=== PATIENT | male | born 1935 | race African-American/Black ===

== ENCOUNTER → 2016-11-29 | Outpatient (CLI) | payer MEDICARE, OTHER ==
[2016-11-29] VITALS (10 sets, daily range): BP systolic 99–116; BP diastolic 52–75
[~2016-11-29] MED LIST: CARI-277 PO; CYANOCOBALAMIN (B-12) 1000 MCG/1 ML VIAL IM ONE; DOBUTamine 1000MCG/ML 250 ML IV ONE; DOCU-94 PO; ESZO1TAB21 PO; EZET10TA2 PO; FURO40TA4 PO; METO25TA5 PO; NOR5T PO; POT20T PO; PRAS10TA PO; SIMV-8 PO
[2016-11-29 12:44] LABS: BUN/Creatinine Ratio 15.2; Calcium 8.5 mg/dL (8.5-10.1); Potassium 4.4 mmol/L (3.5-5.1)
[2016-11-29 12:54] LABS: Basophils # (auto) 0 uL; Basophils % (auto) 0.7 % (0.0-2.0); Eosinophils # (auto) 0.4 uL; Hemoglobin 13.6 g/dL (13.5-17.5); Lymphocytes # (auto) 1.1 uL; Mean Corpuscular Hemoglobin 31.5 pg (28.0-32.0); Mean Corpuscular Hgb Conc. 32.3 g/dL (32.0-36.0); Mean Corpuscular Volume 97.7 fL (80.0-100.0); Mean Platelet Volume 8.6 fL (7.4-10.4); Monocytes # (auto) 0.5 uL; Monocytes % (auto) 11.9 % (0.0-12.0); Neutrophils # (auto) 2.4 uL; Neutrophils % (auto) 55.4 % (37.0-80.0); Platelet Count (auto) 203 10^3/uL (140-450); Red Cell Distribution Width 14.2 % (11.6-16.0); White Blood Cell 4.4 10^3/uL (4.4-10.8)
[2016-11-29 13:00] LABS: B-Type Natriuretic Peptide 571.46 pg/mL (0-100); Temperature: 22.2 C (20.0-25.0)
== END | disposition home or self-care (01) ==
LOC: CHF HDHVI 07:33
PROVIDERS: ATTEND Internal Medicine Cardiovascular Disease
DX: I10 Essential (primary) hypertension (principal); I50.9 Heart failure, unspecified; D64.9 Anemia, unspecified
CPT/HCPCS: 36415; 80048; 83880; 85025; 96365; 96366; 96372; G0463; J1642

== ENCOUNTER → 2016-12-01 | Outpatient (CLI) | payer OTHER ==
[~2016-12-01] VITALS: Ht 30.5 cm; Wt 85.0 kg
[2016-12-01] VITALS (9 sets, daily range): BP systolic 93–112; BP diastolic 48–63
[~2016-12-01] MED LIST changes: -CYANOCOBALAMIN (B-12) 1000 MCG/1 ML VIAL IM ONE
== END ==
LOC: CHF HDHVI 07:38
PROVIDERS: ATTEND Internal Medicine Cardiovascular Disease
DX: I50.9 Heart failure, unspecified (principal); I25.10 Atherosclerotic heart disease of native coronary artery without angina pectoris; Z95.1 Presence of aortocoronary bypass graft; I10 Essential (primary) hypertension; R52 Pain, unspecified; I25.5 Ischemic cardiomyopathy
CPT/HCPCS: 96365; 96366; G0463; J1250; J1642; 96367

== ENCOUNTER → 2016-12-05 | Outpatient (CLI) | payer OTHER ==
[2016-12-05] VITALS (8 sets, daily range): BP systolic 95–113; BP diastolic 55–67
[~2016-12-05] VITALS: Ht 30.5 cm; Wt 84.5 kg
== END | disposition home or self-care (01) ==
LOC: CHF HDHVI 07:36
PROVIDERS: ATTEND Internal Medicine Cardiovascular Disease
DX: I50.9 Heart failure, unspecified (principal)
CPT/HCPCS: 96365; 96366; G0463; J1250; J1642

== ENCOUNTER → 2016-12-07 | Outpatient (CLI) | payer OTHER ==
[~2016-12-07] VITALS: Ht 30.5 cm; Wt 83.9 kg
[2016-12-07] VITALS (8 sets, daily range): BP systolic 87–103; BP diastolic 48–58
[~2016-12-07] MED LIST changes: +CYANOCOBALAMIN (B-12) 1000 MCG/1 ML VIAL IM ONE; +CYANOCOBALAMIN (B-12) 1000 MCG/1 ML VIAL ONE
[2016-12-07 17:17] LABS: B-Type Natriuretic Peptide 510.65 pg/mL (0-100)
[2016-12-07 17:18] LABS: Temperature: 22.5 C (20.0-25.0)
[2016-12-07 17:28] LABS: BUN/Creatinine Ratio 16.8; Potassium 4.1 mmol/L (3.5-5.1)
== END | disposition home or self-care (01) ==
LOC: CHF HDHVI 07:36
PROVIDERS: ATTEND Internal Medicine Cardiovascular Disease
DX: I10 Essential (primary) hypertension (principal); I50.9 Heart failure, unspecified
CPT/HCPCS: 36415; 80048; 83880; 96365; 96366; 96372; G0463; J1642

== ENCOUNTER → 2016-12-09 | Outpatient (CLI) | payer OTHER ==
[2016-12-09] VITALS (9 sets, daily range): BP systolic 86–110; BP diastolic 40–66
[~2016-12-09] MED LIST changes: -CYANOCOBALAMIN (B-12) 1000 MCG/1 ML VIAL IM ONE; -CYANOCOBALAMIN (B-12) 1000 MCG/1 ML VIAL ONE
[2016-12-09 16:14] LABS: Urine Bilirubin Negative (Negative); Urine Blood Negative /uL (Negative); Urine Color Yellow (Yellow); Urine Glucose Normal (Normal); Urine Ketone Negative (Negative); Urine Nitrite Negative (Negative); Urine Urobilinogen Normal (Negative); Urine pH 5.5 (5.0-8.0)
== END | disposition home or self-care (01) ==
LOC: CHF HDHVI 07:36
PROVIDERS: ATTEND Internal Medicine Cardiovascular Disease
DX: N39.0 Urinary tract infection, site not specified (principal)
CPT/HCPCS: 81003; 87086; 96365; 96366; 96367; G0463; J1642

== ENCOUNTER → 2016-12-12 | Outpatient (CLI) | payer OTHER ==
[2016-12-12] VITALS (9 sets, daily range): BP systolic 92–114; BP diastolic 50–78
== END | disposition home or self-care (01) ==
LOC: CHF HDHVI 07:42
PROVIDERS: ATTEND Internal Medicine Cardiovascular Disease
DX: I11.0 Hypertensive heart disease with heart failure (principal); I50.9 Heart failure, unspecified; I25.10 Atherosclerotic heart disease of native coronary artery without angina pectoris; D64.9 Anemia, unspecified; Z95.1 Presence of aortocoronary bypass graft
CPT/HCPCS: 96365; 96366; G0463; J1250; J1642

== ENCOUNTER → 2016-12-14 | Outpatient (CLI) | payer OTHER ==
[2016-12-14] VITALS (9 sets, daily range): BP systolic 92–107; BP diastolic 50–59
[2016-12-14 16:40] LABS: Basophils # (auto) 0 uL; Basophils % (auto) 0.7 % (0.0-2.0); Eosinophils # (auto) 0.3 uL; Eosinophils % (auto) 9.1 % (0.0-7.0); Hematocrit 43.6 % (41.0-53.0); Hemoglobin 14.4 g/dL (13.5-17.5); Lymphocytes # (auto) 0.9 uL; Lymphocytes % (auto) 25.7 % (10.0-50.0); Mean Corpuscular Hemoglobin 32.2 pg (28.0-32.0); Mean Corpuscular Hgb Conc. 33.1 g/dL (32.0-36.0); Mean Corpuscular Volume 97.2 fL (80.0-100.0); Mean Platelet Volume 9.2 fL (7.4-10.4); Monocytes # (auto) 0.5 uL; Monocytes % (auto) 13.5 % (0.0-12.0); Neutrophils # (auto) 1.8 uL; Platelet Count (auto) 186 10^3/uL (140-450); Red Cell Distribution Width 14.6 % (11.6-16.0); White Blood Cell 3.6 10^3/uL (4.4-10.8)
[2016-12-14 16:50] LABS: BUN/Creatinine Ratio 12.3; Calcium 8.2 mg/dL (8.5-10.1); Magnesium 2.5 mg/dL (1.6-2.6); Potassium 3.8 mmol/L (3.5-5.1)
[2016-12-14 17:11] LABS: B-Type Natriuretic Peptide 433.62 pg/mL (0-100); Temperature: 21.9 C (20.0-25.0)
== END | disposition home or self-care (01) ==
LOC: CHF HDHVI 07:32
PROVIDERS: ATTEND Internal Medicine Cardiovascular Disease
DX: I10 Essential (primary) hypertension (principal); I50.9 Heart failure, unspecified; E83.40 Disorders of magnesium metabolism, unspecified; D64.9 Anemia, unspecified
CPT/HCPCS: 36415; 80048; 83735; 83880; 85025; 85049; 96365; 96366; G0463; J1642

== ENCOUNTER → 2016-12-16 | Outpatient (CLI) | payer OTHER ==
[2016-12-16] VITALS (9 sets, daily range): BP systolic 90–104; BP diastolic 51–66
== END | disposition home or self-care (01) ==
LOC: CHF HDHVI 07:35
PROVIDERS: ATTEND Internal Medicine Cardiovascular Disease
DX: I10 Essential (primary) hypertension (principal); I50.9 Heart failure, unspecified; I25.10 Atherosclerotic heart disease of native coronary artery without angina pectoris
CPT/HCPCS: 96365; 96366; G0463; J1250; J1642

== ENCOUNTER → 2016-12-19 | Outpatient (CLI) | payer OTHER ==
[2016-12-19] VITALS (9 sets, daily range): BP systolic 87–114; BP diastolic 45–71
== END | disposition home or self-care (01) ==
LOC: CHF HDHVI 07:34
PROVIDERS: ATTEND Internal Medicine Cardiovascular Disease
DX: I50.9 Heart failure, unspecified (principal); I25.10 Atherosclerotic heart disease of native coronary artery without angina pectoris; R53.83 Other fatigue; R53.81 Other malaise
CPT/HCPCS: 96365; 96366; G0463; J1250; J1642

== ENCOUNTER → 2016-12-21 | Outpatient (CLI) | payer OTHER ==
[2016-12-21] VITALS (8 sets, daily range): BP systolic 92–135; BP diastolic 53–69
[2016-12-21 12:33] LABS: Basophils # (auto) 0.1 uL; DEFINITIVE VIEW TRANSMISSION; Eosinophils # (auto) 0.2 uL; Hematocrit 44.9 % (41.0-53.0); Hemoglobin 14.2 g/dL (13.5-17.5); Lymphocytes # (auto) 1.2 uL; Mean Corpuscular Hemoglobin 31.3 pg (28.0-32.0); Mean Corpuscular Hgb Conc. 31.7 g/dL (32.0-36.0); Mean Platelet Volume 9.1 fL (7.4-10.4); Monocytes # (auto) 0.6 uL; Monocytes % (auto) 15.1 % (0.0-12.0); Platelet Count (auto) 149 10^3/uL (140-450); Red Cell Distribution Width 13.4 % (11.6-16.0); White Blood Cell 4.1 10^3/uL (4.4-10.8)
[2016-12-21 12:36] LABS: Basophils % (auto) 0.1 % (0.0-2.0)
[2016-12-21 12:37] LABS: Lymphocytes % (auto) 31.6 % (10.0-50.0); Neutrophils % (auto) 47.2 % (37.0-80.0)
[2016-12-21 13:17] LABS: BUN/Creatinine Ratio 15.6; Calcium 8.8 mg/dL (8.5-10.1); Magnesium 2.5 mg/dL (1.6-2.6)
[2016-12-21 13:36] LABS: B-Type Natriuretic Peptide 550.91 pg/mL (0-100); Temperature: 22.4 C (20.0-25.0)
== END | disposition home or self-care (01) ==
LOC: CHF HDHVI 07:38
PROVIDERS: ATTEND Internal Medicine Cardiovascular Disease
DX: I10 Essential (primary) hypertension (principal); I50.9 Heart failure, unspecified; E83.40 Disorders of magnesium metabolism, unspecified; D64.9 Anemia, unspecified
CPT/HCPCS: 36415; 80048; 83735; 83880; 85025; 85049; 93701; 96365; 96366; G0463; J1642

== ENCOUNTER → 2016-12-23 | Outpatient (CLI) | payer OTHER ==
[2016-12-23] VITALS (8 sets, daily range): BP systolic 91–127; BP diastolic 51–70
== END | disposition home or self-care (01) ==
LOC: CHF HDHVI 07:37
PROVIDERS: ATTEND Internal Medicine Cardiovascular Disease
DX: I50.9 Heart failure, unspecified (principal); I10 Essential (primary) hypertension; I25.10 Atherosclerotic heart disease of native coronary artery without angina pectoris
CPT/HCPCS: 96365; 96366; G0463; J1250; J1642; 96367

== ENCOUNTER → 2016-12-26 | Outpatient (CLI) | payer OTHER ==
[2016-12-26] VITALS (9 sets, daily range): BP systolic 95–105; BP diastolic 52–69
[~2016-12-26] VITALS: Ht 30.5 cm; Wt 84.4 kg
[~2016-12-26] MED LIST changes: +CYANOCOBALAMIN (B-12) 1000 MCG/1 ML VIAL IM ONE; +CYANOCOBALAMIN (B-12) 1000 MCG/1 ML VIAL ONE
== END | disposition home or self-care (01) ==
LOC: CHF HDHVI 07:45
PROVIDERS: ATTEND Internal Medicine Cardiovascular Disease
DX: I50.9 Heart failure, unspecified (principal); I25.10 Atherosclerotic heart disease of native coronary artery without angina pectoris; D64.9 Anemia, unspecified; R53.81 Other malaise; R53.83 Other fatigue
CPT/HCPCS: 96365; 96366; 96372; G0463; J1250; J1642; J3420

== ENCOUNTER → 2016-12-28 | Outpatient (CLI) | payer OTHER ==
[2016-12-28] VITALS (9 sets, daily range): BP systolic 92–112; BP diastolic 52–75
[~2016-12-28] MED LIST changes: -CYANOCOBALAMIN (B-12) 1000 MCG/1 ML VIAL IM ONE; -CYANOCOBALAMIN (B-12) 1000 MCG/1 ML VIAL ONE
[2016-12-28 14:02] LABS: Basophils # (auto) 0 uL; Basophils % (auto) 0.7 % (0.0-2.0); Eosinophils # (auto) 0.3 uL; Eosinophils % (auto) 8.5 % (0.0-7.0); Hematocrit 44.2 % (41.0-53.0); Hemoglobin 14.1 g/dL (13.5-17.5); Lymphocytes % (auto) 26.3 % (10.0-50.0); Mean Corpuscular Hemoglobin 30.9 pg (28.0-32.0); Mean Corpuscular Hgb Conc. 31.9 g/dL (32.0-36.0); Mean Corpuscular Volume 96.9 fL (80.0-100.0); Mean Platelet Volume 8.9 fL (7.4-10.4); Monocytes # (auto) 0.5 uL; Monocytes % (auto) 13.9 % (0.0-12.0); Neutrophils % (auto) 50.6 % (37.0-80.0); Platelet Count (auto) 176 10^3/uL (140-450); White Blood Cell 3.9 10^3/uL (4.4-10.8)
[2016-12-28 14:16] LABS: Potassium 4.4 mmol/L (3.5-5.1)
[2016-12-28 14:46] LABS: BUN/Creatinine Ratio 16.2; Calcium 8.8 mg/dL (8.5-10.1); Magnesium 2.5 mg/dL (1.6-2.6)
[2016-12-28 16:28] LABS: B-Type Natriuretic Peptide 554.28 pg/mL (0-100); Temperature: 22.2 C (20.0-25.0)
== END | disposition home or self-care (01) ==
LOC: CHF HDHVI 07:34
PROVIDERS: ATTEND Internal Medicine Cardiovascular Disease
DX: I10 Essential (primary) hypertension (principal); I50.9 Heart failure, unspecified; E83.40 Disorders of magnesium metabolism, unspecified; D64.9 Anemia, unspecified
CPT/HCPCS: 36415; 80048; 83735; 83880; 85025; 96365; 96366; G0463; J1642

== ENCOUNTER → 2016-12-30 | Outpatient (CLI) | payer OTHER ==
[2016-12-30] VITALS (9 sets, daily range): BP systolic 95–103; BP diastolic 50–67
== END | disposition home or self-care (01) ==
LOC: CHF HDHVI 07:38
PROVIDERS: ATTEND Internal Medicine Cardiovascular Disease
DX: I11.0 Hypertensive heart disease with heart failure (principal); I50.9 Heart failure, unspecified; I25.10 Atherosclerotic heart disease of native coronary artery without angina pectoris
CPT/HCPCS: 96365; 96366; G0463; J1250; J1642; 96367

== ENCOUNTER → 2017-01-02 | Outpatient (CLI) | payer OTHER ==
[2017-01-02] VITALS (8 sets, daily range): BP systolic 94–103; BP diastolic 50–62
== END ==
LOC: CHF HDHVI 07:33
PROVIDERS: ATTEND Internal Medicine Cardiovascular Disease
DX: I11.0 Hypertensive heart disease with heart failure (principal); I50.9 Heart failure, unspecified; I25.10 Atherosclerotic heart disease of native coronary artery without angina pectoris; D64.9 Anemia, unspecified; Z95.1 Presence of aortocoronary bypass graft
CPT/HCPCS: 96365; 96366; G0463; J1250; J1642

== ENCOUNTER → 2017-01-04 | Outpatient (CLI) | payer OTHER ==
[2017-01-04] VITALS (8 sets, daily range): BP systolic 94–117; BP diastolic 51–66
[~2017-01-04] VITALS: Ht 30.5 cm; Wt 85.4 kg
[2017-01-04 14:02] LABS: B-Type Natriuretic Peptide 567.73 pg/mL (0-100)
[2017-01-04 14:04] LABS: Albumin 3.8 g/dL (3.4-5.0); Bilirubin, Direct 0.1 mg/dL (0-0.2); Bilirubin, Total 0.5 mg/dL (0.2-1.0); Potassium 4.3 mmol/L (3.5-5.1); Total Protein 7.3 g/dL (6.4-8.2)
== END | disposition home or self-care (01) ==
LOC: CHF HDHVI 07:34
PROVIDERS: ATTEND Internal Medicine Cardiovascular Disease
DX: K74.1 Hepatic sclerosis (principal); I11.0 Hypertensive heart disease with heart failure; I50.9 Heart failure, unspecified; I25.10 Atherosclerotic heart disease of native coronary artery without angina pectoris
CPT/HCPCS: 36415; 80076; 82565; 83880; 84132; 84520; 96365; 96366; G0463; J1250; J1642

== ENCOUNTER → 2017-01-06 | Outpatient (CLI) | payer OTHER ==
[2017-01-06] VITALS (9 sets, daily range): BP systolic 94–107; BP diastolic 51–71
[~2017-01-06] MED LIST changes: +CYANOCOBALAMIN (B-12) 1000 MCG/1 ML VIAL IM ONE; +CYANOCOBALAMIN (B-12) 1000 MCG/1 ML VIAL ONE
== END | disposition home or self-care (01) ==
LOC: CHF HDHVI 07:47
PROVIDERS: ATTEND Internal Medicine Cardiovascular Disease
DX: I50.9 Heart failure, unspecified (principal); D64.9 Anemia, unspecified
CPT/HCPCS: 96365; 96366; 96372; G0463; J1250; J1642; J3420

== ENCOUNTER → 2017-01-09 | Outpatient (CLI) | payer OTHER ==
[~2017-01-09] VITALS: Ht 2.5 cm; Wt 85.9 kg
[~2017-01-09] MED LIST changes: -CYANOCOBALAMIN (B-12) 1000 MCG/1 ML VIAL IM ONE; +KETOROLAC TROMETH 60MG/2ML VIAL IM ONE
[2017-01-09 07:50] VITALS: BP 104/66
[2017-01-09 08:00] VITALS: BP 96/46
[2017-01-09 08:15] VITALS: BP 87/45
[2017-01-09 08:30] VITALS: BP 81/44
[2017-01-09 09:00] VITALS: BP 89/53
[2017-01-09 09:30] VITALS: BP 88/51
[2017-01-13 12:22] VITALS: BP 112/68
[2017-01-13 12:23] VITALS: BP 118/66
[2017-01-13 12:24] VITALS: BP 118/66
[2017-01-13 12:25] VITALS: BP 118/66
== END | disposition home or self-care (01) ==
LOC: CHF HDHVI 07:37
PROVIDERS: ATTEND Internal Medicine Cardiovascular Disease
DX: I50.9 Heart failure, unspecified (principal); I25.9 Chronic ischemic heart disease, unspecified; M54.9 Dorsalgia, unspecified
CPT/HCPCS: 96365; 96366; 96372; G0463; J1250; J1642; J1885

== ENCOUNTER → 2017-01-11 | Outpatient (CLI) | payer OTHER ==
[~2017-01-11] VITALS: Ht 30.5 cm; Wt 86.2 kg
[2017-01-11] VITALS (9 sets, daily range): BP systolic 92–111; BP diastolic 52–72
[~2017-01-11] MED LIST changes: -CYANOCOBALAMIN (B-12) 1000 MCG/1 ML VIAL ONE; -KETOROLAC TROMETH 60MG/2ML VIAL IM ONE
[2017-01-11 13:10] LABS: Potassium 4.2 mmol/L (3.5-5.1)
[2017-01-11 13:23] LABS: Basophils # (auto) 0 uL; Basophils % (auto) 0.5 % (0.0-2.0); Eosinophils # (auto) 0.3 uL; Hematocrit 42.6 % (41.0-53.0); Hemoglobin 13.8 g/dL (13.5-17.5); Lymphocytes # (auto) 1.1 uL; Lymphocytes % (auto) 28.9 % (10.0-50.0); Mean Corpuscular Hemoglobin 31.6 pg (28.0-32.0); Mean Corpuscular Hgb Conc. 32.3 g/dL (32.0-36.0); Mean Corpuscular Volume 97.7 fL (80.0-100.0); Mean Platelet Volume 8.9 fL (7.4-10.4); Monocytes # (auto) 0.4 uL; Monocytes % (auto) 11.8 % (0.0-12.0); Neutrophils % (auto) 51.8 % (37.0-80.0); Platelet Count (auto) 153 10^3/uL (140-450); Red Cell Distribution Width 14.2 % (11.6-16.0); White Blood Cell 3.8 10^3/uL (4.4-10.8)
[2017-01-11 16:36] LABS: B-Type Natriuretic Peptide 622.91 pg/mL (0-100); Temperature: 23.1 C (20.0-25.0)
== END | disposition home or self-care (01) ==
LOC: CHF HDHVI 07:37
PROVIDERS: ATTEND Internal Medicine Cardiovascular Disease
DX: I50.9 Heart failure, unspecified (principal); Z79.899 Other long term (current) drug therapy; D64.9 Anemia, unspecified
CPT/HCPCS: 36415; 82565; 83880; 84132; 84520; 85025; 96365; 96366; G0463; J1642

== ENCOUNTER → 2017-01-13 | Outpatient (CLI) | payer OTHER ==
[2017-01-13] VITALS (9 sets, daily range): BP systolic 100–140; BP diastolic 59–82
== END | disposition home or self-care (01) ==
LOC: CHF HDHVI 07:36
PROVIDERS: ATTEND Internal Medicine Cardiovascular Disease
DX: I11.0 Hypertensive heart disease with heart failure (principal); I50.9 Heart failure, unspecified; I25.10 Atherosclerotic heart disease of native coronary artery without angina pectoris
CPT/HCPCS: 96365; 96366; G0463; J1250; J1642

== ENCOUNTER → 2017-01-16 | Outpatient (CLI) | payer OTHER ==
[~2017-01-16] VITALS: Ht 30.5 cm; Wt 0.5 kg
[2017-01-16] VITALS (9 sets, daily range): BP systolic 89–102; BP diastolic 52–69
[~2017-01-16] MED LIST changes: +CYANOCOBALAMIN (B-12) 1000 MCG/1 ML VIAL IM ONE; +CYANOCOBALAMIN (B-12) 1000 MCG/1 ML VIAL ONE
== END | disposition home or self-care (01) ==
LOC: CHF HDHVI 07:38
PROVIDERS: ATTEND Internal Medicine Cardiovascular Disease
DX: I11.0 Hypertensive heart disease with heart failure (principal); I50.9 Heart failure, unspecified; D64.9 Anemia, unspecified; R53.83 Other fatigue; R53.81 Other malaise; Z95.1 Presence of aortocoronary bypass graft
CPT/HCPCS: 96365; 96366; 96372; G0463; J1250; J1642; J3420

== ENCOUNTER → 2017-01-18 | Outpatient (CLI) | payer OTHER ==
[2017-01-18] VITALS (10 sets, daily range): BP systolic 95–110; BP diastolic 55–74
[~2017-01-18] MED LIST changes: -CYANOCOBALAMIN (B-12) 1000 MCG/1 ML VIAL IM ONE; -CYANOCOBALAMIN (B-12) 1000 MCG/1 ML VIAL ONE
[2017-01-18 13:14] LABS: B-Type Natriuretic Peptide 698.92 pg/mL (0-100)
[2017-01-18 13:19] LABS: Calcium 9.4 mg/dL (8.5-10.1); Potassium 5.2 mmol/L (3.5-5.1)
== END | disposition home or self-care (01) ==
LOC: CHF HDHVI 07:39
PROVIDERS: ATTEND Internal Medicine Cardiovascular Disease
DX: I10 Essential (primary) hypertension (principal); I50.9 Heart failure, unspecified; E11.9 Type 2 diabetes mellitus without complications
CPT/HCPCS: 36415; 80048; 83036; 83880; 96365; 96366; G0463; J1642

== ENCOUNTER → 2017-01-20 | Outpatient (CLI) | payer OTHER ==
[2017-01-20] VITALS (8 sets, daily range): BP systolic 90–111; BP diastolic 52–77
== END | disposition home or self-care (01) ==
LOC: CHF HDHVI 07:46
PROVIDERS: ATTEND Internal Medicine Cardiovascular Disease
DX: I11.0 Hypertensive heart disease with heart failure (principal); I50.9 Heart failure, unspecified; I25.10 Atherosclerotic heart disease of native coronary artery without angina pectoris; D64.9 Anemia, unspecified; Z95.1 Presence of aortocoronary bypass graft
CPT/HCPCS: 96365; 96366; G0463; J1250; J1642

== ENCOUNTER → 2017-01-23 | Outpatient (CLI) | payer OTHER ==
[2017-01-23] VITALS (10 sets, daily range): BP systolic 94–112; BP diastolic 52–78
[~2017-01-23] MED LIST changes: +CYANOCOBALAMIN (B-12) 1000 MCG/1 ML VIAL IM ONE; +CYANOCOBALAMIN (B-12) 1000 MCG/1 ML VIAL ONE
== END | disposition home or self-care (01) ==
LOC: CHF HDHVI 07:34
PROVIDERS: ATTEND Internal Medicine Cardiovascular Disease
DX: I11.0 Hypertensive heart disease with heart failure (principal); I50.9 Heart failure, unspecified; I25.10 Atherosclerotic heart disease of native coronary artery without angina pectoris; D64.9 Anemia, unspecified; Z95.1 Presence of aortocoronary bypass graft
CPT/HCPCS: 96365; 96366; 96372; G0463; J1250; J1642; J3420

== ENCOUNTER → 2017-01-25 | Outpatient (CLI) | payer OTHER ==
[2017-01-25] VITALS (7 sets, daily range): BP systolic 95–119; BP diastolic 53–80
[~2017-01-25] MED LIST changes: -CYANOCOBALAMIN (B-12) 1000 MCG/1 ML VIAL IM ONE; -CYANOCOBALAMIN (B-12) 1000 MCG/1 ML VIAL ONE
[2017-01-25 12:12] LABS: Basophils # (auto) 0 uL; Basophils % (auto) 0.4 % (0.0-2.0); Eosinophils # (auto) 0.3 uL; Eosinophils % (auto) 6.9 % (0.0-7.0); Hematocrit 49.1 % (41.0-53.0); Hemoglobin 16.2 g/dL (13.5-17.5); Lymphocytes # (auto) 1.6 uL; Lymphocytes % (auto) 34.9 % (10.0-50.0); Mean Platelet Volume 8.8 fL (7.4-10.4); Monocytes # (auto) 0.6 uL; Monocytes % (auto) 13.5 % (0.0-12.0); Neutrophils # (auto) 2.1 uL; Neutrophils % (auto) 44.3 % (37.0-80.0); Platelet Count (auto) 187 10^3/uL (140-450); Red Cell Distribution Width 14.4 % (11.6-16.0); White Blood Cell 4.7 10^3/uL (4.4-10.8)
[2017-01-25 14:18] LABS: Potassium 6.4 mmol/L (3.5-5.1)
== END | disposition home or self-care (01) ==
LOC: CHF HDHVI 07:44
PROVIDERS: ATTEND Internal Medicine Cardiovascular Disease
DX: I50.9 Heart failure, unspecified (principal); Z79.899 Other long term (current) drug therapy; D64.9 Anemia, unspecified
CPT/HCPCS: 36415; 82565; 83880; 84132; 84520; 85025; J1642

== ENCOUNTER → 2017-01-27 | Outpatient (CLI) | payer OTHER ==
[2017-01-27] VITALS (8 sets, daily range): BP systolic 94–113; BP diastolic 51–67
== END | disposition home or self-care (01) ==
LOC: CHF HDHVI 07:37
PROVIDERS: ATTEND Internal Medicine Cardiovascular Disease
DX: I11.0 Hypertensive heart disease with heart failure (principal); I50.9 Heart failure, unspecified; I25.10 Atherosclerotic heart disease of native coronary artery without angina pectoris; Z95.1 Presence of aortocoronary bypass graft; Z79.899 Other long term (current) drug therapy
CPT/HCPCS: 96365; 96366; G0463; J1250; J1642

== ENCOUNTER → 2017-01-30 | Outpatient (CLI) | payer OTHER ==
[2017-01-30] VITALS (9 sets, daily range): BP systolic 95–110; BP diastolic 58–70
== END | disposition home or self-care (01) ==
LOC: CHF HDHVI 07:39
PROVIDERS: ATTEND Internal Medicine Cardiovascular Disease
DX: I11.0 Hypertensive heart disease with heart failure (principal); I50.9 Heart failure, unspecified; I25.10 Atherosclerotic heart disease of native coronary artery without angina pectoris
CPT/HCPCS: 96365; 96366; G0463; J1250; J1642

== ENCOUNTER → 2017-02-01 | Outpatient (CLI) | payer OTHER ==
[2017-02-01] VITALS (9 sets, daily range): BP systolic 91–113; BP diastolic 53–77
[2017-02-01 12:37] LABS: Basophils # (auto) 0 uL; Basophils % (auto) 0.7 % (0.0-2.0); Eosinophils # (auto) 0.4 uL; Hematocrit 43.1 % (41.0-53.0); Hemoglobin 14.3 g/dL (13.5-17.5); Lymphocytes # (auto) 1.2 uL; Lymphocytes % (auto) 30.1 % (10.0-50.0); Mean Corpuscular Hgb Conc. 33.1 g/dL (32.0-36.0); Mean Corpuscular Volume 96.6 fL (80.0-100.0); Mean Platelet Volume 8.9 fL (7.4-10.4); Monocytes # (auto) 0.6 uL; Monocytes % (auto) 14.5 % (0.0-12.0); Neutrophils # (auto) 1.9 uL; Neutrophils % (auto) 45.7 % (37.0-80.0); Platelet Count (auto) 168 10^3/uL (140-450); Red Cell Distribution Width 14.2 % (11.6-16.0); White Blood Cell 4.1 10^3/uL (4.4-10.8)
[2017-02-01 13:14] LABS: BUN/Creatinine Ratio 16.8; Magnesium 2.5 mg/dL (1.6-2.6); Potassium 4.3 mmol/L (3.5-5.1)
[2017-02-01 13:27] LABS: B-Type Natriuretic Peptide 612.81 pg/mL (0-100)
== END | disposition home or self-care (01) ==
LOC: CHF HDHVI 09:02
PROVIDERS: ATTEND Internal Medicine Cardiovascular Disease
DX: I10 Essential (primary) hypertension (principal); I50.9 Heart failure, unspecified; E83.40 Disorders of magnesium metabolism, unspecified; D64.9 Anemia, unspecified
CPT/HCPCS: 36415; 80048; 83735; 83880; 85025; 96365; 96366; G0463; J1642

== ENCOUNTER → 2017-02-03 | Outpatient (CLI) | payer OTHER ==
[2017-02-03] VITALS (10 sets, daily range): BP systolic 93–109; BP diastolic 55–67
== END | disposition home or self-care (01) ==
LOC: CHF HDHVI 07:39
PROVIDERS: ATTEND Internal Medicine Cardiovascular Disease
DX: I10 Essential (primary) hypertension (principal); I50.9 Heart failure, unspecified; I25.10 Atherosclerotic heart disease of native coronary artery without angina pectoris; D64.9 Anemia, unspecified; Z95.1 Presence of aortocoronary bypass graft
CPT/HCPCS: 96365; 96366; G0463; J1250; J1642

== ENCOUNTER 2017-02-07 12:23 | Emergency (ER) | payer OTHER ==
[~2017-02-07] VITALS: Ht 180.3 cm; Wt 86.2 kg
[~2017-02-07 12:23] MED LIST changes: -DOBUTamine 1000MCG/ML 250 ML IV ONE
[2017-02-07 13:41] LABS: Hematocrit 43.5 % (41.0-53.0); Hemoglobin 14.6 g/dL (13.5-17.5); Mean Corpuscular Hemoglobin 32.4 pg (28.0-32.0); Mean Corpuscular Hgb Conc. 33.6 g/dL (32.0-36.0); Mean Corpuscular Volume 96.3 fL (80.0-100.0); Mean Platelet Volume 8.3 fL (7.4-10.4); Platelet Count (auto) 172 10^3/uL (140-450); White Blood Cell 4.2 10^3/uL (4.4-10.8)
[2017-02-07 13:44] LABS: Metamyelocytes % 0; Myelocytes % 0; Promyelocytes % 0; Reactive Lymphocytes 0
[2017-02-07 13:55] LABS: Partial Thromboplastin Time 26.1 sec (22.64-33.71); Prothrombin Time 11.9 sec (9.37-12.3)
[2017-02-07 13:59] LABS: INR 1.16 (0.9-1.15)
[2017-02-07 14:05] LABS: Albumin 3.7 g/dL (3.4-5.0); Anion Gap 8 (5-15); Aspartate Aminotransferase 20 U/L (15-37); BUN/Creatinine Ratio 13.7; Blood Urea Nitrogen 16 mg/dL (7-18); Calcium 8.3 mg/dL (8.5-10.1); Carbon Dioxide 27 mmol/L (21-32); Chloride 103 mmol/L (98-107); GFR African American 77 mL/min; GFR Non-African American 63 mL/min; Glucose 105 mg/dL (74-106); Sodium 138 mmol/L (136-145)
[2017-02-07 14:09] LABS: Alkaline Phosphatase 53 U/L (45-117); Bilirubin, Total 0.6 mg/dL (0.2-1.0); Total Protein 7.2 g/dL (6.4-8.2)
[2017-02-07 15:30] VITALS: BP 149/85
[2017-02-07 15:35] LABS: Platelet Estimate Adequate
[2017-02-07 15:36] LABS: RBC Morphology Normal
[2017-02-07 15:43] LABS: B-Type Natriuretic Peptide 826.46 pg/mL (0-100); Temperature: 23.7 C (20.0-25.0)
== END 2017-02-07 16:08 | disposition home or self-care (01) ==
LOC: ER 12:28
DX: I48.91 Unspecified atrial fibrillation (principal); I11.0 Hypertensive heart disease with heart failure; I50.9 Heart failure, unspecified; E78.5 Hyperlipidemia, unspecified; I25.810 Atherosclerosis of coronary artery bypass graft(s) without angina pectoris; Z95.1 Presence of aortocoronary bypass graft; Z88.8 Allergy status to other drugs, medicaments and biological substances; Z86.73 Personal history of transient ischemic attack (TIA), and cerebral infarction without residual deficits; Z87.440 Personal history of urinary (tract) infections; Z95.0 Presence of cardiac pacemaker
CPT/HCPCS: 36415; 71010; 80053; 83880; 84484; 85007; 85027; 85610; 85730; 93005

== ENCOUNTER → 2017-02-10 | Outpatient (CLI) | payer OTHER ==
[~2017-02-10] MED LIST changes: +DOBUTamine 1000MCG/ML 250 ML IV ONE
[2017-02-10 07:50] VITALS: BP 107/60
[2017-02-10 08:00] VITALS: BP 100/57
[2017-02-10 08:15] VITALS: BP 99/54
[2017-02-10 11:05] VITALS: BP 125/69
== END | disposition home or self-care (01) ==
LOC: CHF HDHVI 07:42
PROVIDERS: ATTEND Internal Medicine Cardiovascular Disease
DX: I50.9 Heart failure, unspecified (principal); I11.0 Hypertensive heart disease with heart failure; I25.10 Atherosclerotic heart disease of native coronary artery without angina pectoris; Z95.0 Presence of cardiac pacemaker; R00.2 Palpitations; E78.5 Hyperlipidemia, unspecified
CPT/HCPCS: 96365; 96366; G0463; J1250; J1642

== ENCOUNTER → 2017-02-13 | Outpatient (CLI) | payer OTHER ==
[2017-02-13] VITALS (8 sets, daily range): BP systolic 94–131; BP diastolic 52–77
[~2017-02-13] MED LIST changes: +CYANOCOBALAMIN (B-12) 1000 MCG/1 ML VIAL IM ONE; +CYANOCOBALAMIN (B-12) 1000 MCG/1 ML VIAL ONE
== END | disposition home or self-care (01) ==
LOC: CHF HDHVI 07:31
PROVIDERS: ATTEND Internal Medicine Cardiovascular Disease
DX: I11.0 Hypertensive heart disease with heart failure (principal); I50.9 Heart failure, unspecified; D64.9 Anemia, unspecified; E78.5 Hyperlipidemia, unspecified; Z95.0 Presence of cardiac pacemaker
CPT/HCPCS: 96365; 96366; 96372; G0463; J1250; J1642; J3420

== ENCOUNTER → 2017-02-15 | Outpatient (CLI) | payer OTHER ==
[2017-02-15] VITALS (10 sets, daily range): BP systolic 91–108; BP diastolic 46–64
[~2017-02-15] MED LIST changes: -CYANOCOBALAMIN (B-12) 1000 MCG/1 ML VIAL IM ONE; -CYANOCOBALAMIN (B-12) 1000 MCG/1 ML VIAL ONE
[2017-02-15 12:17] LABS: Basophils # (auto) 0 uL; Basophils % (auto) 0.6 % (0.0-2.0); Eosinophils # (auto) 0.4 uL; Eosinophils % (auto) 9.2 % (0.0-7.0); Hematocrit 44.1 % (41.0-53.0); Hemoglobin 14.6 g/dL (13.5-17.5); Lymphocytes # (auto) 1.1 uL; Lymphocytes % (auto) 27.5 % (10.0-50.0); Mean Corpuscular Hemoglobin 32.1 pg (28.0-32.0); Mean Corpuscular Hgb Conc. 33.1 g/dL (32.0-36.0); Mean Corpuscular Volume 96.9 fL (80.0-100.0); Mean Platelet Volume 9.1 fL (7.4-10.4); Monocytes # (auto) 0.6 uL; Monocytes % (auto) 14.2 % (0.0-12.0); Neutrophils % (auto) 48.5 % (37.0-80.0); Platelet Count (auto) 176 10^3/uL (140-450); Red Cell Distribution Width 14.6 % (11.6-16.0); White Blood Cell 4.1 10^3/uL (4.4-10.8)
[2017-02-15 13:59] LABS: B-Type Natriuretic Peptide 806.15 pg/mL (0-100); Temperature: 22.5 C (20.0-25.0)
[2017-02-15 15:29] LABS: BUN/Creatinine Ratio 14.4; Calcium 8.9 mg/dL (8.5-10.1); Magnesium 2.4 mg/dL (1.6-2.6); Potassium 4.1 mmol/L (3.5-5.1)
== END | disposition home or self-care (01) ==
LOC: CHF HDHVI 07:35
PROVIDERS: ATTEND Internal Medicine Cardiovascular Disease
DX: I10 Essential (primary) hypertension (principal); I50.9 Heart failure, unspecified; Z79.899 Other long term (current) drug therapy; D64.9 Anemia, unspecified
CPT/HCPCS: 36415; 80048; 83735; 83880; 85025; 96365; 96366; G0463; J1642

== ENCOUNTER → 2017-02-17 | Outpatient (CLI) | payer OTHER ==
[2017-02-17] VITALS (8 sets, daily range): BP systolic 90–114; BP diastolic 51–66
== END | disposition home or self-care (01) ==
LOC: CHF HDHVI 07:38
PROVIDERS: ATTEND Internal Medicine Cardiovascular Disease
DX: I11.0 Hypertensive heart disease with heart failure (principal); I50.9 Heart failure, unspecified; I25.10 Atherosclerotic heart disease of native coronary artery without angina pectoris; D64.9 Anemia, unspecified; Z95.0 Presence of cardiac pacemaker; E78.5 Hyperlipidemia, unspecified
CPT/HCPCS: 96365; 96366; G0463; J1250; J1642

== ENCOUNTER → 2017-02-20 | Outpatient (CLI) | payer OTHER ==
[2017-02-20] VITALS (8 sets, daily range): BP systolic 97–118; BP diastolic 58–75
[~2017-02-20] MED LIST changes: +POTASSIUM CHL 20MEQ/100ML 100 ML IV ONE; +POTASSIUM CHL 20MEQ/100ML 50 ML IV ONE
== END | disposition home or self-care (01) ==
LOC: CHF HDHVI 07:41
PROVIDERS: ATTEND Internal Medicine Cardiovascular Disease
DX: I11.0 Hypertensive heart disease with heart failure (principal); I50.9 Heart failure, unspecified; I25.10 Atherosclerotic heart disease of native coronary artery without angina pectoris; D64.9 Anemia, unspecified; E78.5 Hyperlipidemia, unspecified; Z95.0 Presence of cardiac pacemaker
CPT/HCPCS: 96365; 96366; G0463; J1250; J1642; J3480

== ENCOUNTER → 2017-02-22 | Outpatient (CLI) | payer OTHER ==
[2017-02-22] VITALS (10 sets, daily range): BP systolic 91–118; BP diastolic 57–74
[~2017-02-22] MED LIST changes: -POTASSIUM CHL 20MEQ/100ML 100 ML IV ONE; -POTASSIUM CHL 20MEQ/100ML 50 ML IV ONE
[2017-02-22 12:23] LABS: Basophils # (auto) 0 uL; Basophils % (auto) 0.5 % (0.0-2.0); Eosinophils # (auto) 0.3 uL; Eosinophils % (auto) 7.6 % (0.0-7.0); Hematocrit 43.4 % (41.0-53.0); Hemoglobin 14.4 g/dL (13.5-17.5); Lymphocytes # (auto) 1.2 uL; Lymphocytes % (auto) 28.1 % (10.0-50.0); Mean Corpuscular Hgb Conc. 33.1 g/dL (32.0-36.0); Mean Corpuscular Volume 96.6 fL (80.0-100.0); Monocytes # (auto) 0.6 uL; Monocytes % (auto) 13.5 % (0.0-12.0); Neutrophils # (auto) 2.2 uL; Neutrophils % (auto) 50.3 % (37.0-80.0); Platelet Count (auto) 175 10^3/uL (140-450); Red Cell Distribution Width 14.6 % (11.6-16.0); White Blood Cell 4.4 10^3/uL (4.4-10.8)
[2017-02-22 13:02] LABS: BUN/Creatinine Ratio 14.6; Calcium 8.8 mg/dL (8.5-10.1); Potassium 4.4 mmol/L (3.5-5.1)
[2017-02-22 14:09] LABS: Temperature: 23.1 C (20.0-25.0)
== END | disposition home or self-care (01) ==
LOC: CHF HDHVI 07:27
PROVIDERS: ATTEND Internal Medicine Cardiovascular Disease
DX: I10 Essential (primary) hypertension (principal); I50.9 Heart failure, unspecified; Z79.899 Other long term (current) drug therapy; D64.9 Anemia, unspecified
CPT/HCPCS: 36415; 80048; 83880; 85025; 96365; 96366; G0463; J1642

== ENCOUNTER → 2017-02-24 | Outpatient (CLI) | payer OTHER ==
[2017-02-24 08:00] VITALS: BP 114/70
[2017-02-24 08:15] VITALS: BP 127/70
[2017-02-24 08:30] VITALS: BP 134/83
[2017-02-24 08:45] VITALS: BP 122/75
[2017-02-24 11:10] VITALS: BP 110/66
== END | disposition home or self-care (01) ==
LOC: CHF HDHVI 07:36
PROVIDERS: ATTEND Internal Medicine Cardiovascular Disease
DX: I11.0 Hypertensive heart disease with heart failure (principal); I50.9 Heart failure, unspecified; I25.10 Atherosclerotic heart disease of native coronary artery without angina pectoris; D64.9 Anemia, unspecified; Z95.0 Presence of cardiac pacemaker; I42.0 Dilated cardiomyopathy
CPT/HCPCS: 96365; 96366; G0463; J1250; J1642

== ENCOUNTER → 2017-02-27 | Outpatient (CLI) | payer OTHER ==
[2017-02-27] VITALS (9 sets, daily range): BP systolic 94–119; BP diastolic 55–82
== END ==
LOC: CHF HDHVI 07:34
PROVIDERS: ATTEND Internal Medicine Cardiovascular Disease
DX: I11.0 Hypertensive heart disease with heart failure (principal); I50.9 Heart failure, unspecified; I25.10 Atherosclerotic heart disease of native coronary artery without angina pectoris; D64.9 Anemia, unspecified; E78.5 Hyperlipidemia, unspecified; Z95.0 Presence of cardiac pacemaker
CPT/HCPCS: 96365; 96366; G0463; J1250; J1642

== ENCOUNTER → 2017-03-01 | Outpatient (CLI) | payer OTHER ==
[2017-03-01] VITALS (10 sets, daily range): BP systolic 94–117; BP diastolic 53–72
[2017-03-01 13:49] LABS: Temperature: 22.4 C (20.0-25.0)
== END | disposition home or self-care (01) ==
LOC: CHF HDHVI 07:34
PROVIDERS: ATTEND Internal Medicine Cardiovascular Disease
DX: I50.9 Heart failure, unspecified (principal); R94.4 Abnormal results of kidney function studies; I10 Essential (primary) hypertension; E55.9 Vitamin D deficiency, unspecified
CPT/HCPCS: 36415; 82306; 82565; 83880; 84132; 84520; 96365; 96366; G0463; J1642

== ENCOUNTER → 2017-03-03 | Outpatient (CLI) | payer OTHER ==
[2017-03-03] VITALS (9 sets, daily range): BP systolic 100–124; BP diastolic 54–73
== END | disposition home or self-care (01) ==
LOC: CHF HDHVI 07:35
PROVIDERS: ATTEND Internal Medicine Cardiovascular Disease
DX: I11.0 Hypertensive heart disease with heart failure (principal); I50.9 Heart failure, unspecified; D64.9 Anemia, unspecified; E78.5 Hyperlipidemia, unspecified; Z95.0 Presence of cardiac pacemaker
CPT/HCPCS: 96365; 96366; G0463; J1250; J1642

== ENCOUNTER → 2017-03-06 | Outpatient (CLI) | payer OTHER ==
[2017-03-06] VITALS (9 sets, daily range): BP systolic 94–111; BP diastolic 51–67
[~2017-03-06] MED LIST changes: +CYANOCOBALAMIN (B-12) 1000 MCG/1 ML VIAL IM ONE; +CYANOCOBALAMIN (B-12) 1000 MCG/1 ML VIAL ONE
== END ==
LOC: CHF HDHVI 07:34
PROVIDERS: ATTEND Internal Medicine Cardiovascular Disease
DX: I11.0 Hypertensive heart disease with heart failure (principal); I50.9 Heart failure, unspecified; I25.10 Atherosclerotic heart disease of native coronary artery without angina pectoris; D64.9 Anemia, unspecified; E78.5 Hyperlipidemia, unspecified; Z95.0 Presence of cardiac pacemaker
CPT/HCPCS: 96365; 96366; 96372; G0463; J1250; J1642; J3420

== ENCOUNTER → 2017-03-08 | Outpatient (CLI) | payer OTHER ==
[~2017-03-08] VITALS: Ht 30.5 cm; Wt 88.9 kg
[2017-03-08] VITALS (10 sets, daily range): BP systolic 97–118; BP diastolic 54–67
[~2017-03-08] MED LIST changes: -CYANOCOBALAMIN (B-12) 1000 MCG/1 ML VIAL IM ONE; -CYANOCOBALAMIN (B-12) 1000 MCG/1 ML VIAL ONE
[2017-03-08 16:10] LABS: Basophils # (auto) 0 uL; Basophils % (auto) 0.4 % (0.0-2.0); Eosinophils # (auto) 0.3 uL; Eosinophils % (auto) 7.9 % (0.0-7.0); Hematocrit 42.3 % (41.0-53.0); Hemoglobin 14.1 g/dL (13.5-17.5); Lymphocytes # (auto) 1.3 uL; Lymphocytes % (auto) 29.9 % (10.0-50.0); Mean Corpuscular Hemoglobin 31.8 pg (28.0-32.0); Mean Corpuscular Hgb Conc. 33.2 g/dL (32.0-36.0); Mean Corpuscular Volume 95.8 fL (80.0-100.0); Mean Platelet Volume 9.2 fL (7.4-10.4); Monocytes # (auto) 0.5 uL; Monocytes % (auto) 11.5 % (0.0-12.0); Neutrophils # (auto) 2.2 uL; Neutrophils % (auto) 50.3 % (37.0-80.0); Platelet Count (auto) 178 10^3/uL (140-450); Red Cell Distribution Width 14.6 % (11.6-16.0); White Blood Cell 4.3 10^3/uL (4.4-10.8)
[2017-03-08 16:17] LABS: BUN/Creatinine Ratio 16.5; Potassium 4.1 mmol/L (3.5-5.1)
[2017-03-08 16:34] LABS: B-Type Natriuretic Peptide 751.23 pg/mL (0-100); Temperature: 23.7 C (20.0-25.0)
== END | disposition home or self-care (01) ==
LOC: CHF HDHVI 07:34
PROVIDERS: ATTEND Internal Medicine Cardiovascular Disease
DX: I11.0 Hypertensive heart disease with heart failure (principal); I50.9 Heart failure, unspecified; I25.10 Atherosclerotic heart disease of native coronary artery without angina pectoris; D64.9 Anemia, unspecified; E78.5 Hyperlipidemia, unspecified; Z95.0 Presence of cardiac pacemaker
CPT/HCPCS: 36415; 80048; 83880; 85025; 96365; 96366; G0463; J1250; J1642

== ENCOUNTER → 2017-03-10 | Outpatient (CLI) | payer OTHER ==
[2017-03-10] VITALS (8 sets, daily range): BP systolic 97–115; BP diastolic 54–78
== END | disposition home or self-care (01) ==
LOC: CHF HDHVI 07:36
PROVIDERS: ATTEND Internal Medicine Cardiovascular Disease
DX: I50.9 Heart failure, unspecified (principal); I25.10 Atherosclerotic heart disease of native coronary artery without angina pectoris; I42.0 Dilated cardiomyopathy
CPT/HCPCS: 96365; 96366; G0463; J1250; J1642

== ENCOUNTER → 2017-03-13 | Outpatient (CLI) | payer OTHER ==
[2017-03-13] VITALS (9 sets, daily range): BP systolic 104–112; BP diastolic 53–72
[~2017-03-13] MED LIST changes: +CYANOCOBALAMIN (B-12) 1000 MCG/1 ML VIAL IM ONE; +CYANOCOBALAMIN (B-12) 1000 MCG/1 ML VIAL ONE
== END | disposition home or self-care (01) ==
LOC: CHF HDHVI 07:36
PROVIDERS: ATTEND Internal Medicine Cardiovascular Disease
DX: I50.9 Heart failure, unspecified (principal); I25.10 Atherosclerotic heart disease of native coronary artery without angina pectoris; I42.0 Dilated cardiomyopathy; D64.9 Anemia, unspecified
CPT/HCPCS: 93701; 96365; 96366; 96372; G0463; J1250; J1642; J3420

== ENCOUNTER → 2017-03-15 | Outpatient (CLI) | payer OTHER ==
[2017-03-15] VITALS (9 sets, daily range): BP systolic 92–119; BP diastolic 52–73
[~2017-03-15] MED LIST changes: -CYANOCOBALAMIN (B-12) 1000 MCG/1 ML VIAL IM ONE; -CYANOCOBALAMIN (B-12) 1000 MCG/1 ML VIAL ONE
[2017-03-15 13:36] LABS: B-Type Natriuretic Peptide 800.23 pg/mL (0-100); Temperature: 22.9 C (20.0-25.0)
[2017-03-15 13:49] LABS: Potassium 4.3 mmol/L (3.5-5.1)
== END | disposition home or self-care (01) ==
LOC: CHF HDHVI 07:33
PROVIDERS: ATTEND Internal Medicine Cardiovascular Disease
DX: I10 Essential (primary) hypertension (principal); I50.9 Heart failure, unspecified; R94.4 Abnormal results of kidney function studies; Z79.899 Other long term (current) drug therapy
CPT/HCPCS: 36415; 82565; 83880; 84132; 84520; J1642

== ENCOUNTER → 2017-03-17 | Outpatient (CLI) | payer OTHER ==
[~2017-03-17] VITALS: Ht 30.5 cm; Wt 88.7 kg
[2017-03-17] VITALS (9 sets, daily range): BP systolic 102–128; BP diastolic 61–83
== END | disposition home or self-care (01) ==
LOC: CHF HDHVI 07:33
PROVIDERS: ATTEND Internal Medicine Cardiovascular Disease
DX: I50.9 Heart failure, unspecified (principal)
CPT/HCPCS: 96365; 96366; G0463; J1250; J1642

== ENCOUNTER → 2017-03-20 | Outpatient (CLI) | payer OTHER ==
[2017-03-20] VITALS (8 sets, daily range): BP systolic 96–116; BP diastolic 57–78
[~2017-03-20] MED LIST changes: +CYANOCOBALAMIN (B-12) 1000 MCG/1 ML VIAL IM ONE; +CYANOCOBALAMIN (B-12) 1000 MCG/1 ML VIAL ONE
== END | disposition home or self-care (01) ==
LOC: CHF HDHVI 07:35
PROVIDERS: ATTEND Internal Medicine Cardiovascular Disease
DX: I50.9 Heart failure, unspecified (principal)
CPT/HCPCS: 96365; 96366; 96372; G0463; J1250; J1642; J3420

== ENCOUNTER → 2017-03-22 | Outpatient (CLI) | payer OTHER ==
[~2017-03-22] VITALS: Ht 30.5 cm; Wt 89.4 kg
[2017-03-22] VITALS (9 sets, daily range): BP systolic 91–128; BP diastolic 48–70
[~2017-03-22] MED LIST changes: -CYANOCOBALAMIN (B-12) 1000 MCG/1 ML VIAL IM ONE; -CYANOCOBALAMIN (B-12) 1000 MCG/1 ML VIAL ONE
[2017-03-22 13:01] LABS: B-Type Natriuretic Peptide 728.35 pg/mL (0-100); Temperature: 23.1 C (20.0-25.0)
[2017-03-22 13:03] LABS: BUN/Creatinine Ratio 15.4; Calcium 8.7 mg/dL (8.5-10.1); Potassium 4.4 mmol/L (3.5-5.1)
== END | disposition home or self-care (01) ==
LOC: CHF HDHVI 07:44
PROVIDERS: ATTEND Internal Medicine Cardiovascular Disease
DX: I10 Essential (primary) hypertension (principal); I50.9 Heart failure, unspecified
CPT/HCPCS: 36415; 80048; 83880; 96365; 96366; G0463; J1642

== ENCOUNTER → 2017-03-24 | Outpatient (CLI) | payer OTHER ==
[~2017-03-24] VITALS: Ht 30.5 cm; Wt 89.0 kg
[2017-03-24 08:15] VITALS: BP 96/57
[2017-03-24 08:30] VITALS: BP 99/59
[2017-03-24 08:45] VITALS: BP 107/61
[2017-03-24 09:00] VITALS: BP 95/57
[2017-03-24 09:30] VITALS: BP 103/58
[2017-03-24 11:15] VITALS: BP 113/72
== END | disposition home or self-care (01) ==
LOC: CHF HDHVI 07:33
PROVIDERS: ATTEND Internal Medicine Cardiovascular Disease
DX: E83.40 Disorders of magnesium metabolism, unspecified (principal)
CPT/HCPCS: 36415; 83735; J1642

== ENCOUNTER → 2017-03-27 | Outpatient (CLI) | payer OTHER ==
[2017-03-27] VITALS (9 sets, daily range): BP systolic 98–111; BP diastolic 51–73
== END | disposition home or self-care (01) ==
LOC: CHF HDHVI 07:36
PROVIDERS: ATTEND Internal Medicine Cardiovascular Disease
DX: I11.0 Hypertensive heart disease with heart failure (principal); I50.9 Heart failure, unspecified; I25.10 Atherosclerotic heart disease of native coronary artery without angina pectoris; Z95.0 Presence of cardiac pacemaker; D64.9 Anemia, unspecified; E78.5 Hyperlipidemia, unspecified
CPT/HCPCS: 96365; 96366; G0463; J1250; J1642

== ENCOUNTER → 2017-03-29 | Outpatient (CLI) | payer OTHER ==
[2017-03-29] VITALS (9 sets, daily range): BP systolic 98–116; BP diastolic 54–77
[2017-03-29 12:38] LABS: Magnesium 2.7 mg/dL (1.6-2.6); Potassium 4.3 mmol/L (3.5-5.1)
[2017-03-29 12:49] LABS: B-Type Natriuretic Peptide 777.92 pg/mL (0-100)
[2017-03-29 12:50] LABS: Temperature: 24.5 C (20.0-25.0)
== END | disposition home or self-care (01) ==
LOC: CHF HDHVI 08:07
PROVIDERS: ATTEND Internal Medicine Cardiovascular Disease
DX: I10 Essential (primary) hypertension (principal); R94.4 Abnormal results of kidney function studies; I50.9 Heart failure, unspecified; E83.42 Hypomagnesemia
CPT/HCPCS: 36415; 82565; 83735; 83880; 84132; 84520; 96365; 96366; G0463; J1642

== ENCOUNTER → 2017-03-31 | Outpatient (CLI) | payer OTHER ==
[2017-03-31] VITALS (9 sets, daily range): BP systolic 95–125; BP diastolic 57–78
== END | disposition home or self-care (01) ==
LOC: CHF HDHVI 08:06
PROVIDERS: ATTEND Internal Medicine Cardiovascular Disease
DX: I50.9 Heart failure, unspecified (principal)
CPT/HCPCS: 96365; 96366; G0463; J1250; J1642

== ENCOUNTER → 2017-04-03 | Outpatient (CLI) | payer OTHER ==
[2017-04-03] VITALS (9 sets, daily range): BP systolic 95–118; BP diastolic 55–74
[~2017-04-03] MED LIST changes: +CYANOCOBALAMIN (B-12) 1000 MCG/1 ML VIAL IM ONE; +CYANOCOBALAMIN (B-12) 1000 MCG/1 ML VIAL ONE
== END | disposition home or self-care (01) ==
LOC: CHF HDHVI 07:51
PROVIDERS: ATTEND Internal Medicine Cardiovascular Disease
DX: I11.0 Hypertensive heart disease with heart failure (principal); I50.9 Heart failure, unspecified; I25.10 Atherosclerotic heart disease of native coronary artery without angina pectoris; D64.9 Anemia, unspecified; E78.5 Hyperlipidemia, unspecified; I42.9 Cardiomyopathy, unspecified
CPT/HCPCS: 96365; 96366; 96372; G0463; J1250; J1642; J3420

== ENCOUNTER → 2017-04-05 | Outpatient (CLI) | payer OTHER ==
[2017-04-05] VITALS (10 sets, daily range): BP systolic 90–109; BP diastolic 52–67
[~2017-04-05] MED LIST changes: -CYANOCOBALAMIN (B-12) 1000 MCG/1 ML VIAL IM ONE; -CYANOCOBALAMIN (B-12) 1000 MCG/1 ML VIAL ONE
[2017-04-05 12:36] LABS: Potassium 3.8 mmol/L (3.5-5.1)
[2017-04-05 12:45] LABS: B-Type Natriuretic Peptide 841.73 pg/mL (0-100); Temperature: 22.7 C (20.0-25.0)
== END | disposition home or self-care (01) ==
LOC: CHF HDHVI 07:34
PROVIDERS: ATTEND Internal Medicine Cardiovascular Disease
DX: R94.4 Abnormal results of kidney function studies (principal); I50.9 Heart failure, unspecified
CPT/HCPCS: 36415; 82565; 83880; 84132; 84520; 96365; 96366; G0463; J1642

== ENCOUNTER → 2017-04-07 | Outpatient (CLI) | payer OTHER ==
[2017-04-07] VITALS (8 sets, daily range): BP systolic 102–120; BP diastolic 55–76
== END | disposition home or self-care (01) ==
LOC: CHF HDHVI 07:36
PROVIDERS: ATTEND Internal Medicine Cardiovascular Disease
DX: I50.9 Heart failure, unspecified (principal); D64.9 Anemia, unspecified
CPT/HCPCS: 96365; 96366; G0463; J1250; J1642

== ENCOUNTER → 2017-04-10 | Outpatient (CLI) | payer OTHER ==
[2017-04-10] VITALS (8 sets, daily range): BP systolic 100–122; BP diastolic 52–83
[~2017-04-10] MED LIST changes: +CYANOCOBALAMIN (B-12) 1000 MCG/1 ML VIAL IM ONE; +CYANOCOBALAMIN (B-12) 1000 MCG/1 ML VIAL ONE; +HYDR-4663 PO; -NOR5T PO
== END | disposition home or self-care (01) ==
LOC: CHF HDHVI 07:37
PROVIDERS: ATTEND Internal Medicine Cardiovascular Disease
DX: I50.9 Heart failure, unspecified (principal); D64.9 Anemia, unspecified; E87.70 Fluid overload, unspecified; R53.83 Other fatigue
CPT/HCPCS: 96365; 96366; 96372; G0463; J1250; J1642; J3420

== ENCOUNTER → 2017-04-12 | Outpatient (CLI) | payer OTHER ==
[2017-04-12] VITALS (9 sets, daily range): BP systolic 105–125; BP diastolic 54–81
[~2017-04-12] MED LIST changes: -CYANOCOBALAMIN (B-12) 1000 MCG/1 ML VIAL IM ONE; -CYANOCOBALAMIN (B-12) 1000 MCG/1 ML VIAL ONE; -HYDR-4663 PO; +NOR5T PO
[2017-04-12 12:58] LABS: Potassium 4.4 mmol/L (3.5-5.1)
[2017-04-12 13:02] LABS: B-Type Natriuretic Peptide 989.13 pg/mL (0-100); Temperature: 23.7 C (20.0-25.0)
== END | disposition home or self-care (01) ==
LOC: CHF HDHVI 07:37
PROVIDERS: ATTEND Internal Medicine Cardiovascular Disease
DX: R94.4 Abnormal results of kidney function studies (principal); I10 Essential (primary) hypertension; I50.9 Heart failure, unspecified
CPT/HCPCS: 36415; 82565; 83880; 84132; 84520; 96365; 96366; G0463; J1642

== ENCOUNTER → 2017-04-14 | Outpatient (CLI) | payer OTHER ==
[~2017-04-14] VITALS: Ht 30.5 cm; Wt 89.4 kg
[2017-04-14 07:45] VITALS: BP 115/80
[2017-04-14 08:00] VITALS: BP 105/68
[2017-04-14 08:15] VITALS: BP 99/66
[2017-04-14 08:30] VITALS: BP 99/58
[2017-04-14 09:00] VITALS: BP 103/60
[2017-04-14 10:50] VITALS: BP 109/63
== END | disposition home or self-care (01) ==
LOC: CHF HDHVI 07:39
PROVIDERS: ATTEND Internal Medicine Cardiovascular Disease
DX: I50.9 Heart failure, unspecified (principal); I25.10 Atherosclerotic heart disease of native coronary artery without angina pectoris
CPT/HCPCS: 96365; 96366; G0463; J1250; J1642

== ENCOUNTER → 2017-04-17 | Outpatient (CLI) | payer OTHER ==
[2017-04-17] VITALS (8 sets, daily range): BP systolic 98–129; BP diastolic 54–82
[~2017-04-17] VITALS: Ht 30.5 cm; Wt 89.4 kg
[~2017-04-17] MED LIST changes: +CYANOCOBALAMIN (B-12) 1000 MCG/1 ML VIAL IM ONE; +CYANOCOBALAMIN (B-12) 1000 MCG/1 ML VIAL ONE; +HYDR-4663 PO; -NOR5T PO
[2017-04-17] MEDS: DOBUTamine 1000MCG/ML 250 ML IV SCH ×2 (11:50→14:29)
== END | disposition home or self-care (01) ==
LOC: CHF HDHVI 07:41
PROVIDERS: ATTEND Internal Medicine Cardiovascular Disease
DX: I50.9 Heart failure, unspecified (principal); I48.91 Unspecified atrial fibrillation; I42.9 Cardiomyopathy, unspecified; N28.9 Disorder of kidney and ureter, unspecified
CPT/HCPCS: 96365; 96366; 96372; G0463; J1250; J1642; J3420

== ENCOUNTER → 2017-04-19 | Outpatient (CLI) | payer OTHER ==
[~2017-04-19] VITALS: Ht 30.5 cm; Wt 89.4 kg
[2017-04-19] VITALS (9 sets, daily range): BP systolic 102–118; BP diastolic 61–74
[~2017-04-19] MED LIST changes: -CYANOCOBALAMIN (B-12) 1000 MCG/1 ML VIAL IM ONE; -CYANOCOBALAMIN (B-12) 1000 MCG/1 ML VIAL ONE; -HYDR-4663 PO; +NOR5T PO
[2017-04-19 12:39] LABS: Basophils # (auto) 0 uL; Basophils % (auto) 0.5 % (0.0-2.0); Eosinophils # (auto) 0.3 uL; Eosinophils % (auto) 7.8 % (0.0-7.0); Hemoglobin 14.4 g/dL (13.5-17.5); Lymphocytes # (auto) 1.2 uL; Lymphocytes % (auto) 28.7 % (10.0-50.0); Mean Corpuscular Hemoglobin 33.3 pg (28.0-32.0); Mean Corpuscular Hgb Conc. 34.2 g/dL (32.0-36.0); Mean Corpuscular Volume 97.2 fL (80.0-100.0); Mean Platelet Volume 9.2 fL (7.4-10.4); Monocytes # (auto) 0.6 uL; Monocytes % (auto) 14.2 % (0.0-12.0); Neutrophils # (auto) 2.1 uL; Neutrophils % (auto) 48.8 % (37.0-80.0); Platelet Count (auto) 165 10^3/uL (140-450); Red Cell Distribution Width 14.2 % (11.6-16.0); White Blood Cell 4.3 10^3/uL (4.4-10.8)
[2017-04-19 12:54] LABS: Albumin 3.6 g/dL (3.4-5.0); Calcium 8.2 mg/dL (8.5-10.1); Potassium 3.9 mmol/L (3.5-5.1)
[2017-04-19 13:03] LABS: BUN/Creatinine Ratio 16.8; Bilirubin, Total 0.9 mg/dL (0.2-1.0); Total Protein 7.1 g/dL (6.4-8.2)
[2017-04-19 13:05] LABS: B-Type Natriuretic Peptide 770.73 pg/mL (0-100); Temperature: 23.5 C (20.0-25.0)
== END | disposition home or self-care (01) ==
LOC: CHF HDHVI 07:37
PROVIDERS: ATTEND Internal Medicine Cardiovascular Disease
DX: I10 Essential (primary) hypertension (principal); D64.9 Anemia, unspecified; I50.9 Heart failure, unspecified
CPT/HCPCS: 36415; 80053; 83880; 85025; 96365; 96366; G0463; J1642

== ENCOUNTER → 2017-04-21 | Outpatient (CLI) | payer OTHER ==
[~2017-04-21] VITALS: Ht 30.5 cm; Wt 89.6 kg
[2017-04-21] VITALS (10 sets, daily range): BP systolic 91–105; BP diastolic 52–63
== END | disposition home or self-care (01) ==
LOC: CHF HDHVI 07:33
PROVIDERS: ATTEND Internal Medicine Cardiovascular Disease
DX: I50.9 Heart failure, unspecified (principal); D64.9 Anemia, unspecified
CPT/HCPCS: 96365; 96366; G0463; J1250; J1642

== ENCOUNTER 2017-04-25 17:27 | Observation (INO) | payer OTHER ==
[~2017-04-25] VITALS: Ht 180.3 cm; Wt 87.5 kg
[~2017-04-25 17:27] MED LIST changes: -CYANOCOBALAMIN (B-12) 1000 MCG/1 ML VIAL IM ONE; -CYANOCOBALAMIN (B-12) 1000 MCG/1 ML VIAL ONE; -DOBUTamine 1000MCG/ML 250 ML IV ONE; +HYDR-4663 PO; -NOR5T PO
[2017-04-25 18:38] LABS: Basophils # (auto) 0 uL; Basophils % (auto) 0.6 % (0.0-2.0); Eosinophils # (auto) 0.3 uL; Hematocrit 44.3 % (41.0-53.0); Hemoglobin 15.2 g/dL (13.5-17.5); Lymphocytes # (auto) 1.4 uL; Lymphocytes % (auto) 31.5 % (10.0-50.0); Mean Corpuscular Hemoglobin 33.8 pg (28.0-32.0); Mean Corpuscular Hgb Conc. 34.3 g/dL (32.0-36.0); Mean Corpuscular Volume 98.5 fL (80.0-100.0); Mean Platelet Volume 8.5 fL (7.4-10.4); Monocytes # (auto) 0.6 uL; Monocytes % (auto) 13.6 % (0.0-12.0); Neutrophils # (auto) 2.1 uL; Neutrophils % (auto) 48.3 % (37.0-80.0); Platelet Count (auto) 183 10^3/uL (140-450); Red Cell Distribution Width 14.4 % (11.6-16.0); White Blood Cell 4.4 10^3/uL (4.4-10.8)
[2017-04-25 19:02] LABS: Anion Gap 9 (5-15); Aspartate Aminotransferase 24 U/L (15-37); BUN/Creatinine Ratio 12.8; Blood Urea Nitrogen 16 mg/dL (7-18); Calcium 8.9 mg/dL (8.5-10.1); Carbon Dioxide 27 mmol/L (21-32); Chloride 105 mmol/L (98-107); GFR African American 71 mL/min; GFR Non-African American 59 mL/min; Glucose 129 mg/dL (74-106); Magnesium 2.4 mg/dL (1.6-2.6); Potassium 4.3 mmol/L (3.5-5.1); Sodium 141 mmol/L (136-145)
[2017-04-25 19:07] LABS: Alkaline Phosphatase 69 U/L (45-117); Bilirubin, Total 0.6 mg/dL (0.2-1.0); Total Protein 7.7 g/dL (6.4-8.2)
[2017-04-25 20:21] LABS: INR 1.05 (0.9-1.15); Partial Thromboplastin Time 26.6 sec (22.64-33.71); Prothrombin Time 11.5 sec (9.37-12.3)
[2017-04-25 20:28] LABS: B-Type Natriuretic Peptide 480.3 pg/mL (0-100); Temperature: 22.7 C (20.0-25.0)
[2017-04-25 21:14] VITALS: BP 121/79
[2017-04-25] MEDS ORDERED: FUROSEMIDE 20 MG/2 ML VIAL IV ONE (22:30)
== END 2017-04-25 23:08 | disposition left against medical advice (07) | DRG 204 ==
LOC: ER 17:29 → OVERFLOW 19:46 → ER 23:08
PROVIDERS: ADMIT Emergency Medicine; ATTEND Emergency Medicine
DX: R06.02 Shortness of breath (principal); R00.2 Palpitations; I10 Essential (primary) hypertension; I50.9 Heart failure, unspecified; I11.0 Hypertensive heart disease with heart failure; I48.91 Unspecified atrial fibrillation; I25.10 Atherosclerotic heart disease of native coronary artery without angina pectoris; Z86.73 Personal history of transient ischemic attack (TIA), and cerebral infarction without residual deficits; M54.9 Dorsalgia, unspecified; G89.29 Other chronic pain; Z95.1 Presence of aortocoronary bypass graft; Z95.0 Presence of cardiac pacemaker; Z87.442 Personal history of urinary calculi; E78.5 Hyperlipidemia, unspecified; Z85.038 Personal history of other malignant neoplasm of large intestine; Z98.890 Other specified postprocedural states; Z95.810 Presence of automatic (implantable) cardiac defibrillator; M25.70 Osteophyte, unspecified joint
CPT/HCPCS: 36415; 71020; 80053; 83735; 83880; 84443; 84484; 85025; 85379; 85610; 85730; 93005; 99285; G0378

== ENCOUNTER → 2017-04-25 | Outpatient (CLI) | payer OTHER ==
[2017-04-25] VITALS (9 sets, daily range): BP systolic 94–116; BP diastolic 57–73
[~2017-04-25] MED LIST changes: +CYANOCOBALAMIN (B-12) 1000 MCG/1 ML VIAL IM ONE; +CYANOCOBALAMIN (B-12) 1000 MCG/1 ML VIAL ONE
[2017-04-25 12:30] LABS: Basophils # (auto) 0 uL; Basophils % (auto) 0.7 % (0.0-2.0); Eosinophils # (auto) 0.3 uL; Eosinophils % (auto) 7.1 % (0.0-7.0); Hemoglobin 14.3 g/dL (13.5-17.5); Lymphocytes # (auto) 1.3 uL; Lymphocytes % (auto) 29.4 % (10.0-50.0); Mean Corpuscular Hemoglobin 33.4 pg (28.0-32.0); Mean Corpuscular Volume 98.1 fL (80.0-100.0); Mean Platelet Volume 9.3 fL (7.4-10.4); Monocytes # (auto) 0.7 uL; Monocytes % (auto) 16.2 % (0.0-12.0); Neutrophils % (auto) 46.6 % (37.0-80.0); Platelet Count (auto) 175 10^3/uL (140-450); Red Cell Distribution Width 14.1 % (11.6-16.0); White Blood Cell 4.3 10^3/uL (4.4-10.8)
[2017-04-25 12:40] LABS: BUN/Creatinine Ratio 14.3; Calcium 8.5 mg/dL (8.5-10.1); Magnesium 2.5 mg/dL (1.6-2.6); Potassium 4.3 mmol/L (3.5-5.1)
[2017-04-25 12:59] LABS: B-Type Natriuretic Peptide 562.86 pg/mL (0-100); Temperature: 22.9 C (20.0-25.0)
== END | disposition home or self-care (01) ==
LOC: CHF HDHVI 08:05
PROVIDERS: ATTEND Internal Medicine Cardiovascular Disease
DX: I10 Essential (primary) hypertension (principal); I50.9 Heart failure, unspecified; E83.42 Hypomagnesemia; D64.9 Anemia, unspecified
CPT/HCPCS: 36415; 80048; 83735; 83880; 85025; 96365; 96367; G0463; J1642

== ENCOUNTER → 2017-04-27 | Outpatient (CLI) | payer OTHER ==
[2017-04-27] VITALS (10 sets, daily range): BP systolic 98–120; BP diastolic 53–79
[~2017-04-27] MED LIST changes: +DOBUTamine 1000MCG/ML 250 ML IV ONE
== END | disposition home or self-care (01) ==
LOC: CHF HDHVI 07:40
PROVIDERS: ATTEND Internal Medicine Cardiovascular Disease
DX: I11.0 Hypertensive heart disease with heart failure (principal); I50.9 Heart failure, unspecified; E87.70 Fluid overload, unspecified; I48.91 Unspecified atrial fibrillation; K21.9 Gastro-esophageal reflux disease without esophagitis
CPT/HCPCS: 96365; 96366; G0463; J1250; J1642

== ENCOUNTER → 2017-05-01 | Outpatient (CLI) | payer OTHER ==
[~2017-05-01] MED LIST changes: +CYANOCOBALAMIN (B-12) 1000 MCG/1 ML VIAL IM ONE; +CYANOCOBALAMIN (B-12) 1000 MCG/1 ML VIAL ONE
[2017-05-01 07:46] VITALS: BP 114/72
[2017-05-01 08:00] VITALS: BP 109/67
[2017-05-01 08:15] VITALS: BP 106/65
[2017-05-01 08:30] VITALS: BP 115/73
[2017-05-01 08:45] VITALS: BP 130/74
[2017-05-01 10:45] VITALS: BP 122/70
== END | disposition home or self-care (01) ==
LOC: CHF HDHVI 07:34
PROVIDERS: ATTEND Internal Medicine Cardiovascular Disease
DX: I50.9 Heart failure, unspecified (principal); I48.91 Unspecified atrial fibrillation; E87.70 Fluid overload, unspecified; R53.83 Other fatigue; E78.5 Hyperlipidemia, unspecified
CPT/HCPCS: 96365; 96366; 96372; G0463; J1250; J1642; J3420

== ENCOUNTER → 2017-05-03 | Outpatient (CLI) | payer OTHER ==
[2017-05-03] VITALS (10 sets, daily range): BP systolic 110–126; BP diastolic 67–80
[~2017-05-03] MED LIST changes: -CYANOCOBALAMIN (B-12) 1000 MCG/1 ML VIAL IM ONE; -CYANOCOBALAMIN (B-12) 1000 MCG/1 ML VIAL ONE
[2017-05-03 12:48] LABS: Basophils # (auto) 0 uL; Basophils % (auto) 0.7 % (0.0-2.0); Eosinophils # (auto) 0.4 uL; Eosinophils % (auto) 7.9 % (0.0-7.0); Hematocrit 43.4 % (41.0-53.0); Hemoglobin 14.5 g/dL (13.5-17.5); Lymphocytes # (auto) 1.5 uL; Lymphocytes % (auto) 31.7 % (10.0-50.0); Mean Corpuscular Hemoglobin 32.9 pg (28.0-32.0); Mean Corpuscular Hgb Conc. 33.4 g/dL (32.0-36.0); Mean Corpuscular Volume 98.6 fL (80.0-100.0); Mean Platelet Volume 9.4 fL (7.4-10.4); Monocytes # (auto) 0.7 uL; Monocytes % (auto) 14.1 % (0.0-12.0); Neutrophils # (auto) 2.1 uL; Neutrophils % (auto) 45.6 % (37.0-80.0); Platelet Count (auto) 177 10^3/uL (140-450); Red Cell Distribution Width 14.4 % (11.6-16.0); White Blood Cell 4.7 10^3/uL (4.4-10.8)
[2017-05-03 13:30] LABS: B-Type Natriuretic Peptide 745.15 pg/mL (0-100); Potassium 4.4 mmol/L (3.5-5.1); Temperature: 22.3 C (20.0-25.0)
== END | disposition home or self-care (01) ==
LOC: CHF HDHVI 07:29
PROVIDERS: ATTEND Internal Medicine Cardiovascular Disease
DX: R94.4 Abnormal results of kidney function studies (principal); E87.6 Hypokalemia; D64.9 Anemia, unspecified; I50.9 Heart failure, unspecified
CPT/HCPCS: 36415; 82565; 83880; 84132; 84520; 85025; 96365; 96366; G0463; J1642

== ENCOUNTER → 2017-05-05 | Outpatient (CLI) | payer OTHER ==
[2017-05-05] VITALS (10 sets, daily range): BP systolic 101–130; BP diastolic 60–77
[~2017-05-05] VITALS: Ht 30.5 cm; Wt 90.7 kg
== END | disposition home or self-care (01) ==
LOC: CHF HDHVI 07:39
PROVIDERS: ATTEND Internal Medicine Cardiovascular Disease
DX: I11.0 Hypertensive heart disease with heart failure (principal); I50.9 Heart failure, unspecified; I25.10 Atherosclerotic heart disease of native coronary artery without angina pectoris; I48.91 Unspecified atrial fibrillation; R53.83 Other fatigue
CPT/HCPCS: 96365; 96366; G0463; J1250; J1642

== ENCOUNTER → 2017-05-08 | Outpatient (CLI) | payer OTHER ==
[2017-05-08] VITALS (7 sets, daily range): BP systolic 106–121; BP diastolic 61–74
[~2017-05-08] MED LIST changes: +CYANOCOBALAMIN (B-12) 1000 MCG/1 ML VIAL IM ONE; +CYANOCOBALAMIN (B-12) 1000 MCG/1 ML VIAL ONE
== END | disposition home or self-care (01) ==
LOC: CHF HDHVI 07:28
PROVIDERS: ATTEND Internal Medicine Cardiovascular Disease
DX: I50.9 Heart failure, unspecified (principal); I25.10 Atherosclerotic heart disease of native coronary artery without angina pectoris; I48.91 Unspecified atrial fibrillation; R53.83 Other fatigue
CPT/HCPCS: 96365; 96366; 96372; G0463; J1250; J1642; J3420

== ENCOUNTER → 2017-05-10 | Outpatient (CLI) | payer OTHER ==
[2017-05-10] VITALS (8 sets, daily range): BP systolic 98–121; BP diastolic 52–72
[~2017-05-10] MED LIST changes: -CYANOCOBALAMIN (B-12) 1000 MCG/1 ML VIAL IM ONE; -CYANOCOBALAMIN (B-12) 1000 MCG/1 ML VIAL ONE
[2017-05-10 12:26] LABS: Basophils # (auto) 0 uL; Basophils % (auto) 0.5 % (0.0-2.0); Eosinophils # (auto) 0.3 uL; Eosinophils % (auto) 6.5 % (0.0-7.0); Hematocrit 43.1 % (41.0-53.0); Hemoglobin 14.3 g/dL (13.5-17.5); Lymphocytes # (auto) 1.1 uL; Lymphocytes % (auto) 24.4 % (10.0-50.0); Mean Corpuscular Hgb Conc. 33.2 g/dL (32.0-36.0); Mean Corpuscular Volume 99.6 fL (80.0-100.0); Mean Platelet Volume 9.5 fL (7.4-10.4); Monocytes # (auto) 0.7 uL; Neutrophils # (auto) 2.5 uL; Neutrophils % (auto) 53.6 % (37.0-80.0); Platelet Count (auto) 167 10^3/uL (140-450); Red Cell Distribution Width 13.9 % (11.6-16.0); White Blood Cell 4.7 10^3/uL (4.4-10.8)
[2017-05-10 12:44] LABS: Potassium 3.9 mmol/L (3.5-5.1)
[2017-05-10 12:53] LABS: Temperature: 23.5 C (20.0-25.0)
== END | disposition home or self-care (01) ==
LOC: CHF HDHVI 07:25
PROVIDERS: ATTEND Internal Medicine Cardiovascular Disease
DX: R94.4 Abnormal results of kidney function studies (principal); E87.6 Hypokalemia; I50.9 Heart failure, unspecified; D64.9 Anemia, unspecified
CPT/HCPCS: 36415; 82565; 83880; 84132; 84520; 85025; 96365; 96366; G0463; J1642

== ENCOUNTER → 2017-05-12 | Outpatient (CLI) | payer OTHER ==
[2017-05-12 07:45] VITALS: BP 102/50
[2017-05-12 08:00] VITALS: BP 101/56
[2017-05-12 08:15] VITALS: BP 100/56
[2017-05-12 08:30] VITALS: BP 104/54
[2017-05-12 08:45] VITALS: BP 105/56
[2017-05-12 10:50] VITALS: BP 135/77
== END | disposition home or self-care (01) ==
LOC: CHF HDHVI 07:27
PROVIDERS: ATTEND Internal Medicine Cardiovascular Disease
DX: I50.9 Heart failure, unspecified (principal); I48.91 Unspecified atrial fibrillation; R53.83 Other fatigue
CPT/HCPCS: 96365; 96366; G0463; J1250; J1642

== ENCOUNTER → 2017-05-15 | Outpatient (CLI) | payer OTHER ==
[2017-05-15] VITALS (9 sets, daily range): BP systolic 112–131; BP diastolic 63–81
[~2017-05-15] MED LIST changes: +CYANOCOBALAMIN (B-12) 1000 MCG/1 ML VIAL IM ONE; +CYANOCOBALAMIN (B-12) 1000 MCG/1 ML VIAL ONE
== END | disposition home or self-care (01) ==
LOC: CHF HDHVI 07:40
PROVIDERS: ATTEND Internal Medicine Cardiovascular Disease
DX: I50.9 Heart failure, unspecified (principal); I48.91 Unspecified atrial fibrillation; R53.83 Other fatigue; Z95.810 Presence of automatic (implantable) cardiac defibrillator
CPT/HCPCS: 96365; 96366; 96372; G0463; J1250; J1642; J3420

== ENCOUNTER → 2017-05-17 | Outpatient (CLI) | payer OTHER ==
[2017-05-17] VITALS (9 sets, daily range): BP systolic 109–131; BP diastolic 62–84
[~2017-05-17] MED LIST changes: -CYANOCOBALAMIN (B-12) 1000 MCG/1 ML VIAL IM ONE; -CYANOCOBALAMIN (B-12) 1000 MCG/1 ML VIAL ONE
[2017-05-17 12:46] LABS: B-Type Natriuretic Peptide 1142.25 pg/mL (0-100)
[2017-05-17 12:53] LABS: BUN/Creatinine Ratio 15.6; Calcium 8.4 mg/dL (8.5-10.1); Potassium 3.9 mmol/L (3.5-5.1)
[2017-05-17 12:57] LABS: Basophils # (auto) 0 uL; Basophils % (auto) 0.4 % (0.0-2.0); CONDITION Y; Eosinophils # (auto) 0.3 uL; Eosinophils % (auto) 6.5 % (0.0-7.0); Hematocrit 42.2 % (41.0-53.0); Hemoglobin 14.3 g/dL (13.5-17.5); Lymphocytes # (auto) 1.2 uL; Lymphocytes % (auto) 28.3 % (10.0-50.0); Mean Corpuscular Hemoglobin 33.3 pg (28.0-32.0); Mean Corpuscular Hgb Conc. 33.9 g/dL (32.0-36.0); Mean Corpuscular Volume 98.3 fL (80.0-100.0); Mean Platelet Volume 9.7 fL (7.4-10.4); Monocytes # (auto) 0.5 uL; Monocytes % (auto) 11.6 % (0.0-12.0); Neutrophils # (auto) 2.3 uL; Neutrophils % (auto) 53.2 % (37.0-80.0); Platelet Count (auto) 162 10^3/uL (140-450); Red Cell Distribution Width 14.2 % (11.6-16.0); White Blood Cell 4.3 10^3/uL (4.4-10.8)
[2017-05-17 13:14] LABS: Temperature: 22.9 C (20.0-25.0)
== END | disposition home or self-care (01) ==
LOC: CHF HDHVI 07:33
PROVIDERS: ATTEND Internal Medicine Cardiovascular Disease
DX: I11.0 Hypertensive heart disease with heart failure (principal); I50.9 Heart failure, unspecified; D64.9 Anemia, unspecified
CPT/HCPCS: 36415; 80048; 83880; 85025; 96365; 96366; G0463; J1250; J1642

== ENCOUNTER → 2017-05-19 | Outpatient (CLI) | payer OTHER ==
[2017-05-19] VITALS (9 sets, daily range): BP systolic 102–130; BP diastolic 61–84
[~2017-05-19] VITALS: Ht 30.5 cm; Wt 89.4 kg
== END | disposition home or self-care (01) ==
LOC: CHF HDHVI 07:37
PROVIDERS: ATTEND Internal Medicine Cardiovascular Disease
DX: I50.9 Heart failure, unspecified (principal); I48.91 Unspecified atrial fibrillation; E87.70 Fluid overload, unspecified; R53.83 Other fatigue; Z95.810 Presence of automatic (implantable) cardiac defibrillator
CPT/HCPCS: 96365; 96366; G0463; J1250; J1642

== ENCOUNTER → 2017-05-22 | Outpatient (CLI) | payer OTHER ==
[2017-05-22] VITALS (10 sets, daily range): BP systolic 102–126; BP diastolic 57–79
[~2017-05-22] MED LIST changes: +CYANOCOBALAMIN (B-12) 1000 MCG/1 ML VIAL IM ONE; +CYANOCOBALAMIN (B-12) 1000 MCG/1 ML VIAL ONE
== END | disposition home or self-care (01) ==
LOC: CHF HDHVI 07:39
PROVIDERS: ATTEND Internal Medicine Cardiovascular Disease
DX: I50.9 Heart failure, unspecified (principal); I48.91 Unspecified atrial fibrillation; R53.83 Other fatigue; Z95.810 Presence of automatic (implantable) cardiac defibrillator
CPT/HCPCS: 96365; 96366; 96372; G0463; J1250; J1642; J3420

== ENCOUNTER → 2017-05-24 | Outpatient (CLI) | payer OTHER ==
[2017-05-24] VITALS (9 sets, daily range): BP systolic 96–129; BP diastolic 57–70
[~2017-05-24] MED LIST changes: -CYANOCOBALAMIN (B-12) 1000 MCG/1 ML VIAL IM ONE; -CYANOCOBALAMIN (B-12) 1000 MCG/1 ML VIAL ONE
[2017-05-24 12:11] LABS: Potassium 4.1 mmol/L (3.5-5.1)
[2017-05-24 12:18] LABS: B-Type Natriuretic Peptide 566.11 pg/mL (0-100)
[2017-05-24 12:35] LABS: Temperature: 23.7 C (20.0-25.0)
== END | disposition home or self-care (01) ==
LOC: CHF HDHVI 07:38
PROVIDERS: ATTEND Internal Medicine Cardiovascular Disease
DX: I50.9 Heart failure, unspecified (principal); I48.91 Unspecified atrial fibrillation; E11.9 Type 2 diabetes mellitus without complications; E87.6 Hypokalemia; R53.83 Other fatigue; R94.4 Abnormal results of kidney function studies
CPT/HCPCS: 36415; 82565; 83036; 83880; 84132; 84520; J1250; J1642

== ENCOUNTER → 2017-05-26 | Outpatient (CLI) | payer OTHER ==
[2017-05-24 10:55] VITALS: BP 126/79
[2017-05-26] VITALS (9 sets, daily range): BP systolic 94–140; BP diastolic 54–81
[~2017-05-26] VITALS: Ht 30.5 cm; Wt 90.7 kg
== END | disposition home or self-care (01) ==
LOC: CHF HDHVI 07:36
PROVIDERS: ATTEND Internal Medicine Cardiovascular Disease
DX: I50.9 Heart failure, unspecified (principal); I48.91 Unspecified atrial fibrillation; R53.83 Other fatigue
CPT/HCPCS: 96365; 96366; G0463; J1250; J1642

== ENCOUNTER → 2017-05-29 | Outpatient (CLI) | payer OTHER ==
[2017-05-29] VITALS (9 sets, daily range): BP systolic 108–120; BP diastolic 67–83
[~2017-05-29] MED LIST changes: +CYANOCOBALAMIN (B-12) 1000 MCG/1 ML VIAL ONE; +KETOROLAC TROMETH 60MG/2ML VIAL IM ONE
[2017-06-02 10:55] VITALS: BP 120/69
== END | disposition home or self-care (01) ==
LOC: CHF HDHVI 07:34
PROVIDERS: ATTEND Internal Medicine Cardiovascular Disease
DX: I50.9 Heart failure, unspecified (principal)
CPT/HCPCS: 96365; 96366; 96372; G0463; J1250; J1642; J1885; J3420

== ENCOUNTER → 2017-05-31 | Outpatient (CLI) | payer OTHER ==
[2017-05-31] VITALS (7 sets, daily range): BP systolic 102–128; BP diastolic 56–79
[~2017-05-31] MED LIST changes: -CYANOCOBALAMIN (B-12) 1000 MCG/1 ML VIAL ONE; -KETOROLAC TROMETH 60MG/2ML VIAL IM ONE
[2017-05-31 12:50] LABS: Magnesium 2.6 mg/dL (1.6-2.6); Potassium 4.6 mmol/L (3.5-5.1)
[2017-05-31 12:51] LABS: B-Type Natriuretic Peptide 959.03 pg/mL (0-100)
[2017-05-31 13:05] LABS: Temperature: 22.9 C (20.0-25.0)
== END | disposition home or self-care (01) ==
LOC: CHF HDHVI 07:36
PROVIDERS: ATTEND Internal Medicine Cardiovascular Disease
DX: E87.6 Hypokalemia (principal); R94.4 Abnormal results of kidney function studies; I50.9 Heart failure, unspecified; E83.42 Hypomagnesemia
CPT/HCPCS: 36415; 82565; 83735; 83880; 84132; 84520; 96365; 96366; G0463; J1250; J1642

== ENCOUNTER → 2017-06-02 | Outpatient (CLI) | payer OTHER ==
[2017-06-02] VITALS (10 sets, daily range): BP systolic 102–125; BP diastolic 58–78
== END | disposition home or self-care (01) ==
LOC: CHF HDHVI 07:41
PROVIDERS: ATTEND Internal Medicine Cardiovascular Disease
DX: I50.9 Heart failure, unspecified (principal); I48.91 Unspecified atrial fibrillation; R53.83 Other fatigue; Z95.0 Presence of cardiac pacemaker; Z95.810 Presence of automatic (implantable) cardiac defibrillator
CPT/HCPCS: 96365; 96366; G0463; J1250; J1642

== ENCOUNTER → 2017-06-05 | Outpatient (CLI) | payer OTHER ==
[2017-06-05] VITALS (9 sets, daily range): BP systolic 98–126; BP diastolic 53–72
[~2017-06-05] MED LIST changes: +CYANOCOBALAMIN (B-12) 1000 MCG/1 ML VIAL IM ONE; +CYANOCOBALAMIN (B-12) 1000 MCG/1 ML VIAL ONE
== END ==
LOC: CHF HDHVI 07:31
PROVIDERS: ATTEND Internal Medicine Cardiovascular Disease
DX: I48.91 Unspecified atrial fibrillation (principal); I49.5 Sick sinus syndrome; I25.10 Atherosclerotic heart disease of native coronary artery without angina pectoris; Z95.810 Presence of automatic (implantable) cardiac defibrillator; Z95.1 Presence of aortocoronary bypass graft; R53.83 Other fatigue
CPT/HCPCS: 96365; 96366; 96372; G0463; J1250; J1642; J3420

== ENCOUNTER → 2017-06-07 | Outpatient (CLI) | payer OTHER ==
[2017-06-07] VITALS (9 sets, daily range): BP systolic 97–123; BP diastolic 51–75
[~2017-06-07] MED LIST changes: -CYANOCOBALAMIN (B-12) 1000 MCG/1 ML VIAL IM ONE; -CYANOCOBALAMIN (B-12) 1000 MCG/1 ML VIAL ONE
[2017-06-07 12:32] LABS: Basophils # (auto) 0 uL; Basophils % (auto) 0.5 % (0.0-2.0); CONDITION Y; Eosinophils # (auto) 0.3 uL; Eosinophils % (auto) 8.2 % (0.0-7.0); Hematocrit 41.7 % (41.0-53.0); Hemoglobin 14.1 g/dL (13.5-17.5); Lymphocytes # (auto) 1.1 uL; Lymphocytes % (auto) 29.9 % (10.0-50.0); Mean Corpuscular Hemoglobin 33.2 pg (28.0-32.0); Mean Corpuscular Hgb Conc. 33.8 g/dL (32.0-36.0); Mean Corpuscular Volume 98.3 fL (80.0-100.0); Mean Platelet Volume 9.6 fL (7.4-10.4); Monocytes # (auto) 0.5 uL; Neutrophils # (auto) 1.8 uL; Neutrophils % (auto) 48.4 % (37.0-80.0); Platelet Count (auto) 173 10^3/uL (140-450); Red Cell Distribution Width 13.8 % (11.6-16.0); White Blood Cell 3.8 10^3/uL (4.4-10.8)
[2017-06-07 13:04] LABS: BUN/Creatinine Ratio 15.7; Calcium 8.4 mg/dL (8.5-10.1); Magnesium 2.6 mg/dL (1.6-2.6); Potassium 3.8 mmol/L (3.5-5.1)
[2017-06-07 13:09] LABS: B-Type Natriuretic Peptide 432.74 pg/mL (0-100)
[2017-06-07 13:14] LABS: Temperature: 24.8 C (20.0-25.0)
== END | disposition home or self-care (01) ==
LOC: CHF HDHVI 07:34
PROVIDERS: ATTEND Internal Medicine Cardiovascular Disease
DX: I11.0 Hypertensive heart disease with heart failure (principal); I50.9 Heart failure, unspecified; E83.40 Disorders of magnesium metabolism, unspecified; D64.9 Anemia, unspecified
CPT/HCPCS: 36415; 80048; 83735; 83880; 85025; 96365; 96366; G0463; J1250; J1642

== ENCOUNTER → 2017-06-09 | Outpatient (CLI) | payer OTHER ==
[2017-06-09] VITALS (8 sets, daily range): BP systolic 104–123; BP diastolic 63–82
== END | disposition home or self-care (01) ==
LOC: CHF HDHVI 07:39
PROVIDERS: ATTEND Internal Medicine Cardiovascular Disease
DX: I50.9 Heart failure, unspecified (principal); I25.10 Atherosclerotic heart disease of native coronary artery without angina pectoris
CPT/HCPCS: 96365; 96366; G0463; J1250; J1642; 96375

== ENCOUNTER → 2017-06-12 | Outpatient (CLI) | payer OTHER ==
[2017-06-12] VITALS (9 sets, daily range): BP systolic 96–120; BP diastolic 57–71
== END | disposition home or self-care (01) ==
LOC: CHF HDHVI 07:34
PROVIDERS: ATTEND Internal Medicine Cardiovascular Disease
DX: I25.10 Atherosclerotic heart disease of native coronary artery without angina pectoris (principal); I50.9 Heart failure, unspecified
CPT/HCPCS: 96365; 96366; G0463; J1250; J1642

== ENCOUNTER → 2017-06-14 | Outpatient (CLI) | payer OTHER ==
[2017-06-14] VITALS (9 sets, daily range): BP systolic 91–117; BP diastolic 48–65
[2017-06-14 13:15] LABS: B-Type Natriuretic Peptide 736.91 pg/mL (0-100)
[2017-06-14 13:23] LABS: Temperature: 23.4 C (20.0-25.0)
== END | disposition home or self-care (01) ==
LOC: CHF HDHVI 07:45
PROVIDERS: ATTEND Internal Medicine Cardiovascular Disease
DX: E87.6 Hypokalemia (principal); I50.9 Heart failure, unspecified; R94.4 Abnormal results of kidney function studies
CPT/HCPCS: 36415; 82565; 83880; 84132; 84520; 96365; 96366; G0463; J1250; J1642

== ENCOUNTER → 2017-06-16 | Outpatient (CLI) | payer OTHER ==
[2017-06-16 07:54] VITALS: BP 112/75
[2017-06-16 08:15] VITALS: BP 115/67
[2017-06-16 08:30] VITALS: BP 119/74
[2017-06-16 08:45] VITALS: BP 109/67
[2017-06-16 09:00] VITALS: BP 118/72
[2017-06-22 13:35] VITALS: BP 118/59
== END | disposition home or self-care (01) ==
LOC: CHF HDHVI 07:36
PROVIDERS: ATTEND Internal Medicine Cardiovascular Disease
DX: I50.9 Heart failure, unspecified (principal); E87.70 Fluid overload, unspecified; R53.83 Other fatigue; I48.91 Unspecified atrial fibrillation; Z95.810 Presence of automatic (implantable) cardiac defibrillator
CPT/HCPCS: 96365; 96366; G0463; J1250; J1642

== ENCOUNTER → 2017-06-19 | Outpatient (CLI) | payer OTHER ==
[2017-06-19] VITALS (9 sets, daily range): BP systolic 101–121; BP diastolic 56–72
== END | disposition home or self-care (01) ==
LOC: CHF HDHVI 07:32
PROVIDERS: ATTEND Internal Medicine Cardiovascular Disease
DX: I50.9 Heart failure, unspecified (principal); I25.10 Atherosclerotic heart disease of native coronary artery without angina pectoris; Z95.1 Presence of aortocoronary bypass graft; Z95.810 Presence of automatic (implantable) cardiac defibrillator
CPT/HCPCS: 96365; 96366; G0463; J1250; J1642

== ENCOUNTER → 2017-06-21 | Outpatient (CLI) | payer OTHER ==
[2017-06-21] VITALS (9 sets, daily range): BP systolic 96–123; BP diastolic 50–75
[~2017-06-21] VITALS: Ht 30.5 cm; Wt 88.9 kg
[2017-06-21 12:02] LABS: Basophils # (auto) 0 uL; Basophils % (auto) 0.4 % (0.0-2.0); CONDITION Y; Eosinophils # (auto) 0.4 uL; Hemoglobin 14.6 g/dL (13.5-17.5); Lymphocytes # (auto) 1.2 uL; Lymphocytes % (auto) 29.4 % (10.0-50.0); Mean Corpuscular Hemoglobin 33.5 pg (28.0-32.0); Mean Corpuscular Volume 98.6 fL (80.0-100.0); Mean Platelet Volume 9.5 fL (7.4-10.4); Monocytes # (auto) 0.5 uL; Monocytes % (auto) 12.8 % (0.0-12.0); Neutrophils % (auto) 48.4 % (37.0-80.0); Platelet Count (auto) 176 10^3/uL (140-450); Red Cell Distribution Width 13.7 % (11.6-16.0); White Blood Cell 4.1 10^3/uL (4.4-10.8)
[2017-06-21 12:35] LABS: B-Type Natriuretic Peptide 623.28 pg/mL (0-100)
[2017-06-21 12:43] LABS: Temperature: 24.7 C (20.0-25.0)
[2017-06-21 18:08] LABS: BUN/Creatinine Ratio 20.7; Bilirubin, Direct 0.2 mg/dL (0-0.2); Bilirubin, Total 0.9 mg/dL (0.2-1.0); Calcium 8.7 mg/dL (8.5-10.1); Magnesium 2.6 mg/dL (1.6-2.6); Potassium 4.2 mmol/L (3.5-5.1); Total Protein 7.4 g/dL (6.4-8.2)
== END | disposition home or self-care (01) ==
LOC: CHF HDHVI 07:27
PROVIDERS: ATTEND Internal Medicine Cardiovascular Disease
DX: K74.1 Hepatic sclerosis (principal); E78.00 Pure hypercholesterolemia, unspecified; I50.9 Heart failure, unspecified; D64.9 Anemia, unspecified; E83.42 Hypomagnesemia; D51.9 Vitamin B12 deficiency anemia, unspecified
CPT/HCPCS: 36415; 80048; 80061; 80076; 82306; 82607; 83735; 83880; 85025; 96365; 96366; G0463; J1250; J1642

== ENCOUNTER → 2017-06-23 | Outpatient (CLI) | payer OTHER ==
[2017-06-23 08:00] VITALS: BP 107/67
[2017-06-23 08:15] VITALS: BP 110/70
[2017-06-23 08:30] VITALS: BP 111/56
[2017-06-23 08:45] VITALS: BP 110/67
[2017-06-23 10:50] VITALS: BP 113/63
== END | disposition home or self-care (01) ==
LOC: CHF HDHVI 07:58
PROVIDERS: ATTEND Internal Medicine Cardiovascular Disease
DX: I50.9 Heart failure, unspecified (principal); I48.91 Unspecified atrial fibrillation; Z95.810 Presence of automatic (implantable) cardiac defibrillator; Z95.0 Presence of cardiac pacemaker
CPT/HCPCS: 96365; 96366; G0463; J1250; J1642

== ENCOUNTER → 2017-06-26 | Outpatient (CLI) | payer OTHER ==
[2017-06-26] VITALS (9 sets, daily range): BP systolic 91–119; BP diastolic 51–69
[~2017-06-26] MED LIST changes: +CYANOCOBALAMIN (B-12) 1000 MCG/1 ML VIAL IM ONE; +CYANOCOBALAMIN (B-12) 1000 MCG/1 ML VIAL ONE
== END | disposition home or self-care (01) ==
LOC: CHF HDHVI 07:36
PROVIDERS: ATTEND Internal Medicine Cardiovascular Disease
DX: I50.9 Heart failure, unspecified (principal); I25.10 Atherosclerotic heart disease of native coronary artery without angina pectoris; R53.83 Other fatigue; Z95.810 Presence of automatic (implantable) cardiac defibrillator
CPT/HCPCS: 96365; 96366; 96372; G0463; J1250; J1642; J3420

== ENCOUNTER → 2017-06-28 | Outpatient (CLI) | payer OTHER ==
[2017-06-28] VITALS (10 sets, daily range): BP systolic 100–121; BP diastolic 54–73
[~2017-06-28] VITALS: Ht 30.5 cm; Wt 90.3 kg
[~2017-06-28] MED LIST changes: -CYANOCOBALAMIN (B-12) 1000 MCG/1 ML VIAL IM ONE; -CYANOCOBALAMIN (B-12) 1000 MCG/1 ML VIAL ONE
[2017-06-28 13:01] LABS: Potassium 3.9 mmol/L (3.5-5.1)
[2017-06-28 14:24] LABS: B-Type Natriuretic Peptide 757.47 pg/mL (0-100)
[2017-06-28 14:40] LABS: Temperature: 23.7 C (20.0-25.0)
== END | disposition home or self-care (01) ==
LOC: CHF HDHVI 07:31
PROVIDERS: ATTEND Internal Medicine Cardiovascular Disease
DX: E87.6 Hypokalemia (principal); R94.4 Abnormal results of kidney function studies; I50.9 Heart failure, unspecified
CPT/HCPCS: 36415; 82565; 83880; 84132; 84520; 93701; 96365; 96366; G0463; J1250; J1642

== ENCOUNTER → 2017-06-30 | Outpatient (CLI) | payer OTHER ==
[2017-06-30] VITALS (8 sets, daily range): BP systolic 103–121; BP diastolic 61–73
== END | disposition home or self-care (01) ==
LOC: CHF HDHVI 07:44
PROVIDERS: ATTEND Internal Medicine Cardiovascular Disease
DX: I50.9 Heart failure, unspecified (principal); D64.9 Anemia, unspecified
CPT/HCPCS: 96365; 96366; G0463; J1250; J1642

== ENCOUNTER → 2017-07-03 | Outpatient (CLI) | payer OTHER ==
[2017-07-03] VITALS (9 sets, daily range): BP systolic 104–129; BP diastolic 58–79
[~2017-07-03] VITALS: Ht 30.5 cm; Wt 90.7 kg
== END | disposition home or self-care (01) ==
LOC: CHF HDHVI 07:35
PROVIDERS: ATTEND Internal Medicine Cardiovascular Disease
DX: I25.10 Atherosclerotic heart disease of native coronary artery without angina pectoris (principal); I48.91 Unspecified atrial fibrillation; Z95.810 Presence of automatic (implantable) cardiac defibrillator
CPT/HCPCS: 96365; 96366; G0463; J1250; J1642

== ENCOUNTER → 2017-07-05 | Outpatient (CLI) | payer OTHER ==
[2017-07-05 07:37] VITALS: BP 109/72
[2017-07-05 07:45] VITALS: BP 109/72
[2017-07-05 08:00] VITALS: BP 116/69
[2017-07-05 08:15] VITALS: BP 111/64
[2017-07-05 11:02] VITALS: BP 117/70
[2017-07-05 12:37] LABS: BUN/Creatinine Ratio 15.7; Calcium 8.7 mg/dL (8.5-10.1); Potassium 4.4 mmol/L (3.5-5.1)
[2017-07-05 12:41] LABS: B-Type Natriuretic Peptide 851.61 pg/mL (0-100)
[2017-07-05 12:42] LABS: Temperature: 23.3 C (20.0-25.0)
== END | disposition home or self-care (01) ==
LOC: CHF HDHVI 07:25
PROVIDERS: ATTEND Internal Medicine Cardiovascular Disease
DX: I11.0 Hypertensive heart disease with heart failure (principal); I50.9 Heart failure, unspecified
CPT/HCPCS: 36415; 80048; 83880; 96365; 96366; G0463; J1250; J1642

== ENCOUNTER → 2017-07-07 | Outpatient (CLI) | payer OTHER ==
[2017-07-07] VITALS (7 sets, daily range): BP systolic 112–126; BP diastolic 65–84
== END | disposition home or self-care (01) ==
LOC: CHF HDHVI 07:44
PROVIDERS: ATTEND Internal Medicine Cardiovascular Disease
DX: I49.5 Sick sinus syndrome (principal); I48.91 Unspecified atrial fibrillation; I50.9 Heart failure, unspecified
CPT/HCPCS: 96365; 96366; G0463; J1250; J1642

== ENCOUNTER → 2017-07-10 | Outpatient (CLI) | payer OTHER ==
[2017-07-10] VITALS (10 sets, daily range): BP systolic 97–111; BP diastolic 55–69
== END ==
LOC: CHF HDHVI 07:41
PROVIDERS: ATTEND Internal Medicine Cardiovascular Disease
DX: I50.9 Heart failure, unspecified (principal); I48.91 Unspecified atrial fibrillation; Z95.1 Presence of aortocoronary bypass graft
CPT/HCPCS: 96365; 96366; G0463; J1250; J1642

== ENCOUNTER → 2017-07-12 | Outpatient (CLI) | payer OTHER ==
[2017-07-12 10:55] VITALS: BP 125/75
[2017-07-12 12:37] LABS: Basophils # (auto) 0 uL; Basophils % (auto) 0.5 % (0.0-2.0); CONDITION Y; Eosinophils # (auto) 0.3 uL; Eosinophils % (auto) 7.7 % (0.0-7.0); Hematocrit 42.3 % (41.0-53.0); Hemoglobin 14.3 g/dL (13.5-17.5); Lymphocytes # (auto) 1.3 uL; Lymphocytes % (auto) 28.6 % (10.0-50.0); Mean Corpuscular Hemoglobin 33.2 pg (28.0-32.0); Mean Corpuscular Hgb Conc. 33.8 g/dL (32.0-36.0); Mean Corpuscular Volume 98.4 fL (80.0-100.0); Mean Platelet Volume 9.3 fL (7.4-10.4); Monocytes # (auto) 0.7 uL; Monocytes % (auto) 15.8 % (0.0-12.0); Neutrophils # (auto) 2.1 uL; Neutrophils % (auto) 47.4 % (37.0-80.0); Platelet Count (auto) 169 10^3/uL (140-450); White Blood Cell 4.4 10^3/uL (4.4-10.8)
[2017-07-12 13:20] LABS: B-Type Natriuretic Peptide 887.26 pg/mL (0-100)
[2017-07-12 13:21] LABS: Potassium 4.3 mmol/L (3.5-5.1)
[2017-07-12 13:37] LABS: Temperature: 23.3 C (20.0-25.0)
== END | disposition home or self-care (01) ==
LOC: CHF HDHVI 07:23
PROVIDERS: ATTEND Internal Medicine Cardiovascular Disease
DX: I50.9 Heart failure, unspecified (principal); R94.4 Abnormal results of kidney function studies; E87.6 Hypokalemia; D64.9 Anemia, unspecified; I48.91 Unspecified atrial fibrillation; Z95.1 Presence of aortocoronary bypass graft
CPT/HCPCS: 36415; 82565; 83880; 84132; 84520; 85025; 96365; 96366; G0463; J1250; J1642

== ENCOUNTER → 2017-07-14 | Outpatient (CLI) | payer OTHER ==
[2017-07-14] VITALS (10 sets, daily range): BP systolic 95–123; BP diastolic 52–77
== END | disposition home or self-care (01) ==
LOC: CHF HDHVI 07:37
PROVIDERS: ATTEND Internal Medicine Cardiovascular Disease
DX: I50.9 Heart failure, unspecified (principal); I48.91 Unspecified atrial fibrillation; I25.10 Atherosclerotic heart disease of native coronary artery without angina pectoris; Z95.1 Presence of aortocoronary bypass graft; I25.2 Old myocardial infarction
CPT/HCPCS: 96365; 96366; G0463; J1250; J1642

== ENCOUNTER → 2017-07-19 | Outpatient (CLI) | payer OTHER ==
[2017-07-19] VITALS (10 sets, daily range): BP systolic 113–135; BP diastolic 70–87
[2017-07-19 13:05] LABS: Basophils # (auto) 0 uL; Basophils % (auto) 0.7 % (0.0-2.0); CONDITION Y; Eosinophils # (auto) 0.3 uL; Eosinophils % (auto) 8.4 % (0.0-7.0); Hematocrit 43.1 % (41.0-53.0); Hemoglobin 14.7 g/dL (13.5-17.5); Lymphocytes # (auto) 1.3 uL; Lymphocytes % (auto) 33.2 % (10.0-50.0); Mean Corpuscular Hemoglobin 33.5 pg (28.0-32.0); Mean Corpuscular Volume 98.4 fL (80.0-100.0); Mean Platelet Volume 9.4 fL (7.4-10.4); Monocytes # (auto) 0.6 uL; Monocytes % (auto) 14.9 % (0.0-12.0); Neutrophils # (auto) 1.7 uL; Neutrophils % (auto) 42.8 % (37.0-80.0); Platelet Count (auto) 179 10^3/uL (140-450); Red Cell Distribution Width 13.5 % (11.6-16.0); White Blood Cell 3.9 10^3/uL (4.4-10.8)
[2017-07-19 13:31] LABS: Magnesium 2.8 mg/dL (1.6-2.6); Potassium 4.1 mmol/L (3.5-5.1)
[2017-07-19 13:49] LABS: Temperature: 23.3 C (20.0-25.0)
== END | disposition home or self-care (01) ==
LOC: CHF HDHVI 07:30
PROVIDERS: ATTEND Internal Medicine Cardiovascular Disease
DX: I50.9 Heart failure, unspecified (principal); I25.10 Atherosclerotic heart disease of native coronary artery without angina pectoris; E87.6 Hypokalemia; R94.4 Abnormal results of kidney function studies; E83.42 Hypomagnesemia; D64.9 Anemia, unspecified
CPT/HCPCS: 36415; 82565; 83735; 83880; 84132; 84520; 85025; 93701; 96365; 96366; G0463; J1250; J1642

== ENCOUNTER → 2017-07-21 | Outpatient (CLI) | payer OTHER ==
[2017-07-21] VITALS (9 sets, daily range): BP systolic 110–128; BP diastolic 60–83
== END | disposition home or self-care (01) ==
LOC: CHF HDHVI 08:10
PROVIDERS: ATTEND Internal Medicine Cardiovascular Disease
DX: I11.0 Hypertensive heart disease with heart failure (principal); I50.9 Heart failure, unspecified; I48.91 Unspecified atrial fibrillation; E78.5 Hyperlipidemia, unspecified; Z95.810 Presence of automatic (implantable) cardiac defibrillator
CPT/HCPCS: 96365; 96366; G0463; J1250; J1642

== ENCOUNTER → 2017-07-24 | Outpatient (CLI) | payer OTHER ==
[2017-07-23 07:45] VITALS: BP 101/64
[2017-07-24] VITALS (9 sets, daily range): BP systolic 94–112; BP diastolic 51–68
== END | disposition home or self-care (01) ==
LOC: CHF HDHVI 07:30
PROVIDERS: ATTEND Internal Medicine Cardiovascular Disease
DX: I48.91 Unspecified atrial fibrillation (principal); I50.9 Heart failure, unspecified; Z95.810 Presence of automatic (implantable) cardiac defibrillator
CPT/HCPCS: 96365; 96366; G0463; J1250; J1642

== ENCOUNTER → 2017-07-26 | Outpatient (CLI) | payer OTHER ==
[2017-07-26] VITALS (10 sets, daily range): BP systolic 93–124; BP diastolic 49–74
[~2017-07-26] MED LIST changes: +CYANOCOBALAMIN (B-12) 1000 MCG/1 ML VIAL IM ONE; +CYANOCOBALAMIN (B-12) 1000 MCG/1 ML VIAL ONE
[2017-07-26 12:49] LABS: Potassium 4.1 mmol/L (3.5-5.1)
[2017-07-26 12:50] LABS: B-Type Natriuretic Peptide 438.14 pg/mL (0-100)
[2017-07-26 13:20] LABS: Temperature: 23.7 C (20.0-25.0)
== END | disposition home or self-care (01) ==
LOC: CHF HDHVI 07:55
PROVIDERS: ATTEND Internal Medicine Cardiovascular Disease
DX: E87.6 Hypokalemia (principal); R94.4 Abnormal results of kidney function studies; I50.9 Heart failure, unspecified
CPT/HCPCS: 36415; 82565; 83880; 84132; 84520; 96365; 96366; G0463; J1250; J1642; J3420

== ENCOUNTER → 2017-07-28 | Outpatient (CLI) | payer OTHER ==
[2017-07-28] VITALS (10 sets, daily range): BP systolic 97–129; BP diastolic 54–83
[~2017-07-28] MED LIST changes: -CYANOCOBALAMIN (B-12) 1000 MCG/1 ML VIAL IM ONE; -CYANOCOBALAMIN (B-12) 1000 MCG/1 ML VIAL ONE
== END | disposition home or self-care (01) ==
LOC: CHF HDHVI 08:04
PROVIDERS: ATTEND Internal Medicine Cardiovascular Disease
DX: I50.9 Heart failure, unspecified (principal); F31.9 Bipolar disorder, unspecified; Z95.810 Presence of automatic (implantable) cardiac defibrillator
CPT/HCPCS: 96365; 96366; G0463; J1250; J1642

== ENCOUNTER → 2017-08-01 | Outpatient (CLI) | payer OTHER ==
[~2017-08-01] VITALS: Ht 30.5 cm; Wt 90.7 kg
[2017-08-01 08:30] VITALS: BP 97/54
[2017-08-01 08:45] VITALS: BP 97/52
[2017-08-01 09:00] VITALS: BP 100/60
[2017-08-01 09:30] VITALS: BP 108/58
[2017-08-01 10:50] VITALS: BP 126/82
[2017-08-01 12:33] LABS: Basophils # (auto) 0 uL; Basophils % (auto) 0.7 % (0.0-2.0); CONDITION Y; Eosinophils # (auto) 0.4 uL; Eosinophils % (auto) 9.6 % (0.0-7.0); Hematocrit 43.3 % (41.0-53.0); Hemoglobin 14.5 g/dL (13.5-17.5); Lymphocytes # (auto) 1.3 uL; Lymphocytes % (auto) 30.1 % (10.0-50.0); Mean Corpuscular Hemoglobin 33.2 pg (28.0-32.0); Mean Corpuscular Hgb Conc. 33.5 g/dL (32.0-36.0); Mean Corpuscular Volume 99.2 fL (80.0-100.0); Mean Platelet Volume 9.4 fL (7.4-10.4); Monocytes # (auto) 0.6 uL; Monocytes % (auto) 14.1 % (0.0-12.0); Neutrophils # (auto) 1.9 uL; Neutrophils % (auto) 45.5 % (37.0-80.0); Platelet Count (auto) 175 10^3/uL (140-450); Red Cell Distribution Width 13.8 % (11.6-16.0); White Blood Cell 4.2 10^3/uL (4.4-10.8)
[2017-08-01 12:38] LABS: B-Type Natriuretic Peptide 560.2 pg/mL (0-100)
[2017-08-01 12:39] LABS: BUN/Creatinine Ratio 14.8; Calcium 8.6 mg/dL (8.5-10.1); Potassium 3.9 mmol/L (3.5-5.1)
[2017-08-01 12:44] LABS: Temperature: 23.9 C (20.0-25.0)
== END | disposition home or self-care (01) ==
LOC: CHF HDHVI 07:35
PROVIDERS: ATTEND Internal Medicine Cardiovascular Disease
DX: I11.0 Hypertensive heart disease with heart failure (principal); I50.9 Heart failure, unspecified; D64.9 Anemia, unspecified
CPT/HCPCS: 36415; 80048; 83880; 85025; 96365; 96366; G0463; J1250; J1642

== ENCOUNTER → 2017-08-03 | Outpatient (CLI) | payer OTHER ==
[2017-08-03] VITALS (8 sets, daily range): BP systolic 93–115; BP diastolic 52–66
== END | disposition home or self-care (01) ==
LOC: CHF HDHVI 07:31
PROVIDERS: ATTEND Internal Medicine Cardiovascular Disease
DX: I48.91 Unspecified atrial fibrillation (principal)
CPT/HCPCS: 96365; 96366; G0463; J1250; J1642

== ENCOUNTER → 2017-08-07 | Outpatient (CLI) | payer OTHER ==
[2017-08-07] VITALS (10 sets, daily range): BP systolic 98–127; BP diastolic 55–76
== END | disposition home or self-care (01) ==
LOC: CHF HDHVI 07:38
PROVIDERS: ATTEND Internal Medicine Cardiovascular Disease
DX: E87.70 Fluid overload, unspecified (principal); I48.91 Unspecified atrial fibrillation
CPT/HCPCS: 96365; 96366; G0463; J1250; J1642

== ENCOUNTER → 2017-08-09 | Outpatient (CLI) | payer OTHER ==
[2017-08-09] VITALS (10 sets, daily range): BP systolic 106–131; BP diastolic 49–81
[~2017-08-09] VITALS: Ht 30.5 cm; Wt 91.0 kg
[2017-08-09 12:35] LABS: BUN/Creatinine Ratio 16.5; Calcium 8.6 mg/dL (8.5-10.1); Potassium 4.4 mmol/L (3.5-5.1)
[2017-08-09 12:47] LABS: B-Type Natriuretic Peptide 779.95 pg/mL (0-100)
[2017-08-09 12:48] LABS: Temperature: 21.5 C (20.0-25.0)
== END | disposition home or self-care (01) ==
LOC: CHF HDHVI 07:30
PROVIDERS: ATTEND Internal Medicine Cardiovascular Disease
DX: I11.0 Hypertensive heart disease with heart failure (principal); I50.9 Heart failure, unspecified
CPT/HCPCS: 36415; 80048; 83880; 96365; 96366; G0463; J1250; J1642

== ENCOUNTER → 2017-08-11 | Outpatient (CLI) | payer OTHER ==
[2017-08-11] VITALS (10 sets, daily range): BP systolic 108–129; BP diastolic 59–85
[~2017-08-11] VITALS: Ht 30.5 cm; Wt 91.3 kg
== END | disposition home or self-care (01) ==
LOC: CHF HDHVI 07:45
PROVIDERS: ATTEND Internal Medicine Cardiovascular Disease
DX: I50.9 Heart failure, unspecified (principal); I48.91 Unspecified atrial fibrillation; T82.9XXA Unspecified complication of cardiac and vascular prosthetic device, implant and graft, initial encounter
CPT/HCPCS: 96365; 96366; G0463; J1250; J1642

== ENCOUNTER → 2017-08-14 | Outpatient (CLI) | payer OTHER ==
[2017-08-14] VITALS (10 sets, daily range): BP systolic 101–129; BP diastolic 63–85
[~2017-08-14] MED LIST changes: +FUROSEMIDE 20 MG/2 ML VIAL IV ONE; +FUROSEMIDE 20 MG/2 ML VIAL ONE; +POTASSIUM CHL 10 Meq TABLET PO ONE
== END | disposition home or self-care (01) ==
LOC: CHF HDHVI 07:35
PROVIDERS: ATTEND Internal Medicine Cardiovascular Disease
DX: I50.9 Heart failure, unspecified (principal); I25.10 Atherosclerotic heart disease of native coronary artery without angina pectoris; I42.9 Cardiomyopathy, unspecified
CPT/HCPCS: 96365; 96366; 96375; G0463; J1250; J1642; J1940; 96374

== ENCOUNTER → 2017-08-16 | Outpatient (CLI) | payer OTHER ==
[2017-08-16] VITALS (7 sets, daily range): BP systolic 97–118; BP diastolic 60–75
[~2017-08-16] VITALS: Ht 30.5 cm; Wt 91.6 kg
[~2017-08-16] MED LIST changes: -FUROSEMIDE 20 MG/2 ML VIAL IV ONE; -FUROSEMIDE 20 MG/2 ML VIAL ONE; -POTASSIUM CHL 10 Meq TABLET PO ONE
[2017-08-16 12:09] LABS: BUN/Creatinine Ratio 16.8; Calcium 8.5 mg/dL (8.5-10.1); Magnesium 2.7 mg/dL (1.6-2.6); Potassium 4.1 mmol/L (3.5-5.1)
[2017-08-16 12:26] LABS: B-Type Natriuretic Peptide 484.57 pg/mL (0-100); Basophils # (auto) 0 uL; Basophils % (auto) 0.8 % (0.0-2.0); Eosinophils # (auto) 0.4 uL; Eosinophils % (auto) 9.6 % (0.0-7.0); Hematocrit 41.9 % (41.0-53.0); Hemoglobin 14.4 g/dL (13.5-17.5); Lymphocytes # (auto) 1.3 uL; Lymphocytes % (auto) 29.4 % (10.0-50.0); Mean Corpuscular Hemoglobin 33.9 pg (28.0-32.0); Mean Corpuscular Hgb Conc. 34.4 g/dL (32.0-36.0); Mean Corpuscular Volume 98.6 fL (80.0-100.0); Mean Platelet Volume 8.7 fL (6.9-10.8); Monocytes # (auto) 0.6 uL; Monocytes % (auto) 14.2 % (0.0-12.0); Nucleated Red Blood Cells % 0.1 %; Platelet Count (auto) 143 10^3/uL (140-450); Red Cell Distribution Width 13.5 % (11.8-14.3); White Blood Cell 4.4 10^3/uL (4.4-10.8)
[2017-08-16 13:38] LABS: Temperature: 21.9 C (20.0-25.0)
== END | disposition home or self-care (01) ==
LOC: CHF HDHVI 07:32
PROVIDERS: ATTEND Internal Medicine Cardiovascular Disease
DX: I11.0 Hypertensive heart disease with heart failure (principal); I10 Essential (primary) hypertension; I50.9 Heart failure, unspecified; D64.9 Anemia, unspecified; E83.42 Hypomagnesemia
CPT/HCPCS: 36415; 80048; 83735; 83880; 85025; 93701; 96365; 96366; G0463; J1250; J1642

== ENCOUNTER → 2017-08-18 | Outpatient (CLI) | payer OTHER ==
[2017-08-18] VITALS (8 sets, daily range): BP systolic 100–116; BP diastolic 57–66
== END | disposition home or self-care (01) ==
LOC: CHF HDHVI 07:35
PROVIDERS: ATTEND Internal Medicine Cardiovascular Disease
DX: I50.9 Heart failure, unspecified (principal); D64.9 Anemia, unspecified; E29.1 Testicular hypofunction
CPT/HCPCS: 96365; 96366; G0463; J1250; J1642

== ENCOUNTER → 2017-08-21 | Outpatient (CLI) | payer OTHER ==
[2017-08-21] VITALS (9 sets, daily range): BP systolic 95–124; BP diastolic 52–75
[~2017-08-21] MED LIST changes: +CYANOCOBALAMIN (B-12) 1000 MCG/1 ML VIAL IM ONE; +CYANOCOBALAMIN (B-12) 1000 MCG/1 ML VIAL ONE
== END ==
LOC: CHF HDHVI 07:41
PROVIDERS: ATTEND Internal Medicine Cardiovascular Disease
DX: I50.9 Heart failure, unspecified (principal); I48.91 Unspecified atrial fibrillation; Z95.810 Presence of automatic (implantable) cardiac defibrillator
CPT/HCPCS: 96365; 96366; 96372; G0463; J1250; J1642; J3420

== ENCOUNTER → 2017-08-23 | Outpatient (CLI) | payer OTHER ==
[2017-08-23] VITALS (8 sets, daily range): BP systolic 95–125; BP diastolic 50–74
[~2017-08-23] MED LIST changes: -CYANOCOBALAMIN (B-12) 1000 MCG/1 ML VIAL IM ONE; -CYANOCOBALAMIN (B-12) 1000 MCG/1 ML VIAL ONE
[2017-08-23 12:20] LABS: Potassium 3.8 mmol/L (3.5-5.1)
[2017-08-23 12:33] LABS: B-Type Natriuretic Peptide 461.41 pg/mL (0-100)
[2017-08-23 12:41] LABS: Temperature: 23.3 C (20.0-25.0)
== END | disposition home or self-care (01) ==
LOC: CHF HDHVI 07:37
PROVIDERS: ATTEND Internal Medicine Cardiovascular Disease
DX: E87.6 Hypokalemia (principal); R94.4 Abnormal results of kidney function studies; I50.9 Heart failure, unspecified
CPT/HCPCS: 36415; 82565; 83880; 84132; 84520; 96365; 96366; G0463; J1250; J1642

== ENCOUNTER → 2017-08-25 | Outpatient (CLI) | payer OTHER ==
[~2017-08-25] VITALS: Ht 30.5 cm; Wt 61.0 kg
[2017-08-25] VITALS (8 sets, daily range): BP systolic 102–121; BP diastolic 50–71
== END ==
LOC: CHF HDHVI 07:34
PROVIDERS: ATTEND Internal Medicine Cardiovascular Disease
DX: I50.9 Heart failure, unspecified (principal); I25.10 Atherosclerotic heart disease of native coronary artery without angina pectoris; I48.91 Unspecified atrial fibrillation
CPT/HCPCS: 96365; 96366; G0463; J1250; J1642

== ENCOUNTER → 2017-08-28 | Outpatient (CLI) | payer OTHER ==
[2017-08-28] VITALS (8 sets, daily range): BP systolic 103–120; BP diastolic 47–83
[~2017-08-28] VITALS: Ht 30.5 cm; Wt 104.3 kg
== END | disposition home or self-care (01) ==
LOC: CHF HDHVI 07:39
PROVIDERS: ATTEND Internal Medicine Cardiovascular Disease
DX: I50.9 Heart failure, unspecified (principal); I25.10 Atherosclerotic heart disease of native coronary artery without angina pectoris; Z95.1 Presence of aortocoronary bypass graft
CPT/HCPCS: 96365; 96366; G0463; J1250; J1642

== ENCOUNTER → 2017-08-30 | Outpatient (CLI) | payer OTHER ==
[2017-08-30] VITALS (9 sets, daily range): BP systolic 107–129; BP diastolic 58–78
[~2017-08-30] VITALS: Ht 30.5 cm; Wt 0.5 kg
[2017-08-30 12:43] LABS: B-Type Natriuretic Peptide 369.14 pg/mL (0-100); BUN/Creatinine Ratio 15.2; Calcium 8.1 mg/dL (8.5-10.1); Potassium 3.8 mmol/L (3.5-5.1)
[2017-08-30 12:52] LABS: Temperature: 21.7 C (20.0-25.0)
== END | disposition home or self-care (01) ==
LOC: CHF HDHVI 07:41
PROVIDERS: ATTEND Internal Medicine Cardiovascular Disease
DX: I11.0 Hypertensive heart disease with heart failure (principal); I50.9 Heart failure, unspecified; I25.10 Atherosclerotic heart disease of native coronary artery without angina pectoris; I48.91 Unspecified atrial fibrillation
CPT/HCPCS: 36415; 80048; 83880; 96365; 96366; G0463; J1250; J1642

== ENCOUNTER → 2017-09-01 | Outpatient (CLI) | payer OTHER ==
[2017-09-01 07:55] VITALS: BP 116/78
[2017-09-01 08:15] VITALS: BP 112/66
[2017-09-01 08:30] VITALS: BP 107/58
[2017-09-01 08:45] VITALS: BP 106/60
[2017-09-01 11:00] VITALS: BP 122/66
== END | disposition home or self-care (01) ==
LOC: CHF HDHVI 07:41
PROVIDERS: ATTEND Internal Medicine Cardiovascular Disease
DX: I48.91 Unspecified atrial fibrillation (principal); I11.0 Hypertensive heart disease with heart failure; I50.9 Heart failure, unspecified
CPT/HCPCS: 96365; 96366; G0463; J1250; J1642

== ENCOUNTER → 2017-09-04 | Outpatient (CLI) | payer OTHER ==
[2017-09-04] VITALS (8 sets, daily range): BP systolic 99–116; BP diastolic 54–68
[~2017-09-04] VITALS: Ht 30.5 cm; Wt 91.7 kg
[~2017-09-04] MED LIST changes: -HYDR-4663 PO; +HYDR-4683 PO
== END | disposition home or self-care (01) ==
LOC: CHF HDHVI 07:40
PROVIDERS: ATTEND Internal Medicine Cardiovascular Disease
DX: I50.9 Heart failure, unspecified (principal); I25.10 Atherosclerotic heart disease of native coronary artery without angina pectoris; I42.9 Cardiomyopathy, unspecified
CPT/HCPCS: 96365; 96366; G0463; J1250; J1642

== ENCOUNTER → 2017-09-06 | Outpatient (CLI) | payer OTHER ==
[~2017-09-06] MED LIST changes: +HYDR-4663 PO; -HYDR-4683 PO
[2017-09-06 08:00] VITALS: BP 122/79
[2017-09-06 08:15] VITALS: BP 115/68
[2017-09-06 08:30] VITALS: BP 106/62
[2017-09-06 08:45] VITALS: BP 108/64
[2017-09-06 09:15] VITALS: BP 119/72
[2017-09-06 11:15] VITALS: BP 134/78
[2017-09-06 12:47] LABS: Basophils # (auto) 0 uL; Basophils % (auto) 0.8 % (0.0-2.0); Eosinophils # (auto) 0.3 uL; Eosinophils % (auto) 7.4 % (0.0-7.0); Hematocrit 41.8 % (41.0-53.0); Hemoglobin 14.3 g/dL (13.5-17.5); Lymphocytes % (auto) 27.7 % (10.0-50.0); Mean Corpuscular Hemoglobin 33.7 pg (28.0-32.0); Mean Corpuscular Hgb Conc. 34.1 g/dL (32.0-36.0); Mean Corpuscular Volume 98.8 fL (80.0-100.0); Mean Platelet Volume 8.8 fL (6.9-10.8); Monocytes # (auto) 0.6 uL; Monocytes % (auto) 15.5 % (0.0-12.0); Neutrophils # (auto) 1.8 uL; Neutrophils % (auto) 48.6 % (37.0-80.0); Nucleated Red Blood Cells % 0.4 %; Platelet Count (auto) 143 10^3/uL (140-450); Red Cell Distribution Width 13.5 % (11.8-14.3); White Blood Cell 3.7 10^3/uL (4.4-10.8)
[2017-09-06 13:03] LABS: Calcium 8.5 mg/dL (8.5-10.1)
[2017-09-06 13:25] LABS: B-Type Natriuretic Peptide 974.58 pg/mL (0-100); Temperature: 21.5 C (20.0-25.0)
== END | disposition home or self-care (01) ==
LOC: CHF HDHVI 07:32
PROVIDERS: ATTEND Internal Medicine Cardiovascular Disease
DX: I11.0 Hypertensive heart disease with heart failure (principal); I50.9 Heart failure, unspecified; I25.10 Atherosclerotic heart disease of native coronary artery without angina pectoris; E11.9 Type 2 diabetes mellitus without complications; D64.9 Anemia, unspecified; E55.9 Vitamin D deficiency, unspecified; Z98.61 Coronary angioplasty status; Z95.1 Presence of aortocoronary bypass graft
CPT/HCPCS: 36415; 80048; 82306; 83036; 83880; 85025; 96365; 96366; G0463; J1250; J1642

== ENCOUNTER → 2017-09-08 | Outpatient (CLI) | payer OTHER ==
[~2017-09-08] MED LIST changes: -HYDR-4663 PO; +HYDR-4683 PO
[2017-09-08 08:00] VITALS: BP 106/61
[2017-09-08 08:15] VITALS: BP 112/62
[2017-09-08 08:30] VITALS: BP 105/62
[2017-09-08 11:00] VITALS: BP 112/64
== END ==
LOC: CHF HDHVI 07:36
PROVIDERS: ATTEND Internal Medicine Cardiovascular Disease
DX: I50.9 Heart failure, unspecified (principal); I48.91 Unspecified atrial fibrillation; Z95.0 Presence of cardiac pacemaker
CPT/HCPCS: 96365; 96366; G0463; J1250; J1642

== ENCOUNTER → 2017-09-11 | Outpatient (CLI) | payer OTHER ==
[2017-09-11 11:10] VITALS: BP 127/79
== END | disposition home or self-care (01) ==
LOC: CHF HDHVI 07:38
PROVIDERS: ATTEND Internal Medicine Cardiovascular Disease
DX: I50.9 Heart failure, unspecified (principal); I48.91 Unspecified atrial fibrillation; Z95.810 Presence of automatic (implantable) cardiac defibrillator
CPT/HCPCS: 96365; 96366; G0463; J1250; J1642

== ENCOUNTER → 2017-09-13 | Outpatient (CLI) | payer OTHER ==
[2017-09-13] VITALS (9 sets, daily range): BP systolic 106–115; BP diastolic 62–74
[2017-09-13 13:41] LABS: BUN/Creatinine Ratio 18.3; Calcium 8.8 mg/dL (8.5-10.1); Potassium 4.2 mmol/L (3.5-5.1)
[2017-09-13 13:54] LABS: B-Type Natriuretic Peptide 480.55 pg/mL (0-100)
[2017-09-13 14:10] LABS: Temperature: 23.1 C (20.0-25.0)
== END | disposition home or self-care (01) ==
LOC: CHF HDHVI 07:37
PROVIDERS: ATTEND Internal Medicine Cardiovascular Disease
DX: I11.0 Hypertensive heart disease with heart failure (principal); I50.9 Heart failure, unspecified
CPT/HCPCS: 36415; 80048; 83880; 93701; 96365; 96366; G0463; J1250; J1642

== ENCOUNTER → 2017-09-15 | Outpatient (CLI) | payer OTHER ==
[2017-09-15] VITALS (9 sets, daily range): BP systolic 109–129; BP diastolic 62–75
[~2017-09-15] MED LIST changes: +BACITRACIN TOP OINT 1 UD PKG TOP ONE
== END | disposition home or self-care (01) ==
LOC: CHF HDHVI 08:10
PROVIDERS: ATTEND Internal Medicine Cardiovascular Disease
DX: I50.9 Heart failure, unspecified (principal); I25.10 Atherosclerotic heart disease of native coronary artery without angina pectoris; Z95.810 Presence of automatic (implantable) cardiac defibrillator
CPT/HCPCS: 96365; 96366; G0463; J1250; J1642

== ENCOUNTER → 2017-09-18 | Outpatient (CLI) | payer OTHER ==
[2017-09-18] VITALS (9 sets, daily range): BP systolic 110–126; BP diastolic 60–76
== END | disposition home or self-care (01) ==
LOC: CHF HDHVI 07:40
PROVIDERS: ATTEND Internal Medicine Cardiovascular Disease
DX: I50.9 Heart failure, unspecified (principal); I48.91 Unspecified atrial fibrillation; Z95.810 Presence of automatic (implantable) cardiac defibrillator
CPT/HCPCS: 96365; 96366; G0463; J1250; J1642

== ENCOUNTER → 2017-09-20 | Outpatient (CLI) | payer OTHER ==
[2017-09-20] VITALS (7 sets, daily range): BP systolic 98–114; BP diastolic 49–70
[~2017-09-20] VITALS: Ht 30.5 cm; Wt 90.7 kg
[~2017-09-20] MED LIST changes: +DIPHENOXYLATE W/ATROPINE 2.5 MG TAB PO ONE; +SODIUM CHLORIDE 0.9% 200 ML IV SCH
[2017-09-20 12:31] LABS: Basophils # (auto) 0 uL; Basophils % (auto) 0.5 % (0.0-2.0); Eosinophils # (auto) 0.2 uL; Eosinophils % (auto) 4.8 % (0.0-7.0); Hematocrit 42.4 % (41.0-53.0); Hemoglobin 14.3 g/dL (13.5-17.5); Mean Corpuscular Hemoglobin 33.3 pg (28.0-32.0); Mean Corpuscular Hgb Conc. 33.6 g/dL (32.0-36.0); Mean Platelet Volume 8.7 fL (6.9-10.8); Monocytes # (auto) 0.5 uL; Monocytes % (auto) 12.4 % (0.0-12.0); Neutrophils # (auto) 2.4 uL; Neutrophils % (auto) 58.3 % (37.0-80.0); Nucleated Red Blood Cells % 0.1 %; Platelet Count (auto) 143 10^3/uL (140-450); Red Cell Distribution Width 13.5 % (11.8-14.3); White Blood Cell 4.1 10^3/uL (4.4-10.8)
[2017-09-20 12:39] LABS: BUN/Creatinine Ratio 16.7; Calcium 8.3 mg/dL (8.5-10.1)
[2017-09-20 12:56] LABS: B-Type Natriuretic Peptide 642.08 pg/mL (0-100)
[2017-09-20 13:01] LABS: Temperature: 23.3 C (20.0-25.0)
== END | disposition home or self-care (01) ==
LOC: CHF HDHVI 07:36
PROVIDERS: ATTEND Internal Medicine Cardiovascular Disease
DX: I11.0 Hypertensive heart disease with heart failure (principal); I50.9 Heart failure, unspecified; D64.9 Anemia, unspecified; E86.1 Hypovolemia; I48.91 Unspecified atrial fibrillation; R19.7 Diarrhea, unspecified; Z95.810 Presence of automatic (implantable) cardiac defibrillator
CPT/HCPCS: 36415; 80048; 83880; 85025; 96361; 96365; 96366; G0463; J1250; J1642

== ENCOUNTER → 2017-09-21 | Outpatient (CLI) | payer OTHER ==
[~2017-09-21] MED LIST changes: -BACITRACIN TOP OINT 1 UD PKG TOP ONE; -DOBUTamine 1000MCG/ML 250 ML IV ONE; +MVI in SODIUM CHLORIDE 0.9% 1,010 ML ONE; +MVI in SODIUM CHLORIDE 0.9% 500 ML IVB ONE; -SODIUM CHLORIDE 0.9% 200 ML IV SCH; +cloNIDine HCL 0.1 MG TAB ONE
[2017-09-21 09:15] VITALS: BP 107/67
[2017-09-21 09:45] VITALS: BP 100/57
[2017-09-21 10:15] VITALS: BP 106/66
[2017-09-21 10:45] VITALS: BP 108/63
[2017-09-21 11:15] VITALS: BP 116/68
[2017-09-21 12:10] VITALS: BP 116/68
[2017-09-21 12:45] LABS: Albumin 3.9 g/dL (3.4-5.0); BUN/Creatinine Ratio 14.4; Calcium 8.5 mg/dL (8.5-10.1); Magnesium 2.4 mg/dL (1.6-2.6); Potassium 3.9 mmol/L (3.5-5.1); Total Protein 7.5 g/dL (6.4-8.2)
== END | disposition home or self-care (01) ==
LOC: CHF HDHVI 08:33
PROVIDERS: ATTEND Internal Medicine Cardiovascular Disease
DX: I11.0 Hypertensive heart disease with heart failure (principal); I50.9 Heart failure, unspecified; E83.42 Hypomagnesemia; R74.8 Abnormal levels of other serum enzymes; I25.10 Atherosclerotic heart disease of native coronary artery without angina pectoris; E86.0 Dehydration; R19.7 Diarrhea, unspecified
CPT/HCPCS: 36415; 80053; 82150; 83690; 83735; 96365; 96366; G0463; J1642; J3411; J3475

== ENCOUNTER → 2017-09-22 | Outpatient (CLI) | payer OTHER ==
[~2017-09-22] MED LIST changes: -DIPHENOXYLATE W/ATROPINE 2.5 MG TAB PO ONE; +DOBUTamine 1000MCG/ML 250 ML IV ONE; -MVI in SODIUM CHLORIDE 0.9% 1,010 ML ONE; -MVI in SODIUM CHLORIDE 0.9% 500 ML IVB ONE; -cloNIDine HCL 0.1 MG TAB ONE
[2017-09-22 08:00] VITALS: BP 110/72
[2017-09-22 08:15] VITALS: BP 116/66
[2017-09-22 08:30] VITALS: BP 111/62
[2017-09-22 08:45] VITALS: BP 108/60
[2017-09-22 11:10] VITALS: BP 127/62
== END | disposition home or self-care (01) ==
LOC: CHF HDHVI 07:34
PROVIDERS: ATTEND Internal Medicine Cardiovascular Disease
DX: I50.9 Heart failure, unspecified (principal); D64.9 Anemia, unspecified; I48.91 Unspecified atrial fibrillation
CPT/HCPCS: 96365; 96366; G0463; J1250; J1642

== ENCOUNTER → 2017-09-25 | Outpatient (CLI) | payer OTHER ==
[2017-09-25] VITALS (7 sets, daily range): BP systolic 90–112; BP diastolic 52–69
[~2017-09-25] MED LIST changes: +CYANOCOBALAMIN (B-12) 1000 MCG/1 ML VIAL IM ONE; +CYANOCOBALAMIN (B-12) 1000 MCG/1 ML VIAL ONE
== END | disposition home or self-care (01) ==
LOC: CHF HDHVI 07:40
PROVIDERS: ATTEND Internal Medicine Cardiovascular Disease
DX: I50.9 Heart failure, unspecified (principal); I25.10 Atherosclerotic heart disease of native coronary artery without angina pectoris; R53.81 Other malaise; R53.83 Other fatigue
CPT/HCPCS: 96365; 96366; 96372; G0463; J1250; J1642; J3420

== ENCOUNTER → 2017-09-27 | Outpatient (CLI) | payer OTHER ==
[~2017-09-27] VITALS: Ht 30.5 cm; Wt 90.7 kg
[~2017-09-27] MED LIST changes: -CYANOCOBALAMIN (B-12) 1000 MCG/1 ML VIAL IM ONE; -CYANOCOBALAMIN (B-12) 1000 MCG/1 ML VIAL ONE
[2017-09-27 08:15] VITALS: BP 103/63
[2017-09-27 08:30] VITALS: BP 96/56
[2017-09-27 08:45] VITALS: BP 91/54
[2017-09-27 12:31] LABS: Basophils # (auto) 0 uL; Basophils % (auto) 0.8 % (0.0-2.0); Eosinophils # (auto) 0.3 uL; Eosinophils % (auto) 6.2 % (0.0-7.0); Hematocrit 41.3 % (41.0-53.0); Hemoglobin 14.1 g/dL (13.5-17.5); Lymphocytes # (auto) 1.3 uL; Lymphocytes % (auto) 27.3 % (10.0-50.0); Mean Corpuscular Hemoglobin 33.4 pg (28.0-32.0); Mean Corpuscular Hgb Conc. 34.3 g/dL (32.0-36.0); Mean Corpuscular Volume 97.6 fL (80.0-100.0); Mean Platelet Volume 8.7 fL (6.9-10.8); Monocytes # (auto) 0.6 uL; Monocytes % (auto) 13.4 % (0.0-12.0); Neutrophils # (auto) 2.4 uL; Neutrophils % (auto) 52.3 % (37.0-80.0); Nucleated Red Blood Cells % 0.1 %; Platelet Count (auto) 159 10^3/uL (140-450); Red Cell Distribution Width 13.4 % (11.8-14.3); White Blood Cell 4.6 10^3/uL (4.4-10.8)
[2017-09-27 12:45] LABS: BUN/Creatinine Ratio 17.8; Calcium 8.4 mg/dL (8.5-10.1); Magnesium 2.7 mg/dL (1.6-2.6); Potassium 3.9 mmol/L (3.5-5.1)
[2017-09-27 12:53] LABS: B-Type Natriuretic Peptide 438.75 pg/mL (0-100)
[2017-09-27 13:03] LABS: Temperature: 23.5 C (20.0-25.0)
[2017-09-28 08:37] VITALS: BP 114/62
== END | disposition home or self-care (01) ==
LOC: CHF HDHVI 08:23
PROVIDERS: ATTEND Internal Medicine Cardiovascular Disease
DX: I11.0 Hypertensive heart disease with heart failure (principal); I50.9 Heart failure, unspecified; I25.10 Atherosclerotic heart disease of native coronary artery without angina pectoris; E83.42 Hypomagnesemia; D64.9 Anemia, unspecified
CPT/HCPCS: 36415; 80048; 83735; 83880; 85025; J1250; J1642

== ENCOUNTER → 2017-09-29 | Outpatient (CLI) | payer OTHER ==
[2017-09-29] VITALS (7 sets, daily range): BP systolic 94–114; BP diastolic 52–71
== END | disposition home or self-care (01) ==
LOC: CHF HDHVI 07:31
PROVIDERS: ATTEND Internal Medicine Cardiovascular Disease
DX: I50.9 Heart failure, unspecified (principal); I49.5 Sick sinus syndrome; I48.91 Unspecified atrial fibrillation
CPT/HCPCS: 96365; 96366; G0463; J1250; J1642

== ENCOUNTER → 2017-10-02 | Outpatient (CLI) | payer OTHER ==
[2017-10-02] VITALS (7 sets, daily range): BP systolic 103–124; BP diastolic 59–77
== END | disposition home or self-care (01) ==
LOC: CHF HDHVI 07:54
PROVIDERS: ATTEND Internal Medicine Cardiovascular Disease
DX: I50.9 Heart failure, unspecified (principal); I48.91 Unspecified atrial fibrillation; Z95.810 Presence of automatic (implantable) cardiac defibrillator
CPT/HCPCS: 96365; 96366; G0463; J1250; J1642

== ENCOUNTER → 2017-10-04 | Outpatient (CLI) | payer OTHER ==
[~2017-10-04] VITALS: Ht 30.5 cm; Wt 91.2 kg
[2017-10-04] VITALS (9 sets, daily range): BP systolic 89–130; BP diastolic 47–77
[2017-10-04 13:15] LABS: Potassium 4.7 mmol/L (3.5-5.1)
[2017-10-04 13:19] LABS: B-Type Natriuretic Peptide 615.87 pg/mL (0-100); Temperature: 21.2 C (20.0-25.0)
== END | disposition home or self-care (01) ==
LOC: CHF HDHVI 07:52
PROVIDERS: ATTEND Internal Medicine Cardiovascular Disease
DX: I50.9 Heart failure, unspecified (principal); R94.4 Abnormal results of kidney function studies; E78.6 Lipoprotein deficiency
CPT/HCPCS: 36415; 82565; 83880; 84132; 84520; 96365; 96366; G0463; J1250; J1642

== ENCOUNTER → 2017-10-06 | Outpatient (CLI) | payer OTHER ==
[2017-10-06] VITALS (10 sets, daily range): BP systolic 103–123; BP diastolic 56–73
== END ==
LOC: CHF HDHVI 08:07
PROVIDERS: ATTEND Internal Medicine Cardiovascular Disease
DX: I10 Essential (primary) hypertension (principal); I48.91 Unspecified atrial fibrillation; I25.10 Atherosclerotic heart disease of native coronary artery without angina pectoris; D64.9 Anemia, unspecified
CPT/HCPCS: 96365; 96366; G0463; J1250; J1642

== ENCOUNTER → 2017-10-09 | Outpatient (CLI) | payer OTHER ==
[2017-10-09] VITALS (7 sets, daily range): BP systolic 89–117; BP diastolic 45–67
[~2017-10-09] MED LIST changes: +KETOROLAC TROMETH 60MG/2ML VIAL IM ONE
== END | disposition home or self-care (01) ==
LOC: CHF HDHVI 07:37
PROVIDERS: ATTEND Internal Medicine Cardiovascular Disease
DX: I50.9 Heart failure, unspecified (principal); D64.9 Anemia, unspecified; M54.9 Dorsalgia, unspecified
CPT/HCPCS: 96365; 96366; 96372; G0463; J1250; J1642; J1885

== ENCOUNTER → 2017-10-11 | Outpatient (CLI) | payer OTHER ==
[~2017-10-11] VITALS: Ht 30.5 cm; Wt 0.5 kg
[2017-10-11] VITALS (9 sets, daily range): BP systolic 98–124; BP diastolic 51–75
[~2017-10-11] MED LIST changes: -KETOROLAC TROMETH 60MG/2ML VIAL IM ONE
[2017-10-11 12:55] LABS: Magnesium 2.5 mg/dL (1.6-2.6); Potassium 4.2 mmol/L (3.5-5.1)
[2017-10-11 13:25] LABS: B-Type Natriuretic Peptide 401.3 pg/mL (0-100)
[2017-10-11 13:27] LABS: Temperature: 22.7 C (20.0-25.0)
== END | disposition home or self-care (01) ==
LOC: CHF HDHVI 08:11
PROVIDERS: ATTEND Internal Medicine Cardiovascular Disease
DX: I50.9 Heart failure, unspecified (principal); E87.6 Hypokalemia; R94.4 Abnormal results of kidney function studies; E83.42 Hypomagnesemia
CPT/HCPCS: 36415; 72128; 72131; 77078; 82565; 83735; 83880; 84132; 84520; 96365; 96366; G0463; J1250; J1642

== ENCOUNTER → 2017-10-13 | Outpatient (CLI) | payer OTHER ==
[~2017-10-13] VITALS: Ht 30.5 cm; Wt 90.5 kg
[2017-10-13] VITALS (8 sets, daily range): BP systolic 105–134; BP diastolic 56–79
== END | disposition home or self-care (01) ==
LOC: CHF HDHVI 08:21
PROVIDERS: ATTEND Internal Medicine Cardiovascular Disease
DX: I50.9 Heart failure, unspecified (principal); I48.91 Unspecified atrial fibrillation; D64.9 Anemia, unspecified; I25.10 Atherosclerotic heart disease of native coronary artery without angina pectoris; M25.519 Pain in unspecified shoulder
CPT/HCPCS: 96365; 96366; G0463; J1250; J1642

== ENCOUNTER → 2017-10-16 | Outpatient (CLI) | payer OTHER ==
[2017-10-16] VITALS (9 sets, daily range): BP systolic 109–125; BP diastolic 61–81
== END | disposition home or self-care (01) ==
LOC: CHF HDHVI 07:56
PROVIDERS: ATTEND Internal Medicine Cardiovascular Disease
DX: I50.9 Heart failure, unspecified (principal); I48.91 Unspecified atrial fibrillation; R53.83 Other fatigue; Z95.810 Presence of automatic (implantable) cardiac defibrillator
CPT/HCPCS: 96365; 96366; G0463; J1250; J1642

== ENCOUNTER → 2017-10-18 | Outpatient (CLI) | payer OTHER ==
[2017-10-18 07:45] VITALS: BP 125/81
[2017-10-18 08:00] VITALS: BP 100/58
[2017-10-18 08:15] VITALS: BP 112/66
[2017-10-18 08:30] VITALS: BP 111/61
[2017-10-18 08:45] VITALS: BP 120/70
[2017-10-18 10:50] VITALS: BP 120/72
[2017-10-18 12:42] LABS: BUN/Creatinine Ratio 16.8; Calcium 8.6 mg/dL (8.5-10.1); Potassium 4.4 mmol/L (3.5-5.1)
[2017-10-18 12:49] LABS: B-Type Natriuretic Peptide 339.68 pg/mL (0-100)
[2017-10-18 12:52] LABS: Temperature: 23.1 C (20.0-25.0)
== END | disposition home or self-care (01) ==
LOC: CHF HDHVI 07:50
PROVIDERS: ATTEND Internal Medicine Cardiovascular Disease
DX: I10 Essential (primary) hypertension (principal); I50.9 Heart failure, unspecified
CPT/HCPCS: 36415; 80048; 83880; 96365; 96366; G0463; J1250; J1642

== ENCOUNTER → 2017-10-23 | Outpatient (CLI) | payer OTHER ==
[2017-10-23] VITALS (8 sets, daily range): BP systolic 90–117; BP diastolic 50–67
[~2017-10-23] MED LIST changes: +CYANOCOBALAMIN (B-12) 1000 MCG/1 ML VIAL IM ONE; +CYANOCOBALAMIN (B-12) 1000 MCG/1 ML VIAL ONE
== END | disposition home or self-care (01) ==
LOC: CHF HDHVI 07:52
PROVIDERS: ATTEND Internal Medicine Cardiovascular Disease
DX: I50.9 Heart failure, unspecified (principal); I48.91 Unspecified atrial fibrillation; Z95.810 Presence of automatic (implantable) cardiac defibrillator
CPT/HCPCS: 96365; 96366; 96372; G0463; J1250; J1642; J3420

== ENCOUNTER → 2017-10-25 | Outpatient (CLI) | payer OTHER ==
[2017-10-25] VITALS (10 sets, daily range): BP systolic 102–125; BP diastolic 58–78
[~2017-10-25] MED LIST changes: -CYANOCOBALAMIN (B-12) 1000 MCG/1 ML VIAL IM ONE; -CYANOCOBALAMIN (B-12) 1000 MCG/1 ML VIAL ONE
[2017-10-25 13:17] LABS: B-Type Natriuretic Peptide 438.37 pg/mL (0-100)
[2017-10-25 13:23] LABS: Potassium 4.2 mmol/L (3.5-5.1)
[2017-10-25 13:28] LABS: Temperature: 21.7 C (20.0-25.0)
== END | disposition home or self-care (01) ==
LOC: CHF HDHVI 07:49
PROVIDERS: ATTEND Internal Medicine Cardiovascular Disease
DX: I50.9 Heart failure, unspecified (principal); E87.6 Hypokalemia; R94.4 Abnormal results of kidney function studies; I48.91 Unspecified atrial fibrillation; Z95.810 Presence of automatic (implantable) cardiac defibrillator
CPT/HCPCS: 36415; 82565; 83880; 84132; 84520; 96365; 96366; G0463; J1250; J1642

== ENCOUNTER → 2017-10-27 | Outpatient (CLI) | payer OTHER ==
[~2017-10-27] VITALS: Ht 30.5 cm; Wt 90.3 kg
[2017-10-27] VITALS (9 sets, daily range): BP systolic 107–125; BP diastolic 55–72
== END | disposition home or self-care (01) ==
LOC: CHF HDHVI 08:02
PROVIDERS: ATTEND Internal Medicine Cardiovascular Disease
DX: I11.0 Hypertensive heart disease with heart failure (principal); I50.9 Heart failure, unspecified; I48.91 Unspecified atrial fibrillation; E78.5 Hyperlipidemia, unspecified; D64.9 Anemia, unspecified; M19.90 Unspecified osteoarthritis, unspecified site
CPT/HCPCS: 93701; 96365; 96366; G0463; J1250; J1642

== ENCOUNTER → 2017-10-30 | Outpatient (CLI) | payer OTHER ==
[2017-10-30] VITALS (9 sets, daily range): BP systolic 91–107; BP diastolic 48–62
== END | disposition home or self-care (01) ==
LOC: CHF HDHVI 08:07
PROVIDERS: ATTEND Internal Medicine Cardiovascular Disease
DX: I50.9 Heart failure, unspecified (principal); I25.10 Atherosclerotic heart disease of native coronary artery without angina pectoris
CPT/HCPCS: 96365; 96366; G0463; J1250; J1642

== ENCOUNTER → 2017-11-01 | Outpatient (CLI) | payer OTHER ==
[2017-11-01] VITALS (9 sets, daily range): BP systolic 98–132; BP diastolic 52–77
[~2017-11-01] MED LIST changes: -EZET10TA2 PO; +EZET10TA6 PO
[2017-11-01 14:02] LABS: Basophils # (auto) 0 uL; Eosinophils # (auto) 0.3 uL; Monocytes # (auto) 0.6 uL
[2017-11-01 14:05] LABS: Basophils % (auto) 0.7 % (0.0-2.0); Hematocrit 41.6 % (41.0-53.0); Hemoglobin 14.6 g/dL (13.5-17.5); Lymphocytes % (auto) 25.7 % (10.0-50.0); Mean Corpuscular Hemoglobin 34.7 pg (28.0-32.0); Mean Corpuscular Volume 98.9 fL (80.0-100.0); Monocytes % (auto) 15.4 % (0.0-12.0); Neutrophils # (auto) 2.1 uL; Neutrophils % (auto) 51.2 % (37.0-80.0); Nucleated Red Blood Cells % 0.1 %; Platelet Count (auto) 159 10^3/uL (140-450); Red Cell Distribution Width 13.3 % (11.8-14.3); White Blood Cell 4.1 10^3/uL (4.4-10.8)
[2017-11-01 14:21] LABS: Magnesium 2.6 mg/dL (1.6-2.6); Potassium 4.2 mmol/L (3.5-5.1)
[2017-11-01 14:31] LABS: B-Type Natriuretic Peptide 307.7 pg/mL (0-100)
[2017-11-01 14:40] LABS: Temperature: 24.1 C (20.0-25.0)
== END | disposition home or self-care (01) ==
LOC: CHF HDHVI 07:52
PROVIDERS: ATTEND Internal Medicine Cardiovascular Disease
DX: E87.5 Hyperkalemia (principal); R94.4 Abnormal results of kidney function studies; E83.42 Hypomagnesemia; I50.9 Heart failure, unspecified; I48.91 Unspecified atrial fibrillation; R53.83 Other fatigue
CPT/HCPCS: 36415; 82565; 83735; 83880; 84132; 84520; 85025; 96365; 96366; G0463; J1250; J1642

== ENCOUNTER → 2017-11-03 | Outpatient (CLI) | payer OTHER ==
[2017-11-03] VITALS (9 sets, daily range): BP systolic 98–129; BP diastolic 52–77
[~2017-11-03] VITALS: Ht 30.5 cm; Wt 90.7 kg
== END ==
LOC: CHF HDHVI 07:41
PROVIDERS: ATTEND Internal Medicine Cardiovascular Disease
DX: I50.9 Heart failure, unspecified (principal); I48.91 Unspecified atrial fibrillation; Z95.810 Presence of automatic (implantable) cardiac defibrillator
CPT/HCPCS: 96365; 96366; G0463; J1250; J1642

== ENCOUNTER → 2017-11-06 | Outpatient (CLI) | payer OTHER ==
[2017-11-06] VITALS (8 sets, daily range): BP systolic 107–132; BP diastolic 60–74
== END | disposition home or self-care (01) ==
LOC: CHF HDHVI 07:49
PROVIDERS: ATTEND Internal Medicine Cardiovascular Disease
DX: I50.9 Heart failure, unspecified (principal); I48.91 Unspecified atrial fibrillation; Z95.810 Presence of automatic (implantable) cardiac defibrillator
CPT/HCPCS: 96365; 96366; G0463; J1250; J1642

== ENCOUNTER → 2017-11-08 | Outpatient (CLI) | payer OTHER ==
[2017-11-08] VITALS (10 sets, daily range): BP systolic 107–126; BP diastolic 55–83
[~2017-11-08] VITALS: Ht 30.5 cm; Wt 0.5 kg
[2017-11-08 16:51] LABS: Potassium 4.5 mmol/L (3.5-5.1)
[2017-11-08 17:01] LABS: B-Type Natriuretic Peptide 363.83 pg/mL (0-100)
[2017-11-08 17:11] LABS: Temperature: 23.1 C (20.0-25.0)
== END | disposition home or self-care (01) ==
LOC: CHF HDHVI 07:48
PROVIDERS: ATTEND Internal Medicine Cardiovascular Disease
DX: I50.9 Heart failure, unspecified (principal); E87.5 Hyperkalemia; R94.4 Abnormal results of kidney function studies; I25.10 Atherosclerotic heart disease of native coronary artery without angina pectoris
CPT/HCPCS: 36415; 82565; 83880; 84132; 84520; 96365; 96366; G0463; J1250; J1642

== ENCOUNTER → 2017-11-10 | Outpatient (CLI) | payer OTHER ==
[2017-11-10] VITALS (9 sets, daily range): BP systolic 91–141; BP diastolic 51–81
== END ==
LOC: CHF HDHVI 07:57
PROVIDERS: ATTEND Internal Medicine Cardiovascular Disease
DX: I11.0 Hypertensive heart disease with heart failure (principal); I25.10 Atherosclerotic heart disease of native coronary artery without angina pectoris; I48.91 Unspecified atrial fibrillation; I10 Essential (primary) hypertension
CPT/HCPCS: 96365; 96366; G0463; J1250; J1642

== ENCOUNTER → 2017-11-13 | Outpatient (CLI) | payer OTHER ==
[~2017-11-13] VITALS: Ht 30.5 cm; Wt 89.8 kg
[2017-11-13] VITALS (9 sets, daily range): BP systolic 108–123; BP diastolic 59–79
[~2017-11-13] MED LIST changes: +GLUCCAP OR; +MAGN400T5 PO; +POTA10TA51 PO; +POTA20TA53 PO; +SACU1TAB PO
== END | disposition home or self-care (01) ==
LOC: CHF HDHVI 07:46
PROVIDERS: ATTEND Internal Medicine Cardiovascular Disease
DX: I50.9 Heart failure, unspecified (principal); I25.10 Atherosclerotic heart disease of native coronary artery without angina pectoris; I48.91 Unspecified atrial fibrillation; J44.9 Chronic obstructive pulmonary disease, unspecified; Z95.1 Presence of aortocoronary bypass graft
CPT/HCPCS: 96365; 96366; G0463; J1250; J1642

== ENCOUNTER → 2017-11-15 | Outpatient (CLI) | payer OTHER ==
[2017-11-15] VITALS (7 sets, daily range): BP systolic 99–127; BP diastolic 58–75
[2017-11-15 12:08] LABS: BUN/Creatinine Ratio 19.8; Calcium 8.1 mg/dL (8.5-10.1)
== END | disposition home or self-care (01) ==
LOC: CHF HDHVI 07:52
PROVIDERS: ATTEND Internal Medicine Cardiovascular Disease
DX: I11.0 Hypertensive heart disease with heart failure (principal); I50.9 Heart failure, unspecified; I48.91 Unspecified atrial fibrillation; Z95.810 Presence of automatic (implantable) cardiac defibrillator
CPT/HCPCS: 36415; 80048; 83880; 96365; 96366; G0463; J1250; J1642

== ENCOUNTER → 2017-11-17 | Outpatient (CLI) | payer OTHER ==
[2017-11-17] VITALS (7 sets, daily range): BP systolic 101–119; BP diastolic 53–73
[~2017-11-17] MED LIST changes: +CYANOCOBALAMIN (B-12) 1000 MCG/1 ML VIAL IM ONE; +CYANOCOBALAMIN (B-12) 1000 MCG/1 ML VIAL ONE
== END | disposition home or self-care (01) ==
LOC: CHF HDHVI 07:37
PROVIDERS: ATTEND Internal Medicine Cardiovascular Disease
DX: I11.0 Hypertensive heart disease with heart failure (principal); I50.9 Heart failure, unspecified; I25.10 Atherosclerotic heart disease of native coronary artery without angina pectoris; I48.91 Unspecified atrial fibrillation
CPT/HCPCS: 96365; 96366; 96372; G0463; J1250; J1642; J3420

== ENCOUNTER → 2017-11-21 | Outpatient (CLI) | payer OTHER ==
[2017-11-21] VITALS (7 sets, daily range): BP systolic 110–130; BP diastolic 64–72
[~2017-11-21] MED LIST changes: -CYANOCOBALAMIN (B-12) 1000 MCG/1 ML VIAL IM ONE; -CYANOCOBALAMIN (B-12) 1000 MCG/1 ML VIAL ONE
== END | disposition home or self-care (01) ==
LOC: CHF HDHVI 07:44
PROVIDERS: ATTEND Internal Medicine Cardiovascular Disease
DX: I50.9 Heart failure, unspecified (principal); I48.91 Unspecified atrial fibrillation; Z95.810 Presence of automatic (implantable) cardiac defibrillator
CPT/HCPCS: 96365; 96366; G0463; J1250; J1642

== ENCOUNTER → 2017-11-23 | Outpatient (CLI) | payer OTHER ==
[2017-11-23] VITALS (9 sets, daily range): BP systolic 105–138; BP diastolic 62–85
[~2017-11-23] VITALS: Ht 30.5 cm; Wt 0.5 kg
[2017-11-23 16:08] LABS: Potassium 3.9 mmol/L (3.5-5.1)
== END | disposition home or self-care (01) ==
LOC: CHF HDHVI 07:38
PROVIDERS: ATTEND Internal Medicine Cardiovascular Disease
DX: I50.9 Heart failure, unspecified (principal); E87.5 Hyperkalemia; R94.4 Abnormal results of kidney function studies; I48.91 Unspecified atrial fibrillation; Z95.810 Presence of automatic (implantable) cardiac defibrillator
CPT/HCPCS: 36415; 82565; 83880; 84132; 84520; 96365; 96366; G0463; J1250; J1642

== ENCOUNTER → 2017-11-28 | Outpatient (CLI) | payer OTHER ==
[2017-11-28] VITALS (9 sets, daily range): BP systolic 97–138; BP diastolic 55–85
== END | disposition home or self-care (01) ==
LOC: CHF HDHVI 07:53
PROVIDERS: ATTEND Internal Medicine Cardiovascular Disease
DX: I50.9 Heart failure, unspecified (principal); I48.91 Unspecified atrial fibrillation; Z95.810 Presence of automatic (implantable) cardiac defibrillator
CPT/HCPCS: 96365; 96366; G0463; J1250; J1642

== ENCOUNTER → 2017-11-30 | Outpatient (CLI) | payer OTHER ==
[2017-11-30] VITALS (9 sets, daily range): BP systolic 107–128; BP diastolic 57–75
== END | disposition home or self-care (01) ==
LOC: CHF HDHVI 07:44
PROVIDERS: ATTEND Internal Medicine Cardiovascular Disease
DX: I50.9 Heart failure, unspecified (principal); I48.91 Unspecified atrial fibrillation; Z95.810 Presence of automatic (implantable) cardiac defibrillator
CPT/HCPCS: 96365; 96366; G0463; J1250; J1642

== ENCOUNTER → 2017-12-04 | Outpatient (CLI) | payer OTHER ==
[2017-12-04] VITALS (10 sets, daily range): BP systolic 94–115; BP diastolic 53–73
== END | disposition home or self-care (01) ==
LOC: CHF HDHVI 07:51
PROVIDERS: ATTEND Internal Medicine Cardiovascular Disease
DX: I50.9 Heart failure, unspecified (principal); I48.91 Unspecified atrial fibrillation; Z95.810 Presence of automatic (implantable) cardiac defibrillator
CPT/HCPCS: 96365; 96366; G0463; J1250; J1642

== ENCOUNTER → 2017-12-06 | Outpatient (CLI) | payer OTHER ==
[~2017-12-06] VITALS: Ht 30.5 cm; Wt 92.1 kg
[2017-12-06] VITALS (9 sets, daily range): BP systolic 114–127; BP diastolic 61–79
[~2017-12-06] MED LIST changes: +CATHFLO ACTIVASE (ALTEPLASE) 2 MG VIAL IV ONE
[2017-12-06 12:51] LABS: Potassium 4.3 mmol/L (3.5-5.1)
[2017-12-06 12:52] LABS: BUN/Creatinine Ratio 14.5; Calcium 8.8 mg/dL (8.5-10.1); Magnesium 2.7 mg/dL (1.6-2.6)
== END | disposition home or self-care (01) ==
LOC: CHF HDHVI 07:53
PROVIDERS: ATTEND Internal Medicine Cardiovascular Disease
DX: I11.0 Hypertensive heart disease with heart failure (principal); I50.9 Heart failure, unspecified; E83.42 Hypomagnesemia; E11.9 Type 2 diabetes mellitus without complications; I48.91 Unspecified atrial fibrillation; Z95.810 Presence of automatic (implantable) cardiac defibrillator
CPT/HCPCS: 36415; 80048; 83036; 83735; 83880; 96365; 96366; 96374; 96375; G0463; J1642

== ENCOUNTER → 2017-12-08 | Outpatient (CLI) | payer OTHER ==
[~2017-12-08] MED LIST changes: -CATHFLO ACTIVASE (ALTEPLASE) 2 MG VIAL IV ONE
[2017-12-08 07:50] VITALS: BP 108/72
[2017-12-08 08:15] VITALS: BP 103/66
[2017-12-08 08:30] VITALS: BP 107/73
[2017-12-08 09:00] VITALS: BP 110/72
[2017-12-08 09:30] VITALS: BP 121/80
[2017-12-08 11:00] VITALS: BP 128/85
== END | disposition home or self-care (01) ==
LOC: CHF HDHVI 07:59
PROVIDERS: ATTEND Internal Medicine Cardiovascular Disease
DX: I50.9 Heart failure, unspecified (principal); I48.91 Unspecified atrial fibrillation; Z95.810 Presence of automatic (implantable) cardiac defibrillator
CPT/HCPCS: 96365; 96366; G0463; J1642

== ENCOUNTER → 2017-12-11 | Outpatient (CLI) | payer OTHER ==
[2017-12-11] VITALS (10 sets, daily range): BP systolic 91–119; BP diastolic 50–74
== END | disposition home or self-care (01) ==
LOC: CHF HDHVI 08:41
PROVIDERS: ATTEND Internal Medicine Cardiovascular Disease
DX: I50.9 Heart failure, unspecified (principal); I48.91 Unspecified atrial fibrillation; Z95.810 Presence of automatic (implantable) cardiac defibrillator
CPT/HCPCS: 96365; 96366; G0463; J1250; J1642

== ENCOUNTER → 2017-12-13 | Outpatient (CLI) | payer OTHER ==
[~2017-12-13] VITALS: Ht 30.5 cm; Wt 91.4 kg
[~2017-12-13] MED LIST changes: +CHOLESTYRAMINE 4 GM POWDER ONE; +LEVOFLOXACIN 500 MG TAB ONE; +LEVOFLOXACIN 500 MG TAB PO ONE; +MVI in SODIUM CHLORIDE 0.9% 1,010 ML ONE; +MVI in SODIUM CHLORIDE 0.9% 500 ML IVB ONE; +ONDANSETRON HCL 4 MG/2 ML VIAL IV ONE; +ONDANSETRON HCL 4 MG/2 ML VIAL ONE
[2017-12-13 07:50] VITALS: BP 116/76
[2017-12-13 08:15] VITALS: BP 103/57
[2017-12-13 08:30] VITALS: BP 106/60
[2017-12-13 08:45] VITALS: BP 97/56
[2017-12-13 12:00] VITALS: BP 127/97
[2017-12-13 12:29] LABS: Basophils # (auto) 0 uL; Basophils % (auto) 0.8 % (0.0-2.0); Eosinophils # (auto) 0.3 uL; Eosinophils % (auto) 8.5 % (0.0-7.0); Hematocrit 42.8 % (41.0-53.0); Hemoglobin 14.6 g/dL (13.5-17.5); Lymphocytes % (auto) 26.1 % (10.0-50.0); Mean Corpuscular Hemoglobin 33.4 pg (28.0-32.0); Mean Corpuscular Volume 98.2 fL (80.0-100.0); Monocytes # (auto) 0.5 uL; Monocytes % (auto) 14.5 % (0.0-12.0); Neutrophils # (auto) 1.8 uL; Neutrophils % (auto) 50.1 % (37.0-80.0); Platelet Count (auto) 165 10^3/uL (140-450); Red Blood Cells 4.36 10^6/uL (4.5-5.90); Red Cell Distribution Width 13.5 % (11.8-14.3); White Blood Cell 3.7 10^3/uL (4.4-10.8)
[2017-12-13 13:38] LABS: BUN/Creatinine Ratio 14.8; Calcium 8.6 mg/dL (8.5-10.1); Potassium 4.5 mmol/L (3.5-5.1)
== END | disposition home or self-care (01) ==
LOC: CHF HDHVI 07:50
PROVIDERS: ATTEND Internal Medicine Cardiovascular Disease
DX: I11.0 Hypertensive heart disease with heart failure (principal); I50.9 Heart failure, unspecified; D64.9 Anemia, unspecified; I25.10 Atherosclerotic heart disease of native coronary artery without angina pectoris
CPT/HCPCS: 36415; 80048; 83880; 85025; 96365; 96366; 96375; G0463; J1250; J1642; J2405; J3411; J3475

== ENCOUNTER → 2017-12-14 | Outpatient (CLI) | payer OTHER ==
[~2017-12-14] MED LIST changes: -CHOLESTYRAMINE 4 GM POWDER ONE; +CYANOCOBALAMIN (B-12) 1000 MCG/1 ML VIAL IM ONE; +CYANOCOBALAMIN (B-12) 1000 MCG/1 ML VIAL ONE; -DOBUTamine 1000MCG/ML 250 ML IV ONE; -LEVOFLOXACIN 500 MG TAB ONE; -LEVOFLOXACIN 500 MG TAB PO ONE; +MVI in SODIUM CHLORIDE 0.9% 1,000 ML IVB ONE; -MVI in SODIUM CHLORIDE 0.9% 500 ML IVB ONE; -ONDANSETRON HCL 4 MG/2 ML VIAL IV ONE; -ONDANSETRON HCL 4 MG/2 ML VIAL ONE
[2017-12-14 11:00] VITALS: BP 110/70
[2017-12-14 12:02] LABS: Basophils # (auto) 0 uL; Basophils % (auto) 0.3 % (0.0-2.0); Eosinophils # (auto) 0.1 uL; Eosinophils % (auto) 1.9 % (0.0-7.0); Hematocrit 41.1 % (41.0-53.0); Hemoglobin 13.7 g/dL (13.5-17.5); Lymphocytes # (auto) 0.4 uL; Lymphocytes % (auto) 8.5 % (10.0-50.0); Mean Corpuscular Hemoglobin 33.5 pg (28.0-32.0); Mean Corpuscular Hgb Conc. 33.5 g/dL (32.0-36.0); Mean Corpuscular Volume 100.2 fL (80.0-100.0); Monocytes # (auto) 0.7 uL; Monocytes % (auto) 16.2 % (0.0-12.0); Neutrophils # (auto) 3.1 uL; Neutrophils % (auto) 73.1 % (37.0-80.0); Nucleated Red Blood Cells % 0.1 %; Platelet Count (auto) 133 10^3/uL (140-450); Red Cell Distribution Width 13.8 % (11.8-14.3); White Blood Cell 4.3 10^3/uL (4.4-10.8)
[2017-12-14 12:13] LABS: Albumin 3.5 g/dL (3.4-5.0); BUN/Creatinine Ratio 16.4; Bilirubin, Total 0.7 mg/dL (0.2-1.0); Calcium 7.9 mg/dL (8.5-10.1); Magnesium 2.6 mg/dL (1.6-2.6); Potassium 4.3 mmol/L (3.5-5.1)
== END | disposition home or self-care (01) ==
LOC: CHF HDHVI 08:18
PROVIDERS: ATTEND Internal Medicine Cardiovascular Disease
DX: E83.42 Hypomagnesemia (principal); I10 Essential (primary) hypertension; D64.9 Anemia, unspecified; E86.0 Dehydration; R53.83 Other fatigue; J11.1 Influenza due to unidentified influenza virus with other respiratory manifestations
CPT/HCPCS: 36415; 80053; 83735; 85025; 96365; 96366; 96372; G0463; J1642

== ENCOUNTER → 2017-12-15 | Outpatient (CLI) | payer OTHER ==
[2017-12-15] VITALS (9 sets, daily range): BP systolic 87–131; BP diastolic 48–73
[~2017-12-15] VITALS: Ht 30.5 cm; Wt 91.7 kg
[~2017-12-15] MED LIST changes: -CYANOCOBALAMIN (B-12) 1000 MCG/1 ML VIAL IM ONE; -CYANOCOBALAMIN (B-12) 1000 MCG/1 ML VIAL ONE; +DOBUTamine 1000MCG/ML 250 ML IV ONE; -MVI in SODIUM CHLORIDE 0.9% 1,000 ML IVB ONE; -MVI in SODIUM CHLORIDE 0.9% 1,010 ML ONE; +TESTOSTERONE CYPIONATE 200 MG/ML 1ML VIAL IM ONE
== END | disposition home or self-care (01) ==
LOC: CHF HDHVI 07:50
PROVIDERS: ATTEND Internal Medicine Cardiovascular Disease
DX: I50.9 Heart failure, unspecified (principal); I48.91 Unspecified atrial fibrillation
CPT/HCPCS: 96365; 96366; 96372; G0463; J1071; J1250; J1642

== ENCOUNTER → 2017-12-18 | Outpatient (CLI) | payer OTHER ==
[2017-12-11 11:00] VITALS: BP 119/74
[~2017-12-18] MED LIST changes: -TESTOSTERONE CYPIONATE 200 MG/ML 1ML VIAL IM ONE
[2017-12-18 10:55] VITALS: BP 111/70
== END | disposition home or self-care (01) ==
LOC: CHF HDHVI 07:58
PROVIDERS: ATTEND Internal Medicine Cardiovascular Disease
DX: I50.9 Heart failure, unspecified (principal); I48.91 Unspecified atrial fibrillation; Z95.810 Presence of automatic (implantable) cardiac defibrillator
CPT/HCPCS: 93701; 96365; 96366; G0463; J1250; J1642

== ENCOUNTER → 2017-12-20 | Outpatient (CLI) | payer OTHER ==
[2017-12-20] VITALS (8 sets, daily range): BP systolic 103–123; BP diastolic 54–71
[2017-12-20 12:31] LABS: Potassium 4.1 mmol/L (3.5-5.1)
== END | disposition home or self-care (01) ==
LOC: CHF HDHVI 07:52
PROVIDERS: ATTEND Internal Medicine Cardiovascular Disease
DX: I11.0 Hypertensive heart disease with heart failure (principal); I50.9 Heart failure, unspecified; E87.5 Hyperkalemia; I25.10 Atherosclerotic heart disease of native coronary artery without angina pectoris; D64.9 Anemia, unspecified; R94.4 Abnormal results of kidney function studies
CPT/HCPCS: 36415; 82565; 83880; 84132; 84520; 96365; 96366; G0463; J1250; J1642

== ENCOUNTER → 2017-12-22 | Outpatient (CLI) | payer OTHER ==
[2017-12-22] VITALS (7 sets, daily range): BP systolic 95–124; BP diastolic 49–80
== END | disposition home or self-care (01) ==
LOC: CHF HDHVI 07:59
PROVIDERS: ATTEND Internal Medicine Cardiovascular Disease
DX: I11.0 Hypertensive heart disease with heart failure (principal); I50.9 Heart failure, unspecified; I48.91 Unspecified atrial fibrillation; D64.9 Anemia, unspecified
CPT/HCPCS: 96365; 96366; G0463; J1250; J1642

== ENCOUNTER → 2017-12-25 | Outpatient (CLI) | payer OTHER ==
[2017-12-25] VITALS (9 sets, daily range): BP systolic 94–109; BP diastolic 48–56
[~2017-12-25] MED LIST changes: +CYANOCOBALAMIN (B-12) 1000 MCG/1 ML VIAL IM ONE; +CYANOCOBALAMIN (B-12) 1000 MCG/1 ML VIAL ONE
== END | disposition home or self-care (01) ==
LOC: CHF HDHVI 07:48
PROVIDERS: ATTEND Internal Medicine Cardiovascular Disease
DX: I50.9 Heart failure, unspecified (principal); I48.91 Unspecified atrial fibrillation; R53.83 Other fatigue; Z95.810 Presence of automatic (implantable) cardiac defibrillator
CPT/HCPCS: 96365; 96366; 96372; G0463; J1250; J1642; J3420

== ENCOUNTER → 2017-12-29 | Outpatient (CLI) | payer OTHER ==
[~2017-12-29] VITALS: Ht 30.5 cm; Wt 91.3 kg
[~2017-12-29] MED LIST changes: -ESZO1TAB21 PO; -POT20T PO
[2017-12-29 07:50] VITALS: BP 105/65
[2017-12-29 08:00] VITALS: BP 97/53
[2017-12-29 08:15] VITALS: BP 95/50
[2017-12-29 08:30] VITALS: BP 101/52
[2017-12-29 09:00] VITALS: BP 95/49
[2017-12-29 10:55] VITALS: BP 125/72
[2017-12-29 11:59] LABS: Hematocrit 40.4 % (41.0-53.0); Hemoglobin 13.7 g/dL (13.5-17.5); Red Blood Cells 4.06 10^6/uL (4.5-5.90); White Blood Cell 3.2 10^3/uL (4.4-10.8)
[2017-12-29 12:00] LABS: Mean Corpuscular Hemoglobin 33.8 pg (28.0-32.0); Mean Corpuscular Volume 99.4 fL (80.0-100.0); Platelet Count (auto) 135 10^3/uL (140-450); Red Cell Distribution Width 13.9 % (11.8-14.3)
[2017-12-29 12:13] LABS: Band Neutrophils % (manual) 0; Basophils % (manual) 0 (0.0-2.0); Blast Cells 0; Metamyelocytes % 0; Myelocytes % 0; Promyelocytes % 0; Reactive Lymphocytes 0
[2017-12-29 12:20] LABS: BUN/Creatinine Ratio 11.2; Calcium 8.3 mg/dL (8.5-10.1); Magnesium 2.8 mg/dL (1.6-2.6); Potassium 4.3 mmol/L (3.5-5.1)
[2017-12-29 13:32] LABS: Eosinophils % (manual) 3 (0-7); Lymphocytes % (manual) 31 (10.0-50.0); Monocytes % (manual) 18 (0-12)
== END | disposition home or self-care (01) ==
LOC: CHF HDHVI 07:52
PROVIDERS: ATTEND Internal Medicine Cardiovascular Disease
DX: I11.0 Hypertensive heart disease with heart failure (principal); I50.9 Heart failure, unspecified; D64.9 Anemia, unspecified; E83.42 Hypomagnesemia; I25.10 Atherosclerotic heart disease of native coronary artery without angina pectoris
CPT/HCPCS: 36415; 80048; 83735; 83880; 85007; 85027; 96365; 96366; 96372; G0463; J1250; J1642; J3420

== ENCOUNTER → 2018-01-01 | Outpatient (CLI) | payer OTHER ==
[2017-12-29 07:40] VITALS: BP 100/62
[2018-01-01] VITALS (8 sets, daily range): BP systolic 94–119; BP diastolic 50–65
[~2018-01-01] MED LIST changes: -CYANOCOBALAMIN (B-12) 1000 MCG/1 ML VIAL IM ONE; -CYANOCOBALAMIN (B-12) 1000 MCG/1 ML VIAL ONE
== END | disposition home or self-care (01) ==
LOC: CHF HDHVI 07:59
PROVIDERS: ATTEND Internal Medicine Cardiovascular Disease
DX: I50.9 Heart failure, unspecified (principal); I48.91 Unspecified atrial fibrillation; Z95.810 Presence of automatic (implantable) cardiac defibrillator
CPT/HCPCS: 96365; 96366; G0463; J1250; J1642

== ENCOUNTER → 2018-01-03 | Outpatient (CLI) | payer OTHER ==
[2018-01-03 08:00] VITALS: BP 114/60
[2018-01-03 12:21] LABS: Basophils # (auto) 0 uL; Basophils % (auto) 0.4 % (0.0-2.0); Eosinophils # (auto) 0.1 uL; Hematocrit 43.5 % (41.0-53.0); Hemoglobin 14.4 g/dL (13.5-17.5); Lymphocytes # (auto) 1.1 uL; Lymphocytes % (auto) 27.4 % (10.0-50.0); Mean Corpuscular Hemoglobin 33.1 pg (28.0-32.0); Mean Corpuscular Hgb Conc. 33.2 g/dL (32.0-36.0); Mean Corpuscular Volume 99.7 fL (80.0-100.0); Monocytes # (auto) 0.7 uL; Monocytes % (auto) 17.2 % (0.0-12.0); Neutrophils # (auto) 2.2 uL; Nucleated Red Blood Cells % 0.1 %; Platelet Count (auto) 195 10^3/uL (140-450); Red Blood Cells 4.36 10^6/uL (4.5-5.90); Red Cell Distribution Width 14.1 % (11.8-14.3); White Blood Cell 4.1 10^3/uL (4.4-10.8)
[2018-01-03 12:48] LABS: BUN/Creatinine Ratio 11.5; Calcium 8.7 mg/dL (8.5-10.1); Potassium 3.9 mmol/L (3.5-5.1)
[2018-01-03 15:42] VITALS: BP 108/69
== END | disposition home or self-care (01) ==
LOC: CHF HDHVI 07:55
PROVIDERS: ATTEND Internal Medicine Cardiovascular Disease
DX: I11.0 Hypertensive heart disease with heart failure (principal); I50.9 Heart failure, unspecified; D64.9 Anemia, unspecified; I25.10 Atherosclerotic heart disease of native coronary artery without angina pectoris
CPT/HCPCS: 36415; 80048; 83880; 85025; 96365; 96366; G0463; J1250; J1642

== ENCOUNTER → 2018-01-05 | Outpatient (CLI) | payer OTHER ==
[2018-01-05] VITALS (7 sets, daily range): BP systolic 88–124; BP diastolic 51–76
[~2018-01-05] VITALS: Ht 30.5 cm; Wt 89.4 kg
[~2018-01-05] MED LIST changes: +ESZO1TAB21 PO; +POT20T PO
[2018-01-12 08:51] VITALS: BP 117/64
== END ==
LOC: CHF HDHVI 07:30
PROVIDERS: ATTEND Internal Medicine Cardiovascular Disease
DX: I25.5 Ischemic cardiomyopathy (principal); I48.1 Persistent atrial fibrillation; I25.10 Atherosclerotic heart disease of native coronary artery without angina pectoris; I50.9 Heart failure, unspecified
CPT/HCPCS: 93306; 96365; 96366; G0463; J1250; J1642

== ENCOUNTER → 2018-01-08 | Outpatient (CLI) | payer OTHER ==
[2018-01-08] VITALS (7 sets, daily range): BP systolic 88–113; BP diastolic 50–63
[~2018-01-08] MED LIST changes: -ESZO1TAB21 PO; -POT20T PO
== END | disposition home or self-care (01) ==
LOC: CHF HDHVI 08:05
PROVIDERS: ATTEND Internal Medicine Cardiovascular Disease
DX: I50.9 Heart failure, unspecified (principal); D64.9 Anemia, unspecified; I48.91 Unspecified atrial fibrillation
CPT/HCPCS: 96365; 96366; G0463; J1250; J1642

== ENCOUNTER → 2018-01-10 | Outpatient (CLI) | payer OTHER ==
[~2018-01-10] VITALS: Ht 180.3 cm; Wt 88.9 kg
[2018-01-10] VITALS (8 sets, daily range): BP systolic 96–127; BP diastolic 48–73
[2018-01-10 12:21] LABS: Hematocrit 42.9 % (41.0-53.0); Hemoglobin 14.4 g/dL (13.5-17.5); Mean Corpuscular Hemoglobin 33.3 pg (28.0-32.0); Mean Corpuscular Hgb Conc. 33.6 g/dL (32.0-36.0); Platelet Count (auto) 217 10^3/uL (140-450); Red Blood Cells 4.33 10^6/uL (4.5-5.90); Red Cell Distribution Width 14.1 % (11.8-14.3); White Blood Cell 3.1 10^3/uL (4.4-10.8)
[2018-01-10 12:29] LABS: Band Neutrophils % (manual) 0; Basophils % (manual) 0 (0.0-2.0)
[2018-01-10 12:30] LABS: Blast Cells 0; Metamyelocytes % 0; Myelocytes % 0; Promyelocytes % 0; Reactive Lymphocytes 0
[2018-01-10 13:00] LABS: Albumin 3.6 g/dL (3.4-5.0); Calcium 8.6 mg/dL (8.5-10.1); Magnesium 2.5 mg/dL (1.6-2.6); Potassium 4.2 mmol/L (3.5-5.1)
[2018-01-10 13:02] LABS: BUN/Creatinine Ratio 15.5; Eosinophils % (manual) 3 (0-7); Lymphocytes % (manual) 34 (10.0-50.0); Monocytes % (manual) 17 (0-12)
[2018-01-10 13:05] LABS: Bilirubin, Total 0.9 mg/dL (0.2-1.0); Total Protein 7.3 g/dL (6.4-8.2)
== END | disposition home or self-care (01) ==
LOC: CHF HDHVI 07:57
PROVIDERS: ATTEND Internal Medicine Cardiovascular Disease
DX: I11.0 Hypertensive heart disease with heart failure (principal); E83.42 Hypomagnesemia; I50.23 Acute on chronic systolic (congestive) heart failure; D64.9 Anemia, unspecified; I25.10 Atherosclerotic heart disease of native coronary artery without angina pectoris; I48.1 Persistent atrial fibrillation; Z95.1 Presence of aortocoronary bypass graft; Z95.0 Presence of cardiac pacemaker
CPT/HCPCS: 36415; 78452; 80053; 83735; 83880; 85007; 85027; 93017; 96365; 96366; 96375; A9500; G0463; J1250; J1642; 96374

== ENCOUNTER → 2018-01-12 | Outpatient (CLI) | payer OTHER ==
[2018-01-12] VITALS (9 sets, daily range): BP systolic 98–127; BP diastolic 53–70
[~2018-01-12] MED LIST changes: +CYANOCOBALAMIN (B-12) 1000 MCG/1 ML VIAL IM ONE; +CYANOCOBALAMIN (B-12) 1000 MCG/1 ML VIAL ONE; +TESTOSTERONE CYPIONATE 200 MG/ML 1ML VIAL IM ONE
== END | disposition home or self-care (01) ==
LOC: CHF HDHVI 07:55
PROVIDERS: ATTEND Internal Medicine Cardiovascular Disease
DX: I50.9 Heart failure, unspecified (principal); I48.91 Unspecified atrial fibrillation; D64.9 Anemia, unspecified; E29.1 Testicular hypofunction; R53.1 Weakness
CPT/HCPCS: 96365; 96366; 96372; G0463; J1071; J1250; J1642; J3420

== ENCOUNTER → 2018-01-15 | Outpatient (CLI) | payer OTHER ==
[2018-01-15] VITALS (8 sets, daily range): BP systolic 100–123; BP diastolic 52–74
[~2018-01-15] MED LIST changes: -CYANOCOBALAMIN (B-12) 1000 MCG/1 ML VIAL IM ONE; -CYANOCOBALAMIN (B-12) 1000 MCG/1 ML VIAL ONE; -TESTOSTERONE CYPIONATE 200 MG/ML 1ML VIAL IM ONE
== END | disposition home or self-care (01) ==
LOC: CHF HDHVI 07:52
PROVIDERS: ATTEND Internal Medicine Cardiovascular Disease
DX: I50.9 Heart failure, unspecified (principal); I48.91 Unspecified atrial fibrillation; Z95.810 Presence of automatic (implantable) cardiac defibrillator
CPT/HCPCS: 96365; 96366; G0463; J1250; J1642

== ENCOUNTER → 2018-01-17 | Outpatient (CLI) | payer OTHER ==
[2018-01-17] VITALS (9 sets, daily range): BP systolic 99–123; BP diastolic 56–75
[~2018-01-17] VITALS: Ht 30.5 cm; Wt 90.7 kg
[2018-01-17 12:32] LABS: BUN/Creatinine Ratio 14.3; Calcium 8.2 mg/dL (8.5-10.1); Potassium 4.3 mmol/L (3.5-5.1)
== END | disposition home or self-care (01) ==
LOC: CHF HDHVI 07:59
PROVIDERS: ATTEND Internal Medicine Cardiovascular Disease
DX: I11.0 Hypertensive heart disease with heart failure (principal); I50.9 Heart failure, unspecified; I48.91 Unspecified atrial fibrillation; R53.83 Other fatigue; Z95.810 Presence of automatic (implantable) cardiac defibrillator
CPT/HCPCS: 36415; 80048; 83880; 93701; 96365; 96366; G0463; J1250; J1642

== ENCOUNTER → 2018-01-19 | Outpatient (CLI) | payer OTHER ==
[~2018-01-19] VITALS: Ht 30.5 cm; Wt 90.7 kg
[2018-01-19] VITALS (8 sets, daily range): BP systolic 91–122; BP diastolic 52–72
== END | disposition home or self-care (01) ==
LOC: CHF HDHVI 07:55
PROVIDERS: ATTEND Internal Medicine Cardiovascular Disease
DX: I50.9 Heart failure, unspecified (principal); D64.9 Anemia, unspecified; I48.91 Unspecified atrial fibrillation
CPT/HCPCS: 96365; 96366; G0463; J1250; J1642

== ENCOUNTER → 2018-01-22 | Outpatient (CLI) | payer OTHER ==
[2018-01-22] VITALS (9 sets, daily range): BP systolic 101–129; BP diastolic 61–85
== END | disposition home or self-care (01) ==
LOC: CHF HDHVI 07:51
PROVIDERS: ATTEND Internal Medicine Cardiovascular Disease
DX: I50.9 Heart failure, unspecified (principal); I48.91 Unspecified atrial fibrillation; Z95.810 Presence of automatic (implantable) cardiac defibrillator
CPT/HCPCS: 96365; 96366; G0463; J1250; J1642

== ENCOUNTER → 2018-01-24 | Outpatient (CLI) | payer OTHER ==
[2018-01-24] VITALS (7 sets, daily range): BP systolic 95–119; BP diastolic 45–76
== END | disposition home or self-care (01) ==
LOC: CHF HDHVI 08:11
PROVIDERS: ATTEND Internal Medicine Cardiovascular Disease
DX: I50.9 Heart failure, unspecified (principal); I48.91 Unspecified atrial fibrillation; Z95.810 Presence of automatic (implantable) cardiac defibrillator
CPT/HCPCS: 96365; 96366; G0463; J1250; J1642

== ENCOUNTER → 2018-01-26 | Outpatient (CLI) | payer OTHER ==
[2018-01-26 07:50] VITALS: BP 118/74
[2018-01-26 08:00] VITALS: BP 113/65
[2018-01-26 08:15] VITALS: BP 103/54
[2018-01-26 08:30] VITALS: BP 100/50
[2018-01-26 08:45] VITALS: BP 98/53
[2018-01-26 11:00] VITALS: BP 118/91
== END | disposition home or self-care (01) ==
LOC: CHF HDHVI 07:57
PROVIDERS: ATTEND Internal Medicine Cardiovascular Disease
DX: I50.9 Heart failure, unspecified (principal); I48.91 Unspecified atrial fibrillation; Z95.810 Presence of automatic (implantable) cardiac defibrillator
CPT/HCPCS: 96365; 96366; G0463; J1250; J1642

== ENCOUNTER → 2018-01-29 | Outpatient (CLI) | payer OTHER ==
[2018-01-29] VITALS (9 sets, daily range): BP systolic 102–123; BP diastolic 61–73
== END | disposition home or self-care (01) ==
LOC: CHF HDHVI 08:23
PROVIDERS: ATTEND Internal Medicine Cardiovascular Disease
DX: I50.9 Heart failure, unspecified (principal); I48.91 Unspecified atrial fibrillation; Z95.810 Presence of automatic (implantable) cardiac defibrillator
CPT/HCPCS: 96365; 96366; G0463; J1250; J1642

== ENCOUNTER → 2018-01-31 | Outpatient (CLI) | payer OTHER ==
[2018-01-31 07:50] VITALS: BP 111/71
[2018-01-31 08:05] VITALS: BP 108/66
[2018-01-31 08:20] VITALS: BP 108/55
[2018-01-31 08:35] VITALS: BP 95/57
[2018-01-31 11:00] VITALS: BP 114/67
[2018-01-31 12:12] LABS: Calcium 9.1 mg/dL (8.5-10.1); Hematocrit 45.8 % (41.0-53.0); Hemoglobin 15.3 g/dL (13.5-17.5); Magnesium 2.7 mg/dL (1.6-2.6); Mean Corpuscular Hemoglobin 33.5 pg (28.0-32.0); Mean Corpuscular Hgb Conc. 33.4 g/dL (32.0-36.0); Mean Corpuscular Volume 100.2 fL (80.0-100.0); Platelet Count (auto) 134 10^3/uL (140-450); Red Blood Cells 4.57 10^6/uL (4.5-5.90); Red Cell Distribution Width 14.9 % (11.8-14.3); White Blood Cell 4.2 10^3/uL (4.4-10.8)
[2018-01-31 12:22] LABS: Band Neutrophils % (manual) 0; Basophils % (manual) 0 (0.0-2.0)
[2018-01-31 12:23] LABS: Blast Cells 0; Metamyelocytes % 0; Myelocytes % 0; Promyelocytes % 0; Reactive Lymphocytes 0
[2018-01-31 15:04] LABS: Eosinophils % (manual) 4 (0-7); Lymphocytes % (manual) 43 (10.0-50.0); Monocytes % (manual) 12 (0-12)
== END | disposition home or self-care (01) ==
LOC: CHF HDHVI 07:47
PROVIDERS: ATTEND Internal Medicine Cardiovascular Disease
DX: I11.0 Hypertensive heart disease with heart failure (principal); I50.9 Heart failure, unspecified; E83.40 Disorders of magnesium metabolism, unspecified; D64.9 Anemia, unspecified
CPT/HCPCS: 36415; 80048; 83735; 83880; 85007; 85027; J1250; J1642; 96365; 96366; G0463

== ENCOUNTER → 2018-02-02 | Outpatient (CLI) | payer OTHER ==
[2018-02-02 07:50] VITALS: BP 99/60
[2018-02-02 08:00] VITALS: BP 92/47
[2018-02-02 08:15] VITALS: BP 94/48
[2018-02-02 08:30] VITALS: BP 120/46
[2018-02-02 09:00] VITALS: BP 91/53
[2018-02-02 11:05] VITALS: BP 124/75
== END | disposition home or self-care (01) ==
LOC: CHF HDHVI 08:01
PROVIDERS: ATTEND Internal Medicine Cardiovascular Disease
DX: I50.9 Heart failure, unspecified (principal); D64.9 Anemia, unspecified; I48.91 Unspecified atrial fibrillation; E29.1 Testicular hypofunction
CPT/HCPCS: 96365; 96366; G0463; J1250; J1642

== ENCOUNTER → 2018-02-05 | Outpatient (CLI) | payer OTHER ==
[~2018-02-05] VITALS: Ht 30.5 cm; Wt 89.8 kg
[2018-02-05] VITALS (7 sets, daily range): BP systolic 102–125; BP diastolic 57–77
== END | disposition home or self-care (01) ==
LOC: CHF HDHVI 08:07
PROVIDERS: ATTEND Internal Medicine Cardiovascular Disease
DX: I50.9 Heart failure, unspecified (principal); I25.10 Atherosclerotic heart disease of native coronary artery without angina pectoris
CPT/HCPCS: 96365; 96366; G0463; J1250; J1642

== ENCOUNTER → 2018-02-07 | Outpatient (CLI) | payer OTHER ==
[2018-02-07] VITALS (9 sets, daily range): BP systolic 99–120; BP diastolic 53–76
[~2018-02-07] VITALS: Ht 30.5 cm; Wt 90.0 kg
[~2018-02-07] MED LIST changes: +CATHFLO ACTIVASE (ALTEPLASE) 2 MG VIAL IV ONE
[2018-02-07 12:05] LABS: White Blood Cell 2.9 10^3/uL (4.4-10.8)
[2018-02-07 12:09] LABS: Hematocrit 42.7 % (41.0-53.0); Hemoglobin 14.7 g/dL (13.5-17.5); Mean Corpuscular Hemoglobin 34.2 pg (28.0-32.0); Mean Corpuscular Hgb Conc. 34.5 g/dL (32.0-36.0); Mean Corpuscular Volume 99.2 fL (80.0-100.0); Platelet Count (auto) 144 10^3/uL (140-450); Red Cell Distribution Width 14.3 % (11.8-14.3)
[2018-02-07 12:23] LABS: Band Neutrophils % (manual) 0; Basophils % (manual) 0 (0.0-2.0); Metamyelocytes % 0
[2018-02-07 12:24] LABS: Blast Cells 0; Myelocytes % 0; Promyelocytes % 0; Reactive Lymphocytes 0
[2018-02-07 12:25] LABS: BUN/Creatinine Ratio 20.6; Calcium 8.4 mg/dL (8.5-10.1); Potassium 4.2 mmol/L (3.5-5.1)
[2018-02-07 14:18] LABS: Eosinophils % (manual) 7 (0-7); Lymphocytes % (manual) 32 (10.0-50.0); Monocytes % (manual) 17 (0-12)
== END | disposition home or self-care (01) ==
LOC: CHF HDHVI 07:51
PROVIDERS: ATTEND Internal Medicine Cardiovascular Disease
DX: I11.0 Hypertensive heart disease with heart failure (principal); I50.9 Heart failure, unspecified; D64.9 Anemia, unspecified; I25.10 Atherosclerotic heart disease of native coronary artery without angina pectoris
CPT/HCPCS: 36415; 80048; 83880; 85007; 85027; 96365; 96366; 96375; G0463; J1250; J1642; J2997

== ENCOUNTER → 2018-02-09 | Outpatient (CLI) | payer OTHER ==
[2018-02-09] VITALS (9 sets, daily range): BP systolic 104–120; BP diastolic 57–77
[~2018-02-09] MED LIST changes: -CATHFLO ACTIVASE (ALTEPLASE) 2 MG VIAL IV ONE
== END | disposition home or self-care (01) ==
LOC: CHF HDHVI 07:56
PROVIDERS: ATTEND Internal Medicine Cardiovascular Disease
DX: I50.9 Heart failure, unspecified (principal); I48.91 Unspecified atrial fibrillation; Z95.810 Presence of automatic (implantable) cardiac defibrillator
CPT/HCPCS: 96365; 96366; G0463; J1250; J1642

== ENCOUNTER → 2018-02-12 | Outpatient (CLI) | payer OTHER ==
[2018-02-12] VITALS (9 sets, daily range): BP systolic 103–120; BP diastolic 55–76
== END | disposition home or self-care (01) ==
LOC: CHF HDHVI 07:49
PROVIDERS: ATTEND Internal Medicine Cardiovascular Disease
DX: I50.9 Heart failure, unspecified (principal); I48.91 Unspecified atrial fibrillation; I25.10 Atherosclerotic heart disease of native coronary artery without angina pectoris; Z95.810 Presence of automatic (implantable) cardiac defibrillator
CPT/HCPCS: 93701; 96365; 96366; G0463; J1250; J1642

== ENCOUNTER → 2018-02-14 | Outpatient (CLI) | payer OTHER ==
[2018-02-14] VITALS (7 sets, daily range): BP systolic 97–120; BP diastolic 52–78
[2018-02-14 12:43] LABS: Potassium 4.3 mmol/L (3.5-5.1)
== END | disposition home or self-care (01) ==
LOC: CHF HDHVI 07:55
PROVIDERS: ATTEND Internal Medicine Cardiovascular Disease
DX: I50.23 Acute on chronic systolic (congestive) heart failure (principal); E87.6 Hypokalemia; I48.91 Unspecified atrial fibrillation; I25.10 Atherosclerotic heart disease of native coronary artery without angina pectoris; R94.4 Abnormal results of kidney function studies; Z95.810 Presence of automatic (implantable) cardiac defibrillator
CPT/HCPCS: 36415; 82565; 83880; 84132; 84520; 96365; 96366; G0463; J1250; J1642

== ENCOUNTER → 2018-02-16 | Outpatient (CLI) | payer OTHER ==
[2018-02-16 07:50] VITALS: BP 121/85
[2018-02-16 08:00] VITALS: BP 119/73
[2018-02-16 08:15] VITALS: BP 108/62
[2018-02-16 08:30] VITALS: BP 106/63
[2018-02-16 08:45] VITALS: BP 105/62
[2018-02-16 11:00] VITALS: BP 123/78
== END | disposition home or self-care (01) ==
LOC: CHF HDHVI 07:59
PROVIDERS: ATTEND Internal Medicine Cardiovascular Disease
DX: I50.9 Heart failure, unspecified (principal); I25.10 Atherosclerotic heart disease of native coronary artery without angina pectoris
CPT/HCPCS: 96365; 96366; G0463; J1250; J1642

== ENCOUNTER → 2018-02-19 | Outpatient (CLI) | payer OTHER ==
[2018-02-19] VITALS (9 sets, daily range): BP systolic 97–148; BP diastolic 54–84
== END | disposition home or self-care (01) ==
LOC: CHF HDHVI 08:02
PROVIDERS: ATTEND Internal Medicine Cardiovascular Disease
DX: I50.9 Heart failure, unspecified (principal); I48.91 Unspecified atrial fibrillation; Z95.810 Presence of automatic (implantable) cardiac defibrillator
CPT/HCPCS: 96365; 96366; G0463; J1250; J1642

== ENCOUNTER → 2018-02-21 | Outpatient (CLI) | payer OTHER ==
[2018-02-21] VITALS (9 sets, daily range): BP systolic 94–123; BP diastolic 51–76
[2018-02-21 12:28] LABS: Basophils # (auto) 0 uL; Basophils % (auto) 0.5 % (0.0-2.0); Eosinophils # (auto) 0.1 uL; Eosinophils % (auto) 3.7 % (0.0-7.0); Hematocrit 45.7 % (41.0-53.0); Hemoglobin 15.4 g/dL (13.5-17.5); Lymphocytes # (auto) 1.1 uL; Lymphocytes % (auto) 34.7 % (10.0-50.0); Mean Corpuscular Hemoglobin 33.5 pg (28.0-32.0); Mean Corpuscular Hgb Conc. 33.7 g/dL (32.0-36.0); Mean Corpuscular Volume 99.6 fL (80.0-100.0); Monocytes # (auto) 0.5 uL; Monocytes % (auto) 15.3 % (0.0-12.0); Neutrophils # (auto) 1.4 uL; Neutrophils % (auto) 45.8 % (37.0-80.0); Nucleated Red Blood Cells % 0.1 %; Platelet Count (auto) 160 10^3/uL (140-450); Red Blood Cells 4.59 10^6/uL (4.5-5.90); Red Cell Distribution Width 13.6 % (11.8-14.3)
[2018-02-21 12:46] LABS: Albumin 3.8 g/dL (3.4-5.0); BUN/Creatinine Ratio 12.5; Bilirubin, Direct 0.2 mg/dL (0-0.2); Bilirubin, Total 0.9 mg/dL (0.2-1.0); Calcium 8.4 mg/dL (8.5-10.1); Magnesium 2.5 mg/dL (1.6-2.6); Potassium 4.2 mmol/L (3.5-5.1); Total Protein 7.5 g/dL (6.4-8.2)
== END | disposition home or self-care (01) ==
LOC: CHF HDHVI 08:05
PROVIDERS: ATTEND Internal Medicine Cardiovascular Disease
DX: I50.23 Acute on chronic systolic (congestive) heart failure (principal); E78.5 Hyperlipidemia, unspecified; D64.9 Anemia, unspecified; I10 Essential (primary) hypertension; E03.9 Hypothyroidism, unspecified; E55.9 Vitamin D deficiency, unspecified; R53.81 Other malaise; R97.20 Elevated prostate specific antigen [PSA]; K74.1 Hepatic sclerosis; E11.9 Type 2 diabetes mellitus without complications; I25.10 Atherosclerotic heart disease of native coronary artery without angina pectoris; I42.9 Cardiomyopathy, unspecified
CPT/HCPCS: 36415; 80048; 80061; 80076; 82306; 83036; 83735; 83880; 84153; 84154; 84403; 84443; 85025; 96365; 96366; G0463; J1250; J1642

== ENCOUNTER → 2018-02-23 | Outpatient (CLI) | payer OTHER ==
[2018-02-23 11:15] VITALS: BP 114/72
== END | disposition home or self-care (01) ==
LOC: CHF HDHVI 07:41
PROVIDERS: ATTEND Internal Medicine Cardiovascular Disease
DX: I11.0 Hypertensive heart disease with heart failure (principal); I50.23 Acute on chronic systolic (congestive) heart failure; I48.91 Unspecified atrial fibrillation; E11.9 Type 2 diabetes mellitus without complications; E78.5 Hyperlipidemia, unspecified; E03.9 Hypothyroidism, unspecified; E55.9 Vitamin D deficiency, unspecified; Z95.810 Presence of automatic (implantable) cardiac defibrillator
CPT/HCPCS: J1250; J1642; 96365; 96366; G0463

== ENCOUNTER → 2018-02-26 | Outpatient (CLI) | payer OTHER ==
[2018-02-26] VITALS (9 sets, daily range): BP systolic 88–116; BP diastolic 49–66
[~2018-02-26] MED LIST changes: +CYANOCOBALAMIN (B-12) 1000 MCG/1 ML VIAL IM ONE; +CYANOCOBALAMIN (B-12) 1000 MCG/1 ML VIAL ONE
== END | disposition home or self-care (01) ==
LOC: CHF HDHVI 07:58
PROVIDERS: ATTEND Internal Medicine Cardiovascular Disease
DX: I50.9 Heart failure, unspecified (principal); I42.9 Cardiomyopathy, unspecified
CPT/HCPCS: 96365; 96366; 96372; G0463; J1250; J1642; J3420

== ENCOUNTER → 2018-02-28 | Outpatient (CLI) | payer OTHER ==
[2018-02-28] VITALS (10 sets, daily range): BP systolic 94–134; BP diastolic 51–78
[~2018-02-28] MED LIST changes: -CYANOCOBALAMIN (B-12) 1000 MCG/1 ML VIAL IM ONE; -CYANOCOBALAMIN (B-12) 1000 MCG/1 ML VIAL ONE
[2018-02-28 12:02] LABS: Basophils # (auto) 0 uL; Basophils % (auto) 0.8 % (0.0-2.0); Eosinophils # (auto) 0.3 uL; Eosinophils % (auto) 7.2 % (0.0-7.0); Hemoglobin 15.2 g/dL (13.5-17.5); Lymphocytes # (auto) 1.5 uL; Lymphocytes % (auto) 41.6 % (10.0-50.0); Mean Corpuscular Hemoglobin 33.7 pg (28.0-32.0); Mean Corpuscular Hgb Conc. 33.8 g/dL (32.0-36.0); Mean Corpuscular Volume 99.7 fL (80.0-100.0); Monocytes # (auto) 0.6 uL; Monocytes % (auto) 15.5 % (0.0-12.0); Neutrophils # (auto) 1.3 uL; Neutrophils % (auto) 34.9 % (37.0-80.0); Nucleated Red Blood Cells % 0.5 %; Platelet Count (auto) 165 10^3/uL (140-450); Red Blood Cells 4.52 10^6/uL (4.5-5.90); Red Cell Distribution Width 13.7 % (11.8-14.3); White Blood Cell 3.7 10^3/uL (4.4-10.8)
[2018-02-28 12:22] LABS: BUN/Creatinine Ratio 14.1; Calcium 8.4 mg/dL (8.5-10.1); Potassium 4.3 mmol/L (3.5-5.1)
== END | disposition home or self-care (01) ==
LOC: CHF HDHVI 08:11
PROVIDERS: ATTEND Internal Medicine Cardiovascular Disease
DX: I50.23 Acute on chronic systolic (congestive) heart failure (principal); D64.9 Anemia, unspecified; I25.10 Atherosclerotic heart disease of native coronary artery without angina pectoris
CPT/HCPCS: 36415; 80048; 83880; 85025; 96365; 96366; G0463; J1250; J1642

== ENCOUNTER → 2018-03-02 | Outpatient (CLI) | payer OTHER ==
[2018-03-02 10:45] VITALS: BP 114/64
== END | disposition home or self-care (01) ==
LOC: CHF HDHVI 08:07
PROVIDERS: ATTEND Internal Medicine Cardiovascular Disease
DX: I11.0 Hypertensive heart disease with heart failure (principal); I50.22 Chronic systolic (congestive) heart failure; D64.9 Anemia, unspecified; I42.9 Cardiomyopathy, unspecified; E78.5 Hyperlipidemia, unspecified; E03.9 Hypothyroidism, unspecified; E55.9 Vitamin D deficiency, unspecified
CPT/HCPCS: 96365; 96366; G0463; J1250; J1642

== ENCOUNTER → 2018-03-05 | Outpatient (CLI) | payer OTHER ==
[2018-03-05] VITALS (10 sets, daily range): BP systolic 94–120; BP diastolic 52–69
== END | disposition home or self-care (01) ==
LOC: CHF HDHVI 07:50
PROVIDERS: ATTEND Internal Medicine Cardiovascular Disease
DX: I11.0 Hypertensive heart disease with heart failure (principal); I50.23 Acute on chronic systolic (congestive) heart failure; D64.9 Anemia, unspecified; I48.91 Unspecified atrial fibrillation; E78.00 Pure hypercholesterolemia, unspecified; E11.9 Type 2 diabetes mellitus without complications; E55.9 Vitamin D deficiency, unspecified; E78.5 Hyperlipidemia, unspecified
CPT/HCPCS: 96365; 96366; G0463; J1250; J1642

== ENCOUNTER → 2018-03-07 | Outpatient (CLI) | payer OTHER ==
[2018-03-07] VITALS (9 sets, daily range): BP systolic 100–126; BP diastolic 56–74
[2018-03-07 12:08] LABS: Basophils # (auto) 0 uL; Basophils % (auto) 0.6 % (0.0-2.0); Eosinophils # (auto) 0.1 uL; Hematocrit 44.2 % (41.0-53.0); Hemoglobin 15.1 g/dL (13.5-17.5); Lymphocytes # (auto) 1.3 uL; Lymphocytes % (auto) 39.6 % (10.0-50.0); Mean Corpuscular Hemoglobin 33.9 pg (28.0-32.0); Mean Corpuscular Hgb Conc. 34.2 g/dL (32.0-36.0); Mean Corpuscular Volume 99.1 fL (80.0-100.0); Monocytes # (auto) 0.6 uL; Monocytes % (auto) 17.9 % (0.0-12.0); Neutrophils # (auto) 1.2 uL; Neutrophils % (auto) 37.9 % (37.0-80.0); Nucleated Red Blood Cells % 0.4 %; Platelet Count (auto) 125 10^3/uL (140-450); Red Blood Cells 4.46 10^6/uL (4.5-5.90); Red Cell Distribution Width 13.3 % (11.8-14.3); White Blood Cell 3.2 10^3/uL (4.4-10.8)
[2018-03-07 12:26] LABS: BUN/Creatinine Ratio 12.2; Calcium 8.8 mg/dL (8.5-10.1); Potassium 4.1 mmol/L (3.5-5.1)
== END | disposition home or self-care (01) ==
LOC: CHF HDHVI 07:54
PROVIDERS: ATTEND Internal Medicine Cardiovascular Disease
DX: I11.0 Hypertensive heart disease with heart failure (principal); I50.23 Acute on chronic systolic (congestive) heart failure; E78.5 Hyperlipidemia, unspecified; E55.9 Vitamin D deficiency, unspecified; I25.10 Atherosclerotic heart disease of native coronary artery without angina pectoris; E11.9 Type 2 diabetes mellitus without complications
CPT/HCPCS: 36415; 80048; 83880; 85025; 96365; 96366; G0463; J1250; J1642

== ENCOUNTER → 2018-03-09 | Outpatient (CLI) | payer OTHER ==
[~2018-03-09] VITALS: Ht 30.5 cm; Wt 89.5 kg
[2018-03-09] VITALS (10 sets, daily range): BP systolic 84–124; BP diastolic 43–67
== END | disposition home or self-care (01) ==
LOC: CHF HDHVI 07:57
PROVIDERS: ATTEND Internal Medicine Cardiovascular Disease
DX: I11.0 Hypertensive heart disease with heart failure (principal); I50.23 Acute on chronic systolic (congestive) heart failure; E78.5 Hyperlipidemia, unspecified; E55.9 Vitamin D deficiency, unspecified; E11.9 Type 2 diabetes mellitus without complications; E03.9 Hypothyroidism, unspecified
CPT/HCPCS: 96365; 96366; G0463; J1250; J1642

== ENCOUNTER → 2018-03-12 | Outpatient (CLI) | payer OTHER ==
[2018-03-12] VITALS (9 sets, daily range): BP systolic 105–116; BP diastolic 48–78
== END | disposition home or self-care (01) ==
LOC: CHF HDHVI 08:01
PROVIDERS: ATTEND Internal Medicine Cardiovascular Disease
DX: I11.0 Hypertensive heart disease with heart failure (principal); I50.23 Acute on chronic systolic (congestive) heart failure; E03.9 Hypothyroidism, unspecified; E78.5 Hyperlipidemia, unspecified; I25.10 Atherosclerotic heart disease of native coronary artery without angina pectoris; E55.9 Vitamin D deficiency, unspecified
CPT/HCPCS: 96365; 96366; G0463; J1250; J1642

== ENCOUNTER → 2018-03-14 | Outpatient (CLI) | payer OTHER ==
[2018-03-14] VITALS (7 sets, daily range): BP systolic 100–116; BP diastolic 47–68
[2018-03-14 12:42] LABS: BUN/Creatinine Ratio 17.2; Calcium 8.6 mg/dL (8.5-10.1); Potassium 4.1 mmol/L (3.5-5.1)
== END | disposition home or self-care (01) ==
LOC: CHF HDHVI 07:53
PROVIDERS: ATTEND Internal Medicine Cardiovascular Disease
DX: I11.0 Hypertensive heart disease with heart failure (principal); I50.23 Acute on chronic systolic (congestive) heart failure; E03.9 Hypothyroidism, unspecified; E55.9 Vitamin D deficiency, unspecified; E11.9 Type 2 diabetes mellitus without complications; E78.00 Pure hypercholesterolemia, unspecified
CPT/HCPCS: 36415; 80048; 83880; 96365; 96366; G0463; J1642

== ENCOUNTER → 2018-03-16 | Outpatient (CLI) | payer OTHER ==
[~2018-03-16] VITALS: Ht 30.5 cm; Wt 89.5 kg
[2018-03-16] VITALS (10 sets, daily range): BP systolic 104–132; BP diastolic 52–81
== END | disposition home or self-care (01) ==
LOC: CHF HDHVI 07:59
PROVIDERS: ATTEND Internal Medicine Cardiovascular Disease
DX: I11.0 Hypertensive heart disease with heart failure (principal); I50.23 Acute on chronic systolic (congestive) heart failure; E11.9 Type 2 diabetes mellitus without complications; I48.91 Unspecified atrial fibrillation; D64.9 Anemia, unspecified; I25.10 Atherosclerotic heart disease of native coronary artery without angina pectoris; E78.5 Hyperlipidemia, unspecified; E03.9 Hypothyroidism, unspecified; E78.00 Pure hypercholesterolemia, unspecified
CPT/HCPCS: 96365; 96366; G0463; J1250; J1642

== ENCOUNTER → 2018-03-19 | Outpatient (CLI) | payer OTHER ==
[2018-03-19] VITALS (8 sets, daily range): BP systolic 102–135; BP diastolic 42–94
== END | disposition home or self-care (01) ==
LOC: CHF HDHVI 08:20
PROVIDERS: ATTEND Internal Medicine Cardiovascular Disease
DX: I11.0 Hypertensive heart disease with heart failure (principal); I50.23 Acute on chronic systolic (congestive) heart failure; I25.10 Atherosclerotic heart disease of native coronary artery without angina pectoris; D64.9 Anemia, unspecified; E03.9 Hypothyroidism, unspecified; I42.9 Cardiomyopathy, unspecified; E11.9 Type 2 diabetes mellitus without complications; E78.00 Pure hypercholesterolemia, unspecified; E55.9 Vitamin D deficiency, unspecified
CPT/HCPCS: 96365; 96366; G0463; J1250; J1642

== ENCOUNTER → 2018-03-21 | Outpatient (CLI) | payer OTHER ==
[2018-03-21 08:00] VITALS: BP 117/71
[2018-03-21 08:15] VITALS: BP 127/65
[2018-03-21 08:30] VITALS: BP 105/64
[2018-03-21 08:45] VITALS: BP 106/46
[2018-03-21 09:00] VITALS: BP 95/47
[2018-03-21 11:06] VITALS: BP 122/69
[2018-03-21 12:19] LABS: Basophils # (auto) 0 uL; Basophils % (auto) 0.6 % (0.0-2.0); Eosinophils # (auto) 0.1 uL; Eosinophils % (auto) 3.1 % (0.0-7.0); Hematocrit 45.2 % (41.0-53.0); Hemoglobin 15.4 g/dL (13.5-17.5); Lymphocytes # (auto) 1.6 uL; Lymphocytes % (auto) 43.6 % (10.0-50.0); Mean Corpuscular Hemoglobin 33.9 pg (28.0-32.0); Mean Corpuscular Volume 99.6 fL (80.0-100.0); Monocytes # (auto) 0.6 uL; Monocytes % (auto) 16.4 % (0.0-12.0); Neutrophils # (auto) 1.4 uL; Neutrophils % (auto) 36.3 % (37.0-80.0); Nucleated Red Blood Cells % 0.2 %; Platelet Count (auto) 163 10^3/uL (140-450); Red Blood Cells 4.54 10^6/uL (4.5-5.90); Red Cell Distribution Width 13.2 % (11.8-14.3); White Blood Cell 3.7 10^3/uL (4.4-10.8)
[2018-03-21 12:33] LABS: BUN/Creatinine Ratio 15.1; Calcium 8.6 mg/dL (8.5-10.1); Potassium 4.5 mmol/L (3.5-5.1)
== END | disposition home or self-care (01) ==
LOC: CHF HDHVI 08:16
PROVIDERS: ATTEND Internal Medicine Cardiovascular Disease
DX: I11.0 Hypertensive heart disease with heart failure (principal); I50.23 Acute on chronic systolic (congestive) heart failure; R60.9 Edema, unspecified; I25.10 Atherosclerotic heart disease of native coronary artery without angina pectoris; E11.9 Type 2 diabetes mellitus without complications; I48.91 Unspecified atrial fibrillation; E03.9 Hypothyroidism, unspecified; E78.00 Pure hypercholesterolemia, unspecified; Z95.810 Presence of automatic (implantable) cardiac defibrillator
CPT/HCPCS: 36415; 80048; 83880; 85025; 93701; 94618; 96365; 96366; G0463; J1250; J1642

== ENCOUNTER → 2018-03-23 | Outpatient (CLI) | payer OTHER ==
[2018-03-23] VITALS (8 sets, daily range): BP systolic 93–113; BP diastolic 43–61
[~2018-03-23] MED LIST changes: -DOBUTamine 1000MCG/ML 250 ML IV ONE
== END | disposition home or self-care (01) ==
LOC: CHF HDHVI 07:55
PROVIDERS: ATTEND Internal Medicine Cardiovascular Disease
DX: I11.0 Hypertensive heart disease with heart failure (principal); I50.23 Acute on chronic systolic (congestive) heart failure; E11.9 Type 2 diabetes mellitus without complications; I25.10 Atherosclerotic heart disease of native coronary artery without angina pectoris; E03.9 Hypothyroidism, unspecified; E78.5 Hyperlipidemia, unspecified; E78.00 Pure hypercholesterolemia, unspecified
CPT/HCPCS: 96365; 96366; G0463; J1642

== ENCOUNTER → 2018-03-26 | Outpatient (CLI) | payer OTHER ==
[~2018-03-26] VITALS: Ht 30.5 cm; Wt 89.8 kg
[2018-03-26] VITALS (10 sets, daily range): BP systolic 103–129; BP diastolic 48–83
[~2018-03-26] MED LIST changes: +BACITRACIN TOP OINT 1 UD PKG TOP ONE; +CYANOCOBALAMIN (B-12) 1000 MCG/1 ML VIAL IM ONE; +CYANOCOBALAMIN (B-12) 1000 MCG/1 ML VIAL ONE
== END | disposition home or self-care (01) ==
LOC: CHF HDHVI 08:05
PROVIDERS: ATTEND Internal Medicine Cardiovascular Disease
DX: I11.0 Hypertensive heart disease with heart failure (principal); I50.23 Acute on chronic systolic (congestive) heart failure; I25.10 Atherosclerotic heart disease of native coronary artery without angina pectoris; R53.83 Other fatigue; E11.9 Type 2 diabetes mellitus without complications; E78.5 Hyperlipidemia, unspecified; E78.00 Pure hypercholesterolemia, unspecified; E03.9 Hypothyroidism, unspecified
CPT/HCPCS: 96365; 96366; 96372; G0463; J1642; J3420

== ENCOUNTER → 2018-03-28 | Outpatient (CLI) | payer OTHER ==
[2018-03-28] VITALS (9 sets, daily range): BP systolic 105–125; BP diastolic 43–76
[~2018-03-28] VITALS: Ht 30.5 cm; Wt 88.9 kg
[~2018-03-28] MED LIST changes: -CYANOCOBALAMIN (B-12) 1000 MCG/1 ML VIAL IM ONE; -CYANOCOBALAMIN (B-12) 1000 MCG/1 ML VIAL ONE
[2018-03-28] MEDS: BACITRACIN TOP OINT 1 UD PKG TOP ONE (10:50)
[2018-03-28 12:07] LABS: BUN/Creatinine Ratio 15.2; Basophils # (auto) 0 uL; Basophils % (auto) 0.6 % (0.0-2.0); Eosinophils # (auto) 0.1 uL; Hematocrit 45.8 % (41.0-53.0); Hemoglobin 15.7 g/dL (13.5-17.5); Lymphocytes # (auto) 1.3 uL; Mean Corpuscular Hemoglobin 33.6 pg (28.0-32.0); Mean Corpuscular Hgb Conc. 34.3 g/dL (32.0-36.0); Mean Corpuscular Volume 97.9 fL (80.0-100.0); Monocytes # (auto) 0.5 uL; Monocytes % (auto) 15.5 % (0.0-12.0); Neutrophils # (auto) 1.4 uL; Neutrophils % (auto) 41.9 % (37.0-80.0); Nucleated Red Blood Cells % 0.1 %; Platelet Count (auto) 171 10^3/uL (140-450); Potassium 4.3 mmol/L (3.5-5.1); Red Blood Cells 4.68 10^6/uL (4.5-5.90); Red Cell Distribution Width 13.2 % (11.8-14.3); White Blood Cell 3.4 10^3/uL (4.4-10.8)
== END | disposition home or self-care (01) ==
LOC: CHF HDHVI 07:48
PROVIDERS: ATTEND Internal Medicine Cardiovascular Disease
DX: I11.0 Hypertensive heart disease with heart failure (principal); I50.23 Acute on chronic systolic (congestive) heart failure; D64.9 Anemia, unspecified; I25.10 Atherosclerotic heart disease of native coronary artery without angina pectoris; E03.9 Hypothyroidism, unspecified; E78.5 Hyperlipidemia, unspecified; E11.9 Type 2 diabetes mellitus without complications; Z95.810 Presence of automatic (implantable) cardiac defibrillator
CPT/HCPCS: 36415; 80048; 83880; 85025; 96365; 96366; G0463; J1642

== ENCOUNTER → 2018-03-30 | Outpatient (CLI) | payer OTHER ==
[2018-03-30] VITALS (10 sets, daily range): BP systolic 89–110; BP diastolic 43–71
[~2018-03-30] MED LIST changes: -BACITRACIN TOP OINT 1 UD PKG TOP ONE
== END | disposition home or self-care (01) ==
LOC: CHF HDHVI 08:04
PROVIDERS: ATTEND Internal Medicine Cardiovascular Disease
DX: I11.0 Hypertensive heart disease with heart failure (principal); I50.23 Acute on chronic systolic (congestive) heart failure; I25.10 Atherosclerotic heart disease of native coronary artery without angina pectoris; E03.9 Hypothyroidism, unspecified; I48.1 Persistent atrial fibrillation; E11.9 Type 2 diabetes mellitus without complications; J44.9 Chronic obstructive pulmonary disease, unspecified; I25.2 Old myocardial infarction; E78.00 Pure hypercholesterolemia, unspecified; E78.5 Hyperlipidemia, unspecified; Z95.810 Presence of automatic (implantable) cardiac defibrillator; Z98.61 Coronary angioplasty status; Z95.1 Presence of aortocoronary bypass graft; Z86.73 Personal history of transient ischemic attack (TIA), and cerebral infarction without residual deficits
CPT/HCPCS: 96365; 96366; G0463; J1642

== ENCOUNTER → 2018-04-02 | Outpatient (CLI) | payer OTHER ==
[2018-04-02] VITALS (10 sets, daily range): BP systolic 101–129; BP diastolic 56–77
[~2018-04-02] MED LIST changes: +CYANOCOBALAMIN (B-12) 1000 MCG/1 ML VIAL ONE
== END | disposition home or self-care (01) ==
LOC: CHF HDHVI 08:02
PROVIDERS: ATTEND Internal Medicine Cardiovascular Disease
DX: I11.0 Hypertensive heart disease with heart failure (principal); I50.23 Acute on chronic systolic (congestive) heart failure; I25.10 Atherosclerotic heart disease of native coronary artery without angina pectoris; E03.9 Hypothyroidism, unspecified; E11.9 Type 2 diabetes mellitus without complications; I25.2 Old myocardial infarction; I48.91 Unspecified atrial fibrillation; Z95.810 Presence of automatic (implantable) cardiac defibrillator; Z95.1 Presence of aortocoronary bypass graft; Z86.73 Personal history of transient ischemic attack (TIA), and cerebral infarction without residual deficits
CPT/HCPCS: 96365; 96366; G0463; J1642

== ENCOUNTER → 2018-04-04 | Outpatient (CLI) | payer OTHER ==
[2018-04-04] VITALS (10 sets, daily range): BP systolic 99–119; BP diastolic 38–73
[~2018-04-04] VITALS: Ht 30.5 cm; Wt 58.1 kg
[~2018-04-04] MED LIST changes: -CYANOCOBALAMIN (B-12) 1000 MCG/1 ML VIAL ONE
[2018-04-04 12:12] LABS: Potassium 4.2 mmol/L (3.5-5.1)
== END | disposition home or self-care (01) ==
LOC: CHF HDHVI 07:55
PROVIDERS: ATTEND Internal Medicine Cardiovascular Disease
DX: I11.0 Hypertensive heart disease with heart failure (principal); I50.23 Acute on chronic systolic (congestive) heart failure; E11.9 Type 2 diabetes mellitus without complications; I25.10 Atherosclerotic heart disease of native coronary artery without angina pectoris; I48.91 Unspecified atrial fibrillation; E03.9 Hypothyroidism, unspecified; E78.5 Hyperlipidemia, unspecified; Z95.810 Presence of automatic (implantable) cardiac defibrillator
CPT/HCPCS: 36415; 82565; 83880; 84132; 84520; 96365; 96366; G0463; J1642

== ENCOUNTER → 2018-04-06 | Outpatient (CLI) | payer OTHER ==
[~2018-04-06] VITALS: Ht 30.5 cm; Wt 90.3 kg
[2018-04-06] VITALS (9 sets, daily range): BP systolic 100–122; BP diastolic 55–74
== END | disposition home or self-care (01) ==
LOC: CHF HDHVI 08:01
PROVIDERS: ATTEND Internal Medicine Cardiovascular Disease
DX: I11.0 Hypertensive heart disease with heart failure (principal); I50.23 Acute on chronic systolic (congestive) heart failure; I25.10 Atherosclerotic heart disease of native coronary artery without angina pectoris; I48.91 Unspecified atrial fibrillation; D64.9 Anemia, unspecified; E29.1 Testicular hypofunction; E03.9 Hypothyroidism, unspecified; E11.9 Type 2 diabetes mellitus without complications
CPT/HCPCS: 96365; 96366; G0463; J1642

== ENCOUNTER → 2018-04-09 | Outpatient (CLI) | payer OTHER ==
[2018-04-09] VITALS (10 sets, daily range): BP systolic 98–124; BP diastolic 55–77
== END | disposition home or self-care (01) ==
LOC: CHF HDHVI 08:08
PROVIDERS: ATTEND Internal Medicine Cardiovascular Disease
DX: I11.0 Hypertensive heart disease with heart failure (principal); I50.23 Acute on chronic systolic (congestive) heart failure; I48.91 Unspecified atrial fibrillation; E03.9 Hypothyroidism, unspecified; I25.10 Atherosclerotic heart disease of native coronary artery without angina pectoris; E11.9 Type 2 diabetes mellitus without complications; E78.00 Pure hypercholesterolemia, unspecified; Z95.810 Presence of automatic (implantable) cardiac defibrillator
CPT/HCPCS: 96365; 96366; G0463; J1642

== ENCOUNTER → 2018-04-11 | Outpatient (CLI) | payer OTHER ==
[2018-04-11] VITALS (10 sets, daily range): BP systolic 101–119; BP diastolic 53–73
[~2018-04-11] VITALS: Ht 30.5 cm; Wt 89.8 kg
[~2018-04-11] MED LIST changes: +CATHFLO ACTIVASE (ALTEPLASE) 2 MG VIAL IV ONE
[2018-04-11 12:31] LABS: Potassium 4.3 mmol/L (3.5-5.1)
== END | disposition home or self-care (01) ==
LOC: CHF HDHVI 07:44
PROVIDERS: ATTEND Internal Medicine Cardiovascular Disease
DX: I11.0 Hypertensive heart disease with heart failure (principal); I50.23 Acute on chronic systolic (congestive) heart failure; D51.9 Vitamin B12 deficiency anemia, unspecified; E11.9 Type 2 diabetes mellitus without complications; I25.10 Atherosclerotic heart disease of native coronary artery without angina pectoris; F31.9 Bipolar disorder, unspecified; I25.2 Old myocardial infarction; E03.9 Hypothyroidism, unspecified; I48.1 Persistent atrial fibrillation; K21.9 Gastro-esophageal reflux disease without esophagitis; E78.00 Pure hypercholesterolemia, unspecified; J44.9 Chronic obstructive pulmonary disease, unspecified; Z98.61 Coronary angioplasty status; Z95.1 Presence of aortocoronary bypass graft; Z95.810 Presence of automatic (implantable) cardiac defibrillator; Z86.73 Personal history of transient ischemic attack (TIA), and cerebral infarction without residual deficits; Z85.038 Personal history of other malignant neoplasm of large intestine
CPT/HCPCS: 36415; 82565; 82607; 83880; 84132; 84520; 96365; 96366; G0463; J1642

== ENCOUNTER → 2018-04-13 | Outpatient (CLI) | payer OTHER ==
[2018-04-13] VITALS (9 sets, daily range): BP systolic 111–124; BP diastolic 58–81
== END | disposition home or self-care (01) ==
LOC: CHF HDHVI 08:04
PROVIDERS: ATTEND Internal Medicine Cardiovascular Disease
DX: I11.0 Hypertensive heart disease with heart failure (principal); I50.23 Acute on chronic systolic (congestive) heart failure; I48.1 Persistent atrial fibrillation; I25.10 Atherosclerotic heart disease of native coronary artery without angina pectoris; E11.9 Type 2 diabetes mellitus without complications; E03.9 Hypothyroidism, unspecified; E78.00 Pure hypercholesterolemia, unspecified; K21.9 Gastro-esophageal reflux disease without esophagitis; I25.2 Old myocardial infarction; F31.9 Bipolar disorder, unspecified; Z95.1 Presence of aortocoronary bypass graft; Z95.810 Presence of automatic (implantable) cardiac defibrillator; Z44.9 Encounter for fitting and adjustment of unspecified external prosthetic device; Z98.61 Coronary angioplasty status; Z86.73 Personal history of transient ischemic attack (TIA), and cerebral infarction without residual deficits; Z85.038 Personal history of other malignant neoplasm of large intestine
CPT/HCPCS: 96365; 96366; 96375; G0463; J1642; J2997

== ENCOUNTER → 2018-04-16 | Outpatient (CLI) | payer OTHER ==
[2018-04-16] VITALS (9 sets, daily range): BP systolic 103–120; BP diastolic 55–81
[~2018-04-16] MED LIST changes: -CATHFLO ACTIVASE (ALTEPLASE) 2 MG VIAL IV ONE
== END | disposition home or self-care (01) ==
LOC: CHF HDHVI 08:10
PROVIDERS: ATTEND Internal Medicine Cardiovascular Disease
DX: I11.0 Hypertensive heart disease with heart failure (principal); I50.23 Acute on chronic systolic (congestive) heart failure; E11.9 Type 2 diabetes mellitus without complications; I25.10 Atherosclerotic heart disease of native coronary artery without angina pectoris; E78.5 Hyperlipidemia, unspecified; E03.9 Hypothyroidism, unspecified; I25.2 Old myocardial infarction; K21.9 Gastro-esophageal reflux disease without esophagitis; I48.1 Persistent atrial fibrillation; E78.00 Pure hypercholesterolemia, unspecified; Z98.61 Coronary angioplasty status; Z86.73 Personal history of transient ischemic attack (TIA), and cerebral infarction without residual deficits; Z95.1 Presence of aortocoronary bypass graft; Z95.810 Presence of automatic (implantable) cardiac defibrillator
CPT/HCPCS: 96365; 96366; G0463; J1642

== ENCOUNTER → 2018-04-18 | Outpatient (CLI) | payer OTHER ==
[2018-04-18] VITALS (10 sets, daily range): BP systolic 91–123; BP diastolic 51–73
== END | disposition home or self-care (01) ==
LOC: CHF HDHVI 07:42
PROVIDERS: ATTEND Internal Medicine Cardiovascular Disease
DX: I11.0 Hypertensive heart disease with heart failure (principal); I50.23 Acute on chronic systolic (congestive) heart failure; I25.10 Atherosclerotic heart disease of native coronary artery without angina pectoris; J44.9 Chronic obstructive pulmonary disease, unspecified; E78.5 Hyperlipidemia, unspecified; E03.9 Hypothyroidism, unspecified; I48.1 Persistent atrial fibrillation; E11.9 Type 2 diabetes mellitus without complications; I25.2 Old myocardial infarction; K21.9 Gastro-esophageal reflux disease without esophagitis; Z95.810 Presence of automatic (implantable) cardiac defibrillator; Z98.61 Coronary angioplasty status; Z95.1 Presence of aortocoronary bypass graft; Z79.899 Other long term (current) drug therapy
CPT/HCPCS: 83880; 96365; 96366; G0463; J1642

== ENCOUNTER → 2018-04-20 | Outpatient (CLI) | payer OTHER ==
[~2018-04-20] VITALS: Ht 30.5 cm; Wt 90.3 kg
[2018-04-20] VITALS (9 sets, daily range): BP systolic 98–122; BP diastolic 50–65
[~2018-04-20] MED LIST changes: +CYANOCOBALAMIN (B-12) 1000 MCG/1 ML VIAL IM ONE; +CYANOCOBALAMIN (B-12) 1000 MCG/1 ML VIAL ONE; +KETOROLAC TROMETH 30 MG/ML 1ML VIAL IV ONE; +KETOROLAC TROMETH 60MG/2ML VIAL IM ONE
== END | disposition home or self-care (01) ==
LOC: CHF HDHVI 07:58
PROVIDERS: ATTEND Internal Medicine Cardiovascular Disease
DX: I25.10 Atherosclerotic heart disease of native coronary artery without angina pectoris (principal); I48.91 Unspecified atrial fibrillation; I11.0 Hypertensive heart disease with heart failure; I50.23 Acute on chronic systolic (congestive) heart failure; M54.9 Dorsalgia, unspecified; E11.9 Type 2 diabetes mellitus without complications; E03.9 Hypothyroidism, unspecified; I25.2 Old myocardial infarction; E78.00 Pure hypercholesterolemia, unspecified; E78.5 Hyperlipidemia, unspecified; D51.9 Vitamin B12 deficiency anemia, unspecified; Z98.61 Coronary angioplasty status; Z95.810 Presence of automatic (implantable) cardiac defibrillator; Z95.1 Presence of aortocoronary bypass graft; Z86.73 Personal history of transient ischemic attack (TIA), and cerebral infarction without residual deficits
CPT/HCPCS: 93701; 96365; 96366; 96372; 96375; G0463; J1642; J1885; J3420

== ENCOUNTER → 2018-04-24 | Outpatient (CLI) | payer OTHER ==
[~2018-04-24] MED LIST changes: -CYANOCOBALAMIN (B-12) 1000 MCG/1 ML VIAL IM ONE; -CYANOCOBALAMIN (B-12) 1000 MCG/1 ML VIAL ONE; +KETOROLAC TROMETH 30 MG/ML 1ML VIAL IM ONE
[2018-04-24 11:00] VITALS: BP 119/67
[2018-04-24 12:02] LABS: Basophils # (auto) 0 uL; Basophils % (auto) 0.8 % (0.0-2.0); Eosinophils # (auto) 0.2 uL; Eosinophils % (auto) 4.6 % (0.0-7.0); Hematocrit 42.7 % (41.0-53.0); Hemoglobin 14.4 g/dL (13.5-17.5); Lymphocytes # (auto) 1.2 uL; Lymphocytes % (auto) 35.9 % (10.0-50.0); Mean Corpuscular Hemoglobin 33.1 pg (28.0-32.0); Mean Corpuscular Hgb Conc. 33.7 g/dL (32.0-36.0); Mean Corpuscular Volume 98.1 fL (80.0-100.0); Monocytes # (auto) 0.6 uL; Monocytes % (auto) 17.1 % (0.0-12.0); Neutrophils # (auto) 1.4 uL; Neutrophils % (auto) 41.6 % (37.0-80.0); Platelet Count (auto) 146 10^3/uL (140-450); Red Blood Cells 4.35 10^6/uL (4.5-5.90); Red Cell Distribution Width 13.2 % (11.8-14.3); White Blood Cell 3.4 10^3/uL (4.4-10.8)
[2018-04-24 12:23] LABS: Albumin 3.6 g/dL (3.4-5.0); BUN/Creatinine Ratio 17.8; Bilirubin, Total 0.4 mg/dL (0.2-1.0); Calcium 8.3 mg/dL (8.5-10.1); Magnesium 2.9 mg/dL (1.6-2.6); Potassium 4.6 mmol/L (3.5-5.1); Total Protein 7.2 g/dL (6.4-8.2)
== END | disposition home or self-care (01) ==
LOC: CHF HDHVI 07:51
PROVIDERS: ATTEND Internal Medicine Cardiovascular Disease
DX: I11.0 Hypertensive heart disease with heart failure (principal); I50.23 Acute on chronic systolic (congestive) heart failure; M54.5 Low back pain; I48.1 Persistent atrial fibrillation; D64.9 Anemia, unspecified; E11.9 Type 2 diabetes mellitus without complications; I25.10 Atherosclerotic heart disease of native coronary artery without angina pectoris; E78.5 Hyperlipidemia, unspecified; E03.9 Hypothyroidism, unspecified; I25.2 Old myocardial infarction; E78.00 Pure hypercholesterolemia, unspecified; F31.9 Bipolar disorder, unspecified; J44.9 Chronic obstructive pulmonary disease, unspecified; K21.9 Gastro-esophageal reflux disease without esophagitis; Z98.61 Coronary angioplasty status; Z95.1 Presence of aortocoronary bypass graft; Z86.73 Personal history of transient ischemic attack (TIA), and cerebral infarction without residual deficits; Z79.899 Other long term (current) drug therapy; Z95.810 Presence of automatic (implantable) cardiac defibrillator; Z85.038 Personal history of other malignant neoplasm of large intestine
CPT/HCPCS: 36415; 80053; 83735; 83880; 85025; 96365; 96366; 96372; 96375; G0463; J1642; J1885

== ENCOUNTER → 2018-04-26 | Outpatient (CLI) | payer OTHER ==
[2018-04-26] VITALS (8 sets, daily range): BP systolic 117–129; BP diastolic 65–79
[~2018-04-26] MED LIST changes: -KETOROLAC TROMETH 30 MG/ML 1ML VIAL IM ONE; -KETOROLAC TROMETH 30 MG/ML 1ML VIAL IV ONE; -KETOROLAC TROMETH 60MG/2ML VIAL IM ONE
== END | disposition home or self-care (01) ==
LOC: CHF HDHVI 08:12
PROVIDERS: ATTEND Internal Medicine Cardiovascular Disease
DX: I11.0 Hypertensive heart disease with heart failure (principal); I50.23 Acute on chronic systolic (congestive) heart failure; I25.10 Atherosclerotic heart disease of native coronary artery without angina pectoris; M54.9 Dorsalgia, unspecified; J44.9 Chronic obstructive pulmonary disease, unspecified; K21.9 Gastro-esophageal reflux disease without esophagitis; E78.5 Hyperlipidemia, unspecified; E03.9 Hypothyroidism, unspecified; I25.2 Old myocardial infarction; I48.91 Unspecified atrial fibrillation; E78.00 Pure hypercholesterolemia, unspecified; E11.9 Type 2 diabetes mellitus without complications; Z79.899 Other long term (current) drug therapy; Z95.1 Presence of aortocoronary bypass graft; Z95.810 Presence of automatic (implantable) cardiac defibrillator; Z98.61 Coronary angioplasty status; Z86.73 Personal history of transient ischemic attack (TIA), and cerebral infarction without residual deficits
CPT/HCPCS: 96365; 96366; G0463; J1642

== ENCOUNTER → 2018-04-30 | Outpatient (CLI) | payer OTHER ==
[2018-04-30] VITALS (10 sets, daily range): BP systolic 94–125; BP diastolic 52–72
[~2018-04-30] MED LIST changes: +DOBUTamine 1000MCG/ML 250 ML IV ONE
== END | disposition home or self-care (01) ==
LOC: CHF HDHVI 07:56
PROVIDERS: ATTEND Internal Medicine Cardiovascular Disease
DX: I11.0 Hypertensive heart disease with heart failure (principal); I50.23 Acute on chronic systolic (congestive) heart failure; I25.10 Atherosclerotic heart disease of native coronary artery without angina pectoris; J44.9 Chronic obstructive pulmonary disease, unspecified; K21.9 Gastro-esophageal reflux disease without esophagitis; E78.5 Hyperlipidemia, unspecified; E03.9 Hypothyroidism, unspecified; I25.2 Old myocardial infarction; Z86.73 Personal history of transient ischemic attack (TIA), and cerebral infarction without residual deficits; E78.00 Pure hypercholesterolemia, unspecified; E11.9 Type 2 diabetes mellitus without complications; I48.1 Persistent atrial fibrillation; Z95.1 Presence of aortocoronary bypass graft; Z98.61 Coronary angioplasty status; Z79.899 Other long term (current) drug therapy; Z95.810 Presence of automatic (implantable) cardiac defibrillator
CPT/HCPCS: 96365; 96366; G0463; J1250; J1642

== ENCOUNTER → 2018-05-02 | Outpatient (CLI) | payer OTHER ==
[2018-05-02] VITALS (8 sets, daily range): BP systolic 99–125; BP diastolic 53–72
[2018-05-02 12:33] LABS: Potassium 4.1 mmol/L (3.5-5.1)
== END | disposition home or self-care (01) ==
LOC: CHF HDHVI 07:47
PROVIDERS: ATTEND Internal Medicine Cardiovascular Disease
DX: I11.0 Hypertensive heart disease with heart failure (principal); I50.23 Acute on chronic systolic (congestive) heart failure; I25.10 Atherosclerotic heart disease of native coronary artery without angina pectoris; J44.9 Chronic obstructive pulmonary disease, unspecified; Z95.810 Presence of automatic (implantable) cardiac defibrillator; Z98.61 Coronary angioplasty status; K21.9 Gastro-esophageal reflux disease without esophagitis; E03.9 Hypothyroidism, unspecified; I25.2 Old myocardial infarction; I48.1 Persistent atrial fibrillation; Z95.1 Presence of aortocoronary bypass graft; E78.00 Pure hypercholesterolemia, unspecified; E11.9 Type 2 diabetes mellitus without complications
CPT/HCPCS: 36415; 82565; 83880; 84132; 84520; 96365; 96366; G0463; J1250; J1642

== ENCOUNTER → 2018-05-04 | Outpatient (CLI) | payer OTHER ==
[2018-05-04] VITALS (9 sets, daily range): BP systolic 100–130; BP diastolic 53–72
[~2018-05-04] MED LIST changes: +DOBUTamine 1000MCG/ML 250 ML IV SCH
== END | disposition home or self-care (01) ==
LOC: CHF HDHVI 07:57
PROVIDERS: ATTEND Internal Medicine Cardiovascular Disease
DX: I11.0 Hypertensive heart disease with heart failure (principal); I50.23 Acute on chronic systolic (congestive) heart failure; I25.10 Atherosclerotic heart disease of native coronary artery without angina pectoris; I48.1 Persistent atrial fibrillation; I25.2 Old myocardial infarction; E11.9 Type 2 diabetes mellitus without complications; J44.9 Chronic obstructive pulmonary disease, unspecified; E78.00 Pure hypercholesterolemia, unspecified; F31.9 Bipolar disorder, unspecified; Z85.038 Personal history of other malignant neoplasm of large intestine; Z86.73 Personal history of transient ischemic attack (TIA), and cerebral infarction without residual deficits; Z95.1 Presence of aortocoronary bypass graft; Z95.810 Presence of automatic (implantable) cardiac defibrillator; Z79.899 Other long term (current) drug therapy
CPT/HCPCS: 96365; 96366; G0463; J1250; J1642

== ENCOUNTER → 2018-05-09 | Outpatient (CLI) | payer OTHER ==
[~2018-05-09] VITALS: Ht 30.5 cm; Wt 90.2 kg
[2018-05-09] VITALS (10 sets, daily range): BP systolic 104–129; BP diastolic 57–82
[~2018-05-09] MED LIST changes: -DOBUTamine 1000MCG/ML 250 ML IV SCH
[2018-05-09 12:08] LABS: Basophils # (auto) 0 uL; Basophils % (auto) 0.6 % (0.0-2.0); Eosinophils # (auto) 0.1 uL; Eosinophils % (auto) 2.7 % (0.0-7.0); Hematocrit 44.3 % (41.0-53.0); Lymphocytes # (auto) 1.6 uL; Mean Corpuscular Hemoglobin 32.9 pg (28.0-32.0); Mean Corpuscular Hgb Conc. 33.9 g/dL (32.0-36.0); Mean Corpuscular Volume 96.9 fL (80.0-100.0); Monocytes # (auto) 0.6 uL; Monocytes % (auto) 14.7 % (0.0-12.0); Neutrophils # (auto) 1.7 uL; Nucleated Red Blood Cells % 0.6 %; Platelet Count (auto) 160 10^3/uL (140-450); Red Blood Cells 4.57 10^6/uL (4.5-5.90); White Blood Cell 4.1 10^3/uL (4.4-10.8)
[2018-05-09 12:19] LABS: Potassium 4.3 mmol/L (3.5-5.1)
== END | disposition home or self-care (01) ==
LOC: CHF HDHVI 08:10
PROVIDERS: ATTEND Internal Medicine Cardiovascular Disease
DX: I11.0 Hypertensive heart disease with heart failure (principal); I50.23 Acute on chronic systolic (congestive) heart failure; I25.10 Atherosclerotic heart disease of native coronary artery without angina pectoris; E11.9 Type 2 diabetes mellitus without complications; J44.9 Chronic obstructive pulmonary disease, unspecified; F31.9 Bipolar disorder, unspecified; E78.5 Hyperlipidemia, unspecified; I25.2 Old myocardial infarction; K21.9 Gastro-esophageal reflux disease without esophagitis; E03.9 Hypothyroidism, unspecified; E78.00 Pure hypercholesterolemia, unspecified; I48.1 Persistent atrial fibrillation; Z85.038 Personal history of other malignant neoplasm of large intestine; Z86.73 Personal history of transient ischemic attack (TIA), and cerebral infarction without residual deficits; Z79.899 Other long term (current) drug therapy; Z95.810 Presence of automatic (implantable) cardiac defibrillator; Z95.1 Presence of aortocoronary bypass graft; Z98.61 Coronary angioplasty status
CPT/HCPCS: 36415; 82565; 83880; 84132; 84520; 85025; 96365; 96366; G0463; J1250; J1642

== ENCOUNTER → 2018-05-11 | Outpatient (CLI) | payer OTHER ==
[~2018-05-11] MED LIST changes: +CATHFLO ACTIVASE (ALTEPLASE) 2 MG VIAL IV ONE; -DOBUTamine 1000MCG/ML 250 ML IV ONE
[2018-05-11 10:45] VITALS: BP 126/81
== END | disposition home or self-care (01) ==
LOC: CHF HDHVI 07:54
PROVIDERS: ATTEND Internal Medicine Cardiovascular Disease
DX: I11.0 Hypertensive heart disease with heart failure (principal); I50.23 Acute on chronic systolic (congestive) heart failure; I25.10 Atherosclerotic heart disease of native coronary artery without angina pectoris; J44.9 Chronic obstructive pulmonary disease, unspecified; K21.9 Gastro-esophageal reflux disease without esophagitis; E78.5 Hyperlipidemia, unspecified; E03.9 Hypothyroidism, unspecified; I25.2 Old myocardial infarction; I48.1 Persistent atrial fibrillation; E78.00 Pure hypercholesterolemia, unspecified; E11.9 Type 2 diabetes mellitus without complications; Z95.1 Presence of aortocoronary bypass graft; Z95.810 Presence of automatic (implantable) cardiac defibrillator; Z98.61 Coronary angioplasty status; Z79.899 Other long term (current) drug therapy
CPT/HCPCS: 71046; 93005; 96374; 96376; G0463; J1642; J2997; 96375

== ENCOUNTER → 2018-05-14 | Outpatient (CLI) | payer OTHER ==
[2018-05-14] VITALS (9 sets, daily range): BP systolic 86–118; BP diastolic 44–68
[~2018-05-14] MED LIST changes: -CATHFLO ACTIVASE (ALTEPLASE) 2 MG VIAL IV ONE; +DOBUTamine 1000MCG/ML 250 ML IV ONE; +KETOROLAC TROMETH 60MG/2ML VIAL IM ONE
== END | disposition home or self-care (01) ==
LOC: CHF HDHVI 07:51
PROVIDERS: ATTEND Internal Medicine Cardiovascular Disease
DX: I11.0 Hypertensive heart disease with heart failure (principal); I50.23 Acute on chronic systolic (congestive) heart failure; I25.10 Atherosclerotic heart disease of native coronary artery without angina pectoris; I25.2 Old myocardial infarction; I48.1 Persistent atrial fibrillation; J44.9 Chronic obstructive pulmonary disease, unspecified; K21.9 Gastro-esophageal reflux disease without esophagitis; E78.5 Hyperlipidemia, unspecified; E03.9 Hypothyroidism, unspecified; E78.00 Pure hypercholesterolemia, unspecified; E11.9 Type 2 diabetes mellitus without complications; F31.9 Bipolar disorder, unspecified; M54.5 Low back pain; Z79.899 Other long term (current) drug therapy; Z85.038 Personal history of other malignant neoplasm of large intestine; Z86.73 Personal history of transient ischemic attack (TIA), and cerebral infarction without residual deficits; Z98.61 Coronary angioplasty status; Z95.1 Presence of aortocoronary bypass graft; Z95.810 Presence of automatic (implantable) cardiac defibrillator
CPT/HCPCS: 96365; 96366; G0463; J1250; J1642

== ENCOUNTER → 2018-05-16 | Outpatient (CLI) | payer OTHER ==
[2018-05-16] VITALS (9 sets, daily range): BP systolic 83–115; BP diastolic 48–62
[~2018-05-16] MED LIST changes: -KETOROLAC TROMETH 60MG/2ML VIAL IM ONE
[2018-05-16 11:56] LABS: Basophils # (auto) 0 uL; Basophils % (auto) 0.5 % (0.0-2.0); Eosinophils # (auto) 0.2 uL; Hemoglobin 14.1 g/dL (13.5-17.5); Lymphocytes # (auto) 1.3 uL; Lymphocytes % (auto) 26.7 % (10.0-50.0); Mean Corpuscular Hemoglobin 33.1 pg (28.0-32.0); Mean Corpuscular Hgb Conc. 33.7 g/dL (32.0-36.0); Mean Corpuscular Volume 98.2 fL (80.0-100.0); Monocytes # (auto) 0.8 uL; Neutrophils # (auto) 2.6 uL; Neutrophils % (auto) 51.8 % (37.0-80.0); Nucleated Red Blood Cells % 0.1 %; Platelet Count (auto) 141 10^3/uL (140-450); Red Blood Cells 4.28 10^6/uL (4.5-5.90); Red Cell Distribution Width 13.5 % (11.8-14.3)
[2018-05-16 12:04] LABS: BUN/Creatinine Ratio 15.3; Calcium 8.6 mg/dL (8.5-10.1); Magnesium 2.8 mg/dL (1.6-2.6); Potassium 4.1 mmol/L (3.5-5.1)
== END | disposition home or self-care (01) ==
LOC: CHF HDHVI 08:00
PROVIDERS: ATTEND Internal Medicine Cardiovascular Disease
DX: I11.0 Hypertensive heart disease with heart failure (principal); I50.23 Acute on chronic systolic (congestive) heart failure; D64.9 Anemia, unspecified; I48.91 Unspecified atrial fibrillation; E83.40 Disorders of magnesium metabolism, unspecified; I25.10 Atherosclerotic heart disease of native coronary artery without angina pectoris; J44.9 Chronic obstructive pulmonary disease, unspecified; E03.9 Hypothyroidism, unspecified; E78.5 Hyperlipidemia, unspecified; I25.2 Old myocardial infarction; I48.1 Persistent atrial fibrillation; E11.9 Type 2 diabetes mellitus without complications; E78.00 Pure hypercholesterolemia, unspecified; Z95.1 Presence of aortocoronary bypass graft; Z95.810 Presence of automatic (implantable) cardiac defibrillator
CPT/HCPCS: 36415; 80048; 83735; 83880; 85025; 96365; 96366; G0463; J1250; J1642

== ENCOUNTER → 2018-05-18 | Outpatient (CLI) | payer OTHER ==
[2018-05-18] VITALS (10 sets, daily range): BP systolic 101–120; BP diastolic 56–74
== END | disposition home or self-care (01) ==
LOC: CHF HDHVI 07:56
PROVIDERS: ATTEND Internal Medicine Cardiovascular Disease
DX: I11.0 Hypertensive heart disease with heart failure (principal); I50.23 Acute on chronic systolic (congestive) heart failure; I25.10 Atherosclerotic heart disease of native coronary artery without angina pectoris; J44.9 Chronic obstructive pulmonary disease, unspecified; K21.9 Gastro-esophageal reflux disease without esophagitis; E78.5 Hyperlipidemia, unspecified; I48.1 Persistent atrial fibrillation; E03.9 Hypothyroidism, unspecified; I25.2 Old myocardial infarction; E11.9 Type 2 diabetes mellitus without complications; E78.00 Pure hypercholesterolemia, unspecified; Z95.1 Presence of aortocoronary bypass graft; Z98.61 Coronary angioplasty status; Z95.810 Presence of automatic (implantable) cardiac defibrillator
CPT/HCPCS: 96365; 96366; G0463; J1250; J1642

== ENCOUNTER → 2018-05-21 | Outpatient (CLI) | payer OTHER ==
[2018-05-21 11:00] VITALS: BP 125/70
== END | disposition home or self-care (01) ==
LOC: CHF HDHVI 08:02
PROVIDERS: ATTEND Internal Medicine Cardiovascular Disease
DX: I11.0 Hypertensive heart disease with heart failure (principal); I50.23 Acute on chronic systolic (congestive) heart failure; I48.1 Persistent atrial fibrillation; I25.10 Atherosclerotic heart disease of native coronary artery without angina pectoris; E11.9 Type 2 diabetes mellitus without complications; J44.9 Chronic obstructive pulmonary disease, unspecified; E78.5 Hyperlipidemia, unspecified; E03.9 Hypothyroidism, unspecified; I25.2 Old myocardial infarction; K21.9 Gastro-esophageal reflux disease without esophagitis; Z79.899 Other long term (current) drug therapy; Z95.1 Presence of aortocoronary bypass graft; Z95.810 Presence of automatic (implantable) cardiac defibrillator
CPT/HCPCS: 96365; 96366; G0463; J1250; J1642

== ENCOUNTER → 2018-05-23 | Outpatient (CLI) | payer OTHER ==
[~2018-05-23] VITALS: Ht 30.5 cm; Wt 89.8 kg
[2018-05-23] VITALS (10 sets, daily range): BP systolic 100–120; BP diastolic 56–80
[~2018-05-23] MED LIST changes: +CYANOCOBALAMIN (B-12) 1000 MCG/1 ML VIAL IM ONE; +CYANOCOBALAMIN (B-12) 1000 MCG/1 ML VIAL ONE
[2018-05-23 12:27] LABS: Potassium 4.3 mmol/L (3.5-5.1)
== END | disposition home or self-care (01) ==
LOC: CHF HDHVI 07:59
PROVIDERS: ATTEND Internal Medicine Cardiovascular Disease
DX: I11.0 Hypertensive heart disease with heart failure (principal); I50.23 Acute on chronic systolic (congestive) heart failure; I48.1 Persistent atrial fibrillation; I25.10 Atherosclerotic heart disease of native coronary artery without angina pectoris; I25.2 Old myocardial infarction; E11.9 Type 2 diabetes mellitus without complications; J44.9 Chronic obstructive pulmonary disease, unspecified; K21.9 Gastro-esophageal reflux disease without esophagitis; E78.5 Hyperlipidemia, unspecified; E03.9 Hypothyroidism, unspecified; E78.00 Pure hypercholesterolemia, unspecified; Z79.899 Other long term (current) drug therapy; Z95.810 Presence of automatic (implantable) cardiac defibrillator; Z95.1 Presence of aortocoronary bypass graft; Z98.61 Coronary angioplasty status; Z85.038 Personal history of other malignant neoplasm of large intestine; Z86.73 Personal history of transient ischemic attack (TIA), and cerebral infarction without residual deficits
CPT/HCPCS: 36415; 82565; 83880; 84132; 84520; 96365; 96366; 96372; G0463; J1250; J1642; J3420

== ENCOUNTER → 2018-05-31 | Outpatient (CLI) | payer OTHER ==
[2018-05-31] VITALS (9 sets, daily range): BP systolic 101–136; BP diastolic 57–81
[~2018-05-31] MED LIST changes: -CYANOCOBALAMIN (B-12) 1000 MCG/1 ML VIAL IM ONE; -CYANOCOBALAMIN (B-12) 1000 MCG/1 ML VIAL ONE; -DOBUTamine 1000MCG/ML 250 ML IV ONE
== END | disposition home or self-care (01) ==
LOC: CHF HDHVI 08:03
PROVIDERS: ATTEND Internal Medicine Cardiovascular Disease
DX: I13.0 Hypertensive heart and chronic kidney disease with heart failure and stage 1 through stage 4 chronic kidney disease, or unspecified chronic kidney disease (principal); E11.22 Type 2 diabetes mellitus with diabetic chronic kidney disease; I50.23 Acute on chronic systolic (congestive) heart failure; N18.9 Chronic kidney disease, unspecified; D63.1 Anemia in chronic kidney disease; I25.10 Atherosclerotic heart disease of native coronary artery without angina pectoris; K21.9 Gastro-esophageal reflux disease without esophagitis; E78.5 Hyperlipidemia, unspecified; E03.9 Hypothyroidism, unspecified; I25.2 Old myocardial infarction; I48.1 Persistent atrial fibrillation; E78.00 Pure hypercholesterolemia, unspecified; F31.9 Bipolar disorder, unspecified; Z79.899 Other long term (current) drug therapy; Z95.1 Presence of aortocoronary bypass graft; Z98.61 Coronary angioplasty status; Z85.038 Personal history of other malignant neoplasm of large intestine; Z95.810 Presence of automatic (implantable) cardiac defibrillator; Z86.73 Personal history of transient ischemic attack (TIA), and cerebral infarction without residual deficits
CPT/HCPCS: 96365; 96366; G0463; J1642

== ENCOUNTER → 2018-06-13 | Outpatient (CLI) | payer OTHER ==
[2018-06-13] VITALS (9 sets, daily range): BP systolic 104–120; BP diastolic 58–72
[~2018-06-13] VITALS: Ht 30.5 cm; Wt 90.7 kg
[2018-06-13 12:09] LABS: Basophils # (auto) 0 uL; Basophils % (auto) 0.7 % (0.0-2.0); Eosinophils # (auto) 0.2 uL; Eosinophils % (auto) 4.3 % (0.0-7.0); Hematocrit 43.1 % (41.0-53.0); Hemoglobin 14.4 g/dL (13.5-17.5); Lymphocytes # (auto) 1.2 uL; Lymphocytes % (auto) 31.8 % (10.0-50.0); Mean Corpuscular Hemoglobin 32.8 pg (28.0-32.0); Mean Corpuscular Hgb Conc. 33.3 g/dL (32.0-36.0); Mean Corpuscular Volume 98.3 fL (80.0-100.0); Monocytes # (auto) 0.5 uL; Monocytes % (auto) 12.7 % (0.0-12.0); Neutrophils # (auto) 1.9 uL; Neutrophils % (auto) 50.5 % (37.0-80.0); Nucleated Red Blood Cells % 0.5 %; Platelet Count (auto) 145 10^3/uL (140-450); Red Blood Cells 4.39 10^6/uL (4.5-5.90); Red Cell Distribution Width 13.6 % (11.8-14.3); White Blood Cell 3.8 10^3/uL (4.4-10.8)
[2018-06-13 12:21] LABS: Albumin 3.8 g/dL (3.4-5.0); BUN/Creatinine Ratio 14.6; Bilirubin, Total 0.7 mg/dL (0.2-1.0); Calcium 8.5 mg/dL (8.5-10.1); Magnesium 2.9 mg/dL (1.6-2.6); Potassium 4.1 mmol/L (3.5-5.1); Total Protein 7.5 g/dL (6.4-8.2)
== END | disposition home or self-care (01) ==
LOC: CHF HDHVI 07:48
PROVIDERS: ATTEND Internal Medicine Cardiovascular Disease
DX: I48.91 Unspecified atrial fibrillation (principal); I13.0 Hypertensive heart and chronic kidney disease with heart failure and stage 1 through stage 4 chronic kidney disease, or unspecified chronic kidney disease; E11.22 Type 2 diabetes mellitus with diabetic chronic kidney disease; N18.9 Chronic kidney disease, unspecified; I50.23 Acute on chronic systolic (congestive) heart failure; E83.40 Disorders of magnesium metabolism, unspecified; D64.9 Anemia, unspecified; I48.1 Persistent atrial fibrillation; I25.10 Atherosclerotic heart disease of native coronary artery without angina pectoris; I25.2 Old myocardial infarction; K21.9 Gastro-esophageal reflux disease without esophagitis; J44.9 Chronic obstructive pulmonary disease, unspecified; E78.5 Hyperlipidemia, unspecified; E03.9 Hypothyroidism, unspecified; E78.00 Pure hypercholesterolemia, unspecified; F31.9 Bipolar disorder, unspecified; Z79.899 Other long term (current) drug therapy; Z95.810 Presence of automatic (implantable) cardiac defibrillator; Z98.61 Coronary angioplasty status
CPT/HCPCS: 36415; 80053; 83735; 83880; 85025; 96365; 96366; G0463; J1642

== ENCOUNTER → 2018-06-18 | Outpatient (CLI) | payer OTHER ==
[2018-06-18] VITALS (10 sets, daily range): BP systolic 93–115; BP diastolic 54–66
[~2018-06-18] MED LIST changes: +DOBUTamine 1000MCG/ML 250 ML IV ONE
== END | disposition home or self-care (01) ==
LOC: CHF HDHVI 07:50
PROVIDERS: ATTEND Internal Medicine Cardiovascular Disease
DX: I13.0 Hypertensive heart and chronic kidney disease with heart failure and stage 1 through stage 4 chronic kidney disease, or unspecified chronic kidney disease (principal); E11.22 Type 2 diabetes mellitus with diabetic chronic kidney disease; N18.9 Chronic kidney disease, unspecified; I50.23 Acute on chronic systolic (congestive) heart failure; D63.1 Anemia in chronic kidney disease; I25.10 Atherosclerotic heart disease of native coronary artery without angina pectoris; J44.9 Chronic obstructive pulmonary disease, unspecified; I48.1 Persistent atrial fibrillation; I25.2 Old myocardial infarction; K21.9 Gastro-esophageal reflux disease without esophagitis; E78.00 Pure hypercholesterolemia, unspecified; E03.9 Hypothyroidism, unspecified; E78.5 Hyperlipidemia, unspecified; F31.9 Bipolar disorder, unspecified; Z98.61 Coronary angioplasty status; Z95.810 Presence of automatic (implantable) cardiac defibrillator; Z95.1 Presence of aortocoronary bypass graft
CPT/HCPCS: 96365; 96366; G0463; J1250; J1642

== ENCOUNTER → 2018-06-25 | Outpatient (CLI) | payer OTHER ==
[2018-06-25] VITALS (10 sets, daily range): BP systolic 88–118; BP diastolic 42–71
[~2018-06-25] VITALS: Ht 30.5 cm; Wt 89.8 kg
[~2018-06-25] MED LIST changes: +CYANOCOBALAMIN (B-12) 1000 MCG/1 ML VIAL IM ONE; +CYANOCOBALAMIN (B-12) 1000 MCG/1 ML VIAL ONE
== END | disposition home or self-care (01) ==
LOC: CHF HDHVI 07:52
PROVIDERS: ATTEND Internal Medicine Cardiovascular Disease
DX: I13.0 Hypertensive heart and chronic kidney disease with heart failure and stage 1 through stage 4 chronic kidney disease, or unspecified chronic kidney disease (principal); E11.22 Type 2 diabetes mellitus with diabetic chronic kidney disease; N18.9 Chronic kidney disease, unspecified; I50.23 Acute on chronic systolic (congestive) heart failure; R53.83 Other fatigue; I48.1 Persistent atrial fibrillation; K21.9 Gastro-esophageal reflux disease without esophagitis; I25.10 Atherosclerotic heart disease of native coronary artery without angina pectoris; E78.5 Hyperlipidemia, unspecified; E03.9 Hypothyroidism, unspecified; I25.2 Old myocardial infarction; E78.00 Pure hypercholesterolemia, unspecified; J44.9 Chronic obstructive pulmonary disease, unspecified; Z95.1 Presence of aortocoronary bypass graft; Z95.810 Presence of automatic (implantable) cardiac defibrillator; Z98.61 Coronary angioplasty status
CPT/HCPCS: 96365; 96366; 96372; G0463; J1250; J3420

== ENCOUNTER → 2018-06-27 | Outpatient (CLI) | payer OTHER ==
[2018-06-27] VITALS (9 sets, daily range): BP systolic 97–123; BP diastolic 53–72
[~2018-06-27] MED LIST changes: -CYANOCOBALAMIN (B-12) 1000 MCG/1 ML VIAL IM ONE; -CYANOCOBALAMIN (B-12) 1000 MCG/1 ML VIAL ONE
== END | disposition home or self-care (01) ==
LOC: CHF HDHVI 07:51
PROVIDERS: ATTEND Internal Medicine Cardiovascular Disease
DX: I13.0 Hypertensive heart and chronic kidney disease with heart failure and stage 1 through stage 4 chronic kidney disease, or unspecified chronic kidney disease (principal); E11.22 Type 2 diabetes mellitus with diabetic chronic kidney disease; N18.9 Chronic kidney disease, unspecified; I50.23 Acute on chronic systolic (congestive) heart failure; D63.1 Anemia in chronic kidney disease; I25.10 Atherosclerotic heart disease of native coronary artery without angina pectoris; I25.2 Old myocardial infarction; I48.1 Persistent atrial fibrillation; K21.9 Gastro-esophageal reflux disease without esophagitis; J44.9 Chronic obstructive pulmonary disease, unspecified; E78.5 Hyperlipidemia, unspecified; E03.9 Hypothyroidism, unspecified; E78.00 Pure hypercholesterolemia, unspecified; Z79.899 Other long term (current) drug therapy; Z95.810 Presence of automatic (implantable) cardiac defibrillator; Z95.1 Presence of aortocoronary bypass graft
CPT/HCPCS: 96365; 96366; G0463; J1250; 96367

== ENCOUNTER → 2018-06-29 | Outpatient (CLI) | payer OTHER ==
[2018-06-29] VITALS (10 sets, daily range): BP systolic 100–114; BP diastolic 53–70
== END | disposition home or self-care (01) ==
LOC: CHF HDHVI 08:18
PROVIDERS: ATTEND Internal Medicine Cardiovascular Disease
DX: I13.0 Hypertensive heart and chronic kidney disease with heart failure and stage 1 through stage 4 chronic kidney disease, or unspecified chronic kidney disease (principal); E11.22 Type 2 diabetes mellitus with diabetic chronic kidney disease; N18.9 Chronic kidney disease, unspecified; I50.23 Acute on chronic systolic (congestive) heart failure; D63.1 Anemia in chronic kidney disease; I48.1 Persistent atrial fibrillation; I25.10 Atherosclerotic heart disease of native coronary artery without angina pectoris; I25.2 Old myocardial infarction; J44.9 Chronic obstructive pulmonary disease, unspecified; K21.9 Gastro-esophageal reflux disease without esophagitis; E78.5 Hyperlipidemia, unspecified; E03.9 Hypothyroidism, unspecified; E78.00 Pure hypercholesterolemia, unspecified; F31.9 Bipolar disorder, unspecified; Z79.899 Other long term (current) drug therapy; Z95.1 Presence of aortocoronary bypass graft; Z85.038 Personal history of other malignant neoplasm of large intestine; Z98.61 Coronary angioplasty status; Z95.810 Presence of automatic (implantable) cardiac defibrillator
CPT/HCPCS: 96365; 96366; G0463; J1250

== ENCOUNTER → 2018-07-02 | Outpatient (CLI) | payer OTHER ==
[2018-07-02] VITALS (8 sets, daily range): BP systolic 97–115; BP diastolic 41–70
== END | disposition home or self-care (01) ==
LOC: CHF HDHVI 07:53
PROVIDERS: ATTEND Internal Medicine Cardiovascular Disease
DX: I13.0 Hypertensive heart and chronic kidney disease with heart failure and stage 1 through stage 4 chronic kidney disease, or unspecified chronic kidney disease (principal); E11.22 Type 2 diabetes mellitus with diabetic chronic kidney disease; N18.9 Chronic kidney disease, unspecified; I50.23 Acute on chronic systolic (congestive) heart failure; D63.1 Anemia in chronic kidney disease; J44.9 Chronic obstructive pulmonary disease, unspecified; I25.10 Atherosclerotic heart disease of native coronary artery without angina pectoris; F31.9 Bipolar disorder, unspecified; K21.9 Gastro-esophageal reflux disease without esophagitis; E78.5 Hyperlipidemia, unspecified; E03.9 Hypothyroidism, unspecified; I25.2 Old myocardial infarction; I48.91 Unspecified atrial fibrillation; Z79.899 Other long term (current) drug therapy; Z95.1 Presence of aortocoronary bypass graft; Z85.038 Personal history of other malignant neoplasm of large intestine; Z95.810 Presence of automatic (implantable) cardiac defibrillator; Z86.73 Personal history of transient ischemic attack (TIA), and cerebral infarction without residual deficits
CPT/HCPCS: 96365; 96366; G0463; J1250

== ENCOUNTER → 2018-07-04 | Outpatient (CLI) | payer OTHER ==
[2018-07-04] VITALS (9 sets, daily range): BP systolic 99–120; BP diastolic 50–73
[2018-07-04 12:26] LABS: Basophils # (auto) 0 uL; Basophils % (auto) 0.6 % (0.0-2.0); Eosinophils # (auto) 0.2 uL; Hematocrit 43.9 % (41.0-53.0); Hemoglobin 15.3 g/dL (13.5-17.5); Lymphocytes # (auto) 1.4 uL; Mean Corpuscular Hemoglobin 34.1 pg (28.0-32.0); Mean Corpuscular Hgb Conc. 34.7 g/dL (32.0-36.0); Mean Corpuscular Volume 98.3 fL (80.0-100.0); Monocytes # (auto) 0.6 uL; Monocytes % (auto) 14.4 % (0.0-12.0); Neutrophils # (auto) 1.9 uL; Nucleated Red Blood Cells % 0.7 %; Platelet Count (auto) 142 10^3/uL (140-450); Red Blood Cells 4.47 10^6/uL (4.5-5.90); Red Cell Distribution Width 13.4 % (11.8-14.3)
[2018-07-04 12:45] LABS: BUN/Creatinine Ratio 12.5; Calcium 9.2 mg/dL (8.5-10.1)
== END | disposition home or self-care (01) ==
LOC: CHF HDHVI 08:02
PROVIDERS: ATTEND Internal Medicine Cardiovascular Disease
DX: I13.0 Hypertensive heart and chronic kidney disease with heart failure and stage 1 through stage 4 chronic kidney disease, or unspecified chronic kidney disease (principal); I50.23 Acute on chronic systolic (congestive) heart failure; N18.9 Chronic kidney disease, unspecified; D63.1 Anemia in chronic kidney disease; J44.9 Chronic obstructive pulmonary disease, unspecified; E78.5 Hyperlipidemia, unspecified; E03.9 Hypothyroidism, unspecified; I25.2 Old myocardial infarction; E11.22 Type 2 diabetes mellitus with diabetic chronic kidney disease; E78.00 Pure hypercholesterolemia, unspecified; I48.1 Persistent atrial fibrillation; Z79.899 Other long term (current) drug therapy; Z95.810 Presence of automatic (implantable) cardiac defibrillator
CPT/HCPCS: 36415; 80048; 83880; 85025; 96365; 96366; G0463; J1250

== ENCOUNTER → 2018-07-06 | Outpatient (CLI) | payer OTHER ==
[2018-07-06] VITALS (10 sets, daily range): BP systolic 110–130; BP diastolic 59–82
[~2018-07-06] VITALS: Ht 30.5 cm; Wt 90.0 kg
[~2018-07-06] MED LIST changes: +DOBUTamine 1000MCG/ML 250 ML IV SCH
== END | disposition home or self-care (01) ==
LOC: CHF HDHVI 08:14
PROVIDERS: ATTEND Internal Medicine Cardiovascular Disease
DX: I13.0 Hypertensive heart and chronic kidney disease with heart failure and stage 1 through stage 4 chronic kidney disease, or unspecified chronic kidney disease (principal); I50.23 Acute on chronic systolic (congestive) heart failure; N18.9 Chronic kidney disease, unspecified; D63.1 Anemia in chronic kidney disease; J44.9 Chronic obstructive pulmonary disease, unspecified; E78.5 Hyperlipidemia, unspecified; E03.9 Hypothyroidism, unspecified; I25.2 Old myocardial infarction; I48.1 Persistent atrial fibrillation; E78.00 Pure hypercholesterolemia, unspecified; I25.10 Atherosclerotic heart disease of native coronary artery without angina pectoris; K21.9 Gastro-esophageal reflux disease without esophagitis; E11.22 Type 2 diabetes mellitus with diabetic chronic kidney disease; Z95.1 Presence of aortocoronary bypass graft; Z95.810 Presence of automatic (implantable) cardiac defibrillator; Z79.899 Other long term (current) drug therapy
CPT/HCPCS: 96365; 96366; G0463; J1250; J1642

== ENCOUNTER → 2018-07-09 | Outpatient (CLI) | payer OTHER ==
[2018-07-09] VITALS (9 sets, daily range): BP systolic 94–113; BP diastolic 50–71
[~2018-07-09] MED LIST changes: -DOBUTamine 1000MCG/ML 250 ML IV SCH
== END | disposition home or self-care (01) ==
LOC: CHF HDHVI 08:16
PROVIDERS: ATTEND Internal Medicine Cardiovascular Disease
DX: I13.0 Hypertensive heart and chronic kidney disease with heart failure and stage 1 through stage 4 chronic kidney disease, or unspecified chronic kidney disease (principal); N18.9 Chronic kidney disease, unspecified; I50.23 Acute on chronic systolic (congestive) heart failure; E11.22 Type 2 diabetes mellitus with diabetic chronic kidney disease; I25.10 Atherosclerotic heart disease of native coronary artery without angina pectoris; D63.1 Anemia in chronic kidney disease; K21.9 Gastro-esophageal reflux disease without esophagitis; E78.5 Hyperlipidemia, unspecified; E03.9 Hypothyroidism, unspecified; I25.2 Old myocardial infarction; I48.1 Persistent atrial fibrillation; E78.00 Pure hypercholesterolemia, unspecified; Z95.1 Presence of aortocoronary bypass graft; Z95.810 Presence of automatic (implantable) cardiac defibrillator; Z79.899 Other long term (current) drug therapy
CPT/HCPCS: 96365; 96366; G0463; J1250; J1642

== ENCOUNTER → 2018-07-11 | Outpatient (CLI) | payer OTHER ==
[~2018-07-11] VITALS: Ht 30.5 cm; Wt 91.2 kg
[2018-07-11 11:00] VITALS: BP 108/63
== END | disposition home or self-care (01) ==
LOC: CHF HDHVI 07:58
PROVIDERS: ATTEND Internal Medicine Cardiovascular Disease
DX: I25.10 Atherosclerotic heart disease of native coronary artery without angina pectoris (principal); I13.0 Hypertensive heart and chronic kidney disease with heart failure and stage 1 through stage 4 chronic kidney disease, or unspecified chronic kidney disease; E11.22 Type 2 diabetes mellitus with diabetic chronic kidney disease; N18.9 Chronic kidney disease, unspecified; I50.23 Acute on chronic systolic (congestive) heart failure; D63.1 Anemia in chronic kidney disease; I25.2 Old myocardial infarction; J44.9 Chronic obstructive pulmonary disease, unspecified; I48.91 Unspecified atrial fibrillation; K21.9 Gastro-esophageal reflux disease without esophagitis; E78.00 Pure hypercholesterolemia, unspecified; E78.5 Hyperlipidemia, unspecified; E03.9 Hypothyroidism, unspecified; Z79.899 Other long term (current) drug therapy; Z95.810 Presence of automatic (implantable) cardiac defibrillator; Z95.1 Presence of aortocoronary bypass graft; Z98.61 Coronary angioplasty status; Z85.038 Personal history of other malignant neoplasm of large intestine
CPT/HCPCS: 96365; 96366; G0463; J1250; J1642

== ENCOUNTER → 2018-07-13 | Outpatient (CLI) | payer OTHER ==
[2018-07-13] VITALS (8 sets, daily range): BP systolic 103–116; BP diastolic 57–71
[~2018-07-13] MED LIST changes: +BACITRACIN TOP OINT 1 UD PKG TOP ONE
== END | disposition home or self-care (01) ==
LOC: CHF HDHVI 07:50
PROVIDERS: ATTEND Internal Medicine Cardiovascular Disease
DX: I25.10 Atherosclerotic heart disease of native coronary artery without angina pectoris (principal); I42.9 Cardiomyopathy, unspecified; I13.0 Hypertensive heart and chronic kidney disease with heart failure and stage 1 through stage 4 chronic kidney disease, or unspecified chronic kidney disease; E11.22 Type 2 diabetes mellitus with diabetic chronic kidney disease; N18.9 Chronic kidney disease, unspecified; I50.23 Acute on chronic systolic (congestive) heart failure; I48.1 Persistent atrial fibrillation; I25.2 Old myocardial infarction; J44.9 Chronic obstructive pulmonary disease, unspecified; K21.9 Gastro-esophageal reflux disease without esophagitis; E78.5 Hyperlipidemia, unspecified; E03.9 Hypothyroidism, unspecified; E78.00 Pure hypercholesterolemia, unspecified; F31.9 Bipolar disorder, unspecified; Z79.899 Other long term (current) drug therapy; Z95.1 Presence of aortocoronary bypass graft; Z86.73 Personal history of transient ischemic attack (TIA), and cerebral infarction without residual deficits; Z98.61 Coronary angioplasty status; Z95.810 Presence of automatic (implantable) cardiac defibrillator
CPT/HCPCS: 96365; 96366; G0463; J1250; J1642

== ENCOUNTER → 2018-07-16 | Outpatient (CLI) | payer OTHER ==
[2018-07-16] VITALS (9 sets, daily range): BP systolic 103–139; BP diastolic 58–86
[~2018-07-16] MED LIST changes: -BACITRACIN TOP OINT 1 UD PKG TOP ONE; +CYANOCOBALAMIN (B-12) 1000 MCG/1 ML VIAL ONE
== END | disposition home or self-care (01) ==
LOC: CHF HDHVI 08:04
PROVIDERS: ATTEND Internal Medicine Cardiovascular Disease
DX: I25.10 Atherosclerotic heart disease of native coronary artery without angina pectoris (principal); I13.0 Hypertensive heart and chronic kidney disease with heart failure and stage 1 through stage 4 chronic kidney disease, or unspecified chronic kidney disease; E11.22 Type 2 diabetes mellitus with diabetic chronic kidney disease; N18.9 Chronic kidney disease, unspecified; I50.23 Acute on chronic systolic (congestive) heart failure; K21.9 Gastro-esophageal reflux disease without esophagitis; J44.9 Chronic obstructive pulmonary disease, unspecified; I48.1 Persistent atrial fibrillation; I25.2 Old myocardial infarction; E78.5 Hyperlipidemia, unspecified; E03.9 Hypothyroidism, unspecified; E78.00 Pure hypercholesterolemia, unspecified; F31.9 Bipolar disorder, unspecified; Z79.899 Other long term (current) drug therapy; Z95.810 Presence of automatic (implantable) cardiac defibrillator; Z98.61 Coronary angioplasty status
CPT/HCPCS: 96365; 96366; G0463; J1250; J1642

== ENCOUNTER → 2018-07-18 | Outpatient (CLI) | payer OTHER ==
[~2018-07-18] VITALS: Ht 30.5 cm; Wt 90.7 kg
[2018-07-18] VITALS (10 sets, daily range): BP systolic 107–124; BP diastolic 57–71
[~2018-07-18] MED LIST changes: -CYANOCOBALAMIN (B-12) 1000 MCG/1 ML VIAL ONE
== END | disposition home or self-care (01) ==
LOC: CHF HDHVI 07:52
PROVIDERS: ATTEND Internal Medicine Cardiovascular Disease
DX: I13.0 Hypertensive heart and chronic kidney disease with heart failure and stage 1 through stage 4 chronic kidney disease, or unspecified chronic kidney disease (principal); E11.22 Type 2 diabetes mellitus with diabetic chronic kidney disease; N18.9 Chronic kidney disease, unspecified; I50.23 Acute on chronic systolic (congestive) heart failure; I25.10 Atherosclerotic heart disease of native coronary artery without angina pectoris; J44.9 Chronic obstructive pulmonary disease, unspecified; K21.9 Gastro-esophageal reflux disease without esophagitis; E78.5 Hyperlipidemia, unspecified; E03.9 Hypothyroidism, unspecified; I25.2 Old myocardial infarction; I48.1 Persistent atrial fibrillation; E78.00 Pure hypercholesterolemia, unspecified; F31.9 Bipolar disorder, unspecified; Z79.899 Other long term (current) drug therapy; Z86.73 Personal history of transient ischemic attack (TIA), and cerebral infarction without residual deficits; Z95.1 Presence of aortocoronary bypass graft; Z85.038 Personal history of other malignant neoplasm of large intestine
CPT/HCPCS: 96365; 96366; G0463; J1250; J1642

== ENCOUNTER → 2018-07-20 | Outpatient (CLI) | payer OTHER ==
[2018-07-20] VITALS (9 sets, daily range): BP systolic 103–132; BP diastolic 52–77
== END | disposition home or self-care (01) ==
LOC: CHF HDHVI 07:40
PROVIDERS: ATTEND Internal Medicine Cardiovascular Disease
DX: I13.0 Hypertensive heart and chronic kidney disease with heart failure and stage 1 through stage 4 chronic kidney disease, or unspecified chronic kidney disease (principal); E11.22 Type 2 diabetes mellitus with diabetic chronic kidney disease; N18.3 Chronic kidney disease, stage 3 (moderate); I50.23 Acute on chronic systolic (congestive) heart failure; I48.91 Unspecified atrial fibrillation; I25.10 Atherosclerotic heart disease of native coronary artery without angina pectoris; I25.2 Old myocardial infarction; I48.1 Persistent atrial fibrillation; J44.9 Chronic obstructive pulmonary disease, unspecified; K21.9 Gastro-esophageal reflux disease without esophagitis; E78.5 Hyperlipidemia, unspecified; E03.9 Hypothyroidism, unspecified; E78.00 Pure hypercholesterolemia, unspecified; Z79.899 Other long term (current) drug therapy; Z95.810 Presence of automatic (implantable) cardiac defibrillator; Z95.1 Presence of aortocoronary bypass graft; Z86.73 Personal history of transient ischemic attack (TIA), and cerebral infarction without residual deficits; Z85.038 Personal history of other malignant neoplasm of large intestine; Z98.61 Coronary angioplasty status
CPT/HCPCS: 96365; 96366; G0463; J1250; J1642

== ENCOUNTER → 2018-07-23 | Outpatient (CLI) | payer OTHER ==
[2018-07-23 11:05] VITALS: BP 111/61
[2018-07-23 12:28] LABS: Basophils # (auto) 0 uL; Basophils % (auto) 0.7 % (0.0-2.0); Eosinophils # (auto) 0.1 uL; Eosinophils % (auto) 4.1 % (0.0-7.0); Hematocrit 40.8 % (41.0-53.0); Lymphocytes # (auto) 1.2 uL; Lymphocytes % (auto) 33.5 % (10.0-50.0); Mean Corpuscular Hemoglobin 33.8 pg (28.0-32.0); Mean Corpuscular Hgb Conc. 34.3 g/dL (32.0-36.0); Mean Corpuscular Volume 98.6 fL (80.0-100.0); Monocytes # (auto) 0.6 uL; Monocytes % (auto) 16.9 % (0.0-12.0); Neutrophils # (auto) 1.6 uL; Neutrophils % (auto) 44.8 % (37.0-80.0); Nucleated Red Blood Cells % 0.6 %; Platelet Count (auto) 152 10^3/uL (140-450); Red Blood Cells 4.14 10^6/uL (4.5-5.90); Red Cell Distribution Width 13.3 % (11.8-14.3); White Blood Cell 3.5 10^3/uL (4.4-10.8)
[2018-07-23 12:48] LABS: BUN/Creatinine Ratio 12.9; Calcium 8.5 mg/dL (8.5-10.1); Potassium 4.4 mmol/L (3.5-5.1)
== END | disposition home or self-care (01) ==
LOC: CHF HDHVI 08:02
PROVIDERS: ATTEND Internal Medicine Cardiovascular Disease
DX: I25.10 Atherosclerotic heart disease of native coronary artery without angina pectoris (principal); I48.91 Unspecified atrial fibrillation; I13.0 Hypertensive heart and chronic kidney disease with heart failure and stage 1 through stage 4 chronic kidney disease, or unspecified chronic kidney disease; E11.22 Type 2 diabetes mellitus with diabetic chronic kidney disease; N18.9 Chronic kidney disease, unspecified; I50.23 Acute on chronic systolic (congestive) heart failure; D63.1 Anemia in chronic kidney disease; J44.9 Chronic obstructive pulmonary disease, unspecified; I48.1 Persistent atrial fibrillation; I25.2 Old myocardial infarction; K21.9 Gastro-esophageal reflux disease without esophagitis; E78.5 Hyperlipidemia, unspecified; E03.9 Hypothyroidism, unspecified; E78.00 Pure hypercholesterolemia, unspecified; Z79.899 Other long term (current) drug therapy; Z95.810 Presence of automatic (implantable) cardiac defibrillator; Z95.1 Presence of aortocoronary bypass graft; Z98.61 Coronary angioplasty status
CPT/HCPCS: 36415; 80048; 83880; 85025; 96365; 96366; G0463; J1250; J1642

== ENCOUNTER → 2018-07-25 | Outpatient (CLI) | payer OTHER ==
[2018-07-25] VITALS (9 sets, daily range): BP systolic 102–132; BP diastolic 54–77
[~2018-07-25] MED LIST changes: +CYANOCOBALAMIN (B-12) 1000 MCG/1 ML VIAL IM ONE; +CYANOCOBALAMIN (B-12) 1000 MCG/1 ML VIAL ONE
== END | disposition home or self-care (01) ==
LOC: CHF HDHVI 08:10
PROVIDERS: ATTEND Internal Medicine Cardiovascular Disease
DX: I13.0 Hypertensive heart and chronic kidney disease with heart failure and stage 1 through stage 4 chronic kidney disease, or unspecified chronic kidney disease (principal); E11.22 Type 2 diabetes mellitus with diabetic chronic kidney disease; N18.9 Chronic kidney disease, unspecified; I50.23 Acute on chronic systolic (congestive) heart failure; D63.1 Anemia in chronic kidney disease; I25.10 Atherosclerotic heart disease of native coronary artery without angina pectoris; I48.1 Persistent atrial fibrillation; I25.2 Old myocardial infarction; J44.9 Chronic obstructive pulmonary disease, unspecified; K21.9 Gastro-esophageal reflux disease without esophagitis; E78.00 Pure hypercholesterolemia, unspecified; E78.5 Hyperlipidemia, unspecified; E03.9 Hypothyroidism, unspecified; Z79.899 Other long term (current) drug therapy; Z95.1 Presence of aortocoronary bypass graft; Z95.810 Presence of automatic (implantable) cardiac defibrillator; Z86.73 Personal history of transient ischemic attack (TIA), and cerebral infarction without residual deficits; Z98.61 Coronary angioplasty status
CPT/HCPCS: 93701; 96365; 96366; 96372; G0463; J1250; J1642; J3420

== ENCOUNTER → 2018-08-01 | Outpatient (CLI) | payer OTHER ==
[2018-08-01] VITALS (10 sets, daily range): BP systolic 102–131; BP diastolic 55–68
[~2018-08-01] MED LIST changes: -CYANOCOBALAMIN (B-12) 1000 MCG/1 ML VIAL IM ONE; -CYANOCOBALAMIN (B-12) 1000 MCG/1 ML VIAL ONE
[2018-08-01 12:39] LABS: Hematocrit 38.3 % (41.0-53.0); Hemoglobin 13.3 g/dL (13.5-17.5); Mean Corpuscular Hemoglobin 33.9 pg (28.0-32.0); Mean Corpuscular Hgb Conc. 34.7 g/dL (32.0-36.0); Mean Corpuscular Volume 97.6 fL (80.0-100.0); Platelet Count (auto) 145 10^3/uL (140-450); Red Blood Cells 3.93 10^6/uL (4.5-5.90); Red Cell Distribution Width 13.2 % (11.8-14.3); White Blood Cell 3.1 10^3/uL (4.4-10.8)
[2018-08-01 12:44] LABS: Band Neutrophils % (manual) 0; Basophils % (manual) 0 (0.0-2.0); Blast Cells 0; Metamyelocytes % 0; Myelocytes % 0; Promyelocytes % 0
[2018-08-01 12:46] LABS: BUN/Creatinine Ratio 12.4; Calcium 8.5 mg/dL (8.5-10.1)
[2018-08-01 13:49] LABS: Eosinophils % (manual) 1 (0-7); Lymphocytes % (manual) 39 (10.0-50.0); Monocytes % (manual) 14 (0-12); Reactive Lymphocytes 1
== END | disposition home or self-care (01) ==
LOC: CHF HDHVI 08:16
PROVIDERS: ATTEND Internal Medicine Cardiovascular Disease
DX: I13.0 Hypertensive heart and chronic kidney disease with heart failure and stage 1 through stage 4 chronic kidney disease, or unspecified chronic kidney disease (principal); E11.22 Type 2 diabetes mellitus with diabetic chronic kidney disease; N18.3 Chronic kidney disease, stage 3 (moderate); I50.23 Acute on chronic systolic (congestive) heart failure; D63.1 Anemia in chronic kidney disease; I48.1 Persistent atrial fibrillation; R53.83 Other fatigue; I25.10 Atherosclerotic heart disease of native coronary artery without angina pectoris; I25.2 Old myocardial infarction; J44.9 Chronic obstructive pulmonary disease, unspecified; K21.9 Gastro-esophageal reflux disease without esophagitis; E78.5 Hyperlipidemia, unspecified; E03.9 Hypothyroidism, unspecified; E78.00 Pure hypercholesterolemia, unspecified; F31.9 Bipolar disorder, unspecified; Z79.899 Other long term (current) drug therapy; Z95.1 Presence of aortocoronary bypass graft; Z98.61 Coronary angioplasty status; Z95.810 Presence of automatic (implantable) cardiac defibrillator
CPT/HCPCS: 36415; 80048; 83880; 85007; 85027; 96365; 96366; G0463; J1250; J1642

== ENCOUNTER → 2018-08-03 | Outpatient (CLI) | payer OTHER ==
[2018-08-03] VITALS (8 sets, daily range): BP systolic 112–138; BP diastolic 62–76
== END | disposition home or self-care (01) ==
LOC: CHF HDHVI 08:41
PROVIDERS: ATTEND Internal Medicine Cardiovascular Disease
DX: E11.22 Type 2 diabetes mellitus with diabetic chronic kidney disease (principal); I13.0 Hypertensive heart and chronic kidney disease with heart failure and stage 1 through stage 4 chronic kidney disease, or unspecified chronic kidney disease; N18.3 Chronic kidney disease, stage 3 (moderate); I50.23 Acute on chronic systolic (congestive) heart failure; D63.1 Anemia in chronic kidney disease; I25.10 Atherosclerotic heart disease of native coronary artery without angina pectoris; F31.9 Bipolar disorder, unspecified; J44.9 Chronic obstructive pulmonary disease, unspecified; K21.9 Gastro-esophageal reflux disease without esophagitis; E78.5 Hyperlipidemia, unspecified; E03.9 Hypothyroidism, unspecified; E78.00 Pure hypercholesterolemia, unspecified; I48.0 Paroxysmal atrial fibrillation; I25.2 Old myocardial infarction; Z95.1 Presence of aortocoronary bypass graft; Z95.810 Presence of automatic (implantable) cardiac defibrillator; Z79.899 Other long term (current) drug therapy
CPT/HCPCS: 96365; 96366; G0463; J1250; J1642

== ENCOUNTER → 2018-08-06 | Outpatient (CLI) | payer OTHER ==
[2018-08-06] VITALS (7 sets, daily range): BP systolic 101–118; BP diastolic 52–67
== END | disposition home or self-care (01) ==
LOC: CHF HDHVI 07:51
PROVIDERS: ATTEND Internal Medicine Cardiovascular Disease
DX: E11.22 Type 2 diabetes mellitus with diabetic chronic kidney disease (principal); I13.0 Hypertensive heart and chronic kidney disease with heart failure and stage 1 through stage 4 chronic kidney disease, or unspecified chronic kidney disease; N18.3 Chronic kidney disease, stage 3 (moderate); I50.23 Acute on chronic systolic (congestive) heart failure; D63.1 Anemia in chronic kidney disease; I25.10 Atherosclerotic heart disease of native coronary artery without angina pectoris; F31.9 Bipolar disorder, unspecified; J44.9 Chronic obstructive pulmonary disease, unspecified; K21.9 Gastro-esophageal reflux disease without esophagitis; E78.5 Hyperlipidemia, unspecified; E03.9 Hypothyroidism, unspecified; E78.00 Pure hypercholesterolemia, unspecified; I48.91 Unspecified atrial fibrillation; I25.2 Old myocardial infarction
CPT/HCPCS: 93005; 96365; 96366; G0463; J1250; J1642

== ENCOUNTER → 2018-08-08 | Outpatient (CLI) | payer OTHER ==
[~2018-08-08] VITALS: Ht 30.5 cm; Wt 90.7 kg
[2018-08-08] VITALS (9 sets, daily range): BP systolic 92–117; BP diastolic 54–73
[2018-08-08 12:57] LABS: Basophils # (auto) 0 uL; Basophils % (auto) 0.8 % (0.0-2.0); Eosinophils # (auto) 0.2 uL; Eosinophils % (auto) 6.3 % (0.0-7.0); Lymphocytes # (auto) 1.1 uL; Lymphocytes % (auto) 30.8 % (10.0-50.0); Mean Corpuscular Hemoglobin 33.8 pg (28.0-32.0); Mean Corpuscular Volume 99.3 fL (80.0-100.0); Monocytes # (auto) 0.6 uL; Monocytes % (auto) 16.2 % (0.0-12.0); Neutrophils # (auto) 1.6 uL; Neutrophils % (auto) 45.9 % (37.0-80.0); Nucleated Red Blood Cells % 0.1 %; Platelet Count (auto) 145 10^3/uL (140-450); Red Blood Cells 4.13 10^6/uL (4.5-5.90); Red Cell Distribution Width 13.3 % (11.8-14.3); White Blood Cell 3.6 10^3/uL (4.4-10.8)
[2018-08-08 13:30] LABS: BUN/Creatinine Ratio 12.3; Calcium 8.6 mg/dL (8.5-10.1); Potassium 4.5 mmol/L (3.5-5.1)
== END | disposition home or self-care (01) ==
LOC: CHF HDHVI 07:54
PROVIDERS: ATTEND Internal Medicine Cardiovascular Disease
DX: I13.0 Hypertensive heart and chronic kidney disease with heart failure and stage 1 through stage 4 chronic kidney disease, or unspecified chronic kidney disease (principal); E11.22 Type 2 diabetes mellitus with diabetic chronic kidney disease; N18.3 Chronic kidney disease, stage 3 (moderate); I50.23 Acute on chronic systolic (congestive) heart failure; D63.1 Anemia in chronic kidney disease; E78.5 Hyperlipidemia, unspecified; E03.9 Hypothyroidism, unspecified; E78.00 Pure hypercholesterolemia, unspecified; I48.91 Unspecified atrial fibrillation; I25.10 Atherosclerotic heart disease of native coronary artery without angina pectoris; I25.2 Old myocardial infarction; J44.9 Chronic obstructive pulmonary disease, unspecified; K21.9 Gastro-esophageal reflux disease without esophagitis; F31.9 Bipolar disorder, unspecified; Z95.1 Presence of aortocoronary bypass graft; Z79.899 Other long term (current) drug therapy; Z86.73 Personal history of transient ischemic attack (TIA), and cerebral infarction without residual deficits; Z85.038 Personal history of other malignant neoplasm of large intestine; Z95.810 Presence of automatic (implantable) cardiac defibrillator
CPT/HCPCS: 36415; 80048; 83880; 85025; 96365; 96366; G0463; J1250; J1642

== ENCOUNTER → 2018-08-10 | Outpatient (CLI) | payer OTHER ==
[2018-08-10] VITALS (10 sets, daily range): BP systolic 98–128; BP diastolic 52–73
[~2018-08-10] VITALS: Ht 30.5 cm; Wt 41.3 kg
[~2018-08-10] MED LIST changes: +KETOROLAC TROMETH 30 MG/ML 1ML VIAL IV ONE; +KETOROLAC TROMETH 60MG/2ML VIAL IM ONE
== END | disposition home or self-care (01) ==
LOC: CHF HDHVI 07:53
PROVIDERS: ATTEND Internal Medicine Cardiovascular Disease
DX: E11.22 Type 2 diabetes mellitus with diabetic chronic kidney disease (principal); I13.0 Hypertensive heart and chronic kidney disease with heart failure and stage 1 through stage 4 chronic kidney disease, or unspecified chronic kidney disease; N18.3 Chronic kidney disease, stage 3 (moderate); I50.23 Acute on chronic systolic (congestive) heart failure; D63.1 Anemia in chronic kidney disease; I25.10 Atherosclerotic heart disease of native coronary artery without angina pectoris; F31.9 Bipolar disorder, unspecified; J44.9 Chronic obstructive pulmonary disease, unspecified; E78.5 Hyperlipidemia, unspecified; E03.9 Hypothyroidism, unspecified; I25.2 Old myocardial infarction; I48.0 Paroxysmal atrial fibrillation; E78.00 Pure hypercholesterolemia, unspecified; Z95.810 Presence of automatic (implantable) cardiac defibrillator; Z79.899 Other long term (current) drug therapy
CPT/HCPCS: 96365; 96366; 96372; 96375; G0463; J1250; J1642; J1885

== ENCOUNTER → 2018-08-13 | Outpatient (CLI) | payer OTHER ==
[2018-08-13] VITALS (10 sets, daily range): BP systolic 94–118; BP diastolic 51–72
[~2018-08-13] MED LIST changes: -KETOROLAC TROMETH 30 MG/ML 1ML VIAL IV ONE; -KETOROLAC TROMETH 60MG/2ML VIAL IM ONE
== END | disposition home or self-care (01) ==
LOC: CHF HDHVI 07:59
PROVIDERS: ATTEND Internal Medicine Cardiovascular Disease
DX: I13.0 Hypertensive heart and chronic kidney disease with heart failure and stage 1 through stage 4 chronic kidney disease, or unspecified chronic kidney disease (principal); E11.22 Type 2 diabetes mellitus with diabetic chronic kidney disease; N18.3 Chronic kidney disease, stage 3 (moderate); I50.23 Acute on chronic systolic (congestive) heart failure; D63.1 Anemia in chronic kidney disease; I25.10 Atherosclerotic heart disease of native coronary artery without angina pectoris; J44.9 Chronic obstructive pulmonary disease, unspecified; K21.9 Gastro-esophageal reflux disease without esophagitis; E78.5 Hyperlipidemia, unspecified; E03.9 Hypothyroidism, unspecified; I25.2 Old myocardial infarction; I48.1 Persistent atrial fibrillation; F31.9 Bipolar disorder, unspecified; E78.00 Pure hypercholesterolemia, unspecified; Z79.899 Other long term (current) drug therapy; Z95.1 Presence of aortocoronary bypass graft; Z95.810 Presence of automatic (implantable) cardiac defibrillator; Z86.73 Personal history of transient ischemic attack (TIA), and cerebral infarction without residual deficits; Z98.61 Coronary angioplasty status; Z85.038 Personal history of other malignant neoplasm of large intestine
CPT/HCPCS: 96365; 96366; G0463; J1250; J1642

== ENCOUNTER → 2018-08-15 | Outpatient (CLI) | payer OTHER ==
[2018-08-15] VITALS (8 sets, daily range): BP systolic 86–119; BP diastolic 50–71
[~2018-08-15] MED LIST changes: +D5W/SOD CHL 0.45%/KCL 40MEQ 1,000 ML IV ONE
[2018-08-15 13:07] LABS: Potassium 4.3 mmol/L (3.5-5.1)
== END | disposition home or self-care (01) ==
LOC: CHF HDHVI 08:00
PROVIDERS: ATTEND Internal Medicine Cardiovascular Disease
DX: I13.0 Hypertensive heart and chronic kidney disease with heart failure and stage 1 through stage 4 chronic kidney disease, or unspecified chronic kidney disease (principal); E11.22 Type 2 diabetes mellitus with diabetic chronic kidney disease; N18.3 Chronic kidney disease, stage 3 (moderate); I50.23 Acute on chronic systolic (congestive) heart failure; D63.1 Anemia in chronic kidney disease; I25.10 Atherosclerotic heart disease of native coronary artery without angina pectoris; F31.9 Bipolar disorder, unspecified; K21.9 Gastro-esophageal reflux disease without esophagitis; E78.5 Hyperlipidemia, unspecified; E03.9 Hypothyroidism, unspecified; I25.2 Old myocardial infarction; I48.1 Persistent atrial fibrillation; E78.00 Pure hypercholesterolemia, unspecified; Z95.1 Presence of aortocoronary bypass graft; Z86.73 Personal history of transient ischemic attack (TIA), and cerebral infarction without residual deficits; Z95.810 Presence of automatic (implantable) cardiac defibrillator; Z85.038 Personal history of other malignant neoplasm of large intestine; Z98.61 Coronary angioplasty status; Z79.899 Other long term (current) drug therapy
CPT/HCPCS: 36415; 82565; 83880; 84132; 84520; 96365; 96366; G0463; J1250; J1642

== ENCOUNTER → 2018-08-17 | Outpatient (CLI) | payer OTHER ==
[2018-08-17] VITALS (8 sets, daily range): BP systolic 97–125; BP diastolic 53–72
[~2018-08-17] MED LIST changes: -D5W/SOD CHL 0.45%/KCL 40MEQ 1,000 ML IV ONE
== END | disposition home or self-care (01) ==
LOC: CHF HDHVI 08:01
PROVIDERS: ATTEND Internal Medicine Cardiovascular Disease
DX: I13.0 Hypertensive heart and chronic kidney disease with heart failure and stage 1 through stage 4 chronic kidney disease, or unspecified chronic kidney disease (principal); E11.22 Type 2 diabetes mellitus with diabetic chronic kidney disease; N18.3 Chronic kidney disease, stage 3 (moderate); I50.23 Acute on chronic systolic (congestive) heart failure; D63.1 Anemia in chronic kidney disease; I25.10 Atherosclerotic heart disease of native coronary artery without angina pectoris; J44.9 Chronic obstructive pulmonary disease, unspecified; K21.9 Gastro-esophageal reflux disease without esophagitis; E78.5 Hyperlipidemia, unspecified; E03.9 Hypothyroidism, unspecified; I25.2 Old myocardial infarction; I48.1 Persistent atrial fibrillation; F31.9 Bipolar disorder, unspecified; E78.00 Pure hypercholesterolemia, unspecified; Z79.899 Other long term (current) drug therapy; Z95.1 Presence of aortocoronary bypass graft; Z95.810 Presence of automatic (implantable) cardiac defibrillator; Z86.73 Personal history of transient ischemic attack (TIA), and cerebral infarction without residual deficits; Z98.61 Coronary angioplasty status; Z85.038 Personal history of other malignant neoplasm of large intestine
CPT/HCPCS: 96365; 96366; G0463; J1250; J1642

== ENCOUNTER → 2018-08-20 | Outpatient (CLI) | payer OTHER ==
[2018-08-20] VITALS (7 sets, daily range): BP systolic 106–124; BP diastolic 56–77
[~2018-08-20] MED LIST changes: +CYANOCOBALAMIN (B-12) 1000 MCG/1 ML VIAL IM ONE; +CYANOCOBALAMIN (B-12) 1000 MCG/1 ML VIAL ONE
[2018-08-20 13:35] LABS: Magnesium 2.6 mg/dL (1.6-2.6); Potassium 4.3 mmol/L (3.5-5.1)
== END | disposition home or self-care (01) ==
LOC: CHF HDHVI 08:07
PROVIDERS: ATTEND Internal Medicine Cardiovascular Disease
DX: I13.0 Hypertensive heart and chronic kidney disease with heart failure and stage 1 through stage 4 chronic kidney disease, or unspecified chronic kidney disease (principal); E11.22 Type 2 diabetes mellitus with diabetic chronic kidney disease; N18.3 Chronic kidney disease, stage 3 (moderate); I50.23 Acute on chronic systolic (congestive) heart failure; D63.1 Anemia in chronic kidney disease; D51.9 Vitamin B12 deficiency anemia, unspecified; E55.9 Vitamin D deficiency, unspecified; R94.4 Abnormal results of kidney function studies; E87.5 Hyperkalemia; I25.10 Atherosclerotic heart disease of native coronary artery without angina pectoris; J44.9 Chronic obstructive pulmonary disease, unspecified; F31.9 Bipolar disorder, unspecified; K21.9 Gastro-esophageal reflux disease without esophagitis; E78.5 Hyperlipidemia, unspecified; E03.9 Hypothyroidism, unspecified; I25.2 Old myocardial infarction; I48.1 Persistent atrial fibrillation; E78.00 Pure hypercholesterolemia, unspecified; Z79.899 Other long term (current) drug therapy; Z98.61 Coronary angioplasty status; Z95.1 Presence of aortocoronary bypass graft; Z95.810 Presence of automatic (implantable) cardiac defibrillator; Z86.73 Personal history of transient ischemic attack (TIA), and cerebral infarction without residual deficits; Z85.038 Personal history of other malignant neoplasm of large intestine
CPT/HCPCS: 36415; 82306; 82565; 83735; 83880; 84132; 84520; 93005; 96365; 96366; 96372; G0463; J1250; J1642; J3420

== ENCOUNTER → 2018-08-22 | Outpatient (CLI) | payer OTHER ==
[~2018-08-22] MED LIST changes: -CYANOCOBALAMIN (B-12) 1000 MCG/1 ML VIAL IM ONE; -CYANOCOBALAMIN (B-12) 1000 MCG/1 ML VIAL ONE
[2018-08-22 08:00] VITALS: BP 102/58
[2018-08-22 08:17] VITALS: BP 94/56
[2018-08-22 08:30] VITALS: BP 87/52
[2018-08-22 08:45] VITALS: BP 96/56
[2018-08-22 10:50] VITALS: BP 124/77
== END | disposition home or self-care (01) ==
LOC: CHF HDHVI 08:06
PROVIDERS: ATTEND Internal Medicine Cardiovascular Disease
DX: I13.0 Hypertensive heart and chronic kidney disease with heart failure and stage 1 through stage 4 chronic kidney disease, or unspecified chronic kidney disease (principal); E11.22 Type 2 diabetes mellitus with diabetic chronic kidney disease; I50.23 Acute on chronic systolic (congestive) heart failure; N18.3 Chronic kidney disease, stage 3 (moderate); D63.1 Anemia in chronic kidney disease; I48.1 Persistent atrial fibrillation; I25.10 Atherosclerotic heart disease of native coronary artery without angina pectoris; I25.2 Old myocardial infarction; J44.9 Chronic obstructive pulmonary disease, unspecified; K21.9 Gastro-esophageal reflux disease without esophagitis; E78.5 Hyperlipidemia, unspecified; E03.9 Hypothyroidism, unspecified; E78.00 Pure hypercholesterolemia, unspecified; F31.9 Bipolar disorder, unspecified; Z79.899 Other long term (current) drug therapy; Z95.810 Presence of automatic (implantable) cardiac defibrillator; Z98.61 Coronary angioplasty status
CPT/HCPCS: 96365; 96366; G0463; J1250; J1642

== ENCOUNTER → 2018-08-24 | Outpatient (CLI) | payer OTHER ==
[2018-08-24] VITALS (9 sets, daily range): BP systolic 89–129; BP diastolic 50–79
[~2018-08-24] MED LIST changes: +CYANOCOBALAMIN (B-12) 1000 MCG/1 ML VIAL ONE
== END | disposition home or self-care (01) ==
LOC: CHF HDHVI 07:54
PROVIDERS: ATTEND Internal Medicine Cardiovascular Disease
DX: I13.0 Hypertensive heart and chronic kidney disease with heart failure and stage 1 through stage 4 chronic kidney disease, or unspecified chronic kidney disease (principal); E11.22 Type 2 diabetes mellitus with diabetic chronic kidney disease; N18.3 Chronic kidney disease, stage 3 (moderate); I50.23 Acute on chronic systolic (congestive) heart failure; D63.1 Anemia in chronic kidney disease; I25.10 Atherosclerotic heart disease of native coronary artery without angina pectoris; I48.1 Persistent atrial fibrillation; I25.2 Old myocardial infarction; E03.9 Hypothyroidism, unspecified; E78.5 Hyperlipidemia, unspecified; E78.00 Pure hypercholesterolemia, unspecified; K21.9 Gastro-esophageal reflux disease without esophagitis; F31.9 Bipolar disorder, unspecified; Z79.899 Other long term (current) drug therapy; Z95.810 Presence of automatic (implantable) cardiac defibrillator; Z95.1 Presence of aortocoronary bypass graft; Z98.61 Coronary angioplasty status
CPT/HCPCS: 96365; 96366; G0463; J1250; J1642

== ENCOUNTER → 2018-08-27 | Outpatient (CLI) | payer OTHER ==
[2018-08-27] VITALS (9 sets, daily range): BP systolic 104–128; BP diastolic 57–75
[~2018-08-27] MED LIST changes: -CYANOCOBALAMIN (B-12) 1000 MCG/1 ML VIAL ONE
== END | disposition home or self-care (01) ==
LOC: CHF HDHVI 08:02
PROVIDERS: ATTEND Internal Medicine Cardiovascular Disease
DX: I25.10 Atherosclerotic heart disease of native coronary artery without angina pectoris (principal); I48.1 Persistent atrial fibrillation; I13.0 Hypertensive heart and chronic kidney disease with heart failure and stage 1 through stage 4 chronic kidney disease, or unspecified chronic kidney disease; E11.22 Type 2 diabetes mellitus with diabetic chronic kidney disease; N18.3 Chronic kidney disease, stage 3 (moderate); I50.23 Acute on chronic systolic (congestive) heart failure; D63.1 Anemia in chronic kidney disease; K21.9 Gastro-esophageal reflux disease without esophagitis; J44.9 Chronic obstructive pulmonary disease, unspecified; E78.5 Hyperlipidemia, unspecified; E03.9 Hypothyroidism, unspecified; E78.00 Pure hypercholesterolemia, unspecified; F31.9 Bipolar disorder, unspecified; Z79.899 Other long term (current) drug therapy; Z95.810 Presence of automatic (implantable) cardiac defibrillator; Z98.61 Coronary angioplasty status
CPT/HCPCS: 96365; 96366; G0463; J1250; J1642

== ENCOUNTER → 2018-08-29 | Outpatient (CLI) | payer OTHER ==
[~2018-08-29] VITALS: Ht 30.5 cm; Wt 90.7 kg
[2018-08-29] VITALS (8 sets, daily range): BP systolic 97–130; BP diastolic 54–74
== END | disposition home or self-care (01) ==
LOC: CHF HDHVI 07:55
PROVIDERS: ATTEND Internal Medicine Cardiovascular Disease
DX: I42.8 Other cardiomyopathies (principal); I25.10 Atherosclerotic heart disease of native coronary artery without angina pectoris; I13.0 Hypertensive heart and chronic kidney disease with heart failure and stage 1 through stage 4 chronic kidney disease, or unspecified chronic kidney disease; E11.22 Type 2 diabetes mellitus with diabetic chronic kidney disease; N18.3 Chronic kidney disease, stage 3 (moderate); I50.23 Acute on chronic systolic (congestive) heart failure; D63.1 Anemia in chronic kidney disease; I25.2 Old myocardial infarction; I48.1 Persistent atrial fibrillation; J44.9 Chronic obstructive pulmonary disease, unspecified; K21.9 Gastro-esophageal reflux disease without esophagitis; E78.5 Hyperlipidemia, unspecified; E03.9 Hypothyroidism, unspecified; E78.00 Pure hypercholesterolemia, unspecified; F31.9 Bipolar disorder, unspecified; Z79.899 Other long term (current) drug therapy; Z98.61 Coronary angioplasty status; Z95.810 Presence of automatic (implantable) cardiac defibrillator
CPT/HCPCS: 96365; 96366; G0463; J1250; J1642

== ENCOUNTER → 2018-08-31 | Outpatient (CLI) | payer OTHER ==
[2018-08-31] VITALS (9 sets, daily range): BP systolic 102–127; BP diastolic 57–71
== END | disposition home or self-care (01) ==
LOC: CHF HDHVI 08:01
PROVIDERS: ATTEND Internal Medicine Cardiovascular Disease
DX: E11.22 Type 2 diabetes mellitus with diabetic chronic kidney disease (principal); I13.0 Hypertensive heart and chronic kidney disease with heart failure and stage 1 through stage 4 chronic kidney disease, or unspecified chronic kidney disease; N18.3 Chronic kidney disease, stage 3 (moderate); I50.23 Acute on chronic systolic (congestive) heart failure; D63.1 Anemia in chronic kidney disease; I25.10 Atherosclerotic heart disease of native coronary artery without angina pectoris; F31.9 Bipolar disorder, unspecified; J44.9 Chronic obstructive pulmonary disease, unspecified; K21.9 Gastro-esophageal reflux disease without esophagitis; E78.5 Hyperlipidemia, unspecified; E03.9 Hypothyroidism, unspecified; I25.2 Old myocardial infarction; I48.0 Paroxysmal atrial fibrillation; E78.00 Pure hypercholesterolemia, unspecified; Z79.899 Other long term (current) drug therapy
CPT/HCPCS: 96365; 96366; G0463; J1250; J1642

== ENCOUNTER → 2018-09-03 | Outpatient (CLI) | payer OTHER ==
[2018-09-03] VITALS (9 sets, daily range): BP systolic 96–112; BP diastolic 51–72
== END | disposition home or self-care (01) ==
LOC: CHF HDHVI 08:09
PROVIDERS: ATTEND Internal Medicine Cardiovascular Disease
DX: E11.22 Type 2 diabetes mellitus with diabetic chronic kidney disease (principal); I13.0 Hypertensive heart and chronic kidney disease with heart failure and stage 1 through stage 4 chronic kidney disease, or unspecified chronic kidney disease; N18.3 Chronic kidney disease, stage 3 (moderate); I50.23 Acute on chronic systolic (congestive) heart failure; D63.1 Anemia in chronic kidney disease; F31.9 Bipolar disorder, unspecified; E78.5 Hyperlipidemia, unspecified; E03.9 Hypothyroidism, unspecified; I25.2 Old myocardial infarction; I48.0 Paroxysmal atrial fibrillation; K21.9 Gastro-esophageal reflux disease without esophagitis; Z95.1 Presence of aortocoronary bypass graft
CPT/HCPCS: 93701; 96365; 96366; G0463; J1250; J1642

== ENCOUNTER → 2018-09-05 | Outpatient (CLI) | payer OTHER ==
[2018-09-05 08:30] VITALS: BP 133/65
[2018-09-05 09:00] VITALS: BP 136/70
[2018-09-05 09:30] VITALS: BP 101/57
[2018-09-05 10:00] VITALS: BP 112/56
[2018-09-05 10:30] VITALS: BP 122/67
[2018-09-05 10:59] VITALS: BP 130/76
== END | disposition home or self-care (01) ==
LOC: CHF HDHVI 07:55
PROVIDERS: ATTEND Internal Medicine Cardiovascular Disease
DX: I50.22 Chronic systolic (congestive) heart failure (principal); I13.0 Hypertensive heart and chronic kidney disease with heart failure and stage 1 through stage 4 chronic kidney disease, or unspecified chronic kidney disease; E11.22 Type 2 diabetes mellitus with diabetic chronic kidney disease; N18.3 Chronic kidney disease, stage 3 (moderate); I48.1 Persistent atrial fibrillation; I25.10 Atherosclerotic heart disease of native coronary artery without angina pectoris; J44.9 Chronic obstructive pulmonary disease, unspecified; I42.9 Cardiomyopathy, unspecified; F31.9 Bipolar disorder, unspecified; E03.9 Hypothyroidism, unspecified; I25.2 Old myocardial infarction; E78.5 Hyperlipidemia, unspecified; E78.00 Pure hypercholesterolemia, unspecified; K21.9 Gastro-esophageal reflux disease without esophagitis; D63.1 Anemia in chronic kidney disease; Z85.038 Personal history of other malignant neoplasm of large intestine; Z95.810 Presence of automatic (implantable) cardiac defibrillator; Z86.73 Personal history of transient ischemic attack (TIA), and cerebral infarction without residual deficits; Z98.61 Coronary angioplasty status; Z95.1 Presence of aortocoronary bypass graft
CPT/HCPCS: 96365; 96366; G0463; J1250; J1642

== ENCOUNTER → 2018-09-07 | Outpatient (CLI) | payer OTHER ==
[2018-09-07] VITALS (9 sets, daily range): BP systolic 103–130; BP diastolic 56–72
[~2018-09-07] VITALS: Ht 30.5 cm; Wt 89.8 kg
== END | disposition home or self-care (01) ==
LOC: CHF HDHVI 07:47
PROVIDERS: ATTEND Internal Medicine Cardiovascular Disease
DX: I13.0 Hypertensive heart and chronic kidney disease with heart failure and stage 1 through stage 4 chronic kidney disease, or unspecified chronic kidney disease (principal); I50.84 End stage heart failure; I42.8 Other cardiomyopathies; I50.23 Acute on chronic systolic (congestive) heart failure; N18.3 Chronic kidney disease, stage 3 (moderate); E11.22 Type 2 diabetes mellitus with diabetic chronic kidney disease; D63.1 Anemia in chronic kidney disease; J44.9 Chronic obstructive pulmonary disease, unspecified; I25.2 Old myocardial infarction; E78.5 Hyperlipidemia, unspecified; K21.9 Gastro-esophageal reflux disease without esophagitis; Z85.038 Personal history of other malignant neoplasm of large intestine; Z86.73 Personal history of transient ischemic attack (TIA), and cerebral infarction without residual deficits; Z95.1 Presence of aortocoronary bypass graft; Z95.810 Presence of automatic (implantable) cardiac defibrillator; Z79.899 Other long term (current) drug therapy; Z98.61 Coronary angioplasty status
CPT/HCPCS: 96365; 96366; G0463; J1250; J1642

== ENCOUNTER → 2018-09-10 | Outpatient (CLI) | payer OTHER ==
[~2018-09-10] VITALS: Ht 30.5 cm; Wt 89.8 kg
[2018-09-10] VITALS (9 sets, daily range): BP systolic 104–120; BP diastolic 56–66
== END | disposition home or self-care (01) ==
LOC: CHF HDHVI 07:56
PROVIDERS: ATTEND Internal Medicine Cardiovascular Disease
DX: I50.84 End stage heart failure (principal); I13.0 Hypertensive heart and chronic kidney disease with heart failure and stage 1 through stage 4 chronic kidney disease, or unspecified chronic kidney disease; I50.23 Acute on chronic systolic (congestive) heart failure; N18.3 Chronic kidney disease, stage 3 (moderate); D63.1 Anemia in chronic kidney disease; J44.9 Chronic obstructive pulmonary disease, unspecified; I25.2 Old myocardial infarction; I42.8 Other cardiomyopathies; E78.5 Hyperlipidemia, unspecified; E03.9 Hypothyroidism, unspecified; I48.0 Paroxysmal atrial fibrillation; E87.5 Hyperkalemia; E11.22 Type 2 diabetes mellitus with diabetic chronic kidney disease; D51.3 Other dietary vitamin B12 deficiency anemia; K21.9 Gastro-esophageal reflux disease without esophagitis; E78.00 Pure hypercholesterolemia, unspecified; Z95.810 Presence of automatic (implantable) cardiac defibrillator; Z95.1 Presence of aortocoronary bypass graft; Z98.61 Coronary angioplasty status
CPT/HCPCS: 96365; 96366; G0463; J1250; J1642

== ENCOUNTER → 2018-09-12 | Outpatient (CLI) | payer OTHER ==
[2018-09-12] VITALS (9 sets, daily range): BP systolic 99–120; BP diastolic 54–69
[2018-09-12 12:13] LABS: Basophils # (auto) 0 uL; Basophils % (auto) 0.6 % (0.0-2.0); Eosinophils # (auto) 0.1 uL; Eosinophils % (auto) 3.1 % (0.0-7.0); Hematocrit 43.1 % (41.0-53.0); Hemoglobin 14.7 g/dL (13.5-17.5); Lymphocytes # (auto) 1.4 uL; Lymphocytes % (auto) 36.2 % (10.0-50.0); Mean Corpuscular Hemoglobin 33.2 pg (28.0-32.0); Mean Corpuscular Hgb Conc. 34.1 g/dL (32.0-36.0); Mean Corpuscular Volume 97.2 fL (80.0-100.0); Monocytes # (auto) 0.7 uL; Neutrophils # (auto) 1.7 uL; Neutrophils % (auto) 43.1 % (37.0-80.0); Nucleated Red Blood Cells % 0.2 %; Platelet Count (auto) 159 10^3/uL (140-450); Red Blood Cells 4.44 10^6/uL (4.5-5.90); White Blood Cell 3.9 10^3/uL (4.4-10.8)
[2018-09-12 12:23] LABS: Calcium 8.8 mg/dL (8.5-10.1); Potassium 4.3 mmol/L (3.5-5.1)
[2018-09-12 12:25] LABS: BUN/Creatinine Ratio 13.7
== END | disposition home or self-care (01) ==
LOC: CHF HDHVI 08:00
PROVIDERS: ATTEND Internal Medicine Cardiovascular Disease
DX: I13.0 Hypertensive heart and chronic kidney disease with heart failure and stage 1 through stage 4 chronic kidney disease, or unspecified chronic kidney disease (principal); I50.23 Acute on chronic systolic (congestive) heart failure; N18.3 Chronic kidney disease, stage 3 (moderate); D63.8 Anemia in other chronic diseases classified elsewhere; E11.22 Type 2 diabetes mellitus with diabetic chronic kidney disease; I48.1 Persistent atrial fibrillation; I48.0 Paroxysmal atrial fibrillation; I25.10 Atherosclerotic heart disease of native coronary artery without angina pectoris; I50.84 End stage heart failure; J44.9 Chronic obstructive pulmonary disease, unspecified; E78.5 Hyperlipidemia, unspecified; E03.9 Hypothyroidism, unspecified; I25.2 Old myocardial infarction; K21.9 Gastro-esophageal reflux disease without esophagitis; E87.5 Hyperkalemia; E55.9 Vitamin D deficiency, unspecified; E78.00 Pure hypercholesterolemia, unspecified; F31.9 Bipolar disorder, unspecified; R94.4 Abnormal results of kidney function studies; Z85.038 Personal history of other malignant neoplasm of large intestine; Z95.810 Presence of automatic (implantable) cardiac defibrillator; Z95.1 Presence of aortocoronary bypass graft; Z79.899 Other long term (current) drug therapy; Z86.73 Personal history of transient ischemic attack (TIA), and cerebral infarction without residual deficits; Z98.61 Coronary angioplasty status
CPT/HCPCS: 36415; 80048; 83880; 85025; 96365; 96366; G0463; J1250; J1642

== ENCOUNTER → 2018-09-14 | Outpatient (CLI) | payer OTHER ==
[~2018-09-14] VITALS: Ht 30.5 cm; Wt 90.7 kg
[2018-09-14] VITALS (8 sets, daily range): BP systolic 92–110; BP diastolic 51–71
== END | disposition home or self-care (01) ==
LOC: CHF HDHVI 08:07
PROVIDERS: ATTEND Internal Medicine Cardiovascular Disease
DX: I13.0 Hypertensive heart and chronic kidney disease with heart failure and stage 1 through stage 4 chronic kidney disease, or unspecified chronic kidney disease (principal); I50.23 Acute on chronic systolic (congestive) heart failure; E11.22 Type 2 diabetes mellitus with diabetic chronic kidney disease; N18.3 Chronic kidney disease, stage 3 (moderate); D63.8 Anemia in other chronic diseases classified elsewhere; I50.84 End stage heart failure; I25.10 Atherosclerotic heart disease of native coronary artery without angina pectoris; I48.0 Paroxysmal atrial fibrillation; K21.9 Gastro-esophageal reflux disease without esophagitis; I42.9 Cardiomyopathy, unspecified; D51.3 Other dietary vitamin B12 deficiency anemia; E78.00 Pure hypercholesterolemia, unspecified; R94.4 Abnormal results of kidney function studies; F31.9 Bipolar disorder, unspecified; E55.9 Vitamin D deficiency, unspecified; E03.9 Hypothyroidism, unspecified; Z79.899 Other long term (current) drug therapy; Z98.61 Coronary angioplasty status; Z85.89 Personal history of malignant neoplasm of other organs and systems; Z85.038 Personal history of other malignant neoplasm of large intestine; Z95.1 Presence of aortocoronary bypass graft; Z95.810 Presence of automatic (implantable) cardiac defibrillator; Z86.73 Personal history of transient ischemic attack (TIA), and cerebral infarction without residual deficits
CPT/HCPCS: 96365; 96366; G0463; J1250; J1642

== ENCOUNTER → 2018-09-17 | Outpatient (CLI) | payer OTHER ==
[2018-09-17] VITALS (8 sets, daily range): BP systolic 90–119; BP diastolic 46–66
== END | disposition home or self-care (01) ==
LOC: CHF HDHVI 08:00
PROVIDERS: ATTEND Internal Medicine Cardiovascular Disease
DX: I13.0 Hypertensive heart and chronic kidney disease with heart failure and stage 1 through stage 4 chronic kidney disease, or unspecified chronic kidney disease (principal); I50.23 Acute on chronic systolic (congestive) heart failure; E11.22 Type 2 diabetes mellitus with diabetic chronic kidney disease; D63.8 Anemia in other chronic diseases classified elsewhere; N18.3 Chronic kidney disease, stage 3 (moderate); D63.1 Anemia in chronic kidney disease; D51.3 Other dietary vitamin B12 deficiency anemia; I48.0 Paroxysmal atrial fibrillation; I48.1 Persistent atrial fibrillation; E55.9 Vitamin D deficiency, unspecified; E78.5 Hyperlipidemia, unspecified; E03.9 Hypothyroidism, unspecified; J44.9 Chronic obstructive pulmonary disease, unspecified; I42.8 Other cardiomyopathies; E78.00 Pure hypercholesterolemia, unspecified; I25.10 Atherosclerotic heart disease of native coronary artery without angina pectoris; F31.9 Bipolar disorder, unspecified; E87.5 Hyperkalemia; Z95.1 Presence of aortocoronary bypass graft; K21.9 Gastro-esophageal reflux disease without esophagitis; Z79.899 Other long term (current) drug therapy; Z95.810 Presence of automatic (implantable) cardiac defibrillator; Z85.038 Personal history of other malignant neoplasm of large intestine
CPT/HCPCS: 96365; 96366; G0463; J1250; J1642

== ENCOUNTER → 2018-09-19 | Outpatient (CLI) | payer OTHER ==
[2018-09-19] VITALS (9 sets, daily range): BP systolic 102–112; BP diastolic 56–69
== END | disposition home or self-care (01) ==
LOC: CHF HDHVI 07:51
PROVIDERS: ATTEND Internal Medicine Cardiovascular Disease
DX: I13.0 Hypertensive heart and chronic kidney disease with heart failure and stage 1 through stage 4 chronic kidney disease, or unspecified chronic kidney disease (principal); I50.23 Acute on chronic systolic (congestive) heart failure; N18.3 Chronic kidney disease, stage 3 (moderate); E11.22 Type 2 diabetes mellitus with diabetic chronic kidney disease; D63.1 Anemia in chronic kidney disease; D51.3 Other dietary vitamin B12 deficiency anemia; I48.1 Persistent atrial fibrillation; I48.0 Paroxysmal atrial fibrillation; I42.8 Other cardiomyopathies; K21.9 Gastro-esophageal reflux disease without esophagitis; E87.5 Hyperkalemia; E78.5 Hyperlipidemia, unspecified; J44.9 Chronic obstructive pulmonary disease, unspecified; E03.9 Hypothyroidism, unspecified; E78.00 Pure hypercholesterolemia, unspecified; E55.9 Vitamin D deficiency, unspecified; I50.84 End stage heart failure; I25.2 Old myocardial infarction; Z86.73 Personal history of transient ischemic attack (TIA), and cerebral infarction without residual deficits; Z85.038 Personal history of other malignant neoplasm of large intestine; Z98.61 Coronary angioplasty status; Z95.810 Presence of automatic (implantable) cardiac defibrillator; Z95.1 Presence of aortocoronary bypass graft
CPT/HCPCS: 96365; 96366; G0463; J1250; J1642

== ENCOUNTER → 2018-09-21 | Outpatient (CLI) | payer OTHER ==
[2018-09-21] VITALS (9 sets, daily range): BP systolic 92–121; BP diastolic 49–75
== END | disposition home or self-care (01) ==
LOC: CHF HDHVI 07:54
PROVIDERS: ATTEND Internal Medicine Cardiovascular Disease
DX: I13.0 Hypertensive heart and chronic kidney disease with heart failure and stage 1 through stage 4 chronic kidney disease, or unspecified chronic kidney disease (principal); I50.23 Acute on chronic systolic (congestive) heart failure; N18.3 Chronic kidney disease, stage 3 (moderate); D63.1 Anemia in chronic kidney disease; E11.22 Type 2 diabetes mellitus with diabetic chronic kidney disease; I48.0 Paroxysmal atrial fibrillation; I48.1 Persistent atrial fibrillation; J44.9 Chronic obstructive pulmonary disease, unspecified; I50.84 End stage heart failure; E78.5 Hyperlipidemia, unspecified; E03.9 Hypothyroidism, unspecified; I25.2 Old myocardial infarction; E55.9 Vitamin D deficiency, unspecified; I25.10 Atherosclerotic heart disease of native coronary artery without angina pectoris; F31.9 Bipolar disorder, unspecified; K21.9 Gastro-esophageal reflux disease without esophagitis; E87.5 Hyperkalemia; I42.8 Other cardiomyopathies; D51.3 Other dietary vitamin B12 deficiency anemia; Z85.038 Personal history of other malignant neoplasm of large intestine; Z85.89 Personal history of malignant neoplasm of other organs and systems; Z95.810 Presence of automatic (implantable) cardiac defibrillator; Z86.73 Personal history of transient ischemic attack (TIA), and cerebral infarction without residual deficits; Z79.899 Other long term (current) drug therapy; Z95.1 Presence of aortocoronary bypass graft
CPT/HCPCS: 96365; 96366; G0463; J1250; J1642

== ENCOUNTER → 2018-09-24 | Outpatient (CLI) | payer OTHER ==
[2018-09-24] VITALS (8 sets, daily range): BP systolic 100–120; BP diastolic 53–77
[~2018-09-24] MED LIST changes: +CYANOCOBALAMIN (B-12) 1000 MCG/1 ML VIAL IM ONE; +CYANOCOBALAMIN (B-12) 1000 MCG/1 ML VIAL ONE; +DOBUTamine 1000MCG/ML 250 ML IV SCH
== END | disposition home or self-care (01) ==
LOC: CHF HDHVI 07:57
PROVIDERS: ATTEND Internal Medicine Cardiovascular Disease
DX: I13.0 Hypertensive heart and chronic kidney disease with heart failure and stage 1 through stage 4 chronic kidney disease, or unspecified chronic kidney disease (principal); I50.23 Acute on chronic systolic (congestive) heart failure; E11.22 Type 2 diabetes mellitus with diabetic chronic kidney disease; N18.3 Chronic kidney disease, stage 3 (moderate); D63.8 Anemia in other chronic diseases classified elsewhere; I48.0 Paroxysmal atrial fibrillation; R53.1 Weakness; I25.10 Atherosclerotic heart disease of native coronary artery without angina pectoris; I50.84 End stage heart failure; E78.5 Hyperlipidemia, unspecified; E03.9 Hypothyroidism, unspecified; I25.2 Old myocardial infarction; K21.9 Gastro-esophageal reflux disease without esophagitis; E87.5 Hyperkalemia; J44.9 Chronic obstructive pulmonary disease, unspecified; I42.8 Other cardiomyopathies; E78.00 Pure hypercholesterolemia, unspecified; E55.9 Vitamin D deficiency, unspecified; F31.9 Bipolar disorder, unspecified; R94.4 Abnormal results of kidney function studies; Z85.038 Personal history of other malignant neoplasm of large intestine; Z95.1 Presence of aortocoronary bypass graft; Z95.810 Presence of automatic (implantable) cardiac defibrillator; Z79.899 Other long term (current) drug therapy
CPT/HCPCS: 96365; 96366; 96372; G0463; J1250; J1642; J3420

== ENCOUNTER → 2018-09-26 | Outpatient (CLI) | payer OTHER ==
[2018-09-26] VITALS (9 sets, daily range): BP systolic 97–122; BP diastolic 54–69
[~2018-09-26] MED LIST changes: -CYANOCOBALAMIN (B-12) 1000 MCG/1 ML VIAL IM ONE; -CYANOCOBALAMIN (B-12) 1000 MCG/1 ML VIAL ONE; -DOBUTamine 1000MCG/ML 250 ML IV SCH
== END | disposition home or self-care (01) ==
LOC: CHF HDHVI 08:02
PROVIDERS: ATTEND Internal Medicine Cardiovascular Disease
DX: I13.0 Hypertensive heart and chronic kidney disease with heart failure and stage 1 through stage 4 chronic kidney disease, or unspecified chronic kidney disease (principal); E11.22 Type 2 diabetes mellitus with diabetic chronic kidney disease; I50.23 Acute on chronic systolic (congestive) heart failure; I50.84 End stage heart failure; I48.1 Persistent atrial fibrillation; N18.3 Chronic kidney disease, stage 3 (moderate); I25.10 Atherosclerotic heart disease of native coronary artery without angina pectoris; J44.9 Chronic obstructive pulmonary disease, unspecified; I25.2 Old myocardial infarction; I42.8 Other cardiomyopathies; E03.9 Hypothyroidism, unspecified; E78.5 Hyperlipidemia, unspecified; E78.00 Pure hypercholesterolemia, unspecified; K21.9 Gastro-esophageal reflux disease without esophagitis; D63.1 Anemia in chronic kidney disease; F31.9 Bipolar disorder, unspecified; Z85.038 Personal history of other malignant neoplasm of large intestine; Z86.73 Personal history of transient ischemic attack (TIA), and cerebral infarction without residual deficits; Z95.1 Presence of aortocoronary bypass graft; Z98.61 Coronary angioplasty status; Z95.810 Presence of automatic (implantable) cardiac defibrillator
CPT/HCPCS: 96365; 96366; G0463; J1250; J1642

== ENCOUNTER → 2018-09-28 | Outpatient (CLI) | payer OTHER ==
[2018-09-28] VITALS (9 sets, daily range): BP systolic 81–101; BP diastolic 47–66
[2018-09-28 11:57] LABS: Basophils # (auto) 0 uL; Basophils % (auto) 0.8 % (0.0-2.0); Eosinophils # (auto) 0.2 uL; Eosinophils % (auto) 3.9 % (0.0-7.0); Hematocrit 42.4 % (41.0-53.0); Lymphocytes # (auto) 1.3 uL; Lymphocytes % (auto) 33.5 % (10.0-50.0); Mean Corpuscular Hemoglobin 32.5 pg (28.0-32.0); Mean Corpuscular Hgb Conc. 33.1 g/dL (32.0-36.0); Mean Corpuscular Volume 98.2 fL (80.0-100.0); Monocytes # (auto) 0.7 uL; Monocytes % (auto) 17.3 % (0.0-12.0); Neutrophils # (auto) 1.7 uL; Neutrophils % (auto) 44.5 % (37.0-80.0); Platelet Count (auto) 147 10^3/uL (140-450); Red Blood Cells 4.31 10^6/uL (4.5-5.90); Red Cell Distribution Width 13.1 % (11.8-14.3); White Blood Cell 3.9 10^3/uL (4.4-10.8)
[2018-09-28 12:06] LABS: Albumin 3.5 g/dL (3.4-5.0); Calcium 8.6 mg/dL (8.5-10.1); Potassium 4.2 mmol/L (3.5-5.1)
[2018-09-28 12:11] LABS: BUN/Creatinine Ratio 13.1; Bilirubin, Total 0.6 mg/dL (0.2-1.0); Total Protein 7.1 g/dL (6.4-8.2)
== END | disposition home or self-care (01) ==
LOC: CHF HDHVI 07:59
PROVIDERS: ATTEND Internal Medicine Cardiovascular Disease
DX: I13.0 Hypertensive heart and chronic kidney disease with heart failure and stage 1 through stage 4 chronic kidney disease, or unspecified chronic kidney disease (principal); E11.22 Type 2 diabetes mellitus with diabetic chronic kidney disease; I50.23 Acute on chronic systolic (congestive) heart failure; I50.84 End stage heart failure; N18.3 Chronic kidney disease, stage 3 (moderate); I25.10 Atherosclerotic heart disease of native coronary artery without angina pectoris; I25.2 Old myocardial infarction; I48.1 Persistent atrial fibrillation; I42.8 Other cardiomyopathies; J44.9 Chronic obstructive pulmonary disease, unspecified; E03.9 Hypothyroidism, unspecified; D63.1 Anemia in chronic kidney disease; E78.5 Hyperlipidemia, unspecified; E78.00 Pure hypercholesterolemia, unspecified; F31.9 Bipolar disorder, unspecified; Z95.810 Presence of automatic (implantable) cardiac defibrillator; Z95.1 Presence of aortocoronary bypass graft; Z98.61 Coronary angioplasty status; Z85.038 Personal history of other malignant neoplasm of large intestine; Z86.73 Personal history of transient ischemic attack (TIA), and cerebral infarction without residual deficits
CPT/HCPCS: 36415; 80053; 83880; 85025; 96365; 96366; G0463; J1250; J1642

== ENCOUNTER → 2018-10-01 | Outpatient (CLI) | payer OTHER ==
[2018-10-01] VITALS (9 sets, daily range): BP systolic 113–127; BP diastolic 59–71
== END | disposition home or self-care (01) ==
LOC: CHF HDHVI 07:50
PROVIDERS: ATTEND Internal Medicine Cardiovascular Disease
DX: I13.0 Hypertensive heart and chronic kidney disease with heart failure and stage 1 through stage 4 chronic kidney disease, or unspecified chronic kidney disease (principal); I50.23 Acute on chronic systolic (congestive) heart failure; N18.3 Chronic kidney disease, stage 3 (moderate); D63.8 Anemia in other chronic diseases classified elsewhere; E11.22 Type 2 diabetes mellitus with diabetic chronic kidney disease; I48.0 Paroxysmal atrial fibrillation; I48.1 Persistent atrial fibrillation; I25.10 Atherosclerotic heart disease of native coronary artery without angina pectoris; I50.84 End stage heart failure; I42.8 Other cardiomyopathies; K21.9 Gastro-esophageal reflux disease without esophagitis; R94.4 Abnormal results of kidney function studies; E87.5 Hyperkalemia; E55.9 Vitamin D deficiency, unspecified; D51.3 Other dietary vitamin B12 deficiency anemia; F31.9 Bipolar disorder, unspecified; E78.5 Hyperlipidemia, unspecified; J44.9 Chronic obstructive pulmonary disease, unspecified; E03.9 Hypothyroidism, unspecified; I25.2 Old myocardial infarction; Z79.899 Other long term (current) drug therapy; Z85.038 Personal history of other malignant neoplasm of large intestine; Z86.73 Personal history of transient ischemic attack (TIA), and cerebral infarction without residual deficits; Z95.810 Presence of automatic (implantable) cardiac defibrillator; Z98.61 Coronary angioplasty status; Z95.1 Presence of aortocoronary bypass graft
CPT/HCPCS: 96365; 96366; G0463; J1250; J1642

== ENCOUNTER → 2018-10-03 | Outpatient (CLI) | payer OTHER ==
[2018-10-03 08:00] VITALS: BP 93/50
[2018-10-03 08:15] VITALS: BP 90/50
[2018-10-03 08:30] VITALS: BP 96/51
[2018-10-03 10:45] VITALS: BP 123/75
== END | disposition home or self-care (01) ==
LOC: CHF HDHVI 08:24
PROVIDERS: ATTEND Internal Medicine Cardiovascular Disease
DX: I13.0 Hypertensive heart and chronic kidney disease with heart failure and stage 1 through stage 4 chronic kidney disease, or unspecified chronic kidney disease (principal); I50.23 Acute on chronic systolic (congestive) heart failure; N18.3 Chronic kidney disease, stage 3 (moderate); E11.22 Type 2 diabetes mellitus with diabetic chronic kidney disease; D63.8 Anemia in other chronic diseases classified elsewhere; I25.10 Atherosclerotic heart disease of native coronary artery without angina pectoris; R94.4 Abnormal results of kidney function studies; J44.9 Chronic obstructive pulmonary disease, unspecified; I50.84 End stage heart failure; K21.9 Gastro-esophageal reflux disease without esophagitis; E87.5 Hyperkalemia; F31.9 Bipolar disorder, unspecified; E78.5 Hyperlipidemia, unspecified; E03.9 Hypothyroidism, unspecified; I25.2 Old myocardial infarction; I42.8 Other cardiomyopathies; D51.3 Other dietary vitamin B12 deficiency anemia; I48.1 Persistent atrial fibrillation; I48.0 Paroxysmal atrial fibrillation; E55.9 Vitamin D deficiency, unspecified; E78.00 Pure hypercholesterolemia, unspecified; Z85.038 Personal history of other malignant neoplasm of large intestine; Z79.899 Other long term (current) drug therapy; Z95.810 Presence of automatic (implantable) cardiac defibrillator; Z86.73 Personal history of transient ischemic attack (TIA), and cerebral infarction without residual deficits; Z95.1 Presence of aortocoronary bypass graft
CPT/HCPCS: 96365; 96366; G0463; J1250; J1642

== ENCOUNTER → 2018-10-05 | Outpatient (CLI) | payer OTHER ==
[2018-10-05] VITALS (8 sets, daily range): BP systolic 84–112; BP diastolic 45–64
[~2018-10-05] VITALS: Ht 30.5 cm; Wt 90.7 kg
== END | disposition home or self-care (01) ==
LOC: CHF HDHVI 07:58
PROVIDERS: ATTEND Internal Medicine Cardiovascular Disease
DX: I13.0 Hypertensive heart and chronic kidney disease with heart failure and stage 1 through stage 4 chronic kidney disease, or unspecified chronic kidney disease (principal); I50.23 Acute on chronic systolic (congestive) heart failure; E11.22 Type 2 diabetes mellitus with diabetic chronic kidney disease; N18.3 Chronic kidney disease, stage 3 (moderate); D63.8 Anemia in other chronic diseases classified elsewhere; I25.10 Atherosclerotic heart disease of native coronary artery without angina pectoris; F31.9 Bipolar disorder, unspecified; J44.9 Chronic obstructive pulmonary disease, unspecified; I50.84 End stage heart failure; K21.9 Gastro-esophageal reflux disease without esophagitis; E87.5 Hyperkalemia; E78.5 Hyperlipidemia, unspecified; E03.9 Hypothyroidism, unspecified; I25.2 Old myocardial infarction; I42.8 Other cardiomyopathies; D51.3 Other dietary vitamin B12 deficiency anemia; I48.0 Paroxysmal atrial fibrillation; I48.1 Persistent atrial fibrillation; E55.9 Vitamin D deficiency, unspecified; Z85.89 Personal history of malignant neoplasm of other organs and systems; Z95.1 Presence of aortocoronary bypass graft; Z85.038 Personal history of other malignant neoplasm of large intestine; Z98.61 Coronary angioplasty status; Z79.899 Other long term (current) drug therapy; Z86.73 Personal history of transient ischemic attack (TIA), and cerebral infarction without residual deficits
CPT/HCPCS: 96365; 96366; G0463; J1250; J1642

== ENCOUNTER → 2018-10-08 | Outpatient (CLI) | payer OTHER ==
[2018-10-08] VITALS (8 sets, daily range): BP systolic 109–128; BP diastolic 62–86
== END | disposition home or self-care (01) ==
LOC: CHF HDHVI 08:05
PROVIDERS: ATTEND Internal Medicine Cardiovascular Disease
DX: I13.0 Hypertensive heart and chronic kidney disease with heart failure and stage 1 through stage 4 chronic kidney disease, or unspecified chronic kidney disease (principal); I50.23 Acute on chronic systolic (congestive) heart failure; E11.22 Type 2 diabetes mellitus with diabetic chronic kidney disease; D63.8 Anemia in other chronic diseases classified elsewhere; N18.3 Chronic kidney disease, stage 3 (moderate); I48.0 Paroxysmal atrial fibrillation; I48.1 Persistent atrial fibrillation; R94.4 Abnormal results of kidney function studies; J44.9 Chronic obstructive pulmonary disease, unspecified; I25.10 Atherosclerotic heart disease of native coronary artery without angina pectoris; F31.9 Bipolar disorder, unspecified; I50.84 End stage heart failure; K21.9 Gastro-esophageal reflux disease without esophagitis; E87.5 Hyperkalemia; E55.9 Vitamin D deficiency, unspecified; E78.5 Hyperlipidemia, unspecified; E78.00 Pure hypercholesterolemia, unspecified; E03.9 Hypothyroidism, unspecified; I25.2 Old myocardial infarction; I42.8 Other cardiomyopathies; D51.3 Other dietary vitamin B12 deficiency anemia; Z85.038 Personal history of other malignant neoplasm of large intestine; Z79.899 Other long term (current) drug therapy; Z95.1 Presence of aortocoronary bypass graft; Z95.810 Presence of automatic (implantable) cardiac defibrillator; Z86.73 Personal history of transient ischemic attack (TIA), and cerebral infarction without residual deficits; Z98.61 Coronary angioplasty status; Z85.89 Personal history of malignant neoplasm of other organs and systems
CPT/HCPCS: 96365; 96366; G0463; J1250; J1642

== ENCOUNTER → 2018-10-10 | Outpatient (CLI) | payer OTHER ==
[~2018-10-10] MED LIST changes: +DOBUTamine 1000MCG/ML 250 ML IV SCH
[2018-10-10 07:45] VITALS: BP 120/76
[2018-10-10 08:00] VITALS: BP 115/60
[2018-10-10 08:15] VITALS: BP 116/57
[2018-10-10 08:30] VITALS: BP 104/68
[2018-10-10 11:00] VITALS: BP 131/78
== END | disposition home or self-care (01) ==
LOC: CHF HDHVI 07:56
PROVIDERS: ATTEND Internal Medicine Cardiovascular Disease
DX: I13.0 Hypertensive heart and chronic kidney disease with heart failure and stage 1 through stage 4 chronic kidney disease, or unspecified chronic kidney disease (principal); I50.22 Chronic systolic (congestive) heart failure; I50.84 End stage heart failure; E11.22 Type 2 diabetes mellitus with diabetic chronic kidney disease; N18.3 Chronic kidney disease, stage 3 (moderate); E11.21 Type 2 diabetes mellitus with diabetic nephropathy; E11.40 Type 2 diabetes mellitus with diabetic neuropathy, unspecified; E11.319 Type 2 diabetes mellitus with unspecified diabetic retinopathy without macular edema; I25.10 Atherosclerotic heart disease of native coronary artery without angina pectoris; I25.2 Old myocardial infarction; I70.0 Atherosclerosis of aorta; I48.1 Persistent atrial fibrillation; J44.9 Chronic obstructive pulmonary disease, unspecified; I42.0 Dilated cardiomyopathy; I25.5 Ischemic cardiomyopathy; E78.5 Hyperlipidemia, unspecified; E78.00 Pure hypercholesterolemia, unspecified; E03.9 Hypothyroidism, unspecified; I35.0 Nonrheumatic aortic (valve) stenosis; I34.0 Nonrheumatic mitral (valve) insufficiency; I34.2 Nonrheumatic mitral (valve) stenosis; K74.1 Hepatic sclerosis; G89.29 Other chronic pain; K21.9 Gastro-esophageal reflux disease without esophagitis; M19.072 Primary osteoarthritis, left ankle and foot; F31.9 Bipolar disorder, unspecified; Z85.038 Personal history of other malignant neoplasm of large intestine; Z86.73 Personal history of transient ischemic attack (TIA), and cerebral infarction without residual deficits; Z79.899 Other long term (current) drug therapy; Z95.810 Presence of automatic (implantable) cardiac defibrillator; Z95.1 Presence of aortocoronary bypass graft; Z95.5 Presence of coronary angioplasty implant and graft; Z87.891 Personal history of nicotine dependence
CPT/HCPCS: 96365; 96366; G0463; J1250; J1642

== ENCOUNTER → 2018-10-12 | Outpatient (CLI) | payer OTHER ==
[2018-10-12] VITALS (9 sets, daily range): BP systolic 107–134; BP diastolic 57–81
[~2018-10-12] MED LIST changes: -DOBUTamine 1000MCG/ML 250 ML IV SCH
== END | disposition home or self-care (01) ==
LOC: CHF HDHVI 07:57
PROVIDERS: ATTEND Internal Medicine Cardiovascular Disease
DX: I25.5 Ischemic cardiomyopathy (principal); I48.1 Persistent atrial fibrillation; I13.0 Hypertensive heart and chronic kidney disease with heart failure and stage 1 through stage 4 chronic kidney disease, or unspecified chronic kidney disease; E11.22 Type 2 diabetes mellitus with diabetic chronic kidney disease; N18.3 Chronic kidney disease, stage 3 (moderate); I50.23 Acute on chronic systolic (congestive) heart failure; I48.0 Paroxysmal atrial fibrillation; I25.2 Old myocardial infarction; I42.0 Dilated cardiomyopathy; I70.0 Atherosclerosis of aorta; J44.9 Chronic obstructive pulmonary disease, unspecified; K21.9 Gastro-esophageal reflux disease without esophagitis; M19.072 Primary osteoarthritis, left ankle and foot; E78.5 Hyperlipidemia, unspecified; E03.9 Hypothyroidism, unspecified; E78.00 Pure hypercholesterolemia, unspecified; F31.9 Bipolar disorder, unspecified; Z86.73 Personal history of transient ischemic attack (TIA), and cerebral infarction without residual deficits; Z85.038 Personal history of other malignant neoplasm of large intestine; Z95.810 Presence of automatic (implantable) cardiac defibrillator; Z95.1 Presence of aortocoronary bypass graft
CPT/HCPCS: 93306; 96365; 96366; G0463; J1250; J1642

== ENCOUNTER → 2018-10-15 | Outpatient (CLI) | payer OTHER ==
[2018-10-15] VITALS (9 sets, daily range): BP systolic 94–126; BP diastolic 48–73
[2018-10-15 11:51] LABS: Potassium 3.9 mmol/L (3.5-5.1)
== END | disposition home or self-care (01) ==
LOC: CHF HDHVI 08:08
PROVIDERS: ATTEND Internal Medicine Cardiovascular Disease
DX: I25.10 Atherosclerotic heart disease of native coronary artery without angina pectoris (principal); I42.8 Other cardiomyopathies; E87.6 Hypokalemia; R94.4 Abnormal results of kidney function studies; I13.0 Hypertensive heart and chronic kidney disease with heart failure and stage 1 through stage 4 chronic kidney disease, or unspecified chronic kidney disease; E11.22 Type 2 diabetes mellitus with diabetic chronic kidney disease; N18.3 Chronic kidney disease, stage 3 (moderate); I50.23 Acute on chronic systolic (congestive) heart failure; I48.0 Paroxysmal atrial fibrillation; I25.2 Old myocardial infarction; I48.1 Persistent atrial fibrillation; I25.5 Ischemic cardiomyopathy; I42.0 Dilated cardiomyopathy; I70.0 Atherosclerosis of aorta; J44.9 Chronic obstructive pulmonary disease, unspecified; K21.9 Gastro-esophageal reflux disease without esophagitis; M19.072 Primary osteoarthritis, left ankle and foot; E78.5 Hyperlipidemia, unspecified; E03.9 Hypothyroidism, unspecified; E78.00 Pure hypercholesterolemia, unspecified; F31.9 Bipolar disorder, unspecified; Z86.73 Personal history of transient ischemic attack (TIA), and cerebral infarction without residual deficits; Z85.038 Personal history of other malignant neoplasm of large intestine; Z95.810 Presence of automatic (implantable) cardiac defibrillator; Z95.1 Presence of aortocoronary bypass graft
CPT/HCPCS: 36415; 82565; 83880; 84132; 84520; 96365; 96366; G0463; J1250; J1642

== ENCOUNTER → 2018-10-17 | Outpatient (CLI) | payer OTHER ==
[2018-10-17] VITALS (8 sets, daily range): BP systolic 90–124; BP diastolic 49–68
[~2018-10-17] VITALS: Ht 30.5 cm; Wt 90.7 kg
== END | disposition home or self-care (01) ==
LOC: CHF HDHVI 07:58
PROVIDERS: ATTEND Internal Medicine Cardiovascular Disease
DX: I13.0 Hypertensive heart and chronic kidney disease with heart failure and stage 1 through stage 4 chronic kidney disease, or unspecified chronic kidney disease (principal); E11.22 Type 2 diabetes mellitus with diabetic chronic kidney disease; I50.22 Chronic systolic (congestive) heart failure; N18.3 Chronic kidney disease, stage 3 (moderate); I70.0 Atherosclerosis of aorta; E03.9 Hypothyroidism, unspecified; E78.5 Hyperlipidemia, unspecified; I25.5 Ischemic cardiomyopathy; I25.2 Old myocardial infarction; I48.0 Paroxysmal atrial fibrillation; I48.1 Persistent atrial fibrillation; I25.10 Atherosclerotic heart disease of native coronary artery without angina pectoris; I25.9 Chronic ischemic heart disease, unspecified; K74.1 Hepatic sclerosis; F31.9 Bipolar disorder, unspecified; I42.0 Dilated cardiomyopathy; M19.072 Primary osteoarthritis, left ankle and foot; E11.319 Type 2 diabetes mellitus with unspecified diabetic retinopathy without macular edema; E78.00 Pure hypercholesterolemia, unspecified; I50.84 End stage heart failure; J44.9 Chronic obstructive pulmonary disease, unspecified; Z86.73 Personal history of transient ischemic attack (TIA), and cerebral infarction without residual deficits; Z85.038 Personal history of other malignant neoplasm of large intestine; Z95.810 Presence of automatic (implantable) cardiac defibrillator; Z95.0 Presence of cardiac pacemaker; Z98.61 Coronary angioplasty status; Z95.1 Presence of aortocoronary bypass graft; Z79.899 Other long term (current) drug therapy; Z88.8 Allergy status to other drugs, medicaments and biological substances
CPT/HCPCS: 96365; 96366; G0463; J1250; J1642

== ENCOUNTER → 2018-10-22 | Outpatient (CLI) | payer OTHER ==
[~2018-10-22] VITALS: Ht 30.5 cm; Wt 90.7 kg
[~2018-10-22] MED LIST changes: +CYANOCOBALAMIN (B-12) 1000 MCG/1 ML VIAL IM ONE; +CYANOCOBALAMIN (B-12) 1000 MCG/1 ML VIAL ONE
[2018-10-22 07:42] VITALS: BP 122/72
[2018-10-22 08:00] VITALS: BP 113/64
[2018-10-22 08:15] VITALS: BP 118/64
[2018-10-22 10:33] VITALS: BP 131/79
[2018-10-22 11:52] VITALS: BP 127/73
== END | disposition home or self-care (01) ==
LOC: CHF HDHVI 07:51
PROVIDERS: ATTEND Internal Medicine Cardiovascular Disease
DX: I13.0 Hypertensive heart and chronic kidney disease with heart failure and stage 1 through stage 4 chronic kidney disease, or unspecified chronic kidney disease (principal); E11.22 Type 2 diabetes mellitus with diabetic chronic kidney disease; I50.22 Chronic systolic (congestive) heart failure; N18.3 Chronic kidney disease, stage 3 (moderate); D63.1 Anemia in chronic kidney disease; I25.10 Atherosclerotic heart disease of native coronary artery without angina pectoris; I42.0 Dilated cardiomyopathy; I25.5 Ischemic cardiomyopathy; I48.1 Persistent atrial fibrillation; I25.2 Old myocardial infarction; I70.0 Atherosclerosis of aorta; I48.0 Paroxysmal atrial fibrillation; E11.319 Type 2 diabetes mellitus with unspecified diabetic retinopathy without macular edema; K74.1 Hepatic sclerosis; E78.5 Hyperlipidemia, unspecified; E78.00 Pure hypercholesterolemia, unspecified; E03.9 Hypothyroidism, unspecified; K21.9 Gastro-esophageal reflux disease without esophagitis; M19.072 Primary osteoarthritis, left ankle and foot; J44.9 Chronic obstructive pulmonary disease, unspecified; F31.9 Bipolar disorder, unspecified; Z87.440 Personal history of urinary (tract) infections; Z87.891 Personal history of nicotine dependence; Z79.899 Other long term (current) drug therapy; Z95.1 Presence of aortocoronary bypass graft; Z95.810 Presence of automatic (implantable) cardiac defibrillator; Z85.89 Personal history of malignant neoplasm of other organs and systems; Z85.038 Personal history of other malignant neoplasm of large intestine; Z86.73 Personal history of transient ischemic attack (TIA), and cerebral infarction without residual deficits
CPT/HCPCS: 96365; 96366; 96372; G0463; J1250; J1642; J3420

== ENCOUNTER → 2018-10-24 | Outpatient (CLI) | payer OTHER ==
[2018-10-24] VITALS (9 sets, daily range): BP systolic 93–114; BP diastolic 49–68
[~2018-10-24] MED LIST changes: -CYANOCOBALAMIN (B-12) 1000 MCG/1 ML VIAL IM ONE; -CYANOCOBALAMIN (B-12) 1000 MCG/1 ML VIAL ONE
== END | disposition home or self-care (01) ==
LOC: CHF HDHVI 07:56
PROVIDERS: ATTEND Internal Medicine Cardiovascular Disease
DX: I25.10 Atherosclerotic heart disease of native coronary artery without angina pectoris (principal); I13.0 Hypertensive heart and chronic kidney disease with heart failure and stage 1 through stage 4 chronic kidney disease, or unspecified chronic kidney disease; E11.22 Type 2 diabetes mellitus with diabetic chronic kidney disease; N18.3 Chronic kidney disease, stage 3 (moderate); I50.23 Acute on chronic systolic (congestive) heart failure; I48.1 Persistent atrial fibrillation; I25.2 Old myocardial infarction; I25.5 Ischemic cardiomyopathy; I42.0 Dilated cardiomyopathy; I70.0 Atherosclerosis of aorta; J44.9 Chronic obstructive pulmonary disease, unspecified; K21.9 Gastro-esophageal reflux disease without esophagitis; M19.072 Primary osteoarthritis, left ankle and foot; E78.5 Hyperlipidemia, unspecified; E03.9 Hypothyroidism, unspecified; E78.00 Pure hypercholesterolemia, unspecified; F31.9 Bipolar disorder, unspecified; Z86.73 Personal history of transient ischemic attack (TIA), and cerebral infarction without residual deficits; Z85.038 Personal history of other malignant neoplasm of large intestine; Z95.810 Presence of automatic (implantable) cardiac defibrillator; Z95.1 Presence of aortocoronary bypass graft
CPT/HCPCS: 96365; 96366; G0463; J1250; J1642

== ENCOUNTER → 2018-10-26 | Outpatient (CLI) | payer OTHER ==
[2018-10-26] VITALS (8 sets, daily range): BP systolic 100–125; BP diastolic 52–69
== END | disposition home or self-care (01) ==
LOC: CHF HDHVI 07:53
PROVIDERS: ATTEND Internal Medicine Cardiovascular Disease
DX: I13.0 Hypertensive heart and chronic kidney disease with heart failure and stage 1 through stage 4 chronic kidney disease, or unspecified chronic kidney disease (principal); I50.22 Chronic systolic (congestive) heart failure; I50.84 End stage heart failure; E11.22 Type 2 diabetes mellitus with diabetic chronic kidney disease; E11.21 Type 2 diabetes mellitus with diabetic nephropathy; E11.40 Type 2 diabetes mellitus with diabetic neuropathy, unspecified; E11.319 Type 2 diabetes mellitus with unspecified diabetic retinopathy without macular edema; N18.3 Chronic kidney disease, stage 3 (moderate); I25.2 Old myocardial infarction; I70.0 Atherosclerosis of aorta; I48.1 Persistent atrial fibrillation; J44.9 Chronic obstructive pulmonary disease, unspecified; I25.10 Atherosclerotic heart disease of native coronary artery without angina pectoris; I25.5 Ischemic cardiomyopathy; I42.0 Dilated cardiomyopathy; I35.0 Nonrheumatic aortic (valve) stenosis; I34.0 Nonrheumatic mitral (valve) insufficiency; E03.9 Hypothyroidism, unspecified; E78.5 Hyperlipidemia, unspecified; K74.1 Hepatic sclerosis; M19.072 Primary osteoarthritis, left ankle and foot; E78.00 Pure hypercholesterolemia, unspecified; K21.9 Gastro-esophageal reflux disease without esophagitis; F31.9 Bipolar disorder, unspecified; Z86.73 Personal history of transient ischemic attack (TIA), and cerebral infarction without residual deficits; Z85.038 Personal history of other malignant neoplasm of large intestine; Z95.1 Presence of aortocoronary bypass graft; Z79.899 Other long term (current) drug therapy; Z95.810 Presence of automatic (implantable) cardiac defibrillator; Z95.5 Presence of coronary angioplasty implant and graft; Z87.891 Personal history of nicotine dependence
CPT/HCPCS: 96365; 96366; G0463; J1250; J1642

== ENCOUNTER → 2018-10-29 | Outpatient (CLI) | payer OTHER ==
[2018-10-29] VITALS (9 sets, daily range): BP systolic 106–131; BP diastolic 47–76
== END | disposition home or self-care (01) ==
LOC: CHF HDHVI 08:11
PROVIDERS: ATTEND Internal Medicine Cardiovascular Disease
DX: I13.0 Hypertensive heart and chronic kidney disease with heart failure and stage 1 through stage 4 chronic kidney disease, or unspecified chronic kidney disease (principal); I50.23 Acute on chronic systolic (congestive) heart failure; I50.84 End stage heart failure; I42.8 Other cardiomyopathies; E11.22 Type 2 diabetes mellitus with diabetic chronic kidney disease; E11.40 Type 2 diabetes mellitus with diabetic neuropathy, unspecified; E11.319 Type 2 diabetes mellitus with unspecified diabetic retinopathy without macular edema; N18.3 Chronic kidney disease, stage 3 (moderate); I25.10 Atherosclerotic heart disease of native coronary artery without angina pectoris; I70.0 Atherosclerosis of aorta; I25.2 Old myocardial infarction; I48.1 Persistent atrial fibrillation; J44.9 Chronic obstructive pulmonary disease, unspecified; E78.5 Hyperlipidemia, unspecified; E78.00 Pure hypercholesterolemia, unspecified; E03.9 Hypothyroidism, unspecified; I35.0 Nonrheumatic aortic (valve) stenosis; I34.0 Nonrheumatic mitral (valve) insufficiency; M19.072 Primary osteoarthritis, left ankle and foot; K74.1 Hepatic sclerosis; K21.9 Gastro-esophageal reflux disease without esophagitis; F31.9 Bipolar disorder, unspecified; Z79.899 Other long term (current) drug therapy; Z85.038 Personal history of other malignant neoplasm of large intestine; Z86.73 Personal history of transient ischemic attack (TIA), and cerebral infarction without residual deficits; Z95.1 Presence of aortocoronary bypass graft; Z95.810 Presence of automatic (implantable) cardiac defibrillator; Z95.5 Presence of coronary angioplasty implant and graft; Z87.891 Personal history of nicotine dependence
CPT/HCPCS: 83880; 96365; 96366; G0463; J1250; J1642

== ENCOUNTER → 2018-10-31 | Outpatient (CLI) | payer OTHER ==
[2018-10-31] VITALS (9 sets, daily range): BP systolic 91–116; BP diastolic 53–66
== END | disposition home or self-care (01) ==
LOC: CHF HDHVI 08:22
PROVIDERS: ATTEND Internal Medicine Cardiovascular Disease
DX: I13.0 Hypertensive heart and chronic kidney disease with heart failure and stage 1 through stage 4 chronic kidney disease, or unspecified chronic kidney disease (principal); I50.22 Chronic systolic (congestive) heart failure; I50.84 End stage heart failure; E11.22 Type 2 diabetes mellitus with diabetic chronic kidney disease; E11.21 Type 2 diabetes mellitus with diabetic nephropathy; E11.40 Type 2 diabetes mellitus with diabetic neuropathy, unspecified; E11.319 Type 2 diabetes mellitus with unspecified diabetic retinopathy without macular edema; N18.3 Chronic kidney disease, stage 3 (moderate); I48.1 Persistent atrial fibrillation; I25.10 Atherosclerotic heart disease of native coronary artery without angina pectoris; I70.0 Atherosclerosis of aorta; I25.2 Old myocardial infarction; J44.9 Chronic obstructive pulmonary disease, unspecified; I42.0 Dilated cardiomyopathy; I25.5 Ischemic cardiomyopathy; I35.0 Nonrheumatic aortic (valve) stenosis; I34.2 Nonrheumatic mitral (valve) stenosis; I34.0 Nonrheumatic mitral (valve) insufficiency; E78.00 Pure hypercholesterolemia, unspecified; E78.5 Hyperlipidemia, unspecified; E03.9 Hypothyroidism, unspecified; K74.1 Hepatic sclerosis; M19.072 Primary osteoarthritis, left ankle and foot; K21.9 Gastro-esophageal reflux disease without esophagitis; D64.9 Anemia, unspecified; F31.9 Bipolar disorder, unspecified; Z85.038 Personal history of other malignant neoplasm of large intestine; Z95.5 Presence of coronary angioplasty implant and graft; Z95.810 Presence of automatic (implantable) cardiac defibrillator; Z95.1 Presence of aortocoronary bypass graft; Z79.899 Other long term (current) drug therapy; Z86.73 Personal history of transient ischemic attack (TIA), and cerebral infarction without residual deficits; Z87.891 Personal history of nicotine dependence
CPT/HCPCS: 96365; 96366; G0463; J1250; J1642

== ENCOUNTER → 2018-11-02 | Outpatient (CLI) | payer OTHER ==
[2018-11-02] VITALS (9 sets, daily range): BP systolic 93–123; BP diastolic 47–72
[~2018-11-02] VITALS: Ht 30.5 cm; Wt 90.7 kg
== END | disposition home or self-care (01) ==
LOC: CHF HDHVI 08:06
PROVIDERS: ATTEND Internal Medicine Cardiovascular Disease
DX: I13.0 Hypertensive heart and chronic kidney disease with heart failure and stage 1 through stage 4 chronic kidney disease, or unspecified chronic kidney disease (principal); I50.22 Chronic systolic (congestive) heart failure; I50.84 End stage heart failure; I25.10 Atherosclerotic heart disease of native coronary artery without angina pectoris; E11.22 Type 2 diabetes mellitus with diabetic chronic kidney disease; N18.3 Chronic kidney disease, stage 3 (moderate); E11.40 Type 2 diabetes mellitus with diabetic neuropathy, unspecified; E11.319 Type 2 diabetes mellitus with unspecified diabetic retinopathy without macular edema; E11.21 Type 2 diabetes mellitus with diabetic nephropathy; J44.9 Chronic obstructive pulmonary disease, unspecified; I25.2 Old myocardial infarction; I70.0 Atherosclerosis of aorta; I42.0 Dilated cardiomyopathy; I25.5 Ischemic cardiomyopathy; I34.0 Nonrheumatic mitral (valve) insufficiency; I35.0 Nonrheumatic aortic (valve) stenosis; I48.1 Persistent atrial fibrillation; E78.5 Hyperlipidemia, unspecified; E03.9 Hypothyroidism, unspecified; E78.00 Pure hypercholesterolemia, unspecified; M19.072 Primary osteoarthritis, left ankle and foot; K21.9 Gastro-esophageal reflux disease without esophagitis; F31.9 Bipolar disorder, unspecified; Z85.038 Personal history of other malignant neoplasm of large intestine; Z86.73 Personal history of transient ischemic attack (TIA), and cerebral infarction without residual deficits; Z95.810 Presence of automatic (implantable) cardiac defibrillator; Z95.5 Presence of coronary angioplasty implant and graft; Z95.1 Presence of aortocoronary bypass graft; Z79.899 Other long term (current) drug therapy; Z87.891 Personal history of nicotine dependence
CPT/HCPCS: 96365; 96366; G0463; J1250; J1642

== ENCOUNTER → 2018-11-05 | Outpatient (CLI) | payer OTHER ==
[~2018-11-05] VITALS: Ht 30.5 cm; Wt 90.9 kg
[2018-11-05] VITALS (8 sets, daily range): BP systolic 101–121; BP diastolic 52–65
[~2018-11-05] MED LIST changes: -DOBUTamine 1000MCG/ML 250 ML IV ONE
[2018-11-05] MEDS: DOBUTamine 1000MCG/ML 250 ML IV ONE ×2 (07:50→10:33)
== END | disposition home or self-care (01) ==
LOC: CHF HDHVI 08:17
PROVIDERS: ATTEND Internal Medicine Cardiovascular Disease
DX: I13.0 Hypertensive heart and chronic kidney disease with heart failure and stage 1 through stage 4 chronic kidney disease, or unspecified chronic kidney disease (principal); I50.22 Chronic systolic (congestive) heart failure; I50.84 End stage heart failure; E11.22 Type 2 diabetes mellitus with diabetic chronic kidney disease; N18.3 Chronic kidney disease, stage 3 (moderate); E11.40 Type 2 diabetes mellitus with diabetic neuropathy, unspecified; E11.319 Type 2 diabetes mellitus with unspecified diabetic retinopathy without macular edema; E11.21 Type 2 diabetes mellitus with diabetic nephropathy; I70.0 Atherosclerosis of aorta; I25.10 Atherosclerotic heart disease of native coronary artery without angina pectoris; J44.9 Chronic obstructive pulmonary disease, unspecified; I42.0 Dilated cardiomyopathy; I25.5 Ischemic cardiomyopathy; I48.1 Persistent atrial fibrillation; I25.2 Old myocardial infarction; I35.0 Nonrheumatic aortic (valve) stenosis; I34.0 Nonrheumatic mitral (valve) insufficiency; E78.5 Hyperlipidemia, unspecified; E03.9 Hypothyroidism, unspecified; E78.00 Pure hypercholesterolemia, unspecified; K74.1 Hepatic sclerosis; G89.29 Other chronic pain; M19.072 Primary osteoarthritis, left ankle and foot; I34.2 Nonrheumatic mitral (valve) stenosis; K21.9 Gastro-esophageal reflux disease without esophagitis; F31.9 Bipolar disorder, unspecified; Z85.038 Personal history of other malignant neoplasm of large intestine; Z86.73 Personal history of transient ischemic attack (TIA), and cerebral infarction without residual deficits; Z95.1 Presence of aortocoronary bypass graft; Z95.810 Presence of automatic (implantable) cardiac defibrillator; Z95.5 Presence of coronary angioplasty implant and graft; Z79.899 Other long term (current) drug therapy; Z87.891 Personal history of nicotine dependence
CPT/HCPCS: 96365; 96366; G0463; J1250; J1642

== ENCOUNTER → 2018-11-07 | Outpatient (CLI) | payer OTHER ==
[2018-11-07] VITALS (8 sets, daily range): BP systolic 105–129; BP diastolic 56–77
[~2018-11-07] MED LIST changes: +DOBUTamine 1000MCG/ML 250 ML IV ONE
== END | disposition home or self-care (01) ==
LOC: CHF HDHVI 07:57
PROVIDERS: ATTEND Internal Medicine Cardiovascular Disease
DX: I13.0 Hypertensive heart and chronic kidney disease with heart failure and stage 1 through stage 4 chronic kidney disease, or unspecified chronic kidney disease (principal); E11.22 Type 2 diabetes mellitus with diabetic chronic kidney disease; N18.3 Chronic kidney disease, stage 3 (moderate); I50.22 Chronic systolic (congestive) heart failure; D63.1 Anemia in chronic kidney disease; I25.10 Atherosclerotic heart disease of native coronary artery without angina pectoris; J44.9 Chronic obstructive pulmonary disease, unspecified; I48.1 Persistent atrial fibrillation; E78.5 Hyperlipidemia, unspecified; E03.9 Hypothyroidism, unspecified; I25.2 Old myocardial infarction; G89.29 Other chronic pain; M19.072 Primary osteoarthritis, left ankle and foot; E78.00 Pure hypercholesterolemia, unspecified; E11.40 Type 2 diabetes mellitus with diabetic neuropathy, unspecified; E11.319 Type 2 diabetes mellitus with unspecified diabetic retinopathy without macular edema; Z90.89 Acquired absence of other organs; Z87.891 Personal history of nicotine dependence; Z95.1 Presence of aortocoronary bypass graft; Z85.89 Personal history of malignant neoplasm of other organs and systems; Z95.5 Presence of coronary angioplasty implant and graft; Z79.899 Other long term (current) drug therapy; Z85.038 Personal history of other malignant neoplasm of large intestine; Z86.73 Personal history of transient ischemic attack (TIA), and cerebral infarction without residual deficits; Z95.810 Presence of automatic (implantable) cardiac defibrillator; Z79.01 Long term (current) use of anticoagulants
CPT/HCPCS: 96365; 96366; G0463; J1250; J1642

== ENCOUNTER → 2018-11-09 | Outpatient (CLI) | payer OTHER ==
[2018-11-09] VITALS (9 sets, daily range): BP systolic 109–132; BP diastolic 55–76
[~2018-11-09] MED LIST changes: +DOBUTamine 1000MCG/ML 250 ML IV SCH
== END | disposition home or self-care (01) ==
LOC: CHF HDHVI 07:53
PROVIDERS: ATTEND Internal Medicine Cardiovascular Disease
DX: I13.0 Hypertensive heart and chronic kidney disease with heart failure and stage 1 through stage 4 chronic kidney disease, or unspecified chronic kidney disease (principal); E11.22 Type 2 diabetes mellitus with diabetic chronic kidney disease; E11.21 Type 2 diabetes mellitus with diabetic nephropathy; E11.40 Type 2 diabetes mellitus with diabetic neuropathy, unspecified; E11.319 Type 2 diabetes mellitus with unspecified diabetic retinopathy without macular edema; N18.3 Chronic kidney disease, stage 3 (moderate); I50.22 Chronic systolic (congestive) heart failure; I50.84 End stage heart failure; D63.1 Anemia in chronic kidney disease; D63.8 Anemia in other chronic diseases classified elsewhere; J44.9 Chronic obstructive pulmonary disease, unspecified; E78.5 Hyperlipidemia, unspecified; I48.0 Paroxysmal atrial fibrillation; E03.9 Hypothyroidism, unspecified; I25.2 Old myocardial infarction; G89.29 Other chronic pain; E78.00 Pure hypercholesterolemia, unspecified; M19.072 Primary osteoarthritis, left ankle and foot; F31.9 Bipolar disorder, unspecified; K21.9 Gastro-esophageal reflux disease without esophagitis; Z79.01 Long term (current) use of anticoagulants; Z79.899 Other long term (current) drug therapy; Z98.890 Other specified postprocedural states; Z90.89 Acquired absence of other organs; Z87.11 Personal history of peptic ulcer disease; Z85.038 Personal history of other malignant neoplasm of large intestine; Z85.89 Personal history of malignant neoplasm of other organs and systems; Z87.440 Personal history of urinary (tract) infections; Z87.442 Personal history of urinary calculi; Z87.891 Personal history of nicotine dependence; Z95.1 Presence of aortocoronary bypass graft; Z95.810 Presence of automatic (implantable) cardiac defibrillator; Z98.61 Coronary angioplasty status; Z86.73 Personal history of transient ischemic attack (TIA), and cerebral infarction without residual deficits
CPT/HCPCS: 93701; 96365; 96366; G0463; J1250; J1642

== ENCOUNTER → 2018-11-12 | Outpatient (CLI) | payer OTHER ==
[~2018-11-12] VITALS: Ht 30.5 cm; Wt 0.5 kg
[2018-11-12] VITALS (8 sets, daily range): BP systolic 111–127; BP diastolic 57–69
[~2018-11-12] MED LIST changes: -DOBUTamine 1000MCG/ML 250 ML IV SCH
== END | disposition home or self-care (01) ==
LOC: CHF HDHVI 07:54
PROVIDERS: ATTEND Internal Medicine Cardiovascular Disease
DX: I13.0 Hypertensive heart and chronic kidney disease with heart failure and stage 1 through stage 4 chronic kidney disease, or unspecified chronic kidney disease (principal); E11.22 Type 2 diabetes mellitus with diabetic chronic kidney disease; N18.3 Chronic kidney disease, stage 3 (moderate); I50.22 Chronic systolic (congestive) heart failure; I48.0 Paroxysmal atrial fibrillation; E11.319 Type 2 diabetes mellitus with unspecified diabetic retinopathy without macular edema; E11.21 Type 2 diabetes mellitus with diabetic nephropathy; E11.40 Type 2 diabetes mellitus with diabetic neuropathy, unspecified; K21.9 Gastro-esophageal reflux disease without esophagitis; E78.5 Hyperlipidemia, unspecified; E03.9 Hypothyroidism, unspecified; I25.2 Old myocardial infarction; G89.29 Other chronic pain; I70.0 Atherosclerosis of aorta; F31.9 Bipolar disorder, unspecified; J44.9 Chronic obstructive pulmonary disease, unspecified; M19.072 Primary osteoarthritis, left ankle and foot; E78.00 Pure hypercholesterolemia, unspecified; Z79.899 Other long term (current) drug therapy; Z79.01 Long term (current) use of anticoagulants; Z87.891 Personal history of nicotine dependence; Z95.1 Presence of aortocoronary bypass graft; Z86.73 Personal history of transient ischemic attack (TIA), and cerebral infarction without residual deficits; Z95.810 Presence of automatic (implantable) cardiac defibrillator
CPT/HCPCS: 96365; 96366; G0463; J1250; J1642

== ENCOUNTER → 2018-11-14 | Outpatient (CLI) | payer OTHER ==
[~2018-11-14] VITALS: Ht 30.5 cm; Wt 91.2 kg
[2018-11-14 08:00] VITALS: BP 108/53
[2018-11-14 08:15] VITALS: BP 90/50
[2018-11-14 08:30] VITALS: BP 106/53
[2018-11-14 09:00] VITALS: BP 98/49
[2018-11-14 09:30] VITALS: BP 105/55
[2018-11-14 10:50] VITALS: BP 108/49
== END | disposition home or self-care (01) ==
LOC: CHF HDHVI 08:03
PROVIDERS: ATTEND Internal Medicine Cardiovascular Disease
DX: I13.0 Hypertensive heart and chronic kidney disease with heart failure and stage 1 through stage 4 chronic kidney disease, or unspecified chronic kidney disease (principal); E11.22 Type 2 diabetes mellitus with diabetic chronic kidney disease; N18.3 Chronic kidney disease, stage 3 (moderate); I50.22 Chronic systolic (congestive) heart failure; I25.10 Atherosclerotic heart disease of native coronary artery without angina pectoris; I25.2 Old myocardial infarction; I48.1 Persistent atrial fibrillation; J44.9 Chronic obstructive pulmonary disease, unspecified; K21.9 Gastro-esophageal reflux disease without esophagitis; E78.5 Hyperlipidemia, unspecified; E11.319 Type 2 diabetes mellitus with unspecified diabetic retinopathy without macular edema; M19.072 Primary osteoarthritis, left ankle and foot; E11.40 Type 2 diabetes mellitus with diabetic neuropathy, unspecified; E78.00 Pure hypercholesterolemia, unspecified; E03.9 Hypothyroidism, unspecified; F31.9 Bipolar disorder, unspecified; Z79.01 Long term (current) use of anticoagulants; Z79.899 Other long term (current) drug therapy; Z87.891 Personal history of nicotine dependence; Z95.5 Presence of coronary angioplasty implant and graft; Z95.1 Presence of aortocoronary bypass graft; Z85.038 Personal history of other malignant neoplasm of large intestine; Z86.73 Personal history of transient ischemic attack (TIA), and cerebral infarction without residual deficits; Z95.810 Presence of automatic (implantable) cardiac defibrillator
CPT/HCPCS: 96365; 96366; G0463; J1250; J1642

== ENCOUNTER → 2018-11-16 | Outpatient (CLI) | payer OTHER ==
[~2018-11-16] VITALS: Ht 30.5 cm; Wt 90.2 kg
[2018-11-16] VITALS (10 sets, daily range): BP systolic 101–125; BP diastolic 53–76
== END | disposition home or self-care (01) ==
LOC: CHF HDHVI 07:49
PROVIDERS: ATTEND Internal Medicine Cardiovascular Disease
DX: E11.22 Type 2 diabetes mellitus with diabetic chronic kidney disease (principal); I13.0 Hypertensive heart and chronic kidney disease with heart failure and stage 1 through stage 4 chronic kidney disease, or unspecified chronic kidney disease; N18.3 Chronic kidney disease, stage 3 (moderate); I50.22 Chronic systolic (congestive) heart failure; I43 Cardiomyopathy in diseases classified elsewhere; I25.10 Atherosclerotic heart disease of native coronary artery without angina pectoris; F31.9 Bipolar disorder, unspecified; J44.9 Chronic obstructive pulmonary disease, unspecified; K21.9 Gastro-esophageal reflux disease without esophagitis; E78.5 Hyperlipidemia, unspecified; E03.9 Hypothyroidism, unspecified; I25.2 Old myocardial infarction; G89.29 Other chronic pain; Z79.899 Other long term (current) drug therapy; I48.0 Paroxysmal atrial fibrillation; Z95.1 Presence of aortocoronary bypass graft; E78.00 Pure hypercholesterolemia, unspecified; E11.40 Type 2 diabetes mellitus with diabetic neuropathy, unspecified; D63.1 Anemia in chronic kidney disease
CPT/HCPCS: 96365; 96366; G0463; J1250; J1642

== ENCOUNTER → 2018-11-19 | Outpatient (CLI) | payer OTHER ==
[2018-11-19] VITALS (9 sets, daily range): BP systolic 103–135; BP diastolic 55–84
[~2018-11-19] VITALS: Ht 30.5 cm; Wt 90.7 kg
--- NOTE | 2018-11-19 07:30 | NUR ---
PT. TO [facility]F CLINIC FOR DOBUTAMIN E INFUSION PER DR. ENGLISH. ORDERS RECEIVED AND CARRIED OUT. SEE NSG ASSESS.
--- NOTE | 2018-11-19 07:40 | NUR ---
Ayah Cath Insertion 20 gauge Ayah Cath inserted using sterile technique in the upper chest with occlusive dressing over saucedo needle. Patient tolerated procedure well. See e-MAR for medications given during this visit.
--- NOTE | 2018-11-19 07:44 | NUR ---
Clinic Provider Clinic Provider into see pt with new orders received and carried out. Dobutamine gtt started at {5}mcg/kg/hr per MD order.
--- NOTE | 2018-11-19 10:44 | NUR ---
dobutamine infusion completed. tolerated well. VS WNL. Ayah Cath Removal Quinones needle D/C'd after Heparin flush per protocol. See e-MAR for medications given during this visit. Sterile occlusive dressing to site. Patient tolerated procedure well. Site benign post infusion. Discharge Instructions See e-MAR for any mediations given with this visit. Patient education given on disease process. Patient verbalized understanding. Previous labs reviewed. Patient discharged in stable condition with after care instructions and follow up appointment FOR Monday11/21/18
--- NOTE | 2018-11-19 10:45 | NUR ---
CHF MEDICATION ADMINISTRATION DOBUTAMINE GTT AT 5 MCG/KG/MIN START AT 0744/STOP AT 1044 (27.3 ML/HR) HEPARIN 500 UNITS IVP AT 1044
== END | disposition home or self-care (01) ==
LOC: CHF HDHVI 07:35
PROVIDERS: ATTEND Internal Medicine Cardiovascular Disease
DX: I13.0 Hypertensive heart and chronic kidney disease with heart failure and stage 1 through stage 4 chronic kidney disease, or unspecified chronic kidney disease (principal); E11.22 Type 2 diabetes mellitus with diabetic chronic kidney disease; N18.3 Chronic kidney disease, stage 3 (moderate); I50.22 Chronic systolic (congestive) heart failure; I25.10 Atherosclerotic heart disease of native coronary artery without angina pectoris; E11.21 Type 2 diabetes mellitus with diabetic nephropathy; E11.40 Type 2 diabetes mellitus with diabetic neuropathy, unspecified; E11.319 Type 2 diabetes mellitus with unspecified diabetic retinopathy without macular edema; I48.0 Paroxysmal atrial fibrillation; I42.0 Dilated cardiomyopathy; I25.5 Ischemic cardiomyopathy; I25.2 Old myocardial infarction; J44.9 Chronic obstructive pulmonary disease, unspecified; I70.0 Atherosclerosis of aorta; E78.5 Hyperlipidemia, unspecified; E03.9 Hypothyroidism, unspecified; E78.00 Pure hypercholesterolemia, unspecified; K21.9 Gastro-esophageal reflux disease without esophagitis; M19.072 Primary osteoarthritis, left ankle and foot; F31.9 Bipolar disorder, unspecified; G89.29 Other chronic pain; Z79.01 Long term (current) use of anticoagulants; Z95.1 Presence of aortocoronary bypass graft; Z85.038 Personal history of other malignant neoplasm of large intestine; Z95.810 Presence of automatic (implantable) cardiac defibrillator; Z87.891 Personal history of nicotine dependence; Z86.73 Personal history of transient ischemic attack (TIA), and cerebral infarction without residual deficits; Z98.61 Coronary angioplasty status
CPT/HCPCS: 96365; 96366; G0463; J1250; J1642

== ENCOUNTER → 2018-11-21 | Outpatient (CLI) | payer OTHER ==
[2018-11-21] VITALS (8 sets, daily range): BP systolic 86–115; BP diastolic 41–60
[~2018-11-21] MED LIST changes: +CYANOCOBALAMIN (B-12) 1000 MCG/1 ML VIAL IM ONE; +CYANOCOBALAMIN (B-12) 1000 MCG/1 ML VIAL ONE
--- NOTE | 2018-11-21 08:00 | NUR ---
IN TO CLINIC FOR SCHEDULED INFUSION. AFFECT CHEERFUL AND COOPERATIVE. DENIES PAIN. Ayah Cath Insertion 20 gauge Ayah Cath inserted using sterile technique in the upper chest with occlusive dressing over saucedo needle. Patient tolerated procedure well. Ordered labs drawn and sent. See e-MAR for medications given during this visit.
--- NOTE | 2018-11-21 08:13 | NUR ---
START IV MEDICATION PER ORDER. VS WNL.
--- NOTE | 2018-11-21 10:00 | NUR ---
TOLERATING DOBUTAMINE INFUSION WELL. VS WNL.
--- NOTE | 2018-11-21 11:15 | NUR ---
INFUSION COMPLETED. TOLERATED WELL. VS WNL. Discharge Instructions See e-MAR for any mediations given with this visit. Patient education given on disease process. Patient verbalized understanding. Previous labs reviewed. Patient discharged in stable condition with after care instructions and follow up appointment FOR 11/23/18
[2018-11-21 12:12] LABS: Hematocrit 42.4 % (41.0-53.0); Hemoglobin 14.4 g/dL (13.5-17.5); Mean Corpuscular Hemoglobin 33.1 pg (28.0-32.0); Mean Corpuscular Volume 97.4 fL (80.0-100.0); Platelet Count (auto) 146 10^3/uL (140-450); Red Blood Cells 4.35 10^6/uL (4.5-5.90); Red Cell Distribution Width 13.6 % (11.8-14.3); White Blood Cell 3.8 10^3/uL (4.4-10.8)
[2018-11-21 12:18] LABS: BUN/Creatinine Ratio 13.5; Basophils % (manual) 0 (0.0-2.0); Blast Cells 0; Calcium 8.4 mg/dL (8.5-10.1); Magnesium 2.5 mg/dL (1.6-2.6); Metamyelocytes % 0; Myelocytes % 0; Potassium 3.8 mmol/L (3.5-5.1); Promyelocytes % 0; Reactive Lymphocytes 0
[2018-11-21 12:55] LABS: Band Neutrophils % (manual) 1; Eosinophils % (manual) 8 (0-7); Lymphocytes % (manual) 34 (10.0-50.0); Monocytes % (manual) 14 (0-12)
== END | disposition home or self-care (01) ==
LOC: CHF HDHVI 08:10
PROVIDERS: ATTEND Internal Medicine Cardiovascular Disease
DX: I13.0 Hypertensive heart and chronic kidney disease with heart failure and stage 1 through stage 4 chronic kidney disease, or unspecified chronic kidney disease (principal); E11.22 Type 2 diabetes mellitus with diabetic chronic kidney disease; I50.22 Chronic systolic (congestive) heart failure; N18.3 Chronic kidney disease, stage 3 (moderate); I25.10 Atherosclerotic heart disease of native coronary artery without angina pectoris; I48.0 Paroxysmal atrial fibrillation; I48.1 Persistent atrial fibrillation; E83.40 Disorders of magnesium metabolism, unspecified; D64.9 Anemia, unspecified; I70.0 Atherosclerosis of aorta; F31.9 Bipolar disorder, unspecified; E11.40 Type 2 diabetes mellitus with diabetic neuropathy, unspecified; E11.319 Type 2 diabetes mellitus with unspecified diabetic retinopathy without macular edema; I42.9 Cardiomyopathy, unspecified; M19.072 Primary osteoarthritis, left ankle and foot; I25.2 Old myocardial infarction; E78.5 Hyperlipidemia, unspecified; K21.9 Gastro-esophageal reflux disease without esophagitis; E03.9 Hypothyroidism, unspecified; G89.29 Other chronic pain; E78.00 Pure hypercholesterolemia, unspecified; Z79.899 Other long term (current) drug therapy; Z87.891 Personal history of nicotine dependence; Z95.1 Presence of aortocoronary bypass graft; Z85.038 Personal history of other malignant neoplasm of large intestine; Z95.810 Presence of automatic (implantable) cardiac defibrillator; Z79.01 Long term (current) use of anticoagulants
CPT/HCPCS: 36415; 80048; 83735; 83880; 85007; 85027; 96365; 96366; 96372; G0463; J1250; J1642; J3420

== ENCOUNTER → 2018-11-23 | Outpatient (CLI) | payer OTHER ==
[2018-11-23] VITALS (8 sets, daily range): BP systolic 97–119; BP diastolic 48–68
[~2018-11-23] MED LIST changes: -CYANOCOBALAMIN (B-12) 1000 MCG/1 ML VIAL IM ONE; -CYANOCOBALAMIN (B-12) 1000 MCG/1 ML VIAL ONE
--- NOTE | 2018-11-23 07:30 | NUR ---
PT. TO CHF CLINIC FOR DOBUTREX INFUSION PER DR. ENGLISH . ORDERS RECEIVED AND CARRIED OUT. SEE NSG ASSESS. PREVIOUS LABS REVIEWED WITH PT. WITH ADDITIONAL INSTRUCTIONS TO INCREASE K-DUR BY 10 MEQ ON . AND . ONLY PT'S K+ LEVELS HAVE BEEN TRENDING DOWN.
--- NOTE | 2018-11-23 07:50 | NUR ---
Clinic Provider Clinic Provider into see pt with new orders received and carried out. Dobutamine gtt started at {5}mcg/kg/hr per MD order.
--- NOTE | 2018-11-23 11:00 | NUR ---
CHF PT DOBUTAMINE COMPLETE 1058 Ayah Cath Removal Quinones needle D/C'd after Heparin flush per protocol. See e-MAR for medications given during this visit. Sterile occlusive dressing to site. Patient tolerated procedure well. Site benign post infusion.
== END | disposition home or self-care (01) ==
LOC: CHF HDHVI 07:41
PROVIDERS: ATTEND Internal Medicine Cardiovascular Disease
DX: I25.10 Atherosclerotic heart disease of native coronary artery without angina pectoris (principal); I13.0 Hypertensive heart and chronic kidney disease with heart failure and stage 1 through stage 4 chronic kidney disease, or unspecified chronic kidney disease; E11.22 Type 2 diabetes mellitus with diabetic chronic kidney disease; N18.3 Chronic kidney disease, stage 3 (moderate); I50.22 Chronic systolic (congestive) heart failure; D63.1 Anemia in chronic kidney disease; I42.8 Other cardiomyopathies; I70.0 Atherosclerosis of aorta; I25.2 Old myocardial infarction; I42.9 Cardiomyopathy, unspecified; J44.9 Chronic obstructive pulmonary disease, unspecified; I48.1 Persistent atrial fibrillation; E11.40 Type 2 diabetes mellitus with diabetic neuropathy, unspecified; E11.21 Type 2 diabetes mellitus with diabetic nephropathy; E11.319 Type 2 diabetes mellitus with unspecified diabetic retinopathy without macular edema; K21.9 Gastro-esophageal reflux disease without esophagitis; E78.5 Hyperlipidemia, unspecified; E03.9 Hypothyroidism, unspecified; G89.29 Other chronic pain; F31.9 Bipolar disorder, unspecified; E78.00 Pure hypercholesterolemia, unspecified; M19.072 Primary osteoarthritis, left ankle and foot; Z79.01 Long term (current) use of anticoagulants; Z79.899 Other long term (current) drug therapy; Z87.891 Personal history of nicotine dependence; Z86.73 Personal history of transient ischemic attack (TIA), and cerebral infarction without residual deficits; Z95.1 Presence of aortocoronary bypass graft; Z95.810 Presence of automatic (implantable) cardiac defibrillator
CPT/HCPCS: 96365; 96366; G0463; J1250; J1642

== ENCOUNTER → 2018-11-26 | Outpatient (CLI) | payer OTHER ==
[2018-11-26] VITALS (7 sets, daily range): BP systolic 105–117; BP diastolic 58–82
--- NOTE | 2018-11-26 07:35 | NUR ---
PT. TO CHF CLINIC FOR EVAL AND TX FOR DOBUTAMINE DRIP DRIP. ORDERS RECEIVED AND CARRIED OUT. SEE NSG ASSESS.
--- NOTE | 2018-11-26 07:45 | NUR ---
Ayah Cath Insertion 20 gauge Ayah Cath inserted using sterile technique in the upper chest with occlusive dressing over saucedo needle. Patient tolerated procedure well. . See e-MAR for medications given during this visit.
--- NOTE | 2018-11-26 07:50 | NUR ---
Clinic Provider Clinic Provider into see pt with new orders received and carried out. Dobutamine gtt started at {5}mcg/kg/hr per MD order.
--- NOTE | 2018-11-26 10:50 | NUR ---
Ayah Cath Removal Quinones needle D/C'd after Heparin flush per protocol. See e-MAR for medications given during this visit. Sterile occlusive dressing to site. Patient tolerated procedure well. Site benign post infusion.
--- NOTE | 2018-11-26 10:55 | NUR ---
Discharge Instructions See e-MAR for any mediations given with this visit. Patient education given on disease process. Patient verbalized understanding. Previous labs reviewed. Patient discharged in stable condition with after care instructions and follow up appointment.
== END | disposition home or self-care (01) ==
LOC: CHF HDHVI 08:02
PROVIDERS: ATTEND Internal Medicine Cardiovascular Disease
DX: I13.0 Hypertensive heart and chronic kidney disease with heart failure and stage 1 through stage 4 chronic kidney disease, or unspecified chronic kidney disease (principal); E11.22 Type 2 diabetes mellitus with diabetic chronic kidney disease; N18.3 Chronic kidney disease, stage 3 (moderate); I50.22 Chronic systolic (congestive) heart failure; I25.10 Atherosclerotic heart disease of native coronary artery without angina pectoris; I42.8 Other cardiomyopathies; I70.0 Atherosclerosis of aorta; I48.1 Persistent atrial fibrillation; J44.9 Chronic obstructive pulmonary disease, unspecified; K21.9 Gastro-esophageal reflux disease without esophagitis; E78.5 Hyperlipidemia, unspecified; E03.9 Hypothyroidism, unspecified; I25.2 Old myocardial infarction; M19.072 Primary osteoarthritis, left ankle and foot; E78.00 Pure hypercholesterolemia, unspecified; E11.21 Type 2 diabetes mellitus with diabetic nephropathy; E11.40 Type 2 diabetes mellitus with diabetic neuropathy, unspecified; E11.319 Type 2 diabetes mellitus with unspecified diabetic retinopathy without macular edema; G89.29 Other chronic pain; F31.9 Bipolar disorder, unspecified; Z86.73 Personal history of transient ischemic attack (TIA), and cerebral infarction without residual deficits; Z79.01 Long term (current) use of anticoagulants; Z95.1 Presence of aortocoronary bypass graft; Z87.891 Personal history of nicotine dependence; Z95.810 Presence of automatic (implantable) cardiac defibrillator
CPT/HCPCS: 96365; 96366; G0463; J1250; J1642

== ENCOUNTER → 2018-11-28 | Outpatient (CLI) | payer OTHER ==
[2018-11-28] VITALS (8 sets, daily range): BP systolic 93–114; BP diastolic 42–64
--- NOTE | 2018-11-28 11:00 | NUR ---
IN TO CLINIC AT 0730 FOR SCHEDULED INFUSION. VS WNL. Ayah Cath Insertion 20 gauge Ayah Cath inserted using sterile technique in the upper chest with occlusive dressing over saucedo needle. Patient tolerated procedure well. See e-MAR for medications given during this visit. ACCESSED BY GISELA ALVAREZ. SITE USED FOR DOBUTAMINE INFUSION AND TOLERATED WELL. SITE BENIGN POST INFUSION. SEE FREQUENT VITAL SIGNS OBTAINED. IN DIRECT LINE OF SIGHT FOR ENTIRE INFUSION AND TOLERATED WELL WITH VS WNL. WITHOUT DISTRESS OR DISCOMFORT. Ayah Cath Removal Saucedo needle D/C'd after Heparin flush per protocol. See e-MAR for medications given during this visit. Sterile occlusive dressing to site. Patient tolerated procedure well. Site benign post infusion. MEDICATION ADMINISTRATION DOBUTAMINE GTT AT 5 MCG/KG/MIN START AT 0752/STOP AT 1055 HEPARIN 500 UNITS IVP TO RIGHT CHEST PORT
[2018-11-28 13:16] LABS: Potassium 4.1 mmol/L (3.5-5.1)
== END | disposition home or self-care (01) ==
LOC: CHF HDHVI 08:17
PROVIDERS: ATTEND Internal Medicine Cardiovascular Disease
DX: I13.0 Hypertensive heart and chronic kidney disease with heart failure and stage 1 through stage 4 chronic kidney disease, or unspecified chronic kidney disease (principal); E11.22 Type 2 diabetes mellitus with diabetic chronic kidney disease; N18.3 Chronic kidney disease, stage 3 (moderate); I50.22 Chronic systolic (congestive) heart failure; I25.10 Atherosclerotic heart disease of native coronary artery without angina pectoris; R94.4 Abnormal results of kidney function studies; E87.6 Hypokalemia; E55.9 Vitamin D deficiency, unspecified; I42.8 Other cardiomyopathies; I70.0 Atherosclerosis of aorta; I48.1 Persistent atrial fibrillation; J44.9 Chronic obstructive pulmonary disease, unspecified; K21.9 Gastro-esophageal reflux disease without esophagitis; E78.5 Hyperlipidemia, unspecified; E03.9 Hypothyroidism, unspecified; I25.2 Old myocardial infarction; M19.072 Primary osteoarthritis, left ankle and foot; E78.00 Pure hypercholesterolemia, unspecified; E11.21 Type 2 diabetes mellitus with diabetic nephropathy; E11.40 Type 2 diabetes mellitus with diabetic neuropathy, unspecified; E11.319 Type 2 diabetes mellitus with unspecified diabetic retinopathy without macular edema; G89.29 Other chronic pain; F31.9 Bipolar disorder, unspecified; Z86.73 Personal history of transient ischemic attack (TIA), and cerebral infarction without residual deficits; Z79.01 Long term (current) use of anticoagulants; Z95.1 Presence of aortocoronary bypass graft; Z87.891 Personal history of nicotine dependence; Z95.810 Presence of automatic (implantable) cardiac defibrillator
CPT/HCPCS: 36415; 82306; 82565; 83880; 84132; 84520; 96365; 96366; G0463; J1250; J1642

== ENCOUNTER → 2018-11-30 | Outpatient (CLI) | payer OTHER ==
[2018-11-30] VITALS (9 sets, daily range): BP systolic 99–150; BP diastolic 51–70
[~2018-11-30] VITALS: Ht 30.5 cm; Wt 90.7 kg
--- NOTE | 2018-11-30 07:47 | NUR ---
IN TO CLINIC FOR SCHEDULED INFUSION. Ayah Cath Insertion 20 gauge Ayah Cath inserted using sterile technique in the upper chest with occlusive dressing over saucedo needle. Patient tolerated procedure well. Ordered labs drawn and sent. See e-MAR for medications given during this visit. DOBUTAMINE GTT STARTED AT 5 MCG/KG/MIN (27.3 ML/HR)
--- NOTE | 2018-11-30 09:00 | NUR ---
DOBUTAMINE INFUSION ONGOING, TOLERATING WELL. VS WNL
--- NOTE | 2018-11-30 10:47 | NUR ---
INFUSION COMPLETED. TOLERATED WELL.
--- NOTE | 2018-11-30 10:54 | NUR ---
Ayah Cath Removal Quinones needle D/C'd after Heparin flush per protocol. See e-MAR for medications given during this visit. Sterile occlusive dressing to site. Patient tolerated procedure well. Site benign post infusion. Discharge Instructions See e-MAR for any mediations given with this visit. Patient education given on disease process. Patient verbalized understanding. Previous labs reviewed. Patient discharged in stable condition with after care instructions and follow up appointment FOR 12/03/18 MEDICATION ADMINISTRATION. DOBUTAMINE GTT AT 5 MCG/KG/MIN START AT 0747/STOP AT 1047 (27.3ML/HR) HEPARIN 500 UNITS IVP TO RIGHT CHEST PORT AT 1047
== END | disposition home or self-care (01) ==
LOC: CHF HDHVI 07:53
PROVIDERS: ATTEND Internal Medicine Cardiovascular Disease
DX: I13.0 Hypertensive heart and chronic kidney disease with heart failure and stage 1 through stage 4 chronic kidney disease, or unspecified chronic kidney disease (principal); E11.22 Type 2 diabetes mellitus with diabetic chronic kidney disease; N18.3 Chronic kidney disease, stage 3 (moderate); I50.22 Chronic systolic (congestive) heart failure; I25.10 Atherosclerotic heart disease of native coronary artery without angina pectoris; I42.9 Cardiomyopathy, unspecified; I70.0 Atherosclerosis of aorta; I48.1 Persistent atrial fibrillation; J44.9 Chronic obstructive pulmonary disease, unspecified; K21.9 Gastro-esophageal reflux disease without esophagitis; E78.5 Hyperlipidemia, unspecified; E03.9 Hypothyroidism, unspecified; I25.2 Old myocardial infarction; M19.072 Primary osteoarthritis, left ankle and foot; E78.00 Pure hypercholesterolemia, unspecified; E11.21 Type 2 diabetes mellitus with diabetic nephropathy; E11.40 Type 2 diabetes mellitus with diabetic neuropathy, unspecified; E11.319 Type 2 diabetes mellitus with unspecified diabetic retinopathy without macular edema; G89.29 Other chronic pain; F31.9 Bipolar disorder, unspecified; Z86.73 Personal history of transient ischemic attack (TIA), and cerebral infarction without residual deficits; Z79.01 Long term (current) use of anticoagulants; Z95.1 Presence of aortocoronary bypass graft; Z87.891 Personal history of nicotine dependence; Z95.810 Presence of automatic (implantable) cardiac defibrillator
CPT/HCPCS: 96365; 96366; G0463; J1250; J1642

== ENCOUNTER → 2018-12-03 | Outpatient (CLI) | payer OTHER ==
[2018-12-03] VITALS (8 sets, daily range): BP systolic 101–126; BP diastolic 49–90
--- NOTE | 2018-12-03 07:45 | NUR ---
IN TO CLINIC FOR SCHEDULED INFUSION. AFFECT CHEERFUL AND WITHOUT DISTRESS OR DISCOMFORT. VS WNL. Ayah Cath Insertion 20 gauge Ayah Cath inserted using sterile technique in the upper chest with occlusive dressing over saucedo needle. Patient tolerated procedure well. See e-MAR for medications given during this visit. START DOBUTAMINE GTT AT 5 MCG/KG/MIN
--- NOTE | 2018-12-03 08:48 | NUR ---
INFUSION ONGOING. VS WNL.
--- NOTE | 2018-12-03 09:30 | NUR ---
CHF PT UP TO REST ROOM . RESUMED DOBUTAMINE THERAPY
--- NOTE | 2018-12-03 10:55 | NUR ---
CHF IV DOBUTAMINE COMPLETE 1049 Ayah Cath Removal Quinones needle D/C'd after Heparin flush per protocol. See e-MAR for medications given during this visit. Sterile occlusive dressing to site. Patient tolerated procedure well. Site benign post infusion. F/U [facility] FOR CONTINUED DOBUTAMINE THERAPY.
== END | disposition home or self-care (01) ==
LOC: CHF HDHVI 08:07
PROVIDERS: ATTEND Internal Medicine Cardiovascular Disease
DX: I13.0 Hypertensive heart and chronic kidney disease with heart failure and stage 1 through stage 4 chronic kidney disease, or unspecified chronic kidney disease (principal); E11.22 Type 2 diabetes mellitus with diabetic chronic kidney disease; N18.3 Chronic kidney disease, stage 3 (moderate); I50.22 Chronic systolic (congestive) heart failure; I25.810 Atherosclerosis of coronary artery bypass graft(s) without angina pectoris; I48.1 Persistent atrial fibrillation; I70.0 Atherosclerosis of aorta; I25.2 Old myocardial infarction; J44.9 Chronic obstructive pulmonary disease, unspecified; K21.9 Gastro-esophageal reflux disease without esophagitis; E78.5 Hyperlipidemia, unspecified; E03.9 Hypothyroidism, unspecified; M19.072 Primary osteoarthritis, left ankle and foot; E78.00 Pure hypercholesterolemia, unspecified; E11.40 Type 2 diabetes mellitus with diabetic neuropathy, unspecified; E11.319 Type 2 diabetes mellitus with unspecified diabetic retinopathy without macular edema; E11.21 Type 2 diabetes mellitus with diabetic nephropathy; F31.9 Bipolar disorder, unspecified; G89.29 Other chronic pain; Z86.73 Personal history of transient ischemic attack (TIA), and cerebral infarction without residual deficits; Z95.810 Presence of automatic (implantable) cardiac defibrillator; Z79.01 Long term (current) use of anticoagulants; Z95.1 Presence of aortocoronary bypass graft; Z87.891 Personal history of nicotine dependence
CPT/HCPCS: 96365; 96366; G0463; J1250; J1642

== ENCOUNTER → 2018-12-05 | Outpatient (CLI) | payer OTHER ==
[2018-12-05] VITALS (8 sets, daily range): BP systolic 108–138; BP diastolic 55–78
[~2018-12-05] VITALS: Ht 30.5 cm; Wt 41.3 kg
--- NOTE | 2018-12-05 10:51 | NUR ---
IN TO CLINIC AT 0730 FOR SCHEDULED DOBUTAMINE INFUSION. RIGHT CHEST PORT ACCESSED PER PROTOCOL. SITE USED FOR INFUSION AND REMAINED BENIGN POST INFUSION. VS WNL. WITHOUT DISTRESS OR DISCOMFORT. TOLERATED INFUSION WELL. Ayah Cath Removal Quinones needle D/C'd after Heparin flush per protocol. See e-MAR for medications given during this visit. Sterile occlusive dressing to site. Patient tolerated procedure well. Site benign post infusion. SEE FREQUENT VITAL SIGNS. ALL CARE ADMINISTERED BY THIS RN. MEDICATION ADMINISTRATION DOBUTAMINE GTT AT 5 MCG/KG/MIN START AT 0750/STOP AT 1049 (27.35 ML/HR) HEPARIN 500 UNITS IVP AT 1049
== END | disposition home or self-care (01) ==
LOC: CHF HDHVI 08:10
PROVIDERS: ATTEND Internal Medicine Cardiovascular Disease
DX: I13.0 Hypertensive heart and chronic kidney disease with heart failure and stage 1 through stage 4 chronic kidney disease, or unspecified chronic kidney disease (principal); I50.22 Chronic systolic (congestive) heart failure; I50.84 End stage heart failure; E11.22 Type 2 diabetes mellitus with diabetic chronic kidney disease; N18.3 Chronic kidney disease, stage 3 (moderate); E11.21 Type 2 diabetes mellitus with diabetic nephropathy; E11.40 Type 2 diabetes mellitus with diabetic neuropathy, unspecified; E11.319 Type 2 diabetes mellitus with unspecified diabetic retinopathy without macular edema; J44.9 Chronic obstructive pulmonary disease, unspecified; I48.1 Persistent atrial fibrillation; I70.0 Atherosclerosis of aorta; I25.10 Atherosclerotic heart disease of native coronary artery without angina pectoris; I25.2 Old myocardial infarction; K21.9 Gastro-esophageal reflux disease without esophagitis; E78.00 Pure hypercholesterolemia, unspecified; I42.0 Dilated cardiomyopathy; I25.5 Ischemic cardiomyopathy; M19.072 Primary osteoarthritis, left ankle and foot; E78.5 Hyperlipidemia, unspecified; E03.9 Hypothyroidism, unspecified; K74.1 Hepatic sclerosis; G89.29 Other chronic pain; F31.9 Bipolar disorder, unspecified; Z85.038 Personal history of other malignant neoplasm of large intestine; Z86.73 Personal history of transient ischemic attack (TIA), and cerebral infarction without residual deficits; Z79.01 Long term (current) use of anticoagulants; Z79.899 Other long term (current) drug therapy; Z95.810 Presence of automatic (implantable) cardiac defibrillator; Z95.1 Presence of aortocoronary bypass graft; Z95.5 Presence of coronary angioplasty implant and graft; Z87.891 Personal history of nicotine dependence
CPT/HCPCS: 96365; 96366; G0463; J1250; J1642

== ENCOUNTER → 2018-12-07 | Outpatient (CLI) | payer OTHER ==
[2018-12-07] VITALS (8 sets, daily range): BP systolic 104–123; BP diastolic 55–67
== END | disposition home or self-care (01) ==
LOC: CHF HDHVI 07:59
PROVIDERS: ATTEND Internal Medicine Cardiovascular Disease
DX: I13.0 Hypertensive heart and chronic kidney disease with heart failure and stage 1 through stage 4 chronic kidney disease, or unspecified chronic kidney disease (principal); E11.22 Type 2 diabetes mellitus with diabetic chronic kidney disease; N18.3 Chronic kidney disease, stage 3 (moderate); I50.22 Chronic systolic (congestive) heart failure; I48.1 Persistent atrial fibrillation; D64.9 Anemia, unspecified; I25.10 Atherosclerotic heart disease of native coronary artery without angina pectoris; I70.0 Atherosclerosis of aorta; J44.9 Chronic obstructive pulmonary disease, unspecified; I25.2 Old myocardial infarction; I42.9 Cardiomyopathy, unspecified; E11.21 Type 2 diabetes mellitus with diabetic nephropathy; E11.40 Type 2 diabetes mellitus with diabetic neuropathy, unspecified; E11.319 Type 2 diabetes mellitus with unspecified diabetic retinopathy without macular edema; E78.5 Hyperlipidemia, unspecified; E03.9 Hypothyroidism, unspecified; M19.072 Primary osteoarthritis, left ankle and foot; F31.9 Bipolar disorder, unspecified; G89.29 Other chronic pain; Z95.810 Presence of automatic (implantable) cardiac defibrillator; Z85.038 Personal history of other malignant neoplasm of large intestine; Z95.5 Presence of coronary angioplasty implant and graft; Z79.01 Long term (current) use of anticoagulants
CPT/HCPCS: 96365; 96366; G0463; J1250; J1642

== ENCOUNTER → 2018-12-10 | Outpatient (CLI) | payer OTHER ==
[2018-12-10] VITALS (9 sets, daily range): BP systolic 101–127; BP diastolic 52–71
--- NOTE | 2018-12-10 07:30 | NUR ---
PT. TO [facility]F CLINIC FOR DOBUTAMINE INFUSION PER MD ORDER. PT. WITH SOME SLIGHT EXERCISE RESTRICTIONS OVER THE WEEKEND DUE TO INCLEMENT WEATHER. MD ORDERS RECEIVED AND CARRIED OUT. SEE NSG ASSESS.
--- NOTE | 2018-12-10 07:40 | NUR ---
Clinic Provider Clinic Provider into see pt with new orders received and carried out. Dobutamine gtt started at {5}mcg/kg/hr per MD order. .
--- NOTE | 2018-12-10 10:45 | NUR ---
infusion completed. tolerated well vs wnl. Ayah Cath Removal Quinones needle D/C'd after Heparin flush per protocol. See e-MAR for medications given during this visit. Sterile occlusive dressing to site. Patient tolerated procedure well. Site benign post infusion.
--- NOTE | 2018-12-10 10:50 | NUR ---
Discharge Instructions See e-MAR for any mediations given with this visit. Patient education given on disease process. Patient verbalized understanding. Previous labs reviewed. Patient discharged in stable condition with after care instructions and follow up appointment FOR 12/12/18 MEDICATION ADMINISTRATION HEPARIN 500 UNITS IVP TO RIGHT CHEST PORT AT 1045 DOBUTAMINE DRIP AT 5 MCG/KG/MIN START AT 0740/STOP AT 1050 (27.5 ML/HR)
== END | disposition home or self-care (01) ==
LOC: CHF HDHVI 08:05
PROVIDERS: ATTEND Internal Medicine Cardiovascular Disease
DX: I13.0 Hypertensive heart and chronic kidney disease with heart failure and stage 1 through stage 4 chronic kidney disease, or unspecified chronic kidney disease (principal); I50.22 Chronic systolic (congestive) heart failure; I50.84 End stage heart failure; I42.8 Other cardiomyopathies; I25.10 Atherosclerotic heart disease of native coronary artery without angina pectoris; E11.22 Type 2 diabetes mellitus with diabetic chronic kidney disease; N18.3 Chronic kidney disease, stage 3 (moderate); E11.21 Type 2 diabetes mellitus with diabetic nephropathy; E11.40 Type 2 diabetes mellitus with diabetic neuropathy, unspecified; E11.319 Type 2 diabetes mellitus with unspecified diabetic retinopathy without macular edema; J44.9 Chronic obstructive pulmonary disease, unspecified; I70.0 Atherosclerosis of aorta; E78.5 Hyperlipidemia, unspecified; E03.9 Hypothyroidism, unspecified; I25.2 Old myocardial infarction; I48.1 Persistent atrial fibrillation; K21.9 Gastro-esophageal reflux disease without esophagitis; E78.00 Pure hypercholesterolemia, unspecified; K74.1 Hepatic sclerosis; M19.072 Primary osteoarthritis, left ankle and foot; G89.29 Other chronic pain; F31.9 Bipolar disorder, unspecified; Z86.73 Personal history of transient ischemic attack (TIA), and cerebral infarction without residual deficits; Z85.038 Personal history of other malignant neoplasm of large intestine; Z79.899 Other long term (current) drug therapy; Z79.01 Long term (current) use of anticoagulants; Z95.810 Presence of automatic (implantable) cardiac defibrillator; Z95.5 Presence of coronary angioplasty implant and graft; Z87.891 Personal history of nicotine dependence
CPT/HCPCS: 96365; 96366; G0463; J1250; J1642

== ENCOUNTER → 2018-12-12 | Outpatient (CLI) | payer OTHER ==
[2018-12-12] VITALS (9 sets, daily range): BP systolic 95–131; BP diastolic 42–75
[~2018-12-12] VITALS: Ht 1 cm; Wt 40.8 kg
[~2018-12-12] MED LIST changes: +CYANOCOBALAMIN (B-12) 1000 MCG/1 ML VIAL ONE
--- NOTE | 2018-12-12 07:30 | NUR ---
PT. TO [facility]F CLINIC FOR DOBUTAMINE INFUSION PER MD ORDER. SEE NSG ASSESS.
--- NOTE | 2018-12-12 07:45 | NUR ---
Clinic Provider Clinic Provider into see pt with new orders received and carried out. Dobutamine gtt started at {5}mcg/kg/hr per MD order.
--- NOTE | 2018-12-12 10:46 | NUR ---
VS WNL. TOLERATED INFUSION WELL. Discharge Instructions See e-MAR for any mediations given with this visit. Patient education given on disease process. Patient verbalized understanding. Previous labs reviewed. Patient discharged in stable condition with after care instructions and follow up appointment FOR 12/14/18 MEDICATION ADMINISTRATION DOBUTAMINE GTT START AT 0745/STOP AT 1044 (27.45 ML/HR) HEPARIN 500 UNITS IVP TO RIGHT CHEST PORT AT 1044
[2018-12-12 11:55] LABS: Basophils # (auto) 0 uL; Basophils % (auto) 0.7 % (0.0-2.0); Eosinophils # (auto) 0.2 uL; Hematocrit 41.9 % (41.0-53.0); Hemoglobin 14.3 g/dL (13.5-17.5); Lymphocytes # (auto) 1.4 uL; Lymphocytes % (auto) 37.9 % (10.0-50.0); Mean Corpuscular Hemoglobin 33.3 pg (28.0-32.0); Mean Corpuscular Hgb Conc. 34.1 g/dL (32.0-36.0); Mean Corpuscular Volume 97.6 fL (80.0-100.0); Monocytes # (auto) 0.6 uL; Monocytes % (auto) 16.5 % (0.0-12.0); Neutrophils # (auto) 1.4 uL; Neutrophils % (auto) 38.9 % (37.0-80.0); Nucleated Red Blood Cells % 0.6 %; Platelet Count (auto) 162 10^3/uL (140-450); Red Blood Cells 4.29 10^6/uL (4.5-5.90); Red Cell Distribution Width 13.2 % (11.8-14.3); White Blood Cell 3.6 10^3/uL (4.4-10.8)
[2018-12-12 12:03] LABS: Chloride 105 mmol/L (98-107); Potassium 4.2 mmol/L (3.5-5.1); Sodium 138 mmol/L (136-145)
[2018-12-12 12:19] LABS: Alanine Aminotransferase 24 U/L (16-61); Albumin 3.7 g/dL (3.4-5.0); Alkaline Phosphatase 65 U/L (45-117); Anion Gap 8 (5-15); Aspartate Aminotransferase 19 U/L (15-37); BUN/Creatinine Ratio 13.8; Bilirubin, Total 0.5 mg/dL (0.2-1.0); Blood Urea Nitrogen 16 mg/dL (7-18); Calcium 8.7 mg/dL (8.5-10.1); Carbon Dioxide 25 mmol/L (21-32); GFR African American > 60 mL/min; GFR Non-African American > 60 mL/min; Glucose 144 mg/dL (74-106); Magnesium 2.5 mg/dL (1.6-2.6); Total Protein 7.2 g/dL (6.4-8.2)
== END | disposition home or self-care (01) ==
LOC: CHF HDHVI 08:00
PROVIDERS: ATTEND Internal Medicine Cardiovascular Disease
DX: I12.9 Hypertensive chronic kidney disease with stage 1 through stage 4 chronic kidney disease, or unspecified chronic kidney disease (principal); E11.22 Type 2 diabetes mellitus with diabetic chronic kidney disease; I50.22 Chronic systolic (congestive) heart failure; N18.3 Chronic kidney disease, stage 3 (moderate); I25.10 Atherosclerotic heart disease of native coronary artery without angina pectoris; E83.40 Disorders of magnesium metabolism, unspecified; D64.9 Anemia, unspecified; I42.8 Other cardiomyopathies; I50.84 End stage heart failure; K21.9 Gastro-esophageal reflux disease without esophagitis; E11.40 Type 2 diabetes mellitus with diabetic neuropathy, unspecified; E11.319 Type 2 diabetes mellitus with unspecified diabetic retinopathy without macular edema; I48.0 Paroxysmal atrial fibrillation; I48.1 Persistent atrial fibrillation; E03.9 Hypothyroidism, unspecified; E78.5 Hyperlipidemia, unspecified; I25.2 Old myocardial infarction; M19.072 Primary osteoarthritis, left ankle and foot; G89.29 Other chronic pain; F31.9 Bipolar disorder, unspecified; E78.00 Pure hypercholesterolemia, unspecified; Z79.899 Other long term (current) drug therapy; Z95.810 Presence of automatic (implantable) cardiac defibrillator; Z95.5 Presence of coronary angioplasty implant and graft; Z86.73 Personal history of transient ischemic attack (TIA), and cerebral infarction without residual deficits
CPT/HCPCS: 36415; 80053; 83735; 83880; 85025; 96365; 96366; G0463; J1250; J1642

== ENCOUNTER → 2018-12-14 | Outpatient (CLI) | payer OTHER ==
[2018-12-14] VITALS (9 sets, daily range): BP systolic 94–129; BP diastolic 45–67
[~2018-12-14] MED LIST changes: -CYANOCOBALAMIN (B-12) 1000 MCG/1 ML VIAL ONE
--- NOTE | 2018-12-14 07:30 | NUR ---
PT. TO CHF CLINIC FOR DOBUTAMINE DRIP PER MD ORDER. SEE NSG ASSESS. WT. DOWN AND PT. FEELING SLIGHTLY BETTER SINCE LAST TX.
--- NOTE | 2018-12-14 07:47 | NUR ---
Clinic Provider Clinic Provider into see pt with new orders received and carried out. Dobutamine gtt started at {5}mcg/kg/hr per MD order.
--- NOTE | 2018-12-14 10:55 | NUR ---
CHF CLINIC Discharge Instructions See e-MAR for any mediations given with this visit. Patient education given on disease process. Patient verbalized understanding. Previous labs reviewed. Patient discharged in stable condition with after care instructions and follow up appointment ON MONDAY. NOTE DOBUTAMINE [id number] ADMIN BY GISELA ALVAREZ. HEPARIN ADMIN BY MACY ALVAREZ.
== END | disposition home or self-care (01) ==
LOC: CHF HDHVI 08:03
PROVIDERS: ATTEND Internal Medicine Cardiovascular Disease
DX: I13.0 Hypertensive heart and chronic kidney disease with heart failure and stage 1 through stage 4 chronic kidney disease, or unspecified chronic kidney disease (principal); E11.22 Type 2 diabetes mellitus with diabetic chronic kidney disease; I50.22 Chronic systolic (congestive) heart failure; N18.3 Chronic kidney disease, stage 3 (moderate); I25.10 Atherosclerotic heart disease of native coronary artery without angina pectoris; I42.8 Other cardiomyopathies; I48.0 Paroxysmal atrial fibrillation; I48.1 Persistent atrial fibrillation; I25.2 Old myocardial infarction; E11.40 Type 2 diabetes mellitus with diabetic neuropathy, unspecified; E11.319 Type 2 diabetes mellitus with unspecified diabetic retinopathy without macular edema; J44.9 Chronic obstructive pulmonary disease, unspecified; G89.29 Other chronic pain; M19.072 Primary osteoarthritis, left ankle and foot; E78.00 Pure hypercholesterolemia, unspecified; E78.5 Hyperlipidemia, unspecified; K21.9 Gastro-esophageal reflux disease without esophagitis; F31.9 Bipolar disorder, unspecified; E03.9 Hypothyroidism, unspecified; Z98.61 Coronary angioplasty status; Z87.891 Personal history of nicotine dependence; Z85.038 Personal history of other malignant neoplasm of large intestine; Z95.810 Presence of automatic (implantable) cardiac defibrillator; Z86.73 Personal history of transient ischemic attack (TIA), and cerebral infarction without residual deficits; Z79.899 Other long term (current) drug therapy; Z79.01 Long term (current) use of anticoagulants
CPT/HCPCS: 96365; 96366; G0463; J1250; J1642

== ENCOUNTER → 2018-12-17 | Outpatient (CLI) | payer OTHER ==
[2018-12-17] VITALS (7 sets, daily range): BP systolic 88–137; BP diastolic 42–71
--- NOTE | 2018-12-17 07:30 | NUR ---
PT. TO CHF CLINIC FOR DOBUTAMINE THERAPY PER DR. ENGLISH. ORDERSA RECEIVED AND CARRIED OUT. SEE NSG. ASSESS.
--- NOTE | 2018-12-17 07:47 | NUR ---
Clinic Provider Clinic Provider into see pt with new orders received and carried out. Dobutamine gtt started at {5}mcg/kg/hr per MD order.
--- NOTE | 2018-12-17 10:55 | NUR ---
CHF IV DOBUTAMINE COMPLETE Ayah Cath Removal Quinones needle D/C'd after Heparin flush per protocol. See e-MAR for medications given during this visit. Sterile occlusive dressing to site. Patient tolerated procedure well. Site benign post infusion. Discharge Instructions See e-MAR for any mediations given with this visit. Patient education given on disease process. Patient verbalized understanding. Previous labs reviewed. Patient discharged in stable condition with after care instructions and follow up appointment. F/U [facility] 12/19/18 FOR CONTINUED IV THERAPY DOBUTAMINE.
== END | disposition home or self-care (01) ==
LOC: CHF HDHVI 08:06
PROVIDERS: ATTEND Internal Medicine Cardiovascular Disease
DX: I13.0 Hypertensive heart and chronic kidney disease with heart failure and stage 1 through stage 4 chronic kidney disease, or unspecified chronic kidney disease (principal); I25.10 Atherosclerotic heart disease of native coronary artery without angina pectoris; I25.2 Old myocardial infarction; I25.9 Chronic ischemic heart disease, unspecified; I48.0 Paroxysmal atrial fibrillation; I50.84 End stage heart failure; E11.22 Type 2 diabetes mellitus with diabetic chronic kidney disease; E11.21 Type 2 diabetes mellitus with diabetic nephropathy; E11.40 Type 2 diabetes mellitus with diabetic neuropathy, unspecified; E11.319 Type 2 diabetes mellitus with unspecified diabetic retinopathy without macular edema; N18.3 Chronic kidney disease, stage 3 (moderate); D63.8 Anemia in other chronic diseases classified elsewhere; E03.9 Hypothyroidism, unspecified; E78.5 Hyperlipidemia, unspecified; E78.00 Pure hypercholesterolemia, unspecified; M19.079 Primary osteoarthritis, unspecified ankle and foot; G89.29 Other chronic pain; K21.9 Gastro-esophageal reflux disease without esophagitis; Z95.1 Presence of aortocoronary bypass graft; Z95.5 Presence of coronary angioplasty implant and graft; Z79.01 Long term (current) use of anticoagulants; Z79.899 Other long term (current) drug therapy; Z85.038 Personal history of other malignant neoplasm of large intestine; Z87.891 Personal history of nicotine dependence; Z95.810 Presence of automatic (implantable) cardiac defibrillator; Z86.73 Personal history of transient ischemic attack (TIA), and cerebral infarction without residual deficits
CPT/HCPCS: 96365; 96366; G0463; J1250; J1642

== ENCOUNTER → 2018-12-19 | Outpatient (CLI) | payer OTHER ==
[2018-12-19] VITALS (10 sets, daily range): BP systolic 89–117; BP diastolic 49–71
--- NOTE | 2018-12-19 10:50 | NUR ---
CHF Clinic Discharge Instructions See e-MAR for any mediations given with this visit. Patient education given on disease process. Patient verbalized understanding. Previous labs reviewed. Patient discharged in stable condition with after care instructions and follow up appointment on Monday. NOTE Dobutamine [id number] admin by Kandy ALVAREZ Heparin admin by iAsha ALVAREZ Cardiodynamics performed by Ernestina CABRAL and results reviewed with patient by Kandy ALVAREZ.
== END | disposition home or self-care (01) ==
LOC: CHF HDHVI 08:00
PROVIDERS: ATTEND Internal Medicine Cardiovascular Disease
DX: I13.2 Hypertensive heart and chronic kidney disease with heart failure and with stage 5 chronic kidney disease, or end stage renal disease (principal); I50.22 Chronic systolic (congestive) heart failure; I50.84 End stage heart failure; N18.6 End stage renal disease; J44.9 Chronic obstructive pulmonary disease, unspecified; E11.22 Type 2 diabetes mellitus with diabetic chronic kidney disease; E11.40 Type 2 diabetes mellitus with diabetic neuropathy, unspecified; E11.319 Type 2 diabetes mellitus with unspecified diabetic retinopathy without macular edema; I25.10 Atherosclerotic heart disease of native coronary artery without angina pectoris; E11.21 Type 2 diabetes mellitus with diabetic nephropathy; I25.2 Old myocardial infarction; G89.29 Other chronic pain; I48.1 Persistent atrial fibrillation; M19.072 Primary osteoarthritis, left ankle and foot; I42.8 Other cardiomyopathies; E78.00 Pure hypercholesterolemia, unspecified; K21.9 Gastro-esophageal reflux disease without esophagitis; I70.0 Atherosclerosis of aorta; E78.5 Hyperlipidemia, unspecified; E03.9 Hypothyroidism, unspecified; F31.9 Bipolar disorder, unspecified; I42.0 Dilated cardiomyopathy; I25.5 Ischemic cardiomyopathy; Z95.810 Presence of automatic (implantable) cardiac defibrillator; Z79.01 Long term (current) use of anticoagulants; Z79.899 Other long term (current) drug therapy; Z85.038 Personal history of other malignant neoplasm of large intestine; Z87.891 Personal history of nicotine dependence; Z95.1 Presence of aortocoronary bypass graft; Z86.73 Personal history of transient ischemic attack (TIA), and cerebral infarction without residual deficits; Z95.5 Presence of coronary angioplasty implant and graft
CPT/HCPCS: 93701; 96365; 96366; G0463; J1250; J1642

== ENCOUNTER → 2018-12-21 | Outpatient (CLI) | payer OTHER ==
[2018-12-21] VITALS (9 sets, daily range): BP systolic 93–120; BP diastolic 47–67
--- NOTE | 2018-12-21 07:40 | NUR ---
Ayah Cath Insertion 20 gauge Ayah Cath inserted using sterile technique in the [R) upper chest with occlusive dressing over saucedo needle. Patient tolerated procedure well. Ordered labs drawn and sent. See e-MAR for medications given during this visit. Clinic Provider Clinic Provider into see pt with new orders received and carried out. Dobutamine gtt started at {5}mcg/kg/hr per MD order.
--- NOTE | 2018-12-21 10:45 | NUR ---
CHF CLINIC Discharge Instructions See e-MAR for any mediations given with this visit. Patient education given on disease process. Patient verbalized understanding. Previous labs reviewed. Patient discharged in stable condition with after care instructions and follow up appointment. NOTE DOBUTAMINE INFUSION [id number] ADMIN BY ISAC ALVAREZ. HEPARIN ADMIN BY ISAC ALVAREZ.
== END | disposition home or self-care (01) ==
LOC: CHF HDHVI 07:48
PROVIDERS: ATTEND Internal Medicine Cardiovascular Disease
DX: I13.0 Hypertensive heart and chronic kidney disease with heart failure and stage 1 through stage 4 chronic kidney disease, or unspecified chronic kidney disease (principal); E11.22 Type 2 diabetes mellitus with diabetic chronic kidney disease; N18.3 Chronic kidney disease, stage 3 (moderate); I50.22 Chronic systolic (congestive) heart failure; I25.10 Atherosclerotic heart disease of native coronary artery without angina pectoris; I48.1 Persistent atrial fibrillation; I42.9 Cardiomyopathy, unspecified; I70.0 Atherosclerosis of aorta; J44.9 Chronic obstructive pulmonary disease, unspecified; K21.9 Gastro-esophageal reflux disease without esophagitis; E78.5 Hyperlipidemia, unspecified; E03.9 Hypothyroidism, unspecified; I25.2 Old myocardial infarction; M19.072 Primary osteoarthritis, left ankle and foot; E78.00 Pure hypercholesterolemia, unspecified; E11.21 Type 2 diabetes mellitus with diabetic nephropathy; E11.40 Type 2 diabetes mellitus with diabetic neuropathy, unspecified; E11.319 Type 2 diabetes mellitus with unspecified diabetic retinopathy without macular edema; G89.29 Other chronic pain; F31.9 Bipolar disorder, unspecified; Z86.73 Personal history of transient ischemic attack (TIA), and cerebral infarction without residual deficits; Z79.01 Long term (current) use of anticoagulants; Z95.1 Presence of aortocoronary bypass graft; Z87.891 Personal history of nicotine dependence; Z95.810 Presence of automatic (implantable) cardiac defibrillator
CPT/HCPCS: 96365; 96366; G0463; J1250; J1642

== ENCOUNTER → 2018-12-24 | Outpatient (CLI) | payer OTHER ==
[2018-12-24] VITALS (10 sets, daily range): BP systolic 98–139; BP diastolic 47–79
[~2018-12-24] MED LIST changes: +CYANOCOBALAMIN (B-12) 1000 MCG/1 ML VIAL IM ONE; +CYANOCOBALAMIN (B-12) 1000 MCG/1 ML VIAL ONE
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
--- NOTE | 2018-12-24 07:50 | NUR ---
Clinic Provider Clinic Provider into see pt with new orders received and carried out. Dobutamine gtt started at {5}mcg/kg/hr per MD order.
--- NOTE | 2018-12-24 08:35 | NUR ---
MEDS: PT. MEDICATED WITH VIT. B12 1000MCG IM LFT DELT.
--- NOTE | 2018-12-24 09:35 | NUR ---
dobutamine infusion ongoing. denies pain or discomfort. TOLERATING WELL. VS WNL. PT CHEERFUL AND VISITING WITH OTHER PATIENTS.
--- NOTE | 2018-12-24 10:50 | NUR ---
INFUSION COMPLETED AND TURNED TO OFF. Ayah Cath Removal Quinones needle D/C'd after Heparin flush per protocol. See e-MAR for medications given during this visit. Sterile occlusive dressing to site. Patient tolerated procedure well. Site benign post infusion. Discharge Instructions See e-MAR for any mediations given with this visit. Patient education given on disease process. Patient verbalized understanding. Previous labs reviewed. Patient discharged in stable condition with after care instructions and follow up appointment FOR 12/26/18 MEDICATION ADMINISTRATION DOBUTAMINE INFUSION AT 5 MCG/KG/MIN START AT 0750/STOP AT 1050 (27.54 ML/HR) VIT B12 1000 MCG IM TO LEFT DELTOID AT 0835 HEPARIN 500 UNITS IVP TO RIGHT CHEST PORT AT 1050
== END | disposition home or self-care (01) ==
LOC: CHF HDHVI 08:09
PROVIDERS: ATTEND Internal Medicine Cardiovascular Disease
DX: I13.0 Hypertensive heart and chronic kidney disease with heart failure and stage 1 through stage 4 chronic kidney disease, or unspecified chronic kidney disease (principal); E11.22 Type 2 diabetes mellitus with diabetic chronic kidney disease; N18.3 Chronic kidney disease, stage 3 (moderate); I50.22 Chronic systolic (congestive) heart failure; I25.10 Atherosclerotic heart disease of native coronary artery without angina pectoris; I42.9 Cardiomyopathy, unspecified; I70.0 Atherosclerosis of aorta; I48.1 Persistent atrial fibrillation; J44.9 Chronic obstructive pulmonary disease, unspecified; K21.9 Gastro-esophageal reflux disease without esophagitis; E78.5 Hyperlipidemia, unspecified; E03.9 Hypothyroidism, unspecified; I25.2 Old myocardial infarction; M19.072 Primary osteoarthritis, left ankle and foot; E78.00 Pure hypercholesterolemia, unspecified; E11.21 Type 2 diabetes mellitus with diabetic nephropathy; E11.40 Type 2 diabetes mellitus with diabetic neuropathy, unspecified; E11.319 Type 2 diabetes mellitus with unspecified diabetic retinopathy without macular edema; G89.29 Other chronic pain; F31.9 Bipolar disorder, unspecified; Z86.73 Personal history of transient ischemic attack (TIA), and cerebral infarction without residual deficits; Z79.01 Long term (current) use of anticoagulants; Z95.1 Presence of aortocoronary bypass graft; Z87.891 Personal history of nicotine dependence; Z95.810 Presence of automatic (implantable) cardiac defibrillator
CPT/HCPCS: 96365; 96366; 96372; G0463; J1250; J1642; J3420

== ENCOUNTER → 2018-12-26 | Outpatient (CLI) | payer OTHER ==
[~2018-12-26] VITALS: Ht 30.5 cm; Wt 91.6 kg
[2018-12-26] VITALS (9 sets, daily range): BP systolic 93–110; BP diastolic 49–62
[~2018-12-26] MED LIST changes: -CYANOCOBALAMIN (B-12) 1000 MCG/1 ML VIAL IM ONE; -CYANOCOBALAMIN (B-12) 1000 MCG/1 ML VIAL ONE
--- NOTE | 2018-12-26 07:30 | NUR ---
Ayah Cath Insertion 20 gauge Ayah Cath inserted using sterile technique in the R upper chest with occlusive dressing over saucedo needle. Patient tolerated procedure well. Ordered labs drawn and sent. See e-MAR for medications given during this visit.
--- NOTE | 2018-12-26 10:55 | NUR ---
CHF CLINIC Discharge Instructions See e-MAR for any mediations given with this visit. Patient education given on disease process. Patient verbalized understanding. Previous labs reviewed. Patient discharged in stable condition with after care instructions and follow up appointment ON MONDAY. NOTE DOBUTAMINE INFUSION [id number] ADMIN BY ISAC ALVAREZ. HEPARIN ADMIN BY ISAC ALVAREZ. LABS DRAWN BY ISAC ALVAREZ FROM [facility].
[2018-12-26 12:12] LABS: Basophils # (auto) 0 uL; Basophils % (auto) 0.6 % (0.0-2.0); Eosinophils # (auto) 0.3 uL; Eosinophils % (auto) 7.1 % (0.0-7.0); Hematocrit 42.1 % (41.0-53.0); Hemoglobin 14.2 g/dL (13.5-17.5); Lymphocytes # (auto) 1.3 uL; Lymphocytes % (auto) 30.9 % (10.0-50.0); Mean Corpuscular Hemoglobin 33.2 pg (28.0-32.0); Mean Corpuscular Hgb Conc. 33.8 g/dL (32.0-36.0); Mean Corpuscular Volume 97.9 fL (80.0-100.0); Monocytes # (auto) 0.7 uL; Monocytes % (auto) 17.2 % (0.0-12.0); Neutrophils # (auto) 1.8 uL; Neutrophils % (auto) 44.2 % (37.0-80.0); Nucleated Red Blood Cells % 0.4 %; Platelet Count (auto) 137 10^3/uL (140-450); Red Cell Distribution Width 12.7 % (11.8-14.3); White Blood Cell 4.1 10^3/uL (4.4-10.8)
[2018-12-26 12:27] LABS: BUN/Creatinine Ratio 15.3; Calcium 8.6 mg/dL (8.5-10.1)
[2018-12-26 19:01] LABS: Potassium 4.1 mmol/L (3.5-5.1)
== END | disposition home or self-care (01) ==
LOC: CHF HDHVI 08:01
PROVIDERS: ATTEND Internal Medicine Cardiovascular Disease
DX: I13.0 Hypertensive heart and chronic kidney disease with heart failure and stage 1 through stage 4 chronic kidney disease, or unspecified chronic kidney disease (principal); E11.22 Type 2 diabetes mellitus with diabetic chronic kidney disease; I50.22 Chronic systolic (congestive) heart failure; N18.3 Chronic kidney disease, stage 3 (moderate); E83.40 Disorders of magnesium metabolism, unspecified; D64.9 Anemia, unspecified; I48.1 Persistent atrial fibrillation; I25.10 Atherosclerotic heart disease of native coronary artery without angina pectoris; I42.9 Cardiomyopathy, unspecified; I25.2 Old myocardial infarction; J44.9 Chronic obstructive pulmonary disease, unspecified; E11.319 Type 2 diabetes mellitus with unspecified diabetic retinopathy without macular edema; E11.40 Type 2 diabetes mellitus with diabetic neuropathy, unspecified; E03.9 Hypothyroidism, unspecified; E78.5 Hyperlipidemia, unspecified; E78.00 Pure hypercholesterolemia, unspecified; M19.072 Primary osteoarthritis, left ankle and foot; G89.29 Other chronic pain; F31.9 Bipolar disorder, unspecified; Z86.73 Personal history of transient ischemic attack (TIA), and cerebral infarction without residual deficits; Z95.810 Presence of automatic (implantable) cardiac defibrillator; Z79.899 Other long term (current) drug therapy; Z87.891 Personal history of nicotine dependence; Z98.61 Coronary angioplasty status; Z79.01 Long term (current) use of anticoagulants
CPT/HCPCS: 36415; 80048; 83880; 85025; 96365; 96366; G0463; J1250; J1642

== ENCOUNTER → 2018-12-28 | Outpatient (CLI) | payer OTHER ==
[~2018-12-28] VITALS: Ht 30.5 cm; Wt 92.1 kg
[2018-12-28] VITALS (8 sets, daily range): BP systolic 103–120; BP diastolic 47–81
--- NOTE | 2018-12-28 07:30 | NUR ---
PT. TO CHF CLINIC FOR DOBUTAMINE THERAPY. WT UP SLIGHTLY SINCE LAST VISIT WITH EXERCISE DOWN SINCE LAST VISIT ALSO. ORDERS RECEIVED AND CARRIED OUT. SEE NSG ASSESS.
--- NOTE | 2018-12-28 07:40 | NUR ---
Clinic Provider Clinic Provider into see pt with new orders received and carried out. Dobutamine gtt started at {5}mcg/kg/hr per MD order.
--- NOTE | 2018-12-28 10:40 | NUR ---
INFUSION COMPLETED. TOLERATED WELL. VS WNL. Ayah Cath Removal Quinones needle D/C'd after Heparin flush per protocol. See e-MAR for medications given during this visit. Sterile occlusive dressing to site. Patient tolerated procedure well. Site benign post infusion.
--- NOTE | 2018-12-28 10:45 | NUR ---
MEDICATION ADMINISTRATION DOBUTAMINE GTT AT 5 MCG/KG/MIN START AT 0742/STOP AT 1048 (28 ML/HR) HEPARIN 500 UNITS IVP TO RIGHT CHEST PORT
== END | disposition home or self-care (01) ==
LOC: CHF HDHVI 07:47
PROVIDERS: ATTEND Internal Medicine Cardiovascular Disease
DX: I13.0 Hypertensive heart and chronic kidney disease with heart failure and stage 1 through stage 4 chronic kidney disease, or unspecified chronic kidney disease (principal); E11.22 Type 2 diabetes mellitus with diabetic chronic kidney disease; N18.3 Chronic kidney disease, stage 3 (moderate); I50.22 Chronic systolic (congestive) heart failure; I25.10 Atherosclerotic heart disease of native coronary artery without angina pectoris; I42.8 Other cardiomyopathies; I70.0 Atherosclerosis of aorta; I48.1 Persistent atrial fibrillation; I25.2 Old myocardial infarction; J44.9 Chronic obstructive pulmonary disease, unspecified; K21.9 Gastro-esophageal reflux disease without esophagitis; E78.5 Hyperlipidemia, unspecified; E03.9 Hypothyroidism, unspecified; M19.072 Primary osteoarthritis, left ankle and foot; E78.00 Pure hypercholesterolemia, unspecified; E11.21 Type 2 diabetes mellitus with diabetic nephropathy; E11.40 Type 2 diabetes mellitus with diabetic neuropathy, unspecified; E11.319 Type 2 diabetes mellitus with unspecified diabetic retinopathy without macular edema; F31.9 Bipolar disorder, unspecified; G89.29 Other chronic pain; Z86.73 Personal history of transient ischemic attack (TIA), and cerebral infarction without residual deficits; Z79.01 Long term (current) use of anticoagulants; Z95.1 Presence of aortocoronary bypass graft; Z87.891 Personal history of nicotine dependence; Z95.810 Presence of automatic (implantable) cardiac defibrillator
CPT/HCPCS: 96365; 96366; G0463; J1250; J1642

== ENCOUNTER → 2018-12-31 | Outpatient (CLI) | payer OTHER ==
[~2018-12-31] VITALS: Ht 30.5 cm; Wt 91.6 kg
[2018-12-31] VITALS (9 sets, daily range): BP systolic 105–134; BP diastolic 60–77
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
--- NOTE | 2018-12-31 07:48 | NUR ---
Clinic Provider Clinic Provider into see pt with new orders received and carried out. Dobutamine gtt started at {5}mcg/kg/hr per MD order.
--- NOTE | 2018-12-31 10:55 | NUR ---
INFUSION COMPLETED AND TOLERATED WELL. VS WNL. Ayah Cath Removal Quinones needle D/C'd after Heparin flush per protocol. See e-MAR for medications given during this visit. Sterile occlusive dressing to site. Patient tolerated procedure well. Site benign post infusion. MEDICATION ADMINISTRATION DOBUTAMINE GTT AT 5 MCG/KG/MIN START AT 0748/STOP AT 1050 (27.63 ML/HR) HEPARIN 500 UNITS IVP TO RIGHT CHEST PORT AT 1050
== END | disposition home or self-care (01) ==
LOC: CHF HDHVI 07:59
PROVIDERS: ATTEND Internal Medicine Cardiovascular Disease
DX: E11.22 Type 2 diabetes mellitus with diabetic chronic kidney disease (principal); I13.0 Hypertensive heart and chronic kidney disease with heart failure and stage 1 through stage 4 chronic kidney disease, or unspecified chronic kidney disease; N18.6 End stage renal disease; I50.22 Chronic systolic (congestive) heart failure; I25.10 Atherosclerotic heart disease of native coronary artery without angina pectoris; I42.8 Other cardiomyopathies; F31.9 Bipolar disorder, unspecified; J44.9 Chronic obstructive pulmonary disease, unspecified; K21.9 Gastro-esophageal reflux disease without esophagitis; E78.5 Hyperlipidemia, unspecified; E03.9 Hypothyroidism, unspecified; I25.2 Old myocardial infarction; G89.29 Other chronic pain; I48.1 Persistent atrial fibrillation; E78.00 Pure hypercholesterolemia, unspecified; E11.40 Type 2 diabetes mellitus with diabetic neuropathy, unspecified; M19.072 Primary osteoarthritis, left ankle and foot; E87.70 Fluid overload, unspecified; D63.1 Anemia in chronic kidney disease; I48.0 Paroxysmal atrial fibrillation; Z79.899 Other long term (current) drug therapy; Z79.01 Long term (current) use of anticoagulants; Z85.038 Personal history of other malignant neoplasm of large intestine; Z87.891 Personal history of nicotine dependence; Z95.810 Presence of automatic (implantable) cardiac defibrillator; Z95.1 Presence of aortocoronary bypass graft; Z86.73 Personal history of transient ischemic attack (TIA), and cerebral infarction without residual deficits
CPT/HCPCS: 96365; 96366; G0463; J1250; J1642

== ENCOUNTER → 2019-01-02 | Outpatient (CLI) | payer OTHER ==
[2019-01-02] VITALS (9 sets, daily range): BP systolic 99–125; BP diastolic 43–79
[~2019-01-02] MED LIST changes: +DOBUTamine 1000MCG/ML 250 ML IV SCH
--- NOTE | 2019-01-02 07:48 | NUR ---
Ayah Cath Insertion 20 gauge Ayah Cath inserted using sterile technique in the upper chest with occlusive dressing over saucedo needle. Patient tolerated procedure well. Ordered labs drawn and sent. See e-MAR for medications given during this visit. Clinic Provider Clinic Provider into see pt with new orders received and carried out. Dobutamine gtt started at {5}mcg/kg/hr per MD order.
--- NOTE | 2019-01-02 11:00 | NUR ---
SEE FREQUENT VITALS. TOLERATED INFUSION WELL. VISITING OR ON IPAD DURING ENTIRE INFUSION WITHOUT COMPLAINT OR DISTRESS. Ayah Cath Removal Quinones needle D/C'd after Heparin flush per protocol. See e-MAR for medications given during this visit. Sterile occlusive dressing to site. Patient tolerated procedure well. Site benign post infusion. Discharge Instructions See e-MAR for any mediations given with this visit. Patient education given on disease process. Patient verbalized understanding. Previous labs reviewed. Patient discharged in stable condition with after care instructions and follow up appointment FOR Monday01/04/19 MEDICATION ADMINISTRATION DOBUTAMINE GTT AT 5 MCG/KG/MIN START AT 0748/STOP AT 1050 (27.69 ML/HR) HEPARIN 500 UNITS IVP TO RIGHT CHEST PORT AT 1055
== END | disposition home or self-care (01) ==
LOC: CHF HDHVI 07:52
PROVIDERS: ATTEND Internal Medicine Cardiovascular Disease
DX: I13.2 Hypertensive heart and chronic kidney disease with heart failure and with stage 5 chronic kidney disease, or end stage renal disease (principal); I50.9 Heart failure, unspecified; I25.10 Atherosclerotic heart disease of native coronary artery without angina pectoris; N18.6 End stage renal disease; F31.9 Bipolar disorder, unspecified; E11.22 Type 2 diabetes mellitus with diabetic chronic kidney disease; J44.9 Chronic obstructive pulmonary disease, unspecified; I50.84 End stage heart failure; E78.5 Hyperlipidemia, unspecified; E03.9 Hypothyroidism, unspecified; I25.2 Old myocardial infarction; G89.29 Other chronic pain; I48.1 Persistent atrial fibrillation; E78.00 Pure hypercholesterolemia, unspecified; E11.21 Type 2 diabetes mellitus with diabetic nephropathy; E11.319 Type 2 diabetes mellitus with unspecified diabetic retinopathy without macular edema; K21.9 Gastro-esophageal reflux disease without esophagitis; I50.22 Chronic systolic (congestive) heart failure; M19.90 Unspecified osteoarthritis, unspecified site; I25.9 Chronic ischemic heart disease, unspecified; E11.41 Type 2 diabetes mellitus with diabetic mononeuropathy; M19.079 Primary osteoarthritis, unspecified ankle and foot; Z79.01 Long term (current) use of anticoagulants; Z87.891 Personal history of nicotine dependence; Z95.810 Presence of automatic (implantable) cardiac defibrillator; Z86.73 Personal history of transient ischemic attack (TIA), and cerebral infarction without residual deficits; Z95.5 Presence of coronary angioplasty implant and graft; Z85.038 Personal history of other malignant neoplasm of large intestine
CPT/HCPCS: 96365; 96366; G0463; J1250; J1642

== ENCOUNTER → 2019-01-04 | Outpatient (CLI) | payer OTHER ==
[2019-01-04] VITALS (9 sets, daily range): BP systolic 102–133; BP diastolic 56–81
[~2019-01-04] MED LIST changes: -DOBUTamine 1000MCG/ML 250 ML IV SCH
--- NOTE | 2019-01-04 10:55 | NUR ---
CHF CLINIC Discharge Instructions See e-MAR for any mediations given with this visit. Patient education given on disease process. Patient verbalized understanding. Previous labs reviewed. Patient discharged in stable condition with after care instructions and follow up appointment. NOTE DOBUTAMINE INFUSION [id number] ADMIN BY ISAC ALVAREZ HEPARIN ADMIN BY MACY ALVAREZ
== END | disposition home or self-care (01) ==
LOC: CHF HDHVI 07:48
PROVIDERS: ATTEND Internal Medicine Cardiovascular Disease
DX: I13.2 Hypertensive heart and chronic kidney disease with heart failure and with stage 5 chronic kidney disease, or end stage renal disease (principal); E11.22 Type 2 diabetes mellitus with diabetic chronic kidney disease; N18.6 End stage renal disease; I50.22 Chronic systolic (congestive) heart failure; I48.1 Persistent atrial fibrillation; J44.9 Chronic obstructive pulmonary disease, unspecified; K21.9 Gastro-esophageal reflux disease without esophagitis; E03.9 Hypothyroidism, unspecified; E78.5 Hyperlipidemia, unspecified; I25.2 Old myocardial infarction; M19.072 Primary osteoarthritis, left ankle and foot; E78.00 Pure hypercholesterolemia, unspecified; E11.40 Type 2 diabetes mellitus with diabetic neuropathy, unspecified; E11.319 Type 2 diabetes mellitus with unspecified diabetic retinopathy without macular edema; I25.10 Atherosclerotic heart disease of native coronary artery without angina pectoris; F31.9 Bipolar disorder, unspecified; M10.9 Gout, unspecified; G89.29 Other chronic pain; M54.9 Dorsalgia, unspecified; Z85.038 Personal history of other malignant neoplasm of large intestine; Z95.810 Presence of automatic (implantable) cardiac defibrillator; Z86.73 Personal history of transient ischemic attack (TIA), and cerebral infarction without residual deficits; Z79.01 Long term (current) use of anticoagulants; Z87.891 Personal history of nicotine dependence; Z90.89 Acquired absence of other organs; Z79.899 Other long term (current) drug therapy
CPT/HCPCS: 96365; 96366; G0463; J1250; J1642

== ENCOUNTER → 2019-01-07 | Outpatient (CLI) | payer OTHER ==
[~2019-01-07] VITALS: Ht 30.5 cm; Wt 90.4 kg
[2019-01-07] VITALS (10 sets, daily range): BP systolic 103–125; BP diastolic 49–67
--- NOTE | 2019-01-07 07:40 | NUR ---
Ayah Cath Insertion 20 gauge Ayah Cath inserted by Roscoe ALVAREZ using sterile technique in the R upper chest with occlusive dressing over saucedo needle. Patient tolerated procedure well. Ordered labs drawn and sent. See e-MAR for medications given during this visit.
--- NOTE | 2019-01-07 10:10 | NUR ---
PATIENT TO MD SIDE FOR DR APPOINTMENT
--- NOTE | 2019-01-07 11:15 | NUR ---
PATIENT BACK FROM [facility], DOBUTAMINE INFUSION RESTARTED.
--- NOTE | 2019-01-07 11:45 | NUR ---
Ayah Cath Removal Quinones needle D/C'd by Kandy ALVAREZ after Heparin flush per protocol. See e-MAR for medications given during this visit. Sterile occlusive dressing to site. Patient tolerated procedure well. Site benign post infusion.
--- NOTE | 2019-01-07 11:46 | NUR ---
CHF CLINIC Discharge Instructions See e-MAR for any mediations given with this visit. Patient education given on disease process. Patient verbalized understanding. Previous labs reviewed. Patient discharged in stable condition with after care instructions and follow up appointment ON MONDAY. NOTE DOBUTAMINE INFUSION [id number], [id number] ADMIN BY GISELA ALVAREZ HEPARIN ADMIN BY ISAC ALVAREZ
== END | disposition home or self-care (01) ==
LOC: CHF HDHVI 07:57
PROVIDERS: ATTEND Internal Medicine Cardiovascular Disease
DX: I13.11 Hypertensive heart and chronic kidney disease without heart failure, with stage 5 chronic kidney disease, or end stage renal disease (principal); E11.22 Type 2 diabetes mellitus with diabetic chronic kidney disease; I50.22 Chronic systolic (congestive) heart failure; N18.6 End stage renal disease; I48.0 Paroxysmal atrial fibrillation; D64.9 Anemia, unspecified; I25.10 Atherosclerotic heart disease of native coronary artery without angina pectoris; I42.9 Cardiomyopathy, unspecified; I25.2 Old myocardial infarction; I50.84 End stage heart failure; K21.9 Gastro-esophageal reflux disease without esophagitis; E78.5 Hyperlipidemia, unspecified; E03.9 Hypothyroidism, unspecified; J44.9 Chronic obstructive pulmonary disease, unspecified; M19.072 Primary osteoarthritis, left ankle and foot; G89.29 Other chronic pain; F31.9 Bipolar disorder, unspecified; E78.00 Pure hypercholesterolemia, unspecified; E11.319 Type 2 diabetes mellitus with unspecified diabetic retinopathy without macular edema; Z79.899 Other long term (current) drug therapy; Z95.810 Presence of automatic (implantable) cardiac defibrillator; Z95.1 Presence of aortocoronary bypass graft; Z79.01 Long term (current) use of anticoagulants; Z87.891 Personal history of nicotine dependence; Z85.038 Personal history of other malignant neoplasm of large intestine; Z98.61 Coronary angioplasty status
CPT/HCPCS: 96365; 96366; G0463; J1250; J1642

== ENCOUNTER → 2019-01-09 | Outpatient (CLI) | payer OTHER ==
[2019-01-09] VITALS (9 sets, daily range): BP systolic 95–144; BP diastolic 60–88
[~2019-01-09] VITALS: Ht 30.5 cm; Wt 90.3 kg
--- NOTE | 2019-01-09 07:45 | NUR ---
Ayah Cath Insertion 20 gauge Ayah Cath inserted by Kandy ALVAREZ using sterile technique in the [facility] upper chest with occlusive dressing over saucedo needle. Patient tolerated procedure well. Ordered labs drawn and sent. See e-MAR for medications given during this visit.
--- NOTE | 2019-01-09 11:05 | NUR ---
CHF CLINIC Discharge Instructions See e-MAR for any mediations given with this visit. Patient education given on disease process. Patient verbalized understanding. Previous labs reviewed. Patient discharged in stable condition with after care instructions and follow up appointment on Monday. Note Dobutamine [id number] admin by Kandy ALVAREZ Heparin admin by Kandy ALVAREZ
[2019-01-09 11:23] LABS: BUN/Creatinine Ratio 17.2; Calcium 8.5 mg/dL (8.5-10.1); Potassium 4.1 mmol/L (3.5-5.1)
[2019-01-09 11:42] LABS: Basophils # (auto) 0 uL; Basophils % (auto) 0.6 % (0.0-2.0); Eosinophils # (auto) 0.3 uL; Eosinophils % (auto) 9.9 % (0.0-7.0); Hematocrit 42.6 % (41.0-53.0); Hemoglobin 14.4 g/dL (13.5-17.5); Lymphocytes # (auto) 1.4 uL; Mean Corpuscular Hemoglobin 33.1 pg (28.0-32.0); Mean Corpuscular Hgb Conc. 33.9 g/dL (32.0-36.0); Mean Corpuscular Volume 97.8 fL (80.0-100.0); Monocytes # (auto) 0.6 uL; Monocytes % (auto) 15.8 % (0.0-12.0); Neutrophils # (auto) 1.2 uL; Neutrophils % (auto) 34.7 % (37.0-80.0); Platelet Count (auto) 154 10^3/uL (140-450); Red Blood Cells 4.36 10^6/uL (4.5-5.90); Red Cell Distribution Width 13.2 % (11.8-14.3); White Blood Cell 3.5 10^3/uL (4.4-10.8)
== END | disposition home or self-care (01) ==
LOC: CHF HDHVI 08:00
PROVIDERS: ATTEND Internal Medicine Cardiovascular Disease
DX: I13.11 Hypertensive heart and chronic kidney disease without heart failure, with stage 5 chronic kidney disease, or end stage renal disease (principal); E11.22 Type 2 diabetes mellitus with diabetic chronic kidney disease; I50.22 Chronic systolic (congestive) heart failure; N18.6 End stage renal disease; D64.9 Anemia, unspecified; I48.1 Persistent atrial fibrillation; I25.10 Atherosclerotic heart disease of native coronary artery without angina pectoris; I42.9 Cardiomyopathy, unspecified; I50.84 End stage heart failure; I25.2 Old myocardial infarction; E11.319 Type 2 diabetes mellitus with unspecified diabetic retinopathy without macular edema; E78.00 Pure hypercholesterolemia, unspecified; M19.072 Primary osteoarthritis, left ankle and foot; F31.9 Bipolar disorder, unspecified; E78.5 Hyperlipidemia, unspecified; G89.29 Other chronic pain; J44.9 Chronic obstructive pulmonary disease, unspecified; Z86.73 Personal history of transient ischemic attack (TIA), and cerebral infarction without residual deficits; Z79.01 Long term (current) use of anticoagulants; Z87.891 Personal history of nicotine dependence; Z98.61 Coronary angioplasty status; Z95.810 Presence of automatic (implantable) cardiac defibrillator; Z79.899 Other long term (current) drug therapy
CPT/HCPCS: 36415; 80048; 83880; 85025; 96365; 96366; G0463; J1250; J1642

== ENCOUNTER → 2019-01-11 | Outpatient (CLI) | payer OTHER ==
[~2019-01-11] VITALS: Ht 30.5 cm; Wt 90.3 kg
[2019-01-11] VITALS (9 sets, daily range): BP systolic 102–117; BP diastolic 54–72
--- NOTE | 2019-01-11 07:30 | NUR ---
PT. TO CHF CLINIC FOR DOBUTAMINE INFUSION PER DR. ENGLISH. WT. NAKIA. MD ORDERS RECEIVED AND CARRIED OUT. SEE NSG ASSESS.
--- NOTE | 2019-01-11 07:45 | NUR ---
Clinic Provider Clinic Provider into see pt with new orders received and carried out. Dobutamine gtt started at {5}mcg/kg/hr per MD order.
--- NOTE | 2019-01-11 10:52 | NUR ---
CHF CLINIC Discharge Instructions See e-MAR for any mediations given with this visit. Patient education given on disease process. Patient verbalized understanding. Previous labs reviewed. Patient discharged in stable condition with after care instructions and follow up appointment ON MONDAY. NOTE DOBUTAMINE [id number] ADMIN BY GISELA ALVAREZ HEPARIN ADMIN BY MACY ALVAREZ
== END | disposition home or self-care (01) ==
LOC: CHF HDHVI 07:37
PROVIDERS: ATTEND Internal Medicine Cardiovascular Disease
DX: I25.10 Atherosclerotic heart disease of native coronary artery without angina pectoris (principal); I42.8 Other cardiomyopathies; I13.2 Hypertensive heart and chronic kidney disease with heart failure and with stage 5 chronic kidney disease, or end stage renal disease; E11.22 Type 2 diabetes mellitus with diabetic chronic kidney disease; N18.6 End stage renal disease; I50.22 Chronic systolic (congestive) heart failure; I48.1 Persistent atrial fibrillation; I25.2 Old myocardial infarction; I70.0 Atherosclerosis of aorta; J44.9 Chronic obstructive pulmonary disease, unspecified; F31.9 Bipolar disorder, unspecified; E11.319 Type 2 diabetes mellitus with unspecified diabetic retinopathy without macular edema; E11.40 Type 2 diabetes mellitus with diabetic neuropathy, unspecified; E78.5 Hyperlipidemia, unspecified; G89.29 Other chronic pain; E78.00 Pure hypercholesterolemia, unspecified; K21.9 Gastro-esophageal reflux disease without esophagitis; E03.9 Hypothyroidism, unspecified; M19.072 Primary osteoarthritis, left ankle and foot; Z85.038 Personal history of other malignant neoplasm of large intestine; Z95.1 Presence of aortocoronary bypass graft; Z79.01 Long term (current) use of anticoagulants; Z79.899 Other long term (current) drug therapy; Z95.810 Presence of automatic (implantable) cardiac defibrillator; Z86.73 Personal history of transient ischemic attack (TIA), and cerebral infarction without residual deficits; Z87.891 Personal history of nicotine dependence
CPT/HCPCS: 96365; 96366; G0463; J1250; J1642

== ENCOUNTER → 2019-01-14 | Outpatient (CLI) | payer OTHER ==
[~2019-01-14] VITALS: Ht 33 cm; Wt 90.7 kg
[2019-01-14] VITALS (9 sets, daily range): BP systolic 107–126; BP diastolic 56–80
[~2019-01-14] MED LIST changes: +CYANOCOBALAMIN (B-12) 1000 MCG/1 ML VIAL IM ONE; +CYANOCOBALAMIN (B-12) 1000 MCG/1 ML VIAL ONE
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
--- NOTE | 2019-01-14 07:44 | NUR ---
Clinic Provider Clinic Provider into see pt with new orders received and carried out. Dobutamine gtt started at {5}mcg/kg/hr per MD order.
--- NOTE | 2019-01-14 08:30 | NUR ---
CHF INFUSING ON GOING SITE BENIGN PT TOLERATING THERAPY WELL V/S DONE
--- NOTE | 2019-01-14 10:00 | NUR ---
CHF PT INFUSION CONTINUING, IV SITE BENIGN 0 DISTRESS V/S DONE
--- NOTE | 2019-01-14 10:55 | NUR ---
Discharge Instructions [facility] NEEDED D/C PT TOLERATED WELL SITE BENIGN POST INFUSION. See e-MAR for any mediations given with this visit. Patient education given on disease process. Patient verbalized understanding. Previous labs reviewed. Patient discharged in stable condition with after care instructions and follow up appointment 01/16/2018 FOLLOW UP AT CHF CLINIC MEDICATIONS DOBUTAMINE 5MCG/KG/MIN (RATE 27.33 ML/HR) START TIME 0744 END TIME 1044 HEPARIN 500 UNITS INP X 1 1053
== END | disposition home or self-care (01) ==
LOC: CHF HDHVI 08:09
PROVIDERS: ATTEND Internal Medicine Cardiovascular Disease
DX: I13.2 Hypertensive heart and chronic kidney disease with heart failure and with stage 5 chronic kidney disease, or end stage renal disease (principal); E11.22 Type 2 diabetes mellitus with diabetic chronic kidney disease; N18.6 End stage renal disease; I50.22 Chronic systolic (congestive) heart failure; I48.1 Persistent atrial fibrillation; I25.2 Old myocardial infarction; I25.10 Atherosclerotic heart disease of native coronary artery without angina pectoris; I70.0 Atherosclerosis of aorta; I42.9 Cardiomyopathy, unspecified; J44.9 Chronic obstructive pulmonary disease, unspecified; F31.9 Bipolar disorder, unspecified; E11.319 Type 2 diabetes mellitus with unspecified diabetic retinopathy without macular edema; E11.40 Type 2 diabetes mellitus with diabetic neuropathy, unspecified; E78.5 Hyperlipidemia, unspecified; G89.29 Other chronic pain; E78.00 Pure hypercholesterolemia, unspecified; K21.9 Gastro-esophageal reflux disease without esophagitis; E03.9 Hypothyroidism, unspecified; M19.072 Primary osteoarthritis, left ankle and foot; Z85.038 Personal history of other malignant neoplasm of large intestine; Z95.1 Presence of aortocoronary bypass graft; Z79.01 Long term (current) use of anticoagulants; Z79.899 Other long term (current) drug therapy; Z95.810 Presence of automatic (implantable) cardiac defibrillator; Z86.73 Personal history of transient ischemic attack (TIA), and cerebral infarction without residual deficits; Z87.891 Personal history of nicotine dependence
CPT/HCPCS: 96365; 96366; 96372; G0463; J1250; J1642; J3420

== ENCOUNTER → 2019-01-16 | Outpatient (CLI) | payer OTHER ==
[2019-01-16] VITALS (9 sets, daily range): BP systolic 102–126; BP diastolic 54–71
[~2019-01-16] MED LIST changes: -CYANOCOBALAMIN (B-12) 1000 MCG/1 ML VIAL IM ONE; -CYANOCOBALAMIN (B-12) 1000 MCG/1 ML VIAL ONE
--- NOTE | 2019-01-16 11:00 | NUR ---
CHF IN TO CLINIC AT 0730 FOR SCHEDULED INFUSION. RIGHT CHEST PORT ACCESSED PER PROTOCOL. FLUSHED WITH SALINE DRESSING APPLIED AND Clinic Provider into see pt with new orders received and carried out. Dobutamine gtt started at {5}mcg/kg/hr per MD order. VS WNL. WITHOUT DISTRESS OR DISCOMFORT FOR DURATION OF INFUSION. VISITING OR USING IPAD DURING INFUSION. RIGHT CHEST PORT DCD PER PROTOCOL AT END OF INFUSION. FLUSHED AND HEPARINIZED BEFORE REMOVAL PER PROTOCOL. Discharge Instructions See e-MAR for any mediations given with this visit. Patient education given on disease process. Patient verbalized understanding. Previous labs reviewed. Patient discharged in stable condition with after care instructions and follow up appointment FOR 01/18/19 MEDICATION ADMINISTRATION DOBUTAMINE GTT AT 5 MCG/KG/MIN (27.45 ML/HR) START AT 0754/STOP AT 1055 HEPARIN 500 UNITS IVP TO RIGHT CHEST PORT AT 1100
== END | disposition home or self-care (01) ==
LOC: CHF HDHVI 07:46
PROVIDERS: ATTEND Internal Medicine Cardiovascular Disease
DX: I13.2 Hypertensive heart and chronic kidney disease with heart failure and with stage 5 chronic kidney disease, or end stage renal disease (principal); E11.22 Type 2 diabetes mellitus with diabetic chronic kidney disease; N18.6 End stage renal disease; I50.22 Chronic systolic (congestive) heart failure; I48.1 Persistent atrial fibrillation; I25.10 Atherosclerotic heart disease of native coronary artery without angina pectoris; I70.0 Atherosclerosis of aorta; I25.2 Old myocardial infarction; I42.9 Cardiomyopathy, unspecified; J44.9 Chronic obstructive pulmonary disease, unspecified; K21.9 Gastro-esophageal reflux disease without esophagitis; E78.5 Hyperlipidemia, unspecified; E03.9 Hypothyroidism, unspecified; E78.00 Pure hypercholesterolemia, unspecified; E11.40 Type 2 diabetes mellitus with diabetic neuropathy, unspecified; E11.319 Type 2 diabetes mellitus with unspecified diabetic retinopathy without macular edema; M19.072 Primary osteoarthritis, left ankle and foot; F31.9 Bipolar disorder, unspecified; G89.29 Other chronic pain; Z79.01 Long term (current) use of anticoagulants; Z79.899 Other long term (current) drug therapy; Z85.038 Personal history of other malignant neoplasm of large intestine; Z87.891 Personal history of nicotine dependence; Z95.1 Presence of aortocoronary bypass graft; Z95.810 Presence of automatic (implantable) cardiac defibrillator; Z86.73 Personal history of transient ischemic attack (TIA), and cerebral infarction without residual deficits
CPT/HCPCS: 96365; 96366; G0463; J1250; J1642

== ENCOUNTER → 2019-01-18 | Outpatient (CLI) | payer OTHER ==
[~2019-01-18] VITALS: Ht 30.5 cm; Wt 0.5 kg
[2019-01-18 07:45] VITALS: BP 107/60
[2019-01-18 08:00] VITALS: BP 105/62
[2019-01-18 08:15] VITALS: BP 90/58
[2019-01-18 08:30] VITALS: BP 109/55
[2019-01-18 09:15] VITALS: BP 91/56
[2019-01-18 11:00] VITALS: BP 114/75
== END | disposition home or self-care (01) ==
LOC: CHF HDHVI 08:00
PROVIDERS: ATTEND Internal Medicine Cardiovascular Disease
DX: I13.2 Hypertensive heart and chronic kidney disease with heart failure and with stage 5 chronic kidney disease, or end stage renal disease (principal); E11.22 Type 2 diabetes mellitus with diabetic chronic kidney disease; N18.6 End stage renal disease; I50.22 Chronic systolic (congestive) heart failure; I48.1 Persistent atrial fibrillation; I25.10 Atherosclerotic heart disease of native coronary artery without angina pectoris; I70.0 Atherosclerosis of aorta; I25.2 Old myocardial infarction; I42.9 Cardiomyopathy, unspecified; J44.9 Chronic obstructive pulmonary disease, unspecified; K21.9 Gastro-esophageal reflux disease without esophagitis; E78.5 Hyperlipidemia, unspecified; E03.9 Hypothyroidism, unspecified; E78.00 Pure hypercholesterolemia, unspecified; E11.40 Type 2 diabetes mellitus with diabetic neuropathy, unspecified; E11.319 Type 2 diabetes mellitus with unspecified diabetic retinopathy without macular edema; M19.072 Primary osteoarthritis, left ankle and foot; F31.9 Bipolar disorder, unspecified; G89.29 Other chronic pain; Z79.01 Long term (current) use of anticoagulants; Z79.899 Other long term (current) drug therapy; Z85.038 Personal history of other malignant neoplasm of large intestine; Z87.891 Personal history of nicotine dependence; Z95.1 Presence of aortocoronary bypass graft; Z95.810 Presence of automatic (implantable) cardiac defibrillator; Z86.73 Personal history of transient ischemic attack (TIA), and cerebral infarction without residual deficits
CPT/HCPCS: 96365; 96366; G0463; J1250; J1642

== ENCOUNTER → 2019-01-21 | Outpatient (CLI) | payer OTHER ==
[2019-01-21] VITALS (9 sets, daily range): BP systolic 88–143; BP diastolic 52–67
--- NOTE | 2019-01-21 07:30 | NUR ---
PT. TO CHF CLINIC FOR DOBUTREX INFUSION PER DR. ENGLISH. SEE NSG ASSESS. ORDERS RECEIVED AND CARRIED OUT.
--- NOTE | 2019-01-21 07:50 | NUR ---
Clinic Provider Clinic Provider into see pt with new orders received and carried out. Dobutamine gtt started at {5}mcg/kg/hr per MD order.
--- NOTE | 2019-01-21 10:55 | NUR ---
CHF tolerated infusion well. VS WNL. AWAKE AND WITHOUT DISTRESS FOR ENTIRE INFUSION. USING IPAD OR VISITING WITH OTHER PATIENTS. Patient tolerated procedure well. Ayah Cath Removal Quinones needle D/C'd after Heparin flush per protocol. See e-MAR for medications given during this visit. Sterile occlusive dressing to site. Patient tolerated procedure well. Site benign post infusion. MEDICATION ADMINISTRATION DOBUTAMINE GTT AT 5 MCG/KG/MIN START AT 0753/STOP AT 1053 (27.36 ML/HR) HEPARIN 500 UNITS IVP AT 1055 TO PORT
== END | disposition home or self-care (01) ==
LOC: CHF HDHVI 08:00
PROVIDERS: ATTEND Internal Medicine Cardiovascular Disease
DX: I13.2 Hypertensive heart and chronic kidney disease with heart failure and with stage 5 chronic kidney disease, or end stage renal disease (principal); E11.22 Type 2 diabetes mellitus with diabetic chronic kidney disease; I50.22 Chronic systolic (congestive) heart failure; N18.6 End stage renal disease; I25.10 Atherosclerotic heart disease of native coronary artery without angina pectoris; I42.8 Other cardiomyopathies; I25.2 Old myocardial infarction; I48.1 Persistent atrial fibrillation; G89.29 Other chronic pain; M54.9 Dorsalgia, unspecified; J44.9 Chronic obstructive pulmonary disease, unspecified; E11.41 Type 2 diabetes mellitus with diabetic mononeuropathy; E11.319 Type 2 diabetes mellitus with unspecified diabetic retinopathy without macular edema; M19.072 Primary osteoarthritis, left ankle and foot; K21.9 Gastro-esophageal reflux disease without esophagitis; E78.5 Hyperlipidemia, unspecified; E03.9 Hypothyroidism, unspecified; F31.9 Bipolar disorder, unspecified; Z90.89 Acquired absence of other organs; Z79.01 Long term (current) use of anticoagulants; Z95.5 Presence of coronary angioplasty implant and graft; Z85.038 Personal history of other malignant neoplasm of large intestine; Z87.891 Personal history of nicotine dependence; Z79.899 Other long term (current) drug therapy; Z95.1 Presence of aortocoronary bypass graft; Z95.810 Presence of automatic (implantable) cardiac defibrillator
CPT/HCPCS: 96365; 96366; G0463; J1250; J1642

== ENCOUNTER → 2019-01-23 | Outpatient (CLI) | payer OTHER ==
--- NOTE | 2019-01-23 07:30 | NUR ---
CHF PT TO CHF CLINIC 0 DISTRESS A/O X 3 HERE FOR DOBUTAMINE THERAPY
--- NOTE | 2019-01-23 08:00 | NUR ---
Ayah Cath Insertion 20 gauge Ayah Cath inserted by Kandy ALVAREZ using sterile technique in the R upper chest with occlusive dressing over saucedo needle. Patient tolerated procedure well. Ordered labs drawn and sent. See e-MAR for medications given during this visit.
[2019-01-23 08:08] VITALS: BP 127/80
--- NOTE | 2019-01-23 11:10 | NUR ---
Port Needle REMOVED Port Needle Dressing Change provided. See e-MAR for medications given during this visit. Line Heparinized. Vital signs stable. Pt tolerated procedure well.
[2019-01-23 11:14] VITALS: BP 117/79
--- NOTE | 2019-01-23 11:14 | NUR ---
Discharge Instructions See e-MAR for any mediations given with this visit. Patient education given on disease process. Patient verbalized understanding. Previous labs reviewed. Patient discharged in stable condition with after care instructions and follow up appointment. MEDICATIONS 0808 START TIME DOBUTAMINE 5MCG/KG/MIN 1110 STOP TIME DOBUTAMINE DRIP HEPARIN 500 UNITS IVP
== END | disposition home or self-care (01) ==
LOC: CHF HDHVI 08:09
PROVIDERS: ATTEND Internal Medicine Cardiovascular Disease
DX: I13.2 Hypertensive heart and chronic kidney disease with heart failure and with stage 5 chronic kidney disease, or end stage renal disease (principal); E11.22 Type 2 diabetes mellitus with diabetic chronic kidney disease; I50.22 Chronic systolic (congestive) heart failure; N18.6 End stage renal disease; D64.9 Anemia, unspecified; I48.1 Persistent atrial fibrillation; I25.10 Atherosclerotic heart disease of native coronary artery without angina pectoris; I25.2 Old myocardial infarction; J44.9 Chronic obstructive pulmonary disease, unspecified; K21.9 Gastro-esophageal reflux disease without esophagitis; E78.00 Pure hypercholesterolemia, unspecified; E11.319 Type 2 diabetes mellitus with unspecified diabetic retinopathy without macular edema; E78.5 Hyperlipidemia, unspecified; E03.9 Hypothyroidism, unspecified; M19.072 Primary osteoarthritis, left ankle and foot; G89.29 Other chronic pain; F31.9 Bipolar disorder, unspecified; Z79.899 Other long term (current) drug therapy; Z87.891 Personal history of nicotine dependence; Z95.5 Presence of coronary angioplasty implant and graft; Z86.73 Personal history of transient ischemic attack (TIA), and cerebral infarction without residual deficits; Z90.89 Acquired absence of other organs; Z79.01 Long term (current) use of anticoagulants; Z95.1 Presence of aortocoronary bypass graft; Z95.810 Presence of automatic (implantable) cardiac defibrillator; Z85.038 Personal history of other malignant neoplasm of large intestine
CPT/HCPCS: 96365; 96366; G0463; J1250; J1642

== ENCOUNTER → 2019-01-25 | Outpatient (CLI) | payer OTHER ==
[2019-01-25] VITALS (10 sets, daily range): BP systolic 94–125; BP diastolic 56–81
--- NOTE | 2019-01-25 11:00 | NUR ---
CHF CLINIC Discharge Instructions See e-MAR for any mediations given with this visit. Patient education given on disease process. Patient verbalized understanding. Previous labs reviewed. Patient discharged in stable condition with after care instructions and follow up appointment ON MONDAY. NOTE DOBUTAMINE [id number] ADMIN BY ISAC ALVAREZ. HEPARIN ADMIN BY MACY ALVAREZ.
== END | disposition home or self-care (01) ==
LOC: CHF HDHVI 07:54
PROVIDERS: ATTEND Internal Medicine Cardiovascular Disease
DX: I13.2 Hypertensive heart and chronic kidney disease with heart failure and with stage 5 chronic kidney disease, or end stage renal disease (principal); E11.22 Type 2 diabetes mellitus with diabetic chronic kidney disease; I50.22 Chronic systolic (congestive) heart failure; N18.6 End stage renal disease; D64.9 Anemia, unspecified; I48.1 Persistent atrial fibrillation; I25.10 Atherosclerotic heart disease of native coronary artery without angina pectoris; I25.2 Old myocardial infarction; J44.9 Chronic obstructive pulmonary disease, unspecified; K21.9 Gastro-esophageal reflux disease without esophagitis; E78.5 Hyperlipidemia, unspecified; G89.29 Other chronic pain; E78.00 Pure hypercholesterolemia, unspecified; E03.9 Hypothyroidism, unspecified; E11.319 Type 2 diabetes mellitus with unspecified diabetic retinopathy without macular edema; E11.40 Type 2 diabetes mellitus with diabetic neuropathy, unspecified; M19.079 Primary osteoarthritis, unspecified ankle and foot; F31.9 Bipolar disorder, unspecified; Z90.89 Acquired absence of other organs; Z79.899 Other long term (current) drug therapy; Z87.891 Personal history of nicotine dependence; Z85.038 Personal history of other malignant neoplasm of large intestine; Z86.73 Personal history of transient ischemic attack (TIA), and cerebral infarction without residual deficits; Z79.01 Long term (current) use of anticoagulants; Z95.1 Presence of aortocoronary bypass graft; Z95.810 Presence of automatic (implantable) cardiac defibrillator; Z95.5 Presence of coronary angioplasty implant and graft
CPT/HCPCS: 96365; 96366; G0463; J1250; J1642

== ENCOUNTER → 2019-01-28 | Outpatient (CLI) | payer OTHER ==
[2019-01-28] VITALS (10 sets, daily range): BP systolic 109–137; BP diastolic 60–74
--- NOTE | 2019-01-28 11:20 | NUR ---
CHF CLINIC Discharge Instructions See e-MAR for any mediations given with this visit. Patient education given on disease process. Patient verbalized understanding. Previous labs reviewed. Patient discharged in stable condition with after care instructions and follow up appointment. NOTE DOBUTAMINE [id number] ADMIN BY MACY ALVAREZ HEPARIN ADMIN BY MACY ALVAREZ
[2019-01-28 12:35] LABS: Potassium 4.2 mmol/L (3.5-5.1)
[2019-01-28 12:39] LABS: Basophils # (auto) 0 uL; Basophils % (auto) 0.9 % (0.0-2.0); Eosinophils # (auto) 0.3 uL; Eosinophils % (auto) 8.6 % (0.0-7.0); Hematocrit 40.4 % (41.0-53.0); Hemoglobin 13.8 g/dL (13.5-17.5); Lymphocytes # (auto) 1.3 uL; Lymphocytes % (auto) 31.3 % (10.0-50.0); Mean Corpuscular Hemoglobin 33.3 pg (28.0-32.0); Mean Corpuscular Hgb Conc. 34.2 g/dL (32.0-36.0); Mean Corpuscular Volume 97.3 fL (80.0-100.0); Monocytes # (auto) 0.7 uL; Monocytes % (auto) 17.7 % (0.0-12.0); Neutrophils # (auto) 1.7 uL; Neutrophils % (auto) 41.5 % (37.0-80.0); Platelet Count (auto) 137 10^3/uL (140-450); Red Blood Cells 4.15 10^6/uL (4.5-5.90); Red Cell Distribution Width 13.3 % (11.8-14.3)
[2019-01-28 12:50] LABS: Albumin 3.6 g/dL (3.4-5.0); BUN/Creatinine Ratio 17.1; Bilirubin, Total 0.5 mg/dL (0.2-1.0); Calcium 8.8 mg/dL (8.5-10.1); Magnesium 2.6 mg/dL (1.6-2.6); Total Protein 6.9 g/dL (6.4-8.2)
== END | disposition home or self-care (01) ==
LOC: CHF HDHVI 07:56
PROVIDERS: ATTEND Internal Medicine Cardiovascular Disease
DX: I13.2 Hypertensive heart and chronic kidney disease with heart failure and with stage 5 chronic kidney disease, or end stage renal disease (principal); E11.22 Type 2 diabetes mellitus with diabetic chronic kidney disease; I50.23 Acute on chronic systolic (congestive) heart failure; N18.6 End stage renal disease; D64.9 Anemia, unspecified; E83.40 Disorders of magnesium metabolism, unspecified; I48.1 Persistent atrial fibrillation; I25.10 Atherosclerotic heart disease of native coronary artery without angina pectoris; J44.9 Chronic obstructive pulmonary disease, unspecified; K21.9 Gastro-esophageal reflux disease without esophagitis; I25.2 Old myocardial infarction; M19.072 Primary osteoarthritis, left ankle and foot; G89.29 Other chronic pain; F31.9 Bipolar disorder, unspecified; E11.319 Type 2 diabetes mellitus with unspecified diabetic retinopathy without macular edema; E11.40 Type 2 diabetes mellitus with diabetic neuropathy, unspecified; E78.5 Hyperlipidemia, unspecified; E03.9 Hypothyroidism, unspecified; E78.00 Pure hypercholesterolemia, unspecified; Z95.5 Presence of coronary angioplasty implant and graft; Z79.899 Other long term (current) drug therapy; Z79.01 Long term (current) use of anticoagulants; Z85.038 Personal history of other malignant neoplasm of large intestine; Z87.891 Personal history of nicotine dependence; Z95.810 Presence of automatic (implantable) cardiac defibrillator; Z86.73 Personal history of transient ischemic attack (TIA), and cerebral infarction without residual deficits; Z90.89 Acquired absence of other organs
CPT/HCPCS: 36415; 80053; 82306; 83735; 83880; 85025; 93701; 96365; 96366; G0463; J1250; J1642

== ENCOUNTER → 2019-01-30 | Outpatient (CLI) | payer OTHER ==
[2019-01-30] VITALS (9 sets, daily range): BP systolic 112–132; BP diastolic 61–82
[~2019-01-30] MED LIST changes: +DOBUTamine 1000MCG/ML 250 ML IV SCH
--- NOTE | 2019-01-30 07:30 | NUR ---
CHF PT ARRIVED TO CLINIC FOR DOBUTAMINE DRIP THERAPY.
--- NOTE | 2019-01-30 07:45 | NUR ---
Ayah Cath Insertion 20 gauge Ayah Cath inserted using sterile technique in the upper chest with occlusive dressing over saucedo needle. Patient tolerated procedure well. Ordered labs drawn and sent. See e-MAR for medications given during this visit. STARTED BY ISAC ALVAREZ
--- NOTE | 2019-01-30 07:52 | NUR ---
Clinic Provider Dobutamine gtt started at {5}mcg/kg/hr per MD order.
--- NOTE | 2019-01-30 11:00 | NUR ---
Ayah Cath Removal Quinones needle D/C'd after Heparin flush per protocol. See e-MAR for medications given during this visit. Sterile occlusive dressing to site. Patient tolerated procedure well. Site benign post infusion. BY ISAC ALVAREZ
--- NOTE | 2019-01-30 11:05 | NUR ---
PT PRESENTED THIS AM WITH REPORT OF IRREGULAR HEART RATE. 12 LEAD EKG COMPLETED AND COMPARED TO PREVIOUS EKG FROM 2017. NOTED TO HAVE SLIGHTLY MORE PVCS. PRAVIN FROM [employer] CALLED IN AND NOTED THAT PT HAS 110 INCREASED PVCS SINCE December. ALSO NOTED THAT ON DEC 27 PT HAD 13 SECONDS OF NON-SUSTAINED VTACH AT 1130 AT NIGHT. PT REPORTEDLY UNAWARE. FINDINGS REPORTED TO DR ENGLISH WITH NEW ORDERS RECIEVED. PT TO START MEXILETINE 100MG PO BID. RX FOR SCRIPT SENT TO [facility] ON [address] [facility]. PT AWARE. INSTRUCTED TO REDUCE EVENING METOPROLOL TO 25 MG INSTEAD OF 50 MG AT BEDTIME. REPEAT BACK INSTRUCTIONS OBTAINED.
--- NOTE | 2019-01-30 11:15 | NUR ---
Discharge Instructions See e-MAR for any mediations given with this visit. Patient education given on disease process. Patient verbalized understanding. Previous labs reviewed. Patient discharged in stable condition with after care instructions and follow up appointment. MEDICATIONS START TIME 0757 DOBUTAMINE DRIP 5MCG/KG/MIN STOP TIME 1105 HEPARIN 500 UNITS IV X 1
== END | disposition home or self-care (01) ==
LOC: CHF HDHVI 07:58
PROVIDERS: ATTEND Internal Medicine Cardiovascular Disease
DX: I13.2 Hypertensive heart and chronic kidney disease with heart failure and with stage 5 chronic kidney disease, or end stage renal disease (principal); E11.22 Type 2 diabetes mellitus with diabetic chronic kidney disease; I50.22 Chronic systolic (congestive) heart failure; N18.6 End stage renal disease; R00.2 Palpitations; I48.1 Persistent atrial fibrillation; I25.2 Old myocardial infarction; I25.10 Atherosclerotic heart disease of native coronary artery without angina pectoris; I42.9 Cardiomyopathy, unspecified; M19.072 Primary osteoarthritis, left ankle and foot; E11.319 Type 2 diabetes mellitus with unspecified diabetic retinopathy without macular edema; E11.40 Type 2 diabetes mellitus with diabetic neuropathy, unspecified; K21.9 Gastro-esophageal reflux disease without esophagitis; G89.29 Other chronic pain; J44.9 Chronic obstructive pulmonary disease, unspecified; E03.9 Hypothyroidism, unspecified; E78.5 Hyperlipidemia, unspecified; E78.00 Pure hypercholesterolemia, unspecified; F31.9 Bipolar disorder, unspecified; Z90.89 Acquired absence of other organs; Z85.038 Personal history of other malignant neoplasm of large intestine; Z86.73 Personal history of transient ischemic attack (TIA), and cerebral infarction without residual deficits; Z79.01 Long term (current) use of anticoagulants; Z95.1 Presence of aortocoronary bypass graft; Z87.891 Personal history of nicotine dependence; Z79.899 Other long term (current) drug therapy; Z95.810 Presence of automatic (implantable) cardiac defibrillator
CPT/HCPCS: 93005; 96365; 96366; G0463; J1250; J1642

== ENCOUNTER → 2019-02-01 | Outpatient (CLI) | payer OTHER ==
[2019-02-01] VITALS (9 sets, daily range): BP systolic 96–122; BP diastolic 55–71
[~2019-02-01] MED LIST changes: -DOBUTamine 1000MCG/ML 250 ML IV SCH
--- NOTE | 2019-02-01 11:06 | NUR ---
CHF CLINIC Discharge Instructions See e-MAR for any mediations given with this visit. Patient education given on disease process. Patient verbalized understanding. Previous labs reviewed. Patient discharged in stable condition with after care instructions and follow up appointment. NOTE DOBUTAMINE [id number] ADMIN BY GISELA ALVAREZ HEPARIN ADMIN BY ISAC ALVAREZ
== END | disposition home or self-care (01) ==
LOC: CHF HDHVI 08:06
PROVIDERS: ATTEND Internal Medicine Cardiovascular Disease
DX: I13.2 Hypertensive heart and chronic kidney disease with heart failure and with stage 5 chronic kidney disease, or end stage renal disease (principal); E11.22 Type 2 diabetes mellitus with diabetic chronic kidney disease; I50.22 Chronic systolic (congestive) heart failure; N18.6 End stage renal disease; D64.9 Anemia, unspecified; I48.1 Persistent atrial fibrillation; J44.9 Chronic obstructive pulmonary disease, unspecified; I25.2 Old myocardial infarction; I42.9 Cardiomyopathy, unspecified; G89.29 Other chronic pain; K21.9 Gastro-esophageal reflux disease without esophagitis; E78.5 Hyperlipidemia, unspecified; E03.9 Hypothyroidism, unspecified; E11.319 Type 2 diabetes mellitus with unspecified diabetic retinopathy without macular edema; E11.40 Type 2 diabetes mellitus with diabetic neuropathy, unspecified; M19.072 Primary osteoarthritis, left ankle and foot; F31.9 Bipolar disorder, unspecified; E78.00 Pure hypercholesterolemia, unspecified; Z90.89 Acquired absence of other organs; Z79.899 Other long term (current) drug therapy; Z86.73 Personal history of transient ischemic attack (TIA), and cerebral infarction without residual deficits; Z85.038 Personal history of other malignant neoplasm of large intestine; Z79.01 Long term (current) use of anticoagulants; Z95.810 Presence of automatic (implantable) cardiac defibrillator; Z87.891 Personal history of nicotine dependence; Z95.5 Presence of coronary angioplasty implant and graft; Z95.1 Presence of aortocoronary bypass graft
CPT/HCPCS: 96365; 96366; G0463; J1250; J1642

== ENCOUNTER → 2019-02-04 | Outpatient (CLI) | payer OTHER ==
[2019-02-04] VITALS (10 sets, daily range): BP systolic 101–129; BP diastolic 56–77
--- NOTE | 2019-02-04 07:55 | NUR ---
Ayah Cath Insertion 20 gauge Ayah Cath inserted using sterile technique in the upper chest with occlusive dressing over saucedo needle. Patient tolerated procedure well. Ordered labs drawn and sent. See e-MAR for medications given during this visit. Clinic Provider Clinic Provider into see pt with new orders received and carried out. Dobutamine gtt started at {5}mcg/kg/hr per MD ORDER.
--- NOTE | 2019-02-04 08:00 | NUR ---
PT YELLS "OH OH, ITS GOING TO HAPPEN" SITTING UP IN CHAIR. COLOR PALE. REPORTS THAT HIS AICD IS PREPARING TO FIRE. RN IN ATTENDANCE. DOBUTAMINE TURNED TO OFF.
--- NOTE | 2019-02-04 08:05 | NUR ---
NO FIRING OF AICD. ON MONITOR BY DEFIBRILLATOR. NO CHANGE NOTED. RHYTHM APPEAR PACED AND VENTRICULAR PER NORMAL RATE. GIVE IV FLUIDS FOR HEAD (WOOZY).
--- NOTE | 2019-02-04 08:10 | NUR ---
NORMAL COLOR. REPORTS FEELING BETTER. RESUME DOBUTAMINE GTT AT 4 MCG/KG/MIN. REVIEWED SIDE EFFECTS OF NEW MEDICATION MIXELITINE, AND PT MAY CERTAINLY BE FEELING SIDE EFFECTS. NEW MEDICATION WAS TAKEN BY PATIENT TODAY AT 430 AM. WILL CLARIFY . ALSO FOLLOW WITH MD ALSO.
--- NOTE | 2019-02-04 10:00 | NUR ---
CONTINUES TO TOLERATE IV FLUID. NO FURTHER EPISODE WHERE HE FEEL LIKE AICD IM GOING TO FIRE. VS WNL
--- NOTE | 2019-02-04 11:00 | NUR ---
CHF COMPLETED INFUSION. STILL REPORTS FEELING ABNORMAL. ALL PTS SYMPTOMS WERE ADDRESSED. REVIEWED PT STATUS WITH PHYSICIAN WITH NEW ORDERS RECIEVED.
--- NOTE | 2019-02-04 11:05 | NUR ---
chf completed treatment. tolerated well. still reports feeling (WOOZY) IN THE HEAD. ABSOLUTELY REFUSES TO HAVE NURSING CONTACT FAMILY AND PATIENT INSISTS THAT HE CAN DRIVE HIMSELF HOME. INSTRUCTIONS FOR MEXILITINE: SKIP DOSE TOMORROW AND OPEN MEDICATION CAPSULE INTO APPLESAUCE AND MIX WELL, TAKE 1/2 OF APPLESAUCE IN MEDICINE CUP. ( GOAL DOSE IS 100 MG DAILY) Discharge Instructions See e-MAR for any mediations given with this visit. Patient education given on disease process. Patient verbalized understanding. Previous labs reviewed. Patient discharged in stable condition with after care instructions and follow up appointment FOR Monday02/06/19 MEDICATION ADMINISTRATION DOBUTAMINE GTT START AT 0755/STOP AT 1105 (27.27 AND 22.05 ML/HR) HEPARIN 500 UNITS IVP TO RIGHT CHEST PORT
[2019-02-04 12:34] LABS: Potassium 4.3 mmol/L (3.5-5.1)
== END | disposition home or self-care (01) ==
LOC: CHF HDHVI 08:05
PROVIDERS: ATTEND Internal Medicine Cardiovascular Disease
DX: E11.22 Type 2 diabetes mellitus with diabetic chronic kidney disease (principal); I13.2 Hypertensive heart and chronic kidney disease with heart failure and with stage 5 chronic kidney disease, or end stage renal disease; N18.6 End stage renal disease; I50.23 Acute on chronic systolic (congestive) heart failure; E87.6 Hypokalemia; R94.4 Abnormal results of kidney function studies; I48.91 Unspecified atrial fibrillation; D63.1 Anemia in chronic kidney disease; I25.10 Atherosclerotic heart disease of native coronary artery without angina pectoris; F31.9 Bipolar disorder, unspecified; K21.9 Gastro-esophageal reflux disease without esophagitis; E78.5 Hyperlipidemia, unspecified; E03.9 Hypothyroidism, unspecified; I25.2 Old myocardial infarction; G89.29 Other chronic pain; M19.072 Primary osteoarthritis, left ankle and foot; E78.00 Pure hypercholesterolemia, unspecified; E11.41 Type 2 diabetes mellitus with diabetic mononeuropathy; J44.9 Chronic obstructive pulmonary disease, unspecified; E11.319 Type 2 diabetes mellitus with unspecified diabetic retinopathy without macular edema; E11.40 Type 2 diabetes mellitus with diabetic neuropathy, unspecified; Z86.73 Personal history of transient ischemic attack (TIA), and cerebral infarction without residual deficits; Z95.810 Presence of automatic (implantable) cardiac defibrillator; Z79.01 Long term (current) use of anticoagulants; Z79.899 Other long term (current) drug therapy; Z85.038 Personal history of other malignant neoplasm of large intestine; Z87.891 Personal history of nicotine dependence; Z95.1 Presence of aortocoronary bypass graft
CPT/HCPCS: 36415; 82565; 83880; 84132; 84520; 96365; 96366; G0463; J1250; J1642

== ENCOUNTER → 2019-02-06 | Outpatient (CLI) | payer OTHER ==
[2019-02-06] VITALS (10 sets, daily range): BP systolic 93–122; BP diastolic 52–74
[~2019-02-06] VITALS: Ht 30.5 cm; Wt 91.2 kg
[~2019-02-06] MED LIST changes: +KETOROLAC TROMETH 60MG/2ML VIAL IM ONE
--- NOTE | 2019-02-06 11:00 | NUR ---
CHF CLINIC Discharge Instructions See e-MAR for any mediations given with this visit. Patient education given on disease process. Patient verbalized understanding. Previous labs reviewed. Patient discharged in stable condition with after care instructions and follow up appointment. NOTE DOBUTAMINE [id number] ADMIN BY ISAC ALVAREZ TORADOL IM R GLUTE ADMIN BY BUDDY CABRAL HEPARIN ADMIN BY ISAC ALVAREZ
== END | disposition home or self-care (01) ==
LOC: CHF HDHVI 08:02
PROVIDERS: ATTEND Internal Medicine Cardiovascular Disease
DX: I13.2 Hypertensive heart and chronic kidney disease with heart failure and with stage 5 chronic kidney disease, or end stage renal disease (principal); E11.22 Type 2 diabetes mellitus with diabetic chronic kidney disease; N18.6 End stage renal disease; I50.22 Chronic systolic (congestive) heart failure; I48.1 Persistent atrial fibrillation; I25.2 Old myocardial infarction; I25.10 Atherosclerotic heart disease of native coronary artery without angina pectoris; M54.9 Dorsalgia, unspecified; G89.29 Other chronic pain; K21.9 Gastro-esophageal reflux disease without esophagitis; E78.5 Hyperlipidemia, unspecified; J44.9 Chronic obstructive pulmonary disease, unspecified; E03.9 Hypothyroidism, unspecified; F31.9 Bipolar disorder, unspecified; E78.00 Pure hypercholesterolemia, unspecified; E11.319 Type 2 diabetes mellitus with unspecified diabetic retinopathy without macular edema; M19.079 Primary osteoarthritis, unspecified ankle and foot; Z79.899 Other long term (current) drug therapy; Z85.038 Personal history of other malignant neoplasm of large intestine; Z87.891 Personal history of nicotine dependence; Z90.89 Acquired absence of other organs; Z79.01 Long term (current) use of anticoagulants; Z95.810 Presence of automatic (implantable) cardiac defibrillator; Z86.73 Personal history of transient ischemic attack (TIA), and cerebral infarction without residual deficits; Z95.1 Presence of aortocoronary bypass graft
CPT/HCPCS: 96365; 96366; 96372; G0463; J1250; J1642; J1885

== ENCOUNTER → 2019-02-08 | Outpatient (CLI) | payer OTHER ==
[~2019-02-08] VITALS: Ht 30.5 cm; Wt 90.3 kg
[2019-02-08] VITALS (8 sets, daily range): BP systolic 113–136; BP diastolic 61–74
[~2019-02-08] MED LIST changes: -KETOROLAC TROMETH 60MG/2ML VIAL IM ONE
--- NOTE | 2019-02-08 07:35 | NUR ---
PT. TO CHF CLINIC FOR DOBUTAMINE INFUSION PER MD ORDER. PT. STATES HE IS NOT TOLERATING MEXITIL WELL AND DID NOT SLEEP ALL NIGHT LONG. PT. TOOK LAST DOSE AT 2019 LAST NIGHT, HALF DOSE, TOTAL 100MG. APPT. MADE FOR DR. ENGLISH THIS AM. ORDERS RECEVED AND CARRIED OUT.
--- NOTE | 2019-02-08 07:55 | NUR ---
Clinic Provider Clinic Provider into see pt with new orders received and carried out. Dobutamine gtt started at {5}mcg/kg/hr per MD order.
--- NOTE | 2019-02-08 11:05 | NUR ---
CHF CLINIC Discharge Instructions See e-MAR for any mediations given with this visit. Patient education given on disease process. Patient verbalized understanding. Previous labs reviewed. Patient discharged in stable condition with after care instructions and follow up appointment. NOTE DOBUTAMINE INFUSION [id number] ADMIN BY GISELA ALVAREZ. HEPARIN ADMIN BY ISAC ALVAREZ. DR ENGLISH DC'D PATIENT MEDICATION MEXILETINE, PATIENT VERBALIZED UNDERSTANDING.
== END | disposition home or self-care (01) ==
LOC: CHF HDHVI 08:01
PROVIDERS: ATTEND Internal Medicine Cardiovascular Disease
DX: I13.2 Hypertensive heart and chronic kidney disease with heart failure and with stage 5 chronic kidney disease, or end stage renal disease (principal); E11.22 Type 2 diabetes mellitus with diabetic chronic kidney disease; N18.6 End stage renal disease; I50.22 Chronic systolic (congestive) heart failure; I25.10 Atherosclerotic heart disease of native coronary artery without angina pectoris; I48.1 Persistent atrial fibrillation; I42.8 Other cardiomyopathies; I25.2 Old myocardial infarction; J44.9 Chronic obstructive pulmonary disease, unspecified; K21.9 Gastro-esophageal reflux disease without esophagitis; G89.29 Other chronic pain; M19.072 Primary osteoarthritis, left ankle and foot; E78.5 Hyperlipidemia, unspecified; E03.9 Hypothyroidism, unspecified; E78.00 Pure hypercholesterolemia, unspecified; E11.319 Type 2 diabetes mellitus with unspecified diabetic retinopathy without macular edema; E11.41 Type 2 diabetes mellitus with diabetic mononeuropathy; Z90.89 Acquired absence of other organs; Z79.01 Long term (current) use of anticoagulants; Z95.1 Presence of aortocoronary bypass graft; Z95.5 Presence of coronary angioplasty implant and graft; Z79.899 Other long term (current) drug therapy; Z95.810 Presence of automatic (implantable) cardiac defibrillator; Z86.73 Personal history of transient ischemic attack (TIA), and cerebral infarction without residual deficits; Z85.038 Personal history of other malignant neoplasm of large intestine; Z87.891 Personal history of nicotine dependence
CPT/HCPCS: 96365; 96366; G0463; J1250; J1642

== ENCOUNTER → 2019-02-11 | Outpatient (CLI) | payer OTHER ==
[~2019-02-11] VITALS: Ht 30.5 cm; Wt 41.3 kg
[2019-02-11] VITALS (10 sets, daily range): BP systolic 99–118; BP diastolic 51–74
--- NOTE | 2019-02-11 07:30 | NUR ---
PATIENT ARRIVED TO CHF CLINIC FOR DOBUTAMINE INFUSION PER DR ENGLISH'S ORDERS. PATIENT SATED < I AM MUCH BETTER, SINCE DISCONTINUING MEXITIL MEDICATION LAST MONDAY PER MD INSTRUCTION> . NEW ORDERS RECEIVED FROM DR ENGLISH AND CARRIED OUT. PLEASE SEE NURSING ASSESSMENT.
--- NOTE | 2019-02-11 07:40 | NUR ---
Ayah Cath Insertion 20 gauge Ayah Cath inserted using sterile technique in the upper chest with occlusive dressing over saucedo needle. Patient tolerated procedure well. Ordered labs drawn and sent. See e-MAR for medications given during this visit. PATIENT TOLERATED WELL.
--- NOTE | 2019-02-11 07:45 | NUR ---
Clinic Provider Clinic Provider into see pt with new orders received and carried out. Dobutamine gtt started at {5}mcg/kg/hr per MD order.
--- NOTE | 2019-02-11 10:00 | NUR ---
VISITING WITH PATIENTS. WITHOUT DISTRESS.
--- NOTE | 2019-02-11 10:50 | NUR ---
Ayah Cath Removal Quinones needle D/C'd after Heparin flush per protocol. See e-MAR for medications given during this visit. Sterile occlusive dressing to site. Patient tolerated procedure well. Site benign post infusion. Discharge Instructions See e-MAR for any mediations given with this visit. Patient education given on disease process. Patient verbalized understanding. Previous labs reviewed. Patient discharged in stable condition with after care instructions and follow up appointment. MEDICATION ADMINISTRATION DOBUTAMINE GTT AT 5MCG/KG/MIN START AT 0745/STOP AT 1045 (27.33 ML/HR) HEPARIN 500 UNITS IVP AT 1047
[2019-02-11 11:52] LABS: Albumin 3.7 g/dL (3.4-5.0); Calcium 8.9 mg/dL (8.5-10.1); Magnesium 2.8 mg/dL (1.6-2.6); Potassium 4.2 mmol/L (3.5-5.1)
[2019-02-11 11:53] LABS: Basophils # (auto) 0 uL; Basophils % (auto) 0.8 % (0.0-2.0); Eosinophils # (auto) 0.4 uL; Eosinophils % (auto) 10.1 % (0.0-7.0); Hematocrit 43.7 % (41.0-53.0); Hemoglobin 14.6 g/dL (13.5-17.5); Lymphocytes # (auto) 1.3 uL; Lymphocytes % (auto) 32.5 % (10.0-50.0); Mean Corpuscular Hemoglobin 32.8 pg (28.0-32.0); Mean Corpuscular Hgb Conc. 33.4 g/dL (32.0-36.0); Mean Corpuscular Volume 98.2 fL (80.0-100.0); Monocytes # (auto) 0.7 uL; Monocytes % (auto) 17.2 % (0.0-12.0); Neutrophils # (auto) 1.6 uL; Neutrophils % (auto) 39.4 % (37.0-80.0); Nucleated Red Blood Cells % 0.8 %; Platelet Count (auto) 150 10^3/uL (140-450); Red Blood Cells 4.45 10^6/uL (4.5-5.90); Red Cell Distribution Width 13.3 % (11.8-14.3); White Blood Cell 4.2 10^3/uL (4.4-10.8)
[2019-02-11 11:55] LABS: BUN/Creatinine Ratio 14.2; Bilirubin, Total 0.6 mg/dL (0.2-1.0); Total Protein 7.3 g/dL (6.4-8.2)
== END | disposition home or self-care (01) ==
LOC: CHF HDHVI 07:55
PROVIDERS: ATTEND Internal Medicine Cardiovascular Disease
DX: I13.2 Hypertensive heart and chronic kidney disease with heart failure and with stage 5 chronic kidney disease, or end stage renal disease (principal); E11.22 Type 2 diabetes mellitus with diabetic chronic kidney disease; I50.23 Acute on chronic systolic (congestive) heart failure; N18.6 End stage renal disease; D64.9 Anemia, unspecified; E29.1 Testicular hypofunction; I42.8 Other cardiomyopathies; I48.1 Persistent atrial fibrillation; I25.10 Atherosclerotic heart disease of native coronary artery without angina pectoris; I25.2 Old myocardial infarction; J44.9 Chronic obstructive pulmonary disease, unspecified; K21.9 Gastro-esophageal reflux disease without esophagitis; E03.9 Hypothyroidism, unspecified; G89.29 Other chronic pain; M54.9 Dorsalgia, unspecified; M19.072 Primary osteoarthritis, left ankle and foot; E11.319 Type 2 diabetes mellitus with unspecified diabetic retinopathy without macular edema; E11.41 Type 2 diabetes mellitus with diabetic mononeuropathy; F31.9 Bipolar disorder, unspecified; Z79.899 Other long term (current) drug therapy; Z90.89 Acquired absence of other organs; Z85.038 Personal history of other malignant neoplasm of large intestine; Z87.891 Personal history of nicotine dependence; Z86.73 Personal history of transient ischemic attack (TIA), and cerebral infarction without residual deficits; Z95.1 Presence of aortocoronary bypass graft; Z95.810 Presence of automatic (implantable) cardiac defibrillator
CPT/HCPCS: 36415; 80053; 83735; 83880; 84403; 85025; 96365; 96366; G0463; J1250; J1642

== ENCOUNTER → 2019-02-13 | Outpatient (CLI) | payer OTHER ==
[2019-02-13] VITALS (7 sets, daily range): BP systolic 90–129; BP diastolic 55–75
--- NOTE | 2019-02-13 07:30 | NUR ---
PT. TO CHF CLINIC FOR DOBUTAMINE INFUSION PER DR. ENGLISH. SEE NSG ASSESS. ORDERS RECEIVED AND CARRIED OUT.
--- NOTE | 2019-02-13 07:48 | NUR ---
Clinic Provider Clinic Provider into see pt with new orders received and carried out. Dobutamine gtt started at {5}mcg/kg/hr per MD order.
--- NOTE | 2019-02-13 10:54 | NUR ---
Discharge Instructions See e-MAR for any mediations given with this visit. Patient education given on disease process. Patient verbalized understanding. Previous labs reviewed. Patient discharged in stable condition with after care instructions and follow up appointment. MEDICATIONS 0745 START TIME DOBUTAMINE DRIP 5MCG/KG/MIN 1054 STOP TIME DOBUTAMINE 1050 HEPARIN 500 UNITS IVP X 1 TO LORRI CATH
== END | disposition home or self-care (01) ==
LOC: CHF HDHVI 07:44
PROVIDERS: ATTEND Internal Medicine Cardiovascular Disease
DX: I13.2 Hypertensive heart and chronic kidney disease with heart failure and with stage 5 chronic kidney disease, or end stage renal disease (principal); E11.22 Type 2 diabetes mellitus with diabetic chronic kidney disease; N18.6 End stage renal disease; I50.22 Chronic systolic (congestive) heart failure; I25.10 Atherosclerotic heart disease of native coronary artery without angina pectoris; I42.8 Other cardiomyopathies; J44.9 Chronic obstructive pulmonary disease, unspecified; K21.9 Gastro-esophageal reflux disease without esophagitis; I25.2 Old myocardial infarction; I48.1 Persistent atrial fibrillation; G89.29 Other chronic pain; M54.9 Dorsalgia, unspecified; M19.072 Primary osteoarthritis, left ankle and foot; E11.319 Type 2 diabetes mellitus with unspecified diabetic retinopathy without macular edema; E78.5 Hyperlipidemia, unspecified; E03.9 Hypothyroidism, unspecified; E78.00 Pure hypercholesterolemia, unspecified; E11.40 Type 2 diabetes mellitus with diabetic neuropathy, unspecified; Z85.038 Personal history of other malignant neoplasm of large intestine; F31.9 Bipolar disorder, unspecified; Z87.891 Personal history of nicotine dependence; Z79.899 Other long term (current) drug therapy; Z90.89 Acquired absence of other organs; Z79.01 Long term (current) use of anticoagulants; Z86.73 Personal history of transient ischemic attack (TIA), and cerebral infarction without residual deficits; Z95.810 Presence of automatic (implantable) cardiac defibrillator
CPT/HCPCS: 96365; 96366; G0463; J1250; J1642

== ENCOUNTER → 2019-02-15 | Outpatient (CLI) | payer OTHER ==
[2019-02-15] VITALS (10 sets, daily range): BP systolic 88–112; BP diastolic 51–68
--- NOTE | 2019-02-15 07:30 | NUR ---
PT. TO [facility]F CLINIC FOR DOBUTAMINE INFUSION PER MD ORDER. SEE NSG ASSESS. PT. BROUGHT HIS AFFLOVEST IN FOR EXAM, STATING HE NEEDS NEW BATTERY. WILL CONTACT REP. IN THIS AREA FOR ASSIST.
--- NOTE | 2019-02-15 07:43 | NUR ---
Clinic Provider Clinic Provider into see pt with new orders received and carried out. Dobutamine gtt started at {5}mcg/kg/hr per MD order.
--- NOTE | 2019-02-15 09:00 | NUR ---
pt. resting with no c/o. pt. states he just received an email from [employer], and they will be sending him a new battery overnight.
== END | disposition home or self-care (01) ==
LOC: CHF HDHVI 07:50
PROVIDERS: ATTEND Internal Medicine Cardiovascular Disease
DX: I13.2 Hypertensive heart and chronic kidney disease with heart failure and with stage 5 chronic kidney disease, or end stage renal disease (principal); E11.22 Type 2 diabetes mellitus with diabetic chronic kidney disease; I50.22 Chronic systolic (congestive) heart failure; N18.6 End stage renal disease; J44.9 Chronic obstructive pulmonary disease, unspecified; I25.10 Atherosclerotic heart disease of native coronary artery without angina pectoris; I48.1 Persistent atrial fibrillation; I25.2 Old myocardial infarction; I42.8 Other cardiomyopathies; K21.9 Gastro-esophageal reflux disease without esophagitis; E11.40 Type 2 diabetes mellitus with diabetic neuropathy, unspecified; E11.319 Type 2 diabetes mellitus with unspecified diabetic retinopathy without macular edema; E78.5 Hyperlipidemia, unspecified; E03.9 Hypothyroidism, unspecified; G89.29 Other chronic pain; F31.9 Bipolar disorder, unspecified; E78.00 Pure hypercholesterolemia, unspecified; M19.90 Unspecified osteoarthritis, unspecified site; Z86.73 Personal history of transient ischemic attack (TIA), and cerebral infarction without residual deficits; Z95.810 Presence of automatic (implantable) cardiac defibrillator; Z79.899 Other long term (current) drug therapy; Z85.038 Personal history of other malignant neoplasm of large intestine; Z87.891 Personal history of nicotine dependence; Z95.1 Presence of aortocoronary bypass graft
CPT/HCPCS: 96365; 96366; G0463; J1250; J1642

== ENCOUNTER → 2019-02-18 | Outpatient (CLI) | payer OTHER ==
[2019-02-18] VITALS (11 sets, daily range): BP systolic 96–112; BP diastolic 48–66
--- NOTE | 2019-02-18 07:30 | NUR ---
CHF PT ARRIVED TO THE CHF CLINIC ALERT AND ORIENTED 0 DISTRESS.
--- NOTE | 2019-02-18 07:45 | NUR ---
Ayah Cath Insertion 20 gauge Ayah Cath inserted using sterile technique in the upper chest with occlusive dressing over saucedo needle. Patient tolerated procedure well. Ordered labs drawn and sent. See e-MAR for medications given during this visit.
--- NOTE | 2019-02-18 10:45 | NUR ---
Discharge Instructions See e-MAR for any mediations given with this visit. Patient education given on disease process. Patient verbalized understanding. Previous labs reviewed. Patient discharged in stable condition with after care instructions and follow up appointment. MEDICATIONS 0749 START TIME DOBUTAMINE DRIP 1045 STOP TIME DOBUTAMINE DRIP 1040 HEPARIN 500 UNITS IV X 1 TO LORRI CATH
== END | disposition home or self-care (01) ==
LOC: CHF HDHVI 08:14
PROVIDERS: ATTEND Internal Medicine Cardiovascular Disease
DX: I13.2 Hypertensive heart and chronic kidney disease with heart failure and with stage 5 chronic kidney disease, or end stage renal disease (principal); E11.22 Type 2 diabetes mellitus with diabetic chronic kidney disease; I50.22 Chronic systolic (congestive) heart failure; N18.6 End stage renal disease; I25.10 Atherosclerotic heart disease of native coronary artery without angina pectoris; I48.1 Persistent atrial fibrillation; I25.2 Old myocardial infarction; K21.9 Gastro-esophageal reflux disease without esophagitis; J44.9 Chronic obstructive pulmonary disease, unspecified; F31.9 Bipolar disorder, unspecified; E78.5 Hyperlipidemia, unspecified; E03.9 Hypothyroidism, unspecified; E78.00 Pure hypercholesterolemia, unspecified; E11.319 Type 2 diabetes mellitus with unspecified diabetic retinopathy without macular edema; E11.41 Type 2 diabetes mellitus with diabetic mononeuropathy; G89.29 Other chronic pain; M54.9 Dorsalgia, unspecified; M19.072 Primary osteoarthritis, left ankle and foot; Z95.5 Presence of coronary angioplasty implant and graft; Z79.899 Other long term (current) drug therapy; Z87.891 Personal history of nicotine dependence; Z85.038 Personal history of other malignant neoplasm of large intestine; Z90.89 Acquired absence of other organs; Z86.73 Personal history of transient ischemic attack (TIA), and cerebral infarction without residual deficits; Z79.01 Long term (current) use of anticoagulants
CPT/HCPCS: 96365; 96366; G0463; J1250; J1642

== ENCOUNTER → 2019-02-20 | Outpatient (CLI) | payer OTHER ==
[2019-02-20] VITALS (9 sets, daily range): BP systolic 99–130; BP diastolic 51–85
--- NOTE | 2019-02-20 07:30 | NUR ---
PT. TO CHF CLINIC FOR DOBUTAMINE THERAPY PER DR. ENGLISH. ORDERS RECEVED AND CARRIED OUT. SEE NSG ASSESS,
--- NOTE | 2019-02-20 07:40 | NUR ---
Clinic Provider Clinic Provider into see pt with new orders received and carried out. Dobutamine gtt started at {5}mcg/kg/hr per MD order.
--- NOTE | 2019-02-20 10:45 | NUR ---
CHF TOLERATED INFUSION WELL. WITHOUT DISTRESS OR DISCOMFORT. VS WNL. Discharge Instructions See e-MAR for any mediations given with this visit. Patient education given on disease process. Patient verbalized understanding. Previous labs reviewed. Patient discharged in stable condition with after care instructions and follow up appointment FOR 02/22/19 MEDICATION ADMINISTRATION DOBUTAMINE GTT AT 5 MCG/KG/MIN START AT 0740/STOP AT 1040 (27.31ML/HR) HEPARIN 500 UNITS IVP AT 1045
== END | disposition home or self-care (01) ==
LOC: CHF HDHVI 07:53
PROVIDERS: ATTEND Internal Medicine Cardiovascular Disease
DX: I13.2 Hypertensive heart and chronic kidney disease with heart failure and with stage 5 chronic kidney disease, or end stage renal disease (principal); E11.22 Type 2 diabetes mellitus with diabetic chronic kidney disease; I50.22 Chronic systolic (congestive) heart failure; N18.6 End stage renal disease; I42.8 Other cardiomyopathies; I25.10 Atherosclerotic heart disease of native coronary artery without angina pectoris; I48.1 Persistent atrial fibrillation; I25.2 Old myocardial infarction; K21.9 Gastro-esophageal reflux disease without esophagitis; J44.9 Chronic obstructive pulmonary disease, unspecified; G89.29 Other chronic pain; M54.9 Dorsalgia, unspecified; M19.072 Primary osteoarthritis, left ankle and foot; F31.9 Bipolar disorder, unspecified; E78.00 Pure hypercholesterolemia, unspecified; E78.5 Hyperlipidemia, unspecified; E03.9 Hypothyroidism, unspecified; E11.40 Type 2 diabetes mellitus with diabetic neuropathy, unspecified; E11.319 Type 2 diabetes mellitus with unspecified diabetic retinopathy without macular edema; Z95.1 Presence of aortocoronary bypass graft; Z79.899 Other long term (current) drug therapy; Z85.038 Personal history of other malignant neoplasm of large intestine; Z95.5 Presence of coronary angioplasty implant and graft; Z79.01 Long term (current) use of anticoagulants; Z86.73 Personal history of transient ischemic attack (TIA), and cerebral infarction without residual deficits; Z90.89 Acquired absence of other organs; Z95.810 Presence of automatic (implantable) cardiac defibrillator
CPT/HCPCS: 96365; 96366; G0463; J1250; J1642

== ENCOUNTER → 2019-02-22 | Outpatient (CLI) | payer OTHER ==
[2019-02-22] VITALS (9 sets, daily range): BP systolic 99–128; BP diastolic 53–78
[~2019-02-22] VITALS: Ht 30.5 cm; Wt 90.3 kg
[~2019-02-22] MED LIST changes: +CYANOCOBALAMIN (B-12) 1000 MCG/1 ML VIAL IM ONE; +CYANOCOBALAMIN (B-12) 1000 MCG/1 ML VIAL ONE
--- NOTE | 2019-02-22 07:30 | NUR ---
CHF PATIENT IN CHF CLINIC FOR DOBUTAMINE INFUSION THERAPY. VSS.
--- NOTE | 2019-02-22 07:45 | NUR ---
Clinic Provider Clinic Provider into see pt with new orders received and carried out. Dobutamine gtt started at 5 mcg/kg/hr per MD order.
--- NOTE | 2019-02-22 10:51 | NUR ---
CHF TREATMENT COMPLETED. TOLERATED WELL. AFFECT CHEERFUL AND COOPERATIVE. WITHOUT DISTRESS OR DISCOMFORT. Ayah Cath Removal Quinones needle D/C'd after Heparin flush per protocol. See e-MAR for medications given during this visit. Sterile occlusive dressing to site. Patient tolerated procedure well. Site benign post infusion. Discharge Instructions See e-MAR for any mediations given with this visit. Patient education given on disease process. Patient verbalized understanding. Previous labs reviewed. Patient discharged in stable condition with after care instructions and follow up appointment FOR 02/25/19 MEDICATION ADMINISTRATION DOBUTAMINE GTT AT 5 MCG/KG/MIN START AT 0745/STOP AT 1047 (27.27 ML/HR) VIT B123 1000 MCG IM TO RIGHT DELTOID AT 0949 HEPARIN 500 UNITS IVP TO RIGHT CHEST PORT AT 1049
== END | disposition home or self-care (01) ==
LOC: CHF HDHVI 07:54
PROVIDERS: ATTEND Internal Medicine Cardiovascular Disease
DX: I13.2 Hypertensive heart and chronic kidney disease with heart failure and with stage 5 chronic kidney disease, or end stage renal disease (principal); E11.22 Type 2 diabetes mellitus with diabetic chronic kidney disease; I50.22 Chronic systolic (congestive) heart failure; N18.6 End stage renal disease; R53.83 Other fatigue; I25.10 Atherosclerotic heart disease of native coronary artery without angina pectoris; I48.1 Persistent atrial fibrillation; I25.2 Old myocardial infarction; J44.9 Chronic obstructive pulmonary disease, unspecified; K21.9 Gastro-esophageal reflux disease without esophagitis; E78.5 Hyperlipidemia, unspecified; F31.9 Bipolar disorder, unspecified; G89.29 Other chronic pain; M19.072 Primary osteoarthritis, left ankle and foot; E78.00 Pure hypercholesterolemia, unspecified; E11.319 Type 2 diabetes mellitus with unspecified diabetic retinopathy without macular edema; Z87.891 Personal history of nicotine dependence; Z90.89 Acquired absence of other organs; Z79.01 Long term (current) use of anticoagulants; Z85.038 Personal history of other malignant neoplasm of large intestine; Z95.810 Presence of automatic (implantable) cardiac defibrillator; Z86.73 Personal history of transient ischemic attack (TIA), and cerebral infarction without residual deficits; Z79.899 Other long term (current) drug therapy; Z95.5 Presence of coronary angioplasty implant and graft
CPT/HCPCS: 96365; 96366; 96372; G0463; J1250; J1642; J3420

== ENCOUNTER → 2019-02-25 | Outpatient (CLI) | payer OTHER ==
[2019-02-25] VITALS (11 sets, daily range): BP systolic 109–159; BP diastolic 57–83
[~2019-02-25] MED LIST changes: -CYANOCOBALAMIN (B-12) 1000 MCG/1 ML VIAL IM ONE; -CYANOCOBALAMIN (B-12) 1000 MCG/1 ML VIAL ONE
--- NOTE | 2019-02-25 07:30 | NUR ---
PT. TO CHF CLINIC FOR DOBUTAMINE INFUSION PER MD ORDER. PT. DID WELL OVER THE WEEKEND, FEELING BETTER, AND DOING BIKE WORK. NEW ORDERS RECEIVED AND CARRIED OUT. SEE NSG ASSESS.
--- NOTE | 2019-02-25 07:46 | NUR ---
Clinic Provider Clinic Provider into see pt with new orders received and carried out. Dobutamine gtt started at {5}mcg/kg/hr per MD order.
--- NOTE | 2019-02-25 11:06 | NUR ---
Port Needle Dressing Change Port Needle Dressing Change provided. See e-MAR for medications given during this visit. Line Heparinized. Vital signs stable. Pt tolerated procedure well.
--- NOTE | 2019-02-25 11:06 | NUR ---
Discharge Instructions See e-MAR for any mediations given with this visit. Patient education given on disease process. Patient verbalized understanding. Previous labs reviewed. Patient discharged in stable condition with after care instructions and follow up appointment. MEDICATIONS 0746 START TIME DOBUTAMINE DRIP 1050 STOP TIME DOBUTAMINE DRIP 1055 HEPARIN 500 UNITS IVP X 1
== END | disposition home or self-care (01) ==
LOC: CHF HDHVI 08:21
PROVIDERS: ATTEND Internal Medicine Cardiovascular Disease
DX: I13.2 Hypertensive heart and chronic kidney disease with heart failure and with stage 5 chronic kidney disease, or end stage renal disease (principal); I50.9 Heart failure, unspecified; I50.84 End stage heart failure; N18.6 End stage renal disease; I25.10 Atherosclerotic heart disease of native coronary artery without angina pectoris; F31.9 Bipolar disorder, unspecified; J44.9 Chronic obstructive pulmonary disease, unspecified; I50.22 Chronic systolic (congestive) heart failure; K21.9 Gastro-esophageal reflux disease without esophagitis; E78.5 Hyperlipidemia, unspecified; I25.2 Old myocardial infarction; E11.319 Type 2 diabetes mellitus with unspecified diabetic retinopathy without macular edema; E11.40 Type 2 diabetes mellitus with diabetic neuropathy, unspecified; E11.41 Type 2 diabetes mellitus with diabetic mononeuropathy; E11.22 Type 2 diabetes mellitus with diabetic chronic kidney disease; E03.9 Hypothyroidism, unspecified; Z95.1 Presence of aortocoronary bypass graft; Z79.01 Long term (current) use of anticoagulants; Z79.899 Other long term (current) drug therapy; Z85.038 Personal history of other malignant neoplasm of large intestine; Z87.891 Personal history of nicotine dependence; Z95.810 Presence of automatic (implantable) cardiac defibrillator; Z86.73 Personal history of transient ischemic attack (TIA), and cerebral infarction without residual deficits
CPT/HCPCS: 96365; 96366; G0463; J1250; J1642

== ENCOUNTER → 2019-02-27 | Outpatient (CLI) | payer OTHER ==
[2019-02-27] VITALS (10 sets, daily range): BP systolic 97–124; BP diastolic 53–73
--- NOTE | 2019-02-27 10:52 | NUR ---
CHF CLINIC Discharge Instructions See e-MAR for any mediations given with this visit. Patient education given on disease process. Patient verbalized understanding. Previous labs reviewed. Patient discharged in stable condition with after care instructions and follow up appointment. NOTE DOBUTAMINE INFUSION [id number] ADMIN BY GISELA ALVAREZ HEPARIN ADMIN BY ISAC ALVAREZ
== END | disposition home or self-care (01) ==
LOC: CHF HDHVI 07:49
PROVIDERS: ATTEND Internal Medicine Cardiovascular Disease
DX: I13.2 Hypertensive heart and chronic kidney disease with heart failure and with stage 5 chronic kidney disease, or end stage renal disease (principal); E11.22 Type 2 diabetes mellitus with diabetic chronic kidney disease; E11.41 Type 2 diabetes mellitus with diabetic mononeuropathy; E11.319 Type 2 diabetes mellitus with unspecified diabetic retinopathy without macular edema; N18.6 End stage renal disease; I50.22 Chronic systolic (congestive) heart failure; I50.84 End stage heart failure; M10.9 Gout, unspecified; I25.10 Atherosclerotic heart disease of native coronary artery without angina pectoris; F31.9 Bipolar disorder, unspecified; J44.9 Chronic obstructive pulmonary disease, unspecified; K21.9 Gastro-esophageal reflux disease without esophagitis; E78.5 Hyperlipidemia, unspecified; E03.9 Hypothyroidism, unspecified; I25.2 Old myocardial infarction; G89.29 Other chronic pain; I48.1 Persistent atrial fibrillation; M19.072 Primary osteoarthritis, left ankle and foot; E78.00 Pure hypercholesterolemia, unspecified; Z85.038 Personal history of other malignant neoplasm of large intestine; Z79.01 Long term (current) use of anticoagulants; Z95.5 Presence of coronary angioplasty implant and graft; Z79.899 Other long term (current) drug therapy; Z87.891 Personal history of nicotine dependence; Z95.1 Presence of aortocoronary bypass graft; Z95.810 Presence of automatic (implantable) cardiac defibrillator; Z86.73 Personal history of transient ischemic attack (TIA), and cerebral infarction without residual deficits; Z90.89 Acquired absence of other organs
CPT/HCPCS: 96365; 96366; G0463; J1250; J1642

== ENCOUNTER → 2019-03-01 | Outpatient (CLI) | payer OTHER ==
[2019-03-01] VITALS (9 sets, daily range): BP systolic 106–126; BP diastolic 58–71
== END | disposition home or self-care (01) ==
LOC: CHF HDHVI 07:35
PROVIDERS: ATTEND Internal Medicine Cardiovascular Disease
DX: I13.2 Hypertensive heart and chronic kidney disease with heart failure and with stage 5 chronic kidney disease, or end stage renal disease (principal); E11.22 Type 2 diabetes mellitus with diabetic chronic kidney disease; E11.41 Type 2 diabetes mellitus with diabetic mononeuropathy; E11.319 Type 2 diabetes mellitus with unspecified diabetic retinopathy without macular edema; N18.6 End stage renal disease; I50.22 Chronic systolic (congestive) heart failure; I50.84 End stage heart failure; I42.8 Other cardiomyopathies; I25.10 Atherosclerotic heart disease of native coronary artery without angina pectoris; F31.9 Bipolar disorder, unspecified; J44.9 Chronic obstructive pulmonary disease, unspecified; K21.9 Gastro-esophageal reflux disease without esophagitis; E78.5 Hyperlipidemia, unspecified; E03.9 Hypothyroidism, unspecified; I25.2 Old myocardial infarction; G89.29 Other chronic pain; I48.1 Persistent atrial fibrillation; I48.0 Paroxysmal atrial fibrillation; M19.072 Primary osteoarthritis, left ankle and foot; E78.00 Pure hypercholesterolemia, unspecified; M19.90 Unspecified osteoarthritis, unspecified site; Z90.89 Acquired absence of other organs; Z86.73 Personal history of transient ischemic attack (TIA), and cerebral infarction without residual deficits; Z79.899 Other long term (current) drug therapy; Z79.01 Long term (current) use of anticoagulants; Z87.891 Personal history of nicotine dependence; Z95.1 Presence of aortocoronary bypass graft; Z85.038 Personal history of other malignant neoplasm of large intestine; Z95.810 Presence of automatic (implantable) cardiac defibrillator; Z95.5 Presence of coronary angioplasty implant and graft
CPT/HCPCS: 96365; 96366; G0463; J1250; J1642

== ENCOUNTER → 2019-03-04 | Outpatient (CLI) | payer OTHER ==
[2019-03-04] VITALS (9 sets, daily range): BP systolic 97–107; BP diastolic 51–59
--- NOTE | 2019-03-04 07:30 | NUR ---
PT. TO CHF CLINIC FOR DOBUTAMINE THERAPY PER DR. ENGLISH. PT. WITH C/O LEFT GREATER TOE PAIN OVER THE WEEKEND WITH NO SPECIFIC MECH. OF INJURY. ORDERS RECEIVED AND CARRIED OUT. SEE NSG ASSESS.
--- NOTE | 2019-03-04 07:47 | NUR ---
Clinic Provider Clinic Provider into see pt with new orders received and carried out. Dobutamine gtt started at {5}mcg/kg/hr per MD order.
[2019-03-04] MEDS: DOBUTamine 1000MCG/ML 250 ML IV SCH ×2 (10:11→11:11)
--- NOTE | 2019-03-04 10:55 | NUR ---
Discharge Instructions See e-MAR for any mediations given with this visit. Patient education given on disease process. Patient verbalized understanding. Previous labs reviewed. Patient discharged in stable condition with after care instructions and follow up appointment. MEDICATIONS 0747 START TIME DOBUTAMINE DRIP 1048 STOP TIME DOBUTAMINE DRIP 1050 HEPARIN 500 UNITS IV X 1
[2019-03-04 12:43] LABS: Basophils # (auto) 0.1 uL; Basophils % (auto) 1.8 % (0.0-2.0); Eosinophils # (auto) 0.4 uL; Eosinophils % (auto) 11.3 % (0.0-7.0); Hematocrit 42.7 % (41.0-53.0); Hemoglobin 14.4 g/dL (13.5-17.5); Lymphocytes # (auto) 1.1 uL; Mean Corpuscular Hemoglobin 32.9 pg (28.0-32.0); Mean Corpuscular Hgb Conc. 33.6 g/dL (32.0-36.0); Monocytes # (auto) 0.5 uL; Monocytes % (auto) 14.6 % (0.0-12.0); Neutrophils # (auto) 1.6 uL; Neutrophils % (auto) 42.3 % (37.0-80.0); Nucleated Red Blood Cells % 0.6 %; Platelet Count (auto) 156 10^3/uL (140-450); Red Blood Cells 4.36 10^6/uL (4.5-5.90); Red Cell Distribution Width 12.8 % (11.8-14.3); White Blood Cell 3.7 10^3/uL (4.4-10.8)
[2019-03-04 13:42] LABS: Potassium 4.2 mmol/L (3.5-5.1)
[2019-03-04 13:47] LABS: BUN/Creatinine Ratio 14.9; Uric Acid 5.6 mg/dL (3.5-7.2)
== END | disposition home or self-care (01) ==
LOC: CHF HDHVI 08:02
PROVIDERS: ATTEND Internal Medicine Cardiovascular Disease
DX: I13.2 Hypertensive heart and chronic kidney disease with heart failure and with stage 5 chronic kidney disease, or end stage renal disease (principal); E11.22 Type 2 diabetes mellitus with diabetic chronic kidney disease; I50.23 Acute on chronic systolic (congestive) heart failure; N18.6 End stage renal disease; M10.9 Gout, unspecified; I42.8 Other cardiomyopathies; D64.9 Anemia, unspecified; I48.1 Persistent atrial fibrillation; I25.10 Atherosclerotic heart disease of native coronary artery without angina pectoris; I25.2 Old myocardial infarction; F31.9 Bipolar disorder, unspecified; K21.9 Gastro-esophageal reflux disease without esophagitis; E78.5 Hyperlipidemia, unspecified; E03.9 Hypothyroidism, unspecified; G89.29 Other chronic pain; M19.072 Primary osteoarthritis, left ankle and foot; E78.00 Pure hypercholesterolemia, unspecified; E11.41 Type 2 diabetes mellitus with diabetic mononeuropathy; E11.319 Type 2 diabetes mellitus with unspecified diabetic retinopathy without macular edema; Z90.89 Acquired absence of other organs; Z79.01 Long term (current) use of anticoagulants; Z79.899 Other long term (current) drug therapy; Z85.038 Personal history of other malignant neoplasm of large intestine; Z87.891 Personal history of nicotine dependence; Z95.1 Presence of aortocoronary bypass graft; Z86.73 Personal history of transient ischemic attack (TIA), and cerebral infarction without residual deficits; Z95.810 Presence of automatic (implantable) cardiac defibrillator; Z95.5 Presence of coronary angioplasty implant and graft
CPT/HCPCS: 36415; 80048; 83880; 84550; 85025; 96365; 96366; G0463; J1250; J1642

== ENCOUNTER → 2019-03-06 | Outpatient (CLI) | payer OTHER ==
[2019-03-06] VITALS (7 sets, daily range): BP systolic 91–102; BP diastolic 46–66
--- NOTE | 2019-03-06 10:51 | NUR ---
CHF CLINIC Discharge Instructions See e-MAR for any mediations given with this visit. Patient education given on disease process. Patient verbalized understanding. Previous labs reviewed. Patient discharged in stable condition with after care instructions and follow up appointment ON MONDAY. NOTE DOBUTAMINE [id number] ADMIN BY ISAC ALVAREZ HEPARIN ADMIN BY VÍCTOR ALVAREZ
== END | disposition home or self-care (01) ==
LOC: CHF HDHVI 08:07
PROVIDERS: ATTEND Internal Medicine Cardiovascular Disease
DX: I13.2 Hypertensive heart and chronic kidney disease with heart failure and with stage 5 chronic kidney disease, or end stage renal disease (principal); E11.22 Type 2 diabetes mellitus with diabetic chronic kidney disease; I50.22 Chronic systolic (congestive) heart failure; N18.6 End stage renal disease; I48.1 Persistent atrial fibrillation; G89.29 Other chronic pain; M54.9 Dorsalgia, unspecified; J44.9 Chronic obstructive pulmonary disease, unspecified; I25.10 Atherosclerotic heart disease of native coronary artery without angina pectoris; I25.2 Old myocardial infarction; M19.072 Primary osteoarthritis, left ankle and foot; M10.9 Gout, unspecified; K21.9 Gastro-esophageal reflux disease without esophagitis; E78.5 Hyperlipidemia, unspecified; E03.9 Hypothyroidism, unspecified; E78.00 Pure hypercholesterolemia, unspecified; F31.9 Bipolar disorder, unspecified; E11.41 Type 2 diabetes mellitus with diabetic mononeuropathy; E11.319 Type 2 diabetes mellitus with unspecified diabetic retinopathy without macular edema; Z90.89 Acquired absence of other organs; Z79.899 Other long term (current) drug therapy; Z79.01 Long term (current) use of anticoagulants; Z85.038 Personal history of other malignant neoplasm of large intestine; Z87.891 Personal history of nicotine dependence; Z95.1 Presence of aortocoronary bypass graft; Z95.810 Presence of automatic (implantable) cardiac defibrillator; Z95.5 Presence of coronary angioplasty implant and graft; Z86.73 Personal history of transient ischemic attack (TIA), and cerebral infarction without residual deficits
CPT/HCPCS: 96365; 96366; G0463; J1250; J1642

== ENCOUNTER → 2019-03-08 | Outpatient (CLI) | payer OTHER ==
[2019-03-08] VITALS (8 sets, daily range): BP systolic 92–117; BP diastolic 51–63
--- NOTE | 2019-03-08 10:50 | NUR ---
IN TO CLINIC FOR SCHEDULED INFUSION. ALERT AND WITHOUT DISTRESS. VS WNL. Ayah Cath Insertion 20 gauge Ayah Cath inserted using sterile technique in the [RIGHT) upper chest with occlusive dressing over saucedo needle. Patient tolerated procedure well. Ordered labs drawn and sent. See e-MAR for medications given during this visit. Clinic Provider Clinic Provider into see pt with new orders received and carried out. Dobutamine gtt started at {5}mcg/kg/hr per MD order. SEE FREQUENT VITAL SIGNS. ALL WNL. PT REMAINED AWAKE AND ALERT THROUGHOUT DURATION OF INFUSION. Discharge Instructions See e-MAR for any mediations given with this visit. Patient education given on disease process. Patient verbalized understanding. Previous labs reviewed. Patient discharged in stable condition with after care instructions and follow up appointment FOR Monday03/11/19 MEDICATION ADMINISTRATION DOBUTAMINE GTT AT 5 MCG/KG/MIN START AT 0746/STOP AT 1045 (27.27 ML HR) HEPARIN 500 UNITS IVP AT 1047
== END | disposition home or self-care (01) ==
LOC: CHF HDHVI 07:52
PROVIDERS: ATTEND Internal Medicine Cardiovascular Disease
DX: I13.2 Hypertensive heart and chronic kidney disease with heart failure and with stage 5 chronic kidney disease, or end stage renal disease (principal); E11.22 Type 2 diabetes mellitus with diabetic chronic kidney disease; I50.22 Chronic systolic (congestive) heart failure; N18.6 End stage renal disease; I25.10 Atherosclerotic heart disease of native coronary artery without angina pectoris; I25.2 Old myocardial infarction; I48.1 Persistent atrial fibrillation; J44.9 Chronic obstructive pulmonary disease, unspecified; E11.319 Type 2 diabetes mellitus with unspecified diabetic retinopathy without macular edema; F31.9 Bipolar disorder, unspecified; K21.9 Gastro-esophageal reflux disease without esophagitis; M19.072 Primary osteoarthritis, left ankle and foot; G89.29 Other chronic pain; M10.9 Gout, unspecified; E78.5 Hyperlipidemia, unspecified; E03.9 Hypothyroidism, unspecified; E78.00 Pure hypercholesterolemia, unspecified; Z79.01 Long term (current) use of anticoagulants; Z79.899 Other long term (current) drug therapy; Z85.038 Personal history of other malignant neoplasm of large intestine; Z87.891 Personal history of nicotine dependence; Z90.89 Acquired absence of other organs; Z95.1 Presence of aortocoronary bypass graft; Z86.73 Personal history of transient ischemic attack (TIA), and cerebral infarction without residual deficits; Z95.810 Presence of automatic (implantable) cardiac defibrillator; Z95.5 Presence of coronary angioplasty implant and graft
CPT/HCPCS: 96365; 96366; G0463; J1250; J1642

== ENCOUNTER → 2019-03-11 | Outpatient (CLI) | payer OTHER ==
[2019-03-11] VITALS (10 sets, daily range): BP systolic 97–113; BP diastolic 49–63
--- NOTE | 2019-03-11 07:30 | NUR ---
PT. TO CHF CLINIC FOR DOBUTAMINE INFUSION PER DR. ENGLISH. PT. PRESENTS WITH INITIAL BP OF 87/41, WHICH IS LOW FOR THIS PT. WHO STATES HE FEELS HE IS PACING ALL OF THE TIME AND FEELING A LITTLE MORE TIRED THIS AM. ADDITIONAL ORDERS RECEIVED FROM FOR .9NS WITH DOBUTREX INFUSION. SEE NSG ASSESS.
[2019-03-11] MEDS: SODIUM CHLORIDE 0.9% 250 ML IV SCH ×3 (07:40→08:30)
--- NOTE | 2019-03-11 07:40 | NUR ---
.9NS BOLUS STARTED AT 500CC/HR FOR B/P 87/40. PT. AOX4, PWD, WITH NO OTHER C/O.
--- NOTE | 2019-03-11 07:49 | NUR ---
MEDS: DOBUTAMINE DRIP STARTED AT 5 MCG/KG/MIN.
--- NOTE | 2019-03-11 08:00 | NUR ---
MEDS: .9NS DC'D AT THIS TIME WITH 125 CC INFUSED. B/P 101/61,70, 16, 98% RA
--- NOTE | 2019-03-11 08:30 | NUR ---
COMFORT: PT. WITH NO C/O. VSS, 102/57, 70
--- NOTE | 2019-03-11 10:50 | NUR ---
Discharge Instructions See e-MAR for any mediations given with this visit. Patient education given on disease process. Patient verbalized understanding. Previous labs reviewed. Patient discharged in stable condition with after care instructions and follow up appointment. MEDICATIONS START TIME 0749 DOBUTAMINE DRIP 5MCG/KG.MIN STOP TIME 1048 DOBUATMINE DRIP
== END | disposition home or self-care (01) ==
LOC: CHF HDHVI 07:54
PROVIDERS: ATTEND Internal Medicine Cardiovascular Disease
DX: I13.2 Hypertensive heart and chronic kidney disease with heart failure and with stage 5 chronic kidney disease, or end stage renal disease (principal); E11.22 Type 2 diabetes mellitus with diabetic chronic kidney disease; N18.6 End stage renal disease; I50.22 Chronic systolic (congestive) heart failure; I25.10 Atherosclerotic heart disease of native coronary artery without angina pectoris; I42.8 Other cardiomyopathies; I70.0 Atherosclerosis of aorta; J44.9 Chronic obstructive pulmonary disease, unspecified; K21.9 Gastro-esophageal reflux disease without esophagitis; E78.5 Hyperlipidemia, unspecified; E03.9 Hypothyroidism, unspecified; I25.2 Old myocardial infarction; G89.29 Other chronic pain; I48.0 Paroxysmal atrial fibrillation; M19.072 Primary osteoarthritis, left ankle and foot; E78.00 Pure hypercholesterolemia, unspecified; E11.319 Type 2 diabetes mellitus with unspecified diabetic retinopathy without macular edema; E11.41 Type 2 diabetes mellitus with diabetic mononeuropathy; F31.9 Bipolar disorder, unspecified; Z79.01 Long term (current) use of anticoagulants; Z85.038 Personal history of other malignant neoplasm of large intestine; Z79.899 Other long term (current) drug therapy; Z87.891 Personal history of nicotine dependence; Z95.810 Presence of automatic (implantable) cardiac defibrillator; Z95.1 Presence of aortocoronary bypass graft; Z95.5 Presence of coronary angioplasty implant and graft; Z86.73 Personal history of transient ischemic attack (TIA), and cerebral infarction without residual deficits
CPT/HCPCS: 96365; 96366; G0463; J1250; J1642; J7050

== ENCOUNTER → 2019-03-13 | Outpatient (CLI) | payer OTHER ==
[2019-03-13] VITALS (10 sets, daily range): BP systolic 92–115; BP diastolic 49–80
--- NOTE | 2019-03-13 07:30 | NUR ---
CHF Ayah Cath Insertion 20 gauge Ayah Cath inserted using sterile technique in the upper chest with occlusive dressing over saucedo needle. Patient tolerated procedure well. Ordered labs drawn and sent. See e-MAR for medications given during this visit. Clinic Provider Clinic Provider into see pt with new orders received and carried out. Dobutamine gtt started at {5}mcg/kg/hr per MD order.
--- NOTE | 2019-03-13 10:55 | NUR ---
Discharge Instructions See e-MAR for any mediations given with this visit. Patient education given on disease process. Patient verbalized understanding. Previous labs reviewed. Patient discharged in stable condition with after care instructions and follow up appointment. MEDICATIONS 0747 START TIME DOBUTAMINE DRIP 1048 STOP TIME DOBUTAMINE DRIP 1048 HEPARIN 500 UNITS IVP X 1 TO LORRI CATH
== END | disposition home or self-care (01) ==
LOC: CHF HDHVI 07:57
PROVIDERS: ATTEND Internal Medicine Cardiovascular Disease
DX: I13.2 Hypertensive heart and chronic kidney disease with heart failure and with stage 5 chronic kidney disease, or end stage renal disease (principal); E11.22 Type 2 diabetes mellitus with diabetic chronic kidney disease; I50.22 Chronic systolic (congestive) heart failure; N18.6 End stage renal disease; I48.0 Paroxysmal atrial fibrillation; I25.2 Old myocardial infarction; E78.5 Hyperlipidemia, unspecified; E03.9 Hypothyroidism, unspecified; K21.9 Gastro-esophageal reflux disease without esophagitis; J44.9 Chronic obstructive pulmonary disease, unspecified; E11.41 Type 2 diabetes mellitus with diabetic mononeuropathy; E11.319 Type 2 diabetes mellitus with unspecified diabetic retinopathy without macular edema; F31.9 Bipolar disorder, unspecified; G89.29 Other chronic pain; E78.00 Pure hypercholesterolemia, unspecified; M19.072 Primary osteoarthritis, left ankle and foot; M10.9 Gout, unspecified; Z79.01 Long term (current) use of anticoagulants; Z79.899 Other long term (current) drug therapy; Z85.038 Personal history of other malignant neoplasm of large intestine; Z87.891 Personal history of nicotine dependence; Z95.1 Presence of aortocoronary bypass graft; Z95.810 Presence of automatic (implantable) cardiac defibrillator; Z95.5 Presence of coronary angioplasty implant and graft; Z90.89 Acquired absence of other organs; Z86.73 Personal history of transient ischemic attack (TIA), and cerebral infarction without residual deficits
CPT/HCPCS: 82962; 96365; 96366; G0463; J1250; J1642

== ENCOUNTER → 2019-03-15 | Outpatient (CLI) | payer OTHER ==
[2019-03-15] VITALS (10 sets, daily range): BP systolic 93–117; BP diastolic 47–66
--- NOTE | 2019-03-15 07:30 | NUR ---
PT. TO CHF CLINIC FOR DOBUTAMINE INFUSION PER DR. ENGLISH. ORDERS RECEIVED AND CARRIED OUT. PT. WT STABLE, AND PT. FEELING BETTER SINCE LAST TX. SEE NSG ASSESS.
--- NOTE | 2019-03-15 07:40 | NUR ---
Ayah Cath Insertion 20 gauge Ayah Cath inserted using sterile technique in the upper chest with occlusive dressing over sauceod needle. Patient tolerated procedure well. See e-MAR for medications given during this visit.
--- NOTE | 2019-03-15 07:50 | NUR ---
Clinic Provider Clinic Provider into see pt with new orders received and carried out. Dobutamine gtt started at {5}mcg/kg/hr per MD order.
--- NOTE | 2019-03-15 11:17 | NUR ---
CHF CLINIC Discharge Instructions See e-MAR for any mediations given with this visit. Patient education given on disease process. Patient verbalized understanding. Previous labs reviewed. Patient discharged in stable condition with after care instructions and follow up appointment. NOTE DOBUTAMINE INFUSION [id number] ADMIN BY GISELA ALVAREZ HEPARIN ADMIN BY MACY ALVAREZ
== END | disposition home or self-care (01) ==
LOC: CHF HDHVI 07:35
PROVIDERS: ATTEND Internal Medicine Cardiovascular Disease
DX: I25.10 Atherosclerotic heart disease of native coronary artery without angina pectoris (principal); I42.8 Other cardiomyopathies; I13.2 Hypertensive heart and chronic kidney disease with heart failure and with stage 5 chronic kidney disease, or end stage renal disease; E11.22 Type 2 diabetes mellitus with diabetic chronic kidney disease; N18.6 End stage renal disease; I50.22 Chronic systolic (congestive) heart failure; I25.2 Old myocardial infarction; I70.0 Atherosclerosis of aorta; I48.1 Persistent atrial fibrillation; J44.9 Chronic obstructive pulmonary disease, unspecified; K21.9 Gastro-esophageal reflux disease without esophagitis; E78.5 Hyperlipidemia, unspecified; E03.9 Hypothyroidism, unspecified; E78.00 Pure hypercholesterolemia, unspecified; E11.41 Type 2 diabetes mellitus with diabetic mononeuropathy; E11.319 Type 2 diabetes mellitus with unspecified diabetic retinopathy without macular edema; M19.072 Primary osteoarthritis, left ankle and foot; G89.29 Other chronic pain; F31.9 Bipolar disorder, unspecified; Z86.73 Personal history of transient ischemic attack (TIA), and cerebral infarction without residual deficits; Z79.899 Other long term (current) drug therapy; Z87.891 Personal history of nicotine dependence; Z85.038 Personal history of other malignant neoplasm of large intestine; Z95.1 Presence of aortocoronary bypass graft; Z79.01 Long term (current) use of anticoagulants; Z95.5 Presence of coronary angioplasty implant and graft
CPT/HCPCS: 96365; 96366; G0463; J1250; J1642

== ENCOUNTER → 2019-03-18 | Outpatient (CLI) | payer OTHER ==
[2019-03-18] VITALS (9 sets, daily range): BP systolic 94–115; BP diastolic 46–67
--- NOTE | 2019-03-18 07:30 | NUR ---
PT. TO CHF CLINIC FOR DOBUTAMINE INFUSION PER DR. ENGLISH. PT. HAD GOOD WEEKEND OF ACTIVITY. ORDERS RECEIVED AND CARRIED OUT. SEE NSG ASSESS.
--- NOTE | 2019-03-18 07:44 | NUR ---
Clinic Provider Clinic Provider into see pt with new orders received and carried out. Dobutamine gtt started at {5}mcg/kg/hr per MD order.
--- NOTE | 2019-03-18 09:00 | NUR ---
DOBUTAMINE INFUSION ONGOING AT 5 MCG/KG/MIN. TOLERATING WELL. VS WNL. VISITING WITH OTHER PATIENTS.
--- NOTE | 2019-03-18 10:40 | NUR ---
INFUSION COMPLETED. TOLERATED WELL.
--- NOTE | 2019-03-18 10:45 | NUR ---
CHF Ayah Cath Removal Quinones needle D/C'd after Heparin flush per protocol. See e-MAR for medications given during this visit. Sterile occlusive dressing to site. Patient tolerated procedure well. Site benign post infusion. Discharge Instructions See e-MAR for any mediations given with this visit. Patient education given on disease process. Patient verbalized understanding. Previous labs reviewed. Patient discharged in stable condition with after care instructions and follow up appointment FOR 03/20/19 MEDICATION ADMINISTRATION DOBUTAMINE GTT AT 5 MCG/KG/MIN 27.27 ML/HR START AT 0744/STOP AT 1040 HEPARIN 500 UNITS IVP AT 1040
== END | disposition home or self-care (01) ==
LOC: CHF HDHVI 07:52
PROVIDERS: ATTEND Internal Medicine Cardiovascular Disease
DX: I13.2 Hypertensive heart and chronic kidney disease with heart failure and with stage 5 chronic kidney disease, or end stage renal disease (principal); I50.84 End stage heart failure; I50.22 Chronic systolic (congestive) heart failure; N18.6 End stage renal disease; J44.9 Chronic obstructive pulmonary disease, unspecified; F31.9 Bipolar disorder, unspecified; K21.9 Gastro-esophageal reflux disease without esophagitis; E78.5 Hyperlipidemia, unspecified; E03.9 Hypothyroidism, unspecified; I25.2 Old myocardial infarction; G89.29 Other chronic pain; M19.072 Primary osteoarthritis, left ankle and foot; E78.00 Pure hypercholesterolemia, unspecified; E11.22 Type 2 diabetes mellitus with diabetic chronic kidney disease; E11.40 Type 2 diabetes mellitus with diabetic neuropathy, unspecified; E11.319 Type 2 diabetes mellitus with unspecified diabetic retinopathy without macular edema; E11.41 Type 2 diabetes mellitus with diabetic mononeuropathy; Z79.01 Long term (current) use of anticoagulants; Z79.899 Other long term (current) drug therapy; Z85.038 Personal history of other malignant neoplasm of large intestine; Z87.891 Personal history of nicotine dependence; Z95.1 Presence of aortocoronary bypass graft; Z95.810 Presence of automatic (implantable) cardiac defibrillator; Z86.73 Personal history of transient ischemic attack (TIA), and cerebral infarction without residual deficits
CPT/HCPCS: 96365; 96366; G0463; J1250; J1642

== ENCOUNTER → 2019-03-20 | Outpatient (CLI) | payer OTHER ==
[~2019-03-20] VITALS: Ht 30.5 cm; Wt 89.4 kg
[~2019-03-20] MED LIST changes: +CHOLESTYRAMINE 4 GM POWDER ONE; +CHOLESTYRAMINE 4 GM POWDER PO ONE; -DOBUTamine 1000MCG/ML 250 ML IV ONE; +MVI in SODIUM CHLORIDE 0.9% 1,010 ML ONE; +MVI in SODIUM CHLORIDE 0.9% 500 ML IVB ONE; +ONDANSETRON HCL 4 MG/2 ML VIAL IV ONE; +ONDANSETRON HCL 4 MG/2 ML VIAL ONE
--- NOTE | 2019-03-20 07:35 | NUR ---
REPORTS FEELING POORLY. REPORTS DIARRHEA AND NAUSEA WITH ACCOMPANYING LOSS OF WEIGHT SINCE LAST VISIT 2 DAYS AGO. BP BORDERLINE LOW FOR PTS NORMAL. CLINIC PROVIDER CONSULTED. ORDERS RECIEVED.
--- NOTE | 2019-03-20 07:58 | NUR ---
Ayah Cath Insertion 20 gauge Ayah Cath inserted using sterile technique in the upper chest with occlusive dressing over saucedo needle. Patient tolerated procedure well. Ordered labs drawn and sent. See e-MAR for medications given during this visit. MEDICATE WITH ZOFRAN FOR ONGOING NAUSEA. START MVI AT 250 ML/HR .
[2019-03-20 08:28] LABS: Hemoglobin 14.5 g/dL (13.5-17.5); Mean Corpuscular Hgb Conc. 33.8 g/dL (32.0-36.0); Mean Corpuscular Volume 97.8 fL (80.0-100.0); Platelet Count (auto) 139 10^3/uL (140-450); White Blood Cell 3.6 10^3/uL (4.4-10.8)
[2019-03-20 08:37] LABS: BUN/Creatinine Ratio 12.9; Calcium 7.9 mg/dL (8.5-10.1); Magnesium 2.4 mg/dL (1.6-2.6); Potassium 3.9 mmol/L (3.5-5.1)
[2019-03-20 08:38] LABS: Band Neutrophils % (manual) 0; Basophils % (manual) 0 (0.0-2.0); Blast Cells 0; Metamyelocytes % 0; Myelocytes % 0; Promyelocytes % 0; Reactive Lymphocytes 0
[2019-03-20 09:06] LABS: Eosinophils % (manual) 9 (0-7); Lymphocytes % (manual) 23 (10.0-50.0); Monocytes % (manual) 14 (0-12)
--- NOTE | 2019-03-20 09:39 | NUR ---
PT REPORTS FEELING BACK TO NORMAL AND FEELING 'GOOD". SKIN STILL HAS PALLOR, BUT IMPROVED. MUCOUS MEMBRANES APPEAR IMPROVED, BUT RESIDUAL DRYNESS STILL NOTED BY LIPS STICKING TO TEETH. ONGOING MVI INFUSION. MEDICATED ALSO WITH QUESTRAN FOR DIARRHEA AND TOLERATED WELL. CONTINUE TO MONITOR.
[2019-03-20 10:19] VITALS: BP 109/61
--- NOTE | 2019-03-20 10:19 | NUR ---
Discharge Instructions See e-MAR for any mediations given with this visit. Patient education given on disease process. Patient verbalized understanding. Previous labs reviewed. Patient discharged in stable condition with after care instructions and follow up appointment. MEDICATIONS 0755 ZOFRAN 4MG IVP X 1 0758 START TIME MVI BAG 1015 STOP TIME MVI BAG 0915 QUESTRAN 4GRAM PO X 1 1016 HEPARIN 500 UNITS IVP X 1 TO LORRI CATH
== END | disposition home or self-care (01) ==
LOC: CHF HDHVI 07:47
PROVIDERS: ATTEND Internal Medicine Cardiovascular Disease
DX: I13.2 Hypertensive heart and chronic kidney disease with heart failure and with stage 5 chronic kidney disease, or end stage renal disease (principal); N18.6 End stage renal disease; I50.23 Acute on chronic systolic (congestive) heart failure; I50.84 End stage heart failure; D64.9 Anemia, unspecified; E83.40 Disorders of magnesium metabolism, unspecified; R19.7 Diarrhea, unspecified; R53.83 Other fatigue; R53.1 Weakness; I25.10 Atherosclerotic heart disease of native coronary artery without angina pectoris; F31.9 Bipolar disorder, unspecified; J44.9 Chronic obstructive pulmonary disease, unspecified; K21.9 Gastro-esophageal reflux disease without esophagitis; E78.5 Hyperlipidemia, unspecified; E03.9 Hypothyroidism, unspecified; I25.2 Old myocardial infarction; G89.29 Other chronic pain; I48.1 Persistent atrial fibrillation; M19.072 Primary osteoarthritis, left ankle and foot; E78.00 Pure hypercholesterolemia, unspecified; E11.22 Type 2 diabetes mellitus with diabetic chronic kidney disease; E11.41 Type 2 diabetes mellitus with diabetic mononeuropathy; E11.51 Type 2 diabetes mellitus with diabetic peripheral angiopathy without gangrene; E11.319 Type 2 diabetes mellitus with unspecified diabetic retinopathy without macular edema; Z95.810 Presence of automatic (implantable) cardiac defibrillator; Z90.49 Acquired absence of other specified parts of digestive tract; Z79.01 Long term (current) use of anticoagulants; Z79.899 Other long term (current) drug therapy; Z85.038 Personal history of other malignant neoplasm of large intestine; Z87.891 Personal history of nicotine dependence; Z95.1 Presence of aortocoronary bypass graft; Z95.5 Presence of coronary angioplasty implant and graft; Z86.73 Personal history of transient ischemic attack (TIA), and cerebral infarction without residual deficits
CPT/HCPCS: 36415; 80048; 83735; 83880; 85007; 85027; 96365; 96366; 96375; G0463; J1642; J2405; J3411; J3475

== ENCOUNTER → 2019-03-21 | Outpatient (CLI) | payer OTHER ==
[~2019-03-21] VITALS: Ht 30.5 cm; Wt 89.4 kg
[2019-03-21] VITALS (8 sets, daily range): BP systolic 98–115; BP diastolic 54–66
[~2019-03-21] MED LIST changes: -CHOLESTYRAMINE 4 GM POWDER ONE; -CHOLESTYRAMINE 4 GM POWDER PO ONE; -ONDANSETRON HCL 4 MG/2 ML VIAL IV ONE; -ONDANSETRON HCL 4 MG/2 ML VIAL ONE
--- NOTE | 2019-03-21 10:25 | NUR ---
Ayah Cath Removal Quinones needle D/C'd by Ebony ALVAREZ after Heparin flush per protocol. See e-MAR for medications given during this visit. Sterile occlusive dressing to site. Patient tolerated procedure well. Site benign post infusion.
--- NOTE | 2019-03-21 10:27 | NUR ---
CHF CLINIC Discharge Instructions See e-MAR for any mediations given with this visit. Patient education given on disease process. Patient verbalized understanding. Previous labs reviewed. Patient discharged in stable condition with after care instructions and follow up appointment MONDAY. NOTE MVI IN NS [phone] ADMIN BY MACY ALVAREZ. HEPARIN ADMIN BY VÍCTOR ALVAREZ.
[2019-03-21 12:10] LABS: Hematocrit 41.8 % (41.0-53.0); Hemoglobin 13.9 g/dL (13.5-17.5); Mean Corpuscular Hemoglobin 32.6 pg (28.0-32.0); Mean Corpuscular Hgb Conc. 33.2 g/dL (32.0-36.0); Mean Corpuscular Volume 98.2 fL (80.0-100.0); Platelet Count (auto) 129 10^3/uL (140-450); Red Blood Cells 4.26 10^6/uL (4.5-5.90); Red Cell Distribution Width 13.3 % (11.8-14.3); White Blood Cell 3.6 10^3/uL (4.4-10.8)
[2019-03-21 12:54] LABS: Basophils % (manual) 0 (0.0-2.0); Blast Cells 0; Metamyelocytes % 0; Myelocytes % 0; Promyelocytes % 0; Reactive Lymphocytes 0
[2019-03-21 13:12] LABS: Potassium 4.6 mmol/L (3.5-5.1)
[2019-03-21 13:19] LABS: BUN/Creatinine Ratio 13.4; Magnesium 2.6 mg/dL (1.6-2.6)
[2019-03-21 13:52] LABS: Band Neutrophils % (manual) 2; Eosinophils % (manual) 7 (0-7); Lymphocytes % (manual) 21 (10.0-50.0); Monocytes % (manual) 17 (0-12)
== END | disposition home or self-care (01) ==
LOC: CHF HDHVI 07:34
PROVIDERS: ATTEND Internal Medicine Cardiovascular Disease
DX: I13.2 Hypertensive heart and chronic kidney disease with heart failure and with stage 5 chronic kidney disease, or end stage renal disease (principal); I50.23 Acute on chronic systolic (congestive) heart failure; N18.6 End stage renal disease; I50.84 End stage heart failure; D64.9 Anemia, unspecified; E83.40 Disorders of magnesium metabolism, unspecified; R53.83 Other fatigue; R19.7 Diarrhea, unspecified; R53.1 Weakness; I25.10 Atherosclerotic heart disease of native coronary artery without angina pectoris; J44.9 Chronic obstructive pulmonary disease, unspecified; K21.9 Gastro-esophageal reflux disease without esophagitis; E78.5 Hyperlipidemia, unspecified; E03.9 Hypothyroidism, unspecified; I25.2 Old myocardial infarction; G89.29 Other chronic pain; M19.072 Primary osteoarthritis, left ankle and foot; E78.00 Pure hypercholesterolemia, unspecified; E11.319 Type 2 diabetes mellitus with unspecified diabetic retinopathy without macular edema; E11.41 Type 2 diabetes mellitus with diabetic mononeuropathy; F31.9 Bipolar disorder, unspecified; E11.22 Type 2 diabetes mellitus with diabetic chronic kidney disease; I48.0 Paroxysmal atrial fibrillation; M10.9 Gout, unspecified; Z79.01 Long term (current) use of anticoagulants; Z95.810 Presence of automatic (implantable) cardiac defibrillator; Z95.5 Presence of coronary angioplasty implant and graft; Z86.73 Personal history of transient ischemic attack (TIA), and cerebral infarction without residual deficits; Z85.038 Personal history of other malignant neoplasm of large intestine; Z87.891 Personal history of nicotine dependence; Z95.1 Presence of aortocoronary bypass graft
CPT/HCPCS: 36415; 80048; 83735; 85007; 85027; 96365; 96366; G0463; J1642; J3411; J3475

== ENCOUNTER → 2019-03-22 | Outpatient (CLI) | payer OTHER ==
[2019-03-22] VITALS (9 sets, daily range): BP systolic 105–118; BP diastolic 55–64
[~2019-03-22] MED LIST changes: +DOBUTamine 1000MCG/ML 250 ML IV ONE; -MVI in SODIUM CHLORIDE 0.9% 1,010 ML ONE; -MVI in SODIUM CHLORIDE 0.9% 500 ML IVB ONE
--- NOTE | 2019-03-22 11:00 | NUR ---
IN TO CLINIC FOR SCHEDULED INFUSION. REPORTS FEELING BETTER TODAY. DENIES ANY FURTHER DIARHEA AND DENIES DISTRESS. Ayah Cath Insertion 20 gauge Ayah Cath inserted using sterile technique in the upper chest with occlusive dressing over saucedo needle. Patient tolerated procedure well. See e-MAR for medications given during this visit. Clinic Provider Clinic Provider into see pt with new orders received and carried out. Dobutamine gtt started at {5}mcg/kg/hr per MD order. TOLERATED INFUSION WELL AND WITHOUT DISTRESS. VS WNL. SAUCEDO SITE BENIGN POST INFUSION. DISCHARGED TO SELF CARE IN NO DISTRESS OR DISCOMFORT. MEDICATION ADMINISTRATION DOBUTAMINE GTT AT 5 MCG/KG/MIN START AT 0800/STOP AT 1100 ( 27.33 ML/HR) HEPARIN 500 UNITS IVP AT 1100 AM
== END | disposition home or self-care (01) ==
LOC: CHF HDHVI 07:39
PROVIDERS: ATTEND Internal Medicine Cardiovascular Disease
DX: I13.2 Hypertensive heart and chronic kidney disease with heart failure and with stage 5 chronic kidney disease, or end stage renal disease (principal); E11.22 Type 2 diabetes mellitus with diabetic chronic kidney disease; I50.22 Chronic systolic (congestive) heart failure; N18.6 End stage renal disease; I48.1 Persistent atrial fibrillation; K21.9 Gastro-esophageal reflux disease without esophagitis; I25.10 Atherosclerotic heart disease of native coronary artery without angina pectoris; F31.9 Bipolar disorder, unspecified; J44.9 Chronic obstructive pulmonary disease, unspecified; E78.5 Hyperlipidemia, unspecified; E03.9 Hypothyroidism, unspecified; I25.2 Old myocardial infarction; G89.29 Other chronic pain; M19.072 Primary osteoarthritis, left ankle and foot; E78.00 Pure hypercholesterolemia, unspecified; E11.319 Type 2 diabetes mellitus with unspecified diabetic retinopathy without macular edema; M10.9 Gout, unspecified; E11.40 Type 2 diabetes mellitus with diabetic neuropathy, unspecified; Z85.038 Personal history of other malignant neoplasm of large intestine; Z87.891 Personal history of nicotine dependence; Z86.73 Personal history of transient ischemic attack (TIA), and cerebral infarction without residual deficits; Z90.89 Acquired absence of other organs; Z95.810 Presence of automatic (implantable) cardiac defibrillator; Z79.899 Other long term (current) drug therapy; Z79.01 Long term (current) use of anticoagulants; Z95.1 Presence of aortocoronary bypass graft
CPT/HCPCS: 96365; 96366; G0463; J1250; J1642

== ENCOUNTER → 2019-03-25 | Outpatient (CLI) | payer OTHER ==
[~2019-03-25] MED LIST changes: +CYANOCOBALAMIN (B-12) 1000 MCG/1 ML VIAL IM ONE; +CYANOCOBALAMIN (B-12) 1000 MCG/1 ML VIAL ONE
--- NOTE | 2019-03-25 07:30 | NUR ---
PT. TO CHF CLINIC FOR DOBUTAMINE INFUSION PER DR. ENGLISH. PT. FEELING BETTER OVER THE WEEKEND, WITH WT. DOWN SLIGHTLY SINCE GASTROENTERITIS LAST WEEK. NEW ORDERS RECEIVED AND CARRIED OUT. SEE NSG ASSESS.
--- NOTE | 2019-03-25 07:37 | NUR ---
Clinic Provider Clinic Provider into see pt with new orders received and carried out. Dobutamine gtt started at {5}mcg/kg/hr per MD order.
[2019-03-25 08:00] VITALS: BP 93/56
[2019-03-25 08:15] VITALS: BP 97/55
--- NOTE | 2019-03-25 08:17 | NUR ---
MEDS: PT. MEDICATED WITH VIT. B12 1000 MCG. IM RT DELT. PER MD ORDER.
[2019-03-25 09:00] VITALS: BP 98/53
--- NOTE | 2019-03-25 09:00 | NUR ---
PT. RESTING WITHOUT COMPLICATIONS TO MEDS. VSS
[2019-03-25 09:30] VITALS: BP 104/60
[2019-03-25 10:00] VITALS: BP 103/51
[2019-03-25 10:53] VITALS: BP 108/66
--- NOTE | 2019-03-25 10:53 | NUR ---
Discharge Instructions See e-MAR for any mediations given with this visit. Patient education given on disease process. Patient verbalized understanding. Previous labs reviewed. Patient discharged in stable condition with after care instructions and follow up appointment. MEDICATIONS 0737 START TIME DOBUTAMINE DRIP 5MCG/KG/MIN 1045 STOP TIME DOBUTAMINE DRIP 0817 VITAMIN B12 1000MCG/KG IM RIGHT DELTOID 1051 HEPARIN 500 UNITS IVP X 1
== END | disposition home or self-care (01) ==
LOC: CHF HDHVI 07:43
PROVIDERS: ATTEND Internal Medicine Cardiovascular Disease
DX: I13.2 Hypertensive heart and chronic kidney disease with heart failure and with stage 5 chronic kidney disease, or end stage renal disease (principal); I50.84 End stage heart failure; N18.6 End stage renal disease; D64.9 Anemia, unspecified; I25.10 Atherosclerotic heart disease of native coronary artery without angina pectoris; F31.9 Bipolar disorder, unspecified; K21.9 Gastro-esophageal reflux disease without esophagitis; E78.5 Hyperlipidemia, unspecified; E03.9 Hypothyroidism, unspecified; I25.2 Old myocardial infarction; G89.29 Other chronic pain; M19.072 Primary osteoarthritis, left ankle and foot; E11.22 Type 2 diabetes mellitus with diabetic chronic kidney disease; E11.41 Type 2 diabetes mellitus with diabetic mononeuropathy; E11.319 Type 2 diabetes mellitus with unspecified diabetic retinopathy without macular edema; Z79.899 Other long term (current) drug therapy; Z79.01 Long term (current) use of anticoagulants; Z85.038 Personal history of other malignant neoplasm of large intestine; Z87.891 Personal history of nicotine dependence; Z95.810 Presence of automatic (implantable) cardiac defibrillator; Z95.1 Presence of aortocoronary bypass graft; Z86.73 Personal history of transient ischemic attack (TIA), and cerebral infarction without residual deficits
CPT/HCPCS: 96365; 96366; 96372; G0463; J1250; J1642; J3420

== ENCOUNTER → 2019-03-27 | Outpatient (CLI) | payer OTHER ==
[~2019-03-27] VITALS: Ht 30.5 cm; Wt 888.1 kg
[2019-03-27] VITALS (10 sets, daily range): BP systolic 102–134; BP diastolic 54–70
[~2019-03-27] MED LIST changes: -CYANOCOBALAMIN (B-12) 1000 MCG/1 ML VIAL IM ONE; -CYANOCOBALAMIN (B-12) 1000 MCG/1 ML VIAL ONE
--- NOTE | 2019-03-27 07:35 | NUR ---
PT. TO CHF CLINIC FOR DOBUTREX INFUSION PER MD ORDER. PT. STATES HE IS FEELING BETTER EACH DAY AFTER GASTROENTERITIS EVENT LAST WEEK. WT STABLE AT 197.6 LBS. ORDERS RECEIVED AND CARRIED OUT. SEE NSG ASSESS.
--- NOTE | 2019-03-27 07:46 | NUR ---
Clinic Provider Clinic Provider into see pt with new orders received and carried out. Dobutamine gtt started at {5}mcg/kg/hr per MD order.
--- NOTE | 2019-03-27 10:57 | NUR ---
Discharge Instructions See e-MAR for any mediations given with this visit. Patient education given on disease process. Patient verbalized understanding. Previous labs reviewed. Patient discharged in stable condition with after care instructions and follow up appointment. MEDICATIONS 0746 START TIME DOBUTAMINE DRIP 5MCG/KG/MIN 1051 STOP TIME DOBUTAMINE DRIP 1051 HEPARIN 500 UNITS IVP X 1 TO PORTACATH
== END | disposition home or self-care (01) ==
LOC: CHF HDHVI 07:46
PROVIDERS: ATTEND Internal Medicine Cardiovascular Disease
DX: I13.2 Hypertensive heart and chronic kidney disease with heart failure and with stage 5 chronic kidney disease, or end stage renal disease (principal); I50.84 End stage heart failure; N18.6 End stage renal disease; I25.10 Atherosclerotic heart disease of native coronary artery without angina pectoris; F31.9 Bipolar disorder, unspecified; J44.9 Chronic obstructive pulmonary disease, unspecified; K21.9 Gastro-esophageal reflux disease without esophagitis; E78.5 Hyperlipidemia, unspecified; E03.9 Hypothyroidism, unspecified; I25.2 Old myocardial infarction; G89.29 Other chronic pain; E11.22 Type 2 diabetes mellitus with diabetic chronic kidney disease; E11.41 Type 2 diabetes mellitus with diabetic mononeuropathy; E11.319 Type 2 diabetes mellitus with unspecified diabetic retinopathy without macular edema; I50.22 Chronic systolic (congestive) heart failure; M19.90 Unspecified osteoarthritis, unspecified site; Z79.01 Long term (current) use of anticoagulants; Z85.038 Personal history of other malignant neoplasm of large intestine; Z86.73 Personal history of transient ischemic attack (TIA), and cerebral infarction without residual deficits; Z79.899 Other long term (current) drug therapy; Z90.89 Acquired absence of other organs; Z95.1 Presence of aortocoronary bypass graft
CPT/HCPCS: 96365; 96366; G0463; J1250; J1642

== ENCOUNTER → 2019-03-29 | Outpatient (CLI) | payer OTHER ==
[2019-03-29] VITALS (10 sets, daily range): BP systolic 91–111; BP diastolic 53–68
--- NOTE | 2019-03-29 07:30 | NUR ---
PT. TO CHF CLINIC FOR DOBUTAMINE INFUSION PER MD ORDER. PT. STILL WITH SOB WITH EXERTION, BUT FEELING BETTER TODAY. MD ORDERS RECEIVED AND CARRIED OUT. SEE NSG ASSESS.
--- NOTE | 2019-03-29 07:40 | NUR ---
Clinic Provider Clinic Provider into see pt with new orders received and carried out. Dobutamine gtt started at {5}mcg/kg/hr per MD order.
--- NOTE | 2019-03-29 10:55 | NUR ---
[facility] CLINIC Discharge Instructions See e-MAR for any mediations given with this visit. Patient education given on disease process. Patient verbalized understanding. Previous labs reviewed. Patient discharged in stable condition with after care instructions and follow up appointment ON MONDAY. NOTE DOBUTAMINE INFUSION [id number] ADMIN BY GISELA ALVAREZ HEPARIN ADMIN BY MACY ALVAREZ
== END | disposition home or self-care (01) ==
LOC: CHF HDHVI 07:29
PROVIDERS: ATTEND Internal Medicine Cardiovascular Disease
DX: I13.2 Hypertensive heart and chronic kidney disease with heart failure and with stage 5 chronic kidney disease, or end stage renal disease (principal); N18.6 End stage renal disease; I50.84 End stage heart failure; I25.10 Atherosclerotic heart disease of native coronary artery without angina pectoris; F31.9 Bipolar disorder, unspecified; J44.9 Chronic obstructive pulmonary disease, unspecified; K21.9 Gastro-esophageal reflux disease without esophagitis; E78.5 Hyperlipidemia, unspecified; E03.9 Hypothyroidism, unspecified; I25.2 Old myocardial infarction; G89.29 Other chronic pain; M19.072 Primary osteoarthritis, left ankle and foot; E11.22 Type 2 diabetes mellitus with diabetic chronic kidney disease; E11.41 Type 2 diabetes mellitus with diabetic mononeuropathy; E11.319 Type 2 diabetes mellitus with unspecified diabetic retinopathy without macular edema; I50.22 Chronic systolic (congestive) heart failure; Z79.899 Other long term (current) drug therapy; Z79.01 Long term (current) use of anticoagulants; Z85.038 Personal history of other malignant neoplasm of large intestine; Z95.810 Presence of automatic (implantable) cardiac defibrillator; Z86.73 Personal history of transient ischemic attack (TIA), and cerebral infarction without residual deficits; Z95.1 Presence of aortocoronary bypass graft
CPT/HCPCS: 96365; 96366; G0463; J1250; J1642

== ENCOUNTER → 2019-04-01 | Outpatient (CLI) | payer OTHER ==
[2019-04-01] VITALS (8 sets, daily range): BP systolic 90–115; BP diastolic 46–71
[~2019-04-01] MED LIST changes: +SODIUM CHLORIDE 0.9% 1,000 ML IV SCH
--- NOTE | 2019-04-01 07:30 | NUR ---
PT. TO CHF CLINIC FOR DOBUTREX INFUSION PER MD. WEIGHT STABLE OVER THE WEEKEND WITH INCREASE IN EXERCISE TOLERANCE PER PT. ORDERS RECEIVED AND CARRIED OUT. SEE NSG ASSESS.
--- NOTE | 2019-04-01 07:35 | NUR ---
Ayah Cath Insertion gauge Ayah Cath inserted using sterile technique in the upper chest with occlusive dressing over saucedo needle. Patient tolerated procedure well. See e-MAR for medications given during this visit.
--- NOTE | 2019-04-01 07:40 | NUR ---
Clinic Provider Clinic Provider into see pt with new orders received and carried out. Dobutamine gtt started at {5}mcg/kg/hr per MD order.
--- NOTE | 2019-04-01 08:10 | NUR ---
HYPOTENSIVE 90/46. CLINIC PROVIDER CONSULTED AND ORDERS RECIEVED AND CARRIED OUT.
--- NOTE | 2019-04-01 08:45 | NUR ---
FLUID CHALLENGE COMPLETE, ADMINISTERED TOTAL OF 250 ML OF NS.
--- NOTE | 2019-04-01 09:06 | NUR ---
SEE FREQUENT VITAL SIGNS. BP IMPROVED.
--- NOTE | 2019-04-01 10:55 | NUR ---
COMPLETED INFUSION WITHOUT INCIDENT. WITHOUT DISTRESS OR DISCOMFORT. VSS.
--- NOTE | 2019-04-01 11:03 | NUR ---
CHF Ayah Cath Removal Quinones needle D/C'd after Heparin flush per protocol. See e-MAR for medications given during this visit. Sterile occlusive dressing to site. Patient tolerated procedure well. Site benign post infusion. Discharge Instructions See e-MAR for any mediations given with this visit. Patient education given on disease process. Patient verbalized understanding. Previous labs reviewed. Patient discharged in stable condition with after care instructions and follow up appointment FOR Monday04/03/19. MEDICATION ADMINISTRATION DOBUTAMINE GTT AT 5 MCG/KG/MIN (27.03 ML/HR) START AT 0740/STOP AT 1055 0.9 NS 250 ML START AT 0810/STOP AT 0845 HEPARIN 500 UNITS IVP TO RIGHT CHEST PORT AT 1055
== END | disposition home or self-care (01) ==
LOC: CHF HDHVI 08:03
PROVIDERS: ATTEND Internal Medicine Cardiovascular Disease
DX: I13.2 Hypertensive heart and chronic kidney disease with heart failure and with stage 5 chronic kidney disease, or end stage renal disease (principal); I50.84 End stage heart failure; N18.6 End stage renal disease; I50.22 Chronic systolic (congestive) heart failure; I25.10 Atherosclerotic heart disease of native coronary artery without angina pectoris; F31.9 Bipolar disorder, unspecified; J44.9 Chronic obstructive pulmonary disease, unspecified; K21.9 Gastro-esophageal reflux disease without esophagitis; E78.5 Hyperlipidemia, unspecified; E03.9 Hypothyroidism, unspecified; I25.2 Old myocardial infarction; G89.29 Other chronic pain; M19.072 Primary osteoarthritis, left ankle and foot; E78.00 Pure hypercholesterolemia, unspecified; E11.22 Type 2 diabetes mellitus with diabetic chronic kidney disease; E11.41 Type 2 diabetes mellitus with diabetic mononeuropathy; E11.319 Type 2 diabetes mellitus with unspecified diabetic retinopathy without macular edema; I48.1 Persistent atrial fibrillation; I48.0 Paroxysmal atrial fibrillation; Z95.810 Presence of automatic (implantable) cardiac defibrillator; Z79.01 Long term (current) use of anticoagulants; Z79.899 Other long term (current) drug therapy; Z85.038 Personal history of other malignant neoplasm of large intestine; Z87.891 Personal history of nicotine dependence; Z95.1 Presence of aortocoronary bypass graft; Z86.73 Personal history of transient ischemic attack (TIA), and cerebral infarction without residual deficits
CPT/HCPCS: 96365; 96366; G0463; J1250; J1642; J7050

== ENCOUNTER → 2019-04-03 | Outpatient (CLI) | payer OTHER ==
[~2019-04-03] VITALS: Ht 30.5 cm; Wt 89.5 kg
[2019-04-03] VITALS (10 sets, daily range): BP systolic 102–130; BP diastolic 55–82
[~2019-04-03] MED LIST changes: +CYANOCOBALAMIN (B-12) 1000 MCG/1 ML VIAL IM ONE; +CYANOCOBALAMIN (B-12) 1000 MCG/1 ML VIAL ONE; -SODIUM CHLORIDE 0.9% 1,000 ML IV SCH
--- NOTE | 2019-04-03 07:30 | NUR ---
PT. TO CHF CLINIC FOR DOBUTAMINE DRIP PER MD ORDER. PT. CONTINUING TO FEEL BETTER EACH DAY AFTER GASTROENTERITIS. WT STABLE. ORDERS RECEIVED AND CARRIED OUT. SEE NSG. ASSESS.
--- NOTE | 2019-04-03 07:46 | NUR ---
Clinic Provider Clinic Provider into see pt with new orders received and carried out. Dobutamine gtt started at {5}mcg/kg/hr per MD order.
--- NOTE | 2019-04-03 07:48 | NUR ---
MEDS: PT. MEDICATED WITH VIT. B12 ,1000MCG IM ,RT DELT. PER MD ORDER.
--- NOTE | 2019-04-03 10:52 | NUR ---
[facility] CLINIC Discharge Instructions See e-MAR for any mediations given with this visit. Patient education given on disease process. Patient verbalized understanding. Previous labs reviewed. Patient discharged in stable condition with after care instructions and follow up appointment. NOTE DOBUTAMINE [id number] ADMIN BY GISELA ALVAREZ B12 IM R DELTOID ADMIN BY GISELA ALVAREZ HEPARIN ADMIN BY ISAC ALVAREZ
[2019-04-03 12:51] LABS: Potassium 4.1 mmol/L (3.5-5.1)
[2019-04-03 12:52] LABS: Basophils # (auto) 0 uL; Basophils % (auto) 0.9 % (0.0-2.0); Eosinophils # (auto) 0.4 uL; Hematocrit 42.6 % (41.0-53.0); Hemoglobin 14.7 g/dL (13.5-17.5); Lymphocytes # (auto) 1.4 uL; Lymphocytes % (auto) 35.9 % (10.0-50.0); Mean Corpuscular Hemoglobin 33.2 pg (28.0-32.0); Mean Corpuscular Hgb Conc. 34.5 g/dL (32.0-36.0); Mean Corpuscular Volume 96.3 fL (80.0-100.0); Monocytes # (auto) 0.7 uL; Monocytes % (auto) 17.8 % (0.0-12.0); Neutrophils # (auto) 1.4 uL; Neutrophils % (auto) 36.4 % (37.0-80.0); Nucleated Red Blood Cells % 0.2 %; Platelet Count (auto) 153 10^3/uL (140-450); Red Blood Cells 4.42 10^6/uL (4.5-5.90); White Blood Cell 3.9 10^3/uL (4.4-10.8)
[2019-04-03 13:31] LABS: Albumin 3.8 g/dL (3.4-5.0); BUN/Creatinine Ratio 13.6; Bilirubin, Total 0.8 mg/dL (0.2-1.0); Calcium 8.6 mg/dL (8.5-10.1); Magnesium 2.6 mg/dL (1.6-2.6); Total Protein 7.3 g/dL (6.4-8.2)
== END | disposition home or self-care (01) ==
LOC: CHF HDHVI 07:58
PROVIDERS: ATTEND Internal Medicine Cardiovascular Disease
DX: I13.2 Hypertensive heart and chronic kidney disease with heart failure and with stage 5 chronic kidney disease, or end stage renal disease (principal); I50.84 End stage heart failure; N18.6 End stage renal disease; I25.10 Atherosclerotic heart disease of native coronary artery without angina pectoris; D64.9 Anemia, unspecified; F31.9 Bipolar disorder, unspecified; J44.9 Chronic obstructive pulmonary disease, unspecified; K21.9 Gastro-esophageal reflux disease without esophagitis; E78.5 Hyperlipidemia, unspecified; E03.9 Hypothyroidism, unspecified; I25.2 Old myocardial infarction; G89.29 Other chronic pain; M19.072 Primary osteoarthritis, left ankle and foot; E11.22 Type 2 diabetes mellitus with diabetic chronic kidney disease; E11.40 Type 2 diabetes mellitus with diabetic neuropathy, unspecified; E11.319 Type 2 diabetes mellitus with unspecified diabetic retinopathy without macular edema; E11.41 Type 2 diabetes mellitus with diabetic mononeuropathy; Z79.01 Long term (current) use of anticoagulants; Z85.038 Personal history of other malignant neoplasm of large intestine; Z87.891 Personal history of nicotine dependence; Z95.1 Presence of aortocoronary bypass graft; Z95.810 Presence of automatic (implantable) cardiac defibrillator; Z86.73 Personal history of transient ischemic attack (TIA), and cerebral infarction without residual deficits
CPT/HCPCS: 36415; 80053; 83735; 83880; 85025; 96365; 96366; 96372; G0463; J1250; J1642; J3420

== ENCOUNTER → 2019-04-05 | Outpatient (CLI) | payer OTHER ==
[~2019-04-05] VITALS: Ht 30.5 cm; Wt 89.8 kg
[2019-04-05] VITALS (9 sets, daily range): BP systolic 91–124; BP diastolic 45–70
[~2019-04-05] MED LIST changes: -CYANOCOBALAMIN (B-12) 1000 MCG/1 ML VIAL IM ONE; -CYANOCOBALAMIN (B-12) 1000 MCG/1 ML VIAL ONE
--- NOTE | 2019-04-05 07:46 | NUR ---
IN TO CLINIC FOR SCHEDULED INFUSION. Clinic Provider Clinic Provider into see pt with new orders received and carried out. Ayah Cath Insertion 20 gauge Ayah Cath inserted using sterile technique in the upper chest with occlusive dressing over saucedo needle. Patient tolerated procedure well. Ordered labs drawn and sent. See e-MAR for medications given during this visit. Dobutamine gtt started at {5}mcg/kg/hr per MD order.
--- NOTE | 2019-04-05 08:30 | NUR ---
DOBUTAMINE INFUSION IN PROGRESS AT 5 MCG/KG/MIN. WITHOUT DISTRESS OR DISCOMFORT. TOLERATING WELL.
--- NOTE | 2019-04-05 10:00 | NUR ---
SEE FREQUENT VITAL SIGNS. TOLERATING WELL
--- NOTE | 2019-04-05 10:55 | NUR ---
CHF MEDICATION ADMINISTRATION DOBUTAMINE GTT AT 5 MCG/KG/MIN START AT 0747/STOP AT 1050 (27.03 ML HR) HEPARIN 500 UNITS IVP AT 1050 TO PORT A CATH
== END | disposition home or self-care (01) ==
LOC: CHF HDHVI 07:32
PROVIDERS: ATTEND Internal Medicine Cardiovascular Disease
DX: I13.2 Hypertensive heart and chronic kidney disease with heart failure and with stage 5 chronic kidney disease, or end stage renal disease (principal); I50.84 End stage heart failure; N18.6 End stage renal disease; I50.22 Chronic systolic (congestive) heart failure; I48.91 Unspecified atrial fibrillation; I25.10 Atherosclerotic heart disease of native coronary artery without angina pectoris; F31.9 Bipolar disorder, unspecified; J44.9 Chronic obstructive pulmonary disease, unspecified; K21.9 Gastro-esophageal reflux disease without esophagitis; E78.5 Hyperlipidemia, unspecified; E03.9 Hypothyroidism, unspecified; I25.2 Old myocardial infarction; G89.29 Other chronic pain; M19.072 Primary osteoarthritis, left ankle and foot; E11.22 Type 2 diabetes mellitus with diabetic chronic kidney disease; E11.319 Type 2 diabetes mellitus with unspecified diabetic retinopathy without macular edema; E11.41 Type 2 diabetes mellitus with diabetic mononeuropathy; E78.00 Pure hypercholesterolemia, unspecified; Z79.01 Long term (current) use of anticoagulants; Z85.038 Personal history of other malignant neoplasm of large intestine; Z87.891 Personal history of nicotine dependence; Z95.1 Presence of aortocoronary bypass graft; Z95.810 Presence of automatic (implantable) cardiac defibrillator; Z86.73 Personal history of transient ischemic attack (TIA), and cerebral infarction without residual deficits; Z79.899 Other long term (current) drug therapy
CPT/HCPCS: 96365; 96366; G0463; J1250; J1642

== ENCOUNTER → 2019-04-08 | Outpatient (CLI) | payer OTHER ==
[2019-04-08] VITALS (8 sets, daily range): BP systolic 101–119; BP diastolic 42–66
--- NOTE | 2019-04-08 07:30 | NUR ---
PT. TO CHF CLINIC FOR DOBUTREX INFUSION PER MD ORDER. PT. FEELING BETTER AFTER WEEKEND. NEW ORDERS RECEIVED AND CARRIED OUT. SEE NSG ASSESS.
--- NOTE | 2019-04-08 07:48 | NUR ---
Clinic Provider Clinic Provider into see pt with new orders received and carried out. Dobutamine gtt started at {5}mcg/kg/hr per MD order.
--- NOTE | 2019-04-08 10:45 | NUR ---
BACK FROM SEEING MD. LASSITER WNL. RESUME DOBUTAMINE GTT
== END | disposition home or self-care (01) ==
LOC: CHF HDHVI 07:42
PROVIDERS: ATTEND Internal Medicine Cardiovascular Disease
DX: I13.2 Hypertensive heart and chronic kidney disease with heart failure and with stage 5 chronic kidney disease, or end stage renal disease (principal); I50.22 Chronic systolic (congestive) heart failure; I50.84 End stage heart failure; N18.6 End stage renal disease; E11.22 Type 2 diabetes mellitus with diabetic chronic kidney disease; I27.21 Secondary pulmonary arterial hypertension; R06.00 Dyspnea, unspecified; I25.10 Atherosclerotic heart disease of native coronary artery without angina pectoris; J44.9 Chronic obstructive pulmonary disease, unspecified; F31.9 Bipolar disorder, unspecified; K21.9 Gastro-esophageal reflux disease without esophagitis; E78.5 Hyperlipidemia, unspecified; E03.9 Hypothyroidism, unspecified; I25.2 Old myocardial infarction; G89.29 Other chronic pain; I48.1 Persistent atrial fibrillation; M19.072 Primary osteoarthritis, left ankle and foot; E78.00 Pure hypercholesterolemia, unspecified; E11.41 Type 2 diabetes mellitus with diabetic mononeuropathy; E11.51 Type 2 diabetes mellitus with diabetic peripheral angiopathy without gangrene; E11.319 Type 2 diabetes mellitus with unspecified diabetic retinopathy without macular edema; Z95.810 Presence of automatic (implantable) cardiac defibrillator; Z90.49 Acquired absence of other specified parts of digestive tract; Z79.01 Long term (current) use of anticoagulants; Z85.038 Personal history of other malignant neoplasm of large intestine; Z87.891 Personal history of nicotine dependence; Z95.1 Presence of aortocoronary bypass graft; Z95.5 Presence of coronary angioplasty implant and graft; Z86.73 Personal history of transient ischemic attack (TIA), and cerebral infarction without residual deficits
CPT/HCPCS: 96365; 96366; G0463; J1250; J1642

== ENCOUNTER → 2019-04-10 | Outpatient (CLI) | payer OTHER ==
[2019-04-10] VITALS (11 sets, daily range): BP systolic 94–120; BP diastolic 48–68
--- NOTE | 2019-04-10 07:30 | NUR ---
IN TO CLINIC FOR SCHEDULED INFUSION. WITHOUT COMPLAINT..VS WNL
--- NOTE | 2019-04-10 08:57 | NUR ---
DOBUTAMINE GTT ONGOING. TOLERATING WELL. WITHOUT COM[PLAINT.
--- NOTE | 2019-04-10 11:00 | NUR ---
[facility] CLINIC Discharge Instructions See e-MAR for any mediations given with this visit. Patient education given on disease process. Patient verbalized understanding. Previous labs reviewed. Patient discharged in stable condition with after care instructions and follow up appointment ON MONDAY. NOTE DOBUTAMINE [id number] ADMIN BY ISAC ALVAREZ. HEPARIN ADMIN BY MACY ALVAREZ.
== END | disposition home or self-care (01) ==
LOC: CHF HDHVI 07:56
PROVIDERS: ATTEND Internal Medicine Cardiovascular Disease
DX: I13.2 Hypertensive heart and chronic kidney disease with heart failure and with stage 5 chronic kidney disease, or end stage renal disease (principal); E11.22 Type 2 diabetes mellitus with diabetic chronic kidney disease; I50.22 Chronic systolic (congestive) heart failure; N18.6 End stage renal disease; I25.10 Atherosclerotic heart disease of native coronary artery without angina pectoris; I25.2 Old myocardial infarction; I48.1 Persistent atrial fibrillation; K21.9 Gastro-esophageal reflux disease without esophagitis; M10.9 Gout, unspecified; E11.41 Type 2 diabetes mellitus with diabetic mononeuropathy; E11.319 Type 2 diabetes mellitus with unspecified diabetic retinopathy without macular edema; E78.5 Hyperlipidemia, unspecified; E03.9 Hypothyroidism, unspecified; G89.29 Other chronic pain; M19.072 Primary osteoarthritis, left ankle and foot; E78.00 Pure hypercholesterolemia, unspecified; Z90.89 Acquired absence of other organs; Z95.810 Presence of automatic (implantable) cardiac defibrillator; Z79.01 Long term (current) use of anticoagulants; Z90.49 Acquired absence of other specified parts of digestive tract; Z85.038 Personal history of other malignant neoplasm of large intestine; Z87.891 Personal history of nicotine dependence; Z95.1 Presence of aortocoronary bypass graft; Z95.5 Presence of coronary angioplasty implant and graft; Z79.899 Other long term (current) drug therapy; Z86.73 Personal history of transient ischemic attack (TIA), and cerebral infarction without residual deficits
CPT/HCPCS: 96365; 96366; G0463; J1250; J1642

== ENCOUNTER → 2019-04-12 | Outpatient (CLI) | payer OTHER ==
[2019-04-12] VITALS (8 sets, daily range): BP systolic 92–123; BP diastolic 50–81
--- NOTE | 2019-04-12 07:30 | NUR ---
PT. TO CHF CLINIC FOR DOBUTAMINE INFUSION PER MD ORDER. NEW ORDERS RECEIVED AND CARRIED OUT. SEE NSG ASSESS.
--- NOTE | 2019-04-12 07:43 | NUR ---
Clinic Provider Clinic Provider into see pt with new orders received and carried out. Dobutamine gtt started at {5}mcg/kg/hr per MD order.
--- NOTE | 2019-04-12 10:05 | NUR ---
Patient to back office for echo
--- NOTE | 2019-04-12 10:45 | NUR ---
Patient back from echo, restarted Dobutamine infusion
--- NOTE | 2019-04-12 11:30 | NUR ---
[facility] CLINIC Discharge Instructions See e-MAR for any mediations given with this visit. Patient education given on disease process. Patient verbalized understanding. Previous labs reviewed. Patient discharged in stable condition with after care instructions and follow up appointment. Note Dobutamine [id number] admin by Roscoe ALVAREZ. Heparin admin by Aisha ALVAREZ
== END | disposition home or self-care (01) ==
LOC: CHF HDHVI 07:27
PROVIDERS: ATTEND Internal Medicine Cardiovascular Disease
DX: I13.2 Hypertensive heart and chronic kidney disease with heart failure and with stage 5 chronic kidney disease, or end stage renal disease (principal); E11.22 Type 2 diabetes mellitus with diabetic chronic kidney disease; I50.23 Acute on chronic systolic (congestive) heart failure; N18.6 End stage renal disease; I25.10 Atherosclerotic heart disease of native coronary artery without angina pectoris; I48.1 Persistent atrial fibrillation; I25.2 Old myocardial infarction; I25.5 Ischemic cardiomyopathy; I42.8 Other cardiomyopathies; J44.9 Chronic obstructive pulmonary disease, unspecified; F31.9 Bipolar disorder, unspecified; E11.41 Type 2 diabetes mellitus with diabetic mononeuropathy; E11.319 Type 2 diabetes mellitus with unspecified diabetic retinopathy without macular edema; K21.9 Gastro-esophageal reflux disease without esophagitis; E78.5 Hyperlipidemia, unspecified; E03.9 Hypothyroidism, unspecified; G89.29 Other chronic pain; M19.072 Primary osteoarthritis, left ankle and foot; E78.00 Pure hypercholesterolemia, unspecified; M10.9 Gout, unspecified; Z95.5 Presence of coronary angioplasty implant and graft; Z79.899 Other long term (current) drug therapy; Z85.038 Personal history of other malignant neoplasm of large intestine; Z87.891 Personal history of nicotine dependence; Z95.1 Presence of aortocoronary bypass graft; Z86.73 Personal history of transient ischemic attack (TIA), and cerebral infarction without residual deficits; Z95.810 Presence of automatic (implantable) cardiac defibrillator; Z79.01 Long term (current) use of anticoagulants
CPT/HCPCS: 93306; 96365; 96366; G0463; J1250; J1642

== ENCOUNTER → 2019-04-15 | Outpatient (CLI) | payer OTHER ==
[2019-04-15] VITALS (9 sets, daily range): BP systolic 102–137; BP diastolic 63–79
--- NOTE | 2019-04-15 07:30 | NUR ---
PT. TO [facility]F CLINIC FOR DOBUTAMINE INFUSION PER MD ORDER. PT. WAS UNABLE TO DO ANY EXERCISES OVER THE WEEKEND. SEE NSG ASSESS. ORDERS RECEIVED AND CARRIED OUT.
--- NOTE | 2019-04-15 07:40 | NUR ---
Clinic Provider Clinic Provider into see pt with new orders received and carried out. Dobutamine gtt started at {5}mcg/kg/hr per MD order.
--- NOTE | 2019-04-15 10:45 | NUR ---
Discharge Instructions See e-MAR for any mediations given with this visit. Patient education given on disease process. Patient verbalized understanding. Previous labs reviewed. Patient discharged in stable condition with after care instructions and follow up appointment. MEDICATIONS 0740 DOBUTAMINE IV START TIME 5MCG/KG/MIN STOP TIME 1040 1044 HEPARIN 500 UNTIS IVP
== END | disposition home or self-care (01) ==
LOC: CHF HDHVI 07:38
PROVIDERS: ATTEND Internal Medicine Cardiovascular Disease
DX: I13.2 Hypertensive heart and chronic kidney disease with heart failure and with stage 5 chronic kidney disease, or end stage renal disease (principal); I50.84 End stage heart failure; I25.10 Atherosclerotic heart disease of native coronary artery without angina pectoris; I50.23 Acute on chronic systolic (congestive) heart failure; F31.9 Bipolar disorder, unspecified; J44.9 Chronic obstructive pulmonary disease, unspecified; N18.6 End stage renal disease; K21.9 Gastro-esophageal reflux disease without esophagitis; E78.5 Hyperlipidemia, unspecified; E03.9 Hypothyroidism, unspecified; I25.2 Old myocardial infarction; G89.29 Other chronic pain; I48.1 Persistent atrial fibrillation; E78.00 Pure hypercholesterolemia, unspecified; E11.22 Type 2 diabetes mellitus with diabetic chronic kidney disease; E11.41 Type 2 diabetes mellitus with diabetic mononeuropathy; E11.319 Type 2 diabetes mellitus with unspecified diabetic retinopathy without macular edema; I48.0 Paroxysmal atrial fibrillation; M19.90 Unspecified osteoarthritis, unspecified site; Z79.01 Long term (current) use of anticoagulants; Z79.899 Other long term (current) drug therapy; Z95.1 Presence of aortocoronary bypass graft; Z95.810 Presence of automatic (implantable) cardiac defibrillator; Z95.5 Presence of coronary angioplasty implant and graft; Z86.73 Personal history of transient ischemic attack (TIA), and cerebral infarction without residual deficits
CPT/HCPCS: 96365; 96366; G0463; J1250; J1642

== ENCOUNTER → 2019-04-17 | Outpatient (CLI) | payer OTHER ==
[~2019-04-17] VITALS: Ht 30.5 cm; Wt 89.3 kg
[2019-04-17] VITALS (10 sets, daily range): BP systolic 100–132; BP diastolic 50–79
--- NOTE | 2019-04-17 07:30 | NUR ---
PT. TO [facility]F CLINIC FOR DOBUTAMINE INFUSION PER MD ORDER. PT. DID EXERCISE YESTERDAY. ORDERS RECEIVED AND CARRIED OUT. SEE NSG ASSESS.
--- NOTE | 2019-04-17 07:35 | NUR ---
CARDIODYNAMICS DONE PER MD ORDER. RESULTS REVIEWED WITH PT. AND CHARTED.
--- NOTE | 2019-04-17 07:52 | NUR ---
Clinic Provider Clinic Provider into see pt with new orders received and carried out. Dobutamine gtt started at {5}mcg/kg/hr per MD order.
--- NOTE | 2019-04-17 11:00 | NUR ---
[facility] CLINIC Discharge Instructions See e-MAR for any mediations given with this visit. Patient education given on disease process. Patient verbalized understanding. Previous labs reviewed. Patient discharged in stable condition with after care instructions and follow up appointment on Monday. Note Dobutamine [id number] admin by Roscoe ALVAREZ Heparin admin by Aisha ALVAREZ
== END | disposition home or self-care (01) ==
LOC: CHF HDHVI 07:32
PROVIDERS: ATTEND Internal Medicine Cardiovascular Disease
DX: I13.2 Hypertensive heart and chronic kidney disease with heart failure and with stage 5 chronic kidney disease, or end stage renal disease (principal); I50.23 Acute on chronic systolic (congestive) heart failure; I50.84 End stage heart failure; N18.6 End stage renal disease; I25.10 Atherosclerotic heart disease of native coronary artery without angina pectoris; F31.9 Bipolar disorder, unspecified; K21.9 Gastro-esophageal reflux disease without esophagitis; E78.5 Hyperlipidemia, unspecified; E03.9 Hypothyroidism, unspecified; I25.2 Old myocardial infarction; G89.29 Other chronic pain; I48.0 Paroxysmal atrial fibrillation; E78.00 Pure hypercholesterolemia, unspecified; E11.22 Type 2 diabetes mellitus with diabetic chronic kidney disease; E11.41 Type 2 diabetes mellitus with diabetic mononeuropathy; E11.319 Type 2 diabetes mellitus with unspecified diabetic retinopathy without macular edema; M19.90 Unspecified osteoarthritis, unspecified site; M19.072 Primary osteoarthritis, left ankle and foot; Z79.01 Long term (current) use of anticoagulants; Z79.899 Other long term (current) drug therapy; Z95.1 Presence of aortocoronary bypass graft; Z95.810 Presence of automatic (implantable) cardiac defibrillator; Z95.5 Presence of coronary angioplasty implant and graft; Z86.73 Personal history of transient ischemic attack (TIA), and cerebral infarction without residual deficits; Z85.038 Personal history of other malignant neoplasm of large intestine; Z87.891 Personal history of nicotine dependence; Z90.49 Acquired absence of other specified parts of digestive tract
CPT/HCPCS: 83880; 93701; 96365; 96366; G0463; J1250; J1642

== ENCOUNTER → 2019-04-19 | Outpatient (CLI) | payer OTHER ==
[2019-04-19] VITALS (9 sets, daily range): BP systolic 98–131; BP diastolic 48–67
[~2019-04-19] VITALS: Ht 30.5 cm; Wt 40.8 kg
--- NOTE | 2019-04-19 07:30 | NUR ---
PT. TO CHF CLINIC FOR DOBUTAMINE THERAPY PER MD ORDER. ORDERS RECEIVED AND CARRIED OUT. SEE NSG. ASSESS.
--- NOTE | 2019-04-19 07:37 | NUR ---
Clinic Provider Clinic Provider into see pt with new orders received and carried out. Dobutamine gtt started at {5}mcg/kg/hr per MD order.
--- NOTE | 2019-04-19 09:45 | NUR ---
VISITING. VS WNL. WITHOUT DISTRESS OR DISCOMFORT.
--- NOTE | 2019-04-19 10:50 | NUR ---
INFUSION COMPLETED AND TOLERATED WELL. VS WNL. WITHOUT DISTRESS OR DISCOMFORT. Discharge Instructions See e-MAR for any mediations given with this visit. Patient education given on disease process. Patient verbalized understanding. Previous labs reviewed. Patient discharged in stable condition with after care instructions and follow up appointment FOR Monday04/23/19 MEDICATION ADMINISTRATION DOBUTAMINE GTT AT 5 MCG/KG/MIN 27.12 ML/HR START AT 0737/STOP AT 1045 HEPARIN 500 UNITS IVP AT 1050
== END | disposition home or self-care (01) ==
LOC: CHF HDHVI 07:42
PROVIDERS: ATTEND Internal Medicine Cardiovascular Disease
DX: I13.2 Hypertensive heart and chronic kidney disease with heart failure and with stage 5 chronic kidney disease, or end stage renal disease (principal); I50.84 End stage heart failure; N18.6 End stage renal disease; I50.23 Acute on chronic systolic (congestive) heart failure; I25.10 Atherosclerotic heart disease of native coronary artery without angina pectoris; J44.9 Chronic obstructive pulmonary disease, unspecified; K21.9 Gastro-esophageal reflux disease without esophagitis; E78.5 Hyperlipidemia, unspecified; E03.9 Hypothyroidism, unspecified; Z79.01 Long term (current) use of anticoagulants; I25.2 Old myocardial infarction; G89.29 Other chronic pain; E11.41 Type 2 diabetes mellitus with diabetic mononeuropathy; F31.9 Bipolar disorder, unspecified; E11.22 Type 2 diabetes mellitus with diabetic chronic kidney disease; M19.90 Unspecified osteoarthritis, unspecified site; Z90.49 Acquired absence of other specified parts of digestive tract; Z79.899 Other long term (current) drug therapy; Z95.810 Presence of automatic (implantable) cardiac defibrillator; Z95.5 Presence of coronary angioplasty implant and graft; Z86.73 Personal history of transient ischemic attack (TIA), and cerebral infarction without residual deficits; Z87.891 Personal history of nicotine dependence; Z95.1 Presence of aortocoronary bypass graft
CPT/HCPCS: 96365; 96366; G0463; J1250; J1642

== ENCOUNTER → 2019-04-24 | Outpatient (CLI) | payer OTHER ==
[2019-04-24] VITALS (10 sets, daily range): BP systolic 104–126; BP diastolic 53–67
[~2019-04-24] MED LIST changes: +EZET10TA22 PO; -EZET10TA6 PO; -HYDR-4683 PO; +HYDR-4833 PO; +POTA-220 PO; -POTA20TA53 PO
--- NOTE | 2019-04-24 07:35 | NUR ---
PT. TO CHF CLINIC FOR DOBUTAMINE INFUSION PER MD ORDER. PT. STATES HE IS FEELING BETTER SINCE LAST TX, WITH MINIMAL SOB WITH EXERTION. ORDERS RECEIVED AND CARRIED OUT. SEE NSG ASSESS.
--- NOTE | 2019-04-24 07:45 | NUR ---
Clinic Provider Clinic Provider into see pt with new orders received and carried out. Dobutamine gtt started at {5}mcg/kg/hr per MD order.
--- NOTE | 2019-04-24 10:00 | NUR ---
PT. RESTING WITH NO C/O. VSS.
== END | disposition home or self-care (01) ==
LOC: CHF HDHVI 07:32
PROVIDERS: ATTEND Internal Medicine Cardiovascular Disease
DX: I25.10 Atherosclerotic heart disease of native coronary artery without angina pectoris (principal); I13.2 Hypertensive heart and chronic kidney disease with heart failure and with stage 5 chronic kidney disease, or end stage renal disease; E11.22 Type 2 diabetes mellitus with diabetic chronic kidney disease; N18.6 End stage renal disease; I50.22 Chronic systolic (congestive) heart failure; I48.1 Persistent atrial fibrillation; I42.8 Other cardiomyopathies; I25.5 Ischemic cardiomyopathy; I70.0 Atherosclerosis of aorta; J44.9 Chronic obstructive pulmonary disease, unspecified; K21.9 Gastro-esophageal reflux disease without esophagitis; E78.5 Hyperlipidemia, unspecified; E78.00 Pure hypercholesterolemia, unspecified; E03.9 Hypothyroidism, unspecified; E11.41 Type 2 diabetes mellitus with diabetic mononeuropathy; F31.9 Bipolar disorder, unspecified; M19.072 Primary osteoarthritis, left ankle and foot; G58.9 Mononeuropathy, unspecified; Z87.891 Personal history of nicotine dependence; Z90.49 Acquired absence of other specified parts of digestive tract; Z79.899 Other long term (current) drug therapy; Z95.810 Presence of automatic (implantable) cardiac defibrillator; Z95.5 Presence of coronary angioplasty implant and graft
CPT/HCPCS: 96365; 96366; G0463; J1250; J1642

== ENCOUNTER → 2019-04-26 | Outpatient (CLI) | payer OTHER ==
[2019-04-26] VITALS (10 sets, daily range): BP systolic 86–123; BP diastolic 45–69
[~2019-04-26] MED LIST changes: +CYANOCOBALAMIN (B-12) 1000 MCG/1 ML VIAL IM ONE; +CYANOCOBALAMIN (B-12) 1000 MCG/1 ML VIAL ONE; -EZET10TA22 PO; +EZET10TA6 PO; +HYDR-4683 PO; -HYDR-4833 PO; -POTA-220 PO; +POTA20TA53 PO
--- NOTE | 2019-04-26 07:30 | NUR ---
PT. TO CHF CLINIC FOR DOBUTAMINE INFUSION PER MD ORDER. PT. STATES HE FEELS BETTER SINCE LAST TX. ORDERS RECEIVED AND CARRIED OUT. SEE NSG ASSESS.
--- NOTE | 2019-04-26 07:40 | NUR ---
Clinic Provider Clinic Provider into see pt with new orders received and carried out. Dobutamine gtt started at {5}mcg/kg/hr per MD order.
--- NOTE | 2019-04-26 07:45 | NUR ---
MEDS: PT. MEDICATED WITH VIT. B12 1000MCG IM RT DELT. PER MD ORDER.
--- NOTE | 2019-04-26 10:53 | NUR ---
[facility] CLINIC Discharge Instructions See e-MAR for any mediations given with this visit. Patient education given on disease process. Patient verbalized understanding. Previous labs reviewed. Patient discharged in stable condition with after care instructions and follow up appointment. NOTE DOBUTAMINE [id number] ADMIN BY GISELA ALVAREZ B12 IM R DELTOID ADMIN BY GISELA ALVAREZ HEPARIN ADMIN BY MACY ALVAREZ
== END | disposition home or self-care (01) ==
LOC: CHF HDHVI 07:54
PROVIDERS: ATTEND Internal Medicine Cardiovascular Disease
DX: I13.2 Hypertensive heart and chronic kidney disease with heart failure and with stage 5 chronic kidney disease, or end stage renal disease (principal); E11.22 Type 2 diabetes mellitus with diabetic chronic kidney disease; N18.6 End stage renal disease; I50.22 Chronic systolic (congestive) heart failure; D64.9 Anemia, unspecified; I42.8 Other cardiomyopathies; I25.10 Atherosclerotic heart disease of native coronary artery without angina pectoris; I25.2 Old myocardial infarction; I70.0 Atherosclerosis of aorta; I48.1 Persistent atrial fibrillation; J44.9 Chronic obstructive pulmonary disease, unspecified; F31.9 Bipolar disorder, unspecified; K21.9 Gastro-esophageal reflux disease without esophagitis; E78.5 Hyperlipidemia, unspecified; E03.9 Hypothyroidism, unspecified; E11.41 Type 2 diabetes mellitus with diabetic mononeuropathy; E11.319 Type 2 diabetes mellitus with unspecified diabetic retinopathy without macular edema; E78.00 Pure hypercholesterolemia, unspecified; G89.29 Other chronic pain; M19.072 Primary osteoarthritis, left ankle and foot; Z79.899 Other long term (current) drug therapy; Z95.810 Presence of automatic (implantable) cardiac defibrillator; Z79.01 Long term (current) use of anticoagulants; Z87.891 Personal history of nicotine dependence; Z90.49 Acquired absence of other specified parts of digestive tract; Z95.5 Presence of coronary angioplasty implant and graft; Z85.038 Personal history of other malignant neoplasm of large intestine
CPT/HCPCS: 96365; 96366; 96372; G0463; J1250; J1642; J3420

== ENCOUNTER → 2019-04-29 | Outpatient (CLI) | payer OTHER ==
[2019-04-29] VITALS (7 sets, daily range): BP systolic 92–117; BP diastolic 47–68
[~2019-04-29] VITALS: Ht 30.5 cm; Wt 89.8 kg
[~2019-04-29] MED LIST changes: -CYANOCOBALAMIN (B-12) 1000 MCG/1 ML VIAL IM ONE; -CYANOCOBALAMIN (B-12) 1000 MCG/1 ML VIAL ONE
--- NOTE | 2019-04-29 07:30 | NUR ---
CHF PT ARRIVED AT THE CHF CLINIC FOR WEEKLY THERAPY SESSION. PT A/O X 3 0 DISTRESS NO PAIN. VITAL SIGNS OBTAINED
--- NOTE | 2019-04-29 07:45 | NUR ---
Clinic Provider Clinic Provider Updated on pt status new orders received and carried out. Dobutamine gtt started at {5}mcg/kg/hr per MD order.
--- NOTE | 2019-04-29 10:45 | NUR ---
CHF INFUSION COMPLETED. TOLERATED WELL VS WNL. WITHOUT DISTRESS OR DISCOMFORT. Ayah Cath Removal Quinones needle D/C'd after Heparin flush per protocol. See e-MAR for medications given during this visit. Sterile occlusive dressing to site. Patient tolerated procedure well. Site benign post infusion. Discharge Instructions See e-MAR for any mediations given with this visit. Patient education given on disease process. Patient verbalized understanding. Previous labs reviewed. Patient discharged in stable condition with after care instructions and follow up appointment FOR 05/01/19 MEDICATION ADMINISTRATION DOBUTAMINE GTT AT 5 MCG/KG/MIN START AT 0747/STOP AT 1044 (27.06 ML/HR) HEPARIN 500 UNITS IVP AT 1044
[2019-04-29 13:21] LABS: Potassium 4.1 mmol/L (3.5-5.1)
== END | disposition home or self-care (01) ==
LOC: CHF HDHVI 07:54
PROVIDERS: ATTEND Internal Medicine Cardiovascular Disease
DX: I13.2 Hypertensive heart and chronic kidney disease with heart failure and with stage 5 chronic kidney disease, or end stage renal disease (principal); E11.22 Type 2 diabetes mellitus with diabetic chronic kidney disease; N18.6 End stage renal disease; I50.22 Chronic systolic (congestive) heart failure; E87.6 Hypokalemia; R94.4 Abnormal results of kidney function studies; I25.10 Atherosclerotic heart disease of native coronary artery without angina pectoris; I25.2 Old myocardial infarction; I70.0 Atherosclerosis of aorta; I48.1 Persistent atrial fibrillation; J44.9 Chronic obstructive pulmonary disease, unspecified; K21.9 Gastro-esophageal reflux disease without esophagitis; E78.5 Hyperlipidemia, unspecified; E03.9 Hypothyroidism, unspecified; E78.00 Pure hypercholesterolemia, unspecified; E11.41 Type 2 diabetes mellitus with diabetic mononeuropathy; E11.319 Type 2 diabetes mellitus with unspecified diabetic retinopathy without macular edema; F31.9 Bipolar disorder, unspecified; G89.29 Other chronic pain; M19.072 Primary osteoarthritis, left ankle and foot; Z90.49 Acquired absence of other specified parts of digestive tract; Z87.891 Personal history of nicotine dependence; Z86.73 Personal history of transient ischemic attack (TIA), and cerebral infarction without residual deficits; Z95.1 Presence of aortocoronary bypass graft; Z95.5 Presence of coronary angioplasty implant and graft; Z95.810 Presence of automatic (implantable) cardiac defibrillator; Z79.899 Other long term (current) drug therapy; Z79.01 Long term (current) use of anticoagulants; Z85.038 Personal history of other malignant neoplasm of large intestine
CPT/HCPCS: 36415; 82565; 83880; 84132; 84520; 96365; 96366; G0463; J1250; J1642

== ENCOUNTER → 2019-05-01 | Outpatient (CLI) | payer OTHER ==
[2019-05-01] VITALS (10 sets, daily range): BP systolic 96–127; BP diastolic 46–71
--- NOTE | 2019-05-01 07:35 | NUR ---
PT. TO [facility]F CLINIC FOR DOBUTAMINE INFUSION PER MD ORDER. SEE NSG ASSESS. ORDERS RECEIVED AND CARRIED OUT.
--- NOTE | 2019-05-01 07:40 | NUR ---
Aayh Cath Insertion 20 gauge Ayah Cath inserted using sterile technique in the upper chest with occlusive dressing over saucedo needle. Patient tolerated procedure well. See e-MAR for medications given during this visit.
--- NOTE | 2019-05-01 07:52 | NUR ---
Clinic Provider Clinic Provider into see pt with new orders received and carried out. Dobutamine gtt started at {5}mcg/kg/hr per MD order.
--- NOTE | 2019-05-01 11:00 | NUR ---
CHF Clinic Discharge Instructions See e-MAR for any mediations given with this visit. Patient education given on disease process. Patient verbalized understanding. Previous labs reviewed. Patient discharged in stable condition with after care instructions and follow up appointment on Monday. Note Dobutamine [id number] admin by Roscoe ALVAREZ. Heparin admin by Aisha ALVAREZ
== END | disposition home or self-care (01) ==
LOC: CHF HDHVI 07:48
PROVIDERS: ATTEND Internal Medicine Cardiovascular Disease
DX: I13.2 Hypertensive heart and chronic kidney disease with heart failure and with stage 5 chronic kidney disease, or end stage renal disease (principal); I50.23 Acute on chronic systolic (congestive) heart failure; I50.84 End stage heart failure; N18.6 End stage renal disease; I25.10 Atherosclerotic heart disease of native coronary artery without angina pectoris; F31.9 Bipolar disorder, unspecified; J44.9 Chronic obstructive pulmonary disease, unspecified; K21.9 Gastro-esophageal reflux disease without esophagitis; E78.5 Hyperlipidemia, unspecified; E03.9 Hypothyroidism, unspecified; I25.2 Old myocardial infarction; G89.29 Other chronic pain; M19.072 Primary osteoarthritis, left ankle and foot; E78.00 Pure hypercholesterolemia, unspecified; E11.22 Type 2 diabetes mellitus with diabetic chronic kidney disease; E11.41 Type 2 diabetes mellitus with diabetic mononeuropathy; E11.319 Type 2 diabetes mellitus with unspecified diabetic retinopathy without macular edema; Z90.49 Acquired absence of other specified parts of digestive tract; Z79.01 Long term (current) use of anticoagulants; Z79.899 Other long term (current) drug therapy; Z85.038 Personal history of other malignant neoplasm of large intestine; Z87.891 Personal history of nicotine dependence; Z95.1 Presence of aortocoronary bypass graft; Z95.810 Presence of automatic (implantable) cardiac defibrillator; Z95.5 Presence of coronary angioplasty implant and graft; Z86.73 Personal history of transient ischemic attack (TIA), and cerebral infarction without residual deficits
CPT/HCPCS: 96365; 96366; G0463; J1250; J1642

== ENCOUNTER → 2019-05-03 | Outpatient (CLI) | payer OTHER ==
[2019-05-03] VITALS (8 sets, daily range): BP systolic 95–124; BP diastolic 49–71
--- NOTE | 2019-05-03 07:30 | NUR ---
IN TO CLINIC FOR SCHEDULED INFUSION. WITHOUT DISTRESS OR DISCOMFORT. Ayah Cath Insertion 20 gauge Ayah Cath inserted using sterile technique in the upper chest with occlusive dressing over saucedo needle. Patient tolerated procedure well. Ordered labs drawn and sent. See e-MAR for medications given during this visit.
--- NOTE | 2019-05-03 07:48 | NUR ---
Clinic Provider Clinic Provider into see pt with new orders received and carried out. Dobutamine gtt started at {5}mcg/kg/hr per MD order.
--- NOTE | 2019-05-03 09:36 | NUR ---
AFFECT WITHOUT DISTRESS OR DISCOMFORT. VS WNL. TOLERATING DOBUTAMINE WELL.
--- NOTE | 2019-05-03 11:00 | NUR ---
Discharge Instructions See e-MAR for any mediations given with this visit. Patient education given on disease process. Patient verbalized understanding. Previous labs reviewed. Patient discharged in stable condition with after care instructions and follow up appointment. MEDICATIONS 0748 START TIEM DOBUTAMINE DRIP 5MCG/KG/MIN STOP TIME 1048 1050 HEPARIN 500 UNITS IVP X 1
== END | disposition home or self-care (01) ==
LOC: CHF HDHVI 07:34
PROVIDERS: ATTEND Internal Medicine Cardiovascular Disease
DX: I13.2 Hypertensive heart and chronic kidney disease with heart failure and with stage 5 chronic kidney disease, or end stage renal disease (principal); I50.23 Acute on chronic systolic (congestive) heart failure; I50.84 End stage heart failure; N18.6 End stage renal disease; I25.10 Atherosclerotic heart disease of native coronary artery without angina pectoris; F31.9 Bipolar disorder, unspecified; J44.9 Chronic obstructive pulmonary disease, unspecified; K21.9 Gastro-esophageal reflux disease without esophagitis; E78.5 Hyperlipidemia, unspecified; E03.9 Hypothyroidism, unspecified; I25.2 Old myocardial infarction; G89.29 Other chronic pain; M19.072 Primary osteoarthritis, left ankle and foot; E78.00 Pure hypercholesterolemia, unspecified; E11.22 Type 2 diabetes mellitus with diabetic chronic kidney disease; E11.41 Type 2 diabetes mellitus with diabetic mononeuropathy; E11.319 Type 2 diabetes mellitus with unspecified diabetic retinopathy without macular edema; I48.1 Persistent atrial fibrillation; M19.90 Unspecified osteoarthritis, unspecified site; Z90.49 Acquired absence of other specified parts of digestive tract; Z79.01 Long term (current) use of anticoagulants; Z79.899 Other long term (current) drug therapy; Z85.038 Personal history of other malignant neoplasm of large intestine; Z87.891 Personal history of nicotine dependence; Z95.810 Presence of automatic (implantable) cardiac defibrillator; Z95.1 Presence of aortocoronary bypass graft; Z95.5 Presence of coronary angioplasty implant and graft; Z86.73 Personal history of transient ischemic attack (TIA), and cerebral infarction without residual deficits
CPT/HCPCS: 96365; 96366; G0463; J1250; J1642

== ENCOUNTER → 2019-05-06 | Outpatient (CLI) | payer OTHER ==
[2019-05-06] VITALS (9 sets, daily range): BP systolic 109–129; BP diastolic 54–75
[~2019-05-06] VITALS: Ht 30.5 cm; Wt 89.7 kg
[~2019-05-06] MED LIST changes: -DOBUTamine 1000MCG/ML 250 ML IV ONE
--- NOTE | 2019-05-06 07:30 | NUR ---
PT. TO CHF CLINIC FOR DOBUTAMINE INFUSION PER MD ORDER. PT. STATES HE HAD A GOOD WEEKEND. ORDERS RECEIVED AND CARRIED OUT.
[2019-05-06] MEDS: DOBUTamine 1000MCG/ML 250 ML IV ONE ×2 (07:44→09:32)
--- NOTE | 2019-05-06 07:44 | NUR ---
Clinic Provider Clinic Provider into see pt with new orders received and carried out. Dobutamine gtt started at {5}mcg/kg/hr per MD order.
--- NOTE | 2019-05-06 10:50 | NUR ---
CHF Clinic Discharge Instructions See e-MAR for any mediations given with this visit. Patient education given on disease process. Patient verbalized understanding. Previous labs reviewed. Patient discharged in stable condition with after care instructions and follow up appointment on Monday. Note Dobutamine [id number] admin by Roscoe ALVAREZ Heparin admin by Aisha ALVAREZ
[2019-05-06 11:57] LABS: Basophils # (auto) 0 uL; Basophils % (auto) 0.7 % (0.0-2.0); Eosinophils # (auto) 0.3 uL; Hematocrit 43.5 % (41.0-53.0); Hemoglobin 14.5 g/dL (13.5-17.5); Lymphocytes # (auto) 1.3 uL; Lymphocytes % (auto) 35.5 % (10.0-50.0); Mean Corpuscular Hemoglobin 32.4 pg (28.0-32.0); Mean Corpuscular Hgb Conc. 33.3 g/dL (32.0-36.0); Mean Corpuscular Volume 97.5 fL (80.0-100.0); Monocytes # (auto) 0.6 uL; Monocytes % (auto) 16.5 % (0.0-12.0); Neutrophils # (auto) 1.5 uL; Neutrophils % (auto) 39.3 % (37.0-80.0); Platelet Count (auto) 151 10^3/uL (140-450); Red Blood Cells 4.46 10^6/uL (4.5-5.90); Red Cell Distribution Width 13.5 % (11.8-14.3); White Blood Cell 3.7 10^3/uL (4.4-10.8)
[2019-05-06 13:14] LABS: Potassium 4.4 mmol/L (3.5-5.1)
[2019-05-06 13:37] LABS: Albumin 3.7 g/dL (3.4-5.0); Bilirubin, Total 0.6 mg/dL (0.2-1.0); Calcium 8.7 mg/dL (8.5-10.1); Magnesium 2.7 mg/dL (1.6-2.6); Total Protein 7.2 g/dL (6.4-8.2)
== END | disposition home or self-care (01) ==
LOC: CHF HDHVI 07:33
PROVIDERS: ATTEND Internal Medicine Cardiovascular Disease
DX: I13.2 Hypertensive heart and chronic kidney disease with heart failure and with stage 5 chronic kidney disease, or end stage renal disease (principal); I50.23 Acute on chronic systolic (congestive) heart failure; I50.84 End stage heart failure; N18.6 End stage renal disease; E83.40 Disorders of magnesium metabolism, unspecified; D64.9 Anemia, unspecified; I25.10 Atherosclerotic heart disease of native coronary artery without angina pectoris; F32.9 Major depressive disorder, single episode, unspecified; J44.9 Chronic obstructive pulmonary disease, unspecified; K21.9 Gastro-esophageal reflux disease without esophagitis; E78.5 Hyperlipidemia, unspecified; E03.9 Hypothyroidism, unspecified; I25.2 Old myocardial infarction; G89.29 Other chronic pain; I48.1 Persistent atrial fibrillation; M19.072 Primary osteoarthritis, left ankle and foot; E78.00 Pure hypercholesterolemia, unspecified; E11.41 Type 2 diabetes mellitus with diabetic mononeuropathy; E11.319 Type 2 diabetes mellitus with unspecified diabetic retinopathy without macular edema; Z90.49 Acquired absence of other specified parts of digestive tract; Z79.01 Long term (current) use of anticoagulants; Z79.899 Other long term (current) drug therapy; Z86.73 Personal history of transient ischemic attack (TIA), and cerebral infarction without residual deficits; Z95.810 Presence of automatic (implantable) cardiac defibrillator; Z95.5 Presence of coronary angioplasty implant and graft
CPT/HCPCS: 36415; 80053; 83735; 83880; 85025; 96365; 96366; G0463; J1642

== ENCOUNTER → 2019-05-08 | Outpatient (CLI) | payer OTHER ==
[~2019-05-08] VITALS: Ht 180.3 cm; Wt 89.8 kg
[~2019-05-08] MED LIST changes: +DOBUTamine 1000MCG/ML 250 ML IV ONE
--- NOTE | 2019-05-08 08:00 | NUR ---
PT FOR STRESS TEST THIS AM. INFUSION DEFERRED FOR STRESS TEST.
[2019-05-08 10:24] VITALS: BP 124/73
--- NOTE | 2019-05-08 10:24 | NUR ---
START DOBUTAMINE GTT TO RIGHT CHEST PORT. STRESS TEST COMPLETED AND PT RECOVERED. Clinic Provider Clinic Provider into see pt with new orders received and carried out. Dobutamine gtt started at {5}mcg/kg/hr per MD order.
[2019-05-08 10:45] VITALS: BP 112/63
--- NOTE | 2019-05-08 12:45 | NUR ---
Ayah Cath Removal Quinones needle D/C'd after Heparin flush per protocol. See e-MAR for medications given during this visit. Sterile occlusive dressing to site. Patient tolerated procedure well. Site benign post infusion. NOTE: []Discharge Instructions See e-MAR for any mediations given with this visit. Patient education given on disease process. Patient verbalized understanding. Previous labs reviewed. Patient discharged in stable condition with after care instructions and follow up appointment FOR Monday05/10/19 MEDICATION ADMINISTRATION DOBUTAMINE GTT AT 5 MCG/KG/MIN START AT 1024/STOP AT 1240 (26.7 ML/HR) HEPARIN 500 UNITS IVP TO RIGHT CHEST PORT AT 1240
[2019-05-08 13:22] VITALS: BP 124/74
== END | disposition home or self-care (01) ==
LOC: Rad HDHVI 07:35
PROVIDERS: ATTEND Internal Medicine Cardiovascular Disease
DX: I13.2 Hypertensive heart and chronic kidney disease with heart failure and with stage 5 chronic kidney disease, or end stage renal disease (principal); I50.22 Chronic systolic (congestive) heart failure; N18.6 End stage renal disease; I50.84 End stage heart failure; I48.91 Unspecified atrial fibrillation; E83.40 Disorders of magnesium metabolism, unspecified; D64.9 Anemia, unspecified; I25.10 Atherosclerotic heart disease of native coronary artery without angina pectoris; F31.9 Bipolar disorder, unspecified; J44.9 Chronic obstructive pulmonary disease, unspecified; K21.9 Gastro-esophageal reflux disease without esophagitis; E78.5 Hyperlipidemia, unspecified; E03.9 Hypothyroidism, unspecified; I25.2 Old myocardial infarction; G89.29 Other chronic pain; I48.1 Persistent atrial fibrillation; M19.072 Primary osteoarthritis, left ankle and foot; E11.22 Type 2 diabetes mellitus with diabetic chronic kidney disease; E78.00 Pure hypercholesterolemia, unspecified; E11.41 Type 2 diabetes mellitus with diabetic mononeuropathy; E11.51 Type 2 diabetes mellitus with diabetic peripheral angiopathy without gangrene; E11.319 Type 2 diabetes mellitus with unspecified diabetic retinopathy without macular edema; Z95.810 Presence of automatic (implantable) cardiac defibrillator; Z90.49 Acquired absence of other specified parts of digestive tract; Z79.01 Long term (current) use of anticoagulants; Z79.899 Other long term (current) drug therapy; Z85.038 Personal history of other malignant neoplasm of large intestine; Z87.891 Personal history of nicotine dependence; Z95.1 Presence of aortocoronary bypass graft; Z95.5 Presence of coronary angioplasty implant and graft; Z86.73 Personal history of transient ischemic attack (TIA), and cerebral infarction without residual deficits
CPT/HCPCS: 78452; 93017; 96365; 96366; 96375; A9500; G0463; J1250; J1642; 96374

== ENCOUNTER → 2019-05-10 | Outpatient (CLI) | payer OTHER ==
[2019-05-10] VITALS (8 sets, daily range): BP systolic 91–122; BP diastolic 51–68
--- NOTE | 2019-05-10 07:30 | NUR ---
PT. TO CHF CLINIC FOR DOBUTAMINE INFUSION PER MD ORDER . SEE NSG ASSESS, WITH ORDERS RECEIVED AND CARRIED OUT.
--- NOTE | 2019-05-10 07:40 | NUR ---
Clinic Provider Clinic Provider into see pt with new orders received and carried out. Dobutamine gtt started at {5}mcg/kg/hr per MD order.
--- NOTE | 2019-05-10 10:50 | NUR ---
[facility] CLINIC Discharge Instructions See e-MAR for any mediations given with this visit. Patient education given on disease process. Patient verbalized understanding. Previous labs reviewed. Patient discharged in stable condition with after care instructions and follow up appointment. NOTE DOBUTAMINE [id number] ADMIN BY GISELA ALVAREZ HEPARIN ADMIN BY MACY ALVAREZ
== END | disposition home or self-care (01) ==
LOC: CHF HDHVI 07:33
PROVIDERS: ATTEND Internal Medicine Cardiovascular Disease
DX: I25.10 Atherosclerotic heart disease of native coronary artery without angina pectoris (principal); I13.2 Hypertensive heart and chronic kidney disease with heart failure and with stage 5 chronic kidney disease, or end stage renal disease; E11.22 Type 2 diabetes mellitus with diabetic chronic kidney disease; N18.6 End stage renal disease; I50.22 Chronic systolic (congestive) heart failure; I42.8 Other cardiomyopathies; I48.1 Persistent atrial fibrillation; I25.2 Old myocardial infarction; J44.9 Chronic obstructive pulmonary disease, unspecified; E11.41 Type 2 diabetes mellitus with diabetic mononeuropathy; E11.319 Type 2 diabetes mellitus with unspecified diabetic retinopathy without macular edema; K21.9 Gastro-esophageal reflux disease without esophagitis; E78.5 Hyperlipidemia, unspecified; E78.00 Pure hypercholesterolemia, unspecified; E03.9 Hypothyroidism, unspecified; G89.29 Other chronic pain; F31.9 Bipolar disorder, unspecified; M19.072 Primary osteoarthritis, left ankle and foot; Z87.891 Personal history of nicotine dependence; Z79.01 Long term (current) use of anticoagulants; Z95.810 Presence of automatic (implantable) cardiac defibrillator; Z95.5 Presence of coronary angioplasty implant and graft; Z79.899 Other long term (current) drug therapy; Z86.73 Personal history of transient ischemic attack (TIA), and cerebral infarction without residual deficits; Z90.49 Acquired absence of other specified parts of digestive tract; Z95.1 Presence of aortocoronary bypass graft
CPT/HCPCS: 96365; 96366; G0463; J1250; J1642

== ENCOUNTER → 2019-05-13 | Outpatient (CLI) | payer OTHER ==
[2019-05-13] VITALS (9 sets, daily range): BP systolic 96–139; BP diastolic 43–74
--- NOTE | 2019-05-13 07:30 | NUR ---
CHF PT ARRIVED TO THE CHF CLINIC FOR WEEKLY THERAPY , A/O X 3 , V/S OBTAINED O DISTRESS NOTED
--- NOTE | 2019-05-13 10:45 | NUR ---
Discharge Instructions See e-MAR for any mediations given with this visit. Patient education given on disease process. Patient verbalized understanding. Previous labs reviewed. Patient discharged in stable condition with after care instructions and follow up appointment. MEDICATIONS 0740 DOBUTAMINE DRIP START TIME 1040 DOBUTAMINE DRIP STOP TIME
== END | disposition home or self-care (01) ==
LOC: CHF HDHVI 07:52
PROVIDERS: ATTEND Internal Medicine Cardiovascular Disease
DX: I25.10 Atherosclerotic heart disease of native coronary artery without angina pectoris (principal); I13.2 Hypertensive heart and chronic kidney disease with heart failure and with stage 5 chronic kidney disease, or end stage renal disease; E11.22 Type 2 diabetes mellitus with diabetic chronic kidney disease; N18.6 End stage renal disease; I50.22 Chronic systolic (congestive) heart failure; I42.8 Other cardiomyopathies; I48.1 Persistent atrial fibrillation; I25.2 Old myocardial infarction; J44.9 Chronic obstructive pulmonary disease, unspecified; E11.41 Type 2 diabetes mellitus with diabetic mononeuropathy; E11.51 Type 2 diabetes mellitus with diabetic peripheral angiopathy without gangrene; K21.9 Gastro-esophageal reflux disease without esophagitis; E78.00 Pure hypercholesterolemia, unspecified; E78.5 Hyperlipidemia, unspecified; E03.9 Hypothyroidism, unspecified; M19.072 Primary osteoarthritis, left ankle and foot; F31.9 Bipolar disorder, unspecified; G89.29 Other chronic pain; Z79.01 Long term (current) use of anticoagulants; Z95.1 Presence of aortocoronary bypass graft; Z87.891 Personal history of nicotine dependence; Z95.5 Presence of coronary angioplasty implant and graft; Z86.73 Personal history of transient ischemic attack (TIA), and cerebral infarction without residual deficits; Z95.810 Presence of automatic (implantable) cardiac defibrillator; Z90.49 Acquired absence of other specified parts of digestive tract; Z79.899 Other long term (current) drug therapy
CPT/HCPCS: 96365; 96366; G0463; J1250; J1642

== ENCOUNTER → 2019-05-15 | Outpatient (CLI) | payer OTHER ==
--- NOTE | 2019-05-15 07:30 | NUR ---
PT. TO [facility]F CLINIC FOR DOBUTAMINE INFUSION PER MD ORDER. SEE NSG ASSESS. ORDERS RECEIVED AND CARRIED OUT.
[2019-05-15 07:44] VITALS: BP 110/60
--- NOTE | 2019-05-15 07:44 | NUR ---
Clinic Provider Clinic Provider into see pt with new orders received and carried out. Dobutamine gtt started at {5}mcg/kg/hr per MD order.
[2019-05-15 08:00] VITALS: BP 107/57
[2019-05-15 08:15] VITALS: BP 123/66
[2019-05-15 08:30] VITALS: BP 103/58
[2019-05-15 08:45] VITALS: BP 106/60
[2019-05-15 10:45] VITALS: BP 126/68
--- NOTE | 2019-05-15 10:45 | NUR ---
Discharge Instructions See e-MAR for any mediations given with this visit. Patient education given on disease process. Patient verbalized understanding. Previous labs reviewed. Patient discharged in stable condition with after care instructions and follow up appointment. MEDICATIONS 0744 START TIME DOBUTAMINE DRIP 5 MCG/KG/MIN 1044 STOP TIME DOBUTAMINIE DRIP 1043 HEPARIN 500 UNITS IVP X 1
== END | disposition home or self-care (01) ==
LOC: CHF HDHVI 08:19
PROVIDERS: ATTEND Internal Medicine Cardiovascular Disease
DX: I13.2 Hypertensive heart and chronic kidney disease with heart failure and with stage 5 chronic kidney disease, or end stage renal disease (principal); E11.22 Type 2 diabetes mellitus with diabetic chronic kidney disease; N18.6 End stage renal disease; I50.22 Chronic systolic (congestive) heart failure; I42.8 Other cardiomyopathies; I25.2 Old myocardial infarction; I48.1 Persistent atrial fibrillation; F31.9 Bipolar disorder, unspecified; J44.9 Chronic obstructive pulmonary disease, unspecified; K21.9 Gastro-esophageal reflux disease without esophagitis; E78.5 Hyperlipidemia, unspecified; E03.9 Hypothyroidism, unspecified; G89.29 Other chronic pain; M19.072 Primary osteoarthritis, left ankle and foot; E78.00 Pure hypercholesterolemia, unspecified; E11.41 Type 2 diabetes mellitus with diabetic mononeuropathy; E11.51 Type 2 diabetes mellitus with diabetic peripheral angiopathy without gangrene; E11.319 Type 2 diabetes mellitus with unspecified diabetic retinopathy without macular edema; Z79.01 Long term (current) use of anticoagulants; Z87.891 Personal history of nicotine dependence; Z95.1 Presence of aortocoronary bypass graft; Z79.899 Other long term (current) drug therapy; Z95.810 Presence of automatic (implantable) cardiac defibrillator; Z95.5 Presence of coronary angioplasty implant and graft; Z86.73 Personal history of transient ischemic attack (TIA), and cerebral infarction without residual deficits; Z90.49 Acquired absence of other specified parts of digestive tract
CPT/HCPCS: 96365; 96366; G0463; J1250; J1642

== ENCOUNTER → 2019-05-17 | Outpatient (CLI) | payer OTHER ==
[2019-05-17] VITALS (10 sets, daily range): BP systolic 96–126; BP diastolic 52–69
--- NOTE | 2019-05-17 07:30 | NUR ---
PT. TO CHF CLINIC FOR DOBUTAMINE INFUSION PER MD ORDER. PT. STATES HE'S FEELING BETTER SINCE LAST TX. SEE NSG ASSESS.
--- NOTE | 2019-05-17 07:38 | NUR ---
Clinic Provider Clinic Provider into see pt with new orders received and carried out. Dobutamine gtt started at {5}mcg/kg/hr per MD order.
--- NOTE | 2019-05-17 10:40 | NUR ---
[facility]F CLINIC Discharge Instructions See e-MAR for any mediations given with this visit. Patient education given on disease process. Patient verbalized understanding. Previous labs reviewed. Patient discharged in stable condition with after care instructions and follow up appointment. NOTE DOBUTAMINE [id number] ADMIN BY GISELA ALVAREZ HEPARIN ADMIN BY MACY ALVAREZ
== END | disposition home or self-care (01) ==
LOC: CHF HDHVI 07:34
PROVIDERS: ATTEND Internal Medicine Cardiovascular Disease
DX: I25.10 Atherosclerotic heart disease of native coronary artery without angina pectoris (principal); I13.2 Hypertensive heart and chronic kidney disease with heart failure and with stage 5 chronic kidney disease, or end stage renal disease; E11.22 Type 2 diabetes mellitus with diabetic chronic kidney disease; I50.22 Chronic systolic (congestive) heart failure; N18.6 End stage renal disease; I48.1 Persistent atrial fibrillation; I25.2 Old myocardial infarction; J44.9 Chronic obstructive pulmonary disease, unspecified; I42.8 Other cardiomyopathies; K21.9 Gastro-esophageal reflux disease without esophagitis; E78.5 Hyperlipidemia, unspecified; E03.9 Hypothyroidism, unspecified; E11.41 Type 2 diabetes mellitus with diabetic mononeuropathy; E11.51 Type 2 diabetes mellitus with diabetic peripheral angiopathy without gangrene; E11.319 Type 2 diabetes mellitus with unspecified diabetic retinopathy without macular edema; F31.9 Bipolar disorder, unspecified; G89.29 Other chronic pain; M19.072 Primary osteoarthritis, left ankle and foot; E78.00 Pure hypercholesterolemia, unspecified; Z85.038 Personal history of other malignant neoplasm of large intestine; Z90.49 Acquired absence of other specified parts of digestive tract; Z95.5 Presence of coronary angioplasty implant and graft; Z86.73 Personal history of transient ischemic attack (TIA), and cerebral infarction without residual deficits; Z95.1 Presence of aortocoronary bypass graft; Z87.891 Personal history of nicotine dependence; Z79.899 Other long term (current) drug therapy; Z79.01 Long term (current) use of anticoagulants; Z95.810 Presence of automatic (implantable) cardiac defibrillator
CPT/HCPCS: 96365; 96366; G0463; J1250; J1642

== ENCOUNTER → 2019-05-20 | Outpatient (CLI) | payer OTHER ==
[~2019-05-20] VITALS: Ht 30.5 cm; Wt 88.9 kg
[2019-05-20] VITALS (9 sets, daily range): BP systolic 92–121; BP diastolic 50–67
[~2019-05-20] MED LIST changes: +CYANOCOBALAMIN (B-12) 1000 MCG/1 ML VIAL IM ONE; +CYANOCOBALAMIN (B-12) 1000 MCG/1 ML VIAL ONE; +KETOROLAC TROMETH 60MG/2ML VIAL IM ONE; +KETOROLAC TROMETH 60MG/2ML VIAL ONE
== END | disposition home or self-care (01) ==
LOC: CHF HDHVI 07:49
PROVIDERS: ATTEND Internal Medicine Cardiovascular Disease
DX: I13.2 Hypertensive heart and chronic kidney disease with heart failure and with stage 5 chronic kidney disease, or end stage renal disease (principal); N18.6 End stage renal disease; I50.84 End stage heart failure; D64.9 Anemia, unspecified; I25.10 Atherosclerotic heart disease of native coronary artery without angina pectoris; F31.9 Bipolar disorder, unspecified; J44.9 Chronic obstructive pulmonary disease, unspecified; I50.22 Chronic systolic (congestive) heart failure; K21.9 Gastro-esophageal reflux disease without esophagitis; E78.5 Hyperlipidemia, unspecified; E03.9 Hypothyroidism, unspecified; I25.2 Old myocardial infarction; G89.29 Other chronic pain; I48.1 Persistent atrial fibrillation; M19.072 Primary osteoarthritis, left ankle and foot; E78.00 Pure hypercholesterolemia, unspecified; E11.22 Type 2 diabetes mellitus with diabetic chronic kidney disease; E11.51 Type 2 diabetes mellitus with diabetic peripheral angiopathy without gangrene; E11.319 Type 2 diabetes mellitus with unspecified diabetic retinopathy without macular edema; E11.41 Type 2 diabetes mellitus with diabetic mononeuropathy; Z90.49 Acquired absence of other specified parts of digestive tract; Z79.01 Long term (current) use of anticoagulants; Z85.038 Personal history of other malignant neoplasm of large intestine; Z87.891 Personal history of nicotine dependence; Z95.1 Presence of aortocoronary bypass graft; Z95.5 Presence of coronary angioplasty implant and graft; Z86.73 Personal history of transient ischemic attack (TIA), and cerebral infarction without residual deficits; Z95.810 Presence of automatic (implantable) cardiac defibrillator
CPT/HCPCS: 93701; 96365; 96366; 96372; G0463; J1250; J1642; J1885; J3420

== ENCOUNTER → 2019-05-22 | Outpatient (CLI) | payer OTHER ==
[2019-05-22] VITALS (9 sets, daily range): BP systolic 97–131; BP diastolic 52–77
[~2019-05-22] MED LIST changes: -CYANOCOBALAMIN (B-12) 1000 MCG/1 ML VIAL IM ONE; -CYANOCOBALAMIN (B-12) 1000 MCG/1 ML VIAL ONE; -KETOROLAC TROMETH 60MG/2ML VIAL IM ONE; -KETOROLAC TROMETH 60MG/2ML VIAL ONE
--- NOTE | 2019-05-22 07:31 | NUR ---
Ayah Cath Insertion 20 gauge Ayah Cath inserted using sterile technique in the upper chest with occlusive dressing over saucedo needle. Patient tolerated procedure well. Clinic Provider Clinic Provider into see pt with new orders received and carried out. Dobutamine gtt started at {5}mcg/kg/hr per MD order. See e-MAR for medications given during this visit.
--- NOTE | 2019-05-22 10:40 | NUR ---
Discharge Instructions See e-MAR for any mediations given with this visit. Patient education given on disease process. Patient verbalized understanding. Previous labs reviewed. Patient discharged in stable condition with after care instructions and follow up appointment. MEDICATIONS 0731 START TIME DOBUTAMINE DRIP 5MCG/KG/MIN 1035 STOP TIME DOBUTAMINE DRIP 1036 HEPARIN 500 UNITS IVP X 1
== END | disposition home or self-care (01) ==
LOC: CHF HDHVI 07:38
PROVIDERS: ATTEND Internal Medicine Cardiovascular Disease
DX: I13.2 Hypertensive heart and chronic kidney disease with heart failure and with stage 5 chronic kidney disease, or end stage renal disease (principal); E11.22 Type 2 diabetes mellitus with diabetic chronic kidney disease; I50.22 Chronic systolic (congestive) heart failure; N18.6 End stage renal disease; I48.1 Persistent atrial fibrillation; I25.2 Old myocardial infarction; I27.21 Secondary pulmonary arterial hypertension; J44.9 Chronic obstructive pulmonary disease, unspecified; F31.9 Bipolar disorder, unspecified; I25.10 Atherosclerotic heart disease of native coronary artery without angina pectoris; K21.9 Gastro-esophageal reflux disease without esophagitis; E78.5 Hyperlipidemia, unspecified; E03.9 Hypothyroidism, unspecified; G89.29 Other chronic pain; M19.072 Primary osteoarthritis, left ankle and foot; E78.00 Pure hypercholesterolemia, unspecified; E11.41 Type 2 diabetes mellitus with diabetic mononeuropathy; E11.51 Type 2 diabetes mellitus with diabetic peripheral angiopathy without gangrene; E11.319 Type 2 diabetes mellitus with unspecified diabetic retinopathy without macular edema; I42.8 Other cardiomyopathies; F32.9 Major depressive disorder, single episode, unspecified; Z95.810 Presence of automatic (implantable) cardiac defibrillator; Z79.01 Long term (current) use of anticoagulants; Z79.899 Other long term (current) drug therapy; Z86.73 Personal history of transient ischemic attack (TIA), and cerebral infarction without residual deficits; Z87.891 Personal history of nicotine dependence; Z95.5 Presence of coronary angioplasty implant and graft; Z95.1 Presence of aortocoronary bypass graft; Z90.49 Acquired absence of other specified parts of digestive tract
CPT/HCPCS: 96365; 96366; G0463; J1250; J1642

== ENCOUNTER → 2019-05-24 | Outpatient (CLI) | payer OTHER ==
[2019-05-24] VITALS (8 sets, daily range): BP systolic 120–136; BP diastolic 64–82
[~2019-05-24] MED LIST changes: +CATHFLO ACTIVASE (ALTEPLASE) 2 MG VIAL IV ONE; +EZET10TA22 PO; -EZET10TA6 PO; -HYDR-4683 PO; +HYDR-4833 PO; +POTA-220 PO; -POTA20TA53 PO
--- NOTE | 2019-05-24 07:30 | NUR ---
PT. TO CHF CLINIC FOR DOBUTAMINE INFUSION PER MD ORDER. ORDERS ALSO RECEIVED FOR CATH-RIYA TO PC DUE TO INABILITY TO GET BLOOD FROM PC AND RESISTANCE IN FLUSHING WITH .9NS MULTIPLE TIMES. SEE NSG ASSESS. ORDERS RECEIVED AND CARRIED OUT.
--- NOTE | 2019-05-24 07:55 | NUR ---
MEDS: CATH-RIYA 2 MG IN 2CC STERILE WATER ADMINISTERED TO PC [place], AND TO REMAIN IN FOR 30 MIN.
--- NOTE | 2019-05-24 08:25 | NUR ---
PC NOW PATENT AFTER CATH-RIYA ASPIRATED WITH GOOD BLOOD FLOW RETURN.
--- NOTE | 2019-05-24 08:30 | NUR ---
LABS DRAWN AND SENT VIA PC AND SENT PER MD ORDER.
--- NOTE | 2019-05-24 08:33 | NUR ---
Clinic Provider Clinic Provider into see pt with new orders received and carried out. Dobutamine gtt started at {5}mcg/kg/hr per MD order.
[2019-05-24 11:45] LABS: BUN/Creatinine Ratio 14.7; Calcium 8.6 mg/dL (8.5-10.1); Magnesium 2.7 mg/dL (1.6-2.6); Potassium 4.3 mmol/L (3.5-5.1)
[2019-05-24 11:49] LABS: Hematocrit 41.7 % (41.0-53.0); Hemoglobin 14.2 g/dL (13.5-17.5); Mean Corpuscular Hemoglobin 33.2 pg (28.0-32.0); Mean Corpuscular Hgb Conc. 34.1 g/dL (32.0-36.0); Mean Corpuscular Volume 97.4 fL (80.0-100.0); Platelet Count (auto) 139 10^3/uL (140-450); Red Blood Cells 4.28 10^6/uL (4.5-5.90); Red Cell Distribution Width 13.3 % (11.8-14.3); White Blood Cell 3.6 10^3/uL (4.4-10.8)
[2019-05-24 12:13] LABS: Band Neutrophils % (manual) 0; Basophils % (manual) 0 (0.0-2.0)
[2019-05-24 12:14] LABS: Blast Cells 0; Metamyelocytes % 0; Myelocytes % 0; Promyelocytes % 0; Reactive Lymphocytes 0
[2019-05-24 16:26] LABS: Eosinophils % (manual) 6 (0-7); Lymphocytes % (manual) 30 (10.0-50.0); Monocytes % (manual) 19 (0-12)
== END | disposition home or self-care (01) ==
LOC: CHF HDHVI 07:47
PROVIDERS: ATTEND Internal Medicine Cardiovascular Disease
DX: I13.2 Hypertensive heart and chronic kidney disease with heart failure and with stage 5 chronic kidney disease, or end stage renal disease (principal); E11.22 Type 2 diabetes mellitus with diabetic chronic kidney disease; I50.22 Chronic systolic (congestive) heart failure; N18.6 End stage renal disease; D64.9 Anemia, unspecified; E83.40 Disorders of magnesium metabolism, unspecified; I42.8 Other cardiomyopathies; I25.10 Atherosclerotic heart disease of native coronary artery without angina pectoris; I25.2 Old myocardial infarction; I27.21 Secondary pulmonary arterial hypertension; K21.9 Gastro-esophageal reflux disease without esophagitis; J44.9 Chronic obstructive pulmonary disease, unspecified; E11.40 Type 2 diabetes mellitus with diabetic neuropathy, unspecified; E11.36 Type 2 diabetes mellitus with diabetic cataract; E11.51 Type 2 diabetes mellitus with diabetic peripheral angiopathy without gangrene; F31.9 Bipolar disorder, unspecified; E78.5 Hyperlipidemia, unspecified; E03.9 Hypothyroidism, unspecified; G89.29 Other chronic pain; M19.072 Primary osteoarthritis, left ankle and foot; E78.00 Pure hypercholesterolemia, unspecified; Z85.038 Personal history of other malignant neoplasm of large intestine; Z87.891 Personal history of nicotine dependence; Z95.1 Presence of aortocoronary bypass graft; Z95.810 Presence of automatic (implantable) cardiac defibrillator; Z90.49 Acquired absence of other specified parts of digestive tract; Z86.73 Personal history of transient ischemic attack (TIA), and cerebral infarction without residual deficits; Z79.01 Long term (current) use of anticoagulants; Z79.899 Other long term (current) drug therapy; Z95.5 Presence of coronary angioplasty implant and graft
CPT/HCPCS: 36415; 80048; 83735; 83880; 85007; 85027; 96365; 96366; G0463; J1250; J1642; J2997; 96361; 96374

== ENCOUNTER → 2019-05-27 | Outpatient (CLI) | payer OTHER ==
[~2019-05-27] VITALS: Ht 30.5 cm; Wt 89.4 kg
[2019-05-27] VITALS (9 sets, daily range): BP systolic 116–129; BP diastolic 59–72
[~2019-05-27] MED LIST changes: -CATHFLO ACTIVASE (ALTEPLASE) 2 MG VIAL IV ONE; -EZET10TA22 PO; +EZET10TA6 PO; +HYDR-4683 PO; -HYDR-4833 PO; -POTA-220 PO; +POTA20TA53 PO
--- NOTE | 2019-05-27 07:45 | NUR ---
CHF PT ARRIVED AT THE CHF CLINIC FOR WEEKLY THERAPY , ALERT AND ORIENTED 0 DISTRESS, VSS OBTAINED
--- NOTE | 2019-05-27 07:45 | NUR ---
Clinic Provider Clinic Provider updated on pt status with new orders received and carried out. Dobutamine gtt started at {5}mcg/kg/hr per MD order.
--- NOTE | 2019-05-27 10:00 | NUR ---
ASSESS PT TOLERATING THERAPY, VISITING AND LAUGHING WITH OTHER PATIENTS
--- NOTE | 2019-05-27 10:53 | NUR ---
Discharge Instructions See e-MAR for any mediations given with this visit. Patient education given on disease process. Patient verbalized understanding. Previous labs reviewed. Patient discharged in stable condition with after care instructions and follow up appointment. MEDICATIONS 0743 START TIME DOBUTAMINE DRIP 5MCG/KG/MIN 1043 STOP TIME DOBUTAMINE DRIP 1049 HEPARIN 500 UNITS IVP X 1
== END | disposition home or self-care (01) ==
LOC: CHF HDHVI 07:42
PROVIDERS: ATTEND Internal Medicine Cardiovascular Disease
DX: I13.2 Hypertensive heart and chronic kidney disease with heart failure and with stage 5 chronic kidney disease, or end stage renal disease (principal); E11.22 Type 2 diabetes mellitus with diabetic chronic kidney disease; I50.22 Chronic systolic (congestive) heart failure; N18.6 End stage renal disease; I25.10 Atherosclerotic heart disease of native coronary artery without angina pectoris; I48.1 Persistent atrial fibrillation; I42.8 Other cardiomyopathies; I25.2 Old myocardial infarction; F31.9 Bipolar disorder, unspecified; I27.21 Secondary pulmonary arterial hypertension; J44.9 Chronic obstructive pulmonary disease, unspecified; E78.00 Pure hypercholesterolemia, unspecified; K21.9 Gastro-esophageal reflux disease without esophagitis; E78.5 Hyperlipidemia, unspecified; E03.9 Hypothyroidism, unspecified; F32.9 Major depressive disorder, single episode, unspecified; M19.072 Primary osteoarthritis, left ankle and foot; E11.51 Type 2 diabetes mellitus with diabetic peripheral angiopathy without gangrene; E11.41 Type 2 diabetes mellitus with diabetic mononeuropathy; E11.319 Type 2 diabetes mellitus with unspecified diabetic retinopathy without macular edema; Z95.1 Presence of aortocoronary bypass graft; Z95.5 Presence of coronary angioplasty implant and graft; Z79.01 Long term (current) use of anticoagulants; Z90.49 Acquired absence of other specified parts of digestive tract; Z95.810 Presence of automatic (implantable) cardiac defibrillator; Z87.891 Personal history of nicotine dependence; Z86.73 Personal history of transient ischemic attack (TIA), and cerebral infarction without residual deficits
CPT/HCPCS: 96365; 96366; G0463; J1250; J1642

== ENCOUNTER → 2019-05-29 | Outpatient (CLI) | payer OTHER ==
[2019-05-29] VITALS (9 sets, daily range): BP systolic 93–132; BP diastolic 48–73
--- NOTE | 2019-05-29 07:30 | NUR ---
PT. TO [facility]F CLINIC FOR DOBUTAMINE INFUSION PER MD ORDER. SEE NSG ASSESS. ORDERS RECEIVED AND CARRIED OUT.
--- NOTE | 2019-05-29 07:42 | NUR ---
Clinic Provider Clinic Provider into see pt with new orders received and carried out. Dobutamine gtt started at {5}mcg/kg/hr per MD order.
--- NOTE | 2019-05-29 09:00 | NUR ---
PT. TO AND FROM [facility], WITHOUT ASSIST. MEDS RESUMED WITH NO C/O. VSS
== END | disposition home or self-care (01) ==
LOC: CHF HDHVI 07:50
PROVIDERS: ATTEND Internal Medicine Cardiovascular Disease
DX: I13.2 Hypertensive heart and chronic kidney disease with heart failure and with stage 5 chronic kidney disease, or end stage renal disease (principal); E11.22 Type 2 diabetes mellitus with diabetic chronic kidney disease; I50.22 Chronic systolic (congestive) heart failure; N18.6 End stage renal disease; I25.10 Atherosclerotic heart disease of native coronary artery without angina pectoris; I42.8 Other cardiomyopathies; I25.2 Old myocardial infarction; I27.21 Secondary pulmonary arterial hypertension; I48.1 Persistent atrial fibrillation; M19.072 Primary osteoarthritis, left ankle and foot; K21.9 Gastro-esophageal reflux disease without esophagitis; F31.9 Bipolar disorder, unspecified; J44.9 Chronic obstructive pulmonary disease, unspecified; E78.5 Hyperlipidemia, unspecified; E03.9 Hypothyroidism, unspecified; F32.9 Major depressive disorder, single episode, unspecified; E78.00 Pure hypercholesterolemia, unspecified; E11.41 Type 2 diabetes mellitus with diabetic mononeuropathy; E11.51 Type 2 diabetes mellitus with diabetic peripheral angiopathy without gangrene; E11.319 Type 2 diabetes mellitus with unspecified diabetic retinopathy without macular edema; Z95.5 Presence of coronary angioplasty implant and graft; Z79.899 Other long term (current) drug therapy; Z87.891 Personal history of nicotine dependence; Z95.1 Presence of aortocoronary bypass graft; Z95.810 Presence of automatic (implantable) cardiac defibrillator; Z79.01 Long term (current) use of anticoagulants; Z86.73 Personal history of transient ischemic attack (TIA), and cerebral infarction without residual deficits; Z90.49 Acquired absence of other specified parts of digestive tract
CPT/HCPCS: 96365; 96366; G0463; J1250; J1642

== ENCOUNTER → 2019-05-31 | Outpatient (CLI) | payer OTHER ==
[2019-05-31] VITALS (9 sets, daily range): BP systolic 96–128; BP diastolic 47–73
[~2019-05-31] MED LIST changes: +EZET10TA22 PO; -EZET10TA6 PO; -HYDR-4683 PO; +HYDR-4833 PO; +POTA-220 PO; -POTA20TA53 PO
--- NOTE | 2019-05-31 10:45 | NUR ---
CHF CLINIC Discharge Instructions See e-MAR for any mediations given with this visit. Patient education given on disease process. Patient verbalized understanding. Previous labs reviewed. Patient discharged in stable condition with after care instructions and follow up appointment. NOTE DOBUTAMINE [id number] ADMIN BY ISAC ALVAREZ. HEPARIN ADMIN BY ISAC ALVAREZ
== END | disposition home or self-care (01) ==
LOC: CHF HDHVI 07:31
PROVIDERS: ATTEND Internal Medicine Cardiovascular Disease
DX: I13.2 Hypertensive heart and chronic kidney disease with heart failure and with stage 5 chronic kidney disease, or end stage renal disease (principal); E11.22 Type 2 diabetes mellitus with diabetic chronic kidney disease; I50.22 Chronic systolic (congestive) heart failure; N18.6 End stage renal disease; I25.10 Atherosclerotic heart disease of native coronary artery without angina pectoris; J44.9 Chronic obstructive pulmonary disease, unspecified; I25.2 Old myocardial infarction; I48.1 Persistent atrial fibrillation; I42.8 Other cardiomyopathies; K21.9 Gastro-esophageal reflux disease without esophagitis; I27.21 Secondary pulmonary arterial hypertension; E78.5 Hyperlipidemia, unspecified; E03.9 Hypothyroidism, unspecified; G89.29 Other chronic pain; M19.072 Primary osteoarthritis, left ankle and foot; E78.00 Pure hypercholesterolemia, unspecified; E11.41 Type 2 diabetes mellitus with diabetic mononeuropathy; E11.21 Type 2 diabetes mellitus with diabetic nephropathy; E11.51 Type 2 diabetes mellitus with diabetic peripheral angiopathy without gangrene; E11.319 Type 2 diabetes mellitus with unspecified diabetic retinopathy without macular edema; Z87.891 Personal history of nicotine dependence; Z95.5 Presence of coronary angioplasty implant and graft; Z79.01 Long term (current) use of anticoagulants; Z95.810 Presence of automatic (implantable) cardiac defibrillator; Z95.1 Presence of aortocoronary bypass graft; Z79.899 Other long term (current) drug therapy; Z85.030 Personal history of malignant carcinoid tumor of large intestine; Z86.73 Personal history of transient ischemic attack (TIA), and cerebral infarction without residual deficits; Z90.49 Acquired absence of other specified parts of digestive tract; F31.9 Bipolar disorder, unspecified
CPT/HCPCS: 96365; 96366; G0463; J1250; J1642

== ENCOUNTER → 2019-06-03 | Outpatient (CLI) | payer OTHER ==
[2019-06-03] VITALS (10 sets, daily range): BP systolic 104–127; BP diastolic 57–70
[~2019-06-03] MED LIST changes: -EZET10TA22 PO; +EZET10TA6 PO; +HYDR-4683 PO; -HYDR-4833 PO; -POTA-220 PO; +POTA20TA53 PO
--- NOTE | 2019-06-03 10:50 | NUR ---
Discharge Instructions See e-MAR for any mediations given with this visit. Patient education given on disease process. Patient verbalized understanding. Previous labs reviewed. Patient discharged in stable condition with after care instructions and follow up appointment. MEDICATIONS 0746 START TIME DOBUTAMINE 5MCG/KG/MIN 1046 STOP TIME DOBUTAMINE 1048 HEPARIN 500 UNITS IVP X 1
== END | disposition home or self-care (01) ==
LOC: CHF HDHVI 08:04
PROVIDERS: ATTEND Internal Medicine Cardiovascular Disease
DX: I13.2 Hypertensive heart and chronic kidney disease with heart failure and with stage 5 chronic kidney disease, or end stage renal disease (principal); E11.22 Type 2 diabetes mellitus with diabetic chronic kidney disease; I50.22 Chronic systolic (congestive) heart failure; N18.6 End stage renal disease; I25.10 Atherosclerotic heart disease of native coronary artery without angina pectoris; I27.21 Secondary pulmonary arterial hypertension; I25.2 Old myocardial infarction; I48.1 Persistent atrial fibrillation; I42.8 Other cardiomyopathies; F31.9 Bipolar disorder, unspecified; J44.9 Chronic obstructive pulmonary disease, unspecified; K21.9 Gastro-esophageal reflux disease without esophagitis; E78.5 Hyperlipidemia, unspecified; E03.9 Hypothyroidism, unspecified; F32.9 Major depressive disorder, single episode, unspecified; M19.072 Primary osteoarthritis, left ankle and foot; E78.00 Pure hypercholesterolemia, unspecified; E11.41 Type 2 diabetes mellitus with diabetic mononeuropathy; E11.51 Type 2 diabetes mellitus with diabetic peripheral angiopathy without gangrene; G89.29 Other chronic pain; Z86.73 Personal history of transient ischemic attack (TIA), and cerebral infarction without residual deficits; Z95.810 Presence of automatic (implantable) cardiac defibrillator; Z79.899 Other long term (current) drug therapy; Z79.01 Long term (current) use of anticoagulants; Z95.1 Presence of aortocoronary bypass graft; Z87.891 Personal history of nicotine dependence; Z95.5 Presence of coronary angioplasty implant and graft; Z90.49 Acquired absence of other specified parts of digestive tract
CPT/HCPCS: 96365; 96366; G0463; J1250; J1642

== ENCOUNTER → 2019-06-05 | Outpatient (CLI) | payer OTHER ==
[2019-06-05] VITALS (8 sets, daily range): BP systolic 93–122; BP diastolic 53–72
[~2019-06-05] MED LIST changes: +DOBUTamine 1000MCG/ML 0 ML IV ONE
--- NOTE | 2019-06-05 07:30 | NUR ---
PT. TO CHF CLINIC FOR DOBUTAMINE INFUSION PER MD ORDER. PT. STATES HE IS FEELING BETTER SINCE LAST TX. MD ORDERS RECEIVED AND CARRIED OUT. SEE NSG. ASSESS.
--- NOTE | 2019-06-05 07:45 | NUR ---
Clinic Provider Clinic Provider into see pt with new orders received and carried out. Dobutamine gtt started at {5}mcg/kg/hr per MD order.
--- NOTE | 2019-06-05 10:57 | NUR ---
Discharge Instructions See e-MAR for any mediations given with this visit. Patient education given on disease process. Patient verbalized understanding. Previous labs reviewed. Patient discharged in stable condition with after care instructions and follow up appointment. MEDICATIONS 0745 START TIME DOBUTAMINE DRIP 5MCG/KG/MIN 1048 STOP TIME DOBUTAMINE DRIP HEPARIN 500 UNITS IVP X 1
== END | disposition home or self-care (01) ==
LOC: CHF HDHVI 08:07
PROVIDERS: ATTEND Internal Medicine Cardiovascular Disease
DX: I13.2 Hypertensive heart and chronic kidney disease with heart failure and with stage 5 chronic kidney disease, or end stage renal disease (principal); E11.22 Type 2 diabetes mellitus with diabetic chronic kidney disease; I50.22 Chronic systolic (congestive) heart failure; N18.6 End stage renal disease; I25.10 Atherosclerotic heart disease of native coronary artery without angina pectoris; I25.2 Old myocardial infarction; I42.8 Other cardiomyopathies; I48.1 Persistent atrial fibrillation; F31.9 Bipolar disorder, unspecified; I27.21 Secondary pulmonary arterial hypertension; J44.9 Chronic obstructive pulmonary disease, unspecified; K21.9 Gastro-esophageal reflux disease without esophagitis; E78.5 Hyperlipidemia, unspecified; E03.9 Hypothyroidism, unspecified; E11.51 Type 2 diabetes mellitus with diabetic peripheral angiopathy without gangrene; F32.9 Major depressive disorder, single episode, unspecified; G89.29 Other chronic pain; E78.00 Pure hypercholesterolemia, unspecified; E11.41 Type 2 diabetes mellitus with diabetic mononeuropathy; Z95.5 Presence of coronary angioplasty implant and graft; Z87.891 Personal history of nicotine dependence; Z90.49 Acquired absence of other specified parts of digestive tract; Z95.810 Presence of automatic (implantable) cardiac defibrillator; Z79.01 Long term (current) use of anticoagulants; Z86.73 Personal history of transient ischemic attack (TIA), and cerebral infarction without residual deficits; Z95.1 Presence of aortocoronary bypass graft; Z79.899 Other long term (current) drug therapy
CPT/HCPCS: 96365; 96366; G0463; J1250; J1642

== ENCOUNTER → 2019-06-07 | Outpatient (CLI) | payer OTHER ==
[~2019-06-07] VITALS: Ht 180.3 cm; Wt 88.6 kg
[2019-06-07] VITALS (10 sets, daily range): BP systolic 103–122; BP diastolic 53–68
[~2019-06-07] MED LIST changes: +EZET10TA22 PO; -EZET10TA6 PO; -HYDR-4683 PO; +HYDR-4833 PO; +POTA-220 PO; -POTA20TA53 PO
--- NOTE | 2019-06-07 07:47 | NUR ---
Ayah Cath Insertion 20 gauge Ayah Cath inserted using sterile technique in the upper chest with occlusive dressing over saucedo needle. Patient tolerated procedure well. See e-MAR for medications given during this visit. Clinic Provider Clinic Provider into see pt with new orders received and carried out. Dobutamine gtt started at {5}mcg/kg/hr per MD order.
--- NOTE | 2019-06-07 10:50 | NUR ---
Ayah Cath Removal Quinones needle D/C'd after Heparin flush per protocol by Kandy ALVAREZ. See e-MAR for medications given during this visit. Sterile occlusive dressing to site. Patient tolerated procedure well. Site benign post infusion.
--- NOTE | 2019-06-07 10:55 | NUR ---
Discharge Instructions See e-MAR for any mediations given with this visit. Patient education given on disease process. Patient verbalized understanding. Previous labs reviewed. Patient discharged in stable condition with after care instructions and follow up appointment on Monday. Note Dobutamine [id number] admin by Roscoe ALVAREZ. Heparin admin by Kandy ALVAREZ
== END | disposition home or self-care (01) ==
LOC: CHF HDHVI 07:55
PROVIDERS: ATTEND Internal Medicine Cardiovascular Disease
DX: I13.2 Hypertensive heart and chronic kidney disease with heart failure and with stage 5 chronic kidney disease, or end stage renal disease (principal); E11.22 Type 2 diabetes mellitus with diabetic chronic kidney disease; I50.22 Chronic systolic (congestive) heart failure; N18.6 End stage renal disease; I25.10 Atherosclerotic heart disease of native coronary artery without angina pectoris; I42.8 Other cardiomyopathies; I48.1 Persistent atrial fibrillation; I27.21 Secondary pulmonary arterial hypertension; I25.2 Old myocardial infarction; F31.9 Bipolar disorder, unspecified; J44.9 Chronic obstructive pulmonary disease, unspecified; K21.9 Gastro-esophageal reflux disease without esophagitis; E78.5 Hyperlipidemia, unspecified; E03.9 Hypothyroidism, unspecified; G89.29 Other chronic pain; M19.072 Primary osteoarthritis, left ankle and foot; E78.00 Pure hypercholesterolemia, unspecified; E11.41 Type 2 diabetes mellitus with diabetic mononeuropathy; E11.51 Type 2 diabetes mellitus with diabetic peripheral angiopathy without gangrene; E11.319 Type 2 diabetes mellitus with unspecified diabetic retinopathy without macular edema; Z86.73 Personal history of transient ischemic attack (TIA), and cerebral infarction without residual deficits; Z90.49 Acquired absence of other specified parts of digestive tract; Z95.810 Presence of automatic (implantable) cardiac defibrillator; Z79.899 Other long term (current) drug therapy; Z87.891 Personal history of nicotine dependence; Z85.030 Personal history of malignant carcinoid tumor of large intestine; Z95.5 Presence of coronary angioplasty implant and graft; Z79.01 Long term (current) use of anticoagulants; Z95.1 Presence of aortocoronary bypass graft
CPT/HCPCS: 96365; 96366; G0463; J1250; J1642

== ENCOUNTER → 2019-06-10 | Outpatient (CLI) | payer OTHER ==
[2019-06-10] VITALS (10 sets, daily range): BP systolic 99–143; BP diastolic 52–81
[~2019-06-10] MED LIST changes: -DOBUTamine 1000MCG/ML 0 ML IV ONE; -EZET10TA22 PO; +EZET10TA6 PO; +HYDR-4683 PO; -HYDR-4833 PO; -POTA-220 PO; +POTA20TA53 PO
--- NOTE | 2019-06-10 07:30 | NUR ---
PT. TO CHF CLINIC FOR EVAL. AND TX. SOB WITH EXERTION. NEW ORDERS RECEIVED FOR DOBUTAMINE INFUSION AND CARRIED OUT. SEE NSG ASSESS.
--- NOTE | 2019-06-10 07:47 | NUR ---
Clinic Provider Clinic Provider into see pt with new orders received and carried out. Dobutamine gtt started at {5}mcg/kg/hr per MD order.
--- NOTE | 2019-06-10 10:00 | NUR ---
INFUSION ONGOING. WITHOUT DISTRESS AND WITHOUT DISCOMFORT.
--- NOTE | 2019-06-10 10:55 | NUR ---
CHF INFUSION COMPLETED. TOLERATED WELL. Ayah Cath Removal Quinones needle D/C'd after Heparin flush per protocol. See e-MAR for medications given during this visit. Sterile occlusive dressing to site. Patient tolerated procedure well. Site benign post infusion. DISCHARGED TO SELF CARE WITHOUT DISTRESS. MEDICATION ADMINISTRATION DOBUTAMINE GTT AT 5 MCG/KG/MIN START AT 0747/STOP AT 1046 (26.16 ML/HR) HEPARIN 500 UNITS IVP AT 1050 TO RIGHT CHEST PORT
== END | disposition home or self-care (01) ==
LOC: CHF HDHVI 07:50
PROVIDERS: ATTEND Internal Medicine Cardiovascular Disease
DX: I13.2 Hypertensive heart and chronic kidney disease with heart failure and with stage 5 chronic kidney disease, or end stage renal disease (principal); E11.22 Type 2 diabetes mellitus with diabetic chronic kidney disease; I50.23 Acute on chronic systolic (congestive) heart failure; I50.84 End stage heart failure; N18.6 End stage renal disease; I25.10 Atherosclerotic heart disease of native coronary artery without angina pectoris; D64.9 Anemia, unspecified; E78.5 Hyperlipidemia, unspecified; F31.9 Bipolar disorder, unspecified; J44.9 Chronic obstructive pulmonary disease, unspecified; K21.9 Gastro-esophageal reflux disease without esophagitis; E03.9 Hypothyroidism, unspecified; I25.2 Old myocardial infarction; G89.29 Other chronic pain; I42.8 Other cardiomyopathies; I48.1 Persistent atrial fibrillation; E78.00 Pure hypercholesterolemia, unspecified; E11.41 Type 2 diabetes mellitus with diabetic mononeuropathy; E11.51 Type 2 diabetes mellitus with diabetic peripheral angiopathy without gangrene; M19.072 Primary osteoarthritis, left ankle and foot; Z85.038 Personal history of other malignant neoplasm of large intestine; Z90.49 Acquired absence of other specified parts of digestive tract; Z79.01 Long term (current) use of anticoagulants; Z79.899 Other long term (current) drug therapy; Z87.891 Personal history of nicotine dependence; Z95.1 Presence of aortocoronary bypass graft; Z95.810 Presence of automatic (implantable) cardiac defibrillator; Z95.5 Presence of coronary angioplasty implant and graft; Z86.73 Personal history of transient ischemic attack (TIA), and cerebral infarction without residual deficits
CPT/HCPCS: 96365; 96366; G0463; J1250; J1642

== ENCOUNTER → 2019-06-12 | Outpatient (CLI) | payer OTHER ==
[2019-06-12] VITALS (10 sets, daily range): BP systolic 101–144; BP diastolic 48–92
--- NOTE | 2019-06-12 07:30 | NUR ---
PT. TO [facility]F CLINIC FOR EVAL. AND TX. PT. STATES HE IS FASTING FOR LABS, AND FEELING BETTER SINCE LAST TX.. MD ORDERS RECEIVED AND CARRIED OUT. SEE NSG. ASSESS.
--- NOTE | 2019-06-12 07:35 | NUR ---
Ayah Cath Insertion 20 gauge Ayah Cath inserted using sterile technique in the upper chest with occlusive dressing over saucedo needle. Patient tolerated procedure well. Ordered labs drawn and sent. See e-MAR for medications given during this visit. NOTE PT. IS FASTING.
--- NOTE | 2019-06-12 07:40 | NUR ---
Clinic Provider Clinic Provider into see pt with new orders received and carried out. Dobutamine gtt started at {5}mcg/kg/hr per MD order.
--- NOTE | 2019-06-12 08:10 | NUR ---
PT. TO AND FROM [facility]. UA OBTAINED AND SENT PER MD ORDER. IV MEDS RESUMED.
--- NOTE | 2019-06-12 10:53 | NUR ---
Discharge Instructions See e-MAR for any mediations given with this visit. Patient education given on disease process. Patient verbalized understanding. Previous labs reviewed. Patient discharged in stable condition with after care instructions and follow up appointment. NOTE DOBUTAMINE [id number] ADMIN BY GISELA ALVAREZ. HEPARIN ADMIN BY FAVIAN ALVAREZ AND MACY ALVAREZ.
[2019-06-12 12:07] LABS: Basophils # (auto) 0 uL; Basophils % (auto) 0.8 % (0.0-2.0); Eosinophils # (auto) 0.2 uL; Eosinophils % (auto) 6.3 % (0.0-7.0); Hematocrit 44.1 % (41.0-53.0); Lymphocytes # (auto) 1.3 uL; Lymphocytes % (auto) 38.4 % (10.0-50.0); Mean Corpuscular Hemoglobin 33.3 pg (28.0-32.0); Mean Corpuscular Hgb Conc. 34.1 g/dL (32.0-36.0); Mean Corpuscular Volume 97.8 fL (80.0-100.0); Monocytes # (auto) 0.5 uL; Monocytes % (auto) 13.2 % (0.0-12.0); Neutrophils # (auto) 1.4 uL; Neutrophils % (auto) 41.3 % (37.0-80.0); Nucleated Red Blood Cells % 0.2 %; Platelet Count (auto) 152 10^3/uL (140-450); Red Blood Cells 4.51 10^6/uL (4.5-5.90); Red Cell Distribution Width 13.6 % (11.8-14.3); Urine Blood Negative /uL (Negative); White Blood Cell 3.4 10^3/uL (4.4-10.8)
[2019-06-12 12:52] LABS: Albumin 3.9 g/dL (3.4-5.0); Calcium 9.1 mg/dL (8.5-10.1); Potassium 4.5 mmol/L (3.5-5.1)
[2019-06-12 12:58] LABS: Bilirubin, Total 0.7 mg/dL (0.2-1.0); Total Protein 7.6 g/dL (6.4-8.2)
[2019-06-12 15:52] LABS: BUN/Creatinine Ratio 17.5
== END | disposition home or self-care (01) ==
LOC: CHF HDHVI 07:58
PROVIDERS: ATTEND Internal Medicine Cardiovascular Disease
DX: I13.2 Hypertensive heart and chronic kidney disease with heart failure and with stage 5 chronic kidney disease, or end stage renal disease (principal); E11.22 Type 2 diabetes mellitus with diabetic chronic kidney disease; I50.23 Acute on chronic systolic (congestive) heart failure; N18.6 End stage renal disease; E78.5 Hyperlipidemia, unspecified; N39.0 Urinary tract infection, site not specified; D64.9 Anemia, unspecified; I42.8 Other cardiomyopathies; I25.10 Atherosclerotic heart disease of native coronary artery without angina pectoris; F31.9 Bipolar disorder, unspecified; J44.9 Chronic obstructive pulmonary disease, unspecified; I50.84 End stage heart failure; K21.9 Gastro-esophageal reflux disease without esophagitis; E03.9 Hypothyroidism, unspecified; I25.2 Old myocardial infarction; G89.29 Other chronic pain; I48.1 Persistent atrial fibrillation; M19.072 Primary osteoarthritis, left ankle and foot; E78.00 Pure hypercholesterolemia, unspecified; E11.41 Type 2 diabetes mellitus with diabetic mononeuropathy; E11.51 Type 2 diabetes mellitus with diabetic peripheral angiopathy without gangrene; Z90.49 Acquired absence of other specified parts of digestive tract; Z79.01 Long term (current) use of anticoagulants; Z79.899 Other long term (current) drug therapy; Z85.038 Personal history of other malignant neoplasm of large intestine; Z87.891 Personal history of nicotine dependence; Z95.1 Presence of aortocoronary bypass graft; Z95.810 Presence of automatic (implantable) cardiac defibrillator; Z95.5 Presence of coronary angioplasty implant and graft; Z86.73 Personal history of transient ischemic attack (TIA), and cerebral infarction without residual deficits
CPT/HCPCS: 36415; 80053; 80061; 81003; 83880; 85025; 96365; 96366; G0463; J1250; J1642

== ENCOUNTER → 2019-06-14 | Outpatient (CLI) | payer OTHER ==
[2019-06-14] VITALS (10 sets, daily range): BP systolic 102–132; BP diastolic 55–69
[~2019-06-14] VITALS: Ht 30.5 cm; Wt 88.0 kg
[~2019-06-14] MED LIST changes: +EZET10TA22 PO; -EZET10TA6 PO; -HYDR-4683 PO; +HYDR-4833 PO; +POTA-220 PO; -POTA20TA53 PO
--- NOTE | 2019-06-14 11:00 | NUR ---
CHF CLINIC Discharge Instructions See e-MAR for any mediations given with this visit. Patient education given on disease process. Patient verbalized understanding. Previous labs reviewed. Patient discharged in stable condition with after care instructions and follow up appointment. NOTE DOBUTAMINE [id number] ADMIN BY MACY ALVAREZ HEPARIN ADMIN BY MACY ALVAREZ
== END | disposition home or self-care (01) ==
LOC: CHF HDHVI 07:34
PROVIDERS: ATTEND Internal Medicine Cardiovascular Disease
DX: I13.2 Hypertensive heart and chronic kidney disease with heart failure and with stage 5 chronic kidney disease, or end stage renal disease (principal); I50.22 Chronic systolic (congestive) heart failure; N18.6 End stage renal disease; I25.10 Atherosclerotic heart disease of native coronary artery without angina pectoris; I25.2 Old myocardial infarction; I42.8 Other cardiomyopathies; F31.9 Bipolar disorder, unspecified; J44.9 Chronic obstructive pulmonary disease, unspecified; I27.21 Secondary pulmonary arterial hypertension; I48.1 Persistent atrial fibrillation; D64.9 Anemia, unspecified; K21.9 Gastro-esophageal reflux disease without esophagitis; E78.5 Hyperlipidemia, unspecified; E03.9 Hypothyroidism, unspecified; G89.29 Other chronic pain; M19.072 Primary osteoarthritis, left ankle and foot; E78.00 Pure hypercholesterolemia, unspecified; E11.22 Type 2 diabetes mellitus with diabetic chronic kidney disease; E11.41 Type 2 diabetes mellitus with diabetic mononeuropathy; E11.51 Type 2 diabetes mellitus with diabetic peripheral angiopathy without gangrene; E11.319 Type 2 diabetes mellitus with unspecified diabetic retinopathy without macular edema; Z87.891 Personal history of nicotine dependence; Z95.810 Presence of automatic (implantable) cardiac defibrillator; Z79.899 Other long term (current) drug therapy; Z95.1 Presence of aortocoronary bypass graft; Z90.49 Acquired absence of other specified parts of digestive tract; Z79.01 Long term (current) use of anticoagulants; Z95.5 Presence of coronary angioplasty implant and graft; Z85.030 Personal history of malignant carcinoid tumor of large intestine
CPT/HCPCS: 96365; 96366; G0463; J1250; J1642

== ENCOUNTER → 2019-06-17 | Outpatient (CLI) | payer OTHER ==
[2019-06-17] VITALS (9 sets, daily range): BP systolic 89–120; BP diastolic 46–69
[~2019-06-17] VITALS: Ht 30.5 cm; Wt 88.1 kg
--- NOTE | 2019-06-17 07:30 | NUR ---
PT. TO CHF CLINIC FOR DOBUTAMINE INFUSION PER MD ORDER. PT. STATES HE IS FEELING BETTER OVER THE WEEKEND. MD ORDERS RECEIVED AND CARRIED OUT. SEE NSG. ASSESS
--- NOTE | 2019-06-17 07:47 | NUR ---
Clinic Provider Clinic Provider into see pt with new orders received and carried out. Dobutamine gtt started at {5}mcg/kg/hr per MD order. Addendum: 07/18/19 at 1655 by VÍCTOR FIGUEROA RN RN AL LATE ENTRY FOR 06/17/19 DOBUTAMINE DRIP [id number] BY GISELA ALVAREZ HEPARIN 500 UNITS IVP X 1
== END | disposition home or self-care (01) ==
LOC: CHF HDHVI 07:57
PROVIDERS: ATTEND Internal Medicine Cardiovascular Disease
DX: I13.2 Hypertensive heart and chronic kidney disease with heart failure and with stage 5 chronic kidney disease, or end stage renal disease (principal); E11.22 Type 2 diabetes mellitus with diabetic chronic kidney disease; E11.36 Type 2 diabetes mellitus with diabetic cataract; E11.41 Type 2 diabetes mellitus with diabetic mononeuropathy; E11.51 Type 2 diabetes mellitus with diabetic peripheral angiopathy without gangrene; E11.21 Type 2 diabetes mellitus with diabetic nephropathy; E11.319 Type 2 diabetes mellitus with unspecified diabetic retinopathy without macular edema; N18.6 End stage renal disease; I50.22 Chronic systolic (congestive) heart failure; I50.84 End stage heart failure; I25.10 Atherosclerotic heart disease of native coronary artery without angina pectoris; I42.9 Cardiomyopathy, unspecified; F41.9 Anxiety disorder, unspecified; F31.9 Bipolar disorder, unspecified; J44.9 Chronic obstructive pulmonary disease, unspecified; K21.9 Gastro-esophageal reflux disease without esophagitis; E78.5 Hyperlipidemia, unspecified; E03.9 Hypothyroidism, unspecified; I25.2 Old myocardial infarction; G89.29 Other chronic pain; I48.1 Persistent atrial fibrillation; M19.072 Primary osteoarthritis, left ankle and foot; E78.00 Pure hypercholesterolemia, unspecified; Z79.01 Long term (current) use of anticoagulants; Z79.899 Other long term (current) drug therapy; Z90.49 Acquired absence of other specified parts of digestive tract; Z87.891 Personal history of nicotine dependence; Z95.810 Presence of automatic (implantable) cardiac defibrillator; Z98.61 Coronary angioplasty status; Z86.73 Personal history of transient ischemic attack (TIA), and cerebral infarction without residual deficits; Z85.038 Personal history of other malignant neoplasm of large intestine; Z87.440 Personal history of urinary (tract) infections
CPT/HCPCS: 96365; 96366; G0463; J1250; J1642

== ENCOUNTER → 2019-06-19 | Outpatient (CLI) | payer OTHER ==
[2019-06-19] VITALS (8 sets, daily range): BP systolic 115–142; BP diastolic 63–72
--- NOTE | 2019-06-19 07:30 | NUR ---
PT. TO CHF CLINIC FOR DOBUTAMINE INFUSION PER MD ORDER. PT. WITH NO C/O AT THIS TIME.
--- NOTE | 2019-06-19 07:46 | NUR ---
MEDS: DOBUTAMINE DRIP STARTED AT 5 MVG/KG/MIN PER MD ORDER. Addendum: 07/18/19 at 1651 by VÍCTOR FIGUEROA RN RN ND LATE ENTRY FOR 06/19/14 DOBUTAMINE DRIP [id number] HEPARIN 500 UNITS IVP X 1
== END | disposition home or self-care (01) ==
LOC: CHF HDHVI 08:16
PROVIDERS: ATTEND Internal Medicine Cardiovascular Disease
DX: I13.2 Hypertensive heart and chronic kidney disease with heart failure and with stage 5 chronic kidney disease, or end stage renal disease (principal); E11.22 Type 2 diabetes mellitus with diabetic chronic kidney disease; E11.36 Type 2 diabetes mellitus with diabetic cataract; E11.41 Type 2 diabetes mellitus with diabetic mononeuropathy; E11.51 Type 2 diabetes mellitus with diabetic peripheral angiopathy without gangrene; E11.21 Type 2 diabetes mellitus with diabetic nephropathy; E11.319 Type 2 diabetes mellitus with unspecified diabetic retinopathy without macular edema; N18.6 End stage renal disease; I50.22 Chronic systolic (congestive) heart failure; I50.84 End stage heart failure; I25.10 Atherosclerotic heart disease of native coronary artery without angina pectoris; I42.9 Cardiomyopathy, unspecified; F41.9 Anxiety disorder, unspecified; F31.9 Bipolar disorder, unspecified; J44.9 Chronic obstructive pulmonary disease, unspecified; K21.9 Gastro-esophageal reflux disease without esophagitis; E78.5 Hyperlipidemia, unspecified; E03.9 Hypothyroidism, unspecified; I25.2 Old myocardial infarction; G89.29 Other chronic pain; I48.1 Persistent atrial fibrillation; M19.072 Primary osteoarthritis, left ankle and foot; E78.00 Pure hypercholesterolemia, unspecified; Z79.01 Long term (current) use of anticoagulants; Z79.899 Other long term (current) drug therapy; Z90.49 Acquired absence of other specified parts of digestive tract; Z87.891 Personal history of nicotine dependence; Z95.810 Presence of automatic (implantable) cardiac defibrillator; Z98.61 Coronary angioplasty status; Z86.73 Personal history of transient ischemic attack (TIA), and cerebral infarction without residual deficits; Z85.038 Personal history of other malignant neoplasm of large intestine; Z87.440 Personal history of urinary (tract) infections
CPT/HCPCS: 96365; 96366; G0463; J1250; J1642

== ENCOUNTER → 2019-06-21 | Outpatient (CLI) | payer OTHER ==
[2019-06-21] VITALS (7 sets, daily range): BP systolic 106–124; BP diastolic 57–70
[~2019-06-21] MED LIST changes: +CATHFLO ACTIVASE (ALTEPLASE) 2 MG VIAL IV ONE
--- NOTE | 2019-06-21 07:45 | NUR ---
CARDIODYNAMICS DONE AND REVIEWED.
--- NOTE | 2019-06-21 08:23 | NUR ---
BLOOD ASPIRATED AND OBTAINED FROM PORT. MULTIPLE FLUSHES AND ATTEMPTS TO NOW. PT TOLERATED WELL. Clinic Provider Clinic Provider into see pt with new orders received and carried out. Dobutamine gtt started at {5}mcg/kg/hr per MD order.
--- NOTE | 2019-06-21 10:30 | NUR ---
INFUSION ONGOING WITHOUT DISTRESS. VS WNL.
--- NOTE | 2019-06-21 11:30 | NUR ---
INFUSION COMPLETED. TOLERATED WELL. VS WNL.
--- NOTE | 2019-06-21 11:35 | NUR ---
CHF Discharge Instructions See e-MAR for any mediations given with this visit. Patient education given on disease process. Patient verbalized understanding. Previous labs reviewed. Patient discharged in stable condition with after care instructions and follow up appointment FOR 06/24/19 MEDICATION ADMINISTRATION DOBUTAMINE GTT AT 5 MCG/KG/MIN START AT 0823/STOP AT 1130 (26.4ML/HR) HEPARIN 500 UNITS IVP AT 1130 CARDIODYNAMICS
--- NOTE | 2019-07-31 14:32 | NUR ---
LATE ENTRY FOR 06/21/19 FOR 0745 CATH FLOW ORDERED TO RIGHT CHEST PORT. ADMINISTERED BY GISELA ALVAREZ PER PROTOCOL.
== END | disposition home or self-care (01) ==
LOC: CHF HDHVI 07:31
PROVIDERS: ATTEND Internal Medicine Cardiovascular Disease
DX: I13.2 Hypertensive heart and chronic kidney disease with heart failure and with stage 5 chronic kidney disease, or end stage renal disease (principal); E11.22 Type 2 diabetes mellitus with diabetic chronic kidney disease; N18.6 End stage renal disease; I50.22 Chronic systolic (congestive) heart failure; I25.10 Atherosclerotic heart disease of native coronary artery without angina pectoris; I48.91 Unspecified atrial fibrillation; I27.21 Secondary pulmonary arterial hypertension; I48.1 Persistent atrial fibrillation; I25.2 Old myocardial infarction; F41.9 Anxiety disorder, unspecified; E78.00 Pure hypercholesterolemia, unspecified; F31.9 Bipolar disorder, unspecified; J44.9 Chronic obstructive pulmonary disease, unspecified; K21.9 Gastro-esophageal reflux disease without esophagitis; E11.51 Type 2 diabetes mellitus with diabetic peripheral angiopathy without gangrene; E11.319 Type 2 diabetes mellitus with unspecified diabetic retinopathy without macular edema; E11.21 Type 2 diabetes mellitus with diabetic nephropathy; E11.40 Type 2 diabetes mellitus with diabetic neuropathy, unspecified; E78.5 Hyperlipidemia, unspecified; E03.9 Hypothyroidism, unspecified; G89.29 Other chronic pain; M19.072 Primary osteoarthritis, left ankle and foot; Z86.73 Personal history of transient ischemic attack (TIA), and cerebral infarction without residual deficits; Z79.899 Other long term (current) drug therapy; Z85.060 Personal history of malignant carcinoid tumor of small intestine; Z85.810 Personal history of malignant neoplasm of tongue; Z87.891 Personal history of nicotine dependence; Z95.1 Presence of aortocoronary bypass graft; Z95.810 Presence of automatic (implantable) cardiac defibrillator; Z79.01 Long term (current) use of anticoagulants; Z95.5 Presence of coronary angioplasty implant and graft; Z90.49 Acquired absence of other specified parts of digestive tract
CPT/HCPCS: 93701; 96365; 96366; G0463; J1250; J1642; 96375

== ENCOUNTER → 2019-06-24 | Outpatient (CLI) | payer OTHER ==
[~2019-06-24] VITALS: Ht 30.5 cm; Wt 87.4 kg
[~2019-06-24] MED LIST changes: -CATHFLO ACTIVASE (ALTEPLASE) 2 MG VIAL IV ONE; +CYANOCOBALAMIN (B-12) 1000 MCG/1 ML VIAL IM ONE; +CYANOCOBALAMIN (B-12) 1000 MCG/1 ML VIAL ONE; +HYDROmorphone HCL 2 MG/ML VL ONE
[2019-06-24 08:00] VITALS: BP 110/65
[2019-06-24 08:15] VITALS: BP 105/51
[2019-06-24 08:30] VITALS: BP 102/51
[2019-06-24 11:04] VITALS: BP 129/73
--- NOTE | 2019-06-24 11:04 | NUR ---
Discharge Instructions See e-MAR for any mediations given with this visit. Patient education given on disease process. Patient verbalized understanding. Previous labs reviewed. Patient discharged in stable condition with after care instructions and follow up appointment. MEDICATIONS [place] DRIP IV [id number] HEPARIN 500 UNITS IVP X 1 VITAMIN B12 IM X 1 LOT # [id number] EXP 03/17
== END | disposition home or self-care (01) ==
LOC: CHF HDHVI 08:02
PROVIDERS: ATTEND Internal Medicine Cardiovascular Disease
DX: I13.2 Hypertensive heart and chronic kidney disease with heart failure and with stage 5 chronic kidney disease, or end stage renal disease (principal); E11.22 Type 2 diabetes mellitus with diabetic chronic kidney disease; I50.22 Chronic systolic (congestive) heart failure; N18.6 End stage renal disease; D64.9 Anemia, unspecified; I25.10 Atherosclerotic heart disease of native coronary artery without angina pectoris; F31.9 Bipolar disorder, unspecified; J44.9 Chronic obstructive pulmonary disease, unspecified; I48.1 Persistent atrial fibrillation; I42.8 Other cardiomyopathies; I25.2 Old myocardial infarction; I27.21 Secondary pulmonary arterial hypertension; K21.9 Gastro-esophageal reflux disease without esophagitis; E78.5 Hyperlipidemia, unspecified; E03.9 Hypothyroidism, unspecified; G89.29 Other chronic pain; M19.072 Primary osteoarthritis, left ankle and foot; E78.00 Pure hypercholesterolemia, unspecified; E11.41 Type 2 diabetes mellitus with diabetic mononeuropathy; E11.51 Type 2 diabetes mellitus with diabetic peripheral angiopathy without gangrene; E11.319 Type 2 diabetes mellitus with unspecified diabetic retinopathy without macular edema; Z95.5 Presence of coronary angioplasty implant and graft; Z95.1 Presence of aortocoronary bypass graft; Z95.810 Presence of automatic (implantable) cardiac defibrillator; Z90.49 Acquired absence of other specified parts of digestive tract; Z86.73 Personal history of transient ischemic attack (TIA), and cerebral infarction without residual deficits; Z79.01 Long term (current) use of anticoagulants; Z85.030 Personal history of malignant carcinoid tumor of large intestine; Z79.899 Other long term (current) drug therapy; Z87.891 Personal history of nicotine dependence
CPT/HCPCS: 96365; 96366; 96372; G0463; J1250; J1642; J3420

== ENCOUNTER → 2019-06-26 | Outpatient (CLI) | payer OTHER ==
[2019-06-26] VITALS (9 sets, daily range): BP systolic 106–140; BP diastolic 60–74
[~2019-06-26] MED LIST changes: -CYANOCOBALAMIN (B-12) 1000 MCG/1 ML VIAL IM ONE; -CYANOCOBALAMIN (B-12) 1000 MCG/1 ML VIAL ONE; -HYDROmorphone HCL 2 MG/ML VL ONE
--- NOTE | 2019-06-26 07:30 | NUR ---
IN TO CLINIC FOR SCHEDULED INFUSION. WITHOUT DISTRESS. VS WNL
--- NOTE | 2019-06-26 10:53 | NUR ---
CHF CLINIC Discharge Instructions See e-MAR for any mediations given with this visit. Patient education given on disease process. Patient verbalized understanding. Previous labs reviewed. Patient discharged in stable condition with after care instructions and follow up appointment. NOTE DOBUTAMINE [id number] ADMIN BY ISAC ALVAREZ HEPARIN ADMIN BY MACY ALVAREZ
== END | disposition home or self-care (01) ==
LOC: CHF HDHVI 07:25
PROVIDERS: ATTEND Internal Medicine Cardiovascular Disease
DX: I13.2 Hypertensive heart and chronic kidney disease with heart failure and with stage 5 chronic kidney disease, or end stage renal disease (principal); I50.22 Chronic systolic (congestive) heart failure; N18.6 End stage renal disease; I25.10 Atherosclerotic heart disease of native coronary artery without angina pectoris; I48.1 Persistent atrial fibrillation; I25.2 Old myocardial infarction; I42.8 Other cardiomyopathies; F31.9 Bipolar disorder, unspecified; J44.9 Chronic obstructive pulmonary disease, unspecified; K21.9 Gastro-esophageal reflux disease without esophagitis; E78.5 Hyperlipidemia, unspecified; E03.9 Hypothyroidism, unspecified; G89.29 Other chronic pain; Z85.030 Personal history of malignant carcinoid tumor of large intestine; Z87.891 Personal history of nicotine dependence; Z95.1 Presence of aortocoronary bypass graft; Z95.810 Presence of automatic (implantable) cardiac defibrillator; Z90.49 Acquired absence of other specified parts of digestive tract; Z79.01 Long term (current) use of anticoagulants; Z79.899 Other long term (current) drug therapy
CPT/HCPCS: 96365; 96366; G0463; J1250; J1642

== ENCOUNTER → 2019-06-28 | Outpatient (CLI) | payer OTHER ==
[~2019-06-28] VITALS: Ht 30.5 cm; Wt 86.6 kg
[2019-06-28] VITALS (7 sets, daily range): BP systolic 100–126; BP diastolic 52–67
--- NOTE | 2019-06-28 11:00 | NUR ---
CHF CLINIC Discharge Instructions See e-MAR for any mediations given with this visit. Patient education given on disease process. Patient verbalized understanding. Previous labs reviewed. Patient discharged in stable condition with after care instructions and follow up appointment ON MONDAY. NOTE DOBUTAMINE [id number] ADMIN BY ISAC ALVAREZ. HEPARIN ADMIN BY ISAC ALVAREZ.
== END | disposition home or self-care (01) ==
LOC: CHF HDHVI 07:47
PROVIDERS: ATTEND Internal Medicine Cardiovascular Disease
DX: I13.2 Hypertensive heart and chronic kidney disease with heart failure and with stage 5 chronic kidney disease, or end stage renal disease (principal); E11.22 Type 2 diabetes mellitus with diabetic chronic kidney disease; I50.22 Chronic systolic (congestive) heart failure; N18.6 End stage renal disease; I27.21 Secondary pulmonary arterial hypertension; I25.10 Atherosclerotic heart disease of native coronary artery without angina pectoris; I42.8 Other cardiomyopathies; I25.2 Old myocardial infarction; D64.9 Anemia, unspecified; I48.1 Persistent atrial fibrillation; F31.9 Bipolar disorder, unspecified; J44.9 Chronic obstructive pulmonary disease, unspecified; K21.9 Gastro-esophageal reflux disease without esophagitis; E78.5 Hyperlipidemia, unspecified; E03.9 Hypothyroidism, unspecified; G89.29 Other chronic pain; M19.072 Primary osteoarthritis, left ankle and foot; E78.00 Pure hypercholesterolemia, unspecified; E11.41 Type 2 diabetes mellitus with diabetic mononeuropathy; E11.51 Type 2 diabetes mellitus with diabetic peripheral angiopathy without gangrene; E11.319 Type 2 diabetes mellitus with unspecified diabetic retinopathy without macular edema; Z79.899 Other long term (current) drug therapy; Z87.891 Personal history of nicotine dependence; Z95.810 Presence of automatic (implantable) cardiac defibrillator; Z79.01 Long term (current) use of anticoagulants; Z86.73 Personal history of transient ischemic attack (TIA), and cerebral infarction without residual deficits; Z90.49 Acquired absence of other specified parts of digestive tract; Z85.030 Personal history of malignant carcinoid tumor of large intestine; Z95.1 Presence of aortocoronary bypass graft
CPT/HCPCS: 96365; 96366; G0463; J1250; J1642

== ENCOUNTER → 2019-07-01 | Outpatient (CLI) | payer OTHER ==
[2019-07-01] VITALS (9 sets, daily range): BP systolic 107–140; BP diastolic 60–77
--- NOTE | 2019-07-01 07:35 | NUR ---
PT. TO CHF CLINIC FOR DOBUTAMINE THERAPY PER MD ORDER. PT. STATES HE IS FEELING BETTER AND NOTED THAT HE HAS ONLY REGISTERED 12 PVC'S IN THE MONTH OF MAY. ORDERS RECEIVED AND CARRIED OUT.
--- NOTE | 2019-07-01 07:55 | NUR ---
Clinic Provider Clinic Provider into see pt with new orders received and carried out. Dobutamine gtt started at {5}mcg/kg/hr per MD order.
--- NOTE | 2019-07-01 11:00 | NUR ---
Ayah Cath Removal Quinones needle D/C'd by Dami ALVAREZ after Heparin flush per protocol. See e-MAR for medications given during this visit. Sterile occlusive dressing to site. Patient tolerated procedure well. Site benign post infusion.
--- NOTE | 2019-07-01 11:02 | NUR ---
CHF CLINIC Discharge Instructions See e-MAR for any mediations given with this visit. Patient education given on disease process. Patient verbalized understanding. Previous labs reviewed. Patient discharged in stable condition with after care instructions and follow up appointment. Note Dobutamine [id number] admin by Roscoe ALVAREZ Heparin admin by Dami ALVAREZ
[2019-07-01 12:18] LABS: Basophils # (auto) 0 uL; Basophils % (auto) 0.4 % (0.0-2.0); Eosinophils # (auto) 0.1 uL; Eosinophils % (auto) 2.5 % (0.0-7.0); Hematocrit 43.1 % (41.0-53.0); Hemoglobin 14.6 g/dL (13.5-17.5); Lymphocytes # (auto) 1.2 uL; Lymphocytes % (auto) 33.6 % (10.0-50.0); Mean Corpuscular Hemoglobin 33.1 pg (28.0-32.0); Mean Corpuscular Hgb Conc. 33.9 g/dL (32.0-36.0); Mean Corpuscular Volume 97.8 fL (80.0-100.0); Monocytes # (auto) 0.6 uL; Neutrophils # (auto) 1.7 uL; Neutrophils % (auto) 47.5 % (37.0-80.0); Nucleated Red Blood Cells % 0.3 %; Platelet Count (auto) 154 10^3/uL (140-450); Red Blood Cells 4.41 10^6/uL (4.5-5.90); Red Cell Distribution Width 13.4 % (11.8-14.3); White Blood Cell 3.6 10^3/uL (4.4-10.8)
[2019-07-01 14:04] LABS: Albumin 3.6 g/dL (3.4-5.0); Calcium 8.6 mg/dL (8.5-10.1); Magnesium 2.8 mg/dL (1.6-2.6); Potassium 4.6 mmol/L (3.5-5.1)
[2019-07-01 14:06] LABS: BUN/Creatinine Ratio 16.1; Bilirubin, Total 0.5 mg/dL (0.2-1.0); Total Protein 7.3 g/dL (6.4-8.2)
== END | disposition home or self-care (01) ==
LOC: CHF HDHVI 08:03
PROVIDERS: ATTEND Internal Medicine Cardiovascular Disease
DX: I13.2 Hypertensive heart and chronic kidney disease with heart failure and with stage 5 chronic kidney disease, or end stage renal disease (principal); E11.22 Type 2 diabetes mellitus with diabetic chronic kidney disease; I50.22 Chronic systolic (congestive) heart failure; N18.6 End stage renal disease; I25.10 Atherosclerotic heart disease of native coronary artery without angina pectoris; I42.8 Other cardiomyopathies; D64.9 Anemia, unspecified; E83.40 Disorders of magnesium metabolism, unspecified; I48.1 Persistent atrial fibrillation; F31.9 Bipolar disorder, unspecified; I25.2 Old myocardial infarction; J44.9 Chronic obstructive pulmonary disease, unspecified; K21.9 Gastro-esophageal reflux disease without esophagitis; E78.5 Hyperlipidemia, unspecified; E03.9 Hypothyroidism, unspecified; G89.29 Other chronic pain; M19.072 Primary osteoarthritis, left ankle and foot; E78.00 Pure hypercholesterolemia, unspecified; I27.21 Secondary pulmonary arterial hypertension; E11.21 Type 2 diabetes mellitus with diabetic nephropathy; E11.41 Type 2 diabetes mellitus with diabetic mononeuropathy; E11.51 Type 2 diabetes mellitus with diabetic peripheral angiopathy without gangrene; E11.319 Type 2 diabetes mellitus with unspecified diabetic retinopathy without macular edema; Z79.01 Long term (current) use of anticoagulants; Z86.73 Personal history of transient ischemic attack (TIA), and cerebral infarction without residual deficits; Z85.030 Personal history of malignant carcinoid tumor of large intestine; Z95.5 Presence of coronary angioplasty implant and graft; Z95.1 Presence of aortocoronary bypass graft; Z79.899 Other long term (current) drug therapy; Z87.891 Personal history of nicotine dependence; Z90.49 Acquired absence of other specified parts of digestive tract; Z95.810 Presence of automatic (implantable) cardiac defibrillator
CPT/HCPCS: 36415; 80053; 83735; 83880; 85025; 96365; 96366; G0463; J1250; J1642

== ENCOUNTER → 2019-07-03 | Outpatient (CLI) | payer OTHER ==
[2019-07-03] VITALS (9 sets, daily range): BP systolic 110–141; BP diastolic 62–77
--- NOTE | 2019-07-03 10:56 | NUR ---
Ayah Cath Removal Quinones needle D/C'd by Renetta ALVAREZ after Heparin flush per protocol. See e-MAR for medications given during this visit. Sterile occlusive dressing to site. Patient tolerated procedure well. Site benign post infusion.
--- NOTE | 2019-07-03 11:00 | NUR ---
CHF CLINIC Discharge Instructions See e-MAR for any mediations given with this visit. Patient education given on disease process. Patient verbalized understanding. Previous labs reviewed. Patient discharged in stable condition with after care instructions and follow up appointment. NOTE DOBUTAMINE [id number] ADMIN BY GISELA ALVAREZ HEPARIN ADMIN BY ELSIE ALVAREZ
== END | disposition home or self-care (01) ==
LOC: CHF HDHVI 08:05
PROVIDERS: ATTEND Internal Medicine Cardiovascular Disease
DX: I13.2 Hypertensive heart and chronic kidney disease with heart failure and with stage 5 chronic kidney disease, or end stage renal disease (principal); E11.22 Type 2 diabetes mellitus with diabetic chronic kidney disease; I50.22 Chronic systolic (congestive) heart failure; N18.6 End stage renal disease; I25.10 Atherosclerotic heart disease of native coronary artery without angina pectoris; I48.1 Persistent atrial fibrillation; I42.8 Other cardiomyopathies; I25.2 Old myocardial infarction; I27.21 Secondary pulmonary arterial hypertension; F31.9 Bipolar disorder, unspecified; J44.9 Chronic obstructive pulmonary disease, unspecified; K21.9 Gastro-esophageal reflux disease without esophagitis; E78.5 Hyperlipidemia, unspecified; E03.9 Hypothyroidism, unspecified; G89.29 Other chronic pain; M19.072 Primary osteoarthritis, left ankle and foot; E78.00 Pure hypercholesterolemia, unspecified; E11.41 Type 2 diabetes mellitus with diabetic mononeuropathy; E11.21 Type 2 diabetes mellitus with diabetic nephropathy; E11.51 Type 2 diabetes mellitus with diabetic peripheral angiopathy without gangrene; E11.319 Type 2 diabetes mellitus with unspecified diabetic retinopathy without macular edema; Z90.49 Acquired absence of other specified parts of digestive tract; Z95.1 Presence of aortocoronary bypass graft; Z85.030 Personal history of malignant carcinoid tumor of large intestine; Z95.810 Presence of automatic (implantable) cardiac defibrillator; Z79.01 Long term (current) use of anticoagulants; Z95.5 Presence of coronary angioplasty implant and graft; Z87.891 Personal history of nicotine dependence; Z79.899 Other long term (current) drug therapy; Z86.73 Personal history of transient ischemic attack (TIA), and cerebral infarction without residual deficits
CPT/HCPCS: 96365; 96366; G0463; J1250; J1642

== ENCOUNTER → 2019-07-05 | Outpatient (CLI) | payer OTHER ==
[2019-07-05] VITALS (9 sets, daily range): BP systolic 109–125; BP diastolic 58–74
--- NOTE | 2019-07-05 07:30 | NUR ---
PT. TO CHF CLINIC FOR EVAL. AND TX. ORDERS RECEIVED AND CARRIED OUT, WITH PT. STATING SOB WITH HIS EXERCISE REGIMEN. WT. STABLE, AND HAS BEEN VERY STABLE FOR PAST 2 WEEKS. SEE NSG ASSESS.
--- NOTE | 2019-07-05 07:42 | NUR ---
Clinic Provider Clinic Provider into see pt with new orders received and carried out. Dobutamine gtt started at {5}mcg/kg/hr per MD order.
--- NOTE | 2019-07-05 10:48 | NUR ---
CHF CLINIC Discharge Instructions See e-MAR for any mediations given with this visit. Patient education given on disease process. Patient verbalized understanding. Previous labs reviewed. Patient discharged in stable condition with after care instructions and follow up appointment. NOTE DOBUTAMINE [phone] ADMIN BY GISELA ALVAREZ HEPARIN ADMIN BY MACY ALVAREZ
== END | disposition home or self-care (01) ==
LOC: CHF HDHVI 07:33
PROVIDERS: ATTEND Internal Medicine Cardiovascular Disease
DX: I13.0 Hypertensive heart and chronic kidney disease with heart failure and stage 1 through stage 4 chronic kidney disease, or unspecified chronic kidney disease (principal); E11.22 Type 2 diabetes mellitus with diabetic chronic kidney disease; I50.22 Chronic systolic (congestive) heart failure; N18.6 End stage renal disease; I25.10 Atherosclerotic heart disease of native coronary artery without angina pectoris; I42.8 Other cardiomyopathies; J44.9 Chronic obstructive pulmonary disease, unspecified; I25.2 Old myocardial infarction; I48.1 Persistent atrial fibrillation; F31.9 Bipolar disorder, unspecified; K21.9 Gastro-esophageal reflux disease without esophagitis; E78.5 Hyperlipidemia, unspecified; E03.9 Hypothyroidism, unspecified; G89.29 Other chronic pain; M19.90 Unspecified osteoarthritis, unspecified site; E78.00 Pure hypercholesterolemia, unspecified; E11.41 Type 2 diabetes mellitus with diabetic mononeuropathy; E11.21 Type 2 diabetes mellitus with diabetic nephropathy; E11.51 Type 2 diabetes mellitus with diabetic peripheral angiopathy without gangrene; E11.319 Type 2 diabetes mellitus with unspecified diabetic retinopathy without macular edema; Z95.1 Presence of aortocoronary bypass graft; Z90.49 Acquired absence of other specified parts of digestive tract; Z86.73 Personal history of transient ischemic attack (TIA), and cerebral infarction without residual deficits; Z79.899 Other long term (current) drug therapy; Z79.01 Long term (current) use of anticoagulants; Z95.5 Presence of coronary angioplasty implant and graft; Z87.891 Personal history of nicotine dependence; Z85.030 Personal history of malignant carcinoid tumor of large intestine; Z95.810 Presence of automatic (implantable) cardiac defibrillator
CPT/HCPCS: 96365; 96366; G0463; J1250; J1642

== ENCOUNTER → 2019-07-08 | Outpatient (CLI) | payer OTHER ==
[~2019-07-08] VITALS: Ht 30.5 cm; Wt 86.7 kg
[2019-07-08] VITALS (9 sets, daily range): BP systolic 98–131; BP diastolic 51–67
--- NOTE | 2019-07-08 07:35 | NUR ---
PT. TO CHF CLINIC FOR DOBUTREX INFUSION PER MD ORDER. PT. WITH MORE SOB ON EXERTION OVER THE WEEKEND. ORDERS RECEIVED AND CARRIED OUT. SEE NSG ASSESS.
--- NOTE | 2019-07-08 07:50 | NUR ---
Clinic Provider Clinic Provider into see pt with new orders received and carried out. Dobutamine gtt started at {5}mcg/kg/hr per MD order.
--- NOTE | 2019-07-08 11:05 | NUR ---
Discharge Instructions See e-MAR for any mediations given with this visit. Patient education given on disease process. Patient verbalized understanding. Previous labs reviewed. Patient discharged in stable condition with after care instructions and follow up appointment. medications DOBUTAMINE DRIP [id number] HEPARIN 500 UNIT IVP X 1 Addendum: 07/18/19 at 1501 by VÍCTOR FIGUEROA RN RN [place] LATE ENTRY FOR 07/08/19 DOBUTAMINE DRIP [id number]
[2019-07-18 15:01] VITALS: BP 117/64
== END | disposition home or self-care (01) ==
LOC: CHF HDHVI 07:59
PROVIDERS: ATTEND Internal Medicine Cardiovascular Disease
DX: I13.2 Hypertensive heart and chronic kidney disease with heart failure and with stage 5 chronic kidney disease, or end stage renal disease (principal); E11.22 Type 2 diabetes mellitus with diabetic chronic kidney disease; I50.22 Chronic systolic (congestive) heart failure; N18.6 End stage renal disease; I25.10 Atherosclerotic heart disease of native coronary artery without angina pectoris; I27.21 Secondary pulmonary arterial hypertension; I42.8 Other cardiomyopathies; I48.1 Persistent atrial fibrillation; I25.2 Old myocardial infarction; F31.9 Bipolar disorder, unspecified; J44.9 Chronic obstructive pulmonary disease, unspecified; K21.9 Gastro-esophageal reflux disease without esophagitis; E78.5 Hyperlipidemia, unspecified; E03.9 Hypothyroidism, unspecified; G89.29 Other chronic pain; M19.072 Primary osteoarthritis, left ankle and foot; E78.00 Pure hypercholesterolemia, unspecified; E11.21 Type 2 diabetes mellitus with diabetic nephropathy; E11.41 Type 2 diabetes mellitus with diabetic mononeuropathy; E11.51 Type 2 diabetes mellitus with diabetic peripheral angiopathy without gangrene; E11.319 Type 2 diabetes mellitus with unspecified diabetic retinopathy without macular edema; Z95.810 Presence of automatic (implantable) cardiac defibrillator; Z87.891 Personal history of nicotine dependence; Z85.030 Personal history of malignant carcinoid tumor of large intestine; Z79.01 Long term (current) use of anticoagulants; Z95.1 Presence of aortocoronary bypass graft; Z86.73 Personal history of transient ischemic attack (TIA), and cerebral infarction without residual deficits; Z95.5 Presence of coronary angioplasty implant and graft; Z90.49 Acquired absence of other specified parts of digestive tract
CPT/HCPCS: 96365; 96366; G0463; J1250; J1642

== ENCOUNTER → 2019-07-10 | Outpatient (CLI) | payer OTHER ==
[2019-07-10] VITALS (9 sets, daily range): BP systolic 109–132; BP diastolic 56–73
[~2019-07-10] VITALS: Ht 30.5 cm; Wt 86.7 kg
--- NOTE | 2019-07-10 07:30 | NUR ---
PT. TO CHF CLINIC FOR DOBUTREX INFUSION PER MD ORDER. PT. STAES HE IS FEELING BETTER SINCE LAST TX. SEE NSG ASSESS. ORDERS RECEIVED AND CARRIED OUT.
--- NOTE | 2019-07-10 07:43 | NUR ---
Clinic Provider Clinic Provider into see pt with new orders received and carried out. Dobutamine gtt started at {5}mcg/kg/hr per MD order. .
--- NOTE | 2019-07-10 10:48 | NUR ---
Discharge Instructions See e-MAR for any mediations given with this visit. Patient education given on disease process. Patient verbalized understanding. Previous labs reviewed. Patient discharged in stable condition with after care instructions and follow up appointment. MEDICATIONS DOBUTAMINE DRIP [id number] HEPARIN 500 UNITS IVP
== END | disposition home or self-care (01) ==
LOC: CHF HDHVI 07:32
PROVIDERS: ATTEND Internal Medicine Cardiovascular Disease
DX: I13.2 Hypertensive heart and chronic kidney disease with heart failure and with stage 5 chronic kidney disease, or end stage renal disease (principal); E11.22 Type 2 diabetes mellitus with diabetic chronic kidney disease; I50.22 Chronic systolic (congestive) heart failure; N18.6 End stage renal disease; I25.10 Atherosclerotic heart disease of native coronary artery without angina pectoris; I42.8 Other cardiomyopathies; I25.2 Old myocardial infarction; I27.21 Secondary pulmonary arterial hypertension; F31.9 Bipolar disorder, unspecified; I48.1 Persistent atrial fibrillation; J44.9 Chronic obstructive pulmonary disease, unspecified; K21.9 Gastro-esophageal reflux disease without esophagitis; E78.5 Hyperlipidemia, unspecified; E03.9 Hypothyroidism, unspecified; G89.29 Other chronic pain; E78.00 Pure hypercholesterolemia, unspecified; E11.41 Type 2 diabetes mellitus with diabetic mononeuropathy; E11.21 Type 2 diabetes mellitus with diabetic nephropathy; E11.51 Type 2 diabetes mellitus with diabetic peripheral angiopathy without gangrene; E11.319 Type 2 diabetes mellitus with unspecified diabetic retinopathy without macular edema; M19.072 Primary osteoarthritis, left ankle and foot; Z86.73 Personal history of transient ischemic attack (TIA), and cerebral infarction without residual deficits; Z95.1 Presence of aortocoronary bypass graft; Z95.810 Presence of automatic (implantable) cardiac defibrillator; Z85.030 Personal history of malignant carcinoid tumor of large intestine; Z79.01 Long term (current) use of anticoagulants; Z90.49 Acquired absence of other specified parts of digestive tract; Z95.5 Presence of coronary angioplasty implant and graft; Z87.891 Personal history of nicotine dependence; Z79.899 Other long term (current) drug therapy
CPT/HCPCS: 96365; 96366; G0463; J1250; J1642

== ENCOUNTER → 2019-07-12 | Outpatient (CLI) | payer OTHER ==
[~2019-07-12] VITALS: Ht 180.3 cm; Wt 87.1 kg
--- NOTE | 2019-07-12 07:45 | NUR ---
Ayah Cath Insertion 20 gauge Ayah Cath inserted by Jessica ALVAREZ using sterile technique in the R upper chest with occlusive dressing over saucedo needle. Patient tolerated procedure well. Ordered labs drawn and sent. See e-MAR for medications given during this visit.
[2019-07-12 07:52] VITALS: BP 124/73
[2019-07-12 08:00] VITALS: BP 117/69
[2019-07-12 08:15] VITALS: BP 109/58
[2019-07-12 08:30] VITALS: BP 110/54
[2019-07-12 11:03] VITALS: BP 120/61
--- NOTE | 2019-07-12 11:03 | NUR ---
CHF CLINIC Discharge Instructions See e-MAR for any mediations given with this visit. Patient education given on disease process. Patient verbalized understanding. Previous labs reviewed. Patient discharged in stable condition with after care instructions and follow up appointment. NOTE DOBUTAMINE [id number] ADMIN BY GISELA ALVAREZ HEPARIN ADMIN BY MACY ALVAREZ
== END | disposition home or self-care (01) ==
LOC: CHF HDHVI 07:41
PROVIDERS: ATTEND Internal Medicine Cardiovascular Disease
DX: I13.2 Hypertensive heart and chronic kidney disease with heart failure and with stage 5 chronic kidney disease, or end stage renal disease (principal); I50.84 End stage heart failure; I50.22 Chronic systolic (congestive) heart failure; F32.9 Major depressive disorder, single episode, unspecified; F41.9 Anxiety disorder, unspecified; I25.10 Atherosclerotic heart disease of native coronary artery without angina pectoris; J44.9 Chronic obstructive pulmonary disease, unspecified; N18.6 End stage renal disease; K21.9 Gastro-esophageal reflux disease without esophagitis; E78.5 Hyperlipidemia, unspecified; E03.9 Hypothyroidism, unspecified; I25.2 Old myocardial infarction; G89.29 Other chronic pain; M19.072 Primary osteoarthritis, left ankle and foot; E11.22 Type 2 diabetes mellitus with diabetic chronic kidney disease; E11.21 Type 2 diabetes mellitus with diabetic nephropathy; E11.40 Type 2 diabetes mellitus with diabetic neuropathy, unspecified; E11.51 Type 2 diabetes mellitus with diabetic peripheral angiopathy without gangrene; E11.319 Type 2 diabetes mellitus with unspecified diabetic retinopathy without macular edema; Z90.49 Acquired absence of other specified parts of digestive tract; Z79.01 Long term (current) use of anticoagulants; Z85.030 Personal history of malignant carcinoid tumor of large intestine; Z87.891 Personal history of nicotine dependence; Z95.1 Presence of aortocoronary bypass graft; Z95.810 Presence of automatic (implantable) cardiac defibrillator; Z86.73 Personal history of transient ischemic attack (TIA), and cerebral infarction without residual deficits
CPT/HCPCS: 96365; 96366; G0463; J1250; J1642

== ENCOUNTER → 2019-07-15 | Outpatient (CLI) | payer OTHER ==
[2019-07-15] VITALS (8 sets, daily range): BP systolic 96–111; BP diastolic 50–63
[~2019-07-15] VITALS: Ht 30.5 cm; Wt 0.5 kg
--- NOTE | 2019-07-15 07:30 | NUR ---
CHF PT ARRIVED TO CHF CLINIC , A/O X 3 0 DISTRESS, VSS WNL Addendum: 07/15/19 at 1123 by VÍCTOR FIGUEROA RN RN WI A/0 X 4
--- NOTE | 2019-07-15 07:50 | NUR ---
Ayah Cath Insertion 20 gauge Ayah Cath inserted using sterile technique in the upper chest with occlusive dressing over saucedo needle. Patient tolerated procedure well. Ordered labs drawn and sent. See e-MAR for medications given during this visit. COMPLETED BY ISAC ALVAREZ
--- NOTE | 2019-07-15 10:55 | NUR ---
Ayah Cath Removal Quinones needle D/C'd after Heparin flush per protocol. See e-MAR for medications given during this visit. Sterile occlusive dressing to site. Patient tolerated procedure well. Site benign post infusion. COMPLETED BY TAY ALVAREZ
--- NOTE | 2019-07-15 10:57 | NUR ---
Discharge Instructions See e-MAR for any mediations given with this visit. Patient education given on disease process. Patient verbalized understanding. Previous labs reviewed. Patient discharged in stable condition with after care instructions and follow up appointment. MEDICATIONS DOBUTAMINE DRIP [id number] HEPARIN 500 UNITS IVP
[2019-07-15 12:17] LABS: Basophils # (auto) 0 uL; Basophils % (auto) 0.8 % (0.0-2.0); Eosinophils # (auto) 0.2 uL; Eosinophils % (auto) 4.4 % (0.0-7.0); Hematocrit 42.6 % (41.0-53.0); Hemoglobin 14.7 g/dL (13.5-17.5); Lymphocytes # (auto) 1.1 uL; Lymphocytes % (auto) 31.6 % (10.0-50.0); Mean Corpuscular Hemoglobin 33.6 pg (28.0-32.0); Mean Corpuscular Hgb Conc. 34.6 g/dL (32.0-36.0); Mean Corpuscular Volume 97.3 fL (80.0-100.0); Monocytes # (auto) 0.5 uL; Monocytes % (auto) 13.8 % (0.0-12.0); Neutrophils # (auto) 1.7 uL; Neutrophils % (auto) 49.4 % (37.0-80.0); Platelet Count (auto) 132 10^3/uL (140-450); Red Blood Cells 4.38 10^6/uL (4.5-5.90); Red Cell Distribution Width 13.4 % (11.8-14.3); White Blood Cell 3.5 10^3/uL (4.4-10.8)
[2019-07-15 13:44] LABS: Calcium 8.5 mg/dL (8.5-10.1); Potassium 4.1 mmol/L (3.5-5.1)
[2019-07-15 13:49] LABS: BUN/Creatinine Ratio 16.5
== END | disposition home or self-care (01) ==
LOC: CHF HDHVI 07:52
PROVIDERS: ATTEND Internal Medicine Cardiovascular Disease
DX: I13.2 Hypertensive heart and chronic kidney disease with heart failure and with stage 5 chronic kidney disease, or end stage renal disease (principal); E11.22 Type 2 diabetes mellitus with diabetic chronic kidney disease; I50.22 Chronic systolic (congestive) heart failure; N18.6 End stage renal disease; D64.9 Anemia, unspecified; I25.10 Atherosclerotic heart disease of native coronary artery without angina pectoris; I48.1 Persistent atrial fibrillation; I27.21 Secondary pulmonary arterial hypertension; I25.2 Old myocardial infarction; I42.8 Other cardiomyopathies; F31.9 Bipolar disorder, unspecified; J44.9 Chronic obstructive pulmonary disease, unspecified; K21.9 Gastro-esophageal reflux disease without esophagitis; E78.5 Hyperlipidemia, unspecified; E03.9 Hypothyroidism, unspecified; G89.29 Other chronic pain; M19.072 Primary osteoarthritis, left ankle and foot; E78.00 Pure hypercholesterolemia, unspecified; E11.21 Type 2 diabetes mellitus with diabetic nephropathy; E11.51 Type 2 diabetes mellitus with diabetic peripheral angiopathy without gangrene; E11.319 Type 2 diabetes mellitus with unspecified diabetic retinopathy without macular edema; E11.40 Type 2 diabetes mellitus with diabetic neuropathy, unspecified; Z95.5 Presence of coronary angioplasty implant and graft; Z95.1 Presence of aortocoronary bypass graft; Z85.030 Personal history of malignant carcinoid tumor of large intestine; Z95.810 Presence of automatic (implantable) cardiac defibrillator; Z87.891 Personal history of nicotine dependence; Z79.01 Long term (current) use of anticoagulants; Z79.899 Other long term (current) drug therapy; Z90.49 Acquired absence of other specified parts of digestive tract; Z86.73 Personal history of transient ischemic attack (TIA), and cerebral infarction without residual deficits
CPT/HCPCS: 36415; 80048; 83880; 85025; 96365; 96366; G0463; J1250; J1642

== ENCOUNTER → 2019-07-17 | Outpatient (CLI) | payer OTHER ==
[2019-07-17] VITALS (9 sets, daily range): BP systolic 98–123; BP diastolic 52–70
--- NOTE | 2019-07-17 07:30 | NUR ---
CHF Clinic Provider Clinic Provider updated on pt status new orders received and carried out. Dobutamine gtt started at {5}mcg/kg/hr per MD order.
--- NOTE | 2019-07-17 10:57 | NUR ---
Ayah Cath Removal Quinones needle D/C'd after Heparin flush per protocol. See e-MAR for medications given during this visit. Sterile occlusive dressing to site. Patient tolerated procedure well. Site benign post infusion. BY KAYLEEN ALVAREZ
--- NOTE | 2019-07-17 10:57 | NUR ---
Discharge Instructions See e-MAR for any mediations given with this visit. Patient education given on disease process. Patient verbalized understanding. Previous labs reviewed. Patient discharged in stable condition with after care instructions and follow up appointment. MEDICATIONS DOBUTAMINE DRIP [id number] HEPARIN 500 UNITS IVP X 1
== END | disposition home or self-care (01) ==
LOC: CHF HDHVI 07:58
PROVIDERS: ATTEND Internal Medicine Cardiovascular Disease
DX: I13.2 Hypertensive heart and chronic kidney disease with heart failure and with stage 5 chronic kidney disease, or end stage renal disease (principal); E11.22 Type 2 diabetes mellitus with diabetic chronic kidney disease; I50.22 Chronic systolic (congestive) heart failure; N18.6 End stage renal disease; I48.1 Persistent atrial fibrillation; I25.10 Atherosclerotic heart disease of native coronary artery without angina pectoris; I25.2 Old myocardial infarction; I27.21 Secondary pulmonary arterial hypertension; J44.9 Chronic obstructive pulmonary disease, unspecified; K21.9 Gastro-esophageal reflux disease without esophagitis; E11.51 Type 2 diabetes mellitus with diabetic peripheral angiopathy without gangrene; E11.36 Type 2 diabetes mellitus with diabetic cataract; E11.41 Type 2 diabetes mellitus with diabetic mononeuropathy; E78.5 Hyperlipidemia, unspecified; E03.9 Hypothyroidism, unspecified; G89.29 Other chronic pain; F31.9 Bipolar disorder, unspecified; M19.072 Primary osteoarthritis, left ankle and foot; E78.00 Pure hypercholesterolemia, unspecified; F41.9 Anxiety disorder, unspecified; Z85.038 Personal history of other malignant neoplasm of large intestine; Z87.891 Personal history of nicotine dependence; Z95.1 Presence of aortocoronary bypass graft; Z79.01 Long term (current) use of anticoagulants; Z90.49 Acquired absence of other specified parts of digestive tract; Z79.899 Other long term (current) drug therapy; Z86.73 Personal history of transient ischemic attack (TIA), and cerebral infarction without residual deficits; Z95.810 Presence of automatic (implantable) cardiac defibrillator; Z95.5 Presence of coronary angioplasty implant and graft
CPT/HCPCS: 96365; 96366; G0463; J1250; J1642

== ENCOUNTER → 2019-07-19 | Outpatient (CLI) | payer OTHER ==
[2019-07-19] VITALS (9 sets, daily range): BP systolic 97–111; BP diastolic 51–70
--- NOTE | 2019-07-19 07:30 | NUR ---
PT. TO CHF CLINIC FOR DOBUTREX INFUSION PER MD ORDER. PT. WITH INCREASED ENERGY SINCE LAST TX. ORDERS RECEIVED AND CARRIED OUT. SEE NSG ASSESS.
--- NOTE | 2019-07-19 07:48 | NUR ---
Clinic Provider Clinic Provider into see pt with new orders received and carried out. Dobutamine gtt started at {5}mcg/kg/hr per MD order.
--- NOTE | 2019-07-19 11:00 | NUR ---
CHF VS WNL. RIGHT CHEST PORT SITE BENIGN POST USE. Discharge Instructions See e-MAR for any mediations given with this visit. Patient education given on disease process. Patient verbalized understanding. Previous labs reviewed. Patient discharged in stable condition with after care instructions and follow up appointment FOR Monday07/22/19 MEDICATION ADMINISTRATION DOBUTAMINE GTT START 0745/STOP 1053 HEPARIN IVP TO PORT 1055
== END | disposition home or self-care (01) ==
LOC: CHF HDHVI 07:55
PROVIDERS: ATTEND Internal Medicine Cardiovascular Disease
DX: I13.2 Hypertensive heart and chronic kidney disease with heart failure and with stage 5 chronic kidney disease, or end stage renal disease (principal); E11.22 Type 2 diabetes mellitus with diabetic chronic kidney disease; I50.22 Chronic systolic (congestive) heart failure; N18.6 End stage renal disease; I25.2 Old myocardial infarction; I25.10 Atherosclerotic heart disease of native coronary artery without angina pectoris; I48.1 Persistent atrial fibrillation; I27.21 Secondary pulmonary arterial hypertension; I42.8 Other cardiomyopathies; J44.9 Chronic obstructive pulmonary disease, unspecified; K21.9 Gastro-esophageal reflux disease without esophagitis; E11.51 Type 2 diabetes mellitus with diabetic peripheral angiopathy without gangrene; E11.36 Type 2 diabetes mellitus with diabetic cataract; E78.5 Hyperlipidemia, unspecified; E03.9 Hypothyroidism, unspecified; F41.9 Anxiety disorder, unspecified; F31.9 Bipolar disorder, unspecified; G89.29 Other chronic pain; E78.00 Pure hypercholesterolemia, unspecified; M19.90 Unspecified osteoarthritis, unspecified site; Z85.038 Personal history of other malignant neoplasm of large intestine; Z87.891 Personal history of nicotine dependence; Z90.49 Acquired absence of other specified parts of digestive tract; Z79.899 Other long term (current) drug therapy; Z95.810 Presence of automatic (implantable) cardiac defibrillator; Z79.01 Long term (current) use of anticoagulants; Z95.1 Presence of aortocoronary bypass graft
CPT/HCPCS: 96365; 96366; G0463; J1250; J1642

== ENCOUNTER → 2019-07-22 | Outpatient (CLI) | payer OTHER ==
[~2019-07-22] VITALS: Ht 30.5 cm; Wt 86.9 kg
[2019-07-22] VITALS (8 sets, daily range): BP systolic 94–129; BP diastolic 49–69
--- NOTE | 2019-07-22 07:30 | NUR ---
PT. TO CHF CLINIC FOR DOBUTAMINE INFUSION PER MD ORDER. PT. HAD GOOD WEEKEND WITH MINIMAL SOB ISSUES. ORDERS RECEIVED AND CARRIED OUT. SEE NSG ASSESS.
--- NOTE | 2019-07-22 07:49 | NUR ---
Clinic Provider Clinic Provider into see pt with new orders received and carried out. Dobutamine gtt started at {5}mcg/kg/hr per MD order.
--- NOTE | 2019-07-22 10:49 | NUR ---
Ayah Cath Removal Quinones needle D/C'd after Heparin flush per protocol. See e-MAR for medications given during this visit. Sterile occlusive dressing to site. Patient tolerated procedure well. Site benign post infusion. MEDICATIONS DOBUTAMINE DRIP [id number] HEPARIN 500 UNITS IVP
== END | disposition home or self-care (01) ==
LOC: CHF HDHVI 08:03
PROVIDERS: ATTEND Internal Medicine Cardiovascular Disease
DX: I13.2 Hypertensive heart and chronic kidney disease with heart failure and with stage 5 chronic kidney disease, or end stage renal disease (principal); E11.22 Type 2 diabetes mellitus with diabetic chronic kidney disease; N18.6 End stage renal disease; I50.22 Chronic systolic (congestive) heart failure; I25.10 Atherosclerotic heart disease of native coronary artery without angina pectoris; I42.8 Other cardiomyopathies; I25.2 Old myocardial infarction; I48.1 Persistent atrial fibrillation; I27.21 Secondary pulmonary arterial hypertension; F41.9 Anxiety disorder, unspecified; F31.9 Bipolar disorder, unspecified; J44.9 Chronic obstructive pulmonary disease, unspecified; K21.9 Gastro-esophageal reflux disease without esophagitis; E78.5 Hyperlipidemia, unspecified; E03.9 Hypothyroidism, unspecified; G89.29 Other chronic pain; M19.072 Primary osteoarthritis, left ankle and foot; E78.00 Pure hypercholesterolemia, unspecified; E11.41 Type 2 diabetes mellitus with diabetic mononeuropathy; E11.21 Type 2 diabetes mellitus with diabetic nephropathy; E11.51 Type 2 diabetes mellitus with diabetic peripheral angiopathy without gangrene; E11.319 Type 2 diabetes mellitus with unspecified diabetic retinopathy without macular edema; Z85.038 Personal history of other malignant neoplasm of large intestine; Z85.810 Personal history of malignant neoplasm of tongue; Z87.891 Personal history of nicotine dependence; Z95.1 Presence of aortocoronary bypass graft; Z79.01 Long term (current) use of anticoagulants; Z95.810 Presence of automatic (implantable) cardiac defibrillator; Z90.49 Acquired absence of other specified parts of digestive tract; Z79.899 Other long term (current) drug therapy; Z86.73 Personal history of transient ischemic attack (TIA), and cerebral infarction without residual deficits
CPT/HCPCS: 96365; 96366; G0463; J1250; J1642

== ENCOUNTER → 2019-07-24 | Outpatient (CLI) | payer OTHER ==
[2019-07-24] VITALS (8 sets, daily range): BP systolic 95–122; BP diastolic 48–67
[~2019-07-24] MED LIST changes: +CYANOCOBALAMIN (B-12) 1000 MCG/1 ML VIAL IM ONE; +CYANOCOBALAMIN (B-12) 1000 MCG/1 ML VIAL ONE
--- NOTE | 2019-07-24 07:30 | NUR ---
PT. TO CHF CLINIC FOR DOBUTREX INFUSION PER MD ORDER. PT. STATES HE'S FEELING BETTER SINCE LAST TX. ORDERS RECEIVED AND CARRIED OUT. SEE NSG ASSESS.
--- NOTE | 2019-07-24 07:41 | NUR ---
Clinic Provider Clinic Provider into see pt with new orders received and carried out. Dobutamine gtt started at {5}mcg/kg/hr per MD order.
--- NOTE | 2019-07-24 10:46 | NUR ---
Discharge Instructions See e-MAR for any mediations given with this visit. Patient education given on disease process. Patient verbalized understanding. Previous labs reviewed. Patient discharged in stable condition with after care instructions and follow up appointment. MEDS DOBUTAMINE DRIP [id number] VITAMIN B12 IM HEPARIN 500 UNITS IVP
== END | disposition home or self-care (01) ==
LOC: CHF HDHVI 07:54
PROVIDERS: ATTEND Internal Medicine Cardiovascular Disease
DX: I13.2 Hypertensive heart and chronic kidney disease with heart failure and with stage 5 chronic kidney disease, or end stage renal disease (principal); E11.22 Type 2 diabetes mellitus with diabetic chronic kidney disease; N18.6 End stage renal disease; I50.22 Chronic systolic (congestive) heart failure; I25.10 Atherosclerotic heart disease of native coronary artery without angina pectoris; I27.21 Secondary pulmonary arterial hypertension; I48.1 Persistent atrial fibrillation; I25.2 Old myocardial infarction; I42.8 Other cardiomyopathies; D64.9 Anemia, unspecified; F41.9 Anxiety disorder, unspecified; F31.9 Bipolar disorder, unspecified; J44.9 Chronic obstructive pulmonary disease, unspecified; K21.9 Gastro-esophageal reflux disease without esophagitis; E78.5 Hyperlipidemia, unspecified; E03.9 Hypothyroidism, unspecified; G89.29 Other chronic pain; E78.00 Pure hypercholesterolemia, unspecified; E11.51 Type 2 diabetes mellitus with diabetic peripheral angiopathy without gangrene; E11.319 Type 2 diabetes mellitus with unspecified diabetic retinopathy without macular edema; M19.072 Primary osteoarthritis, left ankle and foot; E11.41 Type 2 diabetes mellitus with diabetic mononeuropathy; E11.21 Type 2 diabetes mellitus with diabetic nephropathy; Z79.899 Other long term (current) drug therapy; Z85.038 Personal history of other malignant neoplasm of large intestine; Z90.49 Acquired absence of other specified parts of digestive tract; Z95.5 Presence of coronary angioplasty implant and graft; Z79.01 Long term (current) use of anticoagulants; Z87.891 Personal history of nicotine dependence; Z86.73 Personal history of transient ischemic attack (TIA), and cerebral infarction without residual deficits; Z95.1 Presence of aortocoronary bypass graft; Z85.810 Personal history of malignant neoplasm of tongue
CPT/HCPCS: 96365; 96366; 96372; G0463; J1250; J1642; J3420

== ENCOUNTER → 2019-07-26 | Outpatient (CLI) | payer OTHER ==
[~2019-07-26] VITALS: Ht 180.3 cm; Wt 86.9 kg
[2019-07-26] VITALS (9 sets, daily range): BP systolic 94–120; BP diastolic 44–62
[~2019-07-26] MED LIST changes: -CYANOCOBALAMIN (B-12) 1000 MCG/1 ML VIAL IM ONE; -CYANOCOBALAMIN (B-12) 1000 MCG/1 ML VIAL ONE
--- NOTE | 2019-07-26 07:35 | NUR ---
PT. TO CHF CLINIC FOR DOBUTREX INFUSION PER MD ORDER. PT. HAS BEEN INSTRUCTED ABOUT CLINIC CLOSURE NEXT MONDAY AND WILL BE SCHEDULED FOR NEXT MONDAY. PT. STATES HE HAS LESS ENERGY SINCE LAST TX. MD ORDERS RECEIVED AND CARRIED OUT. SEE NSG. ASSESS.
--- NOTE | 2019-07-26 07:45 | NUR ---
Clinic Provider Clinic Provider into see pt with new orders received and carried out. Dobutamine gtt started at {5}mcg/kg/hr per MD order.
--- NOTE | 2019-07-26 10:50 | NUR ---
CHF CLINIC Discharge Instructions See e-MAR for any mediations given with this visit. Patient education given on disease process. Patient verbalized understanding. Previous labs reviewed. Patient discharged in stable condition with after care instructions and follow up appointment. Note Dobutamine [id number] admin by Roscoe ALVAREZ Heparin admin by Aisha ALVAREZ
== END | disposition home or self-care (01) ==
LOC: CHF HDHVI 08:11
PROVIDERS: ATTEND Internal Medicine Cardiovascular Disease
DX: I13.2 Hypertensive heart and chronic kidney disease with heart failure and with stage 5 chronic kidney disease, or end stage renal disease (principal); E11.22 Type 2 diabetes mellitus with diabetic chronic kidney disease; N18.6 End stage renal disease; I50.22 Chronic systolic (congestive) heart failure; I42.8 Other cardiomyopathies; F41.9 Anxiety disorder, unspecified; I25.10 Atherosclerotic heart disease of native coronary artery without angina pectoris; I48.1 Persistent atrial fibrillation; I25.2 Old myocardial infarction; I27.21 Secondary pulmonary arterial hypertension; F31.9 Bipolar disorder, unspecified; J44.9 Chronic obstructive pulmonary disease, unspecified; K21.9 Gastro-esophageal reflux disease without esophagitis; E78.5 Hyperlipidemia, unspecified; E03.9 Hypothyroidism, unspecified; G89.29 Other chronic pain; M19.072 Primary osteoarthritis, left ankle and foot; E78.00 Pure hypercholesterolemia, unspecified; E11.41 Type 2 diabetes mellitus with diabetic mononeuropathy; E11.51 Type 2 diabetes mellitus with diabetic peripheral angiopathy without gangrene; E11.319 Type 2 diabetes mellitus with unspecified diabetic retinopathy without macular edema; Z95.810 Presence of automatic (implantable) cardiac defibrillator; Z85.810 Personal history of malignant neoplasm of tongue; Z87.891 Personal history of nicotine dependence; Z86.73 Personal history of transient ischemic attack (TIA), and cerebral infarction without residual deficits; Z95.1 Presence of aortocoronary bypass graft; Z95.5 Presence of coronary angioplasty implant and graft; Z85.030 Personal history of malignant carcinoid tumor of large intestine; Z79.01 Long term (current) use of anticoagulants; Z79.899 Other long term (current) drug therapy; Z90.49 Acquired absence of other specified parts of digestive tract
CPT/HCPCS: 96365; 96366; G0463; J1250; J1642

== ENCOUNTER → 2019-07-30 | Outpatient (CLI) | payer OTHER ==
[2019-07-30] VITALS (9 sets, daily range): BP systolic 95–129; BP diastolic 53–70
[~2019-07-30] VITALS: Ht 180.3 cm; Wt 87.1 kg
--- NOTE | 2019-07-30 10:51 | NUR ---
Discharge Instructions See e-MAR for any mediations given with this visit. Patient education given on disease process. Patient verbalized understanding. Previous labs reviewed. Patient discharged in stable condition with after care instructions and follow up appointment. MEDS DOBUTAMINE DRIP [id number] HEPARIN 500 UNITS IVP X 1
== END | disposition home or self-care (01) ==
LOC: CHF HDHVI 08:04
PROVIDERS: ATTEND Internal Medicine Cardiovascular Disease
DX: I13.2 Hypertensive heart and chronic kidney disease with heart failure and with stage 5 chronic kidney disease, or end stage renal disease (principal); E11.22 Type 2 diabetes mellitus with diabetic chronic kidney disease; N18.6 End stage renal disease; I50.22 Chronic systolic (congestive) heart failure; I25.10 Atherosclerotic heart disease of native coronary artery without angina pectoris; I25.2 Old myocardial infarction; I48.1 Persistent atrial fibrillation; I42.8 Other cardiomyopathies; R53.83 Other fatigue; F41.9 Anxiety disorder, unspecified; F31.9 Bipolar disorder, unspecified; J44.9 Chronic obstructive pulmonary disease, unspecified; K21.9 Gastro-esophageal reflux disease without esophagitis; E78.5 Hyperlipidemia, unspecified; E03.9 Hypothyroidism, unspecified; G89.29 Other chronic pain; M19.072 Primary osteoarthritis, left ankle and foot; E78.00 Pure hypercholesterolemia, unspecified; E11.41 Type 2 diabetes mellitus with diabetic mononeuropathy; E11.51 Type 2 diabetes mellitus with diabetic peripheral angiopathy without gangrene; E11.319 Type 2 diabetes mellitus with unspecified diabetic retinopathy without macular edema; E11.21 Type 2 diabetes mellitus with diabetic nephropathy; Z79.899 Other long term (current) drug therapy; Z85.030 Personal history of malignant carcinoid tumor of large intestine; Z85.810 Personal history of malignant neoplasm of tongue; Z87.891 Personal history of nicotine dependence; Z95.1 Presence of aortocoronary bypass graft; Z95.810 Presence of automatic (implantable) cardiac defibrillator; Z95.5 Presence of coronary angioplasty implant and graft; Z79.01 Long term (current) use of anticoagulants; Z86.73 Personal history of transient ischemic attack (TIA), and cerebral infarction without residual deficits; Z90.49 Acquired absence of other specified parts of digestive tract
CPT/HCPCS: 96365; 96366; G0463; J1250; J1642

== ENCOUNTER → 2019-08-02 | Outpatient (CLI) | payer OTHER ==
[2019-08-02] VITALS (9 sets, daily range): BP systolic 94–120; BP diastolic 50–65
--- NOTE | 2019-08-02 08:45 | NUR ---
TO APPOINTMENT WITH DR ENGLISH. DOBUTAMINE GTT STOPPED.
--- NOTE | 2019-08-02 09:25 | NUR ---
RETURNED FROM APPOINTMENT WITH DR ENGLISH. BAND AIDS TO RIGHT HAND, MIDDLE AND RING FINGER. PT STATES HE HAD INJECTIONS TO HIS FINGERS. DENIES PAIN. WITHOUT DISTRESS. DOBUTAMINE GTT RESUMED AT 5 MCG/KG/MIN.
--- NOTE | 2019-08-02 11:45 | NUR ---
INFUSION COMPLETED . TOLERATED WELL. VS WNL. Ayah Cath Removal Quinones needle D/C'd after Heparin flush per protocol. See e-MAR for medications given during this visit. Sterile occlusive dressing to site. Patient tolerated procedure well. Site benign post infusion. DISCHARGED TO SELF CARE IN NO DISTRESS OR DISCOMFORT. MEDICATION ADMINISTRATION DOBUTAMINE GTT START AT 0748/STOP AT 1145 HEPARIN TO PORT
== END | disposition home or self-care (01) ==
LOC: CHF HDHVI 07:48
PROVIDERS: ATTEND Internal Medicine Cardiovascular Disease
DX: I13.2 Hypertensive heart and chronic kidney disease with heart failure and with stage 5 chronic kidney disease, or end stage renal disease (principal); E11.22 Type 2 diabetes mellitus with diabetic chronic kidney disease; N18.6 End stage renal disease; I50.22 Chronic systolic (congestive) heart failure; D64.9 Anemia, unspecified; I48.91 Unspecified atrial fibrillation; I25.10 Atherosclerotic heart disease of native coronary artery without angina pectoris; I25.2 Old myocardial infarction; I27.21 Secondary pulmonary arterial hypertension; I42.8 Other cardiomyopathies; F31.9 Bipolar disorder, unspecified; J44.9 Chronic obstructive pulmonary disease, unspecified; E78.5 Hyperlipidemia, unspecified; E03.9 Hypothyroidism, unspecified; G89.29 Other chronic pain; E78.00 Pure hypercholesterolemia, unspecified; E11.41 Type 2 diabetes mellitus with diabetic mononeuropathy; E11.21 Type 2 diabetes mellitus with diabetic nephropathy; E11.51 Type 2 diabetes mellitus with diabetic peripheral angiopathy without gangrene; E11.319 Type 2 diabetes mellitus with unspecified diabetic retinopathy without macular edema; F41.9 Anxiety disorder, unspecified; K21.9 Gastro-esophageal reflux disease without esophagitis; M19.072 Primary osteoarthritis, left ankle and foot; Z85.030 Personal history of malignant carcinoid tumor of large intestine; Z85.060 Personal history of malignant carcinoid tumor of small intestine; Z85.810 Personal history of malignant neoplasm of tongue; Z87.891 Personal history of nicotine dependence; Z95.5 Presence of coronary angioplasty implant and graft; Z79.899 Other long term (current) drug therapy; Z90.49 Acquired absence of other specified parts of digestive tract; Z95.810 Presence of automatic (implantable) cardiac defibrillator; Z95.1 Presence of aortocoronary bypass graft; Z79.01 Long term (current) use of anticoagulants; Z86.73 Personal history of transient ischemic attack (TIA), and cerebral infarction without residual deficits
CPT/HCPCS: 96365; 96366; G0463; J1250; J1642

== ENCOUNTER → 2019-08-05 | Outpatient (CLI) | payer OTHER ==
[~2019-08-05] VITALS: Ht 30.5 cm; Wt 39.5 kg
[2019-08-05] VITALS (9 sets, daily range): BP systolic 101–137; BP diastolic 54–74
--- NOTE | 2019-08-05 07:30 | NUR ---
PT. TO CHF CLINIC FOR DOBUTAMINE INFUSION PER MD ORDER. PT. STATES NO INCREASE IN ENERGY SINCE LAST TX. SEE NSG ASSESS. MD ORDERS RECEIVED AND CARRIED OUT.
--- NOTE | 2019-08-05 07:50 | NUR ---
Clinic Provider Clinic Provider into see pt with new orders received and carried out. Dobutamine gtt started at {5}mcg/kg/hr per MD order.
--- NOTE | 2019-08-05 10:53 | NUR ---
Discharge Instructions See e-MAR for any mediations given with this visit. Patient education given on disease process. Patient verbalized understanding. Previous labs reviewed. Patient discharged in stable condition with after care instructions and follow up appointment. MEDS DOBUTAMINE DRIP [id number] HEPARIN 500 UNITS IVP
--- NOTE | 2019-08-05 10:53 | NUR ---
Initial PICC Line PICC line assessed before access for ordered medications per . Port accessed per protocol flushed with 10 ml 0.9% NS prior to administration of ordered medication. See e-MAR for medications given during this visit. Addendum: 08/05/19 at 1212 by VÍCTOR FIGUEROA RN RN [place] Venecia MONAE
== END | disposition home or self-care (01) ==
LOC: CHF HDHVI 07:55
PROVIDERS: ATTEND Internal Medicine Cardiovascular Disease
DX: I13.2 Hypertensive heart and chronic kidney disease with heart failure and with stage 5 chronic kidney disease, or end stage renal disease (principal); N18.6 End stage renal disease; I50.22 Chronic systolic (congestive) heart failure; I50.84 End stage heart failure; F41.9 Anxiety disorder, unspecified; I25.10 Atherosclerotic heart disease of native coronary artery without angina pectoris; F32.9 Major depressive disorder, single episode, unspecified; J44.9 Chronic obstructive pulmonary disease, unspecified; K21.9 Gastro-esophageal reflux disease without esophagitis; E78.5 Hyperlipidemia, unspecified; E03.9 Hypothyroidism, unspecified; I25.2 Old myocardial infarction; G89.29 Other chronic pain; I48.1 Persistent atrial fibrillation; M19.072 Primary osteoarthritis, left ankle and foot; E78.00 Pure hypercholesterolemia, unspecified; E11.22 Type 2 diabetes mellitus with diabetic chronic kidney disease; E11.41 Type 2 diabetes mellitus with diabetic mononeuropathy; E11.21 Type 2 diabetes mellitus with diabetic nephropathy; E11.319 Type 2 diabetes mellitus with unspecified diabetic retinopathy without macular edema; I27.21 Secondary pulmonary arterial hypertension; Z90.49 Acquired absence of other specified parts of digestive tract; Z79.01 Long term (current) use of anticoagulants; Z85.030 Personal history of malignant carcinoid tumor of large intestine; Z87.891 Personal history of nicotine dependence; Z85.810 Personal history of malignant neoplasm of tongue; Z95.1 Presence of aortocoronary bypass graft; Z95.810 Presence of automatic (implantable) cardiac defibrillator; Z86.73 Personal history of transient ischemic attack (TIA), and cerebral infarction without residual deficits
CPT/HCPCS: 96365; 96366; G0463; J1250; J1642

== ENCOUNTER → 2019-08-07 | Outpatient (CLI) | payer OTHER ==
[2019-08-07] VITALS (9 sets, daily range): BP systolic 108–127; BP diastolic 55–71
[~2019-08-07] MED LIST changes: +CATHFLO ACTIVASE (ALTEPLASE) 2 MG VIAL IV ONE
--- NOTE | 2019-08-07 07:30 | NUR ---
PT. TO CHF CLINIC [facility] DOBUTAMINE INFUSION PER MD ORDER. PT. TO HAVE CATH RIYA INJECTION VIA LORRI CATH DUE TO INABILITY TO DRAW LABS AT PRIOUS CHF VISITS. ORDERS RECEIVED AND CARRIED OUT. SEE NSG ASSESS.
--- NOTE | 2019-08-07 07:35 | NUR ---
CARDIODYNAMICS DONE PER MD ORDER. RESULTS REVIEWED WITH PT. AND MD.
--- NOTE | 2019-08-07 07:50 | NUR ---
Ayah Cath Insertion 20 gauge Ayah Cath inserted using sterile technique in the upper chest with occlusive dressing over saucedo needle. Patient tolerated procedure well. See e-MAR for medications given during this visit. PT. TO RECEIVE CATH RIYA PER MD ORDER AND PROTOCOL.
--- NOTE | 2019-08-07 07:57 | NUR ---
MEDS: CATH RIYA 2 MG/2.2CC INJECTED IN ESPINOZA/ LORRI CATH SITE PER MD ORDER.
--- NOTE | 2019-08-07 08:35 | NUR ---
MEDS: CATH RIYA ASPIRATED WITH BLOOD WITH MUCH LESS RESISTANCE. ORDERED LABS DRAWN AND SENT. ESPINOZA FLUSHES EASILY.
--- NOTE | 2019-08-07 09:03 | NUR ---
MEDS: DOBUTREX STARTED AT 5 MCG/KG/MIN PER MD ORDER.
--- NOTE | 2019-08-07 10:30 | NUR ---
BRP, WITHOUT ASSIST. MEDS RESUMED. VSS
--- NOTE | 2019-08-07 12:00 | NUR ---
MEDS:Ayah Cath Removal Quinones needle D/C'd after Heparin flush per protocol. See e-MAR for medications given during this visit. Sterile occlusive dressing to site. Patient tolerated procedure well. Site benign post infusion.
[2019-08-07 12:05] LABS: Basophils # (auto) 0 uL; Basophils % (auto) 0.2 % (0.0-2.0); Eosinophils # (auto) 0 uL; Eosinophils % (auto) 0.7 % (0.0-7.0); Hematocrit 41.8 % (41.0-53.0); Hemoglobin 14.3 g/dL (13.5-17.5); Lymphocytes # (auto) 1.2 uL; Lymphocytes % (auto) 23.6 % (10.0-50.0); Mean Corpuscular Hemoglobin 33.3 pg (28.0-32.0); Mean Corpuscular Hgb Conc. 34.2 g/dL (32.0-36.0); Mean Corpuscular Volume 97.4 fL (80.0-100.0); Monocytes # (auto) 0.8 uL; Monocytes % (auto) 15.2 % (0.0-12.0); Neutrophils # (auto) 3.1 uL; Neutrophils % (auto) 60.3 % (37.0-80.0); Nucleated Red Blood Cells % 0.1 %; Platelet Count (auto) 165 10^3/uL (140-450); Red Cell Distribution Width 13.4 % (11.8-14.3); White Blood Cell 5.1 10^3/uL (4.4-10.8)
[2019-08-07 12:30] LABS: Calcium 8.8 mg/dL (8.5-10.1); Magnesium 2.6 mg/dL (1.6-2.6); Potassium 4.6 mmol/L (3.5-5.1)
[2019-08-07 12:39] LABS: BUN/Creatinine Ratio 18.5
== END | disposition home or self-care (01) ==
LOC: CHF HDHVI 08:02
PROVIDERS: ATTEND Internal Medicine Cardiovascular Disease
DX: I13.2 Hypertensive heart and chronic kidney disease with heart failure and with stage 5 chronic kidney disease, or end stage renal disease (principal); E11.22 Type 2 diabetes mellitus with diabetic chronic kidney disease; N18.6 End stage renal disease; I50.23 Acute on chronic systolic (congestive) heart failure; D64.9 Anemia, unspecified; E83.40 Disorders of magnesium metabolism, unspecified; I25.10 Atherosclerotic heart disease of native coronary artery without angina pectoris; I48.1 Persistent atrial fibrillation; I42.8 Other cardiomyopathies; I27.21 Secondary pulmonary arterial hypertension; I25.2 Old myocardial infarction; F31.9 Bipolar disorder, unspecified; J44.9 Chronic obstructive pulmonary disease, unspecified; E78.5 Hyperlipidemia, unspecified; E03.9 Hypothyroidism, unspecified; G89.29 Other chronic pain; E78.00 Pure hypercholesterolemia, unspecified; E11.41 Type 2 diabetes mellitus with diabetic mononeuropathy; E11.51 Type 2 diabetes mellitus with diabetic peripheral angiopathy without gangrene; E11.319 Type 2 diabetes mellitus with unspecified diabetic retinopathy without macular edema; M19.90 Unspecified osteoarthritis, unspecified site; F41.9 Anxiety disorder, unspecified; K21.9 Gastro-esophageal reflux disease without esophagitis; Z95.1 Presence of aortocoronary bypass graft; Z85.030 Personal history of malignant carcinoid tumor of large intestine; Z85.060 Personal history of malignant carcinoid tumor of small intestine; Z85.810 Personal history of malignant neoplasm of tongue; Z87.891 Personal history of nicotine dependence; Z95.5 Presence of coronary angioplasty implant and graft; Z95.810 Presence of automatic (implantable) cardiac defibrillator; Z86.73 Personal history of transient ischemic attack (TIA), and cerebral infarction without residual deficits; Z79.01 Long term (current) use of anticoagulants; Z90.49 Acquired absence of other specified parts of digestive tract; Z79.899 Other long term (current) drug therapy
CPT/HCPCS: 36415; 80048; 83735; 83880; 85025; 93701; 96365; 96366; G0463; J1250; J1642; J2997; 96374

== ENCOUNTER → 2019-08-09 | Outpatient (CLI) | payer OTHER ==
[2019-08-09] VITALS (9 sets, daily range): BP systolic 93–135; BP diastolic 48–72
[~2019-08-09] MED LIST changes: -CATHFLO ACTIVASE (ALTEPLASE) 2 MG VIAL IV ONE
--- NOTE | 2019-08-09 07:47 | NUR ---
Clinic Provider Clinic Provider into see pt with new orders received and carried out. Dobutamine gtt started at {5}mcg/kg/hr per MD order.
--- NOTE | 2019-08-09 10:55 | NUR ---
CHF CLINIC Discharge Instructions See e-MAR for any mediations given with this visit. Patient education given on disease process. Patient verbalized understanding. Previous labs reviewed. Patient discharged in stable condition with after care instructions and follow up appointment. NOTE DOBUTAMINE [id number] ADMIN BY GISELA ALVAREZ HEPARIN ADMIN BY MACY ALVAREZ DUPLICATE ORDERS PUT IN AND CORRECTED IN ORDERS AND ON THE EMAR.
== END | disposition home or self-care (01) ==
LOC: CHF HDHVI 08:29
PROVIDERS: ATTEND Internal Medicine Cardiovascular Disease
DX: I13.2 Hypertensive heart and chronic kidney disease with heart failure and with stage 5 chronic kidney disease, or end stage renal disease (principal); E11.22 Type 2 diabetes mellitus with diabetic chronic kidney disease; N18.6 End stage renal disease; I50.22 Chronic systolic (congestive) heart failure; I48.1 Persistent atrial fibrillation; D64.9 Anemia, unspecified; F41.9 Anxiety disorder, unspecified; I25.10 Atherosclerotic heart disease of native coronary artery without angina pectoris; I42.8 Other cardiomyopathies; I27.21 Secondary pulmonary arterial hypertension; I25.2 Old myocardial infarction; J44.9 Chronic obstructive pulmonary disease, unspecified; K21.9 Gastro-esophageal reflux disease without esophagitis; E78.5 Hyperlipidemia, unspecified; E03.9 Hypothyroidism, unspecified; G89.29 Other chronic pain; M19.072 Primary osteoarthritis, left ankle and foot; E78.00 Pure hypercholesterolemia, unspecified; E11.41 Type 2 diabetes mellitus with diabetic mononeuropathy; E11.21 Type 2 diabetes mellitus with diabetic nephropathy; E11.319 Type 2 diabetes mellitus with unspecified diabetic retinopathy without macular edema; F31.9 Bipolar disorder, unspecified; Z79.899 Other long term (current) drug therapy; Z85.810 Personal history of malignant neoplasm of tongue; Z87.891 Personal history of nicotine dependence; Z95.1 Presence of aortocoronary bypass graft; Z95.810 Presence of automatic (implantable) cardiac defibrillator; Z85.060 Personal history of malignant carcinoid tumor of small intestine; Z90.49 Acquired absence of other specified parts of digestive tract; Z86.73 Personal history of transient ischemic attack (TIA), and cerebral infarction without residual deficits; Z79.01 Long term (current) use of anticoagulants
CPT/HCPCS: 96365; 96366; G0463; J1250; J1642

== ENCOUNTER → 2019-08-12 | Outpatient (CLI) | payer OTHER ==
[2019-08-12] VITALS (9 sets, daily range): BP systolic 93–127; BP diastolic 49–70
--- NOTE | 2019-08-12 07:45 | NUR ---
Ayah Cath Insertion 20 gauge Ayah Cath inserted by Ebony ALVAREZ using sterile technique in the R upper chest with occlusive dressing over saucedo needle. Patient tolerated procedure well. Ordered labs drawn and sent. See e-MAR for medications given during this visit.
--- NOTE | 2019-08-12 11:01 | NUR ---
CHF CLINIC Discharge Instructions See e-MAR for any mediations given with this visit. Patient education given on disease process. Patient verbalized understanding. Previous labs reviewed. Patient discharged in stable condition with after care instructions and follow up appointment. NOTE DOBUTAMINE [id number] ADMIN BY VÍCTOR ALVAREZ. HEPARIN ADMIN BY ISAC ALVAREZ.
== END | disposition home or self-care (01) ==
LOC: CHF HDHVI 08:07
PROVIDERS: ATTEND Internal Medicine Cardiovascular Disease
DX: I13.2 Hypertensive heart and chronic kidney disease with heart failure and with stage 5 chronic kidney disease, or end stage renal disease (principal); E11.22 Type 2 diabetes mellitus with diabetic chronic kidney disease; N18.6 End stage renal disease; I50.22 Chronic systolic (congestive) heart failure; I25.10 Atherosclerotic heart disease of native coronary artery without angina pectoris; I48.1 Persistent atrial fibrillation; I27.21 Secondary pulmonary arterial hypertension; I25.2 Old myocardial infarction; I42.8 Other cardiomyopathies; F41.9 Anxiety disorder, unspecified; F31.9 Bipolar disorder, unspecified; J44.9 Chronic obstructive pulmonary disease, unspecified; K21.9 Gastro-esophageal reflux disease without esophagitis; E78.5 Hyperlipidemia, unspecified; E03.9 Hypothyroidism, unspecified; G89.29 Other chronic pain; M19.072 Primary osteoarthritis, left ankle and foot; E78.00 Pure hypercholesterolemia, unspecified; E11.41 Type 2 diabetes mellitus with diabetic mononeuropathy; E11.21 Type 2 diabetes mellitus with diabetic nephropathy; E11.319 Type 2 diabetes mellitus with unspecified diabetic retinopathy without macular edema; E11.51 Type 2 diabetes mellitus with diabetic peripheral angiopathy without gangrene; Z86.73 Personal history of transient ischemic attack (TIA), and cerebral infarction without residual deficits; Z85.060 Personal history of malignant carcinoid tumor of small intestine; Z85.810 Personal history of malignant neoplasm of tongue; Z87.891 Personal history of nicotine dependence; Z95.1 Presence of aortocoronary bypass graft; Z95.810 Presence of automatic (implantable) cardiac defibrillator; Z85.030 Personal history of malignant carcinoid tumor of large intestine; Z95.5 Presence of coronary angioplasty implant and graft; Z90.49 Acquired absence of other specified parts of digestive tract; Z79.899 Other long term (current) drug therapy; Z79.01 Long term (current) use of anticoagulants
CPT/HCPCS: 96365; 96366; G0463; J1250; J1642

== ENCOUNTER → 2019-08-14 | Outpatient (CLI) | payer OTHER ==
[2019-08-14] VITALS (10 sets, daily range): BP systolic 92–123; BP diastolic 42–68
--- NOTE | 2019-08-14 07:30 | NUR ---
PT. TO CHF CLINIC FOR DOBUTAMINE THERAPY PER MD ORDER. PT. STATES HE HAD ICD CHECKED AND REPROGRAMMED YESTERDAY. THIS RN WILL FOLLOW UP WITH CHANGES.. NEW ORDERS RECEIVED AND CARRIED OUT. SEE NSG ASSESS.
--- NOTE | 2019-08-14 07:50 | NUR ---
Clinic Provider Clinic Provider into see pt with new orders received and carried out. Dobutamine gtt started at {5}mcg/kg/hr per MD order.
--- NOTE | 2019-08-14 11:00 | NUR ---
Discharge Instructions See e-MAR for any mediations given with this visit. Patient education given on disease process. Patient verbalized understanding. Previous labs reviewed. Patient discharged in stable condition with after care instructions and follow up appointment. meds dobutamine drip [id number] heparin 500 units ivp
== END | disposition home or self-care (01) ==
LOC: CHF HDHVI 07:53
PROVIDERS: ATTEND Internal Medicine Cardiovascular Disease
DX: I13.2 Hypertensive heart and chronic kidney disease with heart failure and with stage 5 chronic kidney disease, or end stage renal disease (principal); E11.22 Type 2 diabetes mellitus with diabetic chronic kidney disease; N18.6 End stage renal disease; I50.22 Chronic systolic (congestive) heart failure; I25.10 Atherosclerotic heart disease of native coronary artery without angina pectoris; I42.8 Other cardiomyopathies; I48.1 Persistent atrial fibrillation; F31.9 Bipolar disorder, unspecified; J44.9 Chronic obstructive pulmonary disease, unspecified; E78.5 Hyperlipidemia, unspecified; E03.9 Hypothyroidism, unspecified; I25.2 Old myocardial infarction; G89.29 Other chronic pain; E78.00 Pure hypercholesterolemia, unspecified; E11.41 Type 2 diabetes mellitus with diabetic mononeuropathy; E11.21 Type 2 diabetes mellitus with diabetic nephropathy; E11.51 Type 2 diabetes mellitus with diabetic peripheral angiopathy without gangrene; M19.90 Unspecified osteoarthritis, unspecified site; Z85.030 Personal history of malignant carcinoid tumor of large intestine; Z85.060 Personal history of malignant carcinoid tumor of small intestine; Z85.810 Personal history of malignant neoplasm of tongue; Z87.891 Personal history of nicotine dependence; Z79.01 Long term (current) use of anticoagulants
CPT/HCPCS: 96365; 96366; G0463; J1250; J1642

== ENCOUNTER → 2019-08-16 | Outpatient (CLI) | payer OTHER ==
[~2019-08-16] MED LIST changes: +CATHFLO ACTIVASE (ALTEPLASE) 2 MG VIAL IV ONE; -DOBUTamine 1000MCG/ML 250 ML IV ONE; +HEPARIN 1,000 UNITS/ml 1ML VIAL IV ONE; +STERILE WATER 20 ML ONE
[2019-08-16 07:30] VITALS: BP 110/64
--- NOTE | 2019-08-16 07:50 | NUR ---
Ayah Cath Insertion 20 gauge Ayah Cath inserted using sterile technique in the upper chest with occlusive dressing over saucedo needle. Patient tolerated procedure well. NO RETURN BLOOD OBTAINED. PORT HAS BEEN FLUSHING WITH RESISTANCE, CATH FLOW ADMINISTERED.
--- NOTE | 2019-08-16 09:35 | NUR ---
ATTEMPT ASPIRATION. NO BLOOD RETURNED.
--- NOTE | 2019-08-16 10:10 | NUR ---
ATTEMPT ASPIRATION. NO BLOOD RETURNED. REMAINDER OF SECOND DOSE ADMINISTERED.
--- NOTE | 2019-08-16 10:55 | NUR ---
ATTEMPT ASPIRATION WITH GOOD BLOOD RETURN. 10 ML ASPIRATED AND DISCARDED. FLUSHED WELL WITH 0.9NS Ayah Cath Removal Quinones needle D/C'd after Heparin flush per protocol. See e-MAR for medications given during this visit. Sterile occlusive dressing to site. Patient tolerated procedure well. Site benign post infusion. DISCHARGED TO SELF CARE IN NO DISTRESS OR DISCOMFORT. MEDICATION ADMINISTRATION CATH FLOW 2.2 ML X 2 VIALS TO RIGHT CHEST PORT HEPARIN 1000 UNITS IN 10 ML TO RIGHT CHEST PORT
[2019-08-16 11:00] VITALS: BP 110/64
== END | disposition home or self-care (01) ==
LOC: CHF HDHVI 07:34
PROVIDERS: ATTEND Internal Medicine Cardiovascular Disease
DX: I13.2 Hypertensive heart and chronic kidney disease with heart failure and with stage 5 chronic kidney disease, or end stage renal disease (principal); E11.22 Type 2 diabetes mellitus with diabetic chronic kidney disease; N18.6 End stage renal disease; I50.22 Chronic systolic (congestive) heart failure; I25.10 Atherosclerotic heart disease of native coronary artery without angina pectoris; I48.91 Unspecified atrial fibrillation; I25.2 Old myocardial infarction; I48.1 Persistent atrial fibrillation; I42.8 Other cardiomyopathies; F31.9 Bipolar disorder, unspecified; R06.02 Shortness of breath; J44.9 Chronic obstructive pulmonary disease, unspecified; E78.5 Hyperlipidemia, unspecified; E03.9 Hypothyroidism, unspecified; G89.29 Other chronic pain; E78.00 Pure hypercholesterolemia, unspecified; E11.21 Type 2 diabetes mellitus with diabetic nephropathy; E11.41 Type 2 diabetes mellitus with diabetic mononeuropathy; E11.51 Type 2 diabetes mellitus with diabetic peripheral angiopathy without gangrene; F41.9 Anxiety disorder, unspecified; K21.9 Gastro-esophageal reflux disease without esophagitis; M19.072 Primary osteoarthritis, left ankle and foot; Z95.1 Presence of aortocoronary bypass graft; Z95.5 Presence of coronary angioplasty implant and graft; Z85.030 Personal history of malignant carcinoid tumor of large intestine; Z85.060 Personal history of malignant carcinoid tumor of small intestine; Z85.810 Personal history of malignant neoplasm of tongue; Z79.01 Long term (current) use of anticoagulants; Z90.49 Acquired absence of other specified parts of digestive tract; Z87.891 Personal history of nicotine dependence; Z95.810 Presence of automatic (implantable) cardiac defibrillator; Z79.899 Other long term (current) drug therapy; Z86.73 Personal history of transient ischemic attack (TIA), and cerebral infarction without residual deficits
CPT/HCPCS: 71046; G0463; J1642; J2997; 96374

== ENCOUNTER → 2019-08-19 | Outpatient (CLI) | payer OTHER ==
[2019-08-19] VITALS (9 sets, daily range): BP systolic 104–125; BP diastolic 59–68
[~2019-08-19] VITALS: Ht 30.5 cm; Wt 86.2 kg
[~2019-08-19] MED LIST changes: -CATHFLO ACTIVASE (ALTEPLASE) 2 MG VIAL IV ONE; +DOBUTamine 1000MCG/ML 250 ML IV ONE; -HEPARIN 1,000 UNITS/ml 1ML VIAL IV ONE; -STERILE WATER 20 ML ONE
--- NOTE | 2019-08-19 07:30 | NUR ---
IN TO CLINIC FOR SCHEDULED INFUSION. WITHOUT DISTRESS OR DISCOMFORT.
--- NOTE | 2019-08-19 07:45 | NUR ---
RIGHT CHEST PORT ACCESSED AND BLOOD RETURN VERIFIED. LABS DRAWN AND SENT.
--- NOTE | 2019-08-19 07:49 | NUR ---
Clinic Provider Clinic Provider into see pt with new orders received and carried out. Dobutamine gtt started at {5}mcg/kg/hr per MD order.
--- NOTE | 2019-08-19 09:00 | NUR ---
INFUSION ONGOING. WITHOUT COMPLAINT. VS WNL. PORT A CATH SITE PATENT AND BENIGN.
--- NOTE | 2019-08-19 10:00 | NUR ---
INFUSION ONGOING. VS WNL.
--- NOTE | 2019-08-19 10:55 | NUR ---
CHF INFUSION COMPLETED AND PT TOLERATED WELL. WITHOUT COMPLAINT. Ayah Cath Removal Quinones needle D/C'd after Heparin flush per protocol. See e-MAR for medications given during this visit. Sterile occlusive dressing to site. Patient tolerated procedure well. Site benign post infusion.DISCHARGED TO SELF CARE IN NO DISTRESS OR DISCOMFORT. MEDICATION ADMINISTRATION DOBUTAMINE GTT START AT 0749/STOP AT 1050 HEPARIN TO RIGHT CHEST PORT
== END | disposition home or self-care (01) ==
LOC: CHF HDHVI 08:00
PROVIDERS: ATTEND Internal Medicine Cardiovascular Disease
DX: I13.2 Hypertensive heart and chronic kidney disease with heart failure and with stage 5 chronic kidney disease, or end stage renal disease (principal); E11.22 Type 2 diabetes mellitus with diabetic chronic kidney disease; N18.6 End stage renal disease; I50.23 Acute on chronic systolic (congestive) heart failure; I25.10 Atherosclerotic heart disease of native coronary artery without angina pectoris; K90.9 Intestinal malabsorption, unspecified; C61 Malignant neoplasm of prostate; I25.2 Old myocardial infarction; I42.8 Other cardiomyopathies; I48.1 Persistent atrial fibrillation; I27.21 Secondary pulmonary arterial hypertension; R53.83 Other fatigue; F41.9 Anxiety disorder, unspecified; F31.9 Bipolar disorder, unspecified; J44.9 Chronic obstructive pulmonary disease, unspecified; K21.9 Gastro-esophageal reflux disease without esophagitis; E78.5 Hyperlipidemia, unspecified; E03.9 Hypothyroidism, unspecified; G89.29 Other chronic pain; M19.072 Primary osteoarthritis, left ankle and foot; E78.00 Pure hypercholesterolemia, unspecified; E11.41 Type 2 diabetes mellitus with diabetic mononeuropathy; E11.21 Type 2 diabetes mellitus with diabetic nephropathy; E11.51 Type 2 diabetes mellitus with diabetic peripheral angiopathy without gangrene; E11.319 Type 2 diabetes mellitus with unspecified diabetic retinopathy without macular edema; Z85.030 Personal history of malignant carcinoid tumor of large intestine; Z85.060 Personal history of malignant carcinoid tumor of small intestine; Z85.810 Personal history of malignant neoplasm of tongue; Z87.891 Personal history of nicotine dependence; Z95.1 Presence of aortocoronary bypass graft; Z95.5 Presence of coronary angioplasty implant and graft; Z79.899 Other long term (current) drug therapy; Z95.810 Presence of automatic (implantable) cardiac defibrillator; Z86.73 Personal history of transient ischemic attack (TIA), and cerebral infarction without residual deficits; Z79.01 Long term (current) use of anticoagulants; Z90.49 Acquired absence of other specified parts of digestive tract
CPT/HCPCS: 36415; 82306; 83036; 83880; 84153; 84154; 84443; 96365; 96366; G0463; J1250; J1642

== ENCOUNTER → 2019-08-21 | Outpatient (CLI) | payer OTHER ==
[2019-08-21] VITALS (9 sets, daily range): BP systolic 88–126; BP diastolic 48–70
[~2019-08-21] MED LIST changes: +HEPARIN 1,000 UNITS/ml 1ML VIAL IV ONE
--- NOTE | 2019-08-21 07:30 | NUR ---
IN FOR SCHEDULED INFUSION. Ayah Cath Insertion 20 gauge Ayah Cath inserted using sterile technique in the upper chest with occlusive dressing over saucedo needle. Patient tolerated procedure well. See e-MAR for medications given during this visit.
--- NOTE | 2019-08-21 07:44 | NUR ---
Clinic Provider Clinic Provider into see pt with new orders received and carried out. Dobutamine gtt started at {5}mcg/kg/hr per MD order. .
--- NOTE | 2019-08-21 09:23 | NUR ---
INFUSION ONGOING. VS WNL. WITHOUT DISTRESS.
--- NOTE | 2019-08-21 10:00 | NUR ---
VS WNL. INFUSION ONGOING. TOLERATING WELL.
--- NOTE | 2019-08-21 10:49 | NUR ---
CHF Ayah Cath Removal Quinones needle D/C'd after Heparin flush. DUE TO FREQUENT CLOTTING AND INABILITY TO ASPIRATE BLOOD RETURN, NEW ORDER FOR HEAPRIN 1000 UNITS AT COMPLETION OF EACH TREATMENT. See e-MAR for medications given during this visit. Sterile occlusive dressing to site. Patient tolerated procedure well. Site benign post infusion. MEDICATION ADMINISTRATION DOBUTAMINE INFUSION AT 5 MCG/KG/MIN START AT 0744/STOP AT 1045 HEPARIN AT 1048
== END | disposition home or self-care (01) ==
LOC: CHF HDHVI 07:50
PROVIDERS: ATTEND Internal Medicine Cardiovascular Disease
DX: I13.2 Hypertensive heart and chronic kidney disease with heart failure and with stage 5 chronic kidney disease, or end stage renal disease (principal); E11.22 Type 2 diabetes mellitus with diabetic chronic kidney disease; N18.6 End stage renal disease; I50.22 Chronic systolic (congestive) heart failure; I25.10 Atherosclerotic heart disease of native coronary artery without angina pectoris; I25.2 Old myocardial infarction; I42.8 Other cardiomyopathies; I48.1 Persistent atrial fibrillation; I27.21 Secondary pulmonary arterial hypertension; F41.9 Anxiety disorder, unspecified; F31.9 Bipolar disorder, unspecified; J44.9 Chronic obstructive pulmonary disease, unspecified; K21.9 Gastro-esophageal reflux disease without esophagitis; E78.5 Hyperlipidemia, unspecified; E03.9 Hypothyroidism, unspecified; M19.072 Primary osteoarthritis, left ankle and foot; E78.00 Pure hypercholesterolemia, unspecified; E11.21 Type 2 diabetes mellitus with diabetic nephropathy; E11.41 Type 2 diabetes mellitus with diabetic mononeuropathy; E11.51 Type 2 diabetes mellitus with diabetic peripheral angiopathy without gangrene; G89.29 Other chronic pain; Z79.01 Long term (current) use of anticoagulants; Z85.030 Personal history of malignant carcinoid tumor of large intestine; Z85.060 Personal history of malignant carcinoid tumor of small intestine; Z85.810 Personal history of malignant neoplasm of tongue; Z87.891 Personal history of nicotine dependence; Z95.1 Presence of aortocoronary bypass graft; Z95.5 Presence of coronary angioplasty implant and graft; Z95.810 Presence of automatic (implantable) cardiac defibrillator; Z86.73 Personal history of transient ischemic attack (TIA), and cerebral infarction without residual deficits; Z90.49 Acquired absence of other specified parts of digestive tract
CPT/HCPCS: 96365; 96366; G0463; J1250; J1642; J1644

== ENCOUNTER → 2019-08-23 | Outpatient (CLI) | payer OTHER ==
[~2019-08-23] VITALS: Ht 30.5 cm; Wt 39.0 kg
[2019-08-23] VITALS (10 sets, daily range): BP systolic 90–119; BP diastolic 46–67
[~2019-08-23] MED LIST changes: -HEPARIN 1,000 UNITS/ml 1ML VIAL IV ONE
--- NOTE | 2019-08-23 08:45 | NUR ---
INFUSION ONGOING AND TOLERATING WELL.
--- NOTE | 2019-08-23 09:30 | NUR ---
DENIES DISTRESS. DOBUTAMINE GTT AT 5 MCG/KG/MIN.
--- NOTE | 2019-08-23 10:50 | NUR ---
INFUSION COMPLETED. Ayah Cath Removal Quinones needle D/C'd after Heparin flush per protocol. See e-MAR for medications given during this visit. Sterile occlusive dressing to site. Patient tolerated procedure well. Site benign post infusion.
--- NOTE | 2019-08-23 10:56 | NUR ---
CHF INFUSION COMPLETED. TOLERATED WELL. RIGHT CHEST PORT SITE BENIGN POST USE. SEE FREQUENT VITAL SIGNS. NO DISCOMFORT AND NO DISTRESS NOTED. DISCHARGED TO SELF CARE AND RETURN TO CLINIC ON Monday08/26/19
== END | disposition home or self-care (01) ==
LOC: CHF HDHVI 07:32
PROVIDERS: ATTEND Internal Medicine Cardiovascular Disease
DX: I13.2 Hypertensive heart and chronic kidney disease with heart failure and with stage 5 chronic kidney disease, or end stage renal disease (principal); E11.22 Type 2 diabetes mellitus with diabetic chronic kidney disease; N18.6 End stage renal disease; I50.22 Chronic systolic (congestive) heart failure; F41.9 Anxiety disorder, unspecified; I25.10 Atherosclerotic heart disease of native coronary artery without angina pectoris; I25.2 Old myocardial infarction; I48.1 Persistent atrial fibrillation; I42.8 Other cardiomyopathies; I27.21 Secondary pulmonary arterial hypertension; F31.9 Bipolar disorder, unspecified; J44.9 Chronic obstructive pulmonary disease, unspecified; K21.9 Gastro-esophageal reflux disease without esophagitis; E78.5 Hyperlipidemia, unspecified; E03.9 Hypothyroidism, unspecified; G89.29 Other chronic pain; M19.072 Primary osteoarthritis, left ankle and foot; E78.00 Pure hypercholesterolemia, unspecified; E11.41 Type 2 diabetes mellitus with diabetic mononeuropathy; E11.21 Type 2 diabetes mellitus with diabetic nephropathy; E11.51 Type 2 diabetes mellitus with diabetic peripheral angiopathy without gangrene; E11.319 Type 2 diabetes mellitus with unspecified diabetic retinopathy without macular edema; Z85.030 Personal history of malignant carcinoid tumor of large intestine; Z85.060 Personal history of malignant carcinoid tumor of small intestine; Z85.810 Personal history of malignant neoplasm of tongue; Z87.891 Personal history of nicotine dependence; Z95.1 Presence of aortocoronary bypass graft; Z95.5 Presence of coronary angioplasty implant and graft; Z95.810 Presence of automatic (implantable) cardiac defibrillator; Z79.899 Other long term (current) drug therapy; Z90.49 Acquired absence of other specified parts of digestive tract; Z79.01 Long term (current) use of anticoagulants; Z86.73 Personal history of transient ischemic attack (TIA), and cerebral infarction without residual deficits
CPT/HCPCS: 96365; 96366; G0463; J1250; J1642

== ENCOUNTER → 2019-08-26 | Outpatient (CLI) | payer OTHER ==
[~2019-08-26] VITALS: Ht 30.5 cm; Wt 0.5 kg
[2019-08-26] VITALS (9 sets, daily range): BP systolic 87–113; BP diastolic 43–66
[~2019-08-26] MED LIST changes: +CYANOCOBALAMIN (B-12) 1000 MCG/1 ML VIAL IM ONE; +CYANOCOBALAMIN (B-12) 1000 MCG/1 ML VIAL ONE; +HEPARIN 1,000 UNITS/ml 1ML VIAL IV ONE
--- NOTE | 2019-08-26 07:30 | NUR ---
IN TO CLINIC FOR SCHEDULED INFUSION. VSS. WITHOUT DISTRESS.
--- NOTE | 2019-08-26 07:48 | NUR ---
Ayah Cath Insertion 20 gauge Ayah Cath inserted using sterile technique in the upper chest with occlusive dressing over saucedo needle. Patient tolerated procedure well. See e-MAR for medications given during this visit. CLINIC PROVIDER CONSULTED. START DOBUTAMINE GTT AT 5 MCG/KG/MIN
--- NOTE | 2019-08-26 09:00 | NUR ---
VS WNL. INFUSION ONGOING. TOLERATING WELL.
--- NOTE | 2019-08-26 10:00 | NUR ---
DENIES PAIN. AFFECT WITHOUT DISTRESS. IV INFUSING.
--- NOTE | 2019-08-26 11:00 | NUR ---
CHF INFUSION COMPLETED. Ayah Cath Removal Quinones needle D/C'd after Heparin flush per protocol. See e-MAR for medications given during this visit. Sterile occlusive dressing to site. Patient tolerated procedure well. Site benign post infusion. DISCHARGED TO SELF CARE IN NO DISTRESS OR DISCOMFORT. MEDICATION ADMINISTRATION DOBUTAMINE GTT START AT 0745/STOP AT 1050 VIT B12 IM TO LEFT DELTOID AT 1058 HEPARIN IVP TO RIGHT CHEST PORT A CATH AT 1059
== END | disposition home or self-care (01) ==
LOC: CHF HDHVI 07:51
PROVIDERS: ATTEND Internal Medicine Cardiovascular Disease
DX: I13.2 Hypertensive heart and chronic kidney disease with heart failure and with stage 5 chronic kidney disease, or end stage renal disease (principal); E11.22 Type 2 diabetes mellitus with diabetic chronic kidney disease; N18.6 End stage renal disease; I50.22 Chronic systolic (congestive) heart failure; I48.1 Persistent atrial fibrillation; I25.10 Atherosclerotic heart disease of native coronary artery without angina pectoris; I27.21 Secondary pulmonary arterial hypertension; F41.9 Anxiety disorder, unspecified; F31.9 Bipolar disorder, unspecified; J44.9 Chronic obstructive pulmonary disease, unspecified; K21.9 Gastro-esophageal reflux disease without esophagitis; E78.5 Hyperlipidemia, unspecified; E03.9 Hypothyroidism, unspecified; M19.072 Primary osteoarthritis, left ankle and foot; E78.00 Pure hypercholesterolemia, unspecified; E11.41 Type 2 diabetes mellitus with diabetic mononeuropathy; E11.21 Type 2 diabetes mellitus with diabetic nephropathy; E11.51 Type 2 diabetes mellitus with diabetic peripheral angiopathy without gangrene; E11.319 Type 2 diabetes mellitus with unspecified diabetic retinopathy without macular edema; Z85.030 Personal history of malignant carcinoid tumor of large intestine; Z85.060 Personal history of malignant carcinoid tumor of small intestine; Z85.810 Personal history of malignant neoplasm of tongue; Z87.891 Personal history of nicotine dependence; Z95.1 Presence of aortocoronary bypass graft; Z95.5 Presence of coronary angioplasty implant and graft; Z95.810 Presence of automatic (implantable) cardiac defibrillator; Z86.73 Personal history of transient ischemic attack (TIA), and cerebral infarction without residual deficits; Z79.01 Long term (current) use of anticoagulants; Z90.49 Acquired absence of other specified parts of digestive tract
CPT/HCPCS: 96365; 96366; 96372; G0463; J1250; J1642; J1644; J3420

== ENCOUNTER → 2019-08-28 | Outpatient (CLI) | payer OTHER ==
[2019-08-28] VITALS (8 sets, daily range): BP systolic 109–128; BP diastolic 68–78
[~2019-08-28] MED LIST changes: -CYANOCOBALAMIN (B-12) 1000 MCG/1 ML VIAL IM ONE; -CYANOCOBALAMIN (B-12) 1000 MCG/1 ML VIAL ONE; -HEPARIN 1,000 UNITS/ml 1ML VIAL IV ONE
--- NOTE | 2019-08-28 07:30 | NUR ---
PT. TO CHF CLINIC FOR DOBUTAMINE THERAPY PER DR. ENGLISH. PT. STATES HE IS FEELING BETTER SINCE LAST TX. MD ORDERS RECEIVED AND CARRIED OUT. SEE NSG ASSESS.
--- NOTE | 2019-08-28 07:48 | NUR ---
Clinic Provider Clinic Provider into see pt with new orders received and carried out. Dobutamine gtt started at {5}mcg/kg/hr per MD order.
== END | disposition home or self-care (01) ==
LOC: CHF HDHVI 08:04
PROVIDERS: ATTEND Internal Medicine Cardiovascular Disease
DX: I13.2 Hypertensive heart and chronic kidney disease with heart failure and with stage 5 chronic kidney disease, or end stage renal disease (principal); E11.22 Type 2 diabetes mellitus with diabetic chronic kidney disease; N18.6 End stage renal disease; I50.22 Chronic systolic (congestive) heart failure; I25.10 Atherosclerotic heart disease of native coronary artery without angina pectoris; I48.11 Longstanding persistent atrial fibrillation; I42.8 Other cardiomyopathies; I27.21 Secondary pulmonary arterial hypertension; I25.2 Old myocardial infarction; F41.9 Anxiety disorder, unspecified; F31.9 Bipolar disorder, unspecified; K21.9 Gastro-esophageal reflux disease without esophagitis; E78.5 Hyperlipidemia, unspecified; E03.9 Hypothyroidism, unspecified; M19.072 Primary osteoarthritis, left ankle and foot; E78.00 Pure hypercholesterolemia, unspecified; E11.41 Type 2 diabetes mellitus with diabetic mononeuropathy; E11.319 Type 2 diabetes mellitus with unspecified diabetic retinopathy without macular edema; E11.51 Type 2 diabetes mellitus with diabetic peripheral angiopathy without gangrene; G89.29 Other chronic pain; Z79.899 Other long term (current) drug therapy; Z85.030 Personal history of malignant carcinoid tumor of large intestine; Z85.060 Personal history of malignant carcinoid tumor of small intestine; Z85.810 Personal history of malignant neoplasm of tongue; Z87.891 Personal history of nicotine dependence; Z95.1 Presence of aortocoronary bypass graft; Z95.5 Presence of coronary angioplasty implant and graft; Z95.810 Presence of automatic (implantable) cardiac defibrillator; Z86.73 Personal history of transient ischemic attack (TIA), and cerebral infarction without residual deficits; Z90.49 Acquired absence of other specified parts of digestive tract; Z79.01 Long term (current) use of anticoagulants
CPT/HCPCS: 96365; 96366; G0463; J1250; J1642

== ENCOUNTER → 2019-08-30 | Outpatient (CLI) | payer OTHER ==
[2019-08-30] VITALS (9 sets, daily range): BP systolic 91–122; BP diastolic 45–63
--- NOTE | 2019-08-30 09:08 | NUR ---
AFFECT CHEERFUL AND VISITING WITH OTHER PATIENTS. VS WNL
--- NOTE | 2019-08-30 10:51 | NUR ---
CHF CLINIC Discharge Instructions See e-MAR for any mediations given with this visit. Patient education given on disease process. Patient verbalized understanding. Previous labs reviewed. Patient discharged in stable condition with after care instructions and follow up appointment. NOTE DOBUTAMINE INFUSION [id number] ADMIN BY GISELA ALVAREZ. HEPARIN ADMIN BY ISAC ALVAREZ.
== END | disposition home or self-care (01) ==
LOC: CHF HDHVI 07:34
PROVIDERS: ATTEND Internal Medicine Cardiovascular Disease
DX: I13.2 Hypertensive heart and chronic kidney disease with heart failure and with stage 5 chronic kidney disease, or end stage renal disease (principal); E11.22 Type 2 diabetes mellitus with diabetic chronic kidney disease; N18.6 End stage renal disease; I50.22 Chronic systolic (congestive) heart failure; I25.10 Atherosclerotic heart disease of native coronary artery without angina pectoris; I48.11 Longstanding persistent atrial fibrillation; I42.8 Other cardiomyopathies; I27.21 Secondary pulmonary arterial hypertension; I25.2 Old myocardial infarction; F41.9 Anxiety disorder, unspecified; F31.9 Bipolar disorder, unspecified; K21.9 Gastro-esophageal reflux disease without esophagitis; E78.5 Hyperlipidemia, unspecified; E03.9 Hypothyroidism, unspecified; G89.29 Other chronic pain; M19.072 Primary osteoarthritis, left ankle and foot; E78.00 Pure hypercholesterolemia, unspecified; E11.41 Type 2 diabetes mellitus with diabetic mononeuropathy; E11.51 Type 2 diabetes mellitus with diabetic peripheral angiopathy without gangrene; E11.319 Type 2 diabetes mellitus with unspecified diabetic retinopathy without macular edema; J44.9 Chronic obstructive pulmonary disease, unspecified; E11.21 Type 2 diabetes mellitus with diabetic nephropathy; Z79.899 Other long term (current) drug therapy; Z85.030 Personal history of malignant carcinoid tumor of large intestine; Z85.060 Personal history of malignant carcinoid tumor of small intestine; Z85.810 Personal history of malignant neoplasm of tongue; Z87.891 Personal history of nicotine dependence; Z95.1 Presence of aortocoronary bypass graft; Z95.5 Presence of coronary angioplasty implant and graft; Z95.810 Presence of automatic (implantable) cardiac defibrillator; Z86.73 Personal history of transient ischemic attack (TIA), and cerebral infarction without residual deficits; Z90.49 Acquired absence of other specified parts of digestive tract; Z79.01 Long term (current) use of anticoagulants
CPT/HCPCS: 96365; 96366; G0463; J1250; J1642

== ENCOUNTER → 2019-09-02 | Outpatient (CLI) | payer OTHER ==
[2019-09-02] VITALS (9 sets, daily range): BP systolic 96–126; BP diastolic 53–70
--- NOTE | 2019-09-02 10:50 | NUR ---
Discharge Instructions See e-MAR for any mediations given with this visit. Patient education given on disease process. Patient verbalized understanding. Previous labs reviewed. Patient discharged in stable condition with after care instructions and follow up appointment. MEDICATIONS DOBUTAMINE DRIP [id number] HEPARIN 1000 UNITS IVP
== END | disposition home or self-care (01) ==
LOC: CHF HDHVI 08:25
PROVIDERS: ATTEND Internal Medicine Cardiovascular Disease
DX: I13.2 Hypertensive heart and chronic kidney disease with heart failure and with stage 5 chronic kidney disease, or end stage renal disease (principal); E11.22 Type 2 diabetes mellitus with diabetic chronic kidney disease; N18.6 End stage renal disease; I50.22 Chronic systolic (congestive) heart failure; F41.9 Anxiety disorder, unspecified; I25.10 Atherosclerotic heart disease of native coronary artery without angina pectoris; I27.21 Secondary pulmonary arterial hypertension; I48.11 Longstanding persistent atrial fibrillation; I25.2 Old myocardial infarction; I42.8 Other cardiomyopathies; F31.9 Bipolar disorder, unspecified; J44.9 Chronic obstructive pulmonary disease, unspecified; K21.9 Gastro-esophageal reflux disease without esophagitis; E78.5 Hyperlipidemia, unspecified; E03.9 Hypothyroidism, unspecified; G89.29 Other chronic pain; E78.00 Pure hypercholesterolemia, unspecified; E11.41 Type 2 diabetes mellitus with diabetic mononeuropathy; E11.21 Type 2 diabetes mellitus with diabetic nephropathy; E11.51 Type 2 diabetes mellitus with diabetic peripheral angiopathy without gangrene; M19.90 Unspecified osteoarthritis, unspecified site; Z79.899 Other long term (current) drug therapy; Z85.030 Personal history of malignant carcinoid tumor of large intestine; Z85.060 Personal history of malignant carcinoid tumor of small intestine; Z85.810 Personal history of malignant neoplasm of tongue; Z87.891 Personal history of nicotine dependence; Z95.1 Presence of aortocoronary bypass graft; Z95.810 Presence of automatic (implantable) cardiac defibrillator; Z95.5 Presence of coronary angioplasty implant and graft; Z86.73 Personal history of transient ischemic attack (TIA), and cerebral infarction without residual deficits; Z79.01 Long term (current) use of anticoagulants; Z90.49 Acquired absence of other specified parts of digestive tract
CPT/HCPCS: 96365; 96366; G0463; J1250; J1642

== ENCOUNTER → 2019-09-04 | Outpatient (CLI) | payer OTHER ==
[2019-09-04] VITALS (7 sets, daily range): BP systolic 92–126; BP diastolic 49–65
[~2019-09-04] MED LIST changes: +KETOROLAC TROMETH 60MG/2ML VIAL IM ONE; +KETOROLAC TROMETH 60MG/2ML VIAL ONE
--- NOTE | 2019-09-04 07:30 | NUR ---
PT. TO CHF CLINIC FOR DOBUTAMINE INFUSION PER MD ORDER. PT. 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 SEE ORDERS AND NSG ASSESS.
--- NOTE | 2019-09-04 07:30 | NUR ---
Discharge Instructions See e-MAR for any mediations given with this visit. Patient education given on disease process. Patient verbalized understanding. Previous labs reviewed. Patient discharged in stable condition with after care instructions and follow up appointment. MEDICATIONS DOBUTAMINE DRIP [id number] TORADOL IM Addendum: 09/24/19 at 1622 by VÍCTOR MORLEY RN [place] LATE ENTRY FOR 09/04/19 PT DISCHARGED AT 1100
--- NOTE | 2019-09-04 07:43 | NUR ---
Clinic Provider Clinic Provider into see pt with new orders received and carried out. Dobutamine gtt started at {5}mcg/kg/hr per MD order.
--- NOTE | 2019-09-04 09:38 | NUR ---
MEDS: PT. MEDICATED WITH TORADOL 60MG IM RT GLUT. PER MD ORDER FOR LOW BACK PAIN 03/06
--- NOTE | 2019-09-04 10:07 | NUR ---
COMFORT: PT. STATES PAIN COMING DOWN TO 2-3 AFTER MEDS.
== END | disposition home or self-care (01) ==
LOC: CHF HDHVI 07:37
PROVIDERS: ATTEND Internal Medicine Cardiovascular Disease
DX: I13.2 Hypertensive heart and chronic kidney disease with heart failure and with stage 5 chronic kidney disease, or end stage renal disease (principal); E11.22 Type 2 diabetes mellitus with diabetic chronic kidney disease; N18.6 End stage renal disease; I50.22 Chronic systolic (congestive) heart failure; I25.10 Atherosclerotic heart disease of native coronary artery without angina pectoris; I48.11 Longstanding persistent atrial fibrillation; I25.2 Old myocardial infarction; I42.8 Other cardiomyopathies; I27.21 Secondary pulmonary arterial hypertension; E78.5 Hyperlipidemia, unspecified; F41.9 Anxiety disorder, unspecified; F31.9 Bipolar disorder, unspecified; K21.9 Gastro-esophageal reflux disease without esophagitis; E03.9 Hypothyroidism, unspecified; G89.29 Other chronic pain; M19.072 Primary osteoarthritis, left ankle and foot; E78.00 Pure hypercholesterolemia, unspecified; E11.41 Type 2 diabetes mellitus with diabetic mononeuropathy; E11.51 Type 2 diabetes mellitus with diabetic peripheral angiopathy without gangrene; E11.319 Type 2 diabetes mellitus with unspecified diabetic retinopathy without macular edema; Z79.899 Other long term (current) drug therapy; Z85.030 Personal history of malignant carcinoid tumor of large intestine; Z85.060 Personal history of malignant carcinoid tumor of small intestine; Z85.810 Personal history of malignant neoplasm of tongue; Z85.46 Personal history of malignant neoplasm of prostate; Z95.810 Presence of automatic (implantable) cardiac defibrillator; Z95.5 Presence of coronary angioplasty implant and graft; Z87.891 Personal history of nicotine dependence; Z95.1 Presence of aortocoronary bypass graft; Z86.73 Personal history of transient ischemic attack (TIA), and cerebral infarction without residual deficits; Z90.49 Acquired absence of other specified parts of digestive tract; Z79.01 Long term (current) use of anticoagulants
CPT/HCPCS: 96365; 96366; 96372; G0463; J1250; J1642; J1885

== ENCOUNTER → 2019-09-06 | Outpatient (CLI) | payer OTHER ==
[2019-09-06] VITALS (9 sets, daily range): BP systolic 99–126; BP diastolic 54–72
[~2019-09-06] MED LIST changes: -KETOROLAC TROMETH 60MG/2ML VIAL IM ONE; -KETOROLAC TROMETH 60MG/2ML VIAL ONE
--- NOTE | 2019-09-06 10:52 | NUR ---
CHF CLINIC Discharge Instructions See e-MAR for any mediations given with this visit. Patient education given on disease process. Patient verbalized understanding. Previous labs reviewed. Patient discharged in stable condition with after care instructions and follow up appointment. NOTE DOBUTAMINE [id number] ADMIN BY ISAC ALVAREZ HEPARIN ADMIN BY MACY ALVAREZ
== END | disposition home or self-care (01) ==
LOC: CHF HDHVI 07:39
PROVIDERS: ATTEND Internal Medicine Cardiovascular Disease
DX: I13.2 Hypertensive heart and chronic kidney disease with heart failure and with stage 5 chronic kidney disease, or end stage renal disease (principal); E11.22 Type 2 diabetes mellitus with diabetic chronic kidney disease; N18.6 End stage renal disease; I50.22 Chronic systolic (congestive) heart failure; I48.11 Longstanding persistent atrial fibrillation; I25.10 Atherosclerotic heart disease of native coronary artery without angina pectoris; I25.2 Old myocardial infarction; I42.8 Other cardiomyopathies; I27.21 Secondary pulmonary arterial hypertension; F31.9 Bipolar disorder, unspecified; F41.9 Anxiety disorder, unspecified; J44.9 Chronic obstructive pulmonary disease, unspecified; K21.9 Gastro-esophageal reflux disease without esophagitis; E78.5 Hyperlipidemia, unspecified; E03.9 Hypothyroidism, unspecified; G89.29 Other chronic pain; E78.00 Pure hypercholesterolemia, unspecified; E11.41 Type 2 diabetes mellitus with diabetic mononeuropathy; E11.21 Type 2 diabetes mellitus with diabetic nephropathy; E11.51 Type 2 diabetes mellitus with diabetic peripheral angiopathy without gangrene; M19.072 Primary osteoarthritis, left ankle and foot; E11.319 Type 2 diabetes mellitus with unspecified diabetic retinopathy without macular edema; Z79.899 Other long term (current) drug therapy; Z85.030 Personal history of malignant carcinoid tumor of large intestine; Z85.060 Personal history of malignant carcinoid tumor of small intestine; Z85.810 Personal history of malignant neoplasm of tongue; Z87.891 Personal history of nicotine dependence; Z95.5 Presence of coronary angioplasty implant and graft; Z95.1 Presence of aortocoronary bypass graft; Z90.49 Acquired absence of other specified parts of digestive tract; Z79.01 Long term (current) use of anticoagulants; Z86.73 Personal history of transient ischemic attack (TIA), and cerebral infarction without residual deficits; Z95.810 Presence of automatic (implantable) cardiac defibrillator
CPT/HCPCS: 96365; 96366; G0463; J1250; J1642

== ENCOUNTER → 2019-09-09 | Outpatient (CLI) | payer OTHER ==
[2019-09-09] VITALS (10 sets, daily range): BP systolic 83–104; BP diastolic 41–58
--- NOTE | 2019-09-09 07:30 | NUR ---
IN TO CLINIC FOR SCHEDULED INFUSION. VS WNL
--- NOTE | 2019-09-09 09:38 | NUR ---
INFUSION ONGOING. REMAINS ASYMPTOMATIC BUT HYPOTENSIVE. FLUID CHALLENGE INITIATED.
--- NOTE | 2019-09-09 10:00 | NUR ---
FLUID CHALLENGE COMPLETED, RECIEVED 125 ML OF 0.9NS ONLY. CONTINUE TO MONITOR.
--- NOTE | 2019-09-09 11:00 | NUR ---
CHF MEDICATION REVIEW. DISCUSSED REGIMEN WITH DR ENGLISH. PT TO REDUCE METOPROLOL TO 25 MG PO AT HS. ( WAS TAKING 50 MG AT HS AND 25 MG Q AM). REPEAT BACK INSTRUCTIONS OBTAINED. RIGHT CHEST PORT DCD AND SITE BENIGN POST USE. DISCHARGED TO SELF CARE IN NO DISTRESS OR DISCOMFORT. MEDICATION ADMINISTRATION DOBUTAMINE GTT AT 5 MCG/KG/MIN START AT 0749/STOP AT 1049 HEPARIN 1000 UNITS IVP TO RIGHT CHEST PORT
[2019-09-09 12:06] LABS: Basophils # (auto) 0 uL; Basophils % (auto) 0.5 % (0.0-2.0); Eosinophils # (auto) 0 uL; Hematocrit 41.4 % (41.0-53.0); Lymphocytes # (auto) 1.3 uL; Lymphocytes % (auto) 31.2 % (10.0-50.0); Mean Corpuscular Hemoglobin 33.6 pg (28.0-32.0); Mean Corpuscular Hgb Conc. 33.9 g/dL (32.0-36.0); Mean Corpuscular Volume 99.1 fL (80.0-100.0); Monocytes # (auto) 0.6 uL; Monocytes % (auto) 15.1 % (0.0-12.0); Neutrophils # (auto) 2.2 uL; Neutrophils % (auto) 52.2 % (37.0-80.0); Nucleated Red Blood Cells % 0.1 %; Platelet Count (auto) 154 10^3/uL (140-450); Red Blood Cells 4.18 10^6/uL (4.5-5.90); Red Cell Distribution Width 13.9 % (11.8-14.3); White Blood Cell 4.1 10^3/uL (4.4-10.8)
[2019-09-09 12:24] LABS: Potassium 4.4 mmol/L (3.5-5.1)
[2019-09-09 12:33] LABS: Albumin 3.4 g/dL (3.4-5.0); Bilirubin, Total 0.6 mg/dL (0.2-1.0); Calcium 8.6 mg/dL (8.5-10.1); Magnesium 2.4 mg/dL (1.6-2.6)
== END | disposition home or self-care (01) ==
LOC: CHF HDHVI 08:06
PROVIDERS: ATTEND Internal Medicine Cardiovascular Disease
DX: I13.2 Hypertensive heart and chronic kidney disease with heart failure and with stage 5 chronic kidney disease, or end stage renal disease (principal); E11.22 Type 2 diabetes mellitus with diabetic chronic kidney disease; N18.6 End stage renal disease; I50.22 Chronic systolic (congestive) heart failure; I25.10 Atherosclerotic heart disease of native coronary artery without angina pectoris; I48.91 Unspecified atrial fibrillation; I25.2 Old myocardial infarction; I42.8 Other cardiomyopathies; I48.11 Longstanding persistent atrial fibrillation; I27.21 Secondary pulmonary arterial hypertension; F41.9 Anxiety disorder, unspecified; F31.9 Bipolar disorder, unspecified; D64.9 Anemia, unspecified; E83.40 Disorders of magnesium metabolism, unspecified; J44.9 Chronic obstructive pulmonary disease, unspecified; K21.9 Gastro-esophageal reflux disease without esophagitis; E78.5 Hyperlipidemia, unspecified; E03.9 Hypothyroidism, unspecified; G89.29 Other chronic pain; M19.072 Primary osteoarthritis, left ankle and foot; E78.00 Pure hypercholesterolemia, unspecified; E11.21 Type 2 diabetes mellitus with diabetic nephropathy; E11.41 Type 2 diabetes mellitus with diabetic mononeuropathy; E11.51 Type 2 diabetes mellitus with diabetic peripheral angiopathy without gangrene; E11.319 Type 2 diabetes mellitus with unspecified diabetic retinopathy without macular edema; Z79.899 Other long term (current) drug therapy; Z85.030 Personal history of malignant carcinoid tumor of large intestine; Z85.060 Personal history of malignant carcinoid tumor of small intestine; Z85.810 Personal history of malignant neoplasm of tongue; Z87.891 Personal history of nicotine dependence; Z95.1 Presence of aortocoronary bypass graft; Z95.5 Presence of coronary angioplasty implant and graft; Z95.810 Presence of automatic (implantable) cardiac defibrillator; Z79.01 Long term (current) use of anticoagulants; Z90.49 Acquired absence of other specified parts of digestive tract; Z86.73 Personal history of transient ischemic attack (TIA), and cerebral infarction without residual deficits
CPT/HCPCS: 36415; 80053; 83735; 83880; 85025; 96365; 96366; G0463; J1250; J1642

== ENCOUNTER → 2019-09-11 | Outpatient (CLI) | payer OTHER ==
[2019-09-11] VITALS (9 sets, daily range): BP systolic 96–122; BP diastolic 48–65
--- NOTE | 2019-09-11 07:30 | NUR ---
IN TO CLINIC FOR SCHEDULED INFUSION. VS WNL.
--- NOTE | 2019-09-11 10:55 | NUR ---
CHF INFUSION COMPLETED. TOLERATED WELL. VS WNL. RIGHT CHEST PORT DCD AND SITE BENIGN POST USE. DISCHARGED TO SELF CARE IN NO DISTRESS OR DISCOMFORT. MEDICATION ADMINISTRATION DOBUTAMINE INFUSION AT 5 MCG/KG/MIN START AT 1054/STOP AT 1050 HEPARIN 1000 UNITS IVP TO RIGHT CHEST PORT
== END | disposition home or self-care (01) ==
LOC: CHF HDHVI 07:56
PROVIDERS: ATTEND Internal Medicine Cardiovascular Disease
DX: I13.2 Hypertensive heart and chronic kidney disease with heart failure and with stage 5 chronic kidney disease, or end stage renal disease (principal); E11.22 Type 2 diabetes mellitus with diabetic chronic kidney disease; N18.6 End stage renal disease; I50.22 Chronic systolic (congestive) heart failure; F41.9 Anxiety disorder, unspecified; I25.10 Atherosclerotic heart disease of native coronary artery without angina pectoris; I27.21 Secondary pulmonary arterial hypertension; I48.11 Longstanding persistent atrial fibrillation; I25.2 Old myocardial infarction; I42.8 Other cardiomyopathies; F31.9 Bipolar disorder, unspecified; J44.9 Chronic obstructive pulmonary disease, unspecified; K21.9 Gastro-esophageal reflux disease without esophagitis; E78.5 Hyperlipidemia, unspecified; E03.9 Hypothyroidism, unspecified; G89.29 Other chronic pain; M19.072 Primary osteoarthritis, left ankle and foot; E78.00 Pure hypercholesterolemia, unspecified; E11.41 Type 2 diabetes mellitus with diabetic mononeuropathy; E11.51 Type 2 diabetes mellitus with diabetic peripheral angiopathy without gangrene; E11.319 Type 2 diabetes mellitus with unspecified diabetic retinopathy without macular edema; Z79.899 Other long term (current) drug therapy; Z85.030 Personal history of malignant carcinoid tumor of large intestine; Z85.060 Personal history of malignant carcinoid tumor of small intestine; Z85.810 Personal history of malignant neoplasm of tongue; Z87.891 Personal history of nicotine dependence; Z95.1 Presence of aortocoronary bypass graft; Z95.810 Presence of automatic (implantable) cardiac defibrillator; Z95.5 Presence of coronary angioplasty implant and graft; Z79.01 Long term (current) use of anticoagulants; Z86.73 Personal history of transient ischemic attack (TIA), and cerebral infarction without residual deficits; Z90.49 Acquired absence of other specified parts of digestive tract
CPT/HCPCS: 96365; 96366; G0463; J1250; J1642

== ENCOUNTER → 2019-09-13 | Outpatient (CLI) | payer OTHER ==
[2019-09-13] VITALS (10 sets, daily range): BP systolic 99–138; BP diastolic 48–87
[~2019-09-13] MED LIST changes: +DOBUTamine 1000MCG/ML 250 ML IV SCH
--- NOTE | 2019-09-13 07:30 | NUR ---
IN TO CLINIC FOR SCHEDULED INFUSION. VS WNL.
--- NOTE | 2019-09-13 09:57 | NUR ---
DOBUTAMINE INFUSION ONGOING. TOLERATING WELL. VS WNL.
--- NOTE | 2019-09-13 12:10 | NUR ---
CHF COMPLETED INFUSION. INFUSION HELD FOR APPROXIMATELY ONE HOUR WHILE PT WENT TO SEE DR EGNLISH FOR APPOINTMENT. RIGHT CHEST PORT DCD AND SITE BENIGN POST USE. FLUSHED WITH 1000 UNITS OF HEPARIN PER THIS PTS SPECIFIC NEEDS AND ORDERS. DISCHARGED TO SELF CARE IN NO DISTRESS OR DISCOMFORT. MEDICATION ADMINISTRATION DOBUTAMINE GTT AT 5 MCG/ KG (26.01 ML/HR) START AT 0747/STOP AT 1200 HEPARIN 1000 UNITS IVP TO RIGHT CHEST PORT
== END | disposition home or self-care (01) ==
LOC: CHF HDHVI 07:53
PROVIDERS: ATTEND Internal Medicine Cardiovascular Disease
DX: I13.2 Hypertensive heart and chronic kidney disease with heart failure and with stage 5 chronic kidney disease, or end stage renal disease (principal); I50.22 Chronic systolic (congestive) heart failure; N18.6 End stage renal disease; I25.10 Atherosclerotic heart disease of native coronary artery without angina pectoris; I48.11 Longstanding persistent atrial fibrillation; I27.21 Secondary pulmonary arterial hypertension; F31.9 Bipolar disorder, unspecified; J44.9 Chronic obstructive pulmonary disease, unspecified; F41.9 Anxiety disorder, unspecified; K21.9 Gastro-esophageal reflux disease without esophagitis; E78.5 Hyperlipidemia, unspecified; E03.9 Hypothyroidism, unspecified; E78.00 Pure hypercholesterolemia, unspecified; E11.22 Type 2 diabetes mellitus with diabetic chronic kidney disease; E11.41 Type 2 diabetes mellitus with diabetic mononeuropathy; E11.21 Type 2 diabetes mellitus with diabetic nephropathy; E11.51 Type 2 diabetes mellitus with diabetic peripheral angiopathy without gangrene; E11.319 Type 2 diabetes mellitus with unspecified diabetic retinopathy without macular edema; M19.90 Unspecified osteoarthritis, unspecified site; Z79.01 Long term (current) use of anticoagulants; Z85.030 Personal history of malignant carcinoid tumor of large intestine; Z85.060 Personal history of malignant carcinoid tumor of small intestine; Z85.810 Personal history of malignant neoplasm of tongue; Z87.891 Personal history of nicotine dependence; Z95.1 Presence of aortocoronary bypass graft; Z95.810 Presence of automatic (implantable) cardiac defibrillator; Z95.5 Presence of coronary angioplasty implant and graft; Z86.73 Personal history of transient ischemic attack (TIA), and cerebral infarction without residual deficits; Z90.49 Acquired absence of other specified parts of digestive tract
CPT/HCPCS: 96365; 96366; G0463; J1250; J1642

== ENCOUNTER → 2019-09-16 | Outpatient (CLI) | payer OTHER ==
[2019-09-16] VITALS (9 sets, daily range): BP systolic 95–125; BP diastolic 48–59
[~2019-09-16] MED LIST changes: -DOBUTamine 1000MCG/ML 250 ML IV SCH
--- NOTE | 2019-09-16 07:30 | NUR ---
CHF PT ARRIVED AT THE CHF CLINIC FOR WEEKLY THERAPY 0 DISTRESS. VSS A/O X 4
--- NOTE | 2019-09-16 07:35 | NUR ---
Clinic Provider Clinic Provider updated on pt status orders received and carried out. Dobutamine gtt started at {5}mcg/kg/hr per MD order.
--- NOTE | 2019-09-16 10:52 | NUR ---
Discharge Instructions See e-MAR for any mediations given with this visit. Patient education given on disease process. Patient verbalized understanding. Previous labs reviewed. Patient discharged in stable condition with after care instructions and follow up appointment. medications DOBUTAMINE DRIP [id number] HEPARIN IVP
== END | disposition home or self-care (01) ==
LOC: CHF HDHVI 07:57
PROVIDERS: ATTEND Internal Medicine Cardiovascular Disease
DX: I13.2 Hypertensive heart and chronic kidney disease with heart failure and with stage 5 chronic kidney disease, or end stage renal disease (principal); E11.22 Type 2 diabetes mellitus with diabetic chronic kidney disease; I50.22 Chronic systolic (congestive) heart failure; N18.6 End stage renal disease; I25.10 Atherosclerotic heart disease of native coronary artery without angina pectoris; I48.11 Longstanding persistent atrial fibrillation; I27.21 Secondary pulmonary arterial hypertension; I25.2 Old myocardial infarction; I42.8 Other cardiomyopathies; F31.9 Bipolar disorder, unspecified; F41.9 Anxiety disorder, unspecified; J44.9 Chronic obstructive pulmonary disease, unspecified; K21.9 Gastro-esophageal reflux disease without esophagitis; E78.5 Hyperlipidemia, unspecified; E03.9 Hypothyroidism, unspecified; E78.00 Pure hypercholesterolemia, unspecified; E11.41 Type 2 diabetes mellitus with diabetic mononeuropathy; E11.21 Type 2 diabetes mellitus with diabetic nephropathy; E11.51 Type 2 diabetes mellitus with diabetic peripheral angiopathy without gangrene; E11.319 Type 2 diabetes mellitus with unspecified diabetic retinopathy without macular edema; M19.90 Unspecified osteoarthritis, unspecified site; G89.29 Other chronic pain; Z79.01 Long term (current) use of anticoagulants; Z90.49 Acquired absence of other specified parts of digestive tract; Z85.030 Personal history of malignant carcinoid tumor of large intestine; Z85.060 Personal history of malignant carcinoid tumor of small intestine; Z85.810 Personal history of malignant neoplasm of tongue; Z87.891 Personal history of nicotine dependence; Z95.1 Presence of aortocoronary bypass graft; Z95.810 Presence of automatic (implantable) cardiac defibrillator; Z95.5 Presence of coronary angioplasty implant and graft; Z86.73 Personal history of transient ischemic attack (TIA), and cerebral infarction without residual deficits; Z79.899 Other long term (current) drug therapy
CPT/HCPCS: 96365; 96366; G0463; J1250; J1642

== ENCOUNTER → 2019-09-18 | Outpatient (CLI) | payer OTHER ==
[2019-09-18] VITALS (9 sets, daily range): BP systolic 100–125; BP diastolic 49–66
[~2019-09-18] VITALS: Ht 30.5 cm; Wt 86.2 kg
--- NOTE | 2019-09-18 07:30 | NUR ---
PT. TO CHF CLINIC FOR DOBUTAMINE INFUSION PER MD ORDER. PT. STATES FEELING BETTER SINCE LAST TX. ORDERS RECEIVED AND CARRIED OUT. SEE NSG ASSESS.
--- NOTE | 2019-09-18 07:50 | NUR ---
Clinic Provider Clinic Provider into see pt with new orders received and carried out. Dobutamine gtt started at {5}mcg/kg/hr per MD order.
--- NOTE | 2019-09-18 10:55 | NUR ---
Discharge Instructions See e-MAR for any mediations given with this visit. Patient education given on disease process. Patient verbalized understanding. Previous labs reviewed. Patient discharged in stable condition with after care instructions and follow up appointment. medications dobutamine drip [id number] heparin ivp
== END | disposition home or self-care (01) ==
LOC: CHF HDHVI 08:06
PROVIDERS: ATTEND Internal Medicine Cardiovascular Disease
DX: I13.2 Hypertensive heart and chronic kidney disease with heart failure and with stage 5 chronic kidney disease, or end stage renal disease (principal); E11.22 Type 2 diabetes mellitus with diabetic chronic kidney disease; N18.6 End stage renal disease; I50.22 Chronic systolic (congestive) heart failure; I25.10 Atherosclerotic heart disease of native coronary artery without angina pectoris; I42.8 Other cardiomyopathies; I25.2 Old myocardial infarction; I48.11 Longstanding persistent atrial fibrillation; I27.21 Secondary pulmonary arterial hypertension; F41.9 Anxiety disorder, unspecified; F31.9 Bipolar disorder, unspecified; J44.9 Chronic obstructive pulmonary disease, unspecified; K21.9 Gastro-esophageal reflux disease without esophagitis; E78.5 Hyperlipidemia, unspecified; E03.9 Hypothyroidism, unspecified; G89.29 Other chronic pain; E78.00 Pure hypercholesterolemia, unspecified; E11.41 Type 2 diabetes mellitus with diabetic mononeuropathy; E11.21 Type 2 diabetes mellitus with diabetic nephropathy; E11.51 Type 2 diabetes mellitus with diabetic peripheral angiopathy without gangrene; E11.319 Type 2 diabetes mellitus with unspecified diabetic retinopathy without macular edema; M19.072 Primary osteoarthritis, left ankle and foot; Z79.899 Other long term (current) drug therapy; Z85.030 Personal history of malignant carcinoid tumor of large intestine; Z85.060 Personal history of malignant carcinoid tumor of small intestine; Z85.810 Personal history of malignant neoplasm of tongue; Z87.891 Personal history of nicotine dependence; Z95.1 Presence of aortocoronary bypass graft; Z95.810 Presence of automatic (implantable) cardiac defibrillator; Z95.5 Presence of coronary angioplasty implant and graft; Z90.49 Acquired absence of other specified parts of digestive tract; Z79.01 Long term (current) use of anticoagulants
CPT/HCPCS: 96365; 96366; G0463; J1250; J1642

== ENCOUNTER → 2019-09-20 | Outpatient (CLI) | payer OTHER ==
[~2019-09-20] VITALS: Ht 30.5 cm; Wt 86.4 kg
[2019-09-20] VITALS (9 sets, daily range): BP systolic 97–122; BP diastolic 44–62
--- NOTE | 2019-09-20 07:45 | NUR ---
Ayah Cath Insertion 20 gauge Ayah Cath inserted by Maribel ALVAREZ using sterile technique in the R upper chest with occlusive dressing over saucedo needle. Patient tolerated procedure well. Ordered labs drawn and sent. See e-MAR for medications given during this visit.
--- NOTE | 2019-09-20 11:00 | NUR ---
Discharge Instructions See e-MAR for any mediations given with this visit. Patient education given on disease process. Patient verbalized understanding. Previous labs reviewed. Patient discharged in stable condition with after care instructions and follow up appointment. NOTE DOBUTAMINE [id number] ADMIN BY FRAN ALVAREZ HEPARIN ADMIN BY MACY ALVAREZ
== END | disposition home or self-care (01) ==
LOC: CHF HDHVI 08:27
PROVIDERS: ATTEND Internal Medicine Cardiovascular Disease
DX: I13.2 Hypertensive heart and chronic kidney disease with heart failure and with stage 5 chronic kidney disease, or end stage renal disease (principal); I50.23 Acute on chronic systolic (congestive) heart failure; N18.6 End stage renal disease; I50.84 End stage heart failure; F41.9 Anxiety disorder, unspecified; I25.10 Atherosclerotic heart disease of native coronary artery without angina pectoris; F31.9 Bipolar disorder, unspecified; J44.9 Chronic obstructive pulmonary disease, unspecified; K21.9 Gastro-esophageal reflux disease without esophagitis; E78.5 Hyperlipidemia, unspecified; E03.9 Hypothyroidism, unspecified; I48.11 Longstanding persistent atrial fibrillation; I25.2 Old myocardial infarction; G89.29 Other chronic pain; M19.072 Primary osteoarthritis, left ankle and foot; E78.00 Pure hypercholesterolemia, unspecified; I27.21 Secondary pulmonary arterial hypertension; E11.22 Type 2 diabetes mellitus with diabetic chronic kidney disease; E11.41 Type 2 diabetes mellitus with diabetic mononeuropathy; E11.21 Type 2 diabetes mellitus with diabetic nephropathy; E11.51 Type 2 diabetes mellitus with diabetic peripheral angiopathy without gangrene; E11.319 Type 2 diabetes mellitus with unspecified diabetic retinopathy without macular edema; Z86.73 Personal history of transient ischemic attack (TIA), and cerebral infarction without residual deficits; Z90.49 Acquired absence of other specified parts of digestive tract; Z79.01 Long term (current) use of anticoagulants; Z79.899 Other long term (current) drug therapy; Z85.030 Personal history of malignant carcinoid tumor of large intestine; Z85.060 Personal history of malignant carcinoid tumor of small intestine; Z85.810 Personal history of malignant neoplasm of tongue; Z87.891 Personal history of nicotine dependence; Z95.810 Presence of automatic (implantable) cardiac defibrillator; Z95.5 Presence of coronary angioplasty implant and graft; Z85.46 Personal history of malignant neoplasm of prostate
CPT/HCPCS: 96365; 96366; G0463; J1250; J1642

== ENCOUNTER → 2019-09-23 | Outpatient (CLI) | payer OTHER ==
[2019-09-23] VITALS (10 sets, daily range): BP systolic 98–125; BP diastolic 48–67
[~2019-09-23] MED LIST changes: +CYANOCOBALAMIN (B-12) 1000 MCG/1 ML VIAL IM ONE; +CYANOCOBALAMIN (B-12) 1000 MCG/1 ML VIAL ONE
--- NOTE | 2019-09-23 11:10 | NUR ---
CHF CLINIC Discharge Instructions See e-MAR for any mediations given with this visit. Patient education given on disease process. Patient verbalized understanding. Previous labs reviewed. Patient discharged in stable condition with after care instructions and follow up appointment. NOTE DOBUTAMINE [id number] ADMIN BY MACY ALVAREZ. B12 IM R DELTOID ADMIN BY BUDDY CABRAL. HEPARIN ADMIN BY MACY ALVAREZ.
[2019-09-23 12:08] LABS: Basophils # (auto) 0 uL; Basophils % (auto) 0.6 % (0.0-2.0); Eosinophils # (auto) 0.1 uL; Eosinophils % (auto) 1.7 % (0.0-7.0); Hematocrit 40.9 % (41.0-53.0); Hemoglobin 13.8 g/dL (13.5-17.5); Lymphocytes # (auto) 1.1 uL; Lymphocytes % (auto) 27.7 % (10.0-50.0); Mean Corpuscular Hemoglobin 33.5 pg (28.0-32.0); Mean Corpuscular Hgb Conc. 33.8 g/dL (32.0-36.0); Mean Corpuscular Volume 99.1 fL (80.0-100.0); Monocytes # (auto) 0.6 uL; Monocytes % (auto) 14.2 % (0.0-12.0); Neutrophils # (auto) 2.2 uL; Neutrophils % (auto) 55.8 % (37.0-80.0); Platelet Count (auto) 151 10^3/uL (140-450); Red Blood Cells 4.12 10^6/uL (4.5-5.90); Red Cell Distribution Width 14.2 % (11.8-14.3)
[2019-09-23 12:21] LABS: Albumin 3.5 g/dL (3.4-5.0); Calcium 8.3 mg/dL (8.5-10.1); Potassium 4.1 mmol/L (3.5-5.1)
[2019-09-23 12:24] LABS: BUN/Creatinine Ratio 14.4; Magnesium 2.4 mg/dL (1.6-2.6)
[2019-09-23 12:26] LABS: Bilirubin, Total 0.8 mg/dL (0.2-1.0); Total Protein 6.8 g/dL (6.4-8.2)
== END | disposition home or self-care (01) ==
LOC: CHF HDHVI 08:05
PROVIDERS: ATTEND Internal Medicine Cardiovascular Disease
DX: I13.2 Hypertensive heart and chronic kidney disease with heart failure and with stage 5 chronic kidney disease, or end stage renal disease (principal); E11.22 Type 2 diabetes mellitus with diabetic chronic kidney disease; N18.6 End stage renal disease; I50.23 Acute on chronic systolic (congestive) heart failure; I25.10 Atherosclerotic heart disease of native coronary artery without angina pectoris; I27.21 Secondary pulmonary arterial hypertension; I48.11 Longstanding persistent atrial fibrillation; I25.2 Old myocardial infarction; I42.8 Other cardiomyopathies; E83.40 Disorders of magnesium metabolism, unspecified; D64.9 Anemia, unspecified; F41.9 Anxiety disorder, unspecified; F31.9 Bipolar disorder, unspecified; J44.9 Chronic obstructive pulmonary disease, unspecified; K21.9 Gastro-esophageal reflux disease without esophagitis; E78.5 Hyperlipidemia, unspecified; E03.9 Hypothyroidism, unspecified; G89.29 Other chronic pain; M19.072 Primary osteoarthritis, left ankle and foot; E78.00 Pure hypercholesterolemia, unspecified; E11.41 Type 2 diabetes mellitus with diabetic mononeuropathy; E11.21 Type 2 diabetes mellitus with diabetic nephropathy; E11.51 Type 2 diabetes mellitus with diabetic peripheral angiopathy without gangrene; E11.319 Type 2 diabetes mellitus with unspecified diabetic retinopathy without macular edema; Z95.1 Presence of aortocoronary bypass graft; Z79.899 Other long term (current) drug therapy; Z90.49 Acquired absence of other specified parts of digestive tract; Z85.030 Personal history of malignant carcinoid tumor of large intestine; Z85.060 Personal history of malignant carcinoid tumor of small intestine; Z85.810 Personal history of malignant neoplasm of tongue; Z85.46 Personal history of malignant neoplasm of prostate; Z87.891 Personal history of nicotine dependence; Z95.810 Presence of automatic (implantable) cardiac defibrillator; Z95.5 Presence of coronary angioplasty implant and graft; Z79.01 Long term (current) use of anticoagulants; Z86.73 Personal history of transient ischemic attack (TIA), and cerebral infarction without residual deficits
CPT/HCPCS: 36415; 80053; 83735; 83880; 85025; 93701; 96365; 96366; 96372; G0463; J1250; J1642; J3420

== ENCOUNTER → 2019-09-25 | Outpatient (CLI) | payer OTHER ==
[2019-09-25] VITALS (9 sets, daily range): BP systolic 91–122; BP diastolic 46–65
[~2019-09-25] MED LIST changes: -CYANOCOBALAMIN (B-12) 1000 MCG/1 ML VIAL IM ONE; -CYANOCOBALAMIN (B-12) 1000 MCG/1 ML VIAL ONE
--- NOTE | 2019-09-25 11:05 | NUR ---
CHF CLINIC Discharge Instructions See e-MAR for any mediations given with this visit. Patient education given on disease process. Patient verbalized understanding. Previous labs reviewed. Patient discharged in stable condition with after care instructions and follow up appointment. NOTE DOBUTAMINE [id number] ADMIN BY GISELA ALVAREZ HEPARIN ADMIN BY VÍCTOR ALVAREZ
== END | disposition home or self-care (01) ==
LOC: CHF HDHVI 07:49
PROVIDERS: ATTEND Internal Medicine Cardiovascular Disease
DX: I13.2 Hypertensive heart and chronic kidney disease with heart failure and with stage 5 chronic kidney disease, or end stage renal disease (principal); E11.22 Type 2 diabetes mellitus with diabetic chronic kidney disease; N18.6 End stage renal disease; I50.22 Chronic systolic (congestive) heart failure; I25.10 Atherosclerotic heart disease of native coronary artery without angina pectoris; I48.11 Longstanding persistent atrial fibrillation; I25.2 Old myocardial infarction; I42.8 Other cardiomyopathies; I27.21 Secondary pulmonary arterial hypertension; F41.9 Anxiety disorder, unspecified; F31.9 Bipolar disorder, unspecified; J44.9 Chronic obstructive pulmonary disease, unspecified; K21.9 Gastro-esophageal reflux disease without esophagitis; E78.5 Hyperlipidemia, unspecified; E03.9 Hypothyroidism, unspecified; G89.29 Other chronic pain; M19.072 Primary osteoarthritis, left ankle and foot; E78.00 Pure hypercholesterolemia, unspecified; E11.41 Type 2 diabetes mellitus with diabetic mononeuropathy; E11.21 Type 2 diabetes mellitus with diabetic nephropathy; E11.51 Type 2 diabetes mellitus with diabetic peripheral angiopathy without gangrene; E11.319 Type 2 diabetes mellitus with unspecified diabetic retinopathy without macular edema; Z79.899 Other long term (current) drug therapy; Z85.030 Personal history of malignant carcinoid tumor of large intestine; Z90.49 Acquired absence of other specified parts of digestive tract; Z85.060 Personal history of malignant carcinoid tumor of small intestine; Z85.810 Personal history of malignant neoplasm of tongue; Z85.46 Personal history of malignant neoplasm of prostate; Z87.891 Personal history of nicotine dependence; Z95.1 Presence of aortocoronary bypass graft; Z95.810 Presence of automatic (implantable) cardiac defibrillator; Z95.5 Presence of coronary angioplasty implant and graft; Z86.73 Personal history of transient ischemic attack (TIA), and cerebral infarction without residual deficits; Z79.01 Long term (current) use of anticoagulants
CPT/HCPCS: 96365; 96366; G0463; J1250; J1642

== ENCOUNTER → 2019-09-27 | Outpatient (CLI) | payer OTHER ==
[2019-09-27] VITALS (9 sets, daily range): BP systolic 90–122; BP diastolic 43–76
--- NOTE | 2019-09-27 10:55 | NUR ---
Ayah Cath Removal Quinones needle D/C'd by Parris ALVAREZ after Heparin flush per protocol. See e-MAR for medications given during this visit. Sterile occlusive dressing to site. Patient tolerated procedure well. Site benign post infusion.
--- NOTE | 2019-09-27 10:57 | NUR ---
CHF CLINIC Discharge Instructions See e-MAR for any mediations given with this visit. Patient education given on disease process. Patient verbalized understanding. Previous labs reviewed. Patient discharged in stable condition with after care instructions and follow up appointment ON MONDAY. NOTE DOBUTAMINE [id number] ADMIN BY GISELA ALVAREZ HEPARIN ADMIN BY JARETT ALVAREZ
== END | disposition home or self-care (01) ==
LOC: CHF HDHVI 07:46
PROVIDERS: ATTEND Internal Medicine Cardiovascular Disease
DX: I13.2 Hypertensive heart and chronic kidney disease with heart failure and with stage 5 chronic kidney disease, or end stage renal disease (principal); E11.22 Type 2 diabetes mellitus with diabetic chronic kidney disease; N18.6 End stage renal disease; I50.22 Chronic systolic (congestive) heart failure; I25.10 Atherosclerotic heart disease of native coronary artery without angina pectoris; I48.11 Longstanding persistent atrial fibrillation; I25.2 Old myocardial infarction; I42.8 Other cardiomyopathies; I27.21 Secondary pulmonary arterial hypertension; F41.9 Anxiety disorder, unspecified; F31.9 Bipolar disorder, unspecified; J44.9 Chronic obstructive pulmonary disease, unspecified; K21.9 Gastro-esophageal reflux disease without esophagitis; E78.5 Hyperlipidemia, unspecified; E03.9 Hypothyroidism, unspecified; G89.29 Other chronic pain; E78.00 Pure hypercholesterolemia, unspecified; M19.072 Primary osteoarthritis, left ankle and foot; E11.41 Type 2 diabetes mellitus with diabetic mononeuropathy; E11.21 Type 2 diabetes mellitus with diabetic nephropathy; E11.51 Type 2 diabetes mellitus with diabetic peripheral angiopathy without gangrene; E11.319 Type 2 diabetes mellitus with unspecified diabetic retinopathy without macular edema; Z79.899 Other long term (current) drug therapy; Z85.030 Personal history of malignant carcinoid tumor of large intestine; Z85.060 Personal history of malignant carcinoid tumor of small intestine; Z85.810 Personal history of malignant neoplasm of tongue; Z85.46 Personal history of malignant neoplasm of prostate; Z87.891 Personal history of nicotine dependence; Z95.1 Presence of aortocoronary bypass graft; Z95.810 Presence of automatic (implantable) cardiac defibrillator; Z95.5 Presence of coronary angioplasty implant and graft; Z86.73 Personal history of transient ischemic attack (TIA), and cerebral infarction without residual deficits; Z90.49 Acquired absence of other specified parts of digestive tract; Z79.01 Long term (current) use of anticoagulants
CPT/HCPCS: 96365; 96366; G0463; J1250; J1642

== ENCOUNTER → 2019-09-30 | Outpatient (CLI) | payer OTHER ==
[~2019-09-30] VITALS: Ht 30.5 cm; Wt 87.6 kg
[2019-09-30] VITALS (10 sets, daily range): BP systolic 104–137; BP diastolic 44–74
[~2019-09-30] MED LIST changes: +MAGNESIUM OXIDE 400 MG TAB ONE; +MAGNESIUM OXIDE 400 MG TAB PO ONE
--- NOTE | 2019-09-30 07:30 | NUR ---
PT. TO CHF CLINIC FOR DOBUTREX INFUSION PER MD ORDER. PT. STATES HE HAD A GOOD WEEKEND, WITH MINIMAL SOB WITH EXERTION. ORDERS RECEIVED AND CARRIED OUT. SEE NSG. ASSESS.
--- NOTE | 2019-09-30 07:47 | NUR ---
Clinic Provider Clinic Provider into see pt with new orders received and carried out. Dobutamine gtt started at {5}mcg/kg/hr per MD order.
--- NOTE | 2019-09-30 09:15 | NUR ---
PT. C/O INCREASING ARRTHYMIAS. DENIES CHEST PAIN OR SOB. EKG DONE.
--- NOTE | 2019-09-30 09:33 | NUR ---
MED: EKG SHOWS V-PACED RHYTHM WITH OCC. PVC'S PT. MEDICATED WITH MAG OX 400MG PER DR. ENGLISH. PT. REMAINS ASYMPTOMATIC.
--- NOTE | 2019-09-30 12:00 | NUR ---
PACEMAKER PT PACEMAKER INTERROGATED BY [facility]. INCREASED FREQUENCY OF PVCS. PT STATES HE HAS NOT BEEN TAKING HIS DAILY NAPS AND BEEN MORE TIRED. STATES HE WILL TRYU NAPPING TODAY , MAG OXIDE GIVEN MD BETTENCOURT
--- NOTE | 2019-09-30 12:30 | NUR ---
Discharge Instructions See e-MAR for any mediations given with this visit. Patient education given on disease process. Patient verbalized understanding. Previous labs reviewed. Patient discharged in stable condition with after care instructions and follow up appointment. MEDICATIONS DOBUTAMINE DRIP [id number] HEPARIN IVP MAG OXIDE PO
== END | disposition home or self-care (01) ==
LOC: CHF HDHVI 07:40
PROVIDERS: ATTEND Internal Medicine Cardiovascular Disease
DX: I13.2 Hypertensive heart and chronic kidney disease with heart failure and with stage 5 chronic kidney disease, or end stage renal disease (principal); E11.22 Type 2 diabetes mellitus with diabetic chronic kidney disease; N18.6 End stage renal disease; I50.22 Chronic systolic (congestive) heart failure; I50.84 End stage heart failure; I25.10 Atherosclerotic heart disease of native coronary artery without angina pectoris; I27.21 Secondary pulmonary arterial hypertension; E78.5 Hyperlipidemia, unspecified; I49.9 Cardiac arrhythmia, unspecified; I48.11 Longstanding persistent atrial fibrillation; I25.2 Old myocardial infarction; I42.8 Other cardiomyopathies; F41.9 Anxiety disorder, unspecified; F31.9 Bipolar disorder, unspecified; J44.9 Chronic obstructive pulmonary disease, unspecified; K21.9 Gastro-esophageal reflux disease without esophagitis; E03.9 Hypothyroidism, unspecified; G89.29 Other chronic pain; M19.072 Primary osteoarthritis, left ankle and foot; E78.00 Pure hypercholesterolemia, unspecified; E11.41 Type 2 diabetes mellitus with diabetic mononeuropathy; E11.51 Type 2 diabetes mellitus with diabetic peripheral angiopathy without gangrene; E11.319 Type 2 diabetes mellitus with unspecified diabetic retinopathy without macular edema; E11.21 Type 2 diabetes mellitus with diabetic nephropathy; Z79.899 Other long term (current) drug therapy; Z85.038 Personal history of other malignant neoplasm of large intestine; Z90.49 Acquired absence of other specified parts of digestive tract; Z85.030 Personal history of malignant carcinoid tumor of large intestine; Z85.060 Personal history of malignant carcinoid tumor of small intestine; Z85.810 Personal history of malignant neoplasm of tongue; Z85.46 Personal history of malignant neoplasm of prostate; Z95.810 Presence of automatic (implantable) cardiac defibrillator; Z95.5 Presence of coronary angioplasty implant and graft; Z87.891 Personal history of nicotine dependence; Z95.1 Presence of aortocoronary bypass graft; Z79.01 Long term (current) use of anticoagulants; Z86.73 Personal history of transient ischemic attack (TIA), and cerebral infarction without residual deficits
CPT/HCPCS: 93005; 96365; 96366; G0463; J1250; J1642

== ENCOUNTER → 2019-10-02 | Outpatient (CLI) | payer OTHER ==
[2019-10-02] VITALS (9 sets, daily range): BP systolic 96–117; BP diastolic 46–70
[~2019-10-02] VITALS: Ht 30.5 cm; Wt 86.4 kg
[~2019-10-02] MED LIST changes: -MAGNESIUM OXIDE 400 MG TAB ONE; -MAGNESIUM OXIDE 400 MG TAB PO ONE
--- NOTE | 2019-10-02 07:45 | NUR ---
Ayah Cath Insertion 20 gauge Ayah Cath inserted by Trell ALVAREZ using sterile technique in the R upper chest with occlusive dressing over saucedo needle. Patient tolerated procedure well. Ordered labs drawn and sent. See e-MAR for medications given during this visit.
--- NOTE | 2019-10-02 10:59 | NUR ---
Ayah Cath Removal Quinones needle D/C'd by Trell ALVAREZ after Heparin flush per protocol. See e-MAR for medications given during this visit. Sterile occlusive dressing to site. Patient tolerated procedure well. Site benign post infusion.
--- NOTE | 2019-10-02 11:00 | NUR ---
Discharge Instructions See e-MAR for any mediations given with this visit. Patient education given on disease process. Patient verbalized understanding. Previous labs reviewed. Patient discharged in stable condition with after care instructions and follow up appointment. NOTE DOBUTAMINE [id number] ADMIN BY GISELA ALVAREZ HEPARIN ADMIN BY GUCCI ALVAREZ
[2019-10-02 12:14] LABS: Magnesium 2.5 mg/dL (1.6-2.6)
== END | disposition home or self-care (01) ==
LOC: CHF HDHVI 07:59
PROVIDERS: ATTEND Internal Medicine Cardiovascular Disease
DX: I13.2 Hypertensive heart and chronic kidney disease with heart failure and with stage 5 chronic kidney disease, or end stage renal disease (principal); E11.22 Type 2 diabetes mellitus with diabetic chronic kidney disease; N18.6 End stage renal disease; I50.22 Chronic systolic (congestive) heart failure; I25.10 Atherosclerotic heart disease of native coronary artery without angina pectoris; I48.11 Longstanding persistent atrial fibrillation; I25.2 Old myocardial infarction; I27.21 Secondary pulmonary arterial hypertension; I42.8 Other cardiomyopathies; E87.6 Hypokalemia; R53.83 Other fatigue; R94.4 Abnormal results of kidney function studies; E78.5 Hyperlipidemia, unspecified; F41.9 Anxiety disorder, unspecified; F31.9 Bipolar disorder, unspecified; J44.9 Chronic obstructive pulmonary disease, unspecified; K21.9 Gastro-esophageal reflux disease without esophagitis; E03.9 Hypothyroidism, unspecified; G89.29 Other chronic pain; M19.072 Primary osteoarthritis, left ankle and foot; E78.00 Pure hypercholesterolemia, unspecified; E11.41 Type 2 diabetes mellitus with diabetic mononeuropathy; E11.51 Type 2 diabetes mellitus with diabetic peripheral angiopathy without gangrene; E11.319 Type 2 diabetes mellitus with unspecified diabetic retinopathy without macular edema; Z79.899 Other long term (current) drug therapy; Z85.060 Personal history of malignant carcinoid tumor of small intestine; Z85.810 Personal history of malignant neoplasm of tongue; Z85.46 Personal history of malignant neoplasm of prostate; Z95.810 Presence of automatic (implantable) cardiac defibrillator; Z95.5 Presence of coronary angioplasty implant and graft; Z79.01 Long term (current) use of anticoagulants; Z90.49 Acquired absence of other specified parts of digestive tract; Z85.030 Personal history of malignant carcinoid tumor of large intestine; Z87.891 Personal history of nicotine dependence; Z95.1 Presence of aortocoronary bypass graft; Z86.73 Personal history of transient ischemic attack (TIA), and cerebral infarction without residual deficits
CPT/HCPCS: 36415; 82565; 83735; 83880; 84132; 84520; 96365; 96366; G0463; J1250; J1642

== ENCOUNTER → 2019-10-04 | Outpatient (CLI) | payer OTHER ==
[2019-10-04] VITALS (10 sets, daily range): BP systolic 102–137; BP diastolic 54–69
[~2019-10-04] MED LIST changes: +CATHFLO ACTIVASE (ALTEPLASE) 2 MG VIAL IV ONE; +STERILE WATER 10 ML ONE
--- NOTE | 2019-10-04 11:30 | NUR ---
CHF CLINIC Discharge Instructions See e-MAR for any mediations given with this visit. Patient education given on disease process. Patient verbalized understanding. Previous labs reviewed. Patient discharged in stable condition with after care instructions and follow up appointment. NOTE CATH RIYA ADMIN BY GISELA ALVAREZ DOBUTAMINE [id number] ADMIN BY GISELA ALVAREZ HEPARIN ADMIN BY FRAN ALVAREZ
== END | disposition home or self-care (01) ==
LOC: CHF HDHVI 07:53
PROVIDERS: ATTEND Internal Medicine Cardiovascular Disease
DX: I13.2 Hypertensive heart and chronic kidney disease with heart failure and with stage 5 chronic kidney disease, or end stage renal disease (principal); E11.22 Type 2 diabetes mellitus with diabetic chronic kidney disease; N18.6 End stage renal disease; I50.22 Chronic systolic (congestive) heart failure; I25.10 Atherosclerotic heart disease of native coronary artery without angina pectoris; I48.11 Longstanding persistent atrial fibrillation; I25.2 Old myocardial infarction; I63.9 Cerebral infarction, unspecified; G45.9 Transient cerebral ischemic attack, unspecified; E78.5 Hyperlipidemia, unspecified; Q42.8 Congenital absence, atresia and stenosis of other parts of large intestine; F41.9 Anxiety disorder, unspecified; F31.9 Bipolar disorder, unspecified; J44.9 Chronic obstructive pulmonary disease, unspecified; K21.9 Gastro-esophageal reflux disease without esophagitis; E03.9 Hypothyroidism, unspecified; M19.072 Primary osteoarthritis, left ankle and foot; E78.00 Pure hypercholesterolemia, unspecified; E11.41 Type 2 diabetes mellitus with diabetic mononeuropathy; E11.51 Type 2 diabetes mellitus with diabetic peripheral angiopathy without gangrene; E11.319 Type 2 diabetes mellitus with unspecified diabetic retinopathy without macular edema; G89.29 Other chronic pain; Z79.899 Other long term (current) drug therapy; Z85.030 Personal history of malignant carcinoid tumor of large intestine; Z85.060 Personal history of malignant carcinoid tumor of small intestine; Z85.810 Personal history of malignant neoplasm of tongue; Z85.46 Personal history of malignant neoplasm of prostate; Z95.5 Presence of coronary angioplasty implant and graft; Z86.73 Personal history of transient ischemic attack (TIA), and cerebral infarction without residual deficits; Z79.01 Long term (current) use of anticoagulants; Z95.1 Presence of aortocoronary bypass graft; Z95.0 Presence of cardiac pacemaker; Z98.890 Other specified postprocedural states; Z87.891 Personal history of nicotine dependence; Z88.6 Allergy status to analgesic agent; Z85.038 Personal history of other malignant neoplasm of large intestine; Z88.8 Allergy status to other drugs, medicaments and biological substances
CPT/HCPCS: 96365; 96366; 96375; G0463; J1250; J1642; J2997

== ENCOUNTER → 2019-10-07 | Outpatient (CLI) | payer OTHER ==
[2019-10-07] VITALS (10 sets, daily range): BP systolic 91–158; BP diastolic 46–65
[~2019-10-07] MED LIST changes: -CATHFLO ACTIVASE (ALTEPLASE) 2 MG VIAL IV ONE; -STERILE WATER 10 ML ONE
--- NOTE | 2019-10-07 07:35 | NUR ---
PT. TO CHF CLINIC FOR DOBUTREX INFUSION PER MD ORDER. WT. UP SLIGHTLY OVER THE WEEKEND BUT PT. HAS NO RESP. DIFFICULTIES AND STAES HE HAD GOOD WEEKEND. ORDERS RECEIVED AND CARRIED OUT. SEE NSG ASSESS.
--- NOTE | 2019-10-07 07:46 | NUR ---
Clinic Provider Clinic Provider into see pt with new orders received and carried out. Dobutamine gtt started at {5}mcg/kg/hr per MD order.
--- NOTE | 2019-10-07 10:50 | NUR ---
Discharge Instructions See e-MAR for any mediations given with this visit. Patient education given on disease process. Patient verbalized understanding. Previous labs reviewed. Patient discharged in stable condition with after care instructions and follow up appointment. MEDICATIONS DOBUTAMINE DRIP HEPARIN IVP
== END | disposition home or self-care (01) ==
LOC: CHF HDHVI 07:49
PROVIDERS: ATTEND Internal Medicine Cardiovascular Disease
DX: I13.2 Hypertensive heart and chronic kidney disease with heart failure and with stage 5 chronic kidney disease, or end stage renal disease (principal); E11.22 Type 2 diabetes mellitus with diabetic chronic kidney disease; N18.6 End stage renal disease; I50.22 Chronic systolic (congestive) heart failure; I50.84 End stage heart failure; I25.10 Atherosclerotic heart disease of native coronary artery without angina pectoris; I48.11 Longstanding persistent atrial fibrillation; I42.8 Other cardiomyopathies; I25.2 Old myocardial infarction; I25.5 Ischemic cardiomyopathy; I27.21 Secondary pulmonary arterial hypertension; F41.9 Anxiety disorder, unspecified; F31.9 Bipolar disorder, unspecified; J44.9 Chronic obstructive pulmonary disease, unspecified; K21.9 Gastro-esophageal reflux disease without esophagitis; E78.5 Hyperlipidemia, unspecified; E03.9 Hypothyroidism, unspecified; G89.29 Other chronic pain; M19.072 Primary osteoarthritis, left ankle and foot; E78.00 Pure hypercholesterolemia, unspecified; E11.41 Type 2 diabetes mellitus with diabetic mononeuropathy; E11.21 Type 2 diabetes mellitus with diabetic nephropathy; E11.51 Type 2 diabetes mellitus with diabetic peripheral angiopathy without gangrene; E11.319 Type 2 diabetes mellitus with unspecified diabetic retinopathy without macular edema; Z79.899 Other long term (current) drug therapy; Z85.030 Personal history of malignant carcinoid tumor of large intestine; Z85.060 Personal history of malignant carcinoid tumor of small intestine; Z85.810 Personal history of malignant neoplasm of tongue; Z85.46 Personal history of malignant neoplasm of prostate; Z90.49 Acquired absence of other specified parts of digestive tract; Z95.5 Presence of coronary angioplasty implant and graft; Z79.01 Long term (current) use of anticoagulants; Z95.810 Presence of automatic (implantable) cardiac defibrillator; Z86.73 Personal history of transient ischemic attack (TIA), and cerebral infarction without residual deficits; Z95.1 Presence of aortocoronary bypass graft; Z87.891 Personal history of nicotine dependence
CPT/HCPCS: 96365; 96366; G0463; J1250; J1642

== ENCOUNTER → 2019-10-09 | Outpatient (CLI) | payer OTHER ==
[2019-10-09] VITALS (9 sets, daily range): BP systolic 98–145; BP diastolic 43–75
--- NOTE | 2019-10-09 10:50 | NUR ---
CHF CLINIC Discharge Instructions See e-MAR for any mediations given with this visit. Patient education given on disease process. Patient verbalized understanding. Previous labs reviewed. Patient discharged in stable condition with after care instructions and follow up appointment. NOTE DOBUTAMINE [id number] ADMIN BY GISELA ALVAREZ HEPARIN ADMIN BY VÍCTOR ALVAREZ
== END | disposition home or self-care (01) ==
LOC: CHF HDHVI 07:53
PROVIDERS: ATTEND Internal Medicine Cardiovascular Disease
DX: I13.2 Hypertensive heart and chronic kidney disease with heart failure and with stage 5 chronic kidney disease, or end stage renal disease (principal); E11.22 Type 2 diabetes mellitus with diabetic chronic kidney disease; N18.6 End stage renal disease; I50.22 Chronic systolic (congestive) heart failure; I25.10 Atherosclerotic heart disease of native coronary artery without angina pectoris; I27.21 Secondary pulmonary arterial hypertension; I48.11 Longstanding persistent atrial fibrillation; I25.2 Old myocardial infarction; I42.8 Other cardiomyopathies; E78.5 Hyperlipidemia, unspecified; F41.9 Anxiety disorder, unspecified; F31.9 Bipolar disorder, unspecified; J44.9 Chronic obstructive pulmonary disease, unspecified; K21.9 Gastro-esophageal reflux disease without esophagitis; E03.9 Hypothyroidism, unspecified; M19.072 Primary osteoarthritis, left ankle and foot; G89.29 Other chronic pain; E78.00 Pure hypercholesterolemia, unspecified; E11.41 Type 2 diabetes mellitus with diabetic mononeuropathy; E11.51 Type 2 diabetes mellitus with diabetic peripheral angiopathy without gangrene; E11.319 Type 2 diabetes mellitus with unspecified diabetic retinopathy without macular edema; E11.21 Type 2 diabetes mellitus with diabetic nephropathy; Z79.899 Other long term (current) drug therapy; Z85.030 Personal history of malignant carcinoid tumor of large intestine; Z85.060 Personal history of malignant carcinoid tumor of small intestine; Z85.810 Personal history of malignant neoplasm of tongue; Z85.46 Personal history of malignant neoplasm of prostate; Z95.810 Presence of automatic (implantable) cardiac defibrillator; Z95.5 Presence of coronary angioplasty implant and graft; Z86.73 Personal history of transient ischemic attack (TIA), and cerebral infarction without residual deficits; Z79.01 Long term (current) use of anticoagulants; Z90.49 Acquired absence of other specified parts of digestive tract; Z87.891 Personal history of nicotine dependence; Z95.1 Presence of aortocoronary bypass graft
CPT/HCPCS: 93306; 96365; 96366; G0463; J1250; J1642

== ENCOUNTER → 2019-10-11 | Outpatient (CLI) | payer OTHER ==
[2019-10-11] VITALS (9 sets, daily range): BP systolic 108–139; BP diastolic 59–86
--- NOTE | 2019-10-11 11:10 | NUR ---
CHF CLINIC Discharge Instructions See e-MAR for any mediations given with this visit. Patient education given on disease process. Patient verbalized understanding. Previous labs reviewed. Patient discharged in stable condition with after care instructions and follow up appointment. NOTE DOBUTAMINE [id number] ADMIN BY MACY ALVAREZ HEPARIN ADMIN BY AMCY ALVAREZ
== END | disposition home or self-care (01) ==
LOC: CHF HDHVI 07:53
PROVIDERS: ATTEND Internal Medicine Cardiovascular Disease
DX: I13.2 Hypertensive heart and chronic kidney disease with heart failure and with stage 5 chronic kidney disease, or end stage renal disease (principal); E11.22 Type 2 diabetes mellitus with diabetic chronic kidney disease; N18.6 End stage renal disease; I50.22 Chronic systolic (congestive) heart failure; I50.84 End stage heart failure; I25.10 Atherosclerotic heart disease of native coronary artery without angina pectoris; I48.11 Longstanding persistent atrial fibrillation; I25.2 Old myocardial infarction; I42.8 Other cardiomyopathies; F41.9 Anxiety disorder, unspecified; R53.83 Other fatigue; F31.9 Bipolar disorder, unspecified; J44.9 Chronic obstructive pulmonary disease, unspecified; K21.9 Gastro-esophageal reflux disease without esophagitis; E78.5 Hyperlipidemia, unspecified; E03.9 Hypothyroidism, unspecified; M19.072 Primary osteoarthritis, left ankle and foot; E78.00 Pure hypercholesterolemia, unspecified; E11.41 Type 2 diabetes mellitus with diabetic mononeuropathy; E11.21 Type 2 diabetes mellitus with diabetic nephropathy; E11.51 Type 2 diabetes mellitus with diabetic peripheral angiopathy without gangrene; E11.319 Type 2 diabetes mellitus with unspecified diabetic retinopathy without macular edema; G89.29 Other chronic pain; Z79.899 Other long term (current) drug therapy; Z95.5 Presence of coronary angioplasty implant and graft; Z85.030 Personal history of malignant carcinoid tumor of large intestine; Z85.060 Personal history of malignant carcinoid tumor of small intestine; Z85.810 Personal history of malignant neoplasm of tongue; Z85.46 Personal history of malignant neoplasm of prostate; Z87.891 Personal history of nicotine dependence; Z95.1 Presence of aortocoronary bypass graft; Z95.810 Presence of automatic (implantable) cardiac defibrillator; Z86.73 Personal history of transient ischemic attack (TIA), and cerebral infarction without residual deficits; Z79.01 Long term (current) use of anticoagulants; Z90.49 Acquired absence of other specified parts of digestive tract
CPT/HCPCS: 96365; 96366; G0463; J1250; J1642

== ENCOUNTER → 2019-10-14 | Outpatient (CLI) | payer OTHER ==
[2019-10-14] VITALS (9 sets, daily range): BP systolic 82–129; BP diastolic 51–62
--- NOTE | 2019-10-14 07:25 | NUR ---
PT. TO CHF CLINIC FOR DOBUTAMINE INFUSION PER MD ORDER. PT. STATES HE HAD A GOOD WEEKEND, WITH INCREASED EXERCIS CAPACITY, AND MINIMAL SOB. MD ORDERS RECEIVED AND CARRIED OUT. SEE NSG ASSESS.
--- NOTE | 2019-10-14 07:40 | NUR ---
Clinic Provider Clinic Provider into see pt with new orders received and carried out. Dobutamine gtt started at {5}mcg/kg/hr per MD order.
--- NOTE | 2019-10-14 10:50 | NUR ---
Discharge Instructions See e-MAR for any mediations given with this visit. Patient education given on disease process. Patient verbalized understanding. Previous labs reviewed. Patient discharged in stable condition with after care instructions and follow up appointment. MEDICATIONS DOBUTAMINE DRIP [id number] HEPARIN 1000 UNITS IVP
== END | disposition home or self-care (01) ==
LOC: CHF HDHVI 08:07
PROVIDERS: ATTEND Internal Medicine Cardiovascular Disease
DX: I13.2 Hypertensive heart and chronic kidney disease with heart failure and with stage 5 chronic kidney disease, or end stage renal disease (principal); N18.6 End stage renal disease; I50.22 Chronic systolic (congestive) heart failure; F41.9 Anxiety disorder, unspecified; I25.10 Atherosclerotic heart disease of native coronary artery without angina pectoris; F31.9 Bipolar disorder, unspecified; J44.9 Chronic obstructive pulmonary disease, unspecified; I50.84 End stage heart failure; E78.5 Hyperlipidemia, unspecified; E11.22 Type 2 diabetes mellitus with diabetic chronic kidney disease; E03.9 Hypothyroidism, unspecified; K21.9 Gastro-esophageal reflux disease without esophagitis; I25.2 Old myocardial infarction; I48.11 Longstanding persistent atrial fibrillation; M19.072 Primary osteoarthritis, left ankle and foot; E78.00 Pure hypercholesterolemia, unspecified; E11.41 Type 2 diabetes mellitus with diabetic mononeuropathy; E11.21 Type 2 diabetes mellitus with diabetic nephropathy; E11.51 Type 2 diabetes mellitus with diabetic peripheral angiopathy without gangrene; E11.319 Type 2 diabetes mellitus with unspecified diabetic retinopathy without macular edema; Z90.49 Acquired absence of other specified parts of digestive tract; Z79.01 Long term (current) use of anticoagulants; Z85.038 Personal history of other malignant neoplasm of large intestine; Z85.068 Personal history of other malignant neoplasm of small intestine; Z85.46 Personal history of malignant neoplasm of prostate; Z85.810 Personal history of malignant neoplasm of tongue; Z87.891 Personal history of nicotine dependence; Z95.1 Presence of aortocoronary bypass graft; Z95.810 Presence of automatic (implantable) cardiac defibrillator; Z86.73 Personal history of transient ischemic attack (TIA), and cerebral infarction without residual deficits
CPT/HCPCS: 96365; 96366; G0463; J1250; J1642

== ENCOUNTER → 2019-10-16 | Outpatient (CLI) | payer OTHER ==
[2019-10-16] VITALS (10 sets, daily range): BP systolic 94–127; BP diastolic 47–68
[~2019-10-16] VITALS: Ht 30.5 cm; Wt 87.0 kg
--- NOTE | 2019-10-16 10:52 | NUR ---
Ayah Cath Removal Quinones needle D/C'd by Caren ALVAREZ after Heparin flush per protocol. See e-MAR for medications given during this visit. Sterile occlusive dressing to site. Patient tolerated procedure well. Site benign post infusion.
--- NOTE | 2019-10-16 10:55 | NUR ---
CHF Clinic Discharge Instructions See e-MAR for any mediations given with this visit. Patient education given on disease process. Patient verbalized understanding. Previous labs reviewed. Patient discharged in stable condition with after care instructions and follow up appointment. Note Dobutamine [id number] admin by Roscoe ALVAREZ. Heparin admin by Caren ALVAREZ.
== END | disposition home or self-care (01) ==
LOC: CHF HDHVI 08:00
PROVIDERS: ATTEND Internal Medicine Cardiovascular Disease
DX: I13.2 Hypertensive heart and chronic kidney disease with heart failure and with stage 5 chronic kidney disease, or end stage renal disease (principal); I50.22 Chronic systolic (congestive) heart failure; N18.6 End stage renal disease; I50.84 End stage heart failure; I25.2 Old myocardial infarction; I48.11 Longstanding persistent atrial fibrillation; R53.83 Other fatigue; F41.9 Anxiety disorder, unspecified; F31.9 Bipolar disorder, unspecified; J44.9 Chronic obstructive pulmonary disease, unspecified; K21.9 Gastro-esophageal reflux disease without esophagitis; E78.5 Hyperlipidemia, unspecified; E03.9 Hypothyroidism, unspecified; M19.072 Primary osteoarthritis, left ankle and foot; Z85.030 Personal history of malignant carcinoid tumor of large intestine; Z85.060 Personal history of malignant carcinoid tumor of small intestine; Z85.810 Personal history of malignant neoplasm of tongue; Z85.46 Personal history of malignant neoplasm of prostate; Z87.891 Personal history of nicotine dependence; Z95.1 Presence of aortocoronary bypass graft; Z79.01 Long term (current) use of anticoagulants; Z95.810 Presence of automatic (implantable) cardiac defibrillator; Z90.49 Acquired absence of other specified parts of digestive tract
CPT/HCPCS: 96365; 96366; G0463; J1250; J1642

== ENCOUNTER → 2019-10-18 | Outpatient (CLI) | payer OTHER ==
[2019-10-18] VITALS (9 sets, daily range): BP systolic 105–139; BP diastolic 56–72
--- NOTE | 2019-10-18 07:30 | NUR ---
PT. TO CHF CLINIC FOR DOBUTAMINE INFUSION PER MD ORDER. PT. STATES INCREASES IN ENERGY SINCE LAST TX. SEE NSG ASSESS.
--- NOTE | 2019-10-18 07:45 | NUR ---
Clinic Provider Clinic Provider into see pt with new orders received and carried out. Dobutamine gtt started at {5}mcg/kg/hr per MD order.
--- NOTE | 2019-10-18 10:55 | NUR ---
CHF CLINIC Discharge Instructions See e-MAR for any mediations given with this visit. Patient education given on disease process. Patient verbalized understanding. Previous labs reviewed. Patient discharged in stable condition with after care instructions and follow up appointment. NOTE DOBUTAMINE [id number] ADMIN BY GISELA ALVAREZ. HEPARIN ADMIN BY MACY ALVAREZ.
== END | disposition home or self-care (01) ==
LOC: CHF HDHVI 07:55
PROVIDERS: ATTEND Internal Medicine Cardiovascular Disease
DX: I13.2 Hypertensive heart and chronic kidney disease with heart failure and with stage 5 chronic kidney disease, or end stage renal disease (principal); E11.22 Type 2 diabetes mellitus with diabetic chronic kidney disease; I50.22 Chronic systolic (congestive) heart failure; N18.6 End stage renal disease; I48.11 Longstanding persistent atrial fibrillation; I25.10 Atherosclerotic heart disease of native coronary artery without angina pectoris; I50.84 End stage heart failure; I25.2 Old myocardial infarction; I42.8 Other cardiomyopathies; I27.21 Secondary pulmonary arterial hypertension; F41.9 Anxiety disorder, unspecified; F31.9 Bipolar disorder, unspecified; J44.9 Chronic obstructive pulmonary disease, unspecified; K21.9 Gastro-esophageal reflux disease without esophagitis; E78.5 Hyperlipidemia, unspecified; E03.9 Hypothyroidism, unspecified; M19.072 Primary osteoarthritis, left ankle and foot; E11.41 Type 2 diabetes mellitus with diabetic mononeuropathy; E11.21 Type 2 diabetes mellitus with diabetic nephropathy; E11.51 Type 2 diabetes mellitus with diabetic peripheral angiopathy without gangrene; E11.319 Type 2 diabetes mellitus with unspecified diabetic retinopathy without macular edema; G89.29 Other chronic pain; Z79.899 Other long term (current) drug therapy; Z95.5 Presence of coronary angioplasty implant and graft; Z95.810 Presence of automatic (implantable) cardiac defibrillator; Z85.030 Personal history of malignant carcinoid tumor of large intestine; Z85.060 Personal history of malignant carcinoid tumor of small intestine; Z85.810 Personal history of malignant neoplasm of tongue; Z85.46 Personal history of malignant neoplasm of prostate; Z87.891 Personal history of nicotine dependence; Z95.1 Presence of aortocoronary bypass graft; Z79.01 Long term (current) use of anticoagulants
CPT/HCPCS: 96365; 96366; G0463; J1250; J1642

== ENCOUNTER → 2019-10-21 | Outpatient (CLI) | payer OTHER ==
[~2019-10-21] MED LIST changes: +CATHFLO ACTIVASE (ALTEPLASE) 2 MG VIAL IV ONE; +CYANOCOBALAMIN (B-12) 1000 MCG/1 ML VIAL IM ONE; +CYANOCOBALAMIN (B-12) 1000 MCG/1 ML VIAL ONE; -DOBUTamine 1000MCG/ML 250 ML IV ONE; +STERILE WATER 10 ML ONE
--- NOTE | 2019-10-21 08:52 | NUR ---
B12 IM L DELTOID ADMIN BY BUDDY CABRAL.
--- NOTE | 2019-10-21 10:00 | NUR ---
UNABLE TO GET RETURN FROM PORT, MD AWARE. PATIENT REFERRED TO DR STOLL FOR PORT MALFUNCTION.
--- NOTE | 2019-10-21 10:30 | NUR ---
Ayah Cath Removal Quinones needle D/C'd unable to Heparin flush per protocol. See e-MAR for medications given during this visit. Sterile occlusive dressing to site. Patient tolerated procedure well. Site benign post infusion.
[2019-10-21 11:00] VITALS: BP 91/50
--- NOTE | 2019-10-21 11:00 | NUR ---
CHF CLINIC Discharge Instructions See e-MAR for any mediations given with this visit. Patient education given on disease process. Patient verbalized understanding. Previous labs reviewed. Patient discharged in stable condition with after care instructions and follow up appointment. NOTE CATHFLO ADMIN BY GISELA ALVAREZ
== END | disposition home or self-care (01) ==
LOC: CHF HDHVI 07:52
PROVIDERS: ATTEND Internal Medicine Cardiovascular Disease
DX: I13.2 Hypertensive heart and chronic kidney disease with heart failure and with stage 5 chronic kidney disease, or end stage renal disease (principal); E11.22 Type 2 diabetes mellitus with diabetic chronic kidney disease; N18.6 End stage renal disease; I50.22 Chronic systolic (congestive) heart failure; I25.10 Atherosclerotic heart disease of native coronary artery without angina pectoris; I50.84 End stage heart failure; I48.11 Longstanding persistent atrial fibrillation; I25.2 Old myocardial infarction; I27.21 Secondary pulmonary arterial hypertension; F31.9 Bipolar disorder, unspecified; J44.9 Chronic obstructive pulmonary disease, unspecified; F41.9 Anxiety disorder, unspecified; K21.9 Gastro-esophageal reflux disease without esophagitis; E78.5 Hyperlipidemia, unspecified; E03.9 Hypothyroidism, unspecified; G89.29 Other chronic pain; M19.072 Primary osteoarthritis, left ankle and foot; E11.41 Type 2 diabetes mellitus with diabetic mononeuropathy; E11.21 Type 2 diabetes mellitus with diabetic nephropathy; E11.51 Type 2 diabetes mellitus with diabetic peripheral angiopathy without gangrene; E11.319 Type 2 diabetes mellitus with unspecified diabetic retinopathy without macular edema; Z90.49 Acquired absence of other specified parts of digestive tract; Z79.899 Other long term (current) drug therapy; Z85.030 Personal history of malignant carcinoid tumor of large intestine; Z85.060 Personal history of malignant carcinoid tumor of small intestine; Z85.810 Personal history of malignant neoplasm of tongue; Z85.46 Personal history of malignant neoplasm of prostate; Z87.891 Personal history of nicotine dependence; Z95.1 Presence of aortocoronary bypass graft; Z95.810 Presence of automatic (implantable) cardiac defibrillator; Z95.5 Presence of coronary angioplasty implant and graft; Z79.01 Long term (current) use of anticoagulants
CPT/HCPCS: 71046; 96372; 96374; G0463; J2997; J3420

== ENCOUNTER → 2019-10-22 | Outpatient (CLI) | payer OTHER ==
[2019-10-22] VITALS (9 sets, daily range): BP systolic 107–120; BP diastolic 54–82
[~2019-10-22] MED LIST changes: -CATHFLO ACTIVASE (ALTEPLASE) 2 MG VIAL IV ONE; -CYANOCOBALAMIN (B-12) 1000 MCG/1 ML VIAL IM ONE; -CYANOCOBALAMIN (B-12) 1000 MCG/1 ML VIAL ONE; +DOBUTamine 1000MCG/ML 250 ML IV ONE; +DOBUTamine 1000MCG/ML 250 ML IV SCH; +MAGN400T40 PO; -MAGN400T5 PO; -STERILE WATER 10 ML ONE
== END | disposition home or self-care (01) ==
LOC: CHF HDHVI 10:38
PROVIDERS: ATTEND Internal Medicine Cardiovascular Disease
DX: I13.2 Hypertensive heart and chronic kidney disease with heart failure and with stage 5 chronic kidney disease, or end stage renal disease (principal); E11.22 Type 2 diabetes mellitus with diabetic chronic kidney disease; N18.6 End stage renal disease; I50.22 Chronic systolic (congestive) heart failure; I50.84 End stage heart failure; I25.10 Atherosclerotic heart disease of native coronary artery without angina pectoris; I48.11 Longstanding persistent atrial fibrillation; I25.2 Old myocardial infarction; I42.8 Other cardiomyopathies; I27.21 Secondary pulmonary arterial hypertension; F41.9 Anxiety disorder, unspecified; F31.9 Bipolar disorder, unspecified; J44.9 Chronic obstructive pulmonary disease, unspecified; K21.9 Gastro-esophageal reflux disease without esophagitis; E78.5 Hyperlipidemia, unspecified; E03.9 Hypothyroidism, unspecified; G89.29 Other chronic pain; M19.072 Primary osteoarthritis, left ankle and foot; E78.00 Pure hypercholesterolemia, unspecified; E11.41 Type 2 diabetes mellitus with diabetic mononeuropathy; E11.21 Type 2 diabetes mellitus with diabetic nephropathy; E11.51 Type 2 diabetes mellitus with diabetic peripheral angiopathy without gangrene; E11.319 Type 2 diabetes mellitus with unspecified diabetic retinopathy without macular edema; Z87.891 Personal history of nicotine dependence; Z79.899 Other long term (current) drug therapy; Z85.030 Personal history of malignant carcinoid tumor of large intestine; Z85.060 Personal history of malignant carcinoid tumor of small intestine; Z85.810 Personal history of malignant neoplasm of tongue; Z85.46 Personal history of malignant neoplasm of prostate; Z95.1 Presence of aortocoronary bypass graft; Z95.810 Presence of automatic (implantable) cardiac defibrillator; Z95.5 Presence of coronary angioplasty implant and graft; Z86.73 Personal history of transient ischemic attack (TIA), and cerebral infarction without residual deficits; Z79.01 Long term (current) use of anticoagulants; Z90.49 Acquired absence of other specified parts of digestive tract
CPT/HCPCS: 96365; 96366; J1250; G0463

== ENCOUNTER → 2019-10-28 | Outpatient (CLI) | payer OTHER ==
[~2019-10-28] VITALS: Ht 30.5 cm; Wt 88.0 kg
[2019-10-28] VITALS (10 sets, daily range): BP systolic 97–130; BP diastolic 44–67
[~2019-10-28] MED LIST changes: +BACITRACIN TOP OINT 1 UD PKG TOP ONE; -DOBUTamine 1000MCG/ML 250 ML IV SCH; -MAGN400T40 PO; +MAGN400T5 PO
--- NOTE | 2019-10-28 07:30 | NUR ---
PT. TO CHF CLINIC FOR DOBUTREX INFUSION PER MD ORDER. PT HAD HIS LORRI CATH RT UPPER CHEST REPAIRED ON 10/[address] WOOD, WITH ADEQUATE PLACEMENT OF P.C. AND OK TO USE ORDER RECEIVED FROM MD BY PT. STERILE DRESSING TO SITE RT UPPER CHEST REMOVED, WITH SUTURES INTACT, SITE BENIGN, WITH NO REDNESS OR SWELLING, AND MINIMAL PAIN PER PT. "12/06". ORDERS RECEIVED AND CARRIED OUT SEE NSG ASSESS.
--- NOTE | 2019-10-28 07:47 | NUR ---
Clinic Provider Clinic Provider into see pt with new orders received and carried out. Dobutamine gtt started at {5}mcg/kg/hr per MD order. ORDERS RECEIVED FOR BACITRACIN OINT. TO BE USED POST TX. AT SUTURE SITE BY .
--- NOTE | 2019-10-28 10:50 | NUR ---
Discharge Instructions See e-MAR for any mediations given with this visit. Patient education given on disease process. Patient verbalized understanding. Previous labs reviewed. Patient discharged in stable condition with after care instructions and follow up appointment. medications DOBUTAMINE DRIP [id number] HEPARIN IVP BACITRACIN OINTMENT TO PORTATH INCISION SITE
[2019-10-28 11:49] LABS: Basophils # (auto) 0 uL; Eosinophils # (auto) 0.1 uL; Eosinophils % (auto) 2.3 % (0.0-7.0); Lymphocytes # (auto) 1.1 uL; Mean Corpuscular Hemoglobin 34.2 pg (28.0-32.0); Monocytes # (auto) 0.5 uL; Neutrophils # (auto) 1.6 uL; Red Cell Distribution Width 13.5 % (11.8-14.3); White Blood Cell 3.3 10^3/uL (4.4-10.8)
[2019-10-28 11:54] LABS: Basophils % (auto) 0.4 % (0.0-2.0); Hematocrit 39.6 % (41.0-53.0); Hemoglobin 13.6 g/dL (13.5-17.5); Lymphocytes % (auto) 33.5 % (10.0-50.0); Mean Corpuscular Hgb Conc. 34.5 g/dL (32.0-36.0); Mean Corpuscular Volume 99.1 fL (80.0-100.0); Monocytes % (auto) 15.2 % (0.0-12.0); Neutrophils % (auto) 48.6 % (37.0-80.0); Nucleated Red Blood Cells % 0.1 %; Platelet Count (auto) 165 10^3/uL (140-450); Red Blood Cells 3.99 10^6/uL (4.5-5.90)
[2019-10-28 11:56] LABS: Potassium 3.9 mmol/L (3.5-5.1)
[2019-10-28 12:05] LABS: Albumin 3.6 g/dL (3.4-5.0); BUN/Creatinine Ratio 13.3; Bilirubin, Total 0.4 mg/dL (0.2-1.0); Calcium 8.2 mg/dL (8.5-10.1); Magnesium 2.5 mg/dL (1.6-2.6); Total Protein 7.1 g/dL (6.4-8.2)
== END | disposition home or self-care (01) ==
LOC: CHF HDHVI 08:02
PROVIDERS: ATTEND Internal Medicine Cardiovascular Disease
DX: I13.2 Hypertensive heart and chronic kidney disease with heart failure and with stage 5 chronic kidney disease, or end stage renal disease (principal); E11.22 Type 2 diabetes mellitus with diabetic chronic kidney disease; N18.6 End stage renal disease; I50.22 Chronic systolic (congestive) heart failure; I50.84 End stage heart failure; I25.10 Atherosclerotic heart disease of native coronary artery without angina pectoris; I48.11 Longstanding persistent atrial fibrillation; I25.2 Old myocardial infarction; I42.8 Other cardiomyopathies; I27.21 Secondary pulmonary arterial hypertension; D64.9 Anemia, unspecified; F41.9 Anxiety disorder, unspecified; F31.9 Bipolar disorder, unspecified; J44.9 Chronic obstructive pulmonary disease, unspecified; K21.9 Gastro-esophageal reflux disease without esophagitis; E78.5 Hyperlipidemia, unspecified; E03.9 Hypothyroidism, unspecified; G89.29 Other chronic pain; M19.072 Primary osteoarthritis, left ankle and foot; E11.41 Type 2 diabetes mellitus with diabetic mononeuropathy; E11.21 Type 2 diabetes mellitus with diabetic nephropathy; E11.319 Type 2 diabetes mellitus with unspecified diabetic retinopathy without macular edema; Z79.899 Other long term (current) drug therapy; Z85.030 Personal history of malignant carcinoid tumor of large intestine; Z85.060 Personal history of malignant carcinoid tumor of small intestine; Z85.810 Personal history of malignant neoplasm of tongue; Z85.46 Personal history of malignant neoplasm of prostate; Z87.891 Personal history of nicotine dependence; Z95.1 Presence of aortocoronary bypass graft; Z95.810 Presence of automatic (implantable) cardiac defibrillator; Z95.5 Presence of coronary angioplasty implant and graft; Z79.01 Long term (current) use of anticoagulants; Z90.49 Acquired absence of other specified parts of digestive tract
CPT/HCPCS: 36415; 80053; 83735; 83880; 85025; 96365; 96366; G0463; J1250; J1642

== ENCOUNTER → 2019-10-30 | Outpatient (CLI) | payer OTHER ==
[~2019-10-30] MED LIST changes: -BACITRACIN TOP OINT 1 UD PKG TOP ONE
--- NOTE | 2019-10-30 07:30 | NUR ---
PT. TO CHF CLINIC FOR DOBUTAMINE INFUSION PER DR. ENGLISH. INCREASE IN ENERGY SINCE LAST TX. P.C. SITE RT UPPER CHEST WITH OCCLUSIVE DRSG REMOVED. SITE BENIGN, ALL SUTURES INTACT WITH NO S&S OF INFECTION NOTED AND SCANT DRAINAGE ON TELFA. DENIES PAIN TO SITE. ORDERS RECEIVED AND CARRIED OUT.
[2019-10-30 07:49] VITALS: BP 103/57
--- NOTE | 2019-10-30 07:49 | NUR ---
Clinic Provider Clinic Provider into see pt with new orders received and carried out. Dobutamine gtt started at {5}mcg/kg/hr per MD order.
[2019-10-30 08:00] VITALS: BP 108/61
[2019-10-30 08:15] VITALS: BP 105/62
[2019-10-30 08:45] VITALS: BP 100/50
[2019-10-30 11:06] VITALS: BP 123/62
--- NOTE | 2019-10-30 11:06 | NUR ---
Discharge Instructions See e-MAR for any mediations given with this visit. Patient education given on disease process. Patient verbalized understanding. Previous labs reviewed. Patient discharged in stable condition with after care instructions and follow up appointment. MEDICATIONS DOBUTAMINE DRIP [id number] HEPARIN IVP
== END | disposition home or self-care (01) ==
LOC: CHF HDHVI 08:02
PROVIDERS: ATTEND Internal Medicine Cardiovascular Disease
DX: I13.2 Hypertensive heart and chronic kidney disease with heart failure and with stage 5 chronic kidney disease, or end stage renal disease (principal); N18.6 End stage renal disease; I50.22 Chronic systolic (congestive) heart failure; I50.84 End stage heart failure; I25.10 Atherosclerotic heart disease of native coronary artery without angina pectoris; I42.8 Other cardiomyopathies; I48.11 Longstanding persistent atrial fibrillation; I25.2 Old myocardial infarction; I27.21 Secondary pulmonary arterial hypertension; F41.9 Anxiety disorder, unspecified; F31.9 Bipolar disorder, unspecified; J44.9 Chronic obstructive pulmonary disease, unspecified; K21.9 Gastro-esophageal reflux disease without esophagitis; E78.5 Hyperlipidemia, unspecified; E03.9 Hypothyroidism, unspecified; G89.29 Other chronic pain; M19.072 Primary osteoarthritis, left ankle and foot; E11.22 Type 2 diabetes mellitus with diabetic chronic kidney disease; E11.41 Type 2 diabetes mellitus with diabetic mononeuropathy; E11.21 Type 2 diabetes mellitus with diabetic nephropathy; E11.51 Type 2 diabetes mellitus with diabetic peripheral angiopathy without gangrene; E78.00 Pure hypercholesterolemia, unspecified; Z85.030 Personal history of malignant carcinoid tumor of large intestine; Z85.060 Personal history of malignant carcinoid tumor of small intestine; Z85.810 Personal history of malignant neoplasm of tongue; Z85.46 Personal history of malignant neoplasm of prostate; Z87.891 Personal history of nicotine dependence; Z90.49 Acquired absence of other specified parts of digestive tract; Z95.1 Presence of aortocoronary bypass graft; Z95.5 Presence of coronary angioplasty implant and graft; Z79.899 Other long term (current) drug therapy; Z79.01 Long term (current) use of anticoagulants
CPT/HCPCS: 96365; 96366; G0463; J1250; J1642

== ENCOUNTER → 2019-11-01 | Outpatient (CLI) | payer OTHER ==
[2019-11-01] VITALS (10 sets, daily range): BP systolic 91–127; BP diastolic 44–77
[~2019-11-01] MED LIST changes: +DOBUTamine 1000MCG/ML 250 ML IV SCH; +MAGN400T40 PO; -MAGN400T5 PO
--- NOTE | 2019-11-01 07:40 | NUR ---
Ayah Cath Insertion [20] gauge Ayah Cath inserted using sterile technique in the [R] upper chest with occlusive dressing over saucedo needle. Patient tolerated procedure well. Ordered labs drawn and sent. See e-MAR for medications given during this visit. Addendum: 11/01/19 at 0936 by FRAN FELIX RN INSERTED BY GISELA ALVAREZ
--- NOTE | 2019-11-01 10:50 | NUR ---
Ayah Cath Removal Quinones needle D/C'd after Heparin flush per protocol BY GISELA ALVAREZ. See e-MAR for medications given during this visit. Sterile occlusive dressing to site. Patient tolerated procedure well. Site benign post infusion.
--- NOTE | 2019-11-01 10:52 | NUR ---
CHF Clinic Discharge Instructions See e-MAR for any mediations given with this visit. Patient education given on disease process. Patient verbalized understanding. Previous labs reviewed. Patient discharged in stable condition with after care instructions and follow up appointment. NOTE DOBUTAMINE [id number] ADMIN BY GISELA ALVAREZ HEPARIN IVP ADMIN BY GISELA ALVAREZ
== END | disposition home or self-care (01) ==
LOC: CHF HDHVI 08:16
PROVIDERS: ATTEND Internal Medicine Cardiovascular Disease
DX: I13.2 Hypertensive heart and chronic kidney disease with heart failure and with stage 5 chronic kidney disease, or end stage renal disease (principal); E11.22 Type 2 diabetes mellitus with diabetic chronic kidney disease; N18.6 End stage renal disease; I50.22 Chronic systolic (congestive) heart failure; I50.84 End stage heart failure; I25.10 Atherosclerotic heart disease of native coronary artery without angina pectoris; I48.11 Longstanding persistent atrial fibrillation; I25.2 Old myocardial infarction; I42.8 Other cardiomyopathies; I27.21 Secondary pulmonary arterial hypertension; F41.9 Anxiety disorder, unspecified; F31.9 Bipolar disorder, unspecified; J44.9 Chronic obstructive pulmonary disease, unspecified; K21.9 Gastro-esophageal reflux disease without esophagitis; E78.5 Hyperlipidemia, unspecified; E03.9 Hypothyroidism, unspecified; G89.29 Other chronic pain; M19.072 Primary osteoarthritis, left ankle and foot; E78.00 Pure hypercholesterolemia, unspecified; E11.41 Type 2 diabetes mellitus with diabetic mononeuropathy; E11.21 Type 2 diabetes mellitus with diabetic nephropathy; E11.51 Type 2 diabetes mellitus with diabetic peripheral angiopathy without gangrene; E11.319 Type 2 diabetes mellitus with unspecified diabetic retinopathy without macular edema; Z95.1 Presence of aortocoronary bypass graft; Z95.5 Presence of coronary angioplasty implant and graft; Z79.899 Other long term (current) drug therapy; Z85.030 Personal history of malignant carcinoid tumor of large intestine; Z85.060 Personal history of malignant carcinoid tumor of small intestine; Z85.810 Personal history of malignant neoplasm of tongue; Z85.46 Personal history of malignant neoplasm of prostate; Z87.891 Personal history of nicotine dependence; Z95.810 Presence of automatic (implantable) cardiac defibrillator; Z86.73 Personal history of transient ischemic attack (TIA), and cerebral infarction without residual deficits; Z79.01 Long term (current) use of anticoagulants; Z90.49 Acquired absence of other specified parts of digestive tract
CPT/HCPCS: 96365; 96366; G0463; J1250; J1642

== ENCOUNTER → 2019-11-04 | Outpatient (CLI) | payer OTHER ==
[2019-11-04] VITALS (10 sets, daily range): BP systolic 110–132; BP diastolic 51–70
[~2019-11-04] MED LIST changes: -DOBUTamine 1000MCG/ML 250 ML IV SCH
--- NOTE | 2019-11-04 11:23 | NUR ---
Discharge Instructions See e-MAR for any mediations given with this visit. Patient education given on disease process. Patient verbalized understanding. Previous labs reviewed. Patient discharged in stable condition with after care instructions and follow up appointment. MEDICATIONS DOBUTAMINE 5MCG/KG/MIN [id number] HEPARIN IVP
== END | disposition home or self-care (01) ==
LOC: CHF HDHVI 08:11
PROVIDERS: ATTEND Internal Medicine Cardiovascular Disease
DX: I13.2 Hypertensive heart and chronic kidney disease with heart failure and with stage 5 chronic kidney disease, or end stage renal disease (principal); E11.22 Type 2 diabetes mellitus with diabetic chronic kidney disease; N18.6 End stage renal disease; I50.22 Chronic systolic (congestive) heart failure; I50.84 End stage heart failure; I25.10 Atherosclerotic heart disease of native coronary artery without angina pectoris; I48.11 Longstanding persistent atrial fibrillation; I25.2 Old myocardial infarction; I42.8 Other cardiomyopathies; I27.21 Secondary pulmonary arterial hypertension; R00.0 Tachycardia, unspecified; F41.9 Anxiety disorder, unspecified; F31.9 Bipolar disorder, unspecified; J44.9 Chronic obstructive pulmonary disease, unspecified; K21.9 Gastro-esophageal reflux disease without esophagitis; E78.5 Hyperlipidemia, unspecified; E03.9 Hypothyroidism, unspecified; G89.29 Other chronic pain; M19.072 Primary osteoarthritis, left ankle and foot; E78.00 Pure hypercholesterolemia, unspecified; E11.41 Type 2 diabetes mellitus with diabetic mononeuropathy; E11.21 Type 2 diabetes mellitus with diabetic nephropathy; E11.51 Type 2 diabetes mellitus with diabetic peripheral angiopathy without gangrene; E11.319 Type 2 diabetes mellitus with unspecified diabetic retinopathy without macular edema; Z79.01 Long term (current) use of anticoagulants; Z79.899 Other long term (current) drug therapy; Z85.030 Personal history of malignant carcinoid tumor of large intestine; Z85.060 Personal history of malignant carcinoid tumor of small intestine; Z85.810 Personal history of malignant neoplasm of tongue; Z85.46 Personal history of malignant neoplasm of prostate; Z90.49 Acquired absence of other specified parts of digestive tract; Z87.891 Personal history of nicotine dependence; Z86.73 Personal history of transient ischemic attack (TIA), and cerebral infarction without residual deficits
CPT/HCPCS: 93701; 96365; 96366; G0463; J1250; J1642

== ENCOUNTER → 2019-11-06 | Outpatient (CLI) | payer OTHER ==
[2019-11-06] VITALS (9 sets, daily range): BP systolic 115–142; BP diastolic 57–72
== END | disposition home or self-care (01) ==
LOC: CHF HDHVI 08:08
PROVIDERS: ATTEND Internal Medicine Cardiovascular Disease
DX: I13.2 Hypertensive heart and chronic kidney disease with heart failure and with stage 5 chronic kidney disease, or end stage renal disease (principal); I50.84 End stage heart failure; N18.6 End stage renal disease; I50.22 Chronic systolic (congestive) heart failure; E11.22 Type 2 diabetes mellitus with diabetic chronic kidney disease; E11.41 Type 2 diabetes mellitus with diabetic mononeuropathy; E11.21 Type 2 diabetes mellitus with diabetic nephropathy; E11.51 Type 2 diabetes mellitus with diabetic peripheral angiopathy without gangrene; E11.319 Type 2 diabetes mellitus with unspecified diabetic retinopathy without macular edema; I48.91 Unspecified atrial fibrillation; I25.10 Atherosclerotic heart disease of native coronary artery without angina pectoris; F31.9 Bipolar disorder, unspecified; J44.9 Chronic obstructive pulmonary disease, unspecified; K21.9 Gastro-esophageal reflux disease without esophagitis; E78.5 Hyperlipidemia, unspecified; I25.2 Old myocardial infarction; Z79.01 Long term (current) use of anticoagulants; Z90.49 Acquired absence of other specified parts of digestive tract; Z79.899 Other long term (current) drug therapy; Z85.46 Personal history of malignant neoplasm of prostate; Z85.038 Personal history of other malignant neoplasm of large intestine; Z85.810 Personal history of malignant neoplasm of tongue; Z85.068 Personal history of other malignant neoplasm of small intestine; Z87.891 Personal history of nicotine dependence; Z95.0 Presence of cardiac pacemaker; Z86.73 Personal history of transient ischemic attack (TIA), and cerebral infarction without residual deficits
CPT/HCPCS: 96365; 96366; G0463; J1250; J1642

== ENCOUNTER → 2019-11-08 | Outpatient (CLI) | payer OTHER ==
[2019-11-08] VITALS (10 sets, daily range): BP systolic 99–127; BP diastolic 46–66
--- NOTE | 2019-11-08 07:40 | NUR ---
Ayah Cath Insertion 20 gauge Ayah Cath inserted using sterile technique in the R upper chest with occlusive dressing over saucedo needle. Patient tolerated procedure well. Ordered labs drawn and sent. See e-MAR for medications given during this visit. Addendum: 11/08/19 at 1312 by FRAN FELIX RN INSERTED BY GISELA ALVAREZ
--- NOTE | 2019-11-08 10:49 | NUR ---
Ayah Cath Removal Quinones needle D/C'd BY REYMUNDO ALVAREZ after Heparin flush per protocol. See e-MAR for medications given during this visit. Sterile occlusive dressing to site. Patient tolerated procedure well. Site benign post infusion.
--- NOTE | 2019-11-08 10:50 | NUR ---
CHF CLINIC Discharge Instructions See e-MAR for any mediations given with this visit. Patient education given on disease process. Patient verbalized understanding. Previous labs reviewed. Patient discharged in stable condition with after care instructions and follow up appointment. NOTES DOBUTAMINE [id number] ADMIN BY GISELA ALVAREZ HEPARIN IVP X1 ADMIN BY MACY ALVAREZ
== END | disposition home or self-care (01) ==
LOC: CHF HDHVI 07:21
PROVIDERS: ATTEND Internal Medicine Cardiovascular Disease
DX: I13.2 Hypertensive heart and chronic kidney disease with heart failure and with stage 5 chronic kidney disease, or end stage renal disease (principal); N18.6 End stage renal disease; I50.84 End stage heart failure; I50.22 Chronic systolic (congestive) heart failure; I48.91 Unspecified atrial fibrillation; E11.22 Type 2 diabetes mellitus with diabetic chronic kidney disease; E11.41 Type 2 diabetes mellitus with diabetic mononeuropathy; E11.21 Type 2 diabetes mellitus with diabetic nephropathy; E11.51 Type 2 diabetes mellitus with diabetic peripheral angiopathy without gangrene; E11.319 Type 2 diabetes mellitus with unspecified diabetic retinopathy without macular edema; I25.10 Atherosclerotic heart disease of native coronary artery without angina pectoris; F41.9 Anxiety disorder, unspecified; F31.9 Bipolar disorder, unspecified; J44.9 Chronic obstructive pulmonary disease, unspecified; E78.5 Hyperlipidemia, unspecified; K21.9 Gastro-esophageal reflux disease without esophagitis; I48.11 Longstanding persistent atrial fibrillation; E78.00 Pure hypercholesterolemia, unspecified; M19.072 Primary osteoarthritis, left ankle and foot; I25.2 Old myocardial infarction; Z95.1 Presence of aortocoronary bypass graft; Z90.49 Acquired absence of other specified parts of digestive tract; Z79.01 Long term (current) use of anticoagulants; Z79.899 Other long term (current) drug therapy; Z85.038 Personal history of other malignant neoplasm of large intestine; Z85.068 Personal history of other malignant neoplasm of small intestine; Z85.46 Personal history of malignant neoplasm of prostate; Z85.810 Personal history of malignant neoplasm of tongue; Z87.891 Personal history of nicotine dependence; Z86.73 Personal history of transient ischemic attack (TIA), and cerebral infarction without residual deficits; Z95.810 Presence of automatic (implantable) cardiac defibrillator
CPT/HCPCS: 96365; 96366; G0463; J1250; J1642

== ENCOUNTER → 2019-11-11 | Outpatient (CLI) | payer OTHER ==
[~2019-11-11] VITALS: Ht 30.5 cm; Wt 88.4 kg
[2019-11-11] VITALS (9 sets, daily range): BP systolic 104–149; BP diastolic 50–74
--- NOTE | 2019-11-11 11:00 | NUR ---
CHF Clinic Discharge Instructions See e-MAR for any mediations given with this visit. Patient education given on disease process. Patient verbalized understanding. Previous labs reviewed. Patient discharged in stable condition with after care instructions and follow up appointment. Note Dobutamine [id number] admin by Roscoe ALVAREZ Heparin admin by Ebony ALVAREZ
[2019-11-11 12:17] LABS: Basophils # (auto) 0 uL; Eosinophils # (auto) 0.1 uL; Eosinophils % (auto) 1.8 % (0.0-7.0); Mean Corpuscular Hgb Conc. 34.5 g/dL (32.0-36.0); Monocytes # (auto) 0.6 uL; Neutrophils # (auto) 1.9 uL; Red Cell Distribution Width 13.2 % (11.8-14.3)
[2019-11-11 12:23] LABS: Calcium 8.5 mg/dL (8.5-10.1)
[2019-11-11 12:25] LABS: Basophils % (auto) 0.5 % (0.0-2.0); Hematocrit 40.2 % (41.0-53.0); Hemoglobin 13.9 g/dL (13.5-17.5); Lymphocytes # (auto) 1.1 uL; Lymphocytes % (auto) 30.2 % (10.0-50.0); Mean Corpuscular Hemoglobin 34.3 pg (28.0-32.0); Mean Corpuscular Volume 99.4 fL (80.0-100.0); Neutrophils % (auto) 50.5 % (37.0-80.0); Nucleated Red Blood Cells % 0.1 %; Platelet Count (auto) 153 10^3/uL (140-450); Red Blood Cells 4.04 10^6/uL (4.5-5.90); White Blood Cell 3.7 10^3/uL (4.4-10.8)
[2019-11-11 12:28] LABS: Albumin 3.6 g/dL (3.4-5.0); BUN/Creatinine Ratio 16.7; Bilirubin, Total 0.6 mg/dL (0.2-1.0); Magnesium 2.4 mg/dL (1.6-2.6)
== END | disposition home or self-care (01) ==
LOC: CHF HDHVI 08:05
PROVIDERS: ATTEND Internal Medicine Cardiovascular Disease
DX: I13.2 Hypertensive heart and chronic kidney disease with heart failure and with stage 5 chronic kidney disease, or end stage renal disease (principal); E11.22 Type 2 diabetes mellitus with diabetic chronic kidney disease; N18.6 End stage renal disease; I50.22 Chronic systolic (congestive) heart failure; I50.84 End stage heart failure; I25.10 Atherosclerotic heart disease of native coronary artery without angina pectoris; I48.91 Unspecified atrial fibrillation; I25.2 Old myocardial infarction; I27.21 Secondary pulmonary arterial hypertension; I42.8 Other cardiomyopathies; D64.9 Anemia, unspecified; Z90.49 Acquired absence of other specified parts of digestive tract; F41.9 Anxiety disorder, unspecified; F31.9 Bipolar disorder, unspecified; K21.9 Gastro-esophageal reflux disease without esophagitis; E78.5 Hyperlipidemia, unspecified; M19.072 Primary osteoarthritis, left ankle and foot; E78.00 Pure hypercholesterolemia, unspecified; E11.41 Type 2 diabetes mellitus with diabetic mononeuropathy; E11.21 Type 2 diabetes mellitus with diabetic nephropathy; E11.51 Type 2 diabetes mellitus with diabetic peripheral angiopathy without gangrene; E11.319 Type 2 diabetes mellitus with unspecified diabetic retinopathy without macular edema; E03.9 Hypothyroidism, unspecified; G89.29 Other chronic pain; Z79.899 Other long term (current) drug therapy; Z85.030 Personal history of malignant carcinoid tumor of large intestine; Z85.810 Personal history of malignant neoplasm of tongue; Z85.060 Personal history of malignant carcinoid tumor of small intestine; Z85.46 Personal history of malignant neoplasm of prostate; Z95.1 Presence of aortocoronary bypass graft; Z95.810 Presence of automatic (implantable) cardiac defibrillator; Z86.73 Personal history of transient ischemic attack (TIA), and cerebral infarction without residual deficits; Z79.01 Long term (current) use of anticoagulants
CPT/HCPCS: 36415; 80053; 83735; 83880; 85025; 96365; 96366; G0463; J1250; J1642

== ENCOUNTER → 2019-11-13 | Outpatient (CLI) | payer OTHER ==
[2019-11-13] VITALS (9 sets, daily range): BP systolic 117–157; BP diastolic 54–79
[~2019-11-13] VITALS: Ht 30.5 cm; Wt 87.1 kg
--- NOTE | 2019-11-13 07:40 | NUR ---
Ayah Cath Insertion 20 gauge Ayah Cath inserted using sterile technique in the upper chest with occlusive dressing over saucedo needle. Patient tolerated procedure well. Ordered labs drawn and sent. See e-MAR for medications given during this visit. placed by javon ALVAREZ
--- NOTE | 2019-11-13 11:02 | NUR ---
Discharge Instructions See e-MAR for any mediations given with this visit. Patient education given on disease process. Patient verbalized understanding. Previous labs reviewed. Patient discharged in stable condition with after care instructions and follow up appointment. medicationa DOBUTAMINE DRIP [id number] HEPARIN IVP
== END | disposition home or self-care (01) ==
LOC: CHF HDHVI 08:07
PROVIDERS: ATTEND Internal Medicine Cardiovascular Disease
DX: I13.2 Hypertensive heart and chronic kidney disease with heart failure and with stage 5 chronic kidney disease, or end stage renal disease (principal); E11.22 Type 2 diabetes mellitus with diabetic chronic kidney disease; N18.6 End stage renal disease; I50.22 Chronic systolic (congestive) heart failure; I50.84 End stage heart failure; I25.10 Atherosclerotic heart disease of native coronary artery without angina pectoris; I25.2 Old myocardial infarction; I42.8 Other cardiomyopathies; I27.21 Secondary pulmonary arterial hypertension; D64.9 Anemia, unspecified; R53.83 Other fatigue; I48.91 Unspecified atrial fibrillation; J44.9 Chronic obstructive pulmonary disease, unspecified; F41.9 Anxiety disorder, unspecified; F31.9 Bipolar disorder, unspecified; K21.9 Gastro-esophageal reflux disease without esophagitis; E78.5 Hyperlipidemia, unspecified; E03.9 Hypothyroidism, unspecified; G89.29 Other chronic pain; M19.072 Primary osteoarthritis, left ankle and foot; E78.00 Pure hypercholesterolemia, unspecified; E11.41 Type 2 diabetes mellitus with diabetic mononeuropathy; E11.21 Type 2 diabetes mellitus with diabetic nephropathy; E11.51 Type 2 diabetes mellitus with diabetic peripheral angiopathy without gangrene; E11.319 Type 2 diabetes mellitus with unspecified diabetic retinopathy without macular edema; Z95.5 Presence of coronary angioplasty implant and graft; Z79.899 Other long term (current) drug therapy; Z85.030 Personal history of malignant carcinoid tumor of large intestine; Z85.060 Personal history of malignant carcinoid tumor of small intestine; Z85.810 Personal history of malignant neoplasm of tongue; Z85.46 Personal history of malignant neoplasm of prostate; Z95.1 Presence of aortocoronary bypass graft; Z95.810 Presence of automatic (implantable) cardiac defibrillator; Z90.49 Acquired absence of other specified parts of digestive tract; Z79.01 Long term (current) use of anticoagulants; Z86.73 Personal history of transient ischemic attack (TIA), and cerebral infarction without residual deficits
CPT/HCPCS: 96365; 96366; G0463; J1250; J1642

== ENCOUNTER → 2019-11-15 | Outpatient (CLI) | payer OTHER ==
[2019-11-15] VITALS (9 sets, daily range): BP systolic 103–130; BP diastolic 47–66
[~2019-11-15] VITALS: Ht 30.5 cm; Wt 88.5 kg
--- NOTE | 2019-11-15 10:55 | NUR ---
CHF CLINIC Discharge Instructions See e-MAR for any mediations given with this visit. Patient education given on disease process. Patient verbalized understanding. Previous labs reviewed. Patient discharged in stable condition with after care instructions and follow up appointment. NOTES DOBUTAMINE IV [id number] ADMIN BY GISELA ALVAREZ HEPARIN IVP X1 ADMIN BY FRAN ALVAREZ
== END | disposition home or self-care (01) ==
LOC: CHF HDHVI 08:07
PROVIDERS: ATTEND Internal Medicine Cardiovascular Disease
DX: I13.2 Hypertensive heart and chronic kidney disease with heart failure and with stage 5 chronic kidney disease, or end stage renal disease (principal); E11.22 Type 2 diabetes mellitus with diabetic chronic kidney disease; N18.6 End stage renal disease; I50.22 Chronic systolic (congestive) heart failure; I50.84 End stage heart failure; F41.9 Anxiety disorder, unspecified; I25.10 Atherosclerotic heart disease of native coronary artery without angina pectoris; I27.21 Secondary pulmonary arterial hypertension; I25.2 Old myocardial infarction; I48.11 Longstanding persistent atrial fibrillation; F31.9 Bipolar disorder, unspecified; J44.9 Chronic obstructive pulmonary disease, unspecified; K21.9 Gastro-esophageal reflux disease without esophagitis; E78.5 Hyperlipidemia, unspecified; G89.29 Other chronic pain; E78.00 Pure hypercholesterolemia, unspecified; E11.51 Type 2 diabetes mellitus with diabetic peripheral angiopathy without gangrene; E11.319 Type 2 diabetes mellitus with unspecified diabetic retinopathy without macular edema; Z87.891 Personal history of nicotine dependence; Z79.899 Other long term (current) drug therapy; Z85.030 Personal history of malignant carcinoid tumor of large intestine; Z85.060 Personal history of malignant carcinoid tumor of small intestine; Z85.810 Personal history of malignant neoplasm of tongue; Z85.46 Personal history of malignant neoplasm of prostate; Z95.1 Presence of aortocoronary bypass graft; Z95.5 Presence of coronary angioplasty implant and graft; Z95.810 Presence of automatic (implantable) cardiac defibrillator; Z86.73 Personal history of transient ischemic attack (TIA), and cerebral infarction without residual deficits; Z90.49 Acquired absence of other specified parts of digestive tract; Z79.01 Long term (current) use of anticoagulants
CPT/HCPCS: 96365; 96366; G0463; J1250; J1642

== ENCOUNTER → 2019-11-18 | Outpatient (CLI) | payer OTHER ==
[2019-11-18] VITALS (7 sets, daily range): BP systolic 110–123; BP diastolic 52–73
--- NOTE | 2019-11-18 07:30 | NUR ---
Patient brought in by , had episode of bradycardia and fatigue at 5am. EKG done and pacemaker rep contacted for interrogation.
--- NOTE | 2019-11-18 08:15 | NUR ---
Ayah Cath Insertion 20 gauge Ayah Cath inserted using sterile technique in the r upper chest with occlusive dressing over saucedo needle. Patient tolerated procedure well. Ordered labs drawn and sent STAT. See e-MAR for medications given during this visit.
--- NOTE | 2019-11-18 08:30 | NUR ---
Patient placed on continuos heart monitor.
[2019-11-18 08:55] LABS: Basophils # (auto) 0 uL; Basophils % (auto) 0.5 % (0.0-2.0); Eosinophils # (auto) 0.1 uL; Eosinophils % (auto) 1.8 % (0.0-7.0); Hematocrit 40.1 % (41.0-53.0); Hemoglobin 13.8 g/dL (13.5-17.5); Lymphocytes % (auto) 30.7 % (10.0-50.0); Mean Corpuscular Hgb Conc. 34.5 g/dL (32.0-36.0); Mean Corpuscular Volume 98.6 fL (80.0-100.0); Monocytes # (auto) 0.6 uL; Neutrophils # (auto) 1.5 uL; Neutrophils % (auto) 48.3 % (37.0-80.0); Nucleated Red Blood Cells % 0.1 %; Platelet Count (auto) 155 10^3/uL (140-450); Red Blood Cells 4.07 10^6/uL (4.5-5.90); Red Cell Distribution Width 13.2 % (11.8-14.3); White Blood Cell 3.1 10^3/uL (4.4-10.8)
[2019-11-18 08:58] LABS: Monocytes % (auto) 18.7 % (0.0-12.0)
[2019-11-18 08:59] LABS: BUN/Creatinine Ratio 14.4; Calcium 8.7 mg/dL (8.5-10.1); Magnesium 2.3 mg/dL (1.6-2.6)
--- NOTE | 2019-11-18 09:20 | NUR ---
Patient has not had an episode of bradycardia during monitoring.
--- NOTE | 2019-11-18 10:00 | NUR ---
Fernanda ALVAREZ at chairside doing pacemaker interrogation.
== END | disposition home or self-care (01) ==
LOC: CHF HDHVI 07:47
PROVIDERS: ATTEND Internal Medicine Cardiovascular Disease
DX: I13.2 Hypertensive heart and chronic kidney disease with heart failure and with stage 5 chronic kidney disease, or end stage renal disease (principal); N18.6 End stage renal disease; I50.22 Chronic systolic (congestive) heart failure; I50.84 End stage heart failure; I25.10 Atherosclerotic heart disease of native coronary artery without angina pectoris; I48.11 Longstanding persistent atrial fibrillation; I27.21 Secondary pulmonary arterial hypertension; I25.2 Old myocardial infarction; I42.8 Other cardiomyopathies; D64.9 Anemia, unspecified; F41.9 Anxiety disorder, unspecified; R53.83 Other fatigue; F31.9 Bipolar disorder, unspecified; J44.9 Chronic obstructive pulmonary disease, unspecified; K21.9 Gastro-esophageal reflux disease without esophagitis; E78.5 Hyperlipidemia, unspecified; E03.9 Hypothyroidism, unspecified; G89.29 Other chronic pain; M19.072 Primary osteoarthritis, left ankle and foot; E78.00 Pure hypercholesterolemia, unspecified; E11.22 Type 2 diabetes mellitus with diabetic chronic kidney disease; E11.41 Type 2 diabetes mellitus with diabetic mononeuropathy; E11.51 Type 2 diabetes mellitus with diabetic peripheral angiopathy without gangrene; E11.319 Type 2 diabetes mellitus with unspecified diabetic retinopathy without macular edema; Z79.899 Other long term (current) drug therapy; Z85.030 Personal history of malignant carcinoid tumor of large intestine; Z85.060 Personal history of malignant carcinoid tumor of small intestine; Z85.810 Personal history of malignant neoplasm of tongue; Z85.46 Personal history of malignant neoplasm of prostate; Z90.49 Acquired absence of other specified parts of digestive tract; Z87.891 Personal history of nicotine dependence; Z95.1 Presence of aortocoronary bypass graft; Z95.5 Presence of coronary angioplasty implant and graft; Z95.810 Presence of automatic (implantable) cardiac defibrillator; Z86.73 Personal history of transient ischemic attack (TIA), and cerebral infarction without residual deficits; Z79.01 Long term (current) use of anticoagulants
CPT/HCPCS: 36415; 80048; 83735; 83880; 85025; 93005; 96365; 96366; G0463; J1250; J1642

== ENCOUNTER → 2019-11-22 | Outpatient (CLI) | payer OTHER ==
[~2019-11-22] VITALS: Ht 165.1 cm; Wt 88.0 kg
[2019-11-22] VITALS (9 sets, daily range): BP systolic 110–137; BP diastolic 52–74
--- NOTE | 2019-11-22 11:18 | NUR ---
CHF Clinic Discharge Instructions See e-MAR for any mediations given with this visit. Patient education given on disease process. Patient verbalized understanding. Previous labs reviewed. Patient discharged in stable condition with after care instructions and follow up appointment. Note Dobutamine [id number] admin by Aisha ALVAREZ. Heparin admin by Aisha ALVAREZ.
== END | disposition home or self-care (01) ==
LOC: CHF HDHVI 08:01
PROVIDERS: ATTEND Internal Medicine Cardiovascular Disease
DX: I13.2 Hypertensive heart and chronic kidney disease with heart failure and with stage 5 chronic kidney disease, or end stage renal disease (principal); E11.22 Type 2 diabetes mellitus with diabetic chronic kidney disease; N18.6 End stage renal disease; I50.22 Chronic systolic (congestive) heart failure; I50.84 End stage heart failure; I25.10 Atherosclerotic heart disease of native coronary artery without angina pectoris; I48.11 Longstanding persistent atrial fibrillation; I27.21 Secondary pulmonary arterial hypertension; I25.2 Old myocardial infarction; I42.8 Other cardiomyopathies; F41.9 Anxiety disorder, unspecified; F31.9 Bipolar disorder, unspecified; J44.9 Chronic obstructive pulmonary disease, unspecified; R53.83 Other fatigue; K21.9 Gastro-esophageal reflux disease without esophagitis; E78.5 Hyperlipidemia, unspecified; G89.29 Other chronic pain; E78.00 Pure hypercholesterolemia, unspecified; E11.51 Type 2 diabetes mellitus with diabetic peripheral angiopathy without gangrene; E11.319 Type 2 diabetes mellitus with unspecified diabetic retinopathy without macular edema; E03.9 Hypothyroidism, unspecified; M19.072 Primary osteoarthritis, left ankle and foot; E11.41 Type 2 diabetes mellitus with diabetic mononeuropathy; E11.21 Type 2 diabetes mellitus with diabetic nephropathy; Z79.899 Other long term (current) drug therapy; Z85.030 Personal history of malignant carcinoid tumor of large intestine; Z85.060 Personal history of malignant carcinoid tumor of small intestine; Z79.01 Long term (current) use of anticoagulants; Z85.810 Personal history of malignant neoplasm of tongue; Z90.49 Acquired absence of other specified parts of digestive tract; Z85.46 Personal history of malignant neoplasm of prostate; Z87.891 Personal history of nicotine dependence; Z95.1 Presence of aortocoronary bypass graft; Z95.5 Presence of coronary angioplasty implant and graft; Z95.810 Presence of automatic (implantable) cardiac defibrillator; Z86.73 Personal history of transient ischemic attack (TIA), and cerebral infarction without residual deficits
CPT/HCPCS: 96365; 96366; G0463; J1250; J1642

== ENCOUNTER → 2019-11-25 | Outpatient (CLI) | payer OTHER ==
[2019-11-25] VITALS (9 sets, daily range): BP systolic 108–123; BP diastolic 52–66
[~2019-11-25] VITALS: Ht 30.5 cm; Wt 88.3 kg
[~2019-11-25] MED LIST changes: +CYANOCOBALAMIN (B-12) 1000 MCG/1 ML VIAL IM ONE; +CYANOCOBALAMIN (B-12) 1000 MCG/1 ML VIAL ONE
--- NOTE | 2019-11-25 08:00 | NUR ---
Ayah Cath Insertion 20 gauge Ayah Cath inserted using sterile technique in the r upper chest with occlusive dressing over saucedo needle. Patient tolerated procedure well. Ordered labs drawn and sent. See e-MAR for medications given during this visit.
--- NOTE | 2019-11-25 11:20 | NUR ---
CHF CLINIC Discharge Instructions See e-MAR for any mediations given with this visit. Patient education given on disease process. Patient verbalized understanding. Previous labs reviewed. Patient discharged in stable condition with after care instructions and follow up appointment. NOTE DOBUTAMINE [id number] ADMIN BY MACY ALVAREZ. HEPARIN ADMIN BY VÍCTOR ALVAREZ. B12 R DELTOID ADMIN BY FRAN CABRAL.
[2019-11-25 12:01] LABS: Basophils # (auto) 0 uL; Basophils % (auto) 0.6 % (0.0-2.0); Eosinophils # (auto) 0.1 uL; Eosinophils % (auto) 2.2 % (0.0-7.0); Hematocrit 40.5 % (41.0-53.0); Hemoglobin 13.8 g/dL (13.5-17.5); Lymphocytes % (auto) 31.4 % (10.0-50.0); Mean Corpuscular Hemoglobin 33.6 pg (28.0-32.0); Mean Corpuscular Volume 98.8 fL (80.0-100.0); Monocytes # (auto) 0.5 uL; Monocytes % (auto) 16.6 % (0.0-12.0); Neutrophils # (auto) 1.6 uL; Neutrophils % (auto) 49.2 % (37.0-80.0); Platelet Count (auto) 153 10^3/uL (140-450); Red Cell Distribution Width 12.9 % (11.8-14.3); White Blood Cell 3.2 10^3/uL (4.4-10.8)
[2019-11-25 12:12] LABS: Potassium 4.1 mmol/L (3.5-5.1)
[2019-11-25 12:25] LABS: BUN/Creatinine Ratio 15.2; Calcium 8.9 mg/dL (8.5-10.1); Magnesium 2.5 mg/dL (1.6-2.6)
== END | disposition home or self-care (01) ==
LOC: CHF HDHVI 08:08
PROVIDERS: ATTEND Internal Medicine Cardiovascular Disease
DX: I13.2 Hypertensive heart and chronic kidney disease with heart failure and with stage 5 chronic kidney disease, or end stage renal disease (principal); E11.22 Type 2 diabetes mellitus with diabetic chronic kidney disease; N18.6 End stage renal disease; I50.22 Chronic systolic (congestive) heart failure; I50.84 End stage heart failure; I25.10 Atherosclerotic heart disease of native coronary artery without angina pectoris; I48.11 Longstanding persistent atrial fibrillation; I27.21 Secondary pulmonary arterial hypertension; I25.2 Old myocardial infarction; I42.8 Other cardiomyopathies; J44.9 Chronic obstructive pulmonary disease, unspecified; R53.83 Other fatigue; D64.9 Anemia, unspecified; F41.9 Anxiety disorder, unspecified; F31.9 Bipolar disorder, unspecified; K21.9 Gastro-esophageal reflux disease without esophagitis; E78.5 Hyperlipidemia, unspecified; E03.9 Hypothyroidism, unspecified; G89.29 Other chronic pain; E78.00 Pure hypercholesterolemia, unspecified; E11.41 Type 2 diabetes mellitus with diabetic mononeuropathy; E11.21 Type 2 diabetes mellitus with diabetic nephropathy; E11.319 Type 2 diabetes mellitus with unspecified diabetic retinopathy without macular edema; Z79.899 Other long term (current) drug therapy; Z85.030 Personal history of malignant carcinoid tumor of large intestine; Z85.060 Personal history of malignant carcinoid tumor of small intestine; Z85.810 Personal history of malignant neoplasm of tongue; Z85.46 Personal history of malignant neoplasm of prostate; Z87.891 Personal history of nicotine dependence; Z95.1 Presence of aortocoronary bypass graft; Z95.5 Presence of coronary angioplasty implant and graft; Z79.01 Long term (current) use of anticoagulants; Z95.810 Presence of automatic (implantable) cardiac defibrillator; Z86.73 Personal history of transient ischemic attack (TIA), and cerebral infarction without residual deficits
CPT/HCPCS: 36415; 80048; 83735; 83880; 85025; 96365; 96366; 96372; G0463; J1250; J1642; J3420

== ENCOUNTER → 2019-11-29 | Outpatient (CLI) | payer OTHER ==
[~2019-11-29] MED LIST changes: -CYANOCOBALAMIN (B-12) 1000 MCG/1 ML VIAL IM ONE; -CYANOCOBALAMIN (B-12) 1000 MCG/1 ML VIAL ONE
--- NOTE | 2019-11-29 07:30 | NUR ---
CHF ARRIVED AT CHF CLINIC FOR WEEKLY TX AND F/U. PT A/O X 4 0 DISTRESS VSS
[2019-11-29 07:42] VITALS: BP 124/75
[2019-11-29 08:00] VITALS: BP 111/58
[2019-11-29 08:15] VITALS: BP 127/64
[2019-11-29 08:30] VITALS: BP 124/63
[2019-11-29 09:00] VITALS: BP 130/68
[2019-11-29 11:00] VITALS: BP 129/79
--- NOTE | 2019-11-29 11:00 | NUR ---
Discharge Instructions See e-MAR for any mediations given with this visit. Patient education given on disease process. Patient verbalized understanding. Previous labs reviewed. Patient discharged in stable condition with after care instructions and follow up appointment. MEDICATIONS DOBUTAMINE DRIP [id number] HEPARIN IVP
== END | disposition home or self-care (01) ==
LOC: CHF HDHVI 07:49
PROVIDERS: ATTEND Internal Medicine Cardiovascular Disease
DX: I13.2 Hypertensive heart and chronic kidney disease with heart failure and with stage 5 chronic kidney disease, or end stage renal disease (principal); E11.22 Type 2 diabetes mellitus with diabetic chronic kidney disease; N18.6 End stage renal disease; I50.22 Chronic systolic (congestive) heart failure; I50.84 End stage heart failure; I25.10 Atherosclerotic heart disease of native coronary artery without angina pectoris; I48.11 Longstanding persistent atrial fibrillation; I27.21 Secondary pulmonary arterial hypertension; F31.9 Bipolar disorder, unspecified; J44.9 Chronic obstructive pulmonary disease, unspecified; F41.9 Anxiety disorder, unspecified; K21.9 Gastro-esophageal reflux disease without esophagitis; E78.5 Hyperlipidemia, unspecified; E03.9 Hypothyroidism, unspecified; E78.00 Pure hypercholesterolemia, unspecified; E11.41 Type 2 diabetes mellitus with diabetic mononeuropathy; E11.21 Type 2 diabetes mellitus with diabetic nephropathy; E11.319 Type 2 diabetes mellitus with unspecified diabetic retinopathy without macular edema; E11.51 Type 2 diabetes mellitus with diabetic peripheral angiopathy without gangrene; M19.072 Primary osteoarthritis, left ankle and foot; Z85.030 Personal history of malignant carcinoid tumor of large intestine; Z85.060 Personal history of malignant carcinoid tumor of small intestine; Z85.810 Personal history of malignant neoplasm of tongue; Z85.46 Personal history of malignant neoplasm of prostate; Z87.891 Personal history of nicotine dependence; Z95.1 Presence of aortocoronary bypass graft; Z95.5 Presence of coronary angioplasty implant and graft; Z95.810 Presence of automatic (implantable) cardiac defibrillator; Z79.01 Long term (current) use of anticoagulants; Z90.49 Acquired absence of other specified parts of digestive tract; Z86.73 Personal history of transient ischemic attack (TIA), and cerebral infarction without residual deficits
CPT/HCPCS: 96365; 96366; G0463; J1250; J1642

== ENCOUNTER → 2019-12-02 | Outpatient (CLI) | payer OTHER ==
[2019-12-02] VITALS (9 sets, daily range): BP systolic 99–128; BP diastolic 49–65
[2019-12-02 13:31] LABS: Potassium 3.9 mmol/L (3.5-5.1)
== END | disposition home or self-care (01) ==
LOC: CHF HDHVI 07:48
PROVIDERS: ATTEND Internal Medicine Cardiovascular Disease
DX: I13.2 Hypertensive heart and chronic kidney disease with heart failure and with stage 5 chronic kidney disease, or end stage renal disease (principal); E11.22 Type 2 diabetes mellitus with diabetic chronic kidney disease; N18.6 End stage renal disease; I50.22 Chronic systolic (congestive) heart failure; I50.84 End stage heart failure; I25.10 Atherosclerotic heart disease of native coronary artery without angina pectoris; I48.11 Longstanding persistent atrial fibrillation; I25.2 Old myocardial infarction; I42.8 Other cardiomyopathies; I27.21 Secondary pulmonary arterial hypertension; F41.9 Anxiety disorder, unspecified; F31.9 Bipolar disorder, unspecified; J44.9 Chronic obstructive pulmonary disease, unspecified; K21.9 Gastro-esophageal reflux disease without esophagitis; E78.5 Hyperlipidemia, unspecified; E03.9 Hypothyroidism, unspecified; E78.00 Pure hypercholesterolemia, unspecified; E11.41 Type 2 diabetes mellitus with diabetic mononeuropathy; E11.21 Type 2 diabetes mellitus with diabetic nephropathy; E11.51 Type 2 diabetes mellitus with diabetic peripheral angiopathy without gangrene; E11.319 Type 2 diabetes mellitus with unspecified diabetic retinopathy without macular edema; G89.29 Other chronic pain; Z79.899 Other long term (current) drug therapy; Z85.030 Personal history of malignant carcinoid tumor of large intestine; Z85.060 Personal history of malignant carcinoid tumor of small intestine; Z85.810 Personal history of malignant neoplasm of tongue; Z85.46 Personal history of malignant neoplasm of prostate; Z87.891 Personal history of nicotine dependence; Z95.1 Presence of aortocoronary bypass graft; Z95.810 Presence of automatic (implantable) cardiac defibrillator; Z86.73 Personal history of transient ischemic attack (TIA), and cerebral infarction without residual deficits; Z95.5 Presence of coronary angioplasty implant and graft; Z90.49 Acquired absence of other specified parts of digestive tract; Z79.01 Long term (current) use of anticoagulants
CPT/HCPCS: 36415; 82565; 83880; 84132; 84520; 96365; 96366; G0463; J1250; J1642

== ENCOUNTER → 2019-12-04 | Outpatient (CLI) | payer OTHER ==
[2019-12-04] VITALS (10 sets, daily range): BP systolic 109–127; BP diastolic 55–70
--- NOTE | 2019-12-04 07:59 | NUR ---
Ayah Cath Insertion [20] gauge Ayah Cath inserted BY MACY ALVAREZ using sterile technique in the [RIGHT] upper chest with occlusive dressing over saucedo needle. Patient tolerated procedure well. Ordered labs drawn and sent. See e-MAR for medications given during this visit.
--- NOTE | 2019-12-04 08:00 | NUR ---
Ayah Cath Removal Quinones needle D/C'd after Heparin flush per protocol. See e-MAR for medications given during this visit. Sterile occlusive dressing to site. Patient tolerated procedure well. Site benign post infusion. Addendum: 12/04/19 at 1242 by FRAN FELIX RN WRONG TIME, ACTUAL TIME 1123
--- NOTE | 2019-12-04 11:24 | NUR ---
CHF CLINIC Discharge Instructions See e-MAR for any mediations given with this visit. Patient education given on disease process. Patient verbalized understanding. Previous labs reviewed. Patient discharged in stable condition with after care instructions and follow up appointment. NOTES DOBUTAMINE IV [id number] ADMIN BY MACY ALVAREZ HEPARIN IVP X 1 VIA PORT-A-CATH ADMIN BY FRAN ALVAREZ
== END | disposition home or self-care (01) ==
LOC: CHF HDHVI 07:49
PROVIDERS: ATTEND Internal Medicine Cardiovascular Disease
DX: I13.2 Hypertensive heart and chronic kidney disease with heart failure and with stage 5 chronic kidney disease, or end stage renal disease (principal); E11.22 Type 2 diabetes mellitus with diabetic chronic kidney disease; N18.6 End stage renal disease; I50.22 Chronic systolic (congestive) heart failure; I50.84 End stage heart failure; I48.11 Longstanding persistent atrial fibrillation; I27.21 Secondary pulmonary arterial hypertension; I25.10 Atherosclerotic heart disease of native coronary artery without angina pectoris; I25.2 Old myocardial infarction; I42.8 Other cardiomyopathies; F41.9 Anxiety disorder, unspecified; F31.9 Bipolar disorder, unspecified; J44.9 Chronic obstructive pulmonary disease, unspecified; K21.9 Gastro-esophageal reflux disease without esophagitis; E78.5 Hyperlipidemia, unspecified; E03.9 Hypothyroidism, unspecified; G89.29 Other chronic pain; E78.00 Pure hypercholesterolemia, unspecified; E11.41 Type 2 diabetes mellitus with diabetic mononeuropathy; E11.51 Type 2 diabetes mellitus with diabetic peripheral angiopathy without gangrene; E11.319 Type 2 diabetes mellitus with unspecified diabetic retinopathy without macular edema; M19.072 Primary osteoarthritis, left ankle and foot; Z79.899 Other long term (current) drug therapy; Z85.030 Personal history of malignant carcinoid tumor of large intestine; Z85.060 Personal history of malignant carcinoid tumor of small intestine; Z85.810 Personal history of malignant neoplasm of tongue; Z85.46 Personal history of malignant neoplasm of prostate; Z95.1 Presence of aortocoronary bypass graft; Z95.5 Presence of coronary angioplasty implant and graft; Z95.810 Presence of automatic (implantable) cardiac defibrillator; Z86.73 Personal history of transient ischemic attack (TIA), and cerebral infarction without residual deficits; Z90.49 Acquired absence of other specified parts of digestive tract; Z79.01 Long term (current) use of anticoagulants
CPT/HCPCS: 96365; 96366; G0463; J1250; J1642

== ENCOUNTER → 2019-12-06 | Outpatient (CLI) | payer OTHER ==
[~2019-12-06] VITALS: Ht 165.1 cm; Wt 88.0 kg
[2019-12-06] VITALS (10 sets, daily range): BP systolic 103–125; BP diastolic 53–67
--- NOTE | 2019-12-06 11:15 | NUR ---
Discharge Instructions See e-MAR for any mediations given with this visit. Patient education given on disease process. Patient verbalized understanding. Previous labs reviewed. Patient discharged in stable condition with after care instructions and follow up appointment. MEDICATIONS DOBUTAMINE DRIP [id number] HEPARIN IVP
== END | disposition home or self-care (01) ==
LOC: CHF HDHVI 07:53
PROVIDERS: ATTEND Internal Medicine Cardiovascular Disease
DX: I13.2 Hypertensive heart and chronic kidney disease with heart failure and with stage 5 chronic kidney disease, or end stage renal disease (principal); E11.22 Type 2 diabetes mellitus with diabetic chronic kidney disease; N18.6 End stage renal disease; I50.22 Chronic systolic (congestive) heart failure; I50.84 End stage heart failure; I48.11 Longstanding persistent atrial fibrillation; I25.10 Atherosclerotic heart disease of native coronary artery without angina pectoris; I25.2 Old myocardial infarction; I42.8 Other cardiomyopathies; I27.21 Secondary pulmonary arterial hypertension; R53.83 Other fatigue; F41.9 Anxiety disorder, unspecified; F31.9 Bipolar disorder, unspecified; J44.9 Chronic obstructive pulmonary disease, unspecified; K21.9 Gastro-esophageal reflux disease without esophagitis; E03.9 Hypothyroidism, unspecified; G89.29 Other chronic pain; E78.00 Pure hypercholesterolemia, unspecified; E11.41 Type 2 diabetes mellitus with diabetic mononeuropathy; E11.21 Type 2 diabetes mellitus with diabetic nephropathy; Z79.899 Other long term (current) drug therapy; Z85.030 Personal history of malignant carcinoid tumor of large intestine; Z85.060 Personal history of malignant carcinoid tumor of small intestine; Z85.810 Personal history of malignant neoplasm of tongue; Z85.46 Personal history of malignant neoplasm of prostate; Z95.1 Presence of aortocoronary bypass graft; Z95.810 Presence of automatic (implantable) cardiac defibrillator; Z95.5 Presence of coronary angioplasty implant and graft; Z86.73 Personal history of transient ischemic attack (TIA), and cerebral infarction without residual deficits; Z87.891 Personal history of nicotine dependence; Z90.49 Acquired absence of other specified parts of digestive tract; Z79.01 Long term (current) use of anticoagulants
CPT/HCPCS: 93701; 96365; 96366; G0463; J1250; J1642

== ENCOUNTER → 2019-12-09 | Outpatient (CLI) | payer OTHER ==
[2019-12-09] VITALS (9 sets, daily range): BP systolic 106–125; BP diastolic 53–71
--- NOTE | 2019-12-09 07:30 | NUR ---
Clinic Provider Clinic Provider UPDATED BY GISELA ALVAREZ with new orders received and carried out. Dobutamine gtt started at {5}mcg/kg/hr peR
--- NOTE | 2019-12-09 07:45 | NUR ---
Ayah Cath Insertion 20 gauge Ayah Cath inserted using sterile technique in the upper chest with occlusive dressing over saucedo needle. Patient tolerated procedure well. See e-MAR for medications given during this visit. STRATED BY GISELA ALVAREZ
--- NOTE | 2019-12-09 11:00 | NUR ---
Discharge Instructions See e-MAR for any mediations given with this visit. Patient education given on disease process. Patient verbalized understanding. Previous labs reviewed. Patient discharged in stable condition with after care instructions and follow up appointment. MEDICATIONS DOBUTAMINE DRIP [id number] HEPARIN IVP
== END | disposition home or self-care (01) ==
LOC: CHF HDHVI 08:08
PROVIDERS: ATTEND Internal Medicine Cardiovascular Disease
DX: I13.2 Hypertensive heart and chronic kidney disease with heart failure and with stage 5 chronic kidney disease, or end stage renal disease (principal); E11.22 Type 2 diabetes mellitus with diabetic chronic kidney disease; N18.6 End stage renal disease; I50.22 Chronic systolic (congestive) heart failure; I50.84 End stage heart failure; I25.10 Atherosclerotic heart disease of native coronary artery without angina pectoris; I48.11 Longstanding persistent atrial fibrillation; I25.2 Old myocardial infarction; I42.8 Other cardiomyopathies; F31.9 Bipolar disorder, unspecified; F41.9 Anxiety disorder, unspecified; J44.9 Chronic obstructive pulmonary disease, unspecified; K21.9 Gastro-esophageal reflux disease without esophagitis; E78.5 Hyperlipidemia, unspecified; E03.9 Hypothyroidism, unspecified; G89.29 Other chronic pain; M19.072 Primary osteoarthritis, left ankle and foot; E78.00 Pure hypercholesterolemia, unspecified; E11.41 Type 2 diabetes mellitus with diabetic mononeuropathy; E11.319 Type 2 diabetes mellitus with unspecified diabetic retinopathy without macular edema; E11.21 Type 2 diabetes mellitus with diabetic nephropathy; Z79.899 Other long term (current) drug therapy; Z85.030 Personal history of malignant carcinoid tumor of large intestine; Z85.060 Personal history of malignant carcinoid tumor of small intestine; Z85.46 Personal history of malignant neoplasm of prostate; Z85.810 Personal history of malignant neoplasm of tongue; Z87.891 Personal history of nicotine dependence; Z95.1 Presence of aortocoronary bypass graft; Z95.5 Presence of coronary angioplasty implant and graft; Z90.49 Acquired absence of other specified parts of digestive tract; Z95.810 Presence of automatic (implantable) cardiac defibrillator; Z86.73 Personal history of transient ischemic attack (TIA), and cerebral infarction without residual deficits; Z79.01 Long term (current) use of anticoagulants
CPT/HCPCS: 96365; 96366; G0463; J1250; J1642

== ENCOUNTER → 2019-12-11 | Outpatient (CLI) | payer OTHER ==
[~2019-12-11] VITALS: Ht 30.5 cm; Wt 0.5 kg
[2019-12-11] VITALS (9 sets, daily range): BP systolic 103–124; BP diastolic 51–65
[~2019-12-11] MED LIST changes: +DOBUTamine 1000MCG/ML 250 ML IV SCH
--- NOTE | 2019-12-11 10:58 | NUR ---
CHF CLINIC Discharge Instructions See e-MAR for any mediations given with this visit. Patient education given on disease process. Patient verbalized understanding. Previous labs reviewed. Patient discharged in stable condition with after care instructions and follow up appointment. NOTE DOBUTAMINE [id number] ADMIN BY GISELA ALVAREZ HEPARIN ADMIN BY VLAD ALVAREZ, SUPERVISED BY MACY ALVAREZ.
[2019-12-11 12:15] LABS: Basophils # (auto) 0 uL; Basophils % (auto) 0.7 % (0.0-2.0); Eosinophils # (auto) 0.1 uL; Eosinophils % (auto) 2.3 % (0.0-7.0); Hemoglobin 13.9 g/dL (13.5-17.5); Lymphocytes % (auto) 29.8 % (10.0-50.0); Mean Corpuscular Hemoglobin 33.4 pg (28.0-32.0); Mean Corpuscular Hgb Conc. 33.9 g/dL (32.0-36.0); Mean Corpuscular Volume 98.4 fL (80.0-100.0); Monocytes # (auto) 0.5 uL; Neutrophils # (auto) 1.7 uL; Neutrophils % (auto) 51.2 % (37.0-80.0); Nucleated Red Blood Cells % 0.1 %; Platelet Count (auto) 151 10^3/uL (140-450); Red Blood Cells 4.16 10^6/uL (4.5-5.90); Red Cell Distribution Width 12.6 % (11.8-14.3); White Blood Cell 3.3 10^3/uL (4.4-10.8)
[2019-12-11 12:26] LABS: Potassium 3.6 mmol/L (3.5-5.1)
[2019-12-11 12:38] LABS: BUN/Creatinine Ratio 13.6; Calcium 9.1 mg/dL (8.5-10.1); Magnesium 2.5 mg/dL (1.6-2.6)
== END | disposition home or self-care (01) ==
LOC: CHF HDHVI 07:53
PROVIDERS: ATTEND Internal Medicine Cardiovascular Disease
DX: I13.2 Hypertensive heart and chronic kidney disease with heart failure and with stage 5 chronic kidney disease, or end stage renal disease (principal); E11.22 Type 2 diabetes mellitus with diabetic chronic kidney disease; N18.6 End stage renal disease; I50.22 Chronic systolic (congestive) heart failure; I50.84 End stage heart failure; I48.91 Unspecified atrial fibrillation; I27.21 Secondary pulmonary arterial hypertension; I25.2 Old myocardial infarction; I42.8 Other cardiomyopathies; F41.9 Anxiety disorder, unspecified; F31.9 Bipolar disorder, unspecified; J44.9 Chronic obstructive pulmonary disease, unspecified; K21.9 Gastro-esophageal reflux disease without esophagitis; E03.9 Hypothyroidism, unspecified; E78.00 Pure hypercholesterolemia, unspecified; E11.41 Type 2 diabetes mellitus with diabetic mononeuropathy; E78.5 Hyperlipidemia, unspecified; M19.072 Primary osteoarthritis, left ankle and foot; E11.51 Type 2 diabetes mellitus with diabetic peripheral angiopathy without gangrene; E11.319 Type 2 diabetes mellitus with unspecified diabetic retinopathy without macular edema; Z79.899 Other long term (current) drug therapy; Z85.030 Personal history of malignant carcinoid tumor of large intestine; Z85.060 Personal history of malignant carcinoid tumor of small intestine; Z85.810 Personal history of malignant neoplasm of tongue; Z85.46 Personal history of malignant neoplasm of prostate; Z87.891 Personal history of nicotine dependence; Z95.1 Presence of aortocoronary bypass graft; Z95.810 Presence of automatic (implantable) cardiac defibrillator; Z86.73 Personal history of transient ischemic attack (TIA), and cerebral infarction without residual deficits; Z79.01 Long term (current) use of anticoagulants; Z90.49 Acquired absence of other specified parts of digestive tract
CPT/HCPCS: 36415; 80048; 83735; 83880; 85025; 96365; 96366; G0463; J1250; J1642

== ENCOUNTER → 2019-12-13 | Outpatient (CLI) | payer OTHER ==
[~2019-12-13] VITALS: Ht 30.5 cm; Wt 89.8 kg
[2019-12-13] VITALS (9 sets, daily range): BP systolic 100–127; BP diastolic 48–68
[~2019-12-13] MED LIST changes: +BACITRACIN TOP OINT 1 UD PKG TOP ONE; -DOBUTamine 1000MCG/ML 250 ML IV SCH
--- NOTE | 2019-12-13 07:35 | NUR ---
Ayah Cath Insertion [20] gauge Ayah Cath inserted BY GISELA ALVAREZ using sterile technique in the [R] upper chest with occlusive dressing over saucedo needle. Patient tolerated procedure well. Ordered labs drawn and sent. See e-MAR for medications given during this visit.
--- NOTE | 2019-12-13 10:35 | NUR ---
CHF CLINIC Discharge Instructions See e-MAR for any mediations given with this visit. Patient education given on disease process. Patient verbalized understanding. Previous labs reviewed. Patient discharged in stable condition with after care instructions and follow up appointment. NOTES DOBUTAMINE IV [id number] ADMIN BY GISELA ALVAREZ BACITRACIN OINT TOPICALLY TO RUC PORT-A-CATH INCISION/SUTURE SITE ADMIN BY FRAN ALVAREZ HEPARIN IVP VIA PORT-A-CATH ADMIN BY FRAN ALVAREZ
== END | disposition home or self-care (01) ==
LOC: CHF HDHVI 07:58
PROVIDERS: ATTEND Internal Medicine Cardiovascular Disease
DX: I13.2 Hypertensive heart and chronic kidney disease with heart failure and with stage 5 chronic kidney disease, or end stage renal disease (principal); E11.22 Type 2 diabetes mellitus with diabetic chronic kidney disease; N18.6 End stage renal disease; I50.22 Chronic systolic (congestive) heart failure; I50.84 End stage heart failure; I25.10 Atherosclerotic heart disease of native coronary artery without angina pectoris; I48.11 Longstanding persistent atrial fibrillation; I25.2 Old myocardial infarction; I42.8 Other cardiomyopathies; F41.9 Anxiety disorder, unspecified; F31.9 Bipolar disorder, unspecified; J44.9 Chronic obstructive pulmonary disease, unspecified; K21.9 Gastro-esophageal reflux disease without esophagitis; E78.5 Hyperlipidemia, unspecified; E03.9 Hypothyroidism, unspecified; M19.072 Primary osteoarthritis, left ankle and foot; E78.00 Pure hypercholesterolemia, unspecified; E11.41 Type 2 diabetes mellitus with diabetic mononeuropathy; E11.319 Type 2 diabetes mellitus with unspecified diabetic retinopathy without macular edema; G89.29 Other chronic pain; Z79.899 Other long term (current) drug therapy; Z85.030 Personal history of malignant carcinoid tumor of large intestine; Z85.060 Personal history of malignant carcinoid tumor of small intestine; Z85.810 Personal history of malignant neoplasm of tongue; Z85.46 Personal history of malignant neoplasm of prostate; Z87.891 Personal history of nicotine dependence; Z95.1 Presence of aortocoronary bypass graft; Z95.810 Presence of automatic (implantable) cardiac defibrillator; Z95.5 Presence of coronary angioplasty implant and graft; Z90.49 Acquired absence of other specified parts of digestive tract; Z79.01 Long term (current) use of anticoagulants; Z86.73 Personal history of transient ischemic attack (TIA), and cerebral infarction without residual deficits
CPT/HCPCS: 96365; 96366; G0463; J1250; J1642

== ENCOUNTER → 2019-12-16 | Outpatient (CLI) | payer OTHER ==
[~2019-12-16] VITALS: Ht 30.5 cm; Wt 88.0 kg
[2019-12-16] VITALS (9 sets, daily range): BP systolic 95–113; BP diastolic 43–59
[~2019-12-16] MED LIST changes: -BACITRACIN TOP OINT 1 UD PKG TOP ONE
--- NOTE | 2019-12-16 07:30 | NUR ---
Clinic Provider Clinic Provider UPDATED ON PT STATUS new orders received and carried out. Dobutamine gtt at {5}mcg/kg/hr per MD order.
--- NOTE | 2019-12-16 10:59 | NUR ---
Discharge Instructions See e-MAR for any mediations given with this visit. Patient education given on disease process. Patient verbalized understanding. Previous labs reviewed. Patient discharged in stable condition with after care instructions and follow up appointment. MEDICATIONS DOBUTAMINE DRIP [id number] HEPARIN IVP
== END | disposition home or self-care (01) ==
LOC: CHF HDHVI 07:55
PROVIDERS: ATTEND Internal Medicine Cardiovascular Disease
DX: I13.2 Hypertensive heart and chronic kidney disease with heart failure and with stage 5 chronic kidney disease, or end stage renal disease (principal); I50.22 Chronic systolic (congestive) heart failure; N18.6 End stage renal disease; I50.84 End stage heart failure; F31.9 Bipolar disorder, unspecified; I25.10 Atherosclerotic heart disease of native coronary artery without angina pectoris; J44.9 Chronic obstructive pulmonary disease, unspecified; E78.5 Hyperlipidemia, unspecified; E03.9 Hypothyroidism, unspecified; I48.11 Longstanding persistent atrial fibrillation; I25.2 Old myocardial infarction; M19.072 Primary osteoarthritis, left ankle and foot; E78.00 Pure hypercholesterolemia, unspecified; E11.22 Type 2 diabetes mellitus with diabetic chronic kidney disease; E11.319 Type 2 diabetes mellitus with unspecified diabetic retinopathy without macular edema; I27.21 Secondary pulmonary arterial hypertension; E11.51 Type 2 diabetes mellitus with diabetic peripheral angiopathy without gangrene; E11.40 Type 2 diabetes mellitus with diabetic neuropathy, unspecified; Z90.49 Acquired absence of other specified parts of digestive tract; Z79.01 Long term (current) use of anticoagulants; Z79.899 Other long term (current) drug therapy; Z85.038 Personal history of other malignant neoplasm of large intestine; Z85.068 Personal history of other malignant neoplasm of small intestine; Z85.46 Personal history of malignant neoplasm of prostate; Z85.810 Personal history of malignant neoplasm of tongue; Z87.891 Personal history of nicotine dependence; Z95.1 Presence of aortocoronary bypass graft; Z95.810 Presence of automatic (implantable) cardiac defibrillator; Z86.73 Personal history of transient ischemic attack (TIA), and cerebral infarction without residual deficits
CPT/HCPCS: 96365; 96366; G0463; J1250; J1642

== ENCOUNTER → 2019-12-18 | Outpatient (CLI) | payer OTHER ==
[2019-12-18] VITALS (9 sets, daily range): BP systolic 99–127; BP diastolic 45–71
--- NOTE | 2019-12-18 07:30 | NUR ---
PT. TO CHF CLINIC FOR DOBUTAMINE INFUSION PER MD ORDER. PT. STATES DECREASED ENERGY SINCE LAST TX. VSS. AOX4 PWD. ORDERS RECEIVED AND CARRIED OUT. SEE NSG. ASSESS.
--- NOTE | 2019-12-18 07:49 | NUR ---
MEDS: DOBUTAMINE DRIP STARTED AT 5 MCG/KG/MIN. PER MD ORDER.
--- NOTE | 2019-12-18 09:00 | NUR ---
COMFORT: PT. RESTING WITH NO C/O. VSS
== END | disposition home or self-care (01) ==
LOC: CHF HDHVI 07:52
PROVIDERS: ATTEND Internal Medicine Cardiovascular Disease
DX: I13.2 Hypertensive heart and chronic kidney disease with heart failure and with stage 5 chronic kidney disease, or end stage renal disease (principal); E11.22 Type 2 diabetes mellitus with diabetic chronic kidney disease; N18.6 End stage renal disease; I50.22 Chronic systolic (congestive) heart failure; I50.84 End stage heart failure; I25.10 Atherosclerotic heart disease of native coronary artery without angina pectoris; I42.8 Other cardiomyopathies; I27.21 Secondary pulmonary arterial hypertension; F41.9 Anxiety disorder, unspecified; J44.9 Chronic obstructive pulmonary disease, unspecified; E78.5 Hyperlipidemia, unspecified; E03.9 Hypothyroidism, unspecified; I48.11 Longstanding persistent atrial fibrillation; I25.2 Old myocardial infarction; M19.90 Unspecified osteoarthritis, unspecified site; E78.00 Pure hypercholesterolemia, unspecified; E11.21 Type 2 diabetes mellitus with diabetic nephropathy; E11.51 Type 2 diabetes mellitus with diabetic peripheral angiopathy without gangrene; E11.319 Type 2 diabetes mellitus with unspecified diabetic retinopathy without macular edema; F31.9 Bipolar disorder, unspecified; K21.9 Gastro-esophageal reflux disease without esophagitis; G89.29 Other chronic pain; E11.41 Type 2 diabetes mellitus with diabetic mononeuropathy; Z85.030 Personal history of malignant carcinoid tumor of large intestine; Z85.060 Personal history of malignant carcinoid tumor of small intestine; Z85.810 Personal history of malignant neoplasm of tongue; Z85.46 Personal history of malignant neoplasm of prostate; Z87.891 Personal history of nicotine dependence; Z95.1 Presence of aortocoronary bypass graft; Z95.810 Presence of automatic (implantable) cardiac defibrillator; Z86.73 Personal history of transient ischemic attack (TIA), and cerebral infarction without residual deficits; Z90.49 Acquired absence of other specified parts of digestive tract; Z79.01 Long term (current) use of anticoagulants; Z79.899 Other long term (current) drug therapy
CPT/HCPCS: 96365; 96366; G0463; J1250; J1642

== ENCOUNTER → 2019-12-20 | Outpatient (CLI) | payer OTHER ==
[2019-12-20] VITALS (10 sets, daily range): BP systolic 104–139; BP diastolic 52–71
[~2019-12-20] VITALS: Ht 30.5 cm; Wt 89.2 kg
--- NOTE | 2019-12-20 10:55 | NUR ---
[facility] Discharge Instructions See e-MAR for any mediations given with this visit. Patient education given on disease process. Patient verbalized understanding. Previous labs reviewed. Patient discharged in stable condition with after care instructions and follow up appointment. NOTE DOBUTAMINE [id number] ADMIN BY GISELA ALVAREZ HEPARIN ADMIN BY GISELA ALVAREZ
== END | disposition home or self-care (01) ==
LOC: CHF HDHVI 08:17
PROVIDERS: ATTEND Internal Medicine Cardiovascular Disease
DX: I13.2 Hypertensive heart and chronic kidney disease with heart failure and with stage 5 chronic kidney disease, or end stage renal disease (principal); E11.22 Type 2 diabetes mellitus with diabetic chronic kidney disease; N18.6 End stage renal disease; I50.22 Chronic systolic (congestive) heart failure; I50.84 End stage heart failure; I48.11 Longstanding persistent atrial fibrillation; I25.10 Atherosclerotic heart disease of native coronary artery without angina pectoris; I27.21 Secondary pulmonary arterial hypertension; I25.2 Old myocardial infarction; I42.8 Other cardiomyopathies; F31.9 Bipolar disorder, unspecified; F41.9 Anxiety disorder, unspecified; J44.9 Chronic obstructive pulmonary disease, unspecified; K21.9 Gastro-esophageal reflux disease without esophagitis; E78.5 Hyperlipidemia, unspecified; E03.9 Hypothyroidism, unspecified; G89.29 Other chronic pain; E78.00 Pure hypercholesterolemia, unspecified; E11.41 Type 2 diabetes mellitus with diabetic mononeuropathy; E11.21 Type 2 diabetes mellitus with diabetic nephropathy; E11.319 Type 2 diabetes mellitus with unspecified diabetic retinopathy without macular edema; E11.51 Type 2 diabetes mellitus with diabetic peripheral angiopathy without gangrene; M19.90 Unspecified osteoarthritis, unspecified site; Z79.899 Other long term (current) drug therapy; Z85.030 Personal history of malignant carcinoid tumor of large intestine; Z85.060 Personal history of malignant carcinoid tumor of small intestine; Z85.810 Personal history of malignant neoplasm of tongue; Z85.46 Personal history of malignant neoplasm of prostate; Z87.891 Personal history of nicotine dependence; Z79.01 Long term (current) use of anticoagulants; Z95.1 Presence of aortocoronary bypass graft; Z95.5 Presence of coronary angioplasty implant and graft; Z95.810 Presence of automatic (implantable) cardiac defibrillator; Z90.49 Acquired absence of other specified parts of digestive tract; Z86.73 Personal history of transient ischemic attack (TIA), and cerebral infarction without residual deficits
CPT/HCPCS: 96365; 96366; G0463; J1250; J1642

== ENCOUNTER → 2019-12-23 | Outpatient (CLI) | payer OTHER ==
[~2019-12-23] VITALS: Ht 30.5 cm; Wt 88.9 kg
[2019-12-23] VITALS (10 sets, daily range): BP systolic 97–143; BP diastolic 44–72
[~2019-12-23] MED LIST changes: +CYANOCOBALAMIN (B-12) 1000 MCG/1 ML VIAL IM ONE; +CYANOCOBALAMIN (B-12) 1000 MCG/1 ML VIAL ONE
--- NOTE | 2019-12-23 07:30 | NUR ---
PT. TO [facility] CLINIC FOR DOBUTAMINE INFUSION PER MD ORDER. PT. STATES HE HAS BEEN FEELING GOOD OVER THE WEEKEND, WITH MINIMAL SOB WITH EXERTION. MD ORDERS RECEIVED AND CARRIED OUT. SEE NSG ASSESS.
--- NOTE | 2019-12-23 07:47 | NUR ---
MEDS: DOBUTAMINE DRIP STARTED AT 5 MCG/KG/MIN PER MD ORDER. VSS, WITH PROTOCOL VITALS IN PLACE. PT. WITH NO C/O.
--- NOTE | 2019-12-23 07:50 | NUR ---
MEDS: PT. MEDICATED WITH VIT.B12 1000MCG IM LFT DELT. PER MD ORDER.
--- NOTE | 2019-12-23 10:50 | NUR ---
Discharge Instructions See e-MAR for any mediations given with this visit. Patient education given on disease process. Patient verbalized understanding. Previous labs reviewed. Patient discharged in stable condition with after care instructions and follow up appointment. MEDICATIONS DOBUTAMINE DRIP [id number] VITAMIN B12 IM 1000MCG LEFT DELTOID HEPARIN IVP
== END | disposition home or self-care (01) ==
LOC: CHF HDHVI 07:54
PROVIDERS: ATTEND Internal Medicine Cardiovascular Disease
DX: I13.2 Hypertensive heart and chronic kidney disease with heart failure and with stage 5 chronic kidney disease, or end stage renal disease (principal); E11.22 Type 2 diabetes mellitus with diabetic chronic kidney disease; N18.6 End stage renal disease; I50.22 Chronic systolic (congestive) heart failure; I50.84 End stage heart failure; I25.10 Atherosclerotic heart disease of native coronary artery without angina pectoris; I42.8 Other cardiomyopathies; I48.11 Longstanding persistent atrial fibrillation; I27.21 Secondary pulmonary arterial hypertension; D64.9 Anemia, unspecified; F41.9 Anxiety disorder, unspecified; F31.9 Bipolar disorder, unspecified; K21.9 Gastro-esophageal reflux disease without esophagitis; J44.9 Chronic obstructive pulmonary disease, unspecified; E78.5 Hyperlipidemia, unspecified; E03.9 Hypothyroidism, unspecified; E78.00 Pure hypercholesterolemia, unspecified; E11.41 Type 2 diabetes mellitus with diabetic mononeuropathy; E11.21 Type 2 diabetes mellitus with diabetic nephropathy; E11.51 Type 2 diabetes mellitus with diabetic peripheral angiopathy without gangrene; E11.319 Type 2 diabetes mellitus with unspecified diabetic retinopathy without macular edema; M19.90 Unspecified osteoarthritis, unspecified site; Z85.030 Personal history of malignant carcinoid tumor of large intestine; Z85.060 Personal history of malignant carcinoid tumor of small intestine; Z85.810 Personal history of malignant neoplasm of tongue; Z85.46 Personal history of malignant neoplasm of prostate; Z95.1 Presence of aortocoronary bypass graft; Z95.810 Presence of automatic (implantable) cardiac defibrillator; Z95.5 Presence of coronary angioplasty implant and graft; Z86.73 Personal history of transient ischemic attack (TIA), and cerebral infarction without residual deficits; Z90.49 Acquired absence of other specified parts of digestive tract; Z79.01 Long term (current) use of anticoagulants
CPT/HCPCS: 96365; 96366; 96372; G0463; J1250; J1642; J3420

== ENCOUNTER → 2019-12-25 | Outpatient (CLI) | payer OTHER ==
[2019-12-25] VITALS (9 sets, daily range): BP systolic 98–126; BP diastolic 48–65
[~2019-12-25] MED LIST changes: -CYANOCOBALAMIN (B-12) 1000 MCG/1 ML VIAL IM ONE; -CYANOCOBALAMIN (B-12) 1000 MCG/1 ML VIAL ONE
--- NOTE | 2019-12-25 10:58 | NUR ---
[facility] Discharge Instructions See e-MAR for any mediations given with this visit. Patient education given on disease process. Patient verbalized understanding. Previous labs reviewed. Patient discharged in stable condition with after care instructions and follow up appointment. NOTE DOBUTAMINE [id number] ADMIN BY GISELA ALVAREZ. HEPARIN ADMIN BY GISELA ALVAREZ.
== END | disposition home or self-care (01) ==
LOC: CHF HDHVI 08:02
PROVIDERS: ATTEND Internal Medicine Cardiovascular Disease
DX: I13.2 Hypertensive heart and chronic kidney disease with heart failure and with stage 5 chronic kidney disease, or end stage renal disease (principal); E11.22 Type 2 diabetes mellitus with diabetic chronic kidney disease; N18.6 End stage renal disease; I50.22 Chronic systolic (congestive) heart failure; I50.84 End stage heart failure; I25.10 Atherosclerotic heart disease of native coronary artery without angina pectoris; I48.11 Longstanding persistent atrial fibrillation; I27.21 Secondary pulmonary arterial hypertension; I25.2 Old myocardial infarction; I42.8 Other cardiomyopathies; F41.9 Anxiety disorder, unspecified; F31.9 Bipolar disorder, unspecified; J44.9 Chronic obstructive pulmonary disease, unspecified; K21.9 Gastro-esophageal reflux disease without esophagitis; E78.5 Hyperlipidemia, unspecified; E03.9 Hypothyroidism, unspecified; E78.00 Pure hypercholesterolemia, unspecified; E11.41 Type 2 diabetes mellitus with diabetic mononeuropathy; E11.21 Type 2 diabetes mellitus with diabetic nephropathy; E11.51 Type 2 diabetes mellitus with diabetic peripheral angiopathy without gangrene; E11.319 Type 2 diabetes mellitus with unspecified diabetic retinopathy without macular edema; M19.90 Unspecified osteoarthritis, unspecified site; G89.29 Other chronic pain; Z79.899 Other long term (current) drug therapy; Z90.49 Acquired absence of other specified parts of digestive tract; Z87.891 Personal history of nicotine dependence; Z79.01 Long term (current) use of anticoagulants; Z85.030 Personal history of malignant carcinoid tumor of large intestine; Z85.060 Personal history of malignant carcinoid tumor of small intestine; Z85.810 Personal history of malignant neoplasm of tongue; Z85.46 Personal history of malignant neoplasm of prostate; Z95.1 Presence of aortocoronary bypass graft; Z95.810 Presence of automatic (implantable) cardiac defibrillator; Z95.5 Presence of coronary angioplasty implant and graft; Z86.73 Personal history of transient ischemic attack (TIA), and cerebral infarction without residual deficits
CPT/HCPCS: 96365; 96366; G0463; J1250; J1642

== ENCOUNTER → 2019-12-27 | Outpatient (CLI) | payer OTHER ==
[2019-12-27] VITALS (9 sets, daily range): BP systolic 109–137; BP diastolic 52–86
--- NOTE | 2019-12-27 07:45 | NUR ---
Ayah Cath Insertion [20] gauge Ayah Cath inserted BY GISELA ALVAREZ using sterile technique in the [RIGHT] upper chest with occlusive dressing over saucedo needle. Patient tolerated procedure well. Ordered labs drawn and sent. See e-MAR for medications given during this visit.
--- NOTE | 2019-12-27 11:05 | NUR ---
[facility] Discharge Instructions See e-MAR for any mediations given with this visit. Patient education given on disease process. Patient verbalized understanding. Previous labs reviewed. Patient discharged in stable condition with after care instructions and follow up appointment. [place] IV [id number] ADMIN BY GISELA ALVAREZ HEPARIN IVP ADMIN BY FRAN ALVAREZ
== END | disposition home or self-care (01) ==
LOC: CHF HDHVI 08:01
PROVIDERS: ATTEND Internal Medicine Cardiovascular Disease
DX: I13.2 Hypertensive heart and chronic kidney disease with heart failure and with stage 5 chronic kidney disease, or end stage renal disease (principal); N18.6 End stage renal disease; I50.22 Chronic systolic (congestive) heart failure; I50.84 End stage heart failure; I25.10 Atherosclerotic heart disease of native coronary artery without angina pectoris; I48.11 Longstanding persistent atrial fibrillation; I25.2 Old myocardial infarction; I42.8 Other cardiomyopathies; I27.21 Secondary pulmonary arterial hypertension; F41.9 Anxiety disorder, unspecified; F31.9 Bipolar disorder, unspecified; J44.9 Chronic obstructive pulmonary disease, unspecified; K21.9 Gastro-esophageal reflux disease without esophagitis; E78.5 Hyperlipidemia, unspecified; E03.9 Hypothyroidism, unspecified; E78.00 Pure hypercholesterolemia, unspecified; E11.22 Type 2 diabetes mellitus with diabetic chronic kidney disease; E11.41 Type 2 diabetes mellitus with diabetic mononeuropathy; E11.21 Type 2 diabetes mellitus with diabetic nephropathy; E11.51 Type 2 diabetes mellitus with diabetic peripheral angiopathy without gangrene; E11.319 Type 2 diabetes mellitus with unspecified diabetic retinopathy without macular edema; M19.90 Unspecified osteoarthritis, unspecified site; G89.29 Other chronic pain; Z79.899 Other long term (current) drug therapy; Z85.030 Personal history of malignant carcinoid tumor of large intestine; Z85.060 Personal history of malignant carcinoid tumor of small intestine; Z85.810 Personal history of malignant neoplasm of tongue; Z85.46 Personal history of malignant neoplasm of prostate; Z90.49 Acquired absence of other specified parts of digestive tract; Z79.01 Long term (current) use of anticoagulants; Z87.891 Personal history of nicotine dependence; Z95.1 Presence of aortocoronary bypass graft; Z95.810 Presence of automatic (implantable) cardiac defibrillator; Z95.5 Presence of coronary angioplasty implant and graft; Z86.73 Personal history of transient ischemic attack (TIA), and cerebral infarction without residual deficits
CPT/HCPCS: 96365; 96366; G0463; J1250; J1642

== ENCOUNTER → 2019-12-30 | Outpatient (CLI) | payer OTHER ==
[2019-12-30] VITALS (9 sets, daily range): BP systolic 98–139; BP diastolic 41–69
--- NOTE | 2019-12-30 07:40 | NUR ---
CHF PT ARRIVED AT THE CLINIC FOR WEEKLY THERAPY, A/O X 4 0 DISTRESS VSS
--- NOTE | 2019-12-30 10:55 | NUR ---
Discharge Instructions See e-MAR for any mediations given with this visit. Patient education given on disease process. Patient verbalized understanding. Previous labs reviewed. Patient discharged in stable condition with after care instructions and follow up appointment. MEDICATIONS DOBUTAMINE DRIP [id number] HEPARIN IVP
== END | disposition home or self-care (01) ==
LOC: CHF HDHVI 08:13
PROVIDERS: ATTEND Internal Medicine Cardiovascular Disease
DX: I13.2 Hypertensive heart and chronic kidney disease with heart failure and with stage 5 chronic kidney disease, or end stage renal disease (principal); I48.11 Longstanding persistent atrial fibrillation; N18.6 End stage renal disease; I25.10 Atherosclerotic heart disease of native coronary artery without angina pectoris; I50.22 Chronic systolic (congestive) heart failure; I50.84 End stage heart failure; I25.2 Old myocardial infarction; I42.8 Other cardiomyopathies; I27.21 Secondary pulmonary arterial hypertension; R53.83 Other fatigue; F31.9 Bipolar disorder, unspecified; J44.9 Chronic obstructive pulmonary disease, unspecified; K21.9 Gastro-esophageal reflux disease without esophagitis; E78.5 Hyperlipidemia, unspecified; E03.9 Hypothyroidism, unspecified; G89.29 Other chronic pain; E78.00 Pure hypercholesterolemia, unspecified; E11.22 Type 2 diabetes mellitus with diabetic chronic kidney disease; E11.41 Type 2 diabetes mellitus with diabetic mononeuropathy; E11.21 Type 2 diabetes mellitus with diabetic nephropathy; E11.51 Type 2 diabetes mellitus with diabetic peripheral angiopathy without gangrene; E11.319 Type 2 diabetes mellitus with unspecified diabetic retinopathy without macular edema; Z90.49 Acquired absence of other specified parts of digestive tract; Z79.899 Other long term (current) drug therapy; Z85.030 Personal history of malignant carcinoid tumor of large intestine; Z85.060 Personal history of malignant carcinoid tumor of small intestine; Z85.810 Personal history of malignant neoplasm of tongue; Z79.01 Long term (current) use of anticoagulants; Z85.46 Personal history of malignant neoplasm of prostate; Z95.1 Presence of aortocoronary bypass graft; Z95.810 Presence of automatic (implantable) cardiac defibrillator; Z95.5 Presence of coronary angioplasty implant and graft; Z86.73 Personal history of transient ischemic attack (TIA), and cerebral infarction without residual deficits
CPT/HCPCS: 96365; 96366; G0463; J1250; J1642

== ENCOUNTER → 2020-01-01 | Outpatient (CLI) | payer OTHER ==
[2020-01-01] VITALS (9 sets, daily range): BP systolic 110–133; BP diastolic 53–71
--- NOTE | 2020-01-01 07:30 | NUR ---
CHF PT ARRIVED AT THE CLINIC FOR TREATMENT AND EVAL. A.O X 4 0 DISTRESS VSS
--- NOTE | 2020-01-01 10:52 | NUR ---
Discharge Instructions See e-MAR for any mediations given with this visit. Patient education given on disease process. Patient verbalized understanding. Previous labs reviewed. Patient discharged in stable condition with after care instructions and follow up appointment. medications DOBUTAMINE DRIP [id number] HEPARIN IVP X 1
== END | disposition home or self-care (01) ==
LOC: CHF HDHVI 07:59
PROVIDERS: ATTEND Internal Medicine Cardiovascular Disease
DX: I13.2 Hypertensive heart and chronic kidney disease with heart failure and with stage 5 chronic kidney disease, or end stage renal disease (principal); E11.22 Type 2 diabetes mellitus with diabetic chronic kidney disease; N18.6 End stage renal disease; I50.22 Chronic systolic (congestive) heart failure; I50.84 End stage heart failure; I25.10 Atherosclerotic heart disease of native coronary artery without angina pectoris; I42.8 Other cardiomyopathies; I27.21 Secondary pulmonary arterial hypertension; E78.5 Hyperlipidemia, unspecified; E03.9 Hypothyroidism, unspecified; F31.9 Bipolar disorder, unspecified; J44.9 Chronic obstructive pulmonary disease, unspecified; K21.9 Gastro-esophageal reflux disease without esophagitis; G89.29 Other chronic pain; E78.00 Pure hypercholesterolemia, unspecified; E11.41 Type 2 diabetes mellitus with diabetic mononeuropathy; E11.21 Type 2 diabetes mellitus with diabetic nephropathy; E11.319 Type 2 diabetes mellitus with unspecified diabetic retinopathy without macular edema; F41.9 Anxiety disorder, unspecified; M19.90 Unspecified osteoarthritis, unspecified site; I48.91 Unspecified atrial fibrillation; Z85.030 Personal history of malignant carcinoid tumor of large intestine; Z85.060 Personal history of malignant carcinoid tumor of small intestine; Z85.810 Personal history of malignant neoplasm of tongue; Z85.46 Personal history of malignant neoplasm of prostate; Z95.1 Presence of aortocoronary bypass graft; Z95.810 Presence of automatic (implantable) cardiac defibrillator; Z86.73 Personal history of transient ischemic attack (TIA), and cerebral infarction without residual deficits; Z79.899 Other long term (current) drug therapy; Z90.49 Acquired absence of other specified parts of digestive tract; Z79.01 Long term (current) use of anticoagulants; Z87.891 Personal history of nicotine dependence
CPT/HCPCS: 96365; 96366; G0463; J1250; J1642

== ENCOUNTER → 2020-01-03 | Outpatient (CLI) | payer OTHER ==
[2020-01-03] VITALS (9 sets, daily range): BP systolic 97–128; BP diastolic 49–66
--- NOTE | 2020-01-03 11:22 | NUR ---
[facility] Discharge Instructions See e-MAR for any mediations given with this visit. Patient education given on disease process. Patient verbalized understanding. Previous labs reviewed. Patient discharged in stable condition with after care instructions and follow up appointment. NOTE DOBUTAMINE [id number] ADMIN BY MACY ALVAREZ HEPARIN ADMIN BY MACY ALVAREZ
[2020-01-03 12:12] LABS: Basophils # (auto) 0 uL; Basophils % (auto) 0.5 % (0.0-2.0); Eosinophils # (auto) 0.1 uL; Eosinophils % (auto) 2.4 % (0.0-7.0); Hematocrit 41.1 % (41.0-53.0); Hemoglobin 13.8 g/dL (13.5-17.5); Lymphocytes # (auto) 1.1 uL; Lymphocytes % (auto) 32.6 % (10.0-50.0); Mean Corpuscular Hgb Conc. 33.7 g/dL (32.0-36.0); Mean Corpuscular Volume 97.9 fL (80.0-100.0); Monocytes # (auto) 0.6 uL; Monocytes % (auto) 16.7 % (0.0-12.0); Neutrophils # (auto) 1.6 uL; Neutrophils % (auto) 47.8 % (37.0-80.0); Nucleated Red Blood Cells % 0.1 %; Platelet Count (auto) 156 10^3/uL (140-450); Red Cell Distribution Width 12.6 % (11.8-14.3); White Blood Cell 3.3 10^3/uL (4.4-10.8)
[2020-01-03 12:36] LABS: Calcium 8.7 mg/dL (8.5-10.1); Magnesium 2.6 mg/dL (1.6-2.6); Potassium 3.8 mmol/L (3.5-5.1)
== END | disposition home or self-care (01) ==
LOC: CHF HDHVI 08:00
PROVIDERS: ATTEND Internal Medicine Cardiovascular Disease
DX: I13.2 Hypertensive heart and chronic kidney disease with heart failure and with stage 5 chronic kidney disease, or end stage renal disease (principal); N18.6 End stage renal disease; I50.22 Chronic systolic (congestive) heart failure; I50.84 End stage heart failure; I25.10 Atherosclerotic heart disease of native coronary artery without angina pectoris; I48.11 Longstanding persistent atrial fibrillation; I42.8 Other cardiomyopathies; I25.2 Old myocardial infarction; R53.83 Other fatigue; F41.9 Anxiety disorder, unspecified; F31.9 Bipolar disorder, unspecified; J44.9 Chronic obstructive pulmonary disease, unspecified; K21.9 Gastro-esophageal reflux disease without esophagitis; E78.5 Hyperlipidemia, unspecified; E03.9 Hypothyroidism, unspecified; G89.29 Other chronic pain; E78.00 Pure hypercholesterolemia, unspecified; E11.22 Type 2 diabetes mellitus with diabetic chronic kidney disease; E11.41 Type 2 diabetes mellitus with diabetic mononeuropathy; E11.51 Type 2 diabetes mellitus with diabetic peripheral angiopathy without gangrene; E11.21 Type 2 diabetes mellitus with diabetic nephropathy; E11.319 Type 2 diabetes mellitus with unspecified diabetic retinopathy without macular edema; M19.90 Unspecified osteoarthritis, unspecified site; Z95.810 Presence of automatic (implantable) cardiac defibrillator; Z79.899 Other long term (current) drug therapy; Z85.030 Personal history of malignant carcinoid tumor of large intestine; Z79.01 Long term (current) use of anticoagulants; Z85.060 Personal history of malignant carcinoid tumor of small intestine; Z85.810 Personal history of malignant neoplasm of tongue; Z85.46 Personal history of malignant neoplasm of prostate; Z90.49 Acquired absence of other specified parts of digestive tract; Z95.1 Presence of aortocoronary bypass graft; Z95.5 Presence of coronary angioplasty implant and graft; Z86.73 Personal history of transient ischemic attack (TIA), and cerebral infarction without residual deficits
CPT/HCPCS: 36415; 80048; 83735; 83880; 85025; 96365; 96366; G0463; J1250; J1642

== ENCOUNTER → 2020-01-06 | Outpatient (CLI) | payer OTHER ==
[~2020-01-06] VITALS: Ht 30.5 cm; Wt 88.8 kg
[2020-01-06] VITALS (9 sets, daily range): BP systolic 103–124; BP diastolic 52–71
--- NOTE | 2020-01-06 08:00 | NUR ---
Ayah Cath Insertion 20 gauge Ayah Cath inserted by Roscoe ALVAREZ using sterile technique in the [facility] upper chest with occlusive dressing over saucedo needle. Patient tolerated procedure well. Ordered labs drawn and sent. See e-MAR for medications given during this visit.
--- NOTE | 2020-01-06 11:15 | NUR ---
[facility] Discharge Instructions See e-MAR for any mediations given with this visit. Patient education given on disease process. Patient verbalized understanding. Previous labs reviewed. Patient discharged in stable condition with after care instructions and follow up appointment. NOTE DOBUTAMINE [id number] ADMIN BY GISELA ALVAREZ HEPARIN ADMIN BY MACY ALVAREZ
== END | disposition home or self-care (01) ==
LOC: CHF HDHVI 07:54
PROVIDERS: ATTEND Internal Medicine Cardiovascular Disease
DX: I13.2 Hypertensive heart and chronic kidney disease with heart failure and with stage 5 chronic kidney disease, or end stage renal disease (principal); E11.22 Type 2 diabetes mellitus with diabetic chronic kidney disease; N18.6 End stage renal disease; I50.22 Chronic systolic (congestive) heart failure; I50.84 End stage heart failure; I25.10 Atherosclerotic heart disease of native coronary artery without angina pectoris; I25.2 Old myocardial infarction; I27.21 Secondary pulmonary arterial hypertension; I48.11 Longstanding persistent atrial fibrillation; I42.8 Other cardiomyopathies; R53.83 Other fatigue; F31.9 Bipolar disorder, unspecified; J44.9 Chronic obstructive pulmonary disease, unspecified; K21.9 Gastro-esophageal reflux disease without esophagitis; E78.5 Hyperlipidemia, unspecified; E03.9 Hypothyroidism, unspecified; G89.29 Other chronic pain; R06.00 Dyspnea, unspecified; E78.00 Pure hypercholesterolemia, unspecified; E11.21 Type 2 diabetes mellitus with diabetic nephropathy; E11.41 Type 2 diabetes mellitus with diabetic mononeuropathy; E11.51 Type 2 diabetes mellitus with diabetic peripheral angiopathy without gangrene; M19.90 Unspecified osteoarthritis, unspecified site; Z79.899 Other long term (current) drug therapy; Z85.030 Personal history of malignant carcinoid tumor of large intestine; Z85.060 Personal history of malignant carcinoid tumor of small intestine; Z85.810 Personal history of malignant neoplasm of tongue; Z85.46 Personal history of malignant neoplasm of prostate; Z87.891 Personal history of nicotine dependence; Z95.1 Presence of aortocoronary bypass graft; Z95.5 Presence of coronary angioplasty implant and graft; Z86.73 Personal history of transient ischemic attack (TIA), and cerebral infarction without residual deficits; Z79.01 Long term (current) use of anticoagulants
CPT/HCPCS: 93701; 96365; 96366; G0463; J1250; J1642

== ENCOUNTER → 2020-01-08 | Outpatient (CLI) | payer OTHER ==
[2020-01-08] VITALS (9 sets, daily range): BP systolic 98–132; BP diastolic 54–83
--- NOTE | 2020-01-08 08:00 | NUR ---
Ayah Cath Insertion 20 gauge Ayah Cath inserted BY MACY ALVAREZ using sterile technique in the R upper chest with occlusive dressing over saucedo needle. Patient tolerated procedure well. Ordered labs drawn and sent. See e-MAR for medications given during this visit.
--- NOTE | 2020-01-08 11:23 | NUR ---
Discharge Instructions See e-MAR for any mediations given with this visit. Patient education given on disease process. Patient verbalized understanding. Previous labs reviewed. Patient discharged in stable condition with after care instructions and follow up appointment. NOTE DOBUTAMINE [id number] ADMIN BY MACY ALVAREZ HEPARIN IVP ADMIN BY JULIETA ALVAREZ
[2020-01-08 12:27] LABS: Albumin 3.7 g/dL (3.4-5.0)
[2020-01-08 12:31] LABS: Bilirubin, Direct 0.2 mg/dL (0-0.2); Bilirubin, Total 0.7 mg/dL (0.2-1.0); Total Protein 7.2 g/dL (6.4-8.2)
[2020-01-08 12:46] LABS: Prostate Specific Antigen 5.21 ng/mL (0.0-4.0)
== END | disposition home or self-care (01) ==
LOC: CHF HDHVI 07:58
PROVIDERS: ATTEND Internal Medicine Cardiovascular Disease
DX: I13.2 Hypertensive heart and chronic kidney disease with heart failure and with stage 5 chronic kidney disease, or end stage renal disease (principal); E11.22 Type 2 diabetes mellitus with diabetic chronic kidney disease; N18.6 End stage renal disease; I50.82 Biventricular heart failure; I50.22 Chronic systolic (congestive) heart failure; I25.10 Atherosclerotic heart disease of native coronary artery without angina pectoris; I48.91 Unspecified atrial fibrillation; I42.8 Other cardiomyopathies; I48.11 Longstanding persistent atrial fibrillation; E03.9 Hypothyroidism, unspecified; K90.9 Intestinal malabsorption, unspecified; C61 Malignant neoplasm of prostate; N39.0 Urinary tract infection, site not specified; D51.9 Vitamin B12 deficiency anemia, unspecified; R53.83 Other fatigue; F41.9 Anxiety disorder, unspecified; F31.9 Bipolar disorder, unspecified; J44.9 Chronic obstructive pulmonary disease, unspecified; K21.9 Gastro-esophageal reflux disease without esophagitis; E78.5 Hyperlipidemia, unspecified; E78.00 Pure hypercholesterolemia, unspecified; E11.21 Type 2 diabetes mellitus with diabetic nephropathy; E11.319 Type 2 diabetes mellitus with unspecified diabetic retinopathy without macular edema; E11.41 Type 2 diabetes mellitus with diabetic mononeuropathy; E11.51 Type 2 diabetes mellitus with diabetic peripheral angiopathy without gangrene; M19.90 Unspecified osteoarthritis, unspecified site; G89.29 Other chronic pain; Z79.01 Long term (current) use of anticoagulants; Z85.030 Personal history of malignant carcinoid tumor of large intestine; Z85.060 Personal history of malignant carcinoid tumor of small intestine; Z90.49 Acquired absence of other specified parts of digestive tract; Z85.810 Personal history of malignant neoplasm of tongue; Z85.46 Personal history of malignant neoplasm of prostate; Z87.891 Personal history of nicotine dependence; Z79.899 Other long term (current) drug therapy; Z86.73 Personal history of transient ischemic attack (TIA), and cerebral infarction without residual deficits; Z95.1 Presence of aortocoronary bypass graft; Z95.5 Presence of coronary angioplasty implant and graft
CPT/HCPCS: 36415; 80061; 80076; 82306; 82607; 83036; 84153; 84154; 84403; 84443; 96365; 96366; G0463; J1250; J1642

== ENCOUNTER → 2020-01-10 | Outpatient (CLI) | payer OTHER ==
[2020-01-10] VITALS (9 sets, daily range): BP systolic 107–123; BP diastolic 51–68
[~2020-01-10] VITALS: Ht 30.5 cm; Wt 88.2 kg
--- NOTE | 2020-01-10 11:09 | NUR ---
Ayah Cath Removal Quinones needle D/C'd by Cheyanne ALVAREZ after Heparin flush per protocol. See e-MAR for medications given during this visit. Sterile occlusive dressing to site. Patient tolerated procedure well. Site benign post infusion.
--- NOTE | 2020-01-10 11:13 | NUR ---
[facility] Discharge Instructions See e-MAR for any mediations given with this visit. Patient education given on disease process. Patient verbalized understanding. Previous labs reviewed. Patient discharged in stable condition with after care instructions and follow up appointment. NOTE DOBUTAMINE [id number] ADMIN BY MACY ALVAREZ HEPARIN ADMIN BY JULIETA ALVAREZ
== END | disposition home or self-care (01) ==
LOC: CHF HDHVI 08:25
PROVIDERS: ATTEND Internal Medicine Cardiovascular Disease
DX: I13.2 Hypertensive heart and chronic kidney disease with heart failure and with stage 5 chronic kidney disease, or end stage renal disease (principal); E11.22 Type 2 diabetes mellitus with diabetic chronic kidney disease; N18.6 End stage renal disease; I50.22 Chronic systolic (congestive) heart failure; I25.10 Atherosclerotic heart disease of native coronary artery without angina pectoris; I48.11 Longstanding persistent atrial fibrillation; I42.8 Other cardiomyopathies; I27.21 Secondary pulmonary arterial hypertension; R53.83 Other fatigue; F41.9 Anxiety disorder, unspecified; J44.9 Chronic obstructive pulmonary disease, unspecified; F31.9 Bipolar disorder, unspecified; K21.9 Gastro-esophageal reflux disease without esophagitis; E78.5 Hyperlipidemia, unspecified; E03.9 Hypothyroidism, unspecified; G89.29 Other chronic pain; E78.00 Pure hypercholesterolemia, unspecified; E11.41 Type 2 diabetes mellitus with diabetic mononeuropathy; E11.21 Type 2 diabetes mellitus with diabetic nephropathy; E11.51 Type 2 diabetes mellitus with diabetic peripheral angiopathy without gangrene; E11.319 Type 2 diabetes mellitus with unspecified diabetic retinopathy without macular edema; M19.90 Unspecified osteoarthritis, unspecified site; Z79.899 Other long term (current) drug therapy; Z85.030 Personal history of malignant carcinoid tumor of large intestine; Z85.060 Personal history of malignant carcinoid tumor of small intestine; Z85.810 Personal history of malignant neoplasm of tongue; Z85.46 Personal history of malignant neoplasm of prostate; Z79.01 Long term (current) use of anticoagulants; Z90.49 Acquired absence of other specified parts of digestive tract; Z87.891 Personal history of nicotine dependence; Z95.1 Presence of aortocoronary bypass graft; Z95.5 Presence of coronary angioplasty implant and graft; Z86.73 Personal history of transient ischemic attack (TIA), and cerebral infarction without residual deficits
CPT/HCPCS: 96365; 96366; G0463; J1250; J1642

== ENCOUNTER → 2020-01-13 | Outpatient (CLI) | payer OTHER ==
[2020-01-13] VITALS (8 sets, daily range): BP systolic 108–128; BP diastolic 56–69
--- NOTE | 2020-01-13 07:40 | NUR ---
Ayah Cath Insertion 20 gauge Ayah Cath inserted using sterile technique in the R upper chest with occlusive dressing over saucedo needle. Patient tolerated procedure well. See e-MAR for medications given during this visit.
--- NOTE | 2020-01-13 11:20 | NUR ---
Ayah Cath Removal Quinones needle D/C'd after Heparin flush per protocol. See e-MAR for medications given during this visit. Sterile occlusive dressing to site. Patient tolerated procedure well. Site benign post infusion. NOTE REMOVED BY MACY ALVAREZ
--- NOTE | 2020-01-13 11:25 | NUR ---
Discharge Instructions See e-MAR for any mediations given with this visit. Patient education given on disease process. Patient verbalized understanding. Previous labs reviewed. Patient discharged in stable condition with after care instructions and follow up appointment. NOTES DOBUTAMINE DRIP [id number] HEPARIN IV PUSH
== END | disposition home or self-care (01) ==
LOC: CHF HDHVI 07:58
PROVIDERS: ATTEND Internal Medicine Cardiovascular Disease
DX: I13.2 Hypertensive heart and chronic kidney disease with heart failure and with stage 5 chronic kidney disease, or end stage renal disease (principal); I50.22 Chronic systolic (congestive) heart failure; N18.6 End stage renal disease; I25.10 Atherosclerotic heart disease of native coronary artery without angina pectoris; I48.11 Longstanding persistent atrial fibrillation; I27.21 Secondary pulmonary arterial hypertension; I42.8 Other cardiomyopathies; I25.2 Old myocardial infarction; R53.83 Other fatigue; F41.9 Anxiety disorder, unspecified; F31.9 Bipolar disorder, unspecified; J44.9 Chronic obstructive pulmonary disease, unspecified; I50.84 End stage heart failure; K21.9 Gastro-esophageal reflux disease without esophagitis; E03.9 Hypothyroidism, unspecified; G89.29 Other chronic pain; E78.00 Pure hypercholesterolemia, unspecified; E11.22 Type 2 diabetes mellitus with diabetic chronic kidney disease; E11.21 Type 2 diabetes mellitus with diabetic nephropathy; E11.41 Type 2 diabetes mellitus with diabetic mononeuropathy; E11.51 Type 2 diabetes mellitus with diabetic peripheral angiopathy without gangrene; Z79.899 Other long term (current) drug therapy; Z85.030 Personal history of malignant carcinoid tumor of large intestine; Z85.060 Personal history of malignant carcinoid tumor of small intestine; Z85.810 Personal history of malignant neoplasm of tongue; Z85.46 Personal history of malignant neoplasm of prostate; Z95.1 Presence of aortocoronary bypass graft; Z95.810 Presence of automatic (implantable) cardiac defibrillator; Z95.5 Presence of coronary angioplasty implant and graft; Z86.73 Personal history of transient ischemic attack (TIA), and cerebral infarction without residual deficits; Z79.01 Long term (current) use of anticoagulants; Z90.49 Acquired absence of other specified parts of digestive tract
CPT/HCPCS: 96365; 96366; G0463; J1250; J1642

== ENCOUNTER → 2020-01-15 | Outpatient (CLI) | payer OTHER ==
[2020-01-15] VITALS (9 sets, daily range): BP systolic 104–118; BP diastolic 49–62
--- NOTE | 2020-01-15 11:00 | NUR ---
Ayah Cath Removal Quinones needle D/C'd by Saritha ALVAREZ after Heparin flush per protocol. See e-MAR for medications given during this visit. Sterile occlusive dressing to site. Patient tolerated procedure well. Site benign post infusion.
--- NOTE | 2020-01-15 11:05 | NUR ---
[facility] Discharge Instructions See e-MAR for any mediations given with this visit. Patient education given on disease process. Patient verbalized understanding. Previous labs reviewed. Patient discharged in stable condition with after care instructions and follow up appointment MONDAY. NOTE DOBUTAMINE [id number] ADMIN BY GISELA ALVAREZ HEPARIN IVP ADMIN BY TACOS ALVAREZ
== END | disposition home or self-care (01) ==
LOC: CHF HDHVI 08:11
PROVIDERS: ATTEND Internal Medicine Cardiovascular Disease
DX: I13.2 Hypertensive heart and chronic kidney disease with heart failure and with stage 5 chronic kidney disease, or end stage renal disease (principal); E11.22 Type 2 diabetes mellitus with diabetic chronic kidney disease; N18.6 End stage renal disease; I50.22 Chronic systolic (congestive) heart failure; I48.11 Longstanding persistent atrial fibrillation; I25.10 Atherosclerotic heart disease of native coronary artery without angina pectoris; I25.2 Old myocardial infarction; I42.8 Other cardiomyopathies; R53.83 Other fatigue; F41.9 Anxiety disorder, unspecified; F31.9 Bipolar disorder, unspecified; J44.9 Chronic obstructive pulmonary disease, unspecified; K21.9 Gastro-esophageal reflux disease without esophagitis; E78.5 Hyperlipidemia, unspecified; E03.9 Hypothyroidism, unspecified; G89.29 Other chronic pain; M19.90 Unspecified osteoarthritis, unspecified site; E11.319 Type 2 diabetes mellitus with unspecified diabetic retinopathy without macular edema; E11.41 Type 2 diabetes mellitus with diabetic mononeuropathy; E11.21 Type 2 diabetes mellitus with diabetic nephropathy; E11.51 Type 2 diabetes mellitus with diabetic peripheral angiopathy without gangrene; Z85.030 Personal history of malignant carcinoid tumor of large intestine; Z85.060 Personal history of malignant carcinoid tumor of small intestine; Z85.810 Personal history of malignant neoplasm of tongue; Z85.46 Personal history of malignant neoplasm of prostate; Z87.891 Personal history of nicotine dependence; Z90.49 Acquired absence of other specified parts of digestive tract; Z95.1 Presence of aortocoronary bypass graft; Z95.5 Presence of coronary angioplasty implant and graft; Z95.810 Presence of automatic (implantable) cardiac defibrillator; Z86.73 Personal history of transient ischemic attack (TIA), and cerebral infarction without residual deficits; Z79.899 Other long term (current) drug therapy
CPT/HCPCS: 96365; 96366; G0463; J1250; J1642

== ENCOUNTER → 2020-01-17 | Outpatient (CLI) | payer OTHER ==
[2020-01-17] VITALS (8 sets, daily range): BP systolic 100–125; BP diastolic 51–62
[~2020-01-17] VITALS: Ht 1 cm; Wt 0.5 kg
--- NOTE | 2020-01-17 07:30 | NUR ---
CHF PT ARRIVED TO THE CHF CLINIC FOR WEEKLY DOBUTAMINE DRIP TREATMENT AND LABS. A/O X4 VSS. SANTANA HIGGINS RN
--- NOTE | 2020-01-17 07:45 | NUR ---
Ayah Cath Insertion 20 gauge Ayah Cath inserted using sterile technique in the R upper chest with occlusive dressing over saucedo needle. Patient tolerated procedure well. Ordered labs drawn and sent. See e-MAR for medications given during this visit. NOTE INSERTED BY GISELA ALVAREZ
--- NOTE | 2020-01-17 07:54 | NUR ---
STARTED DOBUTAMINE DRIP AT 5 MCG/KG/MIN NON TITRATABLE
--- NOTE | 2020-01-17 09:00 | NUR ---
PT TOLERATING DOBUTAMINE THERAPY. VSS
--- NOTE | 2020-01-17 10:55 | NUR ---
Ayah Cath Removal Quinones needle D/C'd after Heparin flush per protocol. See e-MAR for medications given during this visit. Sterile occlusive dressing to site. Patient tolerated procedure well. Site benign post infusion. REMOVED BY GISELA ALVAREZ
--- NOTE | 2020-01-17 11:00 | NUR ---
Discharge Instructions See e-MAR for any mediations given with this visit. Patient education given on disease process. Patient verbalized understanding. Previous labs reviewed. Patient discharged in stable condition with after care instructions and follow up appointment. NOTE DOBUTAMINE DRIP [id number] HEPARIN FLUSH
[2020-01-17 12:18] LABS: Albumin 3.7 g/dL (3.4-5.0); Calcium 8.7 mg/dL (8.5-10.1); Potassium 4.1 mmol/L (3.5-5.1)
[2020-01-17 12:24] LABS: BUN/Creatinine Ratio 12.6; Bilirubin, Total 0.7 mg/dL (0.2-1.0); Magnesium 2.6 mg/dL (1.6-2.6); Total Protein 7.1 g/dL (6.4-8.2)
== END | disposition home or self-care (01) ==
LOC: CHF HDHVI 07:56
PROVIDERS: ATTEND Internal Medicine Cardiovascular Disease
DX: I13.2 Hypertensive heart and chronic kidney disease with heart failure and with stage 5 chronic kidney disease, or end stage renal disease (principal); E11.22 Type 2 diabetes mellitus with diabetic chronic kidney disease; N18.6 End stage renal disease; I50.22 Chronic systolic (congestive) heart failure; R53.83 Other fatigue; I48.11 Longstanding persistent atrial fibrillation; I25.10 Atherosclerotic heart disease of native coronary artery without angina pectoris; I27.21 Secondary pulmonary arterial hypertension; I25.2 Old myocardial infarction; I42.8 Other cardiomyopathies; F41.9 Anxiety disorder, unspecified; F31.9 Bipolar disorder, unspecified; J44.9 Chronic obstructive pulmonary disease, unspecified; K21.9 Gastro-esophageal reflux disease without esophagitis; E78.5 Hyperlipidemia, unspecified; E03.9 Hypothyroidism, unspecified; E11.41 Type 2 diabetes mellitus with diabetic mononeuropathy; M19.90 Unspecified osteoarthritis, unspecified site; E78.00 Pure hypercholesterolemia, unspecified; Z79.01 Long term (current) use of anticoagulants; Z85.030 Personal history of malignant carcinoid tumor of large intestine; Z85.060 Personal history of malignant carcinoid tumor of small intestine; Z90.49 Acquired absence of other specified parts of digestive tract; Z79.899 Other long term (current) drug therapy; Z86.73 Personal history of transient ischemic attack (TIA), and cerebral infarction without residual deficits; Z95.5 Presence of coronary angioplasty implant and graft; Z85.810 Personal history of malignant neoplasm of tongue; Z85.46 Personal history of malignant neoplasm of prostate; Z87.891 Personal history of nicotine dependence; Z95.1 Presence of aortocoronary bypass graft; Z95.810 Presence of automatic (implantable) cardiac defibrillator
CPT/HCPCS: 36415; 80053; 83735; 83880; 96365; 96366; G0463; J1250; J1642

== ENCOUNTER → 2020-01-20 | Outpatient (CLI) | payer OTHER ==
[2020-01-20] VITALS (9 sets, daily range): BP systolic 97–113; BP diastolic 44–64
[~2020-01-20] MED LIST changes: +CYANOCOBALAMIN (B-12) 1000 MCG/1 ML VIAL IM ONE; +CYANOCOBALAMIN (B-12) 1000 MCG/1 ML VIAL ONE; +DOBUTamine 1000MCG/ML 250 ML IV SCH
--- NOTE | 2020-01-20 07:30 | NUR ---
CHF PT ARRIVED TO CHF CLINIC FOR WEEKLY DOBUTAMINE INFUSION. A/O X4, VVS.
--- NOTE | 2020-01-20 07:40 | NUR ---
Ayah Cath Insertion 20 gauge Ayah Cath inserted using sterile technique in the R upper chest with occlusive dressing over saucedo needle. Patient tolerated procedure well. See e-MAR for medications given during this visit. NOTE INSERTED BY GISELA ALVAREZ
--- NOTE | 2020-01-20 07:48 | NUR ---
DOBUTAMINE DRIP STARTED AT 5MCG/KG/MIN NON TITRATABLE. VVS. WILL CONTINUE TO MONITOR
--- NOTE | 2020-01-20 08:48 | NUR ---
PT TOLERATING DOBUTAMINE DRIP INFUSION SITE BENIGN, VSS, WILL CONTINUE TO MONITOR
--- NOTE | 2020-01-20 10:49 | NUR ---
Ayah Cath Removal Quinones needle D/C'd after Heparin flush per protocol. See e-MAR for medications given during this visit. Sterile occlusive dressing to site. Patient tolerated procedure well. Site benign post infusion. REMOVED BY VÍCTOR ALVAREZ
--- NOTE | 2020-01-20 10:55 | NUR ---
Discharge Instructions See e-MAR for any mediations given with this visit. Patient education given on disease process. Patient verbalized understanding. Previous labs reviewed. Patient discharged in stable condition with after care instructions and follow up appointment. DOBUTAMINE DRIP [id number] BY GISELA ALVAREZ VIT B12 INJ L DELTOID JULIETA ALVAREZ HEPARIN FLUSH BY VÍCTOR ALVAREZ
== END | disposition home or self-care (01) ==
LOC: CHF HDHVI 08:05
PROVIDERS: ATTEND Internal Medicine Cardiovascular Disease
DX: I13.2 Hypertensive heart and chronic kidney disease with heart failure and with stage 5 chronic kidney disease, or end stage renal disease (principal); E11.22 Type 2 diabetes mellitus with diabetic chronic kidney disease; N18.6 End stage renal disease; I50.22 Chronic systolic (congestive) heart failure; R53.83 Other fatigue; I25.10 Atherosclerotic heart disease of native coronary artery without angina pectoris; I27.21 Secondary pulmonary arterial hypertension; I48.11 Longstanding persistent atrial fibrillation; I25.2 Old myocardial infarction; I42.8 Other cardiomyopathies; F41.9 Anxiety disorder, unspecified; F31.9 Bipolar disorder, unspecified; J44.9 Chronic obstructive pulmonary disease, unspecified; K21.9 Gastro-esophageal reflux disease without esophagitis; E78.5 Hyperlipidemia, unspecified; G89.29 Other chronic pain; E03.9 Hypothyroidism, unspecified; E78.00 Pure hypercholesterolemia, unspecified; E11.41 Type 2 diabetes mellitus with diabetic mononeuropathy; E11.319 Type 2 diabetes mellitus with unspecified diabetic retinopathy without macular edema; E11.51 Type 2 diabetes mellitus with diabetic peripheral angiopathy without gangrene; Z79.899 Other long term (current) drug therapy; Z85.030 Personal history of malignant carcinoid tumor of large intestine; Z85.060 Personal history of malignant carcinoid tumor of small intestine; Z85.810 Personal history of malignant neoplasm of tongue; Z85.46 Personal history of malignant neoplasm of prostate; Z87.891 Personal history of nicotine dependence; Z95.1 Presence of aortocoronary bypass graft; Z90.49 Acquired absence of other specified parts of digestive tract; Z79.01 Long term (current) use of anticoagulants; Z95.5 Presence of coronary angioplasty implant and graft; Z95.810 Presence of automatic (implantable) cardiac defibrillator; Z86.73 Personal history of transient ischemic attack (TIA), and cerebral infarction without residual deficits
CPT/HCPCS: 96365; 96366; 96372; G0463; J1250; J1642; J3420

== ENCOUNTER → 2020-01-22 | Outpatient (CLI) | payer OTHER ==
[2020-01-22] VITALS (9 sets, daily range): BP systolic 99–126; BP diastolic 46–66
[~2020-01-22] MED LIST changes: -CYANOCOBALAMIN (B-12) 1000 MCG/1 ML VIAL IM ONE; -CYANOCOBALAMIN (B-12) 1000 MCG/1 ML VIAL ONE; -DOBUTamine 1000MCG/ML 250 ML IV SCH
== END | disposition home or self-care (01) ==
LOC: CHF HDHVI 07:59
PROVIDERS: ATTEND Internal Medicine Cardiovascular Disease
DX: I13.2 Hypertensive heart and chronic kidney disease with heart failure and with stage 5 chronic kidney disease, or end stage renal disease (principal); E11.22 Type 2 diabetes mellitus with diabetic chronic kidney disease; N18.6 End stage renal disease; I50.22 Chronic systolic (congestive) heart failure; I50.84 End stage heart failure; I25.10 Atherosclerotic heart disease of native coronary artery without angina pectoris; I48.11 Longstanding persistent atrial fibrillation; I25.2 Old myocardial infarction; I27.21 Secondary pulmonary arterial hypertension; F31.9 Bipolar disorder, unspecified; F41.9 Anxiety disorder, unspecified; J44.9 Chronic obstructive pulmonary disease, unspecified; K21.9 Gastro-esophageal reflux disease without esophagitis; E78.5 Hyperlipidemia, unspecified; E03.9 Hypothyroidism, unspecified; R53.83 Other fatigue; G89.29 Other chronic pain; E78.00 Pure hypercholesterolemia, unspecified; E11.41 Type 2 diabetes mellitus with diabetic mononeuropathy; E11.319 Type 2 diabetes mellitus with unspecified diabetic retinopathy without macular edema; M19.90 Unspecified osteoarthritis, unspecified site; E11.21 Type 2 diabetes mellitus with diabetic nephropathy; Z85.030 Personal history of malignant carcinoid tumor of large intestine; Z79.899 Other long term (current) drug therapy; Z85.060 Personal history of malignant carcinoid tumor of small intestine; Z85.810 Personal history of malignant neoplasm of tongue; Z85.46 Personal history of malignant neoplasm of prostate; Z90.49 Acquired absence of other specified parts of digestive tract; Z87.891 Personal history of nicotine dependence; Z95.1 Presence of aortocoronary bypass graft; Z95.810 Presence of automatic (implantable) cardiac defibrillator; Z95.5 Presence of coronary angioplasty implant and graft; Z79.01 Long term (current) use of anticoagulants; Z86.73 Personal history of transient ischemic attack (TIA), and cerebral infarction without residual deficits
CPT/HCPCS: 96365; 96366; G0463; J1250; J1642

== ENCOUNTER → 2020-01-24 | Outpatient (CLI) | payer OTHER ==
[~2020-01-24] VITALS: Ht 30.5 cm; Wt 88.9 kg
[2020-01-24] VITALS (9 sets, daily range): BP systolic 93–116; BP diastolic 41–63
== END | disposition home or self-care (01) ==
LOC: CHF HDHVI 07:57
PROVIDERS: ATTEND Internal Medicine Cardiovascular Disease
DX: I13.2 Hypertensive heart and chronic kidney disease with heart failure and with stage 5 chronic kidney disease, or end stage renal disease (principal); E11.22 Type 2 diabetes mellitus with diabetic chronic kidney disease; N18.6 End stage renal disease; I50.22 Chronic systolic (congestive) heart failure; I50.84 End stage heart failure; I25.10 Atherosclerotic heart disease of native coronary artery without angina pectoris; I48.11 Longstanding persistent atrial fibrillation; I27.21 Secondary pulmonary arterial hypertension; I25.2 Old myocardial infarction; I42.8 Other cardiomyopathies; F41.9 Anxiety disorder, unspecified; F31.9 Bipolar disorder, unspecified; J44.9 Chronic obstructive pulmonary disease, unspecified; K21.9 Gastro-esophageal reflux disease without esophagitis; E78.5 Hyperlipidemia, unspecified; E03.9 Hypothyroidism, unspecified; G89.29 Other chronic pain; E78.00 Pure hypercholesterolemia, unspecified; E11.41 Type 2 diabetes mellitus with diabetic mononeuropathy; E11.21 Type 2 diabetes mellitus with diabetic nephropathy; M19.90 Unspecified osteoarthritis, unspecified site; Z85.030 Personal history of malignant carcinoid tumor of large intestine; Z85.060 Personal history of malignant carcinoid tumor of small intestine; Z85.810 Personal history of malignant neoplasm of tongue; Z85.46 Personal history of malignant neoplasm of prostate; Z79.899 Other long term (current) drug therapy; Z79.01 Long term (current) use of anticoagulants; Z95.810 Presence of automatic (implantable) cardiac defibrillator; Z90.49 Acquired absence of other specified parts of digestive tract; Z95.5 Presence of coronary angioplasty implant and graft; Z86.73 Personal history of transient ischemic attack (TIA), and cerebral infarction without residual deficits
CPT/HCPCS: 96365; 96366; G0463; J1250; J1642

== ENCOUNTER → 2020-01-27 | Outpatient (CLI) | payer OTHER ==
[2020-01-27] VITALS (9 sets, daily range): BP systolic 88–132; BP diastolic 42–71
[~2020-01-27] VITALS: Ht 30.5 cm; Wt 89.4 kg
== END | disposition home or self-care (01) ==
LOC: CHF HDHVI 08:07
PROVIDERS: ATTEND Internal Medicine Cardiovascular Disease
DX: I13.2 Hypertensive heart and chronic kidney disease with heart failure and with stage 5 chronic kidney disease, or end stage renal disease (principal); E11.22 Type 2 diabetes mellitus with diabetic chronic kidney disease; N18.6 End stage renal disease; I50.22 Chronic systolic (congestive) heart failure; I50.84 End stage heart failure; I25.10 Atherosclerotic heart disease of native coronary artery without angina pectoris; I48.11 Longstanding persistent atrial fibrillation; I42.8 Other cardiomyopathies; I25.2 Old myocardial infarction; I27.21 Secondary pulmonary arterial hypertension; R53.83 Other fatigue; F41.9 Anxiety disorder, unspecified; F31.9 Bipolar disorder, unspecified; J44.9 Chronic obstructive pulmonary disease, unspecified; K21.9 Gastro-esophageal reflux disease without esophagitis; E78.5 Hyperlipidemia, unspecified; E03.9 Hypothyroidism, unspecified; G89.29 Other chronic pain; E78.00 Pure hypercholesterolemia, unspecified; E11.41 Type 2 diabetes mellitus with diabetic mononeuropathy; E11.21 Type 2 diabetes mellitus with diabetic nephropathy; E11.319 Type 2 diabetes mellitus with unspecified diabetic retinopathy without macular edema; M19.90 Unspecified osteoarthritis, unspecified site; Z79.899 Other long term (current) drug therapy; Z87.891 Personal history of nicotine dependence; Z90.49 Acquired absence of other specified parts of digestive tract; Z85.030 Personal history of malignant carcinoid tumor of large intestine; Z85.060 Personal history of malignant carcinoid tumor of small intestine; Z85.810 Personal history of malignant neoplasm of tongue; Z85.46 Personal history of malignant neoplasm of prostate; Z86.73 Personal history of transient ischemic attack (TIA), and cerebral infarction without residual deficits; Z79.01 Long term (current) use of anticoagulants
CPT/HCPCS: 96365; 96366; G0463; J1250; J1642

== ENCOUNTER → 2020-01-29 | Outpatient (CLI) | payer OTHER ==
[2020-01-29] VITALS (8 sets, daily range): BP systolic 103–131; BP diastolic 53–67
--- NOTE | 2020-01-29 07:35 | NUR ---
CHF PT ARRIVED TO THE CHF CLINIC FOR WEEKLY DOBUTAMINE TREATMENT. A/O X4, VSS. 2.7LB WT LOSS SINCE LAST VISIT.
--- NOTE | 2020-01-29 08:10 | NUR ---
Ayah Cath Insertion 20 gauge Ayah Cath inserted using sterile technique in the R upper chest with occlusive dressing over saucedo needle. Patient tolerated procedure well. See e-MAR for medications given during this visit. NOTE INSERTED BY JULIETA ALVAREZ
--- NOTE | 2020-01-29 08:16 | NUR ---
DOBUTAMINE INFUSION STARTED A 5 MCG/KG/MIN. PT A/O X4 VSS. WILL CONTINUE TO MONITOR.
--- NOTE | 2020-01-29 11:22 | NUR ---
Ayah Cath Removal Quinones needle D/C'd after Heparin flush per protocol. See e-MAR for medications given during this visit. Sterile occlusive dressing to site. Patient tolerated procedure well. Site benign post infusion. NOTE REMOVED BY GISELA ALVAREZ
--- NOTE | 2020-01-29 11:29 | NUR ---
Discharge Instructions See e-MAR for any mediations given with this visit. Patient education given on disease process. Patient verbalized understanding. Previous labs reviewed. Patient discharged in stable condition with after care instructions and follow up appointment. NEXT APPOINTMENT MONDAY NOTE DOBUTAMINE [id number] BY JULIETA ALVAREZ HEPARIN IVP BY GISELA ALVAREZ
== END | disposition home or self-care (01) ==
LOC: CHF HDHVI 08:20
PROVIDERS: ATTEND Internal Medicine Cardiovascular Disease
DX: I13.2 Hypertensive heart and chronic kidney disease with heart failure and with stage 5 chronic kidney disease, or end stage renal disease (principal); E11.22 Type 2 diabetes mellitus with diabetic chronic kidney disease; N18.6 End stage renal disease; I50.22 Chronic systolic (congestive) heart failure; I50.84 End stage heart failure; I25.10 Atherosclerotic heart disease of native coronary artery without angina pectoris; I27.21 Secondary pulmonary arterial hypertension; I48.11 Longstanding persistent atrial fibrillation; I25.2 Old myocardial infarction; I42.8 Other cardiomyopathies; F41.9 Anxiety disorder, unspecified; F31.9 Bipolar disorder, unspecified; R53.83 Other fatigue; J44.9 Chronic obstructive pulmonary disease, unspecified; K21.9 Gastro-esophageal reflux disease without esophagitis; E78.5 Hyperlipidemia, unspecified; E03.9 Hypothyroidism, unspecified; G89.29 Other chronic pain; M19.90 Unspecified osteoarthritis, unspecified site; E78.00 Pure hypercholesterolemia, unspecified; E11.41 Type 2 diabetes mellitus with diabetic mononeuropathy; E11.21 Type 2 diabetes mellitus with diabetic nephropathy; E11.319 Type 2 diabetes mellitus with unspecified diabetic retinopathy without macular edema; E11.51 Type 2 diabetes mellitus with diabetic peripheral angiopathy without gangrene; Z85.030 Personal history of malignant carcinoid tumor of large intestine; Z85.060 Personal history of malignant carcinoid tumor of small intestine; Z85.810 Personal history of malignant neoplasm of tongue; Z90.49 Acquired absence of other specified parts of digestive tract; Z85.46 Personal history of malignant neoplasm of prostate; Z95.810 Presence of automatic (implantable) cardiac defibrillator; Z79.01 Long term (current) use of anticoagulants; Z95.5 Presence of coronary angioplasty implant and graft; Z86.73 Personal history of transient ischemic attack (TIA), and cerebral infarction without residual deficits
CPT/HCPCS: 96365; 96366; G0463; J1250; J1642

== ENCOUNTER → 2020-01-31 | Outpatient (CLI) | payer OTHER ==
[~2020-01-31] VITALS: Ht 165.1 cm; Wt 89.7 kg
[2020-01-31] VITALS (9 sets, daily range): BP systolic 90–114; BP diastolic 46–60
--- NOTE | 2020-01-31 07:30 | NUR ---
Patient in clinic for scheduled visit, patient AAOx4, denies pain, vitals wnl.
--- NOTE | 2020-01-31 08:00 | NUR ---
Ayah Cath Insertion 20 gauge Ayah Cath inserted by Aisha ALVAREZ using sterile technique in the r upper chest with occlusive dressing over saucedo needle. Patient tolerated procedure well. Ordered labs drawn and sent. See e-MAR for medications given during this visit.
--- NOTE | 2020-01-31 11:20 | NUR ---
[facility] Clinic Discharge Instructions See e-MAR for any mediations given with this visit. Patient education given on disease process. Patient verbalized understanding. Previous labs reviewed. Patient discharged in stable condition with after care instructions and follow up appointment. Note Dobutamine [id number] admin by Aisha ALVAREZ Heparin admin by Ebony ALVAREZ
[2020-01-31 11:49] LABS: Basophils # (auto) 0 10 ^3/uL (0-0.2); Basophils % (auto) 0.5 % (0.0-2.0); Eosinophils # (auto) 0.1 10 ^3/uL (0-0.8); Eosinophils % (auto) 2.3 % (0.0-7.0); Hematocrit 42.4 % (41.0-53.0); Hemoglobin 14.5 g/dL (13.5-17.5); Lymphocytes # (auto) 1.3 10 ^3/uL (0.4-5.4); Lymphocytes % (auto) 35.8 % (10.0-50.0); Mean Corpuscular Hgb Conc. 34.1 g/dL (32.0-36.0); Mean Corpuscular Volume 96.6 fL (80.0-100.0); Monocytes # (auto) 0.6 10 ^3/uL (0-1.3); Monocytes % (auto) 16.2 % (0.0-12.0); Neutrophils # (auto) 1.6 10 ^3/uL (1.6-8.6); Neutrophils % (auto) 45.2 % (37.0-80.0); Nucleated Red Blood Cells % 0.3 %; Platelet Count (auto) 146 10^3/uL (140-450); Red Blood Cells 4.39 10^6/uL (4.5-5.90); Red Cell Distribution Width 12.9 % (11.8-14.3); White Blood Cell 3.5 10^3/uL (4.4-10.8)
[2020-01-31 12:02] LABS: BUN/Creatinine Ratio 12.3; Calcium 8.8 mg/dL (8.5-10.1); Magnesium 2.7 mg/dL (1.6-2.6)
== END | disposition home or self-care (01) ==
LOC: CHF HDHVI 08:06
PROVIDERS: ATTEND Internal Medicine Cardiovascular Disease
DX: I50.22 Chronic systolic (congestive) heart failure (principal); I13.2 Hypertensive heart and chronic kidney disease with heart failure and with stage 5 chronic kidney disease, or end stage renal disease; N18.6 End stage renal disease; I50.84 End stage heart failure; I48.11 Longstanding persistent atrial fibrillation; I25.10 Atherosclerotic heart disease of native coronary artery without angina pectoris; I25.2 Old myocardial infarction; I42.8 Other cardiomyopathies; I27.21 Secondary pulmonary arterial hypertension; K21.9 Gastro-esophageal reflux disease without esophagitis; F41.9 Anxiety disorder, unspecified; F31.9 Bipolar disorder, unspecified; E78.5 Hyperlipidemia, unspecified; E03.9 Hypothyroidism, unspecified; G89.29 Other chronic pain; E78.00 Pure hypercholesterolemia, unspecified; E11.22 Type 2 diabetes mellitus with diabetic chronic kidney disease; E11.41 Type 2 diabetes mellitus with diabetic mononeuropathy; E11.51 Type 2 diabetes mellitus with diabetic peripheral angiopathy without gangrene; E11.319 Type 2 diabetes mellitus with unspecified diabetic retinopathy without macular edema; M19.90 Unspecified osteoarthritis, unspecified site; Z85.030 Personal history of malignant carcinoid tumor of large intestine; Z85.060 Personal history of malignant carcinoid tumor of small intestine; Z85.810 Personal history of malignant neoplasm of tongue; Z85.46 Personal history of malignant neoplasm of prostate; Z95.810 Presence of automatic (implantable) cardiac defibrillator; Z95.5 Presence of coronary angioplasty implant and graft; Z79.899 Other long term (current) drug therapy; Z87.891 Personal history of nicotine dependence; Z79.01 Long term (current) use of anticoagulants; Z90.49 Acquired absence of other specified parts of digestive tract; Z95.1 Presence of aortocoronary bypass graft
CPT/HCPCS: 36415; 80048; 83735; 83880; 85025; 96365; 96366; G0463; J1250; J1642

== ENCOUNTER → 2020-02-03 | Outpatient (CLI) | payer OTHER ==
[~2020-02-03] VITALS: Ht 30.5 cm; Wt 88.5 kg
[2020-02-03] VITALS (8 sets, daily range): BP systolic 92–108; BP diastolic 42–65
[~2020-02-03] MED LIST changes: +KETOROLAC TROMETH 60MG/2ML VIAL IM ONE; +KETOROLAC TROMETH 60MG/2ML VIAL ONE
== END | disposition home or self-care (01) ==
LOC: CHF HDHVI 08:14
PROVIDERS: ATTEND Internal Medicine Cardiovascular Disease
DX: I13.2 Hypertensive heart and chronic kidney disease with heart failure and with stage 5 chronic kidney disease, or end stage renal disease (principal); E11.22 Type 2 diabetes mellitus with diabetic chronic kidney disease; N18.6 End stage renal disease; I50.22 Chronic systolic (congestive) heart failure; I50.84 End stage heart failure; I25.10 Atherosclerotic heart disease of native coronary artery without angina pectoris; I27.21 Secondary pulmonary arterial hypertension; I48.11 Longstanding persistent atrial fibrillation; I25.2 Old myocardial infarction; F41.9 Anxiety disorder, unspecified; I42.8 Other cardiomyopathies; F31.9 Bipolar disorder, unspecified; J44.9 Chronic obstructive pulmonary disease, unspecified; K21.9 Gastro-esophageal reflux disease without esophagitis; E78.5 Hyperlipidemia, unspecified; E03.9 Hypothyroidism, unspecified; G89.29 Other chronic pain; E11.41 Type 2 diabetes mellitus with diabetic mononeuropathy; E11.51 Type 2 diabetes mellitus with diabetic peripheral angiopathy without gangrene; E11.319 Type 2 diabetes mellitus with unspecified diabetic retinopathy without macular edema; M19.90 Unspecified osteoarthritis, unspecified site; E78.00 Pure hypercholesterolemia, unspecified; Z79.899 Other long term (current) drug therapy; Z85.030 Personal history of malignant carcinoid tumor of large intestine; Z85.060 Personal history of malignant carcinoid tumor of small intestine; Z85.810 Personal history of malignant neoplasm of tongue; Z85.46 Personal history of malignant neoplasm of prostate; Z87.891 Personal history of nicotine dependence; Z95.1 Presence of aortocoronary bypass graft; Z95.810 Presence of automatic (implantable) cardiac defibrillator; Z95.5 Presence of coronary angioplasty implant and graft; Z86.73 Personal history of transient ischemic attack (TIA), and cerebral infarction without residual deficits; Z79.01 Long term (current) use of anticoagulants; Z90.49 Acquired absence of other specified parts of digestive tract
CPT/HCPCS: 96365; 96366; 96372; G0463; J1250; J1642; J1885

== ENCOUNTER → 2020-02-05 | Outpatient (CLI) | payer OTHER ==
[2020-02-05] VITALS (9 sets, daily range): BP systolic 96–122; BP diastolic 42–66
--- NOTE | 2020-02-05 07:30 | NUR ---
CHF PT ARRIVED TO THE CHF CLINIC FOR WEEKLY DOBUTAMINE INFUSION PER MD ORDERS. A/O X4 VSS. PT COMPLAINS OF PAIN IN LOWER BACK AND HIP 5/10 PAIN LEVEL
--- NOTE | 2020-02-05 07:44 | NUR ---
DOBUTAMINE DRIP STARTED @ 5 MCG/KG/MIN VSS WILL CONTINUE TO MONITOR.
--- NOTE | 2020-02-05 08:56 | NUR ---
PT TOLERATING DOBUTAMINE DRIP. VSS. INFUSION SITE BENIGN. WILL CONTINUE TO MONITOR.
--- NOTE | 2020-02-05 10:48 | NUR ---
Ayah Cath Removal Quinones needle D/C'd after Heparin flush per protocol. See e-MAR for medications given during this visit. Sterile occlusive dressing to site. Patient tolerated procedure well. Site benign post infusion. NOTE REMOVED BY VÍCTOR ALVAREZ
--- NOTE | 2020-02-05 10:50 | NUR ---
Discharge Instructions See e-MAR for any mediations given with this visit. Patient education given on disease process. Patient verbalized understanding. Previous labs reviewed. Patient discharged in stable condition with after care instructions and follow up appointment. ON MONDAY NOTE DOBUTAMINE DRIP [id number] TORADOL IM GIVEN BY BUDDY RAMOS HEPARIN FLUSH IV GIVEN BY VÍCTOR ALVAREZ
== END | disposition home or self-care (01) ==
LOC: CHF HDHVI 07:59
PROVIDERS: ATTEND Internal Medicine Cardiovascular Disease
DX: I13.2 Hypertensive heart and chronic kidney disease with heart failure and with stage 5 chronic kidney disease, or end stage renal disease (principal); E11.22 Type 2 diabetes mellitus with diabetic chronic kidney disease; N18.6 End stage renal disease; I50.22 Chronic systolic (congestive) heart failure; I50.84 End stage heart failure; F41.9 Anxiety disorder, unspecified; I25.10 Atherosclerotic heart disease of native coronary artery without angina pectoris; I42.8 Other cardiomyopathies; I27.21 Secondary pulmonary arterial hypertension; I48.91 Unspecified atrial fibrillation; I25.2 Old myocardial infarction; F31.9 Bipolar disorder, unspecified; R53.83 Other fatigue; J44.9 Chronic obstructive pulmonary disease, unspecified; K21.9 Gastro-esophageal reflux disease without esophagitis; E78.6 Lipoprotein deficiency; E03.9 Hypothyroidism, unspecified; G89.29 Other chronic pain; E78.00 Pure hypercholesterolemia, unspecified; E11.51 Type 2 diabetes mellitus with diabetic peripheral angiopathy without gangrene; E11.319 Type 2 diabetes mellitus with unspecified diabetic retinopathy without macular edema; E11.41 Type 2 diabetes mellitus with diabetic mononeuropathy; E11.21 Type 2 diabetes mellitus with diabetic nephropathy; M19.90 Unspecified osteoarthritis, unspecified site; Z79.899 Other long term (current) drug therapy; Z85.030 Personal history of malignant carcinoid tumor of large intestine; Z85.060 Personal history of malignant carcinoid tumor of small intestine; Z85.810 Personal history of malignant neoplasm of tongue; Z85.46 Personal history of malignant neoplasm of prostate; Z87.891 Personal history of nicotine dependence; Z95.1 Presence of aortocoronary bypass graft; Z86.73 Personal history of transient ischemic attack (TIA), and cerebral infarction without residual deficits; Z95.5 Presence of coronary angioplasty implant and graft; Z79.01 Long term (current) use of anticoagulants; Z90.49 Acquired absence of other specified parts of digestive tract
CPT/HCPCS: 96365; 96366; 96372; G0463; J1250; J1642; J1885

== ENCOUNTER → 2020-02-07 | Outpatient (CLI) | payer OTHER ==
[2020-02-07] VITALS (9 sets, daily range): BP systolic 95–112; BP diastolic 41–59
[~2020-02-07] MED LIST changes: -KETOROLAC TROMETH 60MG/2ML VIAL IM ONE; -KETOROLAC TROMETH 60MG/2ML VIAL ONE
--- NOTE | 2020-02-07 07:42 | NUR ---
CHF PT ARRIVED TO THE CHF CLINIC FOR WEEKLY DOBUTAMINE INFUSION PER MD ORDERS. A/O X4, VSS, PT REPORTED NO CHANGES SINCE LAST TREATMENT.
--- NOTE | 2020-02-07 08:09 | NUR ---
DOBUTAMINE DRIP STARTED AT 5MCG/KG/MIN. VSS. WILL CONTINUE TO MONITOR
--- NOTE | 2020-02-07 09:14 | NUR ---
PT TOLERATING DOBUTAMINE DRIP. INFUSION SITE BENIGN. VSS WILL CONTINUE TO MONITOR
--- NOTE | 2020-02-07 11:22 | NUR ---
Ayah Cath Removal Quinones needle D/C'd after Heparin flush per protocol. See e-MAR for medications given during this visit. Sterile occlusive dressing to site. Patient tolerated procedure well. Site benign post infusion. NOTE REMOVED BY JULIETA ALVAREZ
--- NOTE | 2020-02-07 11:28 | NUR ---
Discharge Instructions See e-MAR for any mediations given with this visit. Patient education given on disease process. Patient verbalized understanding. Previous labs reviewed. Patient discharged in stable condition with after care instructions and follow up appointment. WILL RETURN TO CLINIC MONDAY FOR NEXT TREATMENT NOTE DOBUTAMINE [id number] ADMIN BY JULIETA ALVAREZ HEPARIN FLUSH ADMIN BY JULIETA ALVAREZ
== END | disposition home or self-care (01) ==
LOC: CHF HDHVI 08:04
PROVIDERS: ATTEND Internal Medicine Cardiovascular Disease
DX: I13.2 Hypertensive heart and chronic kidney disease with heart failure and with stage 5 chronic kidney disease, or end stage renal disease (principal); E11.22 Type 2 diabetes mellitus with diabetic chronic kidney disease; N18.6 End stage renal disease; I50.22 Chronic systolic (congestive) heart failure; I50.84 End stage heart failure; F41.9 Anxiety disorder, unspecified; I25.10 Atherosclerotic heart disease of native coronary artery without angina pectoris; I48.11 Longstanding persistent atrial fibrillation; I27.21 Secondary pulmonary arterial hypertension; I25.2 Old myocardial infarction; R53.83 Other fatigue; F31.9 Bipolar disorder, unspecified; J44.9 Chronic obstructive pulmonary disease, unspecified; K21.9 Gastro-esophageal reflux disease without esophagitis; E03.9 Hypothyroidism, unspecified; G89.29 Other chronic pain; E78.00 Pure hypercholesterolemia, unspecified; E11.319 Type 2 diabetes mellitus with unspecified diabetic retinopathy without macular edema; E11.21 Type 2 diabetes mellitus with diabetic nephropathy; M19.90 Unspecified osteoarthritis, unspecified site; E78.5 Hyperlipidemia, unspecified; M19.072 Primary osteoarthritis, left ankle and foot; Z79.899 Other long term (current) drug therapy; Z85.030 Personal history of malignant carcinoid tumor of large intestine; Z85.060 Personal history of malignant carcinoid tumor of small intestine; Z85.810 Personal history of malignant neoplasm of tongue; Z86.73 Personal history of transient ischemic attack (TIA), and cerebral infarction without residual deficits; Z85.46 Personal history of malignant neoplasm of prostate; Z87.891 Personal history of nicotine dependence; Z95.1 Presence of aortocoronary bypass graft; Z95.5 Presence of coronary angioplasty implant and graft; Z95.810 Presence of automatic (implantable) cardiac defibrillator; Z90.49 Acquired absence of other specified parts of digestive tract; Z79.01 Long term (current) use of anticoagulants
CPT/HCPCS: 96365; 96366; G0463; J1250; J1642

== ENCOUNTER → 2020-02-10 | Outpatient (CLI) | payer OTHER ==
[2020-02-10] VITALS (8 sets, daily range): BP systolic 90–114; BP diastolic 41–61
[~2020-02-10] VITALS: Ht 30.5 cm; Wt 89.7 kg
== END | disposition home or self-care (01) ==
LOC: CHF HDHVI 07:58
PROVIDERS: ATTEND Internal Medicine Cardiovascular Disease
DX: I13.2 Hypertensive heart and chronic kidney disease with heart failure and with stage 5 chronic kidney disease, or end stage renal disease (principal); E11.22 Type 2 diabetes mellitus with diabetic chronic kidney disease; N18.6 End stage renal disease; I50.22 Chronic systolic (congestive) heart failure; I50.84 End stage heart failure; I25.10 Atherosclerotic heart disease of native coronary artery without angina pectoris; I48.11 Longstanding persistent atrial fibrillation; I27.21 Secondary pulmonary arterial hypertension; I42.8 Other cardiomyopathies; I25.2 Old myocardial infarction; F41.9 Anxiety disorder, unspecified; F31.9 Bipolar disorder, unspecified; J44.9 Chronic obstructive pulmonary disease, unspecified; K21.9 Gastro-esophageal reflux disease without esophagitis; E78.5 Hyperlipidemia, unspecified; E03.9 Hypothyroidism, unspecified; E11.51 Type 2 diabetes mellitus with diabetic peripheral angiopathy without gangrene; E78.00 Pure hypercholesterolemia, unspecified; E11.41 Type 2 diabetes mellitus with diabetic mononeuropathy; M19.90 Unspecified osteoarthritis, unspecified site; E11.319 Type 2 diabetes mellitus with unspecified diabetic retinopathy without macular edema; Z79.899 Other long term (current) drug therapy; Z85.810 Personal history of malignant neoplasm of tongue; Z85.46 Personal history of malignant neoplasm of prostate; Z85.030 Personal history of malignant carcinoid tumor of large intestine; Z85.060 Personal history of malignant carcinoid tumor of small intestine; Z87.891 Personal history of nicotine dependence; Z95.1 Presence of aortocoronary bypass graft; Z95.5 Presence of coronary angioplasty implant and graft; Z90.49 Acquired absence of other specified parts of digestive tract; Z95.810 Presence of automatic (implantable) cardiac defibrillator; Z86.73 Personal history of transient ischemic attack (TIA), and cerebral infarction without residual deficits; Z79.01 Long term (current) use of anticoagulants
CPT/HCPCS: 96365; 96366; G0463; J1250; J1642

== ENCOUNTER → 2020-02-12 | Outpatient (CLI) | payer OTHER ==
[~2020-02-12] VITALS: Ht 165.1 cm; Wt 90.2 kg
[2020-02-12] VITALS (9 sets, daily range): BP systolic 100–116; BP diastolic 46–75
[~2020-02-12] MED LIST changes: +CATHFLO ACTIVASE (ALTEPLASE) 2 MG VIAL IV ONE; +STERILE WATER 10 ML ONE
[2020-02-12 12:39] LABS: Basophils # (auto) 0 10 ^3/uL (0-0.2); Basophils % (auto) 0.5 % (0.0-2.0); Eosinophils # (auto) 0.1 10 ^3/uL (0-0.8); Hematocrit 41.4 % (41.0-53.0); Hemoglobin 13.9 g/dL (13.5-17.5); Lymphocytes # (auto) 0.8 10 ^3/uL (0.4-5.4); Lymphocytes % (auto) 28.1 % (10.0-50.0); Mean Corpuscular Hemoglobin 32.3 pg (28.0-32.0); Mean Corpuscular Hgb Conc. 33.7 g/dL (32.0-36.0); Mean Corpuscular Volume 95.9 fL (80.0-100.0); Monocytes # (auto) 0.4 10 ^3/uL (0-1.3); Monocytes % (auto) 15.1 % (0.0-12.0); Neutrophils # (auto) 1.5 10 ^3/uL (1.6-8.6); Neutrophils % (auto) 53.3 % (37.0-80.0); Nucleated Red Blood Cells % 0.4 %; Platelet Count (auto) 154 10^3/uL (140-450); Red Blood Cells 4.31 10^6/uL (4.5-5.90); Red Cell Distribution Width 12.8 % (11.8-14.3); White Blood Cell 2.8 10^3/uL (4.4-10.8)
[2020-02-12 12:53] LABS: Calcium 8.7 mg/dL (8.5-10.1); Magnesium 2.6 mg/dL (1.6-2.6); Potassium 4.1 mmol/L (3.5-5.1)
[2020-02-12 12:55] LABS: BUN/Creatinine Ratio 11.5
== END | disposition home or self-care (01) ==
LOC: CHF HDHVI 08:01
PROVIDERS: ATTEND Internal Medicine Cardiovascular Disease
DX: I13.2 Hypertensive heart and chronic kidney disease with heart failure and with stage 5 chronic kidney disease, or end stage renal disease (principal); E11.22 Type 2 diabetes mellitus with diabetic chronic kidney disease; N18.6 End stage renal disease; I50.23 Acute on chronic systolic (congestive) heart failure; I50.84 End stage heart failure; R53.83 Other fatigue; I25.10 Atherosclerotic heart disease of native coronary artery without angina pectoris; I48.11 Longstanding persistent atrial fibrillation; I25.2 Old myocardial infarction; I27.21 Secondary pulmonary arterial hypertension; D64.9 Anemia, unspecified; E83.40 Disorders of magnesium metabolism, unspecified; F41.9 Anxiety disorder, unspecified; F31.9 Bipolar disorder, unspecified; J44.9 Chronic obstructive pulmonary disease, unspecified; K21.9 Gastro-esophageal reflux disease without esophagitis; E78.5 Hyperlipidemia, unspecified; E03.9 Hypothyroidism, unspecified; G89.29 Other chronic pain; E78.00 Pure hypercholesterolemia, unspecified; E11.41 Type 2 diabetes mellitus with diabetic mononeuropathy; E11.51 Type 2 diabetes mellitus with diabetic peripheral angiopathy without gangrene; E11.319 Type 2 diabetes mellitus with unspecified diabetic retinopathy without macular edema; M19.90 Unspecified osteoarthritis, unspecified site; Z95.1 Presence of aortocoronary bypass graft; Z79.899 Other long term (current) drug therapy; Z85.030 Personal history of malignant carcinoid tumor of large intestine; Z85.060 Personal history of malignant carcinoid tumor of small intestine; Z85.810 Personal history of malignant neoplasm of tongue; Z85.46 Personal history of malignant neoplasm of prostate; Z87.891 Personal history of nicotine dependence; Z95.810 Presence of automatic (implantable) cardiac defibrillator; Z95.5 Presence of coronary angioplasty implant and graft; Z86.73 Personal history of transient ischemic attack (TIA), and cerebral infarction without residual deficits; Z79.01 Long term (current) use of anticoagulants; Z90.49 Acquired absence of other specified parts of digestive tract
CPT/HCPCS: 36415; 80048; 83735; 83880; 85025; 96365; 96366; G0463; J1250; J1642; J2997; 96375

== ENCOUNTER → 2020-02-14 | Outpatient (CLI) | payer OTHER ==
[2020-02-14] VITALS (9 sets, daily range): BP systolic 103–126; BP diastolic 52–77
[~2020-02-14] MED LIST changes: -CATHFLO ACTIVASE (ALTEPLASE) 2 MG VIAL IV ONE; +CYANOCOBALAMIN (B-12) 1000 MCG/1 ML VIAL IM ONE; +CYANOCOBALAMIN (B-12) 1000 MCG/1 ML VIAL ONE; -STERILE WATER 10 ML ONE
--- NOTE | 2020-02-14 07:58 | NUR ---
CHF PT ARRIVED AT THE CHF CLINIC FOR TX AND EVAL. A/O X 4 0 DISTRESS WEIGHT DOWN 2 POUNDS PT FEELS GOOD
--- NOTE | 2020-02-14 08:10 | NUR ---
DOBUTAMINE DRIP STARTED AT 5MCG/KG/MIN PER MD ORDERS.
--- NOTE | 2020-02-14 09:22 | NUR ---
PT TOLERATING DOBUTAMINE INFUSION. VSS. WILL CONTINUE TO MONITOR
--- NOTE | 2020-02-14 11:21 | NUR ---
Ayah Cath Removal Quinones needle D/C'd after Heparin flush per protocol. See e-MAR for medications given during this visit. Sterile occlusive dressing to site. Patient tolerated procedure well. Site benign post infusion. NOTE REMOVED BY MACY LAVAREZ
--- NOTE | 2020-02-14 11:30 | NUR ---
Discharge Instructions See e-MAR for any mediations given with this visit. Patient education given on disease process. Patient verbalized understanding. Previous labs reviewed. Patient discharged in stable condition with after care instructions and follow up appointment. WILL RETURN TO CLINIC ON MONDAY NOTE DOBUTAMINE 809- ADMIN BY VÍCTOR ALVAREZ HEPARIN IVP ADMIN BY MACY ALVAREZ VIT B12 IM ADMIN BY JULIETA ALVAREZ
== END | disposition home or self-care (01) ==
LOC: CHF HDHVI 08:01
PROVIDERS: ATTEND Internal Medicine Cardiovascular Disease
DX: I13.2 Hypertensive heart and chronic kidney disease with heart failure and with stage 5 chronic kidney disease, or end stage renal disease (principal); E11.22 Type 2 diabetes mellitus with diabetic chronic kidney disease; I50.22 Chronic systolic (congestive) heart failure; I50.84 End stage heart failure; N18.6 End stage renal disease; F41.9 Anxiety disorder, unspecified; I25.10 Atherosclerotic heart disease of native coronary artery without angina pectoris; F31.9 Bipolar disorder, unspecified; J44.9 Chronic obstructive pulmonary disease, unspecified; K21.9 Gastro-esophageal reflux disease without esophagitis; E78.5 Hyperlipidemia, unspecified; E03.9 Hypothyroidism, unspecified; I25.2 Old myocardial infarction; I48.19 Other persistent atrial fibrillation; E78.00 Pure hypercholesterolemia, unspecified; E11.42 Type 2 diabetes mellitus with diabetic polyneuropathy; E11.51 Type 2 diabetes mellitus with diabetic peripheral angiopathy without gangrene; Z90.49 Acquired absence of other specified parts of digestive tract; Z79.01 Long term (current) use of anticoagulants; Z95.5 Presence of coronary angioplasty implant and graft; Z86.73 Personal history of transient ischemic attack (TIA), and cerebral infarction without residual deficits; Z79.899 Other long term (current) drug therapy
CPT/HCPCS: 96365; 96366; 96372; G0463; J1250; J1642; J3420

== ENCOUNTER → 2020-02-17 | Outpatient (CLI) | payer OTHER ==
[2020-02-17] VITALS (9 sets, daily range): BP systolic 99–129; BP diastolic 52–74
[~2020-02-17] VITALS: Ht 30.5 cm; Wt 88.1 kg
[~2020-02-17] MED LIST changes: -CYANOCOBALAMIN (B-12) 1000 MCG/1 ML VIAL IM ONE; -CYANOCOBALAMIN (B-12) 1000 MCG/1 ML VIAL ONE
--- NOTE | 2020-02-17 08:00 | NUR ---
CHF PT ARRIVED TO THE CHF CLINIC FOR WEEKLY DOBUTAMINE TREATMENT PER MD ORDERS. A/O X4, VSS. 1LB WT LOSS SINCE LAST TREATMENT
--- NOTE | 2020-02-17 08:11 | NUR ---
DOBUTAMINE INFUSION STARTED AT 5MCG/KG/MIN PER MD ORDERS VSS WILL CONTINUE TO MONITOR
--- NOTE | 2020-02-17 09:22 | NUR ---
PT TOLERATING DOBUTAMINE INFUSION. INFUSION SITE BENIGN. VSS. WILL CONTINUE TO MONITOR
--- NOTE | 2020-02-17 11:17 | NUR ---
Discharge Instructions See e-MAR for any mediations given with this visit. Patient education given on disease process. Patient verbalized understanding. Previous labs reviewed. Patient discharged in stable condition with after care instructions and follow up appointment. WILL RETURN TO THE CLINIC ON MONDAY FOR NEXT F/U NOTE DOBUTAMINE IV [id number] HEPARIN IVP
== END | disposition home or self-care (01) ==
LOC: CHF HDHVI 08:25
PROVIDERS: ATTEND Internal Medicine Cardiovascular Disease
DX: I13.2 Hypertensive heart and chronic kidney disease with heart failure and with stage 5 chronic kidney disease, or end stage renal disease (principal); E11.22 Type 2 diabetes mellitus with diabetic chronic kidney disease; N18.6 End stage renal disease; I50.22 Chronic systolic (congestive) heart failure; I50.84 End stage heart failure; I48.91 Unspecified atrial fibrillation; I27.21 Secondary pulmonary arterial hypertension; I25.2 Old myocardial infarction; R53.83 Other fatigue; F41.9 Anxiety disorder, unspecified; F31.9 Bipolar disorder, unspecified; J44.9 Chronic obstructive pulmonary disease, unspecified; K21.9 Gastro-esophageal reflux disease without esophagitis; E78.5 Hyperlipidemia, unspecified; E03.9 Hypothyroidism, unspecified; E78.00 Pure hypercholesterolemia, unspecified; E11.41 Type 2 diabetes mellitus with diabetic mononeuropathy; E11.51 Type 2 diabetes mellitus with diabetic peripheral angiopathy without gangrene; E11.319 Type 2 diabetes mellitus with unspecified diabetic retinopathy without macular edema; M19.90 Unspecified osteoarthritis, unspecified site; Z79.01 Long term (current) use of anticoagulants; Z85.030 Personal history of malignant carcinoid tumor of large intestine; Z85.060 Personal history of malignant carcinoid tumor of small intestine; Z90.49 Acquired absence of other specified parts of digestive tract; Z85.810 Personal history of malignant neoplasm of tongue; Z85.46 Personal history of malignant neoplasm of prostate; G89.29 Other chronic pain; Z87.891 Personal history of nicotine dependence; Z95.1 Presence of aortocoronary bypass graft; Z95.810 Presence of automatic (implantable) cardiac defibrillator; Z95.5 Presence of coronary angioplasty implant and graft; Z86.73 Personal history of transient ischemic attack (TIA), and cerebral infarction without residual deficits
CPT/HCPCS: 96365; 96366; G0463; J1250; J1642

== ENCOUNTER → 2020-02-19 | Outpatient (CLI) | payer OTHER ==
[2020-02-19] VITALS (9 sets, daily range): BP systolic 107–136; BP diastolic 55–74
== END | disposition home or self-care (01) ==
LOC: CHF HDHVI 07:57
PROVIDERS: ATTEND Internal Medicine Cardiovascular Disease
DX: I13.2 Hypertensive heart and chronic kidney disease with heart failure and with stage 5 chronic kidney disease, or end stage renal disease (principal); E11.22 Type 2 diabetes mellitus with diabetic chronic kidney disease; N18.6 End stage renal disease; I50.22 Chronic systolic (congestive) heart failure; I50.84 End stage heart failure; I25.10 Atherosclerotic heart disease of native coronary artery without angina pectoris; I27.21 Secondary pulmonary arterial hypertension; R53.83 Other fatigue; I48.91 Unspecified atrial fibrillation; I42.8 Other cardiomyopathies; I25.2 Old myocardial infarction; F41.9 Anxiety disorder, unspecified; F31.9 Bipolar disorder, unspecified; J44.9 Chronic obstructive pulmonary disease, unspecified; K21.9 Gastro-esophageal reflux disease without esophagitis; E78.5 Hyperlipidemia, unspecified; E03.9 Hypothyroidism, unspecified; G89.29 Other chronic pain; E11.41 Type 2 diabetes mellitus with diabetic mononeuropathy; E11.51 Type 2 diabetes mellitus with diabetic peripheral angiopathy without gangrene; E11.319 Type 2 diabetes mellitus with unspecified diabetic retinopathy without macular edema; M19.90 Unspecified osteoarthritis, unspecified site; I48.11 Longstanding persistent atrial fibrillation; Z85.030 Personal history of malignant carcinoid tumor of large intestine; Z85.060 Personal history of malignant carcinoid tumor of small intestine; Z85.810 Personal history of malignant neoplasm of tongue; Z85.46 Personal history of malignant neoplasm of prostate; Z87.891 Personal history of nicotine dependence; Z95.1 Presence of aortocoronary bypass graft; Z95.810 Presence of automatic (implantable) cardiac defibrillator; Z95.5 Presence of coronary angioplasty implant and graft; Z86.73 Personal history of transient ischemic attack (TIA), and cerebral infarction without residual deficits; Z79.01 Long term (current) use of anticoagulants; Z79.899 Other long term (current) drug therapy; Z90.49 Acquired absence of other specified parts of digestive tract
CPT/HCPCS: 96365; 96366; G0463; J1250; J1642

== ENCOUNTER → 2020-02-21 | Outpatient (CLI) | payer OTHER ==
[2020-02-21] VITALS (9 sets, daily range): BP systolic 109–157; BP diastolic 54–85
== END | disposition home or self-care (01) ==
LOC: CHF HDHVI 07:58
PROVIDERS: ATTEND Internal Medicine Cardiovascular Disease
DX: I13.2 Hypertensive heart and chronic kidney disease with heart failure and with stage 5 chronic kidney disease, or end stage renal disease (principal); E11.22 Type 2 diabetes mellitus with diabetic chronic kidney disease; N18.6 End stage renal disease; I50.22 Chronic systolic (congestive) heart failure; I50.84 End stage heart failure; I25.10 Atherosclerotic heart disease of native coronary artery without angina pectoris; R53.83 Other fatigue; I48.91 Unspecified atrial fibrillation; I42.8 Other cardiomyopathies; F41.9 Anxiety disorder, unspecified; I48.11 Longstanding persistent atrial fibrillation; I27.21 Secondary pulmonary arterial hypertension; I25.2 Old myocardial infarction; J44.9 Chronic obstructive pulmonary disease, unspecified; F31.9 Bipolar disorder, unspecified; K21.9 Gastro-esophageal reflux disease without esophagitis; E78.5 Hyperlipidemia, unspecified; E03.9 Hypothyroidism, unspecified; G89.29 Other chronic pain; E11.41 Type 2 diabetes mellitus with diabetic mononeuropathy; E11.51 Type 2 diabetes mellitus with diabetic peripheral angiopathy without gangrene; E11.319 Type 2 diabetes mellitus with unspecified diabetic retinopathy without macular edema; M19.90 Unspecified osteoarthritis, unspecified site; E78.00 Pure hypercholesterolemia, unspecified; Z79.899 Other long term (current) drug therapy; Z85.030 Personal history of malignant carcinoid tumor of large intestine; Z90.49 Acquired absence of other specified parts of digestive tract; Z85.060 Personal history of malignant carcinoid tumor of small intestine; Z85.810 Personal history of malignant neoplasm of tongue; Z85.46 Personal history of malignant neoplasm of prostate; Z87.891 Personal history of nicotine dependence; Z95.1 Presence of aortocoronary bypass graft; Z95.5 Presence of coronary angioplasty implant and graft; Z95.810 Presence of automatic (implantable) cardiac defibrillator; Z86.73 Personal history of transient ischemic attack (TIA), and cerebral infarction without residual deficits; Z79.01 Long term (current) use of anticoagulants
CPT/HCPCS: 96365; 96366; G0463; J1250; J1642

== ENCOUNTER → 2020-02-24 | Outpatient (CLI) | payer OTHER ==
[2020-02-24] VITALS (9 sets, daily range): BP systolic 101–122; BP diastolic 49–63
[~2020-02-24] VITALS: Ht 30.5 cm; Wt 88.3 kg
== END | disposition home or self-care (01) ==
LOC: CHF HDHVI 08:34
PROVIDERS: ATTEND Internal Medicine Cardiovascular Disease
DX: I13.2 Hypertensive heart and chronic kidney disease with heart failure and with stage 5 chronic kidney disease, or end stage renal disease (principal); E11.22 Type 2 diabetes mellitus with diabetic chronic kidney disease; N18.6 End stage renal disease; I50.22 Chronic systolic (congestive) heart failure; I50.84 End stage heart failure; I25.10 Atherosclerotic heart disease of native coronary artery without angina pectoris; I48.11 Longstanding persistent atrial fibrillation; I27.21 Secondary pulmonary arterial hypertension; I25.2 Old myocardial infarction; I42.8 Other cardiomyopathies; F41.9 Anxiety disorder, unspecified; F31.9 Bipolar disorder, unspecified; K21.9 Gastro-esophageal reflux disease without esophagitis; E78.5 Hyperlipidemia, unspecified; E03.9 Hypothyroidism, unspecified; G89.29 Other chronic pain; E78.00 Pure hypercholesterolemia, unspecified; M19.90 Unspecified osteoarthritis, unspecified site; E11.42 Type 2 diabetes mellitus with diabetic polyneuropathy; E11.51 Type 2 diabetes mellitus with diabetic peripheral angiopathy without gangrene; E11.319 Type 2 diabetes mellitus with unspecified diabetic retinopathy without macular edema; Z79.899 Other long term (current) drug therapy; Z85.030 Personal history of malignant carcinoid tumor of large intestine; Z85.060 Personal history of malignant carcinoid tumor of small intestine; Z85.810 Personal history of malignant neoplasm of tongue; Z85.46 Personal history of malignant neoplasm of prostate; Z95.1 Presence of aortocoronary bypass graft; Z95.5 Presence of coronary angioplasty implant and graft; Z95.810 Presence of automatic (implantable) cardiac defibrillator; Z86.73 Personal history of transient ischemic attack (TIA), and cerebral infarction without residual deficits; Z90.49 Acquired absence of other specified parts of digestive tract; Z79.01 Long term (current) use of anticoagulants
CPT/HCPCS: 83880; 96365; 96366; G0463; J1250; J1642

== ENCOUNTER → 2020-02-26 | Outpatient (CLI) | payer OTHER ==
[~2020-02-26] VITALS: Ht 30.5 cm; Wt 88.6 kg
[2020-02-26] VITALS (10 sets, daily range): BP systolic 97–123; BP diastolic 46–64
[~2020-02-26] MED LIST changes: +CLOP75TA28 PO; +MAGN400T21 GT
--- NOTE | 2020-02-26 08:00 | NUR ---
CHF PT ARRIVED TO THE CHF CLINIC FOR WEEKLY DOBUTAMINE INFUSION PER MD ORDERS. A/O X4
--- NOTE | 2020-02-26 08:18 | NUR ---
DOBUTAMINE DRIP STARTED AT 5MCG/KG/MIN PER MD ORDERS. VSS. WILL CONTINUE TO MONITOR.
--- NOTE | 2020-02-26 09:42 | NUR ---
PT TOLERATING DOBUTAMINE DRIP. INFUSION SITE BENIGN. VSS. WILL CONTINUE TO MONITOR.
--- NOTE | 2020-02-26 11:20 | NUR ---
CHF CLINIC Discharge Instructions See e-MAR for any mediations given with this visit. Patient education given on disease process. Patient verbalized understanding. Previous labs reviewed. Patient discharged in stable condition with after care instructions and follow up appointment. NOTES DOBUTAMINE IV [id number] ADMIN BY JULIETA ALVAREZ HEPARIN IVP 1118 ADMIN BY FRAN ALVAREZ
== END | disposition home or self-care (01) ==
LOC: CHF HDHVI 08:01
PROVIDERS: ATTEND Internal Medicine Cardiovascular Disease
DX: I13.2 Hypertensive heart and chronic kidney disease with heart failure and with stage 5 chronic kidney disease, or end stage renal disease (principal); E11.22 Type 2 diabetes mellitus with diabetic chronic kidney disease; N18.6 End stage renal disease; I50.22 Chronic systolic (congestive) heart failure; I50.84 End stage heart failure; R53.83 Other fatigue; I25.10 Atherosclerotic heart disease of native coronary artery without angina pectoris; I27.21 Secondary pulmonary arterial hypertension; I25.2 Old myocardial infarction; I48.11 Longstanding persistent atrial fibrillation; F41.9 Anxiety disorder, unspecified; F31.9 Bipolar disorder, unspecified; J44.9 Chronic obstructive pulmonary disease, unspecified; K21.9 Gastro-esophageal reflux disease without esophagitis; E78.5 Hyperlipidemia, unspecified; E03.9 Hypothyroidism, unspecified; G89.29 Other chronic pain; E78.00 Pure hypercholesterolemia, unspecified; E11.41 Type 2 diabetes mellitus with diabetic mononeuropathy; E11.51 Type 2 diabetes mellitus with diabetic peripheral angiopathy without gangrene; E11.319 Type 2 diabetes mellitus with unspecified diabetic retinopathy without macular edema; Z85.030 Personal history of malignant carcinoid tumor of large intestine; Z90.49 Acquired absence of other specified parts of digestive tract; Z85.060 Personal history of malignant carcinoid tumor of small intestine; Z85.810 Personal history of malignant neoplasm of tongue; Z85.46 Personal history of malignant neoplasm of prostate; Z87.891 Personal history of nicotine dependence; Z95.1 Presence of aortocoronary bypass graft; Z95.810 Presence of automatic (implantable) cardiac defibrillator; Z95.5 Presence of coronary angioplasty implant and graft; Z86.73 Personal history of transient ischemic attack (TIA), and cerebral infarction without residual deficits; Z79.01 Long term (current) use of anticoagulants; Z79.899 Other long term (current) drug therapy
CPT/HCPCS: 96365; 96366; G0463; J1250; J1642

== ENCOUNTER → 2020-02-28 | Outpatient (CLI) | payer OTHER ==
[2020-02-28] VITALS (9 sets, daily range): BP systolic 105–136; BP diastolic 55–74
--- NOTE | 2020-02-28 08:00 | NUR ---
Patient in clinic for scheduled treatment, AAOx4, breathing even and unlabored, ambulatory.
--- NOTE | 2020-02-28 08:25 | NUR ---
Ayah Cath Insertion 20 gauge Ayah Cath inserted by Ebony ALVAREZ using sterile technique in the r upper chest with occlusive dressing over saucedo needle. Patient tolerated procedure well. Ordered labs drawn and sent. See e-MAR for medications given during this visit.
--- NOTE | 2020-02-28 09:45 | NUR ---
Patient watching tv and talking with other patients, will cont to monitor.
--- NOTE | 2020-02-28 11:40 | NUR ---
CHF Clinic Discharge Instructions See e-MAR for any mediations given with this visit. Patient education given on disease process. Patient verbalized understanding. Previous labs reviewed. Patient discharged in stable condition with after care instructions and follow up appointment. Note Dobutamine [id number] admin by Ebony ALVAREZ. Heparin admin by Aisha ALVAREZ.
[2020-02-28 12:48] LABS: Potassium 4.1 mmol/L (3.5-5.1)
== END | disposition home or self-care (01) ==
LOC: CHF HDHVI 08:52
PROVIDERS: ATTEND Internal Medicine Cardiovascular Disease
DX: I13.2 Hypertensive heart and chronic kidney disease with heart failure and with stage 5 chronic kidney disease, or end stage renal disease (principal); E11.22 Type 2 diabetes mellitus with diabetic chronic kidney disease; N18.6 End stage renal disease; I50.22 Chronic systolic (congestive) heart failure; I50.84 End stage heart failure; I25.10 Atherosclerotic heart disease of native coronary artery without angina pectoris; I42.8 Other cardiomyopathies; I25.2 Old myocardial infarction; I27.21 Secondary pulmonary arterial hypertension; I48.11 Longstanding persistent atrial fibrillation; F41.9 Anxiety disorder, unspecified; F31.9 Bipolar disorder, unspecified; J44.9 Chronic obstructive pulmonary disease, unspecified; K21.9 Gastro-esophageal reflux disease without esophagitis; E78.5 Hyperlipidemia, unspecified; E03.9 Hypothyroidism, unspecified; G89.29 Other chronic pain; E78.00 Pure hypercholesterolemia, unspecified; E11.41 Type 2 diabetes mellitus with diabetic mononeuropathy; E11.51 Type 2 diabetes mellitus with diabetic peripheral angiopathy without gangrene; E11.319 Type 2 diabetes mellitus with unspecified diabetic retinopathy without macular edema; M19.90 Unspecified osteoarthritis, unspecified site; Z85.030 Personal history of malignant carcinoid tumor of large intestine; Z85.060 Personal history of malignant carcinoid tumor of small intestine; Z85.810 Personal history of malignant neoplasm of tongue; Z85.46 Personal history of malignant neoplasm of prostate; Z87.891 Personal history of nicotine dependence; Z95.1 Presence of aortocoronary bypass graft; Z79.899 Other long term (current) drug therapy; Z95.810 Presence of automatic (implantable) cardiac defibrillator; Z79.01 Long term (current) use of anticoagulants; Z90.49 Acquired absence of other specified parts of digestive tract
CPT/HCPCS: 36415; 82565; 83880; 84132; 84520; 96365; 96366; G0463; J1250; J1642

== ENCOUNTER → 2020-03-02 | Outpatient (CLI) | payer OTHER ==
[2020-03-02] VITALS (9 sets, daily range): BP systolic 103–125; BP diastolic 49–63
[~2020-03-02] MED LIST changes: -CLOP75TA28 PO; -MAGN400T21 GT
== END | disposition home or self-care (01) ==
LOC: CHF HDHVI 08:01
PROVIDERS: ATTEND Internal Medicine Cardiovascular Disease
DX: I13.2 Hypertensive heart and chronic kidney disease with heart failure and with stage 5 chronic kidney disease, or end stage renal disease (principal); E11.22 Type 2 diabetes mellitus with diabetic chronic kidney disease; N18.6 End stage renal disease; I50.22 Chronic systolic (congestive) heart failure; I50.84 End stage heart failure; R53.83 Other fatigue; I25.10 Atherosclerotic heart disease of native coronary artery without angina pectoris; I48.11 Longstanding persistent atrial fibrillation; I25.2 Old myocardial infarction; I42.8 Other cardiomyopathies; F31.9 Bipolar disorder, unspecified; F41.9 Anxiety disorder, unspecified; J44.9 Chronic obstructive pulmonary disease, unspecified; K21.9 Gastro-esophageal reflux disease without esophagitis; E78.5 Hyperlipidemia, unspecified; E03.9 Hypothyroidism, unspecified; E11.41 Type 2 diabetes mellitus with diabetic mononeuropathy; E11.51 Type 2 diabetes mellitus with diabetic peripheral angiopathy without gangrene; E11.319 Type 2 diabetes mellitus with unspecified diabetic retinopathy without macular edema; M19.90 Unspecified osteoarthritis, unspecified site; Z85.030 Personal history of malignant carcinoid tumor of large intestine; Z90.49 Acquired absence of other specified parts of digestive tract; Z85.060 Personal history of malignant carcinoid tumor of small intestine; Z85.810 Personal history of malignant neoplasm of tongue; Z85.46 Personal history of malignant neoplasm of prostate; Z87.891 Personal history of nicotine dependence; Z95.5 Presence of coronary angioplasty implant and graft; Z95.1 Presence of aortocoronary bypass graft; Z95.810 Presence of automatic (implantable) cardiac defibrillator; Z86.73 Personal history of transient ischemic attack (TIA), and cerebral infarction without residual deficits; Z79.01 Long term (current) use of anticoagulants
CPT/HCPCS: 96365; 96366; G0463; J1250; J1642

== ENCOUNTER → 2020-03-04 | Outpatient (CLI) | payer OTHER ==
[~2020-03-04] VITALS: Ht 30.5 cm; Wt 88.6 kg
[~2020-03-04] MED LIST changes: +CLOP75TA28 PO; +MAGN400T21 GT
--- NOTE | 2020-03-04 07:56 | NUR ---
CHF PT ARRIVED TO THE CHF CLINIC FOR WEEKLY DOBUTAMINE INFUSION PER MD ORDERS. A/O X4.
--- NOTE | 2020-03-04 08:09 | NUR ---
DOBUTAMINE INFUSION STARTED @ 5MCG/KG/MIN PER MD ORDERS. VVS. WILL CONTINUE TO MONITOR.
--- NOTE | 2020-03-04 08:13 | NUR ---
Ayah Cath Removal Quinones needle D/C'd after Heparin flush per protocol. See e-MAR for medications given during this visit. Sterile occlusive dressing to site. Patient tolerated procedure well. Site benign post infusion. NOTE REMOVED BY JULIETA ALVAREZ Addendum: 03/04/20 at 1119 by JULIETA YOU RN RN [place] REMOVED AT [id number] NOT [id number]
[2020-03-04 08:15] VITALS: BP 99/60
--- NOTE | 2020-03-04 09:54 | NUR ---
PT TOLERATING DOBUTAMINE INFUSION. INFUSION SITE BENIGN. VSS. WILL CONTINUE TO MONITOR.
[2020-03-04 11:15] VITALS: BP 115/61
--- NOTE | 2020-03-04 11:15 | NUR ---
Discharge Instructions See e-MAR for any mediations given with this visit. Patient education given on disease process. Patient verbalized understanding. Previous labs reviewed. Patient discharged in stable condition with after care instructions and follow up appointment. WILL RETURN TO CLINIC MONDAY FOR F/U [place] DOBUTAMINE IV [id number] ADMIN BY JULIETA ALVAREZ HEPARIN IVP ADMIN BY JULIETA ALVAREZ
== END | disposition home or self-care (01) ==
LOC: CHF HDHVI 08:04
PROVIDERS: ATTEND Internal Medicine Cardiovascular Disease
DX: I13.2 Hypertensive heart and chronic kidney disease with heart failure and with stage 5 chronic kidney disease, or end stage renal disease (principal); E11.22 Type 2 diabetes mellitus with diabetic chronic kidney disease; N18.6 End stage renal disease; I50.22 Chronic systolic (congestive) heart failure; I50.84 End stage heart failure; R53.83 Other fatigue; I25.10 Atherosclerotic heart disease of native coronary artery without angina pectoris; I48.11 Longstanding persistent atrial fibrillation; I42.8 Other cardiomyopathies; I27.21 Secondary pulmonary arterial hypertension; I25.2 Old myocardial infarction; F31.9 Bipolar disorder, unspecified; F41.9 Anxiety disorder, unspecified; J44.9 Chronic obstructive pulmonary disease, unspecified; E11.42 Type 2 diabetes mellitus with diabetic polyneuropathy; E78.00 Pure hypercholesterolemia, unspecified; E11.51 Type 2 diabetes mellitus with diabetic peripheral angiopathy without gangrene; E11.319 Type 2 diabetes mellitus with unspecified diabetic retinopathy without macular edema; M19.90 Unspecified osteoarthritis, unspecified site; G89.29 Other chronic pain; Z85.46 Personal history of malignant neoplasm of prostate; Z90.49 Acquired absence of other specified parts of digestive tract; Z79.899 Other long term (current) drug therapy; Z85.030 Personal history of malignant carcinoid tumor of large intestine; Z85.060 Personal history of malignant carcinoid tumor of small intestine; Z85.810 Personal history of malignant neoplasm of tongue; Z87.891 Personal history of nicotine dependence; Z95.1 Presence of aortocoronary bypass graft; Z95.5 Presence of coronary angioplasty implant and graft; Z95.810 Presence of automatic (implantable) cardiac defibrillator; Z86.73 Personal history of transient ischemic attack (TIA), and cerebral infarction without residual deficits; Z79.01 Long term (current) use of anticoagulants
CPT/HCPCS: 96365; 96366; G0463; J1250; J1642

== ENCOUNTER → 2020-03-06 | Outpatient (CLI) | payer OTHER ==
[2020-03-06] VITALS (8 sets, daily range): BP systolic 95–122; BP diastolic 42–66
[~2020-03-06] VITALS: Ht 30.5 cm; Wt 87.8 kg
[~2020-03-06] MED LIST changes: -CLOP75TA28 PO; -MAGN400T21 GT
--- NOTE | 2020-03-06 07:57 | NUR ---
CHF PT ARRIVED TO THE CHF CLINIC FOR WEEKLY DOBUTAMINE TREATMENT PER MD ORDERS. A/O X4
--- NOTE | 2020-03-06 08:07 | NUR ---
Ayah Cath Insertion 20 gauge Ayah Cath inserted using sterile technique in the R upper chest with occlusive dressing over saucedo needle. Patient tolerated procedure well. See e-MAR for medications given during this visit. NOTE INSERTED BY JULIETA ALVAERZ
--- NOTE | 2020-03-06 08:08 | NUR ---
DOBUTAMINE INFUSION STARTED @ 5MCG/KG/MIN PER MD ORDERS. VSS. WILL CONTINUE TO MONITOR..
--- NOTE | 2020-03-06 09:54 | NUR ---
PT TOLERATING DOBUTAMINE INFUSION. INFUSION SITE BENIGN. VSS. WILL CONTINUE TO MONITOR..
--- NOTE | 2020-03-06 11:16 | NUR ---
Discharge Instructions See e-MAR for any mediations given with this visit. Patient education given on disease process. Patient verbalized understanding. Previous labs reviewed. Patient discharged in stable condition with after care instructions and follow up appointment. WILL RETURN TO CLINIC MONDAY [place] IV [id number] ADMIN BY JULIETA ALVAREZ HEPARIN IVP ADMIN BY JULIETA ALVAREZ
== END | disposition home or self-care (01) ==
LOC: CHF HDHVI 08:20
PROVIDERS: ATTEND Internal Medicine Cardiovascular Disease
DX: I13.2 Hypertensive heart and chronic kidney disease with heart failure and with stage 5 chronic kidney disease, or end stage renal disease (principal); E11.22 Type 2 diabetes mellitus with diabetic chronic kidney disease; N18.6 End stage renal disease; I50.22 Chronic systolic (congestive) heart failure; I50.84 End stage heart failure; I25.10 Atherosclerotic heart disease of native coronary artery without angina pectoris; I27.21 Secondary pulmonary arterial hypertension; I48.11 Longstanding persistent atrial fibrillation; I42.8 Other cardiomyopathies; I25.2 Old myocardial infarction; R53.83 Other fatigue; F41.9 Anxiety disorder, unspecified; F31.9 Bipolar disorder, unspecified; J44.9 Chronic obstructive pulmonary disease, unspecified; G89.29 Other chronic pain; E78.00 Pure hypercholesterolemia, unspecified; E11.319 Type 2 diabetes mellitus with unspecified diabetic retinopathy without macular edema; M19.90 Unspecified osteoarthritis, unspecified site; K21.9 Gastro-esophageal reflux disease without esophagitis; E78.5 Hyperlipidemia, unspecified; E03.9 Hypothyroidism, unspecified; E11.41 Type 2 diabetes mellitus with diabetic mononeuropathy; Z79.899 Other long term (current) drug therapy; Z90.49 Acquired absence of other specified parts of digestive tract; Z79.01 Long term (current) use of anticoagulants; Z85.030 Personal history of malignant carcinoid tumor of large intestine; Z85.060 Personal history of malignant carcinoid tumor of small intestine; Z85.810 Personal history of malignant neoplasm of tongue; Z85.46 Personal history of malignant neoplasm of prostate; Z95.1 Presence of aortocoronary bypass graft; Z95.810 Presence of automatic (implantable) cardiac defibrillator; Z95.5 Presence of coronary angioplasty implant and graft; Z86.73 Personal history of transient ischemic attack (TIA), and cerebral infarction without residual deficits
CPT/HCPCS: 96365; 96366; G0463; J1250; J1642

== ENCOUNTER → 2020-03-09 | Outpatient (CLI) | payer OTHER ==
[2020-03-09] VITALS (9 sets, daily range): BP systolic 95–123; BP diastolic 44–66
--- NOTE | 2020-03-09 07:59 | NUR ---
CHF PT ARRIVED TO THE CHF CLINIC FOR WEEKLY DOBUTAMINE TREATMENT PER MD ORDER. A/OX4
--- NOTE | 2020-03-09 08:17 | NUR ---
DOBUTAMINE INFUSION STARTED @ 5MCG/KG/MIN PER MD ORDERS. VSS. WILL CONTINUE TO MONITOR.
--- NOTE | 2020-03-09 11:31 | NUR ---
Ayah Cath Removal Quinones needle D/C'd by Aisha ALVRAEZ after Heparin flush per protocol. See e-MAR for medications given during this visit. Sterile occlusive dressing to site. Patient tolerated procedure well. Site benign post infusion.
--- NOTE | 2020-03-09 11:35 | NUR ---
CHF Clinic Discharge Instructions See e-MAR for any mediations given with this visit. Patient education given on disease process. Patient verbalized understanding. Previous labs reviewed. Patient discharged in stable condition with after care instructions and follow up appointment. Note Dobutamine [id number] admin by Cheyanne ALVAREZ. Heparin admin by Aisha ALVAREZ.
== END | disposition home or self-care (01) ==
LOC: CHF HDHVI 08:00
PROVIDERS: ATTEND Internal Medicine Cardiovascular Disease
DX: I13.2 Hypertensive heart and chronic kidney disease with heart failure and with stage 5 chronic kidney disease, or end stage renal disease (principal); E11.22 Type 2 diabetes mellitus with diabetic chronic kidney disease; N18.6 End stage renal disease; I50.22 Chronic systolic (congestive) heart failure; I50.84 End stage heart failure; I25.10 Atherosclerotic heart disease of native coronary artery without angina pectoris; I25.2 Old myocardial infarction; I27.21 Secondary pulmonary arterial hypertension; I48.11 Longstanding persistent atrial fibrillation; I42.8 Other cardiomyopathies; F41.9 Anxiety disorder, unspecified; F31.9 Bipolar disorder, unspecified; J44.9 Chronic obstructive pulmonary disease, unspecified; K21.9 Gastro-esophageal reflux disease without esophagitis; E78.5 Hyperlipidemia, unspecified; G89.29 Other chronic pain; E78.00 Pure hypercholesterolemia, unspecified; E11.42 Type 2 diabetes mellitus with diabetic polyneuropathy; E11.319 Type 2 diabetes mellitus with unspecified diabetic retinopathy without macular edema; M19.90 Unspecified osteoarthritis, unspecified site; E11.51 Type 2 diabetes mellitus with diabetic peripheral angiopathy without gangrene; E11.21 Type 2 diabetes mellitus with diabetic nephropathy; E03.9 Hypothyroidism, unspecified; Z95.1 Presence of aortocoronary bypass graft; Z85.030 Personal history of malignant carcinoid tumor of large intestine; Z79.899 Other long term (current) drug therapy; Z90.49 Acquired absence of other specified parts of digestive tract; Z85.060 Personal history of malignant carcinoid tumor of small intestine; Z85.810 Personal history of malignant neoplasm of tongue; Z85.46 Personal history of malignant neoplasm of prostate; Z95.5 Presence of coronary angioplasty implant and graft; Z95.810 Presence of automatic (implantable) cardiac defibrillator; Z86.73 Personal history of transient ischemic attack (TIA), and cerebral infarction without residual deficits; Z79.01 Long term (current) use of anticoagulants
CPT/HCPCS: 96365; 96366; G0463; J1250; J1642

== ENCOUNTER → 2020-03-11 | Outpatient (CLI) | payer OTHER ==
[2020-03-11] VITALS (9 sets, daily range): BP systolic 93–127; BP diastolic 48–64
[~2020-03-11] VITALS: Ht 30.5 cm; Wt 88.1 kg
[~2020-03-11] MED LIST changes: +CLOP75TA28 PO; +MAGN400T21 GT
--- NOTE | 2020-03-11 07:50 | NUR ---
CHF PT ARRIVED TO THE CLINIC FOR WEEKLY DOBUTAMINE INFUSION PER MD ORDERS. A/O X4
--- NOTE | 2020-03-11 08:41 | NUR ---
Ayah Cath Insertion 20 gauge Ayah Cath inserted using sterile technique in the R upper chest with occlusive dressing over saucedo needle. Patient tolerated procedure well. Ordered labs drawn and sent. See e-MAR for medications given during this visit. NOTE INSERTED BY VÍCTOR ALVAREZ
--- NOTE | 2020-03-11 08:49 | NUR ---
DOBUTAMINE INFUSION STARTED @ 5 MCG/KG/MIN PER MD ORDERS. VSS. WILL CONTINUE TO MONITOR.
--- NOTE | 2020-03-11 10:14 | NUR ---
PT TOLERATING DOBUTAMINE INFUSION. INFUSION SITE BENIGN. VSS. WILL CONTINUE TO MONITOR.
--- NOTE | 2020-03-11 11:55 | NUR ---
Discharge Instructions See e-MAR for any mediations given with this visit. Patient education given on disease process. Patient verbalized understanding. Previous labs reviewed. Patient discharged in stable condition with after care instructions and follow up appointment. WILL RETURN TO CLINIC [place] [id number] ADMIN BY VÍCTOR ALVAREZ HEPARIN IVP ADMIN BY JULIETA ALVAREZ
[2020-03-11 12:00] LABS: Basophils # (auto) 0 10 ^3/uL (0-0.2); Basophils % (auto) 0.6 % (0.0-2.0); Eosinophils # (auto) 0.1 10 ^3/uL (0-0.8); Eosinophils % (auto) 2.4 % (0.0-7.0); Hematocrit 39.2 % (41.0-53.0); Hemoglobin 13.2 g/dL (13.5-17.5); Lymphocytes # (auto) 1.1 10 ^3/uL (0.4-5.4); Lymphocytes % (auto) 32.6 % (10.0-50.0); Mean Corpuscular Hemoglobin 32.4 pg (28.0-32.0); Mean Corpuscular Hgb Conc. 33.7 g/dL (32.0-36.0); Mean Corpuscular Volume 95.9 fL (80.0-100.0); Monocytes # (auto) 0.6 10 ^3/uL (0-1.3); Monocytes % (auto) 16.7 % (0.0-12.0); Neutrophils # (auto) 1.6 10 ^3/uL (1.6-8.6); Neutrophils % (auto) 47.7 % (37.0-80.0); Nucleated Red Blood Cells % 0.1 %; Platelet Count (auto) 147 10^3/uL (140-450); Red Blood Cells 4.09 10^6/uL (4.5-5.90); White Blood Cell 3.4 10^3/uL (4.4-10.8)
[2020-03-11 12:10] LABS: BUN/Creatinine Ratio 16.4; Calcium 8.7 mg/dL (8.5-10.1); Magnesium 2.6 mg/dL (1.6-2.6)
== END | disposition home or self-care (01) ==
LOC: CHF HDHVI 08:17
PROVIDERS: ATTEND Internal Medicine Cardiovascular Disease
DX: I13.2 Hypertensive heart and chronic kidney disease with heart failure and with stage 5 chronic kidney disease, or end stage renal disease (principal); E11.22 Type 2 diabetes mellitus with diabetic chronic kidney disease; I50.22 Chronic systolic (congestive) heart failure; I50.84 End stage heart failure; N18.6 End stage renal disease; I48.91 Unspecified atrial fibrillation; I42.9 Cardiomyopathy, unspecified; F41.9 Anxiety disorder, unspecified; I25.10 Atherosclerotic heart disease of native coronary artery without angina pectoris; F31.9 Bipolar disorder, unspecified; J44.9 Chronic obstructive pulmonary disease, unspecified; K21.9 Gastro-esophageal reflux disease without esophagitis; E78.5 Hyperlipidemia, unspecified; E03.9 Hypothyroidism, unspecified; I25.2 Old myocardial infarction; E78.00 Pure hypercholesterolemia, unspecified; E11.42 Type 2 diabetes mellitus with diabetic polyneuropathy; E11.51 Type 2 diabetes mellitus with diabetic peripheral angiopathy without gangrene; M17.12 Unilateral primary osteoarthritis, left knee; Z87.891 Personal history of nicotine dependence; Z79.899 Other long term (current) drug therapy; Z90.49 Acquired absence of other specified parts of digestive tract; Z79.01 Long term (current) use of anticoagulants; Z86.73 Personal history of transient ischemic attack (TIA), and cerebral infarction without residual deficits; Z95.5 Presence of coronary angioplasty implant and graft
CPT/HCPCS: 36415; 80048; 83735; 83880; 85025; 96365; 96366; G0463; J1250; J1642

== ENCOUNTER → 2020-03-13 | Outpatient (CLI) | payer OTHER ==
[2020-03-13] VITALS (9 sets, daily range): BP systolic 103–132; BP diastolic 53–69
[~2020-03-13] MED LIST changes: -CLOP75TA28 PO; +CYANOCOBALAMIN (B-12) 1000 MCG/1 ML VIAL IM ONE; +CYANOCOBALAMIN (B-12) 1000 MCG/1 ML VIAL ONE; -MAGN400T21 GT
== END | disposition home or self-care (01) ==
LOC: CHF HDHVI 07:58
PROVIDERS: ATTEND Internal Medicine Cardiovascular Disease
DX: I13.2 Hypertensive heart and chronic kidney disease with heart failure and with stage 5 chronic kidney disease, or end stage renal disease (principal); E11.22 Type 2 diabetes mellitus with diabetic chronic kidney disease; N18.6 End stage renal disease; I50.22 Chronic systolic (congestive) heart failure; I50.84 End stage heart failure; R53.83 Other fatigue; I48.11 Longstanding persistent atrial fibrillation; I42.8 Other cardiomyopathies; F41.9 Anxiety disorder, unspecified; I25.10 Atherosclerotic heart disease of native coronary artery without angina pectoris; I27.21 Secondary pulmonary arterial hypertension; I25.2 Old myocardial infarction; F31.9 Bipolar disorder, unspecified; J44.9 Chronic obstructive pulmonary disease, unspecified; K21.9 Gastro-esophageal reflux disease without esophagitis; E78.5 Hyperlipidemia, unspecified; E03.9 Hypothyroidism, unspecified; E78.00 Pure hypercholesterolemia, unspecified; E11.42 Type 2 diabetes mellitus with diabetic polyneuropathy; E11.51 Type 2 diabetes mellitus with diabetic peripheral angiopathy without gangrene; M17.12 Unilateral primary osteoarthritis, left knee; G89.29 Other chronic pain; E11.21 Type 2 diabetes mellitus with diabetic nephropathy; E11.319 Type 2 diabetes mellitus with unspecified diabetic retinopathy without macular edema; Z85.030 Personal history of malignant carcinoid tumor of large intestine; Z90.49 Acquired absence of other specified parts of digestive tract; Z79.01 Long term (current) use of anticoagulants; Z85.060 Personal history of malignant carcinoid tumor of small intestine; Z85.810 Personal history of malignant neoplasm of tongue; Z85.46 Personal history of malignant neoplasm of prostate; Z95.1 Presence of aortocoronary bypass graft; Z95.810 Presence of automatic (implantable) cardiac defibrillator; Z79.899 Other long term (current) drug therapy; Z87.891 Personal history of nicotine dependence; Z95.5 Presence of coronary angioplasty implant and graft
CPT/HCPCS: 96365; 96366; 96372; G0463; J1250; J1642; J3420

== ENCOUNTER → 2020-03-16 | Outpatient (CLI) | payer OTHER ==
[2020-03-16] VITALS (9 sets, daily range): BP systolic 102–129; BP diastolic 51–79
[~2020-03-16] MED LIST changes: +CLOP75TA28 PO; -CYANOCOBALAMIN (B-12) 1000 MCG/1 ML VIAL IM ONE; -CYANOCOBALAMIN (B-12) 1000 MCG/1 ML VIAL ONE; +MAGN400T21 GT
--- NOTE | 2020-03-16 08:00 | NUR ---
CHF PT ARRIVED TO THE CHF CLINIC FOR WEEKLY DOBUTAMINE INFUSION PER MD ORDERS. A/OX4. PT REPORTS THAT HE HAS HAD IN INCREASE AMOUNT OF PVCS OVER THE WEEKEND. LABS DRAWN AND SENT. PT HAS APPOINTMENT WITH [facility] TODAY AT 1150.
--- NOTE | 2020-03-16 08:09 | NUR ---
Ayah Cath Insertion 20 gauge Ayah Cath inserted using sterile technique in the R upper chest with occlusive dressing over saucedo needle. Patient tolerated procedure well. Ordered labs drawn and sent. See e-MAR for medications given during this visit. NOTE INSERTED BY JULIETA ALVAREZ
--- NOTE | 2020-03-16 08:13 | NUR ---
DOBUTAMINE INFUSION STARTED AT 5 MCG/KG/MIN PER MD ORDERS. VSS. WILL CONTINUE TO MONITOR.
[2020-03-16 08:48] LABS: Hemoglobin 14.2 g/dL (13.5-17.5); Mean Corpuscular Hemoglobin 32.5 pg (28.0-32.0); Mean Corpuscular Hgb Conc. 33.8 g/dL (32.0-36.0); Mean Corpuscular Volume 96.1 fL (80.0-100.0); Platelet Count (auto) 150 10^3/uL (140-450); Red Blood Cells 4.37 10^6/uL (4.5-5.90); Red Cell Distribution Width 13.3 % (11.8-14.3); White Blood Cell 3.9 10^3/uL (4.4-10.8)
[2020-03-16 09:00] LABS: Band Neutrophils % (manual) 0; Basophils % (manual) 0 (0.0-2.0); Blast Cells 0; Metamyelocytes % 0; Myelocytes % 0; Promyelocytes % 0; Reactive Lymphocytes 0
[2020-03-16 09:07] LABS: BUN/Creatinine Ratio 14.7; Calcium 8.7 mg/dL (8.5-10.1); Magnesium 2.5 mg/dL (1.6-2.6); Potassium 3.9 mmol/L (3.5-5.1)
[2020-03-16 09:24] LABS: Eosinophils % (manual) 3 (0-7); Lymphocytes % (manual) 36 (10.0-50.0); Monocytes % (manual) 22 (0-12)
--- NOTE | 2020-03-16 09:42 | NUR ---
PT TOLERATING DOBUTAMINE INFUSION. INFUSION SITE BENIGN. VSS. WILL CONTINUE TO MONITOR.
--- NOTE | 2020-03-16 10:00 | NUR ---
PT ESCORTED TO BACK OFFICE FOR APPOINTMENT WITH . [facility]U PAUSED
--- NOTE | 2020-03-16 10:21 | NUR ---
PT RETURNED FROM [facility] IN BACK OFFICE. VSS. DOBUTAMINE INFUSION RESUMED.
--- NOTE | 2020-03-16 11:47 | NUR ---
Discharge Instructions See e-MAR for any mediations given with this visit. Patient education given on disease process. Patient verbalized understanding. Previous labs reviewed. Patient discharged in stable condition with after care instructions and follow up appointment. WILL RETURN TO CLINIC WED FOR F/U. PT TO HAVE ECHO AND HOLTER MONITOR APPOINTMENTS PER MD ORDERS. NOTE DOBUTAMINE IV [id number]: [id number] ADMIN BY JULIETA ALVAREZ HEPARIN IVP ADMIN BY JULIETA ALVAREZ
== END | disposition home or self-care (01) ==
LOC: CHF HDHVI 08:02
PROVIDERS: ATTEND Internal Medicine Cardiovascular Disease
DX: I13.2 Hypertensive heart and chronic kidney disease with heart failure and with stage 5 chronic kidney disease, or end stage renal disease (principal); E11.22 Type 2 diabetes mellitus with diabetic chronic kidney disease; N18.6 End stage renal disease; I50.22 Chronic systolic (congestive) heart failure; I50.84 End stage heart failure; R00.2 Palpitations; I25.10 Atherosclerotic heart disease of native coronary artery without angina pectoris; I48.11 Longstanding persistent atrial fibrillation; I27.21 Secondary pulmonary arterial hypertension; I25.2 Old myocardial infarction; I42.8 Other cardiomyopathies; F41.9 Anxiety disorder, unspecified; F31.9 Bipolar disorder, unspecified; J44.9 Chronic obstructive pulmonary disease, unspecified; K21.9 Gastro-esophageal reflux disease without esophagitis; E78.5 Hyperlipidemia, unspecified; E03.9 Hypothyroidism, unspecified; G89.29 Other chronic pain; E78.00 Pure hypercholesterolemia, unspecified; E11.21 Type 2 diabetes mellitus with diabetic nephropathy; E11.42 Type 2 diabetes mellitus with diabetic polyneuropathy; E11.51 Type 2 diabetes mellitus with diabetic peripheral angiopathy without gangrene; E11.319 Type 2 diabetes mellitus with unspecified diabetic retinopathy without macular edema; M19.90 Unspecified osteoarthritis, unspecified site; Z86.73 Personal history of transient ischemic attack (TIA), and cerebral infarction without residual deficits; Z79.899 Other long term (current) drug therapy; Z90.49 Acquired absence of other specified parts of digestive tract; Z85.030 Personal history of malignant carcinoid tumor of large intestine; Z85.060 Personal history of malignant carcinoid tumor of small intestine; Z85.810 Personal history of malignant neoplasm of tongue; Z85.46 Personal history of malignant neoplasm of prostate; Z95.1 Presence of aortocoronary bypass graft; Z95.810 Presence of automatic (implantable) cardiac defibrillator; Z87.891 Personal history of nicotine dependence; Z95.5 Presence of coronary angioplasty implant and graft; Z79.01 Long term (current) use of anticoagulants
CPT/HCPCS: 36415; 80048; 83735; 83880; 85007; 85027; 96365; 96366; G0463; J1250; J1642

== ENCOUNTER → 2020-03-18 | Outpatient (CLI) | payer OTHER ==
[~2020-03-18] VITALS: Ht 30.5 cm; Wt 88.2 kg
[2020-03-18] VITALS (9 sets, daily range): BP systolic 109–133; BP diastolic 54–70
[~2020-03-18] MED LIST changes: -CLOP75TA28 PO; -MAGN400T21 GT
--- NOTE | 2020-03-18 07:55 | NUR ---
CHF PT ARRIVED TO THE CHF CLINIC FOR WEEKLY DOBUTAMINE INFUSION PER MD ORDER. A/O X4. DISCUSSED BNP INCREASED TO 462.42 WITH PT. WILL CONTINUE TO MONITOR.
--- NOTE | 2020-03-18 08:11 | NUR ---
DOBUTAMINE INFUSION INFUSION STARTED @ 5 MCG/KG/MIN PER MD ORDERS. VSS. WILL CONTINUE TO MONITOR.
--- NOTE | 2020-03-18 10:00 | NUR ---
Patient resting comfortably in chair, breathing even and unlabored.
--- NOTE | 2020-03-18 11:18 | NUR ---
CHF CLINIC Discharge Instructions See e-MAR for any mediations given with this visit. Patient education given on disease process. Patient verbalized understanding. Previous labs reviewed. Patient discharged in stable condition with after care instructions and follow up appointment. Note Dobutamine [id number] admin by Cheyanne ALVAREZ. Heparin admin by Aisha ALVAREZ.
== END | disposition home or self-care (01) ==
LOC: CHF HDHVI 07:58
PROVIDERS: ATTEND Internal Medicine Cardiovascular Disease
DX: I13.2 Hypertensive heart and chronic kidney disease with heart failure and with stage 5 chronic kidney disease, or end stage renal disease (principal); E11.22 Type 2 diabetes mellitus with diabetic chronic kidney disease; I50.22 Chronic systolic (congestive) heart failure; N18.6 End stage renal disease; I25.10 Atherosclerotic heart disease of native coronary artery without angina pectoris; I25.2 Old myocardial infarction; I48.11 Longstanding persistent atrial fibrillation; I42.8 Other cardiomyopathies; J96.10 Chronic respiratory failure, unspecified whether with hypoxia or hypercapnia; F41.9 Anxiety disorder, unspecified; K21.9 Gastro-esophageal reflux disease without esophagitis; E78.5 Hyperlipidemia, unspecified; E11.51 Type 2 diabetes mellitus with diabetic peripheral angiopathy without gangrene; E11.42 Type 2 diabetes mellitus with diabetic polyneuropathy; E11.21 Type 2 diabetes mellitus with diabetic nephropathy; M19.90 Unspecified osteoarthritis, unspecified site; E11.319 Type 2 diabetes mellitus with unspecified diabetic retinopathy without macular edema; G89.29 Other chronic pain; E03.9 Hypothyroidism, unspecified; Z87.891 Personal history of nicotine dependence; Z95.810 Presence of automatic (implantable) cardiac defibrillator; Z85.030 Personal history of malignant carcinoid tumor of large intestine; Z85.46 Personal history of malignant neoplasm of prostate; Z90.49 Acquired absence of other specified parts of digestive tract; Z85.810 Personal history of malignant neoplasm of tongue; Z79.899 Other long term (current) drug therapy; Z86.73 Personal history of transient ischemic attack (TIA), and cerebral infarction without residual deficits
CPT/HCPCS: 96365; 96366; G0463; J1250; J1642

== ENCOUNTER → 2020-03-20 | Outpatient (CLI) | payer OTHER ==
[2020-03-20] VITALS (9 sets, daily range): BP systolic 93–124; BP diastolic 46–69
== END | disposition home or self-care (01) ==
LOC: CHF HDHVI 08:04
PROVIDERS: ATTEND Internal Medicine Cardiovascular Disease
DX: I13.2 Hypertensive heart and chronic kidney disease with heart failure and with stage 5 chronic kidney disease, or end stage renal disease (principal); E11.22 Type 2 diabetes mellitus with diabetic chronic kidney disease; N18.6 End stage renal disease; I50.84 End stage heart failure; I50.22 Chronic systolic (congestive) heart failure; I25.10 Atherosclerotic heart disease of native coronary artery without angina pectoris; I42.8 Other cardiomyopathies; I48.11 Longstanding persistent atrial fibrillation; I25.2 Old myocardial infarction; I27.21 Secondary pulmonary arterial hypertension; R53.83 Other fatigue; F41.9 Anxiety disorder, unspecified; K21.9 Gastro-esophageal reflux disease without esophagitis; E78.5 Hyperlipidemia, unspecified; E03.9 Hypothyroidism, unspecified; M19.90 Unspecified osteoarthritis, unspecified site; G89.29 Other chronic pain; E11.21 Type 2 diabetes mellitus with diabetic nephropathy; E11.51 Type 2 diabetes mellitus with diabetic peripheral angiopathy without gangrene; E78.00 Pure hypercholesterolemia, unspecified; E11.319 Type 2 diabetes mellitus with unspecified diabetic retinopathy without macular edema; Z79.01 Long term (current) use of anticoagulants; Z95.5 Presence of coronary angioplasty implant and graft; Z79.899 Other long term (current) drug therapy; Z85.030 Personal history of malignant carcinoid tumor of large intestine; Z85.810 Personal history of malignant neoplasm of tongue; Z90.49 Acquired absence of other specified parts of digestive tract; Z85.46 Personal history of malignant neoplasm of prostate; Z87.891 Personal history of nicotine dependence; Z95.810 Presence of automatic (implantable) cardiac defibrillator; Z86.73 Personal history of transient ischemic attack (TIA), and cerebral infarction without residual deficits
CPT/HCPCS: 96365; 96366; G0463; J1250; J1642

== ENCOUNTER → 2020-03-23 | Outpatient (CLI) | payer OTHER ==
[2020-03-23] VITALS (9 sets, daily range): BP systolic 101–119; BP diastolic 49–69
--- NOTE | 2020-03-23 08:00 | NUR ---
Pt in clinic for scheduled infusion as ordered by . Pt AAOx4, ambulatory, breathing even and unlabored.
--- NOTE | 2020-03-23 08:53 | NUR ---
Medication Infusion started as documented in eMAR, will continue to monitor.
--- NOTE | 2020-03-23 10:46 | NUR ---
Patient resting comfortably in chair, will continue to monitor.
--- NOTE | 2020-03-23 11:54 | NUR ---
Ayah Cath Removal Quinones needle D/C'd by Anne ALVAREZ after Heparin flush per protocol. See e-MAR for medications given during this visit. Sterile occlusive dressing to site. Patient tolerated procedure well. Site benign post infusion.
--- NOTE | 2020-03-23 11:55 | NUR ---
CHF Clinic Discharge Instructions See e-MAR for any mediations given with this visit. Patient education given on disease process. Patient verbalized understanding. Previous labs reviewed. Patient discharged in stable condition with after care instructions and follow up appointment. Note Dobutamine [id number] admin by Roscoe ALVAREZ. Heparin admin by Anne ALVAREZ.
== END | disposition home or self-care (01) ==
LOC: CHF HDHVI 08:09
PROVIDERS: ATTEND Internal Medicine Cardiovascular Disease
DX: I13.2 Hypertensive heart and chronic kidney disease with heart failure and with stage 5 chronic kidney disease, or end stage renal disease (principal); E11.22 Type 2 diabetes mellitus with diabetic chronic kidney disease; N18.6 End stage renal disease; I50.22 Chronic systolic (congestive) heart failure; I50.84 End stage heart failure; I48.11 Longstanding persistent atrial fibrillation; R53.83 Other fatigue; I25.10 Atherosclerotic heart disease of native coronary artery without angina pectoris; I27.21 Secondary pulmonary arterial hypertension; I25.2 Old myocardial infarction; F41.9 Anxiety disorder, unspecified; K21.9 Gastro-esophageal reflux disease without esophagitis; E78.5 Hyperlipidemia, unspecified; E03.9 Hypothyroidism, unspecified; G89.29 Other chronic pain; E78.00 Pure hypercholesterolemia, unspecified; E11.21 Type 2 diabetes mellitus with diabetic nephropathy; E11.51 Type 2 diabetes mellitus with diabetic peripheral angiopathy without gangrene; E11.319 Type 2 diabetes mellitus with unspecified diabetic retinopathy without macular edema; M19.90 Unspecified osteoarthritis, unspecified site; E11.42 Type 2 diabetes mellitus with diabetic polyneuropathy; F31.9 Bipolar disorder, unspecified; J44.9 Chronic obstructive pulmonary disease, unspecified; Z95.1 Presence of aortocoronary bypass graft; Z90.49 Acquired absence of other specified parts of digestive tract; Z85.46 Personal history of malignant neoplasm of prostate; Z79.899 Other long term (current) drug therapy; Z85.030 Personal history of malignant carcinoid tumor of large intestine; Z85.810 Personal history of malignant neoplasm of tongue; Z87.891 Personal history of nicotine dependence; Z95.810 Presence of automatic (implantable) cardiac defibrillator; Z95.5 Presence of coronary angioplasty implant and graft; Z86.73 Personal history of transient ischemic attack (TIA), and cerebral infarction without residual deficits; Z79.01 Long term (current) use of anticoagulants
CPT/HCPCS: 83880; 96365; 96366; G0463; J1250; J1642

== ENCOUNTER → 2020-03-25 | Outpatient (CLI) | payer OTHER ==
[2020-03-25] VITALS (9 sets, daily range): BP systolic 94–119; BP diastolic 46–63
--- NOTE | 2020-03-25 08:00 | NUR ---
CHF PT ARRIVED TO THE CHF CLINIC FOR WEEKLY DOBUTAMINE INFUSION PER MD ORDERS. A/O X4
--- NOTE | 2020-03-25 08:13 | NUR ---
DOBUTAMINE INFUSION STARTED @ 5 MCG/KG/MIN PER MD ORDERS. VSS. WILL CONTINUE TO MONITOR.
--- NOTE | 2020-03-25 10:20 | NUR ---
PT TOLERATING DOBUTAMINE INFUSION. INFUSION SITE BENIGN. VSS. WILL CONTINUE TO MONITOR.
--- NOTE | 2020-03-25 11:18 | NUR ---
Ayah Cath Removal Quinones needle D/C'd after Heparin flush per protocol. See e-MAR for medications given during this visit. Sterile occlusive dressing to site. Patient tolerated procedure well. Site benign post infusion. NOTE REMOVED BY KEATON ALVAREZ
--- NOTE | 2020-03-25 11:20 | NUR ---
Discharge Instructions See e-MAR for any mediations given with this visit. Patient education given on disease process. Patient verbalized understanding. Previous labs reviewed. Patient discharged in stable condition with after care instructions and follow up appointment. WILL RETURN TO CLINIC ON MONDAY FOR NEXT TREATMENT PER MD. NOTE DOBUTAMINE IV [id number] ADMIN BY GISELA ALVAREZ HEPARIN IVP ADMIN BY KEATON ALVAREZ
== END | disposition home or self-care (01) ==
LOC: CHF HDHVI 08:05
PROVIDERS: ATTEND Internal Medicine Cardiovascular Disease
DX: I13.2 Hypertensive heart and chronic kidney disease with heart failure and with stage 5 chronic kidney disease, or end stage renal disease (principal); E11.22 Type 2 diabetes mellitus with diabetic chronic kidney disease; N18.6 End stage renal disease; I50.22 Chronic systolic (congestive) heart failure; I50.84 End stage heart failure; I42.8 Other cardiomyopathies; I48.11 Longstanding persistent atrial fibrillation; R53.83 Other fatigue; I25.10 Atherosclerotic heart disease of native coronary artery without angina pectoris; I27.21 Secondary pulmonary arterial hypertension; I25.2 Old myocardial infarction; F41.9 Anxiety disorder, unspecified; F31.9 Bipolar disorder, unspecified; J44.9 Chronic obstructive pulmonary disease, unspecified; K21.9 Gastro-esophageal reflux disease without esophagitis; E78.5 Hyperlipidemia, unspecified; E78.00 Pure hypercholesterolemia, unspecified; E11.42 Type 2 diabetes mellitus with diabetic polyneuropathy; E11.51 Type 2 diabetes mellitus with diabetic peripheral angiopathy without gangrene; E11.319 Type 2 diabetes mellitus with unspecified diabetic retinopathy without macular edema; M19.90 Unspecified osteoarthritis, unspecified site; G89.29 Other chronic pain; Z90.49 Acquired absence of other specified parts of digestive tract; Z79.01 Long term (current) use of anticoagulants; Z95.1 Presence of aortocoronary bypass graft; Z79.899 Other long term (current) drug therapy; Z85.030 Personal history of malignant carcinoid tumor of large intestine; Z85.810 Personal history of malignant neoplasm of tongue; Z85.46 Personal history of malignant neoplasm of prostate; Z87.891 Personal history of nicotine dependence; Z95.810 Presence of automatic (implantable) cardiac defibrillator; Z95.5 Presence of coronary angioplasty implant and graft; Z86.73 Personal history of transient ischemic attack (TIA), and cerebral infarction without residual deficits
CPT/HCPCS: 96365; 96366; G0463; J1250; J1642

== ENCOUNTER → 2020-03-27 | Outpatient (CLI) | payer OTHER ==
[2020-03-27] VITALS (9 sets, daily range): BP systolic 91–118; BP diastolic 47–68
== END | disposition home or self-care (01) ==
LOC: CHF HDHVI 08:07
PROVIDERS: ATTEND Internal Medicine Cardiovascular Disease
DX: I13.2 Hypertensive heart and chronic kidney disease with heart failure and with stage 5 chronic kidney disease, or end stage renal disease (principal); E11.22 Type 2 diabetes mellitus with diabetic chronic kidney disease; N18.6 End stage renal disease; I50.22 Chronic systolic (congestive) heart failure; I50.84 End stage heart failure; I25.10 Atherosclerotic heart disease of native coronary artery without angina pectoris; I42.8 Other cardiomyopathies; I48.91 Unspecified atrial fibrillation; I27.21 Secondary pulmonary arterial hypertension; I25.2 Old myocardial infarction; F41.9 Anxiety disorder, unspecified; F31.9 Bipolar disorder, unspecified; J44.9 Chronic obstructive pulmonary disease, unspecified; K21.9 Gastro-esophageal reflux disease without esophagitis; E78.5 Hyperlipidemia, unspecified; E03.9 Hypothyroidism, unspecified; E78.00 Pure hypercholesterolemia, unspecified; E11.42 Type 2 diabetes mellitus with diabetic polyneuropathy; E11.21 Type 2 diabetes mellitus with diabetic nephropathy; E11.319 Type 2 diabetes mellitus with unspecified diabetic retinopathy without macular edema; M19.90 Unspecified osteoarthritis, unspecified site; Z79.899 Other long term (current) drug therapy; Z85.030 Personal history of malignant carcinoid tumor of large intestine; Z85.810 Personal history of malignant neoplasm of tongue; Z86.73 Personal history of transient ischemic attack (TIA), and cerebral infarction without residual deficits; Z85.46 Personal history of malignant neoplasm of prostate; Z87.891 Personal history of nicotine dependence; Z90.49 Acquired absence of other specified parts of digestive tract; Z95.5 Presence of coronary angioplasty implant and graft; Z95.810 Presence of automatic (implantable) cardiac defibrillator; Z79.01 Long term (current) use of anticoagulants
CPT/HCPCS: 96365; 96366; G0463; J1250; J1642

== ENCOUNTER → 2020-03-30 | Outpatient (CLI) | payer OTHER ==
[2020-03-30] VITALS (9 sets, daily range): BP systolic 100–137; BP diastolic 48–69
--- NOTE | 2020-03-30 08:00 | NUR ---
Patient into clinic for scheduled infusion. Patient AAOx4, ambulatory, breathing even and unlabored.
--- NOTE | 2020-03-30 08:30 | NUR ---
6MWT Patient completed 6MWT, patient has no change in distance, metoprolol decreased to 25mg since last test. Patient states sob at 1 after test.
--- NOTE | 2020-03-30 10:00 | NUR ---
Patient resting in chair comfortably, talking with other patients, will continue to monitor.
--- NOTE | 2020-03-30 11:50 | NUR ---
CHF Clinic Discharge Instructions See e-MAR for any mediations given with this visit. Patient education given on disease process. Patient verbalized understanding. Previous labs reviewed. Patient discharged in stable condition with after care instructions and follow up appointment. Note Dobutamine [id number] admin by Aisha ALVAREZ. Heparin admin by Aisha ALVAREZ. 6 MWT admin by Ernestina CABRAL.
== END | disposition home or self-care (01) ==
LOC: CHF HDHVI 08:10
PROVIDERS: ATTEND Internal Medicine Cardiovascular Disease
DX: I13.2 Hypertensive heart and chronic kidney disease with heart failure and with stage 5 chronic kidney disease, or end stage renal disease (principal); I50.84 End stage heart failure; I50.22 Chronic systolic (congestive) heart failure; I50.9 Heart failure, unspecified; R53.83 Other fatigue; I48.91 Unspecified atrial fibrillation; N18.6 End stage renal disease; F41.9 Anxiety disorder, unspecified; F31.9 Bipolar disorder, unspecified; Z79.899 Other long term (current) drug therapy; Z90.49 Acquired absence of other specified parts of digestive tract; I25.10 Atherosclerotic heart disease of native coronary artery without angina pectoris; E78.5 Hyperlipidemia, unspecified; E03.9 Hypothyroidism, unspecified; E11.22 Type 2 diabetes mellitus with diabetic chronic kidney disease; E11.40 Type 2 diabetes mellitus with diabetic neuropathy, unspecified; E11.319 Type 2 diabetes mellitus with unspecified diabetic retinopathy without macular edema; E11.51 Type 2 diabetes mellitus with diabetic peripheral angiopathy without gangrene; G89.29 Other chronic pain; I25.2 Old myocardial infarction; Z95.810 Presence of automatic (implantable) cardiac defibrillator; Z79.01 Long term (current) use of anticoagulants; J44.9 Chronic obstructive pulmonary disease, unspecified
CPT/HCPCS: 93306; 94618; 96365; 96366; G0463; J1250; J1642

== ENCOUNTER → 2020-04-01 | Outpatient (CLI) | payer OTHER ==
[2020-04-01] VITALS (9 sets, daily range): BP systolic 94–116; BP diastolic 47–61
[~2020-04-01] VITALS: Ht 30.5 cm; Wt 88.3 kg
--- NOTE | 2020-04-01 08:00 | NUR ---
CHF PT ARRIVED TO THE CHF CLINIC FOR WEEKLY DOBUTAMINE INFUSION PER MD ORDER. A/O X4. PT HAD ECHO DONE ON 03/30/20 AND MAINTAINING A STEADY WT.
--- NOTE | 2020-04-01 08:20 | NUR ---
DOBUTAMINE INFUSION STARTED @ 5 MCG/KG/MIN PER MD ORDERS. VSS. WILL CONTINUE TO MONITOR.
--- NOTE | 2020-04-01 09:55 | NUR ---
PT TOLERATING DOBUTAMINE INFUSION. IV SITE BENIGN. VSS. WILL CONTINUE TO MONITOR.
--- NOTE | 2020-04-01 11:29 | NUR ---
Discharge Instructions See e-MAR for any mediations given with this visit. Patient education given on disease process. Patient verbalized understanding. Previous labs reviewed. Patient discharged in stable condition with after care instructions and follow up appointment. WILL RETURN TO CLINIC MONDAY PER MD ORDER. NOTE DOBUTAMINE IV [id number] ADMIN BY GISELA ALVAREZ HEPARIN IVP ADMIN BY JULIETA ALVAREZ
== END | disposition home or self-care (01) ==
LOC: CHF HDHVI 08:20
PROVIDERS: ATTEND Internal Medicine Cardiovascular Disease
DX: I13.2 Hypertensive heart and chronic kidney disease with heart failure and with stage 5 chronic kidney disease, or end stage renal disease (principal); E11.22 Type 2 diabetes mellitus with diabetic chronic kidney disease; N18.6 End stage renal disease; I50.22 Chronic systolic (congestive) heart failure; I50.84 End stage heart failure; R53.83 Other fatigue; I25.10 Atherosclerotic heart disease of native coronary artery without angina pectoris; I48.11 Longstanding persistent atrial fibrillation; I42.8 Other cardiomyopathies; I25.2 Old myocardial infarction; F31.9 Bipolar disorder, unspecified; F41.9 Anxiety disorder, unspecified; J44.9 Chronic obstructive pulmonary disease, unspecified; E78.5 Hyperlipidemia, unspecified; E03.9 Hypothyroidism, unspecified; E11.42 Type 2 diabetes mellitus with diabetic polyneuropathy; E11.51 Type 2 diabetes mellitus with diabetic peripheral angiopathy without gangrene; E11.319 Type 2 diabetes mellitus with unspecified diabetic retinopathy without macular edema; K21.9 Gastro-esophageal reflux disease without esophagitis; E78.00 Pure hypercholesterolemia, unspecified; E11.21 Type 2 diabetes mellitus with diabetic nephropathy; M19.90 Unspecified osteoarthritis, unspecified site; Z79.899 Other long term (current) drug therapy; Z90.49 Acquired absence of other specified parts of digestive tract; Z79.01 Long term (current) use of anticoagulants; Z95.1 Presence of aortocoronary bypass graft; Z85.030 Personal history of malignant carcinoid tumor of large intestine; Z85.810 Personal history of malignant neoplasm of tongue; Z85.46 Personal history of malignant neoplasm of prostate; Z87.891 Personal history of nicotine dependence; Z95.5 Presence of coronary angioplasty implant and graft; Z86.73 Personal history of transient ischemic attack (TIA), and cerebral infarction without residual deficits; Z95.810 Presence of automatic (implantable) cardiac defibrillator
CPT/HCPCS: 36415; 82565; 83880; 84132; 84520; 96365; 96366; G0463; J1250; J1642

== ENCOUNTER → 2020-04-03 | Outpatient (CLI) | payer OTHER ==
[2020-04-03] VITALS (9 sets, daily range): BP systolic 100–130; BP diastolic 48–68
== END | disposition home or self-care (01) ==
LOC: CHF HDHVI 08:04
PROVIDERS: ATTEND Internal Medicine Cardiovascular Disease
DX: I13.2 Hypertensive heart and chronic kidney disease with heart failure and with stage 5 chronic kidney disease, or end stage renal disease (principal); E11.42 Type 2 diabetes mellitus with diabetic polyneuropathy; N18.6 End stage renal disease; I50.22 Chronic systolic (congestive) heart failure; I50.84 End stage heart failure; R53.83 Other fatigue; I25.10 Atherosclerotic heart disease of native coronary artery without angina pectoris; I48.11 Longstanding persistent atrial fibrillation; I25.2 Old myocardial infarction; I42.8 Other cardiomyopathies; I27.21 Secondary pulmonary arterial hypertension; F41.9 Anxiety disorder, unspecified; F31.9 Bipolar disorder, unspecified; J44.9 Chronic obstructive pulmonary disease, unspecified; K21.9 Gastro-esophageal reflux disease without esophagitis; E78.5 Hyperlipidemia, unspecified; E03.9 Hypothyroidism, unspecified; E78.00 Pure hypercholesterolemia, unspecified; E11.22 Type 2 diabetes mellitus with diabetic chronic kidney disease; E11.51 Type 2 diabetes mellitus with diabetic peripheral angiopathy without gangrene; E11.319 Type 2 diabetes mellitus with unspecified diabetic retinopathy without macular edema; M19.90 Unspecified osteoarthritis, unspecified site; Z79.899 Other long term (current) drug therapy; Z85.030 Personal history of malignant carcinoid tumor of large intestine; Z90.49 Acquired absence of other specified parts of digestive tract; Z85.810 Personal history of malignant neoplasm of tongue; Z79.01 Long term (current) use of anticoagulants; Z85.46 Personal history of malignant neoplasm of prostate; Z87.891 Personal history of nicotine dependence; Z95.810 Presence of automatic (implantable) cardiac defibrillator; Z86.73 Personal history of transient ischemic attack (TIA), and cerebral infarction without residual deficits
CPT/HCPCS: 96365; 96366; G0463; J1250; J1642

== ENCOUNTER → 2020-04-06 | Outpatient (CLI) | payer OTHER ==
[~2020-04-06] VITALS: Ht 30.5 cm; Wt 88.9 kg
[2020-04-06] VITALS (9 sets, daily range): BP systolic 92–127; BP diastolic 47–67
[2020-04-06 12:09] LABS: Potassium 3.7 mmol/L (3.5-5.1)
== END | disposition home or self-care (01) ==
LOC: CHF HDHVI 08:16
PROVIDERS: ATTEND Internal Medicine Cardiovascular Disease
DX: I13.2 Hypertensive heart and chronic kidney disease with heart failure and with stage 5 chronic kidney disease, or end stage renal disease (principal); E11.22 Type 2 diabetes mellitus with diabetic chronic kidney disease; N18.6 End stage renal disease; I50.22 Chronic systolic (congestive) heart failure; I50.84 End stage heart failure; I25.10 Atherosclerotic heart disease of native coronary artery without angina pectoris; I48.11 Longstanding persistent atrial fibrillation; I25.2 Old myocardial infarction; I42.8 Other cardiomyopathies; I27.21 Secondary pulmonary arterial hypertension; R53.83 Other fatigue; F41.9 Anxiety disorder, unspecified; J44.9 Chronic obstructive pulmonary disease, unspecified; K21.9 Gastro-esophageal reflux disease without esophagitis; E78.5 Hyperlipidemia, unspecified; E03.9 Hypothyroidism, unspecified; E78.00 Pure hypercholesterolemia, unspecified; E11.42 Type 2 diabetes mellitus with diabetic polyneuropathy; E11.51 Type 2 diabetes mellitus with diabetic peripheral angiopathy without gangrene; M19.90 Unspecified osteoarthritis, unspecified site; E11.21 Type 2 diabetes mellitus with diabetic nephropathy; Z95.1 Presence of aortocoronary bypass graft; Z79.01 Long term (current) use of anticoagulants; Z90.49 Acquired absence of other specified parts of digestive tract; Z79.899 Other long term (current) drug therapy; Z95.810 Presence of automatic (implantable) cardiac defibrillator; Z85.810 Personal history of malignant neoplasm of tongue; Z85.46 Personal history of malignant neoplasm of prostate; Z87.891 Personal history of nicotine dependence; Z85.030 Personal history of malignant carcinoid tumor of large intestine; Z86.73 Personal history of transient ischemic attack (TIA), and cerebral infarction without residual deficits
CPT/HCPCS: 36415; 82565; 83880; 84132; 84520; 96365; 96366; G0463; J1250; J1642

== ENCOUNTER → 2020-04-08 | Outpatient (CLI) | payer OTHER ==
[2020-04-08] VITALS (9 sets, daily range): BP systolic 98–117; BP diastolic 48–63
[~2020-04-08] MED LIST changes: +CLOP75TA28 PO; +MAGN400T21 GT
--- NOTE | 2020-04-08 07:59 | NUR ---
CHF PT ARRIVED TO THE CHF CLINIC FOR WEEKLY DOBUTAMINE INFUSION PER MD ORDERS. A/O X4.
--- NOTE | 2020-04-08 08:11 | NUR ---
DOBUTAMINE INFUSION STARTED @ 5 MCG/KG/MIN PER MD ORDERS. VSS. WILL CONTINUE TO MONITOR
--- NOTE | 2020-04-08 09:39 | NUR ---
PT TOLERATING DOBUTAMINE INFUSION. INFUSION SITE BENIGN. VSS. WILL CONTINUE TO MONITOR.
--- NOTE | 2020-04-08 11:15 | NUR ---
Ayah Cath Removal Quinones needle D/C'd after Heparin flush per protocol. See e-MAR for medications given during this visit. Sterile occlusive dressing to site. Patient tolerated procedure well. Site benign post infusion. WILL RETURN TO THE CLINIC ON MONDAY FOR NEXT TREATMENT PER MD ORDERS. DISCUSSED ECHO WITH PT AND PT GIVEN COPY. PT INCREASED ARGINEXT FROM ONCE DAILY TO BID SINCE PREVIOUS ECHO ON 10/09/2019. RVSP on echo DECREASED FROM 40mmHh TO 15mmHg NOTE DOBUTAMINE IV [id number] ADMIN BY GISELA ALVAREZ HEPARIN IVP ADMIN BY JULIETA ALVAREZ
--- NOTE | 2020-04-08 11:19 | NUR ---
Discharge Instructions See e-MAR for any mediations given with this visit. Patient education given on disease process. Patient verbalized understanding. Previous labs reviewed. Patient discharged in stable condition with after care instructions and follow up appointment. WILL RETURN TO THE CLINIC ON MONDAY FOR NEXT TREATMENT PER MD ORDERS. DISCUSSED ECHO WITH PT AND PT GIVEN COPY. PT INCREASED ARGINEXT FROM ONCE DAILY TO BID SINCE PREVIOUS ECHO ON 10/09/2019. RVSP on echo DECREASED FROM 40mmHh TO 15mmHg NOTE DOBUTAMINE IV [id number] ADMIN BY GISELA ALVAREZ HEPARIN IVP ADMIN BY JULIETA ALVAREZ
== END | disposition home or self-care (01) ==
LOC: CHF HDHVI 08:00
PROVIDERS: ATTEND Internal Medicine Cardiovascular Disease
DX: I13.2 Hypertensive heart and chronic kidney disease with heart failure and with stage 5 chronic kidney disease, or end stage renal disease (principal); E11.22 Type 2 diabetes mellitus with diabetic chronic kidney disease; N18.6 End stage renal disease; I50.22 Chronic systolic (congestive) heart failure; I50.84 End stage heart failure; I25.10 Atherosclerotic heart disease of native coronary artery without angina pectoris; I48.11 Longstanding persistent atrial fibrillation; I42.8 Other cardiomyopathies; I27.21 Secondary pulmonary arterial hypertension; I25.2 Old myocardial infarction; R53.83 Other fatigue; F41.9 Anxiety disorder, unspecified; F31.9 Bipolar disorder, unspecified; J44.9 Chronic obstructive pulmonary disease, unspecified; K21.9 Gastro-esophageal reflux disease without esophagitis; E78.5 Hyperlipidemia, unspecified; E03.9 Hypothyroidism, unspecified; E78.00 Pure hypercholesterolemia, unspecified; E11.42 Type 2 diabetes mellitus with diabetic polyneuropathy; E11.51 Type 2 diabetes mellitus with diabetic peripheral angiopathy without gangrene; M19.90 Unspecified osteoarthritis, unspecified site; Z79.899 Other long term (current) drug therapy; Z85.030 Personal history of malignant carcinoid tumor of large intestine; Z85.810 Personal history of malignant neoplasm of tongue; Z90.49 Acquired absence of other specified parts of digestive tract; Z87.891 Personal history of nicotine dependence; Z79.01 Long term (current) use of anticoagulants; Z95.1 Presence of aortocoronary bypass graft; Z95.810 Presence of automatic (implantable) cardiac defibrillator; Z86.73 Personal history of transient ischemic attack (TIA), and cerebral infarction without residual deficits
CPT/HCPCS: 96365; 96366; G0463; J1250; J1642

== ENCOUNTER → 2020-04-10 | Outpatient (CLI) | payer OTHER ==
[2020-04-10] VITALS (9 sets, daily range): BP systolic 106–128; BP diastolic 54–74
[~2020-04-10] MED LIST changes: -CLOP75TA28 PO; -MAGN400T21 GT
--- NOTE | 2020-04-10 08:01 | NUR ---
CHF PT ARRIVED TO THE CHF CLINIC FOR WEEKLY DOBUTAMINE TREATMENT PER MD ORDER. A/OX4.
--- NOTE | 2020-04-10 08:13 | NUR ---
DOBUTAMINE INFUSION STARTED @ 5MCG/KG/MIN PER MD ORDER. VSS. WILL CONTINUE TO MONITOR.
--- NOTE | 2020-04-10 10:06 | NUR ---
P TOLERATING DOBUTAMINE INFUSION. INFUSION SITE BENIGN. VSS. WILL CONTINUE TO MONITOR.
--- NOTE | 2020-04-10 11:19 | NUR ---
Discharge Instructions See e-MAR for any mediations given with this visit. Patient education given on disease process. Patient verbalized understanding. Previous labs reviewed. Patient discharged in stable condition with after care instructions and follow up appointment. WILL RETURN TO CLINIC ON MONDAY FOR F/U AND TREATMENT PER MD ORDERS. NOTE DOBUTAMINE IV [id number] ADMIN BY JULIETA ALVAREZ HEPARIN IVP ADMIN BY JULIETA ALVAREZ
== END | disposition home or self-care (01) ==
LOC: CHF HDHVI 08:14
PROVIDERS: ATTEND Internal Medicine Cardiovascular Disease
DX: I13.2 Hypertensive heart and chronic kidney disease with heart failure and with stage 5 chronic kidney disease, or end stage renal disease (principal); E11.22 Type 2 diabetes mellitus with diabetic chronic kidney disease; N18.6 End stage renal disease; I50.22 Chronic systolic (congestive) heart failure; I50.84 End stage heart failure; I42.8 Other cardiomyopathies; I48.11 Longstanding persistent atrial fibrillation; I25.2 Old myocardial infarction; I27.21 Secondary pulmonary arterial hypertension; R53.83 Other fatigue; F41.9 Anxiety disorder, unspecified; F31.9 Bipolar disorder, unspecified; J44.9 Chronic obstructive pulmonary disease, unspecified; K21.9 Gastro-esophageal reflux disease without esophagitis; E78.5 Hyperlipidemia, unspecified; E03.9 Hypothyroidism, unspecified; E78.00 Pure hypercholesterolemia, unspecified; E11.42 Type 2 diabetes mellitus with diabetic polyneuropathy; E11.51 Type 2 diabetes mellitus with diabetic peripheral angiopathy without gangrene; G89.29 Other chronic pain; M17.12 Unilateral primary osteoarthritis, left knee; Z79.899 Other long term (current) drug therapy; Z95.5 Presence of coronary angioplasty implant and graft; Z79.01 Long term (current) use of anticoagulants; Z85.030 Personal history of malignant carcinoid tumor of large intestine; Z85.810 Personal history of malignant neoplasm of tongue; Z87.891 Personal history of nicotine dependence; Z86.73 Personal history of transient ischemic attack (TIA), and cerebral infarction without residual deficits; Z90.49 Acquired absence of other specified parts of digestive tract
CPT/HCPCS: 96365; 96366; G0463; J1250; J1642

== ENCOUNTER → 2020-04-13 | Outpatient (CLI) | payer OTHER ==
[2020-04-13] VITALS (9 sets, daily range): BP systolic 89–113; BP diastolic 44–60
[~2020-04-13] MED LIST changes: +CYANOCOBALAMIN (B-12) 1000 MCG/1 ML VIAL IM ONE; +CYANOCOBALAMIN (B-12) 1000 MCG/1 ML VIAL ONE
[2020-04-13 12:10] LABS: Basophils # (auto) 0 10 ^3/uL (0-0.2); Basophils % (auto) 0.6 % (0.0-2.0); Eosinophils # (auto) 0.1 10 ^3/uL (0-0.8); Eosinophils % (auto) 2.3 % (0.0-7.0); Hematocrit 42.4 % (41.0-53.0); Hemoglobin 14.1 g/dL (13.5-17.5); Lymphocytes # (auto) 1.3 10 ^3/uL (0.4-5.4); Lymphocytes % (auto) 35.8 % (10.0-50.0); Mean Corpuscular Hemoglobin 31.9 pg (28.0-32.0); Mean Corpuscular Hgb Conc. 33.4 g/dL (32.0-36.0); Mean Corpuscular Volume 95.5 fL (80.0-100.0); Monocytes # (auto) 0.6 10 ^3/uL (0-1.3); Monocytes % (auto) 17.7 % (0.0-12.0); Neutrophils # (auto) 1.6 10 ^3/uL (1.6-8.6); Neutrophils % (auto) 43.6 % (37.0-80.0); Nucleated Red Blood Cells % 0.4 %; Platelet Count (auto) 139 10^3/uL (140-450); Red Blood Cells 4.43 10^6/uL (4.5-5.90); Red Cell Distribution Width 13.6 % (11.8-14.3); White Blood Cell 3.6 10^3/uL (4.4-10.8)
[2020-04-13 12:19] LABS: Potassium 4.1 mmol/L (3.5-5.1)
[2020-04-13 12:29] LABS: Albumin 3.5 g/dL (3.4-5.0); BUN/Creatinine Ratio 14.9; Bilirubin, Total 0.6 mg/dL (0.2-1.0); Calcium 8.5 mg/dL (8.5-10.1); Magnesium 2.5 mg/dL (1.6-2.6); Total Protein 6.8 g/dL (6.4-8.2)
== END | disposition home or self-care (01) ==
LOC: CHF HDHVI 08:10
PROVIDERS: ATTEND Internal Medicine Cardiovascular Disease
DX: I50.9 Heart failure, unspecified (principal)
CPT/HCPCS: 36415; 80053; 83735; 83880; 85025; 96365; 96366; 96372; G0463; J1250; J1642; J3420

== ENCOUNTER → 2020-04-15 | Outpatient (CLI) | payer OTHER ==
[~2020-04-15] MED LIST changes: -CYANOCOBALAMIN (B-12) 1000 MCG/1 ML VIAL IM ONE; -CYANOCOBALAMIN (B-12) 1000 MCG/1 ML VIAL ONE
--- NOTE | 2020-04-15 07:56 | NUR ---
CHF PT ARRIVED TO THE CHF CLINIC FOR WEEKLY DOBUTAMINE INFUSION PER MD ORDER. A/OX4, AMBULATORY. VSS.
[2020-04-15 08:12] VITALS: BP 103/59
--- NOTE | 2020-04-15 08:12 | NUR ---
DOBUTAMINE INFUSION STARTED @ 5MCG/KG/MIN PER MD ORDERS. VSS. WILL CONTINUE TO MONITOR.
[2020-04-15 08:30] VITALS: BP 88/43
[2020-04-15 08:45] VITALS: BP 87/41
[2020-04-15 09:00] VITALS: BP 87/42
[2020-04-15 09:30] VITALS: BP 94/44
--- NOTE | 2020-04-15 11:00 | NUR ---
PT TO BACK OFFICE FOR APPT WITH MD ENGLISH. VSS. AMBULATORY
--- NOTE | 2020-04-15 11:31 | NUR ---
PT RETURNED FROM APPT WITH MD ENGLISH. VVS DOBUTAMINE DRIP RESTARTED
[2020-04-15 11:58] VITALS: BP 121/65
--- NOTE | 2020-04-15 11:58 | NUR ---
Discharge Instructions See e-MAR for any mediations given with this visit. Patient education given on disease process. Patient verbalized understanding. Previous labs reviewed. Patient discharged in stable condition with after care instructions and follow up appointment. WILL RETURN TO CLINIC ON 04/17/20 FOR F/U AND TREATMENT PER MD ORDERS. NOTE DOBUTAMINE IV [id number] ADMIN BY GISELA ALVAREZ HEPARIN IVP ADMIN BY JULIETA ALVAREZ
== END | disposition home or self-care (01) ==
LOC: CHF HDHVI 08:02
PROVIDERS: ATTEND Internal Medicine Cardiovascular Disease
DX: I13.2 Hypertensive heart and chronic kidney disease with heart failure and with stage 5 chronic kidney disease, or end stage renal disease (principal); E11.22 Type 2 diabetes mellitus with diabetic chronic kidney disease; N18.6 End stage renal disease; I50.22 Chronic systolic (congestive) heart failure; I50.84 End stage heart failure; I42.8 Other cardiomyopathies; I48.11 Longstanding persistent atrial fibrillation; I25.2 Old myocardial infarction; I27.21 Secondary pulmonary arterial hypertension; J44.9 Chronic obstructive pulmonary disease, unspecified; K21.9 Gastro-esophageal reflux disease without esophagitis; R53.83 Other fatigue; E78.5 Hyperlipidemia, unspecified; E03.9 Hypothyroidism, unspecified; E78.00 Pure hypercholesterolemia, unspecified; E11.42 Type 2 diabetes mellitus with diabetic polyneuropathy; E11.51 Type 2 diabetes mellitus with diabetic peripheral angiopathy without gangrene; G89.29 Other chronic pain; M17.12 Unilateral primary osteoarthritis, left knee; F41.9 Anxiety disorder, unspecified; F31.9 Bipolar disorder, unspecified; Z79.899 Other long term (current) drug therapy; Z95.5 Presence of coronary angioplasty implant and graft; Z79.01 Long term (current) use of anticoagulants; Z85.030 Personal history of malignant carcinoid tumor of large intestine; Z85.810 Personal history of malignant neoplasm of tongue; Z87.891 Personal history of nicotine dependence; Z86.73 Personal history of transient ischemic attack (TIA), and cerebral infarction without residual deficits; Z90.49 Acquired absence of other specified parts of digestive tract
CPT/HCPCS: 96365; 96366; G0463; J1250; J1642

== ENCOUNTER → 2020-04-17 | Outpatient (CLI) | payer OTHER ==
[2020-04-17] VITALS (9 sets, daily range): BP systolic 99–124; BP diastolic 48–65
--- NOTE | 2020-04-17 08:00 | NUR ---
Patient into clinic for scheduled infusion. Patient AAOx4, ambulatory, breathing even and unlabored.
--- NOTE | 2020-04-17 09:40 | NUR ---
Patient sitting in chair, talking with other patients, denies any symptoms. Will continue to monitor.
--- NOTE | 2020-04-17 11:21 | NUR ---
Ayah Cath Removal Quinones needle D/C'd by Roscoe ALVAREZ after Heparin flush per protocol. See e-MAR for medications given during this visit. Sterile occlusive dressing to site. Patient tolerated procedure well. Site benign post infusion.
--- NOTE | 2020-04-17 11:25 | NUR ---
CHF Clinic Discharge Instructions See e-MAR for any mediations given with this visit. Patient education given on disease process. Patient verbalized understanding. Previous labs reviewed. Patient discharged in stable condition with after care instructions and follow up appointment. Note Dobutamine [id number] admin by Roscoe ALVAREZ. Heparin admin by Roscoe ALVAREZ.
== END | disposition home or self-care (01) ==
LOC: CHF HDHVI 08:08
PROVIDERS: ATTEND Internal Medicine Cardiovascular Disease
DX: I13.2 Hypertensive heart and chronic kidney disease with heart failure and with stage 5 chronic kidney disease, or end stage renal disease (principal); E11.22 Type 2 diabetes mellitus with diabetic chronic kidney disease; N18.6 End stage renal disease; I50.22 Chronic systolic (congestive) heart failure; I50.84 End stage heart failure; I25.10 Atherosclerotic heart disease of native coronary artery without angina pectoris; I48.11 Longstanding persistent atrial fibrillation; I25.2 Old myocardial infarction; I27.21 Secondary pulmonary arterial hypertension; F41.9 Anxiety disorder, unspecified; F31.9 Bipolar disorder, unspecified; J44.9 Chronic obstructive pulmonary disease, unspecified; K21.9 Gastro-esophageal reflux disease without esophagitis; R53.83 Other fatigue; E78.5 Hyperlipidemia, unspecified; E03.9 Hypothyroidism, unspecified; G89.29 Other chronic pain; E78.00 Pure hypercholesterolemia, unspecified; E11.42 Type 2 diabetes mellitus with diabetic polyneuropathy; E11.51 Type 2 diabetes mellitus with diabetic peripheral angiopathy without gangrene; M17.12 Unilateral primary osteoarthritis, left knee; Z95.5 Presence of coronary angioplasty implant and graft; Z95.1 Presence of aortocoronary bypass graft; Z95.810 Presence of automatic (implantable) cardiac defibrillator; Z85.46 Personal history of malignant neoplasm of prostate; Z90.49 Acquired absence of other specified parts of digestive tract; Z79.01 Long term (current) use of anticoagulants; Z79.899 Other long term (current) drug therapy; Z85.030 Personal history of malignant carcinoid tumor of large intestine; Z85.810 Personal history of malignant neoplasm of tongue; Z87.891 Personal history of nicotine dependence
CPT/HCPCS: 96365; 96366; G0463; J1250; J1642

== ENCOUNTER → 2020-04-21 | Outpatient (CLI) | payer OTHER ==
[2020-04-21] VITALS (9 sets, daily range): BP systolic 88–123; BP diastolic 43–67
--- NOTE | 2020-04-21 08:00 | NUR ---
CHF PT ARRIVED TO THE CHF CLINIC FOR WEEKLY DOBUTAMINE INFUSION PER MD ORDERS. A/OX4. AMBULATORY.
--- NOTE | 2020-04-21 08:19 | NUR ---
DOBUTAMINE INFUSION STARTED @ 5MCG/KG/MIN PER MD ORDERS. VSS. WILL CONTINUE TO MONITOR.
--- NOTE | 2020-04-21 10:09 | NUR ---
PT TOLERATING DOBUTAMINE INFUSION. INFUSION SITE BENIGN. VSS. WILL CONTINUE TO MONITOR
--- NOTE | 2020-04-21 11:25 | NUR ---
Discharge Instructions See e-MAR for any mediations given with this visit. Patient education given on disease process. Patient verbalized understanding. Previous labs reviewed. Patient discharged in stable condition with after care instructions and follow up appointment. PT WILL RETURN TO THE CLINIC ON MONDAY FOR F/U AND TREATMENT PER MD ORDERS. NOTE DOBUTAMINE IV [id number] ADMIN BY GISELA ALVAREZ HEPARIN IVP ADMIN BY JULIETA ALVAREZ
[2020-04-21 12:15] LABS: Calcium 8.3 mg/dL (8.5-10.1); Potassium 3.8 mmol/L (3.5-5.1)
[2020-04-21 12:16] LABS: BUN/Creatinine Ratio 13.5
== END | disposition home or self-care (01) ==
LOC: CHF HDHVI 08:05
PROVIDERS: ATTEND Internal Medicine Cardiovascular Disease
DX: I13.2 Hypertensive heart and chronic kidney disease with heart failure and with stage 5 chronic kidney disease, or end stage renal disease (principal); E11.22 Type 2 diabetes mellitus with diabetic chronic kidney disease; I50.22 Chronic systolic (congestive) heart failure; I50.84 End stage heart failure; N18.6 End stage renal disease; F41.9 Anxiety disorder, unspecified; I25.10 Atherosclerotic heart disease of native coronary artery without angina pectoris; F31.9 Bipolar disorder, unspecified; J44.9 Chronic obstructive pulmonary disease, unspecified; K21.9 Gastro-esophageal reflux disease without esophagitis; E78.5 Hyperlipidemia, unspecified; E03.9 Hypothyroidism, unspecified; I48.11 Longstanding persistent atrial fibrillation; I25.2 Old myocardial infarction; E78.00 Pure hypercholesterolemia, unspecified; E11.42 Type 2 diabetes mellitus with diabetic polyneuropathy; E11.51 Type 2 diabetes mellitus with diabetic peripheral angiopathy without gangrene; M17.12 Unilateral primary osteoarthritis, left knee; Z86.73 Personal history of transient ischemic attack (TIA), and cerebral infarction without residual deficits; Z79.899 Other long term (current) drug therapy; Z79.01 Long term (current) use of anticoagulants; Z87.891 Personal history of nicotine dependence; Z85.46 Personal history of malignant neoplasm of prostate; Z95.5 Presence of coronary angioplasty implant and graft
CPT/HCPCS: 36415; 80048; 83880; 96365; 96366; G0463; J1250; J1642

== ENCOUNTER → 2020-04-24 | Outpatient (CLI) | payer OTHER ==
[~2020-04-24] MED LIST changes: +CLOP75TA28 PO; +MAGN400T21 GT
[2020-04-24 11:30] VITALS: BP 131/76
== END | disposition home or self-care (01) ==
LOC: CHF HDHVI 08:06
PROVIDERS: ATTEND Internal Medicine Cardiovascular Disease
DX: I13.2 Hypertensive heart and chronic kidney disease with heart failure and with stage 5 chronic kidney disease, or end stage renal disease (principal); E11.22 Type 2 diabetes mellitus with diabetic chronic kidney disease; N18.6 End stage renal disease; I50.22 Chronic systolic (congestive) heart failure; I50.84 End stage heart failure; I25.10 Atherosclerotic heart disease of native coronary artery without angina pectoris; I48.11 Longstanding persistent atrial fibrillation; I25.2 Old myocardial infarction; I42.8 Other cardiomyopathies; F41.9 Anxiety disorder, unspecified; F31.9 Bipolar disorder, unspecified; J44.9 Chronic obstructive pulmonary disease, unspecified; K21.9 Gastro-esophageal reflux disease without esophagitis; E78.5 Hyperlipidemia, unspecified; E03.9 Hypothyroidism, unspecified; E78.00 Pure hypercholesterolemia, unspecified; E11.42 Type 2 diabetes mellitus with diabetic polyneuropathy; E11.51 Type 2 diabetes mellitus with diabetic peripheral angiopathy without gangrene; M17.12 Unilateral primary osteoarthritis, left knee; G89.29 Other chronic pain; E11.21 Type 2 diabetes mellitus with diabetic nephropathy; E11.319 Type 2 diabetes mellitus with unspecified diabetic retinopathy without macular edema; Z79.899 Other long term (current) drug therapy; Z85.46 Personal history of malignant neoplasm of prostate; Z87.891 Personal history of nicotine dependence; Z86.73 Personal history of transient ischemic attack (TIA), and cerebral infarction without residual deficits; Z95.1 Presence of aortocoronary bypass graft; Z90.49 Acquired absence of other specified parts of digestive tract; Z79.01 Long term (current) use of anticoagulants
CPT/HCPCS: 96365; 96366; G0463; J1250; J1642

== ENCOUNTER → 2020-04-27 | Outpatient (CLI) | payer OTHER ==
[2020-04-27] VITALS (9 sets, daily range): BP systolic 94–128; BP diastolic 47–76
[~2020-04-27] VITALS: Ht 30.5 cm; Wt 90.3 kg
[~2020-04-27] MED LIST changes: -CLOP75TA28 PO; -MAGN400T21 GT
== END | disposition home or self-care (01) ==
LOC: CHF HDHVI 08:32
PROVIDERS: ATTEND Internal Medicine Cardiovascular Disease
DX: I50.9 Heart failure, unspecified (principal)
CPT/HCPCS: 96365; 96366; G0463; J1250; J1642

== ENCOUNTER → 2020-04-29 | Outpatient (CLI) | payer OTHER ==
[~2020-04-29] VITALS: Ht 30.5 cm; Wt 90.0 kg
[~2020-04-29] MED LIST changes: +CATHFLO ACTIVASE (ALTEPLASE) 2 MG VIAL IV ONE; +CLOP75TA28 PO; -DOBUTamine 1000MCG/ML 250 ML IV ONE; +MAGN400T21 GT; +STERILE WATER 10 ML ONE
--- NOTE | 2020-04-29 07:59 | NUR ---
CHF PT ARRIVED TO THE CHF CLINIC FOR WEEKLY F/U AND TREATMENT PER MD ORDERS. A/OX4, AMBULATORY.
--- NOTE | 2020-04-29 08:14 | NUR ---
PER ORDERS CATHFLO ACTIVASE IN PORT. SEE EMAR
[2020-04-29 08:15] VITALS: BP 111/66
[2020-04-29 09:14] VITALS: BP 110/65
--- NOTE | 2020-04-29 10:14 | NUR ---
16CC OF WASTE WITHDRAWN FROM PORT. THEN LABS DRAWN AND SENT.
--- NOTE | 2020-04-29 10:20 | NUR ---
Ayah Cath Removal Quinones needle D/C'd after Heparin flush per protocol. See e-MAR for medications given during this visit. Sterile occlusive dressing to site. Patient tolerated procedure well. Site benign. NOTE REMOVED BY JULIETA ALVAREZ
[2020-04-29 10:23] VITALS: BP 114/71
--- NOTE | 2020-04-29 10:23 | NUR ---
Discharge Instructions See e-MAR for any mediations given with this visit. Patient education given on disease process. Patient verbalized understanding. Previous labs reviewed. Patient discharged in stable condition with after care instructions and follow up appointment. PT TO RETURN TO CLINIC ON MONDAY FOR F/U AND TREATMENT. NOTE CATHFLO ACTIVASE IVP ADMIN BY GISELA ALVAREZ
[2020-04-29 12:18] LABS: Basophils # (auto) 0 10 ^3/uL (0-0.2); Basophils % (auto) 0.5 % (0.0-2.0); Eosinophils # (auto) 0.1 10 ^3/uL (0-0.8); Hematocrit 40.9 % (41.0-53.0); Hemoglobin 13.9 g/dL (13.5-17.5); Lymphocytes # (auto) 1.2 10 ^3/uL (0.4-5.4); Lymphocytes % (auto) 36.8 % (10.0-50.0); Mean Corpuscular Hemoglobin 32.2 pg (28.0-32.0); Mean Corpuscular Hgb Conc. 34.1 g/dL (32.0-36.0); Mean Corpuscular Volume 94.5 fL (80.0-100.0); Monocytes # (auto) 0.6 10 ^3/uL (0-1.3); Neutrophils # (auto) 1.4 10 ^3/uL (1.6-8.6); Neutrophils % (auto) 41.7 % (37.0-80.0); Nucleated Red Blood Cells % 0.2 %; Platelet Count (auto) 166 10^3/uL (140-450); Red Blood Cells 4.32 10^6/uL (4.5-5.90); Red Cell Distribution Width 13.5 % (11.8-14.3); White Blood Cell 3.4 10^3/uL (4.4-10.8)
[2020-04-29 12:22] LABS: Calcium 8.6 mg/dL (8.5-10.1); Magnesium 2.7 mg/dL (1.6-2.6); Potassium 4.2 mmol/L (3.5-5.1)
[2020-04-29 12:24] LABS: BUN/Creatinine Ratio 14.7
== END | disposition home or self-care (01) ==
LOC: CHF HDHVI 07:55
PROVIDERS: ATTEND Internal Medicine Cardiovascular Disease
DX: I50.9 Heart failure, unspecified (principal); Z79.899 Other long term (current) drug therapy
CPT/HCPCS: 36415; 80048; 83735; 83880; 85025; 96374; G0463; J1642; J2997

== ENCOUNTER → 2020-05-01 | Outpatient (CLI) | payer OTHER ==
[~2020-05-01] VITALS: Ht 30.5 cm; Wt 89.4 kg
[2020-05-01] VITALS (9 sets, daily range): BP systolic 113–133; BP diastolic 58–75
[~2020-05-01] MED LIST changes: -CATHFLO ACTIVASE (ALTEPLASE) 2 MG VIAL IV ONE; -CLOP75TA28 PO; +DOBUTamine 1000MCG/ML 250 ML IV ONE; -MAGN400T21 GT; -STERILE WATER 10 ML ONE
== END | disposition home or self-care (01) ==
LOC: CHF HDHVI 07:59
PROVIDERS: ATTEND Internal Medicine Cardiovascular Disease
DX: I13.2 Hypertensive heart and chronic kidney disease with heart failure and with stage 5 chronic kidney disease, or end stage renal disease (principal); J44.9 Chronic obstructive pulmonary disease, unspecified; I50.22 Chronic systolic (congestive) heart failure; N18.6 End stage renal disease; I25.10 Atherosclerotic heart disease of native coronary artery without angina pectoris; I50.84 End stage heart failure; F31.9 Bipolar disorder, unspecified; K21.9 Gastro-esophageal reflux disease without esophagitis; E78.5 Hyperlipidemia, unspecified; E78.00 Pure hypercholesterolemia, unspecified; E03.9 Hypothyroidism, unspecified; I48.11 Longstanding persistent atrial fibrillation; E11.22 Type 2 diabetes mellitus with diabetic chronic kidney disease; E11.21 Type 2 diabetes mellitus with diabetic nephropathy; E11.42 Type 2 diabetes mellitus with diabetic polyneuropathy; E11.51 Type 2 diabetes mellitus with diabetic peripheral angiopathy without gangrene; I27.21 Secondary pulmonary arterial hypertension; M19.90 Unspecified osteoarthritis, unspecified site; J96.10 Chronic respiratory failure, unspecified whether with hypoxia or hypercapnia; Z90.49 Acquired absence of other specified parts of digestive tract; Z85.46 Personal history of malignant neoplasm of prostate; Z86.73 Personal history of transient ischemic attack (TIA), and cerebral infarction without residual deficits; Z79.01 Long term (current) use of anticoagulants; Z95.1 Presence of aortocoronary bypass graft; Z95.810 Presence of automatic (implantable) cardiac defibrillator; Z85.038 Personal history of other malignant neoplasm of large intestine
CPT/HCPCS: 96365; 96366; G0463; J1250; J1642

== ENCOUNTER → 2020-05-04 | Outpatient (CLI) | payer OTHER ==
[~2020-05-04] VITALS: Ht 30.5 cm; Wt 89.8 kg
[2020-05-04] VITALS (9 sets, daily range): BP systolic 98–112; BP diastolic 46–66
== END | disposition home or self-care (01) ==
LOC: CHF HDHVI 08:11
PROVIDERS: ATTEND Internal Medicine Cardiovascular Disease
DX: I13.2 Hypertensive heart and chronic kidney disease with heart failure and with stage 5 chronic kidney disease, or end stage renal disease (principal); I50.22 Chronic systolic (congestive) heart failure; I50.84 End stage heart failure; N18.6 End stage renal disease; K21.9 Gastro-esophageal reflux disease without esophagitis; F31.9 Bipolar disorder, unspecified; I25.10 Atherosclerotic heart disease of native coronary artery without angina pectoris; J44.9 Chronic obstructive pulmonary disease, unspecified; J96.10 Chronic respiratory failure, unspecified whether with hypoxia or hypercapnia; E78.5 Hyperlipidemia, unspecified; E03.9 Hypothyroidism, unspecified; I48.11 Longstanding persistent atrial fibrillation; E78.00 Pure hypercholesterolemia, unspecified; E11.22 Type 2 diabetes mellitus with diabetic chronic kidney disease; E11.21 Type 2 diabetes mellitus with diabetic nephropathy; E11.40 Type 2 diabetes mellitus with diabetic neuropathy, unspecified; E11.51 Type 2 diabetes mellitus with diabetic peripheral angiopathy without gangrene; E11.319 Type 2 diabetes mellitus with unspecified diabetic retinopathy without macular edema; E11.42 Type 2 diabetes mellitus with diabetic polyneuropathy; I25.2 Old myocardial infarction; G89.29 Other chronic pain; M17.12 Unilateral primary osteoarthritis, left knee; Z90.49 Acquired absence of other specified parts of digestive tract; Z79.01 Long term (current) use of anticoagulants; Z85.038 Personal history of other malignant neoplasm of large intestine; Z85.46 Personal history of malignant neoplasm of prostate; Z95.1 Presence of aortocoronary bypass graft; Z95.810 Presence of automatic (implantable) cardiac defibrillator; Z86.73 Personal history of transient ischemic attack (TIA), and cerebral infarction without residual deficits; Z79.899 Other long term (current) drug therapy
CPT/HCPCS: 96365; 96366; G0463; J1250; J1642

== ENCOUNTER → 2020-05-06 | Outpatient (CLI) | payer OTHER ==
[2020-05-06] VITALS (10 sets, daily range): BP systolic 102–134; BP diastolic 50–69
[~2020-05-06] VITALS: Ht 30.5 cm; Wt 89.4 kg
[~2020-05-06] MED LIST changes: +KETOROLAC TROMETH 30 MG/ML 1ML VIAL IM ONE; +KETOROLAC TROMETH 30 MG/ML 1ML VIAL IV ONE; +KETOROLAC TROMETH 60MG/2ML VIAL ONE
== END | disposition home or self-care (01) ==
LOC: CHF HDHVI 07:52
PROVIDERS: ATTEND Internal Medicine Cardiovascular Disease
DX: I13.2 Hypertensive heart and chronic kidney disease with heart failure and with stage 5 chronic kidney disease, or end stage renal disease (principal); E11.22 Type 2 diabetes mellitus with diabetic chronic kidney disease; I50.22 Chronic systolic (congestive) heart failure; N18.6 End stage renal disease; I48.11 Longstanding persistent atrial fibrillation; I42.9 Cardiomyopathy, unspecified; M54.9 Dorsalgia, unspecified; R53.83 Other fatigue; I25.10 Atherosclerotic heart disease of native coronary artery without angina pectoris; I25.2 Old myocardial infarction; J44.9 Chronic obstructive pulmonary disease, unspecified; E78.5 Hyperlipidemia, unspecified; E03.9 Hypothyroidism, unspecified; E11.51 Type 2 diabetes mellitus with diabetic peripheral angiopathy without gangrene; E11.42 Type 2 diabetes mellitus with diabetic polyneuropathy; E11.319 Type 2 diabetes mellitus with unspecified diabetic retinopathy without macular edema; F41.9 Anxiety disorder, unspecified; F31.9 Bipolar disorder, unspecified; Z90.49 Acquired absence of other specified parts of digestive tract; Z79.01 Long term (current) use of anticoagulants; Z85.46 Personal history of malignant neoplasm of prostate; Z85.810 Personal history of malignant neoplasm of tongue; Z79.899 Other long term (current) drug therapy; Z95.810 Presence of automatic (implantable) cardiac defibrillator
CPT/HCPCS: 96365; 96366; 96372; 96375; G0463; J1250; J1642; J1885

== ENCOUNTER → 2020-05-08 | Outpatient (CLI) | payer OTHER ==
[2020-05-08] VITALS (9 sets, daily range): BP systolic 101–118; BP diastolic 47–62
[~2020-05-08] MED LIST changes: -KETOROLAC TROMETH 30 MG/ML 1ML VIAL IM ONE; -KETOROLAC TROMETH 30 MG/ML 1ML VIAL IV ONE; -KETOROLAC TROMETH 60MG/2ML VIAL ONE
== END | disposition home or self-care (01) ==
LOC: CHF HDHVI 07:54
PROVIDERS: ATTEND Internal Medicine Cardiovascular Disease
DX: I13.2 Hypertensive heart and chronic kidney disease with heart failure and with stage 5 chronic kidney disease, or end stage renal disease (principal); E11.22 Type 2 diabetes mellitus with diabetic chronic kidney disease; N18.6 End stage renal disease; I50.22 Chronic systolic (congestive) heart failure; I25.10 Atherosclerotic heart disease of native coronary artery without angina pectoris; I48.11 Longstanding persistent atrial fibrillation; I25.2 Old myocardial infarction; I42.8 Other cardiomyopathies; F31.9 Bipolar disorder, unspecified; J44.9 Chronic obstructive pulmonary disease, unspecified; K21.9 Gastro-esophageal reflux disease without esophagitis; E78.5 Hyperlipidemia, unspecified; E03.9 Hypothyroidism, unspecified; G89.29 Other chronic pain; E78.00 Pure hypercholesterolemia, unspecified; E11.21 Type 2 diabetes mellitus with diabetic nephropathy; E11.42 Type 2 diabetes mellitus with diabetic polyneuropathy; E11.51 Type 2 diabetes mellitus with diabetic peripheral angiopathy without gangrene; E11.319 Type 2 diabetes mellitus with unspecified diabetic retinopathy without macular edema; M17.12 Unilateral primary osteoarthritis, left knee; F41.9 Anxiety disorder, unspecified; R53.83 Other fatigue; Z87.891 Personal history of nicotine dependence; Z95.5 Presence of coronary angioplasty implant and graft; Z85.810 Personal history of malignant neoplasm of tongue; Z90.49 Acquired absence of other specified parts of digestive tract; Z85.060 Personal history of malignant carcinoid tumor of small intestine; Z79.899 Other long term (current) drug therapy; Z85.030 Personal history of malignant carcinoid tumor of large intestine; Z85.46 Personal history of malignant neoplasm of prostate; Z95.1 Presence of aortocoronary bypass graft; Z95.810 Presence of automatic (implantable) cardiac defibrillator; Z79.01 Long term (current) use of anticoagulants; Z86.73 Personal history of transient ischemic attack (TIA), and cerebral infarction without residual deficits
CPT/HCPCS: 96365; 96366; G0463; J1250; J1642

== ENCOUNTER → 2020-05-11 | Outpatient (CLI) | payer OTHER ==
[2020-05-11] VITALS (9 sets, daily range): BP systolic 96–122; BP diastolic 48–65
[~2020-05-11] MED LIST changes: +CLOP75TA28 PO; +CYANOCOBALAMIN (B-12) 1000 MCG/1 ML VIAL IM ONE; +CYANOCOBALAMIN (B-12) 1000 MCG/1 ML VIAL ONE; +MAGN400T21 GT
--- NOTE | 2020-05-11 07:35 | NUR ---
CHF PT ARRIVED TO THE CHF CLINIC FOR WEEKLY DOBUTAMINE INFUSION F/U AND TX PER MD ORDERS. A/OX4, AMBULATORY.
--- NOTE | 2020-05-11 07:51 | NUR ---
DOBUTAMINE INFUSION STARTED AT 5MCG/KG/MIN PER MD ORDERS. VSS. WILL CONTINUE TO MONITOR.
--- NOTE | 2020-05-11 09:32 | NUR ---
PT TOLERATING DOBUTAMINE INFUSION. INFUSION SITE BENIGN. VSS. WILL CONTINUE TO MONITOR.
--- NOTE | 2020-05-11 10:57 | NUR ---
Ayah Cath Removal Quinones needle D/C'd after Heparin flush per protocol. See e-MAR for medications given during this visit. Sterile occlusive dressing to site. Patient tolerated procedure well. Site benign post infusion. NOTE REMOVED BY KERRY ALVAREZ
--- NOTE | 2020-05-11 10:58 | NUR ---
Discharge Instructions See e-MAR for any mediations given with this visit. Patient education given on disease process. Patient verbalized understanding. Previous labs reviewed. Patient discharged in stable condition with after care instructions and follow up appointment. PT TO RETURN TO CLINIC TOMORROW FOR PACEMAKER CHECK. NOTE DOBUTAMINE IV [id number] ADMIN BY JULIETA ALVAREZ HEPARIN IVP ADMIN BY KERRY ALVAREZ VIT B12 IM ADMIN BY JULIETA ALVAREZ R DELTOID
== END | disposition home or self-care (01) ==
LOC: CHF HDHVI 07:47
PROVIDERS: ATTEND Internal Medicine Cardiovascular Disease
DX: I13.2 Hypertensive heart and chronic kidney disease with heart failure and with stage 5 chronic kidney disease, or end stage renal disease (principal); E11.22 Type 2 diabetes mellitus with diabetic chronic kidney disease; N18.6 End stage renal disease; I50.22 Chronic systolic (congestive) heart failure; I50.84 End stage heart failure; I25.10 Atherosclerotic heart disease of native coronary artery without angina pectoris; I48.11 Longstanding persistent atrial fibrillation; I42.8 Other cardiomyopathies; F41.9 Anxiety disorder, unspecified; F31.9 Bipolar disorder, unspecified; J44.9 Chronic obstructive pulmonary disease, unspecified; K21.9 Gastro-esophageal reflux disease without esophagitis; E78.5 Hyperlipidemia, unspecified; E03.9 Hypothyroidism, unspecified; G89.29 Other chronic pain; R53.83 Other fatigue; E11.21 Type 2 diabetes mellitus with diabetic nephropathy; E78.00 Pure hypercholesterolemia, unspecified; E11.42 Type 2 diabetes mellitus with diabetic polyneuropathy; E11.51 Type 2 diabetes mellitus with diabetic peripheral angiopathy without gangrene; M17.12 Unilateral primary osteoarthritis, left knee; Z79.01 Long term (current) use of anticoagulants; Z85.46 Personal history of malignant neoplasm of prostate; Z79.899 Other long term (current) drug therapy; Z90.49 Acquired absence of other specified parts of digestive tract; Z85.030 Personal history of malignant carcinoid tumor of large intestine; Z85.060 Personal history of malignant carcinoid tumor of small intestine; Z85.810 Personal history of malignant neoplasm of tongue; Z87.891 Personal history of nicotine dependence; Z95.1 Presence of aortocoronary bypass graft; Z95.810 Presence of automatic (implantable) cardiac defibrillator; Z95.5 Presence of coronary angioplasty implant and graft; Z86.73 Personal history of transient ischemic attack (TIA), and cerebral infarction without residual deficits
CPT/HCPCS: 96365; 96366; 96372; G0463; J1250; J1642; J3420

== ENCOUNTER → 2020-05-13 | Outpatient (CLI) | payer OTHER ==
[2020-05-13] VITALS (9 sets, daily range): BP systolic 91–119; BP diastolic 49–63
[~2020-05-13] VITALS: Ht 30.5 cm; Wt 88.6 kg
[~2020-05-13] MED LIST changes: -CLOP75TA28 PO; -CYANOCOBALAMIN (B-12) 1000 MCG/1 ML VIAL IM ONE; -CYANOCOBALAMIN (B-12) 1000 MCG/1 ML VIAL ONE; -MAGN400T21 GT
== END | disposition home or self-care (01) ==
LOC: CHF HDHVI 07:48
PROVIDERS: ATTEND Internal Medicine Cardiovascular Disease
DX: I13.2 Hypertensive heart and chronic kidney disease with heart failure and with stage 5 chronic kidney disease, or end stage renal disease (principal); E11.22 Type 2 diabetes mellitus with diabetic chronic kidney disease; I50.22 Chronic systolic (congestive) heart failure; N18.6 End stage renal disease; I25.10 Atherosclerotic heart disease of native coronary artery without angina pectoris; I48.11 Longstanding persistent atrial fibrillation; I25.2 Old myocardial infarction; I42.8 Other cardiomyopathies; J44.9 Chronic obstructive pulmonary disease, unspecified; K21.9 Gastro-esophageal reflux disease without esophagitis; E11.21 Type 2 diabetes mellitus with diabetic nephropathy; E11.42 Type 2 diabetes mellitus with diabetic polyneuropathy; E11.51 Type 2 diabetes mellitus with diabetic peripheral angiopathy without gangrene; E11.319 Type 2 diabetes mellitus with unspecified diabetic retinopathy without macular edema; E78.5 Hyperlipidemia, unspecified; E78.00 Pure hypercholesterolemia, unspecified; E03.9 Hypothyroidism, unspecified; M17.12 Unilateral primary osteoarthritis, left knee; G89.29 Other chronic pain; F31.9 Bipolar disorder, unspecified; F41.9 Anxiety disorder, unspecified; R53.83 Other fatigue; Z87.891 Personal history of nicotine dependence; Z95.5 Presence of coronary angioplasty implant and graft; Z85.810 Personal history of malignant neoplasm of tongue; Z90.49 Acquired absence of other specified parts of digestive tract; Z85.060 Personal history of malignant carcinoid tumor of small intestine; Z79.899 Other long term (current) drug therapy; Z85.030 Personal history of malignant carcinoid tumor of large intestine; Z85.46 Personal history of malignant neoplasm of prostate; Z95.1 Presence of aortocoronary bypass graft; Z95.810 Presence of automatic (implantable) cardiac defibrillator; Z79.01 Long term (current) use of anticoagulants; Z86.73 Personal history of transient ischemic attack (TIA), and cerebral infarction without residual deficits
CPT/HCPCS: 96365; 96366; G0463; J1250; J1642

== ENCOUNTER → 2020-05-14 | Outpatient (CLI) | payer OTHER ==
[~2020-05-14] MED LIST changes: -DOBUTamine 1000MCG/ML 250 ML IV ONE; +KETOROLAC TROMETH 60MG/2ML VIAL IM ONE; +KETOROLAC TROMETH 60MG/2ML VIAL ONE
[2020-05-14 09:31] VITALS: BP 140/83
--- NOTE | 2020-05-14 09:31 | NUR ---
CHF PT ARRIVED TO THE CHF CLINIC WITH C/O LOWER BACK PAIN AND SHOULDER PAIN 07/06. A/OX4. AMBULATORY. B/P IN SLIGHTLY INCREASED FROM THE PT NORM.
--- NOTE | 2020-05-14 09:46 | NUR ---
at bedside. SUBERWHAL at bedside for evaluation and treatment for acute episode. Further orders received and carried out.
[2020-05-14 10:06] VITALS: BP 119/68
--- NOTE | 2020-05-14 10:06 | NUR ---
Discharge Instructions See e-MAR for any mediations given with this visit. Patient education given on disease process. Patient verbalized understanding. Previous labs reviewed. Patient discharged in stable condition with after care instructions and follow up appointment. PT TO RETURN TO CLINIC TOMORROW FOR REGULAR EVAL AND TX PER MD ORDERS. MD PRESCRIPTION SENT ELECTRONIC METAXALONE 800MG TID TO [facility]. NOTE TORADOL IM ADMIN BY JULIETA RAMOS LOT #[id number] EXP 06/16
== END | disposition home or self-care (01) ==
LOC: CHF HDHVI 09:37
PROVIDERS: ATTEND Internal Medicine Cardiovascular Disease
DX: I13.2 Hypertensive heart and chronic kidney disease with heart failure and with stage 5 chronic kidney disease, or end stage renal disease (principal); E11.22 Type 2 diabetes mellitus with diabetic chronic kidney disease; N18.6 End stage renal disease; I50.22 Chronic systolic (congestive) heart failure; G89.29 Other chronic pain; I48.11 Longstanding persistent atrial fibrillation; I25.2 Old myocardial infarction; I42.8 Other cardiomyopathies; R53.83 Other fatigue; F41.9 Anxiety disorder, unspecified; F31.9 Bipolar disorder, unspecified; J44.9 Chronic obstructive pulmonary disease, unspecified; K21.9 Gastro-esophageal reflux disease without esophagitis; E78.5 Hyperlipidemia, unspecified; E03.9 Hypothyroidism, unspecified; E78.00 Pure hypercholesterolemia, unspecified; E11.21 Type 2 diabetes mellitus with diabetic nephropathy; E11.42 Type 2 diabetes mellitus with diabetic polyneuropathy; E11.51 Type 2 diabetes mellitus with diabetic peripheral angiopathy without gangrene; E11.319 Type 2 diabetes mellitus with unspecified diabetic retinopathy without macular edema; M17.12 Unilateral primary osteoarthritis, left knee; Z79.899 Other long term (current) drug therapy; Z90.49 Acquired absence of other specified parts of digestive tract; Z85.030 Personal history of malignant carcinoid tumor of large intestine; Z85.060 Personal history of malignant carcinoid tumor of small intestine; Z85.810 Personal history of malignant neoplasm of tongue; Z85.46 Personal history of malignant neoplasm of prostate; Z87.891 Personal history of nicotine dependence; Z95.1 Presence of aortocoronary bypass graft; Z95.810 Presence of automatic (implantable) cardiac defibrillator; Z95.5 Presence of coronary angioplasty implant and graft; Z79.01 Long term (current) use of anticoagulants
CPT/HCPCS: 96372; G0463; J1885

== ENCOUNTER → 2020-05-15 | Outpatient (CLI) | payer OTHER ==
[2020-05-15] VITALS (8 sets, daily range): BP systolic 97–134; BP diastolic 47–83
[~2020-05-15] MED LIST changes: +CLOP75TA28 PO; +DOBUTamine 1000MCG/ML 250 ML IV ONE; -KETOROLAC TROMETH 60MG/2ML VIAL IM ONE; -KETOROLAC TROMETH 60MG/2ML VIAL ONE; +MAGN400T21 GT
--- NOTE | 2020-05-15 08:00 | NUR ---
CHF PT ARRIVED TO THE CHF CLINIC FOR WEEKLY EVAL AND TX. A/OX4, AMBULATORY. PT STATED THAT HE NO LONGER HAS THE PAIN HE HAD YESTERDAY THAT THE TORADOL INJECTION WAS EFFECTIVE. PT HAD MD APPT TODAY.
--- NOTE | 2020-05-15 08:17 | NUR ---
DOBUTAMINE INFUSION STARTED @ 5MCG/KG/MIN PER MD ORDERS. VSS. WILL CONTINUE TO MONITOR.
--- NOTE | 2020-05-15 10:05 | NUR ---
PT TOLERATING DOBUTAMINE INFUSION. INFUSION SITE BENIGN. VSS. WILL CONTINUE TI MONITOR.
--- NOTE | 2020-05-15 10:19 | NUR ---
DOBUTAMINE INFUSION PAUSED. PT ESCORTED TO BACK OFFICE FOR APPT WITH MD ENGLISH. AMBULATORY. A/OX4.
--- NOTE | 2020-05-15 11:02 | NUR ---
PT ARRIVED BACK FROM APPT WITH MD ENGLISH. A/OX4 AMBULATORY. NEW ORDERS FOR SOMA 350MG GIVEN TO PT FROM . DOBUTAMINE INFUSION RESTARTED.
--- NOTE | 2020-05-15 11:42 | NUR ---
Discharge Instructions See e-MAR for any mediations given with this visit. Patient education given on disease process. Patient verbalized understanding. Previous labs reviewed. Patient discharged in stable condition with after care instructions and follow up appointment. PT TO RETURN TO CLINIC ON MONDAY FOR EVAL AND TX PER MD ORDERS. NOTE DOBUTAMINE IV [id number] ADMIN BY JULIETA ALVAREZ HEPARIN IVP ADMIN BY JULIETA ALVAREZ
[2020-05-15 12:26] LABS: Potassium 4.2 mmol/L (3.5-5.1)
[2020-05-15 12:28] LABS: Basophils # (auto) 0 10 ^3/uL (0-0.2); Basophils % (auto) 0.5 % (0.0-2.0); Eosinophils # (auto) 0.1 10 ^3/uL (0-0.8); Eosinophils % (auto) 2.2 % (0.0-7.0); Hematocrit 41.9 % (41.0-53.0); Lymphocytes # (auto) 1.1 10 ^3/uL (0.4-5.4); Lymphocytes % (auto) 35.3 % (10.0-50.0); Mean Corpuscular Hemoglobin 32.1 pg (28.0-32.0); Mean Corpuscular Hgb Conc. 33.5 g/dL (32.0-36.0); Mean Corpuscular Volume 95.9 fL (80.0-100.0); Monocytes # (auto) 0.5 10 ^3/uL (0-1.3); Monocytes % (auto) 16.6 % (0.0-12.0); Neutrophils # (auto) 1.5 10 ^3/uL (1.6-8.6); Neutrophils % (auto) 45.4 % (37.0-80.0); Platelet Count (auto) 150 10^3/uL (140-450); Red Blood Cells 4.37 10^6/uL (4.5-5.90); Red Cell Distribution Width 13.5 % (11.8-14.3); White Blood Cell 3.3 10^3/uL (4.4-10.8)
[2020-05-15 12:33] LABS: BUN/Creatinine Ratio 17.6; Calcium 8.4 mg/dL (8.5-10.1); Magnesium 2.6 mg/dL (1.6-2.6)
== END | disposition home or self-care (01) ==
LOC: CHF HDHVI 08:00
PROVIDERS: ATTEND Internal Medicine Cardiovascular Disease
DX: I13.2 Hypertensive heart and chronic kidney disease with heart failure and with stage 5 chronic kidney disease, or end stage renal disease (principal); E11.22 Type 2 diabetes mellitus with diabetic chronic kidney disease; N18.6 End stage renal disease; I50.23 Acute on chronic systolic (congestive) heart failure; I50.84 End stage heart failure; I25.10 Atherosclerotic heart disease of native coronary artery without angina pectoris; I48.11 Longstanding persistent atrial fibrillation; I25.2 Old myocardial infarction; I42.8 Other cardiomyopathies; D64.9 Anemia, unspecified; R70.0 Elevated erythrocyte sedimentation rate; E83.40 Disorders of magnesium metabolism, unspecified; F41.9 Anxiety disorder, unspecified; F32.9 Major depressive disorder, single episode, unspecified; J44.9 Chronic obstructive pulmonary disease, unspecified; K21.9 Gastro-esophageal reflux disease without esophagitis; E78.5 Hyperlipidemia, unspecified; E03.9 Hypothyroidism, unspecified; G89.29 Other chronic pain; R53.83 Other fatigue; E78.00 Pure hypercholesterolemia, unspecified; E11.21 Type 2 diabetes mellitus with diabetic nephropathy; E11.42 Type 2 diabetes mellitus with diabetic polyneuropathy; E11.51 Type 2 diabetes mellitus with diabetic peripheral angiopathy without gangrene; E11.319 Type 2 diabetes mellitus with unspecified diabetic retinopathy without macular edema; M17.12 Unilateral primary osteoarthritis, left knee; Z85.810 Personal history of malignant neoplasm of tongue; Z90.49 Acquired absence of other specified parts of digestive tract; Z79.899 Other long term (current) drug therapy; Z85.030 Personal history of malignant carcinoid tumor of large intestine; Z85.060 Personal history of malignant carcinoid tumor of small intestine; Z85.46 Personal history of malignant neoplasm of prostate; Z87.891 Personal history of nicotine dependence; Z95.1 Presence of aortocoronary bypass graft; Z95.810 Presence of automatic (implantable) cardiac defibrillator; Z95.5 Presence of coronary angioplasty implant and graft; Z79.01 Long term (current) use of anticoagulants; Z86.73 Personal history of transient ischemic attack (TIA), and cerebral infarction without residual deficits
CPT/HCPCS: 36415; 80048; 83735; 83880; 85025; 85652; 96365; 96366; G0463; J1250; J1642

== ENCOUNTER → 2020-05-18 | Outpatient (CLI) | payer OTHER ==
[2020-05-18] VITALS (8 sets, daily range): BP systolic 89–126; BP diastolic 42–67
[~2020-05-18] MED LIST changes: -CLOP75TA28 PO; -MAGN400T21 GT
--- NOTE | 2020-05-18 07:56 | NUR ---
CHF PT ARRIVED TO THE CHF CLINIC FOR WEEKLY EVAL AND TX. A/OX4. AMBULATORY. PT ARRIVED TO THE CLINIC WITH C/O MUSCLE SPASM PAIN IN THE LOWER BACK THAT RADIATES TO L SHOULDER PAIN 03/06. ON Monday05/16/20 PT HAD APPT WITH MD ENGLISH AND WAS PRESCRIBED SOMA 350MG. PT TOOK 1 LAST NIGHT. PT HAS OWN HOME MED [employer] WITH HIM AND WILL TAKE MEDICATION IF PAIN CAN NOT BE TOLERATED. WILL CONTINUE TO MONITOR.
--- NOTE | 2020-05-18 08:11 | NUR ---
DOBUTAMINE INFUSION STARTED @ 5MCG/KG/MIN PER MD ORDERS. VSS. WILL CONTINUE TO MONITOR.
--- NOTE | 2020-05-18 09:55 | NUR ---
PT TOLERATING DOBUTAMINE INFUSION. INFUSION SITE BENIGN. VSS. WILL CONTINUE TO MONITOR.
--- NOTE | 2020-05-18 11:17 | NUR ---
Discharge Instructions See e-MAR for any mediations given with this visit. Patient education given on disease process. Patient verbalized understanding. Previous labs reviewed. Patient discharged in stable condition with after care instructions and follow up appointment. PT TO RETURN TO CLINIC ON MON FOR F/U AND TX PER MD ORDER. NOTE DOBUTAMINE IV [id number] ADMIN BY JULIETA ALVAREZ HEPARIN IVP ADMIN BY JULIETA ALVAREZ
== END | disposition home or self-care (01) ==
LOC: CHF HDHVI 07:59
PROVIDERS: ATTEND Internal Medicine Cardiovascular Disease
DX: I13.2 Hypertensive heart and chronic kidney disease with heart failure and with stage 5 chronic kidney disease, or end stage renal disease (principal); E11.22 Type 2 diabetes mellitus with diabetic chronic kidney disease; N18.6 End stage renal disease; I50.22 Chronic systolic (congestive) heart failure; I50.84 End stage heart failure; I25.10 Atherosclerotic heart disease of native coronary artery without angina pectoris; I48.11 Longstanding persistent atrial fibrillation; I25.2 Old myocardial infarction; J44.9 Chronic obstructive pulmonary disease, unspecified; F41.9 Anxiety disorder, unspecified; K21.9 Gastro-esophageal reflux disease without esophagitis; E78.5 Hyperlipidemia, unspecified; E03.9 Hypothyroidism, unspecified; F32.9 Major depressive disorder, single episode, unspecified; G89.29 Other chronic pain; E78.00 Pure hypercholesterolemia, unspecified; E11.21 Type 2 diabetes mellitus with diabetic nephropathy; E11.51 Type 2 diabetes mellitus with diabetic peripheral angiopathy without gangrene; E11.319 Type 2 diabetes mellitus with unspecified diabetic retinopathy without macular edema; M17.12 Unilateral primary osteoarthritis, left knee; Z79.899 Other long term (current) drug therapy; Z85.030 Personal history of malignant carcinoid tumor of large intestine; Z85.060 Personal history of malignant carcinoid tumor of small intestine; Z85.810 Personal history of malignant neoplasm of tongue; Z85.46 Personal history of malignant neoplasm of prostate; Z87.891 Personal history of nicotine dependence; Z90.49 Acquired absence of other specified parts of digestive tract; Z95.1 Presence of aortocoronary bypass graft; Z95.810 Presence of automatic (implantable) cardiac defibrillator; Z95.5 Presence of coronary angioplasty implant and graft; Z86.73 Personal history of transient ischemic attack (TIA), and cerebral infarction without residual deficits; Z79.01 Long term (current) use of anticoagulants
CPT/HCPCS: 96365; 96366; G0463; J1250; J1642

== ENCOUNTER → 2020-05-19 | Outpatient (CLI) | payer OTHER ==
[~2020-05-19] MED LIST changes: -DOBUTamine 1000MCG/ML 250 ML IV ONE
--- NOTE | 2020-05-19 08:51 | NUR ---
CHF PT ARRIVED TO THE CHF CLINIC FOR EVAL. PT HAS C/O SYNCOPAL EPISODE THAT HAPPENED LAST NIGHT AT HOME LASING SECONDS FROM WHAT THE PT CAN REMEMBER. STATED IT HAPPENED WHEN HE WAS IN BED TURNING TO HIS L SIDE. A/OX4, AMBULATORY. PT HAS C/O PAIN WHICH FEELS LIKE SPASMS IN HIS LOWER BACK THAT RADIATES TO SHOULDERS AND TO L CHEST AT THE SITE OF THE PACEMAKER.
--- NOTE | 2020-05-19 09:00 | NUR ---
Clinic Provider Clinic Provider into see pt with new orders received and carried out.
--- NOTE | 2020-05-19 09:03 | NUR ---
PT HAS OWN HOME MEDS ONLY TOOK FUROSEMIDE 40MG IN AM PRIOR TO COMING IN TO CLINIC. IN CLINIC TOOK HIS PRESCRIBED HOME MEDS OF PLAVIX 75MG, K+40MEQ, ENTRESTO 24/26MG, AND MAG OX 40MG.
--- NOTE | 2020-05-19 09:20 | NUR ---
EKG PREFORMED BY JULIETA ALVAREZ V PACED COMPLEXES HR 79
[2020-05-19 10:11] LABS: BUN/Creatinine Ratio 11.6; Calcium 9.4 mg/dL (8.5-10.1)
--- NOTE | 2020-05-19 14:00 | NUR ---
Clinic Provider Clinic Provider into see pt with new orders received. PT TO BE SCHEDULED FOR ANGIO WITH MD ENGLISH.
[2020-05-19 14:44] VITALS: BP 135/76
--- NOTE | 2020-05-19 14:44 | NUR ---
Discharge Instructions See e-MAR for any mediations given with this visit. Patient education given on disease process. Patient verbalized understanding. Previous labs reviewed. Patient discharged in stable condition with after care instructions and follow up appointment. PT TO RETURN TO CLINIC TOMORROW FOR F/U AND EVAL. NOTE EKG ADMIN BY JULIETA ALVAREZ
== END | disposition home or self-care (01) ==
LOC: Rad HDHVI 09:05
PROVIDERS: ATTEND Internal Medicine Cardiovascular Disease
DX: M47.892 Other spondylosis, cervical region (principal); I50.23 Acute on chronic systolic (congestive) heart failure; I11.0 Hypertensive heart disease with heart failure; E83.40 Disorders of magnesium metabolism, unspecified; R06.02 Shortness of breath; M54.2 Cervicalgia; R53.83 Other fatigue; J98.11 Atelectasis; M47.894 Other spondylosis, thoracic region; G95.89 Other specified diseases of spinal cord; M46.92 Unspecified inflammatory spondylopathy, cervical region
CPT/HCPCS: 36415; 71046; 72040; 80048; 83735; 83880; 93005; G0463

== ENCOUNTER → 2020-05-20 | Outpatient (CLI) | payer OTHER ==
[2020-05-20] VITALS (9 sets, daily range): BP systolic 109–139; BP diastolic 55–72
[~2020-05-20] MED LIST changes: +DOBUTamine 1000MCG/ML 250 ML IV ONE
--- NOTE | 2020-05-20 08:00 | NUR ---
PATIENT INTO CLINIC FOR SCHEDULED INFUSION, AAOX4, AMBULATORY, BREATHING EVEN AND UNLABORED. PATIENT HAD SYNCOPAL EPISODE MONDAY NIGHT WHILE IN BED, PATIENT SCHEDULED TO SEE MD TODAY.
--- NOTE | 2020-05-20 08:13 | NUR ---
Ayah Cath Insertion 20 gauge Ayah Cath inserted by Cheyanne ALVAREZ using sterile technique in the R upper chest with occlusive dressing over saucedo needle. Patient tolerated procedure well. Ordered labs drawn and sent. See e-MAR for medications given during this visit.
--- NOTE | 2020-05-20 11:24 | NUR ---
CHF CLINIC Discharge Instructions See e-MAR for any mediations given with this visit. Patient education given on disease process. Patient verbalized understanding. Previous labs reviewed. Patient discharged in stable condition with after care instructions and follow up appointment. NOTE DOBUTAMINE [id number] ADMIN BY JULIETA ALVAREZ HEPARIN ADMIN BY JULIETA ALVAREZ
--- NOTE | 2020-05-20 11:25 | NUR ---
DR ENGLISH TALKING WITH PATIENT ABOUT SCHEDULING A HEART CATH FOR NEXT WEEK, PT VERBALIZED UNDERSTANDING.
[2020-05-20 12:41] LABS: INR 1.09 (0.9-1.15); Partial Thromboplastin Time 43.8 sec (23.64-32.05)
== END | disposition home or self-care (01) ==
LOC: CHF HDHVI 07:56
PROVIDERS: ATTEND Internal Medicine Cardiovascular Disease
DX: I13.2 Hypertensive heart and chronic kidney disease with heart failure and with stage 5 chronic kidney disease, or end stage renal disease (principal); E11.22 Type 2 diabetes mellitus with diabetic chronic kidney disease; N18.6 End stage renal disease; I50.23 Acute on chronic systolic (congestive) heart failure; I50.84 End stage heart failure; I48.11 Longstanding persistent atrial fibrillation; I25.2 Old myocardial infarction; I42.8 Other cardiomyopathies; R79.1 Abnormal coagulation profile; F41.9 Anxiety disorder, unspecified; I25.10 Atherosclerotic heart disease of native coronary artery without angina pectoris; J44.9 Chronic obstructive pulmonary disease, unspecified; K21.9 Gastro-esophageal reflux disease without esophagitis; E78.5 Hyperlipidemia, unspecified; E03.9 Hypothyroidism, unspecified; F32.9 Major depressive disorder, single episode, unspecified; G89.29 Other chronic pain; E78.00 Pure hypercholesterolemia, unspecified; E11.21 Type 2 diabetes mellitus with diabetic nephropathy; E11.51 Type 2 diabetes mellitus with diabetic peripheral angiopathy without gangrene; E11.319 Type 2 diabetes mellitus with unspecified diabetic retinopathy without macular edema; M17.12 Unilateral primary osteoarthritis, left knee; Z79.899 Other long term (current) drug therapy; Z85.030 Personal history of malignant carcinoid tumor of large intestine; Z01.812 Encounter for preprocedural laboratory examination; Z85.060 Personal history of malignant carcinoid tumor of small intestine; Z85.810 Personal history of malignant neoplasm of tongue; Z85.46 Personal history of malignant neoplasm of prostate; Z87.891 Personal history of nicotine dependence; Z95.1 Presence of aortocoronary bypass graft; Z95.810 Presence of automatic (implantable) cardiac defibrillator; Z95.5 Presence of coronary angioplasty implant and graft; Z86.73 Personal history of transient ischemic attack (TIA), and cerebral infarction without residual deficits; Z79.01 Long term (current) use of anticoagulants; Z90.49 Acquired absence of other specified parts of digestive tract
CPT/HCPCS: 36415; 85610; 85730; 96365; 96366; G0463; J1250; J1642

== ENCOUNTER → 2020-05-22 | Outpatient (CLI) | payer OTHER ==
[2020-05-22] VITALS (9 sets, daily range): BP systolic 93–121; BP diastolic 48–68
--- NOTE | 2020-05-22 07:45 | NUR ---
PT. TO CHF CLINIC FOR DOBUTAMINE INFUSION PER MD ORDER. PT. IS BEING SCHEDULED FOR CORONARY ANGIOGRAM NEXT WEEK BY DR. ENGLISH. PT. WITH C/O BETTER SLEEPING LAST NIGHT AND LESS PAIN ACROSS BACK. MD ORDERS RECEIVED AND CARRIED OUT. SEE NSG ASSESS.
--- NOTE | 2020-05-22 08:05 | NUR ---
Clinic Provider Clinic Provider into see pt with new orders received and carried out. Dobutamine gtt started at {5}mcg/kg/hr per MD order.
--- NOTE | 2020-05-22 11:11 | NUR ---
Discharge Instructions See e-MAR for any mediations given with this visit. Patient education given on disease process. Patient verbalized understanding. Previous labs reviewed. Patient discharged in stable condition with after care instructions and follow up appointment. PT TO RETURN TO CLINIC ON MONDAY FOR F/U AND TX. NOTE DOBUTAMINE IV [id number] ADMIN BY JULIETA ALVAREZ HEPARIN IVP ADMIN BY JULIETA ALVAREZ
== END | disposition home or self-care (01) ==
LOC: CHF HDHVI 07:58
PROVIDERS: ATTEND Internal Medicine Cardiovascular Disease
DX: I13.2 Hypertensive heart and chronic kidney disease with heart failure and with stage 5 chronic kidney disease, or end stage renal disease (principal); E11.22 Type 2 diabetes mellitus with diabetic chronic kidney disease; N18.6 End stage renal disease; I50.22 Chronic systolic (congestive) heart failure; I50.84 End stage heart failure; I25.10 Atherosclerotic heart disease of native coronary artery without angina pectoris; I42.8 Other cardiomyopathies; I48.11 Longstanding persistent atrial fibrillation; I25.2 Old myocardial infarction; F41.9 Anxiety disorder, unspecified; J44.9 Chronic obstructive pulmonary disease, unspecified; K21.9 Gastro-esophageal reflux disease without esophagitis; E78.5 Hyperlipidemia, unspecified; E03.9 Hypothyroidism, unspecified; F32.9 Major depressive disorder, single episode, unspecified; G89.29 Other chronic pain; E78.00 Pure hypercholesterolemia, unspecified; E11.21 Type 2 diabetes mellitus with diabetic nephropathy; E11.51 Type 2 diabetes mellitus with diabetic peripheral angiopathy without gangrene; E11.319 Type 2 diabetes mellitus with unspecified diabetic retinopathy without macular edema; M17.12 Unilateral primary osteoarthritis, left knee; E11.42 Type 2 diabetes mellitus with diabetic polyneuropathy; M19.90 Unspecified osteoarthritis, unspecified site; Z79.899 Other long term (current) drug therapy; Z85.030 Personal history of malignant carcinoid tumor of large intestine; Z85.060 Personal history of malignant carcinoid tumor of small intestine; Z85.810 Personal history of malignant neoplasm of tongue; Z85.46 Personal history of malignant neoplasm of prostate; Z87.891 Personal history of nicotine dependence; Z95.1 Presence of aortocoronary bypass graft; Z95.810 Presence of automatic (implantable) cardiac defibrillator; Z95.5 Presence of coronary angioplasty implant and graft; Z86.73 Personal history of transient ischemic attack (TIA), and cerebral infarction without residual deficits; Z90.49 Acquired absence of other specified parts of digestive tract; Z79.01 Long term (current) use of anticoagulants
CPT/HCPCS: 96365; 96366; G0463; J1250; J1642

== ENCOUNTER → 2020-05-25 | Outpatient (CLI) | payer OTHER ==
[2020-05-25] VITALS (9 sets, daily range): BP systolic 90–123; BP diastolic 43–62
[~2020-05-25] MED LIST changes: +CLOP75TA28 PO; +MAGN400T21 GT
[2020-05-25 12:03] LABS: Basophils # (auto) 0 10 ^3/uL (0-0.2); Basophils % (auto) 0.7 % (0.0-2.0); Eosinophils # (auto) 0.1 10 ^3/uL (0-0.8); Eosinophils % (auto) 2.3 % (0.0-7.0); Hematocrit 43.5 % (41.0-53.0); Hemoglobin 14.6 g/dL (13.5-17.5); Lymphocytes # (auto) 1.4 10 ^3/uL (0.4-5.4); Lymphocytes % (auto) 36.8 % (10.0-50.0); Mean Corpuscular Hemoglobin 31.8 pg (28.0-32.0); Mean Corpuscular Hgb Conc. 33.5 g/dL (32.0-36.0); Mean Corpuscular Volume 95.1 fL (80.0-100.0); Monocytes # (auto) 0.6 10 ^3/uL (0-1.3); Monocytes % (auto) 17.6 % (0.0-12.0); Neutrophils # (auto) 1.6 10 ^3/uL (1.6-8.6); Neutrophils % (auto) 42.6 % (37.0-80.0); Nucleated Red Blood Cells % 0.1 %; Platelet Count (auto) 145 10^3/uL (140-450); Red Blood Cells 4.58 10^6/uL (4.5-5.90); Red Cell Distribution Width 13.4 % (11.8-14.3); White Blood Cell 3.7 10^3/uL (4.4-10.8)
[2020-05-25 12:17] LABS: INR 1.09 (0.9-1.15); Partial Thromboplastin Time 36.5 sec (23.64-32.05)
[2020-05-25 12:18] LABS: Calcium 8.8 mg/dL (8.5-10.1); Magnesium 2.6 mg/dL (1.6-2.6); Potassium 3.7 mmol/L (3.5-5.1)
[2020-05-25 13:32] LABS: BUN/Creatinine Ratio 13.2
== END | disposition home or self-care (01) ==
LOC: CHF HDHVI 07:28
PROVIDERS: ATTEND Internal Medicine Cardiovascular Disease
DX: I13.2 Hypertensive heart and chronic kidney disease with heart failure and with stage 5 chronic kidney disease, or end stage renal disease (principal); E11.22 Type 2 diabetes mellitus with diabetic chronic kidney disease; I50.23 Acute on chronic systolic (congestive) heart failure; N18.6 End stage renal disease; E83.40 Disorders of magnesium metabolism, unspecified; R79.1 Abnormal coagulation profile; D64.9 Anemia, unspecified; I25.10 Atherosclerotic heart disease of native coronary artery without angina pectoris; I48.11 Longstanding persistent atrial fibrillation; I25.2 Old myocardial infarction; I42.8 Other cardiomyopathies; J44.9 Chronic obstructive pulmonary disease, unspecified; K21.9 Gastro-esophageal reflux disease without esophagitis; E11.21 Type 2 diabetes mellitus with diabetic nephropathy; E11.42 Type 2 diabetes mellitus with diabetic polyneuropathy; E11.51 Type 2 diabetes mellitus with diabetic peripheral angiopathy without gangrene; E11.319 Type 2 diabetes mellitus with unspecified diabetic retinopathy without macular edema; E78.5 Hyperlipidemia, unspecified; E78.00 Pure hypercholesterolemia, unspecified; E03.9 Hypothyroidism, unspecified; M17.12 Unilateral primary osteoarthritis, left knee; G89.29 Other chronic pain; F31.9 Bipolar disorder, unspecified; F41.9 Anxiety disorder, unspecified; R53.83 Other fatigue; Z87.891 Personal history of nicotine dependence; Z95.5 Presence of coronary angioplasty implant and graft; Z95.810 Presence of automatic (implantable) cardiac defibrillator; Z90.49 Acquired absence of other specified parts of digestive tract; Z85.060 Personal history of malignant carcinoid tumor of small intestine; Z79.899 Other long term (current) drug therapy; Z85.038 Personal history of other malignant neoplasm of large intestine; Z85.46 Personal history of malignant neoplasm of prostate; Z85.810 Personal history of malignant neoplasm of tongue; Z95.1 Presence of aortocoronary bypass graft; Z79.01 Long term (current) use of anticoagulants; Z86.73 Personal history of transient ischemic attack (TIA), and cerebral infarction without residual deficits
CPT/HCPCS: 36415; 80048; 83735; 83880; 85025; 85610; 85730; 96365; 96366; G0463; J1250; J1642

== ENCOUNTER → 2020-05-28 | Day surgery (SDC) | payer OTHER ==
[~2020-05-28] MED LIST changes: +ANGIOMAX 250 MG VIAL IV ONE; -CARI-277 PO; -DOBUTamine 1000MCG/ML 250 ML IV ONE; -DOCU-94 PO; -EZET10TA22 PO; -HYDR-4833 PO; +IOHEXOL 350 MG/ML 100ML IJ ONE; +LIDOCAINE 2%HCL (LOCAL ANESTH.) INJ 20ML MDV ONE; +MIDAZOLAM HCL 1MG/1ML-2 ML VIAL ONE; -PRAS10TA PO; +SODIUM CHL 0.9% 0 ML ONE; +fentaNYL CITRATE 100 MCG/2 ML VL ONE
== END | disposition home or self-care (01) ==
LOC: CATH 10:09
PROVIDERS: ATTEND Internal Medicine Cardiovascular Disease
DX: I25.5 Ischemic cardiomyopathy (principal); I25.810 Atherosclerosis of coronary artery bypass graft(s) without angina pectoris; I25.2 Old myocardial infarction; E78.5 Hyperlipidemia, unspecified; I50.9 Heart failure, unspecified; Z98.890 Other specified postprocedural states; Z95.810 Presence of automatic (implantable) cardiac defibrillator; Z95.1 Presence of aortocoronary bypass graft; Z87.891 Personal history of nicotine dependence; Z88.8 Allergy status to other drugs, medicaments and biological substances; Z11.59 Encounter for screening for other viral diseases; Z79.899 Other long term (current) drug therapy
CPT/HCPCS: 93461; C1751; C1760; C1769; C1894; J1644; J2250; J3010; Q9967; U0003; 99152; 99153

== ENCOUNTER → 2020-06-01 | Outpatient (CLI) | payer OTHER ==
[2020-06-01] VITALS (8 sets, daily range): BP systolic 90–121; BP diastolic 43–62
[~2020-06-01] VITALS: Ht 30.5 cm; Wt 88.1 kg
[~2020-06-01] MED LIST changes: -ANGIOMAX 250 MG VIAL IV ONE; +DOBUTamine 1000MCG/ML 250 ML IV ONE; -IOHEXOL 350 MG/ML 100ML IJ ONE; -LIDOCAINE 2%HCL (LOCAL ANESTH.) INJ 20ML MDV ONE; -MIDAZOLAM HCL 1MG/1ML-2 ML VIAL ONE; -SODIUM CHL 0.9% 0 ML ONE; -fentaNYL CITRATE 100 MCG/2 ML VL ONE
--- NOTE | 2020-06-01 07:57 | NUR ---
CLINIC PT ARRIVED TO THE CHF CLINIC FOR WEEKLY EVAL AND TX. A/OX4, AMBULATORY.
--- NOTE | 2020-06-01 08:06 | NUR ---
DOBUTAMINE IV STARTED @ 5MCG/KG/MIN PER MD ORDERS. VSS. WILL CONTINUE TO MONITOR
--- NOTE | 2020-06-01 10:01 | NUR ---
PT TOLERATING DOBUTAMINE INFUSION. INFUSION SITE BENIGN. VSS. WILL CONTINUE TO MONITOR.
--- NOTE | 2020-06-01 11:18 | NUR ---
Discharge Instructions See e-MAR for any mediations given with this visit. Patient education given on disease process. Patient verbalized understanding. Previous labs reviewed. Patient discharged in stable condition with after care instructions and follow up appointment. PT TO RETURN TO CLINIC ON MON FOR EVAL AND TX PER MD ORDERS. NOTE DOBUTAMINE IV [id number] ADMIN BY JULIETA ALVAREZ HEPARIN IVP ADMIN BY MACY ALVAREZ
== END | disposition home or self-care (01) ==
LOC: CHF HDHVI 07:59
PROVIDERS: ATTEND Internal Medicine Cardiovascular Disease
DX: I13.2 Hypertensive heart and chronic kidney disease with heart failure and with stage 5 chronic kidney disease, or end stage renal disease (principal); E11.22 Type 2 diabetes mellitus with diabetic chronic kidney disease; N18.6 End stage renal disease; I50.22 Chronic systolic (congestive) heart failure; I50.84 End stage heart failure; I25.10 Atherosclerotic heart disease of native coronary artery without angina pectoris; I48.11 Longstanding persistent atrial fibrillation; I25.2 Old myocardial infarction; I42.8 Other cardiomyopathies; R53.83 Other fatigue; F31.9 Bipolar disorder, unspecified; F41.9 Anxiety disorder, unspecified; J44.9 Chronic obstructive pulmonary disease, unspecified; K21.9 Gastro-esophageal reflux disease without esophagitis; E78.5 Hyperlipidemia, unspecified; E03.9 Hypothyroidism, unspecified; G89.29 Other chronic pain; M17.12 Unilateral primary osteoarthritis, left knee; E78.00 Pure hypercholesterolemia, unspecified; E11.21 Type 2 diabetes mellitus with diabetic nephropathy; E11.42 Type 2 diabetes mellitus with diabetic polyneuropathy; E11.319 Type 2 diabetes mellitus with unspecified diabetic retinopathy without macular edema; E11.51 Type 2 diabetes mellitus with diabetic peripheral angiopathy without gangrene; Z85.46 Personal history of malignant neoplasm of prostate; Z85.030 Personal history of malignant carcinoid tumor of large intestine; Z85.810 Personal history of malignant neoplasm of tongue; Z86.73 Personal history of transient ischemic attack (TIA), and cerebral infarction without residual deficits; Z85.060 Personal history of malignant carcinoid tumor of small intestine; Z95.1 Presence of aortocoronary bypass graft; Z79.01 Long term (current) use of anticoagulants; Z87.891 Personal history of nicotine dependence; Z79.899 Other long term (current) drug therapy; Z90.49 Acquired absence of other specified parts of digestive tract; Z95.810 Presence of automatic (implantable) cardiac defibrillator
CPT/HCPCS: 96365; 96366; G0463; J1250; J1642

== ENCOUNTER → 2020-06-03 | Outpatient (CLI) | payer OTHER ==
[~2020-06-03] VITALS: Ht 30.5 cm; Wt 89.0 kg
[2020-06-03] VITALS (10 sets, daily range): BP systolic 93–120; BP diastolic 45–70
[~2020-06-03] MED LIST changes: -MAGN400T21 GT; -POTA10TA51 PO
--- NOTE | 2020-06-03 07:35 | NUR ---
CLINIC PT ARRIVED TO THE CHF CLINIC FOR WEEKLY CHF EVAL AND TX PER MD ORDERS. A/OX4. AMBULATORY.
--- NOTE | 2020-06-03 07:49 | NUR ---
DOBUTAMINE IV STARTED @ 5MCG/KG/MIN PER MD ORDERS. VSS. WILL CONTINUE TO MONITOR.
--- NOTE | 2020-06-03 09:20 | NUR ---
Ayah Cath Insertion 20 gauge Ayah Cath inserted using sterile technique in the R upper chest with occlusive dressing over saucedo needle. Patient tolerated procedure well. See e-MAR for medications given during this visit. NOTE INSERTED BY JULIETA ALVRAEZ Addendum: 06/03/20 at 0922 by JULIETA YOU RN RN [place] PORT ACCESSED @1515 NOT 6499
--- NOTE | 2020-06-03 09:57 | NUR ---
PT TOLERATING DOBUTAMINE INFUSION. INFUSION SITE BENIGN. VSS. WILL CONTINUE TO MONITOR
--- NOTE | 2020-06-03 10:56 | NUR ---
Ayah Cath Removal Quinones needle D/C'd after Heparin flush per protocol. See e-MAR for medications given during this visit. Sterile occlusive dressing to site. Patient tolerated procedure well. Site benign post infusion. NOTE REMOVED BY FRIDA ALVAREZ
--- NOTE | 2020-06-03 10:57 | NUR ---
Discharge Instructions See e-MAR for any mediations given with this visit. Patient education given on disease process. Patient verbalized understanding. Previous labs reviewed. Patient discharged in stable condition with after care instructions and follow up appointment ON MONDAY. NOTE DOBUTAMINE IV [id number] ADMIN BY JULIETA ALVAREZ HEPARIN IVP ADMIN BY FRIDA ALVAREZ
== END | disposition home or self-care (01) ==
LOC: CHF HDHVI 07:33
PROVIDERS: ATTEND Internal Medicine Cardiovascular Disease
DX: I13.2 Hypertensive heart and chronic kidney disease with heart failure and with stage 5 chronic kidney disease, or end stage renal disease (principal); E11.22 Type 2 diabetes mellitus with diabetic chronic kidney disease; I50.22 Chronic systolic (congestive) heart failure; N18.6 End stage renal disease; I25.10 Atherosclerotic heart disease of native coronary artery without angina pectoris; I48.11 Longstanding persistent atrial fibrillation; I25.2 Old myocardial infarction; I42.8 Other cardiomyopathies; J44.9 Chronic obstructive pulmonary disease, unspecified; K21.9 Gastro-esophageal reflux disease without esophagitis; E11.21 Type 2 diabetes mellitus with diabetic nephropathy; E11.42 Type 2 diabetes mellitus with diabetic polyneuropathy; E11.51 Type 2 diabetes mellitus with diabetic peripheral angiopathy without gangrene; E11.319 Type 2 diabetes mellitus with unspecified diabetic retinopathy without macular edema; E78.5 Hyperlipidemia, unspecified; E78.00 Pure hypercholesterolemia, unspecified; E03.9 Hypothyroidism, unspecified; M17.12 Unilateral primary osteoarthritis, left knee; G89.29 Other chronic pain; F31.9 Bipolar disorder, unspecified; F41.9 Anxiety disorder, unspecified; R53.83 Other fatigue; Z87.891 Personal history of nicotine dependence; Z95.5 Presence of coronary angioplasty implant and graft; Z85.810 Personal history of malignant neoplasm of tongue; Z90.49 Acquired absence of other specified parts of digestive tract; Z85.060 Personal history of malignant carcinoid tumor of small intestine; Z79.899 Other long term (current) drug therapy; Z85.030 Personal history of malignant carcinoid tumor of large intestine; Z85.46 Personal history of malignant neoplasm of prostate; Z95.1 Presence of aortocoronary bypass graft; Z95.810 Presence of automatic (implantable) cardiac defibrillator; Z79.01 Long term (current) use of anticoagulants; Z86.73 Personal history of transient ischemic attack (TIA), and cerebral infarction without residual deficits
CPT/HCPCS: 96365; 96366; G0463; J1250; J1642

== ENCOUNTER → 2020-06-05 | Outpatient (CLI) | payer OTHER ==
[2020-06-05] VITALS (9 sets, daily range): BP systolic 107–145; BP diastolic 52–71
[~2020-06-05] MED LIST changes: +CARI-277 PO; +DOCU-94 PO; +EZET10TA22 PO; +HYDR-4833 PO; +MAGN400T21 GT; +POTA10TA51 PO; +PRAS10TA PO
--- NOTE | 2020-06-05 07:50 | NUR ---
CLINIC PT ARRIVED TO THE CHF CLINIC FOR WEEKLY CHF EVAL AND TX. A/OX4 AMBULATORY
--- NOTE | 2020-06-05 08:11 | NUR ---
DOBUTAMINE INFUSION STARTED @ 5MCG/KG/MIN PER MD ORDERS. VSS. WILL CONTINUE TO MONITOR.
--- NOTE | 2020-06-05 09:55 | NUR ---
PT TOLERATING DOBUTAMINE INFUSION. INFUSION SITE BENIGN. VSS.WILL CONTINUE TO MONITOR.
--- NOTE | 2020-06-05 11:18 | NUR ---
Discharge Instructions See e-MAR for any mediations given with this visit. Patient education given on disease process. Patient verbalized understanding. Previous labs reviewed. Patient discharged in stable condition with after care instructions and follow up appointment ON MONDAY. NOTE DOBUTAMINE IV [id number] ADMIN BY JULIETA ALVAREZ HEPARIN IVP ADMIN BY JULIETA ALVAREZ
[2020-06-05 12:09] LABS: Magnesium 2.8 mg/dL (1.6-2.6); Potassium 4.3 mmol/L (3.5-5.1)
[2020-06-05 12:10] LABS: BUN/Creatinine Ratio 16.8
== END | disposition home or self-care (01) ==
LOC: CHF HDHVI 08:02
PROVIDERS: ATTEND Internal Medicine Cardiovascular Disease
DX: I13.2 Hypertensive heart and chronic kidney disease with heart failure and with stage 5 chronic kidney disease, or end stage renal disease (principal); E11.22 Type 2 diabetes mellitus with diabetic chronic kidney disease; N18.6 End stage renal disease; I50.23 Acute on chronic systolic (congestive) heart failure; I50.84 End stage heart failure; R53.83 Other fatigue; I25.10 Atherosclerotic heart disease of native coronary artery without angina pectoris; I48.11 Longstanding persistent atrial fibrillation; I25.2 Old myocardial infarction; I42.8 Other cardiomyopathies; F31.9 Bipolar disorder, unspecified; J44.9 Chronic obstructive pulmonary disease, unspecified; E83.40 Disorders of magnesium metabolism, unspecified; F41.9 Anxiety disorder, unspecified; K21.9 Gastro-esophageal reflux disease without esophagitis; E78.5 Hyperlipidemia, unspecified; E03.9 Hypothyroidism, unspecified; G89.29 Other chronic pain; E78.00 Pure hypercholesterolemia, unspecified; E11.21 Type 2 diabetes mellitus with diabetic nephropathy; E11.42 Type 2 diabetes mellitus with diabetic polyneuropathy; E11.51 Type 2 diabetes mellitus with diabetic peripheral angiopathy without gangrene; E11.319 Type 2 diabetes mellitus with unspecified diabetic retinopathy without macular edema; M17.12 Unilateral primary osteoarthritis, left knee; Z85.030 Personal history of malignant carcinoid tumor of large intestine; Z79.899 Other long term (current) drug therapy; Z85.060 Personal history of malignant carcinoid tumor of small intestine; Z90.49 Acquired absence of other specified parts of digestive tract; Z85.810 Personal history of malignant neoplasm of tongue; Z86.73 Personal history of transient ischemic attack (TIA), and cerebral infarction without residual deficits; Z85.46 Personal history of malignant neoplasm of prostate; Z87.891 Personal history of nicotine dependence; Z95.1 Presence of aortocoronary bypass graft; Z95.5 Presence of coronary angioplasty implant and graft; Z95.810 Presence of automatic (implantable) cardiac defibrillator; Z79.01 Long term (current) use of anticoagulants
CPT/HCPCS: 36415; 80048; 83735; 83880; 96365; 96366; G0463; J1250; J1642

== ENCOUNTER → 2020-06-08 | Outpatient (CLI) | payer OTHER ==
[2020-06-08] VITALS (10 sets, daily range): BP systolic 92–130; BP diastolic 45–72
[~2020-06-08] VITALS: Ht 30.5 cm; Wt 88.6 kg
[~2020-06-08] MED LIST changes: -CARI-277 PO; -DOCU-94 PO; -EZET10TA22 PO; -HYDR-4833 PO; -MAGN400T21 GT; -POTA10TA51 PO; -PRAS10TA PO
== END | disposition home or self-care (01) ==
LOC: CHF HDHVI 08:19
PROVIDERS: ATTEND Internal Medicine Cardiovascular Disease
DX: I48.91 Unspecified atrial fibrillation (principal); R53.83 Other fatigue; I50.9 Heart failure, unspecified; I51.7 Cardiomegaly
CPT/HCPCS: 96365; 96366; G0463; J1250; J1642

== ENCOUNTER → 2020-06-10 | Outpatient (CLI) | payer OTHER ==
[2020-06-10] VITALS (7 sets, daily range): BP systolic 96–131; BP diastolic 49–62
[~2020-06-10] VITALS: Ht 30.5 cm; Wt 87.8 kg
[~2020-06-10] MED LIST changes: +CYANOCOBALAMIN (B-12) 1000 MCG/1 ML VIAL IM ONE; +CYANOCOBALAMIN (B-12) 1000 MCG/1 ML VIAL ONE
== END | disposition home or self-care (01) ==
LOC: CHF HDHVI 07:53
PROVIDERS: ATTEND Internal Medicine Cardiovascular Disease
DX: I13.2 Hypertensive heart and chronic kidney disease with heart failure and with stage 5 chronic kidney disease, or end stage renal disease (principal); E11.22 Type 2 diabetes mellitus with diabetic chronic kidney disease; N18.6 End stage renal disease; I50.22 Chronic systolic (congestive) heart failure; I50.84 End stage heart failure; R53.83 Other fatigue; I25.10 Atherosclerotic heart disease of native coronary artery without angina pectoris; I48.11 Longstanding persistent atrial fibrillation; I25.2 Old myocardial infarction; I42.8 Other cardiomyopathies; F41.9 Anxiety disorder, unspecified; J44.9 Chronic obstructive pulmonary disease, unspecified; K21.9 Gastro-esophageal reflux disease without esophagitis; E78.5 Hyperlipidemia, unspecified; E03.9 Hypothyroidism, unspecified; G89.29 Other chronic pain; E78.00 Pure hypercholesterolemia, unspecified; E11.21 Type 2 diabetes mellitus with diabetic nephropathy; E11.42 Type 2 diabetes mellitus with diabetic polyneuropathy; E11.51 Type 2 diabetes mellitus with diabetic peripheral angiopathy without gangrene; E11.319 Type 2 diabetes mellitus with unspecified diabetic retinopathy without macular edema; M17.12 Unilateral primary osteoarthritis, left knee; F32.9 Major depressive disorder, single episode, unspecified; Z85.030 Personal history of malignant carcinoid tumor of large intestine; Z85.810 Personal history of malignant neoplasm of tongue; Z85.46 Personal history of malignant neoplasm of prostate; Z79.899 Other long term (current) drug therapy; Z90.49 Acquired absence of other specified parts of digestive tract; Z87.891 Personal history of nicotine dependence; Z95.1 Presence of aortocoronary bypass graft; Z86.73 Personal history of transient ischemic attack (TIA), and cerebral infarction without residual deficits; Z79.01 Long term (current) use of anticoagulants
CPT/HCPCS: 96365; 96366; 96372; G0463; J1250; J1642; J3420

== ENCOUNTER → 2020-06-12 | Outpatient (CLI) | payer OTHER ==
[2020-06-12] VITALS (9 sets, daily range): BP systolic 97–128; BP diastolic 43–66
[~2020-06-12] MED LIST changes: -CYANOCOBALAMIN (B-12) 1000 MCG/1 ML VIAL IM ONE; -CYANOCOBALAMIN (B-12) 1000 MCG/1 ML VIAL ONE
--- NOTE | 2020-06-12 07:50 | NUR ---
CLINIC PT ARRIVED TO THE CHF CLINIC FOR WEEKLY CHF EVAL AND TX. A/OX4, AMBULATORY. BREATHING IS EVEN AND UNLABORED.
--- NOTE | 2020-06-12 08:07 | NUR ---
DOBUTAMINE IV STARTED @ 5 MCG/KG/MIN PER MD ORDERS. VSS. WILL CONTINUE TO MONITOR.
--- NOTE | 2020-06-12 10:28 | NUR ---
PT TOLERATING DOBUTAMINE INFUSION. INFUSION SITE BENIGN. VSS. WILL CONTINUE TO MONITOR
--- NOTE | 2020-06-12 11:10 | NUR ---
Ayah Cath Removal Quinones needle D/C'd after Heparin flush per protocol. See e-MAR for medications given during this visit. Sterile occlusive dressing to site. Patient tolerated procedure well. Site benign post infusion. NOTE REMOVED BY FRAN ALVAREZ
--- NOTE | 2020-06-12 11:14 | NUR ---
Discharge Instructions See e-MAR for any mediations given with this visit. Patient education given on disease process. Patient verbalized understanding. Previous labs reviewed. Patient discharged in stable condition with after care instructions and follow up appointment ON [place]DAY [place] IV [id number] ADMIN BY JULIETA ALVAREZ HEPARIN IVP ADMIN BY FRAN ALVAREZ
[2020-06-12 11:51] LABS: Basophils # (auto) 0 10 ^3/uL (0-0.2); Basophils % (auto) 0.6 % (0.0-2.0); Eosinophils # (auto) 0.1 10 ^3/uL (0-0.8); Eosinophils % (auto) 3.5 % (0.0-7.0); Hematocrit 41.6 % (41.0-53.0); Hemoglobin 13.9 g/dL (13.5-17.5); Lymphocytes # (auto) 1.1 10 ^3/uL (0.4-5.4); Lymphocytes % (auto) 28.6 % (10.0-50.0); Mean Corpuscular Hemoglobin 32.3 pg (28.0-32.0); Mean Corpuscular Hgb Conc. 33.4 g/dL (32.0-36.0); Mean Corpuscular Volume 96.6 fL (80.0-100.0); Monocytes # (auto) 0.6 10 ^3/uL (0-1.3); Monocytes % (auto) 15.9 % (0.0-12.0); Neutrophils % (auto) 51.4 % (37.0-80.0); Nucleated Red Blood Cells % 0.3 %; Platelet Count (auto) 155 10^3/uL (140-450); Red Cell Distribution Width 13.5 % (11.8-14.3); White Blood Cell 3.8 10^3/uL (4.4-10.8)
[2020-06-12 12:24] LABS: Calcium 8.8 mg/dL (8.5-10.1); Magnesium 2.7 mg/dL (1.6-2.6); Potassium 4.1 mmol/L (3.5-5.1)
[2020-06-12 12:26] LABS: BUN/Creatinine Ratio 12.4
== END | disposition home or self-care (01) ==
LOC: CHF HDHVI 07:57
PROVIDERS: ATTEND Internal Medicine Cardiovascular Disease
DX: I13.2 Hypertensive heart and chronic kidney disease with heart failure and with stage 5 chronic kidney disease, or end stage renal disease (principal); E11.22 Type 2 diabetes mellitus with diabetic chronic kidney disease; N18.6 End stage renal disease; I50.23 Acute on chronic systolic (congestive) heart failure; I50.84 End stage heart failure; D64.9 Anemia, unspecified; J44.9 Chronic obstructive pulmonary disease, unspecified; E83.40 Disorders of magnesium metabolism, unspecified; F41.9 Anxiety disorder, unspecified; R53.83 Other fatigue; I25.10 Atherosclerotic heart disease of native coronary artery without angina pectoris; I48.11 Longstanding persistent atrial fibrillation; I42.8 Other cardiomyopathies; K21.9 Gastro-esophageal reflux disease without esophagitis; E78.5 Hyperlipidemia, unspecified; E03.9 Hypothyroidism, unspecified; F32.9 Major depressive disorder, single episode, unspecified; G89.29 Other chronic pain; E78.00 Pure hypercholesterolemia, unspecified; E11.42 Type 2 diabetes mellitus with diabetic polyneuropathy; E11.51 Type 2 diabetes mellitus with diabetic peripheral angiopathy without gangrene; E11.319 Type 2 diabetes mellitus with unspecified diabetic retinopathy without macular edema; Z85.030 Personal history of malignant carcinoid tumor of large intestine; Z85.810 Personal history of malignant neoplasm of tongue; Z85.46 Personal history of malignant neoplasm of prostate; Z90.49 Acquired absence of other specified parts of digestive tract; Z87.891 Personal history of nicotine dependence; Z79.899 Other long term (current) drug therapy; Z95.1 Presence of aortocoronary bypass graft; Z86.73 Personal history of transient ischemic attack (TIA), and cerebral infarction without residual deficits; Z79.01 Long term (current) use of anticoagulants
CPT/HCPCS: 36415; 80048; 83735; 83880; 85025; 96365; 96366; G0463; J1250; J1642

== ENCOUNTER → 2020-06-15 | Outpatient (CLI) | payer OTHER ==
[2020-06-15] VITALS (9 sets, daily range): BP systolic 95–145; BP diastolic 44–69
--- NOTE | 2020-06-15 07:50 | NUR ---
CLINIC PT ARRIVED TO THE CHF CLINIC FOR WEEKLY CHF EVAL AND TX PER MD ORDERS. A/O X4, AMBULATORY. BREATHING IS EVEN AND UNLABORED.
--- NOTE | 2020-06-15 08:21 | NUR ---
DOBUTAMINE INFUSION STARTED @ 5MCK/KG/MIN PER ORDERS. VSS. WILL CONTINUE TO MONITOR. Addendum: 06/15/20 at 0911 by JULIETA YOU RN RN OR 5MCG/KG/MIN
--- NOTE | 2020-06-15 09:53 | NUR ---
PT TOLERATING DOBUTAMINE INFUSION. INFUSION SITE BENIGN. VSS. WILL CONTINUE TO MONITOR.
--- NOTE | 2020-06-15 11:26 | NUR ---
Discharge Instructions See e-MAR for any mediations given with this visit. Patient education given on disease process. Patient verbalized understanding. Previous labs reviewed. Patient discharged in stable condition with after care instructions and follow up appointment ON MON NOTE DOBUTAMINE IV [id number] ADMIN BY JULIETA ALVAREZ HEPARIN IVP ADMIN BY JULIETA ALVAREZ
== END | disposition home or self-care (01) ==
LOC: CHF HDHVI 07:55
PROVIDERS: ATTEND Internal Medicine Cardiovascular Disease
DX: I13.2 Hypertensive heart and chronic kidney disease with heart failure and with stage 5 chronic kidney disease, or end stage renal disease (principal); E11.22 Type 2 diabetes mellitus with diabetic chronic kidney disease; N18.6 End stage renal disease; I50.23 Acute on chronic systolic (congestive) heart failure; I50.84 End stage heart failure; I25.10 Atherosclerotic heart disease of native coronary artery without angina pectoris; I48.11 Longstanding persistent atrial fibrillation; I42.8 Other cardiomyopathies; I25.2 Old myocardial infarction; F41.9 Anxiety disorder, unspecified; F32.9 Major depressive disorder, single episode, unspecified; J44.9 Chronic obstructive pulmonary disease, unspecified; K21.9 Gastro-esophageal reflux disease without esophagitis; E78.5 Hyperlipidemia, unspecified; E03.9 Hypothyroidism, unspecified; G89.29 Other chronic pain; E78.00 Pure hypercholesterolemia, unspecified; E11.42 Type 2 diabetes mellitus with diabetic polyneuropathy; E11.51 Type 2 diabetes mellitus with diabetic peripheral angiopathy without gangrene; E11.319 Type 2 diabetes mellitus with unspecified diabetic retinopathy without macular edema; E11.21 Type 2 diabetes mellitus with diabetic nephropathy; M17.12 Unilateral primary osteoarthritis, left knee; Z85.030 Personal history of malignant carcinoid tumor of large intestine; Z85.810 Personal history of malignant neoplasm of tongue; Z85.46 Personal history of malignant neoplasm of prostate; Z79.899 Other long term (current) drug therapy; Z90.49 Acquired absence of other specified parts of digestive tract; Z87.891 Personal history of nicotine dependence; Z95.5 Presence of coronary angioplasty implant and graft; Z95.1 Presence of aortocoronary bypass graft; Z79.01 Long term (current) use of anticoagulants; Z86.73 Personal history of transient ischemic attack (TIA), and cerebral infarction without residual deficits
CPT/HCPCS: 96365; 96366; G0463; J1250; J1642

== ENCOUNTER → 2020-06-17 | Outpatient (CLI) | payer OTHER ==
[2020-06-17] VITALS (9 sets, daily range): BP systolic 89–133; BP diastolic 42–73
--- NOTE | 2020-06-17 07:50 | NUR ---
CLINIC PT ARRIVED TO THE CHF CLINIC FOR WEEKLY CHF EVAL AND TX. A/OX4, AMBULATORY, BREATHING IS EVEN AND UNLABORED.
--- NOTE | 2020-06-17 08:22 | NUR ---
DOBUTAMINE IV STARTED @ 5MCG/KG/MIN PER MD ORDERS. VSS. WILL CONTINUE TO MONITOR.
--- NOTE | 2020-06-17 10:05 | NUR ---
PT TOLERATING DOBUTAMINE INFUSION. INFUSION SITE BENIGN. VSS. WILL CONTINUE TO MONITOR.
--- NOTE | 2020-06-17 11:32 | NUR ---
Discharge Instructions See e-MAR for any mediations given with this visit. Patient education given on disease process. Patient verbalized understanding. Previous labs reviewed. Patient discharged in stable condition with after care instructions and follow up appointment ON MONDAY NOTE DOBUTAMINE IV [id number] ADMIN BY JULIETA ALVAREZ HEPARIN IVP ADMIN BY JULIETA ALVAREZ
[2020-06-17 12:14] LABS: Basophils # (auto) 0 10 ^3/uL (0-0.2); Basophils % (auto) 0.5 % (0.0-2.0); Eosinophils # (auto) 0.1 10 ^3/uL (0-0.8); Hemoglobin 13.5 g/dL (13.5-17.5); Lymphocytes # (auto) 1.4 10 ^3/uL (0.4-5.4); Lymphocytes % (auto) 33.5 % (10.0-50.0); Mean Corpuscular Hemoglobin 32.3 pg (28.0-32.0); Mean Corpuscular Hgb Conc. 33.6 g/dL (32.0-36.0); Mean Corpuscular Volume 95.9 fL (80.0-100.0); Monocytes # (auto) 0.6 10 ^3/uL (0-1.3); Monocytes % (auto) 14.7 % (0.0-12.0); Neutrophils % (auto) 48.3 % (37.0-80.0); Nucleated Red Blood Cells % 0.1 %; Platelet Count (auto) 142 10^3/uL (140-450); Red Blood Cells 4.17 10^6/uL (4.5-5.90); Red Cell Distribution Width 13.7 % (11.8-14.3); White Blood Cell 4.2 10^3/uL (4.4-10.8)
[2020-06-17 12:16] LABS: Calcium 8.9 mg/dL (8.5-10.1); Potassium 4.2 mmol/L (3.5-5.1)
[2020-06-17 12:20] LABS: BUN/Creatinine Ratio 11.9; Magnesium 2.6 mg/dL (1.6-2.6)
== END | disposition home or self-care (01) ==
LOC: CHF HDHVI 08:05
PROVIDERS: ATTEND Internal Medicine Cardiovascular Disease
DX: I13.2 Hypertensive heart and chronic kidney disease with heart failure and with stage 5 chronic kidney disease, or end stage renal disease (principal); I50.23 Acute on chronic systolic (congestive) heart failure; E11.22 Type 2 diabetes mellitus with diabetic chronic kidney disease; I50.84 End stage heart failure; N18.6 End stage renal disease; D64.9 Anemia, unspecified; E83.40 Disorders of magnesium metabolism, unspecified; F41.9 Anxiety disorder, unspecified; I25.10 Atherosclerotic heart disease of native coronary artery without angina pectoris; J44.9 Chronic obstructive pulmonary disease, unspecified; K21.9 Gastro-esophageal reflux disease without esophagitis; E78.5 Hyperlipidemia, unspecified; E03.9 Hypothyroidism, unspecified; I48.91 Unspecified atrial fibrillation; F32.9 Major depressive disorder, single episode, unspecified; I42.9 Cardiomyopathy, unspecified; E11.51 Type 2 diabetes mellitus with diabetic peripheral angiopathy without gangrene; E11.42 Type 2 diabetes mellitus with diabetic polyneuropathy; I25.2 Old myocardial infarction; Z79.899 Other long term (current) drug therapy; Z90.49 Acquired absence of other specified parts of digestive tract; Z79.01 Long term (current) use of anticoagulants; Z95.5 Presence of coronary angioplasty implant and graft; Z86.73 Personal history of transient ischemic attack (TIA), and cerebral infarction without residual deficits; Z85.46 Personal history of malignant neoplasm of prostate
CPT/HCPCS: 36415; 80048; 83735; 83880; 85025; 96365; 96366; G0463; J1250; J1642

== ENCOUNTER → 2020-06-22 | Outpatient (CLI) | payer OTHER ==
[2020-06-22] VITALS (8 sets, daily range): BP systolic 94–126; BP diastolic 43–65
== END | disposition home or self-care (01) ==
LOC: CHF HDHVI 07:56
PROVIDERS: ATTEND Internal Medicine Cardiovascular Disease
DX: I13.2 Hypertensive heart and chronic kidney disease with heart failure and with stage 5 chronic kidney disease, or end stage renal disease (principal); E11.22 Type 2 diabetes mellitus with diabetic chronic kidney disease; N18.6 End stage renal disease; I50.22 Chronic systolic (congestive) heart failure; I50.84 End stage heart failure; R53.83 Other fatigue; I48.11 Longstanding persistent atrial fibrillation; F41.9 Anxiety disorder, unspecified; I25.10 Atherosclerotic heart disease of native coronary artery without angina pectoris; I42.8 Other cardiomyopathies; I25.2 Old myocardial infarction; J44.9 Chronic obstructive pulmonary disease, unspecified; K21.9 Gastro-esophageal reflux disease without esophagitis; E78.5 Hyperlipidemia, unspecified; E03.9 Hypothyroidism, unspecified; M17.12 Unilateral primary osteoarthritis, left knee; F32.9 Major depressive disorder, single episode, unspecified; E11.42 Type 2 diabetes mellitus with diabetic polyneuropathy; E78.00 Pure hypercholesterolemia, unspecified; E11.21 Type 2 diabetes mellitus with diabetic nephropathy; E11.319 Type 2 diabetes mellitus with unspecified diabetic retinopathy without macular edema; E11.51 Type 2 diabetes mellitus with diabetic peripheral angiopathy without gangrene; G89.29 Other chronic pain; Z87.891 Personal history of nicotine dependence; Z95.1 Presence of aortocoronary bypass graft; Z85.030 Personal history of malignant carcinoid tumor of large intestine; Z90.49 Acquired absence of other specified parts of digestive tract; Z85.060 Personal history of malignant carcinoid tumor of small intestine; Z79.899 Other long term (current) drug therapy; Z85.810 Personal history of malignant neoplasm of tongue; Z79.01 Long term (current) use of anticoagulants; Z85.46 Personal history of malignant neoplasm of prostate; Z95.5 Presence of coronary angioplasty implant and graft; Z86.73 Personal history of transient ischemic attack (TIA), and cerebral infarction without residual deficits
CPT/HCPCS: 96365; 96366; G0463; J1250; J1642

== ENCOUNTER → 2020-06-24 | Outpatient (CLI) | payer OTHER ==
[2020-06-24] VITALS (9 sets, daily range): BP systolic 104–131; BP diastolic 53–73
[~2020-06-24] MED LIST changes: +DOBUTamine 1000MCG/ML 250 ML IV SCH
--- NOTE | 2020-06-24 08:00 | NUR ---
PATIENT INTO CLINIC FOR SCHEDULED TREATMENT, AAOX4, AMBULATORY, BREATHING EVEN AND UNLABORED.
--- NOTE | 2020-06-24 09:30 | NUR ---
PATIENT IN CHAIR, DENIES DISCOMFORT, TALKING WITH OTHER PATIENTS. WILL CONTINUE TO MONITOR.
--- NOTE | 2020-06-24 11:00 | NUR ---
PATIENT INFUSION ALMOST COMPLETED, PATIENT DENIES ANY DISCOMFORT. WILL CONTINUE TO MONITOR.
--- NOTE | 2020-06-24 11:21 | NUR ---
Ayah Cath Removal Quinones needle D/C'd by Fernanda ALVAREZ and Roscoe RN after Heparin flush per protocol. See e-MAR for medications given during this visit. Sterile occlusive dressing to site. Patient tolerated procedure well. Site benign post infusion.
--- NOTE | 2020-06-24 11:22 | NUR ---
PATIENT EDUCATION ON PAH DISEASE PROCESS PROVIDED BY MACY ALVAREZ, PATIENT VERBALIZED UNDERSTANDING.
--- NOTE | 2020-06-24 11:40 | NUR ---
CHF CLINIC Discharge Instructions See e-MAR for any mediations given with this visit. Patient education given on disease process. Patient verbalized understanding. Previous labs reviewed. Patient discharged in stable condition with after care instructions and follow up appointment. NOTE DOBUTAMINE [id number] ADMIN BY GISELA ALAVREZ. HEPARIN ADMIN BY PRAVIN ALVAREZ.
== END | disposition home or self-care (01) ==
LOC: CHF HDHVI 07:55
PROVIDERS: ATTEND Internal Medicine Cardiovascular Disease
DX: I13.2 Hypertensive heart and chronic kidney disease with heart failure and with stage 5 chronic kidney disease, or end stage renal disease (principal); E11.22 Type 2 diabetes mellitus with diabetic chronic kidney disease; I50.22 Chronic systolic (congestive) heart failure; N18.6 End stage renal disease; I25.10 Atherosclerotic heart disease of native coronary artery without angina pectoris; I48.11 Longstanding persistent atrial fibrillation; I25.2 Old myocardial infarction; I42.8 Other cardiomyopathies; J44.9 Chronic obstructive pulmonary disease, unspecified; K21.9 Gastro-esophageal reflux disease without esophagitis; E11.21 Type 2 diabetes mellitus with diabetic nephropathy; E11.42 Type 2 diabetes mellitus with diabetic polyneuropathy; E11.51 Type 2 diabetes mellitus with diabetic peripheral angiopathy without gangrene; E11.319 Type 2 diabetes mellitus with unspecified diabetic retinopathy without macular edema; E78.5 Hyperlipidemia, unspecified; E78.00 Pure hypercholesterolemia, unspecified; E03.9 Hypothyroidism, unspecified; M17.12 Unilateral primary osteoarthritis, left knee; G89.29 Other chronic pain; F31.9 Bipolar disorder, unspecified; F41.9 Anxiety disorder, unspecified; R53.83 Other fatigue; Z87.891 Personal history of nicotine dependence; Z95.5 Presence of coronary angioplasty implant and graft; Z85.810 Personal history of malignant neoplasm of tongue; Z90.49 Acquired absence of other specified parts of digestive tract; Z85.060 Personal history of malignant carcinoid tumor of small intestine; Z79.899 Other long term (current) drug therapy; Z85.030 Personal history of malignant carcinoid tumor of large intestine; Z85.46 Personal history of malignant neoplasm of prostate; Z95.1 Presence of aortocoronary bypass graft; Z95.810 Presence of automatic (implantable) cardiac defibrillator; Z79.01 Long term (current) use of anticoagulants; Z86.73 Personal history of transient ischemic attack (TIA), and cerebral infarction without residual deficits
CPT/HCPCS: 96365; 96366; G0463; J1250; J1642

== ENCOUNTER → 2020-06-26 | Outpatient (CLI) | payer OTHER ==
[2020-06-26] VITALS (10 sets, daily range): BP systolic 93–134; BP diastolic 46–71
[~2020-06-26] VITALS: Ht 30.5 cm; Wt 89.1 kg
[~2020-06-26] MED LIST changes: -DOBUTamine 1000MCG/ML 250 ML IV SCH
--- NOTE | 2020-06-26 07:45 | NUR ---
PT. TO CHF CLINIC FOR DOBUTREX INFUSION PER MD ORDER. PT. STATES FEELING BETTER SINCE LAST TX, AND HAS BEEN ON NEW PAH MED., TADALAFIL NOW FOR APPROX. 3 WEEKS. 20MG BID AND FEELING GOOD. SEE NSG ASSESS. MD ORDERS RECEIVED AND CARRIED OUT.
--- NOTE | 2020-06-26 08:04 | NUR ---
Clinic Provider Clinic Provider into see pt with new orders received and carried out. Dobutamine gtt started at {5}mcg/kg/hr per MD order.
--- NOTE | 2020-06-26 11:30 | NUR ---
CHF Clinic Discharge Instructions See e-MAR for any mediations given with this visit. Patient education given on disease process. Patient verbalized understanding. Previous labs reviewed. Patient discharged in stable condition with after care instructions and follow up appointment. Note Dobutamine [id number] admin by Roscoe ALVAREZ. Heparin IVP admin by Aisha ALVAREZ.
== END | disposition home or self-care (01) ==
LOC: CHF HDHVI 07:55
PROVIDERS: ATTEND Internal Medicine Cardiovascular Disease
DX: I13.2 Hypertensive heart and chronic kidney disease with heart failure and with stage 5 chronic kidney disease, or end stage renal disease (principal); E11.22 Type 2 diabetes mellitus with diabetic chronic kidney disease; N18.6 End stage renal disease; I50.22 Chronic systolic (congestive) heart failure; I50.84 End stage heart failure; I25.10 Atherosclerotic heart disease of native coronary artery without angina pectoris; I27.21 Secondary pulmonary arterial hypertension; I48.91 Unspecified atrial fibrillation; I25.2 Old myocardial infarction; I42.8 Other cardiomyopathies; F41.9 Anxiety disorder, unspecified; F32.9 Major depressive disorder, single episode, unspecified; J44.9 Chronic obstructive pulmonary disease, unspecified; K21.9 Gastro-esophageal reflux disease without esophagitis; E78.5 Hyperlipidemia, unspecified; E03.9 Hypothyroidism, unspecified; G89.29 Other chronic pain; E78.00 Pure hypercholesterolemia, unspecified; E11.21 Type 2 diabetes mellitus with diabetic nephropathy; E11.42 Type 2 diabetes mellitus with diabetic polyneuropathy; E11.51 Type 2 diabetes mellitus with diabetic peripheral angiopathy without gangrene; E11.319 Type 2 diabetes mellitus with unspecified diabetic retinopathy without macular edema; M17.12 Unilateral primary osteoarthritis, left knee; Z85.030 Personal history of malignant carcinoid tumor of large intestine; Z85.060 Personal history of malignant carcinoid tumor of small intestine; Z85.810 Personal history of malignant neoplasm of tongue; Z87.891 Personal history of nicotine dependence; Z95.1 Presence of aortocoronary bypass graft; Z79.899 Other long term (current) drug therapy; Z90.49 Acquired absence of other specified parts of digestive tract; Z95.810 Presence of automatic (implantable) cardiac defibrillator; Z95.5 Presence of coronary angioplasty implant and graft; Z86.73 Personal history of transient ischemic attack (TIA), and cerebral infarction without residual deficits; Z79.01 Long term (current) use of anticoagulants
CPT/HCPCS: 96365; 96366; G0463; J1250; J1642

== ENCOUNTER → 2020-06-29 | Outpatient (CLI) | payer OTHER ==
[~2020-06-29] VITALS: Ht 30.5 cm; Wt 88.5 kg
[2020-06-29] VITALS (9 sets, daily range): BP systolic 91–132; BP diastolic 44–70
--- NOTE | 2020-06-29 07:50 | NUR ---
CLINIC PT ARRIVED TO THE CHF CLINIC FOR WEEKLY CHF EVAL AND TX. A/OX4, AMBULATORY. BREATHING IS EVEN AND UNLABORED.
--- NOTE | 2020-06-29 08:08 | NUR ---
DOBUTAMINE IV STARTED @ 5MCG/KG/MIN PER MD ORDERS. VSS. WILL CONTINUE TO MONITOR.
--- NOTE | 2020-06-29 09:47 | NUR ---
PT TOLERATING DOBUTAMINE INFUSION. VSS. WILL CONTINUE TO MONITOR. Addendum: 06/29/20 at 0948 by JULIETA YOU RN RN AK INFUSION SITE BENIGN
--- NOTE | 2020-06-29 11:14 | NUR ---
Discharge Instructions See e-MAR for any mediations given with this visit. Patient education given on disease process. Patient verbalized understanding. Previous labs reviewed. Patient discharged in stable condition with after care instructions and follow up appointment ON MON. NOTE DOBUTAMINE IV [id number] ADMIN BY GISELA ALVAREZ HEPARIN IVP ADMIN BY JULIETA ALVAREZ
== END | disposition home or self-care (01) ==
LOC: CHF HDHVI 07:54
PROVIDERS: ATTEND Internal Medicine Cardiovascular Disease
DX: I13.2 Hypertensive heart and chronic kidney disease with heart failure and with stage 5 chronic kidney disease, or end stage renal disease (principal); E11.22 Type 2 diabetes mellitus with diabetic chronic kidney disease; N18.6 End stage renal disease; I50.22 Chronic systolic (congestive) heart failure; I50.84 End stage heart failure; R53.83 Other fatigue; I25.10 Atherosclerotic heart disease of native coronary artery without angina pectoris; I42.8 Other cardiomyopathies; I48.11 Longstanding persistent atrial fibrillation; I27.21 Secondary pulmonary arterial hypertension; I25.2 Old myocardial infarction; J44.9 Chronic obstructive pulmonary disease, unspecified; F41.9 Anxiety disorder, unspecified; K21.9 Gastro-esophageal reflux disease without esophagitis; E78.5 Hyperlipidemia, unspecified; E03.9 Hypothyroidism, unspecified; F32.9 Major depressive disorder, single episode, unspecified; E78.00 Pure hypercholesterolemia, unspecified; E11.42 Type 2 diabetes mellitus with diabetic polyneuropathy; E11.51 Type 2 diabetes mellitus with diabetic peripheral angiopathy without gangrene; E11.319 Type 2 diabetes mellitus with unspecified diabetic retinopathy without macular edema; M17.12 Unilateral primary osteoarthritis, left knee; Z85.030 Personal history of malignant carcinoid tumor of large intestine; Z85.060 Personal history of malignant carcinoid tumor of small intestine; Z85.810 Personal history of malignant neoplasm of tongue; Z87.891 Personal history of nicotine dependence; Z95.1 Presence of aortocoronary bypass graft; Z95.810 Presence of automatic (implantable) cardiac defibrillator; Z86.73 Personal history of transient ischemic attack (TIA), and cerebral infarction without residual deficits; Z79.899 Other long term (current) drug therapy; Z90.49 Acquired absence of other specified parts of digestive tract; Z79.01 Long term (current) use of anticoagulants; Z85.46 Personal history of malignant neoplasm of prostate
CPT/HCPCS: 96365; 96366; G0463; J1250; J1642

== ENCOUNTER → 2020-07-01 | Outpatient (CLI) | payer OTHER ==
[2020-07-01] VITALS (9 sets, daily range): BP systolic 112–130; BP diastolic 54–76
--- NOTE | 2020-07-01 07:55 | NUR ---
CLINIC PT ARRIVED TO THE CHF CLINIC FOR WEEKLY CHF EVAL AND TX PER MD ORDERS. A/OX4, AMBULATORY. BREATHING IS EVEN AND UNLABORED.
--- NOTE | 2020-07-01 08:11 | NUR ---
Yaah Cath Insertion 20 gauge Ayah Cath inserted using sterile technique in the R upper chest with occlusive dressing over saucedo needle. Patient tolerated procedure well. Ordered labs drawn and sent. See e-MAR for medications given during this visit. NOTE INSERTED BY JULIETA ALVAREZ
--- NOTE | 2020-07-01 08:14 | NUR ---
DOBUTAMINE IV STARTED @ 5 MCG/KG/MIN PER MD ORDERS. VSS. WILL CONTINUE TO MONITOR.
--- NOTE | 2020-07-01 09:42 | NUR ---
PT TOLERATING DOBUTAMINE INFUSION. INFUSION SITE BENIGN. VSS. WILL CONTINUE TO MONITOR.
--- NOTE | 2020-07-01 11:29 | NUR ---
Discharge Instructions See e-MAR for any mediations given with this visit. Patient education given on disease process. Patient verbalized understanding. Previous labs reviewed. Patient discharged in stable condition with after care instructions and follow up appointment ON MONDAY. NOTE DOBUTAMINE IV [id number] ADMIN BY JULIETA ALVAREZ HEPARIN IVP ADMIN BY JULIETA ALVAREZ
[2020-07-01 11:59] LABS: Basophils # (auto) 0 10 ^3/uL (0-0.2); Eosinophils # (auto) 0.2 10 ^3/uL (0-0.8); Hematocrit 41.1 % (41.0-53.0); Hemoglobin 13.8 g/dL (13.5-17.5); Lymphocytes # (auto) 1.5 10 ^3/uL (0.4-5.4); Lymphocytes % (auto) 35.4 % (10.0-50.0); Mean Corpuscular Hgb Conc. 33.4 g/dL (32.0-36.0); Mean Corpuscular Volume 95.7 fL (80.0-100.0); Monocytes # (auto) 0.5 10 ^3/uL (0-1.3); Monocytes % (auto) 12.7 % (0.0-12.0); Neutrophils % (auto) 46.9 % (37.0-80.0); Nucleated Red Blood Cells % 0.2 %; Platelet Count (auto) 144 10^3/uL (140-450); Red Cell Distribution Width 13.4 % (11.8-14.3); White Blood Cell 4.2 10^3/uL (4.4-10.8)
[2020-07-01 12:05] LABS: Calcium 8.8 mg/dL (8.5-10.1); Magnesium 2.7 mg/dL (1.6-2.6)
[2020-07-01 12:08] LABS: BUN/Creatinine Ratio 15.1
== END | disposition home or self-care (01) ==
LOC: CHF HDHVI 07:54
PROVIDERS: ATTEND Internal Medicine Cardiovascular Disease
DX: I13.2 Hypertensive heart and chronic kidney disease with heart failure and with stage 5 chronic kidney disease, or end stage renal disease (principal); E11.22 Type 2 diabetes mellitus with diabetic chronic kidney disease; N18.6 End stage renal disease; I50.23 Acute on chronic systolic (congestive) heart failure; I50.84 End stage heart failure; R53.83 Other fatigue; I25.10 Atherosclerotic heart disease of native coronary artery without angina pectoris; I48.11 Longstanding persistent atrial fibrillation; I25.2 Old myocardial infarction; I42.8 Other cardiomyopathies; I27.21 Secondary pulmonary arterial hypertension; D64.9 Anemia, unspecified; E83.40 Disorders of magnesium metabolism, unspecified; F41.9 Anxiety disorder, unspecified; J44.9 Chronic obstructive pulmonary disease, unspecified; K21.9 Gastro-esophageal reflux disease without esophagitis; E03.9 Hypothyroidism, unspecified; F32.9 Major depressive disorder, single episode, unspecified; E78.00 Pure hypercholesterolemia, unspecified; E11.21 Type 2 diabetes mellitus with diabetic nephropathy; E11.42 Type 2 diabetes mellitus with diabetic polyneuropathy; E11.319 Type 2 diabetes mellitus with unspecified diabetic retinopathy without macular edema; M17.12 Unilateral primary osteoarthritis, left knee; G89.29 Other chronic pain; Z95.5 Presence of coronary angioplasty implant and graft; Z85.030 Personal history of malignant carcinoid tumor of large intestine; Z79.899 Other long term (current) drug therapy; Z85.060 Personal history of malignant carcinoid tumor of small intestine; Z85.810 Personal history of malignant neoplasm of tongue; Z85.46 Personal history of malignant neoplasm of prostate; Z79.01 Long term (current) use of anticoagulants; Z87.891 Personal history of nicotine dependence; Z95.810 Presence of automatic (implantable) cardiac defibrillator; Z86.73 Personal history of transient ischemic attack (TIA), and cerebral infarction without residual deficits
CPT/HCPCS: 36415; 80048; 83735; 83880; 85025; 96365; 96366; G0463; J1250; J1642

== ENCOUNTER → 2020-07-03 | Outpatient (CLI) | payer OTHER ==
[2020-07-03] VITALS (9 sets, daily range): BP systolic 109–136; BP diastolic 53–69
--- NOTE | 2020-07-03 07:55 | NUR ---
CLINIC PT ARRIVED TO THE CHF CLINIC FOR WEEKLY CHF EVAL AND TX PER MD ORDERS. A/OX4, AMBULATORY BREATHING IS EVEN AND UNLABORED.
--- NOTE | 2020-07-03 08:06 | NUR ---
DOBUTAMINE IV STARTED @ 5MCG/KG/MIN PER MD ORDERS. VSS. WILL CONTINUE TO MONITOR.
--- NOTE | 2020-07-03 09:56 | NUR ---
PT TOLERATING DOBUTAMINE INFUSION. INFUSION SITE BENIGN. VSS. WILL CONTINUE TO MONITOR.
--- NOTE | 2020-07-03 11:14 | NUR ---
Discharge Instructions See e-MAR for any mediations given with this visit. Patient education given on disease process. Patient verbalized understanding. Previous labs reviewed. Patient discharged in stable condition with after care instructions and follow up appointment ON MONDAY. NOTE DOBUTAMINE IV [id number] ADMIN BY JULIETA ALVAREZ HEPARIN IVP ADMIN BY JULIETA ALVAREZ
== END | disposition home or self-care (01) ==
LOC: CHF HDHVI 08:17
PROVIDERS: ATTEND Internal Medicine Cardiovascular Disease
DX: I13.2 Hypertensive heart and chronic kidney disease with heart failure and with stage 5 chronic kidney disease, or end stage renal disease (principal); E11.22 Type 2 diabetes mellitus with diabetic chronic kidney disease; N18.6 End stage renal disease; I50.22 Chronic systolic (congestive) heart failure; I50.84 End stage heart failure; R53.83 Other fatigue; I25.10 Atherosclerotic heart disease of native coronary artery without angina pectoris; I48.11 Longstanding persistent atrial fibrillation; F41.9 Anxiety disorder, unspecified; I27.21 Secondary pulmonary arterial hypertension; I25.2 Old myocardial infarction; I42.8 Other cardiomyopathies; J44.9 Chronic obstructive pulmonary disease, unspecified; K21.9 Gastro-esophageal reflux disease without esophagitis; E03.9 Hypothyroidism, unspecified; F32.9 Major depressive disorder, single episode, unspecified; G89.29 Other chronic pain; E78.00 Pure hypercholesterolemia, unspecified; E11.21 Type 2 diabetes mellitus with diabetic nephropathy; E11.42 Type 2 diabetes mellitus with diabetic polyneuropathy; E11.319 Type 2 diabetes mellitus with unspecified diabetic retinopathy without macular edema; M17.12 Unilateral primary osteoarthritis, left knee; E78.5 Hyperlipidemia, unspecified; E11.51 Type 2 diabetes mellitus with diabetic peripheral angiopathy without gangrene; Z79.899 Other long term (current) drug therapy; Z85.030 Personal history of malignant carcinoid tumor of large intestine; Z85.060 Personal history of malignant carcinoid tumor of small intestine; Z85.810 Personal history of malignant neoplasm of tongue; Z85.46 Personal history of malignant neoplasm of prostate; Z87.891 Personal history of nicotine dependence; Z95.810 Presence of automatic (implantable) cardiac defibrillator; Z95.5 Presence of coronary angioplasty implant and graft; Z86.73 Personal history of transient ischemic attack (TIA), and cerebral infarction without residual deficits; Z79.01 Long term (current) use of anticoagulants; Z90.49 Acquired absence of other specified parts of digestive tract; Z95.1 Presence of aortocoronary bypass graft
CPT/HCPCS: 96365; 96366; G0463; J1250; J1642

== ENCOUNTER → 2020-07-06 | Outpatient (CLI) | payer OTHER ==
[~2020-07-06] VITALS: Ht 30.5 cm; Wt 88.6 kg
[2020-07-06] VITALS (7 sets, daily range): BP systolic 93–132; BP diastolic 44–69
== END | disposition home or self-care (01) ==
LOC: CHF HDHVI 08:10
PROVIDERS: ATTEND Internal Medicine Cardiovascular Disease
DX: I13.2 Hypertensive heart and chronic kidney disease with heart failure and with stage 5 chronic kidney disease, or end stage renal disease (principal); I50.22 Chronic systolic (congestive) heart failure; R53.83 Other fatigue; F41.9 Anxiety disorder, unspecified; I25.10 Atherosclerotic heart disease of native coronary artery without angina pectoris; I27.21 Secondary pulmonary arterial hypertension; I48.11 Longstanding persistent atrial fibrillation; I25.2 Old myocardial infarction; I42.8 Other cardiomyopathies; J44.9 Chronic obstructive pulmonary disease, unspecified; I50.84 End stage heart failure; N18.6 End stage renal disease; K21.9 Gastro-esophageal reflux disease without esophagitis; E78.5 Hyperlipidemia, unspecified; E03.9 Hypothyroidism, unspecified; F32.9 Major depressive disorder, single episode, unspecified; G89.29 Other chronic pain; E78.00 Pure hypercholesterolemia, unspecified; E11.22 Type 2 diabetes mellitus with diabetic chronic kidney disease; M17.12 Unilateral primary osteoarthritis, left knee; Z79.899 Other long term (current) drug therapy; Z85.030 Personal history of malignant carcinoid tumor of large intestine; Z85.060 Personal history of malignant carcinoid tumor of small intestine; Z85.810 Personal history of malignant neoplasm of tongue; Z85.46 Personal history of malignant neoplasm of prostate; Z79.01 Long term (current) use of anticoagulants; Z95.810 Presence of automatic (implantable) cardiac defibrillator; Z95.5 Presence of coronary angioplasty implant and graft; Z90.49 Acquired absence of other specified parts of digestive tract; Z86.73 Personal history of transient ischemic attack (TIA), and cerebral infarction without residual deficits
CPT/HCPCS: 96365; 96366; G0463; J1250; J1642

== ENCOUNTER → 2020-07-08 | Outpatient (CLI) | payer OTHER ==
[2020-07-08] VITALS (9 sets, daily range): BP systolic 108–133; BP diastolic 54–70
[~2020-07-08] MED LIST changes: +CYANOCOBALAMIN (B-12) 1000 MCG/1 ML VIAL IM ONE; +CYANOCOBALAMIN (B-12) 1000 MCG/1 ML VIAL ONE
== END | disposition home or self-care (01) ==
LOC: CHF HDHVI 08:02
PROVIDERS: ATTEND Internal Medicine Cardiovascular Disease
DX: I13.2 Hypertensive heart and chronic kidney disease with heart failure and with stage 5 chronic kidney disease, or end stage renal disease (principal); E11.22 Type 2 diabetes mellitus with diabetic chronic kidney disease; N18.6 End stage renal disease; I50.22 Chronic systolic (congestive) heart failure; I50.84 End stage heart failure; R53.83 Other fatigue; I25.10 Atherosclerotic heart disease of native coronary artery without angina pectoris; I48.11 Longstanding persistent atrial fibrillation; I27.21 Secondary pulmonary arterial hypertension; J44.9 Chronic obstructive pulmonary disease, unspecified; F41.9 Anxiety disorder, unspecified; K21.9 Gastro-esophageal reflux disease without esophagitis; E78.5 Hyperlipidemia, unspecified; E03.9 Hypothyroidism, unspecified; F32.9 Major depressive disorder, single episode, unspecified; E78.00 Pure hypercholesterolemia, unspecified; M17.12 Unilateral primary osteoarthritis, left knee; E11.21 Type 2 diabetes mellitus with diabetic nephropathy; E11.42 Type 2 diabetes mellitus with diabetic polyneuropathy; E11.51 Type 2 diabetes mellitus with diabetic peripheral angiopathy without gangrene; E11.319 Type 2 diabetes mellitus with unspecified diabetic retinopathy without macular edema; Z95.1 Presence of aortocoronary bypass graft; Z90.49 Acquired absence of other specified parts of digestive tract; Z87.891 Personal history of nicotine dependence; Z85.030 Personal history of malignant carcinoid tumor of large intestine; Z85.060 Personal history of malignant carcinoid tumor of small intestine; Z85.810 Personal history of malignant neoplasm of tongue; Z85.46 Personal history of malignant neoplasm of prostate; Z95.810 Presence of automatic (implantable) cardiac defibrillator; Z95.5 Presence of coronary angioplasty implant and graft; Z86.73 Personal history of transient ischemic attack (TIA), and cerebral infarction without residual deficits; Z79.01 Long term (current) use of anticoagulants
CPT/HCPCS: 96365; 96366; 96372; G0463; J1250; J1642; J3420

== ENCOUNTER → 2020-07-10 | Outpatient (CLI) | payer OTHER ==
[2020-07-10] VITALS (9 sets, daily range): BP systolic 104–134; BP diastolic 54–71
[~2020-07-10] MED LIST changes: -CYANOCOBALAMIN (B-12) 1000 MCG/1 ML VIAL IM ONE; -CYANOCOBALAMIN (B-12) 1000 MCG/1 ML VIAL ONE
== END | disposition home or self-care (01) ==
LOC: CHF HDHVI 08:08
PROVIDERS: ATTEND Internal Medicine Cardiovascular Disease
DX: I13.2 Hypertensive heart and chronic kidney disease with heart failure and with stage 5 chronic kidney disease, or end stage renal disease (principal); E11.22 Type 2 diabetes mellitus with diabetic chronic kidney disease; N18.6 End stage renal disease; I50.22 Chronic systolic (congestive) heart failure; I50.84 End stage heart failure; I48.11 Longstanding persistent atrial fibrillation; I25.2 Old myocardial infarction; I42.8 Other cardiomyopathies; R53.83 Other fatigue; F41.9 Anxiety disorder, unspecified; K21.9 Gastro-esophageal reflux disease without esophagitis; E78.5 Hyperlipidemia, unspecified; E03.9 Hypothyroidism, unspecified; F32.9 Major depressive disorder, single episode, unspecified; E78.00 Pure hypercholesterolemia, unspecified; M17.12 Unilateral primary osteoarthritis, left knee; G89.29 Other chronic pain; Z79.899 Other long term (current) drug therapy; Z85.030 Personal history of malignant carcinoid tumor of large intestine; Z85.060 Personal history of malignant carcinoid tumor of small intestine; Z85.810 Personal history of malignant neoplasm of tongue; Z90.49 Acquired absence of other specified parts of digestive tract; Z79.01 Long term (current) use of anticoagulants; Z85.46 Personal history of malignant neoplasm of prostate; Z87.891 Personal history of nicotine dependence; Z95.1 Presence of aortocoronary bypass graft; Z95.810 Presence of automatic (implantable) cardiac defibrillator; Z95.5 Presence of coronary angioplasty implant and graft
CPT/HCPCS: 96365; 96366; G0463; J1250; J1642

== ENCOUNTER → 2020-07-13 | Outpatient (CLI) | payer OTHER ==
[2020-07-13] VITALS (9 sets, daily range): BP systolic 105–137; BP diastolic 50–76
[~2020-07-13] VITALS: Ht 30.5 cm; Wt 88.7 kg
--- NOTE | 2020-07-13 07:54 | NUR ---
CLINIC PT ARRIVED TO THE CHF CLINIC FOR SCHEDULED WEEKLY CHF EVAL AND TX. A/OX4, AMBULATORY. BREATHING IS EVEN AND UNLABORED.
--- NOTE | 2020-07-13 08:11 | NUR ---
DOBUTAMINE IV STARTED @ 5MCG/KG/MIN PER MD ORDERS. VSS. WILL CONTINUE TO MONITOR.
--- NOTE | 2020-07-13 09:50 | NUR ---
PT TOLERATING DOBUTAMINE INFUSION. PORT SITE BENIGN. VSS. WILL CONTINUE TO MONITOR.
--- NOTE | 2020-07-13 11:19 | NUR ---
Discharge Instructions See e-MAR for any mediations given with this visit. Patient education given on disease process. Patient verbalized understanding. Previous labs reviewed. Patient discharged in stable condition with after care instructions and follow up appointment ON MON. NOTE DOBUTAMINE IV [id number] ADMIN BY JULIETA ALVAREZ HEPARIN IVP ADMIN BY JULIETA ALVAREZ
[2020-07-13 16:10] LABS: BUN/Creatinine Ratio 15.3; Calcium 8.8 mg/dL (8.5-10.1); Potassium 4.1 mmol/L (3.5-5.1)
== END | disposition home or self-care (01) ==
LOC: CHF HDHVI 07:59
PROVIDERS: ATTEND Internal Medicine Cardiovascular Disease
DX: I13.2 Hypertensive heart and chronic kidney disease with heart failure and with stage 5 chronic kidney disease, or end stage renal disease (principal); E11.22 Type 2 diabetes mellitus with diabetic chronic kidney disease; N18.6 End stage renal disease; I50.23 Acute on chronic systolic (congestive) heart failure; I50.84 End stage heart failure; I25.10 Atherosclerotic heart disease of native coronary artery without angina pectoris; I48.11 Longstanding persistent atrial fibrillation; I27.21 Secondary pulmonary arterial hypertension; I25.2 Old myocardial infarction; I42.8 Other cardiomyopathies; F41.9 Anxiety disorder, unspecified; K21.9 Gastro-esophageal reflux disease without esophagitis; E78.5 Hyperlipidemia, unspecified; E03.9 Hypothyroidism, unspecified; F32.9 Major depressive disorder, single episode, unspecified; G89.29 Other chronic pain; E78.00 Pure hypercholesterolemia, unspecified; M17.12 Unilateral primary osteoarthritis, left knee; E11.21 Type 2 diabetes mellitus with diabetic nephropathy; E11.42 Type 2 diabetes mellitus with diabetic polyneuropathy; E11.51 Type 2 diabetes mellitus with diabetic peripheral angiopathy without gangrene; E11.319 Type 2 diabetes mellitus with unspecified diabetic retinopathy without macular edema; Z79.899 Other long term (current) drug therapy; Z85.030 Personal history of malignant carcinoid tumor of large intestine; Z85.060 Personal history of malignant carcinoid tumor of small intestine; Z85.810 Personal history of malignant neoplasm of tongue; Z85.46 Personal history of malignant neoplasm of prostate; Z87.891 Personal history of nicotine dependence; Z95.1 Presence of aortocoronary bypass graft; Z95.810 Presence of automatic (implantable) cardiac defibrillator; Z95.5 Presence of coronary angioplasty implant and graft; Z79.01 Long term (current) use of anticoagulants
CPT/HCPCS: 36415; 80048; 83880; 96365; 96366; G0463; J1250; J1642

== ENCOUNTER → 2020-07-15 | Outpatient (CLI) | payer OTHER ==
[2020-07-15] VITALS (9 sets, daily range): BP systolic 109–137; BP diastolic 54–72
--- NOTE | 2020-07-15 07:57 | NUR ---
CLINIC PT ARRIVED TO THE CHF CLINIC FOR WEEKLY CHF EVAL AND TX PER MD ORDERS. A/OX4, AMBULATORY. BREATHING IS EVEN AND UNLABORED. PT IS UP 2.4 LBS SINCE LAST VISIT 2 DAYS AGO 07/13/20
--- NOTE | 2020-07-15 08:05 | NUR ---
DOBUTAMINE IV STARTED @ 5MCG/KG/MIN PER MD ORDERS. VSS. WILL CONTINUE TO MONITOR.
--- NOTE | 2020-07-15 09:52 | NUR ---
PT TOLERATING DOBUTAMINE INFUSION. PORT SITE BENIGN. VSS. WILL CONTINUE TO MONITOR.
--- NOTE | 2020-07-15 11:11 | NUR ---
Discharge Instructions See e-MAR for any mediations given with this visit. Patient education given on disease process. Patient verbalized understanding. Previous labs reviewed. Patient discharged in stable condition with after care instructions and follow up appointment ON MONDAY. NOTE DOBUTAMINE IV [id number] ADMIN BY JULIETA ALVAREZ HEPARIN IVP ADMIN BY GISELA ALVAREZ
== END | disposition home or self-care (01) ==
LOC: CHF HDHVI 08:04
PROVIDERS: ATTEND Internal Medicine Cardiovascular Disease
DX: I13.2 Hypertensive heart and chronic kidney disease with heart failure and with stage 5 chronic kidney disease, or end stage renal disease (principal); E11.22 Type 2 diabetes mellitus with diabetic chronic kidney disease; I50.23 Acute on chronic systolic (congestive) heart failure; N18.6 End stage renal disease; I25.10 Atherosclerotic heart disease of native coronary artery without angina pectoris; I48.11 Longstanding persistent atrial fibrillation; I25.2 Old myocardial infarction; I42.8 Other cardiomyopathies; J44.9 Chronic obstructive pulmonary disease, unspecified; K21.9 Gastro-esophageal reflux disease without esophagitis; E11.21 Type 2 diabetes mellitus with diabetic nephropathy; E11.42 Type 2 diabetes mellitus with diabetic polyneuropathy; E11.51 Type 2 diabetes mellitus with diabetic peripheral angiopathy without gangrene; E11.319 Type 2 diabetes mellitus with unspecified diabetic retinopathy without macular edema; E78.5 Hyperlipidemia, unspecified; E78.00 Pure hypercholesterolemia, unspecified; E03.9 Hypothyroidism, unspecified; M17.12 Unilateral primary osteoarthritis, left knee; G89.29 Other chronic pain; F31.9 Bipolar disorder, unspecified; F41.9 Anxiety disorder, unspecified; R53.83 Other fatigue; Z87.891 Personal history of nicotine dependence; Z95.5 Presence of coronary angioplasty implant and graft; Z85.810 Personal history of malignant neoplasm of tongue; Z90.49 Acquired absence of other specified parts of digestive tract; Z85.060 Personal history of malignant carcinoid tumor of small intestine; Z79.899 Other long term (current) drug therapy; Z85.030 Personal history of malignant carcinoid tumor of large intestine; Z85.46 Personal history of malignant neoplasm of prostate; Z95.1 Presence of aortocoronary bypass graft; Z95.810 Presence of automatic (implantable) cardiac defibrillator; Z79.01 Long term (current) use of anticoagulants; Z86.73 Personal history of transient ischemic attack (TIA), and cerebral infarction without residual deficits
CPT/HCPCS: 96365; 96366; G0463; J1250; J1642

== ENCOUNTER → 2020-07-17 | Outpatient (CLI) | payer OTHER ==
[2020-07-17] VITALS (9 sets, daily range): BP systolic 107–131; BP diastolic 55–68
--- NOTE | 2020-07-17 07:58 | NUR ---
CLINIC PT ARRIVED TO THE CHF CLINIC FOR WEEKLY CHF EVAL AND TX. A/OX4, AMBULATORY. BREATHING IS EVEN AND UNLABORED. PT WT IS THE SAME HIS PREVIOUS VISIT ON 07/15/20
--- NOTE | 2020-07-17 08:06 | NUR ---
DOBUTAMINE IV STARTED @ 5MCG/KG/MIN PER MD ORDERS. VSS. WILL CONTINUE TO MONITOR.
--- NOTE | 2020-07-17 09:05 | NUR ---
Ayah Cath Insertion 20 gauge Ayah Cath inserted using sterile technique in the R upper chest with occlusive dressing over saucedo needle. Patient tolerated procedure well. See e-MAR for medications given during this visit. NOTE INSERTED BY JULIETA ALVAREZ Addendum: 07/17/20 at 0906 by JULIETA YOU RN RN UT TIME 08 NOT 904
--- NOTE | 2020-07-17 09:51 | NUR ---
PT TOLERATING DOBUTAMINE INFUSION. PORT SITE BENIGN. VSS. WILL CONTINUE TO MONITOR.
--- NOTE | 2020-07-17 11:16 | NUR ---
Discharge Instructions See e-MAR for any mediations given with this visit. Patient education given on disease process. Patient verbalized understanding. Previous labs reviewed. Patient discharged in stable condition with after care instructions and follow up appointment ON MONDAY. NOTE DOBUTAMINE IV [id number] ADMIN BY JULIETA ALVAREZ HEPARIN IVP ADMIN BY JULIETA ALVAREZ
== END | disposition home or self-care (01) ==
LOC: CHF HDHVI 08:03
PROVIDERS: ATTEND Internal Medicine Cardiovascular Disease
DX: I13.2 Hypertensive heart and chronic kidney disease with heart failure and with stage 5 chronic kidney disease, or end stage renal disease (principal); E11.22 Type 2 diabetes mellitus with diabetic chronic kidney disease; N18.6 End stage renal disease; I50.22 Chronic systolic (congestive) heart failure; I50.84 End stage heart failure; R53.83 Other fatigue; I25.10 Atherosclerotic heart disease of native coronary artery without angina pectoris; I48.11 Longstanding persistent atrial fibrillation; I25.2 Old myocardial infarction; I42.8 Other cardiomyopathies; I27.21 Secondary pulmonary arterial hypertension; F32.9 Major depressive disorder, single episode, unspecified; F41.9 Anxiety disorder, unspecified; J44.9 Chronic obstructive pulmonary disease, unspecified; K21.9 Gastro-esophageal reflux disease without esophagitis; E78.5 Hyperlipidemia, unspecified; E03.9 Hypothyroidism, unspecified; G89.29 Other chronic pain; E78.00 Pure hypercholesterolemia, unspecified; E11.21 Type 2 diabetes mellitus with diabetic nephropathy; E11.42 Type 2 diabetes mellitus with diabetic polyneuropathy; E11.51 Type 2 diabetes mellitus with diabetic peripheral angiopathy without gangrene; E11.319 Type 2 diabetes mellitus with unspecified diabetic retinopathy without macular edema; M17.12 Unilateral primary osteoarthritis, left knee; Z85.030 Personal history of malignant carcinoid tumor of large intestine; Z85.060 Personal history of malignant carcinoid tumor of small intestine; Z85.810 Personal history of malignant neoplasm of tongue; Z85.46 Personal history of malignant neoplasm of prostate; Z86.73 Personal history of transient ischemic attack (TIA), and cerebral infarction without residual deficits; Z79.899 Other long term (current) drug therapy; Z90.49 Acquired absence of other specified parts of digestive tract; Z79.01 Long term (current) use of anticoagulants
CPT/HCPCS: 96365; 96366; G0463; J1250; J1642

== ENCOUNTER → 2020-07-20 | Outpatient (CLI) | payer OTHER ==
[~2020-07-20] VITALS: Ht 30.5 cm; Wt 88.2 kg
[2020-07-20] VITALS (9 sets, daily range): BP systolic 97–138; BP diastolic 50–79
--- NOTE | 2020-07-20 07:56 | NUR ---
CLINIC PT ARRIVED TO THE CHF CLINIC FOR WEEKLY CHF EVAL AND TX. A/OX4, AMBULATORY. PT COMPLAINS OF BACK PAIN OVER THE WEEKEND 05/06. PT TOOK HOME MOTRIN 200MG TO CONTROL PAIN. PT DENIES PAIN NOW. BREATHING IS EVEN AND UNLABORED.
--- NOTE | 2020-07-20 08:12 | NUR ---
DOBUTAMINE IV STARTED @ 5MCG/KG/MIN PER MD ORDERS. VSS. WILL CONTINUE TO MONITOR.
--- NOTE | 2020-07-20 10:54 | NUR ---
PT TOLERATING DOBUTAMINE INFUSION. PORT SITE BENIGN. VSS. WILL CONTINUE TO MONITOR
--- NOTE | 2020-07-20 11:20 | NUR ---
Discharge Instructions See e-MAR for any mediations given with this visit. Patient education given on disease process. Patient verbalized understanding. Previous labs reviewed. Patient discharged in stable condition with after care instructions and follow up appointment ON MON. NOTE DOBUTAMINE IV [id number] ADMIN BY JULIETA ALVAREZ HEPARIN IVP ADMIN BY RAJAN ALVAREZ
[2020-07-20 12:26] LABS: Basophils # (auto) 0 10 ^3/uL (0-0.2); Basophils % (auto) 0.6 % (0.0-2.0); Eosinophils # (auto) 0.2 10 ^3/uL (0-0.8); Eosinophils % (auto) 4.9 % (0.0-7.0); Hematocrit 41.2 % (41.0-53.0); Hemoglobin 13.6 g/dL (13.5-17.5); Lymphocytes # (auto) 1.2 10 ^3/uL (0.4-5.4); Lymphocytes % (auto) 30.2 % (10.0-50.0); Mean Corpuscular Hemoglobin 32.1 pg (28.0-32.0); Mean Corpuscular Hgb Conc. 33.2 g/dL (32.0-36.0); Mean Corpuscular Volume 96.8 fL (80.0-100.0); Monocytes # (auto) 0.7 10 ^3/uL (0-1.3); Monocytes % (auto) 17.6 % (0.0-12.0); Neutrophils # (auto) 1.8 10 ^3/uL (1.6-8.6); Neutrophils % (auto) 46.7 % (37.0-80.0); Nucleated Red Blood Cells % 0.1 %; Platelet Count (auto) 144 10^3/uL (140-450); Red Blood Cells 4.25 10^6/uL (4.5-5.90); Red Cell Distribution Width 13.7 % (11.8-14.3); White Blood Cell 3.9 10^3/uL (4.4-10.8)
[2020-07-20 12:32] LABS: BUN/Creatinine Ratio 13.8; Calcium 8.7 mg/dL (8.5-10.1); Magnesium 2.8 mg/dL (1.6-2.6)
== END | disposition home or self-care (01) ==
LOC: CHF HDHVI 07:53
PROVIDERS: ATTEND Internal Medicine Cardiovascular Disease
DX: I13.2 Hypertensive heart and chronic kidney disease with heart failure and with stage 5 chronic kidney disease, or end stage renal disease (principal); E11.22 Type 2 diabetes mellitus with diabetic chronic kidney disease; N18.6 End stage renal disease; I50.23 Acute on chronic systolic (congestive) heart failure; I50.84 End stage heart failure; I25.10 Atherosclerotic heart disease of native coronary artery without angina pectoris; I48.11 Longstanding persistent atrial fibrillation; I25.2 Old myocardial infarction; I42.8 Other cardiomyopathies; I27.21 Secondary pulmonary arterial hypertension; R53.83 Other fatigue; D64.9 Anemia, unspecified; E83.40 Disorders of magnesium metabolism, unspecified; F41.9 Anxiety disorder, unspecified; J44.9 Chronic obstructive pulmonary disease, unspecified; K21.9 Gastro-esophageal reflux disease without esophagitis; E78.5 Hyperlipidemia, unspecified; E03.9 Hypothyroidism, unspecified; F32.9 Major depressive disorder, single episode, unspecified; E78.00 Pure hypercholesterolemia, unspecified; E11.21 Type 2 diabetes mellitus with diabetic nephropathy; E11.42 Type 2 diabetes mellitus with diabetic polyneuropathy; E11.51 Type 2 diabetes mellitus with diabetic peripheral angiopathy without gangrene; E11.319 Type 2 diabetes mellitus with unspecified diabetic retinopathy without macular edema; M17.12 Unilateral primary osteoarthritis, left knee; Z87.891 Personal history of nicotine dependence; Z95.1 Presence of aortocoronary bypass graft; Z95.810 Presence of automatic (implantable) cardiac defibrillator; Z85.030 Personal history of malignant carcinoid tumor of large intestine; Z85.060 Personal history of malignant carcinoid tumor of small intestine; Z85.810 Personal history of malignant neoplasm of tongue; Z85.46 Personal history of malignant neoplasm of prostate; Z79.01 Long term (current) use of anticoagulants; Z90.49 Acquired absence of other specified parts of digestive tract; Z79.899 Other long term (current) drug therapy; Z95.5 Presence of coronary angioplasty implant and graft; Z86.73 Personal history of transient ischemic attack (TIA), and cerebral infarction without residual deficits
CPT/HCPCS: 36415; 80048; 83735; 83880; 85025; 96365; 96366; G0463; J1250; J1642

== ENCOUNTER → 2020-07-22 | Outpatient (CLI) | payer OTHER ==
[2020-07-22] VITALS (9 sets, daily range): BP systolic 100–142; BP diastolic 48–77
[~2020-07-22] VITALS: Ht 30.5 cm; Wt 88.5 kg
--- NOTE | 2020-07-22 07:56 | NUR ---
CLINIC PT ARRIVED TO THE CHF CLINIC FOR WEEKLY CHF EVAL AND TX. A/OX4, AMBULATORY. BREATHING IS EVEN AND UNLABORED.
--- NOTE | 2020-07-22 08:05 | NUR ---
DOBUTAMINE IV STARTED @ 5MCG/KG/MIN PER MD ORDERS. VSS. WILL CONTINUE TO MONITOR.
--- NOTE | 2020-07-22 09:51 | NUR ---
PT TOLERATING DOBUTAMINE INFUSION. PORT SITE BENIGN. VSS. WILL CONTINUE TO MONITOR.
--- NOTE | 2020-07-22 11:13 | NUR ---
Discharge Instructions See e-MAR for any mediations given with this visit. Patient education given on disease process. Patient verbalized understanding. Previous labs reviewed. Patient discharged in stable condition with after care instructions and follow up appointment ON MONDAY. NOTE DOBUTAMINE IV [id number] ADMIN BY JULIETA ALVAREZ HEPARIN IVP ADMIN BY JULIETA ALVAREZ
== END | disposition home or self-care (01) ==
LOC: CHF HDHVI 08:04
PROVIDERS: ATTEND Internal Medicine Cardiovascular Disease
DX: I13.2 Hypertensive heart and chronic kidney disease with heart failure and with stage 5 chronic kidney disease, or end stage renal disease (principal); E11.22 Type 2 diabetes mellitus with diabetic chronic kidney disease; I50.22 Chronic systolic (congestive) heart failure; N18.6 End stage renal disease; I25.10 Atherosclerotic heart disease of native coronary artery without angina pectoris; I48.11 Longstanding persistent atrial fibrillation; I25.2 Old myocardial infarction; I42.8 Other cardiomyopathies; J44.9 Chronic obstructive pulmonary disease, unspecified; K21.9 Gastro-esophageal reflux disease without esophagitis; E11.21 Type 2 diabetes mellitus with diabetic nephropathy; E11.42 Type 2 diabetes mellitus with diabetic polyneuropathy; E11.51 Type 2 diabetes mellitus with diabetic peripheral angiopathy without gangrene; E11.319 Type 2 diabetes mellitus with unspecified diabetic retinopathy without macular edema; E78.5 Hyperlipidemia, unspecified; E78.00 Pure hypercholesterolemia, unspecified; E03.9 Hypothyroidism, unspecified; M17.12 Unilateral primary osteoarthritis, left knee; G89.29 Other chronic pain; F31.9 Bipolar disorder, unspecified; F41.9 Anxiety disorder, unspecified; R53.83 Other fatigue; Z87.891 Personal history of nicotine dependence; Z95.5 Presence of coronary angioplasty implant and graft; Z85.810 Personal history of malignant neoplasm of tongue; Z90.49 Acquired absence of other specified parts of digestive tract; Z85.060 Personal history of malignant carcinoid tumor of small intestine; Z79.899 Other long term (current) drug therapy; Z85.030 Personal history of malignant carcinoid tumor of large intestine; Z85.46 Personal history of malignant neoplasm of prostate; Z95.1 Presence of aortocoronary bypass graft; Z95.810 Presence of automatic (implantable) cardiac defibrillator; Z79.01 Long term (current) use of anticoagulants; Z86.73 Personal history of transient ischemic attack (TIA), and cerebral infarction without residual deficits
CPT/HCPCS: 96365; 96366; G0463; J1250; J1642

== ENCOUNTER → 2020-07-24 | Outpatient (CLI) | payer OTHER ==
[~2020-07-24] VITALS: Ht 30.5 cm; Wt 88.2 kg
[2020-07-24] VITALS (9 sets, daily range): BP systolic 102–127; BP diastolic 49–69
== END | disposition home or self-care (01) ==
LOC: CHF HDHVI 08:05
PROVIDERS: ATTEND Internal Medicine Cardiovascular Disease
DX: I13.2 Hypertensive heart and chronic kidney disease with heart failure and with stage 5 chronic kidney disease, or end stage renal disease (principal); E11.22 Type 2 diabetes mellitus with diabetic chronic kidney disease; N18.6 End stage renal disease; I50.22 Chronic systolic (congestive) heart failure; R53.83 Other fatigue; I48.91 Unspecified atrial fibrillation; F41.9 Anxiety disorder, unspecified; I25.10 Atherosclerotic heart disease of native coronary artery without angina pectoris; I25.2 Old myocardial infarction; I42.8 Other cardiomyopathies; J44.9 Chronic obstructive pulmonary disease, unspecified; K21.9 Gastro-esophageal reflux disease without esophagitis; E78.5 Hyperlipidemia, unspecified; E03.9 Hypothyroidism, unspecified; G89.29 Other chronic pain; E78.00 Pure hypercholesterolemia, unspecified; E11.21 Type 2 diabetes mellitus with diabetic nephropathy; E11.42 Type 2 diabetes mellitus with diabetic polyneuropathy; E11.51 Type 2 diabetes mellitus with diabetic peripheral angiopathy without gangrene; E11.319 Type 2 diabetes mellitus with unspecified diabetic retinopathy without macular edema; M17.12 Unilateral primary osteoarthritis, left knee; F32.9 Major depressive disorder, single episode, unspecified; Z79.899 Other long term (current) drug therapy; Z85.030 Personal history of malignant carcinoid tumor of large intestine; Z85.060 Personal history of malignant carcinoid tumor of small intestine; Z85.810 Personal history of malignant neoplasm of tongue; Z85.46 Personal history of malignant neoplasm of prostate; Z87.891 Personal history of nicotine dependence; Z90.49 Acquired absence of other specified parts of digestive tract; Z95.1 Presence of aortocoronary bypass graft; Z95.810 Presence of automatic (implantable) cardiac defibrillator; Z95.5 Presence of coronary angioplasty implant and graft; Z86.73 Personal history of transient ischemic attack (TIA), and cerebral infarction without residual deficits; Z79.01 Long term (current) use of anticoagulants
CPT/HCPCS: 96365; 96366; G0463; J1250; J1642

== ENCOUNTER → 2020-07-27 | Outpatient (CLI) | payer OTHER ==
[2020-07-27] VITALS (9 sets, daily range): BP systolic 99–133; BP diastolic 48–67
--- NOTE | 2020-07-27 08:00 | NUR ---
CLINIC PT ARRIVED TO THE CHF CLINIC FOR WEEKLY CHF EVAL AND TX. A/OX4, AMBULATORY. BREATHING IS EVEN AND UNLABORED.
--- NOTE | 2020-07-27 08:19 | NUR ---
DOBUTAMINE IV STARTED @ 5MCG/KG/MIN PER MD ORDERS. VSS. WILL CONTINUE TO MONITOR.
--- NOTE | 2020-07-27 10:02 | NUR ---
PT TOLERATING DOBUTAMINE INFUSION, PORT SITE BENIGN. VSS. WILL CONTINUE TO MONITOR.
--- NOTE | 2020-07-27 11:30 | NUR ---
Discharge Instructions See e-MAR for any mediations given with this visit. Patient education given on disease process. Patient verbalized understanding. Previous labs reviewed. Patient discharged in stable condition with after care instructions and follow up appointment ON MON. NOTE DOBUTAMINE IV [id number] ADMIN BY JULIETA ALVAREZ HEPARIN IVP ADMIN BY JULIETA ALVAREZ
[2020-07-27 12:05] LABS: Basophils # (auto) 0 10 ^3/uL (0-0.2); Basophils % (auto) 0.7 % (0.0-2.0); Eosinophils # (auto) 0.1 10 ^3/uL (0-0.8); Eosinophils % (auto) 3.3 % (0.0-7.0); Hematocrit 41.9 % (41.0-53.0); Lymphocytes # (auto) 1.1 10 ^3/uL (0.4-5.4); Lymphocytes % (auto) 28.8 % (10.0-50.0); Mean Corpuscular Hemoglobin 32.5 pg (28.0-32.0); Mean Corpuscular Hgb Conc. 33.5 g/dL (32.0-36.0); Mean Corpuscular Volume 97.1 fL (80.0-100.0); Monocytes # (auto) 0.7 10 ^3/uL (0-1.3); Monocytes % (auto) 17.1 % (0.0-12.0); Neutrophils # (auto) 1.9 10 ^3/uL (1.6-8.6); Neutrophils % (auto) 50.1 % (37.0-80.0); Nucleated Red Blood Cells % 0.1 %; Platelet Count (auto) 140 10^3/uL (140-450); Red Blood Cells 4.31 10^6/uL (4.5-5.90); Red Cell Distribution Width 13.8 % (11.8-14.3); White Blood Cell 3.8 10^3/uL (4.4-10.8)
[2020-07-27 12:19] LABS: BUN/Creatinine Ratio 14.7; Calcium 8.2 mg/dL (8.5-10.1); Magnesium 2.6 mg/dL (1.6-2.6); Potassium 4.1 mmol/L (3.5-5.1)
== END | disposition home or self-care (01) ==
LOC: CHF HDHVI 07:57
PROVIDERS: ATTEND Internal Medicine Cardiovascular Disease
DX: I13.2 Hypertensive heart and chronic kidney disease with heart failure and with stage 5 chronic kidney disease, or end stage renal disease (principal); E11.22 Type 2 diabetes mellitus with diabetic chronic kidney disease; N18.6 End stage renal disease; I50.23 Acute on chronic systolic (congestive) heart failure; I50.84 End stage heart failure; D64.9 Anemia, unspecified; E83.40 Disorders of magnesium metabolism, unspecified; R53.83 Other fatigue; F41.9 Anxiety disorder, unspecified; I25.10 Atherosclerotic heart disease of native coronary artery without angina pectoris; I48.11 Longstanding persistent atrial fibrillation; I27.21 Secondary pulmonary arterial hypertension; I25.2 Old myocardial infarction; I42.8 Other cardiomyopathies; J44.9 Chronic obstructive pulmonary disease, unspecified; K21.9 Gastro-esophageal reflux disease without esophagitis; E78.5 Hyperlipidemia, unspecified; E03.9 Hypothyroidism, unspecified; F32.9 Major depressive disorder, single episode, unspecified; G89.29 Other chronic pain; E78.00 Pure hypercholesterolemia, unspecified; E11.21 Type 2 diabetes mellitus with diabetic nephropathy; E11.42 Type 2 diabetes mellitus with diabetic polyneuropathy; E11.51 Type 2 diabetes mellitus with diabetic peripheral angiopathy without gangrene; Z85.810 Personal history of malignant neoplasm of tongue; Z79.899 Other long term (current) drug therapy; Z90.49 Acquired absence of other specified parts of digestive tract; Z85.46 Personal history of malignant neoplasm of prostate; Z85.030 Personal history of malignant carcinoid tumor of large intestine; Z85.060 Personal history of malignant carcinoid tumor of small intestine; Z95.1 Presence of aortocoronary bypass graft; Z95.810 Presence of automatic (implantable) cardiac defibrillator; Z95.5 Presence of coronary angioplasty implant and graft; Z79.01 Long term (current) use of anticoagulants; Z86.73 Personal history of transient ischemic attack (TIA), and cerebral infarction without residual deficits
CPT/HCPCS: 36415; 80048; 83735; 83880; 85025; 96365; 96366; G0463; J1250; J1642

== ENCOUNTER → 2020-07-29 | Outpatient (CLI) | payer OTHER ==
[2020-07-29] VITALS (8 sets, daily range): BP systolic 112–134; BP diastolic 52–72
[~2020-07-29] VITALS: Ht 30.5 cm; Wt 86.8 kg
--- NOTE | 2020-07-29 07:53 | NUR ---
CLINIC PT ARRIVED TO THE CHF CLINIC FOR WEEKLY CHF EVAL AND TX. A/OX4, AMBULATORY, BREATHING IS EVEN AND UNLABORED.
--- NOTE | 2020-07-29 08:10 | NUR ---
DOBUTAMINE IV STARTED @ 5MCG/KG/MIN PER MD ORDERS. VSS. WILL CONTINUE TO MONITOR.
--- NOTE | 2020-07-29 10:16 | NUR ---
PT TOLERATING DOBUTAMINE INFUSION, PORT SITE BENIGN. VSS. WILL CONTINUE TO MONITOR.
--- NOTE | 2020-07-29 11:17 | NUR ---
Ayah Cath Removal Quinones needle D/C'd after Heparin flush per protocol. See e-MAR for medications given during this visit. Sterile occlusive dressing to site. Patient tolerated procedure well. Site benign post infusion. NOTE REMOVED BY RACHID ALVAREZ
--- NOTE | 2020-07-29 11:20 | NUR ---
Discharge Instructions See e-MAR for any mediations given with this visit. Patient education given on disease process. Patient verbalized understanding. Previous labs reviewed. Patient discharged in stable condition with after care instructions and follow up appointment ON MONDAY. NOTE DOBUTAMINE IV [id number] ADMIN BY JULIETA ALVAREZ HEPARIN IVP ADMIN BY JULIETA ALVAREZ
== END | disposition home or self-care (01) ==
LOC: CHF HDHVI 08:35
PROVIDERS: ATTEND Internal Medicine Cardiovascular Disease
DX: I13.2 Hypertensive heart and chronic kidney disease with heart failure and with stage 5 chronic kidney disease, or end stage renal disease (principal); E11.22 Type 2 diabetes mellitus with diabetic chronic kidney disease; N18.6 End stage renal disease; I50.22 Chronic systolic (congestive) heart failure; I50.84 End stage heart failure; R53.83 Other fatigue; I25.10 Atherosclerotic heart disease of native coronary artery without angina pectoris; I48.11 Longstanding persistent atrial fibrillation; I25.2 Old myocardial infarction; I42.8 Other cardiomyopathies; I27.21 Secondary pulmonary arterial hypertension; J44.9 Chronic obstructive pulmonary disease, unspecified; K21.9 Gastro-esophageal reflux disease without esophagitis; E78.5 Hyperlipidemia, unspecified; F41.9 Anxiety disorder, unspecified; E03.9 Hypothyroidism, unspecified; F32.9 Major depressive disorder, single episode, unspecified; G89.29 Other chronic pain; E78.00 Pure hypercholesterolemia, unspecified; E11.51 Type 2 diabetes mellitus with diabetic peripheral angiopathy without gangrene; E11.319 Type 2 diabetes mellitus with unspecified diabetic retinopathy without macular edema; M17.12 Unilateral primary osteoarthritis, left knee; Z79.899 Other long term (current) drug therapy; Z90.49 Acquired absence of other specified parts of digestive tract; Z87.891 Personal history of nicotine dependence; Z85.030 Personal history of malignant carcinoid tumor of large intestine; Z85.060 Personal history of malignant carcinoid tumor of small intestine; Z85.810 Personal history of malignant neoplasm of tongue; Z85.46 Personal history of malignant neoplasm of prostate; Z95.1 Presence of aortocoronary bypass graft; Z95.810 Presence of automatic (implantable) cardiac defibrillator; Z95.5 Presence of coronary angioplasty implant and graft; Z79.01 Long term (current) use of anticoagulants
CPT/HCPCS: 96365; 96366; G0463; J1250; J1642

== ENCOUNTER → 2020-07-31 | Outpatient (CLI) | payer OTHER ==
[2020-07-31] VITALS (9 sets, daily range): BP systolic 92–123; BP diastolic 42–65
[~2020-07-31] VITALS: Ht 180.3 cm; Wt 87.9 kg
== END | disposition home or self-care (01) ==
LOC: CHF HDHVI 07:56
PROVIDERS: ATTEND Internal Medicine Cardiovascular Disease
DX: I13.2 Hypertensive heart and chronic kidney disease with heart failure and with stage 5 chronic kidney disease, or end stage renal disease (principal); E11.22 Type 2 diabetes mellitus with diabetic chronic kidney disease; N18.6 End stage renal disease; I50.22 Chronic systolic (congestive) heart failure; I50.84 End stage heart failure; R53.83 Other fatigue; F41.9 Anxiety disorder, unspecified; I25.10 Atherosclerotic heart disease of native coronary artery without angina pectoris; I48.11 Longstanding persistent atrial fibrillation; I27.21 Secondary pulmonary arterial hypertension; I25.2 Old myocardial infarction; I42.8 Other cardiomyopathies; J44.9 Chronic obstructive pulmonary disease, unspecified; K21.9 Gastro-esophageal reflux disease without esophagitis; E78.5 Hyperlipidemia, unspecified; E03.9 Hypothyroidism, unspecified; F32.9 Major depressive disorder, single episode, unspecified; G89.29 Other chronic pain; E78.00 Pure hypercholesterolemia, unspecified; E11.51 Type 2 diabetes mellitus with diabetic peripheral angiopathy without gangrene; E11.319 Type 2 diabetes mellitus with unspecified diabetic retinopathy without macular edema; M17.12 Unilateral primary osteoarthritis, left knee; E11.21 Type 2 diabetes mellitus with diabetic nephropathy; E11.42 Type 2 diabetes mellitus with diabetic polyneuropathy; Z79.899 Other long term (current) drug therapy; Z85.030 Personal history of malignant carcinoid tumor of large intestine; Z90.49 Acquired absence of other specified parts of digestive tract; Z85.060 Personal history of malignant carcinoid tumor of small intestine; Z85.46 Personal history of malignant neoplasm of prostate; Z85.810 Personal history of malignant neoplasm of tongue; Z87.891 Personal history of nicotine dependence; Z95.1 Presence of aortocoronary bypass graft; Z95.810 Presence of automatic (implantable) cardiac defibrillator; Z79.01 Long term (current) use of anticoagulants; Z86.73 Personal history of transient ischemic attack (TIA), and cerebral infarction without residual deficits; Z95.5 Presence of coronary angioplasty implant and graft
CPT/HCPCS: 96365; 96366; G0463; J1250; J1642

== ENCOUNTER → 2020-08-05 | Outpatient (CLI) | payer OTHER ==
[2020-08-05] VITALS (9 sets, daily range): BP systolic 112–140; BP diastolic 53–79
[~2020-08-05] VITALS: Ht 180.3 cm; Wt 86.4 kg
--- NOTE | 2020-08-05 07:55 | NUR ---
CLINIC PT ARRIVED TO THE CHF CLINIC FOR WEEKLY CHF EVAL AND TX. A/OX4, AMBULATORY, BREATHING IS EVEN AND UNLABORED. PT HAS A 4.4LB WT DECREASE SINCE LAST VISIT ON 07/31/20.
--- NOTE | 2020-08-05 08:23 | NUR ---
DOBUTAMINE IV STARTED @ 5MCG/KG/MIN PER MD ORDERS. VSS. WILL CONTINUE TO MONITOR.
--- NOTE | 2020-08-05 08:26 | NUR ---
6MWT DONE BY BUDDY CABRAL PT COMPLETED 330M WHICH WAS NO CHANGE SINCE LAST 6MWT ON 03/30/20. PT WAS WEARING A MASK DURING THE TEST DUE TO COVID. Addendum: 08/05/20 at 917 by JULIETA YOU RN RN AL TEST STARTED AT 811
--- NOTE | 2020-08-05 10:19 | NUR ---
PAUSED MEDICATION, ORANGE CAP PLACED, PATIENT WILL BE RESTARTED ON INFUSION WHEN HE RETURNS.
--- NOTE | 2020-08-05 11:13 | NUR ---
DOBUTAMINE RESUMED @ 5MCG/KG/MIN. VSS. WILL CONTINUE TO MONITOR.
[2020-08-05 11:49] LABS: Calcium 8.9 mg/dL (8.5-10.1); Magnesium 2.7 mg/dL (1.6-2.6); Potassium 4.3 mmol/L (3.5-5.1)
[2020-08-05 12:10] LABS: Albumin 3.9 g/dL (3.4-5.0); BUN/Creatinine Ratio 14.7; Bilirubin, Total 0.6 mg/dL (0.2-1.0); Total Protein 7.5 g/dL (6.4-8.2)
[2020-08-05 12:26] LABS: Basophils # (auto) 0 10 ^3/uL (0-0.2); Basophils % (auto) 0.6 % (0.0-2.0); Eosinophils # (auto) 0.1 10 ^3/uL (0-0.8); Eosinophils % (auto) 3.2 % (0.0-7.0); Hematocrit 42.7 % (41.0-53.0); Lymphocytes # (auto) 1.2 10 ^3/uL (0.4-5.4); Lymphocytes % (auto) 32.4 % (10.0-50.0); Mean Corpuscular Hemoglobin 31.5 pg (28.0-32.0); Mean Corpuscular Hgb Conc. 32.9 g/dL (32.0-36.0); Monocytes # (auto) 0.6 10 ^3/uL (0-1.3); Monocytes % (auto) 16.7 % (0.0-12.0); Neutrophils # (auto) 1.8 10 ^3/uL (1.6-8.6); Neutrophils % (auto) 47.1 % (37.0-80.0); Nucleated Red Blood Cells % 0.2 %; Platelet Count (auto) 148 10^3/uL (140-450); Red Blood Cells 4.45 10^6/uL (4.5-5.90); Red Cell Distribution Width 13.7 % (11.8-14.3); White Blood Cell 3.8 10^3/uL (4.4-10.8)
--- NOTE | 2020-08-05 12:27 | NUR ---
Ayah Cath Removal Quinones needle D/C'd after Heparin flush per protocol. See e-MAR for medications given during this visit. Sterile occlusive dressing to site. Patient tolerated procedure well. Site benign post infusion. NOTE REMOVED BY NOA
--- NOTE | 2020-08-05 12:29 | NUR ---
Discharge Instructions See e-MAR for any mediations given with this visit. Patient education given on disease process. Patient verbalized understanding. Previous labs reviewed. Patient discharged in stable condition with after care instructions and follow up appointment ON MONDAY. NOTE DOBUTAMINE IV [id number] ADMIN BY JULIETA ALVAREZ HEPARIN IVP ADMIN BY NOA ALVAREZ 6MWT DONE BY BUDDY CABRAL
== END | disposition home or self-care (01) ==
LOC: CHF HDHVI 08:23
PROVIDERS: ATTEND Internal Medicine Cardiovascular Disease
DX: I13.2 Hypertensive heart and chronic kidney disease with heart failure and with stage 5 chronic kidney disease, or end stage renal disease (principal); E11.22 Type 2 diabetes mellitus with diabetic chronic kidney disease; I50.23 Acute on chronic systolic (congestive) heart failure; N18.6 End stage renal disease; R53.1 Weakness; D64.9 Anemia, unspecified; E83.40 Disorders of magnesium metabolism, unspecified; I25.10 Atherosclerotic heart disease of native coronary artery without angina pectoris; I25.2 Old myocardial infarction; I48.11 Longstanding persistent atrial fibrillation; I42.8 Other cardiomyopathies; J44.9 Chronic obstructive pulmonary disease, unspecified; K21.9 Gastro-esophageal reflux disease without esophagitis; E11.21 Type 2 diabetes mellitus with diabetic nephropathy; E11.42 Type 2 diabetes mellitus with diabetic polyneuropathy; E11.51 Type 2 diabetes mellitus with diabetic peripheral angiopathy without gangrene; E11.319 Type 2 diabetes mellitus with unspecified diabetic retinopathy without macular edema; E78.5 Hyperlipidemia, unspecified; E78.00 Pure hypercholesterolemia, unspecified; E03.9 Hypothyroidism, unspecified; M17.12 Unilateral primary osteoarthritis, left knee; G89.29 Other chronic pain; F31.9 Bipolar disorder, unspecified; F41.9 Anxiety disorder, unspecified; Z87.891 Personal history of nicotine dependence; Z95.5 Presence of coronary angioplasty implant and graft; Z79.899 Other long term (current) drug therapy; Z85.810 Personal history of malignant neoplasm of tongue; Z90.49 Acquired absence of other specified parts of digestive tract; Z85.060 Personal history of malignant carcinoid tumor of small intestine; Z85.030 Personal history of malignant carcinoid tumor of large intestine; Z85.46 Personal history of malignant neoplasm of prostate; Z95.1 Presence of aortocoronary bypass graft; Z95.810 Presence of automatic (implantable) cardiac defibrillator; Z79.01 Long term (current) use of anticoagulants; Z86.73 Personal history of transient ischemic attack (TIA), and cerebral infarction without residual deficits
CPT/HCPCS: 36415; 80053; 83735; 83880; 85025; 94618; 96365; 96366; G0463; J1250; J1642

== ENCOUNTER → 2020-08-07 | Outpatient (CLI) | payer OTHER ==
[2020-08-07] VITALS (9 sets, daily range): BP systolic 108–131; BP diastolic 53–65
[~2020-08-07] MED LIST changes: +CYANOCOBALAMIN (B-12) 1000 MCG/1 ML VIAL IM ONE; +CYANOCOBALAMIN (B-12) 1000 MCG/1 ML VIAL ONE
== END | disposition home or self-care (01) ==
LOC: CHF HDHVI 07:58
PROVIDERS: ATTEND Internal Medicine Cardiovascular Disease
DX: I13.2 Hypertensive heart and chronic kidney disease with heart failure and with stage 5 chronic kidney disease, or end stage renal disease (principal); E11.22 Type 2 diabetes mellitus with diabetic chronic kidney disease; N18.6 End stage renal disease; I50.22 Chronic systolic (congestive) heart failure; I50.84 End stage heart failure; R53.83 Other fatigue; I25.10 Atherosclerotic heart disease of native coronary artery without angina pectoris; I48.11 Longstanding persistent atrial fibrillation; I25.2 Old myocardial infarction; I42.8 Other cardiomyopathies; I27.21 Secondary pulmonary arterial hypertension; F31.9 Bipolar disorder, unspecified; J44.9 Chronic obstructive pulmonary disease, unspecified; K21.9 Gastro-esophageal reflux disease without esophagitis; E78.5 Hyperlipidemia, unspecified; F41.9 Anxiety disorder, unspecified; E03.9 Hypothyroidism, unspecified; G89.29 Other chronic pain; E78.00 Pure hypercholesterolemia, unspecified; E11.21 Type 2 diabetes mellitus with diabetic nephropathy; E11.42 Type 2 diabetes mellitus with diabetic polyneuropathy; E11.51 Type 2 diabetes mellitus with diabetic peripheral angiopathy without gangrene; E11.319 Type 2 diabetes mellitus with unspecified diabetic retinopathy without macular edema; M17.12 Unilateral primary osteoarthritis, left knee; Z79.899 Other long term (current) drug therapy; Z85.030 Personal history of malignant carcinoid tumor of large intestine; Z90.49 Acquired absence of other specified parts of digestive tract; Z85.060 Personal history of malignant carcinoid tumor of small intestine; Z85.810 Personal history of malignant neoplasm of tongue; Z85.46 Personal history of malignant neoplasm of prostate; Z87.891 Personal history of nicotine dependence; Z95.1 Presence of aortocoronary bypass graft; Z95.810 Presence of automatic (implantable) cardiac defibrillator; Z95.5 Presence of coronary angioplasty implant and graft; Z86.73 Personal history of transient ischemic attack (TIA), and cerebral infarction without residual deficits; Z79.01 Long term (current) use of anticoagulants
CPT/HCPCS: 96365; 96366; 96372; G0463; J1250; J1642; J3420

== ENCOUNTER → 2020-08-10 | Outpatient (CLI) | payer OTHER ==
[2020-08-10] VITALS (9 sets, daily range): BP systolic 97–124; BP diastolic 44–69
[~2020-08-10] VITALS: Ht 30.5 cm; Wt 87.7 kg
[~2020-08-10] MED LIST changes: -CYANOCOBALAMIN (B-12) 1000 MCG/1 ML VIAL IM ONE; -CYANOCOBALAMIN (B-12) 1000 MCG/1 ML VIAL ONE
--- NOTE | 2020-08-10 07:57 | NUR ---
CLINIC PT ARRIVED TO THE CHF CLINIC FOR WEEKLY CHF EVAL AND TX. A/OX4, AMBULATORY, BREATHING IS EVEN AND UNLABORED. PT HAS A 1.9 LB WT GAIN SINCE LAST VISIT ON 08/07/20
--- NOTE | 2020-08-10 08:09 | NUR ---
DOBUTAMINE IV STARTED @ 5 MCG/KG/MIN PER MD ORDERS. VSS. WILL CONTINUE TO MONITOR.
--- NOTE | 2020-08-10 09:48 | NUR ---
PT TOLERATING DOBUTAMINE INFUSION. PORT SITE BENIGN. VSS. WILL CONTINUE TO MONITOR.
--- NOTE | 2020-08-10 11:21 | NUR ---
Discharge Instructions See e-MAR for any mediations given with this visit. Patient education given on disease process. Patient verbalized understanding. Previous labs reviewed. Patient discharged in stable condition with after care instructions and follow up appointment ON MON. NOTE DOBUTAMINE IV [id number] ADMIN BY JULIETA ALVAREZ HEPARIN IVP ADMIN BY JULIETA ALVAREZ
[2020-08-10 12:24] LABS: Potassium 4.1 mmol/L (3.5-5.1)
[2020-08-10 12:30] LABS: BUN/Creatinine Ratio 14.4; Calcium 8.8 mg/dL (8.5-10.1)
== END | disposition home or self-care (01) ==
LOC: CHF HDHVI 08:01
PROVIDERS: ATTEND Internal Medicine Cardiovascular Disease
DX: I13.2 Hypertensive heart and chronic kidney disease with heart failure and with stage 5 chronic kidney disease, or end stage renal disease (principal); E11.22 Type 2 diabetes mellitus with diabetic chronic kidney disease; N18.6 End stage renal disease; I50.23 Acute on chronic systolic (congestive) heart failure; I50.84 End stage heart failure; R53.83 Other fatigue; I25.10 Atherosclerotic heart disease of native coronary artery without angina pectoris; I48.11 Longstanding persistent atrial fibrillation; I42.8 Other cardiomyopathies; I25.2 Old myocardial infarction; I27.21 Secondary pulmonary arterial hypertension; F41.9 Anxiety disorder, unspecified; F32.9 Major depressive disorder, single episode, unspecified; J44.9 Chronic obstructive pulmonary disease, unspecified; K21.9 Gastro-esophageal reflux disease without esophagitis; E78.5 Hyperlipidemia, unspecified; E03.9 Hypothyroidism, unspecified; G89.29 Other chronic pain; E78.00 Pure hypercholesterolemia, unspecified; E11.21 Type 2 diabetes mellitus with diabetic nephropathy; E11.42 Type 2 diabetes mellitus with diabetic polyneuropathy; E11.51 Type 2 diabetes mellitus with diabetic peripheral angiopathy without gangrene; E11.319 Type 2 diabetes mellitus with unspecified diabetic retinopathy without macular edema; M17.12 Unilateral primary osteoarthritis, left knee; Z79.899 Other long term (current) drug therapy; Z85.030 Personal history of malignant carcinoid tumor of large intestine; Z85.060 Personal history of malignant carcinoid tumor of small intestine; Z85.810 Personal history of malignant neoplasm of tongue; Z85.46 Personal history of malignant neoplasm of prostate; Z95.810 Presence of automatic (implantable) cardiac defibrillator; Z95.5 Presence of coronary angioplasty implant and graft; Z79.01 Long term (current) use of anticoagulants; Z90.49 Acquired absence of other specified parts of digestive tract; Z86.73 Personal history of transient ischemic attack (TIA), and cerebral infarction without residual deficits
CPT/HCPCS: 36415; 80048; 83880; 96365; 96366; G0463; J1250; J1642

== ENCOUNTER → 2020-08-12 | Outpatient (CLI) | payer OTHER ==
[2020-08-12] VITALS (9 sets, daily range): BP systolic 89–127; BP diastolic 42–66
--- NOTE | 2020-08-12 07:30 | NUR ---
CLINIC PT ARRIVED TO THE CHF CLINIC FOR WEEKLY CHF EVAL AND TX PER MD ORDERS. A/OX4, AMBULATORY, BREATHING IS EVEN AND UNLABORED.
--- NOTE | 2020-08-12 07:35 | NUR ---
DOBUTAMINE IV STARTED @ 5MCG/KG/MIN PER MD ORDERS. VSS. WILL CONTINUE TO MONITOR.
--- NOTE | 2020-08-12 09:47 | NUR ---
PT TOLERATING DOBUTAMINE INFUSION. PORT SITE BENIGN. VSS. WILL CONTINUE TO MONITOR.
--- NOTE | 2020-08-12 10:43 | NUR ---
Discharge Instructions See e-MAR for any mediations given with this visit. Patient education given on disease process. Patient verbalized understanding. Previous labs reviewed. Patient discharged in stable condition with after care instructions and follow up appointment ON MONDAY. NOTE DOBUTAMINE IV [id number] ADMIN BY JULIETA ALVAREZ HEPARIN IVP ADMIN BY JULIETA ALVAREZ
== END | disposition home or self-care (01) ==
LOC: CHF HDHVI 07:33
PROVIDERS: ATTEND Internal Medicine Cardiovascular Disease
DX: I13.2 Hypertensive heart and chronic kidney disease with heart failure and with stage 5 chronic kidney disease, or end stage renal disease (principal); E11.22 Type 2 diabetes mellitus with diabetic chronic kidney disease; N18.6 End stage renal disease; I50.23 Acute on chronic systolic (congestive) heart failure; I50.84 End stage heart failure; I48.11 Longstanding persistent atrial fibrillation; R53.83 Other fatigue; F41.9 Anxiety disorder, unspecified; I25.10 Atherosclerotic heart disease of native coronary artery without angina pectoris; I25.2 Old myocardial infarction; I42.8 Other cardiomyopathies; I27.21 Secondary pulmonary arterial hypertension; J44.9 Chronic obstructive pulmonary disease, unspecified; K21.9 Gastro-esophageal reflux disease without esophagitis; E78.5 Hyperlipidemia, unspecified; E03.9 Hypothyroidism, unspecified; F32.9 Major depressive disorder, single episode, unspecified; G89.29 Other chronic pain; E78.00 Pure hypercholesterolemia, unspecified; E11.21 Type 2 diabetes mellitus with diabetic nephropathy; E11.42 Type 2 diabetes mellitus with diabetic polyneuropathy; E11.51 Type 2 diabetes mellitus with diabetic peripheral angiopathy without gangrene; E11.319 Type 2 diabetes mellitus with unspecified diabetic retinopathy without macular edema; Z87.891 Personal history of nicotine dependence; Z95.1 Presence of aortocoronary bypass graft; Z90.49 Acquired absence of other specified parts of digestive tract; Z79.899 Other long term (current) drug therapy; Z85.030 Personal history of malignant carcinoid tumor of large intestine; Z85.060 Personal history of malignant carcinoid tumor of small intestine; Z85.810 Personal history of malignant neoplasm of tongue; Z85.46 Personal history of malignant neoplasm of prostate; Z95.5 Presence of coronary angioplasty implant and graft; Z79.01 Long term (current) use of anticoagulants; Z95.810 Presence of automatic (implantable) cardiac defibrillator; Z86.73 Personal history of transient ischemic attack (TIA), and cerebral infarction without residual deficits
CPT/HCPCS: 96365; 96366; G0463; J1250; J1642

== ENCOUNTER → 2020-08-14 | Outpatient (CLI) | payer OTHER ==
[2020-08-14] VITALS (9 sets, daily range): BP systolic 119–131; BP diastolic 58–73
--- NOTE | 2020-08-14 07:50 | NUR ---
CLINIC PT ARRIVED TO THE CHF CLINIC FOR WEEKLY CHF EVAL AND DOBUTAMINE TX. A/OX4, AMBULATORY, BREATHING IS EVEN AND UNLABORED.
--- NOTE | 2020-08-14 08:01 | NUR ---
DOBUTAMINE IV STARTED @ 5 MCG/KG/MIN PER MD ORDERS. VSS. WILL CONTINUE TO MONITOR.
--- NOTE | 2020-08-14 10:10 | NUR ---
PT TOLERATING DOBUTAMINE INFUSION. PORT SITE BENIGN. VSS. WILL CONTINUE TO MONITOR.
--- NOTE | 2020-08-14 11:09 | NUR ---
Discharge Instructions See e-MAR for any mediations given with this visit. Patient education given on disease process. Patient verbalized understanding. Previous labs reviewed. Patient discharged in stable condition with after care instructions and follow up appointment ON MONDAY. NOTE DOBUTAMINE IV [id number] ADMIN BY JULIETA ALVAREZ HEPARIN IVP ADMIN BY JULIETA ALVAREZ
== END | disposition home or self-care (01) ==
LOC: CHF HDHVI 08:11
PROVIDERS: ATTEND Internal Medicine Cardiovascular Disease
DX: I13.2 Hypertensive heart and chronic kidney disease with heart failure and with stage 5 chronic kidney disease, or end stage renal disease (principal); E11.22 Type 2 diabetes mellitus with diabetic chronic kidney disease; N18.6 End stage renal disease; I50.23 Acute on chronic systolic (congestive) heart failure; I50.84 End stage heart failure; I25.10 Atherosclerotic heart disease of native coronary artery without angina pectoris; I48.11 Longstanding persistent atrial fibrillation; I27.21 Secondary pulmonary arterial hypertension; I25.2 Old myocardial infarction; I42.8 Other cardiomyopathies; R53.83 Other fatigue; F41.9 Anxiety disorder, unspecified; J44.9 Chronic obstructive pulmonary disease, unspecified; K21.9 Gastro-esophageal reflux disease without esophagitis; E78.5 Hyperlipidemia, unspecified; E03.9 Hypothyroidism, unspecified; F32.9 Major depressive disorder, single episode, unspecified; G89.29 Other chronic pain; E78.00 Pure hypercholesterolemia, unspecified; E11.21 Type 2 diabetes mellitus with diabetic nephropathy; E11.42 Type 2 diabetes mellitus with diabetic polyneuropathy; E11.51 Type 2 diabetes mellitus with diabetic peripheral angiopathy without gangrene; E11.319 Type 2 diabetes mellitus with unspecified diabetic retinopathy without macular edema; M17.12 Unilateral primary osteoarthritis, left knee; Z79.899 Other long term (current) drug therapy; Z90.49 Acquired absence of other specified parts of digestive tract; Z85.030 Personal history of malignant carcinoid tumor of large intestine; Z85.060 Personal history of malignant carcinoid tumor of small intestine; Z85.810 Personal history of malignant neoplasm of tongue; Z85.46 Personal history of malignant neoplasm of prostate; Z87.891 Personal history of nicotine dependence; Z95.1 Presence of aortocoronary bypass graft; Z95.810 Presence of automatic (implantable) cardiac defibrillator; Z79.01 Long term (current) use of anticoagulants; Z86.73 Personal history of transient ischemic attack (TIA), and cerebral infarction without residual deficits
CPT/HCPCS: 96365; 96366; G0463; J1250; J1642

== ENCOUNTER → 2020-08-17 | Outpatient (CLI) | payer OTHER ==
[~2020-08-17] VITALS: Ht 30.5 cm; Wt 87.3 kg
[2020-08-17] VITALS (9 sets, daily range): BP systolic 99–132; BP diastolic 47–66
[2020-08-17 12:11] LABS: Basophils # (auto) 0 10 ^3/uL (0-0.2); Basophils % (auto) 0.6 % (0.0-2.0); Eosinophils # (auto) 0.2 10 ^3/uL (0-0.8); Eosinophils % (auto) 5.9 % (0.0-7.0); Hematocrit 41.4 % (41.0-53.0); Lymphocytes # (auto) 1.2 10 ^3/uL (0.4-5.4); Lymphocytes % (auto) 31.7 % (10.0-50.0); Mean Corpuscular Hemoglobin 32.5 pg (28.0-32.0); Mean Corpuscular Hgb Conc. 33.9 g/dL (32.0-36.0); Mean Corpuscular Volume 96.1 fL (80.0-100.0); Monocytes # (auto) 0.6 10 ^3/uL (0-1.3); Monocytes % (auto) 15.4 % (0.0-12.0); Neutrophils # (auto) 1.8 10 ^3/uL (1.6-8.6); Neutrophils % (auto) 46.4 % (37.0-80.0); Nucleated Red Blood Cells % 0.4 %; Platelet Count (auto) 150 10^3/uL (140-450); Red Blood Cells 4.31 10^6/uL (4.5-5.90); Red Cell Distribution Width 13.4 % (11.8-14.3); White Blood Cell 3.9 10^3/uL (4.4-10.8)
[2020-08-17 12:14] LABS: Calcium 8.7 mg/dL (8.5-10.1)
[2020-08-17 12:20] LABS: Albumin 3.8 g/dL (3.4-5.0); BUN/Creatinine Ratio 14.4; Bilirubin, Total 0.5 mg/dL (0.2-1.0); Magnesium 2.8 mg/dL (1.6-2.6); Total Protein 7.3 g/dL (6.4-8.2)
== END | disposition home or self-care (01) ==
LOC: CHF HDHVI 07:55
PROVIDERS: ATTEND Internal Medicine Cardiovascular Disease
DX: I13.2 Hypertensive heart and chronic kidney disease with heart failure and with stage 5 chronic kidney disease, or end stage renal disease (principal); E11.22 Type 2 diabetes mellitus with diabetic chronic kidney disease; I50.22 Chronic systolic (congestive) heart failure; I50.84 End stage heart failure; N18.6 End stage renal disease; I25.10 Atherosclerotic heart disease of native coronary artery without angina pectoris; F41.9 Anxiety disorder, unspecified; J44.9 Chronic obstructive pulmonary disease, unspecified; K21.9 Gastro-esophageal reflux disease without esophagitis; E78.5 Hyperlipidemia, unspecified; E03.9 Hypothyroidism, unspecified; I48.11 Longstanding persistent atrial fibrillation; E78.00 Pure hypercholesterolemia, unspecified; E11.40 Type 2 diabetes mellitus with diabetic neuropathy, unspecified; E11.51 Type 2 diabetes mellitus with diabetic peripheral angiopathy without gangrene; M17.12 Unilateral primary osteoarthritis, left knee; F31.9 Bipolar disorder, unspecified; I25.2 Old myocardial infarction; Z79.899 Other long term (current) drug therapy; Z79.01 Long term (current) use of anticoagulants; Z90.49 Acquired absence of other specified parts of digestive tract; Z87.891 Personal history of nicotine dependence; Z95.1 Presence of aortocoronary bypass graft; Z85.46 Personal history of malignant neoplasm of prostate; Z85.810 Personal history of malignant neoplasm of tongue; Z86.73 Personal history of transient ischemic attack (TIA), and cerebral infarction without residual deficits; Z95.5 Presence of coronary angioplasty implant and graft
CPT/HCPCS: 36415; 80053; 83735; 83880; 85025; 96365; 96366; G0463; J1250; J1642

== ENCOUNTER → 2020-08-19 | Outpatient (CLI) | payer OTHER ==
[2020-08-19] VITALS (9 sets, daily range): BP systolic 91–130; BP diastolic 44–67
[~2020-08-19] VITALS: Ht 30.5 cm; Wt 87.8 kg
--- NOTE | 2020-08-19 08:00 | NUR ---
CLINIC PT ARRIVED TO THE CHF CLINIC FOR WEEKLY CHF EVAL AND TX. A/OX4, AMBULATORY, BREATHING IS EVEN AND UNLABORED.
--- NOTE | 2020-08-19 08:23 | NUR ---
DOBUTAMINE IV STARTED @ 5MCG/KG/MIN PER MD ORDERS. VSS. WILL CONTINUE TO MONITOR.
--- NOTE | 2020-08-19 09:40 | NUR ---
PT TOLERATING DOBUTAMINE. PORT SITE BENIGN. VSS. WILL CONTINUE TO MONITOR.
--- NOTE | 2020-08-19 11:31 | NUR ---
Discharge Instructions See e-MAR for any mediations given with this visit. Patient education given on disease process. Patient verbalized understanding. Previous labs reviewed. Patient discharged in stable condition with after care instructions and follow up appointment TODAY WITH MD ENGLISH AND ON MONDAY FOR CLINIC. NOTE DOBUTAMINE IV [id number] ADMIN BY JULIETA ALVAREZ HEPARIN IVP ADMIN BY JULIETA ALVAREZ
== END | disposition home or self-care (01) ==
LOC: CHF HDHVI 08:04
PROVIDERS: ATTEND Internal Medicine Cardiovascular Disease
DX: I13.2 Hypertensive heart and chronic kidney disease with heart failure and with stage 5 chronic kidney disease, or end stage renal disease (principal); E11.22 Type 2 diabetes mellitus with diabetic chronic kidney disease; I50.22 Chronic systolic (congestive) heart failure; N18.6 End stage renal disease; I25.10 Atherosclerotic heart disease of native coronary artery without angina pectoris; I48.11 Longstanding persistent atrial fibrillation; I25.2 Old myocardial infarction; I42.8 Other cardiomyopathies; J44.9 Chronic obstructive pulmonary disease, unspecified; K21.9 Gastro-esophageal reflux disease without esophagitis; E11.21 Type 2 diabetes mellitus with diabetic nephropathy; E11.42 Type 2 diabetes mellitus with diabetic polyneuropathy; E11.51 Type 2 diabetes mellitus with diabetic peripheral angiopathy without gangrene; E11.319 Type 2 diabetes mellitus with unspecified diabetic retinopathy without macular edema; E78.5 Hyperlipidemia, unspecified; E78.00 Pure hypercholesterolemia, unspecified; E03.9 Hypothyroidism, unspecified; M17.12 Unilateral primary osteoarthritis, left knee; G89.29 Other chronic pain; F31.9 Bipolar disorder, unspecified; F41.9 Anxiety disorder, unspecified; R53.83 Other fatigue; Z87.891 Personal history of nicotine dependence; Z95.5 Presence of coronary angioplasty implant and graft; Z85.810 Personal history of malignant neoplasm of tongue; Z90.49 Acquired absence of other specified parts of digestive tract; Z85.060 Personal history of malignant carcinoid tumor of small intestine; Z79.899 Other long term (current) drug therapy; Z85.030 Personal history of malignant carcinoid tumor of large intestine; Z85.46 Personal history of malignant neoplasm of prostate; Z95.1 Presence of aortocoronary bypass graft; Z95.810 Presence of automatic (implantable) cardiac defibrillator; Z79.01 Long term (current) use of anticoagulants; Z86.73 Personal history of transient ischemic attack (TIA), and cerebral infarction without residual deficits
CPT/HCPCS: 96365; 96366; G0463; J1250; J1642

== ENCOUNTER → 2020-08-21 | Outpatient (CLI) | payer OTHER ==
[2020-08-21] VITALS (9 sets, daily range): BP systolic 94–129; BP diastolic 46–68
[~2020-08-21] VITALS: Ht 30.5 cm; Wt 87.2 kg
--- NOTE | 2020-08-21 07:54 | NUR ---
CLINIC PT ARRIVED TO THE CHF CLINIC FOR WEEKLY CHF EVAL AND TX. A/OX4, AMBULATORY, BREATHING IS EVEN AND UNLABORED. PT HAD TOOTH EXTRACTION YESTERDAY AND DIDN'T SLEEP WELL.
--- NOTE | 2020-08-21 08:01 | NUR ---
DOBUTAMINE IV STARTED @ 5MCG/KG/MIN PER MD ORDERS. VSS. WILL CONTINUE TO MONITOR.
--- NOTE | 2020-08-21 09:49 | NUR ---
PT TOLERATING DOBUTAMINE INFUSION. PORT SITE BENIGN. VSS. WILL CONTINUE TO MONITOR.
--- NOTE | 2020-08-21 11:10 | NUR ---
Discharge Instructions See e-MAR for any mediations given with this visit. Patient education given on disease process. Patient verbalized understanding. Previous labs reviewed. Patient discharged in stable condition with after care instructions and follow up appointment ON MONDAY. NOTE DOBUTAMINE IV [id number] ADMIN BY JULIETA ALVAREZ HEPARIN IVP ADMIN BY JULIETA ALVAREZ
== END | disposition home or self-care (01) ==
LOC: CHF HDHVI 08:01
PROVIDERS: ATTEND Internal Medicine Cardiovascular Disease
DX: I13.2 Hypertensive heart and chronic kidney disease with heart failure and with stage 5 chronic kidney disease, or end stage renal disease (principal); E11.22 Type 2 diabetes mellitus with diabetic chronic kidney disease; N18.6 End stage renal disease; I50.22 Chronic systolic (congestive) heart failure; I50.84 End stage heart failure; I25.10 Atherosclerotic heart disease of native coronary artery without angina pectoris; I48.11 Longstanding persistent atrial fibrillation; I27.21 Secondary pulmonary arterial hypertension; I25.2 Old myocardial infarction; I42.8 Other cardiomyopathies; R53.83 Other fatigue; F41.9 Anxiety disorder, unspecified; J44.9 Chronic obstructive pulmonary disease, unspecified; K21.9 Gastro-esophageal reflux disease without esophagitis; E78.5 Hyperlipidemia, unspecified; E03.9 Hypothyroidism, unspecified; G89.29 Other chronic pain; E78.00 Pure hypercholesterolemia, unspecified; E11.21 Type 2 diabetes mellitus with diabetic nephropathy; E11.42 Type 2 diabetes mellitus with diabetic polyneuropathy; E11.51 Type 2 diabetes mellitus with diabetic peripheral angiopathy without gangrene; E11.319 Type 2 diabetes mellitus with unspecified diabetic retinopathy without macular edema; M17.12 Unilateral primary osteoarthritis, left knee; F32.9 Major depressive disorder, single episode, unspecified; Z79.899 Other long term (current) drug therapy; Z85.810 Personal history of malignant neoplasm of tongue; Z85.030 Personal history of malignant carcinoid tumor of large intestine; Z85.060 Personal history of malignant carcinoid tumor of small intestine; Z85.46 Personal history of malignant neoplasm of prostate; Z87.891 Personal history of nicotine dependence; Z95.1 Presence of aortocoronary bypass graft; Z95.810 Presence of automatic (implantable) cardiac defibrillator; Z90.49 Acquired absence of other specified parts of digestive tract; Z95.5 Presence of coronary angioplasty implant and graft; Z79.01 Long term (current) use of anticoagulants; Z86.73 Personal history of transient ischemic attack (TIA), and cerebral infarction without residual deficits
CPT/HCPCS: 96365; 96366; G0463; J1250; J1642

== ENCOUNTER → 2020-08-24 | Outpatient (CLI) | payer OTHER ==
[2020-08-24] VITALS (9 sets, daily range): BP systolic 90–134; BP diastolic 41–70
[~2020-08-24] VITALS: Ht 30.5 cm; Wt 88.2 kg
[~2020-08-24] MED LIST changes: +BACITRACIN TOP OINT 1 UD PKG TOP ONE
--- NOTE | 2020-08-24 07:57 | NUR ---
CLINIC PT ARRIVED TO THE CHF CLINIC FOR WEEKLY CHF EVAL AND TX. A/OX4, AMBULATORY, BREATHING IS EVEN AND UNLABORED.
--- NOTE | 2020-08-24 08:03 | NUR ---
DOBUTAMINE IV STARTED @ 5MCG/KG/MIN PER MD ORDERS. VSS. WILL CONTINUE TO MONITOR.
--- NOTE | 2020-08-24 09:45 | NUR ---
PT TOLERATING DOBUTAMINE INFUSION. PORT SITE BENIGN. VSS . WILL CONTINUE TO MONITOR.
--- NOTE | 2020-08-24 11:11 | NUR ---
WOUND CARE PORT SITE SLOW HEALING DUE TO MULTIPLE ACCESS. BACITRACIN PLACED ON WOUND WITH JANETTE AND TEGADERM PLACED OVER. PT TOLD TO KEEP ON TILL NEXT VISIT ON MON.
--- NOTE | 2020-08-24 11:15 | NUR ---
Discharge Instructions See e-MAR for any mediations given with this visit. Patient education given on disease process. Patient verbalized understanding. Previous labs reviewed. Patient discharged in stable condition with after care instructions and follow up appointment MON. NOTE DOBUTAMINE IV [id number] ADMIN BY JULIETA ALVAREZ HEPARIN IVP ADMIN BY JULIETA ALVAREZTOOL AND DIE TECHNICIAN DONE BY JULIETA ALVAREZ
[2020-08-24 11:51] LABS: Basophils # (auto) 0 10 ^3/uL (0-0.2); Basophils % (auto) 0.5 % (0.0-2.0); Eosinophils # (auto) 0.2 10 ^3/uL (0-0.8); Eosinophils % (auto) 4.8 % (0.0-7.0); Hematocrit 39.1 % (41.0-53.0); Hemoglobin 13.7 g/dL (13.5-17.5); Lymphocytes # (auto) 1.1 10 ^3/uL (0.4-5.4); Lymphocytes % (auto) 30.5 % (10.0-50.0); Mean Corpuscular Hemoglobin 33.4 pg (28.0-32.0); Mean Corpuscular Hgb Conc. 35.1 g/dL (32.0-36.0); Mean Corpuscular Volume 95.1 fL (80.0-100.0); Monocytes # (auto) 0.6 10 ^3/uL (0-1.3); Monocytes % (auto) 16.1 % (0.0-12.0); Neutrophils # (auto) 1.7 10 ^3/uL (1.6-8.6); Neutrophils % (auto) 48.1 % (37.0-80.0); Nucleated Red Blood Cells % 0.2 %; Platelet Count (auto) 136 10^3/uL (140-450); Red Blood Cells 4.11 10^6/uL (4.5-5.90); Red Cell Distribution Width 13.5 % (11.8-14.3); White Blood Cell 3.6 10^3/uL (4.4-10.8)
[2020-08-24 12:03] LABS: Potassium 3.9 mmol/L (3.5-5.1)
[2020-08-24 12:06] LABS: BUN/Creatinine Ratio 15.3
== END | disposition home or self-care (01) ==
LOC: CHF HDHVI 08:15
PROVIDERS: ATTEND Internal Medicine Cardiovascular Disease
DX: I13.2 Hypertensive heart and chronic kidney disease with heart failure and with stage 5 chronic kidney disease, or end stage renal disease (principal); E11.22 Type 2 diabetes mellitus with diabetic chronic kidney disease; N18.6 End stage renal disease; I50.23 Acute on chronic systolic (congestive) heart failure; I50.84 End stage heart failure; R53.83 Other fatigue; I48.11 Longstanding persistent atrial fibrillation; F41.9 Anxiety disorder, unspecified; I25.10 Atherosclerotic heart disease of native coronary artery without angina pectoris; I27.21 Secondary pulmonary arterial hypertension; I25.2 Old myocardial infarction; I42.8 Other cardiomyopathies; J44.9 Chronic obstructive pulmonary disease, unspecified; K21.9 Gastro-esophageal reflux disease without esophagitis; E78.5 Hyperlipidemia, unspecified; E03.9 Hypothyroidism, unspecified; F32.9 Major depressive disorder, single episode, unspecified; G89.29 Other chronic pain; E78.00 Pure hypercholesterolemia, unspecified; E11.319 Type 2 diabetes mellitus with unspecified diabetic retinopathy without macular edema; E11.51 Type 2 diabetes mellitus with diabetic peripheral angiopathy without gangrene; E11.42 Type 2 diabetes mellitus with diabetic polyneuropathy; E11.21 Type 2 diabetes mellitus with diabetic nephropathy; M17.12 Unilateral primary osteoarthritis, left knee; Z79.899 Other long term (current) drug therapy; Z85.030 Personal history of malignant carcinoid tumor of large intestine; Z85.060 Personal history of malignant carcinoid tumor of small intestine; Z90.49 Acquired absence of other specified parts of digestive tract; Z85.46 Personal history of malignant neoplasm of prostate; Z85.810 Personal history of malignant neoplasm of tongue; Z87.891 Personal history of nicotine dependence; Z95.1 Presence of aortocoronary bypass graft; Z95.810 Presence of automatic (implantable) cardiac defibrillator; Z95.5 Presence of coronary angioplasty implant and graft; Z79.01 Long term (current) use of anticoagulants; Z86.73 Personal history of transient ischemic attack (TIA), and cerebral infarction without residual deficits
CPT/HCPCS: 36415; 80048; 82306; 83880; 85025; 96365; 96366; G0463; J1250; J1642

== ENCOUNTER → 2020-08-26 | Outpatient (CLI) | payer OTHER ==
[2020-08-26] VITALS (9 sets, daily range): BP systolic 105–120; BP diastolic 53–69
[~2020-08-26] VITALS: Ht 30.5 cm; Wt 88.6 kg
--- NOTE | 2020-08-26 07:58 | NUR ---
CLINIC PT ARRIVED TO THE CHF CLINIC FOR WEEKLY CHF EVAL AND TX. A/OX4, AMBULATORY, BREATHING IS EVEN AND UNLABORED. PT ARRIVED WITH TEGADERM ON PORT SITE WHICH WAS PLACED ON 08/24/20 HERE IN CLINIC. DRESSING WAS REMOVED. PORT INSERTION SITE IS STILL SLOW HEALING BUT HAS IMPROVED.
--- NOTE | 2020-08-26 08:08 | NUR ---
DOBUTAMINE IV STARTED @ 5 MCG/KG/MIN PER MD ORDERS. VSS. WILL CONTINUE TO MONITOR.
--- NOTE | 2020-08-26 09:42 | NUR ---
PT TOLERATING DOBUTAMINE INFUSION, PORT SITE BENIGN. VSS, WILL CONTINUE TO MONITOR.
--- NOTE | 2020-08-26 11:25 | NUR ---
WOUND CARE DONE BY JULIETA ALVAREZ BACITRACIN OINTMENT PLACED ON CLEAN WOUND COVERED WITH JANETTE AND TEGADERM.
--- NOTE | 2020-08-26 11:30 | NUR ---
Discharge Instructions See e-MAR for any mediations given with this visit. Patient education given on disease process. Patient verbalized understanding. Previous labs reviewed. Patient discharged in stable condition with after care instructions and follow up appointment ON MONDAY. NOTE DOBUTAMINE IV [id number] ADMIN BY JULIETA ALVAREZ HEPARIN IVP ADMIN BY JULIETA ALVAREZSLEEP LAB TECHNOLOGIST DONE BY JULIETA ALVAREZ
== END | disposition home or self-care (01) ==
LOC: CHF HDHVI 07:55
PROVIDERS: ATTEND Internal Medicine Cardiovascular Disease
DX: I13.2 Hypertensive heart and chronic kidney disease with heart failure and with stage 5 chronic kidney disease, or end stage renal disease (principal); E11.22 Type 2 diabetes mellitus with diabetic chronic kidney disease; N18.6 End stage renal disease; I50.22 Chronic systolic (congestive) heart failure; I50.84 End stage heart failure; I25.10 Atherosclerotic heart disease of native coronary artery without angina pectoris; I48.11 Longstanding persistent atrial fibrillation; I25.2 Old myocardial infarction; I42.8 Other cardiomyopathies; I27.21 Secondary pulmonary arterial hypertension; F41.9 Anxiety disorder, unspecified; E78.00 Pure hypercholesterolemia, unspecified; J44.9 Chronic obstructive pulmonary disease, unspecified; R53.83 Other fatigue; K21.9 Gastro-esophageal reflux disease without esophagitis; E78.5 Hyperlipidemia, unspecified; E03.9 Hypothyroidism, unspecified; F32.9 Major depressive disorder, single episode, unspecified; G89.29 Other chronic pain; E11.319 Type 2 diabetes mellitus with unspecified diabetic retinopathy without macular edema; M17.12 Unilateral primary osteoarthritis, left knee; E11.40 Type 2 diabetes mellitus with diabetic neuropathy, unspecified; Z79.899 Other long term (current) drug therapy; Z90.49 Acquired absence of other specified parts of digestive tract; Z85.030 Personal history of malignant carcinoid tumor of large intestine; Z85.060 Personal history of malignant carcinoid tumor of small intestine; Z85.810 Personal history of malignant neoplasm of tongue; Z85.46 Personal history of malignant neoplasm of prostate; Z87.891 Personal history of nicotine dependence; Z95.1 Presence of aortocoronary bypass graft; Z95.810 Presence of automatic (implantable) cardiac defibrillator; Z95.5 Presence of coronary angioplasty implant and graft; Z86.73 Personal history of transient ischemic attack (TIA), and cerebral infarction without residual deficits; Z79.01 Long term (current) use of anticoagulants
CPT/HCPCS: 96365; 96366; G0463; J1250; J1642

== ENCOUNTER → 2020-08-28 | Outpatient (CLI) | payer OTHER ==
[2020-08-28] VITALS (9 sets, daily range): BP systolic 95–130; BP diastolic 48–74
--- NOTE | 2020-08-28 07:54 | NUR ---
CLINIC PT ARRIVED TO THE CHF CLINIC FOR WEEKLY CHF EVAL AND TX, A/OX4, AMBULATORY, BREATHING IS EVEN AND UNLABORED.
--- NOTE | 2020-08-28 08:04 | NUR ---
DOBUTAMINE IV STARTED @ 5 MCG/KG/MIN PER MD ORDERS. VSS. WILL CONTINUE TO MONITOR.
--- NOTE | 2020-08-28 09:51 | NUR ---
PT TOLERATING DOBUTAMINE INFUSION. PORT SITE BENIGN, VSS, WILL CONTINUE TO MONITOR.
--- NOTE | 2020-08-28 11:13 | NUR ---
WOUND CARE BACITRACIN PLACED ON PORT SITE BANDAGE PLACED OVER.
--- NOTE | 2020-08-28 11:16 | NUR ---
Discharge Instructions See e-MAR for any mediations given with this visit. Patient education given on disease process. Patient verbalized understanding. Previous labs reviewed. Patient discharged in stable condition with after care instructions and follow up appointment ON MONDAY. NOTE DOBUTAMINE IV [id number] ADMIN BY JULIETA ALVAREZ HEPARIN IVP ADMIN BY JULIETA ALVAREZFISCAL TECHNICIAN DONE BY JULIETA ALVAREZ
== END | disposition home or self-care (01) ==
LOC: CHF HDHVI 08:26
PROVIDERS: ATTEND Internal Medicine Cardiovascular Disease
DX: I13.2 Hypertensive heart and chronic kidney disease with heart failure and with stage 5 chronic kidney disease, or end stage renal disease (principal); E11.22 Type 2 diabetes mellitus with diabetic chronic kidney disease; N18.6 End stage renal disease; I50.23 Acute on chronic systolic (congestive) heart failure; I50.84 End stage heart failure; R53.83 Other fatigue; F41.9 Anxiety disorder, unspecified; I25.10 Atherosclerotic heart disease of native coronary artery without angina pectoris; I27.21 Secondary pulmonary arterial hypertension; I25.2 Old myocardial infarction; I42.8 Other cardiomyopathies; I48.11 Longstanding persistent atrial fibrillation; J44.9 Chronic obstructive pulmonary disease, unspecified; K21.9 Gastro-esophageal reflux disease without esophagitis; E78.5 Hyperlipidemia, unspecified; E03.9 Hypothyroidism, unspecified; F32.9 Major depressive disorder, single episode, unspecified; G89.29 Other chronic pain; E78.00 Pure hypercholesterolemia, unspecified; E11.40 Type 2 diabetes mellitus with diabetic neuropathy, unspecified; E11.319 Type 2 diabetes mellitus with unspecified diabetic retinopathy without macular edema; M17.12 Unilateral primary osteoarthritis, left knee; E11.21 Type 2 diabetes mellitus with diabetic nephropathy; E11.42 Type 2 diabetes mellitus with diabetic polyneuropathy; E11.51 Type 2 diabetes mellitus with diabetic peripheral angiopathy without gangrene; Z79.899 Other long term (current) drug therapy; Z90.49 Acquired absence of other specified parts of digestive tract; Z85.030 Personal history of malignant carcinoid tumor of large intestine; Z85.060 Personal history of malignant carcinoid tumor of small intestine; Z85.810 Personal history of malignant neoplasm of tongue; Z85.46 Personal history of malignant neoplasm of prostate; Z87.891 Personal history of nicotine dependence; Z95.1 Presence of aortocoronary bypass graft; Z79.01 Long term (current) use of anticoagulants; Z95.810 Presence of automatic (implantable) cardiac defibrillator; Z95.5 Presence of coronary angioplasty implant and graft; Z86.73 Personal history of transient ischemic attack (TIA), and cerebral infarction without residual deficits
CPT/HCPCS: 96365; 96366; G0463; J1250; J1642

== ENCOUNTER → 2020-08-31 | Outpatient (CLI) | payer OTHER ==
[2020-08-31] VITALS (9 sets, daily range): BP systolic 103–129; BP diastolic 50–66
[~2020-08-31] VITALS: Ht 30.5 cm; Wt 88.0 kg
[2020-08-31 12:51] LABS: Potassium 3.9 mmol/L (3.5-5.1)
== END | disposition home or self-care (01) ==
LOC: CHF HDHVI 08:13
PROVIDERS: ATTEND Internal Medicine Cardiovascular Disease
DX: I13.2 Hypertensive heart and chronic kidney disease with heart failure and with stage 5 chronic kidney disease, or end stage renal disease (principal); E11.22 Type 2 diabetes mellitus with diabetic chronic kidney disease; N18.6 End stage renal disease; I50.23 Acute on chronic systolic (congestive) heart failure; I50.84 End stage heart failure; F41.9 Anxiety disorder, unspecified; I25.10 Atherosclerotic heart disease of native coronary artery without angina pectoris; I25.2 Old myocardial infarction; I48.11 Longstanding persistent atrial fibrillation; I27.21 Secondary pulmonary arterial hypertension; I42.8 Other cardiomyopathies; J44.9 Chronic obstructive pulmonary disease, unspecified; K21.9 Gastro-esophageal reflux disease without esophagitis; E03.9 Hypothyroidism, unspecified; F32.9 Major depressive disorder, single episode, unspecified; G89.29 Other chronic pain; E78.00 Pure hypercholesterolemia, unspecified; E11.21 Type 2 diabetes mellitus with diabetic nephropathy; E11.42 Type 2 diabetes mellitus with diabetic polyneuropathy; E11.319 Type 2 diabetes mellitus with unspecified diabetic retinopathy without macular edema; E11.51 Type 2 diabetes mellitus with diabetic peripheral angiopathy without gangrene; M17.12 Unilateral primary osteoarthritis, left knee; Z79.899 Other long term (current) drug therapy; Z85.030 Personal history of malignant carcinoid tumor of large intestine; Z85.060 Personal history of malignant carcinoid tumor of small intestine; Z85.810 Personal history of malignant neoplasm of tongue; Z85.46 Personal history of malignant neoplasm of prostate; Z90.49 Acquired absence of other specified parts of digestive tract; Z95.1 Presence of aortocoronary bypass graft; Z79.01 Long term (current) use of anticoagulants; Z87.891 Personal history of nicotine dependence; Z95.810 Presence of automatic (implantable) cardiac defibrillator; Z95.5 Presence of coronary angioplasty implant and graft; Z86.73 Personal history of transient ischemic attack (TIA), and cerebral infarction without residual deficits
CPT/HCPCS: 36415; 82565; 83880; 84132; 84520; 96365; 96366; G0463; J1250; J1642

== ENCOUNTER → 2020-09-02 | Outpatient (CLI) | payer OTHER ==
[2020-09-02] VITALS (9 sets, daily range): BP systolic 98–135; BP diastolic 48–71
[~2020-09-02] MED LIST changes: -BACITRACIN TOP OINT 1 UD PKG TOP ONE
--- NOTE | 2020-09-02 07:55 | NUR ---
CLINIC PT ARRIVED TO THE CHF CLINIC FOR WEEKLY CHF EVAL AND TX. A/OX4, AMBULATORY, BREATHING IS EVEN AND UNLABORED.
--- NOTE | 2020-09-02 08:03 | NUR ---
DOBUTAMINE IV STARTED @ 5MCG/KG/MIN PER MD ORDERS. VSS. WILL CONTINUE TO MONITOR.
--- NOTE | 2020-09-02 09:42 | NUR ---
PT TOLERATING DOBUTAMINE IV, PORT SITE BENIGN, VSS, WILL CONTINUE TO MONITOR.
--- NOTE | 2020-09-02 11:11 | NUR ---
Discharge Instructions See e-MAR for any mediations given with this visit. Patient education given on disease process. Patient verbalized understanding. Previous labs reviewed. Patient discharged in stable condition with after care instructions and follow up appointment ON MONDAY. NOTE DOBUTAMINE IV [id number] ADMIN BY JULIETA ALVAREZ HEPARIN IVP ADMIN BY JULIETA ALVAREZ
== END | disposition home or self-care (01) ==
LOC: CHF HDHVI 08:17
PROVIDERS: ATTEND Internal Medicine Cardiovascular Disease
DX: I13.2 Hypertensive heart and chronic kidney disease with heart failure and with stage 5 chronic kidney disease, or end stage renal disease (principal); E11.22 Type 2 diabetes mellitus with diabetic chronic kidney disease; I50.23 Acute on chronic systolic (congestive) heart failure; N18.6 End stage renal disease; I25.10 Atherosclerotic heart disease of native coronary artery without angina pectoris; I48.11 Longstanding persistent atrial fibrillation; I25.2 Old myocardial infarction; I42.8 Other cardiomyopathies; J44.9 Chronic obstructive pulmonary disease, unspecified; K21.9 Gastro-esophageal reflux disease without esophagitis; E11.21 Type 2 diabetes mellitus with diabetic nephropathy; E11.42 Type 2 diabetes mellitus with diabetic polyneuropathy; E11.51 Type 2 diabetes mellitus with diabetic peripheral angiopathy without gangrene; E11.319 Type 2 diabetes mellitus with unspecified diabetic retinopathy without macular edema; E78.5 Hyperlipidemia, unspecified; E78.00 Pure hypercholesterolemia, unspecified; E03.9 Hypothyroidism, unspecified; M17.12 Unilateral primary osteoarthritis, left knee; G89.29 Other chronic pain; F41.9 Anxiety disorder, unspecified; F31.9 Bipolar disorder, unspecified; R53.83 Other fatigue; Z87.891 Personal history of nicotine dependence; Z95.5 Presence of coronary angioplasty implant and graft; Z85.810 Personal history of malignant neoplasm of tongue; Z90.49 Acquired absence of other specified parts of digestive tract; Z85.060 Personal history of malignant carcinoid tumor of small intestine; Z79.899 Other long term (current) drug therapy; Z85.030 Personal history of malignant carcinoid tumor of large intestine; Z85.46 Personal history of malignant neoplasm of prostate; Z95.1 Presence of aortocoronary bypass graft; Z95.810 Presence of automatic (implantable) cardiac defibrillator; Z79.01 Long term (current) use of anticoagulants; Z86.73 Personal history of transient ischemic attack (TIA), and cerebral infarction without residual deficits
CPT/HCPCS: 96365; 96366; G0463; J1250; J1642

== ENCOUNTER → 2020-09-04 | Outpatient (CLI) | payer OTHER ==
[~2020-09-04] VITALS: Ht 30.5 cm; Wt 87.7 kg
[2020-09-04] VITALS (9 sets, daily range): BP systolic 96–126; BP diastolic 49–66
[~2020-09-04] MED LIST changes: +CYANOCOBALAMIN (B-12) 1000 MCG/1 ML VIAL IM ONE; +CYANOCOBALAMIN (B-12) 1000 MCG/1 ML VIAL ONE
--- NOTE | 2020-09-04 07:51 | NUR ---
CLINIC PT ARRIVED TO THE CHF CLINIC FOR WEEKLY CHF EVAL AND TX. A/OX4, AMBULATORY, BREATHING IS EVEN AND UNLABORED.
--- NOTE | 2020-09-04 08:00 | NUR ---
DOBUTAMINE IV STARTED @ 5 MCG/KG/MIN PER MD ORDERS. VSS. WILL CONTINUE TO MONITOR.
--- NOTE | 2020-09-04 09:26 | NUR ---
PT TOLERATING DOBUTAMINE INFUSION. PORT SITE BENIGN. VSS. WILL CONTINUE TO MONITOR.
--- NOTE | 2020-09-04 11:09 | NUR ---
Discharge Instructions See e-MAR for any mediations given with this visit. Patient education given on disease process. Patient verbalized understanding. Previous labs reviewed. Patient discharged in stable condition with after care instructions and follow up appointment ON MONDAY. NOTE DOBUTAMINE IV [id number] ADMIN BY JULIETA ALVAREZ HEPARIN IVP ADMIN BY JULIETA ALVAREZ VIT B12 IM ADMIN BY BUDDY Laird DELTOID LOT#[id number] EXP 05/19
== END | disposition home or self-care (01) ==
LOC: CHF HDHVI 08:03
PROVIDERS: ATTEND Internal Medicine Cardiovascular Disease
DX: I13.2 Hypertensive heart and chronic kidney disease with heart failure and with stage 5 chronic kidney disease, or end stage renal disease (principal); E11.22 Type 2 diabetes mellitus with diabetic chronic kidney disease; N18.6 End stage renal disease; I50.23 Acute on chronic systolic (congestive) heart failure; I50.84 End stage heart failure; R53.83 Other fatigue; I25.10 Atherosclerotic heart disease of native coronary artery without angina pectoris; I48.11 Longstanding persistent atrial fibrillation; I25.2 Old myocardial infarction; I27.21 Secondary pulmonary arterial hypertension; I42.8 Other cardiomyopathies; F41.9 Anxiety disorder, unspecified; J44.9 Chronic obstructive pulmonary disease, unspecified; K21.9 Gastro-esophageal reflux disease without esophagitis; E78.5 Hyperlipidemia, unspecified; E03.9 Hypothyroidism, unspecified; G89.29 Other chronic pain; E78.00 Pure hypercholesterolemia, unspecified; E11.21 Type 2 diabetes mellitus with diabetic nephropathy; E11.42 Type 2 diabetes mellitus with diabetic polyneuropathy; E11.51 Type 2 diabetes mellitus with diabetic peripheral angiopathy without gangrene; E11.319 Type 2 diabetes mellitus with unspecified diabetic retinopathy without macular edema; M17.12 Unilateral primary osteoarthritis, left knee; F32.9 Major depressive disorder, single episode, unspecified; Z79.899 Other long term (current) drug therapy; Z90.49 Acquired absence of other specified parts of digestive tract; Z85.030 Personal history of malignant carcinoid tumor of large intestine; Z85.060 Personal history of malignant carcinoid tumor of small intestine; Z85.810 Personal history of malignant neoplasm of tongue; Z85.46 Personal history of malignant neoplasm of prostate; Z87.891 Personal history of nicotine dependence; Z95.1 Presence of aortocoronary bypass graft; Z95.810 Presence of automatic (implantable) cardiac defibrillator; Z79.01 Long term (current) use of anticoagulants; Z95.5 Presence of coronary angioplasty implant and graft; Z86.73 Personal history of transient ischemic attack (TIA), and cerebral infarction without residual deficits
CPT/HCPCS: 96365; 96366; 96372; G0463; J1250; J1642; J3420

== ENCOUNTER → 2020-09-07 | Outpatient (CLI) | payer OTHER ==
[2020-09-07] VITALS (7 sets, daily range): BP systolic 99–123; BP diastolic 51–69
[~2020-09-07] VITALS: Ht 30.5 cm; Wt 87.8 kg
[~2020-09-07] MED LIST changes: -CYANOCOBALAMIN (B-12) 1000 MCG/1 ML VIAL IM ONE; -CYANOCOBALAMIN (B-12) 1000 MCG/1 ML VIAL ONE
[2020-09-07 12:24] LABS: BUN/Creatinine Ratio 15.7; Magnesium 2.8 mg/dL (1.6-2.6); Potassium 4.3 mmol/L (3.5-5.1)
== END | disposition home or self-care (01) ==
LOC: CHF HDHVI 08:00
PROVIDERS: ATTEND Internal Medicine Cardiovascular Disease
DX: I13.2 Hypertensive heart and chronic kidney disease with heart failure and with stage 5 chronic kidney disease, or end stage renal disease (principal); E11.22 Type 2 diabetes mellitus with diabetic chronic kidney disease; N18.6 End stage renal disease; I50.23 Acute on chronic systolic (congestive) heart failure; I50.84 End stage heart failure; I25.10 Atherosclerotic heart disease of native coronary artery without angina pectoris; I48.11 Longstanding persistent atrial fibrillation; I27.21 Secondary pulmonary arterial hypertension; I42.8 Other cardiomyopathies; I25.2 Old myocardial infarction; F41.9 Anxiety disorder, unspecified; J44.9 Chronic obstructive pulmonary disease, unspecified; K21.9 Gastro-esophageal reflux disease without esophagitis; E78.5 Hyperlipidemia, unspecified; E03.9 Hypothyroidism, unspecified; F32.9 Major depressive disorder, single episode, unspecified; G89.29 Other chronic pain; E78.00 Pure hypercholesterolemia, unspecified; E11.21 Type 2 diabetes mellitus with diabetic nephropathy; E11.42 Type 2 diabetes mellitus with diabetic polyneuropathy; E11.319 Type 2 diabetes mellitus with unspecified diabetic retinopathy without macular edema; E11.51 Type 2 diabetes mellitus with diabetic peripheral angiopathy without gangrene; Z79.899 Other long term (current) drug therapy; Z85.030 Personal history of malignant carcinoid tumor of large intestine; Z90.49 Acquired absence of other specified parts of digestive tract; Z85.060 Personal history of malignant carcinoid tumor of small intestine; Z85.810 Personal history of malignant neoplasm of tongue; Z85.46 Personal history of malignant neoplasm of prostate; Z87.891 Personal history of nicotine dependence; Z95.1 Presence of aortocoronary bypass graft; Z95.810 Presence of automatic (implantable) cardiac defibrillator; Z95.5 Presence of coronary angioplasty implant and graft; Z79.01 Long term (current) use of anticoagulants; Z86.73 Personal history of transient ischemic attack (TIA), and cerebral infarction without residual deficits
CPT/HCPCS: 36415; 80048; 83735; 83880; 96365; 96366; G0463; J1250; J1642

== ENCOUNTER → 2020-09-09 | Outpatient (CLI) | payer OTHER ==
[2020-09-09] VITALS (9 sets, daily range): BP systolic 96–126; BP diastolic 42–74
--- NOTE | 2020-09-09 07:54 | NUR ---
CLINIC PT ARRIVED TO THE CHF CLINIC FOR WEEKLY CHF EVAL AND TX. A/OX4, AMBULATORY, BREATHING IS EVEN AND UNLABORED.
--- NOTE | 2020-09-09 08:09 | NUR ---
DOBUTAMINE IV STARTED @ 5MCG/KG/MIN PER MD ORDERS. VSS. WILL CONTINUE TO MONITOR.
--- NOTE | 2020-09-09 09:46 | NUR ---
PT TOLERATING DOBUTAMINE INFUSION, PORT SITE BENIGN, VSS, WILL CONTINUE TO MONITOR.
--- NOTE | 2020-09-09 11:19 | NUR ---
Discharge Instructions See e-MAR for any mediations given with this visit. Patient education given on disease process. Patient verbalized understanding. Previous labs reviewed. Patient discharged in stable condition with after care instructions and follow up appointment ON MONDAY. NOTE DOBUTAMINE IV [id number] ADMIN BY JULIETA ALVAREZ HEPARIN IVP ADMIN BY JULIETA ALVAREZ
== END | disposition home or self-care (01) ==
LOC: CHF HDHVI 08:02
PROVIDERS: ATTEND Internal Medicine Cardiovascular Disease
DX: I13.2 Hypertensive heart and chronic kidney disease with heart failure and with stage 5 chronic kidney disease, or end stage renal disease (principal); E11.22 Type 2 diabetes mellitus with diabetic chronic kidney disease; N18.6 End stage renal disease; I50.23 Acute on chronic systolic (congestive) heart failure; I50.84 End stage heart failure; R53.83 Other fatigue; I25.10 Atherosclerotic heart disease of native coronary artery without angina pectoris; I48.11 Longstanding persistent atrial fibrillation; I27.21 Secondary pulmonary arterial hypertension; I25.2 Old myocardial infarction; I42.8 Other cardiomyopathies; J44.9 Chronic obstructive pulmonary disease, unspecified; K21.9 Gastro-esophageal reflux disease without esophagitis; E78.5 Hyperlipidemia, unspecified; F41.9 Anxiety disorder, unspecified; E03.9 Hypothyroidism, unspecified; F32.9 Major depressive disorder, single episode, unspecified; G89.29 Other chronic pain; E78.00 Pure hypercholesterolemia, unspecified; E11.51 Type 2 diabetes mellitus with diabetic peripheral angiopathy without gangrene; E11.319 Type 2 diabetes mellitus with unspecified diabetic retinopathy without macular edema; M17.12 Unilateral primary osteoarthritis, left knee; E11.40 Type 2 diabetes mellitus with diabetic neuropathy, unspecified; Z79.899 Other long term (current) drug therapy; Z85.030 Personal history of malignant carcinoid tumor of large intestine; Z85.060 Personal history of malignant carcinoid tumor of small intestine; Z85.810 Personal history of malignant neoplasm of tongue; Z85.46 Personal history of malignant neoplasm of prostate; Z87.891 Personal history of nicotine dependence; Z95.1 Presence of aortocoronary bypass graft; Z95.810 Presence of automatic (implantable) cardiac defibrillator; Z95.5 Presence of coronary angioplasty implant and graft; Z79.01 Long term (current) use of anticoagulants; Z86.73 Personal history of transient ischemic attack (TIA), and cerebral infarction without residual deficits
CPT/HCPCS: 96365; 96366; G0463; J1250; J1642

== ENCOUNTER → 2020-09-11 | Outpatient (CLI) | payer OTHER ==
[2020-09-11] VITALS (9 sets, daily range): BP systolic 91–120; BP diastolic 47–65
--- NOTE | 2020-09-11 07:56 | NUR ---
CLINIC PT ARRIVED TO THE CHF CLINIC FOR SCHEDULED WEEKLY CHF EVAL AND TX. A/OX4, AMBULATORY, BREATHING IS EVEN AND UNLABORED.
--- NOTE | 2020-09-11 08:07 | NUR ---
DOBUTAMINE IV STARTED @ 5 MCG/KG/MIN PER MD ORDERS. VSS. WILL CONTINUE TO MONITOR.
--- NOTE | 2020-09-11 10:24 | NUR ---
PT TOLERATING INFUSION, PORT SITE BENIGN. VSS. WILL CONTINUE TO MONITOR.
--- NOTE | 2020-09-11 11:16 | NUR ---
Discharge Instructions See e-MAR for any mediations given with this visit. Patient education given on disease process. Patient verbalized understanding. Previous labs reviewed. Patient discharged in stable condition with after care instructions and follow up appointment ON MONDAY. NOTE DOBUTAMINE IV [id number] ADMIN BY JULIETA ALVAREZ HEPARIN IVP ADMIN BY JULIETA ALVAREZ
== END | disposition home or self-care (01) ==
LOC: CHF HDHVI 08:02
PROVIDERS: ATTEND Internal Medicine Cardiovascular Disease
DX: I13.2 Hypertensive heart and chronic kidney disease with heart failure and with stage 5 chronic kidney disease, or end stage renal disease (principal); E11.22 Type 2 diabetes mellitus with diabetic chronic kidney disease; N18.6 End stage renal disease; I50.23 Acute on chronic systolic (congestive) heart failure; I50.84 End stage heart failure; R53.83 Other fatigue; I25.10 Atherosclerotic heart disease of native coronary artery without angina pectoris; I48.11 Longstanding persistent atrial fibrillation; I25.2 Old myocardial infarction; I42.8 Other cardiomyopathies; I27.21 Secondary pulmonary arterial hypertension; J44.9 Chronic obstructive pulmonary disease, unspecified; K21.9 Gastro-esophageal reflux disease without esophagitis; E78.5 Hyperlipidemia, unspecified; F41.9 Anxiety disorder, unspecified; E03.9 Hypothyroidism, unspecified; F32.9 Major depressive disorder, single episode, unspecified; G89.29 Other chronic pain; E78.00 Pure hypercholesterolemia, unspecified; E11.40 Type 2 diabetes mellitus with diabetic neuropathy, unspecified; E11.51 Type 2 diabetes mellitus with diabetic peripheral angiopathy without gangrene; E11.319 Type 2 diabetes mellitus with unspecified diabetic retinopathy without macular edema; E11.21 Type 2 diabetes mellitus with diabetic nephropathy; Z85.030 Personal history of malignant carcinoid tumor of large intestine; Z79.899 Other long term (current) drug therapy; Z79.01 Long term (current) use of anticoagulants; Z90.49 Acquired absence of other specified parts of digestive tract; Z85.060 Personal history of malignant carcinoid tumor of small intestine; Z85.810 Personal history of malignant neoplasm of tongue; Z85.46 Personal history of malignant neoplasm of prostate; Z87.891 Personal history of nicotine dependence; Z95.1 Presence of aortocoronary bypass graft; Z95.810 Presence of automatic (implantable) cardiac defibrillator; Z95.5 Presence of coronary angioplasty implant and graft; Z86.73 Personal history of transient ischemic attack (TIA), and cerebral infarction without residual deficits
CPT/HCPCS: 96365; 96366; G0463; J1250; J1642

== ENCOUNTER → 2020-09-14 | Outpatient (CLI) | payer OTHER ==
[~2020-09-14] VITALS: Ht 30.5 cm; Wt 88.7 kg
[2020-09-14] VITALS (9 sets, daily range): BP systolic 87–131; BP diastolic 40–68
[2020-09-14 12:14] LABS: Basophils # (auto) 0 10 ^3/uL (0-0.2); Basophils % (auto) 0.7 % (0.0-2.0); Eosinophils # (auto) 0.1 10 ^3/uL (0-0.8); Eosinophils % (auto) 3.7 % (0.0-7.0); Hematocrit 40.6 % (41.0-53.0); Hemoglobin 13.8 g/dL (13.5-17.5); Lymphocytes # (auto) 1.3 10 ^3/uL (0.4-5.4); Lymphocytes % (auto) 32.5 % (10.0-50.0); Mean Corpuscular Hemoglobin 32.9 pg (28.0-32.0); Mean Corpuscular Hgb Conc. 33.9 g/dL (32.0-36.0); Mean Corpuscular Volume 97.1 fL (80.0-100.0); Monocytes # (auto) 0.7 10 ^3/uL (0-1.3); Monocytes % (auto) 16.8 % (0.0-12.0); Neutrophils # (auto) 1.8 10 ^3/uL (1.6-8.6); Neutrophils % (auto) 46.3 % (37.0-80.0); Platelet Count (auto) 146 10^3/uL (140-450); Red Blood Cells 4.18 10^6/uL (4.5-5.90); Red Cell Distribution Width 13.6 % (11.8-14.3); White Blood Cell 3.9 10^3/uL (4.4-10.8)
[2020-09-14 12:23] LABS: Potassium 4.1 mmol/L (3.5-5.1)
[2020-09-14 12:31] LABS: Calcium 8.5 mg/dL (8.5-10.1); Magnesium 2.6 mg/dL (1.6-2.6)
== END | disposition home or self-care (01) ==
LOC: CHF HDHVI 08:06
PROVIDERS: ATTEND Internal Medicine Cardiovascular Disease
DX: I13.2 Hypertensive heart and chronic kidney disease with heart failure and with stage 5 chronic kidney disease, or end stage renal disease (principal); E11.22 Type 2 diabetes mellitus with diabetic chronic kidney disease; N18.6 End stage renal disease; I50.23 Acute on chronic systolic (congestive) heart failure; I50.84 End stage heart failure; R53.83 Other fatigue; F41.9 Anxiety disorder, unspecified; I25.10 Atherosclerotic heart disease of native coronary artery without angina pectoris; I48.11 Longstanding persistent atrial fibrillation; I42.8 Other cardiomyopathies; I25.2 Old myocardial infarction; I27.21 Secondary pulmonary arterial hypertension; J44.9 Chronic obstructive pulmonary disease, unspecified; K21.9 Gastro-esophageal reflux disease without esophagitis; E78.5 Hyperlipidemia, unspecified; E03.9 Hypothyroidism, unspecified; F32.9 Major depressive disorder, single episode, unspecified; G89.29 Other chronic pain; E78.00 Pure hypercholesterolemia, unspecified; E11.21 Type 2 diabetes mellitus with diabetic nephropathy; E11.319 Type 2 diabetes mellitus with unspecified diabetic retinopathy without macular edema; M17.12 Unilateral primary osteoarthritis, left knee; Z79.899 Other long term (current) drug therapy; Z85.030 Personal history of malignant carcinoid tumor of large intestine; Z85.060 Personal history of malignant carcinoid tumor of small intestine; Z85.810 Personal history of malignant neoplasm of tongue; Z79.01 Long term (current) use of anticoagulants; Z90.49 Acquired absence of other specified parts of digestive tract
CPT/HCPCS: 36415; 80048; 83735; 83880; 85025; 96365; 96366; G0463; J1250; J1642

== ENCOUNTER → 2020-09-16 | Outpatient (CLI) | payer OTHER ==
[~2020-09-16] VITALS: Ht 30.5 cm; Wt 87.6 kg
[2020-09-16] VITALS (9 sets, daily range): BP systolic 106–130; BP diastolic 48–68
--- NOTE | 2020-09-16 07:50 | NUR ---
PT. TO CHF CLINIC FOR DOBUTAMINE INFUSION PER MD ORDER. PT. STATES FEELING BETTER AFTER LAST TX. SEE NSG ASSESS. ORDERS RECEIVED AND CARRIED OUT.
--- NOTE | 2020-09-16 08:02 | NUR ---
Clinic Provider Clinic Provider into see pt with new orders received and carried out. Dobutamine gtt started at {5}mcg/kg/hr per MD order.
--- NOTE | 2020-09-16 10:09 | NUR ---
PT TOLERATING DOBUTAMINE INFUSION, PORT SITE BENIGN, VSS, WILL CONTINUE TO MONITOR.
--- NOTE | 2020-09-16 11:15 | NUR ---
Discharge Instructions See e-MAR for any mediations given with this visit. Patient education given on disease process. Patient verbalized understanding. Previous labs reviewed. Patient discharged in stable condition with after care instructions and follow up appointment ON MONDAY. NOTE DOBUTAMINE IV [id number] ADMIN BY JULIETA ALVAREZ HEPARIN IVP ADMIN BY JULIETA ALVAREZ
== END | disposition home or self-care (01) ==
LOC: CHF HDHVI 08:13
PROVIDERS: ATTEND Internal Medicine Cardiovascular Disease
DX: I13.2 Hypertensive heart and chronic kidney disease with heart failure and with stage 5 chronic kidney disease, or end stage renal disease (principal); E11.22 Type 2 diabetes mellitus with diabetic chronic kidney disease; N18.6 End stage renal disease; I50.23 Acute on chronic systolic (congestive) heart failure; I50.84 End stage heart failure; I25.10 Atherosclerotic heart disease of native coronary artery without angina pectoris; I48.11 Longstanding persistent atrial fibrillation; I27.21 Secondary pulmonary arterial hypertension; I25.2 Old myocardial infarction; I42.8 Other cardiomyopathies; F41.9 Anxiety disorder, unspecified; K21.9 Gastro-esophageal reflux disease without esophagitis; E78.5 Hyperlipidemia, unspecified; E03.9 Hypothyroidism, unspecified; F32.9 Major depressive disorder, single episode, unspecified; G89.29 Other chronic pain; E78.00 Pure hypercholesterolemia, unspecified; M17.12 Unilateral primary osteoarthritis, left knee; E11.21 Type 2 diabetes mellitus with diabetic nephropathy; E11.319 Type 2 diabetes mellitus with unspecified diabetic retinopathy without macular edema; E11.51 Type 2 diabetes mellitus with diabetic peripheral angiopathy without gangrene; E11.42 Type 2 diabetes mellitus with diabetic polyneuropathy; Z85.030 Personal history of malignant carcinoid tumor of large intestine; Z85.060 Personal history of malignant carcinoid tumor of small intestine; Z85.810 Personal history of malignant neoplasm of tongue; Z85.46 Personal history of malignant neoplasm of prostate; Z87.891 Personal history of nicotine dependence; Z95.1 Presence of aortocoronary bypass graft; Z95.810 Presence of automatic (implantable) cardiac defibrillator; Z86.73 Personal history of transient ischemic attack (TIA), and cerebral infarction without residual deficits; Z79.899 Other long term (current) drug therapy; Z90.49 Acquired absence of other specified parts of digestive tract
CPT/HCPCS: 96365; 96366; G0463; J1250; J1642

== ENCOUNTER → 2020-09-18 | Outpatient (CLI) | payer OTHER ==
[~2020-09-18] VITALS: Ht 30.5 cm; Wt 88.2 kg
[2020-09-18] VITALS (9 sets, daily range): BP systolic 104–132; BP diastolic 49–65
--- NOTE | 2020-09-18 07:55 | NUR ---
CLINIC PT ARRIVED TO THE CHF CLINIC FOR SCHEDULED WEEKLY CHF EVAL AND TX. A/OX4, AMBULATORY, BREATHING IS EVEN AND UNLABORED.
--- NOTE | 2020-09-18 08:02 | NUR ---
DOBUTAMINE IV STARTED @ 5MCG/KG/MIN, VSS, WILL CONTINUE TO MONITOR.
--- NOTE | 2020-09-18 09:43 | NUR ---
PT TOLERATING DOBUTAMINE INFUSION, IV SITE BENIGN, VSS, WILL CONTINUE TO MONITOR. Addendum: 09/18/20 at 1019 by JULIETA YOU RN RN [place] PORT SITE BENIGN
--- NOTE | 2020-09-18 11:11 | NUR ---
Discharge Instructions See e-MAR for any mediations given with this visit. Patient education given on disease process. Patient verbalized understanding. Previous labs reviewed. Patient discharged in stable condition with after care instructions and follow up appointment ON MONDAY. NOTE DOBUTAMINE IV [id number] ADMIN BY JULIETA ALVAREZ HEPARIN IVP ADMIN BY JULIETA ALVAREZ
== END | disposition home or self-care (01) ==
LOC: CHF HDHVI 08:00
PROVIDERS: ATTEND Internal Medicine Cardiovascular Disease
DX: I13.2 Hypertensive heart and chronic kidney disease with heart failure and with stage 5 chronic kidney disease, or end stage renal disease (principal); E11.22 Type 2 diabetes mellitus with diabetic chronic kidney disease; N18.6 End stage renal disease; I50.23 Acute on chronic systolic (congestive) heart failure; I50.84 End stage heart failure; R53.83 Other fatigue; F41.9 Anxiety disorder, unspecified; I25.10 Atherosclerotic heart disease of native coronary artery without angina pectoris; I27.21 Secondary pulmonary arterial hypertension; I25.2 Old myocardial infarction; I42.8 Other cardiomyopathies; I48.11 Longstanding persistent atrial fibrillation; J44.9 Chronic obstructive pulmonary disease, unspecified; K21.9 Gastro-esophageal reflux disease without esophagitis; E78.5 Hyperlipidemia, unspecified; E03.9 Hypothyroidism, unspecified; F32.9 Major depressive disorder, single episode, unspecified; G89.29 Other chronic pain; E78.00 Pure hypercholesterolemia, unspecified; E11.21 Type 2 diabetes mellitus with diabetic nephropathy; E11.42 Type 2 diabetes mellitus with diabetic polyneuropathy; E11.51 Type 2 diabetes mellitus with diabetic peripheral angiopathy without gangrene; E11.319 Type 2 diabetes mellitus with unspecified diabetic retinopathy without macular edema; M17.12 Unilateral primary osteoarthritis, left knee; Z79.01 Long term (current) use of anticoagulants; Z95.5 Presence of coronary angioplasty implant and graft; Z90.49 Acquired absence of other specified parts of digestive tract; Z79.899 Other long term (current) drug therapy; Z85.030 Personal history of malignant carcinoid tumor of large intestine; Z85.060 Personal history of malignant carcinoid tumor of small intestine; Z85.810 Personal history of malignant neoplasm of tongue; Z85.46 Personal history of malignant neoplasm of prostate; Z87.891 Personal history of nicotine dependence; Z95.1 Presence of aortocoronary bypass graft; Z95.810 Presence of automatic (implantable) cardiac defibrillator; Z86.73 Personal history of transient ischemic attack (TIA), and cerebral infarction without residual deficits
CPT/HCPCS: 96365; 96366; G0463; J1250; J1642

== ENCOUNTER → 2020-09-21 | Outpatient (CLI) | payer OTHER ==
[2020-09-21] VITALS (9 sets, daily range): BP systolic 101–136; BP diastolic 48–79
--- NOTE | 2020-09-21 07:55 | NUR ---
CLINIC PT ARRIVED TO THE CHF CLINIC FOR SCHEDULED WEEKLY CHF EVAL AND TX. A/OX4, AMBULATORY, BREATHING IS EVEN AND UNLABORED.
--- NOTE | 2020-09-21 08:04 | NUR ---
DOBUTAMINE IV STARTED @ 5MCG/KG/MIN PER MD ORDERS, VSS, WILL CONTINUE TO MONITOR.
--- NOTE | 2020-09-21 10:11 | NUR ---
PT TOLERATING DOBUTAMINE INFUSION, PORT SITE BENIGN, VSS, WILL CONTINUE TO MONITOR.
--- NOTE | 2020-09-21 11:11 | NUR ---
Discharge Instructions See e-MAR for any mediations given with this visit. Patient education given on disease process. Patient verbalized understanding. Previous labs reviewed. Patient discharged in stable condition with after care instructions and follow up appointment ON MON. NOTE DOBUTAMINE IV [id number] ADMIN BY JULIEAT ALVAREZ HEPARIN IVP ADMIN BY JULIETA ALVAREZ
[2020-09-21 12:16] LABS: BUN/Creatinine Ratio 13.6; Calcium 9.1 mg/dL (8.5-10.1); Magnesium 2.7 mg/dL (1.6-2.6)
== END | disposition home or self-care (01) ==
LOC: CHF HDHVI 08:04
PROVIDERS: ATTEND Internal Medicine Cardiovascular Disease
DX: I13.2 Hypertensive heart and chronic kidney disease with heart failure and with stage 5 chronic kidney disease, or end stage renal disease (principal); E11.22 Type 2 diabetes mellitus with diabetic chronic kidney disease; N18.6 End stage renal disease; I50.23 Acute on chronic systolic (congestive) heart failure; I50.84 End stage heart failure; R53.83 Other fatigue; I25.10 Atherosclerotic heart disease of native coronary artery without angina pectoris; I48.11 Longstanding persistent atrial fibrillation; I25.2 Old myocardial infarction; I42.8 Other cardiomyopathies; J44.9 Chronic obstructive pulmonary disease, unspecified; K21.9 Gastro-esophageal reflux disease without esophagitis; E78.5 Hyperlipidemia, unspecified; E03.9 Hypothyroidism, unspecified; F32.9 Major depressive disorder, single episode, unspecified; F41.9 Anxiety disorder, unspecified; G89.29 Other chronic pain; E11.21 Type 2 diabetes mellitus with diabetic nephropathy; E11.42 Type 2 diabetes mellitus with diabetic polyneuropathy; E11.319 Type 2 diabetes mellitus with unspecified diabetic retinopathy without macular edema; M17.12 Unilateral primary osteoarthritis, left knee; Z79.899 Other long term (current) drug therapy; Z85.030 Personal history of malignant carcinoid tumor of large intestine; Z85.060 Personal history of malignant carcinoid tumor of small intestine; Z85.810 Personal history of malignant neoplasm of tongue; Z85.46 Personal history of malignant neoplasm of prostate; Z95.1 Presence of aortocoronary bypass graft; Z90.49 Acquired absence of other specified parts of digestive tract; Z79.01 Long term (current) use of anticoagulants; Z95.5 Presence of coronary angioplasty implant and graft; Z86.73 Personal history of transient ischemic attack (TIA), and cerebral infarction without residual deficits
CPT/HCPCS: 36415; 80048; 83735; 83880; 96365; 96366; G0463; J1250; J1642

== ENCOUNTER → 2020-09-23 | Outpatient (CLI) | payer OTHER ==
[2020-09-23] VITALS (9 sets, daily range): BP systolic 103–127; BP diastolic 47–66
[~2020-09-23] VITALS: Ht 30.5 cm; Wt 88.2 kg
== END | disposition home or self-care (01) ==
LOC: CHF HDHVI 07:58
PROVIDERS: ATTEND Internal Medicine Cardiovascular Disease
DX: I13.2 Hypertensive heart and chronic kidney disease with heart failure and with stage 5 chronic kidney disease, or end stage renal disease (principal); E11.22 Type 2 diabetes mellitus with diabetic chronic kidney disease; N18.6 End stage renal disease; I50.23 Acute on chronic systolic (congestive) heart failure; I50.84 End stage heart failure; R53.83 Other fatigue; F41.9 Anxiety disorder, unspecified; I25.10 Atherosclerotic heart disease of native coronary artery without angina pectoris; I48.11 Longstanding persistent atrial fibrillation; I42.8 Other cardiomyopathies; I25.2 Old myocardial infarction; I27.21 Secondary pulmonary arterial hypertension; J44.9 Chronic obstructive pulmonary disease, unspecified; K21.9 Gastro-esophageal reflux disease without esophagitis; E78.5 Hyperlipidemia, unspecified; E03.9 Hypothyroidism, unspecified; F32.9 Major depressive disorder, single episode, unspecified; G89.29 Other chronic pain; E11.21 Type 2 diabetes mellitus with diabetic nephropathy; E11.42 Type 2 diabetes mellitus with diabetic polyneuropathy; E11.319 Type 2 diabetes mellitus with unspecified diabetic retinopathy without macular edema; M17.12 Unilateral primary osteoarthritis, left knee; E78.00 Pure hypercholesterolemia, unspecified; E11.51 Type 2 diabetes mellitus with diabetic peripheral angiopathy without gangrene; Z79.899 Other long term (current) drug therapy; Z90.49 Acquired absence of other specified parts of digestive tract; Z85.030 Personal history of malignant carcinoid tumor of large intestine; Z85.060 Personal history of malignant carcinoid tumor of small intestine; Z85.810 Personal history of malignant neoplasm of tongue; Z86.73 Personal history of transient ischemic attack (TIA), and cerebral infarction without residual deficits; Z79.01 Long term (current) use of anticoagulants; Z87.891 Personal history of nicotine dependence; Z95.810 Presence of automatic (implantable) cardiac defibrillator; Z95.1 Presence of aortocoronary bypass graft; Z95.5 Presence of coronary angioplasty implant and graft
CPT/HCPCS: 96365; 96366; G0463; J1250; J1642

== ENCOUNTER → 2020-09-25 | Outpatient (CLI) | payer OTHER ==
[2020-09-25] VITALS (9 sets, daily range): BP systolic 89–126; BP diastolic 43–64
--- NOTE | 2020-09-25 07:56 | NUR ---
CLINIC PT ARRIVED TO THE CHF CLINIC FOR SCHEDULED WEEKLY CHF EVAL AND TX, A/OX4, AMBULATORY, BREATHING IS EVEN AND UNLABORED.
--- NOTE | 2020-09-25 08:03 | NUR ---
DOBUTAMINE IV STARTED @ 5MCG/KG/MIN PER MD ORDERS, VSS, WILL CONTINUE TO MONITOR.
--- NOTE | 2020-09-25 09:46 | NUR ---
PT TOLERATING DOBUTAMINE INFUSION, PORT SITE BENIGN, VSS, WILL CONTINUE TO MONITOR.
--- NOTE | 2020-09-25 11:11 | NUR ---
WOUND CARE DONE BY JULIETA ALVAREZ PORT SITE CLEANED WITH CLORA PRE SWABS, HONEY PLACED ON WOUND THEN COVERED WITH NON STICK PAD AND COVERED WITH TEGADERM
--- NOTE | 2020-09-25 11:19 | NUR ---
Discharge Instructions See e-MAR for any mediations given with this visit. Patient education given on disease process. Patient verbalized understanding. Previous labs reviewed. Patient discharged in stable condition with after care instructions and follow up appointment ON MONDAY. NOTA DOBUTAMINE IV [id number] ADMIN BY JULIETA ALVAREZ HEPARIN IVP ADMIN BY JULIETA ALVAREZCRAP GAME BOX PERSON DONE BY JULIETA ALVAREZ
== END | disposition home or self-care (01) ==
LOC: CHF HDHVI 07:59
PROVIDERS: ATTEND Internal Medicine Cardiovascular Disease
DX: I13.2 Hypertensive heart and chronic kidney disease with heart failure and with stage 5 chronic kidney disease, or end stage renal disease (principal); E11.22 Type 2 diabetes mellitus with diabetic chronic kidney disease; N18.6 End stage renal disease; I50.23 Acute on chronic systolic (congestive) heart failure; I50.84 End stage heart failure; R53.83 Other fatigue; I25.10 Atherosclerotic heart disease of native coronary artery without angina pectoris; I48.11 Longstanding persistent atrial fibrillation; I25.2 Old myocardial infarction; I27.21 Secondary pulmonary arterial hypertension; I42.8 Other cardiomyopathies; F41.9 Anxiety disorder, unspecified; J44.9 Chronic obstructive pulmonary disease, unspecified; K21.9 Gastro-esophageal reflux disease without esophagitis; E78.5 Hyperlipidemia, unspecified; E03.9 Hypothyroidism, unspecified; F32.9 Major depressive disorder, single episode, unspecified; G89.29 Other chronic pain; E78.00 Pure hypercholesterolemia, unspecified; E11.21 Type 2 diabetes mellitus with diabetic nephropathy; E11.42 Type 2 diabetes mellitus with diabetic polyneuropathy; E11.51 Type 2 diabetes mellitus with diabetic peripheral angiopathy without gangrene; E11.319 Type 2 diabetes mellitus with unspecified diabetic retinopathy without macular edema; Z95.1 Presence of aortocoronary bypass graft; Z79.899 Other long term (current) drug therapy; Z85.030 Personal history of malignant carcinoid tumor of large intestine; Z85.060 Personal history of malignant carcinoid tumor of small intestine; Z85.810 Personal history of malignant neoplasm of tongue; Z85.46 Personal history of malignant neoplasm of prostate; Z87.891 Personal history of nicotine dependence; Z95.810 Presence of automatic (implantable) cardiac defibrillator; Z79.01 Long term (current) use of anticoagulants; Z95.5 Presence of coronary angioplasty implant and graft; Z86.73 Personal history of transient ischemic attack (TIA), and cerebral infarction without residual deficits
CPT/HCPCS: 96365; 96366; G0463; J1250; J1642

== ENCOUNTER → 2020-09-28 | Outpatient (CLI) | payer OTHER ==
[2020-09-28] VITALS (9 sets, daily range): BP systolic 102–132; BP diastolic 50–70
--- NOTE | 2020-09-28 08:01 | NUR ---
CLINIC PT ARRIVED TO THE CHF CLINIC FOR SCHEDULED WEEKLY CHF EVAL AND TX. A/OX4, AMBULATORY, BREATHING IS EVEN AND UNLABORED.
--- NOTE | 2020-09-28 08:15 | NUR ---
DOBUTAMINE IV STARTED @ 5MCG/KG/MIN, VSS, WILL CONTINUE TO MONITOR.
--- NOTE | 2020-09-28 09:40 | NUR ---
PT TOLERATING DOBUTAMINE INFUSION, PORT SITE BENIGN, VSS, WILL CONTINUE TO MONITOR.
--- NOTE | 2020-09-28 11:22 | NUR ---
Ayah Cath Removal Quinones needle D/C'd after Heparin flush per protocol. See e-MAR for medications given during this visit. Sterile occlusive dressing to site. Patient tolerated procedure well. Site benign post infusion. NOTE REMOVED BY KALIE ALVAREZ
--- NOTE | 2020-09-28 11:23 | NUR ---
WOUND CARE DONE BY JULIETA ALVAREZ HONEY PLACED ON SLOW HEALING PORT SITE COVERED WITH NON STICK PAD AND TEGADERM.
--- NOTE | 2020-09-28 11:29 | NUR ---
Discharge Instructions See e-MAR for any mediations given with this visit. Patient education given on disease process. Patient verbalized understanding. Previous labs reviewed. Patient discharged in stable condition with after care instructions and follow up appointment TOMORROW FOR PACEMAKER CHECK, AND WED FOR CHF EVAL AND TX. NOTE DOBUTAMINE IV [id number] ADMIN BY JULIETA ALVAREZ HEPARIN IVP ADMIN BY KALIE ALVAREZVP SOFTWARE ENGINEERING DONE BY JULIETA ALVAREZ
[2020-09-28 12:07] LABS: Basophils # (auto) 0 10 ^3/uL (0-0.2); Basophils % (auto) 0.7 % (0.0-2.0); Eosinophils # (auto) 0.1 10 ^3/uL (0-0.8); Hematocrit 39.6 % (41.0-53.0); Hemoglobin 13.2 g/dL (13.5-17.5); Mean Corpuscular Hemoglobin 32.3 pg (28.0-32.0); Mean Corpuscular Hgb Conc. 33.4 g/dL (32.0-36.0); Mean Corpuscular Volume 96.7 fL (80.0-100.0); Neutrophils # (auto) 1.6 10 ^3/uL (1.6-8.6); Neutrophils % (auto) 47.7 % (37.0-80.0); Nucleated Red Blood Cells % 0.1 %; Platelet Count (auto) 131 10^3/uL (140-450); Red Cell Distribution Width 13.8 % (11.8-14.3); White Blood Cell 3.4 10^3/uL (4.4-10.8)
[2020-09-28 12:10] LABS: Lymphocytes # (auto) 1.1 10 ^3/uL (0.4-5.4); Lymphocytes % (auto) 29.6 % (10.0-50.0); Monocytes # (auto) 0.5 10 ^3/uL (0-1.3)
[2020-09-28 12:30] LABS: Potassium 4.1 mmol/L (3.5-5.1)
[2020-09-28 13:03] LABS: Calcium 8.6 mg/dL (8.5-10.1); Magnesium 2.6 mg/dL (1.6-2.6)
== END | disposition home or self-care (01) ==
LOC: CHF HDHVI 08:12
PROVIDERS: ATTEND Internal Medicine Cardiovascular Disease
DX: I13.2 Hypertensive heart and chronic kidney disease with heart failure and with stage 5 chronic kidney disease, or end stage renal disease (principal); E11.22 Type 2 diabetes mellitus with diabetic chronic kidney disease; N18.6 End stage renal disease; I50.23 Acute on chronic systolic (congestive) heart failure; I25.10 Atherosclerotic heart disease of native coronary artery without angina pectoris; I50.84 End stage heart failure; I27.21 Secondary pulmonary arterial hypertension; I48.11 Longstanding persistent atrial fibrillation; I25.2 Old myocardial infarction; I42.8 Other cardiomyopathies; R53.83 Other fatigue; F41.9 Anxiety disorder, unspecified; J44.9 Chronic obstructive pulmonary disease, unspecified; K21.9 Gastro-esophageal reflux disease without esophagitis; E78.5 Hyperlipidemia, unspecified; E03.9 Hypothyroidism, unspecified; F32.9 Major depressive disorder, single episode, unspecified; G89.29 Other chronic pain; E78.00 Pure hypercholesterolemia, unspecified; E11.21 Type 2 diabetes mellitus with diabetic nephropathy; E11.42 Type 2 diabetes mellitus with diabetic polyneuropathy; E11.51 Type 2 diabetes mellitus with diabetic peripheral angiopathy without gangrene; E11.319 Type 2 diabetes mellitus with unspecified diabetic retinopathy without macular edema; M17.12 Unilateral primary osteoarthritis, left knee; Z79.899 Other long term (current) drug therapy; Z85.030 Personal history of malignant carcinoid tumor of large intestine; Z90.49 Acquired absence of other specified parts of digestive tract; Z85.060 Personal history of malignant carcinoid tumor of small intestine; Z85.810 Personal history of malignant neoplasm of tongue; Z85.46 Personal history of malignant neoplasm of prostate; Z87.891 Personal history of nicotine dependence; Z95.5 Presence of coronary angioplasty implant and graft; Z79.01 Long term (current) use of anticoagulants; Z95.810 Presence of automatic (implantable) cardiac defibrillator; Z86.73 Personal history of transient ischemic attack (TIA), and cerebral infarction without residual deficits
CPT/HCPCS: 36415; 80048; 83735; 83880; 85025; 96365; 96366; G0463; J1250; J1642

== ENCOUNTER → 2020-09-30 | Outpatient (CLI) | payer OTHER ==
[2020-09-30] VITALS (9 sets, daily range): BP systolic 103–122; BP diastolic 49–78
== END | disposition home or self-care (01) ==
LOC: CHF HDHVI 08:21
PROVIDERS: ATTEND Internal Medicine Cardiovascular Disease
DX: I13.2 Hypertensive heart and chronic kidney disease with heart failure and with stage 5 chronic kidney disease, or end stage renal disease (principal); E11.22 Type 2 diabetes mellitus with diabetic chronic kidney disease; N18.6 End stage renal disease; I50.23 Acute on chronic systolic (congestive) heart failure; I50.84 End stage heart failure; I25.10 Atherosclerotic heart disease of native coronary artery without angina pectoris; I48.11 Longstanding persistent atrial fibrillation; I25.2 Old myocardial infarction; I27.21 Secondary pulmonary arterial hypertension; I42.8 Other cardiomyopathies; J44.9 Chronic obstructive pulmonary disease, unspecified; K21.9 Gastro-esophageal reflux disease without esophagitis; E78.5 Hyperlipidemia, unspecified; E03.9 Hypothyroidism, unspecified; F41.9 Anxiety disorder, unspecified; F32.9 Major depressive disorder, single episode, unspecified; G89.29 Other chronic pain; R53.83 Other fatigue; E78.00 Pure hypercholesterolemia, unspecified; Z79.899 Other long term (current) drug therapy; Z85.030 Personal history of malignant carcinoid tumor of large intestine; Z85.060 Personal history of malignant carcinoid tumor of small intestine; Z85.46 Personal history of malignant neoplasm of prostate; Z85.810 Personal history of malignant neoplasm of tongue; Z87.891 Personal history of nicotine dependence; Z95.810 Presence of automatic (implantable) cardiac defibrillator; Z79.01 Long term (current) use of anticoagulants; Z90.49 Acquired absence of other specified parts of digestive tract; Z86.73 Personal history of transient ischemic attack (TIA), and cerebral infarction without residual deficits
CPT/HCPCS: 96365; 96366; G0463; J1250; J1642

== ENCOUNTER → 2020-10-02 | Outpatient (CLI) | payer OTHER ==
[2020-10-02] VITALS (9 sets, daily range): BP systolic 103–120; BP diastolic 48–64
[~2020-10-02] MED LIST changes: +CYANOCOBALAMIN (B-12) 1000 MCG/1 ML VIAL IM ONE; +CYANOCOBALAMIN (B-12) 1000 MCG/1 ML VIAL ONE
== END | disposition home or self-care (01) ==
LOC: CHF HDHVI 08:13
PROVIDERS: ATTEND Internal Medicine Cardiovascular Disease
DX: I13.2 Hypertensive heart and chronic kidney disease with heart failure and with stage 5 chronic kidney disease, or end stage renal disease (principal); E11.22 Type 2 diabetes mellitus with diabetic chronic kidney disease; N18.6 End stage renal disease; I50.23 Acute on chronic systolic (congestive) heart failure; I50.84 End stage heart failure; R53.83 Other fatigue; I48.11 Longstanding persistent atrial fibrillation; F41.9 Anxiety disorder, unspecified; I25.10 Atherosclerotic heart disease of native coronary artery without angina pectoris; I25.2 Old myocardial infarction; I42.8 Other cardiomyopathies; I27.21 Secondary pulmonary arterial hypertension; J44.9 Chronic obstructive pulmonary disease, unspecified; K21.9 Gastro-esophageal reflux disease without esophagitis; E78.5 Hyperlipidemia, unspecified; E03.9 Hypothyroidism, unspecified; F32.9 Major depressive disorder, single episode, unspecified; E11.21 Type 2 diabetes mellitus with diabetic nephropathy; E78.00 Pure hypercholesterolemia, unspecified; E11.42 Type 2 diabetes mellitus with diabetic polyneuropathy; E11.51 Type 2 diabetes mellitus with diabetic peripheral angiopathy without gangrene; E11.319 Type 2 diabetes mellitus with unspecified diabetic retinopathy without macular edema; M17.12 Unilateral primary osteoarthritis, left knee; Z79.01 Long term (current) use of anticoagulants; Z95.1 Presence of aortocoronary bypass graft; Z90.49 Acquired absence of other specified parts of digestive tract; Z79.899 Other long term (current) drug therapy; Z85.030 Personal history of malignant carcinoid tumor of large intestine; Z85.060 Personal history of malignant carcinoid tumor of small intestine; Z85.810 Personal history of malignant neoplasm of tongue; Z85.46 Personal history of malignant neoplasm of prostate; Z95.5 Presence of coronary angioplasty implant and graft; Z87.891 Personal history of nicotine dependence; Z95.810 Presence of automatic (implantable) cardiac defibrillator; Z86.73 Personal history of transient ischemic attack (TIA), and cerebral infarction without residual deficits
CPT/HCPCS: 96365; 96366; 96372; G0463; J1250; J1642; J3420

== ENCOUNTER → 2020-10-05 | Outpatient (CLI) | payer OTHER ==
[~2020-10-05] VITALS: Ht 30.5 cm; Wt 88.5 kg
[2020-10-05] VITALS (9 sets, daily range): BP systolic 100–133; BP diastolic 47–69
[~2020-10-05] MED LIST changes: -CYANOCOBALAMIN (B-12) 1000 MCG/1 ML VIAL IM ONE; -CYANOCOBALAMIN (B-12) 1000 MCG/1 ML VIAL ONE
[2020-10-05 12:35] LABS: Potassium 4.1 mmol/L (3.5-5.1)
[2020-10-05 12:40] LABS: BUN/Creatinine Ratio 15.3; Calcium 8.8 mg/dL (8.5-10.1); Magnesium 2.7 mg/dL (1.6-2.6)
== END | disposition home or self-care (01) ==
LOC: CHF HDHVI 08:03
PROVIDERS: ATTEND Internal Medicine Cardiovascular Disease
DX: I13.2 Hypertensive heart and chronic kidney disease with heart failure and with stage 5 chronic kidney disease, or end stage renal disease (principal); E11.22 Type 2 diabetes mellitus with diabetic chronic kidney disease; N18.6 End stage renal disease; I50.23 Acute on chronic systolic (congestive) heart failure; I50.84 End stage heart failure; R53.83 Other fatigue; I42.8 Other cardiomyopathies; F41.9 Anxiety disorder, unspecified; I25.10 Atherosclerotic heart disease of native coronary artery without angina pectoris; I48.11 Longstanding persistent atrial fibrillation; I27.21 Secondary pulmonary arterial hypertension; J44.9 Chronic obstructive pulmonary disease, unspecified; I25.2 Old myocardial infarction; K21.9 Gastro-esophageal reflux disease without esophagitis; E78.5 Hyperlipidemia, unspecified; E03.9 Hypothyroidism, unspecified; F32.9 Major depressive disorder, single episode, unspecified; E78.00 Pure hypercholesterolemia, unspecified; E11.21 Type 2 diabetes mellitus with diabetic nephropathy; E11.42 Type 2 diabetes mellitus with diabetic polyneuropathy; E11.51 Type 2 diabetes mellitus with diabetic peripheral angiopathy without gangrene; E11.319 Type 2 diabetes mellitus with unspecified diabetic retinopathy without macular edema; M17.12 Unilateral primary osteoarthritis, left knee; G89.29 Other chronic pain; Z79.01 Long term (current) use of anticoagulants; Z90.49 Acquired absence of other specified parts of digestive tract; Z79.899 Other long term (current) drug therapy; Z85.030 Personal history of malignant carcinoid tumor of large intestine; Z85.060 Personal history of malignant carcinoid tumor of small intestine; Z85.810 Personal history of malignant neoplasm of tongue; Z85.46 Personal history of malignant neoplasm of prostate; Z95.1 Presence of aortocoronary bypass graft; Z87.891 Personal history of nicotine dependence; Z95.810 Presence of automatic (implantable) cardiac defibrillator; Z95.5 Presence of coronary angioplasty implant and graft; Z86.73 Personal history of transient ischemic attack (TIA), and cerebral infarction without residual deficits
CPT/HCPCS: 36415; 80048; 83735; 83880; 96365; 96366; G0463; J1250; J1642

== ENCOUNTER → 2020-10-07 | Outpatient (CLI) | payer OTHER ==
[~2020-10-07] VITALS: Ht 180.3 cm; Wt 87.6 kg
[2020-10-07] VITALS (9 sets, daily range): BP systolic 86–127; BP diastolic 46–72
--- NOTE | 2020-10-07 08:00 | NUR ---
PT. TO CHF CLINIC FOR DOBUTAMINE THERAPY PER MD ORDER. AOX4, PWD, WITH SLIGHT WORSENING SOB WITH EXERTION. MD ORDERS RECEIVED AND CARRIED OUT.
--- NOTE | 2020-10-07 08:12 | NUR ---
Clinic Provider Clinic Provider into see pt with new orders received and carried out. Dobutamine gtt started at {5}mcg/kg/hr per MD order.
--- NOTE | 2020-10-07 09:15 | NUR ---
DR. MATHEWS AT BEDSIDE FOR EVAL. NO FURTHER ORDERS RECEIVED. PT. WITH NO C/O. VSS
--- NOTE | 2020-10-07 11:18 | NUR ---
Ayah Cath Removal Quinones needle D/C'd after Heparin flush per protocol. See e-MAR for medications given during this visit. Sterile occlusive dressing to site. Patient tolerated procedure well. Site benign post infusion. NOTE REMOVED BY JAYDEN ALVAREZ
--- NOTE | 2020-10-07 11:22 | NUR ---
Discharge Instructions See e-MAR for any mediations given with this visit. Patient education given on disease process. Patient verbalized understanding. Previous labs reviewed. Patient discharged in stable condition with after care instructions and follow up appointment ON MONDAY. NOTE DOBUTAMINE IV [id number] ADMIN BY JULIETA ALVAREZ HEPARIN IVP ADMIN BY JAYDEN ALVAREZ
== END | disposition home or self-care (01) ==
LOC: CHF HDHVI 08:00
PROVIDERS: ATTEND Internal Medicine Cardiovascular Disease
DX: I13.2 Hypertensive heart and chronic kidney disease with heart failure and with stage 5 chronic kidney disease, or end stage renal disease (principal); E11.22 Type 2 diabetes mellitus with diabetic chronic kidney disease; N18.6 End stage renal disease; I50.23 Acute on chronic systolic (congestive) heart failure; I50.84 End stage heart failure; I25.10 Atherosclerotic heart disease of native coronary artery without angina pectoris; I27.21 Secondary pulmonary arterial hypertension; I25.2 Old myocardial infarction; I42.8 Other cardiomyopathies; J44.9 Chronic obstructive pulmonary disease, unspecified; K21.9 Gastro-esophageal reflux disease without esophagitis; E78.5 Hyperlipidemia, unspecified; F41.9 Anxiety disorder, unspecified; E03.9 Hypothyroidism, unspecified; F32.9 Major depressive disorder, single episode, unspecified; G89.29 Other chronic pain; E78.00 Pure hypercholesterolemia, unspecified; E11.21 Type 2 diabetes mellitus with diabetic nephropathy; E11.42 Type 2 diabetes mellitus with diabetic polyneuropathy; E11.51 Type 2 diabetes mellitus with diabetic peripheral angiopathy without gangrene; E11.319 Type 2 diabetes mellitus with unspecified diabetic retinopathy without macular edema; M17.12 Unilateral primary osteoarthritis, left knee; Z79.899 Other long term (current) drug therapy; Z85.030 Personal history of malignant carcinoid tumor of large intestine; Z85.060 Personal history of malignant carcinoid tumor of small intestine; Z85.810 Personal history of malignant neoplasm of tongue; Z85.46 Personal history of malignant neoplasm of prostate; Z90.49 Acquired absence of other specified parts of digestive tract; Z87.891 Personal history of nicotine dependence; Z95.1 Presence of aortocoronary bypass graft; Z79.01 Long term (current) use of anticoagulants; Z95.810 Presence of automatic (implantable) cardiac defibrillator; Z86.73 Personal history of transient ischemic attack (TIA), and cerebral infarction without residual deficits
CPT/HCPCS: 96365; 96366; G0463; J1250; J1642

== ENCOUNTER → 2020-10-09 | Outpatient (CLI) | payer OTHER ==
[2020-10-09] VITALS (9 sets, daily range): BP systolic 111–129; BP diastolic 53–73
--- NOTE | 2020-10-09 08:00 | NUR ---
CLINIC PT ARRIVED TO THE CHF CLINIC FOR SCHEDULED WEEKLY CHF EVAL AND TX, A/OX4, AMBULATORY, BREATHING IS EVEN AND UNLABORED.
--- NOTE | 2020-10-09 08:13 | NUR ---
DOBUTAMINE IV STARTED @ 5MCG/KG/MIN PER MD ORDERS, VSS, WILL CONTINUE TO MONITOR.
--- NOTE | 2020-10-09 10:24 | NUR ---
PT TOLERATING DOBUTAMINE INFUSION, PORT SITE BENIGN, VSS, WILL CONTINUE TO MONITOR.
--- NOTE | 2020-10-09 11:21 | NUR ---
WOUND CARE DONE BY JULIETA ALVAREZ CHRONIC SLOW HEALING PORT INSERTION SITE DO TO MULTIPLE ACCESS. RECOMMENDS M[facility] FOR WOUND HEALING. PORT SITE CLEANED WITH CLORA PREP MEDIHONEY APPLIED WITH STERILE DRESSING COVERING SITE. WAITING ON AUTHORIZATION FOR [facility].
--- NOTE | 2020-10-09 11:29 | NUR ---
Discharge Instructions See e-MAR for any mediations given with this visit. Patient education given on disease process. Patient verbalized understanding. Previous labs reviewed. Patient discharged in stable condition with after care instructions and follow up appointment ON MONDAY. NOTE DOBUTAMINE IV [id number] ADMIN BY JULIETA ALVAREZ HEPARIN IVP ADMIN BY JULIETA ALVAREZPAINT AND TABLE EDGER DONE BY JULIETA ALVAREZ
== END | disposition home or self-care (01) ==
LOC: CHF HDHVI 08:14
PROVIDERS: ATTEND Internal Medicine Cardiovascular Disease
DX: I13.2 Hypertensive heart and chronic kidney disease with heart failure and with stage 5 chronic kidney disease, or end stage renal disease (principal); E11.22 Type 2 diabetes mellitus with diabetic chronic kidney disease; N18.6 End stage renal disease; I50.23 Acute on chronic systolic (congestive) heart failure; I50.84 End stage heart failure; I25.10 Atherosclerotic heart disease of native coronary artery without angina pectoris; I48.11 Longstanding persistent atrial fibrillation; I27.21 Secondary pulmonary arterial hypertension; I25.2 Old myocardial infarction; I42.8 Other cardiomyopathies; J44.9 Chronic obstructive pulmonary disease, unspecified; R53.83 Other fatigue; K21.9 Gastro-esophageal reflux disease without esophagitis; F41.9 Anxiety disorder, unspecified; E78.5 Hyperlipidemia, unspecified; E03.9 Hypothyroidism, unspecified; F32.9 Major depressive disorder, single episode, unspecified; G89.29 Other chronic pain; E78.00 Pure hypercholesterolemia, unspecified; E11.21 Type 2 diabetes mellitus with diabetic nephropathy; E11.42 Type 2 diabetes mellitus with diabetic polyneuropathy; E11.51 Type 2 diabetes mellitus with diabetic peripheral angiopathy without gangrene; E11.319 Type 2 diabetes mellitus with unspecified diabetic retinopathy without macular edema; M17.12 Unilateral primary osteoarthritis, left knee; Z85.030 Personal history of malignant carcinoid tumor of large intestine; Z85.060 Personal history of malignant carcinoid tumor of small intestine; Z85.810 Personal history of malignant neoplasm of tongue; Z85.46 Personal history of malignant neoplasm of prostate; Z87.891 Personal history of nicotine dependence; Z95.1 Presence of aortocoronary bypass graft; Z95.810 Presence of automatic (implantable) cardiac defibrillator; Z86.73 Personal history of transient ischemic attack (TIA), and cerebral infarction without residual deficits; Z90.49 Acquired absence of other specified parts of digestive tract; Z79.01 Long term (current) use of anticoagulants; Z95.5 Presence of coronary angioplasty implant and graft
CPT/HCPCS: 96365; 96366; G0463; J1250; J1642

== ENCOUNTER → 2020-10-12 | Outpatient (CLI) | payer OTHER ==
[2020-10-12] VITALS (9 sets, daily range): BP systolic 90–122; BP diastolic 40–62
--- NOTE | 2020-10-12 07:55 | NUR ---
CLINIC PT ARRIVED TO THE CHF CLINIC FOR SCHEDULED WEEKLY CHF EVAL AND TX, A/OX4, AMBULATORY, BREATHING IS EVEN AND UNLABORED.
--- NOTE | 2020-10-12 08:09 | NUR ---
DOBUTAMINE IV STARTED @ 5MCG/KG/MIN PER MD ORDERS, VSS, WILL CONTINUE TO MONITOR.
--- NOTE | 2020-10-12 10:02 | NUR ---
PT TOLERATING DOBUTAMINE INFUSION, PORT SITE BENIGN, VSS, WILL CONTINUE TO MONITOR.
--- NOTE | 2020-10-12 11:16 | NUR ---
Ayah Cath Removal Quinones needle D/C'd after Heparin flush per protocol. See e-MAR for medications given during this visit. Sterile occlusive dressing to site. Patient tolerated procedure well. Site benign post infusion. NOTE REMOVED BY RAJAN ALVAREZ
--- NOTE | 2020-10-12 11:20 | NUR ---
Discharge Instructions See e-MAR for any mediations given with this visit. Patient education given on disease process. Patient verbalized understanding. Previous labs reviewed. Patient discharged in stable condition with after care instructions and follow up appointment ON MON. NOTE DOBUTAMINE IV [id number] ADMIN BY JULIETA ALVAREZ HEPARIN IVP ADMIN BY RAJAN ALVAREZ
[2020-10-12 12:34] LABS: Basophils # (auto) 0 10 ^3/uL (0-0.2); Basophils % (auto) 0.5 % (0.0-2.0); Eosinophils # (auto) 0.2 10 ^3/uL (0-0.8); Eosinophils % (auto) 4.7 % (0.0-7.0); Hematocrit 39.9 % (41.0-53.0); Hemoglobin 13.5 g/dL (13.5-17.5); Lymphocytes # (auto) 1.2 10 ^3/uL (0.4-5.4); Lymphocytes % (auto) 34.9 % (10.0-50.0); Mean Corpuscular Hemoglobin 32.7 pg (28.0-32.0); Mean Corpuscular Hgb Conc. 33.9 g/dL (32.0-36.0); Mean Corpuscular Volume 96.6 fL (80.0-100.0); Monocytes # (auto) 0.6 10 ^3/uL (0-1.3); Monocytes % (auto) 17.3 % (0.0-12.0); Neutrophils # (auto) 1.4 10 ^3/uL (1.6-8.6); Neutrophils % (auto) 42.6 % (37.0-80.0); Nucleated Red Blood Cells % 0.1 %; Platelet Count (auto) 144 10^3/uL (140-450); Red Blood Cells 4.13 10^6/uL (4.5-5.90); Red Cell Distribution Width 13.5 % (11.8-14.3); White Blood Cell 3.3 10^3/uL (4.4-10.8)
[2020-10-12 12:48] LABS: BUN/Creatinine Ratio 15.3; Calcium 8.5 mg/dL (8.5-10.1); Magnesium 2.5 mg/dL (1.6-2.6)
== END | disposition home or self-care (01) ==
LOC: CHF HDHVI 08:03
PROVIDERS: ATTEND Internal Medicine Cardiovascular Disease
DX: I13.2 Hypertensive heart and chronic kidney disease with heart failure and with stage 5 chronic kidney disease, or end stage renal disease (principal); E11.22 Type 2 diabetes mellitus with diabetic chronic kidney disease; I50.84 End stage heart failure; I50.23 Acute on chronic systolic (congestive) heart failure; N18.6 End stage renal disease; F41.9 Anxiety disorder, unspecified; I25.10 Atherosclerotic heart disease of native coronary artery without angina pectoris; J44.9 Chronic obstructive pulmonary disease, unspecified; K21.9 Gastro-esophageal reflux disease without esophagitis; E78.5 Hyperlipidemia, unspecified; I48.11 Longstanding persistent atrial fibrillation; I25.2 Old myocardial infarction; E78.00 Pure hypercholesterolemia, unspecified; E11.40 Type 2 diabetes mellitus with diabetic neuropathy, unspecified; E11.51 Type 2 diabetes mellitus with diabetic peripheral angiopathy without gangrene; M17.12 Unilateral primary osteoarthritis, left knee; F31.9 Bipolar disorder, unspecified; Z90.49 Acquired absence of other specified parts of digestive tract; Z79.01 Long term (current) use of anticoagulants; Z87.891 Personal history of nicotine dependence; Z95.810 Presence of automatic (implantable) cardiac defibrillator; Z95.5 Presence of coronary angioplasty implant and graft; Z86.73 Personal history of transient ischemic attack (TIA), and cerebral infarction without residual deficits; Z79.899 Other long term (current) drug therapy
CPT/HCPCS: 36415; 80048; 83735; 83880; 85025; 96365; 96366; G0463; J1250; J1642

== ENCOUNTER → 2020-10-14 | Outpatient (CLI) | payer OTHER ==
[2020-10-14] VITALS (9 sets, daily range): BP systolic 106–127; BP diastolic 54–70
[~2020-10-14] VITALS: Ht 30.5 cm; Wt 87.7 kg
== END | disposition home or self-care (01) ==
LOC: CHF HDHVI 08:08
PROVIDERS: ATTEND Internal Medicine Cardiovascular Disease
DX: I13.2 Hypertensive heart and chronic kidney disease with heart failure and with stage 5 chronic kidney disease, or end stage renal disease (principal); E11.22 Type 2 diabetes mellitus with diabetic chronic kidney disease; N18.6 End stage renal disease; I50.23 Acute on chronic systolic (congestive) heart failure; I50.84 End stage heart failure; R53.83 Other fatigue; I48.11 Longstanding persistent atrial fibrillation; I25.10 Atherosclerotic heart disease of native coronary artery without angina pectoris; I42.8 Other cardiomyopathies; I27.21 Secondary pulmonary arterial hypertension; I25.2 Old myocardial infarction; F41.9 Anxiety disorder, unspecified; J44.9 Chronic obstructive pulmonary disease, unspecified; K21.9 Gastro-esophageal reflux disease without esophagitis; E78.5 Hyperlipidemia, unspecified; E78.00 Pure hypercholesterolemia, unspecified; E11.51 Type 2 diabetes mellitus with diabetic peripheral angiopathy without gangrene; M17.12 Unilateral primary osteoarthritis, left knee; E03.9 Hypothyroidism, unspecified; F32.9 Major depressive disorder, single episode, unspecified; G89.29 Other chronic pain; E11.42 Type 2 diabetes mellitus with diabetic polyneuropathy; E11.319 Type 2 diabetes mellitus with unspecified diabetic retinopathy without macular edema; Z79.899 Other long term (current) drug therapy; Z87.891 Personal history of nicotine dependence; Z95.810 Presence of automatic (implantable) cardiac defibrillator; Z95.5 Presence of coronary angioplasty implant and graft; Z85.030 Personal history of malignant carcinoid tumor of large intestine; Z85.060 Personal history of malignant carcinoid tumor of small intestine; Z85.810 Personal history of malignant neoplasm of tongue; Z85.46 Personal history of malignant neoplasm of prostate; Z79.01 Long term (current) use of anticoagulants; Z95.1 Presence of aortocoronary bypass graft
CPT/HCPCS: 96365; 96366; G0463; J1250; J1642

== ENCOUNTER → 2020-10-16 | Outpatient (CLI) | payer OTHER ==
[2020-10-16] VITALS (12 sets, daily range): BP systolic 90–119; BP diastolic 41–68
[~2020-10-16] VITALS: Ht 30.5 cm; Wt 88.9 kg
[~2020-10-16] MED LIST changes: +DOBUTamine 1000MCG/ML 250 ML IV SCH; +KETOROLAC TROMETH 30 MG/ML 1ML VIAL IM ONE; +KETOROLAC TROMETH 30 MG/ML 1ML VIAL IV ONE; +KETOROLAC TROMETH 60MG/2ML VIAL ONE
== END | disposition home or self-care (01) ==
LOC: CHF HDHVI 07:52
PROVIDERS: ATTEND Internal Medicine Cardiovascular Disease
DX: I13.2 Hypertensive heart and chronic kidney disease with heart failure and with stage 5 chronic kidney disease, or end stage renal disease (principal); E11.22 Type 2 diabetes mellitus with diabetic chronic kidney disease; N18.6 End stage renal disease; I50.23 Acute on chronic systolic (congestive) heart failure; I48.91 Unspecified atrial fibrillation; I42.8 Other cardiomyopathies; R53.83 Other fatigue; M54.9 Dorsalgia, unspecified; I25.10 Atherosclerotic heart disease of native coronary artery without angina pectoris; I48.11 Longstanding persistent atrial fibrillation; I27.21 Secondary pulmonary arterial hypertension; I25.2 Old myocardial infarction; J44.9 Chronic obstructive pulmonary disease, unspecified; I50.84 End stage heart failure; K21.9 Gastro-esophageal reflux disease without esophagitis; E78.5 Hyperlipidemia, unspecified; F32.9 Major depressive disorder, single episode, unspecified; E78.00 Pure hypercholesterolemia, unspecified; E11.42 Type 2 diabetes mellitus with diabetic polyneuropathy; E11.51 Type 2 diabetes mellitus with diabetic peripheral angiopathy without gangrene; E11.319 Type 2 diabetes mellitus with unspecified diabetic retinopathy without macular edema; M17.12 Unilateral primary osteoarthritis, left knee; E03.9 Hypothyroidism, unspecified; Z79.899 Other long term (current) drug therapy; Z85.030 Personal history of malignant carcinoid tumor of large intestine; Z79.01 Long term (current) use of anticoagulants; Z90.49 Acquired absence of other specified parts of digestive tract; Z85.060 Personal history of malignant carcinoid tumor of small intestine; Z85.810 Personal history of malignant neoplasm of tongue; Z85.46 Personal history of malignant neoplasm of prostate; Z87.891 Personal history of nicotine dependence; Z95.5 Presence of coronary angioplasty implant and graft; Z95.1 Presence of aortocoronary bypass graft; Z95.810 Presence of automatic (implantable) cardiac defibrillator
CPT/HCPCS: 96365; 96366; 96372; 96375; G0463; J1250; J1642; J1885

== ENCOUNTER → 2020-10-19 | Outpatient (CLI) | payer OTHER ==
[2020-10-19] VITALS (9 sets, daily range): BP systolic 102–137; BP diastolic 52–72
[~2020-10-19] MED LIST changes: -DOBUTamine 1000MCG/ML 250 ML IV SCH; -KETOROLAC TROMETH 30 MG/ML 1ML VIAL IM ONE; -KETOROLAC TROMETH 30 MG/ML 1ML VIAL IV ONE; -KETOROLAC TROMETH 60MG/2ML VIAL ONE
--- NOTE | 2020-10-19 07:58 | NUR ---
PT. TO [facility]F CLINIC FOR DOBUTREX INFUSION PER DR. ENGLISH . PT. STAES IMPROVEMENT IN BREATHING OVER THE WEEKEND, WITH SLIGHT INCREASE IN WT GAIN. NO OTHER C/O. MD ORDERS RECEIVED AND CARRIED OUT. PT. HAS META HONEY DRESSING OVER EXISTING LORRI CATH SITE, WHICH CONTINUES TO IMPROVE IN HEALING.
--- NOTE | 2020-10-19 08:10 | NUR ---
Clinic Provider Clinic Provider into see pt with new orders received and carried out. Dobutamine gtt started at {5}mcg/kg/hr per MD order.
[2020-10-19 12:02] LABS: Hematocrit 40.1 % (41.0-53.0); Hemoglobin 13.4 g/dL (13.5-17.5); Mean Corpuscular Hemoglobin 32.3 pg (28.0-32.0); Mean Corpuscular Hgb Conc. 33.6 g/dL (32.0-36.0); Mean Corpuscular Volume 96.3 fL (80.0-100.0); Platelet Count (auto) 144 10^3/uL (140-450); Red Blood Cells 4.16 10^6/uL (4.5-5.90); Red Cell Distribution Width 13.5 % (11.8-14.3); White Blood Cell 3.7 10^3/uL (4.4-10.8)
[2020-10-19 12:31] LABS: Band Neutrophils % (manual) 0; Basophils % (manual) 0 (0.0-2.0); Blast Cells 0; Metamyelocytes % 0; Myelocytes % 0; Promyelocytes % 0; Reactive Lymphocytes 0
[2020-10-19 12:50] LABS: Eosinophils % (manual) 2 (0-7); Lymphocytes % (manual) 27 (10.0-50.0); Monocytes % (manual) 24 (0-12)
[2020-10-19 13:57] LABS: BUN/Creatinine Ratio 14.2; Calcium 8.8 mg/dL (8.5-10.1); Magnesium 2.8 mg/dL (1.6-2.6); Potassium 4.1 mmol/L (3.5-5.1)
== END | disposition home or self-care (01) ==
LOC: CHF HDHVI 08:16
PROVIDERS: ATTEND Internal Medicine Cardiovascular Disease
DX: I13.2 Hypertensive heart and chronic kidney disease with heart failure and with stage 5 chronic kidney disease, or end stage renal disease (principal); E11.22 Type 2 diabetes mellitus with diabetic chronic kidney disease; N18.6 End stage renal disease; I50.23 Acute on chronic systolic (congestive) heart failure; I50.84 End stage heart failure; R53.83 Other fatigue; I25.10 Atherosclerotic heart disease of native coronary artery without angina pectoris; I42.8 Other cardiomyopathies; I48.91 Unspecified atrial fibrillation; I48.11 Longstanding persistent atrial fibrillation; I25.2 Old myocardial infarction; I27.21 Secondary pulmonary arterial hypertension; J44.9 Chronic obstructive pulmonary disease, unspecified; F41.9 Anxiety disorder, unspecified; K21.9 Gastro-esophageal reflux disease without esophagitis; E78.5 Hyperlipidemia, unspecified; E03.9 Hypothyroidism, unspecified; F32.9 Major depressive disorder, single episode, unspecified; G89.29 Other chronic pain; E70.0 Classical phenylketonuria; E11.42 Type 2 diabetes mellitus with diabetic polyneuropathy; E11.51 Type 2 diabetes mellitus with diabetic peripheral angiopathy without gangrene; E11.319 Type 2 diabetes mellitus with unspecified diabetic retinopathy without macular edema; M17.12 Unilateral primary osteoarthritis, left knee; Z90.49 Acquired absence of other specified parts of digestive tract; Z79.899 Other long term (current) drug therapy; Z85.030 Personal history of malignant carcinoid tumor of large intestine; Z85.060 Personal history of malignant carcinoid tumor of small intestine; Z85.810 Personal history of malignant neoplasm of tongue; Z85.46 Personal history of malignant neoplasm of prostate; Z87.891 Personal history of nicotine dependence; Z95.1 Presence of aortocoronary bypass graft; Z79.01 Long term (current) use of anticoagulants; Z95.810 Presence of automatic (implantable) cardiac defibrillator; Z95.5 Presence of coronary angioplasty implant and graft
CPT/HCPCS: 36415; 80048; 83735; 83880; 85007; 85027; 96365; 96366; G0463; J1250; J1642

== ENCOUNTER → 2020-10-21 | Outpatient (CLI) | payer OTHER ==
[~2020-10-21] VITALS: Ht 30.5 cm; Wt 88.1 kg
[2020-10-21] VITALS (9 sets, daily range): BP systolic 114–129; BP diastolic 55–74
--- NOTE | 2020-10-21 07:57 | NUR ---
CLINIC PT ARRIVED TO THE CHF CLINIC FOR SCHEDULED WEEKLY CHF EVAL AND TX, A/OX4, AMBULATORY, BREATHING IS EVEN AND UNLABORED. PORT HAS NON HEALING INDENTATION DO TO MULTIPLE PORT ACCESSES.
--- NOTE | 2020-10-21 08:03 | NUR ---
DOBUTAMINE IV STARTED @ 5MCG/KG/MIN PER MD ORDERS, VSS, WILL CONTINUE TO MONITOR.
--- NOTE | 2020-10-21 09:45 | NUR ---
PT TOLERATING DOBUTAMINE INFUSION, PORT SITE BENIGN, VSS, WILL CONTINUE TO MONITOR.
--- NOTE | 2020-10-21 11:10 | NUR ---
Discharge Instructions See e-MAR for any mediations given with this visit. Patient education given on disease process. Patient verbalized understanding. Previous labs reviewed. Patient discharged in stable condition with after care instructions and follow up appointment ON MONDAY. NOTE DOBUTAMINE IV [id number] ADMIN BY JULIETA ALVAREZ HEPARIN IVP ADMIN BY JULIETA ALVAREZ Addendum: 10/21/20 at 1127 by JULIETA YOU RN RN DC TIME 1120 NOT 1110
--- NOTE | 2020-10-21 11:10 | NUR ---
WOUND CARE PORT CLEANED WITH CLORA PREP SWABS THEN HONEY MED PLACED ON PORT INCISION DO TO SLOW HEAL DO TO MULTIPLE PORT ACCESSES. NON STICK PAD PLACED OVER AND COVERED WITH TEGADERM.
== END | disposition home or self-care (01) ==
LOC: CHF HDHVI 08:11
PROVIDERS: ATTEND Internal Medicine Cardiovascular Disease
DX: I13.2 Hypertensive heart and chronic kidney disease with heart failure and with stage 5 chronic kidney disease, or end stage renal disease (principal); E11.22 Type 2 diabetes mellitus with diabetic chronic kidney disease; N18.6 End stage renal disease; I50.23 Acute on chronic systolic (congestive) heart failure; I50.84 End stage heart failure; I25.10 Atherosclerotic heart disease of native coronary artery without angina pectoris; I48.11 Longstanding persistent atrial fibrillation; I27.21 Secondary pulmonary arterial hypertension; I25.2 Old myocardial infarction; I42.8 Other cardiomyopathies; R53.83 Other fatigue; F41.9 Anxiety disorder, unspecified; J44.9 Chronic obstructive pulmonary disease, unspecified; K21.9 Gastro-esophageal reflux disease without esophagitis; E78.5 Hyperlipidemia, unspecified; E03.9 Hypothyroidism, unspecified; F32.9 Major depressive disorder, single episode, unspecified; G89.29 Other chronic pain; E11.51 Type 2 diabetes mellitus with diabetic peripheral angiopathy without gangrene; E11.42 Type 2 diabetes mellitus with diabetic polyneuropathy; E11.319 Type 2 diabetes mellitus with unspecified diabetic retinopathy without macular edema; E78.00 Pure hypercholesterolemia, unspecified; Z79.899 Other long term (current) drug therapy; Z85.030 Personal history of malignant carcinoid tumor of large intestine; Z85.060 Personal history of malignant carcinoid tumor of small intestine; Z85.810 Personal history of malignant neoplasm of tongue; Z90.49 Acquired absence of other specified parts of digestive tract; Z85.46 Personal history of malignant neoplasm of prostate; Z79.01 Long term (current) use of anticoagulants; Z87.891 Personal history of nicotine dependence; Z95.810 Presence of automatic (implantable) cardiac defibrillator; Z95.1 Presence of aortocoronary bypass graft; Z95.5 Presence of coronary angioplasty implant and graft; Z86.73 Personal history of transient ischemic attack (TIA), and cerebral infarction without residual deficits
CPT/HCPCS: 96365; 96366; G0463; J1250; J1642

== ENCOUNTER → 2020-10-26 | Outpatient (CLI) | payer OTHER ==
[2020-10-26] VITALS (9 sets, daily range): BP systolic 104–127; BP diastolic 50–68
--- NOTE | 2020-10-26 07:50 | NUR ---
PT. TO CHF CLINIC FOR DOBUTREX INFUSION PER MD ORDER. PT WITH NOTED INCREASE IN HR UPON ARRIVAL, BUT STATES HE IS FEELING GOOD AND HAD A GOOD WEEKEND., OVER THE HOLIDAYS. ORDERS RECEIVED AND CARRIED OUT.
--- NOTE | 2020-10-26 08:09 | NUR ---
Clinic Provider Clinic Provider into see pt with new orders received and carried out. Dobutamine gtt started at {5}mcg/kg/hr per MD order.
--- NOTE | 2020-10-26 10:20 | NUR ---
PT TOLERATING DOBUTAMINE INFUSION, PORT SITE BENIGN, VSS, WILL CONTINUE TO MONITOR.
--- NOTE | 2020-10-26 11:19 | NUR ---
Discharge Instructions See e-MAR for any mediations given with this visit. Patient education given on disease process. Patient verbalized understanding. Previous labs reviewed. Patient discharged in stable condition with after care instructions and follow up appointment ON MON. NOTE DOBUTAMINE IV [id number] ADMIN BY JULIETA ALVAREZ HEPARIN IVP ADMIN BY JULIETA ALVAREZ
[2020-10-26 12:24] LABS: Calcium 8.7 mg/dL (8.5-10.1); Potassium 4.1 mmol/L (3.5-5.1)
[2020-10-26 12:28] LABS: BUN/Creatinine Ratio 15.1; Magnesium 2.7 mg/dL (1.6-2.6)
== END | disposition home or self-care (01) ==
LOC: CHF HDHVI 07:56
PROVIDERS: ATTEND Internal Medicine Cardiovascular Disease
DX: I13.2 Hypertensive heart and chronic kidney disease with heart failure and with stage 5 chronic kidney disease, or end stage renal disease (principal); E11.22 Type 2 diabetes mellitus with diabetic chronic kidney disease; N18.6 End stage renal disease; I50.23 Acute on chronic systolic (congestive) heart failure; I50.84 End stage heart failure; I25.10 Atherosclerotic heart disease of native coronary artery without angina pectoris; I48.11 Longstanding persistent atrial fibrillation; I27.21 Secondary pulmonary arterial hypertension; I25.2 Old myocardial infarction; I42.8 Other cardiomyopathies; F41.9 Anxiety disorder, unspecified; J44.9 Chronic obstructive pulmonary disease, unspecified; K21.9 Gastro-esophageal reflux disease without esophagitis; E78.5 Hyperlipidemia, unspecified; E03.9 Hypothyroidism, unspecified; F32.9 Major depressive disorder, single episode, unspecified; G89.29 Other chronic pain; E78.00 Pure hypercholesterolemia, unspecified; E11.42 Type 2 diabetes mellitus with diabetic polyneuropathy; E11.51 Type 2 diabetes mellitus with diabetic peripheral angiopathy without gangrene; E11.319 Type 2 diabetes mellitus with unspecified diabetic retinopathy without macular edema; Z79.899 Other long term (current) drug therapy; Z79.01 Long term (current) use of anticoagulants; Z85.810 Personal history of malignant neoplasm of tongue; Z85.030 Personal history of malignant carcinoid tumor of large intestine; Z85.060 Personal history of malignant carcinoid tumor of small intestine; Z85.46 Personal history of malignant neoplasm of prostate; Z87.891 Personal history of nicotine dependence; Z95.1 Presence of aortocoronary bypass graft; Z95.810 Presence of automatic (implantable) cardiac defibrillator; Z95.5 Presence of coronary angioplasty implant and graft; Z86.73 Personal history of transient ischemic attack (TIA), and cerebral infarction without residual deficits
CPT/HCPCS: 36415; 80048; 83735; 83880; 96365; 96366; G0463; J1250; J1642

== ENCOUNTER → 2020-10-28 | Outpatient (CLI) | payer OTHER ==
[~2020-10-28] VITALS: Ht 30.5 cm; Wt 88.9 kg
[2020-10-28] VITALS (11 sets, daily range): BP systolic 103–152; BP diastolic 53–83
[~2020-10-28] MED LIST changes: +CYANOCOBALAMIN (B-12) 1000 MCG/1 ML VIAL IM ONE; +CYANOCOBALAMIN (B-12) 1000 MCG/1 ML VIAL ONE
--- NOTE | 2020-10-28 07:55 | NUR ---
CLINIC PT ARRIVED TO THE CHF CLINIC FOR SCHEDULED WEEKLY CHF EVAL AND TX, A/OX4, AMBULATORY, BREATHING IS EVEN AND UNLABORED.
--- NOTE | 2020-10-28 08:06 | NUR ---
DOBUTAMINE IV STARTED @ 5 MCG/KG/MIN PER MD ORDERS, VSS, WILL CONTINUE TO MONITOR.
--- NOTE | 2020-10-28 09:45 | NUR ---
PATIENT IN CHAIR BREATHING EVEN AND UNLABORED, WILL CONTINUE MONITOR.
--- NOTE | 2020-10-28 11:08 | NUR ---
Discharge Instructions See e-MAR for any mediations given with this visit. Patient education given on disease process. Patient verbalized understanding. Previous labs reviewed. Patient discharged in stable condition with after care instructions and follow up appointment on Monday. NOTE DOBUTAMINE ADMIN BY JULIETA ALVAREZ. B12 IM R DELTOID ADMIN BY JULIETA ALVAREZ. HEPARIN ADMIN BY GISELA ALVAREZ.
== END | disposition home or self-care (01) ==
LOC: CHF HDHVI 07:57
PROVIDERS: ATTEND Internal Medicine Cardiovascular Disease
DX: I13.2 Hypertensive heart and chronic kidney disease with heart failure and with stage 5 chronic kidney disease, or end stage renal disease (principal); E11.22 Type 2 diabetes mellitus with diabetic chronic kidney disease; N18.6 End stage renal disease; I50.23 Acute on chronic systolic (congestive) heart failure; I50.84 End stage heart failure; R53.83 Other fatigue; I25.10 Atherosclerotic heart disease of native coronary artery without angina pectoris; I48.11 Longstanding persistent atrial fibrillation; I27.21 Secondary pulmonary arterial hypertension; I42.8 Other cardiomyopathies; I25.2 Old myocardial infarction; J44.9 Chronic obstructive pulmonary disease, unspecified; K21.9 Gastro-esophageal reflux disease without esophagitis; F41.9 Anxiety disorder, unspecified; E78.5 Hyperlipidemia, unspecified; E03.9 Hypothyroidism, unspecified; F32.9 Major depressive disorder, single episode, unspecified; G89.29 Other chronic pain; E78.00 Pure hypercholesterolemia, unspecified; E11.42 Type 2 diabetes mellitus with diabetic polyneuropathy; E11.51 Type 2 diabetes mellitus with diabetic peripheral angiopathy without gangrene; E11.319 Type 2 diabetes mellitus with unspecified diabetic retinopathy without macular edema; Z90.49 Acquired absence of other specified parts of digestive tract; Z79.899 Other long term (current) drug therapy; Z85.030 Personal history of malignant carcinoid tumor of large intestine; Z85.060 Personal history of malignant carcinoid tumor of small intestine; Z85.810 Personal history of malignant neoplasm of tongue; Z85.46 Personal history of malignant neoplasm of prostate; Z87.891 Personal history of nicotine dependence; Z95.1 Presence of aortocoronary bypass graft; Z95.5 Presence of coronary angioplasty implant and graft; Z79.01 Long term (current) use of anticoagulants; Z95.810 Presence of automatic (implantable) cardiac defibrillator; Z86.73 Personal history of transient ischemic attack (TIA), and cerebral infarction without residual deficits
CPT/HCPCS: 96365; 96366; 96372; G0463; J1250; J1642; J3420

== ENCOUNTER → 2020-10-30 | Outpatient (CLI) | payer OTHER ==
[2020-10-30] VITALS (9 sets, daily range): BP systolic 110–125; BP diastolic 55–72
[~2020-10-30] MED LIST changes: -CYANOCOBALAMIN (B-12) 1000 MCG/1 ML VIAL IM ONE; -CYANOCOBALAMIN (B-12) 1000 MCG/1 ML VIAL ONE
--- NOTE | 2020-10-30 08:03 | NUR ---
CLINIC PT ARRIVED TO THE CHF CLINIC FOR WEEKLY SCHEDULED CHF EVAL AND TX, A/OX4, AMBULATORY, BREATHING IS EVEN AND UNLABORED.
--- NOTE | 2020-10-30 08:10 | NUR ---
DOBUTAMINE IV STARTED @ 5MCG/KG/MIN PER MD ORDERS, VSS, WILL CONTINUE TO MONITOR.
--- NOTE | 2020-10-30 10:01 | NUR ---
PT TOLERATING DOBUTAMINE, PORT SITE BENIGN, VSS, WILL CONTINUE TO MONITOR.
--- NOTE | 2020-10-30 11:20 | NUR ---
Discharge Instructions See e-MAR for any mediations given with this visit. Patient education given on disease process. Patient verbalized understanding. Previous labs reviewed. Patient discharged in stable condition with after care instructions and follow up appointment ON MONDAY. NOTE DOBUTAMINE IV [id number] ADMIN BY JULIETA ALVAREZ HEPARIN IVP ADMIN BY JULIETA ALVAREZ
== END | disposition home or self-care (01) ==
LOC: CHF HDHVI 07:55
PROVIDERS: ATTEND Internal Medicine Cardiovascular Disease
DX: I13.2 Hypertensive heart and chronic kidney disease with heart failure and with stage 5 chronic kidney disease, or end stage renal disease (principal); E11.22 Type 2 diabetes mellitus with diabetic chronic kidney disease; N18.6 End stage renal disease; I50.23 Acute on chronic systolic (congestive) heart failure; I50.84 End stage heart failure; R53.83 Other fatigue; F41.9 Anxiety disorder, unspecified; I25.10 Atherosclerotic heart disease of native coronary artery without angina pectoris; I48.11 Longstanding persistent atrial fibrillation; I25.2 Old myocardial infarction; I42.8 Other cardiomyopathies; J44.9 Chronic obstructive pulmonary disease, unspecified; K21.9 Gastro-esophageal reflux disease without esophagitis; E78.5 Hyperlipidemia, unspecified; E03.9 Hypothyroidism, unspecified; F32.9 Major depressive disorder, single episode, unspecified; G89.29 Other chronic pain; E78.00 Pure hypercholesterolemia, unspecified; E11.42 Type 2 diabetes mellitus with diabetic polyneuropathy; E11.51 Type 2 diabetes mellitus with diabetic peripheral angiopathy without gangrene; E11.319 Type 2 diabetes mellitus with unspecified diabetic retinopathy without macular edema; M17.12 Unilateral primary osteoarthritis, left knee; E11.21 Type 2 diabetes mellitus with diabetic nephropathy; Z79.899 Other long term (current) drug therapy; Z85.030 Personal history of malignant carcinoid tumor of large intestine; Z85.060 Personal history of malignant carcinoid tumor of small intestine; Z85.46 Personal history of malignant neoplasm of prostate; Z85.810 Personal history of malignant neoplasm of tongue; Z87.891 Personal history of nicotine dependence; Z95.1 Presence of aortocoronary bypass graft; Z79.01 Long term (current) use of anticoagulants; Z95.810 Presence of automatic (implantable) cardiac defibrillator; Z90.49 Acquired absence of other specified parts of digestive tract; Z95.5 Presence of coronary angioplasty implant and graft; Z86.73 Personal history of transient ischemic attack (TIA), and cerebral infarction without residual deficits
CPT/HCPCS: 96365; 96366; G0463; J1250; J1642

== ENCOUNTER → 2020-11-02 | Outpatient (CLI) | payer OTHER ==
[~2020-11-02] VITALS: Ht 30.5 cm; Wt 89.0 kg
[2020-11-02] VITALS (9 sets, daily range): BP systolic 90–128; BP diastolic 43–69
[2020-11-02 12:02] LABS: Basophils # (auto) 0 10 ^3/uL (0-0.2); Basophils % (auto) 0.8 % (0.0-2.0); Eosinophils # (auto) 0.2 10 ^3/uL (0-0.8); Eosinophils % (auto) 4.5 % (0.0-7.0); Hemoglobin 13.3 g/dL (13.5-17.5); Lymphocytes # (auto) 1.3 10 ^3/uL (0.4-5.4); Lymphocytes % (auto) 33.1 % (10.0-50.0); Mean Corpuscular Hgb Conc. 33.3 g/dL (32.0-36.0); Mean Corpuscular Volume 96.3 fL (80.0-100.0); Monocytes # (auto) 0.6 10 ^3/uL (0-1.3); Monocytes % (auto) 14.8 % (0.0-12.0); Neutrophils # (auto) 1.9 10 ^3/uL (1.6-8.6); Neutrophils % (auto) 46.8 % (37.0-80.0); Platelet Count (auto) 154 10^3/uL (140-450); Red Blood Cells 4.16 10^6/uL (4.5-5.90); Red Cell Distribution Width 13.7 % (11.8-14.3)
[2020-11-02 12:19] LABS: BUN/Creatinine Ratio 10.3; Calcium 8.7 mg/dL (8.5-10.1); Magnesium 2.7 mg/dL (1.6-2.6); Potassium 3.7 mmol/L (3.5-5.1)
== END | disposition home or self-care (01) ==
LOC: CHF HDHVI 08:04
PROVIDERS: ATTEND Internal Medicine Cardiovascular Disease
DX: I13.2 Hypertensive heart and chronic kidney disease with heart failure and with stage 5 chronic kidney disease, or end stage renal disease (principal); E11.22 Type 2 diabetes mellitus with diabetic chronic kidney disease; I50.23 Acute on chronic systolic (congestive) heart failure; N18.6 End stage renal disease; I25.10 Atherosclerotic heart disease of native coronary artery without angina pectoris; I48.11 Longstanding persistent atrial fibrillation; I25.2 Old myocardial infarction; I42.8 Other cardiomyopathies; J44.9 Chronic obstructive pulmonary disease, unspecified; K21.9 Gastro-esophageal reflux disease without esophagitis; E11.21 Type 2 diabetes mellitus with diabetic nephropathy; E11.42 Type 2 diabetes mellitus with diabetic polyneuropathy; E11.51 Type 2 diabetes mellitus with diabetic peripheral angiopathy without gangrene; E11.319 Type 2 diabetes mellitus with unspecified diabetic retinopathy without macular edema; E78.5 Hyperlipidemia, unspecified; E78.00 Pure hypercholesterolemia, unspecified; E03.9 Hypothyroidism, unspecified; M17.12 Unilateral primary osteoarthritis, left knee; G89.29 Other chronic pain; F31.9 Bipolar disorder, unspecified; F41.9 Anxiety disorder, unspecified; R53.83 Other fatigue; Z87.891 Personal history of nicotine dependence; Z95.5 Presence of coronary angioplasty implant and graft; Z95.810 Presence of automatic (implantable) cardiac defibrillator; Z90.49 Acquired absence of other specified parts of digestive tract; Z85.060 Personal history of malignant carcinoid tumor of small intestine; Z79.899 Other long term (current) drug therapy; Z85.030 Personal history of malignant carcinoid tumor of large intestine; Z85.46 Personal history of malignant neoplasm of prostate; Z95.1 Presence of aortocoronary bypass graft; Z85.810 Personal history of malignant neoplasm of tongue; Z79.01 Long term (current) use of anticoagulants; Z86.73 Personal history of transient ischemic attack (TIA), and cerebral infarction without residual deficits
CPT/HCPCS: 36415; 80048; 83735; 83880; 85025; 96365; 96366; G0463; J1250; J1642

== ENCOUNTER → 2020-11-04 | Outpatient (CLI) | payer OTHER ==
[2020-11-04] VITALS (9 sets, daily range): BP systolic 110–133; BP diastolic 51–69
== END | disposition home or self-care (01) ==
LOC: CHF HDHVI 08:09
PROVIDERS: ATTEND Internal Medicine Cardiovascular Disease
DX: I13.2 Hypertensive heart and chronic kidney disease with heart failure and with stage 5 chronic kidney disease, or end stage renal disease (principal); E11.22 Type 2 diabetes mellitus with diabetic chronic kidney disease; I50.22 Chronic systolic (congestive) heart failure; N18.6 End stage renal disease; I25.10 Atherosclerotic heart disease of native coronary artery without angina pectoris; I48.11 Longstanding persistent atrial fibrillation; I25.2 Old myocardial infarction; I42.8 Other cardiomyopathies; J44.9 Chronic obstructive pulmonary disease, unspecified; K21.9 Gastro-esophageal reflux disease without esophagitis; E11.21 Type 2 diabetes mellitus with diabetic nephropathy; E11.42 Type 2 diabetes mellitus with diabetic polyneuropathy; E11.51 Type 2 diabetes mellitus with diabetic peripheral angiopathy without gangrene; E11.319 Type 2 diabetes mellitus with unspecified diabetic retinopathy without macular edema; E78.5 Hyperlipidemia, unspecified; E78.00 Pure hypercholesterolemia, unspecified; E03.9 Hypothyroidism, unspecified; M17.12 Unilateral primary osteoarthritis, left knee; G89.29 Other chronic pain; F41.9 Anxiety disorder, unspecified; F31.9 Bipolar disorder, unspecified; R53.83 Other fatigue; Z87.891 Personal history of nicotine dependence; Z95.5 Presence of coronary angioplasty implant and graft; Z85.810 Personal history of malignant neoplasm of tongue; Z90.49 Acquired absence of other specified parts of digestive tract; Z85.060 Personal history of malignant carcinoid tumor of small intestine; Z79.899 Other long term (current) drug therapy; Z85.030 Personal history of malignant carcinoid tumor of large intestine; Z95.810 Presence of automatic (implantable) cardiac defibrillator; Z85.46 Personal history of malignant neoplasm of prostate; Z95.1 Presence of aortocoronary bypass graft; Z79.01 Long term (current) use of anticoagulants; Z86.73 Personal history of transient ischemic attack (TIA), and cerebral infarction without residual deficits
CPT/HCPCS: 96365; 96366; G0463; J1250; J1642

== ENCOUNTER → 2020-11-06 | Outpatient (CLI) | payer OTHER ==
[2020-11-06] VITALS (9 sets, daily range): BP systolic 95–122; BP diastolic 42–68
--- NOTE | 2020-11-06 08:11 | NUR ---
CLINIC PT ARRIVED TO THE CHF CLINIC FOR WEEKLY SCHEDULED CHF EVAL AND TX. A/OX4, AMBULATORY, BREATHING IS EVEN AND UNLABORED.
--- NOTE | 2020-11-06 08:22 | NUR ---
DOBUTAMINE IV STARTED @ 5 MCG/KG/MIN PER MD ORDERS, VSS, WILL CONTINUE TO MONITOR.
--- NOTE | 2020-11-06 09:55 | NUR ---
PT TOLERATING DOBUTAMINE INFUSION, PORT SITE BENIGN, VSS, WILL CONTINUE TO MONITOR.
--- NOTE | 2020-11-06 11:22 | NUR ---
Discharge Instructions See e-MAR for any mediations given with this visit. Patient education given on disease process. Patient verbalized understanding. Previous labs reviewed. Patient discharged in stable condition with after care instructions and follow up appointment ON MONDAY. NOTE DOBUTAMINE IV [id number] ADMIN BY JULIETA ALVAREZ HEPARIN IVP ADMIN BY JULIETA ALVAREZ
== END | disposition home or self-care (01) ==
LOC: CHF HDHVI 08:16
PROVIDERS: ATTEND Internal Medicine Cardiovascular Disease
DX: I13.2 Hypertensive heart and chronic kidney disease with heart failure and with stage 5 chronic kidney disease, or end stage renal disease (principal); E11.22 Type 2 diabetes mellitus with diabetic chronic kidney disease; N18.6 End stage renal disease; I50.84 End stage heart failure; I50.22 Chronic systolic (congestive) heart failure; F41.9 Anxiety disorder, unspecified; I25.10 Atherosclerotic heart disease of native coronary artery without angina pectoris; I48.11 Longstanding persistent atrial fibrillation; I25.2 Old myocardial infarction; I27.21 Secondary pulmonary arterial hypertension; I42.8 Other cardiomyopathies; J44.9 Chronic obstructive pulmonary disease, unspecified; K21.9 Gastro-esophageal reflux disease without esophagitis; E78.5 Hyperlipidemia, unspecified; E03.9 Hypothyroidism, unspecified; G89.29 Other chronic pain; R53.83 Other fatigue; F32.9 Major depressive disorder, single episode, unspecified; E11.40 Type 2 diabetes mellitus with diabetic neuropathy, unspecified; E11.51 Type 2 diabetes mellitus with diabetic peripheral angiopathy without gangrene; E78.00 Pure hypercholesterolemia, unspecified; E11.21 Type 2 diabetes mellitus with diabetic nephropathy; E11.42 Type 2 diabetes mellitus with diabetic polyneuropathy; E11.319 Type 2 diabetes mellitus with unspecified diabetic retinopathy without macular edema; M17.12 Unilateral primary osteoarthritis, left knee; Z79.899 Other long term (current) drug therapy; Z85.030 Personal history of malignant carcinoid tumor of large intestine; Z85.060 Personal history of malignant carcinoid tumor of small intestine; Z85.810 Personal history of malignant neoplasm of tongue; Z85.46 Personal history of malignant neoplasm of prostate; Z87.891 Personal history of nicotine dependence; Z95.1 Presence of aortocoronary bypass graft; Z95.810 Presence of automatic (implantable) cardiac defibrillator; Z79.01 Long term (current) use of anticoagulants; Z90.49 Acquired absence of other specified parts of digestive tract
CPT/HCPCS: 96365; 96366; G0463; J1250; J1642

== ENCOUNTER → 2020-11-09 | Outpatient (CLI) | payer OTHER ==
[~2020-11-09] VITALS: Ht 30.5 cm; Wt 88.7 kg
[2020-11-09] VITALS (9 sets, daily range): BP systolic 104–129; BP diastolic 48–69
[~2020-11-09] MED LIST changes: +TESTOSTERONE CYPIONATE 200 MG/ML 1ML VIAL IM ONE
--- NOTE | 2020-11-09 07:56 | NUR ---
CLINIC PT ARRIVED TO THE CHF CLINIC FOR SCHEDULED WEEKLY CHF EVAL AND TX, A/OX4, AMBULATORY, BREATHING IS EVEN AND UNLABORED.
--- NOTE | 2020-11-09 08:05 | NUR ---
DOBUTAMINE IV STARTED @ 5MCG/KG/MIN PER MD ORDERS, VSS, WILL CONTINUE TO MONITOR.
--- NOTE | 2020-11-09 10:01 | NUR ---
PT TOLERATING DOBUTAMINE INFUSION, PORT SITE BENIGN, VSS, WILL CONTINUE TO MONITOR.
--- NOTE | 2020-11-09 11:15 | NUR ---
Discharge Instructions See e-MAR for any mediations given with this visit. Patient education given on disease process. Patient verbalized understanding. Previous labs reviewed. Patient discharged in stable condition with after care instructions and follow up appointment ON MON. NOTE DOBUTAMINE IV [id number] ADMIN BY JULIETA ALVAREZ HEPARIN IVP ADMIN BY JULIETA ALVAREZ
[2020-11-09 12:10] LABS: Calcium 8.5 mg/dL (8.5-10.1); Magnesium 2.7 mg/dL (1.6-2.6); Potassium 3.9 mmol/L (3.5-5.1)
[2020-11-09 12:12] LABS: BUN/Creatinine Ratio 13.3
== END | disposition home or self-care (01) ==
LOC: CHF HDHVI 08:14
PROVIDERS: ATTEND Internal Medicine Cardiovascular Disease
DX: I13.2 Hypertensive heart and chronic kidney disease with heart failure and with stage 5 chronic kidney disease, or end stage renal disease (principal); E11.22 Type 2 diabetes mellitus with diabetic chronic kidney disease; I50.23 Acute on chronic systolic (congestive) heart failure; I50.84 End stage heart failure; N18.6 End stage renal disease; F41.9 Anxiety disorder, unspecified; I25.10 Atherosclerotic heart disease of native coronary artery without angina pectoris; J44.9 Chronic obstructive pulmonary disease, unspecified; K21.9 Gastro-esophageal reflux disease without esophagitis; E78.5 Hyperlipidemia, unspecified; E03.9 Hypothyroidism, unspecified; I48.11 Longstanding persistent atrial fibrillation; I25.2 Old myocardial infarction; E11.40 Type 2 diabetes mellitus with diabetic neuropathy, unspecified; E11.42 Type 2 diabetes mellitus with diabetic polyneuropathy; E11.51 Type 2 diabetes mellitus with diabetic peripheral angiopathy without gangrene; F31.9 Bipolar disorder, unspecified; Z86.73 Personal history of transient ischemic attack (TIA), and cerebral infarction without residual deficits; Z90.49 Acquired absence of other specified parts of digestive tract; Z79.01 Long term (current) use of anticoagulants; Z79.899 Other long term (current) drug therapy; Z87.891 Personal history of nicotine dependence; Z95.1 Presence of aortocoronary bypass graft; Z95.5 Presence of coronary angioplasty implant and graft; Z95.810 Presence of automatic (implantable) cardiac defibrillator
CPT/HCPCS: 36415; 80048; 83735; 83880; 96365; 96366; G0463; J1250; J1642; J1071

== ENCOUNTER → 2020-11-11 | Outpatient (CLI) | payer OTHER ==
[~2020-11-11] VITALS: Ht 30.5 cm; Wt 88.5 kg
[2020-11-11] VITALS (9 sets, daily range): BP systolic 115–133; BP diastolic 56–77
[~2020-11-11] MED LIST changes: -TESTOSTERONE CYPIONATE 200 MG/ML 1ML VIAL IM ONE
== END | disposition home or self-care (01) ==
LOC: CHF HDHVI 09:35
PROVIDERS: ATTEND Internal Medicine Cardiovascular Disease
DX: I13.2 Hypertensive heart and chronic kidney disease with heart failure and with stage 5 chronic kidney disease, or end stage renal disease (principal); E11.22 Type 2 diabetes mellitus with diabetic chronic kidney disease; N18.6 End stage renal disease; I50.23 Acute on chronic systolic (congestive) heart failure; I50.84 End stage heart failure; R53.83 Other fatigue; I25.10 Atherosclerotic heart disease of native coronary artery without angina pectoris; I42.8 Other cardiomyopathies; F41.9 Anxiety disorder, unspecified; I48.11 Longstanding persistent atrial fibrillation; I25.2 Old myocardial infarction; I27.21 Secondary pulmonary arterial hypertension; J44.9 Chronic obstructive pulmonary disease, unspecified; K21.9 Gastro-esophageal reflux disease without esophagitis; E78.5 Hyperlipidemia, unspecified; E03.9 Hypothyroidism, unspecified; F32.9 Major depressive disorder, single episode, unspecified; G89.29 Other chronic pain; E78.00 Pure hypercholesterolemia, unspecified; E11.21 Type 2 diabetes mellitus with diabetic nephropathy; E11.319 Type 2 diabetes mellitus with unspecified diabetic retinopathy without macular edema; M17.12 Unilateral primary osteoarthritis, left knee; Z95.1 Presence of aortocoronary bypass graft; Z95.810 Presence of automatic (implantable) cardiac defibrillator; Z95.5 Presence of coronary angioplasty implant and graft; Z85.030 Personal history of malignant carcinoid tumor of large intestine; Z85.060 Personal history of malignant carcinoid tumor of small intestine; Z85.810 Personal history of malignant neoplasm of tongue; Z85.46 Personal history of malignant neoplasm of prostate; Z79.01 Long term (current) use of anticoagulants; Z86.73 Personal history of transient ischemic attack (TIA), and cerebral infarction without residual deficits; Z90.49 Acquired absence of other specified parts of digestive tract; Z79.899 Other long term (current) drug therapy; Z87.891 Personal history of nicotine dependence
CPT/HCPCS: 96365; 96366; G0463; J1250; J1642

== ENCOUNTER → 2020-11-13 | Outpatient (CLI) | payer OTHER ==
[~2020-11-13] VITALS: Ht 30.5 cm; Wt 88.2 kg
[2020-11-13] VITALS (9 sets, daily range): BP systolic 110–132; BP diastolic 54–83
== END | disposition home or self-care (01) ==
LOC: CHF HDHVI 08:11
PROVIDERS: ATTEND Internal Medicine Cardiovascular Disease
DX: I13.2 Hypertensive heart and chronic kidney disease with heart failure and with stage 5 chronic kidney disease, or end stage renal disease (principal); E11.22 Type 2 diabetes mellitus with diabetic chronic kidney disease; N18.6 End stage renal disease; I50.23 Acute on chronic systolic (congestive) heart failure; I50.84 End stage heart failure; I25.10 Atherosclerotic heart disease of native coronary artery without angina pectoris; I27.21 Secondary pulmonary arterial hypertension; I42.8 Other cardiomyopathies; I48.11 Longstanding persistent atrial fibrillation; I25.2 Old myocardial infarction; F41.9 Anxiety disorder, unspecified; J44.9 Chronic obstructive pulmonary disease, unspecified; K21.9 Gastro-esophageal reflux disease without esophagitis; E78.5 Hyperlipidemia, unspecified; E03.9 Hypothyroidism, unspecified; G89.29 Other chronic pain; R53.83 Other fatigue; E78.00 Pure hypercholesterolemia, unspecified; E11.21 Type 2 diabetes mellitus with diabetic nephropathy; E11.319 Type 2 diabetes mellitus with unspecified diabetic retinopathy without macular edema; M17.12 Unilateral primary osteoarthritis, left knee; E11.42 Type 2 diabetes mellitus with diabetic polyneuropathy; E11.51 Type 2 diabetes mellitus with diabetic peripheral angiopathy without gangrene; Z79.899 Other long term (current) drug therapy; Z85.030 Personal history of malignant carcinoid tumor of large intestine; Z85.060 Personal history of malignant carcinoid tumor of small intestine; Z85.810 Personal history of malignant neoplasm of tongue; Z85.46 Personal history of malignant neoplasm of prostate; Z90.49 Acquired absence of other specified parts of digestive tract; Z87.891 Personal history of nicotine dependence; Z95.1 Presence of aortocoronary bypass graft; Z95.810 Presence of automatic (implantable) cardiac defibrillator; Z95.5 Presence of coronary angioplasty implant and graft; Z79.01 Long term (current) use of anticoagulants; Z86.73 Personal history of transient ischemic attack (TIA), and cerebral infarction without residual deficits
CPT/HCPCS: 96365; 96366; G0463; J1250; J1642

== ENCOUNTER → 2020-11-16 | Outpatient (CLI) | payer OTHER ==
[2020-11-16] VITALS (9 sets, daily range): BP systolic 97–122; BP diastolic 49–66
--- NOTE | 2020-11-16 08:05 | NUR ---
CLINIC PT ARRIVED TO CHF CLINIC FOR SCHEDULED WEEKLY CHF EVAL, TX AND DOBUTAMINE GTT. PT A/OX4, AMBULATORY AND BREATHING EVEN AND UNLABORED.
--- NOTE | 2020-11-16 08:12 | NUR ---
Ayah Cath Insertion 20 gauge Ayah Cath inserted using sterile technique in the R upper chest with occlusive dressing over saucedo needle. Patient tolerated procedure well. See e-MAR for medications given during this visit. NOTE: IV INSERTION BY ANTONIO HIGGINS
--- NOTE | 2020-11-16 08:19 | NUR ---
Clinic Provider Clinic Provider into see pt with new orders received and carried out. Dobutamine gtt started at {5}mcg/kg/hr per MD order.
--- NOTE | 2020-11-16 09:30 | NUR ---
PT SITTING IN CHAIR COMFORTABLY, IV SITE NO S/S OF INFILTRATION, VSS AND PT TOLERATING INFUSION WELL WILL CONTINUE TO MONITOR.
--- NOTE | 2020-11-16 11:26 | NUR ---
Lorri Cath Removal Quinones needle D/C'd after Heparin flush per protocol. See e-MAR for medications given during this visit. Sterile occlusive dressing to site. Patient tolerated procedure well. Site benign post infusion. NOTE: LORRI CATH DEACCESSED BY ANTONIO TALBOT
--- NOTE | 2020-11-16 11:30 | NUR ---
Discharge Instructions See e-MAR for any mediations given with this visit. Patient education given on disease process. Patient verbalized understanding. Previous labs reviewed. Patient discharged in stable condition with after care instructions and follow up appointment ON MONDAY. NOTE: DOBUTAMINE IV AT 5 MCG/KG/MIN [id number] ADMIN BY ANTONIO HIGGINS HEPARIN IVP ADMIN BY ANTONIO TALBOT
== END | disposition home or self-care (01) ==
LOC: CHF HDHVI 08:13
PROVIDERS: ATTEND Internal Medicine Cardiovascular Disease
DX: I13.2 Hypertensive heart and chronic kidney disease with heart failure and with stage 5 chronic kidney disease, or end stage renal disease (principal); E11.22 Type 2 diabetes mellitus with diabetic chronic kidney disease; N18.6 End stage renal disease; I50.23 Acute on chronic systolic (congestive) heart failure; I50.84 End stage heart failure; R53.83 Other fatigue; F41.9 Anxiety disorder, unspecified; I25.10 Atherosclerotic heart disease of native coronary artery without angina pectoris; I27.21 Secondary pulmonary arterial hypertension; I42.8 Other cardiomyopathies; I48.11 Longstanding persistent atrial fibrillation; I25.2 Old myocardial infarction; J44.9 Chronic obstructive pulmonary disease, unspecified; K21.9 Gastro-esophageal reflux disease without esophagitis; E78.5 Hyperlipidemia, unspecified; E03.9 Hypothyroidism, unspecified; E78.00 Pure hypercholesterolemia, unspecified; E11.21 Type 2 diabetes mellitus with diabetic nephropathy; E11.42 Type 2 diabetes mellitus with diabetic polyneuropathy; E11.51 Type 2 diabetes mellitus with diabetic peripheral angiopathy without gangrene; E11.319 Type 2 diabetes mellitus with unspecified diabetic retinopathy without macular edema; M17.12 Unilateral primary osteoarthritis, left knee; F32.9 Major depressive disorder, single episode, unspecified; Z79.899 Other long term (current) drug therapy; Z79.01 Long term (current) use of anticoagulants; Z90.49 Acquired absence of other specified parts of digestive tract; Z85.030 Personal history of malignant carcinoid tumor of large intestine; Z85.060 Personal history of malignant carcinoid tumor of small intestine; Z85.810 Personal history of malignant neoplasm of tongue; Z85.46 Personal history of malignant neoplasm of prostate; Z87.891 Personal history of nicotine dependence; Z95.1 Presence of aortocoronary bypass graft; Z95.5 Presence of coronary angioplasty implant and graft; Z95.810 Presence of automatic (implantable) cardiac defibrillator; Z86.73 Personal history of transient ischemic attack (TIA), and cerebral infarction without residual deficits
CPT/HCPCS: 96365; 96366; G0463; J1250; J1642

== ENCOUNTER → 2020-11-18 | Outpatient (CLI) | payer OTHER ==
[2020-11-18] VITALS (9 sets, daily range): BP systolic 108–124; BP diastolic 56–72
--- NOTE | 2020-11-18 08:00 | NUR ---
PT ARRIVED IN CHF CLINIC FOR EVAL & TX. PT AMBULATORY, A/O X 4, RESPIRATIONS EVEN AND UNLABORED.
--- NOTE | 2020-11-18 08:08 | NUR ---
Lorri Cath Insertion 20 gauge Lorri Cath inserted using sterile technique in the RIGHT upper chest with occlusive dressing over saucedo needle. Patient tolerated procedure well. Ordered labs drawn and sent. See e-MAR for medications given during this visit. NOTE: LORRI CATH ACCESSED BY ANTONIO HIGGINS.
--- NOTE | 2020-11-18 08:13 | NUR ---
DOBUTAMINE INFUSION STARTED. VSS, WILL CONTINUE TO MONITOR.
--- NOTE | 2020-11-18 09:40 | NUR ---
PT RESTING IN CHAIR, VSS, WILL CONTINUE TO MONITOR.
--- NOTE | 2020-11-18 10:35 | NUR ---
PT SITTING IN CHAIR, RESTING & COMFORTABLE. LORRI CATH INTACT, SITE BENIGN. TOLERATING INFUSION WELL. VSS, WILL CONTINUE TO MONITOR.
--- NOTE | 2020-11-18 11:18 | NUR ---
DOBUTAMINE INFUSION COMPLETED. VSS.
--- NOTE | 2020-11-18 11:30 | NUR ---
Discharge Instructions See e-MAR for any mediations given with this visit. Patient education given on disease process. Patient verbalized understanding. Previous labs reviewed. Patient discharged in stable condition with after care instructions and follow up appointment ON 11/23/20. NOTE: DOBUTAMINE IV AT 5 MCG/KG/MIN FROM [id number] ADMIN BY ANTONIO HIGGINS. HEPARIN IVP ADMIN BY ANTONIO CELIS.
[2020-11-18 12:07] LABS: Basophils # (auto) 0 10 ^3/uL (0-0.2); Basophils % (auto) 0.6 % (0.0-2.0); Eosinophils # (auto) 0.3 10 ^3/uL (0-0.8); Eosinophils % (auto) 6.9 % (0.0-7.0); Hematocrit 38.9 % (41.0-53.0); Hemoglobin 13.2 g/dL (13.5-17.5); Lymphocytes # (auto) 1.3 10 ^3/uL (0.4-5.4); Lymphocytes % (auto) 35.6 % (10.0-50.0); Mean Corpuscular Hemoglobin 32.9 pg (28.0-32.0); Mean Corpuscular Volume 96.7 fL (80.0-100.0); Monocytes # (auto) 0.7 10 ^3/uL (0-1.3); Monocytes % (auto) 17.7 % (0.0-12.0); Neutrophils # (auto) 1.4 10 ^3/uL (1.6-8.6); Neutrophils % (auto) 39.2 % (37.0-80.0); Nucleated Red Blood Cells % 0.1 %; Platelet Count (auto) 153 10^3/uL (140-450); Red Blood Cells 4.02 10^6/uL (4.5-5.90); Red Cell Distribution Width 13.6 % (11.8-14.3); White Blood Cell 3.7 10^3/uL (4.4-10.8)
[2020-11-18 12:38] LABS: Potassium 4.3 mmol/L (3.5-5.1)
[2020-11-18 12:44] LABS: Albumin 3.8 g/dL (3.4-5.0); Bilirubin, Total 0.6 mg/dL (0.2-1.0); Total Protein 7.4 g/dL (6.4-8.2)
[2020-11-18 13:26] LABS: BUN/Creatinine Ratio 13.5
== END | disposition home or self-care (01) ==
LOC: CHF HDHVI 08:13
PROVIDERS: ATTEND Internal Medicine Cardiovascular Disease
DX: I13.2 Hypertensive heart and chronic kidney disease with heart failure and with stage 5 chronic kidney disease, or end stage renal disease (principal); E11.22 Type 2 diabetes mellitus with diabetic chronic kidney disease; I50.23 Acute on chronic systolic (congestive) heart failure; N18.6 End stage renal disease; I25.10 Atherosclerotic heart disease of native coronary artery without angina pectoris; I48.11 Longstanding persistent atrial fibrillation; I25.2 Old myocardial infarction; I42.8 Other cardiomyopathies; J44.9 Chronic obstructive pulmonary disease, unspecified; K21.9 Gastro-esophageal reflux disease without esophagitis; E11.21 Type 2 diabetes mellitus with diabetic nephropathy; E11.42 Type 2 diabetes mellitus with diabetic polyneuropathy; E11.51 Type 2 diabetes mellitus with diabetic peripheral angiopathy without gangrene; E11.319 Type 2 diabetes mellitus with unspecified diabetic retinopathy without macular edema; E78.5 Hyperlipidemia, unspecified; E78.00 Pure hypercholesterolemia, unspecified; E03.9 Hypothyroidism, unspecified; M17.12 Unilateral primary osteoarthritis, left knee; G89.29 Other chronic pain; F31.9 Bipolar disorder, unspecified; F41.9 Anxiety disorder, unspecified; R53.83 Other fatigue; Z87.891 Personal history of nicotine dependence; Z95.5 Presence of coronary angioplasty implant and graft; Z85.810 Personal history of malignant neoplasm of tongue; Z90.49 Acquired absence of other specified parts of digestive tract; Z85.060 Personal history of malignant carcinoid tumor of small intestine; Z79.899 Other long term (current) drug therapy; Z85.030 Personal history of malignant carcinoid tumor of large intestine; Z85.46 Personal history of malignant neoplasm of prostate; Z95.1 Presence of aortocoronary bypass graft; Z95.810 Presence of automatic (implantable) cardiac defibrillator; Z79.01 Long term (current) use of anticoagulants; Z86.73 Personal history of transient ischemic attack (TIA), and cerebral infarction without residual deficits
CPT/HCPCS: 36415; 80053; 83880; 85025; 96365; 96366; G0463; J1250; J1642

== ENCOUNTER → 2020-11-23 | Outpatient (CLI) | payer OTHER ==
[~2020-11-23] VITALS: Ht 30.5 cm; Wt 87.8 kg
[2020-11-23] VITALS (9 sets, daily range): BP systolic 92–116; BP diastolic 44–74
== END | disposition home or self-care (01) ==
LOC: CHF HDHVI 08:17
PROVIDERS: ATTEND Internal Medicine Cardiovascular Disease
DX: I13.2 Hypertensive heart and chronic kidney disease with heart failure and with stage 5 chronic kidney disease, or end stage renal disease (principal); E11.22 Type 2 diabetes mellitus with diabetic chronic kidney disease; N18.6 End stage renal disease; I50.23 Acute on chronic systolic (congestive) heart failure; I50.84 End stage heart failure; I25.10 Atherosclerotic heart disease of native coronary artery without angina pectoris; I42.8 Other cardiomyopathies; I25.2 Old myocardial infarction; I27.21 Secondary pulmonary arterial hypertension; I48.11 Longstanding persistent atrial fibrillation; F41.9 Anxiety disorder, unspecified; F32.9 Major depressive disorder, single episode, unspecified; J44.9 Chronic obstructive pulmonary disease, unspecified; K21.9 Gastro-esophageal reflux disease without esophagitis; E78.5 Hyperlipidemia, unspecified; E03.9 Hypothyroidism, unspecified; G89.29 Other chronic pain; R53.83 Other fatigue; E78.00 Pure hypercholesterolemia, unspecified; E11.21 Type 2 diabetes mellitus with diabetic nephropathy; E11.42 Type 2 diabetes mellitus with diabetic polyneuropathy; E11.51 Type 2 diabetes mellitus with diabetic peripheral angiopathy without gangrene; E11.319 Type 2 diabetes mellitus with unspecified diabetic retinopathy without macular edema; Z79.899 Other long term (current) drug therapy; Z85.030 Personal history of malignant carcinoid tumor of large intestine; Z90.49 Acquired absence of other specified parts of digestive tract; Z85.060 Personal history of malignant carcinoid tumor of small intestine; Z85.810 Personal history of malignant neoplasm of tongue; Z85.46 Personal history of malignant neoplasm of prostate; Z87.891 Personal history of nicotine dependence; Z95.1 Presence of aortocoronary bypass graft; Z95.5 Presence of coronary angioplasty implant and graft; Z95.810 Presence of automatic (implantable) cardiac defibrillator; Z79.01 Long term (current) use of anticoagulants; Z86.73 Personal history of transient ischemic attack (TIA), and cerebral infarction without residual deficits
CPT/HCPCS: 96365; 96366; G0463; J1250; J1642

== ENCOUNTER → 2020-11-25 | Outpatient (CLI) | payer OTHER ==
[~2020-11-25] VITALS: Ht 30.5 cm; Wt 0.5 kg
[2020-11-25] VITALS (9 sets, daily range): BP systolic 92–118; BP diastolic 46–72
[~2020-11-25] MED LIST changes: +KETOROLAC TROMETH 30 MG/ML 1ML VIAL IV ONE; +KETOROLAC TROMETH 60MG/2ML VIAL IM ONE; +KETOROLAC TROMETH 60MG/2ML VIAL ONE
[2020-11-25 12:18] LABS: BUN/Creatinine Ratio 15.2; Calcium 8.8 mg/dL (8.5-10.1); Potassium 4.3 mmol/L (3.5-5.1)
[2020-11-25 12:26] LABS: Basophils # (auto) 0 10 ^3/uL (0-0.2); Basophils % (auto) 0.4 % (0.0-2.0); Eosinophils # (auto) 0.1 10 ^3/uL (0-0.8); Eosinophils % (auto) 1.1 % (0.0-7.0); Hematocrit 37.2 % (41.0-53.0); Hemoglobin 12.9 g/dL (13.5-17.5); Lymphocytes # (auto) 0.6 10 ^3/uL (0.4-5.4); Lymphocytes % (auto) 12.8 % (10.0-50.0); Mean Corpuscular Hemoglobin 33.1 pg (28.0-32.0); Mean Corpuscular Hgb Conc. 34.6 g/dL (32.0-36.0); Mean Corpuscular Volume 95.8 fL (80.0-100.0); Monocytes # (auto) 0.8 10 ^3/uL (0-1.3); Monocytes % (auto) 16.5 % (0.0-12.0); Neutrophils # (auto) 3.5 10 ^3/uL (1.6-8.6); Neutrophils % (auto) 69.2 % (37.0-80.0); Nucleated Red Blood Cells % 0.1 %; Platelet Count (auto) 139 10^3/uL (140-450); Red Blood Cells 3.88 10^6/uL (4.5-5.90); Red Cell Distribution Width 13.4 % (11.8-14.3)
== END | disposition home or self-care (01) ==
LOC: CHF HDHVI 08:13
PROVIDERS: ATTEND Internal Medicine Cardiovascular Disease
DX: I13.2 Hypertensive heart and chronic kidney disease with heart failure and with stage 5 chronic kidney disease, or end stage renal disease (principal); E11.22 Type 2 diabetes mellitus with diabetic chronic kidney disease; N18.6 End stage renal disease; I50.23 Acute on chronic systolic (congestive) heart failure; I50.84 End stage heart failure; R53.83 Other fatigue; I42.8 Other cardiomyopathies; F41.9 Anxiety disorder, unspecified; I25.10 Atherosclerotic heart disease of native coronary artery without angina pectoris; I48.11 Longstanding persistent atrial fibrillation; I25.2 Old myocardial infarction; I27.21 Secondary pulmonary arterial hypertension; J44.9 Chronic obstructive pulmonary disease, unspecified; K21.9 Gastro-esophageal reflux disease without esophagitis; G89.29 Other chronic pain; E78.5 Hyperlipidemia, unspecified; E03.9 Hypothyroidism, unspecified; F32.9 Major depressive disorder, single episode, unspecified; E78.00 Pure hypercholesterolemia, unspecified; E11.42 Type 2 diabetes mellitus with diabetic polyneuropathy; E11.21 Type 2 diabetes mellitus with diabetic nephropathy; M17.12 Unilateral primary osteoarthritis, left knee; E11.51 Type 2 diabetes mellitus with diabetic peripheral angiopathy without gangrene; E11.319 Type 2 diabetes mellitus with unspecified diabetic retinopathy without macular edema; Z79.899 Other long term (current) drug therapy; Z79.01 Long term (current) use of anticoagulants; Z85.030 Personal history of malignant carcinoid tumor of large intestine; Z85.060 Personal history of malignant carcinoid tumor of small intestine; Z85.810 Personal history of malignant neoplasm of tongue; Z85.46 Personal history of malignant neoplasm of prostate; Z95.1 Presence of aortocoronary bypass graft; Z95.810 Presence of automatic (implantable) cardiac defibrillator; Z87.891 Personal history of nicotine dependence; Z90.49 Acquired absence of other specified parts of digestive tract
CPT/HCPCS: 36415; 80048; 82306; 83880; 85025; 96365; 96366; 96372; 96375; G0463; J1250; J1642; J1885; 96374

== ENCOUNTER → 2020-11-26 | Outpatient (CLI) | payer OTHER ==
[~2020-11-26] MED LIST changes: -DOBUTamine 1000MCG/ML 250 ML IV ONE; -KETOROLAC TROMETH 30 MG/ML 1ML VIAL IV ONE; -KETOROLAC TROMETH 60MG/2ML VIAL IM ONE; -KETOROLAC TROMETH 60MG/2ML VIAL ONE; +cefTRIAXone 1GM/50ML D5W 50 ML IV ONE; +diphenhdrAMINE HCL 50 MG/1 ML VL IV ONE; +diphenhdrAMINE HCL 50 MG/1 ML VL ONE
[2020-11-26 09:07] VITALS: BP 124/67
[2020-11-26 10:25] LABS: Hematocrit 37.3 % (41.0-53.0); Hemoglobin 12.9 g/dL (13.5-17.5); Mean Corpuscular Hemoglobin 33.3 pg (28.0-32.0); Mean Corpuscular Hgb Conc. 34.8 g/dL (32.0-36.0); Mean Corpuscular Volume 95.8 fL (80.0-100.0); Platelet Count (auto) 136 10^3/uL (140-450); Red Blood Cells 3.89 10^6/uL (4.5-5.90); Red Cell Distribution Width 13.5 % (11.8-14.3); White Blood Cell 6.2 10^3/uL (4.4-10.8)
[2020-11-26 10:32] LABS: Basophils % (manual) 0 (0.0-2.0); Blast Cells 0; Eosinophils % (manual) 0 (0-7); Metamyelocytes % 0; Myelocytes % 0; Promyelocytes % 0; Reactive Lymphocytes 0
[2020-11-26 10:56] VITALS: BP 112/66
[2020-11-26 13:49] LABS: Band Neutrophils % (manual) 2; Lymphocytes % (manual) 11 (10.0-50.0); Monocytes % (manual) 15 (0-12)
== END | disposition home or self-care (01) ==
LOC: CHF HDHVI 09:09
PROVIDERS: ATTEND Internal Medicine Cardiovascular Disease
DX: I13.2 Hypertensive heart and chronic kidney disease with heart failure and with stage 5 chronic kidney disease, or end stage renal disease (principal); E11.22 Type 2 diabetes mellitus with diabetic chronic kidney disease; N18.6 End stage renal disease; I50.23 Acute on chronic systolic (congestive) heart failure; I50.84 End stage heart failure; D64.9 Anemia, unspecified; I25.10 Atherosclerotic heart disease of native coronary artery without angina pectoris; I48.11 Longstanding persistent atrial fibrillation; I27.21 Secondary pulmonary arterial hypertension; I25.2 Old myocardial infarction; I42.8 Other cardiomyopathies; F41.9 Anxiety disorder, unspecified; J44.9 Chronic obstructive pulmonary disease, unspecified; K21.9 Gastro-esophageal reflux disease without esophagitis; E78.5 Hyperlipidemia, unspecified; E03.9 Hypothyroidism, unspecified; F32.9 Major depressive disorder, single episode, unspecified; G89.29 Other chronic pain; E78.00 Pure hypercholesterolemia, unspecified; E11.21 Type 2 diabetes mellitus with diabetic nephropathy; E11.42 Type 2 diabetes mellitus with diabetic polyneuropathy; E11.51 Type 2 diabetes mellitus with diabetic peripheral angiopathy without gangrene; E11.319 Type 2 diabetes mellitus with unspecified diabetic retinopathy without macular edema; M17.12 Unilateral primary osteoarthritis, left knee; Z79.899 Other long term (current) drug therapy; Z85.030 Personal history of malignant carcinoid tumor of large intestine; Z90.49 Acquired absence of other specified parts of digestive tract; Z85.060 Personal history of malignant carcinoid tumor of small intestine; Z85.810 Personal history of malignant neoplasm of tongue; Z85.46 Personal history of malignant neoplasm of prostate; Z79.01 Long term (current) use of anticoagulants
CPT/HCPCS: 36415; 85007; 85027; 96365; 96375; G0463; J0696; J1200; 96374

== ENCOUNTER → 2020-11-30 | Outpatient (CLI) | payer OTHER ==
[~2020-11-30] VITALS: Ht 30.5 cm; Wt 87.7 kg
[2020-11-30] VITALS (9 sets, daily range): BP systolic 95–126; BP diastolic 44–76
[~2020-11-30] MED LIST changes: +DOBUTamine 1000MCG/ML 250 ML IV ONE; +VANCOMYCIN 1GM/250ML 250 ML IV ONE; -cefTRIAXone 1GM/50ML D5W 50 ML IV ONE; +cefTRIAXone SOD 1,000 MG VL ONE; -diphenhdrAMINE HCL 50 MG/1 ML VL IV ONE; -diphenhdrAMINE HCL 50 MG/1 ML VL ONE
== END | disposition home or self-care (01) ==
LOC: CHF HDHVI 08:05
PROVIDERS: ATTEND Internal Medicine Cardiovascular Disease
DX: I13.2 Hypertensive heart and chronic kidney disease with heart failure and with stage 5 chronic kidney disease, or end stage renal disease (principal); E11.22 Type 2 diabetes mellitus with diabetic chronic kidney disease; N18.6 End stage renal disease; I50.23 Acute on chronic systolic (congestive) heart failure; I50.84 End stage heart failure; R53.83 Other fatigue; I42.8 Other cardiomyopathies; I25.10 Atherosclerotic heart disease of native coronary artery without angina pectoris; I25.2 Old myocardial infarction; I48.19 Other persistent atrial fibrillation; J44.9 Chronic obstructive pulmonary disease, unspecified; K21.9 Gastro-esophageal reflux disease without esophagitis; E78.5 Hyperlipidemia, unspecified; E03.9 Hypothyroidism, unspecified; F41.9 Anxiety disorder, unspecified; F32.9 Major depressive disorder, single episode, unspecified; E78.00 Pure hypercholesterolemia, unspecified; E11.21 Type 2 diabetes mellitus with diabetic nephropathy; E11.42 Type 2 diabetes mellitus with diabetic polyneuropathy; E11.319 Type 2 diabetes mellitus with unspecified diabetic retinopathy without macular edema; M17.12 Unilateral primary osteoarthritis, left knee; E11.51 Type 2 diabetes mellitus with diabetic peripheral angiopathy without gangrene; Z85.030 Personal history of malignant carcinoid tumor of large intestine; Z79.01 Long term (current) use of anticoagulants; Z90.49 Acquired absence of other specified parts of digestive tract; Z85.060 Personal history of malignant carcinoid tumor of small intestine; Z85.810 Personal history of malignant neoplasm of tongue; Z85.46 Personal history of malignant neoplasm of prostate; Z87.891 Personal history of nicotine dependence; Z95.1 Presence of aortocoronary bypass graft; Z95.810 Presence of automatic (implantable) cardiac defibrillator; Z79.899 Other long term (current) drug therapy; Z95.5 Presence of coronary angioplasty implant and graft; Z86.73 Personal history of transient ischemic attack (TIA), and cerebral infarction without residual deficits
CPT/HCPCS: 96365; 96366; G0463; J1250; J1642; J0696

== ENCOUNTER → 2020-12-02 | Outpatient (CLI) | payer OTHER ==
[~2020-12-02] VITALS: Ht 30.5 cm; Wt 0.5 kg
[~2020-12-02] MED LIST changes: -DOBUTamine 1000MCG/ML 250 ML IV ONE; +MULTIPLE VIT 10 ML IV ONE; +MVI in SODIUM CHLORIDE 0.9% 500 ML IVB ONE; -VANCOMYCIN 1GM/250ML 250 ML IV ONE; -cefTRIAXone SOD 1,000 MG VL ONE
[2020-12-02 08:04] VITALS: BP 113/63
[2020-12-02 08:46] LABS: Basophils # (auto) 0 10 ^3/uL (0-0.2); Basophils % (auto) 0.2 % (0.0-2.0); Eosinophils # (auto) 0.1 10 ^3/uL (0-0.8); Eosinophils % (auto) 0.5 % (0.0-7.0); Hematocrit 36.5 % (41.0-53.0); Hemoglobin 12.2 g/dL (13.5-17.5); Lymphocytes % (auto) 6.9 % (10.0-50.0); Mean Corpuscular Hemoglobin 32.1 pg (28.0-32.0); Mean Corpuscular Hgb Conc. 33.4 g/dL (32.0-36.0); Mean Corpuscular Volume 96.2 fL (80.0-100.0); Monocytes # (auto) 1.5 10 ^3/uL (0-1.3); Monocytes % (auto) 10.1 % (0.0-12.0); Neutrophils # (auto) 11.9 10 ^3/uL (1.6-8.6); Neutrophils % (auto) 82.3 % (37.0-80.0); Red Blood Cells 3.79 10^6/uL (4.5-5.90); Red Cell Distribution Width 12.9 % (11.8-14.3); White Blood Cell 14.5 10^3/uL (4.4-10.8)
[2020-12-02 08:59] LABS: BUN/Creatinine Ratio 10.7; Calcium 8.8 mg/dL (8.5-10.1); Magnesium 2.2 mg/dL (1.6-2.6)
[2020-12-02 11:00] VITALS: BP 124/76
== END | disposition home or self-care (01) ==
LOC: CHF HDHVI 08:17
PROVIDERS: ATTEND Internal Medicine Cardiovascular Disease
DX: I13.2 Hypertensive heart and chronic kidney disease with heart failure and with stage 5 chronic kidney disease, or end stage renal disease (principal); E11.22 Type 2 diabetes mellitus with diabetic chronic kidney disease; N18.6 End stage renal disease; I50.23 Acute on chronic systolic (congestive) heart failure; I50.84 End stage heart failure; R19.7 Diarrhea, unspecified; I48.11 Longstanding persistent atrial fibrillation; I25.10 Atherosclerotic heart disease of native coronary artery without angina pectoris; I25.2 Old myocardial infarction; I27.21 Secondary pulmonary arterial hypertension; I42.8 Other cardiomyopathies; J44.9 Chronic obstructive pulmonary disease, unspecified; K21.9 Gastro-esophageal reflux disease without esophagitis; E78.5 Hyperlipidemia, unspecified; F41.9 Anxiety disorder, unspecified; E03.9 Hypothyroidism, unspecified; F32.9 Major depressive disorder, single episode, unspecified; G89.29 Other chronic pain; E78.00 Pure hypercholesterolemia, unspecified; E11.21 Type 2 diabetes mellitus with diabetic nephropathy; E11.42 Type 2 diabetes mellitus with diabetic polyneuropathy; E11.51 Type 2 diabetes mellitus with diabetic peripheral angiopathy without gangrene; E11.319 Type 2 diabetes mellitus with unspecified diabetic retinopathy without macular edema; M17.12 Unilateral primary osteoarthritis, left knee; Z79.899 Other long term (current) drug therapy; Z85.030 Personal history of malignant carcinoid tumor of large intestine; Z85.060 Personal history of malignant carcinoid tumor of small intestine; Z86.73 Personal history of transient ischemic attack (TIA), and cerebral infarction without residual deficits; Z90.49 Acquired absence of other specified parts of digestive tract; Z85.46 Personal history of malignant neoplasm of prostate; Z85.810 Personal history of malignant neoplasm of tongue; Z87.891 Personal history of nicotine dependence; Z95.1 Presence of aortocoronary bypass graft; Z95.5 Presence of coronary angioplasty implant and graft; Z79.01 Long term (current) use of anticoagulants
CPT/HCPCS: 36415; 80048; 83735; 83880; 85025; 96365; 96366; G0463; J1642; J3411; J3475

== ENCOUNTER → 2020-12-04 | Outpatient (CLI) | payer OTHER ==
[2020-12-04] VITALS (9 sets, daily range): BP systolic 105–130; BP diastolic 51–67
[~2020-12-04] MED LIST changes: +DOBUTamine 1000MCG/ML 250 ML IV ONE; -MULTIPLE VIT 10 ML IV ONE; -MVI in SODIUM CHLORIDE 0.9% 500 ML IVB ONE
== END | disposition home or self-care (01) ==
LOC: CHF HDHVI 08:28
PROVIDERS: ATTEND Internal Medicine Cardiovascular Disease
DX: I13.2 Hypertensive heart and chronic kidney disease with heart failure and with stage 5 chronic kidney disease, or end stage renal disease (principal); E11.22 Type 2 diabetes mellitus with diabetic chronic kidney disease; N18.6 End stage renal disease; I50.23 Acute on chronic systolic (congestive) heart failure; I50.84 End stage heart failure; R53.83 Other fatigue; I42.8 Other cardiomyopathies; I25.10 Atherosclerotic heart disease of native coronary artery without angina pectoris; I27.21 Secondary pulmonary arterial hypertension; I48.11 Longstanding persistent atrial fibrillation; I25.2 Old myocardial infarction; J44.9 Chronic obstructive pulmonary disease, unspecified; K21.9 Gastro-esophageal reflux disease without esophagitis; E78.5 Hyperlipidemia, unspecified; E03.9 Hypothyroidism, unspecified; F41.9 Anxiety disorder, unspecified; F32.9 Major depressive disorder, single episode, unspecified; G89.29 Other chronic pain; E78.00 Pure hypercholesterolemia, unspecified; E11.21 Type 2 diabetes mellitus with diabetic nephropathy; E11.51 Type 2 diabetes mellitus with diabetic peripheral angiopathy without gangrene; E11.319 Type 2 diabetes mellitus with unspecified diabetic retinopathy without macular edema; E11.42 Type 2 diabetes mellitus with diabetic polyneuropathy; M17.12 Unilateral primary osteoarthritis, left knee; Z95.810 Presence of automatic (implantable) cardiac defibrillator; Z79.899 Other long term (current) drug therapy; Z85.030 Personal history of malignant carcinoid tumor of large intestine; Z90.49 Acquired absence of other specified parts of digestive tract; Z85.060 Personal history of malignant carcinoid tumor of small intestine; Z85.46 Personal history of malignant neoplasm of prostate; Z85.810 Personal history of malignant neoplasm of tongue; Z87.891 Personal history of nicotine dependence; Z79.01 Long term (current) use of anticoagulants; Z95.1 Presence of aortocoronary bypass graft; Z95.5 Presence of coronary angioplasty implant and graft; Z86.73 Personal history of transient ischemic attack (TIA), and cerebral infarction without residual deficits
CPT/HCPCS: 96365; 96366; G0463; J1250; J1642

== ENCOUNTER → 2020-12-07 | Outpatient (CLI) | payer OTHER ==
[2020-12-07] VITALS (9 sets, daily range): BP systolic 87–119; BP diastolic 41–60
[~2020-12-07] VITALS: Ht 30.5 cm; Wt 86.7 kg
== END | disposition home or self-care (01) ==
LOC: CHF HDHVI 08:12
PROVIDERS: ATTEND Internal Medicine Cardiovascular Disease
DX: I13.2 Hypertensive heart and chronic kidney disease with heart failure and with stage 5 chronic kidney disease, or end stage renal disease (principal); E11.22 Type 2 diabetes mellitus with diabetic chronic kidney disease; I50.23 Acute on chronic systolic (congestive) heart failure; I50.84 End stage heart failure; N18.6 End stage renal disease; I42.9 Cardiomyopathy, unspecified; F41.9 Anxiety disorder, unspecified; I25.10 Atherosclerotic heart disease of native coronary artery without angina pectoris; J44.9 Chronic obstructive pulmonary disease, unspecified; K21.9 Gastro-esophageal reflux disease without esophagitis; E78.5 Hyperlipidemia, unspecified; E03.9 Hypothyroidism, unspecified; I48.19 Other persistent atrial fibrillation; I25.2 Old myocardial infarction; E11.42 Type 2 diabetes mellitus with diabetic polyneuropathy; E11.51 Type 2 diabetes mellitus with diabetic peripheral angiopathy without gangrene; Z90.49 Acquired absence of other specified parts of digestive tract; Z79.899 Other long term (current) drug therapy; Z87.891 Personal history of nicotine dependence; Z95.1 Presence of aortocoronary bypass graft; Z86.73 Personal history of transient ischemic attack (TIA), and cerebral infarction without residual deficits; E78.00 Pure hypercholesterolemia, unspecified; Z79.01 Long term (current) use of anticoagulants
CPT/HCPCS: 36415; 82565; 84132; 84520; 96365; 96366; G0463; J1250; J1642

== ENCOUNTER → 2020-12-09 | Outpatient (CLI) | payer OTHER ==
[2020-12-09] VITALS (9 sets, daily range): BP systolic 94–119; BP diastolic 43–64
[~2020-12-09] MED LIST changes: +CYANOCOBALAMIN (B-12) 1000 MCG/1 ML VIAL IM ONE; +CYANOCOBALAMIN (B-12) 1000 MCG/1 ML VIAL ONE; +TESTOSTERONE CYPIONATE 200 MG/ML 1ML VIAL IM ONE
== END | disposition home or self-care (01) ==
LOC: CHF HDHVI 08:04
PROVIDERS: ATTEND Internal Medicine Cardiovascular Disease
DX: I13.2 Hypertensive heart and chronic kidney disease with heart failure and with stage 5 chronic kidney disease, or end stage renal disease (principal); E11.22 Type 2 diabetes mellitus with diabetic chronic kidney disease; N18.6 End stage renal disease; I50.23 Acute on chronic systolic (congestive) heart failure; I50.84 End stage heart failure; R53.83 Other fatigue; E29.1 Testicular hypofunction; I25.10 Atherosclerotic heart disease of native coronary artery without angina pectoris; I42.8 Other cardiomyopathies; I48.19 Other persistent atrial fibrillation; I27.21 Secondary pulmonary arterial hypertension; I25.2 Old myocardial infarction; J44.9 Chronic obstructive pulmonary disease, unspecified; K21.9 Gastro-esophageal reflux disease without esophagitis; F41.9 Anxiety disorder, unspecified; F32.9 Major depressive disorder, single episode, unspecified; E03.9 Hypothyroidism, unspecified; E11.42 Type 2 diabetes mellitus with diabetic polyneuropathy; E11.51 Type 2 diabetes mellitus with diabetic peripheral angiopathy without gangrene; G89.29 Other chronic pain; E11.21 Type 2 diabetes mellitus with diabetic nephropathy; E11.319 Type 2 diabetes mellitus with unspecified diabetic retinopathy without macular edema; M17.12 Unilateral primary osteoarthritis, left knee; Z85.030 Personal history of malignant carcinoid tumor of large intestine; Z79.899 Other long term (current) drug therapy; Z87.891 Personal history of nicotine dependence; Z95.1 Presence of aortocoronary bypass graft; Z79.01 Long term (current) use of anticoagulants; Z86.73 Personal history of transient ischemic attack (TIA), and cerebral infarction without residual deficits; Z85.060 Personal history of malignant carcinoid tumor of small intestine; Z85.810 Personal history of malignant neoplasm of tongue; Z85.46 Personal history of malignant neoplasm of prostate; Z95.810 Presence of automatic (implantable) cardiac defibrillator; Z95.5 Presence of coronary angioplasty implant and graft
CPT/HCPCS: 96365; 96366; 96372; G0463; J1071; J1250; J1642; J3420

== ENCOUNTER → 2020-12-11 | Outpatient (CLI) | payer OTHER ==
[~2020-12-11] VITALS: Ht 30.5 cm; Wt 86.8 kg
[2020-12-11] VITALS (8 sets, daily range): BP systolic 114–131; BP diastolic 55–70
[~2020-12-11] MED LIST changes: +CATHFLO ACTIVASE (ALTEPLASE) 2 MG VIAL IV ONE; -CYANOCOBALAMIN (B-12) 1000 MCG/1 ML VIAL IM ONE; -CYANOCOBALAMIN (B-12) 1000 MCG/1 ML VIAL ONE; +STERILE WATER 10 ML ONE; -TESTOSTERONE CYPIONATE 200 MG/ML 1ML VIAL IM ONE
== END | disposition home or self-care (01) ==
LOC: CHF HDHVI 08:06
PROVIDERS: ATTEND Internal Medicine Cardiovascular Disease
DX: I13.2 Hypertensive heart and chronic kidney disease with heart failure and with stage 5 chronic kidney disease, or end stage renal disease (principal); E11.22 Type 2 diabetes mellitus with diabetic chronic kidney disease; N18.6 End stage renal disease; I50.23 Acute on chronic systolic (congestive) heart failure; I50.84 End stage heart failure; I25.2 Old myocardial infarction; I42.8 Other cardiomyopathies; I48.19 Other persistent atrial fibrillation; R53.83 Other fatigue; F41.9 Anxiety disorder, unspecified; I25.10 Atherosclerotic heart disease of native coronary artery without angina pectoris; I27.21 Secondary pulmonary arterial hypertension; J44.9 Chronic obstructive pulmonary disease, unspecified; K21.9 Gastro-esophageal reflux disease without esophagitis; E78.5 Hyperlipidemia, unspecified; E03.9 Hypothyroidism, unspecified; F32.9 Major depressive disorder, single episode, unspecified; E78.00 Pure hypercholesterolemia, unspecified; E11.21 Type 2 diabetes mellitus with diabetic nephropathy; E11.42 Type 2 diabetes mellitus with diabetic polyneuropathy; E11.319 Type 2 diabetes mellitus with unspecified diabetic retinopathy without macular edema; M19.90 Unspecified osteoarthritis, unspecified site; E11.51 Type 2 diabetes mellitus with diabetic peripheral angiopathy without gangrene; Z85.030 Personal history of malignant carcinoid tumor of large intestine; Z85.060 Personal history of malignant carcinoid tumor of small intestine; Z85.46 Personal history of malignant neoplasm of prostate; Z85.810 Personal history of malignant neoplasm of tongue; Z90.49 Acquired absence of other specified parts of digestive tract; Z87.891 Personal history of nicotine dependence; Z79.01 Long term (current) use of anticoagulants; Z95.1 Presence of aortocoronary bypass graft; Z95.810 Presence of automatic (implantable) cardiac defibrillator; Z79.899 Other long term (current) drug therapy; Z95.5 Presence of coronary angioplasty implant and graft; Z86.73 Personal history of transient ischemic attack (TIA), and cerebral infarction without residual deficits
CPT/HCPCS: 36593; 96365; 96366; G0463; J1250; J1642; J2997; 96375

== ENCOUNTER → 2020-12-14 | Outpatient (CLI) | payer OTHER ==
[~2020-12-14] VITALS: Ht 30.5 cm; Wt 87.6 kg
[2020-12-14] VITALS (9 sets, daily range): BP systolic 106–123; BP diastolic 51–72
[~2020-12-14] MED LIST changes: -CATHFLO ACTIVASE (ALTEPLASE) 2 MG VIAL IV ONE; -STERILE WATER 10 ML ONE
[2020-12-14 11:42] LABS: Basophils # (auto) 0 10 ^3/uL (0-0.2); Basophils % (auto) 0.7 % (0.0-2.0); Eosinophils # (auto) 0.1 10 ^3/uL (0-0.8); Eosinophils % (auto) 2.8 % (0.0-7.0); Hematocrit 37.4 % (41.0-53.0); Hemoglobin 12.7 g/dL (13.5-17.5); Lymphocytes # (auto) 1.3 10 ^3/uL (0.4-5.4); Lymphocytes % (auto) 29.9 % (10.0-50.0); Mean Corpuscular Hemoglobin 32.4 pg (28.0-32.0); Mean Corpuscular Hgb Conc. 33.8 g/dL (32.0-36.0); Mean Corpuscular Volume 95.8 fL (80.0-100.0); Monocytes # (auto) 0.5 10 ^3/uL (0-1.3); Monocytes % (auto) 11.7 % (0.0-12.0); Neutrophils # (auto) 2.3 10 ^3/uL (1.6-8.6); Neutrophils % (auto) 54.9 % (37.0-80.0); Red Blood Cells 3.91 10^6/uL (4.5-5.90); Red Cell Distribution Width 13.4 % (11.8-14.3); White Blood Cell 4.2 10^3/uL (4.4-10.8)
[2020-12-14 11:58] LABS: Potassium 4.2 mmol/L (3.5-5.1)
[2020-12-14 12:03] LABS: BUN/Creatinine Ratio 8.4; Calcium 8.5 mg/dL (8.5-10.1)
== END | disposition home or self-care (01) ==
LOC: CHF HDHVI 08:38
PROVIDERS: ATTEND Internal Medicine Cardiovascular Disease
DX: I13.2 Hypertensive heart and chronic kidney disease with heart failure and with stage 5 chronic kidney disease, or end stage renal disease (principal); E11.22 Type 2 diabetes mellitus with diabetic chronic kidney disease; N18.6 End stage renal disease; I50.23 Acute on chronic systolic (congestive) heart failure; I50.84 End stage heart failure; R53.83 Other fatigue; I48.91 Unspecified atrial fibrillation; I25.10 Atherosclerotic heart disease of native coronary artery without angina pectoris; I25.2 Old myocardial infarction; I42.8 Other cardiomyopathies; I48.19 Other persistent atrial fibrillation; I27.21 Secondary pulmonary arterial hypertension; J44.9 Chronic obstructive pulmonary disease, unspecified; K21.9 Gastro-esophageal reflux disease without esophagitis; F41.9 Anxiety disorder, unspecified; E03.9 Hypothyroidism, unspecified; F32.9 Major depressive disorder, single episode, unspecified; E11.21 Type 2 diabetes mellitus with diabetic nephropathy; E11.42 Type 2 diabetes mellitus with diabetic polyneuropathy; E11.319 Type 2 diabetes mellitus with unspecified diabetic retinopathy without macular edema; M17.12 Unilateral primary osteoarthritis, left knee; E78.00 Pure hypercholesterolemia, unspecified; E78.5 Hyperlipidemia, unspecified; Z85.030 Personal history of malignant carcinoid tumor of large intestine; Z85.060 Personal history of malignant carcinoid tumor of small intestine; Z85.810 Personal history of malignant neoplasm of tongue; Z79.01 Long term (current) use of anticoagulants; Z85.46 Personal history of malignant neoplasm of prostate; Z87.891 Personal history of nicotine dependence; Z95.1 Presence of aortocoronary bypass graft; Z79.899 Other long term (current) drug therapy; Z95.810 Presence of automatic (implantable) cardiac defibrillator; Z90.49 Acquired absence of other specified parts of digestive tract; Z95.5 Presence of coronary angioplasty implant and graft; Z86.73 Personal history of transient ischemic attack (TIA), and cerebral infarction without residual deficits
CPT/HCPCS: 36415; 80048; 83880; 85025; 96365; 96366; G0463; J1250; J1642

== ENCOUNTER → 2020-12-16 | Outpatient (CLI) | payer OTHER ==
[2020-12-16] VITALS (9 sets, daily range): BP systolic 100–121; BP diastolic 48–70
== END | disposition home or self-care (01) ==
LOC: CHF HDHVI 08:15
PROVIDERS: ATTEND Internal Medicine Cardiovascular Disease
DX: I13.2 Hypertensive heart and chronic kidney disease with heart failure and with stage 5 chronic kidney disease, or end stage renal disease (principal); E11.22 Type 2 diabetes mellitus with diabetic chronic kidney disease; I50.23 Acute on chronic systolic (congestive) heart failure; N18.6 End stage renal disease; I25.10 Atherosclerotic heart disease of native coronary artery without angina pectoris; I48.11 Longstanding persistent atrial fibrillation; I25.2 Old myocardial infarction; I42.8 Other cardiomyopathies; J44.9 Chronic obstructive pulmonary disease, unspecified; K21.9 Gastro-esophageal reflux disease without esophagitis; E11.21 Type 2 diabetes mellitus with diabetic nephropathy; E11.42 Type 2 diabetes mellitus with diabetic polyneuropathy; E11.51 Type 2 diabetes mellitus with diabetic peripheral angiopathy without gangrene; E11.319 Type 2 diabetes mellitus with unspecified diabetic retinopathy without macular edema; E78.5 Hyperlipidemia, unspecified; E78.00 Pure hypercholesterolemia, unspecified; E03.9 Hypothyroidism, unspecified; M17.12 Unilateral primary osteoarthritis, left knee; G89.29 Other chronic pain; F31.9 Bipolar disorder, unspecified; F41.9 Anxiety disorder, unspecified; R53.83 Other fatigue; Z87.891 Personal history of nicotine dependence; Z95.5 Presence of coronary angioplasty implant and graft; Z85.810 Personal history of malignant neoplasm of tongue; Z90.49 Acquired absence of other specified parts of digestive tract; Z85.060 Personal history of malignant carcinoid tumor of small intestine; Z79.899 Other long term (current) drug therapy; Z85.030 Personal history of malignant carcinoid tumor of large intestine; Z85.46 Personal history of malignant neoplasm of prostate; Z95.1 Presence of aortocoronary bypass graft; Z95.810 Presence of automatic (implantable) cardiac defibrillator; Z79.01 Long term (current) use of anticoagulants; Z86.73 Personal history of transient ischemic attack (TIA), and cerebral infarction without residual deficits
CPT/HCPCS: 96365; 96366; G0463; J1250; J1642

== ENCOUNTER → 2020-12-18 | Outpatient (CLI) | payer OTHER ==
[2020-12-18] VITALS (9 sets, daily range): BP systolic 92–120; BP diastolic 43–68
== END | disposition home or self-care (01) ==
LOC: CHF HDHVI 08:36
PROVIDERS: ATTEND Internal Medicine Cardiovascular Disease
DX: I13.2 Hypertensive heart and chronic kidney disease with heart failure and with stage 5 chronic kidney disease, or end stage renal disease (principal); E11.22 Type 2 diabetes mellitus with diabetic chronic kidney disease; N18.6 End stage renal disease; I50.23 Acute on chronic systolic (congestive) heart failure; I50.84 End stage heart failure; I25.10 Atherosclerotic heart disease of native coronary artery without angina pectoris; I48.11 Longstanding persistent atrial fibrillation; I27.21 Secondary pulmonary arterial hypertension; I25.2 Old myocardial infarction; F41.9 Anxiety disorder, unspecified; R53.83 Other fatigue; J44.9 Chronic obstructive pulmonary disease, unspecified; K21.9 Gastro-esophageal reflux disease without esophagitis; E78.5 Hyperlipidemia, unspecified; E03.9 Hypothyroidism, unspecified; G89.29 Other chronic pain; E78.00 Pure hypercholesterolemia, unspecified; E11.21 Type 2 diabetes mellitus with diabetic nephropathy; E11.42 Type 2 diabetes mellitus with diabetic polyneuropathy; E11.51 Type 2 diabetes mellitus with diabetic peripheral angiopathy without gangrene; E11.319 Type 2 diabetes mellitus with unspecified diabetic retinopathy without macular edema; M17.12 Unilateral primary osteoarthritis, left knee; F32.9 Major depressive disorder, single episode, unspecified; Z79.899 Other long term (current) drug therapy; Z85.030 Personal history of malignant carcinoid tumor of large intestine; Z85.060 Personal history of malignant carcinoid tumor of small intestine; Z90.49 Acquired absence of other specified parts of digestive tract; Z85.810 Personal history of malignant neoplasm of tongue; Z85.46 Personal history of malignant neoplasm of prostate; Z87.891 Personal history of nicotine dependence; Z95.1 Presence of aortocoronary bypass graft; Z79.01 Long term (current) use of anticoagulants; Z95.810 Presence of automatic (implantable) cardiac defibrillator; Z95.5 Presence of coronary angioplasty implant and graft; Z86.73 Personal history of transient ischemic attack (TIA), and cerebral infarction without residual deficits
CPT/HCPCS: 96365; 96366; G0463; J1250; J1642

== ENCOUNTER → 2020-12-21 | Outpatient (CLI) | payer OTHER ==
[2020-12-21] VITALS (9 sets, daily range): BP systolic 83–118; BP diastolic 43–64
[2020-12-21 11:52] LABS: Potassium 4.1 mmol/L (3.5-5.1)
[2020-12-21 12:00] LABS: Albumin 3.5 g/dL (3.4-5.0); BUN/Creatinine Ratio 12.4; Bilirubin, Total 0.6 mg/dL (0.2-1.0); Calcium 8.7 mg/dL (8.5-10.1); Magnesium 2.7 mg/dL (1.6-2.6); Total Protein 7.4 g/dL (6.4-8.2)
[2020-12-21 12:43] LABS: Prostate Specific Antigen 5.4 ng/mL (0.0-4.0)
[2020-12-21 13:31] LABS: Basophils # (auto) 0 10 ^3/uL (0-0.2); Basophils % (auto) 0.8 % (0.0-2.0); Eosinophils # (auto) 0.1 10 ^3/uL (0-0.8); Hematocrit 39.6 % (41.0-53.0); Hemoglobin 13.2 g/dL (13.5-17.5); Lymphocytes # (auto) 1.2 10 ^3/uL (0.4-5.4); Mean Corpuscular Hemoglobin 32.1 pg (28.0-32.0); Mean Corpuscular Hgb Conc. 33.3 g/dL (32.0-36.0); Mean Corpuscular Volume 96.5 fL (80.0-100.0); Monocytes # (auto) 0.7 10 ^3/uL (0-1.3); Neutrophils # (auto) 1.5 10 ^3/uL (1.6-8.6); Neutrophils % (auto) 42.9 % (37.0-80.0); Nucleated Red Blood Cells % 0.1 %; Platelet Count (auto) 186 10^3/uL (140-450); Red Blood Cells 4.11 10^6/uL (4.5-5.90); Red Cell Distribution Width 13.9 % (11.8-14.3); White Blood Cell 3.6 10^3/uL (4.4-10.8)
[2020-12-21 13:35] LABS: Eosinophils % (auto) 3.9 % (0.0-7.0); Lymphocytes % (auto) 35.9 % (10.0-50.0); Monocytes % (auto) 17.5 % (0.0-12.0)
== END | disposition home or self-care (01) ==
LOC: CHF HDHVI 08:35
PROVIDERS: ATTEND Internal Medicine Cardiovascular Disease
DX: D51.3 Other dietary vitamin B12 deficiency anemia (principal); I13.2 Hypertensive heart and chronic kidney disease with heart failure and with stage 5 chronic kidney disease, or end stage renal disease; E11.22 Type 2 diabetes mellitus with diabetic chronic kidney disease; N18.6 End stage renal disease; I50.23 Acute on chronic systolic (congestive) heart failure; I50.84 End stage heart failure; R53.83 Other fatigue; I25.10 Atherosclerotic heart disease of native coronary artery without angina pectoris; I27.21 Secondary pulmonary arterial hypertension; I48.11 Longstanding persistent atrial fibrillation; I25.2 Old myocardial infarction; I42.8 Other cardiomyopathies; F41.9 Anxiety disorder, unspecified; J44.9 Chronic obstructive pulmonary disease, unspecified; F32.9 Major depressive disorder, single episode, unspecified; K21.9 Gastro-esophageal reflux disease without esophagitis; E78.5 Hyperlipidemia, unspecified; E03.9 Hypothyroidism, unspecified; E78.00 Pure hypercholesterolemia, unspecified; E11.51 Type 2 diabetes mellitus with diabetic peripheral angiopathy without gangrene; E11.319 Type 2 diabetes mellitus with unspecified diabetic retinopathy without macular edema; M17.12 Unilateral primary osteoarthritis, left knee; E11.21 Type 2 diabetes mellitus with diabetic nephropathy; Z85.030 Personal history of malignant carcinoid tumor of large intestine; Z79.899 Other long term (current) drug therapy; Z85.060 Personal history of malignant carcinoid tumor of small intestine; Z85.46 Personal history of malignant neoplasm of prostate; Z85.810 Personal history of malignant neoplasm of tongue; Z87.891 Personal history of nicotine dependence; Z95.5 Presence of coronary angioplasty implant and graft; Z95.1 Presence of aortocoronary bypass graft; Z79.01 Long term (current) use of anticoagulants; Z90.49 Acquired absence of other specified parts of digestive tract; Z95.810 Presence of automatic (implantable) cardiac defibrillator; Z86.73 Personal history of transient ischemic attack (TIA), and cerebral infarction without residual deficits
CPT/HCPCS: 36415; 80053; 82607; 83036; 83735; 83880; 84153; 84154; 84403; 84443; 85025; 96365; 96366; G0463; J1250; J1642

== ENCOUNTER → 2020-12-23 | Outpatient (CLI) | payer OTHER ==
[~2020-12-23] VITALS: Ht 30.5 cm; Wt 87.2 kg
[2020-12-23] VITALS (13 sets, daily range): BP systolic 107–150; BP diastolic 53–95
== END | disposition home or self-care (01) ==
LOC: CHF HDHVI 08:20
PROVIDERS: ATTEND Internal Medicine Cardiovascular Disease
DX: I13.2 Hypertensive heart and chronic kidney disease with heart failure and with stage 5 chronic kidney disease, or end stage renal disease (principal); E11.22 Type 2 diabetes mellitus with diabetic chronic kidney disease; I50.23 Acute on chronic systolic (congestive) heart failure; N18.6 End stage renal disease; I25.10 Atherosclerotic heart disease of native coronary artery without angina pectoris; I48.11 Longstanding persistent atrial fibrillation; I25.2 Old myocardial infarction; I42.8 Other cardiomyopathies; J44.9 Chronic obstructive pulmonary disease, unspecified; K21.9 Gastro-esophageal reflux disease without esophagitis; E11.21 Type 2 diabetes mellitus with diabetic nephropathy; E11.42 Type 2 diabetes mellitus with diabetic polyneuropathy; E11.51 Type 2 diabetes mellitus with diabetic peripheral angiopathy without gangrene; E11.319 Type 2 diabetes mellitus with unspecified diabetic retinopathy without macular edema; E78.5 Hyperlipidemia, unspecified; E78.00 Pure hypercholesterolemia, unspecified; E03.9 Hypothyroidism, unspecified; M17.12 Unilateral primary osteoarthritis, left knee; G89.29 Other chronic pain; F31.9 Bipolar disorder, unspecified; F41.9 Anxiety disorder, unspecified; R53.83 Other fatigue; Z87.891 Personal history of nicotine dependence; Z95.5 Presence of coronary angioplasty implant and graft; Z95.810 Presence of automatic (implantable) cardiac defibrillator; Z90.49 Acquired absence of other specified parts of digestive tract; Z85.060 Personal history of malignant carcinoid tumor of small intestine; Z79.899 Other long term (current) drug therapy; Z85.030 Personal history of malignant carcinoid tumor of large intestine; Z85.46 Personal history of malignant neoplasm of prostate; Z79.01 Long term (current) use of anticoagulants; Z86.73 Personal history of transient ischemic attack (TIA), and cerebral infarction without residual deficits
CPT/HCPCS: 96365; 96366; G0463; J1250; J1642

== ENCOUNTER → 2020-12-25 | Outpatient (CLI) | payer OTHER ==
[2020-12-25] VITALS (9 sets, daily range): BP systolic 105–120; BP diastolic 49–66
== END | disposition home or self-care (01) ==
LOC: CHF HDHVI 08:31
PROVIDERS: ATTEND Internal Medicine Cardiovascular Disease
DX: I13.2 Hypertensive heart and chronic kidney disease with heart failure and with stage 5 chronic kidney disease, or end stage renal disease (principal); E11.22 Type 2 diabetes mellitus with diabetic chronic kidney disease; N18.6 End stage renal disease; I50.23 Acute on chronic systolic (congestive) heart failure; I50.84 End stage heart failure; R53.83 Other fatigue; I25.10 Atherosclerotic heart disease of native coronary artery without angina pectoris; I48.11 Longstanding persistent atrial fibrillation; I25.2 Old myocardial infarction; I42.8 Other cardiomyopathies; I27.21 Secondary pulmonary arterial hypertension; F41.9 Anxiety disorder, unspecified; J44.9 Chronic obstructive pulmonary disease, unspecified; K21.9 Gastro-esophageal reflux disease without esophagitis; E78.5 Hyperlipidemia, unspecified; E03.9 Hypothyroidism, unspecified; G89.29 Other chronic pain; E78.00 Pure hypercholesterolemia, unspecified; E11.21 Type 2 diabetes mellitus with diabetic nephropathy; E11.42 Type 2 diabetes mellitus with diabetic polyneuropathy; E11.51 Type 2 diabetes mellitus with diabetic peripheral angiopathy without gangrene; E11.319 Type 2 diabetes mellitus with unspecified diabetic retinopathy without macular edema; M17.12 Unilateral primary osteoarthritis, left knee; F32.9 Major depressive disorder, single episode, unspecified; Z85.810 Personal history of malignant neoplasm of tongue; Z95.1 Presence of aortocoronary bypass graft; Z79.899 Other long term (current) drug therapy; Z90.49 Acquired absence of other specified parts of digestive tract; Z85.030 Personal history of malignant carcinoid tumor of large intestine; Z85.060 Personal history of malignant carcinoid tumor of small intestine; Z85.46 Personal history of malignant neoplasm of prostate; Z87.891 Personal history of nicotine dependence; Z95.810 Presence of automatic (implantable) cardiac defibrillator; Z79.01 Long term (current) use of anticoagulants; Z95.5 Presence of coronary angioplasty implant and graft; Z86.73 Personal history of transient ischemic attack (TIA), and cerebral infarction without residual deficits
CPT/HCPCS: 96365; 96366; G0463; J1250; J1642

== ENCOUNTER → 2020-12-28 | Outpatient (CLI) | payer OTHER ==
[2020-12-28] VITALS (8 sets, daily range): BP systolic 101–137; BP diastolic 47–77
[2020-12-28 11:30] LABS: Basophils # (auto) 0 10 ^3/uL (0-0.2); Basophils % (auto) 0.8 % (0.0-2.0); Eosinophils # (auto) 0.2 10 ^3/uL (0-0.8); Eosinophils % (auto) 4.9 % (0.0-7.0); Hematocrit 38.4 % (41.0-53.0); Lymphocytes # (auto) 1.1 10 ^3/uL (0.4-5.4); Lymphocytes % (auto) 33.3 % (10.0-50.0); Mean Corpuscular Hemoglobin 32.4 pg (28.0-32.0); Mean Corpuscular Hgb Conc. 33.7 g/dL (32.0-36.0); Monocytes # (auto) 0.6 10 ^3/uL (0-1.3); Monocytes % (auto) 17.7 % (0.0-12.0); Neutrophils # (auto) 1.4 10 ^3/uL (1.6-8.6); Neutrophils % (auto) 43.3 % (37.0-80.0); Nucleated Red Blood Cells % 0.3 %; Platelet Count (auto) 145 10^3/uL (140-450); White Blood Cell 3.2 10^3/uL (4.4-10.8)
[2020-12-28 11:44] LABS: Calcium 8.6 mg/dL (8.5-10.1); Magnesium 2.7 mg/dL (1.6-2.6); Potassium 4.1 mmol/L (3.5-5.1)
[2020-12-28 11:50] LABS: BUN/Creatinine Ratio 15.1
== END | disposition home or self-care (01) ==
LOC: CHF HDHVI 08:34
PROVIDERS: ATTEND Internal Medicine Cardiovascular Disease
DX: I13.2 Hypertensive heart and chronic kidney disease with heart failure and with stage 5 chronic kidney disease, or end stage renal disease (principal); E11.22 Type 2 diabetes mellitus with diabetic chronic kidney disease; N18.6 End stage renal disease; I50.23 Acute on chronic systolic (congestive) heart failure; I50.84 End stage heart failure; D64.9 Anemia, unspecified; R53.83 Other fatigue; I25.10 Atherosclerotic heart disease of native coronary artery without angina pectoris; I48.11 Longstanding persistent atrial fibrillation; I25.2 Old myocardial infarction; I42.8 Other cardiomyopathies; I27.21 Secondary pulmonary arterial hypertension; J44.9 Chronic obstructive pulmonary disease, unspecified; K21.9 Gastro-esophageal reflux disease without esophagitis; E78.5 Hyperlipidemia, unspecified; F41.9 Anxiety disorder, unspecified; E03.9 Hypothyroidism, unspecified; F32.9 Major depressive disorder, single episode, unspecified; G89.29 Other chronic pain; E78.00 Pure hypercholesterolemia, unspecified; E11.21 Type 2 diabetes mellitus with diabetic nephropathy; E11.42 Type 2 diabetes mellitus with diabetic polyneuropathy; E11.51 Type 2 diabetes mellitus with diabetic peripheral angiopathy without gangrene; E11.319 Type 2 diabetes mellitus with unspecified diabetic retinopathy without macular edema; M17.12 Unilateral primary osteoarthritis, left knee; Z79.899 Other long term (current) drug therapy; Z90.49 Acquired absence of other specified parts of digestive tract; Z79.01 Long term (current) use of anticoagulants; Z85.030 Personal history of malignant carcinoid tumor of large intestine; Z85.060 Personal history of malignant carcinoid tumor of small intestine; Z85.810 Personal history of malignant neoplasm of tongue; Z85.46 Personal history of malignant neoplasm of prostate; Z87.891 Personal history of nicotine dependence; Z95.1 Presence of aortocoronary bypass graft; Z95.5 Presence of coronary angioplasty implant and graft; Z86.73 Personal history of transient ischemic attack (TIA), and cerebral infarction without residual deficits; Z95.810 Presence of automatic (implantable) cardiac defibrillator
CPT/HCPCS: 36415; 80048; 80061; 83735; 83880; 85025; 96365; 96366; G0463; J1250; J1642

== ENCOUNTER → 2020-12-30 | Outpatient (CLI) | payer OTHER ==
[2020-12-30] VITALS (9 sets, daily range): BP systolic 101–130; BP diastolic 47–73
[~2020-12-30] VITALS: Ht 30.5 cm; Wt 86.0 kg
== END | disposition home or self-care (01) ==
LOC: CHF HDHVI 08:28
PROVIDERS: ATTEND Internal Medicine Cardiovascular Disease
DX: I13.2 Hypertensive heart and chronic kidney disease with heart failure and with stage 5 chronic kidney disease, or end stage renal disease (principal); E11.22 Type 2 diabetes mellitus with diabetic chronic kidney disease; N18.6 End stage renal disease; I50.23 Acute on chronic systolic (congestive) heart failure; I50.84 End stage heart failure; R53.83 Other fatigue; I42.8 Other cardiomyopathies; I25.10 Atherosclerotic heart disease of native coronary artery without angina pectoris; I48.11 Longstanding persistent atrial fibrillation; I25.2 Old myocardial infarction; J44.9 Chronic obstructive pulmonary disease, unspecified; K21.9 Gastro-esophageal reflux disease without esophagitis; E78.5 Hyperlipidemia, unspecified; E03.9 Hypothyroidism, unspecified; F41.9 Anxiety disorder, unspecified; F32.9 Major depressive disorder, single episode, unspecified; G89.29 Other chronic pain; E78.00 Pure hypercholesterolemia, unspecified; E11.21 Type 2 diabetes mellitus with diabetic nephropathy; E11.51 Type 2 diabetes mellitus with diabetic peripheral angiopathy without gangrene; E11.319 Type 2 diabetes mellitus with unspecified diabetic retinopathy without macular edema; E11.42 Type 2 diabetes mellitus with diabetic polyneuropathy; M17.12 Unilateral primary osteoarthritis, left knee; Z79.899 Other long term (current) drug therapy; Z85.030 Personal history of malignant carcinoid tumor of large intestine; Z90.49 Acquired absence of other specified parts of digestive tract; Z85.060 Personal history of malignant carcinoid tumor of small intestine; Z85.810 Personal history of malignant neoplasm of tongue; Z85.46 Personal history of malignant neoplasm of prostate; Z87.891 Personal history of nicotine dependence; Z79.01 Long term (current) use of anticoagulants; Z95.1 Presence of aortocoronary bypass graft; Z95.810 Presence of automatic (implantable) cardiac defibrillator; Z95.5 Presence of coronary angioplasty implant and graft; Z86.73 Personal history of transient ischemic attack (TIA), and cerebral infarction without residual deficits
CPT/HCPCS: 96365; 96366; G0463; J1250; J1642

== ENCOUNTER → 2021-01-01 | Outpatient (CLI) | payer OTHER ==
[~2021-01-01] VITALS: Ht 30.5 cm; Wt 86.4 kg
[2021-01-01] VITALS (9 sets, daily range): BP systolic 114–148; BP diastolic 57–78
== END | disposition home or self-care (01) ==
LOC: CHF HDHVI 08:15
PROVIDERS: ATTEND Internal Medicine Cardiovascular Disease
DX: I13.2 Hypertensive heart and chronic kidney disease with heart failure and with stage 5 chronic kidney disease, or end stage renal disease (principal); E11.22 Type 2 diabetes mellitus with diabetic chronic kidney disease; N18.6 End stage renal disease; I50.23 Acute on chronic systolic (congestive) heart failure; I50.84 End stage heart failure; R53.83 Other fatigue; I25.10 Atherosclerotic heart disease of native coronary artery without angina pectoris; I25.2 Old myocardial infarction; I48.11 Longstanding persistent atrial fibrillation; I27.21 Secondary pulmonary arterial hypertension; J44.9 Chronic obstructive pulmonary disease, unspecified; K21.9 Gastro-esophageal reflux disease without esophagitis; F41.9 Anxiety disorder, unspecified; E78.5 Hyperlipidemia, unspecified; E03.9 Hypothyroidism, unspecified; F32.9 Major depressive disorder, single episode, unspecified; G89.29 Other chronic pain; E78.00 Pure hypercholesterolemia, unspecified; E11.42 Type 2 diabetes mellitus with diabetic polyneuropathy; E11.51 Type 2 diabetes mellitus with diabetic peripheral angiopathy without gangrene; E11.319 Type 2 diabetes mellitus with unspecified diabetic retinopathy without macular edema; M17.12 Unilateral primary osteoarthritis, left knee; Z79.899 Other long term (current) drug therapy; Z90.49 Acquired absence of other specified parts of digestive tract; Z85.030 Personal history of malignant carcinoid tumor of large intestine; Z85.060 Personal history of malignant carcinoid tumor of small intestine; Z85.810 Personal history of malignant neoplasm of tongue; Z85.46 Personal history of malignant neoplasm of prostate; Z79.01 Long term (current) use of anticoagulants; Z87.891 Personal history of nicotine dependence; Z95.1 Presence of aortocoronary bypass graft; Z95.810 Presence of automatic (implantable) cardiac defibrillator; Z95.5 Presence of coronary angioplasty implant and graft; Z86.73 Personal history of transient ischemic attack (TIA), and cerebral infarction without residual deficits
CPT/HCPCS: 96365; 96366; G0463; J1250; J1642

== ENCOUNTER → 2021-01-06 | Outpatient (CLI) | payer OTHER ==
[2021-01-06] VITALS (9 sets, daily range): BP systolic 115–133; BP diastolic 55–80
[~2021-01-06] MED LIST changes: -DOBUTamine 1000MCG/ML 250 ML IV ONE
[2021-01-06] MEDS: DOBUTamine 1000MCG/ML 250 ML IV ONE ×2 (08:10→08:47)
[2021-01-06] MEDS: CYANOCOBALAMIN (B-12) 1000 MCG/1 ML VIAL IM ONE (09:09)
[2021-01-06] MEDS: CYANOCOBALAMIN (B-12) 1000 MCG/1 ML VIAL ONE (09:10)
== END | disposition home or self-care (01) ==
LOC: CHF HDHVI 08:10
PROVIDERS: ATTEND Internal Medicine Cardiovascular Disease
DX: I13.2 Hypertensive heart and chronic kidney disease with heart failure and with stage 5 chronic kidney disease, or end stage renal disease (principal); E11.22 Type 2 diabetes mellitus with diabetic chronic kidney disease; I50.23 Acute on chronic systolic (congestive) heart failure; N18.6 End stage renal disease; R53.83 Other fatigue; I25.10 Atherosclerotic heart disease of native coronary artery without angina pectoris; I48.11 Longstanding persistent atrial fibrillation; I25.2 Old myocardial infarction; I42.8 Other cardiomyopathies; J44.9 Chronic obstructive pulmonary disease, unspecified; K21.9 Gastro-esophageal reflux disease without esophagitis; E11.21 Type 2 diabetes mellitus with diabetic nephropathy; E11.42 Type 2 diabetes mellitus with diabetic polyneuropathy; E11.51 Type 2 diabetes mellitus with diabetic peripheral angiopathy without gangrene; E11.319 Type 2 diabetes mellitus with unspecified diabetic retinopathy without macular edema; E78.5 Hyperlipidemia, unspecified; E78.00 Pure hypercholesterolemia, unspecified; E03.9 Hypothyroidism, unspecified; M17.12 Unilateral primary osteoarthritis, left knee; G89.29 Other chronic pain; F31.9 Bipolar disorder, unspecified; F41.9 Anxiety disorder, unspecified; Z87.891 Personal history of nicotine dependence; Z95.5 Presence of coronary angioplasty implant and graft; Z95.810 Presence of automatic (implantable) cardiac defibrillator; Z90.49 Acquired absence of other specified parts of digestive tract; Z85.060 Personal history of malignant carcinoid tumor of small intestine; Z79.899 Other long term (current) drug therapy; Z85.030 Personal history of malignant carcinoid tumor of large intestine; Z85.46 Personal history of malignant neoplasm of prostate; Z95.1 Presence of aortocoronary bypass graft; Z79.01 Long term (current) use of anticoagulants; Z86.73 Personal history of transient ischemic attack (TIA), and cerebral infarction without residual deficits
CPT/HCPCS: 96365; 96366; 96372; G0463; J1250; J1642; J3420

== ENCOUNTER → 2021-01-08 | Outpatient (CLI) | payer OTHER ==
[2021-01-08] VITALS (9 sets, daily range): BP systolic 107–130; BP diastolic 51–73
[~2021-01-08] MED LIST changes: +DOBUTamine 1000MCG/ML 250 ML IV ONE
== END | disposition home or self-care (01) ==
LOC: CHF HDHVI 08:19
PROVIDERS: ATTEND Internal Medicine Cardiovascular Disease
DX: I13.2 Hypertensive heart and chronic kidney disease with heart failure and with stage 5 chronic kidney disease, or end stage renal disease (principal); E11.22 Type 2 diabetes mellitus with diabetic chronic kidney disease; I50.23 Acute on chronic systolic (congestive) heart failure; N18.6 End stage renal disease; F41.9 Anxiety disorder, unspecified; I25.10 Atherosclerotic heart disease of native coronary artery without angina pectoris; F31.9 Bipolar disorder, unspecified; J44.9 Chronic obstructive pulmonary disease, unspecified; K21.9 Gastro-esophageal reflux disease without esophagitis; E78.5 Hyperlipidemia, unspecified; E03.9 Hypothyroidism, unspecified; E78.00 Pure hypercholesterolemia, unspecified; E11.42 Type 2 diabetes mellitus with diabetic polyneuropathy; E11.51 Type 2 diabetes mellitus with diabetic peripheral angiopathy without gangrene; M17.12 Unilateral primary osteoarthritis, left knee; I25.2 Old myocardial infarction; I48.11 Longstanding persistent atrial fibrillation; Z79.01 Long term (current) use of anticoagulants; Z90.49 Acquired absence of other specified parts of digestive tract; Z79.899 Other long term (current) drug therapy; Z87.891 Personal history of nicotine dependence; Z95.810 Presence of automatic (implantable) cardiac defibrillator; Z86.73 Personal history of transient ischemic attack (TIA), and cerebral infarction without residual deficits
CPT/HCPCS: 96365; 96366; G0463; J1250; J1642

== ENCOUNTER → 2021-01-13 | Outpatient (CLI) | payer OTHER ==
[2021-01-13] VITALS (9 sets, daily range): BP systolic 100–123; BP diastolic 48–77
== END | disposition home or self-care (01) ==
LOC: CHF HDHVI 08:28
PROVIDERS: ATTEND Internal Medicine Cardiovascular Disease
DX: I42.8 Other cardiomyopathies (principal); I13.2 Hypertensive heart and chronic kidney disease with heart failure and with stage 5 chronic kidney disease, or end stage renal disease; E11.22 Type 2 diabetes mellitus with diabetic chronic kidney disease; I50.22 Chronic systolic (congestive) heart failure; I50.84 End stage heart failure; N18.6 End stage renal disease; F41.9 Anxiety disorder, unspecified; F31.9 Bipolar disorder, unspecified; I25.10 Atherosclerotic heart disease of native coronary artery without angina pectoris; J44.9 Chronic obstructive pulmonary disease, unspecified; K21.9 Gastro-esophageal reflux disease without esophagitis; E78.5 Hyperlipidemia, unspecified; E03.9 Hypothyroidism, unspecified; I48.11 Longstanding persistent atrial fibrillation; I25.2 Old myocardial infarction; E11.51 Type 2 diabetes mellitus with diabetic peripheral angiopathy without gangrene; E78.00 Pure hypercholesterolemia, unspecified; E11.42 Type 2 diabetes mellitus with diabetic polyneuropathy; M17.12 Unilateral primary osteoarthritis, left knee; Z90.49 Acquired absence of other specified parts of digestive tract; Z79.01 Long term (current) use of anticoagulants; Z79.899 Other long term (current) drug therapy; Z87.891 Personal history of nicotine dependence; Z95.810 Presence of automatic (implantable) cardiac defibrillator; Z86.73 Personal history of transient ischemic attack (TIA), and cerebral infarction without residual deficits
CPT/HCPCS: 96365; 96366; G0463; J1250; J1642

== ENCOUNTER → 2021-01-15 | Outpatient (CLI) | payer OTHER ==
[2021-01-15] VITALS (8 sets, daily range): BP systolic 98–129; BP diastolic 51–71
== END | disposition home or self-care (01) ==
LOC: CHF HDHVI 08:22
PROVIDERS: ATTEND Internal Medicine Cardiovascular Disease
DX: I13.2 Hypertensive heart and chronic kidney disease with heart failure and with stage 5 chronic kidney disease, or end stage renal disease (principal); E11.22 Type 2 diabetes mellitus with diabetic chronic kidney disease; I50.23 Acute on chronic systolic (congestive) heart failure; I50.84 End stage heart failure; N18.6 End stage renal disease; F41.9 Anxiety disorder, unspecified; I25.10 Atherosclerotic heart disease of native coronary artery without angina pectoris; F31.9 Bipolar disorder, unspecified; J44.9 Chronic obstructive pulmonary disease, unspecified; K21.9 Gastro-esophageal reflux disease without esophagitis; E78.5 Hyperlipidemia, unspecified; I48.11 Longstanding persistent atrial fibrillation; E03.9 Hypothyroidism, unspecified; I25.2 Old myocardial infarction; E78.00 Pure hypercholesterolemia, unspecified; E11.42 Type 2 diabetes mellitus with diabetic polyneuropathy; E11.51 Type 2 diabetes mellitus with diabetic peripheral angiopathy without gangrene; M17.12 Unilateral primary osteoarthritis, left knee; Z87.891 Personal history of nicotine dependence; Z90.49 Acquired absence of other specified parts of digestive tract; Z79.899 Other long term (current) drug therapy; Z95.810 Presence of automatic (implantable) cardiac defibrillator; Z86.73 Personal history of transient ischemic attack (TIA), and cerebral infarction without residual deficits
CPT/HCPCS: 71046; 96365; 96366; G0463; J1250; J1642

== ENCOUNTER → 2021-01-19 | Outpatient (CLI) | payer OTHER ==
[2020-12-18 08:10] VITALS: BP 109/68
[2020-12-18 08:15] VITALS: BP 102/52
[2020-12-18 08:30] VITALS: BP 98/51
== END | disposition home or self-care (01) ==
LOC: CHF HDHVI 12-18 08:20 → Rad HDHVI 10:55
PROVIDERS: ATTEND Internal Medicine Cardiovascular Disease
DX: I50.43 Acute on chronic combined systolic (congestive) and diastolic (congestive) heart failure (principal); I48.91 Unspecified atrial fibrillation; R53.83 Other fatigue; I25.5 Ischemic cardiomyopathy
CPT/HCPCS: 93306

== ENCOUNTER → 2021-01-20 | Outpatient (CLI) | payer OTHER ==
[~2021-01-20] VITALS: Ht 30.5 cm; Wt 86.3 kg
[2021-01-20] VITALS (9 sets, daily range): BP systolic 101–127; BP diastolic 52–70
== END | disposition home or self-care (01) ==
LOC: CHF HDHVI 08:21
PROVIDERS: ATTEND Internal Medicine Cardiovascular Disease
DX: I13.2 Hypertensive heart and chronic kidney disease with heart failure and with stage 5 chronic kidney disease, or end stage renal disease (principal); E11.22 Type 2 diabetes mellitus with diabetic chronic kidney disease; I50.43 Acute on chronic combined systolic (congestive) and diastolic (congestive) heart failure; N18.6 End stage renal disease; I48.91 Unspecified atrial fibrillation; F41.9 Anxiety disorder, unspecified; I25.10 Atherosclerotic heart disease of native coronary artery without angina pectoris; F31.9 Bipolar disorder, unspecified; J44.9 Chronic obstructive pulmonary disease, unspecified; K21.9 Gastro-esophageal reflux disease without esophagitis; E78.5 Hyperlipidemia, unspecified; E03.9 Hypothyroidism, unspecified; I48.11 Longstanding persistent atrial fibrillation; I25.2 Old myocardial infarction; E78.00 Pure hypercholesterolemia, unspecified; E11.42 Type 2 diabetes mellitus with diabetic polyneuropathy; E11.51 Type 2 diabetes mellitus with diabetic peripheral angiopathy without gangrene; Z79.899 Other long term (current) drug therapy; Z95.810 Presence of automatic (implantable) cardiac defibrillator; Z86.73 Personal history of transient ischemic attack (TIA), and cerebral infarction without residual deficits; Z90.49 Acquired absence of other specified parts of digestive tract; Z79.01 Long term (current) use of anticoagulants
CPT/HCPCS: 96365; 96366; G0463; J1250; J1642

== ENCOUNTER → 2021-01-25 | Outpatient (CLI) | payer OTHER ==
[2021-01-25] VITALS (9 sets, daily range): BP systolic 105–133; BP diastolic 55–75
[2021-01-25 12:08] LABS: Basophils # (auto) 0 10 ^3/uL (0-0.2); Basophils % (auto) 0.5 % (0.0-2.0); Eosinophils # (auto) 0.1 10 ^3/uL (0-0.8); Eosinophils % (auto) 3.9 % (0.0-7.0); Hemoglobin 12.9 g/dL (13.5-17.5); Lymphocytes # (auto) 1.2 10 ^3/uL (0.4-5.4); Lymphocytes % (auto) 36.2 % (10.0-50.0); Mean Corpuscular Hemoglobin 32.5 pg (28.0-32.0); Mean Corpuscular Volume 95.8 fL (80.0-100.0); Monocytes # (auto) 0.5 10 ^3/uL (0-1.3); Monocytes % (auto) 16.8 % (0.0-12.0); Neutrophils # (auto) 1.4 10 ^3/uL (1.6-8.6); Neutrophils % (auto) 42.6 % (37.0-80.0); Platelet Count (auto) 130 10^3/uL (140-450); Red Blood Cells 3.96 10^6/uL (4.5-5.90); Red Cell Distribution Width 13.8 % (11.8-14.3); White Blood Cell 3.2 10^3/uL (4.4-10.8)
[2021-01-25 13:16] LABS: Potassium 3.9 mmol/L (3.5-5.1)
[2021-01-25 13:21] LABS: Calcium 8.8 mg/dL (8.5-10.1); Magnesium 2.6 mg/dL (1.6-2.6)
== END | disposition home or self-care (01) ==
LOC: CHF HDHVI 08:19
PROVIDERS: ATTEND Internal Medicine Cardiovascular Disease
DX: I13.2 Hypertensive heart and chronic kidney disease with heart failure and with stage 5 chronic kidney disease, or end stage renal disease (principal); E11.22 Type 2 diabetes mellitus with diabetic chronic kidney disease; I50.23 Acute on chronic systolic (congestive) heart failure; N18.6 End stage renal disease; I25.10 Atherosclerotic heart disease of native coronary artery without angina pectoris; I48.11 Longstanding persistent atrial fibrillation; I25.2 Old myocardial infarction; J44.9 Chronic obstructive pulmonary disease, unspecified; K21.9 Gastro-esophageal reflux disease without esophagitis; E11.21 Type 2 diabetes mellitus with diabetic nephropathy; E11.42 Type 2 diabetes mellitus with diabetic polyneuropathy; E11.51 Type 2 diabetes mellitus with diabetic peripheral angiopathy without gangrene; E11.319 Type 2 diabetes mellitus with unspecified diabetic retinopathy without macular edema; E78.5 Hyperlipidemia, unspecified; E78.00 Pure hypercholesterolemia, unspecified; E03.9 Hypothyroidism, unspecified; M17.12 Unilateral primary osteoarthritis, left knee; G89.29 Other chronic pain; F31.9 Bipolar disorder, unspecified; F41.9 Anxiety disorder, unspecified; R53.83 Other fatigue; Z87.891 Personal history of nicotine dependence; Z95.810 Presence of automatic (implantable) cardiac defibrillator; Z95.5 Presence of coronary angioplasty implant and graft; Z90.49 Acquired absence of other specified parts of digestive tract; Z85.038 Personal history of other malignant neoplasm of large intestine; Z79.899 Other long term (current) drug therapy; Z85.46 Personal history of malignant neoplasm of prostate; Z79.01 Long term (current) use of anticoagulants; Z86.73 Personal history of transient ischemic attack (TIA), and cerebral infarction without residual deficits
CPT/HCPCS: 36415; 80048; 83735; 83880; 85025; 96365; 96366; G0463; J1250; J1642

== ENCOUNTER → 2021-01-27 | Outpatient (CLI) | payer OTHER ==
[2021-01-27] VITALS (9 sets, daily range): BP systolic 109–134; BP diastolic 51–81
== END | disposition home or self-care (01) ==
LOC: CHF HDHVI 08:21
PROVIDERS: ATTEND Internal Medicine Cardiovascular Disease
DX: I13.2 Hypertensive heart and chronic kidney disease with heart failure and with stage 5 chronic kidney disease, or end stage renal disease (principal); E11.22 Type 2 diabetes mellitus with diabetic chronic kidney disease; I50.23 Acute on chronic systolic (congestive) heart failure; N18.6 End stage renal disease; I25.10 Atherosclerotic heart disease of native coronary artery without angina pectoris; I48.11 Longstanding persistent atrial fibrillation; I42.8 Other cardiomyopathies; J44.9 Chronic obstructive pulmonary disease, unspecified; K21.9 Gastro-esophageal reflux disease without esophagitis; E11.21 Type 2 diabetes mellitus with diabetic nephropathy; E11.42 Type 2 diabetes mellitus with diabetic polyneuropathy; E11.51 Type 2 diabetes mellitus with diabetic peripheral angiopathy without gangrene; E11.319 Type 2 diabetes mellitus with unspecified diabetic retinopathy without macular edema; E78.5 Hyperlipidemia, unspecified; E78.00 Pure hypercholesterolemia, unspecified; E03.9 Hypothyroidism, unspecified; M17.12 Unilateral primary osteoarthritis, left knee; G89.29 Other chronic pain; F31.9 Bipolar disorder, unspecified; F41.9 Anxiety disorder, unspecified; R53.83 Other fatigue; Z87.891 Personal history of nicotine dependence; Z95.810 Presence of automatic (implantable) cardiac defibrillator; Z95.5 Presence of coronary angioplasty implant and graft; Z90.49 Acquired absence of other specified parts of digestive tract; Z85.060 Personal history of malignant carcinoid tumor of small intestine; Z85.46 Personal history of malignant neoplasm of prostate; Z85.038 Personal history of other malignant neoplasm of large intestine; Z79.01 Long term (current) use of anticoagulants; Z86.73 Personal history of transient ischemic attack (TIA), and cerebral infarction without residual deficits
CPT/HCPCS: 96365; 96366; G0463; J1250; J1642

== ENCOUNTER → 2021-01-29 | Outpatient (CLI) | payer OTHER ==
[2021-01-29] VITALS (9 sets, daily range): BP systolic 106–125; BP diastolic 54–75
== END | disposition home or self-care (01) ==
LOC: CHF HDHVI 08:09
PROVIDERS: ATTEND Internal Medicine Cardiovascular Disease
DX: I13.2 Hypertensive heart and chronic kidney disease with heart failure and with stage 5 chronic kidney disease, or end stage renal disease (principal); E11.22 Type 2 diabetes mellitus with diabetic chronic kidney disease; I50.42 Chronic combined systolic (congestive) and diastolic (congestive) heart failure; N18.6 End stage renal disease; I25.10 Atherosclerotic heart disease of native coronary artery without angina pectoris; I25.2 Old myocardial infarction; I48.11 Longstanding persistent atrial fibrillation; I42.8 Other cardiomyopathies; J44.9 Chronic obstructive pulmonary disease, unspecified; K21.9 Gastro-esophageal reflux disease without esophagitis; E11.42 Type 2 diabetes mellitus with diabetic polyneuropathy; E11.51 Type 2 diabetes mellitus with diabetic peripheral angiopathy without gangrene; E11.319 Type 2 diabetes mellitus with unspecified diabetic retinopathy without macular edema; E78.5 Hyperlipidemia, unspecified; E03.9 Hypothyroidism, unspecified; E78.00 Pure hypercholesterolemia, unspecified; M17.12 Unilateral primary osteoarthritis, left knee; F41.9 Anxiety disorder, unspecified; F31.9 Bipolar disorder, unspecified; Z95.5 Presence of coronary angioplasty implant and graft; Z95.810 Presence of automatic (implantable) cardiac defibrillator; Z85.46 Personal history of malignant neoplasm of prostate; Z85.038 Personal history of other malignant neoplasm of large intestine; Z85.060 Personal history of malignant carcinoid tumor of small intestine; Z79.01 Long term (current) use of anticoagulants; Z87.891 Personal history of nicotine dependence; Z79.899 Other long term (current) drug therapy; Z86.73 Personal history of transient ischemic attack (TIA), and cerebral infarction without residual deficits
CPT/HCPCS: 96365; 96366; G0463; J1250; J1642

== ENCOUNTER → 2021-02-01 | Outpatient (CLI) | payer OTHER ==
[2021-02-01] VITALS (9 sets, daily range): BP systolic 98–126; BP diastolic 46–63
[~2021-02-01] VITALS: Ht 30.5 cm; Wt 85.5 kg
[~2021-02-01] MED LIST changes: +CYANOCOBALAMIN (B-12) 1000 MCG/1 ML VIAL IM ONE; +CYANOCOBALAMIN (B-12) 1000 MCG/1 ML VIAL ONE
[2021-02-01 11:55] LABS: BUN/Creatinine Ratio 15.9; Calcium 8.8 mg/dL (8.5-10.1); Magnesium 2.6 mg/dL (1.6-2.6); Potassium 4.1 mmol/L (3.5-5.1)
== END | disposition home or self-care (01) ==
LOC: CHF HDHVI 08:13
PROVIDERS: ATTEND Internal Medicine Cardiovascular Disease
DX: I13.2 Hypertensive heart and chronic kidney disease with heart failure and with stage 5 chronic kidney disease, or end stage renal disease (principal); E11.22 Type 2 diabetes mellitus with diabetic chronic kidney disease; I50.42 Chronic combined systolic (congestive) and diastolic (congestive) heart failure; N18.6 End stage renal disease; R53.83 Other fatigue; I48.11 Longstanding persistent atrial fibrillation; I42.8 Other cardiomyopathies; I25.10 Atherosclerotic heart disease of native coronary artery without angina pectoris; I25.2 Old myocardial infarction; J44.9 Chronic obstructive pulmonary disease, unspecified; K21.9 Gastro-esophageal reflux disease without esophagitis; E11.42 Type 2 diabetes mellitus with diabetic polyneuropathy; E11.51 Type 2 diabetes mellitus with diabetic peripheral angiopathy without gangrene; E11.319 Type 2 diabetes mellitus with unspecified diabetic retinopathy without macular edema; E78.5 Hyperlipidemia, unspecified; E03.9 Hypothyroidism, unspecified; E78.00 Pure hypercholesterolemia, unspecified; F41.9 Anxiety disorder, unspecified; F32.9 Major depressive disorder, single episode, unspecified; M17.12 Unilateral primary osteoarthritis, left knee; Z95.810 Presence of automatic (implantable) cardiac defibrillator; Z95.5 Presence of coronary angioplasty implant and graft; Z85.46 Personal history of malignant neoplasm of prostate; Z85.038 Personal history of other malignant neoplasm of large intestine; Z79.01 Long term (current) use of anticoagulants; Z79.899 Other long term (current) drug therapy; Z87.891 Personal history of nicotine dependence; Z86.73 Personal history of transient ischemic attack (TIA), and cerebral infarction without residual deficits
CPT/HCPCS: 36415; 80048; 83735; 83880; 96365; 96366; 96372; G0463; J1250; J1642; J3420

== ENCOUNTER → 2021-02-03 | Outpatient (CLI) | payer OTHER ==
[~2021-02-03] VITALS: Ht 30.5 cm; Wt 85.3 kg
[2021-02-03] VITALS (9 sets, daily range): BP systolic 94–134; BP diastolic 22–81
[~2021-02-03] MED LIST changes: -CYANOCOBALAMIN (B-12) 1000 MCG/1 ML VIAL IM ONE; -CYANOCOBALAMIN (B-12) 1000 MCG/1 ML VIAL ONE
== END | disposition home or self-care (01) ==
LOC: CHF HDHVI 08:08
PROVIDERS: ATTEND Internal Medicine Cardiovascular Disease
DX: I13.2 Hypertensive heart and chronic kidney disease with heart failure and with stage 5 chronic kidney disease, or end stage renal disease (principal); E11.22 Type 2 diabetes mellitus with diabetic chronic kidney disease; I50.42 Chronic combined systolic (congestive) and diastolic (congestive) heart failure; N18.6 End stage renal disease; I42.8 Other cardiomyopathies; I48.11 Longstanding persistent atrial fibrillation; I25.10 Atherosclerotic heart disease of native coronary artery without angina pectoris; I25.2 Old myocardial infarction; E11.42 Type 2 diabetes mellitus with diabetic polyneuropathy; E11.319 Type 2 diabetes mellitus with unspecified diabetic retinopathy without macular edema; E11.51 Type 2 diabetes mellitus with diabetic peripheral angiopathy without gangrene; E03.9 Hypothyroidism, unspecified; E78.5 Hyperlipidemia, unspecified; K21.9 Gastro-esophageal reflux disease without esophagitis; J44.9 Chronic obstructive pulmonary disease, unspecified; M17.12 Unilateral primary osteoarthritis, left knee; F41.9 Anxiety disorder, unspecified; F31.9 Bipolar disorder, unspecified; G89.29 Other chronic pain; E78.00 Pure hypercholesterolemia, unspecified; Z79.01 Long term (current) use of anticoagulants; Z79.899 Other long term (current) drug therapy; Z87.891 Personal history of nicotine dependence; Z95.810 Presence of automatic (implantable) cardiac defibrillator; Z95.5 Presence of coronary angioplasty implant and graft; Z85.46 Personal history of malignant neoplasm of prostate; Z85.038 Personal history of other malignant neoplasm of large intestine; Z85.060 Personal history of malignant carcinoid tumor of small intestine; Z86.73 Personal history of transient ischemic attack (TIA), and cerebral infarction without residual deficits
CPT/HCPCS: 96365; 96366; G0463; J1250; J1642

== ENCOUNTER → 2021-02-08 | Outpatient (CLI) | payer OTHER ==
[~2021-02-08] VITALS: Ht 30.5 cm; Wt 85.9 kg
[2021-02-08] VITALS (9 sets, daily range): BP systolic 91–126; BP diastolic 41–68
[2021-02-08 12:03] LABS: Potassium 4.1 mmol/L (3.5-5.1)
== END | disposition home or self-care (01) ==
LOC: CHF HDHVI 08:08
PROVIDERS: ATTEND Internal Medicine Cardiovascular Disease
DX: I13.2 Hypertensive heart and chronic kidney disease with heart failure and with stage 5 chronic kidney disease, or end stage renal disease (principal); E11.22 Type 2 diabetes mellitus with diabetic chronic kidney disease; I50.23 Acute on chronic systolic (congestive) heart failure; N18.6 End stage renal disease; F41.9 Anxiety disorder, unspecified; I25.10 Atherosclerotic heart disease of native coronary artery without angina pectoris; F31.9 Bipolar disorder, unspecified; J44.9 Chronic obstructive pulmonary disease, unspecified; K21.9 Gastro-esophageal reflux disease without esophagitis; E78.5 Hyperlipidemia, unspecified; E03.9 Hypothyroidism, unspecified; I48.11 Longstanding persistent atrial fibrillation; I25.2 Old myocardial infarction; E11.51 Type 2 diabetes mellitus with diabetic peripheral angiopathy without gangrene; E11.42 Type 2 diabetes mellitus with diabetic polyneuropathy; Z79.01 Long term (current) use of anticoagulants; Z90.49 Acquired absence of other specified parts of digestive tract; Z79.899 Other long term (current) drug therapy; Z87.891 Personal history of nicotine dependence; Z86.73 Personal history of transient ischemic attack (TIA), and cerebral infarction without residual deficits; Z95.810 Presence of automatic (implantable) cardiac defibrillator
CPT/HCPCS: 36415; 82565; 83880; 84132; 84520; 96365; 96366; G0463; J1250; J1642

== ENCOUNTER → 2021-02-10 | Outpatient (CLI) | payer OTHER ==
[2021-02-10] VITALS (9 sets, daily range): BP systolic 99–122; BP diastolic 49–66
== END | disposition home or self-care (01) ==
LOC: CHF HDHVI 08:17
PROVIDERS: ATTEND Internal Medicine Cardiovascular Disease
DX: I13.2 Hypertensive heart and chronic kidney disease with heart failure and with stage 5 chronic kidney disease, or end stage renal disease (principal); E11.22 Type 2 diabetes mellitus with diabetic chronic kidney disease; I50.23 Acute on chronic systolic (congestive) heart failure; I50.84 End stage heart failure; N18.6 End stage renal disease; F41.9 Anxiety disorder, unspecified; I25.10 Atherosclerotic heart disease of native coronary artery without angina pectoris; F31.9 Bipolar disorder, unspecified; J44.9 Chronic obstructive pulmonary disease, unspecified; K21.9 Gastro-esophageal reflux disease without esophagitis; E78.5 Hyperlipidemia, unspecified; E03.9 Hypothyroidism, unspecified; I48.11 Longstanding persistent atrial fibrillation; I25.2 Old myocardial infarction; E11.42 Type 2 diabetes mellitus with diabetic polyneuropathy; E11.51 Type 2 diabetes mellitus with diabetic peripheral angiopathy without gangrene; E78.00 Pure hypercholesterolemia, unspecified; Z90.49 Acquired absence of other specified parts of digestive tract; Z79.01 Long term (current) use of anticoagulants; Z79.899 Other long term (current) drug therapy; Z87.891 Personal history of nicotine dependence; Z95.810 Presence of automatic (implantable) cardiac defibrillator; Z86.73 Personal history of transient ischemic attack (TIA), and cerebral infarction without residual deficits
CPT/HCPCS: 96365; 96366; G0463; J1250; J1642

== ENCOUNTER → 2021-02-12 | Outpatient (CLI) | payer OTHER ==
[2021-02-12] VITALS (9 sets, daily range): BP systolic 103–130; BP diastolic 51–78
== END | disposition home or self-care (01) ==
LOC: CHF HDHVI 08:11
PROVIDERS: ATTEND Internal Medicine Cardiovascular Disease
DX: I13.2 Hypertensive heart and chronic kidney disease with heart failure and with stage 5 chronic kidney disease, or end stage renal disease (principal); E11.22 Type 2 diabetes mellitus with diabetic chronic kidney disease; I50.23 Acute on chronic systolic (congestive) heart failure; I50.84 End stage heart failure; N18.6 End stage renal disease; F41.9 Anxiety disorder, unspecified; I25.10 Atherosclerotic heart disease of native coronary artery without angina pectoris; F31.9 Bipolar disorder, unspecified; J44.9 Chronic obstructive pulmonary disease, unspecified; I25.2 Old myocardial infarction; E78.00 Pure hypercholesterolemia, unspecified; E11.42 Type 2 diabetes mellitus with diabetic polyneuropathy; E11.51 Type 2 diabetes mellitus with diabetic peripheral angiopathy without gangrene; E03.9 Hypothyroidism, unspecified; Z79.01 Long term (current) use of anticoagulants; Z90.49 Acquired absence of other specified parts of digestive tract; Z87.891 Personal history of nicotine dependence; Z79.899 Other long term (current) drug therapy; Z95.810 Presence of automatic (implantable) cardiac defibrillator; Z86.73 Personal history of transient ischemic attack (TIA), and cerebral infarction without residual deficits
CPT/HCPCS: 96365; 96366; G0463; J1250; J1642

== ENCOUNTER → 2021-02-15 | Outpatient (CLI) | payer OTHER ==
[2021-02-15] VITALS (9 sets, daily range): BP systolic 108–122; BP diastolic 51–71
[~2021-02-15] MED LIST changes: +CATHFLO ACTIVASE (ALTEPLASE) 2 MG VIAL IV ONE; +STERILE WATER 10 ML ONE
[2021-02-15 12:07] LABS: Basophils # (auto) 0 10 ^3/uL (0-0.2); Basophils % (auto) 0.6 % (0.0-2.0); Eosinophils # (auto) 0.2 10 ^3/uL (0-0.8); Eosinophils % (auto) 7.4 % (0.0-7.0); Hematocrit 37.8 % (41.0-53.0); Hemoglobin 12.7 g/dL (13.5-17.5); Mean Corpuscular Hgb Conc. 33.6 g/dL (32.0-36.0); Mean Corpuscular Volume 95.3 fL (80.0-100.0); Neutrophils # (auto) 1.5 10 ^3/uL (1.6-8.6); Neutrophils % (auto) 44.6 % (37.0-80.0); Nucleated Red Blood Cells % 0.2 %; Platelet Count (auto) 135 10^3/uL (140-450); Red Blood Cells 3.96 10^6/uL (4.5-5.90); Red Cell Distribution Width 13.9 % (11.8-14.3); White Blood Cell 3.4 10^3/uL (4.4-10.8)
[2021-02-15 12:19] LABS: Potassium 4.2 mmol/L (3.5-5.1)
[2021-02-15 12:23] LABS: BUN/Creatinine Ratio 12.5; Calcium 8.7 mg/dL (8.5-10.1); Magnesium 2.5 mg/dL (1.6-2.6)
[2021-02-15 12:34] LABS: Lymphocytes # (auto) 1.1 10 ^3/uL (0.4-5.4); Lymphocytes % (auto) 29.9 % (10.0-50.0); Monocytes # (auto) 0.5 10 ^3/uL (0-1.3); Monocytes % (auto) 17.5 % (0.0-12.0)
== END | disposition home or self-care (01) ==
LOC: CHF HDHVI 08:36
PROVIDERS: ATTEND Internal Medicine Cardiovascular Disease
DX: I13.2 Hypertensive heart and chronic kidney disease with heart failure and with stage 5 chronic kidney disease, or end stage renal disease (principal); E11.22 Type 2 diabetes mellitus with diabetic chronic kidney disease; I50.23 Acute on chronic systolic (congestive) heart failure; I50.84 End stage heart failure; N18.6 End stage renal disease; F41.9 Anxiety disorder, unspecified; I25.10 Atherosclerotic heart disease of native coronary artery without angina pectoris; F31.9 Bipolar disorder, unspecified; J44.9 Chronic obstructive pulmonary disease, unspecified; K21.9 Gastro-esophageal reflux disease without esophagitis; E03.9 Hypothyroidism, unspecified; I48.11 Longstanding persistent atrial fibrillation; E78.00 Pure hypercholesterolemia, unspecified; E11.42 Type 2 diabetes mellitus with diabetic polyneuropathy; E11.51 Type 2 diabetes mellitus with diabetic peripheral angiopathy without gangrene; M17.12 Unilateral primary osteoarthritis, left knee; I25.2 Old myocardial infarction; Z79.899 Other long term (current) drug therapy; Z95.810 Presence of automatic (implantable) cardiac defibrillator; Z79.01 Long term (current) use of anticoagulants; Z90.49 Acquired absence of other specified parts of digestive tract; Z86.73 Personal history of transient ischemic attack (TIA), and cerebral infarction without residual deficits; Z87.891 Personal history of nicotine dependence
CPT/HCPCS: 36415; 36593; 80048; 83735; 83880; 85025; 96365; 96366; G0463; J1250; J1642; J2997; 96375

== ENCOUNTER → 2021-02-17 | Outpatient (CLI) | payer OTHER ==
[2021-02-17] VITALS (10 sets, daily range): BP systolic 105–141; BP diastolic 52–81
[~2021-02-17] MED LIST changes: -CATHFLO ACTIVASE (ALTEPLASE) 2 MG VIAL IV ONE; -STERILE WATER 10 ML ONE
== END | disposition home or self-care (01) ==
LOC: CHF HDHVI 07:57
PROVIDERS: ATTEND Internal Medicine Cardiovascular Disease
DX: I13.2 Hypertensive heart and chronic kidney disease with heart failure and with stage 5 chronic kidney disease, or end stage renal disease (principal); E11.22 Type 2 diabetes mellitus with diabetic chronic kidney disease; I50.42 Chronic combined systolic (congestive) and diastolic (congestive) heart failure; N18.6 End stage renal disease; I42.8 Other cardiomyopathies; I48.11 Longstanding persistent atrial fibrillation; I25.10 Atherosclerotic heart disease of native coronary artery without angina pectoris; I25.2 Old myocardial infarction; J44.9 Chronic obstructive pulmonary disease, unspecified; E11.42 Type 2 diabetes mellitus with diabetic polyneuropathy; E11.51 Type 2 diabetes mellitus with diabetic peripheral angiopathy without gangrene; E11.319 Type 2 diabetes mellitus with unspecified diabetic retinopathy without macular edema; E78.5 Hyperlipidemia, unspecified; E03.9 Hypothyroidism, unspecified; E78.00 Pure hypercholesterolemia, unspecified; F41.9 Anxiety disorder, unspecified; F31.9 Bipolar disorder, unspecified; M17.12 Unilateral primary osteoarthritis, left knee; Z79.01 Long term (current) use of anticoagulants; Z79.4 Long term (current) use of insulin; Z79.899 Other long term (current) drug therapy; Z87.891 Personal history of nicotine dependence; Z85.46 Personal history of malignant neoplasm of prostate; Z85.038 Personal history of other malignant neoplasm of large intestine; Z95.5 Presence of coronary angioplasty implant and graft; Z95.810 Presence of automatic (implantable) cardiac defibrillator; Z86.73 Personal history of transient ischemic attack (TIA), and cerebral infarction without residual deficits
CPT/HCPCS: 96365; 96366; G0463; J1250; J1642

== ENCOUNTER → 2021-02-22 | Outpatient (CLI) | payer OTHER ==
[2021-02-22] VITALS (9 sets, daily range): BP systolic 102–125; BP diastolic 46–67
[2021-02-22 12:45] LABS: Potassium 4.1 mmol/L (3.5-5.1)
== END | disposition home or self-care (01) ==
LOC: CHF HDHVI 08:12
PROVIDERS: ATTEND Internal Medicine Cardiovascular Disease
DX: E11.22 Type 2 diabetes mellitus with diabetic chronic kidney disease (principal); I13.2 Hypertensive heart and chronic kidney disease with heart failure and with stage 5 chronic kidney disease, or end stage renal disease; N18.6 End stage renal disease; I50.23 Acute on chronic systolic (congestive) heart failure; F41.9 Anxiety disorder, unspecified; I25.10 Atherosclerotic heart disease of native coronary artery without angina pectoris; F31.9 Bipolar disorder, unspecified; J44.9 Chronic obstructive pulmonary disease, unspecified; K21.9 Gastro-esophageal reflux disease without esophagitis; E03.9 Hypothyroidism, unspecified; I25.2 Old myocardial infarction; E78.00 Pure hypercholesterolemia, unspecified; E11.42 Type 2 diabetes mellitus with diabetic polyneuropathy; E78.5 Hyperlipidemia, unspecified; G89.29 Other chronic pain; I48.91 Unspecified atrial fibrillation; Z95.1 Presence of aortocoronary bypass graft; Z79.899 Other long term (current) drug therapy; Z79.01 Long term (current) use of anticoagulants; Z79.4 Long term (current) use of insulin; Z87.891 Personal history of nicotine dependence
CPT/HCPCS: 36415; 82565; 83880; 84132; 84520; 96365; 96366; G0463; J1250; J1642

== ENCOUNTER → 2021-02-24 | Outpatient (CLI) | payer OTHER ==
[2021-02-24] VITALS (9 sets, daily range): BP systolic 101–127; BP diastolic 50–71
[~2021-02-24] VITALS: Ht 30.5 cm; Wt 85.8 kg
== END | disposition home or self-care (01) ==
LOC: CHF HDHVI 08:13
PROVIDERS: ATTEND Internal Medicine Cardiovascular Disease
DX: I13.2 Hypertensive heart and chronic kidney disease with heart failure and with stage 5 chronic kidney disease, or end stage renal disease (principal); E11.22 Type 2 diabetes mellitus with diabetic chronic kidney disease; I50.42 Chronic combined systolic (congestive) and diastolic (congestive) heart failure; N18.6 End stage renal disease; I25.10 Atherosclerotic heart disease of native coronary artery without angina pectoris; I25.2 Old myocardial infarction; I42.8 Other cardiomyopathies; I48.11 Longstanding persistent atrial fibrillation; R53.83 Other fatigue; E11.51 Type 2 diabetes mellitus with diabetic peripheral angiopathy without gangrene; E11.319 Type 2 diabetes mellitus with unspecified diabetic retinopathy without macular edema; E11.42 Type 2 diabetes mellitus with diabetic polyneuropathy; K21.9 Gastro-esophageal reflux disease without esophagitis; E78.5 Hyperlipidemia, unspecified; E03.9 Hypothyroidism, unspecified; E78.00 Pure hypercholesterolemia, unspecified; G89.29 Other chronic pain; M17.12 Unilateral primary osteoarthritis, left knee; F41.9 Anxiety disorder, unspecified; F31.9 Bipolar disorder, unspecified; Z79.01 Long term (current) use of anticoagulants; Z79.4 Long term (current) use of insulin; Z87.891 Personal history of nicotine dependence; Z79.899 Other long term (current) drug therapy; Z95.810 Presence of automatic (implantable) cardiac defibrillator; Z95.5 Presence of coronary angioplasty implant and graft; Z85.46 Personal history of malignant neoplasm of prostate; Z85.038 Personal history of other malignant neoplasm of large intestine; Z86.73 Personal history of transient ischemic attack (TIA), and cerebral infarction without residual deficits
CPT/HCPCS: 96365; 96366; G0463; J1250; J1642

== ENCOUNTER → 2021-02-26 | Outpatient (CLI) | payer OTHER ==
[2021-02-26] VITALS (9 sets, daily range): BP systolic 109–136; BP diastolic 54–72
[~2021-02-26] MED LIST changes: +CYANOCOBALAMIN (B-12) 1000 MCG/1 ML VIAL IM ONE; +CYANOCOBALAMIN (B-12) 1000 MCG/1 ML VIAL ONE
== END | disposition home or self-care (01) ==
LOC: CHF HDHVI 07:57
PROVIDERS: ATTEND Internal Medicine Cardiovascular Disease
DX: I13.2 Hypertensive heart and chronic kidney disease with heart failure and with stage 5 chronic kidney disease, or end stage renal disease (principal); E11.22 Type 2 diabetes mellitus with diabetic chronic kidney disease; I50.42 Chronic combined systolic (congestive) and diastolic (congestive) heart failure; N18.6 End stage renal disease; I48.11 Longstanding persistent atrial fibrillation; I42.8 Other cardiomyopathies; R53.83 Other fatigue; I25.10 Atherosclerotic heart disease of native coronary artery without angina pectoris; I25.2 Old myocardial infarction; E11.51 Type 2 diabetes mellitus with diabetic peripheral angiopathy without gangrene; E11.319 Type 2 diabetes mellitus with unspecified diabetic retinopathy without macular edema; E11.42 Type 2 diabetes mellitus with diabetic polyneuropathy; K21.9 Gastro-esophageal reflux disease without esophagitis; E78.5 Hyperlipidemia, unspecified; E03.9 Hypothyroidism, unspecified; E78.00 Pure hypercholesterolemia, unspecified; G89.29 Other chronic pain; M17.12 Unilateral primary osteoarthritis, left knee; F41.9 Anxiety disorder, unspecified; F31.9 Bipolar disorder, unspecified; Z79.01 Long term (current) use of anticoagulants; Z79.4 Long term (current) use of insulin; Z87.891 Personal history of nicotine dependence; Z79.899 Other long term (current) drug therapy; Z95.810 Presence of automatic (implantable) cardiac defibrillator; Z95.5 Presence of coronary angioplasty implant and graft; Z85.46 Personal history of malignant neoplasm of prostate; Z85.038 Personal history of other malignant neoplasm of large intestine; Z86.73 Personal history of transient ischemic attack (TIA), and cerebral infarction without residual deficits
CPT/HCPCS: 96365; 96366; 96372; G0463; J1250; J1642; J3420

== ENCOUNTER → 2021-03-01 | Outpatient (CLI) | payer OTHER ==
[2021-03-01] VITALS (9 sets, daily range): BP systolic 94–124; BP diastolic 43–65
[~2021-03-01] MED LIST changes: -CYANOCOBALAMIN (B-12) 1000 MCG/1 ML VIAL IM ONE; -CYANOCOBALAMIN (B-12) 1000 MCG/1 ML VIAL ONE
[2021-03-01 12:11] LABS: Basophils # (auto) 0 10 ^3/uL (0-0.2); Basophils % (auto) 0.5 % (0.0-2.0); Eosinophils # (auto) 0.2 10 ^3/uL (0-0.8); Eosinophils % (auto) 5.7 % (0.0-7.0); Hematocrit 37.9 % (41.0-53.0); Hemoglobin 12.8 g/dL (13.5-17.5); Lymphocytes # (auto) 1.1 10 ^3/uL (0.4-5.4); Lymphocytes % (auto) 31.3 % (10.0-50.0); Mean Corpuscular Hemoglobin 32.4 pg (28.0-32.0); Mean Corpuscular Hgb Conc. 33.9 g/dL (32.0-36.0); Mean Corpuscular Volume 95.8 fL (80.0-100.0); Monocytes # (auto) 0.6 10 ^3/uL (0-1.3); Monocytes % (auto) 17.2 % (0.0-12.0); Neutrophils # (auto) 1.7 10 ^3/uL (1.6-8.6); Neutrophils % (auto) 45.3 % (37.0-80.0); Nucleated Red Blood Cells % 0.3 %; Platelet Count (auto) 128 10^3/uL (140-450); Red Blood Cells 3.95 10^6/uL (4.5-5.90); Red Cell Distribution Width 14.5 % (11.8-14.3); White Blood Cell 3.7 10^3/uL (4.4-10.8)
[2021-03-01 13:18] LABS: Calcium 8.9 mg/dL (8.5-10.1); Magnesium 2.5 mg/dL (1.6-2.6); Potassium 3.9 mmol/L (3.5-5.1)
[2021-03-01 13:21] LABS: BUN/Creatinine Ratio 15.2
== END | disposition home or self-care (01) ==
LOC: CHF HDHVI 08:07
PROVIDERS: ATTEND Internal Medicine Cardiovascular Disease
DX: I13.2 Hypertensive heart and chronic kidney disease with heart failure and with stage 5 chronic kidney disease, or end stage renal disease (principal); E11.22 Type 2 diabetes mellitus with diabetic chronic kidney disease; I50.42 Chronic combined systolic (congestive) and diastolic (congestive) heart failure; N18.6 End stage renal disease; I48.11 Longstanding persistent atrial fibrillation; I42.8 Other cardiomyopathies; R53.83 Other fatigue; I25.10 Atherosclerotic heart disease of native coronary artery without angina pectoris; I25.2 Old myocardial infarction; E11.42 Type 2 diabetes mellitus with diabetic polyneuropathy; E11.319 Type 2 diabetes mellitus with unspecified diabetic retinopathy without macular edema; E11.51 Type 2 diabetes mellitus with diabetic peripheral angiopathy without gangrene; K21.9 Gastro-esophageal reflux disease without esophagitis; E78.5 Hyperlipidemia, unspecified; E03.9 Hypothyroidism, unspecified; E78.00 Pure hypercholesterolemia, unspecified; F41.9 Anxiety disorder, unspecified; F31.9 Bipolar disorder, unspecified; G89.29 Other chronic pain; Z79.4 Long term (current) use of insulin; Z79.01 Long term (current) use of anticoagulants; Z79.899 Other long term (current) drug therapy; Z87.891 Personal history of nicotine dependence; Z95.810 Presence of automatic (implantable) cardiac defibrillator; Z95.5 Presence of coronary angioplasty implant and graft; Z85.46 Personal history of malignant neoplasm of prostate; Z85.038 Personal history of other malignant neoplasm of large intestine; Z86.73 Personal history of transient ischemic attack (TIA), and cerebral infarction without residual deficits
CPT/HCPCS: 36415; 80048; 83735; 83880; 85025; 96365; 96366; G0463; J1250; J1642

== ENCOUNTER → 2021-03-05 | Outpatient (CLI) | payer OTHER ==
[~2021-03-05] VITALS: Ht 30.5 cm; Wt 85.9 kg
[2021-03-05] VITALS (9 sets, daily range): BP systolic 99–132; BP diastolic 57–76
== END | disposition home or self-care (01) ==
LOC: CHF HDHVI 08:10
PROVIDERS: ATTEND Internal Medicine Cardiovascular Disease
DX: I13.2 Hypertensive heart and chronic kidney disease with heart failure and with stage 5 chronic kidney disease, or end stage renal disease (principal); E11.22 Type 2 diabetes mellitus with diabetic chronic kidney disease; I50.23 Acute on chronic systolic (congestive) heart failure; N18.6 End stage renal disease; F41.9 Anxiety disorder, unspecified; I25.10 Atherosclerotic heart disease of native coronary artery without angina pectoris; F31.9 Bipolar disorder, unspecified; J44.9 Chronic obstructive pulmonary disease, unspecified; I48.11 Longstanding persistent atrial fibrillation; I25.2 Old myocardial infarction; E78.00 Pure hypercholesterolemia, unspecified; E11.42 Type 2 diabetes mellitus with diabetic polyneuropathy; E11.51 Type 2 diabetes mellitus with diabetic peripheral angiopathy without gangrene; K21.9 Gastro-esophageal reflux disease without esophagitis; E78.5 Hyperlipidemia, unspecified; E03.9 Hypothyroidism, unspecified; Z79.01 Long term (current) use of anticoagulants; Z79.899 Other long term (current) drug therapy; Z79.4 Long term (current) use of insulin; Z90.49 Acquired absence of other specified parts of digestive tract; Z87.891 Personal history of nicotine dependence; Z95.810 Presence of automatic (implantable) cardiac defibrillator; Z86.73 Personal history of transient ischemic attack (TIA), and cerebral infarction without residual deficits
CPT/HCPCS: 96365; 96366; G0463; J1250; J1642

== ENCOUNTER → 2021-03-08 | Outpatient (CLI) | payer OTHER ==
[2021-03-08] VITALS (9 sets, daily range): BP systolic 104–134; BP diastolic 51–73
[2021-03-08 12:03] LABS: Potassium 4.4 mmol/L (3.5-5.1)
[2021-03-08 12:25] LABS: Basophils # (auto) 0 10 ^3/uL (0-0.2); Basophils % (auto) 0.8 % (0.0-2.0); Eosinophils # (auto) 0.1 10 ^3/uL (0-0.8); Eosinophils % (auto) 4.1 % (0.0-7.0); Hematocrit 41.5 % (41.0-53.0); Hemoglobin 13.7 g/dL (13.5-17.5); Lymphocytes # (auto) 1.1 10 ^3/uL (0.4-5.4); Lymphocytes % (auto) 35.4 % (10.0-50.0); Mean Corpuscular Hemoglobin 31.8 pg (28.0-32.0); Mean Corpuscular Hgb Conc. 33.1 g/dL (32.0-36.0); Mean Corpuscular Volume 95.9 fL (80.0-100.0); Monocytes # (auto) 0.6 10 ^3/uL (0-1.3); Neutrophils # (auto) 1.2 10 ^3/uL (1.6-8.6); Neutrophils % (auto) 39.7 % (37.0-80.0); Nucleated Red Blood Cells % 0.2 %; Platelet Count (auto) 135 10^3/uL (140-450); Red Blood Cells 4.33 10^6/uL (4.5-5.90); Red Cell Distribution Width 14.2 % (11.8-14.3); White Blood Cell 3.1 10^3/uL (4.4-10.8)
[2021-03-08 12:45] LABS: INR 1.19 (0.9-1.15); Partial Thromboplastin Time 31.6 sec (23.0-31.2)
== END | disposition home or self-care (01) ==
LOC: CHF HDHVI 08:01
PROVIDERS: ATTEND Internal Medicine Cardiovascular Disease
DX: I13.2 Hypertensive heart and chronic kidney disease with heart failure and with stage 5 chronic kidney disease, or end stage renal disease (principal); E11.22 Type 2 diabetes mellitus with diabetic chronic kidney disease; I50.23 Acute on chronic systolic (congestive) heart failure; N18.6 End stage renal disease; F41.9 Anxiety disorder, unspecified; I25.10 Atherosclerotic heart disease of native coronary artery without angina pectoris; F31.9 Bipolar disorder, unspecified; J44.9 Chronic obstructive pulmonary disease, unspecified; K21.9 Gastro-esophageal reflux disease without esophagitis; I48.11 Longstanding persistent atrial fibrillation; E78.00 Pure hypercholesterolemia, unspecified; E11.42 Type 2 diabetes mellitus with diabetic polyneuropathy; E11.51 Type 2 diabetes mellitus with diabetic peripheral angiopathy without gangrene; I25.2 Old myocardial infarction; E03.9 Hypothyroidism, unspecified; Z79.01 Long term (current) use of anticoagulants; Z79.4 Long term (current) use of insulin; Z90.49 Acquired absence of other specified parts of digestive tract; Z79.899 Other long term (current) drug therapy; Z86.73 Personal history of transient ischemic attack (TIA), and cerebral infarction without residual deficits; Z95.810 Presence of automatic (implantable) cardiac defibrillator
CPT/HCPCS: 36415; 82565; 83880; 84132; 84520; 85025; 85610; 85730; 96365; 96366; G0463; J1250; J1642

== ENCOUNTER → 2021-03-12 | Outpatient (CLI) | payer OTHER ==
[2021-03-12] VITALS (9 sets, daily range): BP systolic 100–127; BP diastolic 46–76
[~2021-03-12] MED LIST changes: +BACITRACIN TOP OINT 1 UD PKG TOP ONE
[2021-03-12 11:44] LABS: BUN/Creatinine Ratio 12.9; Calcium 9.4 mg/dL (8.5-10.1); Magnesium 2.8 mg/dL (1.6-2.6); Potassium 4.6 mmol/L (3.5-5.1)
[2021-03-12 12:00] LABS: Basophils # (auto) 0 10 ^3/uL (0-0.2); Basophils % (auto) 0.5 % (0.0-2.0); Eosinophils # (auto) 0.2 10 ^3/uL (0-0.8); Hematocrit 41.8 % (41.0-53.0); Hemoglobin 14.2 g/dL (13.5-17.5); Lymphocytes # (auto) 1.7 10 ^3/uL (0.4-5.4); Lymphocytes % (auto) 42.4 % (10.0-50.0); Mean Corpuscular Hemoglobin 32.6 pg (28.0-32.0); Mean Corpuscular Volume 95.9 fL (80.0-100.0); Monocytes # (auto) 0.7 10 ^3/uL (0-1.3); Monocytes % (auto) 17.3 % (0.0-12.0); Neutrophils # (auto) 1.3 10 ^3/uL (1.6-8.6); Neutrophils % (auto) 33.8 % (37.0-80.0); Platelet Count (auto) 145 10^3/uL (140-450); Red Blood Cells 4.36 10^6/uL (4.5-5.90); Red Cell Distribution Width 14.5 % (11.8-14.3); White Blood Cell 3.9 10^3/uL (4.4-10.8)
== END | disposition home or self-care (01) ==
LOC: CHF HDHVI 08:01
PROVIDERS: ATTEND Internal Medicine Cardiovascular Disease
DX: I13.2 Hypertensive heart and chronic kidney disease with heart failure and with stage 5 chronic kidney disease, or end stage renal disease (principal); E11.22 Type 2 diabetes mellitus with diabetic chronic kidney disease; I50.23 Acute on chronic systolic (congestive) heart failure; N18.6 End stage renal disease; F41.9 Anxiety disorder, unspecified; I25.10 Atherosclerotic heart disease of native coronary artery without angina pectoris; F31.9 Bipolar disorder, unspecified; J44.9 Chronic obstructive pulmonary disease, unspecified; K21.9 Gastro-esophageal reflux disease without esophagitis; E03.9 Hypothyroidism, unspecified; I48.11 Longstanding persistent atrial fibrillation; I25.2 Old myocardial infarction; E78.00 Pure hypercholesterolemia, unspecified; M17.12 Unilateral primary osteoarthritis, left knee; E11.42 Type 2 diabetes mellitus with diabetic polyneuropathy; E11.51 Type 2 diabetes mellitus with diabetic peripheral angiopathy without gangrene; Z79.01 Long term (current) use of anticoagulants; Z79.4 Long term (current) use of insulin; Z79.899 Other long term (current) drug therapy; Z90.49 Acquired absence of other specified parts of digestive tract; Z95.810 Presence of automatic (implantable) cardiac defibrillator; Z86.73 Personal history of transient ischemic attack (TIA), and cerebral infarction without residual deficits; Z87.891 Personal history of nicotine dependence
CPT/HCPCS: 36415; 80048; 83735; 83880; 85025; 96365; 96366; G0463; J1250

== ENCOUNTER → 2021-03-15 | Outpatient (CLI) | payer OTHER ==
[2021-03-15] VITALS (9 sets, daily range): BP systolic 94–122; BP diastolic 47–66
[~2021-03-15] VITALS: Ht 30.5 cm; Wt 84.9 kg
== END | disposition home or self-care (01) ==
LOC: CHF HDHVI 07:58
PROVIDERS: ATTEND Internal Medicine Cardiovascular Disease
DX: I13.2 Hypertensive heart and chronic kidney disease with heart failure and with stage 5 chronic kidney disease, or end stage renal disease (principal); E11.22 Type 2 diabetes mellitus with diabetic chronic kidney disease; I50.23 Acute on chronic systolic (congestive) heart failure; I50.84 End stage heart failure; N18.6 End stage renal disease; F41.9 Anxiety disorder, unspecified; I25.10 Atherosclerotic heart disease of native coronary artery without angina pectoris; F31.9 Bipolar disorder, unspecified; J44.9 Chronic obstructive pulmonary disease, unspecified; K21.9 Gastro-esophageal reflux disease without esophagitis; E03.9 Hypothyroidism, unspecified; I48.11 Longstanding persistent atrial fibrillation; I25.2 Old myocardial infarction; E78.00 Pure hypercholesterolemia, unspecified; E11.42 Type 2 diabetes mellitus with diabetic polyneuropathy; E78.5 Hyperlipidemia, unspecified; E11.51 Type 2 diabetes mellitus with diabetic peripheral angiopathy without gangrene; M17.12 Unilateral primary osteoarthritis, left knee; Z79.01 Long term (current) use of anticoagulants; Z79.899 Other long term (current) drug therapy; Z87.891 Personal history of nicotine dependence; Z95.810 Presence of automatic (implantable) cardiac defibrillator; Z86.73 Personal history of transient ischemic attack (TIA), and cerebral infarction without residual deficits; Z90.49 Acquired absence of other specified parts of digestive tract; Z79.4 Long term (current) use of insulin
CPT/HCPCS: 96365; 96366; G0463; J1250

== ENCOUNTER → 2021-03-17 | Outpatient (CLI) | payer OTHER ==
[2021-03-17] VITALS (9 sets, daily range): BP systolic 104–121; BP diastolic 43–74
[~2021-03-17] VITALS: Ht 30.5 cm; Wt 85.4 kg
[2021-03-17 12:18] LABS: Potassium 4.1 mmol/L (3.5-5.1)
== END | disposition home or self-care (01) ==
LOC: CHF HDHVI 07:58
PROVIDERS: ATTEND Internal Medicine Cardiovascular Disease
DX: I13.2 Hypertensive heart and chronic kidney disease with heart failure and with stage 5 chronic kidney disease, or end stage renal disease (principal); E11.22 Type 2 diabetes mellitus with diabetic chronic kidney disease; I50.42 Chronic combined systolic (congestive) and diastolic (congestive) heart failure; N18.6 End stage renal disease; I48.11 Longstanding persistent atrial fibrillation; I42.8 Other cardiomyopathies; R53.83 Other fatigue; I25.10 Atherosclerotic heart disease of native coronary artery without angina pectoris; I25.2 Old myocardial infarction; E11.51 Type 2 diabetes mellitus with diabetic peripheral angiopathy without gangrene; E11.319 Type 2 diabetes mellitus with unspecified diabetic retinopathy without macular edema; E11.42 Type 2 diabetes mellitus with diabetic polyneuropathy; K21.9 Gastro-esophageal reflux disease without esophagitis; E78.5 Hyperlipidemia, unspecified; E03.9 Hypothyroidism, unspecified; E78.00 Pure hypercholesterolemia, unspecified; G89.29 Other chronic pain; M17.12 Unilateral primary osteoarthritis, left knee; F41.9 Anxiety disorder, unspecified; F31.9 Bipolar disorder, unspecified; Z79.4 Long term (current) use of insulin; Z79.01 Long term (current) use of anticoagulants; Z87.891 Personal history of nicotine dependence; Z79.899 Other long term (current) drug therapy; Z95.810 Presence of automatic (implantable) cardiac defibrillator; Z95.5 Presence of coronary angioplasty implant and graft; Z85.46 Personal history of malignant neoplasm of prostate; Z85.038 Personal history of other malignant neoplasm of large intestine; Z86.73 Personal history of transient ischemic attack (TIA), and cerebral infarction without residual deficits
CPT/HCPCS: 36415; 82565; 83880; 84132; 84520; 96365; 96366; G0463; J1250

== ENCOUNTER → 2021-03-19 | Outpatient (CLI) | payer OTHER ==
[2021-03-19] VITALS (9 sets, daily range): BP systolic 96–137; BP diastolic 53–76
== END | disposition home or self-care (01) ==
LOC: CHF HDHVI 08:03
PROVIDERS: ATTEND Internal Medicine Cardiovascular Disease
DX: I13.2 Hypertensive heart and chronic kidney disease with heart failure and with stage 5 chronic kidney disease, or end stage renal disease (principal); E11.22 Type 2 diabetes mellitus with diabetic chronic kidney disease; I50.42 Chronic combined systolic (congestive) and diastolic (congestive) heart failure; N18.6 End stage renal disease; I48.11 Longstanding persistent atrial fibrillation; I42.8 Other cardiomyopathies; I25.10 Atherosclerotic heart disease of native coronary artery without angina pectoris; I25.2 Old myocardial infarction; J44.9 Chronic obstructive pulmonary disease, unspecified; K21.9 Gastro-esophageal reflux disease without esophagitis; E11.319 Type 2 diabetes mellitus with unspecified diabetic retinopathy without macular edema; E11.42 Type 2 diabetes mellitus with diabetic polyneuropathy; E11.51 Type 2 diabetes mellitus with diabetic peripheral angiopathy without gangrene; E78.5 Hyperlipidemia, unspecified; E03.9 Hypothyroidism, unspecified; E78.00 Pure hypercholesterolemia, unspecified; G89.29 Other chronic pain; F41.9 Anxiety disorder, unspecified; F31.9 Bipolar disorder, unspecified; M17.12 Unilateral primary osteoarthritis, left knee; Z79.4 Long term (current) use of insulin; Z79.01 Long term (current) use of anticoagulants; Z79.899 Other long term (current) drug therapy; Z87.891 Personal history of nicotine dependence; Z85.46 Personal history of malignant neoplasm of prostate; Z85.038 Personal history of other malignant neoplasm of large intestine; Z95.5 Presence of coronary angioplasty implant and graft; Z95.810 Presence of automatic (implantable) cardiac defibrillator; Z86.73 Personal history of transient ischemic attack (TIA), and cerebral infarction without residual deficits
CPT/HCPCS: 96365; 96366; G0463; J1250

== ENCOUNTER → 2021-03-22 | Outpatient (CLI) | payer OTHER ==
[2021-03-22] VITALS (9 sets, daily range): BP systolic 107–130; BP diastolic 54–74
[2021-03-22 11:59] LABS: Hematocrit 41.5 % (41.0-53.0); Hemoglobin 13.7 g/dL (13.5-17.5); Mean Corpuscular Hgb Conc. 33.1 g/dL (32.0-36.0); Mean Corpuscular Volume 96.6 fL (80.0-100.0); Platelet Count (auto) 132 10^3/uL (140-450); Red Cell Distribution Width 14.3 % (11.8-14.3); White Blood Cell 4.6 10^3/uL (4.4-10.8)
[2021-03-22 12:11] LABS: Band Neutrophils % (manual) 0; Basophils % (manual) 0 (0.0-2.0); Blast Cells 0; Metamyelocytes % 0; Myelocytes % 0; Promyelocytes % 0; Reactive Lymphocytes 0
[2021-03-22 12:15] LABS: Potassium 4.4 mmol/L (3.5-5.1)
[2021-03-22 12:27] LABS: BUN/Creatinine Ratio 13.6; Calcium 8.9 mg/dL (8.5-10.1); Eosinophils % (manual) 1 (0-7); Lymphocytes % (manual) 46 (10.0-50.0); Magnesium 2.8 mg/dL (1.6-2.6); Monocytes % (manual) 9 (0-12)
== END | disposition home or self-care (01) ==
LOC: CHF HDHVI 08:05
PROVIDERS: ATTEND Internal Medicine Cardiovascular Disease
DX: I13.2 Hypertensive heart and chronic kidney disease with heart failure and with stage 5 chronic kidney disease, or end stage renal disease (principal); E11.22 Type 2 diabetes mellitus with diabetic chronic kidney disease; I50.42 Chronic combined systolic (congestive) and diastolic (congestive) heart failure; N18.6 End stage renal disease; I48.91 Unspecified atrial fibrillation; I42.8 Other cardiomyopathies; I25.10 Atherosclerotic heart disease of native coronary artery without angina pectoris; I25.2 Old myocardial infarction; E11.42 Type 2 diabetes mellitus with diabetic polyneuropathy; E11.51 Type 2 diabetes mellitus with diabetic peripheral angiopathy without gangrene; E11.319 Type 2 diabetes mellitus with unspecified diabetic retinopathy without macular edema; E78.5 Hyperlipidemia, unspecified; E78.00 Pure hypercholesterolemia, unspecified; E03.9 Hypothyroidism, unspecified; G89.29 Other chronic pain; M17.12 Unilateral primary osteoarthritis, left knee; F41.9 Anxiety disorder, unspecified; F31.9 Bipolar disorder, unspecified; Z79.899 Other long term (current) drug therapy; Z87.891 Personal history of nicotine dependence; Z79.4 Long term (current) use of insulin; Z79.82 Long term (current) use of aspirin; Z79.01 Long term (current) use of anticoagulants; Z95.810 Presence of automatic (implantable) cardiac defibrillator; Z95.5 Presence of coronary angioplasty implant and graft; Z85.46 Personal history of malignant neoplasm of prostate; Z85.038 Personal history of other malignant neoplasm of large intestine; Z86.73 Personal history of transient ischemic attack (TIA), and cerebral infarction without residual deficits
CPT/HCPCS: 36415; 80048; 83735; 83880; 85007; 85027; 96365; 96366; G0463; J1250

== ENCOUNTER → 2021-03-24 | Outpatient (CLI) | payer OTHER ==
[2021-03-24] VITALS (9 sets, daily range): BP systolic 113–128; BP diastolic 59–76
[~2021-03-24] MED LIST changes: -BACITRACIN TOP OINT 1 UD PKG TOP ONE
== END | disposition home or self-care (01) ==
LOC: CHF HDHVI 07:55
PROVIDERS: ATTEND Internal Medicine Cardiovascular Disease
DX: I13.2 Hypertensive heart and chronic kidney disease with heart failure and with stage 5 chronic kidney disease, or end stage renal disease (principal); E11.22 Type 2 diabetes mellitus with diabetic chronic kidney disease; I50.42 Chronic combined systolic (congestive) and diastolic (congestive) heart failure; N18.6 End stage renal disease; I42.8 Other cardiomyopathies; I48.11 Longstanding persistent atrial fibrillation; I25.10 Atherosclerotic heart disease of native coronary artery without angina pectoris; I25.2 Old myocardial infarction; J44.9 Chronic obstructive pulmonary disease, unspecified; R53.83 Other fatigue; K21.9 Gastro-esophageal reflux disease without esophagitis; E11.42 Type 2 diabetes mellitus with diabetic polyneuropathy; E11.319 Type 2 diabetes mellitus with unspecified diabetic retinopathy without macular edema; E11.51 Type 2 diabetes mellitus with diabetic peripheral angiopathy without gangrene; E78.5 Hyperlipidemia, unspecified; E03.9 Hypothyroidism, unspecified; E78.00 Pure hypercholesterolemia, unspecified; G89.29 Other chronic pain; M17.12 Unilateral primary osteoarthritis, left knee; F41.9 Anxiety disorder, unspecified; F31.9 Bipolar disorder, unspecified; Z79.4 Long term (current) use of insulin; Z79.82 Long term (current) use of aspirin; Z79.01 Long term (current) use of anticoagulants; Z79.899 Other long term (current) drug therapy; Z87.891 Personal history of nicotine dependence; Z95.810 Presence of automatic (implantable) cardiac defibrillator; Z95.5 Presence of coronary angioplasty implant and graft; Z85.038 Personal history of other malignant neoplasm of large intestine; Z85.46 Personal history of malignant neoplasm of prostate; Z86.73 Personal history of transient ischemic attack (TIA), and cerebral infarction without residual deficits
CPT/HCPCS: 96365; 96366; G0463; J1250

== ENCOUNTER → 2021-03-26 | Outpatient (CLI) | payer OTHER ==
[2021-03-26] VITALS (8 sets, daily range): BP systolic 107–120; BP diastolic 57–71
[~2021-03-26] MED LIST changes: +CYANOCOBALAMIN (B-12) 1000 MCG/1 ML VIAL IM ONE; +CYANOCOBALAMIN (B-12) 1000 MCG/1 ML VIAL ONE
== END | disposition home or self-care (01) ==
LOC: CHF HDHVI 07:55
PROVIDERS: ATTEND Internal Medicine Cardiovascular Disease
DX: I13.2 Hypertensive heart and chronic kidney disease with heart failure and with stage 5 chronic kidney disease, or end stage renal disease (principal); E11.22 Type 2 diabetes mellitus with diabetic chronic kidney disease; I50.42 Chronic combined systolic (congestive) and diastolic (congestive) heart failure; N18.6 End stage renal disease; I48.11 Longstanding persistent atrial fibrillation; I42.8 Other cardiomyopathies; I25.10 Atherosclerotic heart disease of native coronary artery without angina pectoris; I25.2 Old myocardial infarction; J44.9 Chronic obstructive pulmonary disease, unspecified; K21.9 Gastro-esophageal reflux disease without esophagitis; E11.42 Type 2 diabetes mellitus with diabetic polyneuropathy; E11.51 Type 2 diabetes mellitus with diabetic peripheral angiopathy without gangrene; E11.319 Type 2 diabetes mellitus with unspecified diabetic retinopathy without macular edema; E78.5 Hyperlipidemia, unspecified; E03.9 Hypothyroidism, unspecified; E78.00 Pure hypercholesterolemia, unspecified; M17.12 Unilateral primary osteoarthritis, left knee; G89.29 Other chronic pain; F41.9 Anxiety disorder, unspecified; F31.9 Bipolar disorder, unspecified; Z79.01 Long term (current) use of anticoagulants; Z79.82 Long term (current) use of aspirin; Z79.4 Long term (current) use of insulin; Z79.899 Other long term (current) drug therapy; Z87.891 Personal history of nicotine dependence; Z95.810 Presence of automatic (implantable) cardiac defibrillator; Z95.5 Presence of coronary angioplasty implant and graft; Z85.038 Personal history of other malignant neoplasm of large intestine; Z85.46 Personal history of malignant neoplasm of prostate; Z86.73 Personal history of transient ischemic attack (TIA), and cerebral infarction without residual deficits
CPT/HCPCS: 96365; 96366; 96372; G0463; J1250; J3420

== ENCOUNTER → 2021-03-29 | Outpatient (CLI) | payer OTHER ==
[2021-03-29] VITALS (8 sets, daily range): BP systolic 111–130; BP diastolic 56–75
[~2021-03-29] VITALS: Ht 30.5 cm; Wt 86.4 kg
[~2021-03-29] MED LIST changes: -CYANOCOBALAMIN (B-12) 1000 MCG/1 ML VIAL IM ONE; -CYANOCOBALAMIN (B-12) 1000 MCG/1 ML VIAL ONE
[2021-03-29 11:59] LABS: Basophils # (auto) 0 10 ^3/uL (0-0.2); Basophils % (auto) 0.7 % (0.0-2.0); Eosinophils # (auto) 0.2 10 ^3/uL (0-0.8); Hematocrit 41.6 % (41.0-53.0); Hemoglobin 13.7 g/dL (13.5-17.5); Mean Corpuscular Hemoglobin 31.9 pg (28.0-32.0); Mean Corpuscular Volume 96.6 fL (80.0-100.0); Neutrophils # (auto) 1.4 10 ^3/uL (1.6-8.6); Neutrophils % (auto) 35.5 % (37.0-80.0); Nucleated Red Blood Cells % 0.1 %; Platelet Count (auto) 149 10^3/uL (140-450); Red Cell Distribution Width 14.9 % (11.8-14.3); White Blood Cell 3.8 10^3/uL (4.4-10.8)
[2021-03-29 12:23] LABS: Lymphocytes # (auto) 1.6 10 ^3/uL (0.4-5.4); Lymphocytes % (auto) 41.5 % (10.0-50.0); Monocytes # (auto) 0.6 10 ^3/uL (0-1.3); Monocytes % (auto) 17.3 % (0.0-12.0)
[2021-03-29 12:27] LABS: Potassium 4.4 mmol/L (3.5-5.1)
[2021-03-29 12:30] LABS: BUN/Creatinine Ratio 14.2; Calcium 9.1 mg/dL (8.5-10.1)
== END | disposition home or self-care (01) ==
LOC: CHF HDHVI 07:57
PROVIDERS: ATTEND Internal Medicine Cardiovascular Disease
DX: I13.2 Hypertensive heart and chronic kidney disease with heart failure and with stage 5 chronic kidney disease, or end stage renal disease (principal); E11.22 Type 2 diabetes mellitus with diabetic chronic kidney disease; I50.42 Chronic combined systolic (congestive) and diastolic (congestive) heart failure; N18.6 End stage renal disease; I25.10 Atherosclerotic heart disease of native coronary artery without angina pectoris; I25.2 Old myocardial infarction; I48.11 Longstanding persistent atrial fibrillation; I42.8 Other cardiomyopathies; J44.9 Chronic obstructive pulmonary disease, unspecified; E11.42 Type 2 diabetes mellitus with diabetic polyneuropathy; E11.51 Type 2 diabetes mellitus with diabetic peripheral angiopathy without gangrene; E11.319 Type 2 diabetes mellitus with unspecified diabetic retinopathy without macular edema; K21.9 Gastro-esophageal reflux disease without esophagitis; E78.5 Hyperlipidemia, unspecified; E03.9 Hypothyroidism, unspecified; E78.00 Pure hypercholesterolemia, unspecified; M17.12 Unilateral primary osteoarthritis, left knee; G89.29 Other chronic pain; F41.9 Anxiety disorder, unspecified; F31.9 Bipolar disorder, unspecified; Z87.891 Personal history of nicotine dependence; Z79.899 Other long term (current) drug therapy; Z79.4 Long term (current) use of insulin; Z79.82 Long term (current) use of aspirin; Z95.810 Presence of automatic (implantable) cardiac defibrillator; Z95.5 Presence of coronary angioplasty implant and graft; Z85.46 Personal history of malignant neoplasm of prostate; Z85.038 Personal history of other malignant neoplasm of large intestine; Z90.49 Acquired absence of other specified parts of digestive tract; Z86.73 Personal history of transient ischemic attack (TIA), and cerebral infarction without residual deficits
CPT/HCPCS: 36415; 80048; 83880; 85025; 96365; 96366; G0463; J1250

== ENCOUNTER → 2021-04-02 | Outpatient (CLI) | payer OTHER ==
[~2021-04-02] VITALS: Ht 30.5 cm; Wt 85.0 kg
[2021-04-02] VITALS (11 sets, daily range): BP systolic 103–128; BP diastolic 50–79
== END | disposition home or self-care (01) ==
LOC: CHF HDHVI 08:20
PROVIDERS: ATTEND Internal Medicine Cardiovascular Disease
DX: I13.2 Hypertensive heart and chronic kidney disease with heart failure and with stage 5 chronic kidney disease, or end stage renal disease (principal); I50.23 Acute on chronic systolic (congestive) heart failure; I48.91 Unspecified atrial fibrillation; R53.83 Other fatigue; F41.9 Anxiety disorder, unspecified; E11.22 Type 2 diabetes mellitus with diabetic chronic kidney disease; N18.6 End stage renal disease; I25.10 Atherosclerotic heart disease of native coronary artery without angina pectoris; I25.2 Old myocardial infarction; I48.11 Longstanding persistent atrial fibrillation; J44.9 Chronic obstructive pulmonary disease, unspecified; E78.5 Hyperlipidemia, unspecified; E03.9 Hypothyroidism, unspecified; G89.29 Other chronic pain; E78.00 Pure hypercholesterolemia, unspecified; E11.42 Type 2 diabetes mellitus with diabetic polyneuropathy; E11.51 Type 2 diabetes mellitus with diabetic peripheral angiopathy without gangrene; Z79.01 Long term (current) use of anticoagulants; Z79.4 Long term (current) use of insulin; Z79.82 Long term (current) use of aspirin; Z79.899 Other long term (current) drug therapy; Z85.038 Personal history of other malignant neoplasm of large intestine; Z85.46 Personal history of malignant neoplasm of prostate; Z95.1 Presence of aortocoronary bypass graft; Z87.891 Personal history of nicotine dependence
CPT/HCPCS: 96365; 96366; G0463; J1250

== ENCOUNTER → 2021-04-09 | Outpatient (CLI) | payer OTHER ==
[2021-04-09] VITALS (10 sets, daily range): BP systolic 99–113; BP diastolic 40–68
[~2021-04-09] MED LIST changes: -DOBUTamine 1000MCG/ML 250 ML IV ONE; +MILRINONE 20MG/100ML 100 ML IV ONE
== END | disposition home or self-care (01) ==
LOC: CHF HDHVI 07:56
PROVIDERS: ATTEND Internal Medicine Cardiovascular Disease
DX: I13.2 Hypertensive heart and chronic kidney disease with heart failure and with stage 5 chronic kidney disease, or end stage renal disease (principal); E11.22 Type 2 diabetes mellitus with diabetic chronic kidney disease; I50.42 Chronic combined systolic (congestive) and diastolic (congestive) heart failure; N18.6 End stage renal disease; I48.11 Longstanding persistent atrial fibrillation; I42.8 Other cardiomyopathies; R53.83 Other fatigue; I25.10 Atherosclerotic heart disease of native coronary artery without angina pectoris; I25.2 Old myocardial infarction; J44.9 Chronic obstructive pulmonary disease, unspecified; E11.51 Type 2 diabetes mellitus with diabetic peripheral angiopathy without gangrene; E11.42 Type 2 diabetes mellitus with diabetic polyneuropathy; E11.319 Type 2 diabetes mellitus with unspecified diabetic retinopathy without macular edema; K21.9 Gastro-esophageal reflux disease without esophagitis; M17.12 Unilateral primary osteoarthritis, left knee; G89.29 Other chronic pain; E78.5 Hyperlipidemia, unspecified; E78.00 Pure hypercholesterolemia, unspecified; E03.9 Hypothyroidism, unspecified; F41.9 Anxiety disorder, unspecified; F31.9 Bipolar disorder, unspecified; Z79.01 Long term (current) use of anticoagulants; Z79.4 Long term (current) use of insulin; Z79.82 Long term (current) use of aspirin; Z79.899 Other long term (current) drug therapy; Z87.891 Personal history of nicotine dependence; Z95.810 Presence of automatic (implantable) cardiac defibrillator; Z95.5 Presence of coronary angioplasty implant and graft; Z85.46 Personal history of malignant neoplasm of prostate; Z85.038 Personal history of other malignant neoplasm of large intestine; Z86.73 Personal history of transient ischemic attack (TIA), and cerebral infarction without residual deficits
CPT/HCPCS: 96365; 96366; G0463; J2260

== ENCOUNTER → 2021-04-12 | Outpatient (CLI) | payer OTHER ==
[2021-04-12] VITALS (11 sets, daily range): BP systolic 107–123; BP diastolic 62–78
[~2021-04-12] MED LIST changes: +KETOROLAC TROMETH 30 MG/ML 1ML VIAL IV ONE; +KETOROLAC TROMETH 60MG/2ML VIAL IM ONE; +KETOROLAC TROMETH 60MG/2ML VIAL ONE
[2021-04-12 11:55] LABS: Basophils # (auto) 0 10 ^3/uL (0-0.2); Basophils % (auto) 0.6 % (0.0-2.0); Eosinophils # (auto) 0.1 10 ^3/uL (0-0.8); Eosinophils % (auto) 2.8 % (0.0-7.0); Hematocrit 42.1 % (41.0-53.0); Hemoglobin 14.1 g/dL (13.5-17.5); Lymphocytes # (auto) 1.5 10 ^3/uL (0.4-5.4); Lymphocytes % (auto) 37.1 % (10.0-50.0); Mean Corpuscular Hemoglobin 32.1 pg (28.0-32.0); Mean Corpuscular Hgb Conc. 33.5 g/dL (32.0-36.0); Mean Corpuscular Volume 95.9 fL (80.0-100.0); Monocytes # (auto) 0.7 10 ^3/uL (0-1.3); Neutrophils # (auto) 1.7 10 ^3/uL (1.6-8.6); Neutrophils % (auto) 42.5 % (37.0-80.0); Nucleated Red Blood Cells % 0.1 %; Platelet Count (auto) 134 10^3/uL (140-450); Red Blood Cells 4.39 10^6/uL (4.5-5.90); Red Cell Distribution Width 14.3 % (11.8-14.3); White Blood Cell 3.9 10^3/uL (4.4-10.8)
[2021-04-12 12:00] LABS: Albumin 3.7 g/dL (3.4-5.0); Magnesium 2.6 mg/dL (1.6-2.6); Potassium 4.2 mmol/L (3.5-5.1)
[2021-04-12 12:07] LABS: BUN/Creatinine Ratio 15.6; Bilirubin, Total 0.9 mg/dL (0.2-1.0); Total Protein 7.3 g/dL (6.4-8.2)
== END | disposition home or self-care (01) ==
LOC: CHF HDHVI 07:58
PROVIDERS: ATTEND Internal Medicine Cardiovascular Disease
DX: I13.2 Hypertensive heart and chronic kidney disease with heart failure and with stage 5 chronic kidney disease, or end stage renal disease (principal); E11.22 Type 2 diabetes mellitus with diabetic chronic kidney disease; I50.42 Chronic combined systolic (congestive) and diastolic (congestive) heart failure; N18.6 End stage renal disease; M54.5 Low back pain; I48.11 Longstanding persistent atrial fibrillation; R53.83 Other fatigue; I25.10 Atherosclerotic heart disease of native coronary artery without angina pectoris; I25.2 Old myocardial infarction; I42.8 Other cardiomyopathies; E11.42 Type 2 diabetes mellitus with diabetic polyneuropathy; E11.51 Type 2 diabetes mellitus with diabetic peripheral angiopathy without gangrene; E11.319 Type 2 diabetes mellitus with unspecified diabetic retinopathy without macular edema; J44.9 Chronic obstructive pulmonary disease, unspecified; K21.9 Gastro-esophageal reflux disease without esophagitis; M17.12 Unilateral primary osteoarthritis, left knee; E78.5 Hyperlipidemia, unspecified; E03.9 Hypothyroidism, unspecified; E78.00 Pure hypercholesterolemia, unspecified; G89.29 Other chronic pain; F31.9 Bipolar disorder, unspecified; F41.9 Anxiety disorder, unspecified; Z79.01 Long term (current) use of anticoagulants; Z79.4 Long term (current) use of insulin; Z79.82 Long term (current) use of aspirin; Z79.899 Other long term (current) drug therapy; Z87.891 Personal history of nicotine dependence; Z95.810 Presence of automatic (implantable) cardiac defibrillator; Z95.5 Presence of coronary angioplasty implant and graft; Z85.46 Personal history of malignant neoplasm of prostate; Z85.038 Personal history of other malignant neoplasm of large intestine; Z86.73 Personal history of transient ischemic attack (TIA), and cerebral infarction without residual deficits
CPT/HCPCS: 36415; 80053; 83735; 83880; 85025; 96365; 96366; 96372; 96375; G0463; J1885; J2260

== ENCOUNTER → 2021-04-14 | Outpatient (CLI) | payer OTHER ==
[2021-04-14] VITALS (11 sets, daily range): BP systolic 99–113; BP diastolic 55–71
[~2021-04-14] MED LIST changes: -KETOROLAC TROMETH 30 MG/ML 1ML VIAL IV ONE; -KETOROLAC TROMETH 60MG/2ML VIAL IM ONE; -KETOROLAC TROMETH 60MG/2ML VIAL ONE
== END | disposition home or self-care (01) ==
LOC: CHF HDHVI 08:00
PROVIDERS: ATTEND Internal Medicine Cardiovascular Disease
DX: E11.22 Type 2 diabetes mellitus with diabetic chronic kidney disease (principal); I13.2 Hypertensive heart and chronic kidney disease with heart failure and with stage 5 chronic kidney disease, or end stage renal disease; I11.0 Hypertensive heart disease with heart failure; I50.42 Chronic combined systolic (congestive) and diastolic (congestive) heart failure; N18.6 End stage renal disease; F41.9 Anxiety disorder, unspecified; I25.10 Atherosclerotic heart disease of native coronary artery without angina pectoris; F31.9 Bipolar disorder, unspecified; J44.9 Chronic obstructive pulmonary disease, unspecified; K21.9 Gastro-esophageal reflux disease without esophagitis; E78.5 Hyperlipidemia, unspecified; E03.9 Hypothyroidism, unspecified; I25.2 Old myocardial infarction; G89.29 Other chronic pain; R53.83 Other fatigue; E78.00 Pure hypercholesterolemia, unspecified; E11.51 Type 2 diabetes mellitus with diabetic peripheral angiopathy without gangrene; I48.91 Unspecified atrial fibrillation; Z79.01 Long term (current) use of anticoagulants; Z79.82 Long term (current) use of aspirin; Z79.4 Long term (current) use of insulin; Z79.899 Other long term (current) drug therapy; Z85.46 Personal history of malignant neoplasm of prostate; Z85.038 Personal history of other malignant neoplasm of large intestine; Z87.891 Personal history of nicotine dependence; Z95.1 Presence of aortocoronary bypass graft
CPT/HCPCS: 96365; 96366; G0463; J2260

== ENCOUNTER → 2021-04-16 | Outpatient (CLI) | payer OTHER ==
[2021-04-16] VITALS (11 sets, daily range): BP systolic 106–124; BP diastolic 56–77
[~2021-04-16] MED LIST changes: +DOBUTamine 1000MCG/ML 250 ML IV ONE
[2021-04-16 11:32] LABS: Magnesium 2.5 mg/dL (1.6-2.6); Potassium 4.5 mmol/L (3.5-5.1)
== END | disposition home or self-care (01) ==
LOC: CHF HDHVI 07:57
PROVIDERS: ATTEND Internal Medicine Cardiovascular Disease
DX: I13.2 Hypertensive heart and chronic kidney disease with heart failure and with stage 5 chronic kidney disease, or end stage renal disease (principal); E11.22 Type 2 diabetes mellitus with diabetic chronic kidney disease; I50.42 Chronic combined systolic (congestive) and diastolic (congestive) heart failure; N18.6 End stage renal disease; I48.11 Longstanding persistent atrial fibrillation; I42.8 Other cardiomyopathies; R53.83 Other fatigue; I25.10 Atherosclerotic heart disease of native coronary artery without angina pectoris; I25.2 Old myocardial infarction; J44.9 Chronic obstructive pulmonary disease, unspecified; E11.51 Type 2 diabetes mellitus with diabetic peripheral angiopathy without gangrene; E11.319 Type 2 diabetes mellitus with unspecified diabetic retinopathy without macular edema; E11.42 Type 2 diabetes mellitus with diabetic polyneuropathy; K21.9 Gastro-esophageal reflux disease without esophagitis; E78.5 Hyperlipidemia, unspecified; E03.9 Hypothyroidism, unspecified; G89.29 Other chronic pain; M17.12 Unilateral primary osteoarthritis, left knee; F41.9 Anxiety disorder, unspecified; F31.9 Bipolar disorder, unspecified; Z90.49 Acquired absence of other specified parts of digestive tract; Z79.01 Long term (current) use of anticoagulants; Z79.82 Long term (current) use of aspirin; Z79.4 Long term (current) use of insulin; Z85.46 Personal history of malignant neoplasm of prostate; Z85.038 Personal history of other malignant neoplasm of large intestine; Z95.810 Presence of automatic (implantable) cardiac defibrillator; Z86.73 Personal history of transient ischemic attack (TIA), and cerebral infarction without residual deficits
CPT/HCPCS: 36415; 71046; 82565; 83735; 83880; 84132; 84520; 96365; 96366; G0463; J1250

== ENCOUNTER → 2021-04-19 | Outpatient (CLI) | payer OTHER ==
[2021-04-19] VITALS (11 sets, daily range): BP systolic 103–139; BP diastolic 51–80
[~2021-04-19] VITALS: Ht 30.5 cm; Wt 85.8 kg
[~2021-04-19] MED LIST changes: -MILRINONE 20MG/100ML 100 ML IV ONE
[2021-04-19 11:49] LABS: BUN/Creatinine Ratio 14.4; Calcium 8.9 mg/dL (8.5-10.1); Magnesium 2.7 mg/dL (1.6-2.6); Potassium 4.2 mmol/L (3.5-5.1)
== END | disposition home or self-care (01) ==
LOC: CHF HDHVI 07:57
PROVIDERS: ATTEND Internal Medicine Cardiovascular Disease
DX: I13.2 Hypertensive heart and chronic kidney disease with heart failure and with stage 5 chronic kidney disease, or end stage renal disease (principal); E11.22 Type 2 diabetes mellitus with diabetic chronic kidney disease; I50.42 Chronic combined systolic (congestive) and diastolic (congestive) heart failure; N18.6 End stage renal disease; I25.10 Atherosclerotic heart disease of native coronary artery without angina pectoris; I25.2 Old myocardial infarction; I48.11 Longstanding persistent atrial fibrillation; I42.8 Other cardiomyopathies; E11.42 Type 2 diabetes mellitus with diabetic polyneuropathy; E11.51 Type 2 diabetes mellitus with diabetic peripheral angiopathy without gangrene; E11.319 Type 2 diabetes mellitus with unspecified diabetic retinopathy without macular edema; J44.9 Chronic obstructive pulmonary disease, unspecified; K21.9 Gastro-esophageal reflux disease without esophagitis; E78.5 Hyperlipidemia, unspecified; E03.9 Hypothyroidism, unspecified; G89.29 Other chronic pain; R53.83 Other fatigue; M17.12 Unilateral primary osteoarthritis, left knee; Z79.4 Long term (current) use of insulin; Z79.82 Long term (current) use of aspirin; Z79.01 Long term (current) use of anticoagulants; Z79.899 Other long term (current) drug therapy; Z87.891 Personal history of nicotine dependence; Z85.46 Personal history of malignant neoplasm of prostate; Z85.038 Personal history of other malignant neoplasm of large intestine; Z95.810 Presence of automatic (implantable) cardiac defibrillator; Z95.5 Presence of coronary angioplasty implant and graft; Z86.73 Personal history of transient ischemic attack (TIA), and cerebral infarction without residual deficits
CPT/HCPCS: 36415; 80048; 83735; 83880; 96365; 96366; G0463; J1250

== ENCOUNTER → 2021-04-23 | Outpatient (CLI) | payer OTHER ==
[2021-04-23] VITALS (11 sets, daily range): BP systolic 112–127; BP diastolic 56–86
[~2021-04-23] VITALS: Ht 165.1 cm; Wt 86.0 kg
[~2021-04-23] MED LIST changes: +CYANOCOBALAMIN (B-12) 1000 MCG/1 ML VIAL IM ONE; +CYANOCOBALAMIN (B-12) 1000 MCG/1 ML VIAL ONE
== END | disposition home or self-care (01) ==
LOC: CHF HDHVI 07:56
PROVIDERS: ATTEND Internal Medicine Cardiovascular Disease
DX: I13.2 Hypertensive heart and chronic kidney disease with heart failure and with stage 5 chronic kidney disease, or end stage renal disease (principal); E11.22 Type 2 diabetes mellitus with diabetic chronic kidney disease; I50.23 Acute on chronic systolic (congestive) heart failure; I50.84 End stage heart failure; N18.6 End stage renal disease; F41.9 Anxiety disorder, unspecified; I25.10 Atherosclerotic heart disease of native coronary artery without angina pectoris; F31.9 Bipolar disorder, unspecified; J44.9 Chronic obstructive pulmonary disease, unspecified; K21.9 Gastro-esophageal reflux disease without esophagitis; E03.9 Hypothyroidism, unspecified; I48.11 Longstanding persistent atrial fibrillation; E78.00 Pure hypercholesterolemia, unspecified; E11.42 Type 2 diabetes mellitus with diabetic polyneuropathy; M17.12 Unilateral primary osteoarthritis, left knee; E11.51 Type 2 diabetes mellitus with diabetic peripheral angiopathy without gangrene; I25.2 Old myocardial infarction; Z79.899 Other long term (current) drug therapy; Z87.891 Personal history of nicotine dependence; Z95.810 Presence of automatic (implantable) cardiac defibrillator; Z86.73 Personal history of transient ischemic attack (TIA), and cerebral infarction without residual deficits; Z79.01 Long term (current) use of anticoagulants; Z79.4 Long term (current) use of insulin; Z79.82 Long term (current) use of aspirin; Z90.49 Acquired absence of other specified parts of digestive tract
CPT/HCPCS: 96365; 96366; 96372; G0463; J1250; J3420

== ENCOUNTER → 2021-04-28 | Outpatient (CLI) | payer OTHER ==
[2021-04-28] VITALS (11 sets, daily range): BP systolic 96–135; BP diastolic 50–71
[~2021-04-28] VITALS: Ht 30.5 cm; Wt 85.4 kg
[~2021-04-28] MED LIST changes: -CYANOCOBALAMIN (B-12) 1000 MCG/1 ML VIAL IM ONE; -CYANOCOBALAMIN (B-12) 1000 MCG/1 ML VIAL ONE; +KETOROLAC TROMETH 30 MG/ML 1ML VIAL IV ONE; +KETOROLAC TROMETH 60MG/2ML VIAL IM ONE; +KETOROLAC TROMETH 60MG/2ML VIAL ONE
[2021-04-28 12:02] LABS: Basophils # (auto) 0 10 ^3/uL (0-0.2); Basophils % (auto) 0.6 % (0.0-2.0); Eosinophils # (auto) 0.2 10 ^3/uL (0-0.8); Eosinophils % (auto) 4.6 % (0.0-7.0); Hematocrit 42.7 % (41.0-53.0); Hemoglobin 14.4 g/dL (13.5-17.5); Mean Corpuscular Hemoglobin 32.3 pg (28.0-32.0); Mean Corpuscular Hgb Conc. 33.7 g/dL (32.0-36.0); Mean Corpuscular Volume 95.9 fL (80.0-100.0); Neutrophils # (auto) 1.3 10 ^3/uL (1.6-8.6); Neutrophils % (auto) 32.3 % (37.0-80.0); Nucleated Red Blood Cells % 0.1 %; Platelet Count (auto) 141 10^3/uL (140-450); Red Blood Cells 4.45 10^6/uL (4.5-5.90); Red Cell Distribution Width 14.6 % (11.8-14.3)
[2021-04-28 12:11] LABS: Lymphocytes % (auto) 44.5 % (10.0-50.0)
[2021-04-28 12:12] LABS: Lymphocytes # (auto) 1.9 10 ^3/uL (0.4-5.4); Monocytes # (auto) 0.7 10 ^3/uL (0-1.3)
[2021-04-28 12:13] LABS: BUN/Creatinine Ratio 15.3; Calcium 8.8 mg/dL (8.5-10.1); Magnesium 2.7 mg/dL (1.6-2.6); Potassium 4.2 mmol/L (3.5-5.1)
== END | disposition home or self-care (01) ==
LOC: CHF HDHVI 07:58
PROVIDERS: ATTEND Internal Medicine Cardiovascular Disease
DX: I13.2 Hypertensive heart and chronic kidney disease with heart failure and with stage 5 chronic kidney disease, or end stage renal disease (principal); E11.22 Type 2 diabetes mellitus with diabetic chronic kidney disease; I50.42 Chronic combined systolic (congestive) and diastolic (congestive) heart failure; N18.6 End stage renal disease; I48.11 Longstanding persistent atrial fibrillation; I42.8 Other cardiomyopathies; R53.83 Other fatigue; I25.10 Atherosclerotic heart disease of native coronary artery without angina pectoris; I25.2 Old myocardial infarction; J44.9 Chronic obstructive pulmonary disease, unspecified; E11.51 Type 2 diabetes mellitus with diabetic peripheral angiopathy without gangrene; E11.42 Type 2 diabetes mellitus with diabetic polyneuropathy; E11.319 Type 2 diabetes mellitus with unspecified diabetic retinopathy without macular edema; K21.9 Gastro-esophageal reflux disease without esophagitis; E78.5 Hyperlipidemia, unspecified; E78.00 Pure hypercholesterolemia, unspecified; E03.9 Hypothyroidism, unspecified; G89.29 Other chronic pain; M17.12 Unilateral primary osteoarthritis, left knee; F41.9 Anxiety disorder, unspecified; F31.9 Bipolar disorder, unspecified; Z87.891 Personal history of nicotine dependence; Z79.899 Other long term (current) drug therapy; Z79.01 Long term (current) use of anticoagulants; Z79.82 Long term (current) use of aspirin; Z79.4 Long term (current) use of insulin; Z85.46 Personal history of malignant neoplasm of prostate; Z85.038 Personal history of other malignant neoplasm of large intestine; Z95.810 Presence of automatic (implantable) cardiac defibrillator; Z95.5 Presence of coronary angioplasty implant and graft; Z86.73 Personal history of transient ischemic attack (TIA), and cerebral infarction without residual deficits; Z90.49 Acquired absence of other specified parts of digestive tract
CPT/HCPCS: 36415; 80048; 83735; 83880; 85025; 96365; 96366; 96372; 96375; G0463; J1250; J1885

== ENCOUNTER → 2021-04-30 | Outpatient (CLI) | payer OTHER ==
[2021-04-30] VITALS (11 sets, daily range): BP systolic 93–120; BP diastolic 45–72
[~2021-04-30] MED LIST changes: +FUROSEMIDE 20 MG/2 ML VIAL ONE; +FUROSEMIDE INJECTION 10 ML ONE; +FUROSEMIDE INJECTION 100 MG in SODIUM CHL 0.9% 100 ML IV ONE; -KETOROLAC TROMETH 30 MG/ML 1ML VIAL IV ONE; -KETOROLAC TROMETH 60MG/2ML VIAL IM ONE; -KETOROLAC TROMETH 60MG/2ML VIAL ONE; +POTASSIUM CHL 10 Meq TABLET PO ONE; +POTASSIUM CHL 20 Meq TABLET PO ONE
== END | disposition home or self-care (01) ==
LOC: CHF HDHVI 08:00
PROVIDERS: ATTEND Internal Medicine Cardiovascular Disease
DX: I13.2 Hypertensive heart and chronic kidney disease with heart failure and with stage 5 chronic kidney disease, or end stage renal disease (principal); E11.22 Type 2 diabetes mellitus with diabetic chronic kidney disease; I50.42 Chronic combined systolic (congestive) and diastolic (congestive) heart failure; N18.6 End stage renal disease; I48.11 Longstanding persistent atrial fibrillation; I42.8 Other cardiomyopathies; I25.10 Atherosclerotic heart disease of native coronary artery without angina pectoris; I25.2 Old myocardial infarction; J44.9 Chronic obstructive pulmonary disease, unspecified; E11.51 Type 2 diabetes mellitus with diabetic peripheral angiopathy without gangrene; E11.42 Type 2 diabetes mellitus with diabetic polyneuropathy; E11.319 Type 2 diabetes mellitus with unspecified diabetic retinopathy without macular edema; K21.9 Gastro-esophageal reflux disease without esophagitis; E78.5 Hyperlipidemia, unspecified; E03.9 Hypothyroidism, unspecified; E78.00 Pure hypercholesterolemia, unspecified; M17.12 Unilateral primary osteoarthritis, left knee; G89.29 Other chronic pain; F41.9 Anxiety disorder, unspecified; F31.9 Bipolar disorder, unspecified; Z79.01 Long term (current) use of anticoagulants; Z79.4 Long term (current) use of insulin; Z79.82 Long term (current) use of aspirin; Z79.899 Other long term (current) drug therapy; Z87.891 Personal history of nicotine dependence; Z85.46 Personal history of malignant neoplasm of prostate; Z85.038 Personal history of other malignant neoplasm of large intestine; Z95.810 Presence of automatic (implantable) cardiac defibrillator; Z95.5 Presence of coronary angioplasty implant and graft; Z86.73 Personal history of transient ischemic attack (TIA), and cerebral infarction without residual deficits
CPT/HCPCS: 96365; 96366; 96368; G0463; J1250; J1940

== ENCOUNTER 2021-05-03 16:27 | Inpatient (IN) | payer OTHER ==
[~2021-05-03] VITALS: Ht 180.3 cm; Wt 82.9 kg
[~2021-05-03 16:27] MED LIST changes: -CYANOCOBALAMIN (B-12) 1000 MCG/1 ML VIAL IM ONE; -CYANOCOBALAMIN (B-12) 1000 MCG/1 ML VIAL ONE; -DOBUTamine 1000MCG/ML 250 ML IV ONE; -FUROSEMIDE INJECTION 10 ML ONE; -FUROSEMIDE INJECTION 100 MG in D5W 5% 100 ML IV ONE; -POTASSIUM CHL 20 Meq TABLET PO ONE
[2021-05-03 17:15] VITALS: BP 109/70
[2021-05-03] MEDS ORDERED: MORPHINE SULF INJ 2 MG/ML SYRINGE 1ML IV PRN (18:30)
[2021-05-03] MEDS ORDERED: NITROGLYCERIN 0.4 MG SL TAB SL PRN (18:30)
[2021-05-03 18:43] VITALS: BP 109/70
[2021-05-03 19:25] LABS: Calcium 8.9 mg/dL (8.5-10.1)
[2021-05-03 20:00] VITALS: BP 99/61
[2021-05-03 20:19] LABS: INR 1.18 (0.9-1.15); Partial Thromboplastin Time 29.7 sec (23.0-31.2)
[2021-05-03 22:00] VITALS: BP 99/61
[2021-05-03] MEDS: SACUBITRIL-VALSARTAN 24mg/26mg TAB PO SCH (22:00)
[2021-05-03] MEDS: POTASSIUM CHL 20 Meq TABLET PO SCH ×2 (22:00→22:33)
[2021-05-03] MEDS: METOPROLOL SUCCINATE XL 50 MG TAB PO SCH (22:00)
[2021-05-03] MEDS ORDERED: ATORVASTATIN 20 MG TAB PO SCH (22:00)
[2021-05-03] MEDS: DOBUTamine 1000MCG/ML 250 ML IV SCH (22:31)
[2021-05-03] MEDS: SODIUM CHLOR 0.9% PF (SALINE LOCK) 10ML VIAL/SYR IV SCH (22:33)
[2021-05-03] MEDS: FUROSEMIDE INJECTION 100 MG in D5W 5% 100 ML IV SCH (22:33)
[2021-05-03] MEDS: CLOPIDOGREL BISULFATE 75 MG TAB PO SCH (22:35)
[2021-05-04] VITALS (7 sets, daily range): BP systolic 86–106; BP diastolic 48–61
[2021-05-04] MEDS: FUROSEMIDE INJECTION 100 MG in D5W 5% 100 ML IV SCH ×5 (02:27→20:30)
[2021-05-04] MEDS: DOBUTamine 1000MCG/ML 250 ML IV SCH ×2 (06:56→15:14)
[2021-05-04] MEDS: SODIUM CHLOR 0.9% PF (SALINE LOCK) 10ML VIAL/SYR IV SCH ×3 (06:56→21:48)
[2021-05-04] MEDS: POTASSIUM CHL 20 Meq TABLET PO SCH ×3 (06:56→21:49)
[2021-05-04 08:56] LABS: Basophils # (auto) 0 10 ^3/uL (0-0.2); Basophils % (auto) 0.4 % (0.0-2.0); Eosinophils # (auto) 0.1 10 ^3/uL (0-0.8); Eosinophils % (auto) 1.2 % (0.0-7.0); Hemoglobin 14.5 g/dL (13.5-17.5); Lymphocytes # (auto) 0.8 10 ^3/uL (0.4-5.4); Lymphocytes % (auto) 14.7 % (10.0-50.0); Mean Corpuscular Hgb Conc. 34.6 g/dL (32.0-36.0); Mean Corpuscular Volume 95.4 fL (80.0-100.0); Monocytes # (auto) 0.9 10 ^3/uL (0-1.3); Monocytes % (auto) 16.8 % (0.0-12.0); Neutrophils # (auto) 3.6 10 ^3/uL (1.6-8.6); Neutrophils % (auto) 66.9 % (37.0-80.0); Platelet Count (auto) 128 10^3/uL (140-450); Red Blood Cells 4.41 10^6/uL (4.5-5.90); Red Cell Distribution Width 14.4 % (11.8-14.3); White Blood Cell 5.4 10^3/uL (4.4-10.8)
[2021-05-04 09:11] LABS: Albumin 3.9 g/dL (3.4-5.0); Calcium 8.8 mg/dL (8.5-10.1); Potassium 3.2 mmol/L (3.5-5.1)
[2021-05-04 09:15] LABS: BUN/Creatinine Ratio 12.4; Bilirubin, Total 1.3 mg/dL (0.2-1.0); Total Protein 7.3 g/dL (6.4-8.2)
[2021-05-04] MEDS: SACUBITRIL-VALSARTAN 24mg/26mg TAB PO SCH ×2 (10:00→21:49)
[2021-05-04] MEDS: MAGNESIUM OXIDE 400 MG TAB PO SCH (10:00)
[2021-05-04] MEDS ORDERED: POTASSIUM CHL 20 Meq TABLET PO ONE (10:00)
[2021-05-04] MEDS: Ensure Enlive Strawberry 8oz Bottle PO SCH ×2 (12:00→18:00)
[2021-05-04] MEDS ORDERED: IOHEXOL 350 MG/ML 100ML IJ ONE (12:46)
[2021-05-04] MEDS ORDERED: LIDOCAINE 2%HCL (LOCAL ANESTH.) INJ 20ML MDV ONE (12:46)
[2021-05-04] MEDS ORDERED: fentaNYL CITRATE 100 MCG/2 ML VL ONE (13:40)
[2021-05-04] MEDS ORDERED: MIDAZOLAM HCL 1MG/1ML-2 ML VIAL ONE (13:40)
[2021-05-04] MEDS ORDERED: ANGIOMAX 250 MG VIAL IV ONE (13:40)
[2021-05-04] MEDS ORDERED: SODIUM CHL 0.9% 0 ML ONE (13:40)
[2021-05-04] MEDS: METOPROLOL SUCCINATE XL 50 MG TAB PO SCH (21:48)
[2021-05-05] MEDS: FUROSEMIDE INJECTION 100 MG in D5W 5% 100 ML IV SCH ×5 (01:13→23:19)
[2021-05-05] MEDS: DOBUTamine 1000MCG/ML 250 ML IV SCH ×3 (01:20→23:19)
[2021-05-05 05:00] VITALS: BP 92/50
[2021-05-05] MEDS: SODIUM CHLOR 0.9% PF (SALINE LOCK) 10ML VIAL/SYR IV SCH ×3 (05:14→21:54)
[2021-05-05 05:41] LABS: BUN/Creatinine Ratio 13.5; Potassium 4.2 mmol/L (3.5-5.1)
[2021-05-05 05:54] LABS: Mean Corpuscular Hgb Conc. 33.6 g/dL (32.0-36.0); White Blood Cell 5.9 10^3/uL (4.4-10.8)
[2021-05-05 05:57] LABS: Hematocrit 41.7 % (41.0-53.0); Mean Corpuscular Hemoglobin 32.2 pg (28.0-32.0); Mean Corpuscular Volume 95.6 fL (80.0-100.0); Platelet Count (auto) 135 10^3/uL (140-450); Red Blood Cells 4.36 10^6/uL (4.5-5.90)
[2021-05-05 06:01] LABS: Basophils % (manual) 0 (0.0-2.0); Blast Cells 0; Eosinophils % (manual) 0 (0-7); Metamyelocytes % 0; Myelocytes % 0; Promyelocytes % 0; Reactive Lymphocytes 0
[2021-05-05] MEDS: POTASSIUM CHL 20 Meq TABLET PO SCH ×3 (06:06→21:55)
[2021-05-05 08:30] VITALS: BP 102/58
[2021-05-05 09:10] LABS: Band Neutrophils % (manual) 1; Lymphocytes % (manual) 13 (10.0-50.0); Monocytes % (manual) 19 (0-12)
[2021-05-05] MEDS: MAGNESIUM OXIDE 400 MG TAB PO SCH (09:37)
[2021-05-05] MEDS: CLOPIDOGREL BISULFATE 75 MG TAB PO SCH (09:37)
[2021-05-05] MEDS: Ensure Enlive Strawberry 8oz Bottle PO SCH ×3 (09:37→18:34)
[2021-05-05] MEDS: SACUBITRIL-VALSARTAN 24mg/26mg TAB PO SCH ×2 (09:37→21:55)
[2021-05-05 12:30] VITALS: BP 101/55
[2021-05-05 17:00] VITALS: BP 118/79
[2021-05-05 20:00] VITALS: BP 117/75
[2021-05-05 22:00] VITALS: BP 91/56
[2021-05-05] MEDS: METOPROLOL SUCCINATE XL 50 MG TAB PO SCH (22:00)
[2021-05-06 05:05] VITALS: BP 94/56
[2021-05-06] MEDS: SODIUM CHLOR 0.9% PF (SALINE LOCK) 10ML VIAL/SYR IV SCH ×3 (05:20→21:18)
[2021-05-06] MEDS: POTASSIUM CHL 20 Meq TABLET PO SCH ×3 (05:20→21:19)
[2021-05-06 05:54] LABS: BUN/Creatinine Ratio 16.2; Calcium 8.8 mg/dL (8.5-10.1); Potassium 3.7 mmol/L (3.5-5.1)
[2021-05-06 08:57] VITALS: BP 95/49
[2021-05-06] MEDS: SACUBITRIL-VALSARTAN 24mg/26mg TAB PO SCH ×2 (09:57→21:19)
[2021-05-06] MEDS: MAGNESIUM OXIDE 400 MG TAB PO SCH (09:57)
[2021-05-06] MEDS: DOBUTamine 1000MCG/ML 250 ML IV SCH ×2 (09:59→21:18)
[2021-05-06] MEDS: FUROSEMIDE INJECTION 100 MG in D5W 5% 100 ML IV SCH ×2 (10:00→20:33)
[2021-05-06] MEDS: Ensure Enlive Strawberry 8oz Bottle PO SCH ×3 (10:02→18:28)
[2021-05-06 12:19] VITALS: BP 137/54
[2021-05-06 16:48] VITALS: BP 117/64
[2021-05-06 20:00] VITALS: BP 112/62
[2021-05-06] MEDS: METOPROLOL SUCCINATE XL 50 MG TAB PO SCH (21:19)
[2021-05-06 22:58] VITALS: BP 112/62
[2021-05-07 05:16] VITALS: BP 106/64
[2021-05-07] MEDS: POTASSIUM CHL 20 Meq TABLET PO SCH ×3 (05:41→21:15)
[2021-05-07] MEDS: FUROSEMIDE INJECTION 100 MG in D5W 5% 100 ML IV SCH (05:41)
[2021-05-07] MEDS: SODIUM CHLOR 0.9% PF (SALINE LOCK) 10ML VIAL/SYR IV SCH ×3 (05:41→22:13)
[2021-05-07 06:43] LABS: INR 1.12 (0.9-1.15); Partial Thromboplastin Time 27.3 sec (23.0-31.2)
[2021-05-07] MEDS: Ensure Enlive Strawberry 8oz Bottle PO SCH ×3 (08:21→18:17)
[2021-05-07] MEDS: SACUBITRIL-VALSARTAN 24mg/26mg TAB PO SCH ×2 (08:21→21:14)
[2021-05-07] MEDS: MAGNESIUM OXIDE 400 MG TAB PO SCH (08:21)
[2021-05-07] MEDS: CLOPIDOGREL BISULFATE 75 MG TAB PO SCH (08:22)
[2021-05-07 09:00] VITALS: BP 95/53
[2021-05-07 09:04] LABS: BUN/Creatinine Ratio 25.2; Calcium 9.1 mg/dL (8.5-10.1)
[2021-05-07] MEDS: DOBUTamine 1000MCG/ML 250 ML IV SCH ×2 (09:12→17:17)
[2021-05-07 13:00] VITALS: BP 99/57
[2021-05-07] MEDS: DIGOXIN 0.125 MG TAB PO SCH (15:29)
[2021-05-07 17:00] VITALS: BP 114/80
[2021-05-07] MEDS: FUROSEMIDE 20 MG TAB PO SCH (17:18)
[2021-05-07] MEDS: METOPROLOL SUCCINATE XL 50 MG TAB PO SCH (21:16)
[2021-05-07 22:00] VITALS: BP 108/66
[2021-05-08] MEDS: DOBUTamine 1000MCG/ML 250 ML IV SCH ×3 (03:08→13:44)
[2021-05-08 05:00] VITALS: BP 97/63
[2021-05-08] MEDS: SODIUM CHLOR 0.9% PF (SALINE LOCK) 10ML VIAL/SYR IV SCH ×3 (05:27→21:56)
[2021-05-08] MEDS: POTASSIUM CHL 20 Meq TABLET PO SCH ×3 (05:27→21:57)
[2021-05-08 09:00] VITALS: BP 105/66
[2021-05-08] MEDS: DIGOXIN 0.125 MG TAB PO SCH (09:59)
[2021-05-08] MEDS: FUROSEMIDE 20 MG TAB PO SCH (09:59)
[2021-05-08] MEDS: Ensure Enlive Strawberry 8oz Bottle PO SCH ×3 (09:59→17:52)
[2021-05-08] MEDS: SACUBITRIL-VALSARTAN 24mg/26mg TAB PO SCH ×2 (09:59→21:56)
[2021-05-08] MEDS: MAGNESIUM OXIDE 400 MG TAB PO SCH (10:00)
[2021-05-08 12:48] VITALS: BP 101/55
[2021-05-08 17:00] VITALS: BP 103/64
[2021-05-08 22:00] VITALS: BP 105/60
[2021-05-08] MEDS: METOPROLOL SUCCINATE XL 50 MG TAB PO SCH (22:00)
[2021-05-09] MEDS: DOBUTamine 1000MCG/ML 250 ML IV SCH ×2 (03:53→12:58)
[2021-05-09 05:00] VITALS: BP 96/50
[2021-05-09] MEDS: SODIUM CHLOR 0.9% PF (SALINE LOCK) 10ML VIAL/SYR IV SCH ×3 (06:03→21:50)
[2021-05-09] MEDS: POTASSIUM CHL 20 Meq TABLET PO SCH ×3 (06:04→21:50)
[2021-05-09 09:00] VITALS: BP 101/63
[2021-05-09] MEDS: Ensure Enlive Strawberry 8oz Bottle PO SCH ×3 (09:38→19:13)
[2021-05-09] MEDS: SACUBITRIL-VALSARTAN 24mg/26mg TAB PO SCH ×2 (09:51→21:50)
[2021-05-09] MEDS: DIGOXIN 0.125 MG TAB PO SCH (09:51)
[2021-05-09] MEDS: CLOPIDOGREL BISULFATE 75 MG TAB PO SCH (09:51)
[2021-05-09] MEDS: FUROSEMIDE 20 MG TAB PO SCH (09:52)
[2021-05-09] MEDS: MAGNESIUM OXIDE 400 MG TAB PO SCH (09:52)
[2021-05-09 13:00] VITALS: BP 94/52
[2021-05-09 17:00] VITALS: BP 116/63
[2021-05-09] MEDS: METOPROLOL SUCCINATE XL 50 MG TAB PO SCH (21:51)
[2021-05-09 22:00] VITALS: BP 101/61
[2021-05-10] MEDS: DOBUTamine 1000MCG/ML 250 ML IV SCH ×2 (00:13→10:30)
[2021-05-10 05:00] VITALS: BP 107/54
[2021-05-10] MEDS: POTASSIUM CHL 20 Meq TABLET PO SCH ×2 (06:00→14:00)
[2021-05-10] MEDS: SODIUM CHLOR 0.9% PF (SALINE LOCK) 10ML VIAL/SYR IV SCH ×2 (06:24→16:53)
[2021-05-10] MEDS: Ensure Enlive Strawberry 8oz Bottle PO SCH ×2 (08:00→16:52)
[2021-05-10] MEDS ORDERED: LIDOCAINE 1% HCL (LOCAL ANESTH.) INJ 20ML MDV ONE (08:43)
[2021-05-10] MEDS ORDERED: ceFAZolin 1GM VL ONE (08:43)
[2021-05-10] MEDS ORDERED: HEPARIN 1,000 UNITS/ml 1ML VIAL ONE (08:44)
[2021-05-10] MEDS ORDERED: HEPARIN SODIUM (PORCINE) 5000 UNITS/ML 1ML VIAL ONE (08:44)
[2021-05-10] MEDS ORDERED: ePHEDrine SULFATE 50 MG/ML AMP IV ONE (08:44)
[2021-05-10 08:47] VITALS: BP 107/70
[2021-05-10] MEDS ORDERED: ceFAZolin 1GM/50ML 50 ML IV ONE (09:02)
[2021-05-10] MEDS ORDERED: fentaNYL CITRATE 100 MCG/2 ML VL ONE (09:25)
[2021-05-10] MEDS ORDERED: MIDAZOLAM HCL 1MG/1ML-2 ML VIAL ONE (09:25)
[2021-05-10] MEDS ORDERED: PROPOFOL 10 MG/ML 20 ML IV ONE (09:56)
[2021-05-10] MEDS: DIGOXIN 0.125 MG TAB PO SCH (10:00)
[2021-05-10] MEDS: SACUBITRIL-VALSARTAN 24mg/26mg TAB PO SCH (10:00)
[2021-05-10 13:05] VITALS: BP 95/63
[2021-05-10 15:54] VITALS: BP 95/63
[2021-05-10] MEDS: MAGNESIUM OXIDE 400 MG TAB PO SCH (16:51)
[2021-05-10] MEDS: FUROSEMIDE 20 MG TAB PO SCH (16:51)
== END 2021-05-10 17:15 | disposition home or self-care (01) | DRG 982 ==
LOC: TELE-CENTR 17:02
PROVIDERS: ADMIT Internal Medicine Cardiovascular Disease; ATTEND Internal Medicine Cardiovascular Disease
PROC: 4A023N7 Measurement of Cardiac Sampling and Pressure, Left Heart, Percutaneous Approach (ICD-10-PCS; 2021-05-04)
PROC: B211YZZ Fluoroscopy of Multiple Coronary Arteries using Other Contrast (ICD-10-PCS; 2021-05-04)
PROC: B215YZZ Fluoroscopy of Left Heart using Other Contrast (ICD-10-PCS; 2021-05-04)
PROC: B213YZZ Fluoroscopy of Multiple Coronary Artery Bypass Grafts using Other Contrast (ICD-10-PCS; 2021-05-04)
PROC: B218YZZ Fluoroscopy of Left Internal Mammary Bypass Graft using Other Contrast (ICD-10-PCS; 2021-05-04)
PROC: B41JYZZ Fluoroscopy of Other Lower Arteries using Other Contrast (ICD-10-PCS; 2021-05-04)
PROC: 0HC5XZZ Extirpation of Matter from Chest Skin, External Approach (ICD-10-PCS; 2021-05-10)
PROC: 02HV33Z Insertion of Infusion Device into Superior Vena Cava, Percutaneous Approach (ICD-10-PCS; 2021-05-10)
PROC: B5181ZA Fluoroscopy of Superior Vena Cava using Low Osmolar Contrast, Guidance (ICD-10-PCS; 2021-05-10)
PROC: 0JH60WZ Insertion of Totally Implantable Vascular Access Device into Chest Subcutaneous Tissue and Fascia, Open Approach (ICD-10-PCS; principal; 2021-05-10 09:26)
DX: I50.23 Acute on chronic systolic (congestive) heart failure (principal); D68.59 Other primary thrombophilia; I25.5 Ischemic cardiomyopathy; I48.91 Unspecified atrial fibrillation; E87.6 Hypokalemia; I25.10 Atherosclerotic heart disease of native coronary artery without angina pectoris; Z20.822 Contact with and (suspected) exposure to COVID-19; Z95.810 Presence of automatic (implantable) cardiac defibrillator; Z95.1 Presence of aortocoronary bypass graft; Z79.01 Long term (current) use of anticoagulants; I25.2 Old myocardial infarction; Z79.899 Other long term (current) drug therapy
CPT/HCPCS: 36415; 36561; 71045; 71250; 76000; 76604; 77001; 80048; 80053; 83735; 83880; 85007; 85025; 85027; 85610; 85730; 86850; 86900; 86901; 93459; 93971; 99152; G0378; J0690; J2001; J2250; J2704; J7060

== ENCOUNTER → 2021-05-03 | Outpatient (CLI) | payer OTHER ==
[~2021-05-03] VITALS: Ht 30.5 cm; Wt 83.3 kg
[2021-05-03] VITALS (13 sets, daily range): BP systolic 97–131; BP diastolic 46–77
[~2021-05-03] MED LIST changes: +CYANOCOBALAMIN (B-12) 1000 MCG/1 ML VIAL IM ONE; +CYANOCOBALAMIN (B-12) 1000 MCG/1 ML VIAL ONE; -FUROSEMIDE 20 MG/2 ML VIAL ONE; +FUROSEMIDE INJECTION 100 MG in D5W 5% 100 ML IV ONE; -FUROSEMIDE INJECTION 100 MG in SODIUM CHL 0.9% 100 ML IV ONE; -POTASSIUM CHL 10 Meq TABLET PO ONE
[2021-05-03 11:42] LABS: Basophils # (auto) 0 10 ^3/uL (0-0.2); Basophils % (auto) 0.5 % (0.0-2.0); Eosinophils # (auto) 0.2 10 ^3/uL (0-0.8); Eosinophils % (auto) 3.1 % (0.0-7.0); Hematocrit 44.7 % (41.0-53.0); Hemoglobin 14.9 g/dL (13.5-17.5); Mean Corpuscular Hemoglobin 32.4 pg (28.0-32.0); Mean Corpuscular Hgb Conc. 33.4 g/dL (32.0-36.0); Mean Corpuscular Volume 97.2 fL (80.0-100.0); Neutrophils # (auto) 2.1 10 ^3/uL (1.6-8.6); Neutrophils % (auto) 41.5 % (37.0-80.0); Nucleated Red Blood Cells % 0.1 %; Platelet Count (auto) 151 10^3/uL (140-450); Red Cell Distribution Width 14.6 % (11.8-14.3); White Blood Cell 5.1 10^3/uL (4.4-10.8)
[2021-05-03 11:48] LABS: Lymphocytes % (auto) 37.8 % (10.0-50.0); Monocytes # (auto) 0.8 10 ^3/uL (0-1.3); Monocytes % (auto) 17.1 % (0.0-12.0)
[2021-05-03 12:04] LABS: INR 1.17 (0.9-1.15); Partial Thromboplastin Time 30.1 sec (23.0-31.2)
[2021-05-03 12:28] LABS: Potassium 4.1 mmol/L (3.5-5.1)
[2021-05-03 12:32] LABS: BUN/Creatinine Ratio 12.7; Calcium 9.4 mg/dL (8.5-10.1); Magnesium 2.7 mg/dL (1.6-2.6)
== END | disposition home or self-care (01) ==
LOC: CHF HDHVI 08:16
PROVIDERS: ATTEND Internal Medicine Cardiovascular Disease
DX: I13.2 Hypertensive heart and chronic kidney disease with heart failure and with stage 5 chronic kidney disease, or end stage renal disease (principal); E11.22 Type 2 diabetes mellitus with diabetic chronic kidney disease; I50.42 Chronic combined systolic (congestive) and diastolic (congestive) heart failure; N18.6 End stage renal disease; I48.11 Longstanding persistent atrial fibrillation; I42.8 Other cardiomyopathies; I25.10 Atherosclerotic heart disease of native coronary artery without angina pectoris; I25.2 Old myocardial infarction; J44.9 Chronic obstructive pulmonary disease, unspecified; E11.51 Type 2 diabetes mellitus with diabetic peripheral angiopathy without gangrene; E11.319 Type 2 diabetes mellitus with unspecified diabetic retinopathy without macular edema; E11.42 Type 2 diabetes mellitus with diabetic polyneuropathy; K21.9 Gastro-esophageal reflux disease without esophagitis; E78.5 Hyperlipidemia, unspecified; E03.9 Hypothyroidism, unspecified; M17.12 Unilateral primary osteoarthritis, left knee; G89.29 Other chronic pain; F41.9 Anxiety disorder, unspecified; F31.9 Bipolar disorder, unspecified; Z79.01 Long term (current) use of anticoagulants; Z79.4 Long term (current) use of insulin; Z79.82 Long term (current) use of aspirin; Z79.899 Other long term (current) drug therapy; Z87.891 Personal history of nicotine dependence; Z85.46 Personal history of malignant neoplasm of prostate; Z85.038 Personal history of other malignant neoplasm of large intestine; Z95.810 Presence of automatic (implantable) cardiac defibrillator; Z95.5 Presence of coronary angioplasty implant and graft; Z86.73 Personal history of transient ischemic attack (TIA), and cerebral infarction without residual deficits
CPT/HCPCS: 36415; 80048; 83735; 83880; 85025; 85610; 85730; 96365; 96366; 96368; 96372; G0463; J1250; J1642; J1940; J3420

== ENCOUNTER → 2021-05-12 | Outpatient (CLI) | payer OTHER ==
[2021-05-12] VITALS (9 sets, daily range): BP systolic 90–122; BP diastolic 44–61
[~2021-05-12] MED LIST changes: +CYANOCOBALAMIN (B-12) 1000 MCG/1 ML VIAL IM ONE; +CYANOCOBALAMIN (B-12) 1000 MCG/1 ML VIAL ONE; +DOBUTamine 1000MCG/ML 250 ML IV ONE
[2021-05-12 11:42] LABS: Basophils # (auto) 0 10 ^3/uL (0-0.2); Basophils % (auto) 1.2 % (0.0-2.0); Eosinophils # (auto) 0.2 10 ^3/uL (0-0.8); Eosinophils % (auto) 3.9 % (0.0-7.0); Hemoglobin 13.4 g/dL (13.5-17.5); Mean Corpuscular Hgb Conc. 34.4 g/dL (32.0-36.0); Mean Corpuscular Volume 96.2 fL (80.0-100.0); Neutrophils % (auto) 49.1 % (37.0-80.0); Nucleated Red Blood Cells % 0.1 %; Platelet Count (auto) 132 10^3/uL (140-450); Red Blood Cells 4.06 10^6/uL (4.5-5.90)
[2021-05-12 11:50] LABS: Lymphocytes # (auto) 1.2 10 ^3/uL (0.4-5.4); Lymphocytes % (auto) 29.2 % (10.0-50.0); Monocytes # (auto) 0.6 10 ^3/uL (0-1.3); Monocytes % (auto) 16.6 % (0.0-12.0)
[2021-05-12 11:54] LABS: Potassium 4.7 mmol/L (3.5-5.1)
[2021-05-12 12:05] LABS: Albumin 3.5 g/dL (3.4-5.0); BUN/Creatinine Ratio 28.6; Bilirubin, Total 0.6 mg/dL (0.2-1.0); Calcium 8.7 mg/dL (8.5-10.1); Total Protein 7.2 g/dL (6.4-8.2)
== END | disposition home or self-care (01) ==
LOC: CHF HDHVI 07:57
PROVIDERS: ATTEND Internal Medicine Cardiovascular Disease
DX: I13.2 Hypertensive heart and chronic kidney disease with heart failure and with stage 5 chronic kidney disease, or end stage renal disease (principal); E11.22 Type 2 diabetes mellitus with diabetic chronic kidney disease; I50.23 Acute on chronic systolic (congestive) heart failure; N18.6 End stage renal disease; D64.9 Anemia, unspecified; I25.10 Atherosclerotic heart disease of native coronary artery without angina pectoris; I25.2 Old myocardial infarction; I48.91 Unspecified atrial fibrillation; F41.9 Anxiety disorder, unspecified; F31.9 Bipolar disorder, unspecified; J44.9 Chronic obstructive pulmonary disease, unspecified; E11.42 Type 2 diabetes mellitus with diabetic polyneuropathy; K21.9 Gastro-esophageal reflux disease without esophagitis; E03.9 Hypothyroidism, unspecified; E11.51 Type 2 diabetes mellitus with diabetic peripheral angiopathy without gangrene; M17.12 Unilateral primary osteoarthritis, left knee; E78.00 Pure hypercholesterolemia, unspecified; Z79.82 Long term (current) use of aspirin; Z79.01 Long term (current) use of anticoagulants; Z79.899 Other long term (current) drug therapy; Z95.810 Presence of automatic (implantable) cardiac defibrillator; Z79.4 Long term (current) use of insulin; Z87.891 Personal history of nicotine dependence; Z86.73 Personal history of transient ischemic attack (TIA), and cerebral infarction without residual deficits
CPT/HCPCS: 36415; 80053; 83735; 83880; 85025; 96365; 96366; 96372; G0463; J1250; J1642; J3420

== ENCOUNTER → 2021-05-17 | Outpatient (CLI) | payer OTHER ==
[2021-05-17] VITALS (9 sets, daily range): BP systolic 102–127; BP diastolic 50–69
[~2021-05-17] MED LIST changes: -CYANOCOBALAMIN (B-12) 1000 MCG/1 ML VIAL IM ONE; -CYANOCOBALAMIN (B-12) 1000 MCG/1 ML VIAL ONE
[2021-05-17 11:51] LABS: Basophils # (auto) 0 10 ^3/uL (0-0.2); Basophils % (auto) 0.6 % (0.0-2.0); Eosinophils # (auto) 0.1 10 ^3/uL (0-0.8); Eosinophils % (auto) 3.4 % (0.0-7.0); Hematocrit 38.7 % (41.0-53.0); Hemoglobin 13.1 g/dL (13.5-17.5); Lymphocytes % (auto) 28.7 % (10.0-50.0); Mean Corpuscular Hemoglobin 32.6 pg (28.0-32.0); Mean Corpuscular Hgb Conc. 33.9 g/dL (32.0-36.0); Mean Corpuscular Volume 96.1 fL (80.0-100.0); Monocytes # (auto) 0.6 10 ^3/uL (0-1.3); Monocytes % (auto) 16.6 % (0.0-12.0); Neutrophils # (auto) 1.7 10 ^3/uL (1.6-8.6); Neutrophils % (auto) 50.7 % (37.0-80.0); Nucleated Red Blood Cells % 0.1 %; Platelet Count (auto) 147 10^3/uL (140-450); Red Blood Cells 4.03 10^6/uL (4.5-5.90); Red Cell Distribution Width 13.9 % (11.8-14.3); White Blood Cell 3.4 10^3/uL (4.4-10.8)
[2021-05-17 12:14] LABS: Potassium 4.7 mmol/L (3.5-5.1)
== END | disposition home or self-care (01) ==
LOC: CHF HDHVI 07:56
PROVIDERS: ATTEND Internal Medicine Cardiovascular Disease
DX: I13.2 Hypertensive heart and chronic kidney disease with heart failure and with stage 5 chronic kidney disease, or end stage renal disease (principal); E11.22 Type 2 diabetes mellitus with diabetic chronic kidney disease; I50.42 Chronic combined systolic (congestive) and diastolic (congestive) heart failure; N18.6 End stage renal disease; I48.11 Longstanding persistent atrial fibrillation; I42.8 Other cardiomyopathies; I25.10 Atherosclerotic heart disease of native coronary artery without angina pectoris; I25.2 Old myocardial infarction; J44.9 Chronic obstructive pulmonary disease, unspecified; K21.9 Gastro-esophageal reflux disease without esophagitis; E11.40 Type 2 diabetes mellitus with diabetic neuropathy, unspecified; E11.51 Type 2 diabetes mellitus with diabetic peripheral angiopathy without gangrene; E11.319 Type 2 diabetes mellitus with unspecified diabetic retinopathy without macular edema; G89.29 Other chronic pain; M17.12 Unilateral primary osteoarthritis, left knee; F41.9 Anxiety disorder, unspecified; F31.9 Bipolar disorder, unspecified; Z79.4 Long term (current) use of insulin; Z79.01 Long term (current) use of anticoagulants; Z79.82 Long term (current) use of aspirin; Z79.899 Other long term (current) drug therapy; Z87.891 Personal history of nicotine dependence; Z85.46 Personal history of malignant neoplasm of prostate; Z85.038 Personal history of other malignant neoplasm of large intestine; Z95.810 Presence of automatic (implantable) cardiac defibrillator; Z95.5 Presence of coronary angioplasty implant and graft; Z86.73 Personal history of transient ischemic attack (TIA), and cerebral infarction without residual deficits
CPT/HCPCS: 36415; 82565; 83880; 84132; 84520; 85025; 96365; 96366; G0463; J1250; J1642

== ENCOUNTER → 2021-05-19 | Outpatient (CLI) | payer OTHER ==
[2021-05-19] VITALS (9 sets, daily range): BP systolic 101–129; BP diastolic 52–84
== END | disposition home or self-care (01) ==
LOC: CHF HDHVI 08:04
PROVIDERS: ATTEND Internal Medicine Cardiovascular Disease
DX: I13.2 Hypertensive heart and chronic kidney disease with heart failure and with stage 5 chronic kidney disease, or end stage renal disease (principal); E11.22 Type 2 diabetes mellitus with diabetic chronic kidney disease; I50.42 Chronic combined systolic (congestive) and diastolic (congestive) heart failure; N18.6 End stage renal disease; I48.11 Longstanding persistent atrial fibrillation; I42.8 Other cardiomyopathies; R53.83 Other fatigue; I25.10 Atherosclerotic heart disease of native coronary artery without angina pectoris; I25.2 Old myocardial infarction; J44.9 Chronic obstructive pulmonary disease, unspecified; K21.9 Gastro-esophageal reflux disease without esophagitis; E11.51 Type 2 diabetes mellitus with diabetic peripheral angiopathy without gangrene; E11.40 Type 2 diabetes mellitus with diabetic neuropathy, unspecified; E11.319 Type 2 diabetes mellitus with unspecified diabetic retinopathy without macular edema; E78.5 Hyperlipidemia, unspecified; E78.00 Pure hypercholesterolemia, unspecified; E03.9 Hypothyroidism, unspecified; M17.12 Unilateral primary osteoarthritis, left knee; G89.29 Other chronic pain; F41.9 Anxiety disorder, unspecified; F31.9 Bipolar disorder, unspecified; Z79.01 Long term (current) use of anticoagulants; Z79.4 Long term (current) use of insulin; Z79.82 Long term (current) use of aspirin; Z79.899 Other long term (current) drug therapy; Z87.891 Personal history of nicotine dependence; Z95.810 Presence of automatic (implantable) cardiac defibrillator; Z95.5 Presence of coronary angioplasty implant and graft; Z85.46 Personal history of malignant neoplasm of prostate; Z85.038 Personal history of other malignant neoplasm of large intestine; Z86.73 Personal history of transient ischemic attack (TIA), and cerebral infarction without residual deficits
CPT/HCPCS: 83880; 96365; 96366; G0463; J1250; J1642

== ENCOUNTER → 2021-05-21 | Outpatient (CLI) | payer OTHER ==
[2021-05-21] VITALS (9 sets, daily range): BP systolic 103–121; BP diastolic 54–75
== END | disposition home or self-care (01) ==
LOC: CHF HDHVI 07:57
PROVIDERS: ATTEND Internal Medicine Cardiovascular Disease
DX: I13.2 Hypertensive heart and chronic kidney disease with heart failure and with stage 5 chronic kidney disease, or end stage renal disease (principal); E11.22 Type 2 diabetes mellitus with diabetic chronic kidney disease; I50.23 Acute on chronic systolic (congestive) heart failure; N18.6 End stage renal disease; F41.9 Anxiety disorder, unspecified; I25.10 Atherosclerotic heart disease of native coronary artery without angina pectoris; F31.9 Bipolar disorder, unspecified; J44.9 Chronic obstructive pulmonary disease, unspecified; K21.9 Gastro-esophageal reflux disease without esophagitis; E03.9 Hypothyroidism, unspecified; I48.11 Longstanding persistent atrial fibrillation; I25.2 Old myocardial infarction; E78.00 Pure hypercholesterolemia, unspecified; E11.42 Type 2 diabetes mellitus with diabetic polyneuropathy; E11.51 Type 2 diabetes mellitus with diabetic peripheral angiopathy without gangrene; M17.12 Unilateral primary osteoarthritis, left knee; Z90.49 Acquired absence of other specified parts of digestive tract; Z79.01 Long term (current) use of anticoagulants; Z79.82 Long term (current) use of aspirin; Z79.4 Long term (current) use of insulin; Z79.899 Other long term (current) drug therapy; Z87.891 Personal history of nicotine dependence; Z95.810 Presence of automatic (implantable) cardiac defibrillator
CPT/HCPCS: 96365; 96366; G0463; J1250; J1642

== ENCOUNTER → 2021-05-24 | Outpatient (CLI) | payer OTHER ==
[2021-05-24] VITALS (9 sets, daily range): BP systolic 93–127; BP diastolic 41–70
[2021-05-24 11:39] LABS: Basophils # (auto) 0 10 ^3/uL (0-0.2); Basophils % (auto) 0.7 % (0.0-2.0); Eosinophils # (auto) 0.2 10 ^3/uL (0-0.8); Eosinophils % (auto) 4.9 % (0.0-7.0); Hematocrit 39.2 % (41.0-53.0); Hemoglobin 13.4 g/dL (13.5-17.5); Lymphocytes % (auto) 25.8 % (10.0-50.0); Mean Corpuscular Hgb Conc. 34.1 g/dL (32.0-36.0); Mean Corpuscular Volume 96.6 fL (80.0-100.0); Monocytes # (auto) 0.6 10 ^3/uL (0-1.3); Monocytes % (auto) 16.2 % (0.0-12.0); Neutrophils % (auto) 52.4 % (37.0-80.0); Nucleated Red Blood Cells % 0.1 %; Platelet Count (auto) 159 10^3/uL (140-450); Red Blood Cells 4.06 10^6/uL (4.5-5.90); Red Cell Distribution Width 14.3 % (11.8-14.3); White Blood Cell 3.8 10^3/uL (4.4-10.8)
[2021-05-24 12:01] LABS: BUN/Creatinine Ratio 15.1; Calcium 8.6 mg/dL (8.5-10.1); Magnesium 2.4 mg/dL (1.6-2.6)
== END | disposition home or self-care (01) ==
LOC: CHF HDHVI 07:54
PROVIDERS: ATTEND Internal Medicine Cardiovascular Disease
DX: I13.2 Hypertensive heart and chronic kidney disease with heart failure and with stage 5 chronic kidney disease, or end stage renal disease (principal); E11.22 Type 2 diabetes mellitus with diabetic chronic kidney disease; I50.42 Chronic combined systolic (congestive) and diastolic (congestive) heart failure; N18.6 End stage renal disease; D64.9 Anemia, unspecified; I42.8 Other cardiomyopathies; I48.11 Longstanding persistent atrial fibrillation; R53.83 Other fatigue; I25.10 Atherosclerotic heart disease of native coronary artery without angina pectoris; I25.2 Old myocardial infarction; J44.9 Chronic obstructive pulmonary disease, unspecified; K21.9 Gastro-esophageal reflux disease without esophagitis; E11.40 Type 2 diabetes mellitus with diabetic neuropathy, unspecified; E11.319 Type 2 diabetes mellitus with unspecified diabetic retinopathy without macular edema; E11.51 Type 2 diabetes mellitus with diabetic peripheral angiopathy without gangrene; E78.5 Hyperlipidemia, unspecified; E03.9 Hypothyroidism, unspecified; E78.00 Pure hypercholesterolemia, unspecified; M17.12 Unilateral primary osteoarthritis, left knee; G89.29 Other chronic pain; F31.9 Bipolar disorder, unspecified; F41.9 Anxiety disorder, unspecified; Z79.01 Long term (current) use of anticoagulants; Z79.82 Long term (current) use of aspirin; Z79.4 Long term (current) use of insulin; Z79.899 Other long term (current) drug therapy; Z87.891 Personal history of nicotine dependence; Z95.810 Presence of automatic (implantable) cardiac defibrillator; Z95.5 Presence of coronary angioplasty implant and graft; Z85.46 Personal history of malignant neoplasm of prostate; Z85.038 Personal history of other malignant neoplasm of large intestine; Z86.73 Personal history of transient ischemic attack (TIA), and cerebral infarction without residual deficits
CPT/HCPCS: 36415; 80048; 83735; 83880; 85025; 85049; 96365; 96366; G0463; J1250; J1642

== ENCOUNTER → 2021-05-28 | Outpatient (CLI) | payer OTHER ==
[2021-05-28] VITALS (9 sets, daily range): BP systolic 105–131; BP diastolic 52–82
== END | disposition home or self-care (01) ==
LOC: CHF HDHVI 07:57
PROVIDERS: ATTEND Internal Medicine Cardiovascular Disease
DX: I13.2 Hypertensive heart and chronic kidney disease with heart failure and with stage 5 chronic kidney disease, or end stage renal disease (principal); E11.22 Type 2 diabetes mellitus with diabetic chronic kidney disease; I50.42 Chronic combined systolic (congestive) and diastolic (congestive) heart failure; R53.83 Other fatigue; N18.6 End stage renal disease; I48.11 Longstanding persistent atrial fibrillation; I42.8 Other cardiomyopathies; I25.10 Atherosclerotic heart disease of native coronary artery without angina pectoris; F31.9 Bipolar disorder, unspecified; K21.9 Gastro-esophageal reflux disease without esophagitis; E78.5 Hyperlipidemia, unspecified; I25.2 Old myocardial infarction; G89.29 Other chronic pain; E78.00 Pure hypercholesterolemia, unspecified; Z79.82 Long term (current) use of aspirin; Z79.4 Long term (current) use of insulin; Z79.899 Other long term (current) drug therapy; Z87.891 Personal history of nicotine dependence; Z79.01 Long term (current) use of anticoagulants
CPT/HCPCS: 96365; 96366; G0463; J1250; J1642

== ENCOUNTER → 2021-06-01 | Outpatient (CLI) | payer OTHER ==
[~2021-06-01] MED LIST changes: -DOBUTamine 1000MCG/ML 250 ML IV ONE
[2021-06-01 12:54] LABS: Basophils # (auto) 0 10 ^3/uL (0-0.2); Basophils % (auto) 0.7 % (0.0-2.0); Eosinophils # (auto) 0.1 10 ^3/uL (0-0.8); Eosinophils % (auto) 3.9 % (0.0-7.0); Hemoglobin 13.6 g/dL (13.5-17.5); Lymphocytes # (auto) 0.9 10 ^3/uL (0.4-5.4); Lymphocytes % (auto) 27.8 % (10.0-50.0); Mean Corpuscular Hemoglobin 33.4 pg (28.0-32.0); Mean Corpuscular Hgb Conc. 34.8 g/dL (32.0-36.0); Mean Corpuscular Volume 96.1 fL (80.0-100.0); Monocytes # (auto) 0.5 10 ^3/uL (0-1.3); Monocytes % (auto) 14.2 % (0.0-12.0); Neutrophils # (auto) 1.8 10 ^3/uL (1.6-8.6); Neutrophils % (auto) 53.4 % (37.0-80.0); Nucleated Red Blood Cells % 0.1 %; Red Blood Cells 4.06 10^6/uL (4.5-5.90); Red Cell Distribution Width 14.6 % (11.8-14.3); White Blood Cell 3.3 10^3/uL (4.4-10.8)
[2021-06-01 13:09] LABS: Potassium 4.4 mmol/L (3.5-5.1)
[2021-06-01 13:33] LABS: Albumin 3.7 g/dL (3.4-5.0); Bilirubin, Total 0.8 mg/dL (0.2-1.0); Calcium 8.6 mg/dL (8.5-10.1); Magnesium 2.5 mg/dL (1.6-2.6); Total Protein 6.9 g/dL (6.4-8.2)
[2021-06-01 14:20] VITALS: BP 121/77
== END | disposition home or self-care (01) ==
LOC: CHF HDHVI 11:23
PROVIDERS: ATTEND Internal Medicine Cardiovascular Disease
DX: M47.817 Spondylosis without myelopathy or radiculopathy, lumbosacral region (principal); M48.07 Spinal stenosis, lumbosacral region; M47.815 Spondylosis without myelopathy or radiculopathy, thoracolumbar region; M48.05 Spinal stenosis, thoracolumbar region; I70.0 Atherosclerosis of aorta; I50.23 Acute on chronic systolic (congestive) heart failure; J90 Pleural effusion, not elsewhere classified; M25.78 Osteophyte, vertebrae; M54.5 Low back pain; R06.02 Shortness of breath; I48.91 Unspecified atrial fibrillation; R53.83 Other fatigue; R94.31 Abnormal electrocardiogram [ECG] [EKG]; Z95.810 Presence of automatic (implantable) cardiac defibrillator
CPT/HCPCS: 36415; 71046; 72131; 80053; 83735; 83880; 85025; 85049; 93005; G0463; J1642

== ENCOUNTER → 2021-06-02 | Outpatient (CLI) | payer OTHER ==
[~2021-06-02] VITALS: Ht 30.5 cm; Wt 82.7 kg
[2021-06-02] VITALS (10 sets, daily range): BP systolic 95–120; BP diastolic 51–74
[~2021-06-02] MED LIST changes: +DOBUTamine 1000MCG/ML 250 ML IV ONE; +FUROSEMIDE 40 MG/4 ML VIAL IV ONE; +FUROSEMIDE 40 MG/4 ML VIAL ONE; +POTASSIUM CHL 10 Meq TABLET PO ONE; +VANCOMYCIN 1GM/250ML 250 ML IV ONE; +cefTRIAXone 1GM/50ML D5W 50 ML IV ONE; +cefTRIAXone SOD 1,000 MG VL ONE
== END | disposition home or self-care (01) ==
LOC: CHF HDHVI 08:09
PROVIDERS: ATTEND Internal Medicine Cardiovascular Disease
DX: I13.2 Hypertensive heart and chronic kidney disease with heart failure and with stage 5 chronic kidney disease, or end stage renal disease (principal); E11.22 Type 2 diabetes mellitus with diabetic chronic kidney disease; I50.42 Chronic combined systolic (congestive) and diastolic (congestive) heart failure; N18.6 End stage renal disease; E87.6 Hypokalemia; I48.11 Longstanding persistent atrial fibrillation; M25.78 Osteophyte, vertebrae; I70.0 Atherosclerosis of aorta; I25.10 Atherosclerotic heart disease of native coronary artery without angina pectoris; I25.2 Old myocardial infarction; I42.8 Other cardiomyopathies; J44.9 Chronic obstructive pulmonary disease, unspecified; K21.9 Gastro-esophageal reflux disease without esophagitis; E11.40 Type 2 diabetes mellitus with diabetic neuropathy, unspecified; E11.51 Type 2 diabetes mellitus with diabetic peripheral angiopathy without gangrene; E11.319 Type 2 diabetes mellitus with unspecified diabetic retinopathy without macular edema; E78.5 Hyperlipidemia, unspecified; E03.9 Hypothyroidism, unspecified; E78.00 Pure hypercholesterolemia, unspecified; G89.29 Other chronic pain; F41.9 Anxiety disorder, unspecified; F31.9 Bipolar disorder, unspecified; M17.12 Unilateral primary osteoarthritis, left knee; Z79.01 Long term (current) use of anticoagulants; Z79.4 Long term (current) use of insulin; Z79.82 Long term (current) use of aspirin; Z79.899 Other long term (current) drug therapy; Z87.891 Personal history of nicotine dependence; Z95.810 Presence of automatic (implantable) cardiac defibrillator
CPT/HCPCS: 83880; 96365; 96366; 96367; 96375; G0463; J0696; J1250; J1642; J1940; J3370

== ENCOUNTER → 2021-06-03 | Outpatient (CLI) | payer OTHER ==
[2021-06-03] VITALS (9 sets, daily range): BP systolic 98–142; BP diastolic 48–80
[~2021-06-03] MED LIST changes: -FUROSEMIDE 40 MG/4 ML VIAL IV ONE; -FUROSEMIDE 40 MG/4 ML VIAL ONE; -POTASSIUM CHL 10 Meq TABLET PO ONE; -VANCOMYCIN 1GM/250ML 250 ML IV ONE; -cefTRIAXone 1GM/50ML D5W 50 ML IV ONE; -cefTRIAXone SOD 1,000 MG VL ONE
[2021-06-03 12:00] LABS: Basophils # (auto) 0 10 ^3/uL (0-0.2); Basophils % (auto) 0.8 % (0.0-2.0); Eosinophils # (auto) 0.2 10 ^3/uL (0-0.8); Eosinophils % (auto) 4.4 % (0.0-7.0); Hematocrit 39.4 % (41.0-53.0); Hemoglobin 13.5 g/dL (13.5-17.5); Lymphocytes # (auto) 1.2 10 ^3/uL (0.4-5.4); Mean Corpuscular Hgb Conc. 34.2 g/dL (32.0-36.0); Mean Corpuscular Volume 96.5 fL (80.0-100.0); Monocytes # (auto) 0.6 10 ^3/uL (0-1.3); Neutrophils % (auto) 49.8 % (37.0-80.0); Nucleated Red Blood Cells % 0.1 %; Red Blood Cells 4.08 10^6/uL (4.5-5.90); Red Cell Distribution Width 14.4 % (11.8-14.3); White Blood Cell 3.9 10^3/uL (4.4-10.8)
[2021-06-03 12:01] LABS: Potassium 4.2 mmol/L (3.5-5.1)
== END | disposition home or self-care (01) ==
LOC: CHF HDHVI 08:12
PROVIDERS: ATTEND Internal Medicine Cardiovascular Disease
DX: I13.2 Hypertensive heart and chronic kidney disease with heart failure and with stage 5 chronic kidney disease, or end stage renal disease (principal); E11.22 Type 2 diabetes mellitus with diabetic chronic kidney disease; I50.42 Chronic combined systolic (congestive) and diastolic (congestive) heart failure; N18.6 End stage renal disease; I48.11 Longstanding persistent atrial fibrillation; I42.8 Other cardiomyopathies; I25.10 Atherosclerotic heart disease of native coronary artery without angina pectoris; I25.2 Old myocardial infarction; J44.9 Chronic obstructive pulmonary disease, unspecified; R53.83 Other fatigue; K21.9 Gastro-esophageal reflux disease without esophagitis; E11.40 Type 2 diabetes mellitus with diabetic neuropathy, unspecified; E11.51 Type 2 diabetes mellitus with diabetic peripheral angiopathy without gangrene; E11.319 Type 2 diabetes mellitus with unspecified diabetic retinopathy without macular edema; E78.5 Hyperlipidemia, unspecified; E78.00 Pure hypercholesterolemia, unspecified; E03.9 Hypothyroidism, unspecified; M17.12 Unilateral primary osteoarthritis, left knee; F41.9 Anxiety disorder, unspecified; F31.9 Bipolar disorder, unspecified; G89.29 Other chronic pain; Z79.4 Long term (current) use of insulin; Z79.01 Long term (current) use of anticoagulants; Z79.82 Long term (current) use of aspirin; Z79.899 Other long term (current) drug therapy; Z87.891 Personal history of nicotine dependence; Z95.810 Presence of automatic (implantable) cardiac defibrillator; Z95.5 Presence of coronary angioplasty implant and graft; Z85.46 Personal history of malignant neoplasm of prostate; Z85.038 Personal history of other malignant neoplasm of large intestine; Z86.73 Personal history of transient ischemic attack (TIA), and cerebral infarction without residual deficits
CPT/HCPCS: 36415; 82565; 83880; 84132; 84520; 85025; 85049; 96365; 96366; G0463; J1250; J1642

== ENCOUNTER → 2021-06-04 | Outpatient (CLI) | payer OTHER ==
[~2021-06-04] VITALS: Ht 30.5 cm; Wt 81.9 kg
[2021-06-04] VITALS (9 sets, daily range): BP systolic 92–131; BP diastolic 47–72
== END | disposition home or self-care (01) ==
LOC: CHF HDHVI 08:05
PROVIDERS: ATTEND Internal Medicine Cardiovascular Disease
DX: I13.2 Hypertensive heart and chronic kidney disease with heart failure and with stage 5 chronic kidney disease, or end stage renal disease (principal); E11.22 Type 2 diabetes mellitus with diabetic chronic kidney disease; I50.42 Chronic combined systolic (congestive) and diastolic (congestive) heart failure; N18.6 End stage renal disease; I42.8 Other cardiomyopathies; I48.11 Longstanding persistent atrial fibrillation; I25.10 Atherosclerotic heart disease of native coronary artery without angina pectoris; I25.2 Old myocardial infarction; K21.9 Gastro-esophageal reflux disease without esophagitis; J44.9 Chronic obstructive pulmonary disease, unspecified; E11.40 Type 2 diabetes mellitus with diabetic neuropathy, unspecified; E11.51 Type 2 diabetes mellitus with diabetic peripheral angiopathy without gangrene; E11.319 Type 2 diabetes mellitus with unspecified diabetic retinopathy without macular edema; E78.5 Hyperlipidemia, unspecified; E03.9 Hypothyroidism, unspecified; E78.00 Pure hypercholesterolemia, unspecified; M17.12 Unilateral primary osteoarthritis, left knee; G89.29 Other chronic pain; F41.9 Anxiety disorder, unspecified; F31.9 Bipolar disorder, unspecified; Z79.4 Long term (current) use of insulin; Z79.01 Long term (current) use of anticoagulants; Z79.82 Long term (current) use of aspirin; Z79.899 Other long term (current) drug therapy; Z87.891 Personal history of nicotine dependence; Z85.46 Personal history of malignant neoplasm of prostate; Z85.038 Personal history of other malignant neoplasm of large intestine; Z95.810 Presence of automatic (implantable) cardiac defibrillator; Z95.5 Presence of coronary angioplasty implant and graft; Z86.73 Personal history of transient ischemic attack (TIA), and cerebral infarction without residual deficits
CPT/HCPCS: 96365; 96366; G0463; J1250; J1642

== ENCOUNTER → 2021-06-07 | Outpatient (CLI) | payer OTHER ==
[~2021-06-07] VITALS: Ht 30.5 cm; Wt 83.1 kg
[2021-06-07] VITALS (9 sets, daily range): BP systolic 87–118; BP diastolic 43–67
[~2021-06-07] MED LIST changes: +CYANOCOBALAMIN (B-12) 1000 MCG/1 ML VIAL IM ONE; +CYANOCOBALAMIN (B-12) 1000 MCG/1 ML VIAL ONE; +DIGOXIN 0.125 MG TAB PO ONE; +DIGOXIN 0.25 MG TAB ONE; +SODIUM CHLORIDE 0.9% 250 ML IV ONE
[2021-06-07 08:51] LABS: Basophils # (auto) 0 10 ^3/uL (0-0.2); Basophils % (auto) 0.7 % (0.0-2.0); Eosinophils # (auto) 0.1 10 ^3/uL (0-0.8); Eosinophils % (auto) 3.5 % (0.0-7.0); Hematocrit 41.4 % (41.0-53.0); Hemoglobin 14.1 g/dL (13.5-17.5); Mean Corpuscular Hemoglobin 32.9 pg (28.0-32.0); Mean Corpuscular Hgb Conc. 34.1 g/dL (32.0-36.0); Mean Corpuscular Volume 96.6 fL (80.0-100.0); Neutrophils # (auto) 2.1 10 ^3/uL (1.6-8.6); Neutrophils % (auto) 50.3 % (37.0-80.0); Nucleated Red Blood Cells % 0.1 %; Red Blood Cells 4.29 10^6/uL (4.5-5.90); Red Cell Distribution Width 14.7 % (11.8-14.3); White Blood Cell 4.1 10^3/uL (4.4-10.8)
[2021-06-07 08:54] LABS: Lymphocytes # (auto) 1.2 10 ^3/uL (0.4-5.4); Lymphocytes % (auto) 28.2 % (10.0-50.0); Monocytes # (auto) 0.7 10 ^3/uL (0-1.3); Monocytes % (auto) 17.3 % (0.0-12.0)
[2021-06-07 09:02] LABS: Albumin 3.6 g/dL (3.4-5.0); Calcium 8.4 mg/dL (8.5-10.1); Magnesium 2.7 mg/dL (1.6-2.6); Potassium 4.7 mmol/L (3.5-5.1)
[2021-06-07 09:06] LABS: BUN/Creatinine Ratio 14.3; Bilirubin, Total 0.8 mg/dL (0.2-1.0); Total Protein 7.1 g/dL (6.4-8.2)
== END | disposition home or self-care (01) ==
LOC: CHF HDHVI 07:56
PROVIDERS: ATTEND Internal Medicine Cardiovascular Disease
DX: I13.2 Hypertensive heart and chronic kidney disease with heart failure and with stage 5 chronic kidney disease, or end stage renal disease (principal); E11.22 Type 2 diabetes mellitus with diabetic chronic kidney disease; I50.42 Chronic combined systolic (congestive) and diastolic (congestive) heart failure; N18.6 End stage renal disease; I25.10 Atherosclerotic heart disease of native coronary artery without angina pectoris; I25.2 Old myocardial infarction; I48.11 Longstanding persistent atrial fibrillation; I42.8 Other cardiomyopathies; R53.83 Other fatigue; K21.9 Gastro-esophageal reflux disease without esophagitis; J44.9 Chronic obstructive pulmonary disease, unspecified; E11.51 Type 2 diabetes mellitus with diabetic peripheral angiopathy without gangrene; E11.40 Type 2 diabetes mellitus with diabetic neuropathy, unspecified; E11.319 Type 2 diabetes mellitus with unspecified diabetic retinopathy without macular edema; E78.5 Hyperlipidemia, unspecified; E78.00 Pure hypercholesterolemia, unspecified; E03.9 Hypothyroidism, unspecified; M19.90 Unspecified osteoarthritis, unspecified site; G89.29 Other chronic pain; F41.9 Anxiety disorder, unspecified; F31.9 Bipolar disorder, unspecified; Z79.4 Long term (current) use of insulin; Z79.82 Long term (current) use of aspirin; Z79.899 Other long term (current) drug therapy; Z87.891 Personal history of nicotine dependence; Z85.46 Personal history of malignant neoplasm of prostate; Z85.038 Personal history of other malignant neoplasm of large intestine; Z95.810 Presence of automatic (implantable) cardiac defibrillator; Z95.5 Presence of coronary angioplasty implant and graft; Z86.73 Personal history of transient ischemic attack (TIA), and cerebral infarction without residual deficits
CPT/HCPCS: 36415; 80053; 80162; 83735; 83880; 85025; 85049; 96365; 96366; 96372; G0463; J1250; J1642; J3420; J7050; 96361

== ENCOUNTER → 2021-06-09 | Outpatient (CLI) | payer OTHER ==
[2021-06-09] VITALS (9 sets, daily range): BP systolic 101–130; BP diastolic 53–75
[~2021-06-09] MED LIST changes: -CYANOCOBALAMIN (B-12) 1000 MCG/1 ML VIAL IM ONE; -CYANOCOBALAMIN (B-12) 1000 MCG/1 ML VIAL ONE; -DIGOXIN 0.125 MG TAB PO ONE; -DIGOXIN 0.25 MG TAB ONE; -SODIUM CHLORIDE 0.9% 250 ML IV ONE
== END | disposition home or self-care (01) ==
LOC: CHF HDHVI 07:54
PROVIDERS: ATTEND Internal Medicine Cardiovascular Disease
DX: I13.2 Hypertensive heart and chronic kidney disease with heart failure and with stage 5 chronic kidney disease, or end stage renal disease (principal); E11.22 Type 2 diabetes mellitus with diabetic chronic kidney disease; I50.42 Chronic combined systolic (congestive) and diastolic (congestive) heart failure; N18.6 End stage renal disease; R53.83 Other fatigue; I48.11 Longstanding persistent atrial fibrillation; I42.8 Other cardiomyopathies; I25.10 Atherosclerotic heart disease of native coronary artery without angina pectoris; I25.2 Old myocardial infarction; J44.9 Chronic obstructive pulmonary disease, unspecified; K21.9 Gastro-esophageal reflux disease without esophagitis; E11.51 Type 2 diabetes mellitus with diabetic peripheral angiopathy without gangrene; E11.319 Type 2 diabetes mellitus with unspecified diabetic retinopathy without macular edema; E11.40 Type 2 diabetes mellitus with diabetic neuropathy, unspecified; E78.5 Hyperlipidemia, unspecified; E03.9 Hypothyroidism, unspecified; M17.12 Unilateral primary osteoarthritis, left knee; G89.29 Other chronic pain; F41.9 Anxiety disorder, unspecified; F31.9 Bipolar disorder, unspecified; Z79.4 Long term (current) use of insulin; Z79.82 Long term (current) use of aspirin; Z79.899 Other long term (current) drug therapy; Z87.891 Personal history of nicotine dependence; Z85.038 Personal history of other malignant neoplasm of large intestine; Z85.46 Personal history of malignant neoplasm of prostate; Z95.810 Presence of automatic (implantable) cardiac defibrillator; Z95.5 Presence of coronary angioplasty implant and graft; Z86.73 Personal history of transient ischemic attack (TIA), and cerebral infarction without residual deficits
CPT/HCPCS: 83880; 96365; 96366; G0463; J1250; J1642

== ENCOUNTER → 2021-06-11 | Outpatient (CLI) | payer OTHER ==
[2021-06-11] VITALS (9 sets, daily range): BP systolic 96–120; BP diastolic 56–80
== END | disposition home or self-care (01) ==
LOC: CHF HDHVI 07:54
PROVIDERS: ATTEND Internal Medicine Cardiovascular Disease
DX: I13.2 Hypertensive heart and chronic kidney disease with heart failure and with stage 5 chronic kidney disease, or end stage renal disease (principal); E11.22 Type 2 diabetes mellitus with diabetic chronic kidney disease; I50.42 Chronic combined systolic (congestive) and diastolic (congestive) heart failure; N18.6 End stage renal disease; I25.10 Atherosclerotic heart disease of native coronary artery without angina pectoris; I25.2 Old myocardial infarction; I48.11 Longstanding persistent atrial fibrillation; I42.8 Other cardiomyopathies; R53.83 Other fatigue; J44.9 Chronic obstructive pulmonary disease, unspecified; K21.9 Gastro-esophageal reflux disease without esophagitis; E11.51 Type 2 diabetes mellitus with diabetic peripheral angiopathy without gangrene; E11.40 Type 2 diabetes mellitus with diabetic neuropathy, unspecified; E11.319 Type 2 diabetes mellitus with unspecified diabetic retinopathy without macular edema; E78.5 Hyperlipidemia, unspecified; E78.00 Pure hypercholesterolemia, unspecified; E03.9 Hypothyroidism, unspecified; M17.12 Unilateral primary osteoarthritis, left knee; G89.29 Other chronic pain; F41.9 Anxiety disorder, unspecified; F31.9 Bipolar disorder, unspecified; Z79.4 Long term (current) use of insulin; Z79.82 Long term (current) use of aspirin; Z79.899 Other long term (current) drug therapy; Z87.891 Personal history of nicotine dependence; Z85.46 Personal history of malignant neoplasm of prostate; Z85.038 Personal history of other malignant neoplasm of large intestine; Z95.810 Presence of automatic (implantable) cardiac defibrillator; Z95.5 Presence of coronary angioplasty implant and graft; Z86.73 Personal history of transient ischemic attack (TIA), and cerebral infarction without residual deficits
CPT/HCPCS: 96365; 96366; G0463; J1250; J1642

== ENCOUNTER 2021-06-14 11:52 | Day surgery (SDC) | payer OTHER ==
[~2021-06-14 11:52] MED LIST changes: -DOBUTamine 1000MCG/ML 250 ML IV ONE
[2021-06-14] MEDS ORDERED: diphenhdrAMINE HCL 50 MG/1 ML VL IV PRN (12:15)
[2021-06-14] MEDS ORDERED: MIDAZOLAM HCL 1MG/1ML-2 ML VIAL IV ONE (12:15)
[2021-06-14] MEDS ORDERED: fentaNYL CITRATE 100 MCG/2 ML VL IV ONE (12:15)
== END 2021-06-14 15:30 | disposition home or self-care (01) ==
LOC: CATH 11:52
PROVIDERS: ATTEND Internal Medicine Cardiovascular Disease
DX: I48.91 Unspecified atrial fibrillation (principal); I11.0 Hypertensive heart disease with heart failure; I25.810 Atherosclerosis of coronary artery bypass graft(s) without angina pectoris; D68.9 Coagulation defect, unspecified; Z88.8 Allergy status to other drugs, medicaments and biological substances; Z87.891 Personal history of nicotine dependence; Z20.822 Contact with and (suspected) exposure to COVID-19
CPT/HCPCS: 36415; 87426; 92960; J1200; J1642; J2250; 93005; 99152

== ENCOUNTER → 2021-06-14 | Outpatient (CLI) | payer OTHER ==
[2021-06-14] VITALS (9 sets, daily range): BP systolic 111–129; BP diastolic 56–88
[2021-06-14 08:49] LABS: Basophils # (auto) 0 10 ^3/uL (0-0.2); Basophils % (auto) 1.1 % (0.0-2.0); Eosinophils # (auto) 0.1 10 ^3/uL (0-0.8); Eosinophils % (auto) 4.2 % (0.0-7.0); Hematocrit 42.7 % (41.0-53.0); Hemoglobin 14.4 g/dL (13.5-17.5); Lymphocytes # (auto) 1.2 10 ^3/uL (0.4-5.4); Lymphocytes % (auto) 33.6 % (10.0-50.0); Mean Corpuscular Hemoglobin 32.7 pg (28.0-32.0); Mean Corpuscular Hgb Conc. 33.8 g/dL (32.0-36.0); Mean Corpuscular Volume 96.8 fL (80.0-100.0); Monocytes # (auto) 0.5 10 ^3/uL (0-1.3); Monocytes % (auto) 15.2 % (0.0-12.0); Neutrophils # (auto) 1.6 10 ^3/uL (1.6-8.6); Neutrophils % (auto) 45.9 % (37.0-80.0); Nucleated Red Blood Cells % 0.1 %; Red Blood Cells 4.41 10^6/uL (4.5-5.90); Red Cell Distribution Width 14.7 % (11.8-14.3); White Blood Cell 3.6 10^3/uL (4.4-10.8)
[2021-06-14 09:05] LABS: INR 1.18 (0.9-1.15); Partial Thromboplastin Time 29.3 sec (23.0-31.2)
[2021-06-14 09:09] LABS: BUN/Creatinine Ratio 14.9; Calcium 8.8 mg/dL (8.5-10.1); Magnesium 2.7 mg/dL (1.6-2.6); Potassium 3.9 mmol/L (3.5-5.1)
== END | disposition home or self-care (01) ==
LOC: CHF HDHVI 07:45
PROVIDERS: ATTEND Internal Medicine Cardiovascular Disease
DX: I13.2 Hypertensive heart and chronic kidney disease with heart failure and with stage 5 chronic kidney disease, or end stage renal disease (principal); E11.22 Type 2 diabetes mellitus with diabetic chronic kidney disease; I50.42 Chronic combined systolic (congestive) and diastolic (congestive) heart failure; N18.6 End stage renal disease; I25.10 Atherosclerotic heart disease of native coronary artery without angina pectoris; I25.2 Old myocardial infarction; I48.11 Longstanding persistent atrial fibrillation; I42.8 Other cardiomyopathies; J44.9 Chronic obstructive pulmonary disease, unspecified; K21.9 Gastro-esophageal reflux disease without esophagitis; E78.5 Hyperlipidemia, unspecified; E03.9 Hypothyroidism, unspecified; E78.00 Pure hypercholesterolemia, unspecified; E11.40 Type 2 diabetes mellitus with diabetic neuropathy, unspecified; E11.51 Type 2 diabetes mellitus with diabetic peripheral angiopathy without gangrene; E11.319 Type 2 diabetes mellitus with unspecified diabetic retinopathy without macular edema; M17.12 Unilateral primary osteoarthritis, left knee; G89.29 Other chronic pain; F41.9 Anxiety disorder, unspecified; F31.9 Bipolar disorder, unspecified; Z79.4 Long term (current) use of insulin; Z79.82 Long term (current) use of aspirin; Z79.899 Other long term (current) drug therapy; Z87.891 Personal history of nicotine dependence; Z85.46 Personal history of malignant neoplasm of prostate; Z85.038 Personal history of other malignant neoplasm of large intestine; Z95.5 Presence of coronary angioplasty implant and graft; Z95.810 Presence of automatic (implantable) cardiac defibrillator; Z86.73 Personal history of transient ischemic attack (TIA), and cerebral infarction without residual deficits
CPT/HCPCS: 36415; 80048; 80162; 83735; 83880; 85025; 85610; 85730; 93005; 96365; 96366; G0463; J1250; J1642

== ENCOUNTER → 2021-06-18 | Outpatient (CLI) | payer OTHER ==
[2021-06-18] VITALS (9 sets, daily range): BP systolic 93–115; BP diastolic 42–73
[~2021-06-18] MED LIST changes: +DOBUTamine 1000MCG/ML 250 ML IV ONE
== END | disposition home or self-care (01) ==
LOC: CHF HDHVI 07:49
PROVIDERS: ATTEND Internal Medicine Cardiovascular Disease
DX: I13.2 Hypertensive heart and chronic kidney disease with heart failure and with stage 5 chronic kidney disease, or end stage renal disease (principal); E11.22 Type 2 diabetes mellitus with diabetic chronic kidney disease; I50.42 Chronic combined systolic (congestive) and diastolic (congestive) heart failure; N18.6 End stage renal disease; I42.8 Other cardiomyopathies; I48.11 Longstanding persistent atrial fibrillation; I25.10 Atherosclerotic heart disease of native coronary artery without angina pectoris; I25.2 Old myocardial infarction; J44.9 Chronic obstructive pulmonary disease, unspecified; K21.9 Gastro-esophageal reflux disease without esophagitis; E11.40 Type 2 diabetes mellitus with diabetic neuropathy, unspecified; E11.51 Type 2 diabetes mellitus with diabetic peripheral angiopathy without gangrene; E11.319 Type 2 diabetes mellitus with unspecified diabetic retinopathy without macular edema; E78.5 Hyperlipidemia, unspecified; E78.00 Pure hypercholesterolemia, unspecified; E03.9 Hypothyroidism, unspecified; M17.12 Unilateral primary osteoarthritis, left knee; G89.29 Other chronic pain; F41.9 Anxiety disorder, unspecified; F31.9 Bipolar disorder, unspecified; Z79.82 Long term (current) use of aspirin; Z79.4 Long term (current) use of insulin; Z79.899 Other long term (current) drug therapy; Z87.891 Personal history of nicotine dependence; Z85.46 Personal history of malignant neoplasm of prostate; Z85.038 Personal history of other malignant neoplasm of large intestine; Z95.810 Presence of automatic (implantable) cardiac defibrillator; Z95.5 Presence of coronary angioplasty implant and graft; Z86.73 Personal history of transient ischemic attack (TIA), and cerebral infarction without residual deficits
CPT/HCPCS: 96365; 96366; G0463; J1250; J1642

== ENCOUNTER → 2021-06-21 | Outpatient (CLI) | payer OTHER ==
[2021-06-21] VITALS (9 sets, daily range): BP systolic 102–122; BP diastolic 55–77
[~2021-06-21] VITALS: Ht 30.5 cm; Wt 80.3 kg
[2021-06-21 11:34] LABS: Basophils # (auto) 0 10 ^3/uL (0-0.2); Basophils % (auto) 0.8 % (0.0-2.0); Eosinophils # (auto) 0.1 10 ^3/uL (0-0.8); Eosinophils % (auto) 4.5 % (0.0-7.0); Hematocrit 40.6 % (41.0-53.0); Hemoglobin 13.8 g/dL (13.5-17.5); Lymphocytes # (auto) 1.1 10 ^3/uL (0.4-5.4); Lymphocytes % (auto) 32.9 % (10.0-50.0); Mean Corpuscular Volume 96.9 fL (80.0-100.0); Monocytes # (auto) 0.5 10 ^3/uL (0-1.3); Monocytes % (auto) 16.6 % (0.0-12.0); Neutrophils # (auto) 1.5 10 ^3/uL (1.6-8.6); Neutrophils % (auto) 45.2 % (37.0-80.0); Nucleated Red Blood Cells % 0.2 %; Red Blood Cells 4.18 10^6/uL (4.5-5.90); White Blood Cell 3.3 10^3/uL (4.4-10.8)
[2021-06-21 11:41] LABS: Calcium 8.8 mg/dL (8.5-10.1); Potassium 4.4 mmol/L (3.5-5.1)
[2021-06-21 11:44] LABS: Magnesium 2.7 mg/dL (1.6-2.6)
== END | disposition home or self-care (01) ==
LOC: CHF HDHVI 07:50
PROVIDERS: ATTEND Internal Medicine Cardiovascular Disease
DX: I13.2 Hypertensive heart and chronic kidney disease with heart failure and with stage 5 chronic kidney disease, or end stage renal disease (principal); E11.22 Type 2 diabetes mellitus with diabetic chronic kidney disease; I50.42 Chronic combined systolic (congestive) and diastolic (congestive) heart failure; N18.6 End stage renal disease; I25.10 Atherosclerotic heart disease of native coronary artery without angina pectoris; I25.2 Old myocardial infarction; I48.11 Longstanding persistent atrial fibrillation; I42.8 Other cardiomyopathies; J44.9 Chronic obstructive pulmonary disease, unspecified; K21.9 Gastro-esophageal reflux disease without esophagitis; E11.40 Type 2 diabetes mellitus with diabetic neuropathy, unspecified; E11.51 Type 2 diabetes mellitus with diabetic peripheral angiopathy without gangrene; E11.319 Type 2 diabetes mellitus with unspecified diabetic retinopathy without macular edema; E78.5 Hyperlipidemia, unspecified; E78.00 Pure hypercholesterolemia, unspecified; E03.9 Hypothyroidism, unspecified; M17.12 Unilateral primary osteoarthritis, left knee; G89.29 Other chronic pain; F41.9 Anxiety disorder, unspecified; F31.9 Bipolar disorder, unspecified; Z79.82 Long term (current) use of aspirin; Z79.4 Long term (current) use of insulin; Z79.899 Other long term (current) drug therapy; Z87.891 Personal history of nicotine dependence; Z95.810 Presence of automatic (implantable) cardiac defibrillator; Z95.5 Presence of coronary angioplasty implant and graft; Z86.73 Personal history of transient ischemic attack (TIA), and cerebral infarction without residual deficits
CPT/HCPCS: 36415; 80048; 80162; 83735; 83880; 85025; 96365; 96366; G0463; J1250; J1642

== ENCOUNTER → 2021-06-23 | Outpatient (CLI) | payer OTHER ==
[2021-06-23] VITALS (9 sets, daily range): BP systolic 100–119; BP diastolic 52–72
[~2021-06-23] MED LIST changes: +DIGOXIN 0.125 MG TAB PO ONE; +DIGOXIN 0.25 MG TAB ONE
== END | disposition home or self-care (01) ==
LOC: CHF HDHVI 07:44
PROVIDERS: ATTEND Internal Medicine Cardiovascular Disease
DX: I13.2 Hypertensive heart and chronic kidney disease with heart failure and with stage 5 chronic kidney disease, or end stage renal disease (principal); E11.22 Type 2 diabetes mellitus with diabetic chronic kidney disease; I50.42 Chronic combined systolic (congestive) and diastolic (congestive) heart failure; N18.6 End stage renal disease; I48.11 Longstanding persistent atrial fibrillation; I42.8 Other cardiomyopathies; R53.83 Other fatigue; I25.10 Atherosclerotic heart disease of native coronary artery without angina pectoris; I25.2 Old myocardial infarction; E11.51 Type 2 diabetes mellitus with diabetic peripheral angiopathy without gangrene; E11.42 Type 2 diabetes mellitus with diabetic polyneuropathy; E11.319 Type 2 diabetes mellitus with unspecified diabetic retinopathy without macular edema; E78.5 Hyperlipidemia, unspecified; E03.9 Hypothyroidism, unspecified; K21.9 Gastro-esophageal reflux disease without esophagitis; J44.9 Chronic obstructive pulmonary disease, unspecified; G89.29 Other chronic pain; M17.12 Unilateral primary osteoarthritis, left knee; F41.9 Anxiety disorder, unspecified; F31.9 Bipolar disorder, unspecified; Z79.4 Long term (current) use of insulin; Z79.82 Long term (current) use of aspirin; Z79.899 Other long term (current) drug therapy; Z87.891 Personal history of nicotine dependence; Z85.46 Personal history of malignant neoplasm of prostate; Z85.038 Personal history of other malignant neoplasm of large intestine; Z95.810 Presence of automatic (implantable) cardiac defibrillator; Z95.5 Presence of coronary angioplasty implant and graft; Z86.73 Personal history of transient ischemic attack (TIA), and cerebral infarction without residual deficits
CPT/HCPCS: 96365; 96366; G0463; J1250; J1642

== ENCOUNTER → 2021-06-25 | Outpatient (CLI) | payer OTHER ==
[2021-06-25] VITALS (9 sets, daily range): BP systolic 85–125; BP diastolic 46–70
== END | disposition home or self-care (01) ==
LOC: CHF HDHVI 08:02
PROVIDERS: ATTEND Internal Medicine Cardiovascular Disease
DX: I13.2 Hypertensive heart and chronic kidney disease with heart failure and with stage 5 chronic kidney disease, or end stage renal disease (principal); E11.22 Type 2 diabetes mellitus with diabetic chronic kidney disease; I50.42 Chronic combined systolic (congestive) and diastolic (congestive) heart failure; N18.6 End stage renal disease; I48.11 Longstanding persistent atrial fibrillation; I42.8 Other cardiomyopathies; R53.83 Other fatigue; I25.10 Atherosclerotic heart disease of native coronary artery without angina pectoris; I25.2 Old myocardial infarction; J44.9 Chronic obstructive pulmonary disease, unspecified; K21.9 Gastro-esophageal reflux disease without esophagitis; E11.51 Type 2 diabetes mellitus with diabetic peripheral angiopathy without gangrene; E11.40 Type 2 diabetes mellitus with diabetic neuropathy, unspecified; E11.319 Type 2 diabetes mellitus with unspecified diabetic retinopathy without macular edema; E78.5 Hyperlipidemia, unspecified; E78.00 Pure hypercholesterolemia, unspecified; E03.9 Hypothyroidism, unspecified; M17.12 Unilateral primary osteoarthritis, left knee; G89.29 Other chronic pain; F41.9 Anxiety disorder, unspecified; F31.9 Bipolar disorder, unspecified; Z79.4 Long term (current) use of insulin; Z79.82 Long term (current) use of aspirin; Z79.899 Other long term (current) drug therapy; Z87.891 Personal history of nicotine dependence; Z85.46 Personal history of malignant neoplasm of prostate; Z85.038 Personal history of other malignant neoplasm of large intestine; Z95.5 Presence of coronary angioplasty implant and graft; Z95.810 Presence of automatic (implantable) cardiac defibrillator; Z86.73 Personal history of transient ischemic attack (TIA), and cerebral infarction without residual deficits
CPT/HCPCS: 96365; 96366; G0463; J1250; J1642

== ENCOUNTER → 2021-06-28 | Outpatient (CLI) | payer OTHER ==
[2021-06-28] VITALS (10 sets, daily range): BP systolic 75–107; BP diastolic 42–59
[~2021-06-28] MED LIST changes: -DIGOXIN 0.125 MG TAB PO ONE; -DIGOXIN 0.25 MG TAB ONE; +SODIUM CHLORIDE 0.9% 500 ML IV ONE
[2021-06-28 12:01] LABS: BUN/Creatinine Ratio 13.3; Calcium 8.8 mg/dL (8.5-10.1); Magnesium 2.5 mg/dL (1.6-2.6)
== END | disposition home or self-care (01) ==
LOC: CHF HDHVI 07:50
PROVIDERS: ATTEND Internal Medicine Cardiovascular Disease
DX: I13.2 Hypertensive heart and chronic kidney disease with heart failure and with stage 5 chronic kidney disease, or end stage renal disease (principal); E11.22 Type 2 diabetes mellitus with diabetic chronic kidney disease; I50.42 Chronic combined systolic (congestive) and diastolic (congestive) heart failure; N18.6 End stage renal disease; I25.10 Atherosclerotic heart disease of native coronary artery without angina pectoris; I25.2 Old myocardial infarction; I48.11 Longstanding persistent atrial fibrillation; I42.8 Other cardiomyopathies; J44.9 Chronic obstructive pulmonary disease, unspecified; K21.9 Gastro-esophageal reflux disease without esophagitis; E11.40 Type 2 diabetes mellitus with diabetic neuropathy, unspecified; E11.319 Type 2 diabetes mellitus with unspecified diabetic retinopathy without macular edema; E11.51 Type 2 diabetes mellitus with diabetic peripheral angiopathy without gangrene; E78.5 Hyperlipidemia, unspecified; E78.00 Pure hypercholesterolemia, unspecified; E03.9 Hypothyroidism, unspecified; M17.12 Unilateral primary osteoarthritis, left knee; G89.29 Other chronic pain; F41.9 Anxiety disorder, unspecified; F31.9 Bipolar disorder, unspecified; Z79.01 Long term (current) use of anticoagulants; Z79.82 Long term (current) use of aspirin; Z79.4 Long term (current) use of insulin; Z79.899 Other long term (current) drug therapy; Z87.891 Personal history of nicotine dependence; Z85.46 Personal history of malignant neoplasm of prostate; Z85.038 Personal history of other malignant neoplasm of large intestine; Z95.5 Presence of coronary angioplasty implant and graft; Z95.810 Presence of automatic (implantable) cardiac defibrillator; Z86.73 Personal history of transient ischemic attack (TIA), and cerebral infarction without residual deficits
CPT/HCPCS: 36415; 80048; 80162; 83735; 83880; 96365; 96366; G0463; J1250; J1642; J7040; 96361

== ENCOUNTER → 2021-06-30 | Outpatient (CLI) | payer OTHER ==
[2021-06-30] VITALS (9 sets, daily range): BP systolic 99–131; BP diastolic 55–80
[~2021-06-30] MED LIST changes: -SODIUM CHLORIDE 0.9% 500 ML IV ONE
== END | disposition home or self-care (01) ==
LOC: CHF HDHVI 07:50
PROVIDERS: ATTEND Internal Medicine Cardiovascular Disease
DX: I13.2 Hypertensive heart and chronic kidney disease with heart failure and with stage 5 chronic kidney disease, or end stage renal disease (principal); E11.22 Type 2 diabetes mellitus with diabetic chronic kidney disease; I50.42 Chronic combined systolic (congestive) and diastolic (congestive) heart failure; N18.6 End stage renal disease; I48.11 Longstanding persistent atrial fibrillation; I42.8 Other cardiomyopathies; I25.10 Atherosclerotic heart disease of native coronary artery without angina pectoris; I25.2 Old myocardial infarction; J44.9 Chronic obstructive pulmonary disease, unspecified; K21.9 Gastro-esophageal reflux disease without esophagitis; E11.40 Type 2 diabetes mellitus with diabetic neuropathy, unspecified; E11.51 Type 2 diabetes mellitus with diabetic peripheral angiopathy without gangrene; E11.319 Type 2 diabetes mellitus with unspecified diabetic retinopathy without macular edema; E78.5 Hyperlipidemia, unspecified; E03.9 Hypothyroidism, unspecified; E78.00 Pure hypercholesterolemia, unspecified; M17.12 Unilateral primary osteoarthritis, left knee; G89.29 Other chronic pain; F41.9 Anxiety disorder, unspecified; F31.9 Bipolar disorder, unspecified; Z79.4 Long term (current) use of insulin; Z79.01 Long term (current) use of anticoagulants; Z79.82 Long term (current) use of aspirin; Z79.899 Other long term (current) drug therapy; Z87.891 Personal history of nicotine dependence; Z85.46 Personal history of malignant neoplasm of prostate; Z85.038 Personal history of other malignant neoplasm of large intestine; Z95.5 Presence of coronary angioplasty implant and graft; Z95.810 Presence of automatic (implantable) cardiac defibrillator; Z86.73 Personal history of transient ischemic attack (TIA), and cerebral infarction without residual deficits
CPT/HCPCS: 96365; 96366; G0463; J1250; J1642

== ENCOUNTER → 2021-07-02 | Outpatient (CLI) | payer OTHER ==
[2021-07-02] VITALS (9 sets, daily range): BP systolic 84–113; BP diastolic 47–69
[~2021-07-02] MED LIST changes: +SODIUM CHLORIDE 0.9% 250 ML IV ONE
== END | disposition home or self-care (01) ==
LOC: CHF HDHVI 07:50
PROVIDERS: ATTEND Internal Medicine Cardiovascular Disease
DX: I13.2 Hypertensive heart and chronic kidney disease with heart failure and with stage 5 chronic kidney disease, or end stage renal disease (principal); E11.22 Type 2 diabetes mellitus with diabetic chronic kidney disease; I50.42 Chronic combined systolic (congestive) and diastolic (congestive) heart failure; N18.6 End stage renal disease; I48.11 Longstanding persistent atrial fibrillation; I42.8 Other cardiomyopathies; I25.10 Atherosclerotic heart disease of native coronary artery without angina pectoris; I25.2 Old myocardial infarction; J44.9 Chronic obstructive pulmonary disease, unspecified; K21.9 Gastro-esophageal reflux disease without esophagitis; E11.51 Type 2 diabetes mellitus with diabetic peripheral angiopathy without gangrene; E11.40 Type 2 diabetes mellitus with diabetic neuropathy, unspecified; E11.319 Type 2 diabetes mellitus with unspecified diabetic retinopathy without macular edema; E78.5 Hyperlipidemia, unspecified; E03.9 Hypothyroidism, unspecified; E78.00 Pure hypercholesterolemia, unspecified; M17.12 Unilateral primary osteoarthritis, left knee; G89.29 Other chronic pain; F41.9 Anxiety disorder, unspecified; F31.9 Bipolar disorder, unspecified; Z79.4 Long term (current) use of insulin; Z79.82 Long term (current) use of aspirin; Z79.01 Long term (current) use of anticoagulants; Z79.899 Other long term (current) drug therapy; Z87.891 Personal history of nicotine dependence; Z85.46 Personal history of malignant neoplasm of prostate; Z85.038 Personal history of other malignant neoplasm of large intestine; Z95.5 Presence of coronary angioplasty implant and graft; Z95.810 Presence of automatic (implantable) cardiac defibrillator; Z86.73 Personal history of transient ischemic attack (TIA), and cerebral infarction without residual deficits
CPT/HCPCS: 96365; 96366; G0463; J1250; J1642; J7050; 96361

== ENCOUNTER → 2021-07-06 | Outpatient (CLI) | payer OTHER ==
[~2021-07-06] VITALS: Ht 30.5 cm; Wt 83.9 kg
[2021-07-06] VITALS (8 sets, daily range): BP systolic 102–130; BP diastolic 56–76
[~2021-07-06] MED LIST changes: +CYANOCOBALAMIN (B-12) 1000 MCG/1 ML VIAL IM ONE; +CYANOCOBALAMIN (B-12) 1000 MCG/1 ML VIAL ONE; +KETOROLAC TROMETH 60MG/2ML VIAL IM ONE; +KETOROLAC TROMETH 60MG/2ML VIAL ONE; -SODIUM CHLORIDE 0.9% 250 ML IV ONE
[2021-07-06 11:38] LABS: Basophils # (auto) 0 10 ^3/uL (0-0.2); Basophils % (auto) 0.8 % (0.0-2.0); Eosinophils # (auto) 0.1 10 ^3/uL (0-0.8); Eosinophils % (auto) 3.5 % (0.0-7.0); Hematocrit 40.1 % (41.0-53.0); Hemoglobin 13.7 g/dL (13.5-17.5); Lymphocytes # (auto) 1.1 10 ^3/uL (0.4-5.4); Lymphocytes % (auto) 32.3 % (10.0-50.0); Mean Corpuscular Hemoglobin 32.9 pg (28.0-32.0); Mean Corpuscular Hgb Conc. 34.1 g/dL (32.0-36.0); Mean Corpuscular Volume 96.3 fL (80.0-100.0); Monocytes # (auto) 0.6 10 ^3/uL (0-1.3); Monocytes % (auto) 16.8 % (0.0-12.0); Neutrophils # (auto) 1.6 10 ^3/uL (1.6-8.6); Neutrophils % (auto) 46.6 % (37.0-80.0); Nucleated Red Blood Cells % 0.1 %; Red Blood Cells 4.16 10^6/uL (4.5-5.90); Red Cell Distribution Width 14.5 % (11.8-14.3); White Blood Cell 3.4 10^3/uL (4.4-10.8)
[2021-07-06 11:44] LABS: Potassium 4.4 mmol/L (3.5-5.1)
[2021-07-06 11:50] LABS: BUN/Creatinine Ratio 15.7; Calcium 8.8 mg/dL (8.5-10.1); Magnesium 2.6 mg/dL (1.6-2.6)
== END | disposition home or self-care (01) ==
LOC: CHF HDHVI 07:51
PROVIDERS: ATTEND Internal Medicine Cardiovascular Disease
DX: I13.2 Hypertensive heart and chronic kidney disease with heart failure and with stage 5 chronic kidney disease, or end stage renal disease (principal); E11.22 Type 2 diabetes mellitus with diabetic chronic kidney disease; I50.42 Chronic combined systolic (congestive) and diastolic (congestive) heart failure; N18.6 End stage renal disease; M54.9 Dorsalgia, unspecified; R53.83 Other fatigue; I25.10 Atherosclerotic heart disease of native coronary artery without angina pectoris; I25.2 Old myocardial infarction; I48.11 Longstanding persistent atrial fibrillation; I42.8 Other cardiomyopathies; J44.9 Chronic obstructive pulmonary disease, unspecified; K21.9 Gastro-esophageal reflux disease without esophagitis; E11.51 Type 2 diabetes mellitus with diabetic peripheral angiopathy without gangrene; E11.40 Type 2 diabetes mellitus with diabetic neuropathy, unspecified; E11.319 Type 2 diabetes mellitus with unspecified diabetic retinopathy without macular edema; E78.5 Hyperlipidemia, unspecified; E03.9 Hypothyroidism, unspecified; M17.12 Unilateral primary osteoarthritis, left knee; G89.29 Other chronic pain; F41.9 Anxiety disorder, unspecified; F31.9 Bipolar disorder, unspecified; Z79.01 Long term (current) use of anticoagulants; Z79.82 Long term (current) use of aspirin; Z79.4 Long term (current) use of insulin; Z79.899 Other long term (current) drug therapy; Z87.891 Personal history of nicotine dependence; Z85.46 Personal history of malignant neoplasm of prostate; Z85.038 Personal history of other malignant neoplasm of large intestine; Z95.5 Presence of coronary angioplasty implant and graft; Z95.810 Presence of automatic (implantable) cardiac defibrillator; Z86.73 Personal history of transient ischemic attack (TIA), and cerebral infarction without residual deficits
CPT/HCPCS: 36415; 80048; 80162; 83735; 83880; 85025; 96365; 96366; 96372; G0463; J1250; J1642; J1885; J3420

== ENCOUNTER → 2021-07-09 | Outpatient (CLI) | payer OTHER ==
[2021-07-09] VITALS (9 sets, daily range): BP systolic 103–123; BP diastolic 53–74
[~2021-07-09] MED LIST changes: -CYANOCOBALAMIN (B-12) 1000 MCG/1 ML VIAL IM ONE; -CYANOCOBALAMIN (B-12) 1000 MCG/1 ML VIAL ONE; -KETOROLAC TROMETH 60MG/2ML VIAL IM ONE; -KETOROLAC TROMETH 60MG/2ML VIAL ONE
== END | disposition home or self-care (01) ==
LOC: CHF HDHVI 07:44
PROVIDERS: ATTEND Internal Medicine Cardiovascular Disease
DX: I13.2 Hypertensive heart and chronic kidney disease with heart failure and with stage 5 chronic kidney disease, or end stage renal disease (principal); E11.22 Type 2 diabetes mellitus with diabetic chronic kidney disease; I50.42 Chronic combined systolic (congestive) and diastolic (congestive) heart failure; N18.6 End stage renal disease; I48.11 Longstanding persistent atrial fibrillation; I42.8 Other cardiomyopathies; R53.83 Other fatigue; I25.10 Atherosclerotic heart disease of native coronary artery without angina pectoris; I25.2 Old myocardial infarction; J44.9 Chronic obstructive pulmonary disease, unspecified; K21.9 Gastro-esophageal reflux disease without esophagitis; E11.40 Type 2 diabetes mellitus with diabetic neuropathy, unspecified; E11.51 Type 2 diabetes mellitus with diabetic peripheral angiopathy without gangrene; E11.319 Type 2 diabetes mellitus with unspecified diabetic retinopathy without macular edema; E78.5 Hyperlipidemia, unspecified; E78.00 Pure hypercholesterolemia, unspecified; E03.9 Hypothyroidism, unspecified; M17.12 Unilateral primary osteoarthritis, left knee; G89.29 Other chronic pain; F41.9 Anxiety disorder, unspecified; F31.9 Bipolar disorder, unspecified; Z79.01 Long term (current) use of anticoagulants; Z79.4 Long term (current) use of insulin; Z79.82 Long term (current) use of aspirin; Z79.899 Other long term (current) drug therapy; Z87.891 Personal history of nicotine dependence; Z85.46 Personal history of malignant neoplasm of prostate; Z85.038 Personal history of other malignant neoplasm of large intestine; Z95.5 Presence of coronary angioplasty implant and graft; Z95.810 Presence of automatic (implantable) cardiac defibrillator; Z86.73 Personal history of transient ischemic attack (TIA), and cerebral infarction without residual deficits
CPT/HCPCS: 96365; 96366; G0463; J1250; J1642

== ENCOUNTER → 2021-07-12 | Outpatient (CLI) | payer OTHER ==
[2021-07-12] VITALS (9 sets, daily range): BP systolic 85–126; BP diastolic 43–81
[2021-07-12 11:56] LABS: Hematocrit 39.5 % (41.0-53.0); Hemoglobin 13.1 g/dL (13.5-17.5); Mean Corpuscular Hemoglobin 32.4 pg (28.0-32.0); Mean Corpuscular Hgb Conc. 33.2 g/dL (32.0-36.0); Mean Corpuscular Volume 97.5 fL (80.0-100.0); Red Blood Cells 4.05 10^6/uL (4.5-5.90); Red Cell Distribution Width 14.7 % (11.8-14.3); White Blood Cell 3.4 10^3/uL (4.4-10.8)
[2021-07-12 12:04] LABS: BUN/Creatinine Ratio 14.4; Magnesium 2.5 mg/dL (1.6-2.6); Potassium 4.1 mmol/L (3.5-5.1)
[2021-07-12 12:13] LABS: Band Neutrophils % (manual) 0; Blast Cells 0; Metamyelocytes % 0; Myelocytes % 0; Promyelocytes % 0; Reactive Lymphocytes 0
[2021-07-12 12:53] LABS: Basophils % (manual) 1 (0.0-2.0); Eosinophils % (manual) 4 (0-7); Lymphocytes % (manual) 32 (10.0-50.0); Monocytes % (manual) 13 (0-12)
== END | disposition home or self-care (01) ==
LOC: CHF HDHVI 07:55
PROVIDERS: ATTEND Internal Medicine Cardiovascular Disease
DX: I13.2 Hypertensive heart and chronic kidney disease with heart failure and with stage 5 chronic kidney disease, or end stage renal disease (principal); E11.22 Type 2 diabetes mellitus with diabetic chronic kidney disease; I50.42 Chronic combined systolic (congestive) and diastolic (congestive) heart failure; N18.6 End stage renal disease; I48.11 Longstanding persistent atrial fibrillation; I42.8 Other cardiomyopathies; R53.83 Other fatigue; I25.10 Atherosclerotic heart disease of native coronary artery without angina pectoris; I25.2 Old myocardial infarction; K21.9 Gastro-esophageal reflux disease without esophagitis; J44.9 Chronic obstructive pulmonary disease, unspecified; E11.40 Type 2 diabetes mellitus with diabetic neuropathy, unspecified; E11.51 Type 2 diabetes mellitus with diabetic peripheral angiopathy without gangrene; E11.319 Type 2 diabetes mellitus with unspecified diabetic retinopathy without macular edema; E78.00 Pure hypercholesterolemia, unspecified; E78.5 Hyperlipidemia, unspecified; E03.9 Hypothyroidism, unspecified; F41.9 Anxiety disorder, unspecified; F31.9 Bipolar disorder, unspecified; Z79.01 Long term (current) use of anticoagulants; Z79.4 Long term (current) use of insulin; Z79.82 Long term (current) use of aspirin; Z79.899 Other long term (current) drug therapy; Z87.891 Personal history of nicotine dependence; Z85.46 Personal history of malignant neoplasm of prostate; Z85.038 Personal history of other malignant neoplasm of large intestine; Z95.5 Presence of coronary angioplasty implant and graft; Z95.810 Presence of automatic (implantable) cardiac defibrillator; Z86.73 Personal history of transient ischemic attack (TIA), and cerebral infarction without residual deficits
CPT/HCPCS: 36415; 80048; 83735; 83880; 85007; 85027; 96365; 96366; G0463; J1250; J1642

== ENCOUNTER → 2021-07-14 | Outpatient (CLI) | payer OTHER ==
[2021-07-14] VITALS (9 sets, daily range): BP systolic 103–130; BP diastolic 55–87
== END | disposition home or self-care (01) ==
LOC: CHF HDHVI 07:49
PROVIDERS: ATTEND Internal Medicine Cardiovascular Disease
DX: I13.2 Hypertensive heart and chronic kidney disease with heart failure and with stage 5 chronic kidney disease, or end stage renal disease (principal); E11.22 Type 2 diabetes mellitus with diabetic chronic kidney disease; I50.42 Chronic combined systolic (congestive) and diastolic (congestive) heart failure; N18.6 End stage renal disease; I25.10 Atherosclerotic heart disease of native coronary artery without angina pectoris; I25.2 Old myocardial infarction; I48.11 Longstanding persistent atrial fibrillation; I42.8 Other cardiomyopathies; J44.9 Chronic obstructive pulmonary disease, unspecified; K21.9 Gastro-esophageal reflux disease without esophagitis; E11.40 Type 2 diabetes mellitus with diabetic neuropathy, unspecified; E11.51 Type 2 diabetes mellitus with diabetic peripheral angiopathy without gangrene; E11.319 Type 2 diabetes mellitus with unspecified diabetic retinopathy without macular edema; E78.5 Hyperlipidemia, unspecified; E78.00 Pure hypercholesterolemia, unspecified; E03.9 Hypothyroidism, unspecified; M17.12 Unilateral primary osteoarthritis, left knee; G89.29 Other chronic pain; F41.9 Anxiety disorder, unspecified; F31.9 Bipolar disorder, unspecified; Z79.01 Long term (current) use of anticoagulants; Z79.4 Long term (current) use of insulin; Z79.82 Long term (current) use of aspirin; Z79.899 Other long term (current) drug therapy; Z87.891 Personal history of nicotine dependence; Z85.46 Personal history of malignant neoplasm of prostate; Z85.038 Personal history of other malignant neoplasm of large intestine; Z95.5 Presence of coronary angioplasty implant and graft; Z95.810 Presence of automatic (implantable) cardiac defibrillator; Z86.73 Personal history of transient ischemic attack (TIA), and cerebral infarction without residual deficits
CPT/HCPCS: 96365; 96366; G0463; J1250; J1642

== ENCOUNTER → 2021-07-19 | Outpatient (CLI) | payer OTHER ==
[2021-07-19] VITALS (9 sets, daily range): BP systolic 87–131; BP diastolic 47–79
[2021-07-19 11:37] LABS: Potassium 4.2 mmol/L (3.5-5.1)
== END | disposition home or self-care (01) ==
LOC: CHF HDHVI 07:47
PROVIDERS: ATTEND Internal Medicine Cardiovascular Disease
DX: I13.2 Hypertensive heart and chronic kidney disease with heart failure and with stage 5 chronic kidney disease, or end stage renal disease (principal); I50.23 Acute on chronic systolic (congestive) heart failure; N18.6 End stage renal disease; I42.9 Cardiomyopathy, unspecified; F41.9 Anxiety disorder, unspecified; I25.10 Atherosclerotic heart disease of native coronary artery without angina pectoris; F31.9 Bipolar disorder, unspecified; J44.9 Chronic obstructive pulmonary disease, unspecified; K21.9 Gastro-esophageal reflux disease without esophagitis; E03.9 Hypothyroidism, unspecified; I25.2 Old myocardial infarction; E78.00 Pure hypercholesterolemia, unspecified; E11.22 Type 2 diabetes mellitus with diabetic chronic kidney disease; E11.51 Type 2 diabetes mellitus with diabetic peripheral angiopathy without gangrene; E11.42 Type 2 diabetes mellitus with diabetic polyneuropathy; M17.12 Unilateral primary osteoarthritis, left knee; I48.11 Longstanding persistent atrial fibrillation; Z79.01 Long term (current) use of anticoagulants; Z79.4 Long term (current) use of insulin; Z79.82 Long term (current) use of aspirin; Z79.899 Other long term (current) drug therapy; Z87.891 Personal history of nicotine dependence; Z95.810 Presence of automatic (implantable) cardiac defibrillator; Z86.73 Personal history of transient ischemic attack (TIA), and cerebral infarction without residual deficits
CPT/HCPCS: 36415; 80162; 82565; 83880; 84132; 84520; 96365; 96366; G0463; J1250; J1642

== ENCOUNTER → 2021-08-20 | Outpatient (CLI) | payer OTHER ==
[2021-08-20] VITALS (9 sets, daily range): BP systolic 110–136; BP diastolic 46–73
[~2021-08-20] VITALS: Ht 165.1 cm; Wt 78.6 kg
== END | disposition home or self-care (01) ==
LOC: CHF HDHVI 07:42
PROVIDERS: ATTEND Internal Medicine Cardiovascular Disease
DX: I13.2 Hypertensive heart and chronic kidney disease with heart failure and with stage 5 chronic kidney disease, or end stage renal disease (principal); E11.22 Type 2 diabetes mellitus with diabetic chronic kidney disease; I50.42 Chronic combined systolic (congestive) and diastolic (congestive) heart failure; N18.6 End stage renal disease; I25.5 Ischemic cardiomyopathy; I25.10 Atherosclerotic heart disease of native coronary artery without angina pectoris; I25.2 Old myocardial infarction; I48.11 Longstanding persistent atrial fibrillation; J44.9 Chronic obstructive pulmonary disease, unspecified; K21.9 Gastro-esophageal reflux disease without esophagitis; E11.51 Type 2 diabetes mellitus with diabetic peripheral angiopathy without gangrene; E11.319 Type 2 diabetes mellitus with unspecified diabetic retinopathy without macular edema; E11.40 Type 2 diabetes mellitus with diabetic neuropathy, unspecified; E78.00 Pure hypercholesterolemia, unspecified; E78.5 Hyperlipidemia, unspecified; E03.9 Hypothyroidism, unspecified; M17.12 Unilateral primary osteoarthritis, left knee; G89.29 Other chronic pain; F41.9 Anxiety disorder, unspecified; F31.9 Bipolar disorder, unspecified; Z79.4 Long term (current) use of insulin; Z79.01 Long term (current) use of anticoagulants; Z79.82 Long term (current) use of aspirin; Z79.899 Other long term (current) drug therapy; Z87.891 Personal history of nicotine dependence; Z85.46 Personal history of malignant neoplasm of prostate; Z85.038 Personal history of other malignant neoplasm of large intestine; Z95.5 Presence of coronary angioplasty implant and graft; Z95.810 Presence of automatic (implantable) cardiac defibrillator; Z86.73 Personal history of transient ischemic attack (TIA), and cerebral infarction without residual deficits
CPT/HCPCS: 96365; 96366; G0463; J1250; J1642

== ENCOUNTER → 2021-08-25 | Outpatient (CLI) | payer OTHER ==
[2021-08-25] VITALS (9 sets, daily range): BP systolic 119–136; BP diastolic 56–76
== END | disposition home or self-care (01) ==
LOC: CHF HDHVI 07:51
PROVIDERS: ATTEND Internal Medicine Cardiovascular Disease
DX: I13.2 Hypertensive heart and chronic kidney disease with heart failure and with stage 5 chronic kidney disease, or end stage renal disease (principal); E11.22 Type 2 diabetes mellitus with diabetic chronic kidney disease; I50.42 Chronic combined systolic (congestive) and diastolic (congestive) heart failure; N18.6 End stage renal disease; I25.5 Ischemic cardiomyopathy; I25.10 Atherosclerotic heart disease of native coronary artery without angina pectoris; I25.2 Old myocardial infarction; I48.11 Longstanding persistent atrial fibrillation; J44.9 Chronic obstructive pulmonary disease, unspecified; K21.9 Gastro-esophageal reflux disease without esophagitis; E11.51 Type 2 diabetes mellitus with diabetic peripheral angiopathy without gangrene; E11.319 Type 2 diabetes mellitus with unspecified diabetic retinopathy without macular edema; E11.42 Type 2 diabetes mellitus with diabetic polyneuropathy; E78.5 Hyperlipidemia, unspecified; E78.00 Pure hypercholesterolemia, unspecified; E03.9 Hypothyroidism, unspecified; M17.12 Unilateral primary osteoarthritis, left knee; G89.29 Other chronic pain; F41.9 Anxiety disorder, unspecified; F31.9 Bipolar disorder, unspecified; Z79.4 Long term (current) use of insulin; Z79.01 Long term (current) use of anticoagulants; Z79.82 Long term (current) use of aspirin; Z79.899 Other long term (current) drug therapy; Z87.891 Personal history of nicotine dependence; Z85.46 Personal history of malignant neoplasm of prostate; Z85.038 Personal history of other malignant neoplasm of large intestine; Z95.5 Presence of coronary angioplasty implant and graft; Z95.810 Presence of automatic (implantable) cardiac defibrillator; Z86.73 Personal history of transient ischemic attack (TIA), and cerebral infarction without residual deficits
CPT/HCPCS: 96365; 96366; G0463; J1250; J1642

== ENCOUNTER → 2021-08-27 | Outpatient (CLI) | payer OTHER ==
[2021-08-27] VITALS (9 sets, daily range): BP systolic 117–146; BP diastolic 57–79
== END | disposition home or self-care (01) ==
LOC: CHF HDHVI 07:51
PROVIDERS: ATTEND Internal Medicine Cardiovascular Disease
DX: I13.2 Hypertensive heart and chronic kidney disease with heart failure and with stage 5 chronic kidney disease, or end stage renal disease (principal); E11.22 Type 2 diabetes mellitus with diabetic chronic kidney disease; I50.42 Chronic combined systolic (congestive) and diastolic (congestive) heart failure; N18.6 End stage renal disease; I25.5 Ischemic cardiomyopathy; I25.10 Atherosclerotic heart disease of native coronary artery without angina pectoris; I25.2 Old myocardial infarction; I48.11 Longstanding persistent atrial fibrillation; J44.9 Chronic obstructive pulmonary disease, unspecified; K21.9 Gastro-esophageal reflux disease without esophagitis; E11.42 Type 2 diabetes mellitus with diabetic polyneuropathy; E11.51 Type 2 diabetes mellitus with diabetic peripheral angiopathy without gangrene; E11.319 Type 2 diabetes mellitus with unspecified diabetic retinopathy without macular edema; E78.5 Hyperlipidemia, unspecified; E78.00 Pure hypercholesterolemia, unspecified; E03.9 Hypothyroidism, unspecified; M17.12 Unilateral primary osteoarthritis, left knee; G89.29 Other chronic pain; F41.9 Anxiety disorder, unspecified; F31.9 Bipolar disorder, unspecified; Z79.4 Long term (current) use of insulin; Z79.82 Long term (current) use of aspirin; Z79.01 Long term (current) use of anticoagulants; Z79.899 Other long term (current) drug therapy; Z87.891 Personal history of nicotine dependence; Z85.46 Personal history of malignant neoplasm of prostate; Z85.038 Personal history of other malignant neoplasm of large intestine; Z95.5 Presence of coronary angioplasty implant and graft; Z95.810 Presence of automatic (implantable) cardiac defibrillator; Z86.73 Personal history of transient ischemic attack (TIA), and cerebral infarction without residual deficits
CPT/HCPCS: 96365; 96366; G0463; J1250; J1642

== ENCOUNTER → 2021-08-30 | Outpatient (CLI) | payer OTHER ==
[2021-08-30] VITALS (9 sets, daily range): BP systolic 100–130; BP diastolic 46–74
[~2021-08-30] MED LIST changes: +CYANOCOBALAMIN (B-12) 1000 MCG/1 ML VIAL IM ONE; +CYANOCOBALAMIN (B-12) 1000 MCG/1 ML VIAL ONE
[2021-08-30 10:34] LABS: Magnesium 2.6 mg/dL (1.6-2.6); Potassium 4.3 mmol/L (3.5-5.1)
== END | disposition home or self-care (01) ==
LOC: CHF HDHVI 07:53
PROVIDERS: ATTEND Internal Medicine Cardiovascular Disease
DX: I13.2 Hypertensive heart and chronic kidney disease with heart failure and with stage 5 chronic kidney disease, or end stage renal disease (principal); E11.22 Type 2 diabetes mellitus with diabetic chronic kidney disease; I50.42 Chronic combined systolic (congestive) and diastolic (congestive) heart failure; N18.6 End stage renal disease; I25.5 Ischemic cardiomyopathy; I25.10 Atherosclerotic heart disease of native coronary artery without angina pectoris; I25.2 Old myocardial infarction; I48.11 Longstanding persistent atrial fibrillation; J44.9 Chronic obstructive pulmonary disease, unspecified; K21.9 Gastro-esophageal reflux disease without esophagitis; E11.42 Type 2 diabetes mellitus with diabetic polyneuropathy; E11.51 Type 2 diabetes mellitus with diabetic peripheral angiopathy without gangrene; E11.319 Type 2 diabetes mellitus with unspecified diabetic retinopathy without macular edema; E78.00 Pure hypercholesterolemia, unspecified; E78.5 Hyperlipidemia, unspecified; E03.9 Hypothyroidism, unspecified; M17.12 Unilateral primary osteoarthritis, left knee; G89.29 Other chronic pain; F41.9 Anxiety disorder, unspecified; F31.9 Bipolar disorder, unspecified; Z79.4 Long term (current) use of insulin; Z79.84 Long term (current) use of oral hypoglycemic drugs; Z79.82 Long term (current) use of aspirin; Z79.01 Long term (current) use of anticoagulants; Z79.899 Other long term (current) drug therapy; Z87.891 Personal history of nicotine dependence; Z85.46 Personal history of malignant neoplasm of prostate; Z85.038 Personal history of other malignant neoplasm of large intestine; Z95.5 Presence of coronary angioplasty implant and graft; Z95.810 Presence of automatic (implantable) cardiac defibrillator; Z86.73 Personal history of transient ischemic attack (TIA), and cerebral infarction without residual deficits
CPT/HCPCS: 36415; 82565; 83735; 83880; 84132; 84520; 96365; 96366; 96372; G0463; J1250; J1642; J3420

== ENCOUNTER → 2021-09-10 | Outpatient (CLI) | payer OTHER ==
[2021-09-10] VITALS (9 sets, daily range): BP systolic 110–137; BP diastolic 50–68
[~2021-09-10] MED LIST changes: +CEPH500C PO; -CLOP75TA28 PO; -CYANOCOBALAMIN (B-12) 1000 MCG/1 ML VIAL IM ONE; -CYANOCOBALAMIN (B-12) 1000 MCG/1 ML VIAL ONE; +DIGO0.25 PO; -GLUCCAP OR; +IBUP400T22 PO; +IVAB1.7T PO; +MEGE40TA4 PO; -METO25TA5 PO; +METO25TA93 PO; +RIVA2.5T PO; -SIMV-8 PO; +TADA20TA48 PO; +TEMA30CA PO; +VITA1TAB10 PO; +[UNRECOGNIZED DRUG - CODE] PO
== END | disposition home or self-care (01) ==
LOC: CHF HDHVI 07:50
PROVIDERS: ATTEND Internal Medicine Cardiovascular Disease
DX: I13.2 Hypertensive heart and chronic kidney disease with heart failure and with stage 5 chronic kidney disease, or end stage renal disease (principal); E11.22 Type 2 diabetes mellitus with diabetic chronic kidney disease; I50.42 Chronic combined systolic (congestive) and diastolic (congestive) heart failure; N18.6 End stage renal disease; I25.5 Ischemic cardiomyopathy; I25.10 Atherosclerotic heart disease of native coronary artery without angina pectoris; I25.2 Old myocardial infarction; I48.11 Longstanding persistent atrial fibrillation; J44.9 Chronic obstructive pulmonary disease, unspecified; K21.9 Gastro-esophageal reflux disease without esophagitis; E11.319 Type 2 diabetes mellitus with unspecified diabetic retinopathy without macular edema; E11.42 Type 2 diabetes mellitus with diabetic polyneuropathy; E11.51 Type 2 diabetes mellitus with diabetic peripheral angiopathy without gangrene; E78.5 Hyperlipidemia, unspecified; E78.00 Pure hypercholesterolemia, unspecified; E03.9 Hypothyroidism, unspecified; M17.12 Unilateral primary osteoarthritis, left knee; G89.29 Other chronic pain; F41.9 Anxiety disorder, unspecified; F31.9 Bipolar disorder, unspecified; Z79.4 Long term (current) use of insulin; Z79.82 Long term (current) use of aspirin; Z79.01 Long term (current) use of anticoagulants; Z79.899 Other long term (current) drug therapy; Z87.891 Personal history of nicotine dependence; Z85.46 Personal history of malignant neoplasm of prostate; Z85.038 Personal history of other malignant neoplasm of large intestine; Z95.5 Presence of coronary angioplasty implant and graft; Z95.810 Presence of automatic (implantable) cardiac defibrillator; Z86.73 Personal history of transient ischemic attack (TIA), and cerebral infarction without residual deficits
CPT/HCPCS: 96365; 96366; G0463; J1250; J1642

== ENCOUNTER 2021-09-14 10:12 | Day surgery (SDC) | payer OTHER ==
[~2021-09-14] VITALS: Ht 180.3 cm; Wt 78.5 kg
[~2021-09-14 10:12] MED LIST changes: -DOBUTamine 1000MCG/ML 250 ML IV ONE; -MEGE40TA4 PO; -TEMA30CA PO
[2021-09-14] MEDS ORDERED: VANCOMYCIN 1GM/250ML 250 ML IV ONE (11:15)
[2021-09-14] MEDS ORDERED: VANCOMYCIN HCL 1000 MG VL ONE (12:05)
[2021-09-14] MEDS ORDERED: LIDOCAINE 2%HCL (LOCAL ANESTH.) INJ 20ML MDV ONE (12:06)
[2021-09-14] MEDS ORDERED: fentaNYL CITRATE 100 MCG/2 ML VL ONE (12:06)
[2021-09-14] MEDS ORDERED: MIDAZOLAM HCL 2MG/2ML 2ml VIAL (1mg/ml) ONE (12:06)
[2021-09-14] MEDS ORDERED: diphenhdrAMINE HCL 50 MG/1 ML VL ONE (12:12)
[2021-09-14] MEDS ORDERED: ceFAZolin 1GM VL ONE (13:57)
[2021-09-14] MEDS ORDERED: ONDANSETRON HCL 4 MG/2 ML VIAL IV PRN (14:45)
[2021-09-14] MEDS ORDERED: ACETAMINOPHEN 325 MG TAB PO PRN (14:45)
== END 2021-09-14 16:39 | disposition home or self-care (01) ==
LOC: CATH 10:12
PROVIDERS: ATTEND Internal Medicine Cardiovascular Disease
DX: Z45.02 Encounter for adjustment and management of automatic implantable cardiac defibrillator (principal); I25.5 Ischemic cardiomyopathy; I11.0 Hypertensive heart disease with heart failure; I50.23 Acute on chronic systolic (congestive) heart failure; I25.2 Old myocardial infarction; I47.2 Ventricular tachycardia; I48.0 Paroxysmal atrial fibrillation; I49.01 Ventricular fibrillation; I25.119 Atherosclerotic heart disease of native coronary artery with unspecified angina pectoris; E78.5 Hyperlipidemia, unspecified; Z95.5 Presence of coronary angioplasty implant and graft; Z87.891 Personal history of nicotine dependence; Z82.49 Family history of ischemic heart disease and other diseases of the circulatory system; Z80.9 Family history of malignant neoplasm, unspecified; Z20.822 Contact with and (suspected) exposure to COVID-19
CPT/HCPCS: 33241; 33249; C9803; J0690; J1200; J2250; J3010; J3370; J7030; U0003

== ENCOUNTER 2021-09-16 03:18 | Inpatient (IN) | payer OTHER ==
[~2021-09-16] VITALS: Ht 180.3 cm; Wt 82.0 kg
[2021-09-16] MEDS ORDERED: ONDANSETRON HCL 4 MG/2 ML VIAL IV ONE (04:15)
[2021-09-16 04:42] LABS: Basophils # (auto) 0 10 ^3/uL (0-0.2); Basophils % (auto) 0.6 % (0.0-2.0); Eosinophils # (auto) 0.2 10 ^3/uL (0-0.8); Eosinophils % (auto) 3.3 % (0.0-7.0); Hematocrit 36.2 % (41.0-53.0); Hemoglobin 12.1 g/dL (13.5-17.5); Lymphocytes # (auto) 1.5 10 ^3/uL (0.4-5.4); Lymphocytes % (auto) 30.7 % (10.0-50.0); Mean Corpuscular Hemoglobin 32.1 pg (28.0-32.0); Mean Corpuscular Hgb Conc. 33.4 g/dL (32.0-36.0); Mean Corpuscular Volume 95.9 fL (80.0-100.0); Monocytes # (auto) 0.7 10 ^3/uL (0-1.3); Monocytes % (auto) 14.7 % (0.0-12.0); Neutrophils # (auto) 2.5 10 ^3/uL (1.6-8.6); Neutrophils % (auto) 50.7 % (37.0-80.0); Nucleated Red Blood Cells % 0.1 %; Red Blood Cells 3.77 10^6/uL (4.5-5.90); Red Cell Distribution Width 13.1 % (11.8-14.3)
[2021-09-16 04:58] LABS: INR 1.12 (0.9-1.15); Partial Thromboplastin Time 24.9 sec (23.6-33.0)
[2021-09-16 04:59] LABS: Albumin 3.2 g/dL (3.4-5.0); Calcium 8.2 mg/dL (8.5-10.1); Magnesium 2.6 mg/dL (1.6-2.6)
[2021-09-16 05:05] LABS: BUN/Creatinine Ratio 16.7; Bilirubin, Total 0.5 mg/dL (0.2-1.0); Total Protein 6.8 g/dL (6.4-8.2)
[2021-09-16 06:31] LABS: Urine Bacteria FEW /hpf (None Seen); Urine Blood Negative /uL (Negative); Urine Specific Gravity 1.008 (1.001-1.035); Urine WBC <1 /hpf (0 - 3)
[2021-09-16] MEDS ORDERED: ENOXAPARIN SOD 40 MG/0.4 ML SYRINGE SC ONE (07:00)
[2021-09-16] MEDS ORDERED: MORPHINE SULFATE INJECTION 2 MG/ML SYRG IV PRN (09:00)
[2021-09-16] MEDS ORDERED: NITROGLYCERIN 0.4 MG SL TAB SL PRN (09:00)
[2021-09-16] MEDS: ENOXAPARIN SOD 80 MG/0.8ML SYRINGE SC SCH ×3 (09:35→21:37)
[2021-09-16] MEDS ORDERED: TEMA30CA PO (14:01)
[2021-09-16] MEDS ORDERED: MEGE40TA4 PO (14:01)
[2021-09-16 14:35] VITALS: BP 110/67
[2021-09-16 16:35] VITALS: BP 114/66
[2021-09-16] MEDS: ONDANSETRON HCL 4 MG/2 ML VIAL IV PRN (17:46)
[2021-09-16 22:01] VITALS: BP 113/63
[2021-09-17 05:00] VITALS: BP 107/58
[2021-09-17 09:00] VITALS: BP 117/66
[2021-09-17] MEDS: ENOXAPARIN SOD 80 MG/0.8ML SYRINGE SC SCH ×2 (10:53→21:39)
[2021-09-17 13:00] VITALS: BP 121/68
[2021-09-17 16:48] VITALS: BP 125/68
[2021-09-17 22:00] VITALS: BP 115/66
[2021-09-18 05:00] VITALS: BP 114/71
[2021-09-18 09:00] VITALS: BP 136/64
[2021-09-18] MEDS: Ensure HIGH Protein Chocolate 8oz Bottle PO SCH ×3 (09:50→19:08)
[2021-09-18] MEDS: ENOXAPARIN SOD 80 MG/0.8ML SYRINGE SC SCH (09:58)
[2021-09-18 13:00] VITALS: BP 117/59
[2021-09-18 16:16] VITALS: BP 107/62
[2021-09-18] MEDS: ceFAZolin 1GM/50ML 50 ML IV SCH (19:08)
[2021-09-18] MEDS: DOBUTamine 1000MCG/ML 250 ML IV SCH (19:08)
[2021-09-18 21:56] VITALS: BP 139/84
[2021-09-19] MEDS: ceFAZolin 1GM/50ML 50 ML IV SCH ×3 (01:36→19:17)
[2021-09-19 05:00] VITALS: BP 127/61
[2021-09-19 08:34] VITALS: BP 109/60
[2021-09-19] MEDS: Ensure HIGH Protein Chocolate 8oz Bottle PO SCH ×3 (09:21→19:18)
[2021-09-19] MEDS: RIVAROXABAN 10 MG TAB PO SCH (09:22)
[2021-09-19 16:01] VITALS: BP 136/74
[2021-09-19] MEDS: DOBUTamine 1000MCG/ML 250 ML IV SCH (19:16)
[2021-09-19 22:31] VITALS: BP 115/62
[2021-09-20] MEDS: ceFAZolin 1GM/50ML 50 ML IV SCH ×3 (01:17→17:57)
[2021-09-20 05:05] VITALS: BP 130/68
[2021-09-20 08:00] VITALS: BP 123/68
[2021-09-20] MEDS: Ensure HIGH Protein Chocolate 8oz Bottle PO SCH ×3 (11:46→17:58)
[2021-09-20] MEDS: RIVAROXABAN 10 MG TAB PO SCH (11:47)
[2021-09-20] MEDS: DOBUTamine 1000MCG/ML 250 ML IV SCH ×3 (11:48→15:47)
[2021-09-20 12:00] VITALS: BP 118/66
[2021-09-20 16:00] VITALS: BP 125/68
[2021-09-20 22:00] VITALS: BP 126/66
[2021-09-20] MEDS: DOCUSATE SOD 100 MG CAP PO SCH (23:04)
[2021-09-21] MEDS: ceFAZolin 1GM/50ML 50 ML IV SCH ×3 (02:25→17:33)
[2021-09-21 05:00] VITALS: BP 135/71
[2021-09-21] MEDS: Ensure HIGH Protein Chocolate 8oz Bottle PO SCH ×3 (08:30→17:35)
[2021-09-21 09:00] VITALS: BP 116/71
[2021-09-21] MEDS: DOCUSATE SOD 100 MG CAP PO SCH ×2 (10:30→20:42)
[2021-09-21] MEDS: RIVAROXABAN 10 MG TAB PO SCH (10:30)
[2021-09-21 12:00] VITALS: BP 113/58
[2021-09-21 13:00] VITALS: BP 113/58
[2021-09-21] MEDS: DOBUTamine 1000MCG/ML 250 ML IV SCH (14:46)
[2021-09-21 17:00] VITALS: BP 129/72
[2021-09-21 22:00] VITALS: BP 126/69
[2021-09-22] VITALS (8 sets, daily range): BP systolic 104–134; BP diastolic 57–81
[2021-09-22] MEDS: ceFAZolin 1GM/50ML 50 ML IV SCH ×3 (03:10→17:54)
[2021-09-22] MEDS: RIVAROXABAN 10 MG TAB PO SCH (10:28)
[2021-09-22] MEDS: DOCUSATE SOD 100 MG CAP PO SCH ×2 (10:30→21:50)
[2021-09-22] MEDS: Ensure HIGH Protein Chocolate 8oz Bottle PO SCH ×2 (10:39→17:54)
[2021-09-22] MEDS: DOBUTamine 1000MCG/ML 250 ML IV SCH (17:53)
[2021-09-23] MEDS: ceFAZolin 1GM/50ML 50 ML IV SCH ×3 (02:45→18:08)
[2021-09-23 04:38] VITALS: BP 123/64
[2021-09-23] MEDS: HYDROcodone-ACET 10/325MG TAB PO PRN ×2 (05:30→18:56)
[2021-09-23] MEDS: DOBUTamine 1000MCG/ML 250 ML IV SCH ×2 (05:32→21:54)
[2021-09-23 08:52] VITALS: BP 118/69
[2021-09-23] MEDS: DOCUSATE SOD 100 MG CAP PO SCH ×2 (09:19→21:54)
[2021-09-23] MEDS: Ensure HIGH Protein Chocolate 8oz Bottle PO SCH ×3 (09:30→18:55)
[2021-09-23] MEDS: RIVAROXABAN 10 MG TAB PO SCH (10:00)
[2021-09-23 12:53] VITALS: BP 121/73
[2021-09-23 16:53] VITALS: BP 119/66
[2021-09-23 21:32] VITALS: BP 127/68
[2021-09-24] MEDS: ceFAZolin 1GM/50ML 50 ML IV SCH ×3 (02:13→17:39)
[2021-09-24 04:52] VITALS: BP 121/68
[2021-09-24 08:49] VITALS: BP 131/56
[2021-09-24] MEDS: DOCUSATE SOD 100 MG CAP PO SCH ×2 (08:56→21:24)
[2021-09-24] MEDS: Ensure HIGH Protein Chocolate 8oz Bottle PO SCH ×3 (08:57→18:16)
[2021-09-24] MEDS: RIVAROXABAN 10 MG TAB PO SCH (08:57)
[2021-09-24 13:01] VITALS: BP 123/70
[2021-09-24 17:30] VITALS: BP 127/58
[2021-09-24] MEDS: DOBUTamine 1000MCG/ML 250 ML IV SCH (18:28)
[2021-09-24] MEDS: HYDROcodone-ACET 10/325MG TAB PO PRN (21:24)
[2021-09-24 22:00] VITALS: BP 115/65
[2021-09-25] MEDS: ceFAZolin 1GM/50ML 50 ML IV SCH ×3 (02:34→18:21)
[2021-09-25 05:00] VITALS: BP 112/60
[2021-09-25 09:00] VITALS: BP 111/62
[2021-09-25] MEDS: RIVAROXABAN 10 MG TAB PO SCH (09:39)
[2021-09-25] MEDS: DOCUSATE SOD 100 MG CAP PO SCH ×2 (09:39→21:49)
[2021-09-25] MEDS: Ensure HIGH Protein Chocolate 8oz Bottle PO SCH ×3 (09:40→18:21)
[2021-09-25 13:30] VITALS: BP 110/60
[2021-09-25] MEDS: HYDROcodone-ACET 10/325MG TAB PO PRN (15:51)
[2021-09-25] MEDS: DOBUTamine 1000MCG/ML 250 ML IV SCH (16:18)
[2021-09-25 16:30] VITALS: BP 113/63
[2021-09-25 22:00] VITALS: BP 110/62
[2021-09-26] MEDS: ceFAZolin 1GM/50ML 50 ML IV SCH ×3 (01:35→18:43)
[2021-09-26 04:47] VITALS: BP 121/71
[2021-09-26] MEDS: HYDROcodone-ACET 10/325MG TAB PO PRN (04:50)
[2021-09-26] MEDS: Ensure HIGH Protein Chocolate 8oz Bottle PO SCH ×3 (08:00→18:00)
[2021-09-26 09:00] VITALS: BP 103/59
[2021-09-26] MEDS: DOCUSATE SOD 100 MG CAP PO SCH ×2 (10:00→22:00)
[2021-09-26] MEDS: RIVAROXABAN 10 MG TAB PO SCH (10:33)
[2021-09-26] MEDS: DOBUTamine 1000MCG/ML 250 ML IV SCH (12:58)
[2021-09-26 13:00] VITALS: BP_SYST 103; BP_SYST 131; BP_DIAS 59; BP_DIAS 66
[2021-09-26 16:58] VITALS: BP 129/65
[2021-09-26 22:00] VITALS: BP 118/78
[2021-09-27] MEDS: ceFAZolin 1GM/50ML 50 ML IV SCH ×3 (03:05→18:01)
[2021-09-27] MEDS: ONDANSETRON HCL 4 MG/2 ML VIAL IV PRN (03:59)
[2021-09-27 05:00] VITALS: BP 124/70
[2021-09-27] MEDS: DOBUTamine 1000MCG/ML 250 ML IV SCH (07:45)
[2021-09-27 09:00] VITALS: BP 121/69
[2021-09-27] MEDS: Ensure HIGH Protein Chocolate 8oz Bottle PO SCH ×3 (10:45→18:03)
[2021-09-27] MEDS: DOCUSATE SOD 100 MG CAP PO SCH ×2 (10:45→21:49)
[2021-09-27] MEDS: RIVAROXABAN 10 MG TAB PO SCH (10:47)
[2021-09-27 13:00] VITALS: BP 122/71
[2021-09-27 15:04] LABS: Albumin 2.7 g/dL (3.4-5.0); BUN/Creatinine Ratio 18.3; Calcium 8.4 mg/dL (8.5-10.1)
[2021-09-27 15:07] LABS: Bilirubin, Total 0.8 mg/dL (0.2-1.0)
[2021-09-27 15:08] LABS: Basophils # (auto) 0 10 ^3/uL (0-0.2); Basophils % (auto) 0.5 % (0.0-2.0); Eosinophils # (auto) 0.1 10 ^3/uL (0-0.8); Hematocrit 28.5 % (41.0-53.0); Hemoglobin 9.8 g/dL (13.5-17.5); Lymphocytes # (auto) 0.6 10 ^3/uL (0.4-5.4); Lymphocytes % (auto) 9.4 % (10.0-50.0); Mean Corpuscular Hemoglobin 32.8 pg (28.0-32.0); Mean Corpuscular Hgb Conc. 34.5 g/dL (32.0-36.0); Monocytes # (auto) 0.8 10 ^3/uL (0-1.3); Monocytes % (auto) 13.2 % (0.0-12.0); Neutrophils # (auto) 4.5 10 ^3/uL (1.6-8.6); Neutrophils % (auto) 75.9 % (37.0-80.0); Nucleated Red Blood Cells % 0.1 %; Red Cell Distribution Width 12.9 % (11.8-14.3); White Blood Cell 5.9 10^3/uL (4.4-10.8)
[2021-09-27 17:27] VITALS: BP 119/66
[2021-09-27 22:00] VITALS: BP 114/63
[2021-09-28] MEDS: ceFAZolin 1GM/50ML 50 ML IV SCH ×2 (02:02→09:51)
[2021-09-28] MEDS: HYDROcodone-ACET 10/325MG TAB PO PRN (02:19)
[2021-09-28 05:30] VITALS: BP 104/62
[2021-09-28] MEDS: DOBUTamine 1000MCG/ML 250 ML IV SCH (06:23)
[2021-09-28] MEDS: Ensure HIGH Protein Chocolate 8oz Bottle PO SCH (08:00)
[2021-09-28 08:38] VITALS: BP 122/66
[2021-09-28] MEDS: RIVAROXABAN 10 MG TAB PO SCH (09:51)
[2021-09-28] MEDS: DOCUSATE SOD 100 MG CAP PO SCH (09:51)
[2021-09-28 13:30] VITALS: BP 118/68
[2021-09-28 17:00] VITALS: BP 128/70
[2021-09-28 17:39] VITALS: BP 128/70
== END 2021-09-28 19:10 | disposition home health service (06) | DRG 64 ==
LOC: EDBD 03:18 → EDUNIT# 03:18 → ER 03:18 → TELE 08:55 → TELE-WESTW 12:51
PROVIDERS: ADMIT Internal Medicine Cardiovascular Disease; ATTEND Internal Medicine Cardiovascular Disease
DX: I63.9 Cerebral infarction, unspecified (principal); I50.21 Acute systolic (congestive) heart failure; D68.59 Other primary thrombophilia; I25.5 Ischemic cardiomyopathy; I11.0 Hypertensive heart disease with heart failure; I48.0 Paroxysmal atrial fibrillation; E78.5 Hyperlipidemia, unspecified; I25.10 Atherosclerotic heart disease of native coronary artery without angina pectoris; Z20.822 Contact with and (suspected) exposure to COVID-19; Z86.73 Personal history of transient ischemic attack (TIA), and cerebral infarction without residual deficits; Z87.442 Personal history of urinary calculi; Z91.81 History of falling; Z95.1 Presence of aortocoronary bypass graft; Z95.810 Presence of automatic (implantable) cardiac defibrillator; Z88.8 Allergy status to other drugs, medicaments and biological substances; Z88.5 Allergy status to narcotic agent
CPT/HCPCS: 36415; 70450; 71045; 80053; 81001; 83735; 83880; 84484; 85025; 85610; 85730; 87426; 93005; 96372; 96374; 97110; 97116; 97163; 97530; G0378; J0690; J2405

== ENCOUNTER → 2021-10-05 | Outpatient (CLI) | payer OTHER ==
[~2021-10-05] MED LIST changes: +MEGE40TA4 PO; +TEMA30CA PO
[2021-10-05 10:28] VITALS: BP 109/67
[2021-10-05 11:08] VITALS: BP 109/67
== END | disposition home or self-care (01) ==
LOC: CHF HDHVI 11:01
PROVIDERS: ATTEND Internal Medicine Cardiovascular Disease
DX: I11.0 Hypertensive heart disease with heart failure (principal); I50.23 Acute on chronic systolic (congestive) heart failure; I25.10 Atherosclerotic heart disease of native coronary artery without angina pectoris; J44.9 Chronic obstructive pulmonary disease, unspecified; E78.5 Hyperlipidemia, unspecified; Z95.0 Presence of cardiac pacemaker
CPT/HCPCS: G0463

== ENCOUNTER 2021-10-07 09:36 | Inpatient (IN) | payer OTHER ==
[2021-10-07] VITALS (13 sets, daily range): BP systolic 85–107; BP diastolic 44–68
[~2021-10-07] VITALS: Ht 175.3 cm; Wt 77.0 kg
[2021-10-07 10:15] LABS: Basophils # (auto) 0 10 ^3/uL (0-0.2); Basophils % (auto) 0.7 % (0.0-2.0); Eosinophils # (auto) 0.1 10 ^3/uL (0-0.8); Eosinophils % (auto) 1.8 % (0.0-7.0); Hematocrit 39.4 % (41.0-53.0); Hemoglobin 13.4 g/dL (13.5-17.5); Lymphocytes % (auto) 25.9 % (10.0-50.0); Mean Corpuscular Hemoglobin 33.4 pg (28.0-32.0); Monocytes # (auto) 0.5 10 ^3/uL (0-1.3); Monocytes % (auto) 12.3 % (0.0-12.0); Neutrophils # (auto) 2.2 10 ^3/uL (1.6-8.6); Neutrophils % (auto) 59.3 % (37.0-80.0); Nucleated Red Blood Cells % 0.1 %; Red Blood Cells 4.02 10^6/uL (4.5-5.90); Red Cell Distribution Width 14.9 % (11.8-14.3); White Blood Cell 3.7 10^3/uL (4.4-10.8)
[2021-10-07 10:33] LABS: Albumin 3.7 g/dL (3.4-5.0); Calcium 9.7 mg/dL (8.5-10.1); Potassium 4.4 mmol/L (3.5-5.1)
[2021-10-07 10:36] LABS: BUN/Creatinine Ratio 8.7; Total Protein 8.5 g/dL (6.4-8.2)
[2021-10-07 10:51] LABS: INR 1.21 (0.9-1.15); Partial Thromboplastin Time 28.6 sec (23.6-33.0)
[2021-10-07] MEDS ORDERED: MEROPENEM 1GM IVPB 100 ML IV ONE (11:15)
[2021-10-07] MEDS ORDERED: VANCOMYCIN 1GM/250ML 250 ML IV ONE (11:15)
[2021-10-07] MEDS ORDERED: VANCOMYCIN HCL 1000 MG VL ONE ×2 (12:21→13:31)
[2021-10-07] MEDS ORDERED: fentaNYL CITRATE 100 MCG/2 ML VL ONE (12:21)
[2021-10-07] MEDS ORDERED: MIDAZOLAM HCL 2MG/2ML 2ml VIAL (1mg/ml) ONE (12:21)
[2021-10-07] MEDS ORDERED: BACITRACIN INJ 50000 UNIT VIAL TOP ONE (12:30)
[2021-10-07] MEDS ORDERED: ceFAZolin 1GM VL ONE ×2 (13:12→13:31)
[2021-10-07] MEDS ORDERED: HYDROmorphone HCL 2 MG/ML VL ONE (13:21)
[2021-10-07] MEDS ORDERED: cefTRIAXone 1GM/50ML D5W 50 ML IV ONE (13:47)
[2021-10-07] MEDS ORDERED: DOBUTamine 1000MCG/ML 250 ML IV SCH (14:30)
[2021-10-07] MEDS ORDERED: MORPHINE SULFATE INJECTION 2 MG/ML SYRG IV PRN (14:30)
[2021-10-07] MEDS ORDERED: NITROGLYCERIN 0.4 MG SL TAB SL PRN (14:30)
[2021-10-07] MEDS ORDERED: DOBUTamine 1000MCG/ML 250 ML IV ONE (15:43)
[2021-10-07] MEDS: DOBUTamine 1000MCG/ML 250 ML IV SCH (20:15)
[2021-10-07] MEDS ORDERED: MEROPENEM 500MG IVPB 50 ML IV SCH (22:00)
[2021-10-07] MEDS: MEROPENEM 1GM IVPB 100 ML IV SCH (22:46)
[2021-10-07] MEDS: SACUBITRIL-VALSARTAN 24mg/26mg TAB PO SCH (22:46)
[2021-10-08] VITALS (9 sets, daily range): BP systolic 98–114; BP diastolic 50–59
[2021-10-08] MEDS ORDERED: FUROSEMIDE 40 MG TAB PO ONE (06:00)
[2021-10-08] MEDS: MEROPENEM 1GM IVPB 100 ML IV SCH (06:22)
[2021-10-08] MEDS: DOBUTamine 1000MCG/ML 250 ML IV SCH (06:24)
[2021-10-08] MEDS ORDERED: RIVAROXABAN 10 MG TAB PO SCH (10:00)
[2021-10-08] MEDS: SACUBITRIL-VALSARTAN 24mg/26mg TAB PO SCH (11:38)
== END 2021-10-08 16:50 | disposition home or self-care (01) | DRG 271 ==
LOC: ER 09:36 → TELE 14:22 → TELE-WESTW 18:39
PROVIDERS: ADMIT Internal Medicine Cardiovascular Disease; ATTEND Internal Medicine Cardiovascular Disease
PROC: 0W983ZZ Drainage of Chest Wall, Percutaneous Approach (ICD-10-PCS; principal; 2021-10-07)
PROC: 0WC Anatomical Regions, General, Extirpation (ICD-10-PCS; 2021-10-07)
DX: T82.9XXA Unspecified complication of cardiac and vascular prosthetic device, implant and graft, initial encounter (principal); I50.22 Chronic systolic (congestive) heart failure; D68.59 Other primary thrombophilia; Y71.2 Prosthetic and other implants, materials and accessory cardiovascular devices associated with adverse incidents; I11.0 Hypertensive heart disease with heart failure; I25.10 Atherosclerotic heart disease of native coronary artery without angina pectoris; I25.5 Ischemic cardiomyopathy; Z20.822 Contact with and (suspected) exposure to COVID-19; Y83.8 Other surgical procedures as the cause of abnormal reaction of the patient, or of later complication, without mention of misadventure at the time of the procedure; I48.0 Paroxysmal atrial fibrillation; Z79.01 Long term (current) use of anticoagulants; Z86.73 Personal history of transient ischemic attack (TIA), and cerebral infarction without residual deficits; Z87.442 Personal history of urinary calculi; Z95.1 Presence of aortocoronary bypass graft; Z95.810 Presence of automatic (implantable) cardiac defibrillator; Z82.49 Family history of ischemic heart disease and other diseases of the circulatory system; Z90.49 Acquired absence of other specified parts of digestive tract; Y92.89 Other specified places as the place of occurrence of the external cause
CPT/HCPCS: 36415; 71045; 80053; 85025; 85610; 85730; 86850; 86900; 86901; 87426; 96365; 96368; 99152; G0378; J0690; J0696; J2185; J2250

== ENCOUNTER → 2021-10-18 | Outpatient (CLI) | payer OTHER ==
[2021-10-18] VITALS (9 sets, daily range): BP systolic 100–125; BP diastolic 45–61
[~2021-10-18] MED LIST changes: +DOBUTamine 1000MCG/ML 250 ML IV ONE
[2021-10-18 11:44] LABS: Calcium 8.6 mg/dL (8.5-10.1); Magnesium 2.6 mg/dL (1.6-2.6); Potassium 3.8 mmol/L (3.5-5.1)
[2021-10-18 11:45] LABS: Basophils # (auto) 0 10 ^3/uL (0-0.2); Basophils % (auto) 0.6 % (0.0-2.0); Eosinophils # (auto) 0.1 10 ^3/uL (0-0.8); Eosinophils % (auto) 2.8 % (0.0-7.0); Hematocrit 34.5 % (41.0-53.0); Hemoglobin 11.7 g/dL (13.5-17.5); Lymphocytes # (auto) 1.4 10 ^3/uL (0.4-5.4); Lymphocytes % (auto) 31.7 % (10.0-50.0); Mean Corpuscular Hemoglobin 33.6 pg (28.0-32.0); Mean Corpuscular Volume 98.9 fL (80.0-100.0); Monocytes # (auto) 0.7 10 ^3/uL (0-1.3); Monocytes % (auto) 14.6 % (0.0-12.0); Neutrophils # (auto) 2.3 10 ^3/uL (1.6-8.6); Neutrophils % (auto) 50.3 % (37.0-80.0); Red Blood Cells 3.48 10^6/uL (4.5-5.90); Red Cell Distribution Width 15.7 % (11.8-14.3); White Blood Cell 4.5 10^3/uL (4.4-10.8)
== END | disposition home or self-care (01) ==
LOC: CHF HDHVI 08:07
PROVIDERS: ATTEND Internal Medicine Cardiovascular Disease
DX: I13.2 Hypertensive heart and chronic kidney disease with heart failure and with stage 5 chronic kidney disease, or end stage renal disease (principal); E11.22 Type 2 diabetes mellitus with diabetic chronic kidney disease; I50.42 Chronic combined systolic (congestive) and diastolic (congestive) heart failure; N18.6 End stage renal disease; I25.5 Ischemic cardiomyopathy; I25.10 Atherosclerotic heart disease of native coronary artery without angina pectoris; I25.2 Old myocardial infarction; J44.9 Chronic obstructive pulmonary disease, unspecified; K21.9 Gastro-esophageal reflux disease without esophagitis; E11.42 Type 2 diabetes mellitus with diabetic polyneuropathy; E11.51 Type 2 diabetes mellitus with diabetic peripheral angiopathy without gangrene; E11.319 Type 2 diabetes mellitus with unspecified diabetic retinopathy without macular edema; E78.00 Pure hypercholesterolemia, unspecified; E78.5 Hyperlipidemia, unspecified; E03.9 Hypothyroidism, unspecified; M17.12 Unilateral primary osteoarthritis, left knee; G89.29 Other chronic pain; F41.9 Anxiety disorder, unspecified; F31.9 Bipolar disorder, unspecified; Z79.01 Long term (current) use of anticoagulants; Z79.4 Long term (current) use of insulin; Z79.82 Long term (current) use of aspirin; Z79.899 Other long term (current) drug therapy; Z87.891 Personal history of nicotine dependence; Z85.46 Personal history of malignant neoplasm of prostate; Z85.038 Personal history of other malignant neoplasm of large intestine; Z95.5 Presence of coronary angioplasty implant and graft; Z95.810 Presence of automatic (implantable) cardiac defibrillator; Z86.73 Personal history of transient ischemic attack (TIA), and cerebral infarction without residual deficits
CPT/HCPCS: 36415; 80048; 83735; 83880; 85025; 96365; 96366; G0463; J1250; J1642

== ENCOUNTER → 2021-10-20 | Outpatient (CLI) | payer OTHER ==
[2021-10-20] VITALS (9 sets, daily range): BP systolic 99–124; BP diastolic 46–65
== END | disposition home or self-care (01) ==
LOC: CHF HDHVI 08:09
PROVIDERS: ATTEND Internal Medicine Cardiovascular Disease
DX: I13.2 Hypertensive heart and chronic kidney disease with heart failure and with stage 5 chronic kidney disease, or end stage renal disease (principal); E11.22 Type 2 diabetes mellitus with diabetic chronic kidney disease; I50.42 Chronic combined systolic (congestive) and diastolic (congestive) heart failure; N18.6 End stage renal disease; I25.5 Ischemic cardiomyopathy; I25.10 Atherosclerotic heart disease of native coronary artery without angina pectoris; I25.2 Old myocardial infarction; I48.11 Longstanding persistent atrial fibrillation; J44.9 Chronic obstructive pulmonary disease, unspecified; K21.9 Gastro-esophageal reflux disease without esophagitis; E11.42 Type 2 diabetes mellitus with diabetic polyneuropathy; E11.319 Type 2 diabetes mellitus with unspecified diabetic retinopathy without macular edema; E11.51 Type 2 diabetes mellitus with diabetic peripheral angiopathy without gangrene; E78.5 Hyperlipidemia, unspecified; E03.9 Hypothyroidism, unspecified; E78.00 Pure hypercholesterolemia, unspecified; M17.12 Unilateral primary osteoarthritis, left knee; G89.29 Other chronic pain; F41.9 Anxiety disorder, unspecified; F31.9 Bipolar disorder, unspecified; Z79.4 Long term (current) use of insulin; Z79.01 Long term (current) use of anticoagulants; Z79.82 Long term (current) use of aspirin; Z79.899 Other long term (current) drug therapy; Z87.891 Personal history of nicotine dependence; Z85.46 Personal history of malignant neoplasm of prostate; Z85.038 Personal history of other malignant neoplasm of large intestine; Z95.810 Presence of automatic (implantable) cardiac defibrillator; Z95.5 Presence of coronary angioplasty implant and graft; Z86.73 Personal history of transient ischemic attack (TIA), and cerebral infarction without residual deficits
CPT/HCPCS: 96365; 96366; G0463; J1250; J1642

== ENCOUNTER → 2021-10-25 | Outpatient (CLI) | payer OTHER ==
[2021-10-25] VITALS (9 sets, daily range): BP systolic 101–131; BP diastolic 42–69
[2021-10-25 12:09] LABS: Basophils # (auto) 0 10 ^3/uL (0-0.2); Basophils % (auto) 0.8 % (0.0-2.0); Eosinophils # (auto) 0.2 10 ^3/uL (0-0.8); Eosinophils % (auto) 4.6 % (0.0-7.0); Hematocrit 34.3 % (41.0-53.0); Hemoglobin 11.7 g/dL (13.5-17.5); Lymphocytes # (auto) 1.3 10 ^3/uL (0.4-5.4); Mean Corpuscular Hemoglobin 33.6 pg (28.0-32.0); Mean Corpuscular Volume 98.8 fL (80.0-100.0); Monocytes # (auto) 0.5 10 ^3/uL (0-1.3); Monocytes % (auto) 14.3 % (0.0-12.0); Neutrophils # (auto) 1.6 10 ^3/uL (1.6-8.6); Neutrophils % (auto) 44.3 % (37.0-80.0); Nucleated Red Blood Cells % 0.1 %; Red Blood Cells 3.47 10^6/uL (4.5-5.90); Red Cell Distribution Width 15.3 % (11.8-14.3); White Blood Cell 3.6 10^3/uL (4.4-10.8)
[2021-10-25 12:17] LABS: Magnesium 2.4 mg/dL (1.6-2.6)
== END | disposition home or self-care (01) ==
LOC: CHF HDHVI 08:13
PROVIDERS: ATTEND Internal Medicine Cardiovascular Disease
DX: I13.2 Hypertensive heart and chronic kidney disease with heart failure and with stage 5 chronic kidney disease, or end stage renal disease (principal); E11.22 Type 2 diabetes mellitus with diabetic chronic kidney disease; I50.42 Chronic combined systolic (congestive) and diastolic (congestive) heart failure; N18.6 End stage renal disease; I25.10 Atherosclerotic heart disease of native coronary artery without angina pectoris; I25.5 Ischemic cardiomyopathy; I25.2 Old myocardial infarction; I48.11 Longstanding persistent atrial fibrillation; J44.9 Chronic obstructive pulmonary disease, unspecified; K21.9 Gastro-esophageal reflux disease without esophagitis; E11.42 Type 2 diabetes mellitus with diabetic polyneuropathy; E11.51 Type 2 diabetes mellitus with diabetic peripheral angiopathy without gangrene; E11.319 Type 2 diabetes mellitus with unspecified diabetic retinopathy without macular edema; E78.5 Hyperlipidemia, unspecified; E78.00 Pure hypercholesterolemia, unspecified; E03.9 Hypothyroidism, unspecified; M17.12 Unilateral primary osteoarthritis, left knee; G89.29 Other chronic pain; F41.9 Anxiety disorder, unspecified; F31.9 Bipolar disorder, unspecified; Z79.4 Long term (current) use of insulin; Z79.82 Long term (current) use of aspirin; Z79.01 Long term (current) use of anticoagulants; Z79.899 Other long term (current) drug therapy; Z87.891 Personal history of nicotine dependence; Z85.46 Personal history of malignant neoplasm of prostate; Z85.038 Personal history of other malignant neoplasm of large intestine; Z95.5 Presence of coronary angioplasty implant and graft; Z95.810 Presence of automatic (implantable) cardiac defibrillator; Z86.73 Personal history of transient ischemic attack (TIA), and cerebral infarction without residual deficits
CPT/HCPCS: 36415; 82565; 83735; 83880; 84132; 84520; 85025; 96365; 96366; G0463; J1250; J1642

== ENCOUNTER → 2021-10-27 | Outpatient (CLI) | payer OTHER ==
[2021-10-27] VITALS (9 sets, daily range): BP systolic 98–124; BP diastolic 48–67
== END | disposition home or self-care (01) ==
LOC: CHF HDHVI 07:51
PROVIDERS: ATTEND Internal Medicine Cardiovascular Disease
DX: I13.2 Hypertensive heart and chronic kidney disease with heart failure and with stage 5 chronic kidney disease, or end stage renal disease (principal); E11.22 Type 2 diabetes mellitus with diabetic chronic kidney disease; I50.42 Chronic combined systolic (congestive) and diastolic (congestive) heart failure; N18.6 End stage renal disease; I25.5 Ischemic cardiomyopathy; I25.10 Atherosclerotic heart disease of native coronary artery without angina pectoris; I25.2 Old myocardial infarction; I48.11 Longstanding persistent atrial fibrillation; J44.9 Chronic obstructive pulmonary disease, unspecified; K21.9 Gastro-esophageal reflux disease without esophagitis; E11.319 Type 2 diabetes mellitus with unspecified diabetic retinopathy without macular edema; E11.51 Type 2 diabetes mellitus with diabetic peripheral angiopathy without gangrene; E11.42 Type 2 diabetes mellitus with diabetic polyneuropathy; E78.5 Hyperlipidemia, unspecified; E78.00 Pure hypercholesterolemia, unspecified; E03.9 Hypothyroidism, unspecified; M17.12 Unilateral primary osteoarthritis, left knee; G89.29 Other chronic pain; F41.9 Anxiety disorder, unspecified; F31.9 Bipolar disorder, unspecified; Z79.4 Long term (current) use of insulin; Z79.82 Long term (current) use of aspirin; Z79.01 Long term (current) use of anticoagulants; Z79.899 Other long term (current) drug therapy; Z87.891 Personal history of nicotine dependence; Z95.5 Presence of coronary angioplasty implant and graft; Z95.810 Presence of automatic (implantable) cardiac defibrillator; Z85.46 Personal history of malignant neoplasm of prostate; Z85.038 Personal history of other malignant neoplasm of large intestine; Z86.73 Personal history of transient ischemic attack (TIA), and cerebral infarction without residual deficits
CPT/HCPCS: 96365; 96366; G0463; J1250; J1642

== ENCOUNTER → 2021-10-29 | Outpatient (CLI) | payer OTHER ==
[2021-10-29] VITALS (9 sets, daily range): BP systolic 100–117; BP diastolic 50–65
== END | disposition home or self-care (01) ==
LOC: CHF HDHVI 07:51
PROVIDERS: ATTEND Internal Medicine Cardiovascular Disease
DX: E11.22 Type 2 diabetes mellitus with diabetic chronic kidney disease (principal); I13.2 Hypertensive heart and chronic kidney disease with heart failure and with stage 5 chronic kidney disease, or end stage renal disease; I50.42 Chronic combined systolic (congestive) and diastolic (congestive) heart failure; N18.6 End stage renal disease; F41.9 Anxiety disorder, unspecified; I25.10 Atherosclerotic heart disease of native coronary artery without angina pectoris; F31.9 Bipolar disorder, unspecified; J44.9 Chronic obstructive pulmonary disease, unspecified; K21.9 Gastro-esophageal reflux disease without esophagitis; E78.5 Hyperlipidemia, unspecified; R53.83 Other fatigue; I48.91 Unspecified atrial fibrillation; E03.9 Hypothyroidism, unspecified; I25.2 Old myocardial infarction; G89.29 Other chronic pain; E11.42 Type 2 diabetes mellitus with diabetic polyneuropathy; E78.00 Pure hypercholesterolemia, unspecified; E11.51 Type 2 diabetes mellitus with diabetic peripheral angiopathy without gangrene; Z99.2 Dependence on renal dialysis; Z95.0 Presence of cardiac pacemaker; Z95.1 Presence of aortocoronary bypass graft; Z79.01 Long term (current) use of anticoagulants; Z79.82 Long term (current) use of aspirin; Z79.4 Long term (current) use of insulin; Z79.899 Other long term (current) drug therapy
CPT/HCPCS: 96365; 96366; G0463; J1250; J1642

== ENCOUNTER → 2021-11-01 | Outpatient (CLI) | payer OTHER ==
[2021-11-01] VITALS (9 sets, daily range): BP systolic 96–116; BP diastolic 47–67
[2021-11-01 10:45] LABS: Basophils # (auto) 0.1 10 ^3/uL (0-0.2); Eosinophils # (auto) 0.2 10 ^3/uL (0-0.8); Eosinophils % (auto) 7.2 % (0.0-7.0); Hematocrit 36.4 % (41.0-53.0); Hemoglobin 12.4 g/dL (13.5-17.5); Lymphocytes # (auto) 1.1 10 ^3/uL (0.4-5.4); Lymphocytes % (auto) 37.2 % (10.0-50.0); Mean Corpuscular Hemoglobin 33.6 pg (28.0-32.0); Mean Corpuscular Hgb Conc. 34.1 g/dL (32.0-36.0); Mean Corpuscular Volume 98.5 fL (80.0-100.0); Monocytes # (auto) 0.4 10 ^3/uL (0-1.3); Monocytes % (auto) 13.2 % (0.0-12.0); Neutrophils # (auto) 1.2 10 ^3/uL (1.6-8.6); Neutrophils % (auto) 40.4 % (37.0-80.0); Red Cell Distribution Width 14.9 % (11.8-14.3)
[2021-11-01 11:12] LABS: Potassium 4.5 mmol/L (3.5-5.1)
[2021-11-01 11:18] LABS: BUN/Creatinine Ratio 13.3; Calcium 8.7 mg/dL (8.5-10.1); Magnesium 2.4 mg/dL (1.6-2.6)
== END | disposition home or self-care (01) ==
LOC: CHF HDHVI 07:55
PROVIDERS: ATTEND Internal Medicine Cardiovascular Disease
DX: I13.2 Hypertensive heart and chronic kidney disease with heart failure and with stage 5 chronic kidney disease, or end stage renal disease (principal); E11.22 Type 2 diabetes mellitus with diabetic chronic kidney disease; I50.42 Chronic combined systolic (congestive) and diastolic (congestive) heart failure; N18.6 End stage renal disease; I25.5 Ischemic cardiomyopathy; I25.10 Atherosclerotic heart disease of native coronary artery without angina pectoris; I25.2 Old myocardial infarction; J44.9 Chronic obstructive pulmonary disease, unspecified; K21.9 Gastro-esophageal reflux disease without esophagitis; E11.51 Type 2 diabetes mellitus with diabetic peripheral angiopathy without gangrene; E11.42 Type 2 diabetes mellitus with diabetic polyneuropathy; E11.319 Type 2 diabetes mellitus with unspecified diabetic retinopathy without macular edema; E78.5 Hyperlipidemia, unspecified; E78.00 Pure hypercholesterolemia, unspecified; E03.9 Hypothyroidism, unspecified; M17.12 Unilateral primary osteoarthritis, left knee; G89.29 Other chronic pain; F41.9 Anxiety disorder, unspecified; F31.9 Bipolar disorder, unspecified; Z79.4 Long term (current) use of insulin; Z79.01 Long term (current) use of anticoagulants; Z79.82 Long term (current) use of aspirin; Z79.899 Other long term (current) drug therapy; Z87.891 Personal history of nicotine dependence; Z85.46 Personal history of malignant neoplasm of prostate; Z85.038 Personal history of other malignant neoplasm of large intestine; Z95.5 Presence of coronary angioplasty implant and graft; Z95.810 Presence of automatic (implantable) cardiac defibrillator; Z86.73 Personal history of transient ischemic attack (TIA), and cerebral infarction without residual deficits
CPT/HCPCS: 36415; 80048; 83735; 83880; 85025; 96365; 96366; G0463; J1250; J1642

== ENCOUNTER → 2021-11-03 | Outpatient (CLI) | payer OTHER ==
[2021-11-03] VITALS (9 sets, daily range): BP systolic 97–120; BP diastolic 46–69
== END | disposition home or self-care (01) ==
LOC: CHF HDHVI 07:45
PROVIDERS: ATTEND Internal Medicine Cardiovascular Disease
DX: I13.2 Hypertensive heart and chronic kidney disease with heart failure and with stage 5 chronic kidney disease, or end stage renal disease (principal); E11.22 Type 2 diabetes mellitus with diabetic chronic kidney disease; I50.42 Chronic combined systolic (congestive) and diastolic (congestive) heart failure; N18.6 End stage renal disease; I25.10 Atherosclerotic heart disease of native coronary artery without angina pectoris; I25.5 Ischemic cardiomyopathy; I25.2 Old myocardial infarction; J44.9 Chronic obstructive pulmonary disease, unspecified; K21.9 Gastro-esophageal reflux disease without esophagitis; E11.51 Type 2 diabetes mellitus with diabetic peripheral angiopathy without gangrene; E11.319 Type 2 diabetes mellitus with unspecified diabetic retinopathy without macular edema; E11.42 Type 2 diabetes mellitus with diabetic polyneuropathy; E78.5 Hyperlipidemia, unspecified; E78.00 Pure hypercholesterolemia, unspecified; E03.9 Hypothyroidism, unspecified; M17.12 Unilateral primary osteoarthritis, left knee; G89.29 Other chronic pain; F41.9 Anxiety disorder, unspecified; F31.9 Bipolar disorder, unspecified; Z79.4 Long term (current) use of insulin; Z79.01 Long term (current) use of anticoagulants; Z79.82 Long term (current) use of aspirin; Z79.899 Other long term (current) drug therapy; Z87.891 Personal history of nicotine dependence; Z95.810 Presence of automatic (implantable) cardiac defibrillator; Z95.5 Presence of coronary angioplasty implant and graft; Z86.73 Personal history of transient ischemic attack (TIA), and cerebral infarction without residual deficits; Z85.46 Personal history of malignant neoplasm of prostate; Z85.038 Personal history of other malignant neoplasm of large intestine
CPT/HCPCS: 96365; 96366; G0463; J1250; J1642

== ENCOUNTER → 2021-11-05 | Outpatient (CLI) | payer OTHER ==
[2021-11-05] VITALS (9 sets, daily range): BP systolic 95–123; BP diastolic 48–69
== END | disposition home or self-care (01) ==
LOC: CHF HDHVI 07:49
PROVIDERS: ATTEND Internal Medicine Cardiovascular Disease
DX: I13.2 Hypertensive heart and chronic kidney disease with heart failure and with stage 5 chronic kidney disease, or end stage renal disease (principal); E11.22 Type 2 diabetes mellitus with diabetic chronic kidney disease; I50.42 Chronic combined systolic (congestive) and diastolic (congestive) heart failure; N18.6 End stage renal disease; I25.5 Ischemic cardiomyopathy; I25.10 Atherosclerotic heart disease of native coronary artery without angina pectoris; I25.2 Old myocardial infarction; I48.11 Longstanding persistent atrial fibrillation; J44.9 Chronic obstructive pulmonary disease, unspecified; K21.9 Gastro-esophageal reflux disease without esophagitis; E11.51 Type 2 diabetes mellitus with diabetic peripheral angiopathy without gangrene; E11.42 Type 2 diabetes mellitus with diabetic polyneuropathy; E11.319 Type 2 diabetes mellitus with unspecified diabetic retinopathy without macular edema; E78.00 Pure hypercholesterolemia, unspecified; E78.5 Hyperlipidemia, unspecified; E03.9 Hypothyroidism, unspecified; M17.12 Unilateral primary osteoarthritis, left knee; G89.29 Other chronic pain; F41.9 Anxiety disorder, unspecified; F31.9 Bipolar disorder, unspecified; Z79.4 Long term (current) use of insulin; Z79.82 Long term (current) use of aspirin; Z79.01 Long term (current) use of anticoagulants; Z79.899 Other long term (current) drug therapy; Z87.891 Personal history of nicotine dependence; Z85.46 Personal history of malignant neoplasm of prostate; Z85.038 Personal history of other malignant neoplasm of large intestine; Z95.5 Presence of coronary angioplasty implant and graft; Z95.810 Presence of automatic (implantable) cardiac defibrillator; Z86.73 Personal history of transient ischemic attack (TIA), and cerebral infarction without residual deficits
CPT/HCPCS: 96365; 96366; G0463; J1250; J1642

== ENCOUNTER → 2021-11-08 | Outpatient (CLI) | payer OTHER ==
[2021-11-08] VITALS (9 sets, daily range): BP systolic 99–124; BP diastolic 47–88
[~2021-11-08] VITALS: Ht 30.5 cm; Wt 76.8 kg
[2021-11-08 11:17] LABS: Basophils # (auto) 0 10 ^3/uL (0-0.2); Basophils % (auto) 0.8 % (0.0-2.0); Eosinophils # (auto) 0.2 10 ^3/uL (0-0.8); Eosinophils % (auto) 5.4 % (0.0-7.0); Hemoglobin 11.9 g/dL (13.5-17.5); Lymphocytes # (auto) 1.3 10 ^3/uL (0.4-5.4); Lymphocytes % (auto) 35.4 % (10.0-50.0); Mean Corpuscular Hemoglobin 32.7 pg (28.0-32.0); Mean Corpuscular Hgb Conc. 32.9 g/dL (32.0-36.0); Mean Corpuscular Volume 99.4 fL (80.0-100.0); Monocytes # (auto) 0.5 10 ^3/uL (0-1.3); Neutrophils # (auto) 1.6 10 ^3/uL (1.6-8.6); Neutrophils % (auto) 44.4 % (37.0-80.0); Red Blood Cells 3.62 10^6/uL (4.5-5.90); Red Cell Distribution Width 14.5 % (11.8-14.3); White Blood Cell 3.7 10^3/uL (4.4-10.8)
[2021-11-08 11:19] LABS: Albumin 3.7 g/dL (3.4-5.0); BUN/Creatinine Ratio 14.7; Calcium 8.7 mg/dL (8.5-10.1); Magnesium 3.4 mg/dL (1.6-2.6)
[2021-11-08 11:22] LABS: Bilirubin, Total 0.5 mg/dL (0.2-1.0); Total Protein 7.1 g/dL (6.4-8.2)
== END | disposition home or self-care (01) ==
LOC: CHF HDHVI 07:51
PROVIDERS: ATTEND Internal Medicine Cardiovascular Disease
DX: I13.2 Hypertensive heart and chronic kidney disease with heart failure and with stage 5 chronic kidney disease, or end stage renal disease (principal); E11.22 Type 2 diabetes mellitus with diabetic chronic kidney disease; I50.42 Chronic combined systolic (congestive) and diastolic (congestive) heart failure; N18.6 End stage renal disease; I25.5 Ischemic cardiomyopathy; I25.10 Atherosclerotic heart disease of native coronary artery without angina pectoris; I25.2 Old myocardial infarction; I48.11 Longstanding persistent atrial fibrillation; J44.9 Chronic obstructive pulmonary disease, unspecified; K21.9 Gastro-esophageal reflux disease without esophagitis; E11.319 Type 2 diabetes mellitus with unspecified diabetic retinopathy without macular edema; E11.42 Type 2 diabetes mellitus with diabetic polyneuropathy; E11.51 Type 2 diabetes mellitus with diabetic peripheral angiopathy without gangrene; E78.5 Hyperlipidemia, unspecified; E78.00 Pure hypercholesterolemia, unspecified; E03.9 Hypothyroidism, unspecified; M17.12 Unilateral primary osteoarthritis, left knee; G89.29 Other chronic pain; F41.9 Anxiety disorder, unspecified; F31.9 Bipolar disorder, unspecified; Z79.4 Long term (current) use of insulin; Z79.82 Long term (current) use of aspirin; Z79.01 Long term (current) use of anticoagulants; Z79.899 Other long term (current) drug therapy; Z87.891 Personal history of nicotine dependence; Z85.46 Personal history of malignant neoplasm of prostate; Z85.038 Personal history of other malignant neoplasm of large intestine; Z95.810 Presence of automatic (implantable) cardiac defibrillator; Z95.5 Presence of coronary angioplasty implant and graft; Z86.73 Personal history of transient ischemic attack (TIA), and cerebral infarction without residual deficits
CPT/HCPCS: 36415; 80053; 80162; 83735; 83880; 85025; 96365; 96366; G0463; J1250; J1642

== ENCOUNTER → 2021-11-10 | Outpatient (CLI) | payer OTHER ==
[2021-11-10] VITALS (9 sets, daily range): BP systolic 93–122; BP diastolic 47–65
[~2021-11-10] MED LIST changes: +BACITRACIN TOP OINT 1 UD PKG TOP ONE; +CYANOCOBALAMIN (B-12) 1000 MCG/1 ML VIAL IM ONE; +CYANOCOBALAMIN (B-12) 1000 MCG/1 ML VIAL ONE
== END | disposition home or self-care (01) ==
LOC: CHF HDHVI 07:51
PROVIDERS: ATTEND Internal Medicine Cardiovascular Disease
DX: I13.2 Hypertensive heart and chronic kidney disease with heart failure and with stage 5 chronic kidney disease, or end stage renal disease (principal); E11.22 Type 2 diabetes mellitus with diabetic chronic kidney disease; I50.42 Chronic combined systolic (congestive) and diastolic (congestive) heart failure; N18.6 End stage renal disease; I25.5 Ischemic cardiomyopathy; I25.10 Atherosclerotic heart disease of native coronary artery without angina pectoris; I25.2 Old myocardial infarction; J44.9 Chronic obstructive pulmonary disease, unspecified; K21.9 Gastro-esophageal reflux disease without esophagitis; E11.42 Type 2 diabetes mellitus with diabetic polyneuropathy; E11.51 Type 2 diabetes mellitus with diabetic peripheral angiopathy without gangrene; E11.319 Type 2 diabetes mellitus with unspecified diabetic retinopathy without macular edema; E78.5 Hyperlipidemia, unspecified; E78.00 Pure hypercholesterolemia, unspecified; E03.9 Hypothyroidism, unspecified; M17.12 Unilateral primary osteoarthritis, left knee; G89.29 Other chronic pain; F41.9 Anxiety disorder, unspecified; F31.9 Bipolar disorder, unspecified; Z79.4 Long term (current) use of insulin; Z79.01 Long term (current) use of anticoagulants; Z79.82 Long term (current) use of aspirin; Z79.899 Other long term (current) drug therapy; Z87.891 Personal history of nicotine dependence; Z85.46 Personal history of malignant neoplasm of prostate; Z85.038 Personal history of other malignant neoplasm of large intestine; Z95.810 Presence of automatic (implantable) cardiac defibrillator; Z95.5 Presence of coronary angioplasty implant and graft; Z86.73 Personal history of transient ischemic attack (TIA), and cerebral infarction without residual deficits
CPT/HCPCS: 96365; 96366; 96372; G0463; J1250; J1642; J3420

== ENCOUNTER → 2021-11-12 | Outpatient (CLI) | payer OTHER ==
[2021-11-12] VITALS (9 sets, daily range): BP systolic 108–120; BP diastolic 53–70
[~2021-11-12] VITALS: Ht 165.1 cm; Wt 78.5 kg
[~2021-11-12] MED LIST changes: -BACITRACIN TOP OINT 1 UD PKG TOP ONE; -CYANOCOBALAMIN (B-12) 1000 MCG/1 ML VIAL IM ONE; -CYANOCOBALAMIN (B-12) 1000 MCG/1 ML VIAL ONE
== END | disposition home or self-care (01) ==
LOC: CHF HDHVI 07:57
PROVIDERS: ATTEND Internal Medicine Cardiovascular Disease
DX: I13.2 Hypertensive heart and chronic kidney disease with heart failure and with stage 5 chronic kidney disease, or end stage renal disease (principal); E11.22 Type 2 diabetes mellitus with diabetic chronic kidney disease; N18.6 End stage renal disease; I50.42 Chronic combined systolic (congestive) and diastolic (congestive) heart failure; I25.10 Atherosclerotic heart disease of native coronary artery without angina pectoris; F41.9 Anxiety disorder, unspecified; F31.9 Bipolar disorder, unspecified; J44.9 Chronic obstructive pulmonary disease, unspecified; K21.9 Gastro-esophageal reflux disease without esophagitis; E78.5 Hyperlipidemia, unspecified; E03.9 Hypothyroidism, unspecified; I25.2 Old myocardial infarction; E78.00 Pure hypercholesterolemia, unspecified; E11.42 Type 2 diabetes mellitus with diabetic polyneuropathy; E11.51 Type 2 diabetes mellitus with diabetic peripheral angiopathy without gangrene; I48.11 Longstanding persistent atrial fibrillation; Z99.2 Dependence on renal dialysis; Z90.49 Acquired absence of other specified parts of digestive tract; Z79.4 Long term (current) use of insulin; Z87.891 Personal history of nicotine dependence; Z85.038 Personal history of other malignant neoplasm of large intestine; Z85.46 Personal history of malignant neoplasm of prostate; Z79.82 Long term (current) use of aspirin; Z79.01 Long term (current) use of anticoagulants
CPT/HCPCS: 96365; 96366; G0463; J1250; J1642

== ENCOUNTER → 2021-11-15 | Outpatient (CLI) | payer OTHER ==
[2021-11-15] VITALS (10 sets, daily range): BP systolic 102–127; BP diastolic 50–70
[~2021-11-15] MED LIST changes: +KETOROLAC TROMETH 60MG/2ML VIAL IM ONE; +KETOROLAC TROMETH 60MG/2ML VIAL ONE
[2021-11-15 11:16] LABS: Basophils # (auto) 0.1 10 ^3/uL (0-0.2); Basophils % (auto) 1.5 % (0.0-2.0); Eosinophils # (auto) 0.2 10 ^3/uL (0-0.8); Eosinophils % (auto) 5.9 % (0.0-7.0); Hematocrit 35.3 % (41.0-53.0); Hemoglobin 11.8 g/dL (13.5-17.5); Lymphocytes # (auto) 1.2 10 ^3/uL (0.4-5.4); Lymphocytes % (auto) 34.9 % (10.0-50.0); Mean Corpuscular Hgb Conc. 33.3 g/dL (32.0-36.0); Mean Corpuscular Volume 99.1 fL (80.0-100.0); Monocytes # (auto) 0.5 10 ^3/uL (0-1.3); Monocytes % (auto) 14.3 % (0.0-12.0); Neutrophils # (auto) 1.5 10 ^3/uL (1.6-8.6); Neutrophils % (auto) 43.4 % (37.0-80.0); Red Blood Cells 3.56 10^6/uL (4.5-5.90); Red Cell Distribution Width 14.2 % (11.8-14.3); White Blood Cell 3.5 10^3/uL (4.4-10.8)
[2021-11-15 11:34] LABS: Potassium 4.1 mmol/L (3.5-5.1)
== END | disposition home or self-care (01) ==
LOC: CHF HDHVI 07:51
PROVIDERS: ATTEND Internal Medicine Cardiovascular Disease
DX: I13.2 Hypertensive heart and chronic kidney disease with heart failure and with stage 5 chronic kidney disease, or end stage renal disease (principal); E11.22 Type 2 diabetes mellitus with diabetic chronic kidney disease; N18.6 End stage renal disease; I50.42 Chronic combined systolic (congestive) and diastolic (congestive) heart failure; I25.10 Atherosclerotic heart disease of native coronary artery without angina pectoris; F41.9 Anxiety disorder, unspecified; F31.9 Bipolar disorder, unspecified; K21.9 Gastro-esophageal reflux disease without esophagitis; J44.9 Chronic obstructive pulmonary disease, unspecified; E78.5 Hyperlipidemia, unspecified; E03.9 Hypothyroidism, unspecified; I25.2 Old myocardial infarction; I48.11 Longstanding persistent atrial fibrillation; E78.00 Pure hypercholesterolemia, unspecified; E11.42 Type 2 diabetes mellitus with diabetic polyneuropathy; E11.51 Type 2 diabetes mellitus with diabetic peripheral angiopathy without gangrene; M19.90 Unspecified osteoarthritis, unspecified site; Z99.2 Dependence on renal dialysis; Z90.49 Acquired absence of other specified parts of digestive tract; Z79.4 Long term (current) use of insulin; Z87.891 Personal history of nicotine dependence; Z85.038 Personal history of other malignant neoplasm of large intestine; Z85.46 Personal history of malignant neoplasm of prostate; Z79.01 Long term (current) use of anticoagulants; Z79.82 Long term (current) use of aspirin; Z79.899 Other long term (current) drug therapy
CPT/HCPCS: 36415; 82565; 83880; 84132; 84520; 85025; 96365; 96366; 96372; G0463; J1250; J1642; J1885

== ENCOUNTER → 2021-11-17 | Outpatient (CLI) | payer OTHER ==
[2021-11-17] VITALS (9 sets, daily range): BP systolic 92–128; BP diastolic 48–79
[~2021-11-17] MED LIST changes: -KETOROLAC TROMETH 60MG/2ML VIAL IM ONE; -KETOROLAC TROMETH 60MG/2ML VIAL ONE
== END | disposition home or self-care (01) ==
LOC: CHF HDHVI 07:49
PROVIDERS: ATTEND Internal Medicine Cardiovascular Disease
DX: I13.2 Hypertensive heart and chronic kidney disease with heart failure and with stage 5 chronic kidney disease, or end stage renal disease (principal); E11.22 Type 2 diabetes mellitus with diabetic chronic kidney disease; I50.42 Chronic combined systolic (congestive) and diastolic (congestive) heart failure; N18.6 End stage renal disease; I25.5 Ischemic cardiomyopathy; I25.10 Atherosclerotic heart disease of native coronary artery without angina pectoris; I25.2 Old myocardial infarction; I48.11 Longstanding persistent atrial fibrillation; J44.9 Chronic obstructive pulmonary disease, unspecified; K21.9 Gastro-esophageal reflux disease without esophagitis; E11.51 Type 2 diabetes mellitus with diabetic peripheral angiopathy without gangrene; E11.42 Type 2 diabetes mellitus with diabetic polyneuropathy; E11.319 Type 2 diabetes mellitus with unspecified diabetic retinopathy without macular edema; E78.5 Hyperlipidemia, unspecified; E03.9 Hypothyroidism, unspecified; E78.00 Pure hypercholesterolemia, unspecified; M17.12 Unilateral primary osteoarthritis, left knee; G89.29 Other chronic pain; F41.9 Anxiety disorder, unspecified; F31.9 Bipolar disorder, unspecified; Z79.4 Long term (current) use of insulin; Z79.82 Long term (current) use of aspirin; Z79.01 Long term (current) use of anticoagulants; Z79.899 Other long term (current) drug therapy; Z87.891 Personal history of nicotine dependence; Z85.46 Personal history of malignant neoplasm of prostate; Z85.038 Personal history of other malignant neoplasm of large intestine; Z95.5 Presence of coronary angioplasty implant and graft; Z95.810 Presence of automatic (implantable) cardiac defibrillator; Z86.73 Personal history of transient ischemic attack (TIA), and cerebral infarction without residual deficits
CPT/HCPCS: 96365; 96366; G0463; J1250; J1642

== ENCOUNTER → 2021-11-22 | Outpatient (CLI) | payer OTHER ==
[2021-11-22] VITALS (9 sets, daily range): BP systolic 101–130; BP diastolic 52–70
[2021-11-22 09:08] LABS: BUN/Creatinine Ratio 15.7; Calcium 8.9 mg/dL (8.5-10.1); Magnesium 3.5 mg/dL (1.6-2.6); Potassium 4.1 mmol/L (3.5-5.1)
[2021-11-22 09:16] LABS: Basophils # (auto) 0 10 ^3/uL (0-0.2); Basophils % (auto) 1.1 % (0.0-2.0); Eosinophils # (auto) 0.3 10 ^3/uL (0-0.8); Eosinophils % (auto) 6.9 % (0.0-7.0); Hematocrit 36.9 % (41.0-53.0); Hemoglobin 12.3 g/dL (13.5-17.5); Lymphocytes # (auto) 1.4 10 ^3/uL (0.4-5.4); Lymphocytes % (auto) 36.2 % (10.0-50.0); Mean Corpuscular Hemoglobin 32.8 pg (28.0-32.0); Mean Corpuscular Hgb Conc. 33.3 g/dL (32.0-36.0); Mean Corpuscular Volume 98.5 fL (80.0-100.0); Monocytes # (auto) 0.6 10 ^3/uL (0-1.3); Monocytes % (auto) 14.5 % (0.0-12.0); Neutrophils # (auto) 1.6 10 ^3/uL (1.6-8.6); Neutrophils % (auto) 41.3 % (37.0-80.0); Nucleated Red Blood Cells % 0.1 %; Red Blood Cells 3.74 10^6/uL (4.5-5.90); Red Cell Distribution Width 13.9 % (11.8-14.3); White Blood Cell 3.9 10^3/uL (4.4-10.8)
== END | disposition home or self-care (01) ==
LOC: CHF HDHVI 07:51
PROVIDERS: ATTEND Internal Medicine Cardiovascular Disease
DX: I13.2 Hypertensive heart and chronic kidney disease with heart failure and with stage 5 chronic kidney disease, or end stage renal disease (principal); E11.22 Type 2 diabetes mellitus with diabetic chronic kidney disease; I50.42 Chronic combined systolic (congestive) and diastolic (congestive) heart failure; N18.6 End stage renal disease; I25.10 Atherosclerotic heart disease of native coronary artery without angina pectoris; I25.5 Ischemic cardiomyopathy; I25.2 Old myocardial infarction; I48.11 Longstanding persistent atrial fibrillation; J44.9 Chronic obstructive pulmonary disease, unspecified; K21.9 Gastro-esophageal reflux disease without esophagitis; E11.42 Type 2 diabetes mellitus with diabetic polyneuropathy; E11.51 Type 2 diabetes mellitus with diabetic peripheral angiopathy without gangrene; E11.319 Type 2 diabetes mellitus with unspecified diabetic retinopathy without macular edema; E78.5 Hyperlipidemia, unspecified; E78.00 Pure hypercholesterolemia, unspecified; E03.9 Hypothyroidism, unspecified; M17.12 Unilateral primary osteoarthritis, left knee; G89.29 Other chronic pain; F41.9 Anxiety disorder, unspecified; F31.9 Bipolar disorder, unspecified; Z79.4 Long term (current) use of insulin; Z79.82 Long term (current) use of aspirin; Z79.01 Long term (current) use of anticoagulants; Z79.899 Other long term (current) drug therapy; Z87.891 Personal history of nicotine dependence; Z85.46 Personal history of malignant neoplasm of prostate; Z85.038 Personal history of other malignant neoplasm of large intestine; Z95.5 Presence of coronary angioplasty implant and graft; Z95.810 Presence of automatic (implantable) cardiac defibrillator; Z86.73 Personal history of transient ischemic attack (TIA), and cerebral infarction without residual deficits
CPT/HCPCS: 36415; 80048; 83735; 83880; 85025; 96365; 96366; G0463; J1250; J1642

== ENCOUNTER → 2021-11-29 | Outpatient (CLI) | payer OTHER ==
[2021-11-29] VITALS (9 sets, daily range): BP systolic 109–133; BP diastolic 52–89
[2021-11-29 11:32] LABS: Basophils # (auto) 0 10 ^3/uL (0-0.2); Basophils % (auto) 1.1 % (0.0-2.0); Eosinophils # (auto) 0.2 10 ^3/uL (0-0.8); Hematocrit 37.4 % (41.0-53.0); Hemoglobin 12.6 g/dL (13.5-17.5); Lymphocytes # (auto) 1.4 10 ^3/uL (0.4-5.4); Lymphocytes % (auto) 41.5 % (10.0-50.0); Mean Corpuscular Hemoglobin 32.8 pg (28.0-32.0); Mean Corpuscular Hgb Conc. 33.9 g/dL (32.0-36.0); Mean Corpuscular Volume 96.9 fL (80.0-100.0); Monocytes # (auto) 0.5 10 ^3/uL (0-1.3); Monocytes % (auto) 15.5 % (0.0-12.0); Neutrophils # (auto) 1.3 10 ^3/uL (1.6-8.6); Neutrophils % (auto) 36.9 % (37.0-80.0); Nucleated Red Blood Cells % 0.1 %; Red Blood Cells 3.85 10^6/uL (4.5-5.90); Red Cell Distribution Width 13.6 % (11.8-14.3); White Blood Cell 3.5 10^3/uL (4.4-10.8)
[2021-11-29 11:38] LABS: BUN/Creatinine Ratio 20.6; Calcium 9.1 mg/dL (8.5-10.1); Magnesium 3.2 mg/dL (1.6-2.6); Potassium 4.3 mmol/L (3.5-5.1)
== END | disposition home or self-care (01) ==
LOC: CHF HDHVI 07:53
PROVIDERS: ATTEND Internal Medicine Cardiovascular Disease
DX: I13.2 Hypertensive heart and chronic kidney disease with heart failure and with stage 5 chronic kidney disease, or end stage renal disease (principal); E11.22 Type 2 diabetes mellitus with diabetic chronic kidney disease; I50.42 Chronic combined systolic (congestive) and diastolic (congestive) heart failure; N18.6 End stage renal disease; I25.10 Atherosclerotic heart disease of native coronary artery without angina pectoris; I25.5 Ischemic cardiomyopathy; I25.2 Old myocardial infarction; I48.11 Longstanding persistent atrial fibrillation; J44.9 Chronic obstructive pulmonary disease, unspecified; K21.9 Gastro-esophageal reflux disease without esophagitis; E11.51 Type 2 diabetes mellitus with diabetic peripheral angiopathy without gangrene; E11.42 Type 2 diabetes mellitus with diabetic polyneuropathy; E11.319 Type 2 diabetes mellitus with unspecified diabetic retinopathy without macular edema; E78.00 Pure hypercholesterolemia, unspecified; E78.5 Hyperlipidemia, unspecified; E03.9 Hypothyroidism, unspecified; G89.29 Other chronic pain; M17.12 Unilateral primary osteoarthritis, left knee; F41.9 Anxiety disorder, unspecified; F31.9 Bipolar disorder, unspecified; Z79.4 Long term (current) use of insulin; Z79.82 Long term (current) use of aspirin; Z79.01 Long term (current) use of anticoagulants; Z79.899 Other long term (current) drug therapy; Z87.891 Personal history of nicotine dependence; Z85.46 Personal history of malignant neoplasm of prostate; Z85.038 Personal history of other malignant neoplasm of large intestine; Z95.5 Presence of coronary angioplasty implant and graft; Z95.810 Presence of automatic (implantable) cardiac defibrillator; Z86.73 Personal history of transient ischemic attack (TIA), and cerebral infarction without residual deficits
CPT/HCPCS: 36415; 80048; 83735; 83880; 85025; 96365; 96366; G0463; J1250; J1642

== ENCOUNTER → 2021-12-01 | Outpatient (CLI) | payer OTHER ==
[2021-12-01] VITALS (9 sets, daily range): BP systolic 101–128; BP diastolic 50–67
[~2021-12-01] MED LIST changes: +TESTOSTERONE CYPIONATE 200 MG/ML 1ML VIAL IM ONE
== END | disposition home or self-care (01) ==
LOC: CHF HDHVI 07:54
PROVIDERS: ATTEND Internal Medicine Cardiovascular Disease
DX: I13.2 Hypertensive heart and chronic kidney disease with heart failure and with stage 5 chronic kidney disease, or end stage renal disease (principal); E11.22 Type 2 diabetes mellitus with diabetic chronic kidney disease; I50.42 Chronic combined systolic (congestive) and diastolic (congestive) heart failure; N18.6 End stage renal disease; E29.1 Testicular hypofunction; I25.5 Ischemic cardiomyopathy; I25.10 Atherosclerotic heart disease of native coronary artery without angina pectoris; I25.2 Old myocardial infarction; I48.11 Longstanding persistent atrial fibrillation; J44.9 Chronic obstructive pulmonary disease, unspecified; K21.9 Gastro-esophageal reflux disease without esophagitis; E11.51 Type 2 diabetes mellitus with diabetic peripheral angiopathy without gangrene; E11.42 Type 2 diabetes mellitus with diabetic polyneuropathy; E11.319 Type 2 diabetes mellitus with unspecified diabetic retinopathy without macular edema; E03.9 Hypothyroidism, unspecified; M17.12 Unilateral primary osteoarthritis, left knee; G89.29 Other chronic pain; F41.9 Anxiety disorder, unspecified; F31.9 Bipolar disorder, unspecified; Z79.4 Long term (current) use of insulin; Z79.01 Long term (current) use of anticoagulants; Z79.82 Long term (current) use of aspirin; Z79.899 Other long term (current) drug therapy; Z87.891 Personal history of nicotine dependence; Z85.46 Personal history of malignant neoplasm of prostate; Z85.038 Personal history of other malignant neoplasm of large intestine; Z95.5 Presence of coronary angioplasty implant and graft; Z95.810 Presence of automatic (implantable) cardiac defibrillator; Z86.73 Personal history of transient ischemic attack (TIA), and cerebral infarction without residual deficits
CPT/HCPCS: 96365; 96366; 96372; G0463; J1071; J1250; J1642

== ENCOUNTER → 2021-12-10 | Outpatient (CLI) | payer OTHER ==
[~2021-12-10] VITALS: Ht 165.1 cm; Wt 79.8 kg
[2021-12-10] VITALS (9 sets, daily range): BP systolic 91–120; BP diastolic 42–62
[~2021-12-10] MED LIST changes: -TESTOSTERONE CYPIONATE 200 MG/ML 1ML VIAL IM ONE
== END | disposition home or self-care (01) ==
LOC: CHF HDHVI 07:53
PROVIDERS: ATTEND Internal Medicine Cardiovascular Disease
DX: I13.2 Hypertensive heart and chronic kidney disease with heart failure and with stage 5 chronic kidney disease, or end stage renal disease (principal); E11.22 Type 2 diabetes mellitus with diabetic chronic kidney disease; I50.42 Chronic combined systolic (congestive) and diastolic (congestive) heart failure; N18.6 End stage renal disease; I25.5 Ischemic cardiomyopathy; I25.10 Atherosclerotic heart disease of native coronary artery without angina pectoris; I25.2 Old myocardial infarction; I48.11 Longstanding persistent atrial fibrillation; J44.9 Chronic obstructive pulmonary disease, unspecified; K21.9 Gastro-esophageal reflux disease without esophagitis; E11.51 Type 2 diabetes mellitus with diabetic peripheral angiopathy without gangrene; E11.42 Type 2 diabetes mellitus with diabetic polyneuropathy; E11.319 Type 2 diabetes mellitus with unspecified diabetic retinopathy without macular edema; E78.00 Pure hypercholesterolemia, unspecified; E78.5 Hyperlipidemia, unspecified; E03.9 Hypothyroidism, unspecified; M17.12 Unilateral primary osteoarthritis, left knee; G89.29 Other chronic pain; F41.9 Anxiety disorder, unspecified; F31.9 Bipolar disorder, unspecified; Z79.01 Long term (current) use of anticoagulants; Z79.4 Long term (current) use of insulin; Z79.82 Long term (current) use of aspirin; Z79.899 Other long term (current) drug therapy; Z87.891 Personal history of nicotine dependence; Z85.46 Personal history of malignant neoplasm of prostate; Z85.038 Personal history of other malignant neoplasm of large intestine; Z95.5 Presence of coronary angioplasty implant and graft; Z95.810 Presence of automatic (implantable) cardiac defibrillator; Z86.73 Personal history of transient ischemic attack (TIA), and cerebral infarction without residual deficits
CPT/HCPCS: 96365; 96366; G0463; J1250; J1642

== ENCOUNTER → 2021-12-13 | Outpatient (CLI) | payer OTHER ==
[2021-12-13] VITALS (9 sets, daily range): BP systolic 98–115; BP diastolic 42–73
[2021-12-13 12:04] LABS: Potassium 4.3 mmol/L (3.5-5.1)
== END | disposition home or self-care (01) ==
LOC: CHF HDHVI 07:53
PROVIDERS: ATTEND Internal Medicine Cardiovascular Disease
DX: I13.2 Hypertensive heart and chronic kidney disease with heart failure and with stage 5 chronic kidney disease, or end stage renal disease (principal); E11.22 Type 2 diabetes mellitus with diabetic chronic kidney disease; I50.42 Chronic combined systolic (congestive) and diastolic (congestive) heart failure; N18.6 End stage renal disease; I25.5 Ischemic cardiomyopathy; I25.10 Atherosclerotic heart disease of native coronary artery without angina pectoris; I25.2 Old myocardial infarction; I48.11 Longstanding persistent atrial fibrillation; J44.9 Chronic obstructive pulmonary disease, unspecified; K21.9 Gastro-esophageal reflux disease without esophagitis; E11.51 Type 2 diabetes mellitus with diabetic peripheral angiopathy without gangrene; E11.42 Type 2 diabetes mellitus with diabetic polyneuropathy; E11.319 Type 2 diabetes mellitus with unspecified diabetic retinopathy without macular edema; E78.00 Pure hypercholesterolemia, unspecified; E78.5 Hyperlipidemia, unspecified; E03.9 Hypothyroidism, unspecified; M17.12 Unilateral primary osteoarthritis, left knee; G89.29 Other chronic pain; F41.9 Anxiety disorder, unspecified; F31.9 Bipolar disorder, unspecified; Z79.4 Long term (current) use of insulin; Z79.82 Long term (current) use of aspirin; Z79.01 Long term (current) use of anticoagulants; Z79.899 Other long term (current) drug therapy; Z87.891 Personal history of nicotine dependence; Z85.46 Personal history of malignant neoplasm of prostate; Z85.038 Personal history of other malignant neoplasm of large intestine; Z95.5 Presence of coronary angioplasty implant and graft; Z95.810 Presence of automatic (implantable) cardiac defibrillator; Z86.73 Personal history of transient ischemic attack (TIA), and cerebral infarction without residual deficits
CPT/HCPCS: 36415; 82565; 83880; 84132; 84520; 96365; 96366; G0463; J1250; J1642

== ENCOUNTER → 2021-12-17 | Outpatient (CLI) | payer OTHER ==
[2021-12-17] VITALS (9 sets, daily range): BP systolic 103–127; BP diastolic 55–87
== END | disposition home or self-care (01) ==
LOC: CHF HDHVI 07:53
PROVIDERS: ATTEND Internal Medicine Cardiovascular Disease
DX: I13.2 Hypertensive heart and chronic kidney disease with heart failure and with stage 5 chronic kidney disease, or end stage renal disease (principal); E11.22 Type 2 diabetes mellitus with diabetic chronic kidney disease; I50.42 Chronic combined systolic (congestive) and diastolic (congestive) heart failure; N18.6 End stage renal disease; I25.5 Ischemic cardiomyopathy; I25.10 Atherosclerotic heart disease of native coronary artery without angina pectoris; I25.2 Old myocardial infarction; I48.11 Longstanding persistent atrial fibrillation; J44.9 Chronic obstructive pulmonary disease, unspecified; K21.9 Gastro-esophageal reflux disease without esophagitis; E11.51 Type 2 diabetes mellitus with diabetic peripheral angiopathy without gangrene; E11.42 Type 2 diabetes mellitus with diabetic polyneuropathy; E11.319 Type 2 diabetes mellitus with unspecified diabetic retinopathy without macular edema; E78.00 Pure hypercholesterolemia, unspecified; E78.5 Hyperlipidemia, unspecified; E03.9 Hypothyroidism, unspecified; M17.12 Unilateral primary osteoarthritis, left knee; G89.29 Other chronic pain; F41.9 Anxiety disorder, unspecified; F32.9 Major depressive disorder, single episode, unspecified; Z79.4 Long term (current) use of insulin; Z79.01 Long term (current) use of anticoagulants; Z79.82 Long term (current) use of aspirin; Z79.899 Other long term (current) drug therapy; Z87.891 Personal history of nicotine dependence; Z85.46 Personal history of malignant neoplasm of prostate; Z85.038 Personal history of other malignant neoplasm of large intestine; Z95.5 Presence of coronary angioplasty implant and graft; Z95.810 Presence of automatic (implantable) cardiac defibrillator; Z86.73 Personal history of transient ischemic attack (TIA), and cerebral infarction without residual deficits
CPT/HCPCS: 96365; 96366; G0463; J1250; J1642

== ENCOUNTER → 2021-12-20 | Outpatient (CLI) | payer OTHER ==
[2021-12-20] VITALS (8 sets, daily range): BP systolic 96–117; BP diastolic 50–73
[~2021-12-20] MED LIST changes: +FUROSEMIDE 100 MG/10ML VIAL IV ONE; +FUROSEMIDE 40 MG/4 ML VIAL ONE
[2021-12-20 09:38] LABS: Calcium 8.9 mg/dL (8.5-10.1); Magnesium 3.2 mg/dL (1.6-2.6); Potassium 4.3 mmol/L (3.5-5.1)
[2021-12-20 09:47] LABS: Basophils # (auto) 0.1 10 ^3/uL (0-0.2); Basophils % (auto) 1.3 % (0.0-2.0); Eosinophils # (auto) 0.2 10 ^3/uL (0-0.8); Eosinophils % (auto) 3.2 % (0.0-7.0); Hematocrit 38.6 % (41.0-53.0); Hemoglobin 12.7 g/dL (13.5-17.5); Lymphocytes # (auto) 1.4 10 ^3/uL (0.4-5.4); Lymphocytes % (auto) 24.4 % (10.0-50.0); Mean Corpuscular Hemoglobin 31.9 pg (28.0-32.0); Mean Corpuscular Hgb Conc. 32.8 g/dL (32.0-36.0); Mean Corpuscular Volume 97.2 fL (80.0-100.0); Monocytes # (auto) 0.9 10 ^3/uL (0-1.3); Monocytes % (auto) 16.6 % (0.0-12.0); Neutrophils % (auto) 54.5 % (37.0-80.0); Nucleated Red Blood Cells % 0.1 %; Red Blood Cells 3.97 10^6/uL (4.5-5.90); Red Cell Distribution Width 13.7 % (11.8-14.3); White Blood Cell 5.5 10^3/uL (4.4-10.8)
== END | disposition home or self-care (01) ==
LOC: CHF HDHVI 07:54
PROVIDERS: ATTEND Internal Medicine Cardiovascular Disease
DX: I13.2 Hypertensive heart and chronic kidney disease with heart failure and with stage 5 chronic kidney disease, or end stage renal disease (principal); E11.22 Type 2 diabetes mellitus with diabetic chronic kidney disease; I50.42 Chronic combined systolic (congestive) and diastolic (congestive) heart failure; N18.6 End stage renal disease; I25.10 Atherosclerotic heart disease of native coronary artery without angina pectoris; I25.5 Ischemic cardiomyopathy; I25.2 Old myocardial infarction; I48.11 Longstanding persistent atrial fibrillation; J44.9 Chronic obstructive pulmonary disease, unspecified; K21.9 Gastro-esophageal reflux disease without esophagitis; E11.42 Type 2 diabetes mellitus with diabetic polyneuropathy; E11.51 Type 2 diabetes mellitus with diabetic peripheral angiopathy without gangrene; E11.319 Type 2 diabetes mellitus with unspecified diabetic retinopathy without macular edema; E78.00 Pure hypercholesterolemia, unspecified; E78.5 Hyperlipidemia, unspecified; E03.9 Hypothyroidism, unspecified; M17.12 Unilateral primary osteoarthritis, left knee; G89.29 Other chronic pain; F41.9 Anxiety disorder, unspecified; F31.9 Bipolar disorder, unspecified; Z79.4 Long term (current) use of insulin; Z79.01 Long term (current) use of anticoagulants; Z79.82 Long term (current) use of aspirin; Z79.899 Other long term (current) drug therapy; Z87.891 Personal history of nicotine dependence; Z85.46 Personal history of malignant neoplasm of prostate; Z85.038 Personal history of other malignant neoplasm of large intestine; Z95.5 Presence of coronary angioplasty implant and graft; Z95.810 Presence of automatic (implantable) cardiac defibrillator; Z86.73 Personal history of transient ischemic attack (TIA), and cerebral infarction without residual deficits
CPT/HCPCS: 36415; 80048; 83735; 83880; 85025; 96365; 96366; 96375; G0463; J1250; J1642; J1940

== ENCOUNTER → 2021-12-22 | Outpatient (CLI) | payer OTHER ==
[2021-12-22] VITALS (9 sets, daily range): BP systolic 97–119; BP diastolic 51–71
[~2021-12-22] MED LIST changes: -FUROSEMIDE 100 MG/10ML VIAL IV ONE; -FUROSEMIDE 40 MG/4 ML VIAL ONE; +TESTOSTERONE CYPIONATE 200 MG/ML 1ML VIAL IM ONE
== END | disposition home or self-care (01) ==
LOC: CHF HDHVI 07:53
PROVIDERS: ATTEND Internal Medicine Cardiovascular Disease
DX: I13.2 Hypertensive heart and chronic kidney disease with heart failure and with stage 5 chronic kidney disease, or end stage renal disease (principal); E11.22 Type 2 diabetes mellitus with diabetic chronic kidney disease; I50.42 Chronic combined systolic (congestive) and diastolic (congestive) heart failure; N18.6 End stage renal disease; E29.1 Testicular hypofunction; I25.5 Ischemic cardiomyopathy; I25.10 Atherosclerotic heart disease of native coronary artery without angina pectoris; I25.2 Old myocardial infarction; I48.11 Longstanding persistent atrial fibrillation; J44.9 Chronic obstructive pulmonary disease, unspecified; K21.9 Gastro-esophageal reflux disease without esophagitis; E11.42 Type 2 diabetes mellitus with diabetic polyneuropathy; E11.51 Type 2 diabetes mellitus with diabetic peripheral angiopathy without gangrene; E11.319 Type 2 diabetes mellitus with unspecified diabetic retinopathy without macular edema; E03.9 Hypothyroidism, unspecified; M17.12 Unilateral primary osteoarthritis, left knee; G89.29 Other chronic pain; F41.9 Anxiety disorder, unspecified; F31.9 Bipolar disorder, unspecified; Z79.4 Long term (current) use of insulin; Z79.82 Long term (current) use of aspirin; Z79.01 Long term (current) use of anticoagulants; Z79.899 Other long term (current) drug therapy; Z87.891 Personal history of nicotine dependence; Z85.46 Personal history of malignant neoplasm of prostate; Z85.038 Personal history of other malignant neoplasm of large intestine; Z95.5 Presence of coronary angioplasty implant and graft; Z95.810 Presence of automatic (implantable) cardiac defibrillator; Z86.73 Personal history of transient ischemic attack (TIA), and cerebral infarction without residual deficits
CPT/HCPCS: 96365; 96366; 96372; G0463; J1071; J1250; J1642

== ENCOUNTER → 2021-12-24 | Outpatient (CLI) | payer OTHER ==
[~2021-12-24] VITALS: Ht 165.1 cm; Wt 82.8 kg
[2021-12-24] VITALS (9 sets, daily range): BP systolic 96–127; BP diastolic 51–76
[~2021-12-24] MED LIST changes: +FUROSEMIDE 40 MG/4 ML VIAL IV ONE; +FUROSEMIDE 40 MG/4 ML VIAL ONE; +POTASSIUM CHL 10 Meq TABLET PO ONE; -TESTOSTERONE CYPIONATE 200 MG/ML 1ML VIAL IM ONE
== END | disposition home or self-care (01) ==
LOC: CHF HDHVI 07:52
PROVIDERS: ATTEND Internal Medicine Cardiovascular Disease
DX: I13.2 Hypertensive heart and chronic kidney disease with heart failure and with stage 5 chronic kidney disease, or end stage renal disease (principal); E11.22 Type 2 diabetes mellitus with diabetic chronic kidney disease; I50.42 Chronic combined systolic (congestive) and diastolic (congestive) heart failure; N18.6 End stage renal disease; I25.10 Atherosclerotic heart disease of native coronary artery without angina pectoris; I25.2 Old myocardial infarction; I25.5 Ischemic cardiomyopathy; I48.11 Longstanding persistent atrial fibrillation; J44.9 Chronic obstructive pulmonary disease, unspecified; K21.9 Gastro-esophageal reflux disease without esophagitis; E11.51 Type 2 diabetes mellitus with diabetic peripheral angiopathy without gangrene; E11.42 Type 2 diabetes mellitus with diabetic polyneuropathy; E11.319 Type 2 diabetes mellitus with unspecified diabetic retinopathy without macular edema; E78.00 Pure hypercholesterolemia, unspecified; E78.5 Hyperlipidemia, unspecified; E03.9 Hypothyroidism, unspecified; M17.12 Unilateral primary osteoarthritis, left knee; G89.29 Other chronic pain; F41.9 Anxiety disorder, unspecified; F31.9 Bipolar disorder, unspecified; Z79.4 Long term (current) use of insulin; Z79.82 Long term (current) use of aspirin; Z79.01 Long term (current) use of anticoagulants; Z79.899 Other long term (current) drug therapy; Z85.46 Personal history of malignant neoplasm of prostate; Z85.038 Personal history of other malignant neoplasm of large intestine; Z87.891 Personal history of nicotine dependence; Z95.5 Presence of coronary angioplasty implant and graft; Z95.810 Presence of automatic (implantable) cardiac defibrillator; Z86.73 Personal history of transient ischemic attack (TIA), and cerebral infarction without residual deficits; Z99.2 Dependence on renal dialysis
CPT/HCPCS: 96365; 96366; 96375; G0463; J1250; J1642; J1940

== ENCOUNTER → 2021-12-27 | Outpatient (CLI) | payer OTHER ==
[2021-12-27] VITALS (9 sets, daily range): BP systolic 99–118; BP diastolic 55–67
[2021-12-27 11:11] LABS: Basophils # (auto) 0 10 ^3/uL (0-0.2); Basophils % (auto) 0.5 % (0.0-2.0); Eosinophils # (auto) 0.2 10 ^3/uL (0-0.8); Eosinophils % (auto) 3.6 % (0.0-7.0); Hematocrit 37.8 % (41.0-53.0); Hemoglobin 12.7 g/dL (13.5-17.5); Lymphocytes # (auto) 1.4 10 ^3/uL (0.4-5.4); Mean Corpuscular Hemoglobin 32.2 pg (28.0-32.0); Mean Corpuscular Hgb Conc. 33.7 g/dL (32.0-36.0); Mean Corpuscular Volume 95.7 fL (80.0-100.0); Monocytes # (auto) 0.9 10 ^3/uL (0-1.3); Monocytes % (auto) 17.9 % (0.0-12.0); Neutrophils # (auto) 2.7 10 ^3/uL (1.6-8.6); Red Blood Cells 3.95 10^6/uL (4.5-5.90); Red Cell Distribution Width 13.3 % (11.8-14.3); White Blood Cell 5.2 10^3/uL (4.4-10.8)
[2021-12-27 11:22] LABS: Potassium 4.7 mmol/L (3.5-5.1)
[2021-12-27 11:27] LABS: Albumin 3.9 g/dL (3.4-5.0); BUN/Creatinine Ratio 13.3; Bilirubin, Total 0.5 mg/dL (0.2-1.0); Calcium 8.8 mg/dL (8.5-10.1); Magnesium 2.7 mg/dL (1.6-2.6); Total Protein 7.3 g/dL (6.4-8.2)
== END | disposition home or self-care (01) ==
LOC: CHF HDHVI 07:55
PROVIDERS: ATTEND Internal Medicine Cardiovascular Disease
DX: I13.2 Hypertensive heart and chronic kidney disease with heart failure and with stage 5 chronic kidney disease, or end stage renal disease (principal); E11.22 Type 2 diabetes mellitus with diabetic chronic kidney disease; I50.42 Chronic combined systolic (congestive) and diastolic (congestive) heart failure; N18.6 End stage renal disease; I25.10 Atherosclerotic heart disease of native coronary artery without angina pectoris; I25.5 Ischemic cardiomyopathy; I25.2 Old myocardial infarction; I48.11 Longstanding persistent atrial fibrillation; J44.9 Chronic obstructive pulmonary disease, unspecified; K21.9 Gastro-esophageal reflux disease without esophagitis; E11.42 Type 2 diabetes mellitus with diabetic polyneuropathy; E11.51 Type 2 diabetes mellitus with diabetic peripheral angiopathy without gangrene; E11.319 Type 2 diabetes mellitus with unspecified diabetic retinopathy without macular edema; E78.00 Pure hypercholesterolemia, unspecified; E78.5 Hyperlipidemia, unspecified; E03.9 Hypothyroidism, unspecified; M17.12 Unilateral primary osteoarthritis, left knee; G89.29 Other chronic pain; F41.9 Anxiety disorder, unspecified; F31.9 Bipolar disorder, unspecified; Z95.810 Presence of automatic (implantable) cardiac defibrillator; Z95.5 Presence of coronary angioplasty implant and graft; Z99.2 Dependence on renal dialysis; Z79.01 Long term (current) use of anticoagulants; Z79.82 Long term (current) use of aspirin; Z79.4 Long term (current) use of insulin; Z79.899 Other long term (current) drug therapy; Z85.038 Personal history of other malignant neoplasm of large intestine; Z85.46 Personal history of malignant neoplasm of prostate; Z86.73 Personal history of transient ischemic attack (TIA), and cerebral infarction without residual deficits; Z87.891 Personal history of nicotine dependence
CPT/HCPCS: 36415; 80053; 83735; 83880; 85025; 96365; 96366; 96375; G0463; J1250; J1642; J1940

== ENCOUNTER → 2021-12-31 | Outpatient (CLI) | payer OTHER ==
[~2021-12-31] MED LIST changes: +CYANOCOBALAMIN (B-12) 1000 MCG/1 ML VIAL IM ONE; +CYANOCOBALAMIN (B-12) 1000 MCG/1 ML VIAL ONE; -DOBUTamine 1000MCG/ML 250 ML IV ONE; -FUROSEMIDE 40 MG/4 ML VIAL IV ONE; -FUROSEMIDE 40 MG/4 ML VIAL ONE; -POTASSIUM CHL 10 Meq TABLET PO ONE
[2021-12-31 11:28] LABS: Basophils # (auto) 0 10 ^3/uL (0-0.2); Basophils % (auto) 0.7 % (0.0-2.0); Eosinophils # (auto) 0.2 10 ^3/uL (0-0.8); Eosinophils % (auto) 3.8 % (0.0-7.0); Hematocrit 36.9 % (41.0-53.0); Hemoglobin 12.4 g/dL (13.5-17.5); Lymphocytes % (auto) 24.7 % (10.0-50.0); Mean Corpuscular Hemoglobin 31.9 pg (28.0-32.0); Mean Corpuscular Hgb Conc. 33.7 g/dL (32.0-36.0); Mean Corpuscular Volume 94.8 fL (80.0-100.0); Monocytes # (auto) 0.8 10 ^3/uL (0-1.3); Neutrophils % (auto) 51.3 % (37.0-80.0); Red Blood Cells 3.89 10^6/uL (4.5-5.90); Red Cell Distribution Width 13.3 % (11.8-14.3)
[2021-12-31 11:29] LABS: Monocytes % (auto) 19.5 % (0.0-12.0)
== END | disposition home or self-care (01) ==
LOC: CHF HDHVI 08:35
PROVIDERS: ATTEND Internal Medicine Cardiovascular Disease
DX: I13.2 Hypertensive heart and chronic kidney disease with heart failure and with stage 5 chronic kidney disease, or end stage renal disease (principal); E11.22 Type 2 diabetes mellitus with diabetic chronic kidney disease; I50.42 Chronic combined systolic (congestive) and diastolic (congestive) heart failure; N18.6 End stage renal disease; I25.10 Atherosclerotic heart disease of native coronary artery without angina pectoris; I25.5 Ischemic cardiomyopathy; I25.2 Old myocardial infarction; I48.11 Longstanding persistent atrial fibrillation; J44.9 Chronic obstructive pulmonary disease, unspecified; K21.9 Gastro-esophageal reflux disease without esophagitis; E11.42 Type 2 diabetes mellitus with diabetic polyneuropathy; E11.51 Type 2 diabetes mellitus with diabetic peripheral angiopathy without gangrene; E11.319 Type 2 diabetes mellitus with unspecified diabetic retinopathy without macular edema; E78.5 Hyperlipidemia, unspecified; E78.00 Pure hypercholesterolemia, unspecified; E03.9 Hypothyroidism, unspecified; G89.29 Other chronic pain; M17.12 Unilateral primary osteoarthritis, left knee; F41.9 Anxiety disorder, unspecified; F31.9 Bipolar disorder, unspecified; Z79.01 Long term (current) use of anticoagulants; Z79.82 Long term (current) use of aspirin; Z79.4 Long term (current) use of insulin; Z79.899 Other long term (current) drug therapy; Z99.2 Dependence on renal dialysis; Z85.038 Personal history of other malignant neoplasm of large intestine; Z85.46 Personal history of malignant neoplasm of prostate; Z87.891 Personal history of nicotine dependence; Z95.810 Presence of automatic (implantable) cardiac defibrillator; Z95.5 Presence of coronary angioplasty implant and graft; Z86.73 Personal history of transient ischemic attack (TIA), and cerebral infarction without residual deficits
CPT/HCPCS: 36415; 83880; 85025; 96372; G0463; J1642; J3420

== ENCOUNTER → 2022-01-06 | Outpatient (CLI) | payer OTHER ==
[~2022-01-06] MED LIST changes: -CYANOCOBALAMIN (B-12) 1000 MCG/1 ML VIAL IM ONE; -CYANOCOBALAMIN (B-12) 1000 MCG/1 ML VIAL ONE
[2022-01-06 10:55] VITALS: BP 129/76
[2022-01-06 11:50] LABS: Basophils # (auto) 0 10 ^3/uL (0-0.2); Basophils % (auto) 1.1 % (0.0-2.0); Eosinophils # (auto) 0.2 10 ^3/uL (0-0.8); Eosinophils % (auto) 4.4 % (0.0-7.0); Hematocrit 37.4 % (41.0-53.0); Hemoglobin 12.3 g/dL (13.5-17.5); Lymphocytes # (auto) 0.7 10 ^3/uL (0.4-5.4); Lymphocytes % (auto) 19.7 % (10.0-50.0); Mean Corpuscular Hemoglobin 31.2 pg (28.0-32.0); Mean Corpuscular Hgb Conc. 32.9 g/dL (32.0-36.0); Mean Corpuscular Volume 94.7 fL (80.0-100.0); Monocytes # (auto) 0.6 10 ^3/uL (0-1.3); Monocytes % (auto) 16.5 % (0.0-12.0); Neutrophils % (auto) 58.3 % (37.0-80.0); Nucleated Red Blood Cells % 0.1 %; Red Blood Cells 3.95 10^6/uL (4.5-5.90); Red Cell Distribution Width 13.4 % (11.8-14.3); White Blood Cell 3.5 10^3/uL (4.4-10.8)
[2022-01-06 12:19] LABS: Albumin 3.8 g/dL (3.4-5.0); BUN/Creatinine Ratio 13.7; Calcium 9.2 mg/dL (8.5-10.1); Potassium 4.5 mmol/L (3.5-5.1)
[2022-01-06 12:44] LABS: Bilirubin, Total 0.5 mg/dL (0.2-1.0); Total Protein 7.3 g/dL (6.4-8.2)
== END | disposition home or self-care (01) ==
LOC: CHF HDHVI 10:27
PROVIDERS: ATTEND Internal Medicine Cardiovascular Disease
DX: I50.23 Acute on chronic systolic (congestive) heart failure (principal)
CPT/HCPCS: 36415; 80053; 83735; 83880; 85025; G0463; J1642

== ENCOUNTER → 2022-01-14 | Outpatient (CLI) | payer OTHER ==
[2022-01-14 08:38] VITALS: BP 113/78
[2022-01-14 12:25] LABS: Basophils # (auto) 0 10 ^3/uL (0-0.2); Basophils % (auto) 1.4 % (0.0-2.0); Eosinophils # (auto) 0.1 10 ^3/uL (0-0.8); Eosinophils % (auto) 3.7 % (0.0-7.0); Hemoglobin 12.8 g/dL (13.5-17.5); Lymphocytes # (auto) 0.8 10 ^3/uL (0.4-5.4); Lymphocytes % (auto) 24.8 % (10.0-50.0); Mean Corpuscular Hemoglobin 31.7 pg (28.0-32.0); Mean Corpuscular Hgb Conc. 33.7 g/dL (32.0-36.0); Mean Corpuscular Volume 94.1 fL (80.0-100.0); Monocytes # (auto) 0.6 10 ^3/uL (0-1.3); Monocytes % (auto) 18.2 % (0.0-12.0); Neutrophils # (auto) 1.6 10 ^3/uL (1.6-8.6); Neutrophils % (auto) 51.9 % (37.0-80.0); Nucleated Red Blood Cells % 0.2 %; Red Blood Cells 4.04 10^6/uL (4.5-5.90); Red Cell Distribution Width 13.7 % (11.8-14.3)
[2022-01-14 12:38] LABS: Albumin 3.8 g/dL (3.4-5.0); BUN/Creatinine Ratio 16.5; Calcium 8.8 mg/dL (8.5-10.1); Magnesium 2.7 mg/dL (1.6-2.6); Potassium 4.6 mmol/L (3.5-5.1)
[2022-01-14 12:40] LABS: Bilirubin, Total 0.8 mg/dL (0.2-1.0); Total Protein 7.3 g/dL (6.4-8.2)
== END | disposition home or self-care (01) ==
LOC: CHF HDHVI 08:20
PROVIDERS: ATTEND Internal Medicine Cardiovascular Disease
DX: I11.0 Hypertensive heart disease with heart failure (principal); I50.23 Acute on chronic systolic (congestive) heart failure; I25.5 Ischemic cardiomyopathy; I48.91 Unspecified atrial fibrillation
CPT/HCPCS: 36415; 80053; 83735; 83880; 85025; G0463; J1642

== ENCOUNTER → 2022-01-17 | Outpatient (CLI) | payer OTHER ==
[~2022-01-17] MED LIST changes: +POTA10TA51 PO; +RIVA10TA2 PO
[2022-01-17 15:00] VITALS: BP 129/78
== END | disposition home or self-care (01) ==
LOC: CHF HDHVI 14:11
PROVIDERS: ATTEND Internal Medicine Cardiovascular Disease
DX: K30 Functional dyspepsia (principal); H57.89 Other specified disorders of eye and adnexa; R19.7 Diarrhea, unspecified; R13.10 Dysphagia, unspecified
CPT/HCPCS: G0463

== ENCOUNTER → 2022-01-28 | Outpatient (CLI) | payer OTHER ==
[~2022-01-28] MED LIST changes: -POTA10TA51 PO; -RIVA10TA2 PO
[2022-01-28 08:17] VITALS: BP 93/59
[2022-01-28 11:36] LABS: Potassium 4.4 mmol/L (3.5-5.1)
== END | disposition home or self-care (01) ==
LOC: CHF HDHVI 07:52
PROVIDERS: ATTEND Internal Medicine Cardiovascular Disease
DX: I50.23 Acute on chronic systolic (congestive) heart failure (principal)
CPT/HCPCS: 36415; 82565; 83880; 84132; 84520; G0463; J1642

== ENCOUNTER 2022-02-07 13:55 | Inpatient (IN) | payer OTHER ==
[~2022-02-07] VITALS: Ht 180.3 cm; Wt 82.9 kg
[~2022-02-07 13:55] MED LIST changes: -KETOROLAC TROMETH 60MG/2ML VIAL IM ONE; -KETOROLAC TROMETH 60MG/2ML VIAL ONE; -POTA10TA51 PO; -RIVA10TA2 PO
[2022-02-07] MEDS ORDERED: DOBUTamine 1000MCG/ML 250 ML IV SCH (16:00)
[2022-02-07] MEDS ORDERED: RAMIPRIL 10 MG CAP PO ONE (16:30)
[2022-02-07 16:32] VITALS: BP 126/86
[2022-02-07] MEDS ORDERED: RAMIPRIL 2.5 MG CAP PO ONE (16:45)
[2022-02-07] MEDS ORDERED: RIVA10TA2 PO (17:28)
[2022-02-07] MEDS ORDERED: POTA10TA51 PO (17:28)
[2022-02-07] MEDS: RIVAROXABAN 15 MG TAB PO SCH (17:46)
[2022-02-07] MEDS: DOBUTamine 1000MCG/ML 250 ML IV SCH (17:46)
[2022-02-07 18:58] LABS: Basophils # (auto) 0 10 ^3/uL (0-0.2); Basophils % (auto) 0.7 % (0.0-2.0); Eosinophils # (auto) 0.1 10 ^3/uL (0-0.8); Eosinophils % (auto) 1.1 % (0.0-7.0); Hematocrit 38.5 % (41.0-53.0); Hemoglobin 12.7 g/dL (13.5-17.5); Lymphocytes % (auto) 18.9 % (10.0-50.0); Mean Corpuscular Hemoglobin 31.2 pg (28.0-32.0); Mean Corpuscular Hgb Conc. 32.9 g/dL (32.0-36.0); Mean Corpuscular Volume 94.9 fL (80.0-100.0); Monocytes # (auto) 0.6 10 ^3/uL (0-1.3); Monocytes % (auto) 11.9 % (0.0-12.0); Neutrophils # (auto) 3.5 10 ^3/uL (1.6-8.6); Neutrophils % (auto) 67.4 % (37.0-80.0); Red Blood Cells 4.06 10^6/uL (4.5-5.90); Red Cell Distribution Width 14.6 % (11.8-14.3); White Blood Cell 5.2 10^3/uL (4.4-10.8)
[2022-02-07 19:10] LABS: Albumin 3.8 g/dL (3.4-5.0); BUN/Creatinine Ratio 11.9; Calcium 9.6 mg/dL (8.5-10.1)
[2022-02-07 19:13] LABS: Total Protein 7.4 g/dL (6.4-8.2)
[2022-02-07] MEDS ORDERED: MORPHINE SULFATE INJECTION 2 MG/ML SYRG IV PRN (19:30)
[2022-02-07] MEDS ORDERED: NITROGLYCERIN 0.4 MG SL TAB SL PRN (19:30)
[2022-02-07 21:59] VITALS: BP 112/56
[2022-02-07] MEDS: IVABRADINE 5 MG TAB PO SCH (22:22)
[2022-02-07] MEDS: POTASSIUM CHL 20 Meq TABLET PO SCH (22:23)
[2022-02-08] MEDS: DOBUTamine 1000MCG/ML 250 ML IV SCH ×2 (03:49→13:46)
[2022-02-08 04:00] VITALS: BP 123/64
[2022-02-08 09:00] VITALS: BP 109/59
[2022-02-08] MEDS: METOPROLOL SUCCINATE XL 50 MG TAB PO SCH (10:00)
[2022-02-08] MEDS ORDERED: hydrOXYchloroQUINE SULFATE 200 MG TAB PO SCH (10:00)
[2022-02-08] MEDS: DIGOXIN 0.125 MG TAB PO SCH (10:00)
[2022-02-08] MEDS: IVABRADINE 5 MG TAB PO SCH ×2 (10:00→22:00)
[2022-02-08] MEDS: MAGNESIUM OXIDE 400 MG TAB PO SCH (10:22)
[2022-02-08] MEDS: FUROSEMIDE 20 MG TAB PO SCH (10:22)
[2022-02-08] MEDS: POTASSIUM CHL 20 Meq TABLET PO SCH ×2 (10:22→22:00)
[2022-02-08 12:44] VITALS: BP 125/74
[2022-02-08] MEDS ORDERED: KETOROLAC TROMETH 60MG/2ML VIAL IM PRN (15:45)
[2022-02-08] MEDS ORDERED: ONDANSETRON HCL 4 MG/2 ML VIAL IV PRN (15:45)
[2022-02-08 17:00] VITALS: BP 133/78
[2022-02-08] MEDS: RIVAROXABAN 15 MG TAB PO SCH (18:00)
[2022-02-08 22:00] VITALS: BP 125/75
[2022-02-09] MEDS: DOBUTamine 1000MCG/ML 250 ML IV SCH ×3 (00:09→20:55)
[2022-02-09 05:00] VITALS: BP 108/59
[2022-02-09 09:00] VITALS: BP 141/73
[2022-02-09] MEDS: IVABRADINE 5 MG TAB PO SCH ×2 (10:04→22:30)
[2022-02-09] MEDS: POTASSIUM CHL 20 Meq TABLET PO SCH ×2 (10:04→22:30)
[2022-02-09] MEDS: DIGOXIN 0.125 MG TAB PO SCH (10:05)
[2022-02-09] MEDS: FUROSEMIDE 20 MG TAB PO SCH (10:11)
[2022-02-09] MEDS: MAGNESIUM OXIDE 400 MG TAB PO SCH (10:12)
[2022-02-09] MEDS: METOPROLOL SUCCINATE XL 50 MG TAB PO SCH (10:12)
[2022-02-09 13:29] VITALS: BP 128/73
[2022-02-09 17:00] VITALS: BP 111/64
[2022-02-09] MEDS: RIVAROXABAN 15 MG TAB PO SCH (18:08)
[2022-02-09 22:00] VITALS: BP 119/71
[2022-02-09] MEDS ORDERED: SALINE 0.65 % NASAL SPRAY 45ML BOTTLE EACHNOSTRI SCH (22:30)
[2022-02-09] MEDS ORDERED: SALINE 0.65 % NASAL SPRAY 45ML BOTTLE EACHNOSTRI PRN (22:45)
[2022-02-10 03:12] VITALS: BP 123/82
[2022-02-10] MEDS: DOBUTamine 1000MCG/ML 250 ML IV SCH ×2 (03:12→17:41)
[2022-02-10 05:00] VITALS: BP 136/74
[2022-02-10 09:00] VITALS: BP 132/70
[2022-02-10] MEDS: FUROSEMIDE 20 MG TAB PO SCH (10:00)
[2022-02-10] MEDS: POTASSIUM CHL 20 Meq TABLET PO SCH ×2 (10:00→21:16)
[2022-02-10] MEDS: METOPROLOL SUCCINATE XL 50 MG TAB PO SCH (10:00)
[2022-02-10] MEDS: DIGOXIN 0.125 MG TAB PO SCH (10:00)
[2022-02-10] MEDS: IVABRADINE 5 MG TAB PO SCH ×2 (10:00→21:17)
[2022-02-10] MEDS: MAGNESIUM OXIDE 400 MG TAB PO SCH (10:00)
[2022-02-10 13:00] VITALS: BP 134/74
[2022-02-10 16:53] VITALS: BP 132/70
[2022-02-10] MEDS: RIVAROXABAN 15 MG TAB PO SCH (18:00)
[2022-02-10 21:27] VITALS: BP 112/62
[2022-02-11] MEDS: DOBUTamine 1000MCG/ML 250 ML IV SCH ×2 (00:43→13:20)
[2022-02-11 05:00] VITALS: BP 119/76
[2022-02-11 09:00] VITALS: BP 126/75
[2022-02-11] MEDS: MAGNESIUM OXIDE 400 MG TAB PO SCH (09:57)
[2022-02-11] MEDS: METOPROLOL SUCCINATE XL 50 MG TAB PO SCH (09:58)
[2022-02-11] MEDS: FUROSEMIDE 20 MG TAB PO SCH (09:59)
[2022-02-11] MEDS: DIGOXIN 0.125 MG TAB PO SCH (10:00)
[2022-02-11] MEDS: IVABRADINE 5 MG TAB PO SCH ×2 (10:09→21:54)
[2022-02-11 10:43] LABS: Basophils # (auto) 0 10 ^3/uL (0-0.2); Basophils % (auto) 0.5 % (0.0-2.0); Eosinophils # (auto) 0.1 10 ^3/uL (0-0.8); Eosinophils % (auto) 1.3 % (0.0-7.0); Hematocrit 33.1 % (41.0-53.0); Hemoglobin 11.2 g/dL (13.5-17.5); Lymphocytes # (auto) 0.5 10 ^3/uL (0.4-5.4); Lymphocytes % (auto) 10.3 % (10.0-50.0); Mean Corpuscular Hemoglobin 31.5 pg (28.0-32.0); Mean Corpuscular Hgb Conc. 33.9 g/dL (32.0-36.0); Mean Corpuscular Volume 92.7 fL (80.0-100.0); Monocytes # (auto) 0.7 10 ^3/uL (0-1.3); Monocytes % (auto) 15.6 % (0.0-12.0); Neutrophils # (auto) 3.4 10 ^3/uL (1.6-8.6); Neutrophils % (auto) 72.3 % (37.0-80.0); Red Blood Cells 3.57 10^6/uL (4.5-5.90); Red Cell Distribution Width 14.4 % (11.8-14.3); White Blood Cell 4.7 10^3/uL (4.4-10.8)
[2022-02-11 11:08] LABS: Calcium 8.8 mg/dL (8.5-10.1)
[2022-02-11 11:10] LABS: BUN/Creatinine Ratio 17.4
[2022-02-11 13:00] VITALS: BP 124/74
[2022-02-11] MEDS: POTASSIUM CHL 20 Meq TABLET PO SCH ×2 (13:20→21:54)
[2022-02-11 17:00] VITALS: BP 135/75
[2022-02-11] MEDS: RIVAROXABAN 15 MG TAB PO SCH (18:04)
[2022-02-11 22:18] VITALS: BP 120/76
[2022-02-12] MEDS: DOBUTamine 1000MCG/ML 250 ML IV SCH ×3 (00:42→21:36)
[2022-02-12 05:48] VITALS: BP 121/73
[2022-02-12 09:00] VITALS: BP 127/72
[2022-02-12] MEDS: IVABRADINE 5 MG TAB PO SCH ×2 (10:20→21:27)
[2022-02-12] MEDS: MAGNESIUM OXIDE 400 MG TAB PO SCH (10:20)
[2022-02-12] MEDS: DIGOXIN 0.125 MG TAB PO SCH (10:22)
[2022-02-12] MEDS: FUROSEMIDE 20 MG TAB PO SCH (10:23)
[2022-02-12] MEDS: METOPROLOL SUCCINATE XL 50 MG TAB PO SCH (10:25)
[2022-02-12] MEDS: POTASSIUM CHL 20 Meq TABLET PO SCH ×2 (10:26→21:27)
[2022-02-12 13:00] VITALS: BP 124/81
[2022-02-12 17:02] VITALS: BP 135/65
[2022-02-12] MEDS: RIVAROXABAN 15 MG TAB PO SCH (18:09)
[2022-02-12 22:00] VITALS: BP 128/74
[2022-02-13 05:00] VITALS: BP 133/70
[2022-02-13] MEDS: DOBUTamine 1000MCG/ML 250 ML IV SCH ×2 (07:55→18:28)
[2022-02-13 08:00] VITALS: BP 120/75
[2022-02-13] MEDS: MAGNESIUM OXIDE 400 MG TAB PO SCH (09:59)
[2022-02-13] MEDS: POTASSIUM CHL 20 Meq TABLET PO SCH ×2 (09:59→21:25)
[2022-02-13] MEDS: FUROSEMIDE 20 MG TAB PO SCH (10:00)
[2022-02-13] MEDS: DIGOXIN 0.125 MG TAB PO SCH (10:01)
[2022-02-13] MEDS: METOPROLOL SUCCINATE XL 50 MG TAB PO SCH (10:01)
[2022-02-13] MEDS: IVABRADINE 5 MG TAB PO SCH ×2 (10:03→21:24)
[2022-02-13 12:00] VITALS: BP 121/72
[2022-02-13 17:00] VITALS: BP 112/76
[2022-02-13] MEDS: RIVAROXABAN 15 MG TAB PO SCH (18:05)
[2022-02-13 22:00] VITALS: BP 125/74
[2022-02-14] MEDS ORDERED: TEMAZEPAM 15 MG CAP PO ONE (00:15)
[2022-02-14 04:41] VITALS: BP 126/73
[2022-02-14] MEDS: DOBUTamine 1000MCG/ML 250 ML IV SCH (05:09)
[2022-02-14 09:00] VITALS: BP 131/80
[2022-02-14] MEDS: IVABRADINE 5 MG TAB PO SCH (09:36)
[2022-02-14] MEDS: POTASSIUM CHL 20 Meq TABLET PO SCH (09:36)
[2022-02-14] MEDS: DIGOXIN 0.125 MG TAB PO SCH (09:37)
[2022-02-14] MEDS: MAGNESIUM OXIDE 400 MG TAB PO SCH (09:37)
[2022-02-14] MEDS: FUROSEMIDE 20 MG TAB PO SCH (09:37)
[2022-02-14] MEDS: METOPROLOL SUCCINATE XL 50 MG TAB PO SCH (09:38)
[2022-02-14 13:00] VITALS: BP 121/68
[2022-02-14 13:22] VITALS: BP 121/68
== END 2022-02-14 14:27 | disposition home or self-care (01) | DRG 65 ==
LOC: TELE-EAST 15:12
PROVIDERS: ADMIT Internal Medicine Cardiovascular Disease; ATTEND Family Medicine
DX: I63.9 Cerebral infarction, unspecified (principal); G81.91 Hemiplegia, unspecified affecting right dominant side; D68.59 Other primary thrombophilia; I50.22 Chronic systolic (congestive) heart failure; I13.0 Hypertensive heart and chronic kidney disease with heart failure and stage 1 through stage 4 chronic kidney disease, or unspecified chronic kidney disease; I25.5 Ischemic cardiomyopathy; I25.10 Atherosclerotic heart disease of native coronary artery without angina pectoris; E78.5 Hyperlipidemia, unspecified; Z82.49 Family history of ischemic heart disease and other diseases of the circulatory system; Z86.73 Personal history of transient ischemic attack (TIA), and cerebral infarction without residual deficits; Z95.1 Presence of aortocoronary bypass graft; Z95.810 Presence of automatic (implantable) cardiac defibrillator; I48.0 Paroxysmal atrial fibrillation; N18.31 Chronic kidney disease, stage 3a; Z20.822 Contact with and (suspected) exposure to COVID-19
CPT/HCPCS: 36415; 80048; 80053; 82962; 85025; 87081; 93005; 97163; G0378; J1885; J2405

== ENCOUNTER → 2022-02-07 | Outpatient (CLI) | payer OTHER ==
[~2022-02-07] MED LIST changes: +KETOROLAC TROMETH 60MG/2ML VIAL IM ONE; +KETOROLAC TROMETH 60MG/2ML VIAL ONE; +POTA10TA51 PO; +RIVA10TA2 PO
[2022-02-07 14:28] VITALS: BP 127/80
[2022-02-07 15:54] LABS: Basophils # (auto) 0.1 10 ^3/uL (0-0.2); Basophils % (auto) 2.2 % (0.0-2.0); Eosinophils # (auto) 0 10 ^3/uL (0-0.8); Hematocrit 36.5 % (41.0-53.0); Hemoglobin 12.3 g/dL (13.5-17.5); Lymphocytes # (auto) 0.5 10 ^3/uL (0.4-5.4); Lymphocytes % (auto) 10.2 % (10.0-50.0); Mean Corpuscular Hemoglobin 31.5 pg (28.0-32.0); Mean Corpuscular Hgb Conc. 33.8 g/dL (32.0-36.0); Mean Corpuscular Volume 93.2 fL (80.0-100.0); Monocytes # (auto) 0.6 10 ^3/uL (0-1.3); Monocytes % (auto) 11.5 % (0.0-12.0); Neutrophils # (auto) 3.8 10 ^3/uL (1.6-8.6); Neutrophils % (auto) 75.1 % (37.0-80.0); Red Blood Cells 3.91 10^6/uL (4.5-5.90); Red Cell Distribution Width 14.6 % (11.8-14.3); White Blood Cell 5.1 10^3/uL (4.4-10.8)
[2022-02-07 15:58] LABS: Albumin 3.7 g/dL (3.4-5.0); Calcium 9.3 mg/dL (8.5-10.1); Potassium 4.6 mmol/L (3.5-5.1)
[2022-02-07 16:02] LABS: BUN/Creatinine Ratio 12.7; Bilirubin, Total 0.8 mg/dL (0.2-1.0); Total Protein 7.3 g/dL (6.4-8.2)
== END | disposition home or self-care (01) ==
LOC: CHF HDHVI 12:50
PROVIDERS: ATTEND Internal Medicine Cardiovascular Disease
DX: I13.2 Hypertensive heart and chronic kidney disease with heart failure and with stage 5 chronic kidney disease, or end stage renal disease (principal); E11.22 Type 2 diabetes mellitus with diabetic chronic kidney disease; I50.42 Chronic combined systolic (congestive) and diastolic (congestive) heart failure; N18.6 End stage renal disease; I25.5 Ischemic cardiomyopathy; R53.83 Other fatigue; M54.9 Dorsalgia, unspecified; M25.519 Pain in unspecified shoulder; D68.4 Acquired coagulation factor deficiency; I82.621 Acute embolism and thrombosis of deep veins of right upper extremity; U07.1 COVID-19; E78.5 Hyperlipidemia, unspecified; I48.0 Paroxysmal atrial fibrillation; J18.9 Pneumonia, unspecified organism; I47.2 Ventricular tachycardia; I25.10 Atherosclerotic heart disease of native coronary artery without angina pectoris; G81.91 Hemiplegia, unspecified affecting right dominant side; D68.59 Other primary thrombophilia; I25.2 Old myocardial infarction; J44.9 Chronic obstructive pulmonary disease, unspecified; K21.9 Gastro-esophageal reflux disease without esophagitis; E11.42 Type 2 diabetes mellitus with diabetic polyneuropathy; F31.9 Bipolar disorder, unspecified; E11.51 Type 2 diabetes mellitus with diabetic peripheral angiopathy without gangrene; E11.319 Type 2 diabetes mellitus with unspecified diabetic retinopathy without macular edema; E78.00 Pure hypercholesterolemia, unspecified; F41.9 Anxiety disorder, unspecified; Z79.01 Long term (current) use of anticoagulants; Z99.2 Dependence on renal dialysis; Z79.82 Long term (current) use of aspirin; Z95.1 Presence of aortocoronary bypass graft; Z95.810 Presence of automatic (implantable) cardiac defibrillator; Z79.4 Long term (current) use of insulin; Z79.899 Other long term (current) drug therapy; Z85.038 Personal history of other malignant neoplasm of large intestine; Z86.73 Personal history of transient ischemic attack (TIA), and cerebral infarction without residual deficits; Z85.46 Personal history of malignant neoplasm of prostate; Z87.891 Personal history of nicotine dependence
CPT/HCPCS: 36415; 80053; 80162; 83735; 83880; 85025; 96372; G0463; J1642; J1885

== ENCOUNTER 2022-02-15 13:03 | Inpatient (IN) | payer OTHER ==
[~2022-02-15] VITALS: Ht 180.3 cm; Wt 75.1 kg
[~2022-02-15 13:03] MED LIST changes: +POTA10TA51 PO; +RIVA10TA2 PO
[2022-02-15 14:08] LABS: Basophils # (auto) 0 10 ^3/uL (0-0.2); Basophils % (auto) 0.8 % (0.0-2.0); Eosinophils # (auto) 0.1 10 ^3/uL (0-0.8); Eosinophils % (auto) 1.7 % (0.0-7.0); Hematocrit 35.2 % (41.0-53.0); Hemoglobin 11.9 g/dL (13.5-17.5); Lymphocytes # (auto) 0.6 10 ^3/uL (0.4-5.4); Lymphocytes % (auto) 11.3 % (10.0-50.0); Mean Corpuscular Hemoglobin 31.5 pg (28.0-32.0); Mean Corpuscular Hgb Conc. 33.8 g/dL (32.0-36.0); Mean Corpuscular Volume 93.2 fL (80.0-100.0); Monocytes # (auto) 0.8 10 ^3/uL (0-1.3); Monocytes % (auto) 14.6 % (0.0-12.0); Neutrophils # (auto) 3.7 10 ^3/uL (1.6-8.6); Neutrophils % (auto) 71.6 % (37.0-80.0); Nucleated Red Blood Cells % 0.2 %; Red Blood Cells 3.77 10^6/uL (4.5-5.90); White Blood Cell 5.2 10^3/uL (4.4-10.8)
[2022-02-15 14:26] LABS: INR 1.54 (0.9-1.15); Partial Thromboplastin Time 38.7 sec (23.6-33.0)
[2022-02-15] MEDS ORDERED: MORPHINE SULFATE INJECTION 2 MG/ML SYRG IV PRN ×2 (14:45→16:45)
[2022-02-15] MEDS ORDERED: NITROGLYCERIN 0.4 MG SL TAB SL PRN (14:45)
[2022-02-15 14:58] LABS: CRP High Sensitivity 7.16 mg/dL (< 0.3)
[2022-02-15] MEDS ORDERED: ACETAMINOPHEN 500 MG TAB PO PRN (16:30)
[2022-02-15] MEDS ORDERED: PANTOPRAZOLE 40 MG/10 ML VIAL INJ IV ONE (16:45)
[2022-02-15] MEDS: HYDROcodone-ACET 5/325MG TAB PO ONE ×2 (16:45→17:09)
[2022-02-15] MEDS ORDERED: ONDANSETRON HCL 4 MG/2 ML VIAL IV PRN (16:45)
[2022-02-15] MEDS ORDERED: SUCRALFATE 1 GM/10 ML ORAL SUSP PO ONE (16:45)
[2022-02-15] MEDS ORDERED: hydrALAZINE HCL 20 MG/ML VL IV PRN (16:45)
[2022-02-15] MEDS ORDERED: FOLIC ACID 1 MG TAB PO ONE (16:45)
[2022-02-15] MEDS ORDERED: IPRATROPIUM BROM 0.5 MG/2.5ML INH SOL NEB ONE (16:45)
[2022-02-15] MEDS ORDERED: BUMETANIDE 2.5mg/10ml (0.25 mg/ml) INJ IV ONE (16:45)
[2022-02-15] MEDS ORDERED: LACTULOSE 20Gm/30ML SOLN PO PRN (16:45)
[2022-02-15] MEDS ORDERED: FERROUS SULFATE 325mg EC TAB PO ONE (16:45)
[2022-02-15] MEDS ORDERED: DOCUSATE SOD 100 MG CAP PO PRN (16:45)
[2022-02-15] MEDS ORDERED: HYDROcodone-ACET 5/325MG TAB PO PRN (16:45)
[2022-02-15 16:48] LABS: Magnesium 2.6 mg/dL (1.6-2.6); Phosphorus 3.6 mg/dL (2.5-4.90)
[2022-02-15] MEDS ORDERED: MILRINONE 20MG/100ML 100 ML IV SCH (17:15)
[2022-02-15] MEDS ORDERED: IPRATROPIUM BROM 0.5 MG/2.5ML INH SOL NEB SCH (18:00)
[2022-02-15] MEDS ORDERED: IPRATROPIUM BROM 0.5 MG/2.5ML INH SOL NEB PRN (18:00)
[2022-02-15] MEDS: DOBUTamine 1000MCG/ML 250 ML IV SCH (18:34)
[2022-02-15 19:19] LABS: Urine Bacteria NONE SEEN /hpf (None Seen); Urine Blood Negative /uL (Negative); Urine Specific Gravity 1.009 (1.001-1.035); Urine WBC None Seen /hpf (0 - 3)
[2022-02-15 20:55] VITALS: BP 131/74
[2022-02-15] MEDS: BUDESONIDE (INHALATION) 180 MCG IH IN SCH (21:36)
[2022-02-15 22:00] VITALS: BP 129/75
[2022-02-15 22:19] VITALS: BP 129/75
[2022-02-15] MEDS: DOXYCYCLINE 100MG/250ML 250 ML IV SCH (22:24)
[2022-02-15] MEDS: SUCRALFATE 1 GM/10 ML ORAL SUSP PO SCH (22:25)
[2022-02-15] MEDS: IVABRADINE 5 MG TAB PO SCH (22:26)
[2022-02-15] MEDS: ALBUTEROL SULF HFA 90MCG INH 200DOSE IN PRN (23:41)
[2022-02-16] MEDS: DOBUTamine 1000MCG/ML 250 ML IV SCH ×2 (04:15→14:31)
[2022-02-16 05:00] VITALS: BP 120/68
[2022-02-16] MEDS ORDERED: BUMETANIDE 2.5mg/10ml (0.25 mg/ml) INJ IV SCH (06:00)
[2022-02-16 06:40] LABS: Basophils # (auto) 0 10 ^3/uL (0-0.2); Basophils % (auto) 0.8 % (0.0-2.0); Eosinophils # (auto) 0.1 10 ^3/uL (0-0.8); Eosinophils % (auto) 1.8 % (0.0-7.0); Hematocrit 32.6 % (41.0-53.0); Hemoglobin 11.3 g/dL (13.5-17.5); Lymphocytes # (auto) 0.8 10 ^3/uL (0.4-5.4); Lymphocytes % (auto) 18.6 % (10.0-50.0); Mean Corpuscular Hgb Conc. 34.7 g/dL (32.0-36.0); Mean Corpuscular Volume 92.3 fL (80.0-100.0); Monocytes # (auto) 0.5 10 ^3/uL (0-1.3); Monocytes % (auto) 12.8 % (0.0-12.0); Neutrophils # (auto) 2.7 10 ^3/uL (1.6-8.6); Nucleated Red Blood Cells % 0.1 %; Red Blood Cells 3.53 10^6/uL (4.5-5.90); White Blood Cell 4.1 10^3/uL (4.4-10.8)
[2022-02-16 06:57] LABS: Potassium 3.7 mmol/L (3.5-5.1)
[2022-02-16] MEDS: SUCRALFATE 1 GM/10 ML ORAL SUSP PO SCH (07:05)
[2022-02-16 07:16] LABS: Alcohol, Urine < 3.0 mg/dL (0-10); Amphetamine Screen, Urine NEGATIVE (NEGATIVE); Barbiturate Scree,Urine NEGATIVE (NEGATIVE); Benzodiazephine Screen, Urine NEGATIVE (NEGATIVE); Cannabinoid Screen, Urine NEGATIVE (NEGATIVE); Cocaine Screen, Urine NEGATIVE (NEGATIVE); Opiate Scree,Urine NEGATIVE (NEGATIVE); Phencyclidine Screen, Urine NEGATIVE (NEGATIVE)
[2022-02-16 07:17] LABS: Albumin 3.2 g/dL (3.4-5.0); BUN/Creatinine Ratio 21.5; Bilirubin, Total 1.4 mg/dL (0.2-1.0); CRP High Sensitivity 5.07 mg/dL (< 0.3); Calcium 8.7 mg/dL (8.5-10.1); Magnesium 2.4 mg/dL (1.6-2.6); Phosphorus 3.9 mg/dL (2.5-4.90); Uric Acid 6.8 mg/dL (3.5-7.2)
[2022-02-16] MEDS: ALBUTEROL SULF HFA 90MCG INH 200DOSE IN PRN (07:32)
[2022-02-16] MEDS: BUDESONIDE (INHALATION) 180 MCG IH IN SCH ×2 (07:34→19:35)
[2022-02-16] MEDS ORDERED: FERROUS SULFATE 325mg EC TAB PO SCH (08:00)
[2022-02-16 09:00] VITALS: BP 114/63
[2022-02-16] MEDS: DIGOXIN 0.125 MG TAB PO SCH (10:00)
[2022-02-16] MEDS: THIAMINE HCL 100 MG TAB PO SCH (10:00)
[2022-02-16] MEDS ORDERED: ASPirin 81 mg TAB PO SCH (10:00)
[2022-02-16] MEDS: DOXYCYCLINE 100MG/250ML 250 ML IV SCH ×2 (10:00→23:37)
[2022-02-16] MEDS: METOPROLOL SUCCINATE XL 50 MG TAB PO SCH (10:00)
[2022-02-16] MEDS: CYANOCOBALAMIN 500 MCG TAB PO SCH (10:00)
[2022-02-16] MEDS ORDERED: FOLIC ACID 1 MG TAB PO SCH (10:00)
[2022-02-16] MEDS: ASCORBIC ACID 1,000 MG TAB PO SCH (10:00)
[2022-02-16] MEDS ORDERED: DexAMETHasone SOD PHOS 10MG/1ML VIAL INJ IV SCH (10:00)
[2022-02-16] MEDS: IVABRADINE 5 MG TAB PO SCH ×2 (10:00→22:37)
[2022-02-16] MEDS: CHOLECALCIFEROL (VITD3) 2,000 UNIT CAP/TAB PO SCH (10:00)
[2022-02-16] MEDS: VERICIGUAT 5 MG PO SCH (10:00)
[2022-02-16] MEDS ORDERED: PANTOPRAZOLE 40 MG/10 ML VIAL INJ IV SCH (10:00)
[2022-02-16] MEDS: POTASSIUM CHL 20 Meq TABLET PO SCH ×2 (10:00→22:38)
[2022-02-16] MEDS: RIVAROXABAN 10 MG TAB PO SCH (10:00)
[2022-02-16] MEDS: ZINC SULFATE 220mg CAP or TAB PO SCH (10:00)
[2022-02-16] MEDS: BENAZEPRIL HCL 10 MG TAB PO SCH (10:00)
[2022-02-16] MEDS ORDERED: MAGNESIUM OXIDE 400 MG TAB PO ONE (11:30)
[2022-02-16 12:30] VITALS: BP 110/66
[2022-02-16 16:44] VITALS: BP 106/64
[2022-02-16] MEDS: MAGNESIUM SULFATE 1GM/100ML 100 ML IV SCH ×2 (20:43→22:38)
[2022-02-16 22:00] VITALS: BP 109/62
[2022-02-17] MEDS: DOBUTamine 1000MCG/ML 250 ML IV SCH ×2 (03:41→15:45)
[2022-02-17 05:00] VITALS: BP 105/58
[2022-02-17 06:25] LABS: BUN/Creatinine Ratio 24.5; Calcium 9.1 mg/dL (8.5-10.1); Potassium 4.4 mmol/L (3.5-5.1)
[2022-02-17 09:00] VITALS: BP 106/56
[2022-02-17] MEDS ORDERED: DOBUTamine 1000MCG/ML 250 ML IV SCH (09:00)
[2022-02-17] MEDS: DOXYCYCLINE 100MG/250ML 250 ML IV SCH (09:56)
[2022-02-17] MEDS: BUMETANIDE 2.5mg/10ml (0.25 mg/ml) INJ IV SCH (09:56)
[2022-02-17] MEDS: ZINC SULFATE 220mg CAP or TAB PO SCH (09:57)
[2022-02-17] MEDS: THIAMINE HCL 100 MG TAB PO SCH (09:57)
[2022-02-17] MEDS ORDERED: POTA-220 PO (09:57)
[2022-02-17] MEDS: POTASSIUM CHL 20 Meq TABLET PO SCH ×2 (09:58→23:09)
[2022-02-17] MEDS: DIGOXIN 0.125 MG TAB PO SCH (09:59)
[2022-02-17] MEDS: BENAZEPRIL HCL 10 MG TAB PO SCH (09:59)
[2022-02-17] MEDS: MAGNESIUM OXIDE 400 MG TAB PO SCH (09:59)
[2022-02-17] MEDS: METOPROLOL SUCCINATE XL 50 MG TAB PO SCH (10:00)
[2022-02-17] MEDS ORDERED: BUMETANIDE 2.5mg/10ml (0.25 mg/ml) INJ IV SCH (10:00)
[2022-02-17] MEDS: RIVAROXABAN 10 MG TAB PO SCH (10:00)
[2022-02-17] MEDS: IVABRADINE 5 MG TAB PO SCH ×2 (10:00→23:11)
[2022-02-17] MEDS: ASCORBIC ACID 1,000 MG TAB PO SCH (10:00)
[2022-02-17] MEDS: VERICIGUAT 5 MG PO SCH (10:00)
[2022-02-17] MEDS: CHOLECALCIFEROL (VITD3) 2,000 UNIT CAP/TAB PO SCH (10:00)
[2022-02-17] MEDS: CYANOCOBALAMIN 500 MCG TAB PO SCH (10:00)
[2022-02-17] MEDS: BUDESONIDE (INHALATION) 180 MCG IH IN SCH ×2 (10:06→20:12)
[2022-02-17] MEDS: ALBUTEROL SULF HFA 90MCG INH 200DOSE IN PRN (10:06)
[2022-02-17 13:00] VITALS: BP 115/67
[2022-02-17 17:00] VITALS: BP 112/66
[2022-02-17 21:30] VITALS: BP 108/57
[2022-02-17] MEDS: DOXYCYCLINE 100 MG TAB/CAP PO SCH (23:08)
[2022-02-18] MEDS: DOBUTamine 1000MCG/ML 250 ML IV SCH ×2 (02:26→06:27)
[2022-02-18 05:00] VITALS: BP 105/58
[2022-02-18 09:00] VITALS: BP 115/64
[2022-02-18] MEDS: CHOLECALCIFEROL (VITD3) 2,000 UNIT CAP/TAB PO SCH (10:00)
[2022-02-18] MEDS: POTASSIUM CHL 20 Meq TABLET PO SCH (10:00)
[2022-02-18] MEDS: ASCORBIC ACID 1,000 MG TAB PO SCH (10:00)
[2022-02-18] MEDS: IVABRADINE 5 MG TAB PO SCH (10:00)
[2022-02-18] MEDS: DOXYCYCLINE 100 MG TAB/CAP PO SCH (10:00)
[2022-02-18] MEDS: BUMETANIDE 2.5mg/10ml (0.25 mg/ml) INJ IV SCH (10:00)
[2022-02-18] MEDS: VERICIGUAT 5 MG PO SCH (10:00)
[2022-02-18] MEDS: ZINC SULFATE 220mg CAP or TAB PO SCH (10:00)
[2022-02-18] MEDS: METOPROLOL SUCCINATE XL 50 MG TAB PO SCH (10:00)
[2022-02-18] MEDS: MAGNESIUM OXIDE 400 MG TAB PO SCH (10:00)
[2022-02-18] MEDS: RIVAROXABAN 10 MG TAB PO SCH (10:00)
[2022-02-18] MEDS: DIGOXIN 0.125 MG TAB PO SCH (10:00)
[2022-02-18] MEDS: BENAZEPRIL HCL 10 MG TAB PO SCH (10:00)
[2022-02-18 13:00] VITALS: BP 109/63
[2022-02-18 13:19] VITALS: BP 109/63
== END 2022-02-18 16:30 | disposition home or self-care (01) | DRG 177 ==
LOC: EDUNIT# 13:03 → EDBD 13:03 → ER 13:03 → TELE 14:35 → TELE-EAST 21:20
PROVIDERS: ADMIT Hospitalist; ATTEND Internal Medicine
DX: U07.1 COVID-19 (principal); I50.43 Acute on chronic combined systolic (congestive) and diastolic (congestive) heart failure; J12.82 Pneumonia due to coronavirus disease 2019; I47.2 Ventricular tachycardia; D68.4 Acquired coagulation factor deficiency; I82.621 Acute embolism and thrombosis of deep veins of right upper extremity; D68.69 Other thrombophilia; I42.0 Dilated cardiomyopathy; I48.0 Paroxysmal atrial fibrillation; R79.89 Other specified abnormal findings of blood chemistry; E78.5 Hyperlipidemia, unspecified; E11.51 Type 2 diabetes mellitus with diabetic peripheral angiopathy without gangrene; I11.0 Hypertensive heart disease with heart failure; I25.10 Atherosclerotic heart disease of native coronary artery without angina pectoris; I50.82 Biventricular heart failure; Z87.442 Personal history of urinary calculi; Z90.49 Acquired absence of other specified parts of digestive tract; I25.2 Old myocardial infarction; Z95.1 Presence of aortocoronary bypass graft; Z95.810 Presence of automatic (implantable) cardiac defibrillator; Z86.73 Personal history of transient ischemic attack (TIA), and cerebral infarction without residual deficits; Z88.8 Allergy status to other drugs, medicaments and biological substances
CPT/HCPCS: 36415; 71045; 80048; 80053; 80061; 80162; 80307; 81001; 82306; 82550; 82728; 83036; 83605; 83615; 83690; 83735; 83880; 84100; 84443; 84484; 84550; 85025; 85379; 85610; 85652; 85730; 86141; 87040; 87070; 87077; 87081; 87086; 87186; 87205; 93005; 94640; 96365; 96375; C9113; G0378; J1100; J3490

== ENCOUNTER → 2022-02-18 | Outpatient (CLI) | payer OTHER ==
[~2022-02-18] MED LIST changes: -CEPH500C PO; -IBUP400T22 PO; -MEGE40TA4 PO; -POTA10TA51 PO; -RIVA2.5T PO; -SACU1TAB PO; -TADA20TA48 PO; -TEMA30CA PO; -VITA1TAB10 PO
[2022-02-18 16:38] VITALS: BP 102/55
[2022-02-18 17:00] VITALS: BP 102/55
== END | disposition home or self-care (01) ==
LOC: CHF HDHVI 16:42
PROVIDERS: ATTEND Internal Medicine Cardiovascular Disease
DX: U07.1 COVID-19 (principal); I11.0 Hypertensive heart disease with heart failure; I50.9 Heart failure, unspecified; I25.5 Ischemic cardiomyopathy; I48.91 Unspecified atrial fibrillation
CPT/HCPCS: G0463; J1642

== ENCOUNTER → 2022-02-21 | Outpatient (CLI) | payer OTHER ==
[~2022-02-21] MED LIST changes: +CYANOCOBALAMIN (B-12) 1000 MCG/1 ML VIAL IM ONE; +CYANOCOBALAMIN (B-12) 1000 MCG/1 ML VIAL ONE
[2022-02-21 12:16] LABS: Magnesium 2.9 mg/dL (1.6-2.6); Potassium 4.5 mmol/L (3.5-5.1)
[2022-02-21 12:23] LABS: Basophils # (auto) 0 10 ^3/uL (0-0.2); Basophils % (auto) 0.5 % (0.0-2.0); Eosinophils # (auto) 0.1 10 ^3/uL (0-0.8); Eosinophils % (auto) 1.8 % (0.0-7.0); Hematocrit 37.6 % (41.0-53.0); Hemoglobin 12.7 g/dL (13.5-17.5); Lymphocytes # (auto) 0.8 10 ^3/uL (0.4-5.4); Lymphocytes % (auto) 18.8 % (10.0-50.0); Mean Corpuscular Hemoglobin 31.3 pg (28.0-32.0); Mean Corpuscular Hgb Conc. 33.8 g/dL (32.0-36.0); Mean Corpuscular Volume 92.5 fL (80.0-100.0); Monocytes # (auto) 0.5 10 ^3/uL (0-1.3); Monocytes % (auto) 11.5 % (0.0-12.0); Neutrophils # (auto) 2.8 10 ^3/uL (1.6-8.6); Neutrophils % (auto) 67.4 % (37.0-80.0); Nucleated Red Blood Cells % 0.1 %; Red Blood Cells 4.06 10^6/uL (4.5-5.90); Red Cell Distribution Width 14.8 % (11.8-14.3); White Blood Cell 4.2 10^3/uL (4.4-10.8)
[2022-02-21 14:10] VITALS: BP 114/72
== END | disposition home or self-care (01) ==
LOC: CHF HDHVI 10:22
PROVIDERS: ATTEND Internal Medicine Cardiovascular Disease
DX: I13.2 Hypertensive heart and chronic kidney disease with heart failure and with stage 5 chronic kidney disease, or end stage renal disease (principal); E11.22 Type 2 diabetes mellitus with diabetic chronic kidney disease; I50.42 Chronic combined systolic (congestive) and diastolic (congestive) heart failure; N18.6 End stage renal disease; I25.10 Atherosclerotic heart disease of native coronary artery without angina pectoris; D68.4 Acquired coagulation factor deficiency; I82.621 Acute embolism and thrombosis of deep veins of right upper extremity; I50.82 Biventricular heart failure; R07.9 Chest pain, unspecified; I42.0 Dilated cardiomyopathy; E78.5 Hyperlipidemia, unspecified; I25.2 Old myocardial infarction; R79.89 Other specified abnormal findings of blood chemistry; D68.69 Other thrombophilia; I48.0 Paroxysmal atrial fibrillation; J12.82 Pneumonia due to coronavirus disease 2019; E11.42 Type 2 diabetes mellitus with diabetic polyneuropathy; E11.319 Type 2 diabetes mellitus with unspecified diabetic retinopathy without macular edema; E11.51 Type 2 diabetes mellitus with diabetic peripheral angiopathy without gangrene; I25.5 Ischemic cardiomyopathy; R06.02 Shortness of breath; I47.2 Ventricular tachycardia; K21.9 Gastro-esophageal reflux disease without esophagitis; G81.91 Hemiplegia, unspecified affecting right dominant side; E03.9 Hypothyroidism, unspecified; F41.9 Anxiety disorder, unspecified; M17.12 Unilateral primary osteoarthritis, left knee; N19 Unspecified kidney failure; F31.9 Bipolar disorder, unspecified; R53.83 Other fatigue; E78.00 Pure hypercholesterolemia, unspecified; Z95.5 Presence of coronary angioplasty implant and graft; Z95.810 Presence of automatic (implantable) cardiac defibrillator; Z87.891 Personal history of nicotine dependence; Z85.46 Personal history of malignant neoplasm of prostate; Z85.038 Personal history of other malignant neoplasm of large intestine; Z86.73 Personal history of transient ischemic attack (TIA), and cerebral infarction without residual deficits; Z87.442 Personal history of urinary calculi; Z79.01 Long term (current) use of anticoagulants; Z79.82 Long term (current) use of aspirin; Z79.4 Long term (current) use of insulin; Z79.899 Other long term (current) drug therapy; Z99.2 Dependence on renal dialysis
CPT/HCPCS: 36415; 71046; 80048; 83735; 83880; 85025; 96372; G0463; J3420

== ENCOUNTER → 2022-03-03 | Outpatient (CLI) | payer OTHER ==
[~2022-03-03] MED LIST changes: +TESTOSTERONE CYPIONATE 200 MG/ML 1ML VIAL IM ONE
[2022-03-03 16:00] VITALS: BP 105/62
[2022-03-03 16:40] LABS: Basophils # (auto) 0.1 10 ^3/uL (0-0.2); Basophils % (auto) 1.6 % (0.0-2.0); Eosinophils # (auto) 0 10 ^3/uL (0-0.8); Eosinophils % (auto) 1.3 % (0.0-7.0); Hematocrit 37.7 % (41.0-53.0); Hemoglobin 12.8 g/dL (13.5-17.5); Lymphocytes # (auto) 0.7 10 ^3/uL (0.4-5.4); Lymphocytes % (auto) 20.2 % (10.0-50.0); Mean Corpuscular Hemoglobin 31.3 pg (28.0-32.0); Mean Corpuscular Hgb Conc. 33.9 g/dL (32.0-36.0); Mean Corpuscular Volume 92.4 fL (80.0-100.0); Monocytes # (auto) 0.5 10 ^3/uL (0-1.3); Monocytes % (auto) 13.6 % (0.0-12.0); Neutrophils # (auto) 2.3 10 ^3/uL (1.6-8.6); Neutrophils % (auto) 63.3 % (37.0-80.0); Nucleated Red Blood Cells % 0.1 %; Red Blood Cells 4.08 10^6/uL (4.5-5.90); White Blood Cell 3.6 10^3/uL (4.4-10.8)
[2022-03-03 16:47] LABS: Albumin 3.2 g/dL (3.4-5.0); Calcium 8.6 mg/dL (8.5-10.1); Potassium 4.4 mmol/L (3.5-5.1)
[2022-03-03 16:50] LABS: BUN/Creatinine Ratio 9.8; Bilirubin, Total 0.6 mg/dL (0.2-1.0); Total Protein 7.2 g/dL (6.4-8.2)
== END | disposition home or self-care (01) ==
LOC: CHF HDHVI 14:33
PROVIDERS: ATTEND Internal Medicine Cardiovascular Disease
DX: E29.1 Testicular hypofunction (principal); I13.2 Hypertensive heart and chronic kidney disease with heart failure and with stage 5 chronic kidney disease, or end stage renal disease; E11.22 Type 2 diabetes mellitus with diabetic chronic kidney disease; I50.42 Chronic combined systolic (congestive) and diastolic (congestive) heart failure; N18.6 End stage renal disease; I25.5 Ischemic cardiomyopathy; I25.10 Atherosclerotic heart disease of native coronary artery without angina pectoris; I25.2 Old myocardial infarction; I48.91 Unspecified atrial fibrillation; J44.9 Chronic obstructive pulmonary disease, unspecified; K21.9 Gastro-esophageal reflux disease without esophagitis; E11.51 Type 2 diabetes mellitus with diabetic peripheral angiopathy without gangrene; E11.319 Type 2 diabetes mellitus with unspecified diabetic retinopathy without macular edema; E11.42 Type 2 diabetes mellitus with diabetic polyneuropathy; E03.9 Hypothyroidism, unspecified; M17.12 Unilateral primary osteoarthritis, left knee; F41.9 Anxiety disorder, unspecified; F31.9 Bipolar disorder, unspecified; Z79.01 Long term (current) use of anticoagulants; Z79.4 Long term (current) use of insulin; Z79.82 Long term (current) use of aspirin; Z79.899 Other long term (current) drug therapy; Z87.891 Personal history of nicotine dependence; Z85.46 Personal history of malignant neoplasm of prostate; Z85.038 Personal history of other malignant neoplasm of large intestine; Z95.5 Presence of coronary angioplasty implant and graft; Z95.810 Presence of automatic (implantable) cardiac defibrillator; Z86.73 Personal history of transient ischemic attack (TIA), and cerebral infarction without residual deficits
CPT/HCPCS: 36415; 80053; 80162; 83880; 85025; 93005; 96372; G0463; J1071; J3420

== ENCOUNTER → 2022-03-18 | Outpatient (CLI) | payer OTHER ==
[~2022-03-18] MED LIST changes: -TESTOSTERONE CYPIONATE 200 MG/ML 1ML VIAL IM ONE
[2022-03-18 12:00] VITALS: BP 111/64
[2022-03-18 15:32] LABS: Hematocrit 40.5 % (41.0-53.0); Hemoglobin 13.8 g/dL (13.5-17.5); Mean Corpuscular Hemoglobin 30.7 pg (28.0-32.0); Mean Corpuscular Hgb Conc. 33.9 g/dL (32.0-36.0); Mean Corpuscular Volume 90.4 fL (80.0-100.0); Red Blood Cells 4.49 10^6/uL (4.5-5.90); Red Cell Distribution Width 15.1 % (11.8-14.3)
[2022-03-18 15:40] LABS: Basophils % (manual) 0 (0.0-2.0); Blast Cells 0; Metamyelocytes % 0; Myelocytes % 0; Promyelocytes % 0
[2022-03-18 15:45] LABS: Albumin 3.5 g/dL (3.4-5.0); Calcium 9.2 mg/dL (8.5-10.1); Magnesium 2.3 mg/dL (1.6-2.6); Potassium 4.2 mmol/L (3.5-5.1)
[2022-03-18 15:50] LABS: BUN/Creatinine Ratio 14.5; Bilirubin, Total 0.7 mg/dL (0.2-1.0); Total Protein 7.2 g/dL (6.4-8.2)
[2022-03-18 15:58] LABS: Prostate Specific Antigen 3.93 ng/mL (0.0-4.0)
[2022-03-18 17:19] LABS: Band Neutrophils % (manual) 2; Eosinophils % (manual) 4 (0-7); Lymphocytes % (manual) 24 (10.0-50.0); Monocytes % (manual) 16 (0-12); Reactive Lymphocytes 3
== END | disposition home or self-care (01) ==
LOC: CHF HDHVI 11:37
PROVIDERS: ATTEND Internal Medicine Cardiovascular Disease
DX: I13.2 Hypertensive heart and chronic kidney disease with heart failure and with stage 5 chronic kidney disease, or end stage renal disease (principal); E11.22 Type 2 diabetes mellitus with diabetic chronic kidney disease; I50.42 Chronic combined systolic (congestive) and diastolic (congestive) heart failure; N18.6 End stage renal disease; I25.5 Ischemic cardiomyopathy; I25.10 Atherosclerotic heart disease of native coronary artery without angina pectoris; I25.2 Old myocardial infarction; J44.9 Chronic obstructive pulmonary disease, unspecified; K21.9 Gastro-esophageal reflux disease without esophagitis; E11.42 Type 2 diabetes mellitus with diabetic polyneuropathy; E11.51 Type 2 diabetes mellitus with diabetic peripheral angiopathy without gangrene; E11.319 Type 2 diabetes mellitus with unspecified diabetic retinopathy without macular edema; E78.5 Hyperlipidemia, unspecified; E78.00 Pure hypercholesterolemia, unspecified; E03.9 Hypothyroidism, unspecified; M17.12 Unilateral primary osteoarthritis, left knee; F41.9 Anxiety disorder, unspecified; F31.9 Bipolar disorder, unspecified; Z79.4 Long term (current) use of insulin; Z79.01 Long term (current) use of anticoagulants; Z79.82 Long term (current) use of aspirin; Z79.899 Other long term (current) drug therapy; Z99.2 Dependence on renal dialysis; Z95.5 Presence of coronary angioplasty implant and graft; Z95.810 Presence of automatic (implantable) cardiac defibrillator; Z86.73 Personal history of transient ischemic attack (TIA), and cerebral infarction without residual deficits; Z85.46 Personal history of malignant neoplasm of prostate; Z85.038 Personal history of other malignant neoplasm of large intestine
CPT/HCPCS: 36415; 80053; 80162; 82607; 83735; 83880; 84153; 85007; 85027; 96372; G0463; J3420

== ENCOUNTER → 2022-03-30 | Outpatient (CLI) | payer OTHER ==
[~2022-03-30] MED LIST changes: -CYANOCOBALAMIN (B-12) 1000 MCG/1 ML VIAL IM ONE; -CYANOCOBALAMIN (B-12) 1000 MCG/1 ML VIAL ONE
[2022-03-30 08:39] VITALS: BP 124/73
[2022-03-30 10:16] LABS: Hematocrit 41.2 % (41.0-53.0); Hemoglobin 13.5 g/dL (13.5-17.5); Mean Corpuscular Hemoglobin 29.6 pg (28.0-32.0); Mean Corpuscular Hgb Conc. 32.8 g/dL (32.0-36.0); Mean Corpuscular Volume 90.2 fL (80.0-100.0); Red Blood Cells 4.57 10^6/uL (4.5-5.90); Red Cell Distribution Width 15.3 % (11.8-14.3); White Blood Cell 3.8 10^3/uL (4.4-10.8)
[2022-03-30 10:24] LABS: Band Neutrophils % (manual) 0; Basophils % (manual) 0 (0.0-2.0); Blast Cells 0; Metamyelocytes % 0; Myelocytes % 0; Promyelocytes % 0; Reactive Lymphocytes 0
[2022-03-30 10:36] LABS: Potassium 3.8 mmol/L (3.5-5.1)
[2022-03-30 10:43] LABS: Eosinophils % (manual) 4 (0-7); Lymphocytes % (manual) 28 (10.0-50.0); Monocytes % (manual) 21 (0-12)
[2022-03-30 10:49] LABS: Albumin 3.5 g/dL (3.4-5.0); BUN/Creatinine Ratio 14.9; Bilirubin, Total 0.7 mg/dL (0.2-1.0); Calcium 9.1 mg/dL (8.5-10.1); Magnesium 2.5 mg/dL (1.6-2.6); Total Protein 7.6 g/dL (6.4-8.2)
== END | disposition home or self-care (01) ==
LOC: CHF HDHVI 08:20
PROVIDERS: ATTEND Internal Medicine Cardiovascular Disease
DX: I11.0 Hypertensive heart disease with heart failure (principal); I50.23 Acute on chronic systolic (congestive) heart failure; I25.5 Ischemic cardiomyopathy
CPT/HCPCS: 36415; 80053; 83735; 83880; 85007; 85027; G0463; J1642

== ENCOUNTER → 2022-04-11 | Outpatient (CLI) | payer OTHER ==
[~2022-04-11] MED LIST changes: +CYANOCOBALAMIN (B-12) 1000 MCG/1 ML VIAL IM ONE; +CYANOCOBALAMIN (B-12) 1000 MCG/1 ML VIAL ONE; +TESTOSTERONE CYPIONATE 200 MG/ML 1ML VIAL IM ONE
[2022-04-11 08:43] VITALS: BP 116/71
[2022-04-11 11:52] LABS: Hematocrit 36.8 % (41.0-53.0); Hemoglobin 12.4 g/dL (13.5-17.5); Mean Corpuscular Hemoglobin 30.4 pg (28.0-32.0); Mean Corpuscular Hgb Conc. 33.8 g/dL (32.0-36.0); Mean Corpuscular Volume 89.7 fL (80.0-100.0); Red Cell Distribution Width 15.9 % (11.8-14.3); White Blood Cell 2.9 10^3/uL (4.4-10.8)
[2022-04-11 12:01] LABS: Basophils % (manual) 0 (0.0-2.0)
[2022-04-11 12:02] LABS: Blast Cells 0; Metamyelocytes % 0; Myelocytes % 0; Promyelocytes % 0; Reactive Lymphocytes 0
[2022-04-11 12:30] LABS: Potassium 3.9 mmol/L (3.5-5.1)
[2022-04-11 12:35] LABS: Albumin 3.2 g/dL (3.4-5.0); Bilirubin, Total 0.7 mg/dL (0.2-1.0); Calcium 8.8 mg/dL (8.5-10.1); Magnesium 2.9 mg/dL (1.6-2.6); Total Protein 6.6 g/dL (6.4-8.2)
[2022-04-11 14:25] LABS: Basophils # (auto) 0 10 ^3/uL (0-0.2); Basophils % (auto) 0.9 % (0.0-2.0); Eosinophils # (auto) 0.2 10 ^3/uL (0-0.8); Eosinophils % (auto) 5.3 % (0.0-7.0); Lymphocytes # (auto) 0.9 10 ^3/uL (0.4-5.4); Lymphocytes % (auto) 31.4 % (10.0-50.0); Monocytes # (auto) 0.5 10 ^3/uL (0-1.3); Neutrophils # (auto) 1.3 10 ^3/uL (1.6-8.6); Neutrophils % (auto) 45.4 % (37.0-80.0); Nucleated Red Blood Cells % 0.1 %
[2022-04-11 14:40] LABS: Band Neutrophils % (manual) 3; Lymphocytes % (manual) 33 (10.0-50.0)
[2022-04-11 14:41] LABS: Eosinophils % (manual) 4 (0-7); Monocytes % (manual) 16 (0-12)
== END | disposition home or self-care (01) ==
LOC: CHF HDHVI 07:51
PROVIDERS: ATTEND Internal Medicine Cardiovascular Disease
DX: I50.23 Acute on chronic systolic (congestive) heart failure (principal)
CPT/HCPCS: 36415; 80053; 80162; 83735; 83880; 85007; 85027; 96372; G0463; J1071; J1642; J3420

== ENCOUNTER → 2022-05-11 | Outpatient (CLI) | payer OTHER ==
[2022-05-11 09:08] VITALS: BP 127/67
[2022-05-11 11:53] LABS: Basophils # (auto) 0 10 ^3/uL (0-0.2); Basophils % (auto) 1.2 % (0.0-2.0); Eosinophils # (auto) 0.1 10 ^3/uL (0-0.8); Eosinophils % (auto) 3.7 % (0.0-7.0); Hematocrit 37.5 % (41.0-53.0); Lymphocytes # (auto) 0.9 10 ^3/uL (0.4-5.4); Lymphocytes % (auto) 26.2 % (10.0-50.0); Mean Corpuscular Hemoglobin 29.1 pg (28.0-32.0); Mean Corpuscular Hgb Conc. 31.9 g/dL (32.0-36.0); Mean Corpuscular Volume 91.1 fL (80.0-100.0); Monocytes # (auto) 0.6 10 ^3/uL (0-1.3); Monocytes % (auto) 17.9 % (0.0-12.0); Neutrophils # (auto) 1.7 10 ^3/uL (1.6-8.6); Nucleated Red Blood Cells % 0.1 %; Red Blood Cells 4.11 10^6/uL (4.5-5.90); Red Cell Distribution Width 17.4 % (11.8-14.3); White Blood Cell 3.4 10^3/uL (4.4-10.8)
[2022-05-11 12:30] LABS: BUN/Creatinine Ratio 15.7; Calcium 8.9 mg/dL (8.5-10.1); Magnesium 2.7 mg/dL (1.6-2.6); Potassium 3.9 mmol/L (3.5-5.1)
== END | disposition home or self-care (01) ==
LOC: CHF HDHVI 08:19
PROVIDERS: ATTEND Internal Medicine Cardiovascular Disease
DX: I11.0 Hypertensive heart disease with heart failure (principal); I50.23 Acute on chronic systolic (congestive) heart failure; E29.1 Testicular hypofunction; I25.5 Ischemic cardiomyopathy; I25.10 Atherosclerotic heart disease of native coronary artery without angina pectoris
CPT/HCPCS: 36415; 80048; 83735; 83880; 85025; 94618; 96372; G0463; J1071; J1642; J3420

== ENCOUNTER → 2022-05-26 | Outpatient (CLI) | payer OTHER ==
[~2022-05-26] MED LIST changes: -TESTOSTERONE CYPIONATE 200 MG/ML 1ML VIAL IM ONE
[2022-05-26 10:05] VITALS: BP 115/70
[2022-05-26 12:49] LABS: Potassium 3.8 mmol/L (3.5-5.1)
== END | disposition home or self-care (01) ==
LOC: CHF HDHVI 09:29
PROVIDERS: ATTEND Internal Medicine Cardiovascular Disease
DX: I11.0 Hypertensive heart disease with heart failure (principal); I50.23 Acute on chronic systolic (congestive) heart failure; I25.10 Atherosclerotic heart disease of native coronary artery without angina pectoris; I25.5 Ischemic cardiomyopathy; R53.83 Other fatigue
CPT/HCPCS: 36415; 82565; 83880; 84132; 84520; 96372; J1642; J3420

== ENCOUNTER → 2022-06-01 | Outpatient (CLI) | payer OTHER ==
[~2022-06-01] MED LIST changes: -CYANOCOBALAMIN (B-12) 1000 MCG/1 ML VIAL IM ONE; -CYANOCOBALAMIN (B-12) 1000 MCG/1 ML VIAL ONE; +KETOROLAC TROMETH 30 MG/ML 1ML VIAL IV ONE; +KETOROLAC TROMETH 60MG/2ML VIAL IM ONE; +KETOROLAC TROMETH 60MG/2ML VIAL ONE
[2022-06-01 11:31] VITALS: BP 116/75
[2022-06-01 11:32] LABS: Hematocrit 38.2 % (41.0-53.0); Hemoglobin 12.3 g/dL (13.5-17.5); Mean Corpuscular Hgb Conc. 32.2 g/dL (32.0-36.0); Mean Corpuscular Volume 90.1 fL (80.0-100.0); Red Blood Cells 4.24 10^6/uL (4.5-5.90); White Blood Cell 3.3 10^3/uL (4.4-10.8)
[2022-06-01 12:27] LABS: Basophils % (manual) 0 (0.0-2.0); Blast Cells 0; Metamyelocytes % 0; Myelocytes % 0; Promyelocytes % 0
[2022-06-01 14:29] LABS: Band Neutrophils % (manual) 3; Eosinophils % (manual) 1 (0-7); Lymphocytes % (manual) 19 (10.0-50.0); Monocytes % (manual) 11 (0-12); Reactive Lymphocytes 3
== END | disposition home or self-care (01) ==
LOC: CHF HDHVI 10:26
PROVIDERS: ATTEND Internal Medicine Cardiovascular Disease
DX: M54.50 Low back pain, unspecified (principal); I11.0 Hypertensive heart disease with heart failure; I50.23 Acute on chronic systolic (congestive) heart failure; I25.10 Atherosclerotic heart disease of native coronary artery without angina pectoris; I25.5 Ischemic cardiomyopathy
CPT/HCPCS: 36415; 83880; 85007; 85027; 96372; 96374; G0463; J1642; J1885

== ENCOUNTER → 2022-06-22 | Outpatient (CLI) | payer OTHER ==
[~2022-06-22] MED LIST changes: +CYANOCOBALAMIN (B-12) 1000 MCG/1 ML VIAL IM ONE; +CYANOCOBALAMIN (B-12) 1000 MCG/1 ML VIAL ONE; -KETOROLAC TROMETH 30 MG/ML 1ML VIAL IV ONE; -KETOROLAC TROMETH 60MG/2ML VIAL IM ONE; -KETOROLAC TROMETH 60MG/2ML VIAL ONE
[2022-06-22] MEDS: SODIUM CHLORIDE 0.9% 250 ML IV SCH ×2 (10:16→12:46)
[2022-06-22 11:46] LABS: BUN/Creatinine Ratio 15.7; Calcium 9.1 mg/dL (8.5-10.1); Magnesium 2.8 mg/dL (1.6-2.6); Potassium 4.1 mmol/L (3.5-5.1)
[2022-06-22 11:53] VITALS: BP 113/75
== END | disposition home or self-care (01) ==
LOC: CHF HDHVI 10:15
PROVIDERS: ATTEND Internal Medicine Cardiovascular Disease
DX: I11.0 Hypertensive heart disease with heart failure (principal); I50.23 Acute on chronic systolic (congestive) heart failure; I25.10 Atherosclerotic heart disease of native coronary artery without angina pectoris; I25.5 Ischemic cardiomyopathy
CPT/HCPCS: 36415; 80048; 83735; 83880; 96360; 96361; 96372; G0463; J1642; J3420; J7050

== ENCOUNTER → 2022-07-04 | Outpatient (CLI) | payer OTHER ==
[~2022-07-04] MED LIST changes: -CYANOCOBALAMIN (B-12) 1000 MCG/1 ML VIAL IM ONE; -CYANOCOBALAMIN (B-12) 1000 MCG/1 ML VIAL ONE
[2022-07-04 10:43] VITALS: BP 120/71
[2022-07-04 11:31] LABS: Basophils # (auto) 0 10 ^3/uL (0-0.2); Basophils % (auto) 0.6 % (0.0-2.0); Eosinophils # (auto) 0.1 10 ^3/uL (0-0.8); Eosinophils % (auto) 1.7 % (0.0-7.0); Hematocrit 39.8 % (41.0-53.0); Lymphocytes # (auto) 1.1 10 ^3/uL (0.4-5.4); Lymphocytes % (auto) 33.6 % (10.0-50.0); Mean Corpuscular Hemoglobin 29.8 pg (28.0-32.0); Mean Corpuscular Hgb Conc. 32.6 g/dL (32.0-36.0); Mean Corpuscular Volume 91.5 fL (80.0-100.0); Monocytes # (auto) 0.6 10 ^3/uL (0-1.3); Neutrophils # (auto) 1.5 10 ^3/uL (1.6-8.6); Neutrophils % (auto) 47.1 % (37.0-80.0); Nucleated Red Blood Cells % 0.1 %; Red Blood Cells 4.35 10^6/uL (4.5-5.90); Red Cell Distribution Width 17.7 % (11.8-14.3); White Blood Cell 3.3 10^3/uL (4.4-10.8)
[2022-07-04 11:51] LABS: Potassium 3.9 mmol/L (3.5-5.1)
[2022-07-04 12:02] LABS: Albumin 3.6 g/dL (3.4-5.0); BUN/Creatinine Ratio 11.6; Bilirubin, Total 0.7 mg/dL (0.2-1.0); Calcium 8.8 mg/dL (8.5-10.1); Magnesium 2.8 mg/dL (1.6-2.6); Total Protein 7.2 g/dL (6.4-8.2)
== END | disposition home or self-care (01) ==
LOC: CHF HDHVI 10:17
PROVIDERS: ATTEND Internal Medicine Cardiovascular Disease
DX: I50.23 Acute on chronic systolic (congestive) heart failure (principal)
CPT/HCPCS: 36415; 80053; 83735; 83880; 85025; G0463; J1642

== ENCOUNTER 2022-07-21 08:32 | Day surgery (SDC) | payer OTHER ==
[2022-07-18 15:03] LABS: Basophils # (auto) 0 10 ^3/uL (0-0.2); Basophils % (auto) 1.3 % (0.0-2.0); Eosinophils # (auto) 0 10 ^3/uL (0-0.8); Eosinophils % (auto) 0.8 % (0.0-7.0); Hematocrit 42.3 % (41.0-53.0); Hemoglobin 13.7 g/dL (13.5-17.5); Lymphocytes # (auto) 1.1 10 ^3/uL (0.4-5.4); Lymphocytes % (auto) 34.2 % (10.0-50.0); Mean Corpuscular Hemoglobin 29.9 pg (28.0-32.0); Mean Corpuscular Hgb Conc. 32.3 g/dL (32.0-36.0); Mean Corpuscular Volume 92.6 fL (80.0-100.0); Monocytes # (auto) 0.6 10 ^3/uL (0-1.3); Monocytes % (auto) 17.8 % (0.0-12.0); Neutrophils # (auto) 1.5 10 ^3/uL (1.6-8.6); Neutrophils % (auto) 45.9 % (37.0-80.0); Nucleated Red Blood Cells % 0.1 %; Red Blood Cells 4.57 10^6/uL (4.5-5.90); Red Cell Distribution Width 16.8 % (11.8-14.3); White Blood Cell 3.2 10^3/uL (4.4-10.8)
[2022-07-18 15:16] LABS: Urine Amorphous Crystal FEW /hpf (None Seen); Urine Bacteria FEW /hpf (None Seen); Urine Blood Negative /uL (Negative); Urine Specific Gravity 1.006 (1.001-1.035); Urine WBC 1 /hpf (0 - 3)
[2022-07-18 15:35] LABS: Albumin 3.9 g/dL (3.4-5.0); Calcium 9.2 mg/dL (8.5-10.1); Potassium 4.2 mmol/L (3.5-5.1)
[2022-07-18 15:38] LABS: Bilirubin, Total 0.8 mg/dL (0.2-1.0); Total Protein 7.6 g/dL (6.4-8.2)
[2022-07-18 15:42] LABS: INR 1.17 (0.9-1.15); Partial Thromboplastin Time 31.2 sec (24.6-33.4)
[~2022-07-21] VITALS: Ht 180.3 cm; Wt 83.9 kg
[~2022-07-21 08:32] MED LIST changes: +CARI250T PO; +SACU1TAB PO
[2022-07-21] MEDS ORDERED: LIDOCAINE VISCOUS 2% 15ML UD ONE (09:35)
[2022-07-21] MEDS ORDERED: fentaNYL CITRATE 100 MCG/2 ML VL ONE (09:46)
[2022-07-21] MEDS ORDERED: MIDAZOLAM HCL 2MG/2ML 2ml VIAL (1mg/ml) ONE (09:46)
[2022-07-21] MEDS ORDERED: PROPOFOL 10 MG/ML 20 ML IV ONE (09:52)
[2022-07-21] MEDS ORDERED: DexAMETHasone SOD PHOS 10MG/1ML VIAL INJ ONE (09:52)
[2022-07-21 10:50] VITALS: BP 106/62
== END 2022-07-21 11:35 | disposition home or self-care (01) ==
LOC: GI 08:32
PROVIDERS: ATTEND Internal Medicine Gastroenterology
DX: R13.10 Dysphagia, unspecified (principal); K29.50 Unspecified chronic gastritis without bleeding; I50.9 Heart failure, unspecified; I20.9 Angina pectoris, unspecified; Z86.010 Personal history of colon polyps; Z95.5 Presence of coronary angioplasty implant and graft; Z98.890 Other specified postprocedural states; Z79.899 Other long term (current) drug therapy; Z20.822 Contact with and (suspected) exposure to COVID-19; Z88.8 Allergy status to other drugs, medicaments and biological substances; Z82.49 Family history of ischemic heart disease and other diseases of the circulatory system; Z80.8 Family history of malignant neoplasm of other organs or systems
CPT/HCPCS: 36415; 43239; 43245; 80053; 81001; 85025; 85610; 85730; 88305; 88342; J1100; J1642; J2250; J2704; J3010; J7030; U0003

== ENCOUNTER 2022-07-22 21:15 | Inpatient (IN) | payer OTHER ==
[~2022-07-22] VITALS: Ht 180.3 cm; Wt 81.6 kg
[2022-07-22 22:46] LABS: Basophils # (auto) 0 10 ^3/uL (0-0.2); Basophils % (auto) 0.1 % (0.0-2.0); Eosinophils # (auto) 0 10 ^3/uL (0-0.8); Hematocrit 38.2 % (41.0-53.0); Hemoglobin 12.4 g/dL (13.5-17.5); Lymphocytes # (auto) 0.2 10 ^3/uL (0.4-5.4); Lymphocytes % (auto) 2.8 % (10.0-50.0); Mean Corpuscular Hemoglobin 29.9 pg (28.0-32.0); Mean Corpuscular Hgb Conc. 32.5 g/dL (32.0-36.0); Mean Corpuscular Volume 92.2 fL (80.0-100.0); Monocytes # (auto) 0.2 10 ^3/uL (0-1.3); Monocytes % (auto) 1.9 % (0.0-12.0); Neutrophils # (auto) 8.1 10 ^3/uL (1.6-8.6); Neutrophils % (auto) 95.2 % (37.0-80.0); Red Blood Cells 4.15 10^6/uL (4.5-5.90); Red Cell Distribution Width 17.4 % (11.8-14.3); White Blood Cell 8.5 10^3/uL (4.4-10.8)
[2022-07-22 23:03] LABS: Albumin 3.2 g/dL (3.4-5.0); Calcium 8.8 mg/dL (8.5-10.1); Potassium 3.7 mmol/L (3.5-5.1)
[2022-07-22 23:04] LABS: Lactic Acid w/Reflex 3.3 mmol/L (0.4-2.0)
[2022-07-22 23:05] LABS: Bilirubin, Total 0.6 mg/dL (0.2-1.0); Total Protein 6.2 g/dL (6.4-8.2)
[2022-07-22 23:07] LABS: Urine WBC None Seen /hpf (0 - 3)
[2022-07-22 23:15] LABS: Urine Bacteria FEW /hpf (None Seen); Urine Blood Negative /uL (Negative); Urine Specific Gravity 1.008 (1.001-1.035)
[2022-07-23] VITALS (52 sets, daily range): BP systolic 82–118; BP diastolic 39–55
[2022-07-23] MEDS ORDERED: AZITHROMYCIN 500MG/ 250ML 250 ML IV ONE (00:30)
[2022-07-23] MEDS ORDERED: cefTRIAXone SOD 1,000 MG VL IV ONE (00:30)
[2022-07-23] MEDS ORDERED: cefTRIAXone 1GM/50ML D5W 50 ML IV ONE (00:45)
[2022-07-23] MEDS ORDERED: SODIUM CHLORIDE 0.9% 1,000 ML IV ONE (03:00)
[2022-07-23] MEDS ORDERED: ACETAMINOPHEN 325 MG TAB PO PRN (03:30)
[2022-07-23] MEDS ORDERED: DOCUSATE SOD 100 MG CAP PO PRN (03:30)
[2022-07-23] MEDS ORDERED: ALBUMIN 25% 100 ML IV ONE (03:30)
[2022-07-23] MEDS ORDERED: HYDROcodone-ACET 5/325MG TAB PO PRN (03:30)
[2022-07-23] MEDS ORDERED: MORPHINE SULFATE INJ 2 MG/ml SYRG IV PRN (04:15)
[2022-07-23] MEDS ORDERED: NITROGLYCERIN 0.4 MG SL TAB SL PRN (04:15)
[2022-07-23] MEDS: NOREPINEPHRINE 8 MG/250ML KIT 250 ML IV SCH ×2 (04:20→14:46)
[2022-07-23] MEDS ORDERED: NOREPINEPHRINE 8 MG/250ML KIT 250 ML IV ONE (04:23)
[2022-07-23] MEDS: SODIUM CHLOR 0.9% PF (SALINE LOCK) 10ML VIAL/SYR IV SCH ×3 (06:10→21:31)
[2022-07-23 06:53] LABS: Hematocrit 37.4 % (41.0-53.0); Hemoglobin 12.1 g/dL (13.5-17.5); Mean Corpuscular Hemoglobin 30.3 pg (28.0-32.0); Mean Corpuscular Hgb Conc. 32.5 g/dL (32.0-36.0); Mean Corpuscular Volume 93.3 fL (80.0-100.0); Red Blood Cells 4.01 10^6/uL (4.5-5.90); Red Cell Distribution Width 17.1 % (11.8-14.3); White Blood Cell 22.8 10^3/uL (4.4-10.8)
[2022-07-23 07:22] LABS: Basophils % (manual) 0 (0.0-2.0); Blast Cells 0; Eosinophils % (manual) 0 (0-7); Metamyelocytes % 0; Myelocytes % 0; Promyelocytes % 0; Reactive Lymphocytes 0
[2022-07-23 08:00] LABS: Albumin 3.4 g/dL (3.4-5.0); Calcium 8.9 mg/dL (8.5-10.1); Potassium 3.5 mmol/L (3.5-5.1)
[2022-07-23 08:02] LABS: Lactic Acid w/Reflex 6.9 mmol/L (0.4-2.0)
[2022-07-23 08:03] LABS: BUN/Creatinine Ratio 8.7; Bilirubin, Total 0.7 mg/dL (0.2-1.0); Total Protein 6.3 g/dL (6.4-8.2)
[2022-07-23 09:03] LABS: Band Neutrophils % (manual) 9; Lymphocytes % (manual) 3 (10.0-50.0); Monocytes % (manual) 5 (0-12)
[2022-07-23] MEDS: cefTRIAXone 1GM/50ML D5W 50 ML IV SCH (09:48)
[2022-07-23] MEDS: CARVEDILOL 3.125 MG TAB PO SCH ×2 (10:00→21:31)
[2022-07-23] MEDS: DIGOXIN 0.25 MG TAB PO SCH (10:00)
[2022-07-23] MEDS ORDERED: AZITHROMYCIN 500MG/ 250ML 250 ML IV SCH (10:00)
[2022-07-23] MEDS: FUROSEMIDE 20 MG/2 ML VIAL IV SCH (10:42)
[2022-07-23] MEDS: APIXABAN 2.5 MG TAB PO SCH ×2 (11:58→21:31)
[2022-07-23] MEDS: PANTOPRAZOLE 40 MG/10 ML VIAL INJ IV SCH ×2 (12:02→21:30)
[2022-07-23] MEDS ORDERED: LINEZOLID 600MG/300ML 300 ML IV SCH (13:00)
[2022-07-23] MEDS ORDERED: VANCOMYCIN PER PHARMACY 0 MG IV SCH (13:30)
[2022-07-23] MEDS: VANCOMYCIN 1GM/250ML 250 ML IV SCH (14:34)
[2022-07-23] MEDS ORDERED: SODIUM CHLORIDE 0.9% 500 ML IV ONE (18:00)
[2022-07-23] MEDS: ONDANSETRON HCL 4 MG/2 ML VIAL IV PRN (20:53)
[2022-07-23] MEDS ORDERED: PATIENTS OWN MEDICATION (ZYVOX 600 MG) IV SCH (22:00)
[2022-07-24] VITALS (87 sets, daily range): BP systolic 93–132; BP diastolic 37–77
[2022-07-24] MEDS: NOREPINEPHRINE 8 MG/250ML KIT 250 ML IV SCH ×2 (03:06→08:06)
[2022-07-24 04:03] LABS: Hemoglobin 13.1 g/dL (13.5-17.5); Mean Corpuscular Hemoglobin 29.8 pg (28.0-32.0); Mean Corpuscular Hgb Conc. 31.9 g/dL (32.0-36.0); Mean Corpuscular Volume 93.2 fL (80.0-100.0); Red Cell Distribution Width 17.6 % (11.8-14.3)
[2022-07-24 04:07] LABS: White Blood Cell 40.4 10^3/uL (4.4-10.8)
[2022-07-24 04:09] LABS: Basophils % (manual) 0 (0.0-2.0); Blast Cells 0; Eosinophils % (manual) 0 (0-7); Metamyelocytes % 0; Myelocytes % 0; Promyelocytes % 0; Reactive Lymphocytes 0
[2022-07-24 04:14] LABS: Albumin 3.1 g/dL (3.4-5.0); Band Neutrophils % (manual) 10; Calcium 8.4 mg/dL (8.5-10.1); Lymphocytes % (manual) 3 (10.0-50.0); Monocytes % (manual) 9 (0-12); Potassium 4.8 mmol/L (3.5-5.1)
[2022-07-24 04:17] LABS: BUN/Creatinine Ratio 13.3; Total Protein 6.5 g/dL (6.4-8.2)
[2022-07-24] MEDS: SODIUM CHLOR 0.9% PF (SALINE LOCK) 10ML VIAL/SYR IV SCH ×3 (06:00→22:00)
[2022-07-24] MEDS: cefTRIAXone 1GM/50ML D5W 50 ML IV SCH (08:33)
[2022-07-24] MEDS: APIXABAN 2.5 MG TAB PO SCH ×2 (09:54→22:00)
[2022-07-24] MEDS: PANTOPRAZOLE 40 MG/10 ML VIAL INJ IV SCH ×2 (09:54→22:00)
[2022-07-24] MEDS: DIGOXIN 0.25 MG TAB PO SCH (09:54)
[2022-07-24] MEDS: FUROSEMIDE 20 MG/2 ML VIAL IV SCH (09:54)
[2022-07-24] MEDS: CARVEDILOL 3.125 MG TAB PO SCH ×2 (10:00→22:00)
[2022-07-24] MEDS: NOREPINEPHRINE BITARTRATE 16 MG in SODIUM CHL 0.9% 234 ML IV SCH (14:29)
[2022-07-24] MEDS: VANCOMYCIN 1GM/250ML 250 ML IV SCH (16:29)
[2022-07-25] VITALS (80 sets, daily range): BP systolic 82–141; BP diastolic 41–81
[2022-07-25] MEDS: NOREPINEPHRINE BITARTRATE 16 MG in SODIUM CHL 0.9% 234 ML IV SCH (00:53)
[2022-07-25 04:15] LABS: Albumin 2.8 g/dL (3.4-5.0); Calcium 8.2 mg/dL (8.5-10.1); Potassium 3.8 mmol/L (3.5-5.1)
[2022-07-25 04:18] LABS: BUN/Creatinine Ratio 17.5; Bilirubin, Total 0.7 mg/dL (0.2-1.0); Total Protein 6.3 g/dL (6.4-8.2)
[2022-07-25 04:41] LABS: Hematocrit 38.6 % (41.0-53.0); Hemoglobin 12.9 g/dL (13.5-17.5); Mean Corpuscular Hemoglobin 30.4 pg (28.0-32.0); Mean Corpuscular Hgb Conc. 33.3 g/dL (32.0-36.0); Mean Corpuscular Volume 91.3 fL (80.0-100.0); Red Blood Cells 4.23 10^6/uL (4.5-5.90); Red Cell Distribution Width 17.4 % (11.8-14.3); White Blood Cell 25.9 10^3/uL (4.4-10.8)
[2022-07-25 04:45] LABS: Basophils % (manual) 0 (0.0-2.0); Blast Cells 0; Metamyelocytes % 0; Myelocytes % 0; Promyelocytes % 0; Reactive Lymphocytes 0
[2022-07-25] MEDS: SODIUM CHLOR 0.9% PF (SALINE LOCK) 10ML VIAL/SYR IV SCH ×3 (06:00→22:00)
[2022-07-25] MEDS: cefTRIAXone 1GM/50ML D5W 50 ML IV SCH (09:03)
[2022-07-25] MEDS: CARVEDILOL 3.125 MG TAB PO SCH ×2 (10:00→22:00)
[2022-07-25] MEDS: DIGOXIN 0.25 MG TAB PO SCH (10:27)
[2022-07-25] MEDS: APIXABAN 2.5 MG TAB PO SCH ×2 (10:27→22:00)
[2022-07-25] MEDS: PANTOPRAZOLE 40 MG/10 ML VIAL INJ IV SCH ×2 (10:27→22:00)
[2022-07-25] MEDS: FUROSEMIDE 20 MG/2 ML VIAL IV SCH (10:27)
[2022-07-25 13:48] LABS: Band Neutrophils % (manual) 10; Eosinophils % (manual) 1 (0-7); Lymphocytes % (manual) 8 (10.0-50.0); Monocytes % (manual) 7 (0-12)
[2022-07-25] MEDS: VANCOMYCIN 1GM/250ML 250 ML IV SCH (14:52)
[2022-07-25] MEDS: CEFEPIME 1GM/ 50ML 50 ML IV SCH (22:00)
[2022-07-26] VITALS (92 sets, daily range): BP systolic 91–132; BP diastolic 46–75
[2022-07-26 04:08] LABS: Basophils # (auto) 0 10 ^3/uL (0-0.2); Basophils % (auto) 0.4 % (0.0-2.0); Eosinophils # (auto) 0.1 10 ^3/uL (0-0.8); Eosinophils % (auto) 0.9 % (0.0-7.0); Hematocrit 38.1 % (41.0-53.0); Hemoglobin 12.1 g/dL (13.5-17.5); Lymphocytes # (auto) 0.7 10 ^3/uL (0.4-5.4); Lymphocytes % (auto) 6.1 % (10.0-50.0); Mean Corpuscular Hemoglobin 29.7 pg (28.0-32.0); Mean Corpuscular Hgb Conc. 31.8 g/dL (32.0-36.0); Mean Corpuscular Volume 93.6 fL (80.0-100.0); Monocytes # (auto) 0.6 10 ^3/uL (0-1.3); Monocytes % (auto) 5.5 % (0.0-12.0); Neutrophils # (auto) 9.2 10 ^3/uL (1.6-8.6); Neutrophils % (auto) 87.1 % (37.0-80.0); Nucleated Red Blood Cells % 0.3 %; Red Blood Cells 4.07 10^6/uL (4.5-5.90); Red Cell Distribution Width 17.4 % (11.8-14.3); White Blood Cell 10.6 10^3/uL (4.4-10.8)
[2022-07-26 04:26] LABS: BUN/Creatinine Ratio 17.2; Calcium 8.7 mg/dL (8.5-10.1); Potassium 3.7 mmol/L (3.5-5.1)
[2022-07-26] MEDS: SODIUM CHLOR 0.9% PF (SALINE LOCK) 10ML VIAL/SYR IV SCH ×3 (06:00→21:42)
[2022-07-26] MEDS: NOREPINEPHRINE BITARTRATE 16 MG in SODIUM CHL 0.9% 234 ML IV SCH (07:45)
[2022-07-26] MEDS: PANTOPRAZOLE 40 MG/10 ML VIAL INJ IV SCH ×2 (09:45→21:42)
[2022-07-26] MEDS: DIGOXIN 0.25 MG TAB PO SCH (09:46)
[2022-07-26] MEDS: APIXABAN 2.5 MG TAB PO SCH ×2 (09:46→21:41)
[2022-07-26] MEDS: CEFEPIME 1GM/ 50ML 50 ML IV SCH (09:47)
[2022-07-26] MEDS: FUROSEMIDE 20 MG/2 ML VIAL IV SCH (09:48)
[2022-07-26] MEDS: CARVEDILOL 3.125 MG TAB PO SCH ×2 (10:00→21:42)
[2022-07-26] MEDS ORDERED: POTASSIUM CHL 20 Meq TABLET PO ONE (11:00)
[2022-07-26] MEDS: MEROPENEM 1GM IVPB 100 ML IV SCH ×2 (11:56→19:15)
[2022-07-26] MEDS: VANCOMYCIN 1GM/250ML 250 ML IV SCH (16:53)
[2022-07-27] VITALS (71 sets, daily range): BP systolic 97–135; BP diastolic 24–91
[2022-07-27] MEDS: MEROPENEM 1GM IVPB 100 ML IV SCH ×3 (03:00→17:58)
[2022-07-27] MEDS: SODIUM CHLOR 0.9% PF (SALINE LOCK) 10ML VIAL/SYR IV SCH ×3 (06:00→21:36)
[2022-07-27] MEDS: NOREPINEPHRINE BITARTRATE 16 MG in SODIUM CHL 0.9% 234 ML IV SCH (07:18)
[2022-07-27] MEDS: CARVEDILOL 3.125 MG TAB PO SCH ×2 (08:33→21:36)
[2022-07-27] MEDS: PANTOPRAZOLE 40 MG/10 ML VIAL INJ IV SCH ×2 (09:11→21:36)
[2022-07-27] MEDS: FUROSEMIDE 20 MG/2 ML VIAL IV SCH (09:11)
[2022-07-27] MEDS: APIXABAN 2.5 MG TAB PO SCH ×2 (09:12→21:37)
[2022-07-27] MEDS: DIGOXIN 0.25 MG TAB PO SCH (09:12)
[2022-07-27] MEDS: VANCOMYCIN 1GM/250ML 250 ML IV SCH (13:00)
[2022-07-28] VITALS (28 sets, daily range): BP systolic 95–125; BP diastolic 50–75
[2022-07-28] MEDS: MEROPENEM 1GM IVPB 100 ML IV SCH ×3 (02:39→18:32)
[2022-07-28 03:33] LABS: Basophils # (auto) 0 10 ^3/uL (0-0.2); Basophils % (auto) 0.4 % (0.0-2.0); Eosinophils # (auto) 0.1 10 ^3/uL (0-0.8); Eosinophils % (auto) 1.6 % (0.0-7.0); Hematocrit 37.3 % (41.0-53.0); Hemoglobin 12.3 g/dL (13.5-17.5); Lymphocytes % (auto) 17.8 % (10.0-50.0); Mean Corpuscular Hemoglobin 30.5 pg (28.0-32.0); Mean Corpuscular Hgb Conc. 33.1 g/dL (32.0-36.0); Mean Corpuscular Volume 92.1 fL (80.0-100.0); Monocytes # (auto) 0.9 10 ^3/uL (0-1.3); Monocytes % (auto) 15.4 % (0.0-12.0); Neutrophils # (auto) 3.6 10 ^3/uL (1.6-8.6); Neutrophils % (auto) 64.8 % (37.0-80.0); Nucleated Red Blood Cells % 0.1 %; Red Blood Cells 4.05 10^6/uL (4.5-5.90); Red Cell Distribution Width 16.5 % (11.8-14.3); White Blood Cell 5.6 10^3/uL (4.4-10.8)
[2022-07-28 03:48] LABS: Albumin 2.6 g/dL (3.4-5.0); Calcium 8.8 mg/dL (8.5-10.1); Potassium 3.3 mmol/L (3.5-5.1)
[2022-07-28 03:52] LABS: BUN/Creatinine Ratio 17.2; Bilirubin, Total 0.7 mg/dL (0.2-1.0); Total Protein 5.8 g/dL (6.4-8.2)
[2022-07-28] MEDS: SODIUM CHLOR 0.9% PF (SALINE LOCK) 10ML VIAL/SYR IV SCH ×3 (06:24→21:55)
[2022-07-28] MEDS: NOREPINEPHRINE BITARTRATE 16 MG in SODIUM CHL 0.9% 234 ML IV SCH (07:45)
[2022-07-28] MEDS: VANCOMYCIN 1GM/250ML 250 ML IV SCH (09:20)
[2022-07-28] MEDS: PANTOPRAZOLE 40 MG/10 ML VIAL INJ IV SCH ×2 (09:51→21:55)
[2022-07-28] MEDS: CARVEDILOL 3.125 MG TAB PO SCH ×2 (09:52→21:55)
[2022-07-28] MEDS: DIGOXIN 0.25 MG TAB PO SCH (09:53)
[2022-07-28] MEDS: FUROSEMIDE 20 MG/2 ML VIAL IV SCH (09:53)
[2022-07-28] MEDS: APIXABAN 2.5 MG TAB PO SCH ×2 (09:53→21:55)
[2022-07-28] MEDS: POTASSIUM CHL 20MEQ/100ML 100 ML IV SCH ×3 (11:47→15:15)
[2022-07-28] MEDS: ONDANSETRON HCL 4 MG/2 ML VIAL IV PRN (14:46)
[2022-07-29] VITALS (18 sets, daily range): BP systolic 100–115; BP diastolic 51–74
[2022-07-29] MEDS: VANCOMYCIN 1GM/250ML 250 ML IV SCH ×2 (00:15→17:07)
[2022-07-29] MEDS: MEROPENEM 1GM IVPB 100 ML IV SCH ×3 (02:36→18:28)
[2022-07-29] MEDS: SODIUM CHLOR 0.9% PF (SALINE LOCK) 10ML VIAL/SYR IV SCH ×3 (06:23→21:41)
[2022-07-29] MEDS: NOREPINEPHRINE BITARTRATE 16 MG in SODIUM CHL 0.9% 234 ML IV SCH (07:45)
[2022-07-29 09:27] LABS: Hematocrit 39.9 % (41.0-53.0); Hemoglobin 12.8 g/dL (13.5-17.5); Mean Corpuscular Hemoglobin 29.6 pg (28.0-32.0); Mean Corpuscular Volume 92.6 fL (80.0-100.0); Red Blood Cells 4.31 10^6/uL (4.5-5.90); Red Cell Distribution Width 16.8 % (11.8-14.3); White Blood Cell 4.8 10^3/uL (4.4-10.8)
[2022-07-29 09:32] LABS: Basophils % (manual) 0 (0.0-2.0); Eosinophils % (manual) 0 (0-7)
[2022-07-29 09:33] LABS: Blast Cells 0; Myelocytes % 0; Promyelocytes % 0; Reactive Lymphocytes 0
[2022-07-29 09:51] LABS: BUN/Creatinine Ratio 20.5; Calcium 8.9 mg/dL (8.5-10.1)
[2022-07-29] MEDS: PANTOPRAZOLE 40 MG/10 ML VIAL INJ IV SCH ×2 (10:13→21:25)
[2022-07-29] MEDS: FUROSEMIDE 20 MG/2 ML VIAL IV SCH (10:16)
[2022-07-29] MEDS: APIXABAN 2.5 MG TAB PO SCH ×2 (10:16→21:24)
[2022-07-29] MEDS: DIGOXIN 0.25 MG TAB PO SCH (10:23)
[2022-07-29 10:50] LABS: Band Neutrophils % (manual) 5; Lymphocytes % (manual) 21 (10.0-50.0); Metamyelocytes % 4; Monocytes % (manual) 6 (0-12)
[2022-07-29] MEDS: CARVEDILOL 3.125 MG TAB PO SCH ×2 (11:58→21:25)
[2022-07-30] VITALS (18 sets, daily range): BP systolic 99–116; BP diastolic 53–73
[2022-07-30] MEDS: MEROPENEM 1GM IVPB 100 ML IV SCH ×2 (02:24→11:53)
[2022-07-30] MEDS: SODIUM CHLOR 0.9% PF (SALINE LOCK) 10ML VIAL/SYR IV SCH ×2 (05:13→14:06)
[2022-07-30] MEDS: NOREPINEPHRINE BITARTRATE 16 MG in SODIUM CHL 0.9% 234 ML IV SCH (07:45)
[2022-07-30] MEDS: CARVEDILOL 3.125 MG TAB PO SCH (09:35)
[2022-07-30] MEDS: PANTOPRAZOLE 40 MG/10 ML VIAL INJ IV SCH (09:35)
[2022-07-30] MEDS: APIXABAN 2.5 MG TAB PO SCH (09:35)
[2022-07-30] MEDS: VANCOMYCIN 1GM/250ML 250 ML IV SCH (09:36)
[2022-07-30] MEDS: FUROSEMIDE 20 MG/2 ML VIAL IV SCH (09:36)
[2022-07-30] MEDS: DIGOXIN 0.25 MG TAB PO SCH (09:37)
[2022-07-30] MEDS ORDERED: LEVO500T31 PO (16:05)
== END 2022-07-30 17:35 | disposition home or self-care (01) | DRG 314 ==
LOC: EDBD 21:15 → ER 21:15 → TELE 07-23 04:07 → ICU WEST 07-23 09:51
PROVIDERS: ADMIT Nurse Practitioner Family; ATTEND Internal Medicine Cardiovascular Disease
DX: T80.211A Bloodstream infection due to central venous catheter, initial encounter (principal); A41.9 Sepsis, unspecified organism; I50.23 Acute on chronic systolic (congestive) heart failure; R65.21 Severe sepsis with septic shock; E46 Unspecified protein-calorie malnutrition; D68.59 Other primary thrombophilia; I11.0 Hypertensive heart disease with heart failure; Z20.822 Contact with and (suspected) exposure to COVID-19; K29.70 Gastritis, unspecified, without bleeding; I25.5 Ischemic cardiomyopathy; E78.00 Pure hypercholesterolemia, unspecified; E87.6 Hypokalemia; E88.09 Other disorders of plasma-protein metabolism, not elsewhere classified; I25.10 Atherosclerotic heart disease of native coronary artery without angina pectoris; I48.91 Unspecified atrial fibrillation; Z82.49 Family history of ischemic heart disease and other diseases of the circulatory system; I25.2 Old myocardial infarction; Z86.73 Personal history of transient ischemic attack (TIA), and cerebral infarction without residual deficits; Z87.442 Personal history of urinary calculi; Z95.1 Presence of aortocoronary bypass graft; Z98.61 Coronary angioplasty status; Z88.8 Allergy status to other drugs, medicaments and biological substances
CPT/HCPCS: 36415; 36600; 71045; 80048; 80053; 80162; 80202; 81001; 82565; 82805; 83036; 83605; 83880; 84484; 85007; 85025; 85027; 87040; 87077; 87081; 87186; 93005; 96365; 96367; 97110; 97116; 97163; 97530; C9113; G0378; J0696; J2185; J2405; J3480; P9047

== ENCOUNTER → 2022-08-03 | Outpatient (CLI) | payer OTHER ==
[~2022-08-03] MED LIST changes: +CYANOCOBALAMIN (B-12) 1000 MCG/1 ML VIAL IM ONE; +CYANOCOBALAMIN (B-12) 1000 MCG/1 ML VIAL ONE; +FUROSEMIDE 100 MG/10ML VIAL IV ONE; +FUROSEMIDE 40 MG/4 ML VIAL ONE; +LEVO500T31 PO; +POTASSIUM CHL 20 Meq TABLET PO ONE
[2022-08-03 14:45] VITALS: BP 116/64
[2022-08-03 16:49] LABS: Calcium 8.9 mg/dL (8.5-10.1); Magnesium 2.4 mg/dL (1.6-2.6); Potassium 3.8 mmol/L (3.5-5.1)
[2022-08-03 16:52] LABS: BUN/Creatinine Ratio 11.5
== END | disposition home or self-care (01) ==
LOC: CHF HDHVI 13:57
PROVIDERS: ATTEND Internal Medicine Cardiovascular Disease
DX: I11.0 Hypertensive heart disease with heart failure (principal); I50.23 Acute on chronic systolic (congestive) heart failure; I25.10 Atherosclerotic heart disease of native coronary artery without angina pectoris; I25.2 Old myocardial infarction; I48.0 Paroxysmal atrial fibrillation; E78.00 Pure hypercholesterolemia, unspecified; Z86.73 Personal history of transient ischemic attack (TIA), and cerebral infarction without residual deficits; Z79.899 Other long term (current) drug therapy; Z95.1 Presence of aortocoronary bypass graft
CPT/HCPCS: 36415; 80048; 80162; 83735; 83880; 84403; 96372; 96374; G0463; J1642; J1940; J3420

== ENCOUNTER → 2022-08-05 | Outpatient (CLI) | payer OTHER ==
[~2022-08-05] MED LIST changes: +ALBUMIN 25% 100 ML IV ONE; +BUMETANIDE 2.5mg/10ml (0.25 mg/ml) INJ IV ONE; +BUMETANIDE INJECTION 20 ML ONE; -CYANOCOBALAMIN (B-12) 1000 MCG/1 ML VIAL IM ONE; -CYANOCOBALAMIN (B-12) 1000 MCG/1 ML VIAL ONE; +ENOXAPARIN SOD 30 MG/0.3 ML SYRINGE ONE; +ENOXAPARIN SOD 30 MG/0.3 ML SYRINGE SC ONE; -FUROSEMIDE 100 MG/10ML VIAL IV ONE; -FUROSEMIDE 40 MG/4 ML VIAL ONE; +METOPROLOL TARTRATE 25 MG TAB ONE; +METOPROLOL TARTRATE 25 MG TAB PO ONE
[2022-08-05 11:49] VITALS: BP 96/55
[2022-08-05 13:26] VITALS: BP 100/61
[2022-08-05 15:15] VITALS: BP 102/61
[2022-08-05 17:54] LABS: Hematocrit 38.8 % (41.0-53.0); Hemoglobin 12.3 g/dL (13.5-17.5); Mean Corpuscular Hemoglobin 29.1 pg (28.0-32.0); Mean Corpuscular Hgb Conc. 31.8 g/dL (32.0-36.0); Mean Corpuscular Volume 91.7 fL (80.0-100.0); Red Blood Cells 4.23 10^6/uL (4.5-5.90); Red Cell Distribution Width 16.6 % (11.8-14.3)
[2022-08-05 18:03] LABS: Band Neutrophils % (manual) 0; Basophils % (manual) 0 (0.0-2.0); Magnesium 2.2 mg/dL (1.6-2.6); Metamyelocytes % 0; Myelocytes % 0; Potassium 3.8 mmol/L (3.5-5.1)
[2022-08-05 18:04] LABS: Blast Cells 0; Promyelocytes % 0; Reactive Lymphocytes 0
[2022-08-05 18:31] LABS: Eosinophils % (manual) 1 (0-7); Lymphocytes % (manual) 29 (10.0-50.0); Monocytes % (manual) 13 (0-12)
== END | disposition home or self-care (01) ==
LOC: CHF HDHVI 10:39
PROVIDERS: ATTEND Internal Medicine Cardiovascular Disease
DX: I11.0 Hypertensive heart disease with heart failure (principal); I50.23 Acute on chronic systolic (congestive) heart failure; I70.212 Atherosclerosis of native arteries of extremities with intermittent claudication, left leg; I25.10 Atherosclerotic heart disease of native coronary artery without angina pectoris; E78.5 Hyperlipidemia, unspecified; I25.2 Old myocardial infarction; I48.0 Paroxysmal atrial fibrillation; E03.9 Hypothyroidism, unspecified; E78.00 Pure hypercholesterolemia, unspecified; Z95.1 Presence of aortocoronary bypass graft; Z86.73 Personal history of transient ischemic attack (TIA), and cerebral infarction without residual deficits; Z79.899 Other long term (current) drug therapy; Z88.8 Allergy status to other drugs, medicaments and biological substances
CPT/HCPCS: 36415; 82565; 83735; 83880; 84132; 84520; 85007; 85027; 93005; 96365; 96372; 96375; G0463; J1642; J1650; P9047

== ENCOUNTER 2022-08-07 08:47 | Inpatient (IN) | payer OTHER ==
[~2022-08-07] VITALS: Ht 180.3 cm; Wt 75.5 kg
[~2022-08-07 08:47] MED LIST changes: -ALBUMIN 25% 100 ML IV ONE; -BUMETANIDE 2.5mg/10ml (0.25 mg/ml) INJ IV ONE; -BUMETANIDE INJECTION 20 ML ONE; -ENOXAPARIN SOD 30 MG/0.3 ML SYRINGE ONE; -ENOXAPARIN SOD 30 MG/0.3 ML SYRINGE SC ONE; -METOPROLOL TARTRATE 25 MG TAB ONE; -METOPROLOL TARTRATE 25 MG TAB PO ONE; -POTASSIUM CHL 20 Meq TABLET PO ONE
[2022-08-07 10:52] LABS: Hematocrit 36.1 % (41.0-53.0); Hemoglobin 11.9 g/dL (13.5-17.5); Mean Corpuscular Hemoglobin 30.1 pg (28.0-32.0); Red Blood Cells 3.97 10^6/uL (4.5-5.90); Red Cell Distribution Width 16.6 % (11.8-14.3); White Blood Cell 3.2 10^3/uL (4.4-10.8)
[2022-08-07 11:03] LABS: Albumin 3.2 g/dL (3.4-5.0); Calcium 8.5 mg/dL (8.5-10.1); Potassium 4.1 mmol/L (3.5-5.1)
[2022-08-07 11:05] LABS: Band Neutrophils % (manual) 0; Basophils % (manual) 0 (0.0-2.0); Eosinophils % (manual) 0 (0-7); Metamyelocytes % 0; Myelocytes % 0; Promyelocytes % 0
[2022-08-07 11:06] LABS: BUN/Creatinine Ratio 13.2; Bilirubin, Total 1.1 mg/dL (0.2-1.0); Blast Cells 0; Reactive Lymphocytes 0; Total Protein 6.4 g/dL (6.4-8.2)
[2022-08-07] MEDS ORDERED: IOHEXOL 300 MG/ML 100ML BOTTLE IJ ONE (13:14)
[2022-08-07] MEDS ORDERED: LACTATED RINGER'S 1,000 ML IV ONE (13:15)
[2022-08-07 13:43] LABS: Urine Bacteria NONE SEEN /hpf (None Seen); Urine Blood Negative /uL (Negative); Urine Specific Gravity 1.008 (1.001-1.035); Urine WBC 3 /hpf (0 - 3)
[2022-08-07 16:12] LABS: Lymphocytes % (manual) 27 (10.0-50.0); Monocytes % (manual) 17 (0-12)
[2022-08-07] MEDS ORDERED: MORPHINE SULFATE INJ 2 MG/ml SYRG IV PRN ×2 (20:00→20:15)
[2022-08-07] MEDS ORDERED: DOBUTamine 1000MCG/ML 250 ML IV SCH ×2 (20:00→20:30)
[2022-08-07] MEDS ORDERED: NITROGLYCERIN 0.4 MG SL TAB SL PRN (20:00)
[2022-08-07 22:00] VITALS: BP 155/66
[2022-08-07] MEDS ORDERED: METOCLOPRAMIDE HCL 5MG/ml INJ 2ml VIAL IV SCH (22:00)
[2022-08-07] MEDS ORDERED: POTASSIUM CHL 20 Meq TABLET PO SCH (22:00)
[2022-08-07] MEDS ORDERED: FUROSEMIDE 40 MG/4 ML VIAL IV SCH (22:00)
[2022-08-07] MEDS ORDERED: AMIODARONE HCL 200 MG TAB PO SCH (22:00)
[2022-08-07] MEDS: AMIODARONE HCL 200 MG TAB PO SCH (23:32)
[2022-08-07] MEDS: METOCLOPRAMIDE HCL 5MG/ml INJ 2ml VIAL IV SCH (23:32)
[2022-08-07] MEDS: FUROSEMIDE 40 MG/4 ML VIAL IV SCH (23:32)
[2022-08-07] MEDS: POTASSIUM CHL 20 Meq TABLET PO SCH (23:33)
[2022-08-08] VITALS (7 sets, daily range): BP systolic 114–176; BP diastolic 63–85
[2022-08-08] MEDS: DOPamine 1600MCG/ML D5W 250 ML IV SCH (00:40)
[2022-08-08] MEDS: METOCLOPRAMIDE HCL 5MG/ml INJ 2ml VIAL IV SCH ×3 (06:46→21:43)
[2022-08-08] MEDS ORDERED: CLOPIDOGREL BISULFATE 75 MG TAB PO SCH (10:00)
[2022-08-08] MEDS: CLOPIDOGREL BISULFATE 75 MG TAB PO SCH (10:46)
[2022-08-08] MEDS: AMIODARONE HCL 200 MG TAB PO SCH (10:46)
[2022-08-08] MEDS: FUROSEMIDE 40 MG/4 ML VIAL IV SCH ×2 (10:46→21:43)
[2022-08-08] MEDS: POTASSIUM CHL 20 Meq TABLET PO SCH ×2 (10:47→21:44)
[2022-08-08] MEDS ORDERED: ALBUTEROL SULF 2.5 MG/0.5ML(0.5%) NEB SOLN NEB ONE (14:00)
[2022-08-08] MEDS ORDERED: ALBUTEROL SULF 2.5 MG/0.5ML(0.5%) NEB SOLN ONE (14:09)
[2022-08-08] MEDS ORDERED: READI-CAT 2 (BARIUM SULF)(VANILLA SMOOTHIE) 450ML ONE (14:30)
[2022-08-08] MEDS ORDERED: BARIUM SULFATE 98% 340 GM PWDR ONE (15:44)
[2022-08-08] MEDS ORDERED: IPRATROPIUM BROM 0.5 MG/2.5ML INH SOL NEB ONE (19:15)
[2022-08-08] MEDS ORDERED: methylPREDNISolone SOD SUCC 40 MG/ML VL IV ONE (19:15)
[2022-08-08] MEDS: methylPREDNISolone SOD SUCC 40 MG/ML VL IV SCH (21:43)
[2022-08-08] MEDS: TEMAZEPAM 15 MG CAP PO PRN (21:44)
[2022-08-08] MEDS: IPRATROPIUM BROM 0.5 MG/2.5ML INH SOL NEB SCH (22:40)
[2022-08-08] MEDS: ALBUTEROL SULF 2.5 MG/0.5ML(0.5%) NEB SOLN NEB SCH (22:40)
[2022-08-09] MEDS: DOPamine 1600MCG/ML D5W 250 ML IV SCH ×2 (00:15→20:13)
[2022-08-09 05:00] VITALS: BP 139/87
[2022-08-09] MEDS: METOCLOPRAMIDE HCL 5MG/ml INJ 2ml VIAL IV SCH ×3 (06:04→21:58)
[2022-08-09 09:00] VITALS: BP 143/87
[2022-08-09] MEDS: POTASSIUM CHL 20 Meq TABLET PO SCH ×2 (09:28→21:58)
[2022-08-09] MEDS: FUROSEMIDE 40 MG/4 ML VIAL IV SCH ×2 (09:28→20:20)
[2022-08-09] MEDS: CLOPIDOGREL BISULFATE 75 MG TAB PO SCH (09:29)
[2022-08-09] MEDS: methylPREDNISolone SOD SUCC 40 MG/ML VL IV SCH ×2 (09:35→20:21)
[2022-08-09] MEDS: IPRATROPIUM BROM 0.5 MG/2.5ML INH SOL NEB SCH ×2 (09:52→22:34)
[2022-08-09] MEDS: ALBUTEROL SULF 2.5 MG/0.5ML(0.5%) NEB SOLN NEB SCH ×2 (09:52→22:34)
[2022-08-09] MEDS: ALPRAZolam 0.25 MG TAB PO PRN (12:33)
[2022-08-09 13:00] VITALS: BP 162/96
[2022-08-09] MEDS ORDERED: VANCOMYCIN PER PHARMACY 0 MG IV SCH (14:15)
[2022-08-09] MEDS: VANCOMYCIN 1GM/250ML 250 ML IV SCH (15:14)
[2022-08-09 17:00] VITALS: BP 133/85
[2022-08-09] MEDS: LORazepam 2MG/ML-1ML VIAL IV PRN (18:12)
[2022-08-09 22:16] VITALS: BP 128/80
[2022-08-09] MEDS: TEMAZEPAM 15 MG CAP PO PRN (22:42)
[2022-08-10] MEDS: ALPRAZolam 0.25 MG TAB PO PRN ×3 (00:53→23:40)
[2022-08-10 05:30] VITALS: BP 129/97
[2022-08-10] MEDS: METOCLOPRAMIDE HCL 5MG/ml INJ 2ml VIAL IV SCH ×3 (06:00→22:00)
[2022-08-10 07:13] LABS: Potassium 4.9 mmol/L (3.5-5.1)
[2022-08-10 07:24] LABS: BUN/Creatinine Ratio 15.9; Calcium 8.7 mg/dL (8.5-10.1)
[2022-08-10 08:10] VITALS: BP 129/87
[2022-08-10] MEDS: IPRATROPIUM BROM 0.5 MG/2.5ML INH SOL NEB SCH ×2 (09:04→22:14)
[2022-08-10] MEDS: ALBUTEROL SULF 2.5 MG/0.5ML(0.5%) NEB SOLN NEB SCH ×2 (09:04→22:14)
[2022-08-10] MEDS: VANCOMYCIN 1GM/250ML 250 ML IV SCH (09:52)
[2022-08-10] MEDS: methylPREDNISolone SOD SUCC 40 MG/ML VL IV SCH ×2 (09:53→22:03)
[2022-08-10] MEDS: FUROSEMIDE 40 MG/4 ML VIAL IV SCH ×2 (09:53→22:10)
[2022-08-10] MEDS: CLOPIDOGREL BISULFATE 75 MG TAB PO SCH (09:54)
[2022-08-10] MEDS: POTASSIUM CHL 20 Meq TABLET PO SCH ×2 (09:54→22:00)
[2022-08-10] MEDS ORDERED: VANCOMYCIN 1GM/250ML 250 ML IV SCH (10:00)
[2022-08-10 13:00] VITALS: BP_SYST 117; BP_SYST 119; BP_DIAS 72; BP_DIAS 75
[2022-08-10] MEDS: LORazepam 2MG/ML-1ML VIAL IV PRN (16:36)
[2022-08-10 17:00] VITALS: BP 127/95
[2022-08-10 21:37] VITALS: BP 138/97
[2022-08-11] MEDS: DOPamine 1600MCG/ML D5W 250 ML IV SCH (02:55)
[2022-08-11] MEDS: VANCOMYCIN 1GM/250ML 250 ML IV SCH ×2 (02:55→22:53)
[2022-08-11 05:00] VITALS: BP 118/74
[2022-08-11] MEDS: METOCLOPRAMIDE HCL 5MG/ml INJ 2ml VIAL IV SCH ×3 (06:00→22:29)
[2022-08-11] MEDS: ALBUTEROL SULF 2.5 MG/0.5ML(0.5%) NEB SOLN NEB SCH ×2 (07:40→21:42)
[2022-08-11] MEDS: IPRATROPIUM BROM 0.5 MG/2.5ML INH SOL NEB SCH ×2 (07:40→21:42)
[2022-08-11 09:00] VITALS: BP 120/77
[2022-08-11] MEDS: CLOPIDOGREL BISULFATE 75 MG TAB PO SCH (10:00)
[2022-08-11] MEDS: methylPREDNISolone SOD SUCC 40 MG/ML VL IV SCH ×2 (10:00→22:29)
[2022-08-11] MEDS: POTASSIUM CHL 20 Meq TABLET PO SCH ×2 (10:00→22:00)
[2022-08-11] MEDS: FUROSEMIDE 40 MG/4 ML VIAL IV SCH ×2 (10:00→22:29)
[2022-08-11 10:25] VITALS: BP 118/74
[2022-08-11 13:00] VITALS: BP 127/79
[2022-08-11 16:54] VITALS: BP 123/84
[2022-08-11] MEDS: ALPRAZolam 0.25 MG TAB PO PRN (19:44)
[2022-08-11 22:00] VITALS: BP 124/68
[2022-08-11] MEDS: TEMAZEPAM 15 MG CAP PO PRN (22:51)
[2022-08-12 01:48] LABS: Calcium 8.7 mg/dL (8.5-10.1); Magnesium 1.9 mg/dL (1.6-2.6); Potassium 3.9 mmol/L (3.5-5.1)
[2022-08-12 05:00] VITALS: BP 98/60
[2022-08-12] MEDS: DOPamine 1600MCG/ML D5W 250 ML IV SCH ×2 (06:31→23:20)
[2022-08-12] MEDS: METOCLOPRAMIDE HCL 5MG/ml INJ 2ml VIAL IV SCH ×3 (06:31→21:37)
[2022-08-12] MEDS: ALBUTEROL SULF 2.5 MG/0.5ML(0.5%) NEB SOLN NEB SCH ×2 (07:22→22:01)
[2022-08-12] MEDS: IPRATROPIUM BROM 0.5 MG/2.5ML INH SOL NEB SCH ×2 (07:22→22:01)
[2022-08-12 09:00] VITALS: BP 123/86
[2022-08-12 10:20] LABS: Basophils # (auto) 0 10 ^3/uL (0-0.2); Basophils % (auto) 0.1 % (0.0-2.0); Eosinophils # (auto) 0.1 10 ^3/uL (0-0.8); Eosinophils % (auto) 0.5 % (0.0-7.0); Hematocrit 37.7 % (41.0-53.0); Hemoglobin 12.5 g/dL (13.5-17.5); Lymphocytes # (auto) 0.3 10 ^3/uL (0.4-5.4); Lymphocytes % (auto) 2.5 % (10.0-50.0); Mean Corpuscular Hemoglobin 30.4 pg (28.0-32.0); Mean Corpuscular Hgb Conc. 33.3 g/dL (32.0-36.0); Mean Corpuscular Volume 91.4 fL (80.0-100.0); Monocytes # (auto) 1.2 10 ^3/uL (0-1.3); Monocytes % (auto) 10.5 % (0.0-12.0); Neutrophils # (auto) 9.9 10 ^3/uL (1.6-8.6); Neutrophils % (auto) 86.4 % (37.0-80.0); Nucleated Red Blood Cells % 0.1 %; Red Blood Cells 4.13 10^6/uL (4.5-5.90); Red Cell Distribution Width 16.8 % (11.8-14.3); White Blood Cell 11.5 10^3/uL (4.4-10.8)
[2022-08-12] MEDS: CLOPIDOGREL BISULFATE 75 MG TAB PO SCH (10:53)
[2022-08-12] MEDS: methylPREDNISolone SOD SUCC 40 MG/ML VL IV SCH ×2 (10:54→21:38)
[2022-08-12] MEDS: POTASSIUM CHL 20 Meq TABLET PO SCH ×2 (10:54→21:38)
[2022-08-12] MEDS: FUROSEMIDE 40 MG/4 ML VIAL IV SCH ×2 (10:59→21:37)
[2022-08-12 13:00] VITALS: BP_SYST 105; BP_SYST 123; BP_DIAS 80; BP_DIAS 86
[2022-08-12] MEDS: VANCOMYCIN 1GM/250ML 250 ML IV SCH (14:36)
[2022-08-12 15:39] LABS: BUN/Creatinine Ratio 20.7; Calcium 9.3 mg/dL (8.5-10.1); Potassium 4.8 mmol/L (3.5-5.1)
[2022-08-12 16:41] VITALS: BP 134/84
[2022-08-12 21:32] VITALS: BP 147/97
[2022-08-12] MEDS: ALPRAZolam 0.25 MG TAB PO PRN (23:20)
[2022-08-13] MEDS ORDERED: KETOROLAC TROMETH 30 MG/ML 1ML VIAL IV ONE (02:00)
[2022-08-13 04:37] VITALS: BP 76/97
[2022-08-13] MEDS: METOCLOPRAMIDE HCL 5MG/ml INJ 2ml VIAL IV SCH ×3 (06:31→22:00)
[2022-08-13] MEDS: ALBUTEROL SULF 2.5 MG/0.5ML(0.5%) NEB SOLN NEB SCH ×2 (06:43→19:57)
[2022-08-13] MEDS: IPRATROPIUM BROM 0.5 MG/2.5ML INH SOL NEB SCH ×2 (06:43→19:57)
[2022-08-13 09:00] VITALS: BP 128/84
[2022-08-13 13:00] VITALS: BP 115/83
[2022-08-13] MEDS: methylPREDNISolone SOD SUCC 40 MG/ML VL IV SCH ×2 (13:10→22:43)
[2022-08-13] MEDS: POTASSIUM CHL 20 Meq TABLET PO SCH ×2 (13:10→20:26)
[2022-08-13] MEDS: CLOPIDOGREL BISULFATE 75 MG TAB PO SCH (13:10)
[2022-08-13] MEDS: VANCOMYCIN 1GM/250ML 250 ML IV SCH (13:11)
[2022-08-13] MEDS: FUROSEMIDE 40 MG/4 ML VIAL IV SCH ×2 (16:24→22:43)
[2022-08-13 17:00] VITALS: BP 112/71
[2022-08-13 20:00] VITALS: BP 128/84
[2022-08-13] MEDS: ALPRAZolam 0.25 MG TAB PO PRN (20:26)
[2022-08-13] MEDS: TEMAZEPAM 15 MG CAP PO PRN (21:07)
[2022-08-13 22:00] VITALS: BP 133/90
[2022-08-14] MEDS: DOPamine 1600MCG/ML D5W 250 ML IV SCH (00:15)
[2022-08-14] MEDS: VANCOMYCIN 1GM/250ML 250 ML IV SCH ×2 (03:00→21:08)
[2022-08-14 05:00] VITALS: BP 128/80
[2022-08-14] MEDS: METOCLOPRAMIDE HCL 5MG/ml INJ 2ml VIAL IV SCH ×3 (06:00→21:09)
[2022-08-14 07:55] VITALS: BP 120/84
[2022-08-14] MEDS: CLOPIDOGREL BISULFATE 75 MG TAB PO SCH ×2 (10:00→10:23)
[2022-08-14] MEDS: ALBUTEROL SULF 2.5 MG/0.5ML(0.5%) NEB SOLN NEB SCH ×2 (10:18→21:50)
[2022-08-14] MEDS: IPRATROPIUM BROM 0.5 MG/2.5ML INH SOL NEB SCH ×2 (10:18→21:50)
[2022-08-14] MEDS: POTASSIUM CHL 20 Meq TABLET PO SCH ×2 (10:23→19:52)
[2022-08-14] MEDS: methylPREDNISolone SOD SUCC 40 MG/ML VL IV SCH ×2 (10:23→21:09)
[2022-08-14] MEDS: FUROSEMIDE 40 MG/4 ML VIAL IV SCH ×2 (10:23→21:08)
[2022-08-14] MEDS ORDERED: KETOROLAC TROMETH 30 MG/ML 1ML VIAL IV PRN ×2 (11:00→11:45)
[2022-08-14 12:40] VITALS: BP 112/67
[2022-08-14 16:16] LABS: Basophils # (auto) 0 10 ^3/uL (0-0.2); Basophils % (auto) 0.1 % (0.0-2.0); Eosinophils # (auto) 0.1 10 ^3/uL (0-0.8); Eosinophils % (auto) 1.6 % (0.0-7.0); Hematocrit 41.8 % (41.0-53.0); Hemoglobin 13.7 g/dL (13.5-17.5); Lymphocytes # (auto) 0.9 10 ^3/uL (0.4-5.4); Lymphocytes % (auto) 11.1 % (10.0-50.0); Mean Corpuscular Hemoglobin 29.8 pg (28.0-32.0); Mean Corpuscular Hgb Conc. 32.7 g/dL (32.0-36.0); Mean Corpuscular Volume 91.1 fL (80.0-100.0); Monocytes # (auto) 0.9 10 ^3/uL (0-1.3); Monocytes % (auto) 11.6 % (0.0-12.0); Neutrophils # (auto) 6.2 10 ^3/uL (1.6-8.6); Neutrophils % (auto) 75.6 % (37.0-80.0); Nucleated Red Blood Cells % 0.2 %; Red Blood Cells 4.59 10^6/uL (4.5-5.90); Red Cell Distribution Width 16.5 % (11.8-14.3); White Blood Cell 8.1 10^3/uL (4.4-10.8)
[2022-08-14 16:20] VITALS: BP 113/85
[2022-08-14 16:34] LABS: Albumin 3.2 g/dL (3.4-5.0); Calcium 9.3 mg/dL (8.5-10.1); Potassium 4.6 mmol/L (3.5-5.1)
[2022-08-14 16:37] LABS: BUN/Creatinine Ratio 28.6; Bilirubin, Total 1.3 mg/dL (0.2-1.0); Total Protein 7.1 g/dL (6.4-8.2)
[2022-08-14] MEDS: ALPRAZolam 0.25 MG TAB PO PRN (19:52)
[2022-08-14 22:00] VITALS: BP 119/82
[2022-08-15] MEDS: TEMAZEPAM 15 MG CAP PO PRN (02:06)
[2022-08-15 05:00] VITALS: BP 134/93
[2022-08-15] MEDS: METOCLOPRAMIDE HCL 5MG/ml INJ 2ml VIAL IV SCH ×3 (05:00→21:38)
[2022-08-15] MEDS: DOPamine 1600MCG/ML D5W 250 ML IV SCH (05:08)
[2022-08-15 06:08] LABS: Albumin 3.1 g/dL (3.4-5.0); Calcium 8.7 mg/dL (8.5-10.1)
[2022-08-15 06:12] LABS: BUN/Creatinine Ratio 32.7; Phosphorus 4.5 mg/dL (2.5-4.90)
[2022-08-15 09:00] VITALS: BP 124/78
[2022-08-15] MEDS: FUROSEMIDE 40 MG/4 ML VIAL IV SCH ×2 (09:49→21:38)
[2022-08-15] MEDS: methylPREDNISolone SOD SUCC 40 MG/ML VL IV SCH ×2 (09:50→21:38)
[2022-08-15] MEDS: CLOPIDOGREL BISULFATE 75 MG TAB PO SCH (09:50)
[2022-08-15] MEDS: POTASSIUM CHL 20 Meq TABLET PO SCH ×2 (09:53→21:03)
[2022-08-15] MEDS: ALBUTEROL SULF 2.5 MG/0.5ML(0.5%) NEB SOLN NEB SCH ×2 (10:00→22:01)
[2022-08-15] MEDS: IPRATROPIUM BROM 0.5 MG/2.5ML INH SOL NEB SCH ×2 (10:00→22:01)
[2022-08-15 13:00] VITALS: BP 150/91
[2022-08-15] MEDS: VANCOMYCIN 1GM/250ML 250 ML IV SCH (15:13)
[2022-08-15 17:00] VITALS: BP 131/74
[2022-08-15] MEDS: ALPRAZolam 0.25 MG TAB PO PRN (19:38)
[2022-08-15 23:33] VITALS: BP 120/76
[2022-08-16] MEDS: DOPamine 1600MCG/ML D5W 250 ML IV SCH ×2 (00:03→16:50)
[2022-08-16] MEDS: METOCLOPRAMIDE HCL 5MG/ml INJ 2ml VIAL IV SCH ×3 (05:11→21:29)
[2022-08-16 05:47] VITALS: BP 145/93
[2022-08-16 09:00] VITALS: BP 128/74
[2022-08-16] MEDS: CLOPIDOGREL BISULFATE 75 MG TAB PO SCH (09:16)
[2022-08-16] MEDS: POTASSIUM CHL 20 Meq TABLET PO SCH ×2 (09:16→21:30)
[2022-08-16] MEDS: Ensure HIGH Protein Chocolate 8oz Bottle PO SCH ×3 (09:17→18:52)
[2022-08-16] MEDS: VANCOMYCIN 1GM/250ML 250 ML IV SCH (09:17)
[2022-08-16] MEDS: methylPREDNISolone SOD SUCC 40 MG/ML VL IV SCH ×2 (09:17→21:37)
[2022-08-16] MEDS: FUROSEMIDE 40 MG/4 ML VIAL IV SCH ×3 (09:18→21:37)
[2022-08-16] MEDS: IPRATROPIUM BROM 0.5 MG/2.5ML INH SOL NEB SCH ×2 (09:39→19:35)
[2022-08-16] MEDS: ALBUTEROL SULF 2.5 MG/0.5ML(0.5%) NEB SOLN NEB SCH ×2 (09:39→19:35)
[2022-08-16 13:00] VITALS: BP 125/78
[2022-08-16 17:20] VITALS: BP 143/84
[2022-08-16 22:00] VITALS: BP 116/73
[2022-08-17] MEDS: VANCOMYCIN 1GM/250ML 250 ML IV SCH ×2 (03:03→21:28)
[2022-08-17 05:00] VITALS: BP 108/50
[2022-08-17] MEDS: METOCLOPRAMIDE HCL 5MG/ml INJ 2ml VIAL IV SCH ×3 (05:41→21:33)
[2022-08-17] MEDS: ALBUTEROL SULF 2.5 MG/0.5ML(0.5%) NEB SOLN NEB SCH ×2 (06:52→20:49)
[2022-08-17] MEDS: IPRATROPIUM BROM 0.5 MG/2.5ML INH SOL NEB SCH ×2 (06:52→20:49)
[2022-08-17] MEDS: Ensure HIGH Protein Chocolate 8oz Bottle PO SCH ×3 (08:00→18:00)
[2022-08-17 08:18] VITALS: BP 110/69
[2022-08-17] MEDS ORDERED: POTASSIUM EFFERVESENT TAB 25 MEQ PO SCH (10:00)
[2022-08-17] MEDS ORDERED: POTASSIUM EFFERVESENT TAB 25 MEQ GT SCH (10:00)
[2022-08-17] MEDS: methylPREDNISolone SOD SUCC 40 MG/ML VL IV SCH ×2 (10:48→21:33)
[2022-08-17] MEDS: FUROSEMIDE 40 MG/4 ML VIAL IV SCH ×2 (10:48→18:33)
[2022-08-17] MEDS: CLOPIDOGREL BISULFATE 75 MG TAB PO SCH (10:49)
[2022-08-17 12:20] VITALS: BP 112/58
[2022-08-17 16:05] VITALS: BP 103/67
[2022-08-17 21:45] VITALS: BP 111/59
[2022-08-18] MEDS: DOPamine 1600MCG/ML D5W 250 ML IV SCH (01:52)
[2022-08-18 02:02] VITALS: BP 136/72
[2022-08-18 05:09] VITALS: BP 108/76
[2022-08-18] MEDS: METOCLOPRAMIDE HCL 5MG/ml INJ 2ml VIAL IV SCH ×2 (05:59→14:00)
[2022-08-18] MEDS: FUROSEMIDE 40 MG/4 ML VIAL IV SCH (06:01)
[2022-08-18] MEDS: Ensure HIGH Protein Chocolate 8oz Bottle PO SCH ×2 (08:00→12:00)
[2022-08-18] MEDS: IPRATROPIUM BROM 0.5 MG/2.5ML INH SOL NEB SCH (08:19)
[2022-08-18] MEDS: ALBUTEROL SULF 2.5 MG/0.5ML(0.5%) NEB SOLN NEB SCH (08:19)
[2022-08-18 09:00] VITALS: BP 93/70
[2022-08-18] MEDS: CLOPIDOGREL BISULFATE 75 MG TAB PO SCH (10:07)
[2022-08-18] MEDS: methylPREDNISolone SOD SUCC 40 MG/ML VL IV SCH (10:08)
[2022-08-18 13:00] VITALS: BP_SYST 107; BP_SYST 113; BP_DIAS 72; BP_DIAS 74
[2022-08-18] MEDS: VANCOMYCIN 1GM/250ML 250 ML IV SCH (16:05)
[2022-08-18 17:00] VITALS: BP 113/72
== END 2022-08-18 17:31 | disposition home health service (06) | DRG 314 ==
LOC: ER 08:47 → EDBD 08:47 → TELE 20:22 → TELE-WESTW 22:10
PROVIDERS: ADMIT Internal Medicine Cardiovascular Disease; ATTEND Internal Medicine Cardiovascular Disease
DX: T80.211A Bloodstream infection due to central venous catheter, initial encounter (principal); A41.9 Sepsis, unspecified organism; I49.01 Ventricular fibrillation; I25.110 Atherosclerotic heart disease of native coronary artery with unstable angina pectoris; I47.2 Ventricular tachycardia; Z20.822 Contact with and (suspected) exposure to COVID-19; I25.5 Ischemic cardiomyopathy; I48.0 Paroxysmal atrial fibrillation; M79.10 Myalgia, unspecified site; E03.9 Hypothyroidism, unspecified; I11.0 Hypertensive heart disease with heart failure; I25.119 Atherosclerotic heart disease of native coronary artery with unspecified angina pectoris; Y83.8 Other surgical procedures as the cause of abnormal reaction of the patient, or of later complication, without mention of misadventure at the time of the procedure; K52.9 Noninfective gastroenteritis and colitis, unspecified; K81.9 Cholecystitis, unspecified; Z86.73 Personal history of transient ischemic attack (TIA), and cerebral infarction without residual deficits; Z87.442 Personal history of urinary calculi; Z95.810 Presence of automatic (implantable) cardiac defibrillator; Y92.89 Other specified places as the place of occurrence of the external cause; I50.9 Heart failure, unspecified
CPT/HCPCS: 36415; 74177; 74250; 80048; 80053; 80069; 80202; 81001; 83735; 83880; 84132; 84484; 85007; 85025; 85027; 87040; 87081; 87426; 92610; 93005; 94640; 96360; 97110; 97116; 97163; 97530; G0378; J1885

== ENCOUNTER → 2022-08-22 | Outpatient (CLI) | payer OTHER ==
[2022-08-22] VITALS (8 sets, daily range): BP systolic 91–105; BP diastolic 54–65
[~2022-08-22] MED LIST changes: +BACITRACIN TOP OINT 1 UD PKG TOP ONE; +DOPamine 1600MCG/ML D5W 250 ML IV ONE
[2022-08-22 12:50] LABS: Basophils # (auto) 0 10 ^3/uL (0-0.2); Basophils % (auto) 0.4 % (0.0-2.0); Eosinophils # (auto) 0 10 ^3/uL (0-0.8); Eosinophils % (auto) 1.3 % (0.0-7.0); Hematocrit 40.6 % (41.0-53.0); Hemoglobin 13.1 g/dL (13.5-17.5); Lymphocytes % (auto) 26.9 % (10.0-50.0); Mean Corpuscular Hemoglobin 29.5 pg (28.0-32.0); Mean Corpuscular Hgb Conc. 32.3 g/dL (32.0-36.0); Mean Corpuscular Volume 91.5 fL (80.0-100.0); Monocytes # (auto) 0.5 10 ^3/uL (0-1.3); Monocytes % (auto) 12.6 % (0.0-12.0); Neutrophils # (auto) 2.2 10 ^3/uL (1.6-8.6); Neutrophils % (auto) 58.8 % (37.0-80.0); Nucleated Red Blood Cells % 0.2 %; Red Blood Cells 4.44 10^6/uL (4.5-5.90); Red Cell Distribution Width 16.1 % (11.8-14.3); White Blood Cell 3.8 10^3/uL (4.4-10.8)
[2022-08-22 13:02] LABS: Albumin 3.1 g/dL (3.4-5.0); Calcium 8.4 mg/dL (8.5-10.1); Magnesium 2.7 mg/dL (1.6-2.6); Potassium 4.2 mmol/L (3.5-5.1)
[2022-08-22 13:05] LABS: Total Protein 6.4 g/dL (6.4-8.2)
== END | disposition home or self-care (01) ==
LOC: CHF HDHVI 09:00
PROVIDERS: ATTEND Internal Medicine Cardiovascular Disease
DX: I11.0 Hypertensive heart disease with heart failure (principal); I50.23 Acute on chronic systolic (congestive) heart failure; I25.10 Atherosclerotic heart disease of native coronary artery without angina pectoris; E03.9 Hypothyroidism, unspecified; I48.0 Paroxysmal atrial fibrillation; I25.2 Old myocardial infarction; E78.00 Pure hypercholesterolemia, unspecified; Z79.899 Other long term (current) drug therapy; Z95.1 Presence of aortocoronary bypass graft; Z87.442 Personal history of urinary calculi; Z86.73 Personal history of transient ischemic attack (TIA), and cerebral infarction without residual deficits; Z95.810 Presence of automatic (implantable) cardiac defibrillator
CPT/HCPCS: 36415; 80053; 83735; 83880; 85025; 96365; 96366; G0463; J1265

== ENCOUNTER → 2022-08-24 | Outpatient (CLI) | payer OTHER ==
[2022-08-24] VITALS (10 sets, daily range): BP systolic 92–104; BP diastolic 59–67
[~2022-08-24] MED LIST changes: -BACITRACIN TOP OINT 1 UD PKG TOP ONE
== END | disposition home or self-care (01) ==
LOC: CHF HDHVI 09:59
PROVIDERS: ATTEND Internal Medicine Cardiovascular Disease
DX: I11.0 Hypertensive heart disease with heart failure (principal); I50.23 Acute on chronic systolic (congestive) heart failure; I25.5 Ischemic cardiomyopathy; I25.10 Atherosclerotic heart disease of native coronary artery without angina pectoris; E78.5 Hyperlipidemia, unspecified; I25.2 Old myocardial infarction; I48.0 Paroxysmal atrial fibrillation; E03.9 Hypothyroidism, unspecified; E78.00 Pure hypercholesterolemia, unspecified; I48.91 Unspecified atrial fibrillation; Z88.8 Allergy status to other drugs, medicaments and biological substances; Z86.73 Personal history of transient ischemic attack (TIA), and cerebral infarction without residual deficits; Z95.1 Presence of aortocoronary bypass graft; Z79.899 Other long term (current) drug therapy; Z98.890 Other specified postprocedural states
CPT/HCPCS: 96365; 96366; G0463; J1265

== ENCOUNTER → 2022-08-26 | Outpatient (CLI) | payer OTHER ==
[2022-08-26] VITALS (12 sets, daily range): BP systolic 88–116; BP diastolic 48–73
[~2022-08-26] MED LIST changes: +BACITRACIN TOP OINT 1 UD PKG TOP ONE; +LACTULOSE 20Gm/30ML SOLN PO ONE
== END | disposition home or self-care (01) ==
LOC: CHF HDHVI 10:33
PROVIDERS: ATTEND Internal Medicine Cardiovascular Disease
DX: I11.0 Hypertensive heart disease with heart failure (principal); I50.23 Acute on chronic systolic (congestive) heart failure; I25.5 Ischemic cardiomyopathy; R10.9 Unspecified abdominal pain; I25.10 Atherosclerotic heart disease of native coronary artery without angina pectoris; E78.5 Hyperlipidemia, unspecified; I25.2 Old myocardial infarction; I48.0 Paroxysmal atrial fibrillation; E03.9 Hypothyroidism, unspecified; E78.00 Pure hypercholesterolemia, unspecified; Z86.73 Personal history of transient ischemic attack (TIA), and cerebral infarction without residual deficits; Z79.899 Other long term (current) drug therapy; Z95.1 Presence of aortocoronary bypass graft; Z88.8 Allergy status to other drugs, medicaments and biological substances
CPT/HCPCS: 74018; 96365; 96366; G0463; J1265

== ENCOUNTER 2022-08-27 20:38 | Inpatient (IN) | payer OTHER ==
[~2022-08-27] VITALS: Ht 180.3 cm; Wt 77.6 kg
[~2022-08-27 20:38] MED LIST changes: -BACITRACIN TOP OINT 1 UD PKG TOP ONE; -DOPamine 1600MCG/ML D5W 250 ML IV ONE; -LACTULOSE 20Gm/30ML SOLN PO ONE
[2022-08-27] MEDS ORDERED: SODIUM CHLORIDE 0.9% 1,000 ML IV ONE (21:30)
[2022-08-27 22:36] LABS: Albumin 3.1 g/dL (3.4-5.0); Calcium 8.2 mg/dL (8.5-10.1)
[2022-08-27 22:38] LABS: BUN/Creatinine Ratio 25.6
[2022-08-27 22:41] LABS: Bilirubin, Total 0.9 mg/dL (0.2-1.0); Total Protein 5.7 g/dL (6.4-8.2)
[2022-08-27 22:42] LABS: Basophils # (auto) 0 10 ^3/uL (0-0.2); Basophils % (auto) 0.6 % (0.0-2.0); Eosinophils # (auto) 0 10 ^3/uL (0-0.8); Eosinophils % (auto) 1.1 % (0.0-7.0); Hematocrit 38.3 % (41.0-53.0); Hemoglobin 12.6 g/dL (13.5-17.5); Lymphocytes # (auto) 0.9 10 ^3/uL (0.4-5.4); Lymphocytes % (auto) 26.6 % (10.0-50.0); Mean Corpuscular Hemoglobin 29.8 pg (28.0-32.0); Mean Corpuscular Volume 90.4 fL (80.0-100.0); Monocytes # (auto) 0.7 10 ^3/uL (0-1.3); Neutrophils # (auto) 1.9 10 ^3/uL (1.6-8.6); Neutrophils % (auto) 53.1 % (37.0-80.0); Nucleated Red Blood Cells % 0.1 %; Red Blood Cells 4.24 10^6/uL (4.5-5.90); Red Cell Distribution Width 16.5 % (11.8-14.3); White Blood Cell 3.5 10^3/uL (4.4-10.8)
[2022-08-27 22:45] LABS: Monocytes % (auto) 18.6 % (0.0-12.0)
[2022-08-27] MEDS ORDERED: metroNIDAZOLE 500MG/100ML 100 ML IV ONE (23:00)
[2022-08-27] MEDS ORDERED: cefTRIAXone 1GM/50ML D5W 50 ML IV ONE (23:00)
[2022-08-27] MEDS ORDERED: ONDANSETRON HCL 4 MG/2 ML VIAL IV PRN (23:45)
[2022-08-27] MEDS ORDERED: NITROGLYCERIN 0.4 MG SL TAB SL PRN (23:45)
[2022-08-27] MEDS ORDERED: MORPHINE SULFATE INJ 2 MG/ml SYRG IV PRN (23:45)
[2022-08-27] MEDS ORDERED: DOCUSATE SOD 100 MG CAP PO PRN (23:45)
[2022-08-27] MEDS ORDERED: HYDROcodone-ACET 5/325MG TAB PO PRN (23:45)
[2022-08-27] MEDS ORDERED: ACETAMINOPHEN 325 MG TAB PO PRN (23:45)
[2022-08-28] MEDS: SODIUM CHLORIDE 0.9% 1,000 ML IV SCH ×2 (00:45→16:25)
[2022-08-28] MEDS: metroNIDAZOLE 500MG/100ML 100 ML IV SCH ×3 (05:38→21:50)
[2022-08-28 06:15] LABS: Hematocrit 35.2 % (41.0-53.0); Hemoglobin 11.9 g/dL (13.5-17.5); Mean Corpuscular Hemoglobin 30.3 pg (28.0-32.0); Mean Corpuscular Hgb Conc. 33.7 g/dL (32.0-36.0); Mean Corpuscular Volume 89.8 fL (80.0-100.0); Red Blood Cells 3.92 10^6/uL (4.5-5.90); Red Cell Distribution Width 16.9 % (11.8-14.3); White Blood Cell 3.3 10^3/uL (4.4-10.8)
[2022-08-28 06:23] LABS: Basophils % (manual) 0 (0.0-2.0); Blast Cells 0; Eosinophils % (manual) 0 (0-7); Metamyelocytes % 0; Myelocytes % 0; Promyelocytes % 0; Reactive Lymphocytes 0
[2022-08-28 06:27] LABS: Albumin 2.7 g/dL (3.4-5.0); Calcium 7.9 mg/dL (8.5-10.1); Potassium 3.6 mmol/L (3.5-5.1)
[2022-08-28 06:31] LABS: BUN/Creatinine Ratio 21.3; Bilirubin, Total 0.9 mg/dL (0.2-1.0); Total Protein 5.2 g/dL (6.4-8.2)
[2022-08-28 07:44] LABS: Band Neutrophils % (manual) 1; Lymphocytes % (manual) 32 (10.0-50.0); Monocytes % (manual) 16 (0-12)
[2022-08-28 09:00] VITALS: BP 98/59
[2022-08-28] MEDS ORDERED: FAMOTIDINE (10MG/ML) 2ML VL IV SCH (10:00)
[2022-08-28] MEDS: ZINC SULFATE 220mg CAP or TAB PO SCH (10:08)
[2022-08-28] MEDS: MULTIPLE VITAMIN TAB PO SCH (10:08)
[2022-08-28] MEDS: ASCORBIC ACID 500 MG TAB PO SCH ×2 (10:09→21:50)
[2022-08-28] MEDS: PANTOPRAZOLE 40 MG/10 ML VIAL INJ IV SCH ×2 (12:21→21:50)
[2022-08-28 13:00] VITALS: BP 101/63
[2022-08-28 17:00] VITALS: BP 98/63
[2022-08-28 22:00] VITALS: BP 106/70
[2022-08-29 05:01] VITALS: BP 101/50
[2022-08-29] MEDS: metroNIDAZOLE 500MG/100ML 100 ML IV SCH (05:30)
[2022-08-29] MEDS: SODIUM CHLORIDE 0.9% 1,000 ML IV SCH (07:30)
[2022-08-29 09:00] VITALS: BP 103/63
[2022-08-29] MEDS: ASCORBIC ACID 500 MG TAB PO SCH ×2 (09:58→22:00)
[2022-08-29] MEDS: ZINC SULFATE 220mg CAP or TAB PO SCH (09:58)
[2022-08-29] MEDS: MULTIPLE VITAMIN TAB PO SCH (09:58)
[2022-08-29] MEDS: PANTOPRAZOLE 40 MG/10 ML VIAL INJ IV SCH (09:59)
[2022-08-29] MEDS ORDERED: cefTRIAXone 1GM/50ML D5W 50 ML IV ONE (12:30)
[2022-08-29 13:00] VITALS: BP 99/65
[2022-08-29] MEDS ORDERED: LACTULOSE 20Gm/30ML SOLN PO PRN (15:45)
[2022-08-29 17:00] VITALS: BP 96/64
[2022-08-29 22:00] VITALS: BP 101/77
[2022-08-30 05:00] VITALS: BP 109/66
[2022-08-30 08:00] VITALS: BP 114/65
[2022-08-30] MEDS: PANTOPRAZOLE 40 MG TAB PO SCH (08:43)
[2022-08-30] MEDS: MULTIPLE VITAMIN TAB PO SCH (08:43)
[2022-08-30] MEDS: ZINC SULFATE 220mg CAP or TAB PO SCH (08:43)
[2022-08-30] MEDS: ASCORBIC ACID 500 MG TAB PO SCH ×2 (08:43→22:21)
[2022-08-30] MEDS ORDERED: cefTRIAXone 1GM/50ML D5W 50 ML IV SCH (09:00)
[2022-08-30 12:00] VITALS: BP 110/71
[2022-08-30] MEDS ORDERED: POTASSIUM EFFERVESENT TAB 25 MEQ PO ONE (14:00)
[2022-08-30] MEDS ORDERED: TESTOSTERONE CYPIONATE 200 MG/ML 1ML VIAL IM ONE (14:00)
[2022-08-30 16:00] VITALS: BP 103/78
[2022-08-30] MEDS ORDERED: METOPROLOL SUCCINATE XL 50 MG TAB PO SCH (18:00)
[2022-08-30] MEDS ORDERED: PATIENTS OWN MEDICATION (Metoprolol Succinate (Metoprolol Succinate Er) 1 TAB) PO SCH (18:00)
[2022-08-30] MEDS: IVABRADINE 5 MG TAB PO SCH (22:21)
[2022-08-30] MEDS: FUROSEMIDE 40 MG TAB PO SCH (22:22)
[2022-08-31 05:00] VITALS: BP 113/64
[2022-08-31 05:29] LABS: BUN/Creatinine Ratio 11.5; Calcium 8.3 mg/dL (8.5-10.1); Magnesium 2.3 mg/dL (1.6-2.6); Potassium 3.6 mmol/L (3.5-5.1)
[2022-08-31 08:00] VITALS: BP 108/69
[2022-08-31] MEDS: ZINC SULFATE 220mg CAP or TAB PO SCH (09:07)
[2022-08-31] MEDS: IVABRADINE 5 MG TAB PO SCH (09:08)
[2022-08-31] MEDS: PANTOPRAZOLE 40 MG TAB PO SCH (09:11)
[2022-08-31] MEDS: MULTIPLE VITAMIN TAB PO SCH (09:11)
[2022-08-31] MEDS: FUROSEMIDE 40 MG TAB PO SCH (09:11)
[2022-08-31] MEDS: ASCORBIC ACID 500 MG TAB PO SCH (09:11)
[2022-08-31] MEDS ORDERED: PATIENTS OWN MEDICATION (Magnesium Oxide 1 TAB) PO SCH (10:00)
[2022-08-31] MEDS ORDERED: RIVAROXABAN 10 MG TAB PO SCH (10:00)
[2022-08-31] MEDS ORDERED: SACUBITRIL-VALSARTAN 24mg/26mg TAB PO SCH (10:00)
[2022-08-31] MEDS ORDERED: LACTULOSE 20Gm/30ML SOLN PO SCH (10:00)
[2022-08-31] MEDS ORDERED: POTASSIUM CHL 20 Meq TABLET PO SCH (10:00)
[2022-08-31] MEDS ORDERED: MAGNESIUM OXIDE 400 MG TAB PO SCH (10:00)
[2022-08-31 12:00] VITALS: BP 109/70
[2022-08-31 16:00] VITALS: BP 110/65
[2022-08-31 17:18] VITALS: BP 110/65
== END 2022-08-31 17:55 | disposition home health service (06) | DRG 392 ==
LOC: ER 20:38 → EDBD 20:38 → OVERFLOW 23:45 → EAST 08-28 02:45
PROVIDERS: ADMIT Nurse Practitioner Family; ATTEND Internal Medicine Cardiovascular Disease
DX: K59.00 Constipation, unspecified (principal); I50.22 Chronic systolic (congestive) heart failure; K52.9 Noninfective gastroenteritis and colitis, unspecified; K62.89 Other specified diseases of anus and rectum; E88.09 Other disorders of plasma-protein metabolism, not elsewhere classified; K81.9 Cholecystitis, unspecified; Z20.822 Contact with and (suspected) exposure to COVID-19; E86.0 Dehydration; I25.5 Ischemic cardiomyopathy; E78.5 Hyperlipidemia, unspecified; I11.0 Hypertensive heart disease with heart failure; I25.10 Atherosclerotic heart disease of native coronary artery without angina pectoris; I48.0 Paroxysmal atrial fibrillation; Z86.73 Personal history of transient ischemic attack (TIA), and cerebral infarction without residual deficits; I25.2 Old myocardial infarction; Z88.8 Allergy status to other drugs, medicaments and biological substances; Z95.1 Presence of aortocoronary bypass graft
CPT/HCPCS: 36415; 71045; 74176; 80048; 80053; 83605; 83735; 84484; 85007; 85025; 85027; 87040; 96361; 96365; 96367; 97110; 97116; 97163; 97530; C9113; G0378; J0696; J1071; J2405; J3490

== ENCOUNTER → 2022-09-07 | Outpatient (CLI) | payer OTHER ==
[~2022-09-07] MED LIST changes: +BUMETANIDE 1mg/4ml VIAL (0.25mg/ml) ONE; +BUMETANIDE 2.5mg/10ml (0.25 mg/ml) INJ IV ONE; +POTASSIUM CHL 10 Meq TABLET PO ONE; +POTASSIUM CHL 20 Meq TABLET PO ONE
[2022-09-07 11:35] VITALS: BP 94/56
== END | disposition home or self-care (01) ==
LOC: CHF HDHVI 10:29
PROVIDERS: ATTEND Internal Medicine Cardiovascular Disease
DX: R60.9 Edema, unspecified (principal); I11.0 Hypertensive heart disease with heart failure; I50.23 Acute on chronic systolic (congestive) heart failure; I25.10 Atherosclerotic heart disease of native coronary artery without angina pectoris; E78.5 Hyperlipidemia, unspecified; E03.9 Hypothyroidism, unspecified; I25.2 Old myocardial infarction; I48.0 Paroxysmal atrial fibrillation; E78.00 Pure hypercholesterolemia, unspecified; Z88.8 Allergy status to other drugs, medicaments and biological substances; Z79.899 Other long term (current) drug therapy; Z87.442 Personal history of urinary calculi; Z95.810 Presence of automatic (implantable) cardiac defibrillator; Z86.73 Personal history of transient ischemic attack (TIA), and cerebral infarction without residual deficits; Z95.1 Presence of aortocoronary bypass graft
CPT/HCPCS: 96374; G0463; J3490

== ENCOUNTER → 2022-09-21 | Outpatient (CLI) | payer OTHER ==
[2022-09-21] VITALS (9 sets, daily range): BP systolic 98–126; BP diastolic 65–71
[~2022-09-21] MED LIST changes: -BUMETANIDE 1mg/4ml VIAL (0.25mg/ml) ONE; -BUMETANIDE 2.5mg/10ml (0.25 mg/ml) INJ IV ONE; +CYANOCOBALAMIN (B-12) 1000 MCG/1 ML VIAL IM ONE; +CYANOCOBALAMIN (B-12) 1000 MCG/1 ML VIAL ONE; +DOBUTamine 1000MCG/ML 250 ML IV ONE; +FUROSEMIDE 100 MG/10ML VIAL IV ONE; +FUROSEMIDE 20 MG/2 ML VIAL ONE; +FUROSEMIDE INJECTION 10 ML ONE; +cefTRIAXone 1GM/50ML D5W 50 ML IV ONE
[2022-09-21 17:16] LABS: Hematocrit 40.1 % (41.0-53.0); Hemoglobin 13.3 g/dL (13.5-17.5); Mean Corpuscular Hemoglobin 30.4 pg (28.0-32.0); Mean Corpuscular Hgb Conc. 33.1 g/dL (32.0-36.0); Mean Corpuscular Volume 91.7 fL (80.0-100.0); Red Blood Cells 4.37 10^6/uL (4.5-5.90); Red Cell Distribution Width 17.3 % (11.8-14.3); White Blood Cell 3.5 10^3/uL (4.4-10.8)
[2022-09-21 17:20] LABS: Basophils % (manual) 0 (0.0-2.0); Blast Cells 0; Eosinophils % (manual) 0 (0-7); Metamyelocytes % 0; Myelocytes % 0; Promyelocytes % 0
[2022-09-21 17:30] LABS: Albumin 3.5 g/dL (3.4-5.0); Calcium 9.1 mg/dL (8.5-10.1); Magnesium 2.9 mg/dL (1.6-2.6); Potassium 4.6 mmol/L (3.5-5.1)
[2022-09-21 17:33] LABS: BUN/Creatinine Ratio 15.5; Bilirubin, Total 1.3 mg/dL (0.2-1.0); Total Protein 6.6 g/dL (6.4-8.2)
[2022-09-21 20:27] LABS: Band Neutrophils % (manual) 1; Lymphocytes % (manual) 22 (10.0-50.0)
[2022-09-21 20:28] LABS: Monocytes % (manual) 20 (0-12); Reactive Lymphocytes 1
== END | disposition home or self-care (01) ==
LOC: CHF HDHVI 12:06
PROVIDERS: ATTEND Internal Medicine Cardiovascular Disease
DX: I11.0 Hypertensive heart disease with heart failure (principal); I50.23 Acute on chronic systolic (congestive) heart failure; I25.10 Atherosclerotic heart disease of native coronary artery without angina pectoris; E78.5 Hyperlipidemia, unspecified; E03.9 Hypothyroidism, unspecified; I25.2 Old myocardial infarction; I48.0 Paroxysmal atrial fibrillation; E78.00 Pure hypercholesterolemia, unspecified; Z95.1 Presence of aortocoronary bypass graft; Z95.810 Presence of automatic (implantable) cardiac defibrillator; Z86.73 Personal history of transient ischemic attack (TIA), and cerebral infarction without residual deficits; Z79.899 Other long term (current) drug therapy; Z88.8 Allergy status to other drugs, medicaments and biological substances
CPT/HCPCS: 36415; 80053; 83735; 83880; 85007; 85027; 96365; 96366; 96367; 96372; 96375; G0463; J0696; J1265; J1642; J1940; J3420

== ENCOUNTER 2022-09-26 12:15 | Inpatient (IN) | payer OTHER ==
[~2022-09-26] VITALS: Ht 182.9 cm; Wt 92.0 kg
[~2022-09-26 12:15] MED LIST changes: -CYANOCOBALAMIN (B-12) 1000 MCG/1 ML VIAL IM ONE; -CYANOCOBALAMIN (B-12) 1000 MCG/1 ML VIAL ONE; -DOBUTamine 1000MCG/ML 250 ML IV ONE; -FUROSEMIDE 100 MG/10ML VIAL IV ONE; -FUROSEMIDE 20 MG/2 ML VIAL ONE; -FUROSEMIDE INJECTION 10 ML ONE; -POTASSIUM CHL 10 Meq TABLET PO ONE; -POTASSIUM CHL 20 Meq TABLET PO ONE; -cefTRIAXone 1GM/50ML D5W 50 ML IV ONE
[2022-09-26 12:53] LABS: Hematocrit 39.5 % (41.0-53.0); Mean Corpuscular Hemoglobin 30.2 pg (28.0-32.0); Mean Corpuscular Hgb Conc. 32.8 g/dL (32.0-36.0); Red Blood Cells 4.29 10^6/uL (4.5-5.90); Red Cell Distribution Width 17.3 % (11.8-14.3); White Blood Cell 2.7 10^3/uL (4.4-10.8)
[2022-09-26 13:09] LABS: Albumin 3.3 g/dL (3.4-5.0); Calcium 8.6 mg/dL (8.5-10.1); Potassium 5.4 mmol/L (3.5-5.1)
[2022-09-26 13:11] LABS: Band Neutrophils % (manual) 0; Bilirubin, Total 1.1 mg/dL (0.2-1.0); Blast Cells 0; Metamyelocytes % 0; Myelocytes % 0; Promyelocytes % 0; Reactive Lymphocytes 0; Total Protein 6.2 g/dL (6.4-8.2)
[2022-09-26 13:20] LABS: BUN/Creatinine Ratio 14.6
[2022-09-26] MEDS ORDERED: SODIUM BICARBONATE 8.4% INJ 50ML SYRINGE IV ONE (14:00)
[2022-09-26] MEDS ORDERED: FUROSEMIDE 20 MG/2 ML VIAL IV ONE (14:00)
[2022-09-26] MEDS ORDERED: CALCIUM GLUC 1,000mg/50ml-NS 50 ML IV ONE (14:00)
[2022-09-26] MEDS ORDERED: SODIUM ZIRCONIUM CYCL 10 GM PAK PO ONE (14:00)
[2022-09-26 14:19] LABS: Basophils % (manual) 1 (0.0-2.0); Eosinophils % (manual) 2 (0-7); Lymphocytes % (manual) 39 (10.0-50.0); Monocytes % (manual) 15 (0-12)
[2022-09-26] MEDS ORDERED: NITROGLYCERIN 0.4 MG SL TAB SL PRN (19:15)
[2022-09-26] MEDS ORDERED: MILRINONE 20MG/100ML 100 ML IV SCH (19:15)
[2022-09-26] MEDS: MILRINONE 20MG/100ML 100 ML IV SCH (21:24)
[2022-09-26] MEDS: FUROSEMIDE 40 MG/4 ML VIAL IV SCH (22:03)
[2022-09-26] MEDS: CARVEDILOL 3.125 MG TAB PO SCH (22:03)
[2022-09-27] MEDS: MILRINONE 20MG/100ML 100 ML IV SCH ×2 (07:11→18:22)
[2022-09-27] MEDS: CARVEDILOL 3.125 MG TAB PO SCH ×2 (10:00→22:04)
[2022-09-27] MEDS: FUROSEMIDE 40 MG/4 ML VIAL IV SCH ×2 (10:00→22:04)
[2022-09-27] MEDS: DIGOXIN (250MCG/ML) 2 ML AMPULE IV SCH (10:00)
[2022-09-28] MEDS: MILRINONE 20MG/100ML 100 ML IV SCH ×2 (05:46→16:20)
[2022-09-28 09:00] VITALS: BP 107/55
[2022-09-28] MEDS: FUROSEMIDE 40 MG/4 ML VIAL IV SCH ×2 (11:06→21:17)
[2022-09-28] MEDS: DIGOXIN (250MCG/ML) 2 ML AMPULE IV SCH (11:07)
[2022-09-28] MEDS: CARVEDILOL 3.125 MG TAB PO SCH ×2 (11:08→21:17)
[2022-09-28 13:00] VITALS: BP 93/55
[2022-09-28 14:24] LABS: Basophils # (auto) 0 10 ^3/uL (0-0.2); Basophils % (auto) 0.7 % (0.0-2.0); Eosinophils # (auto) 0 10 ^3/uL (0-0.8); Eosinophils % (auto) 0.7 % (0.0-7.0); Hematocrit 37.3 % (41.0-53.0); Hemoglobin 12.3 g/dL (13.5-17.5); Lymphocytes # (auto) 0.6 10 ^3/uL (0.4-5.4); Lymphocytes % (auto) 15.6 % (10.0-50.0); Mean Corpuscular Hemoglobin 30.1 pg (28.0-32.0); Mean Corpuscular Hgb Conc. 32.9 g/dL (32.0-36.0); Mean Corpuscular Volume 91.7 fL (80.0-100.0); Monocytes # (auto) 0.6 10 ^3/uL (0-1.3); Monocytes % (auto) 16.3 % (0.0-12.0); Neutrophils # (auto) 2.4 10 ^3/uL (1.6-8.6); Neutrophils % (auto) 66.7 % (37.0-80.0); Nucleated Red Blood Cells % 0.2 %; Red Blood Cells 4.07 10^6/uL (4.5-5.90); Red Cell Distribution Width 17.2 % (11.8-14.3); White Blood Cell 3.7 10^3/uL (4.4-10.8)
[2022-09-28 14:33] LABS: BUN/Creatinine Ratio 17.3; Calcium 8.3 mg/dL (8.5-10.1); Potassium 3.4 mmol/L (3.5-5.1)
[2022-09-28 17:00] VITALS: BP 95/56
[2022-09-28] MEDS ORDERED: RIVAROXABAN 20 MG TAB PO SCH (18:00)
[2022-09-28] MEDS ORDERED: cefTRIAXone 1GM/50ML D5W 50 ML IV ONE (21:15)
[2022-09-29 05:00] VITALS: BP 111/61
[2022-09-29 09:00] VITALS: BP 111/69
[2022-09-29] MEDS: FUROSEMIDE 40 MG/4 ML VIAL IV SCH ×2 (09:43→22:18)
[2022-09-29] MEDS: CARVEDILOL 3.125 MG TAB PO SCH ×2 (09:44→22:17)
[2022-09-29] MEDS: DIGOXIN (250MCG/ML) 2 ML AMPULE IV SCH (09:45)
[2022-09-29] MEDS: cefTRIAXone 1GM/50ML D5W 50 ML IV SCH (09:46)
[2022-09-29 13:00] VITALS: BP 117/62
[2022-09-29 17:00] VITALS: BP 112/64
[2022-09-29] MEDS: RIVAROXABAN 15 MG TAB PO SCH (17:26)
[2022-09-29 20:00] VITALS: BP 127/78
[2022-09-29 22:00] VITALS: BP 127/78
[2022-09-30 05:00] VITALS: BP 113/60
[2022-09-30 08:00] VITALS: BP 111/60
[2022-09-30] MEDS: cefTRIAXone 1GM/50ML D5W 50 ML IV SCH (08:40)
[2022-09-30] MEDS: DIGOXIN (250MCG/ML) 2 ML AMPULE IV SCH (08:41)
[2022-09-30] MEDS: FUROSEMIDE 40 MG/4 ML VIAL IV SCH ×2 (08:42→21:56)
[2022-09-30] MEDS: CARVEDILOL 3.125 MG TAB PO SCH ×2 (08:42→21:57)
[2022-09-30 09:00] VITALS: BP 111/60
[2022-09-30 13:00] VITALS: BP 111/64
[2022-09-30 17:00] VITALS: BP 116/70
[2022-09-30] MEDS ORDERED: HALOPERIDOL LACTATE 5 MG/ML INJ VIAL IM PRN (17:15)
[2022-09-30] MEDS: Ensure HIGH Protein Chocolate 8oz Bottle PO SCH (18:28)
[2022-09-30] MEDS: RIVAROXABAN 15 MG TAB PO SCH (18:29)
[2022-09-30 21:45] VITALS: BP 110/64
[2022-10-01 01:01] LABS: Albumin 3.1 g/dL (3.4-5.0); BUN/Creatinine Ratio 15.6; Calcium 8.3 mg/dL (8.5-10.1)
[2022-10-01 01:04] LABS: Bilirubin, Total 1.1 mg/dL (0.2-1.0)
[2022-10-01 01:16] LABS: Potassium 2.8 mmol/L (3.5-5.1)
[2022-10-01 04:50] VITALS: BP 114/70
[2022-10-01] MEDS ORDERED: POTASSIUM CHL 20 Meq TABLET PO ONE (06:56)
[2022-10-01 09:00] VITALS: BP 109/63
[2022-10-01] MEDS: cefTRIAXone 1GM/50ML D5W 50 ML IV SCH (09:07)
[2022-10-01] MEDS: CARVEDILOL 3.125 MG TAB PO SCH (09:07)
[2022-10-01] MEDS: DIGOXIN (250MCG/ML) 2 ML AMPULE IV SCH (09:07)
[2022-10-01] MEDS: Ensure HIGH Protein Chocolate 8oz Bottle PO SCH (09:15)
[2022-10-01] MEDS: FUROSEMIDE 40 MG/4 ML VIAL IV SCH (09:17)
== END 2022-10-01 13:10 | disposition left against medical advice (07) | DRG 291 ==
LOC: EDBD 12:15 → ER 12:15 → TELE 19:25 → TELE-WESTW 09-28 09:30
PROVIDERS: ADMIT Internal Medicine Cardiovascular Disease; ATTEND Internal Medicine Cardiovascular Disease
DX: I11.0 Hypertensive heart disease with heart failure (principal); G93.41 Metabolic encephalopathy; I49.01 Ventricular fibrillation; I50.23 Acute on chronic systolic (congestive) heart failure; D68.59 Other primary thrombophilia; I24.9 Acute ischemic heart disease, unspecified; I47.20 Ventricular tachycardia, unspecified; E87.5 Hyperkalemia; I25.10 Atherosclerotic heart disease of native coronary artery without angina pectoris; I25.5 Ischemic cardiomyopathy; Z20.822 Contact with and (suspected) exposure to COVID-19; I48.0 Paroxysmal atrial fibrillation; K52.9 Noninfective gastroenteritis and colitis, unspecified; Z88.8 Allergy status to other drugs, medicaments and biological substances; Z79.2 Long term (current) use of antibiotics; Z87.442 Personal history of urinary calculi; Z86.73 Personal history of transient ischemic attack (TIA), and cerebral infarction without residual deficits; Z95.1 Presence of aortocoronary bypass graft; Z95.810 Presence of automatic (implantable) cardiac defibrillator; I25.2 Old myocardial infarction
CPT/HCPCS: 36415; 70450; 71045; 80048; 80053; 80162; 83880; 84484; 85007; 85025; 85027; 87426; 93005; 96365; 96375; 97163; G0378; J0696

== ENCOUNTER → 2022-10-07 | Outpatient (CLI) | payer OTHER ==
[2022-10-07 11:50] VITALS: BP 102/62
[2022-10-07 13:15] VITALS: BP 103/69
[2022-10-07 13:36] LABS: Basophils # (auto) 0 10 ^3/uL (0-0.2); Eosinophils # (auto) 0 10 ^3/uL (0-0.8); Hematocrit 37.7 % (41.0-53.0); Hemoglobin 12.4 g/dL (13.5-17.5); Lymphocytes # (auto) 0.9 10 ^3/uL (0.4-5.4); Lymphocytes % (auto) 28.9 % (10.0-50.0); Mean Corpuscular Hemoglobin 30.2 pg (28.0-32.0); Mean Corpuscular Hgb Conc. 32.9 g/dL (32.0-36.0); Mean Corpuscular Volume 91.8 fL (80.0-100.0); Monocytes # (auto) 0.5 10 ^3/uL (0-1.3); Monocytes % (auto) 16.6 % (0.0-12.0); Neutrophils # (auto) 1.6 10 ^3/uL (1.6-8.6); Neutrophils % (auto) 52.5 % (37.0-80.0); Nucleated Red Blood Cells % 0.2 %; Red Blood Cells 4.11 10^6/uL (4.5-5.90); Red Cell Distribution Width 17.1 % (11.8-14.3)
[2022-10-07 13:53] LABS: Calcium 8.6 mg/dL (8.5-10.1); Magnesium 2.6 mg/dL (1.6-2.6)
[2022-10-07 13:55] LABS: BUN/Creatinine Ratio 18.4
== END | disposition home or self-care (01) ==
LOC: CHF HDHVI 11:52
PROVIDERS: ATTEND Internal Medicine Cardiovascular Disease
DX: I50.23 Acute on chronic systolic (congestive) heart failure (principal)
CPT/HCPCS: 36415; 80048; 83735; 83880; 85025; G0463; J1642